=== PATIENT | female | born 1950 | race Caucasian/White ===

== ENCOUNTER → 2017-10-08 14:33 | Outpatient (CLI) | payer MEDICARE, SELFPAY ==
[2017-10-08 16:11] LABS: AST(SGOT) 20 U/L (15-37); Alanine Aminotransfer ALT/SGPT 29 U/L (13-56); Albumin, Serum 3.6 g/dL (3.2-5.0); Alkaline Phosphatase 128 U/L (45-117); Bilirubin, Direct 0.07 mg/dL (0.00-0.30); Cholesterol 209 mg/dL (200); Globulin 4.5 g/dL (2.2-4.2); High Density Lipoprotein 73 mg/dL; Protein, Total 8.1 g/dL (6.4-8.2); Triglycerides 96 mg/dL; Very Low Density Lipoprotein 19 mg/dL (5-40)
[2017-10-08 16:13] LABS: Hemoglobin A1c 5.5 % (4.2-6.3)
[2017-10-08 16:29] LABS: Microalbumin,Random Urine 5.8 mg/L (NO RANGE EST.); Microalbumin:Creatinine Ratio 27.1 mg/g CRE (<30 mg/g CRE)
== END ==
PROVIDERS: Family Provider Family Medicine; PCP Family Medicine; Visit Provider Family Medicine
DX: E11.9 Type 2 diabetes mellitus without complications (principal); I10 Essential (primary) hypertension
CPT/HCPCS: 36415; 80061; 80076; 82043; 82570; 83036

== ENCOUNTER 2017-10-14 15:57 | Emergency (ER) | payer MEDICARE, SELFPAY ==
[2017-10-14 15:58] VITALS: BP 160/87; PULSE 63; RESP 16; TEMP 36.4; O2SAT 97; BMI 51.8
--- NOTE | 2017-10-14 16:06 | VDLE_ITS ---
Reason For Study: LEG PAIN Procedure LEFT Exam performed portable in ED. GSV is normal. A preliminary report was called and/or faxed CFV is compressible, spontaneous, phasic, to Julieta Duran. competent, and demonstrates normal augmentation. FV is compressible, spontaneous, phasic, competent and demonstrates normal augmentation. POP V is compressible, spontaneous, phasic, competent and demonstrates normal augmentation. T/P Trunk is compressible. PTV is compressible. LT PerV is compressible. Interpretation Summary Deep veins of the left lower extremity are patent and compressible segmentally. There is no evidence of left lower extremity deep vein thrombosis. Valvular competence appears intact within the proximal deep venous system on the left . The left greater saphenous vein appears patent and compressible segmentally. Ordering Physician: William Rendon Referring Physician: Richa Daniels M.D. Performed By: Laila Velasco RVT
--- NOTE | 2017-10-14 16:45 | RAD_ITS ---
STUDY: X-RAY - LEFT KNEE REASON FOR EXAM: Female, 67 years old. Left knee pain. TECHNIQUE: 4 view(s) of the knee. COMPARISON: 03/22/2017. FINDINGS: Normal visualized distal femur. Normal visualized proximal tibia and fibula. Normal proximal tibiofibular articulation. There is no demonstrated fracture. Stable, satisfactory appearance of a total knee arthroplasty. No acute fracture, dislocation, or complication. There appears to be diffuse nonspecific soft tissue swelling including effusion. RAD/Knee 4 or More Views IMPRESSION: Soft tissue swelling and probable effusion. No acute fracture or dislocation. Electronically Signed: Black Grimaldo MD at 19:44 EDT , Service support ,
--- NOTE | 2017-10-14 16:45 | NURSING ---
NO LW OR POA
--- NOTE | 2017-10-14 17:01 | ED.DCSUM_ITS ---
- ER Visit Summary Date of Service: 10/14/17 Chief Complaint: Patient presents with left leg pain History of Present Illness: The patient is a 67 F who states that she began have pain in the left leg months ago. She states that she was attributed to a problem with her knee replacement. She states that now the leg is swollen. She states it hurts from the knee all the way down to her toes. She reports calling her doctor in being asked to come to the emergency room for duplex ultrasound. She states she has had a prior clot before. No recent trauma. She states she is allergic to all pain medications Physical Examination: Afebrile vital signs are stable Gen: Well-nourished well-developed Head: Normocephalic atraumatic Eyes: Perrl EOMI ENT: TMs clear no rhinorrhea moist mucous membranes Neck: Supple no lymphadenopathy no JVD nontender CVS: Regular rate rhythm no murmurs normal S1-S2 Respiratory: No distress clear to auscultation bilaterally chest nontender Abdomen: Soft nontender nondistended normal bowel sounds no masses Back: Nontender Extremity: Patient has significant adipose tissue of the bilateral legs. The ankles are of equal size bilaterally. There is no pitting edema. She has extensive varicosities but no cords. She complains of tenderness to palpation the knee inferiorly. There is a healed midline knee incision. Skin: Normal color no rash Neuro: alert orientated ?3 CN II-XII intact normal strength sensation reflexes Test Results: The films showed chronic changes. Duplex ultrasound was negative. Emergency Department Course and Treatment: She will be discharged home. Reassurance was given that we do not see a blood clot. Impression: 1. Left leg pain This note was generated with [employer] dictation software. It may contain incorrect words, spelling, and punctuation that were not noted in review of the chart prior to signing ED Disposition - Plan for ED Patient: Disposition: Home or Assisted Living Chief Complaint: Lower Extremity Injury Referrals: Richa Daniels MD [Primary Care Provider] - (call in am to arrange follow up appointment)
[2017-10-14 17:21] VITALS: BP 153/68; PULSE 58; RESP 16; O2SAT 94
== END 2017-10-14 17:21 | disposition home or self-care (01) ==
PROVIDERS: Emergency Provider Emergency Medicine; Family Provider Family Medicine; PCP Family Medicine
DX: M79.662 Pain in left lower leg (principal); I10 Essential (primary) hypertension; E78.00 Pure hypercholesterolemia, unspecified; J45.909 Unspecified asthma, uncomplicated; F32.9 Major depressive disorder, single episode, unspecified; F41.9 Anxiety disorder, unspecified; Z96.652 Presence of left artificial knee joint; Z79.01 Long term (current) use of anticoagulants; Z79.899 Other long term (current) drug therapy
CPT/HCPCS: 73564; 93971; 99284

== ENCOUNTER 2018-01-29 14:00 | Outpatient (RCR) | payer MEDICARE, SELFPAY ==
--- NOTE | 2017-10-16 11:31 | HP.PTEVAL_ITS ---
Patient's Visit Information SIERRA MORRISON is a 67 year old F referred to Physical Therapy by Richa Daniels MD with a diagnosis of OA. Date of Evaluation: 10/16/17 Physical Therapist: Miryam Osborn - Visit Plan Frequency: 2x /Week Duration: 6 Weeks Plan: 2X/ week for 6 weeks for AT for B hip and knee strength ( especially L), core stability, general mobility/strength, L knee ROM, gait training with HEP - Subjective Subjective: 20 years ago she had a L TKR and it slipped. She reports that she can not do the bike. It is painful all the time. She puts bengay on it and tylenol. She thinks that the swim therapy helped it last time and she could walk better and walk with a cane. She is not a surgery canidate. She had to stop swim therapy due to a hysterectomy. She reports that she has been on the walker for a long time. She reports that she does not do stairs. She has wide handicapped stairs that her walker fits on them at home. Her walking distance depends on the day/weather. She does all her housework except vaccum. She has a home health aide (3 hours homemaking and 2 showers a week). She would like to be able to get knee more limber and move better, lose weight, and get her whole body better. Pt has a lift chair. SHe has a roommate and they help each other. - Pain L knee pain Pain Intensity (Out of 10): 8 - Objective Gait: Walks with a front wheeled walker with WBOS, decreased heel to toe gait pattern, decreased stride length. LE MMT: hip flex B 2-/5, B knee ext 3+/5, B knee flex 4-/5, B hip abd 3+/5, able to do only a very small bridge and not even get off the ground completely. Pt struggles wtih sit to stand and needs her UE's to help her to stand. She struggles with rolling over from side to side. L knee AROM: -2 degrees from full extension to 75degrees L knee flexion. R knee AROM -2 degrees from full extension to 90 degrees R knee flexion. - Goals Goal 1:: I HEP Goal Time Frame: 4-6 Weeks Goal 2:: Decrease L knee pain to 2/10 with ADL's Goal Time Frame: 4-6 Weeks Goal 3:: Increase LE MMT by 1/2 muscle grade to decrease pain and increase ability to do ADL's Goal Time Frame: 4-6 Weeks - Rehabilitation Potential Rehabilitation Potential: Good - Anticipated Interventions Patient/Client Instruction: Educate patient on: Condition, Plan of Care For the Purpose of:: To decrease pain, To increase ROM, To improve nutrient delivery to tissue, To improve muscle performance and motor function, To improve ability to perform ADL's, To increase tolerance to activity/condition/ position, To improve performance and independence with ADL's, To improve ability of physical actions for home/community/work/leisure, To improve gait and locomotor functions, To improve health of tissue, To decrease soft tissue restriction, To increase flexibility/ROM Therapeutic Exercise to Include: Strength training, Endurance training, Flexibilty training, Gait and locomotor training, In an aquatic setting, Active ROM, Dynamic Lumbar Stabilization For the Purpose of:: To decrease pain, To decrease swelling/inflammation, To increase ROM, To improve nutrient delivery to tissue, To improve muscle performance and motor function, To improve ability to perform ADL's, To increase tolerance to activity/condition/position, To improve ability of physical actions for home/community/work/leisure, To improve gait and locomotor functions, To improve health of tissue, To decrease soft tissue restriction, To increase flexibility/ROM, To improve endurance, To improve safety with gait Thank you for the opportunity to evaluate your patient. For Medicare and Medicare HMO plans, please review the plan of care and approve it. It will need to be FAXED BACK to us at [phone] for Medicare purposes. Please let me know if there are questions or concerns regarding this plan of care. Physician Signature: Date:
--- NOTE | 2018-01-29 15:54 | HP.PTDCSUM_ITS ---
HP - PT D/C Summary It has been my pleasure to treat SIERRA MORRISON under orders from Richa Dnaiels MD, for the diagnosis of OA for a total of 10 visit(s). Discharge Date: 01/29/18 Please see the following information for a summary of their discharge status. 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 - Pain L knee pain Pain Intensity (Out of 10): 5 - Overall Improvement % Improvement: 100 - Objective Objective/Function: LE MMT: B Hip flex 4-/5, B knee ext 4-/5, B knee flex 4/5, seated hip abd B 4-/5. Gait: walks with a walker with flexed trunk, WBOS, shorter step lengthe and decrease stance time on the L LE - Goals Goal 1:: I HEP Goal Progress: Goal Met Goal 2:: Decrease L knee pain to 2/10 with ADL's Goal Progress: Progressing Goal 3:: Increase LE MMT by 1/2 muscle grade to decrease pain and increase ability to do ADL's Goal Progress: Progressing - Plan Plan: DC PT to [facility] to do I swimming. - D/C Information Discharge Comments: DC PT to [facility] AT If there are questions or concerns regarding this patient's physical therapy, please feel free to call me at [phone]. Thank you for the referral of this patient. Sincerely, Miryam Osborn
== END 2018-01-29 18:20 | disposition home or self-care (01) ==
LOC: PT 14:00
PROVIDERS: Family Provider Family Medicine; PCP Family Medicine; Visit Provider Family Medicine
DX: M19.90 Unspecified osteoarthritis, unspecified site (principal)
CPT/HCPCS: 97113; 97161; 97530

== ENCOUNTER → 2018-05-10 10:35 | Outpatient (CLI) | payer MEDICARE, SELFPAY ==
--- NOTE | 2018-05-10 10:37 | BI_ITS ---
MAMMOGRAPHY - BILATERAL SCREENING REASON FOR EXAM: Female, 68 years old. Routine annual screening examination. PERTINENT HISTORY: Sister with breast cancer. Remote right stereotactic breast biopsy. TECHNIQUE: Digital bilateral breast chanell (3D mammographic acquisition) in the CC and MLO projections. 2-D mediolateral oblique (MLO) and craniocaudad (CC) views of both breasts were obtained. CAD: Full Field Digital Mammography with Computer Added Detection was performed. COMPARISON: Comparison is made with prior study dated April 05, 2017 and April 03, 2016. FINDINGS: Breast Composition: The breasts are almost entirely fatty. There are no dominant masses or suspicious calcifications. No other significant abnormalities are identified. There has been no significant change since the prior study. BI/SCREENING MAMM (CAD), BILAT IMPRESSION: Stable bilateral screening mammogram. Yearly follow-up mammogram recommended. (A) ASSESSMENT CATEGORY: BIRADS Category 1: Negative. A letter regarding these results will be sent to the patient by the facility within 30 days. Approximately 10% of breast cancers are not detected by mammography. A normal mammogram should not delay biopsy of a clinically suspicious abnormality. [id number] Electronically Signed: Chapo Norman MD at 11:26 EST Tel [phone], Service support ,
--- OUTSIDE RECORDS SUMMARY | 2018-07-04 19:47 | XMS RPT_ITS ---
:1950 Author Organization OHIP Care Team Providers Name Role Phone Richa Daniels Attending Unavailable Richa Daniels Primary Care Unavailable Richa Daniels Attending Unavailable Jeremiah, Richa Primary Care Unavailable Richa Daniels Referring Unavailable Jeremiah, Richa Primary Care Unavailable William Rendon Attending Unavailable Panda Ulrich Attending Unavailable Panda Ulrich Referring Unavailable Richa Daniels Primary Care Unavailable PROBLEMS PROBLEMS DATE TYPE CONDITION / CODE ATTENDING STATUS SOURCE 01/29/2018 Unknown M19.90 - Richa Daniels Active [place] Unspecified Community osteoarthritis, Hospital unspecified site Repository / M19.90(ICD-10) PROCEDURES PROCEDURES No Procedure Records FoundRESULTS RESULTS SCREENING MAMM (CAD), Observed: 05/10/2018 Status: F Source: [place] BILAT 10:37 AM [facility] REPOSITORY [facility] Imaging Services [address] [place] [address] SCREENING MAMM (CAD), BILAT MR#: [id number] Acct: [id number] Name: ADRIENNE MORRISON Rep #: [id number] : 1950 F 68 From: Chapo Norman MD PCP: Richa Daniels MD Status: REG CLI Study: SCREENING MAMM (CAD), BILAT Date of Exam: 05/10/18 Exam# [id number] Ordering Dr: Panda Ulrich MD MAMMOGRAPHY - BILATERAL SCREENING REASON FOR EXAM: Female, 68 years old. Routine annual screening examination. PERTINENT HISTORY: Sister with breast cancer. Remote right stereotactic breast biopsy. TECHNIQUE: Digital bilateral breast chanell (3D mammographic acquisition) in the CC and MLO projections. 2-D mediolateral oblique (MLO) and craniocaudad (CC) views of both breasts were obtained. CAD: Full Field Digital Mammography with Computer Added Detection was performed. COMPARISON: Comparison is made with prior study dated April 05, 2017 and April 03, 2016. FINDINGS: Breast Composition: The breasts are almost entirely fatty. There are no dominant masses or suspicious calcifications. No other significant abnormalities are identified. There has been no significant change since the prior study. BI/SCREENING MAMM (CAD), BILAT IMPRESSION: Stable bilateral screening mammogram. Yearly follow-up mammogram recommended. (A) ASSESSMENT CATEGORY: BIRADS Category 1: Negative. A letter regarding these results will be sent to the patient by the facility within 30 days. Approximately 10% of breast cancers are not detected by mammography. A normal mammogram should not delay biopsy of a clinically suspicious abnormality. [id number] Electronically Signed: Chapo Norman MD at 11:26 EST Tel [phone], Service support , CC: Richa Daniels MD; Panda Ulrich MD Photoengraving Supervisor: Signed PT D/C SUMMARY (1) Observed: 01/29/2018 Status: F Source: [place] 6:17 PM [facility] [place] [facility] Physical Therapy Health[address] [place] [address] Fax REHABILITATION SERVICES DISCHARGE SUMMARY MR#: [id number] Acct: [id number] Name: ADRIENNE MORRISON Rep #: [id number] : 1950 67 From: Miryam ALSTON Referring Dr.: Richa Daniels MD Status: REG RCR Insurance: [facility] *IN NETWORK SELF PAY INSURANCE HP - PT D/C Summary It has been my pleasure to treat ADRIENNE MORRISON under orders from Richa Daniels MD, for the diagnosis of OA for a total of 10 visit(s). Discharge Date: 01/29/18 Please see the following information for a summary of their discharge status. 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 - Pain L knee pain Pain Intensity (Out of 10): 5 - Overall Improvement % Improvement: 100 - Objective Objective/Function: LE MMT: B Hip flex 4-/5, B knee ext 4- /5, B knee flex 4/5, seated hip abd B 4-/5. Gait: walks with a walker with flexed trunk, WBOS, shorter step lengthe and decrease stance time on the L LE - Goals Goal 1:: I HEP Goal Progress: Goal Met Goal 2:: Decrease L knee pain to 2/10 with ADL's Goal Progress: Progressing Goal 3:: Increase LE MMT by 1/2 muscle grade to decrease pain and increase ability to do ADL's Goal Progress: Progressing - Plan Plan: DC PT to [facility] to do I swimming. - D/C Information Discharge Comments: DC PT to [facility] AT If there are questions or concerns regarding this patient's physical therapy, please feel free to call me at [phone]. Thank you for the referral of this patient. Sincerely, Miryam Osborn <Electronically signed by Miryam Osborn MPT> 01/29/186 CC: Richa Daniels MD Signed INITAL EVALUATION (1) Observed: 10/16/2017 Status: F Source: [place] - [place] 12:52 PM [facility] [place] [facility] Physical Therapy Health[address] [place] [address] Fax REHABILITATION SERVICES INITIAL EVALUATION MR#: [id number] Acct: [id number] Name: ADRIENNE MORRISON Rep #: [id number] : 1950 67 From: Miryam Osborn MPT Referring Dr.: Richa Daniels MD Status: REG RCR Insurance: [facility] *IN NETWORK SELF PAY INSURANCE Patient's Visit Information ADRIENNE MORRISON is a 67 year old F referred to Physical Therapy by Richa Daniels MD with a diagnosis of OA. Date of Evaluation: 10/16/17 Physical Therapist: Miryam Osborn - Visit Plan Frequency: 2x /Week Duration: 6 Weeks Plan: 2X/ week for 6 weeks for AT for B hip and knee strength ( especially L), core stability, general mobility/strength, L knee ROM, gait training with HEP - Subjective Subjective: 20 years ago she had a L TKR and it slipped. She reports that she can not do the bike. It is painful all the time. She puts bengay on it and tylenol. She thinks that the swim therapy helped it last time and she could walk better and walk with a cane. She is not a surgery canidate. She had to stop swim therapy due to a hysterectomy. She reports that she has been on the walker for a long time. She reports that she does not do stairs. She has wide handicapped stairs that her walker fits on them at home. Her walking distance depends on the day/weather. She does all her housework except vaccum. She has a home health aide (3 hours homemaking and 2 showers a week). She would like to be able to get knee more limber and move better, lose weight, and get her whole body better. Pt has a lift chair. SHe has a roommate and they help each other. - Pain L knee pain Pain Intensity (Out of 10): 8 - Objective Gait: Walks with a front wheeled walker with WBOS, decreased heel to toe gait pattern, decreased stride length. LE MMT: hip flex B 2-/5, B knee ext 3+/5, B knee flex 4-/5, B hip abd 3+/5, able to do only a very small bridge and not even get off the ground completely. Pt struggles wtih sit to stand and needs her UE's to help her to stand. She struggles with rolling over from side to side. L knee AROM: -2 degrees from full extension to 75degrees L knee flexion. R knee AROM -2 degrees from full extension to 90 degrees R knee flexion. - Goals Goal 1:: I HEP Goal Time Frame: 4-6 Weeks Goal 2:: Decrease L knee pain to 2/10 with ADL's Goal Time Frame: 4-6 Weeks Goal 3:: Increase LE MMT by 1/2 muscle grade to decrease pain and increase ability to do ADL's Goal Time Frame: 4-6 Weeks - Rehabilitation Potential Rehabilitation Potential: Good - Anticipated Interventions Patient/Client Instruction: Educate patient on: Condition, Plan of Care For the Purpose of:: To decrease pain, To increase ROM, To improve nutrient delivery to tissue, To improve muscle performance and motor function, To improve ability to perform ADL's, To increase tolerance to activity/condition/position, To improve performance and independence with ADL's, To improve ability of physical actions for home/community/work/leisure, To improve gait and locomotor functions, To improve health of tissue, To decrease soft tissue restriction, To increase flexibility/ROM Therapeutic Exercise to Include: Strength training, Endurance training, Flexibilty training, Gait and locomotor training, In an aquatic setting, Active ROM, Dynamic Lumbar Stabilization For the Purpose of:: To decrease pain, To decrease swelling/inflammation, To increase ROM, To improve nutrient delivery to tissue, To improve muscle performance and motor function, To improve ability to perform ADL's, To increase tolerance to activity/condition/position, To improve ability of physical actions for home/community/work/leisure, To improve gait and locomotor functions, To improve health of tissue, To decrease soft tissue restriction, To increase flexibility/ROM, To improve endurance, To improve safety with gait Thank you for the opportunity to evaluate your patient. For Medicare and Medicare HMO plans, please review the plan of care and approve it. It will need to be FAXED BACK to us at [phone] for Medicare purposes. Please let me know if there are questions or concerns regarding this plan of care. Physician Signature: Date: <Electronically signed by Miryam Osborn MPT> 10/16/17 1252 CC: Richa Daniels MD Signed For Medicare only, by signing this I certify the plan of care. Physicians Signature Date VENOUS DUPLEX LOWER Observed: 10/15/2017 Status: F Source: [place] EXTREMITY 8:30 PM [facility] [place] [facility] Cardiovascular Services [address] [place] [address] Venous Duplex US, Unilateral 10/14/17 1629 MR#: [id number] Acct: [id number] Name: ADRIENNE MORRISON Rep #: [id number] : 1950 67 From: Jameel Vail MD Attending Dr: Status: DEP ER Ordering Dr: William Rendon DO Date: 10/14/17 Location: ED Sex: F C Admitted: Reason For Study: LEG PAIN Procedure LEFT Exam performed portable in ED. GSV is normal. A preliminary report was called and/or faxed CFV is compressible, spontaneous, phasic, to Julieta Duran. competent, and demonstrates normal augmentation. FV is compressible, spontaneous, phasic, competent and demonstrates normal augmentation. POP V is compressible, spontaneous, phasic, competent and demonstrates normal augmentation. T/P Trunk is compressible. PTV is compressible. LT PerV is compressible. Interpretation Summary Deep veins of the left lower extremity are patent and compressible segmentally. There is no evidence of left lower extremity deep vein thrombosis. Valvular competence appears intact within the proximal deep venous system on the left . The left greater saphenous vein appears patent and compressible segmentally. Ordering Physician: William Rendon Referring Physician: Richa Daniels M.D. Performed By: Laila Velasco RVT 10/15/172028 Date Jameel Vail MD CC: Richa Daniels MD; William Rnedon DO Date Dictated: 10/14/171628 Date Transcribed: 10/15/172028 Photoengraving Supervisor: Signed EMERGENCY DEPARTMENT Observed: 10/14/2017 Status: F Source: [place] SUMMARY 11:14 PM [facility] [place] [facility] Medical Records Department [address] [place] [address] Emergency Department Summary 10/14/17 1658 MR#: [id number] Acct: [id number] Name: ADRIENNE MORRISON Rep #: [id number] : 1950 67 From: William Rendon DO PCP: Richa Daniels MD Status: DEP ER - ER Visit Summary Date of Service: 10/14/17 Chief Complaint: Patient presents with left leg pain History of Present Illness: The patient is a 67 F who states that she began have pain in the left leg months ago. She states that she was attributed to a problem with her knee replacement. She states that now the leg is swollen. She states it hurts from the knee all the way down to her toes. She reports calling her doctor in being asked to come to the emergency room for duplex ultrasound. She states she has had a prior clot before. No recent trauma. She states she is allergic to all pain medications Physical Examination: Afebrile vital signs are stable Gen: Well-nourished well-developed Head: Normocephalic atraumatic Eyes: Perrl EOMI ENT: TMs clear no rhinorrhea moist mucous membranes Neck: Supple no lymphadenopathy no JVD nontender CVS: Regular rate rhythm no murmurs normal S1-S2 Respiratory: No distress clear to auscultation bilaterally chest nontender Abdomen: Soft nontender nondistended normal bowel sounds no masses Back: Nontender Extremity: Patient has significant adipose tissue of the bilateral legs. The ankles are of equal size bilaterally. There is no pitting edema. She has extensive varicosities but no cords. She complains of tenderness to palpation the knee inferiorly. There is a healed midline knee incision. Skin: Normal color no rash Neuro: alert orientated 3 CN II-XII intact normal strength sensation reflexes Test Results: The films showed chronic changes. Duplex ultrasound was negative. Emergency Department Course and Treatment: She will be discharged home. Reassurance was given that we do not see a blood clot. Impression: 1. Left leg pain This note was generated with Radario dictation software. It may contain incorrect words, spelling, and punctuation that were not noted in review of the chart prior to signing ED Disposition - Plan for ED Patient: Disposition: Home or Assisted Living Chief Complaint: Lower Extremity Injury Referrals: Richa Daniels MD [Primary Care Provider] - (call in am to arrange follow up appointment) What to do if you have Problems For any increased pain, shortness of breath, bleeding, nausea or vomiting, chest pain, or any unexpected problems, contact your Primary Care Provider. Call [facility] ([phone]) or report to the closest Emergency Room. Call 911 if necessary. 10/14/17 4177 <Electronically signed by William Rendon DO> Date William Rendon DO Cosigner Signature (If Indicated): Date CC: Richa Daniels MD KNEE 4 OR MORE Observed: 10/14/2017 Status: F Source: [place] RK 4:07 PM [facility] Imaging Services [address] [place] [address] Knee 4 or More Views MR#: [id number] Acct: [id number] Name: ADRIENNE MORRISON Rep #: [id number] : 1950 F 67 From: Balck Grimaldo MD PCP: Richa Daniels MD Status: DEP ER Study: Knee 4 or More Views Date of Exam: 10/14/17 Exam# [id number] Ordering Dr: William Rendon DO STUDY: X-RAY - LEFT KNEE REASON FOR EXAM: Female, 67 years old. Left knee pain. TECHNIQUE: 4 view(s) of the knee. COMPARISON: 03/22/2017. FINDINGS: Normal visualized distal femur. Normal visualized proximal tibia and fibula. Normal proximal tibiofibular articulation. There is no demonstrated fracture. Stable, satisfactory appearance of a total knee arthroplasty. No acute fracture, dislocation, or complication. There appears to be diffuse nonspecific soft tissue swelling including effusion. RAD/Knee 4 or More Views IMPRESSION: Soft tissue swelling and probable effusion. No acute fracture or dislocation. Electronically Signed: Black Grimaldo MD at 19:44 EDT , Service support , CC: Richa Daniels MD; William Rendon DO Photoengraving Supervisor: Signed LIVER PROFILE Collected: 10/08/2017 Status: F Source: [place] 3:09 PM [facility] [place] TYPE CODE TESTS RESULT OUT OF RANGE REFERENCE UNITS LAB L501.1500 6.4-8.2 g/dL Normal T PROT 8.1 LAB L501.1800 3.2-5.0 g/dL Normal ALB 3.6 LAB L501.1950 2.2-4.2 g/dL High GLOB 4.5 LAB L501.4100 15-37 U/L Normal AST 20 LAB L501.4305 45-117 U/L High ALK P 128 LAB L501.4405 13-56 U/L Normal ALT 29 LAB L501.4600 0.20-1.00 mg/dL Low T BILI 0.10 LAB L501.4700 0.00-0.30 mg/dL Normal D BILI 0.07 Performed By: #### L500.3400, L500.4100 #### [facility] [address] [facility] [place], [place], [id number] LIPID PROFILE Collected: 10/08/2017 Status: F Source: [place] 3:09 PM [facility] [place] TYPE CODE TESTS RESULT OUT OF RANGE REFERENCE UNITS LAB L501.4900 200 mg/dL High CHOL 209 Result Comment: <200 mg/dL Desirable 200-240 mg/dL Borderline >240 mg/dL High Risk LAB L501.5000 mg/dL Normal TRIG 96 Result Comment: The drugs N-Acetylcysteine and Metamizole may falsely depress this assay. Serum Triglycerides Reference Interval Normal <150 mg/dL Borderline high 150 - 199 mg/dL High 200 - 499 mg/dL Very High > or = 500 mg/dL LAB L501.6400 mg/dL Normal HDL 73 Result Comment: The drugs N-Acetylcysteine and Metamizole may falsely depress this assay. Reference Range HDL <40 mg/dL Low HDL Cholesterol HDL >or= 60 mg/dL High HDL Cholesterol LAB L501.6500 0-130 mg/dL Normal LDL 117 LAB L501.6600 5-40 mg/dL Normal VLDL 19 Performed By: #### L500.3400, L500.4100 #### [facility] [address] [facility] [place], [place], [id number] HEMOGLOBIN A1C Collected: 10/08/2017 Status: F Source: [place] 3:09 PM [facility] [place] [facility] TYPE CODE TESTS RESULT OUT OF RANGE REFERENCE UNITS LAB L501.9985 4.2-6.3 % Normal HGB A1C 5.5 Performed By: #### L501.9985 #### [facility] [address] [facility] [place], [place], [address] MICROALB:CREAT Collected: 10/08/2017 Status: F Source: [place] RATIO,RANDOM UR 3:09 PM [facility] [place] TYPE CODE TESTS RESULT OUT OF RANGE REFERENCE UNITS LAB L501.1200 NO RANGE EST. mg/dL Normal UR CREAT 21.40 LAB L502.0500 NO RANGE EST. mg/L Normal 5.8 MICROALBUMIN ,UR LAB L502.0600 <30 mg/g CRE mg/g CRE Normal 27.1 MALB:CREAT Performed By: #### L502.0250 #### [facility] [address] [place], [address] ALLERGIES ALLERGIES DATE TYPE / CODE NAME / CODE REACTION SEVERITY SOURCE 10/15/19 Drug hydrocodone Shortness of Unknown [place] 18 Allergy/579785430 bitartrate/[id number] breath Community (SNOMED CT) 5(RXNORM) Hospital Repository 10/15/19 Drug phenytoin sodium Shortness of Unknown [place] 18 Allergy/018332229 extended/N279382290( breath Community (SNOMED CT) RXNORM) Hospital Repository 10/15/19 Drug phenytoin Shortness of Unknown [place] 18 Allergy/176990857 sodium/T954747977(RX breath Community (SNOMED CT) NORM) Hospital Repository 10/15/19 Drug dextromethorphan Shortness of Unknown [place] 18 Allergy/096533732 HBr/O844864887(RXNOR breath Community (SNOMED CT) M) Hospital Repository 10/15/19 Drug phenylephrine Shortness of Unknown [place] 18 Allergy/595949743 HCl/F712706914(RXNOR breath Community (SNOMED CT) M) Hospital Repository 10/15/19 Drug pseudoephedrine Shortness of Unknown [place] 18 Allergy/669384174 HCl/H567766366(RXNOR breath Community (SNOMED CT) M) Hospital Repository 10/15/19 Drug Latex, Natural Shortness of Unknown [place] 18 Allergy/346737989 Rubber/Z178270304(RX breath Community (SNOMED CT) NORM) Hospital Repository 10/15/19 Drug guaifenesin/W3453038 Shortness of Unknown [place] 18 Allergy/809799494 24(RXNORM) breath Community (SNOMED CT) Hospital Repository 10/15/19 Drug iodine/N338605928(RX Anaphylaxis Unknown [place] 18 Allergy/131590818 NORM) Community (SNOMED CT) Hospital Repository 10/15/19 Drug diazepam/H305824769( Shortness of Unknown [place] 18 Allergy/263992376 RXNORM) breath Community (SNOMED CT) Hospital Repository 10/15/19 Drug morphine/L742125300( Shortness of Unknown [place] 18 Allergy/984116924 RXNORM) breath [facility] ([facility] [place]) Hospital Repository 10/15/19 Drug codeine/V802380136(R Shortness of Unknown [place] 18 Allergy/369787422 XNORM) breath [facility] ([facility]) Hospital Repository 10/15/19 Drug soap/W924116496(RXNO blisters Unknown [place] 18 Allergy/128973057 RM) [facility] ([facility] [place]) Hospital Repository 10/15/19 Drug povidone-iodine/F006 blisters Unknown [place] 18 Allergy/761840129 898313(RXNORM) [facility] ([facility]) Hospital Repository 10/15/19 Miscellaneous ANTI-INFLAMMATORY Shortness of Unknown [place] 18 Allergy/703504531 DRUGS breath [facility] ([facility]) Hospital Repository 10/15/19 Miscellaneous BANANA PEELS Shortness of Unknown [place] 18 Allergy/898500516 breath [facility] ([facility]) Hospital Repository 10/15/19 Miscellaneous PASSION FRUIT Shortness of Unknown [place] 18 Allergy/704946876 breath [facility] ([facility]) Hospital Repository 10/15/19 Miscellaneous SLEEPING PILLS Shortness of Unknown [place] 18 Allergy/300512756 breath [facility] ([facility]) Hospital Repository 10/15/19 Miscellaneous muscle relaxers Shortness of Unknown [place] 18 Allergy/414304496 breath [facility] ([facility]) Hospital Repository ENCOUNTERS ENCOUNTERS ADMIT/DISCHARGE ACCOUNT ADMITTING ENCOUNTER LOCATION SOURCE NUMBER CLASS 05/10/2018 [id number] Ambulatory [place] 6 [facility] ing:OPBI Repository 01/29/2018/ [id number] Ambulatory [place] 0 [facility] ing:PT Repository 10/14/2017/ [id number] Emergency [place] 8 4 [facility] ing:ED Repository 10/08/2017 [id number] Ambulatory [place] 9 [facility] ing:MFPLAB Repository PAYERS PAYERS ENCOUNTER GUARANTOR PAYER SUBSCRIBER SOURCE 05/10/2018 ADRIENNE Sauceda Primary ADRIENNE [id number] Insurance:MYC[employer] CRSC MARTONDOB: Community MCCRACKEN *[place] [facility] [id number]: Repository [address]Sao: 330 [id number] [phone] () Date:[id number] [place]S [address] [address]AR: 05/10/2018 Secondary NOT GIVENUNK [place] Insurance:SELF PAY [facility] Number: Effective Repository Date:2018-04-01 01/29/2018 Adrienne J Primary Adrienne J [place] [id number] Insurance:MYC[employer] CRSC MartonDOB: Community Mccracken *[place] [facility] [id number] Number: Repository [address]Qeb: 330 [id number] [phone] () Date:[id number] CLAIMS [address], [place] [address]LE: 01/29/2018 Secondary NOT GIVENUNK [place] Insurance:SELF PAY [facility] Number: Effective Repository Date:2017-10-09 10/14/2017 Adrienne J Primary Adrienne J [place] [id number] Insurance:MYCARE CRSC MartonDOB: Community Mccracken *IN [facility] [id number] Number: Repository [address]Nie: 330 [id number] [phone] () Date:[id number] CLAIMS [address], [place] [address]EB: 10/14/2017 Secondary NOT GIVENUNK [place] Insurance:SELF PAY [facility] Number: Effective Repository Date:2017-10-14 10/08/2017 Adrienne J Primary Adrienne J [place] [id number] Insurance:MYCARE CRSC MartonDOB: Community Mccracken *IN [facility] [id number] Number: Repository [address]Plb: 330 [id number] [phone] (HP) Date:[id number] CLAIMS [address], [place] [address]PR: 10/08/2017 Secondary NOT GIVENUNK [place] Insurance:SELF PAY [facility] Number: Effective Repository Date:2017-10-08
== END ==
PROVIDERS: Family Provider Family Medicine; PCP Family Medicine; Referring Provider Obstetrics & Gynecology; Visit Provider Obstetrics & Gynecology
DX: Z12.31 Encounter for screening mammogram for malignant neoplasm of breast (principal)
CPT/HCPCS: 77063; 77067

== ENCOUNTER → 2018-07-11 20:00 | Outpatient (CLI) | payer MEDICARE, SELFPAY | PROVIDERS: Family Provider Family Medicine; PCP Family Medicine; Referring Provider Family Medicine; Visit Provider Family Medicine | DX: G47.33 Obstructive sleep apnea (adult) (pediatric) (principal) | CPT/HCPCS: 95810 ==

== ENCOUNTER → 2018-08-05 20:06 | Outpatient (CLI) | payer MEDICARE, SELFPAY | PROVIDERS: Family Provider Family Medicine; PCP Family Medicine; Referring Provider Nurse Practitioner Acute Care; Visit Provider Nurse Practitioner Acute Care | DX: G47.33 Obstructive sleep apnea (adult) (pediatric) (principal) | CPT/HCPCS: 95811 ==

== ENCOUNTER → 2018-08-07 13:40 | Outpatient (CLI) | payer MEDICARE, SELFPAY ==
--- NOTE | 2018-08-07 13:50 | BD_ITS ---
STUDY: DUAL ENERGY X-RAY ABSORPTIOMETRY / DXA REASON FOR EXAM: Female, 68 years old. The patient is postmenopausal. Loss of height. TECHNIQUE: Bone Mineral Density (BMD) measurements of lumbar spine and bilateral hips were obtained. COMPARISON: Comparison is made with prior study dated October 25, 2010. FINDINGS: Lumbar Spine (L1-L4): g/cm2 (1.252) / T-score (0.4) / Z-score (2.1) Findings are suggestive of normal bone density with a low fracture risk. Left Femur Total: g/cm2 (0.825) / T-score (-1.4) / Z-score (0.0) Left Femoral Neck: g/cm2 (0.806) / T-score (-1.7) / Z-score (0.0) Right Femur Total: g/cm2 (0.889) / T-score (-0.9) / Z-score (0.5) Right Femoral Neck: g/cm2 (0.848) / T-score (-1.4) / Z-score (0.3) The T-Scores on the most recent prior examination were: Lumbar Spine (L1-L4): There has been improvement of bone density since the previous examination. Left Femur Total: which represents a worsening of 6.9%. Right Femur Total: which represents a worsening of 11.1%. BD/Dexa Bone Density Study IMPRESSION: The patient is considered osteopenic as outlined below according to World Ian Organization (WHO) criteria with a moderate fracture risk. There has been worsening of bone density since the previous examination. Reference Information: The T-score is the number of standard deviations above or below the standard which is normal for young adults at their peak bone mineral density. The World Health Organization (WHO) interprets the T-scores as follows: Above -1 Normal bone density Between -1 and -2.5 Osteopenia Equal to / or below -2.5 Osteoporosis As a practical clinical guideline, osteopenia may be graded as follows: Mild -1 through -1.5 Moderate -1.6 through -2.0 Severe -2.1 through -2.4 The Z-score is the number of standard deviations above or below age-matched controls. A Z-score of less than -1.5 would be considered abnormal. References: 1. NIH Osteoporosis and Related Bone Diseases http://www.osteo.org 2. International Society for Clinical Densitometry http://www.iscd.org 3. National Osteoporosis Foundation http://www.nof.org Electronically Signed: Chapo Norman, at 15:52 EST , Service support ,
== END ==
PROVIDERS: Family Provider Family Medicine; PCP Family Medicine; Referring Provider Family Medicine; Visit Provider Family Medicine
DX: N95.9 Unspecified menopausal and perimenopausal disorder (principal)
CPT/HCPCS: 77080

== ENCOUNTER → 2018-10-14 15:32 | Outpatient (CLI) | payer MEDICARE, SELFPAY ==
[2018-10-07 08:50] VITALS: BMI 52.3
[2018-10-14 17:54] LABS: Anion Gap 6 (5-15); BUN 21 mg/dL (7-18); BUN/Creat Ratio 29.2 RATIO (10-20); Calcium,Total 9.2 mg/dL (8.5-10.1); Chloride 101 mmol/L (98-107); Cholesterol 216 mg/dL (200); Creatinine, Serum 0.72 mg/dL (0.55-1.02); EST Glomerular Filtration Rate 85 mL/min (>60); Est Glom Filt Rate - Afr Amer 103 mL/min (>60); Glucose 100 mg/dL (74-106); High Density Lipoprotein 90 mg/dL; Potassium 4.1 mmol/L (3.5-5.1); Sodium Level 139 mmol/L (136-145); Triglycerides 64 mg/dL; Very Low Density Lipoprotein 13 mg/dL (5-40)
== END ==
PROVIDERS: Family Provider Family Medicine; PCP Family Medicine; Referring Provider Family Medicine; Visit Provider Family Medicine
DX: I10 Essential (primary) hypertension (principal)
CPT/HCPCS: 36415; 80048; 80061

== ENCOUNTER → 2019-05-12 14:21 | Outpatient (CLI) | payer MEDICARE, SELFPAY ==
[2018-12-18 10:13] VITALS: BMI 53.6
--- NOTE | 2019-05-12 14:24 | BI_ITS ---
MAMMOGRAPHY - BILATERAL SCREENING REASON FOR EXAM: Female, 69 years old. Routine annual screening examination. PERTINENT HISTORY: Sister with breast cancer. TECHNIQUE: Digital bilateral breast rebecca (3D mammographic acquisition) in the CC and MLO projections. 2-D mediolateral oblique (MLO) and craniocaudad (CC) views of both breasts were obtained. CAD: Full Field Digital Mammography with Computer Added Detection was performed. COMPARISON: Comparison is made with prior examination dated May 10, 2018 and April 05, 2017. FINDINGS: Breast Composition: The breasts are almost entirely fatty. There are no dominant masses or suspicious calcifications. No other significant abnormalities are identified. There has been no significant change since the prior study. BI/SCREEN MAMM (CAD) W/REBECCA BILAT IMPRESSION: Stable bilateral screening mammogram. Yearly follow-up mammogram recommended. (A) ASSESSMENT CATEGORY: BIRADS Category 1: Negative. A letter regarding these results will be sent to the patient by the facility within 30 days. Approximately 10% of breast cancers are not detected by mammography. A normal mammogram should not delay biopsy of a clinically suspicious abnormality. [id number] Electronically Signed: Chapo Norman, at 8:28 EST , Service support ,
== END ==
PROVIDERS: Family Provider Family Medicine; PCP Family Medicine; Referring Provider Obstetrics & Gynecology; Visit Provider Obstetrics & Gynecology
DX: Z12.31 Encounter for screening mammogram for malignant neoplasm of breast (principal); Z80.3 Family history of malignant neoplasm of breast
CPT/HCPCS: 77063; 77067

== ENCOUNTER → 2020-01-01 08:29 | Outpatient (CLI) | payer MEDICARE, SELFPAY ==
[2020-01-01 08:28] VITALS: BMI 49.1
--- NOTE | 2020-01-01 08:30 | RAD_ITS ---
STUDY: X-RAY - LEFT KNEE REASON FOR EXAM: Female, 69 years old. PAIN, NO INJURY TECHNIQUE: 6 view(s) of the knee. 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 In one of the AP films, there is suggestion of lateral subluxation of the tibia relative to the femur but in another AP view there is anatomic alignment of the replaced knee joint. On the lateral views, there is suspicious lucency anterior and posterior to the tibial component of the replaced knee joint concerning for infection or loosening. The lucencies were present but very subtle on the previous study and are much more conspicuous now. Additionally, there is extensive soft tissue swelling and joint effusion. RAD/Knee 4 or More Views IMPRESSION: Abnormal lucency has developed around the anterior and posterior aspects of the tibial component of the replaced knee joint. This is concerning for infection or loosening. It has worsened and become more conspicuous when compared to the previous study Extensive soft tissue swelling with joint effusion No demonstrated fracture On the initial AP film there is lateral subluxation of the tibia relative to the femur but on the other AP image there is anatomic alignment. Electronically Signed: Saeed Marcelo MD at 11:53 EDT , Service support ,
== END ==
PROVIDERS: PCP Family Medicine; Referring Provider Orthopaedic Surgery; Visit Provider Orthopaedic Surgery
DX: M25.562 Pain in left knee (principal); Z96.652 Presence of left artificial knee joint
CPT/HCPCS: 73564

== ENCOUNTER → 2020-08-11 10:47 | Outpatient (CLI) | payer MEDICARE, MEDICAID, SELFPAY ==
[2019-06-16 08:50] VITALS: BMI 52.7
[2020-01-01 10:02] VITALS: BMI 52.7
--- NOTE | 2020-08-11 10:49 | BI_ITS ---
MAMMOGRAPHY - BILATERAL SCREENING REASON FOR EXAM: Female, 70 years old. Routine annual screening examination. PERTINENT HISTORY: Sister with breast cancer. Remote right stereotactic breast biopsy. TECHNIQUE: Digital bilateral breast rebecca (3D mammographic acquisition) in the CC and MLO projections. 2-D mediolateral oblique (MLO) and craniocaudad (CC) views of both breasts were obtained. CAD: Full Field Digital Mammography with Computer Added Detection was performed. COMPARISON: Comparison is made with prior study dated 05/12/2019 and 05/10/2018. FINDINGS: Breast Composition: The breasts are almost entirely fatty. There are no dominant masses or suspicious calcifications. No other significant abnormalities are identified. There has been no significant change since the prior study. BI/SCRN MAMM (CAD)W/REBECCA BILAT IMPRESSION: Stable bilateral screening mammogram. Yearly follow-up mammogram recommended. (A) ASSESSMENT CATEGORY: BIRADS Category 1: Negative. A letter regarding these results will be sent to the patient by the facility within 30 days. Approximately 10% of breast cancers are not detected by mammography. A normal mammogram should not delay biopsy of a clinically suspicious abnormality. [id number] Electronically Signed: Chapo Norman MD at 11:49 EST , Service support ,
== END ==
PROVIDERS: PCP Family Medicine; Referring Provider Family Medicine; Visit Provider Family Medicine
DX: Z12.31 Encounter for screening mammogram for malignant neoplasm of breast (principal); Z80.3 Family history of malignant neoplasm of breast
CPT/HCPCS: 77063; 77067

== ENCOUNTER 2020-08-16 13:30 | Outpatient (RCR) | payer MEDICARE, SELFPAY ==
[2020-01-01 10:02] VITALS: BMI 52.7
[2020-08-16] MEDS: COVID-19 VACC, MRNA(PFIZER)/PF 30 MCG/0.3 ML SYRINGE IM (12:02)
[2020-09-06] MEDS: COVID-19 VACC, MRNA(PFIZER)/PF 30 MCG/0.3 ML SYRINGE IM (12:06)
== END 2020-11-15 23:59 ==
LOC: IMMUN 13:30
PROVIDERS: PCP Family Medicine; Visit Provider Family Medicine
DX: Z23 Encounter for immunization (principal)
CPT/HCPCS: 0001A; 0002A; 91300

== ENCOUNTER → 2020-10-18 11:20 | Outpatient (CLI) | payer MEDICARE, SELFPAY ==
[2020-01-01 10:02] VITALS: BMI 52.7
[2020-10-18 15:46] LABS: AST(SGOT) 13 U/L (15-37); Alanine Aminotransfer ALT/SGPT 26 U/L (13-56); Anion Gap 4 (5-15); BUN 21 mg/dL (7-18); BUN/Creat Ratio 33.9 RATIO (10-20); Chloride 103 mmol/L (98-107); Cholesterol 198 mg/dL (200); Creatinine, Serum 0.62 mg/dL (0.55-1.02); EST Glomerular Filtration Rate 101 mL/min (>60); Est Glom Filt Rate - Afr Amer 122 mL/min (>60); Glucose 88 mg/dL (74-106); High Density Lipoprotein 80 mg/dL; Potassium 3.7 mmol/L (3.5-5.1); Sodium Level 136 mmol/L (136-145); T4 Total, Thyroxin 10.4 ug/dL (4.8-13.9); Thyroid Stim Hormone (TSH) 1.83 uIU/mL (0.358-3.74); Triglycerides 75 mg/dL; Very Low Density Lipoprotein 15 mg/dL (5-40)
== END ==
PROVIDERS: PCP Family Medicine; Referring Provider Family Medicine; Visit Provider Family Medicine
DX: E03.9 Hypothyroidism, unspecified (principal); E78.00 Pure hypercholesterolemia, unspecified; I10 Essential (primary) hypertension
CPT/HCPCS: 36415; 80048; 80061; 84436; 84443; 84450; 84460

== ENCOUNTER 2020-12-19 11:22 | Day surgery (SDC) | payer MEDICARE, MEDICAID, SELFPAY ==
[2020-01-01 10:02] VITALS: BMI 52.7
--- NOTE | 2020-12-19 11:53 | PCM.HP.BLA ---
History and Physical Date of Admission: 12/19/20 HISTORY AND PHYSICAL ? Adrienne Garcia 1950 ? REFERRING PHYSICIAN: Kam, ? CHIEF COMPLAINT: Consult (Colonoscopy) ? HPI: The patient is a 70 year old female referred for endoscopy. She had a Cologuard test completed through her primary care physician which was positive, prompting this referral. Adrienne notes no colon complaints. Patient denies any change in bowel habits, weight changes, visible blood in stools, black tarry stools or abdominal pain. NOTES family history of colon cancer-brother. ? The patient NOTES frequent acid reflux, although she states this is improved a little recently with watching what she eats. ? Adrienne has undergone prior endoscopy. She had colonoscopy by Dr. Camarena 10/04/14 which showed diverticulosis with otherwise normal colon. 5 year repeat colonoscopy was recommended based on her family history. She had an EGD 01/30/[address] Lim, and an inflammatory polyp was noted on colonoscopy in 2009. ? Patient's past medical history is significant for COPD, asthma, TIAs, diabetes mellitus, seizures, hypertensive heart disease. Patient follows with Dr. Daniels for her chronic medical conditions. Patient is maintained on multiple routine medications including clonazepam, lorazepam, phenobarbital. She is also on clopidogrel which she notes she has been allowed to hold prior to multiple procedures in the past. The patient has had prior endoscopies performed under conscious sedation, states was on same medications including above when those were completed. She notes I was awake and watched the procedures but states tolerated these without discomfort. ? ? PAST MEDICAL HISTORY PAST MEDICAL HISTORY Diagnosis Date ? Benign hypertensive heart disease ? ? Benign neoplasm of colon ? ? COPD (chronic obstructive pulmonary disease) (HCC) ? ? Diabetes mellitus without mention of complication ? ? Diverticulosis of colon (without mention of hemorrhage) ? ? Esophagitis, unspecified ? ? Family history of malignant neoplasm of gastrointestinal tract ? ? Glaucoma ? ? Osteopenia ? ? PMH - PAST MEDICAL HISTORY OF ? ? Seizures ? Schizophrenia (HCC) ? ? 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 Stroke (cerebrum) (HCC) ? ? Unspecified asthma(493.90) ? ? ? PAST SURGICAL HISTORY PAST SURGICAL HISTORY Procedure Laterality Date ? COLONOSCOP W/ OR W/O BRSH SPEC ? 05/09/2005 ? Colonoscopy ? COLONOSCOP W/ OR W/O BRSH SPEC ? 10/04/2014 ? Colonoscopy ? COLONOSCOPY W/BX ? 05/17/2010 ? D&C, DIAG AND/OR THERAPEUTIC ? ? ? Dilation & curettage ? EGD W/O [facility] SPECIMEN W/BX ? 01/30/2012 ? KNEE SCOPE,DIAGNOSTIC ? ? ? Arthroscopy, knee ? REMOVAL GALLBLADDER ? ? ? REMOVE TONSILS/ADENOIDS,<12 Y/O ? ? ? STROKE PROFILE ? CURRENT MEDICATIONS Current Outpatient Medications Medication Sig ? escitalopram oxalate (LEXAPRO) 20 mg tablet Take 20 mg by mouth once daily. ? NIFEdipine XL (ADALAT CC) 90 mg 24 hr tablet Take 90 mg by mouth once daily. ? fluticasone (FLOVENT HFA) 220 mcg/actuation inhaler Inhale 2 Puffs as instructed twice daily. ? Cholecalciferol, Vitamin D3, 2,000 unit cap Take 1 capsule by mouth once daily. ? cetirizine (ZYRTEC) 10 mg tablet Take 10 mg by mouth once daily. ? metoprolol succinate XL, long acting, (TOPROL XL) 100 mg Tb24 Take 1 tablet by mouth twice daily. ? clopidogrel (PLAVIX) 75 mg tablet Take 1 tablet by mouth once daily. ? clonazePAM (KLONOPIN) 1 mg tablet Take 1 tablet by mouth four times daily. ? LORazepam (ATIVAN) 0.5 mg Tab Take 1 tablet by mouth three times daily as needed. ? lovastatin (MEVACOR) 20 mg ORAL tablet Take one(1) tablet daily. ? paliperidone (INVEGA) 6 mg ORAL 24 hr tablet one tab at HS ? omeprazole magnesium(PRILOSEC OTC 20 MG TAB) Take one(1) tablet twice daily. ? OXYGEN-AIR DELIVERY SYSTEMS DEVICE as directed ? PHENOBARBITAL 60 MG TAB three in the am & two at night ? LEVOTHYROXINE SODIUM 300 MCG TAB Take one(1) tablet daily. ? THERAPEUTIC MULTIVITAMIN TAB Take one(1) tablet daily. ? HYDROCHLOROTHIAZIDE 25 MG TAB Take one(1) tablet daily. ? SINGULAIR 10 MG TAB Take one(1) tablet daily. ? No current facility-administered medications for this visit. ? ? ALLERGIES: Morphine, Banana Peel [Other], Codeine, Dilantin [Phenytoin], Latex, Pain Killers [Other], Passion Fruit [Other], Shellfish, Sleeping Pills [Other], Steroids [Betamethasone Dipropionate], Tylenol Cold [Zqe-Zknnegdtc-Nc-Acetaminophen], Valium [Diazepam], and Vicodin [Hydrocodone-Acetaminophen] ? PERSONAL HISTORY: SOCIAL HISTORY Social History ? Tobacco Use ? Smoking status: Never Smoker Substance Use Topics ? Alcohol use: No ? Drug use: Not on file ? FAMILY HISTORY: FAMILY HISTORY FAMILY HISTORY Problem Relation Age of Onset ? Heart Mother ? ? HTN,DM,RAPID HEART BEAT ? Emphysema Father ? ? HEART ? Colon Cancer Brother ? ? other (HTN [Other]) Sister ? ? HEART, DIABTES ? other (Other [Other]) Unknown ? ? all siblings have had colon polyps. ? Colon Cancer Sister ? ? ? REVIEW OF SYMPTOMS: The review of systems data was entered by the nurse and reviewed by me ? Nursing Notes: Jessie Casillas LPN 11/23/2020 3:34 PM Signed REVIEW OF SYSTEMS: General: The patient denies fatigue, denies weight loss, denies weight gain, denies feeling hot, and denies feelings of cold. Eyes: The patient denies glaucoma, denies eye injury/surgery, does not wear glasses or contacts. Ear/Nose/Throat: The patient denies allergies, denies hayfever, denies ear infections, and denies bloody noses. Cardiovascular: The patient denies chest pain, denies heart disease, NOTES high blood pressure,denies cardiac stent, denies prior heart attack, denies irregular heart beat, denies high cholesterol, denies poor circulation, denies heart failure, other cardiac issues, NOTES claudication, denies cold feet, denies peripheral arterial stent. Respiratory: The patient denies tuberculosis, denies pneumonia, denies frequent cough, denies pulmonary embolism, denies shortness of breath, and denies coughing up blood. Gastrointestinal: The patient denies difficulty swallowing, denies acid reflux, denies ulcers, denies vomiting, denies jaundice/hepatitis, denies gallbladder problems, denies black or tarry stools, denies hemorrhoids, denies bleeding from rectum, NOTES diverticulitis, denies constipation, denies diarrhea, denies loss of stool control, and denies hernias. Kidney/Bladder: The patient denies kidney stones, denies urine infections, and denies bloody urine. Skin: The patient denies a history of skin cancer, denies bleeding/changing moles, and denies a history of skin rash. Neurologic: The patient denies a history of epilepsy/convulsions, denies headaches, denies head/spinal injuries, and NOTES stroke/TIA. Psychiatric: The patient NOTES psychiatric medications, NOTES depression, and denies voices, denies substance abuse. Endocrine: The patient NOTES thyroid disorders, denies diabetes, and denies hormonal problems. Hematologic: The patient denies a history of bruising, denies bleeding, and denies anemia, denies blood clots. Infections: The patient NOTES a history of measles and mumps, denies rheumatic fever, and denies sexually transmitted diseases. Musculoskeletal: The patient denies back pain/injury, denies back problems, denies sciatica, denies knee/foot trouble, NOTES arthritis, or denies gout. ? ? When was patient's last Mammogram screening? 09/2020 ? Last Colonoscopy: 09/2014 ? Jessie Casillas LPN I have confirmed and edited as necessary, the PFSH and ROS obtained by others. PHYSICAL EXAMINATION: ? General: The patient is 70 year old female, well nourished, well hydrated in no acute distress. The patient is oriented to time, place, and person. Patient ambulates with assistance of walker ? VITALS: Blood pressure 134/72, pulse 74, temperature 36.5 ?C (97.7 ?F), height 154.9 cm (5' 1), weight 117.9 kg (260 lb), SpO2 96 %. Body mass index is 49.13 kg/m?. ? HEENT: Normal cephalic, ataumatic, pupils are equally round, sclera are anicteric, mucous membranes are moist, oropharynx is clear. Neck has no masses, asymmetry or lymphadenopathy. ? Respiratory: Clear to auscultation and percussion. Normal respiratory excursion and pattern. ? Cardiac: Examination is regular rate and rhythm. Normal S1/S2 ? Abdominal exam: Soft, nontender, with no palpable masses. No hepatosplenomegaly. No palpable hernias. ? Extremities: no clubbing, cyanosis or edema. No adenopathy. ? LABORATORY VALUES: As Noted ? RADIOLOGIC STUDIES: As Noted ? ? Assessment IMPRESSION: positive Cologuard. Acid reflux. Personal history of colon polyp and family history of colon cancer ? PLAN: Patient requesting Dr. Taylor for procedure. I have reviewed my findings with Dr. Taylor, who also participated in development of the following plan. Will plan for upper and lower endoscopy, with Monitored Anesthetic Care. Patient requesting to have procedures completed at [facility], states will not travel to [facility]. We discussed the risks and benefits of the planned endoscopy. I have informed the patient that complications can occur including failure to complete the endoscopy and perforation. The patient had the opportunity to ask questions concerning the planned endoscopy. My staff has also explained the procedure to the patient in understandable terms and has given the patient printed material concerning the procedure. The patient freely consents to surgery. ? The patient was offered a surgery/procedure at a [facility] facility. I have counseled the patient regarding the risk of exposure to and/or potential harm posed by the COVID-19 virus with having a surgery/procedure at this time versus the risk of? delaying the surgery/procedure. It is not possible to know either the risk of delaying the surgery or procedure or chance of getting an infection with perfect accuracy, but a joint decision was made between the patient and myself?to proceed at this time with endoscopy. ? Dr. Taylor has instructed for the patient to hold her Plavix for 5 days prior to endoscopy ? I plan to use Miralax bowel preparation ? Patient instructed to contact PCP for instructions regarding diabetic medication, which may require adjustment during bowel preparation and/or day of procedure ? ? The patient has medical comorbidities for which we will plan for the procedure to be performed under Monitored Anesthetic Care. The patient takes prescription medications which I feel decrease the chance of successful sedation, therefore we will plan for procedure to be done under Monitored Anesthetic Care. ? ? ? Diagnoses: (R19.5) Positive colorectal cancer screening using Cologuard test (primary encounter diagnosis) (K21.9) Gastroesophageal reflux disease, unspecified whether esophagitis present (J44.9) Chronic obstructive pulmonary disease, unspecified COPD type (HCC) ? I spent a total of 45 minutes on the date of the service which included preparing to see the patient, ipfk-ad-dood patient care, completing clinical documentation, obtaining and/or reviewing separately obtained history, performing a medically appropriate examination, counseling and educating the patient/family/caregiver, ordering medications, tests, or procedures and communicating with other HCPs (not separately reported). ? ? Dia Alfaro PA-C I have re-examined the patient. There are no clinical changes since date of exam.
[2020-12-19 12:10] VITALS: BP 167/74; PULSE 62; RESP 16; TEMP 36.4; O2SAT 96; BMI 47.6
[2020-12-19] MEDS: Lactated Ringers 1,000 ML 100 ML IV (12:36)
[2020-12-19 12:41] LABS: Bedside Glucose 108 mg/dL (70-110)
--- NOTE | 2020-12-19 12:45 | COLBX_PTH ---
PATIENT: SIERRA MORRISON LOC: EN U#:[id number] AGE/SX: 70/F ROOM: RE12/19/[address]: Dr. William Taylor MD : 1950 BED: DIS: 12/19/2020 SPEC #: [id number] RECD: 12/19/20 13:31 STATUS: NASIMA IYER #: [id number] EUSEBIO: 12/19/20 12:[address]: William Taylor DEPT: SURGICAL PATHOLOGY RECD BY: Bella Alexis ENTERED: 12/20/20 08:25 SP TYPE: COLON BX OTHR DR: Dr. Richa Daniels MD Tissues: Rectum, NOS Procedures: Surgery Specimen Level IV HEADER OPERATION: Colonoscopy, EGD ([facility]) PRE-OP DIAGNOSIS: Positive Cologuard, acid reflux, history of colon polyp, family history colon cancer TISSUE SUBMITTED: Rectal biopsy MICROSCOPIC DIAGNOSIS Rectum, biopsy: Minimal acute inflammation. See comment. AM:zain 12/21/2020 COMMENT There is focal cryptitis identified with rare neutrophils in glandular epithelium. Crypt abscesses, ulcers or transmural lymphoid aggregates are not identified. There is no evidence of malignancy. Clinical correlation is suggested. MICROSCOPIC DESCRIPTION Slides are reviewed. GROSS DESCRIPTION Received in fixative is one container labeled with the patient's name and designated rectal biopsy. The specimen consists of two irregular fragments of light hdz soft tissue that in aggregate measure 0.6 x 0.5 x 0.1 cm. The specimen is totally submitted in one cassette. / AM:zain 12/20/20 TC:2 CPT: 67499
--- NOTE | 2020-12-19 13:19 | OP.EGD_ITS ---
Patient Name: Adrienne Garcia Procedure Date: 12/19/2020 12:41 PM Date of : 1950 Age: 70 Procedure: Upper GI endoscopy Indications: positive cologuard test Providers: William Taylor MD Medicines: See the Anesthesia note for documentation of the administered medications Patient Profile: This is a 70 year old female. Refer to note in patient chart for documentation of history and physical. Complications: No immediate complications. Procedure: Pre-Anesthesia Assessment: - Prior to the procedure, a History and Physical was performed, and patient medications and allergies were reviewed. The patient's tolerance of previous anesthesia was also reviewed. The risks and benefits of the procedure and the sedation options and risks were discussed with the patient. All questions were answered, and informed consent was obtained. Prior Anticoagulants: The patient has taken no previous anticoagulant or antiplatelet agents. ASA Grade Assessment: III - A patient with severe systemic disease. After reviewing the risks and benefits, the patient was deemed in satisfactory condition to undergo the procedure. After obtaining informed consent, the endoscope was passed under direct vision. Throughout the procedure, the patient's blood pressure, pulse, and oxygen saturations were monitored continuously. The gastroscope was introduced through the mouth, and advanced to the second part of duodenum. The upper GI endoscopy was accomplished without difficulty. The patient tolerated the procedure well. Scope In: 12:56:17 PM Scope Out: 12:57:57 PM Total Procedure Duration Time 0 hours 1 minute 40 seconds Findings: The examined esophagus was normal. The entire examined stomach was normal. No biopsies or other specimens were collected for this exam. The examined duodenum was normal. No biopsies or other specimens were collected for this exam. Impression: - Normal esophagus. - Normal stomach. No specimens collected. - Normal examined duodenum. No specimens collected. Recommendation: - Discharge patient to home. - Resume previous diet. - Continue present medications. - Repeat upper endoscopy PRN for surveillance. - Return to physician educational/development assistant in 1 week. Procedure Code(s): --- Professional --- 42926, Esophagogastroduodenoscopy, flexible, transoral; diagnostic, including collection of specimen(s) by brushing or washing, when performed (separate procedure) CPT copyright 2017 [employer]. All rights reserved. The codes documented in this report are preliminary and upon bowling alley manager review may be revised to meet current compliance requirements. MD William Cortes MD 12/19/2020 1:18:44 PM This report has been signed electronically. Number of Addenda: 0 Note Initiated On: 12/19/2020 12:41 PM
[2020-12-19 13:20] VITALS: BP 138/71; BP 167/74; PULSE 66; RESP 16; TEMP 36.1; O2SAT 94
--- NOTE | 2020-12-19 13:20 | OP.CCLET_ITS ---
12/19/2020 Richa Daniels [address] [place] [address] Re : Upper GI endoscopy procedure for Adrienne Garcia Dear Dr. Daniels This procedure was performed on Saturday, December 19, 2020. My impressions and recommendations are as follows: Impressions : - Normal esophagus. - Normal stomach. No specimens collected. - Normal examined duodenum. No specimens collected. Recommendations : - Discharge patient to home. - Resume previous diet. - Continue present medications. - Repeat upper endoscopy PRN for surveillance. - Return to physician certified physician assistant in 1 week. My findings are described in the full procedure note, which is enclosed. If I can be of further assistance, please feel free to contact me at Doctor phone number(s): , Fax: [phone], Work: . Sincerely, MD William Cortes MD 12/19/2020 1:18:44 PM This report has been signed electronically.
--- NOTE | 2020-12-19 13:23 | OP.COLON_ITS ---
Patient Name: Adrienne Garcia Procedure Date: 12/19/2020 1:00 PM Date of : 1950 Age: 70 Procedure: Colonoscopy Indications: Positive Cologuard test Providers: William Taylor MD Patient Profile: This is a 70 year old female. Refer to note in patient chart for documentation of history and physical. Last Colonoscopy: 5 years ago. Complications: No immediate complications. Procedure: Pre-Anesthesia Assessment: - Prior to the procedure, a History and Physical was performed, and patient medications and allergies were reviewed. The patient's tolerance of previous anesthesia was also reviewed. The risks and benefits of the procedure and the sedation options and risks were discussed with the patient. All questions were answered, and informed consent was obtained. Prior Anticoagulants: The patient has taken no previous anticoagulant or antiplatelet agents. ASA Grade Assessment: III - A patient with severe systemic disease. After reviewing the risks and benefits, the patient was deemed in satisfactory condition to undergo the procedure. After I obtained informed consent, the scope was passed under direct vision. Throughout the procedure, the patient's blood pressure, pulse, and oxygen saturations were monitored continuously. The adult colonoscope was introduced through the anus and advanced to the cecum, identified by appendiceal orifice and ileocecal valve. Scope In: 1:01:04 PM Scope Withdrawal Time 0 hours 7 minutes 27 seconds Scope Out: 1:13:57 PM Total Procedure Duration Time 0 hours 12 minutes 53 seconds Findings: The entire examined colon appeared normal on direct and retroflexion views. A 5 mm polyp was found in the rectum. The polyp was sessile. The polyp was removed with a jumbo cold forceps. Resection and retrieval were complete. The exam was otherwise without abnormality. Impression: - The entire examined colon is normal on direct and retroflexion views. - One 5 mm polyp in the rectum, removed with a jumbo cold forceps. Resected and retrieved. - The examination was otherwise normal. Recommendation: - Discharge patient to home. - Resume previous diet. - Continue present medications. - Await pathology results. - Repeat colonoscopy in 5-10 years for surveillance. - Return to physician corporate law assistant in 1 week. Procedure Code(s): --- Professional --- 53286, Colonoscopy, flexible; with biopsy, single or multiple Diagnosis Code(s): --- Professional --- K62.1, Rectal polyp R19.5, Other fecal abnormalities CPT copyright 2017 [employer]. All rights reserved. The codes documented in this report are preliminary and upon retirement benefits specialist review may be revised to meet current compliance requirements. MD William Cortes MD 12/19/2020 1:22:52 PM This report has been signed electronically. Number of Addenda: 0 Note Initiated On: 12/19/2020 1:00 PM
--- NOTE | 2020-12-19 13:23 | OP.CCLET_ITS ---
12/19/2020 Richa Daniels [address] [place] [address] Re : Colonoscopy procedure for Adrienne Garcia Dear Dr. Daniels This procedure was performed on Saturday, December 19, 2020. My impressions and recommendations are as follows: Impressions : - The entire examined colon is normal on direct and retroflexion views. - One 5 mm polyp in the rectum, removed with a jumbo cold forceps. Resected and retrieved. - The examination was otherwise normal. Recommendations : - Discharge patient to home. - Resume previous diet. - Continue present medications. - Await pathology results. - Repeat colonoscopy in 5-10 years for surveillance. 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 My findings are described in the full procedure note, which is enclosed. If I can be of further assistance, please feel free to contact me at Doctor phone number(s): , Fax: [phone], Work: . Sincerely, MD William Cortes MD 12/19/2020 1:22:52 PM This report has been signed electronically.
[2020-12-19 13:25] VITALS: BP 140/80; BP 167/74; PULSE 65; RESP 16; O2SAT 93
[2020-12-19 13:30] VITALS: BP 146/74; BP 167/74; PULSE 63; RESP 16; O2SAT 94
[2020-12-19 13:35] VITALS: BP 148/69; BP 167/74; PULSE 62; RESP 16; TEMP 36.2; O2SAT 95
[2020-12-19 14:28] VITALS: BP 167/74
== END 2020-12-19 14:40 | disposition home or self-care (01) ==
LOC: EN 11:23 → AC 11:26
PROVIDERS: PCP Family Medicine; Referring Provider Family Medicine; Visit Provider Surgery
PROC: 0DJD8ZZ Inspection of Lower Intestinal Tract, Via Natural or Artificial Opening Endoscopic (ICD-10-PCS; CPT 45378; principal; 2020-12-19 12:40)
DX: K62.89 Other specified diseases of anus and rectum (principal); I11.9 Hypertensive heart disease without heart failure; K21.9 Gastro-esophageal reflux disease without esophagitis; J44.9 Chronic obstructive pulmonary disease, unspecified; F20.9 Schizophrenia, unspecified; E11.9 Type 2 diabetes mellitus without complications; G40.909 Epilepsy, unspecified, not intractable, without status epilepticus; H40.9 Unspecified glaucoma; M85.80 Other specified disorders of bone density and structure, unspecified site; Z79.899 Other long term (current) drug therapy; Z80.0 Family history of malignant neoplasm of digestive organs; Z86.73 Personal history of transient ischemic attack (TIA), and cerebral infarction without residual deficits; Z86.010 Personal history of colon polyps; Z87.19 Personal history of other diseases of the digestive system; Z99.81 Dependence on supplemental oxygen; Z79.02 Long term (current) use of antithrombotics/antiplatelets; Z79.51 Long term (current) use of inhaled steroids
CPT/HCPCS: 43235; 45380; 82962; 88305; J7120; J2405

== ENCOUNTER 2021-06-16 18:48 | Emergency (ER) | payer MEDICARE, MEDICAID, SELFPAY ==
[2021-06-16 18:55] VITALS: BP 187/92; PULSE 71; RESP 18; TEMP 37.1; O2SAT 96; BMI 49.1
--- NOTE | 2021-06-16 19:13 | CT_ITS ---
INDICATION: head injury EXAMINATION: CT BRAIN - CT Head or Brain W/O Contrast Injection TECHNIQUE: Multiple axial images were obtained of the head without intravenous contrast. A radiation dose optimization technique was used for this scan. IV Contrast dosage and agent: None. COMPARISON: CT face chin a 12/27/[address] cervical spine MALIK 12/27/2021. FINDINGS: BRAIN PARENCHYMA: No intra- or extra-axial hemorrhage. No intracranial mass or mass effect. Irene/white matter differentiation is maintained and there is no blurring of the basal ganglia. There is no hyperdense vessel. Posterior fossa structures are unremarkable. CSF SPACES: Appropriate for age. No hydrocephalus. Basal cisterns are patent. CALVARIUM, SKULL BASE, PARANASAL SINUSES AND MASTOID AIR CELLS: Clear. No discrete lytic or blastic abnormalities. . There is a soft tissue swelling around the left eye with moderate periorbital edema. Irregular skin surface partially obscured by gauze suspicious for laceration. No visible underlying fracture. ORBITS: Both globes, extraocular muscles, optic nerves and retrobulbar fat appear unremarkable. ASPECTS Score for Acute Strokes: 10 CT/Brain/Head without Contrast IMPRESSION: No acute intracranial pathology. Left periorbital soft tissue swelling with suspected laceration. Electronically Signed: Benito Zuluaga DO at 20:26 EST Tel , Service support ,
--- NOTE | 2021-06-16 19:13 | CT_ITS ---
INDICATION: falls EXAMINATION: CT CERVICAL SPINE - CT Spine Cervical W/O Contrast Injection TECHNIQUE: Helically acquired images were obtained of the cervical spine. 2D reformatted images were reviewed. A radiation dose optimization technique was used for this scan. IV Contrast dosage and agent: None. COMPARISON: CT face and head 06/16/2021 FINDINGS: VERTEBRAE: No fracture or traumatic subluxation. No discrete lytic or blastic abnormality. Mildly exaggerated lordotic curvature but no focal malalignment to suggest ligamentous injury. Normal craniocervical junction and cervicothoracic junction alignment. Significant atlantoaxial degenerative changes. There are significant degenerative changes involving the facet joints bilaterally, left greater than right. The C2-3 facet joints appear fused bilaterally and there is wxys-[id number] appearance and significant subchondral sclerosis involving the bilateral facet joints throughout the cervical spine, left greater than right. Moderate left-sided facet hypertrophy, with associated uncovertebral joint arthropathy results in some neuroforaminal narrowing, most notable at C3-4 on the left, C4-5 on the left and C5-6 and C6-7 on the right. DISCS and SPINAL CANAL: Multilevel degenerative disc height loss with relatively mild degenerative endplate changes but mild to moderate uncovertebral joint arthropathy, especially in the lower cervical spine. No appreciable severe central canal stenosis. NECK SOFT TISSUES: No prevertebral soft tissue swelling. There is no cervical adenopathy. LUNG APICES: Poorly evaluated due to motion. No definite pneumothorax. CT/Spine Cervical without Contras IMPRESSION: No fracture or focal malalignment. Multilevel degenerative changes as above with severe neural foraminal narrowing from facet and uncovertebral joint arthropathy as described above. Electronically Signed: Benito Zuluaga DO at 20:39 EST Tel , Service support ,
[2021-06-16 19:48] LABS: Absolute Lymphocyte Count 1.48 X10^3/uL (0.83-4.51); Basophil# 0.06 X10^3/uL; Basophil% 0.6 % (0-1); Eosinophil# 0.28 X10^3/uL; Hematocrit 41.4 % (37-47); Hemoglobin 13.3 g/dL (12.0-15.0); Lymphocyte # 1.48 X10^3/ul (0.83-4.51); Lymphocyte % 15.6 % (19-41); Mean Corp Hgb Conc 32.1 g/dL (32-36); Mean Corpuscular Hgb 30.7 pg (27.0-32.0); Mean Corpuscular Volume 95.6 fL (81-99); Mean Platelet Vol. 9.5 fl (6.2-12.0); Monocyte# 0.67 X10^3/uL; Monocyte% 7.1 % (0-10); NRBC Flagged by Analyzer 0 % (0-5); Neutrophil # 6.95 X10^3/uL (2.7-7.7); Neutrophil % 73.5 % (47-70); Platelet Count 302 K/mm3 (150-450); RBC Distribution Width CV 14.7 % (11.6-14.6); RBC Distribution Width SD 52.3 fl (35.1-43.9); Red Blood Count 4.33 M/mm3 (4.2-5.4); White Blood Count 9.5 K/mm3 (4.4-11.0)
--- NOTE | 2021-06-16 19:50 | CT_ITS ---
INDICATION: facial trauma EXAMINATION: CT FACIAL BONES - CT Maxillofacial W/O Contrast Injection TECHNIQUE: Helically acquired images were obtained of the facial bones. A radiation dose optimization technique was used for this scan. IV Contrast dosage and agent: None. COMPARISON: CT head and cervical spine 06/16/2021 FINDINGS: SOFT TISSUES: Left periorbital soft tissue swelling and mild increased density with irregular skin surface, obscured by overlying bandaging material. No discrete fluid collections to suggest hematoma. VISUALIZED PARANASAL SINUSES: Clear. VISUALIZED MASTOID AIR CELLS: Clear. FACIAL BONES, MANDIBLE AND TMJs: No displaced facial bone fracture. No lytic or blastic abnormality. VISUALIZED DENTITION: Absent. ORBITAL CONTENTS: Both globes, extraocular muscles and retrobulbar fat appear unremarkable. CT/Sinus/Facial Bone IMPRESSION: Left periorbital soft tissue swelling likely representing contusion with no evidence of orbital or globe injury. No facial bone fracture. Electronically Signed: Benito Zuluaga DO at 20:29 EST Tel , Service support ,
--- NOTE | 2021-06-16 19:57 | RAD_ITS ---
INDICATION: hand pain EXAMINATION/TECHNIQUE: X-RAY - RIGHT XR Hand Min 3 Views 3 VIEWS COMPARISON: 08/24/2013 left wrist x-ray FINDINGS: SOFT TISSUES: Significant soft tissue swelling third finger. No radiopaque foreign body. BONES/JOINTS: No acute fracture or malalignment. At least moderate degenerative changes interphalangeal joints. There are at least mild degenerative changes of the first carpometacarpal joint. Lunate shows abnormal sclerosis, new compared with 08/24/2013 wrist x-ray. No lytic or blastic focal osseous lesion. RAD/Hand Min 3 Views IMPRESSION: Third finger soft tissue swelling without fracture or malalignment. Abnormal sclerosis throughout the lunate suggesting osteonecrosis. This is new compared to August 2013. Degenerative changes distal interphalangeal joints and first metacarpal phalangeal joint. Electronically Signed: Benito Zuluaga DO at 20:43 EST Tel , Service support ,
[2021-06-16 20:20] LABS: ALB/GLOB Ratio 0.7 RATIO (0.9-2.4); AST(SGOT) 18 U/L (15-37); Alanine Aminotransfer ALT/SGPT 31 U/L (13-56); Albumin, Serum 3.2 g/dL (3.2-5.0); Alkaline Phosphatase 122 U/L (45-117); Anion Gap 7 (5-15); BUN 19 mg/dL (7-18); BUN/Creat Ratio 23.1 RATIO (10-20); Calcium,Total 9.2 mg/dL (8.5-10.1); Chloride 101 mmol/L (98-107); Creatinine, Serum 0.82 mg/dL (0.55-1.02); EST Glomerular Filtration Rate 73 mL/min (>60); Est Glom Filt Rate - Afr Amer 88 mL/min (>60); Globulin 4.7 g/dL (2.2-4.2); Glucose 135 mg/dL (74-106); Protein, Total 7.9 g/dL (6.4-8.2); Sodium Level 137 mmol/L (136-145)
[2021-06-16 20:56] LABS: Bacteria 0 SEEN /hpf (None Seen); Mucous, Urine 0 SEEN /hpf (<or=2+); Red Blood Cells-Urine 0 SEEN /hpf (0-5); White Blood Cells 0 SEEN /hpf (0-5)
[2021-06-16 21:03] VITALS: BP 136/93; PULSE 66; RESP 18; O2SAT 98
[2021-06-16 21:04] LABS: Color, Urine Yellow (Yellow); Glucose, Dipstick Normal (Normal); Ketone-Dipstick Negative (Negative); Leukocyte Esterase-Dipstick Negative /ul (Negative); Nitrite-Dipstick Negative (Negative); Occult Blood-Urine Negative /ul (Negative); Protein-Dipstick Negative (Negative); Urine Bilirubin Dipstick Negative (Negative); Urine Clarity Clear (Clear); Urine Urobilinogen Normal (Normal)
[2021-06-16 21:28] LABS: Squamous Epithelial Cells - UA 0-5 SEEN /hpf (5-10)
[2021-06-16] MEDS: Lidocaine 1% /Epi 1:100 (20ml) 20 ML Vial INFILT (22:27)
--- NOTE | 2021-06-16 23:12 | EDS_ITS ---
HPI HPI - Fall History of Present Illness Chief Complaint: Fall Narrative Narrative: 71-year-old female presenting after a fall. She states she had diarrhea for the last couple of days because she was on Keflex for a facial infection. She was told to expect some diarrhea. Patient states she was having an episode of diarrhea and then stood up to get her walker and she felt a little weak and missed her walker and fell. She fell face first hit the ground without LOC. Her glasses. 2 lacerations into her forehead just above the bridge of her nose. Patient is on Plavix. She denies any neck pain. She has mild headache. Patient is admitting to some left hand pain and she states she fell on this. There are some bruising of of the index and middle finger. No deformity. PFSH PFS Medical History Allergic rhinitis Anemia in chronic illness Anxiety disorder Asthma Benign essential hypertension Convulsion COPD (chronic obstructive pulmonary disease) Depression Diabetes mellitus type 2 in obese Diverticulitis Easy bruising Gastric reflux GERD (gastroesophageal reflux disease) Glaucoma History of CVA (cerebrovascular accident) History of diverticulitis Hypercholesterolemia Hyperlipidemia Hypertension Hypothyroid Morbid obesity Non-smoker Osteoarthritis Peripheral venous insufficiency Rash Rheumatoid arthritis Schizophrenia Seizure disorder Shortness of breath on exertion Sleep apnea Thyroid disorder TIA (transient ischemic attack) Vericose veins Walker as ambulation aid Wears glasses Wears hearing aid Home Medications clonazepam 1 mg PO 4X/DAY #0 03/28/13 [History Last Taken 03/04/17 05:00] clopidogrel 75 mg PO DAILY 03/28/13 [History Last Taken 12/13/20] escitalopram oxalate 20 mg PO DAILY 03/28/13 [History Last Taken Unknown] hydrochlorothiazide 25 mg PO DAILY #0 03/28/13 [History Last Taken Unknown] levothyroxine 300 mcg PO DAILY 03/28/13 [History Last Taken 12/19/20] lovastatin 20 mg PO QHS 03/28/13 [History Last Taken Unknown] metoprolol succinate 100 mg PO BID 03/28/13 [History Last Taken 12/19/20] montelukast 10 mg PO QHS 03/28/13 [History Last Taken Unknown] nifedipine 90 mg PO DAILY 03/28/13 [History Last Taken 03/04/17 05:00] phenobarbital 120 mg PO QHS 03/28/13 [History Last Taken Unknown] phenobarbital 180 mg PO BREAKFAST 03/28/13 [History Last Taken 03/04/17 05:00] paliperidone 6 mg PO QHS 01/31/17 [History Last Taken Unknown] estradiol 1 dose VAGINAL TUFR 10/14/17 [History Last Taken Unknown] cholecalciferol (vitamin D3) 50 mcg (2,000 unit) tablet 2,000 unit PO DAILY 07/25/18 [History Last Taken Unknown] omeprazole magnesium 20 mg tablet,delayed release 20 mg PO BID 04/07/21 [History Last Taken Unknown] fluticasone propionate 220 mcg/actuation HFA aerosol inhaler 2 puff INHALATION BID #12 g 04/17/21 [Rx Last Taken Unknown] fluticasone propionate 100 mcg/actuation blister powder for inhalation 1 inh INHALATION BID #60 ea 04/20/21 [Rx Last Taken Unknown] Allergy/AdvReac Type Severity Reaction Status Date / Time codeine Allergy Shortness Verified 06/16/21 18:58 of breath dextromethorphan HBr Allergy Shortness Verified 06/16/21 18:58 [From Tylenol Cold of breath Multi-Symptom] diazepam [From Valium] Allergy Shortness Verified 06/16/21 18:58 of breath guaifenesin Allergy Shortness Verified 06/16/21 18:58 [From Tylenol Cold of breath Multi-Symptom] hydrocodone bitartrate Allergy Shortness Verified 06/16/21 18:58 [From Vicodin] of breath iodine Allergy Anaphylaxis Verified 06/16/21 18:58 Latex, Natural Rubber Allergy Shortness Verified 06/16/21 18:58 of breath morphine Allergy Shortness Verified 06/16/21 18:58 of breath phenylephrine HCl Allergy Shortness Verified 06/16/21 18:58 [From Tylenol Cold of breath Multi-Symptom] phenytoin sodium Allergy Shortness Verified 06/16/21 18:58 [From Dilantin] of breath phenytoin sodium extended Allergy Shortness Verified 06/16/21 18:58 [From Dilantin] of breath povidone-iodine Allergy BLISTERS Verified 06/16/21 18:58 [From Betadine] pseudoephedrine HCl Allergy Shortness Verified 06/16/21 18:58 [From Tylenol Cold of breath Multi-Symptom] soap [From Betadine] Allergy BLISTERS Verified 06/16/21 18:58 ANTI-INFLAMMATORY DRUGS Allergy Shortness Uncoded 06/16/21 18:58 of breath BANANA PEELS Allergy Shortness Uncoded 06/16/21 18:58 of breath PASSION FRUIT Allergy Shortness Uncoded 06/16/21 18:58 of breath SLEEPING PILLS Allergy Shortness Uncoded 06/16/21 18:58 of breath muscle relaxers Allergy Shortness Uncoded 06/16/21 18:58 of breath Family History Other Arthritis CVA (cerebral vascular accident) Cancer Depression Diabetes Emphysema lung Hypertension Surgical History History of bilateral tympanoplasty History of cholecystectomy History of D&C History of tonsillectomy History of total hysterectomy History of total knee replacement History of tubal ligation Social History Smoking Status: Never smoker second hand exposure: Yes alcohol intake: never substance use type: does not use what type of physical activity do you participate in: walking do you feel safe at home: Yes ROS ROS ED Constitutional Constitutional ED: Denies chills or fever(s) Eyes Eyes: Denies blurry vision or diplopia ENT ENT ED: Denies rhinorrhea or sore throat Cardiovascular Cardiovascular: Denies chest pain or palpitations Respiratory/Chest Respiratory/Chest: Denies cough, dyspnea or sputum Gastrointestinal Gastrointestinal: Denies abdominal pain, nausea or vomiting Genitourinary Genitourinary ED: Denies dysuria or hematuria Musculoskeletal Musculoskeletal: Reports other Details: Left hand pain ; Denies back pain or neck pain Integumentary Reports other Details: Facial laceration Neurologic Neurologic: Reports headache(s); Denies paresthesias or weakness EXAM Physical Exam Const Vital Signs: 06/16/21 18:55 06/16/21 18:59 06/16/21 21:03 Temperature 98.7 F Temperature Source Temporal Pulse Rate 71 66 Respiratory Rate 18 18 Respiratory Effort Normal Blood Pressure 187/92 H 136/93 H Blood Pressure Mean 123 107 Pulse Ox 96 98 Oxygen Delivery Method Room Air Room Air Positive well nourished General Appearance ED: NAD HEENT Reports normocephalic HEENT Narrative: 3 cm lacerations bilaterally in the vertical orientation on each side of the bridge of the nose extending to the forehead. No active bleeding. Facial swelling noted around the left periorbital area. Nasal bone is midline. No nasal septal hematoma. No hemotympanum. Eyes PERRL and EOMs intact bilaterally Neck full ROM General: Negative for tenderness Resp normal respiratory effort and clear to auscultation bilaterally Cardio regular rate and regular rhythm Extremity Extremity Narrative: Tenderness palpation of the left second and third digits and there is bruising and swelling of these fingers. Right hand neurovascular intact prescription filled all 5 fingers. Neuro oriented x3 and CN's II-XII intact bilaterally Sensorium / Orientation: alert Psych mental status grossly normal and thought process normal MDM MDM MDM Narrative Medical decision making narrative: Due to weakness and fall blood work was obtained. Patient concerned she could be dehydrated secondary to diarrhea. CBC shows no leukocytosis. Hemoglobin hematocrit are stable. Renal function and electrolytes are unremarkable. LFTs are normal with exception of alkaline phosphatase of 122. Urinalysis is negative for infection. X-ray of the left hand on my interpretation shows no acute fracture or subluxations. There is soft tissue swelling. The radiologist does agree. CT brain and cervical spine are negative for acute findings. CT facial bones shows soft tissue swelling and lacerations without any facial bone fractures. Patient's wounds were sutured after being cleaned thoroughly. See procedure note. Patient tolerated procedure well. She is counseled to follow-up in 5 to 7 days for suture removal. Impression: 1. Fall 2. Closed head injury 3. Stellate facial laceration 4. Left hand contusion 5. Facial contusion Lab Data Labs: Laboratory Results - last 24 hr 06/16/21 06/16/21 06/16/21 19:40 19:40 20:15 WBC 9.5 RBC 4.33 Hgb 13.3 Hct 41.4 MCV 95.6 MCH 30.7 MCHC 32.1 RDW Std Deviation 52.3 H RDW Coeff of [place] 14.7 H Plt Count 302 MPV 9.5 Immature Gran % (Auto) 0.200 Neut % (Auto) 73.5 H Lymph % (Auto) 15.6 L [place] % (Auto) 7.1 Eos % (Auto) 3.0 Baso % (Auto) 0.6 Absolute Neuts (auto) 7.0 Absolute Lymphs (auto) 1.48 Nucleated RBC % 0 Sodium 137 Potassium 4.0 Chloride 101 Carbon Dioxide 29.0 Anion Gap 7 BUN 19 H Creatinine 0.82 Estim Creat Clear Calc 46.80 Est GFR (MDRD) Af Amer 88 Est GFR (MDRD) Non-Af 73 BUN/Creatinine Ratio 23.1 H Glucose 135 H Calcium 9.2 Total Bilirubin 0.20 AST 18 ALT 31 Alkaline Phosphatase 122 H Total Protein 7.9 Albumin 3.2 Globulin 4.7 H Albumin/Globulin Ratio 0.7 L Urine Color Yellow Urine Clarity Clear Urine pH 8.0 Ur Specific [place] 1.010 Urine Protein Negative Urine Glucose (UA) Normal Urine Ketones Negative Urine Occult Blood Negative Urine Nitrite Negative Urine Bilirubin Negative Urine Urobilinogen Normal Ur Leukocyte Esterase Negative Urine RBC 0 SEEN Urine WBC 0 SEEN Ur Squamous Epith Cells 0-5 SEEN Urine Bacteria 0 SEEN Urine Mucus 0 SEEN Radiography Diagnostic Testing: Clinical Impression(s) from Imaging Studies Brain CT 06/16/21 19:13 IMPRESSION: No acute intracranial pathology. Left periorbital soft tissue swelling with suspected laceration. Electronically Signed: Benito Zuluaga DO at 20:26 EST Tel , Service support , Cervical Spine CT 06/16/21 19:13 IMPRESSION: No fracture or focal malalignment. Multilevel degenerative changes as above with severe neural foraminal narrowing from facet and uncovertebral joint arthropathy as described above. Electronically Signed: Benito Zuluaga DO at 20:39 EST Tel , Service support , Facial/Sinus 06/16/21 19:50 IMPRESSION: Left periorbital soft tissue swelling likely representing contusion with no evidence of orbital or globe injury. No facial bone fracture. Electronically Signed: Benito Zuluaga DO at 20:29 EST Tel , Service support , Hand X-Ray 06/16/21 19:57 IMPRESSION: Third finger soft tissue swelling without fracture or malalignment. Abnormal sclerosis throughout the lunate suggesting osteonecrosis. This is new compared to August 2013. Degenerative changes distal interphalangeal joints and first metacarpal phalangeal joint. Electronically Signed: Benito Zuluaga DO at 20:43 EST Tel , Service support , Discharge Plan Triage Chief Complaint: Fall ED Provider: Celso Villa Dx/Rx/DC Orders Instructions: ED Head Injury (Child), ED Laceration: All Closures, ED Fall Prevention Prescriptions: No Action cholecalciferol (vitamin D3) 2,000 unit tablet 2,000 unit PO DAILY RF: 0 omeprazole magnesium [Prilosec OTC] 20 mg tablet,delayed release (DR/EC) 20 mg PO BID RF: 0 clopidogrel 75 MG tablet 75 mg PO DAILY RF: 0 lovastatin 20 MG tablet 20 mg PO QHS RF: 0 phenobarbital 60 MG tablet 180 mg PO BREAKFAST RF: 0 phenobarbital 60 MG tablet 120 mg PO QHS RF: 0 escitalopram oxalate 20 MG tablet 20 mg PO DAILY RF: 0 levothyroxine 300 MCG tablet 300 mcg PO DAILY RF: 0 nifedipine 30 MG tablet 90 mg PO DAILY RF: 0 metoprolol succinate 100 MG tablet 100 mg PO BID RF: 0 clonazepam 1 MG tablet 1 mg PO 4X/DAY Qty: 0 RF: 0 montelukast 10 MG tablet 10 mg PO QHS RF: 0 hydrochlorothiazide 25 MG tablet 25 mg PO DAILY Qty: 0 RF: 0 paliperidone 6 MG tablet 6 mg PO QHS RF: 0 estradiol 42.5 GM cream 1 dose vaginal TUFR RF: 0 Flovent HFA 220 mcg/actuation HFA aerosol inhaler 2 puff inhalation BID Qty: 12 RF: 6 Flovent Diskus 100 mcg/actuation blister with device 1 inh inhalation BID Qty: 60 RF: 6 Primary Care Provider: Richa Daniels Referrals: Richa Daniels MD [Primary Care Provider] - Activity Restrictions/Additional Instructions: Keep wounds clean and dry. He can use ice around her left eye and forehead for pain control and swelling. I would expect to see bruising in the next day or 2. This may descend down your face. Suture removal is in 5 to 7 days. Disposition Disposition: Home, Self Care Discharge Date/Time: 06/16/21 23:05
== END 2021-06-16 23:05 | disposition home or self-care (01) ==
PROVIDERS: Emergency Provider Student in an Organized Health Care Education/Training Program; PCP Family Medicine; Visit Provider Student in an Organized Health Care Education/Training Program
DX: S01.81XA Laceration without foreign body of other part of head, initial encounter (principal); F20.9 Schizophrenia, unspecified; M06.9 Rheumatoid arthritis, unspecified; J44.9 Chronic obstructive pulmonary disease, unspecified; E11.39 Type 2 diabetes mellitus with other diabetic ophthalmic complication; E66.01 Morbid (severe) obesity due to excess calories; Z68.42 Body mass index [BMI] 45.0-49.9, adult; G40.909 Epilepsy, unspecified, not intractable, without status epilepticus; E11.9 Type 2 diabetes mellitus without complications; S60.222A Contusion of left hand, initial encounter; W19.XXXA Unspecified fall, initial encounter; E78.00 Pure hypercholesterolemia, unspecified; E78.5 Hyperlipidemia, unspecified; I10 Essential (primary) hypertension; R19.7 Diarrhea, unspecified; F32.A Depression, unspecified; K21.9 Gastro-esophageal reflux disease without esophagitis; Z86.73 Personal history of transient ischemic attack (TIA), and cerebral infarction without residual deficits; E03.9 Hypothyroidism, unspecified; Z79.899 Other long term (current) drug therapy; M19.90 Unspecified osteoarthritis, unspecified site; G47.30 Sleep apnea, unspecified; Z87.19 Personal history of other diseases of the digestive system; F41.9 Anxiety disorder, unspecified; Z79.02 Long term (current) use of antithrombotics/antiplatelets; E86.0 Dehydration; H42 Glaucoma in diseases classified elsewhere
CPT/HCPCS: 12013; 36415; 70450; 70486; 72125; 73130; 80053; 81001; 85025; 96360; 99285; J7040; P9612

== ENCOUNTER 2021-06-23 14:05 | Outpatient (CLI) | payer MEDICARE, MEDICAID, SELFPAY ==
--- NOTE | 2021-06-23 14:07 | RAD_ITS ---
STUDY: X-RAY - RIGHT WRIST REASON FOR EXAM: Female, 71 years old. FALL TECHNIQUE: 3 view(s) of the wrist were obtained. COMPARISON: None. FINDINGS: Normal visualized distal radius and ulna. Normal radiocarpal articulation. Normal distal radioulnar articulation. Normal carpal bones. Normal carpal articulations. Normal carpometacarpal articulation of the thumb. Normal second through fifth carpometacarpal articulations. Normal visualized metacarpal bones. Soft tissue swelling. RAD/Wrist min 3 Views IMPRESSION: Soft tissue swelling. Electronically Signed: Chapo Norman MD at 15:17 EST , Service support ,
== END 2021-06-23 23:59 | disposition short-term general hospital (02) ==
LOC: MTRAD 14:07
PROVIDERS: PCP Family Medicine; Referring Provider Family Medicine; Visit Provider Family Medicine
DX: M25.531 Pain in right wrist (principal)
CPT/HCPCS: 73110

== ENCOUNTER 2021-07-03 10:34 | Outpatient (CLI) | payer MEDICARE, MEDICAID, SELFPAY ==
[2021-07-03 10:51] LABS: Bacteria 0 SEEN /hpf (None Seen); Mucous, Urine 0 SEEN /hpf (<or=2+); Red Blood Cells-Urine 0 SEEN /hpf (0-5); Squamous Epithelial Cells - UA 0 SEEN /hpf (5-10)
[2021-07-03 10:56] LABS: Color, Urine Yellow (Yellow); Glucose, Dipstick Normal (Normal); Ketone-Dipstick Negative (Negative); Leukocyte Esterase-Dipstick 500 /ul (Negative); Nitrite-Dipstick Negative (Negative); Occult Blood-Urine 50 /ul (Negative); Protein-Dipstick 30 mg/dl (Negative); Urine Bilirubin Dipstick Negative (Negative); Urine Clarity Cloudy (Clear); Urine Urobilinogen Normal (Normal)
[2021-07-03 11:10] LABS: White Blood Cells >100 SEEN /hpf (0-5)
== END 2021-07-03 23:59 | disposition short-term general hospital (02) ==
LOC: LABSPEC 10:36
PROVIDERS: PCP Family Medicine; Visit Provider Physician Assistant
DX: N39.0 Urinary tract infection, site not specified (principal)
CPT/HCPCS: 81001; 87077; 87086; 87088; 87186

== ENCOUNTER → 2021-12-20 | Outpatient (CLI) | payer MEDICARE, MEDICAID, SELFPAY ==
--- NOTE | 2021-12-20 10:29 | BI_ITS ---
MAMMOGRAPHY - BILATERAL SCREENING REASON FOR EXAM: Female, 71 years old. Routine annual screening examination. PERTINENT HISTORY: Sister with breast cancer. Remote right stereotactic breast biopsy. TECHNIQUE: Digital bilateral breast rebecca (3D mammographic acquisition) in the CC and MLO projections. 2-D mediolateral oblique (MLO) and craniocaudad (CC) views of both breasts were obtained. CAD: Full Field Digital Mammography with Computer Added Detection was performed. COMPARISON: Comparison is made with prior study dated 08/11/2020 and 05/12/2019. FINDINGS: Breast Composition: The breasts are almost entirely fatty. There are no dominant masses or suspicious calcifications. Stable small benign-appearing bilateral axillary nodes. No other significant abnormalities are identified. There has been no significant change since the prior study. BI/SCRN MAMM (CAD)W/REBECCA BILAT IMPRESSION: Stable bilateral screening mammogram. Yearly follow-up mammogram recommended. (A) ASSESSMENT CATEGORY: BIRADS Category 2: Benign. A letter regarding these results will be sent to the patient by the facility within 30 days. Approximately 10% of breast cancers are not detected by mammography. A normal mammogram should not delay biopsy of a clinically suspicious abnormality. [id number] Electronically Signed: Chapo Norman MD at 11:56 EDT ,
== END | disposition home or self-care (01) ==
LOC: OPBI 10:28
PROVIDERS: PCP Family Medicine; Visit Provider Family Medicine
DX: Z12.31 Encounter for screening mammogram for malignant neoplasm of breast (principal); Z80.3 Family history of malignant neoplasm of breast
CPT/HCPCS: 77063; 77067

== ENCOUNTER → 2022-05-25 | Outpatient (CLI) | payer MEDICARE, MEDICAID, SELFPAY ==
[2022-05-25 17:42] LABS: Absolute Lymphocyte Count 2.17 X10^3/uL (0.83-4.51); Absolute Neutrophil Count 5.8 X10^3/uL (2.0-7.7); Basophil# 0.05 X10^3/uL; Basophil% 0.5 % (0-1); Eosinophil# 0.26 X10^3/uL; Eosinophils% 2.8 % (0-5); Hematocrit 39.3 % (37-47); Hemoglobin 12.4 g/dL (12.0-15.0); Lymphocyte # 2.17 X10^3/ul (0.83-4.51); Lymphocyte % 23.7 % (19-41); Mean Corp Hgb Conc 31.6 g/dL (32-36); Mean Corpuscular Hgb 30.5 pg (27.0-32.0); Mean Corpuscular Volume 96.8 fL (81-99); Mean Platelet Vol. 9.7 fl (6.2-12.0); Monocyte% 8.7 % (0-10); NRBC Flagged by Analyzer 0 % (0-5); Neutrophil # 5.83 X10^3/uL (2.7-7.7); Neutrophil % 63.9 % (47-70); Platelet Count 333 K/mm3 (150-450); RBC Distribution Width CV 15.1 % (11.6-14.6); RBC Distribution Width SD 54.1 fl (35.1-43.9); Red Blood Count 4.06 M/mm3 (4.2-5.4); White Blood Count 9.2 K/mm3 (4.4-11.0)
[2022-05-25 18:14] LABS: ALB/GLOB Ratio 0.8 RATIO (0.9-2.4); AST(SGOT) 18 U/L (15-37); Alanine Aminotransfer ALT/SGPT 27 U/L (13-56); Albumin, Serum 3.4 g/dL (3.2-5.0); Alkaline Phosphatase 134 U/L (45-117); Anion Gap 5 (5-15); BUN 18 mg/dL (7-18); BUN/Creat Ratio 33.4 RATIO (10-20); Calcium,Total 9.1 mg/dL (8.5-10.1); Chloride 97 mmol/L (98-107); Cholesterol 210 mg/dL (200); Creatinine, Serum 0.54 mg/dL (0.55-1.02); EST Glomerular Filtration Rate 118 mL/min (>60); Est Glom Filt Rate - Afr Amer 143 mL/min (>60); Globulin 4.1 g/dL (2.2-4.2); Glucose 94 mg/dL (74-106); High Density Lipoprotein 97 mg/dL; Potassium 4.3 mmol/L (3.5-5.1); Protein, Total 7.5 g/dL (6.4-8.2); Sodium Level 133 mmol/L (136-145); T4 Free Direct 1.19 ng/dL (0.76-1.46); Thyroid Stim Hormone (TSH) 1.53 uIU/mL (0.358-3.74); Triglycerides 62 mg/dL; Very Low Density Lipoprotein 12 mg/dL (5-40)
== END | disposition home or self-care (01) ==
LOC: MFPLAB 14:55
PROVIDERS: PCP Family Medicine; Referring Provider Family Medicine; Visit Provider Nurse Practitioner Family
DX: I10 Essential (primary) hypertension (principal); E03.9 Hypothyroidism, unspecified
CPT/HCPCS: 36415; 80053; 80061; 84439; 84443; 85025

== ENCOUNTER → 2023-01-08 | Outpatient (CLI) | payer MEDICARE, MEDICAID, SELFPAY ==
--- NOTE | 2023-01-08 13:33 | BI_ITS ---
MAMMOGRAPHY - BILATERAL SCREENING REASON FOR EXAM: Female, 72 years old. Routine annual screening examination. PERTINENT HISTORY: Sister with breast cancer. TECHNIQUE: Digital bilateral breast rebecca (3D mammographic acquisition) in the CC and MLO projections. 2-D mediolateral oblique (MLO) and craniocaudad (CC) views of both breasts were obtained. CAD: Full Field Digital Mammography with Computer Added Detection was performed. COMPARISON: Comparison is made with prior study dated December 20, 2021 and August 11, 2020. FINDINGS: Breast Composition: The breasts are almost entirely fatty. There are no dominant masses or suspicious calcifications. No other significant abnormalities are identified. There has been no significant change since the prior study. BI/SCRN MAMM (CAD)W/REBECCA BILAT IMPRESSION: Stable bilateral screening mammogram. Yearly follow-up mammogram recommended. (A) ASSESSMENT CATEGORY: BIRADS Category 1: Negative. A letter regarding these results will be sent to the patient by the facility within 30 days. Approximately 10% of breast cancers are not detected by mammography. A normal mammogram should not delay biopsy of a clinically suspicious abnormality. [id number] Electronically Signed: Chapo Norman MD at 15:34 EDT ,
== END | disposition home or self-care (01) ==
LOC: OPBI 13:30
PROVIDERS: PCP Family Medicine; Referring Provider Family Medicine; Visit Provider Family Medicine
DX: Z12.31 Encounter for screening mammogram for malignant neoplasm of breast (principal); Z80.3 Family history of malignant neoplasm of breast
CPT/HCPCS: 77063; 77067

== ENCOUNTER → 2023-05-27 | Outpatient (CLI) | payer MEDICARE, MEDICAID, SELFPAY ==
[2023-05-27 12:54] LABS: AST(SGOT) 25 U/L (15-37); Alanine Aminotransfer ALT/SGPT 28 U/L (13-56); Anion Gap 5 (5-15); BUN 20 mg/dL (7-18); BUN/Creat Ratio 35.4 RATIO (10-20); Chloride 103 mmol/L (98-107); Cholesterol 200 mg/dL (200); Creatinine, Serum 0.56 mg/dL (0.55-1.02); EST Glomerular Filtration Rate 111 mL/min (>60); Est Glom Filt Rate - Afr Amer 135 mL/min (>60); Glucose 95 mg/dL (74-106); High Density Lipoprotein 91 mg/dL; Potassium 3.9 mmol/L (3.5-5.1); Sodium Level 138 mmol/L (136-145); T4 Total, Thyroxin 8.8 ug/dL (4.8-13.9); Thyroid Stim Hormone (TSH) 1.99 uIU/mL (0.358-3.74); Triglycerides 66 mg/dL; Very Low Density Lipoprotein 13 mg/dL (5-40)
[2023-05-27 15:35] LABS: Microalbumin,Random Urine 5.7 mg/L (NO RANGE EST.)
== END | disposition home or self-care (01) ==
LOC: MFPLAB 11:02
PROVIDERS: PCP Family Medicine; Visit Provider Family Medicine
DX: I10 Essential (primary) hypertension (principal); E03.9 Hypothyroidism, unspecified; E78.5 Hyperlipidemia, unspecified
CPT/HCPCS: 36415; 80048; 80061; 82043; 82570; 84436; 84443; 84450; 84460

== ENCOUNTER → 2023-09-03 | Outpatient (REF) | payer MEDICARE, MEDICAID, SELFPAY ==
[2023-09-03 09:01] LABS: Hematocrit 39.5 % (37-47); Mean Corp Hgb Conc 32.9 g/dL (32-36); Mean Platelet Vol. 10.2 fl (6.2-12.0); Platelet Count 254 K/mm3 (150-450); RBC Distribution Width CV 14.8 % (11.6-14.6); RBC Distribution Width SD 51.3 fl (35.1-43.9); White Blood Count 6.5 K/mm3 (4.4-11.0)
== END ==
LOC: OLS.WCC 05:00
PROVIDERS: PCP Family Medicine; Visit Provider Family Medicine
DX: J44.9 Chronic obstructive pulmonary disease, unspecified (principal); I10 Essential (primary) hypertension; E78.5 Hyperlipidemia, unspecified; G40.909 Epilepsy, unspecified, not intractable, without status epilepticus; I67.9 Cerebrovascular disease, unspecified
CPT/HCPCS: 36415; 80184; 85027

== ENCOUNTER → 2023-10-03 | Outpatient (REF) | payer MEDICARE, MEDICAID, SELFPAY | LOC: OLS.WCC 05:00 | PROVIDERS: PCP Family Medicine; Visit Provider Family Medicine | DX: Z79.899 Other long term (current) drug therapy (principal) | CPT/HCPCS: 36415; 80184 ==

== ENCOUNTER → 2023-12-03 | Outpatient (REF) | payer MEDICARE, MEDICAID, SELFPAY ==
[2023-12-03 09:20] LABS: Anion Gap 3 (5-15); BUN 16 mg/dL (7-18); Chloride 101 mmol/L (98-107); Cholesterol 188 mg/dL (200); Creatinine, Serum 0.64 mg/dL (0.55-1.02); EST Glomerular Filtration Rate 96 mL/min (>60); Est Glom Filt Rate - Afr Amer 117 mL/min (>60); Glucose 88 mg/dL (74-106); High Density Lipoprotein 105 mg/dL; Sodium Level 134 mmol/L (136-145); Thyroid Stim Hormone (TSH) 0.27 uIU/mL (0.358-3.74); Triglycerides 61 mg/dL; Very Low Density Lipoprotein 12 mg/dL (5-40)
[2023-12-03 09:42] LABS: Hemoglobin 10.5 g/dL (12.0-15.0); Mean Corp Hgb Conc 32.8 g/dL (32-36); Mean Corpuscular Hgb 31.6 pg (27.0-32.0); Mean Corpuscular Volume 96.4 fL (81-99); Mean Platelet Vol. 10.2 fl (6.2-12.0); Platelet Count 197 K/mm3 (150-450); RBC Distribution Width CV 16.3 % (11.6-14.6); RBC Distribution Width SD 57.5 fl (35.1-43.9); Red Blood Count 3.32 M/mm3 (4.2-5.4); White Blood Count 5.3 K/mm3 (4.4-11.0)
== END ==
LOC: OLS.WCC 05:10
PROVIDERS: PCP Family Medicine; Visit Provider Family Medicine
DX: I10 Essential (primary) hypertension (principal); E78.5 Hyperlipidemia, unspecified; E03.9 Hypothyroidism, unspecified; Z79.899 Other long term (current) drug therapy; Z86.73 Personal history of transient ischemic attack (TIA), and cerebral infarction without residual deficits
CPT/HCPCS: 36415; 80048; 80061; 84443; 85027

== ENCOUNTER → 2024-01-06 | Outpatient (REF) | payer MEDICARE, MEDICAID, SELFPAY ==
[2024-01-06 09:02] LABS: Hematocrit 34.9 % (37-47); Hemoglobin 11.4 g/dL (12.0-15.0); Mean Corp Hgb Conc 32.7 g/dL (32-36); Mean Corpuscular Hgb 31.3 pg (27.0-32.0); Mean Corpuscular Volume 95.9 fL (81-99); Mean Platelet Vol. 9.8 fl (6.2-12.0); Platelet Count 262 K/mm3 (150-450); RBC Distribution Width CV 15.7 % (11.6-14.6); RBC Distribution Width SD 55.1 fl (35.1-43.9); Red Blood Count 3.64 M/mm3 (4.2-5.4); White Blood Count 5.5 K/mm3 (4.4-11.0)
== END ==
LOC: OLS.WCC 05:00
PROVIDERS: PCP Family Medicine; Visit Provider Family Medicine
DX: J44.9 Chronic obstructive pulmonary disease, unspecified (principal); I67.9 Cerebrovascular disease, unspecified; Z79.899 Other long term (current) drug therapy
CPT/HCPCS: 36415; 84443; 85027

== ENCOUNTER → 2024-02-27 | Outpatient (REF) | payer MEDICARE, MEDICAID, SELFPAY ==
[2024-02-27 09:27] LABS: Hematocrit 39.2 % (37-47); Hemoglobin 12.9 g/dL (12.0-15.0); Mean Corp Hgb Conc 32.9 g/dL (32-36); Mean Corpuscular Hgb 31.2 pg (27.0-32.0); Mean Corpuscular Volume 94.9 fL (81-99); Mean Platelet Vol. 10.9 fl (6.2-12.0); Platelet Count 262 K/mm3 (150-450); RBC Distribution Width SD 55.9 fl (35.1-43.9); Red Blood Count 4.13 M/mm3 (4.2-5.4); White Blood Count 7.9 K/mm3 (4.4-11.0)
[2024-02-27 09:53] LABS: ALB/GLOB Ratio 0.8 RATIO (0.9-2.4); AST(SGOT) 35 U/L (15-37); Alanine Aminotransfer ALT/SGPT 43 U/L (13-56); Albumin, Serum 3.6 g/dL (3.2-5.0); Alkaline Phosphatase 154 U/L (45-117); Anion Gap 10 (5-15); BUN 25 mg/dL (7-18); BUN/Creat Ratio 26.1 RATIO (10-20); Calcium,Total 10.4 mg/dL (8.5-10.1); Chloride 101 mmol/L (98-107); Creatinine, Serum 0.96 mg/dL (0.55-1.02); EST Glomerular Filtration Rate 61 mL/min (>60); Est Glom Filt Rate - Afr Amer 73 mL/min (>60); Globulin 4.7 g/dL (2.2-4.2); Glucose 110 mg/dL (74-106); Potassium 3.9 mmol/L (3.5-5.1); Protein, Total 8.3 g/dL (6.4-8.2); Sodium Level 136 mmol/L (136-145); Thyroid Stim Hormone (TSH) 0.794 uIU/mL (0.358-3.740)
== END ==
LOC: OLS.WCC 05:00
PROVIDERS: PCP Family Medicine; Visit Provider Family Medicine
DX: Z79.899 Other long term (current) drug therapy (principal)
CPT/HCPCS: 36415; 80053; 80184; 84443; 85027

== ENCOUNTER 2024-03-11 08:26 | Inpatient (IN) | payer MEDICARE, MEDICAID, SELFPAY ==
[2024-03-11] VITALS (23 sets, daily range): BP systolic 92–125; BP diastolic 45–87; PULSE 70–120; RESP 18–34; TEMP 36.5–38.4; O2SAT 90–98; BMI 54.3; BMI 49.8
--- NOTE | 2024-03-11 08:41 | EKG12_ITS ---
Test Reason : Blood Pressure : / mmHG Vent. Rate : 106 BPM Atrial Rate : 106 BPM P-R Int : 228 ms QRS Dur : 090 ms QT Int : 318 ms P-R-T Axes : 032 -09 028 degrees QTc Int : 422 ms Sinus tachycardia with 1st degree A-V block Inferior infarct , age undetermined Abnormal ECG Confirmed by ANNE MARIE JUAN, JONATHAN ([id number]), assistant editor MIRIAM FENG ([id number]) on 03/13/2024 11:46:14 AM Referred By: Confirmed By:JONATHAN KENNEY MD
--- NOTE | 2024-03-11 08:41 | RAD_ITS ---
STUDY: X-RAY CHEST REASON FOR EXAM: Female, 73 years old. Cough TECHNIQUE: Single AP portable view of the chest. COMPARISON: Comparison is made with prior study dated February 11, 2014. FINDINGS: EKG electrodes are seen. Limited inspiratory effort. Mild increased linear markings at the lung bases suggest some mild basilar atelectasis. There is no demonstrated pleural abnormality. Normal size heart. Normal mediastinum and talisha. Normal visualized pulmonary arteries. Normal visualized aortic arch and descending thoracic aorta. Normal visualized thoracic spine. Normal visualized ribs, clavicles, and shoulders. There is no demonstrated abnormality of the visualized soft tissue structures of the upper abdomen. RAD/Chest 1 View (Portable) IMPRESSION: Limited inspiratory effort. Mild degree of increased markings at the lung bases suggestive of mild bibasilar atelectasis. Electronically Signed: Chapo Norman MD at 9:52 EDT ,
--- NOTE | 2024-03-11 09:10 | EDS_ITS ---
HPI History of Present Illness Chief Complaint: GI Bleed Informant: patient, family and PCP Narrative Narrative: Sent from [facility] for evaluation. I spoke with physician Dr. Mota prior to arrival. Sister currently present. She has been at [facility] since August due to inability to care for herself. She history of schizophrenia. Discussed had a recent transfer from facility to [facility] due to mood disorder and psychosis. She is sent home on a different SSRI along with melatonin. He states medication wounds Patient sleeping all the time therefore this was stopped. He started recently Seroquel and patient been tolerating it well. She has been waxing waning on her behaviors. He has had outpatient workup with labs and urine that were negative. She had a recent cough, edition states difficulty with p.o. intake. Per sister patient is not herself, normally can converse it and recognize her. On arrival per nursing patient had emesis appeared coffee- ground. From her medical records appears to be on Plavix history of CVA years ago. No cardiac history. [facility] Medical History Epilepsy Hammer toes of both feet Cerebrovascular disease Age related cataract Wears glasses Wears hearing aid Rash Walker as ambulation aid Easy bruising History of diverticulitis Gastric reflux Non-smoker Shortness of breath on exertion Vericose veins History of CVA (cerebrovascular accident) Seizure disorder Thyroid disorder Rheumatoid arthritis Diverticulitis Sleep apnea COPD (chronic obstructive pulmonary disease) Diabetes mellitus type 2 in obese Benign essential hypertension Convulsion Osteoarthritis Hypothyroid TIA (transient ischemic attack) Hypercholesterolemia Anemia in chronic illness Allergic rhinitis Glaucoma Morbid obesity Peripheral venous insufficiency GERD (gastroesophageal reflux disease) Asthma Schizophrenia Depression Anxiety disorder Hyperlipidemia Hypertension Home Medications ?Medication ?Instructions ?Recorded ?Last Taken ?Type clopidogrel 75 mg tablet 75 mg PO DAILY 03/28/13 03/10/24 History hydrochlorothiazide 25 mg tablet 25 mg PO DAILY ##0 03/28/13 03/10/24 History metoprolol succinate 100 mg 100 mg PO DAILY 03/28/13 12/19/20 History tablet,extended release 24 hr paliperidone 6 mg tablet,extended 6 mg PO QHS 01/31/17 03/10/24 History release 24 hr albuterol sulfate 90 mcg/actuation 2 puff inhalation Q6H PRN 08/10/22 Unknown Rx aerosol inhaler shortness of breath or wheezing #8.5 grams montelukast 10 mg tablet 10 mg PO QHS #90 tabs 12/03/22 03/10/24 Rx albuterol sulfate 2.5 mg/3 mL 2.5 mg inhalation DAILY PRN 11/27/23 Unknown History (0.083 %) solution for nebulization shortness of breath or wheezing atorvastatin 20 mg tablet 20 mg PO QDAY 11/27/23 03/11/24 History clonazepam 0.5 mg tablet 0.5 mg PO TID 11/27/23 03/10/24 History famotidine 10 mg tablet (Pepcid AC) 20 mg PO BID PRN heartburn 11/27/23 Unknown History fluticasone propionate 220 2 inh inhalation BID 11/27/23 03/10/24 History mcg/actuation HFA aerosol inhaler latanoprost 0.005 % eye drops 1 drp ophthalmic (eye) QHS 11/27/23 03/10/24 History loratadine 10 mg tablet 10 mg PO DAILY 11/27/23 03/10/24 History losartan 50 mg tablet 50 mg PO QDAY 11/27/23 03/10/24 History phenobarbital 60 mg tablet 120 mg PO 0800 11/27/23 Unknown History phenobarbital 60 mg tablet 180 mg PO SUMOWETHSA seizures 11/27/23 Unknown History polyethylene glycol 3350 17 17 g PO DAILY PRN CONSTIPATION 11/27/23 03/10/24 History gram/dose oral powder (Miralax) propylene glycol 1 %-glycerin 0.3 1 drp ophthalmic (eye) Q4H PRN dry 11/27/23 Unknown History % eye drops (Artificial Tears eye(s) (glycerin-peg)) acetaminophen 500 mg tablet 1,000 mg PO BID 03/11/24 03/10/24 History cholecalciferol (vitamin D3) 25 50 mcg PO DAILY 03/11/24 Unknown History mcg (1,000 unit) tablet diphenhydramine HCl 50 mg/mL 50 mg IM DAILY DISTONIA 03/11/24 03/10/24 History injection solution levothyroxine 200 mcg tablet 200 mcg PO DAILY 03/11/24 03/10/24 History nifedipine 90 mg tablet,extended 90 mg PO DAILY 03/11/24 03/10/24 History release phenobarbital 60 mg tablet 60 mg PO TUFR seizures 03/11/24 03/10/24 History quetiapine 25 mg tablet 25 mg PO BID PSYCHOSIS 03/11/24 Unknown History quetiapine 50 mg tablet 50 mg PO TID AGGITATION 03/11/24 03/10/24 History Allergy/AdvReac Type Severity Reaction Status Date / Time amoxicillin Allergy NEEDS Verified 03/11/24 08:36 FOLLOW-UP codeine Allergy Shortness Verified 03/11/24 08:36 of breath cyclobenzaprine (From Allergy NEEDS Verified 03/11/24 08:36 Flexeril) FOLLOW-UP dextromethorphan HBr (From Allergy Shortness Verified 03/11/24 08:36 Tylenol Cold Multi-Symptom) of breath diazepam (From Valium) Allergy Shortness Verified 03/11/24 08:36 of breath fluticasone (From Advair Allergy NEEDS Verified 03/11/24 08:36 Diskus) FOLLOW-UP Food Allergies: Uncoded Allergy Shortness Verified 03/11/24 08:36 of breath guaifenesin (From Tylenol Allergy Shortness Verified 03/11/24 08:36 Cold Multi-Symptom) of breath hydrocodone bitartrate (From Allergy Shortness Verified 03/11/24 08:36 Vicodin) of breath iodine Allergy Anaphylaxis Verified 03/11/24 08:36 Latex, Natural Rubber Allergy Shortness Verified 03/11/24 08:36 of breath morphine Allergy Shortness Verified 03/11/24 08:36 of breath NSAIDS (Non-Steroidal Allergy Shortness Verified 03/11/24 08:36 Anti-Inflamma of breath oxaprozin (From Daypro) Allergy NEEDS Verified 03/11/24 08:36 FOLLOW-UP oxycodone Allergy NEEDS Verified 03/11/24 08:36 FOLLOW-UP phenylephrine HCl (From Allergy Shortness Verified 03/11/24 08:36 Tylenol Cold Multi-Symptom) of breath phenytoin (From Dilantin) Allergy NEEDS Verified 03/11/24 08:36 FOLLOW-UP phenytoin sodium (From Allergy Shortness Verified 03/11/24 08:36 Dilantin) of breath phenytoin sodium extended Allergy Shortness Verified 03/11/24 08:36 (From Dilantin) of breath povidone-iodine (From Allergy BLISTERS Verified 03/11/24 08:36 Betadine) pseudoephedrine HCl (From Allergy Shortness Verified 03/11/24 08:36 Tylenol Cold Multi-Symptom) of breath salmeterol (From Advair Allergy NEEDS Verified 03/11/24 08:36 Diskus) FOLLOW-UP shellfish derived Allergy NEEDS Verified 03/11/24 08:36 FOLLOW-UP soap (From Betadine) Allergy BLISTERS Verified 03/11/24 08:36 tetracycline Allergy NEEDS Verified 03/11/24 08:36 FOLLOW-UP tositumomab iodine-131 Allergy NEEDS Verified 03/11/24 08:36 FOLLOW-UP muscle relaxers Allergy Shortness Uncoded 05/22/23 11:04 of breath Family History Other Arthritis CVA (cerebral vascular accident) Cancer Depression Diabetes Emphysema lung Hypertension Surgical History History of cholecystectomy History of tonsillectomy History of total hysterectomy History of total knee replacement History of bilateral tympanoplasty History of tubal ligation History of D&C Social History Smoking Status: Never smoker second hand exposure: Yes alcohol intake: never substance use type: does not use what type of physical activity do you participate in: walking do you feel safe at home: Yes ROS ROS ED ROS Narrative Patient not converse aiding therefore unable to obtain review of systems. EXAM Physical Exam Const Vital Signs: 03/11/24 08:31 03/11/24 08:35 03/11/24 09:06 Temperature 99.6 F H 99.6 F H Temperature Source Axillary Axillary Pulse Rate 108 H 107 H Respiratory Rate 33 H 30 H Respiratory Pattern Blood Pressure 122/62 H 115/55 L Blood Pressure Mean 82 75 Pulse Ox 93 93 93 Oxygen Delivery Method Nasal Cannula Room Air Oxygen Flow Rate (L/min) 2 2 2 03/11/24 09:24 03/11/24 09:35 03/11/24 10:00 Temperature 99.7 F H 99.7 F H Temperature Source Axillary Axillary Pulse Rate 103 H 107 H 104 H Respiratory Rate 24 H 34 H 29 H Respiratory Pattern Tachypnea Blood Pressure 102/66 102/66 Blood Pressure Mean 78 78 Pulse Ox 95 95 Oxygen Delivery Method Nasal Cannula Nasal Cannula Oxygen Flow Rate (L/min) 3 03/11/24 10:34 03/11/24 11:03 Temperature 99.7 F H Temperature Source Axillary Pulse Rate 104 H 108 H Respiratory Rate 34 H Respiratory Pattern Blood Pressure 114/69 124/76 H Blood Pressure Mean 84 92 Pulse Ox 94 96 Oxygen Delivery Method Nasal Cannula Nasal Cannula Oxygen Flow Rate (L/min) 3 3 Positive well nourished Constitutional Narrative: Awake, 2 L nasal cannula no respiratory distress, following some commands. HEENT Reports moist mucous membranes normocephalic and atraumatic Eyes EOMs intact bilaterally and conjunctivae normal General Eye ED: Yes normal appearance of both eyes Neck no lymphadenopathy and supple General: Negative for tenderness Chest Wall Chest: Negative for tenderness Resp Resp Narrative: Coarse breath sounds. Effort and Inspection: Negative for respiratory distress Cardio regular rhythm and no murmurs Rate: tachycardic Peripheral Pulses: pulses 2+ throughout GI normal to inspection, nondistended, normoactive bowel sounds and non-tender Palpation: Negative for guarding or rebound tenderness present Extremity normal to inspection General Extremety ED: Negative for edema or tenderness General Extremity: Negative for edema Neuro No no sensory deficits noted Neuro Narrative: Awake, no focal deficits. Sensorium / Orientation: awake Skin no rashes or lesions noted and no wounds MDM MDM MDM Narrative Medical decision making narrative: Interventions / MDM: Differential diagnosis: UTI, encephalopathy, COVID-19 infection, Diagnosis considered but do not suspect: Intracranial hemorrhage however CT negative. My EKG interpretation: Sinus rate of 108, no ST or T wave changes, first-degree AV block. Imaging independently reviewed and interpreted by myself: CT brain: No acute process. 1 view chest x-ray: No acute process also read by radiology. External documents reviewed: N/A Test considered but not ordered:N/A ED course: Temp elevation 99.9 pulse 107 respirations 33. Sepsis labs were ordered. Aerosol treatments ordered. Will straight catheter urine. CT head and chest x-ray. Gastroccult sent with specimen scraped from her tongue. 1100: Gastroccult negative. White count 9.7 lactic acid 1.8. Creatinine 1.26 slightly up from previous 0.96 last month. She was given fluids. CT brain returned negative. Chest x-ray negative. Cath urine specimen positive for infection. Edition COVID testing also positive. Sisters are currently present, she seems to respond more to words at this time she does not have her hearing aid on. Concerns from her physician with increasing difficulty swallowing with her renal insufficiency. She continued on oxygen. She is in no respiratory distress. Will discuss with hospitalist service for admission. 1110: I spoke with Dr. Fong for admission to PCU. Will start Solu-Medrol. I did rediscuss with Dr. Panda Mota patient's physician at facility and updated on the findings. Re-evaluation: stable Disposition discussed with patient/family/significant other: Patient and family Case discussed with consulting clinician: Hospitalist, PCP This note was generated with [employer] dictation software. It may contain incorrect words, spelling, and punctuation that were not noted in checking the note before signing. Lab Data Attestation: I reviewed the patient's lab results. Labs: Laboratory Results - last 24 hr 03/11/24 03/11/24 08:59 10:12 WBC 9.7 RBC 4.23 Hgb 12.9 Hct 39.4 MCV 93.1 MCH 30.5 MCHC 32.7 RDW Std Deviation 56.0 H RDW Coeff of [place] 16.4 H Plt Count 232 MPV 10.5 Immature Gran % (Auto) 0.700 Neut % (Auto) 77.6 H Lymph % (Auto) 12.7 L [place] % (Auto) 8.7 Eos % (Auto) 0.1 Baso % (Auto) 0.2 Absolute Neuts (auto) 7.5 Absolute Lymphs (auto) 1.23 Nucleated RBC % 0 PT 16.4 H INR 1.3 APTT 52.8 H Sodium 138 Potassium 4.9 Chloride 100 Carbon Dioxide 31.0 Anion Gap 7 BUN 34 H Creatinine 1.26 H Estim Creat Clear Calc 49.97 Est GFR (MDRD) Af Amer 53 L Est GFR (MDRD) Non-Af 44 L BUN/Creatinine Ratio 27.0 H Glucose 108 H Lactic Acid 1.8 Calcium 10.6 H Magnesium 1.9 Total Bilirubin 0.30 AST 41 H ALT 40 Alkaline Phosphatase 170 H Lactate Dehydrogenase 250 H Total Creatine Kinase 429 H Troponin I High Sens 25 C-React Prot Ext Range 141.00 H B-Natriuretic Peptide 82.5 Total Protein 8.6 H Albumin 3.3 Globulin 5.3 H Albumin/Globulin Ratio 0.6 L Urine Color Yellow Urine Clarity Cloudy Urine pH 8.0 Ur Specific [place] 1.010 Urine Protein 100 H Urine Glucose (UA) Normal Urine Ketones Negative Urine Occult Blood 50 H Urine Nitrite Positive H Urine Bilirubin Negative Urine Urobilinogen Normal Ur Leukocyte Esterase 500 H Urine RBC 0-5 SEEN Urine WBC 10-25 SEEN Ur Squamous Epith Cells 0-5 SEEN Urine Bacteria 3+ Urine Mucus 0 SEEN Radiography Diagnostic Testing: Clinical Impression(s) from Imaging Studies Chest X-Ray 03/11/24 08:41 IMPRESSION: Limited inspiratory effort. Mild degree of increased markings at the lung bases suggestive of mild bibasilar atelectasis. Electronically Signed: Chapo Norman MD at 9:52 EDT , Brain CT 03/11/24 09:15 IMPRESSION: Chronic involutional changes of the brain. Electronically Signed: Chapo Norman MD at 9:50 EDT , Discharge Plan Dx/Rx/DC Orders Clinical Impression: Acute UTI, COPD (chronic obstructive pulmonary disease), Schizophrenia, COVID-19, Encephalopathy, Acute renal insufficiency, Dysphagia Disposition Disposition: Acute Care [facility] Discharge Date/Time: 03/11/24 12:18
--- NOTE | 2024-03-11 09:15 | CT_ITS ---
STUDY: CT BRAIN WITHOUT CONTRAST REASON FOR EXAM: Female, 73 years old. Altered ms. Hemoptysis. RADIATION DOSAGE (If Supplied By Facility): CTDIvol = ( 44.99 ) mGy, DLP = ( 931.09 ) mGycm TECHNIQUE: Transaxial CT imaging of the brain was performed without administration of intravenous contrast material. Individualized dose optimization techniques were used for this CT. COMPARISON: Comparison is made with prior study dated June 16, 2021. FINDINGS: Normal soft tissue structures. There is hyperostosis frontalis internus. There is mild cerebral atrophy with widening of the extra-axial spaces and ventricular dilatation. Normal white matter tracts of the cerebral hemispheres. Normal basal ganglia and thalami. Normal brainstem. Normal cerebellum. There is no intracranial hemorrhage. There are no findings of an acute ischemic infarction. Normal visualized paranasal sinuses. CT/Brain/Head without Contrast IMPRESSION: Chronic involutional changes of the brain. Electronically Signed: Chapo Norman MD at 9:50 EDT ,
[2024-03-11 09:16] LABS: Absolute Lymphocyte Count 1.23 X10^3/uL (0.83-4.51); Absolute Neutrophil Count 7.5 X10^3/uL (2.0-7.7); Basophil# 0.02 X10^3/uL; Basophil% 0.2 % (0-1); Eosinophil# 0.01 X10^3/uL; Eosinophils% 0.1 % (0-5); Hematocrit 39.4 % (37-47); Hemoglobin 12.9 g/dL (12.0-15.0); Lymphocyte # 1.23 X10^3/ul (0.83-4.51); Lymphocyte % 12.7 % (19-41); Mean Corp Hgb Conc 32.7 g/dL (32-36); Mean Corpuscular Hgb 30.5 pg (27.0-32.0); Mean Corpuscular Volume 93.1 fL (81-99); Mean Platelet Vol. 10.5 fl (6.2-12.0); Monocyte# 0.84 X10^3/uL; Monocyte% 8.7 % (0-10); NRBC Flagged by Analyzer 0 % (0-5); Neutrophil # 7.52 X10^3/uL (2.7-7.7); Neutrophil % 77.6 % (47-70); Platelet Count 232 K/mm3 (150-450); RBC Distribution Width CV 16.4 % (11.6-14.6); Red Blood Count 4.23 M/mm3 (4.2-5.4); White Blood Count 9.7 K/mm3 (4.4-11.0)
--- NOTE | 2024-03-11 09:16 | ED.RN ---
Patient transported to CT
[2024-03-11] MEDS: Ipratropium/Albuterol Sulfate 3 ML AMPUL.NEB INHALATION (09:24)
[2024-03-11 09:40] LABS: ALB/GLOB Ratio 0.6 RATIO (0.9-2.4); AST(SGOT) 41 U/L (15-37); Alanine Aminotransfer ALT/SGPT 40 U/L (13-56); Albumin, Serum 3.3 g/dL (3.2-5.0); Alkaline Phosphatase 170 U/L (45-117); Anion Gap 7 (5-15); BUN 34 mg/dL (7-18); Calcium,Total 10.6 mg/dL (8.5-10.1); Chloride 100 mmol/L (98-107); Creatinine, Serum 1.26 mg/dL (0.55-1.02); EST Glomerular Filtration Rate 44 mL/min (>60); Est Glom Filt Rate - Afr Amer 53 mL/min (>60); Estimated Creatinine Clearance 49.97 ml/min; Globulin 5.3 g/dL (2.2-4.2); Glucose 108 mg/dL (74-106); Potassium 4.9 mmol/L (3.5-5.1); Protein, Total 8.6 g/dL (6.4-8.2); Sodium Level 138 mmol/L (136-145)
[2024-03-11 09:42] LABS: Lactic Acid 1.8 mmol/L (0.4-1.9)
[2024-03-11 09:58] LABS: International Normalized Ratio 1.3; Prothrombin Time (Protime)PT. 16.4 SECONDS (11.7-14.9)
[2024-03-11 09:59] LABS: Partial Thromboplast Time 52.8 Seconds (24.1-36.2)
[2024-03-11 10:16] LABS: Mucous, Urine 0 SEEN /hpf (<or=2+)
[2024-03-11 10:22] LABS: Color, Urine Yellow (Yellow); Glucose, Dipstick Normal (Normal); Ketone-Dipstick Negative (Negative); Leukocyte Esterase-Dipstick 500 /ul (Negative); Nitrite-Dipstick Positive (Negative); Occult Blood-Urine 50 /ul (Negative); Protein-Dipstick 100 mg/dl (Negative); Urine Bilirubin Dipstick Negative (Negative); Urine Clarity Cloudy (Clear); Urine Urobilinogen Normal (Normal)
[2024-03-11 10:28] LABS: Bacteria 3+ /hpf (None Seen); White Blood Cells 10-25 SEEN /hpf (0-5)
[2024-03-11 10:29] LABS: Red Blood Cells-Urine 0-5 SEEN /hpf (0-5); Squamous Epithelial Cells - UA 0-5 SEEN /hpf (5-10)
[2024-03-11] MEDS: Ceftriaxone 1 GM/50 ML BAG IV (11:01)
--- NOTE | 2024-03-11 11:09 | NURSING ---
DR LARRY HAINES
[2024-03-11] MEDS: 0.9% Normal Saline (1000mL) 1,000 ML 100 ML IV (11:13)
--- NOTE | 2024-03-11 11:14 | PCM.HP.STD ---
HPI - General General Date of Admission: 03/11/24 Date of Service: 03/11/24 Chief Complaint: Shortness of breath, hypoxia, suspected hematemesis HPI Narrative SIERRA MORRISON, is a 73 F with history of for schizophrenia was brought to ED by EMS from [facility] for coffee-ground emesis/hematemesis. Patient is in [place] [facility] for history of schizophrenia, severe depression with psychosis. Patient did not speak single word and she is mute although she seems trying to open mouth and speak. Therefore history is difficult and incomplete and mainly gathered from 2 sisters in the ER, ED physician in the chart. He talked to Dr. Mota from [facility] and said recently her SSRI was changed to. She is not talking much, participating in activity and lays down on the bed all the time. In ED, she was found to have low-grade fever Tmax 99.7, mild tachycardia on 108/m on 2 to 3 L of oxygen. She was tested SARS-CoV-2 PCR positive although she was tested negative probably antigen in jail yesterday [facility] Medical History Epilepsy Hammer toes of both feet Cerebrovascular disease Age related cataract Wears glasses Wears hearing aid Rash Walker as ambulation aid Easy bruising History of diverticulitis Gastric reflux Non-smoker Shortness of breath on exertion Vericose veins History of CVA (cerebrovascular accident) Seizure disorder Thyroid disorder Rheumatoid arthritis Diverticulitis Sleep apnea COPD (chronic obstructive pulmonary disease) Diabetes mellitus type 2 in obese Benign essential hypertension Convulsion Osteoarthritis Hypothyroid TIA (transient ischemic attack) Hypercholesterolemia Anemia in chronic illness Allergic rhinitis Glaucoma Morbid obesity Peripheral venous insufficiency GERD (gastroesophageal reflux disease) Asthma Schizophrenia Depression Anxiety disorder Hyperlipidemia Hypertension Home Medications ?Medication ?Instructions ?Recorded ?Last Taken ?Type clopidogrel 75 mg tablet 75 mg PO DAILY 03/28/13 03/10/24 History escitalopram oxalate 20 mg tablet 20 mg PO DAILY 03/28/13 Unknown History hydrochlorothiazide 25 mg tablet 25 mg PO DAILY ##0 03/28/13 03/10/24 History metoprolol succinate 100 mg 100 mg PO DAILY 03/28/13 12/19/20 History tablet,extended release 24 hr paliperidone 6 mg tablet,extended 6 mg PO QHS 01/31/17 03/10/24 History release 24 hr albuterol sulfate 90 mcg/actuation 2 puff inhalation Q6H PRN 08/10/22 Unknown Rx aerosol inhaler shortness of breath or wheezing #8.5 grams montelukast 10 mg tablet 10 mg PO QHS #90 tabs 12/03/22 03/10/24 Rx albuterol sulfate 2.5 mg/3 mL 2.5 mg inhalation DAILY PRN 11/27/23 Unknown History (0.083 %) solution for nebulization shortness of breath or wheezing atorvastatin 20 mg tablet 20 mg PO QDAY 11/27/23 03/11/24 History clonazepam 0.5 mg tablet 0.5 mg PO TID 11/27/23 03/10/24 History famotidine 10 mg tablet (Pepcid AC) 20 mg PO BID PRN heartburn 11/27/23 Unknown History fluticasone propionate 220 2 inh inhalation BID 11/27/23 03/10/24 History mcg/actuation HFA aerosol inhaler latanoprost 0.005 % eye drops 1 drp ophthalmic (eye) QHS 11/27/23 03/10/24 History loratadine 10 mg tablet 10 mg PO DAILY 11/27/23 03/10/24 History losartan 50 mg tablet 50 mg PO QDAY 11/27/23 03/10/24 History phenobarbital 60 mg tablet 120 mg PO 0800 11/27/23 Unknown History phenobarbital 60 mg tablet 180 mg PO SUMOWETHSA seizures 11/27/23 Unknown History polyethylene glycol 3350 17 17 g PO DAILY PRN CONSTIPATION 11/27/23 03/10/24 History gram/dose oral powder (Miralax) propylene glycol 1 %-glycerin 0.3 1 drp ophthalmic (eye) Q4H PRN dry 11/27/23 Unknown History % eye drops (Artificial Tears eye(s) (glycerin-peg)) acetaminophen 500 mg tablet 1,000 mg PO BID 03/11/24 03/10/24 History cholecalciferol (vitamin D3) 25 50 mcg PO DAILY 03/11/24 Unknown History mcg (1,000 unit) tablet diphenhydramine HCl 50 mg/mL 50 mg IM DAILY DISTONIA 03/11/24 03/10/24 History injection solution levothyroxine 200 mcg tablet 200 mcg PO DAILY 03/11/24 03/10/24 History nifedipine 90 mg tablet,extended 90 mg PO DAILY 03/11/24 03/10/24 History release phenobarbital 60 mg tablet 60 mg PO TUFR seizures 03/11/24 03/10/24 History quetiapine 25 mg tablet 25 mg PO BID PSYCHOSIS 03/11/24 Unknown History quetiapine 50 mg tablet 50 mg PO TID AGGITATION 03/11/24 03/10/24 History Allergy/AdvReac Type Severity Reaction Status Date / Time amoxicillin Allergy NEEDS Verified 03/11/24 08:36 FOLLOW-UP codeine Allergy Shortness Verified 03/11/24 08:36 of breath cyclobenzaprine (From Allergy NEEDS Verified 03/11/24 08:36 Flexeril) FOLLOW-UP dextromethorphan HBr (From Allergy Shortness Verified 03/11/24 08:36 Tylenol Cold Multi-Symptom) of breath diazepam (From Valium) Allergy Shortness Verified 03/11/24 08:36 of breath fluticasone (From Advair Allergy NEEDS Verified 03/11/24 08:36 Diskus) FOLLOW-UP Food Allergies: Uncoded Allergy Shortness Verified 03/11/24 08:36 of breath guaifenesin (From Tylenol Allergy Shortness Verified 03/11/24 08:36 Cold Multi-Symptom) of breath hydrocodone bitartrate (From Allergy Shortness Verified 03/11/24 08:36 Vicodin) of breath iodine Allergy Anaphylaxis Verified 03/11/24 08:36 Latex, Natural Rubber Allergy Shortness Verified 03/11/24 08:36 of breath morphine Allergy Shortness Verified 03/11/24 08:36 of breath NSAIDS (Non-Steroidal Allergy Shortness Verified 03/11/24 08:36 Anti-Inflamma of breath oxaprozin (From Daypro) Allergy NEEDS Verified 03/11/24 08:36 FOLLOW-UP oxycodone Allergy NEEDS Verified 03/11/24 08:36 FOLLOW-UP phenylephrine HCl (From Allergy Shortness Verified 03/11/24 08:36 Tylenol Cold Multi-Symptom) of breath phenytoin (From Dilantin) Allergy NEEDS Verified 03/11/24 08:36 FOLLOW-UP phenytoin sodium (From Allergy Shortness Verified 03/11/24 08:36 Dilantin) of breath phenytoin sodium extended Allergy Shortness Verified 03/11/24 08:36 (From Dilantin) of breath povidone-iodine (From Allergy BLISTERS Verified 03/11/24 08:36 Betadine) pseudoephedrine HCl (From Allergy Shortness Verified 03/11/24 08:36 Tylenol Cold Multi-Symptom) of breath salmeterol (From Advair Allergy NEEDS Verified 03/11/24 08:36 Diskus) FOLLOW-UP shellfish derived Allergy NEEDS Verified 03/11/24 08:36 FOLLOW-UP soap (From Betadine) Allergy BLISTERS Verified 03/11/24 08:36 tetracycline Allergy NEEDS Verified 03/11/24 08:36 FOLLOW-UP tositumomab iodine-131 Allergy NEEDS Verified 03/11/24 08:36 FOLLOW-UP muscle relaxers Allergy Shortness Uncoded 05/22/23 11:04 of breath Family History Other Arthritis CVA (cerebral vascular accident) Cancer Depression Diabetes Emphysema lung Hypertension Surgical History History of cholecystectomy History of tonsillectomy History of total hysterectomy History of total knee replacement History of bilateral tympanoplasty History of tubal ligation History of D&C Social History Smoking Status: Never smoker second hand exposure: Yes alcohol intake: never substance use type: does not use what type of physical activity do you participate in: walking do you feel safe at home: Yes ROS ROS Narrative Patient is mute, eyes open but did not communicate Therefore 14 system ROS unobtainable Review of Systems ROS Unobtainable: due to encephalopathy, due to mental condition and due to mental status Vital Signs Vital Signs Vital Signs: 03/11/24 08:31 03/11/24 08:35 03/11/24 09:06 Temperature 99.6 F H 99.6 F H Temperature Source Axillary Axillary Pulse Rate 108 H 107 H Respiratory Rate 33 H 30 H Respiratory Pattern Blood Pressure 122/62 H 115/55 L Blood Pressure Mean 82 75 Pulse Ox 93 93 93 Oxygen Delivery Method Nasal Cannula Room Air Oxygen Flow Rate (L/min) 2 2 2 03/11/24 09:24 03/11/24 09:35 03/11/24 10:00 Temperature 99.7 F H 99.7 F H Temperature Source Axillary Axillary Pulse Rate 103 H 107 H 104 H Respiratory Rate 24 H 34 H 29 H Respiratory Pattern Tachypnea Blood Pressure 102/66 102/66 Blood Pressure Mean 78 78 Pulse Ox 95 95 Oxygen Delivery Method Nasal Cannula Nasal Cannula Oxygen Flow Rate (L/min) 3 03/11/24 10:34 03/11/24 11:03 Temperature 99.7 F H Temperature Source Axillary Pulse Rate 104 H 108 H Respiratory Rate 34 H Respiratory Pattern Blood Pressure 114/69 124/76 H Blood Pressure Mean 84 92 Pulse Ox 94 96 Oxygen Delivery Method Nasal Cannula Nasal Cannula Oxygen Flow Rate (L/min) 3 3 Weight Weight: 287 lb 4.197 oz Body Mass Index (BMI) 54.3 Physical Exam Narrative General: Awake. Noncommunicative. Mute. Blank look. Orientation cannot be ascertained but looks disoriented HEENT: Atraumatic, PERRLA, EOMI, Normocephalic Oral: Oral mucosa dry. No Gingival or Mucosal Lesions/ Ulcerations Neck: Supple, No JVD, Negative Carotid Bruits Chest wall/Lungs: Air entry diminished in bilateral lung bases. Mild basilar coarse crepitations Cardiovascular: Sinus tachycardia, Normal S1, Normal S2, systolic murmur. Abdomen: Bowel Sounds Present, Soft, Non Tender, Non-Distended : No dysuria. No renal angle tenderness. No suprapubic tenderness. Extremities: Mild nonpitting edema, Capillary Refill Less than 3 Seconds Skin: No rashes, No breakdown Musculoskeletal: Bilateral TKR. ROM severely restricted, bilateral hips and knee joints stiff. Neurological:DTR 2+/4. Detail neuroexam unobtainable but does not seem focal neurological deficit. Psych/Mental Status: Flat affect Results Lab / Micro Data 03/11/24 08:59 03/11/24 08:59 Labs: Laboratory Results - last 24 hr 03/11/24 08:59: WBC 9.7, RBC 4.23, Hgb 12.9, Hct 39.4, MCV 93.1, MCH 30.5, MCHC 32.7, RDW Std Deviation 56.0 H, RDW Coeff of Piedad 16.4 H, Plt Count 232, MPV 10.5, Immature Gran % (Auto) 0.700, Neut % (Auto) 77.6 H, Lymph % (Auto) 12.7 L, Murray % (Auto) 8.7, Eos % (Auto) 0.1, Baso % (Auto) 0.2, Absolute Neuts (auto) 7.5, Absolute Lymphs (auto) 1.23, Nucleated RBC % 0, PT 16.4 H, INR 1.3, APTT 52.8 H, Sodium 138, Potassium 4.9, Chloride 100, Carbon Dioxide 31.0, Anion Gap 7, BUN 34 H, Creatinine 1.26 H, Estim Creat Clear Calc 49.97, Est GFR (MDRD) Af Amer 53 L, Est GFR (MDRD) Non-Af 44 L, BUN/Creatinine Ratio 27.0 H, Glucose 108 H, Lactic Acid 1.8, Calcium 10.6 H, Total Bilirubin 0.30, AST 41 H, ALT 40, Alkaline Phosphatase 170 H, Total Protein 8.6 H, Albumin 3.3, Globulin 5.3 H, Albumin/Globulin Ratio 0.6 L 03/11/24 10:12: Urine Color Yellow, Urine Clarity Cloudy, Urine pH 8.0, Ur Specific [place] 1.010, Urine Protein 100 H, Urine Glucose (UA) Normal, Urine Ketones Negative, Urine Occult Blood 50 H, Urine Nitrite Positive H, Urine Bilirubin Negative, Urine Urobilinogen Normal, Ur Leukocyte Esterase 500 H, Urine RBC 0-5 SEEN, Urine WBC 10-25 SEEN, Ur Squamous Epith Cells 0-5 SEEN, Urine Bacteria 3+, Urine Mucus 0 SEEN Micro: Microbiology 03/11/24 09:01 Mucosa - Nose SARS-CoV-2, Influenza & RSV (PCR) - Final SARS-CoV-2 (COVID 19 PCR) 03/11/24 09:01 Vomitus Gastric Occult Blood - Final Imaging Radiology Impression Chest X-Ray 03/11/24 08:41 IMPRESSION: Limited inspiratory effort. Mild degree of increased markings at the lung bases suggestive of mild bibasilar atelectasis. Electronically Signed: Chapo Norman MD at 9:52 EDT , Brain CT 03/11/24 09:15 IMPRESSION: Chronic involutional changes of the brain. Electronically Signed: Chapo Norman MD at 9:50 EDT , Assessment & Plan Assessment/Plan (1) Encephalopathy: (2) COVID-19: PLAN: Plan This is 73-year-old female is admitted from [facility] for hematemesis, change in mental status and COVID-19 infection. As per sister patient had mild cough for last 2 to 3 days. 1. Mild hypoxia probably due to COVID-19 pneumonia: Chest x-ray individually reviewed. Hypoventilation, increased marking at the bilateral lung bases looks atelectasis. Patient is being admitted in PCU. COVID-19 PCR positive. RSV and influenza negative. Patient is started on IV dexamethasone and IV remdesivir. She is vaccinated with booster against COVID-19 2. Mild chronic persistent asthma with exacerbation due to COVID-19 pneumonia and, severe obstructive sleep apnea: Patient follows in pulmonary office with Dr. Saldana and Heide Veliz. Last seen in November 2023, asthma controlled on Flovent. CPAP at 13 cm of H2O 3. Possible upper GI bleed: As per EMS jail patient had hematemesis although gastric occult blood test negative. Last EGD in December 2020 shows normal esophagus, stomach and duodenum. GI consulted. Patient may be stable for EGD tomorrow. 4. Acute change in mental status/encephalopathy probably medications with history of schizophrenia, severe depression with psychotic symptoms: Patient SSRI was recently changed. Patient on paliperidone monthly injection along with Seroquel and escitalopram. Patient might be overmedicated therefore will hold Seroquel. Continue escitalopram 5. Type 2 diabetes mellitus: Glucose in BMP 108. Likely to go up on steroid. Accu-Chek before meals and at bedtime with Humalog sliding scale coverage and hypoglycemia protocol. 6. Hypertension: Blood pressure in normal range. Systolic BP in 110s to 120s. Hold antihypertensive medication. 7. Possible chronic epilepsy: Patient on high dose of phenobarbital. Hold now but will reevaluate tomorrow depending on the mental status. DVT prophylaxis: High risk. Hold pharmacological prophylaxis due to concern for GI bleed. Bilateral SCDs Living will/advanced directive/end of life care: Patient does have living will or advanced directive. His sister present in ED is power of manager desktop for health after discussion of benefits/risks procedures involved with full code, DNR CC arrest and DNR CC, the patient and her sister opted for DNR CC arrest with no intubation. Patient doesn't want artificial life support including intubation, tube feed, ventilator and/chest compression, central venous catheter, vasopressor and DC shock if needed Total time spent in [id number] encounter in discussion of advanced directive 17 minutes. 03/11/24 09:01 Mucosa - Nose SARS-CoV-2, Influenza & RSV (PCR) - Final SARS-CoV-2 (COVID 19 PCR) 03/11/24 09:01 Vomitus Gastric Occult Blood - Final Laboratory Results 03/11/24 08:59: WBC 9.7, RBC 4.23, Hgb 12.9, Hct 39.4, MCV 93.1, MCH 30.5, MCHC 32.7, RDW Std Deviation 56.0 H, RDW Coeff of Piedad 16.4 H, Plt Count 232, MPV 10.5, Immature Gran % (Auto) 0.700, Neut % (Auto) 77.6 H, Lymph % (Auto) 12.7 L, Murray % (Auto) 8.7, Eos % (Auto) 0.1, Baso % (Auto) 0.2, Absolute Neuts (auto) 7.5, Absolute Lymphs (auto) 1.23, Nucleated RBC % 0, PT 16.4 H, INR 1.3, APTT 52.8 H, Sodium 138, Potassium 4.9, Chloride 100, Carbon Dioxide 31.0, Anion Gap 7, BUN 34 H, Creatinine 1.26 H, Estim Creat Clear Calc 49.97, Est GFR (MDRD) Af Amer 53 L, Est GFR (MDRD) Non-Af 44 L, BUN/Creatinine Ratio 27.0 H, Glucose 108 H, Lactic Acid 1.8, Calcium 10.6 H, Magnesium Pending, Total Bilirubin 0.30, AST 41 H, ALT 40, Alkaline Phosphatase 170 H, Lactate Dehydrogenase Pending, Total Creatine Kinase Pending, Troponin I High Sens Pending, C-React Prot Ext Range Pending, B-Natriuretic Peptide Pending, Total Protein 8.6 H, Albumin 3.3, Globulin 5.3 H, Albumin/Globulin Ratio 0.6 L, Phenobarbital Pending 03/11/24 10:12: Urine Color Yellow, Urine Clarity Cloudy, Urine pH 8.0, Ur Specific [place] 1.010, Urine Protein 100 H, Urine Glucose (UA) Normal, Urine Ketones Negative, Urine Occult Blood 50 H, Urine Nitrite Positive H, Urine Bilirubin Negative, Urine Urobilinogen Normal, Ur Leukocyte Esterase 500 H, Urine RBC 0-5 SEEN, Urine WBC 10-25 SEEN, Ur Squamous Epith Cells 0-5 SEEN, Urine Bacteria 3+, Urine Mucus 0 SEEN 03/11/24 12:34: Hgb Pending, Hct Pending, Procalcitonin Pending Clinical Impression(s) from Imaging Studies Chest X-Ray 03/11/24 08:41 IMPRESSION: Limited inspiratory effort. Mild degree of increased markings at the lung bases suggestive of mild bibasilar atelectasis. Brain CT 03/11/24 09:15 IMPRESSION: Chronic involutional changes of the brain. Charges/Coding Visit Charges Inpatient E&M: 78302 Init Hosp L3 Procedures Hospitalists Procedures: 60773 Advncd Care Plan 30 Min
--- NOTE | 2024-03-11 11:28 | NURSING ---
PCU LARRY UTI, COVID 19 INFECTION, ENCEPHALOPATHY
[2024-03-11] MEDS: MethylPREDNISolone 125 MG/2 ML Vial 60 MG IV (11:36)
[2024-03-11] MEDS: Pantoprazole Sodium 80 MG in 0.9% Normal Saline (50mL Bag) 15 ML 420 MG IV BOLUS (11:37)
[2024-03-11 13:02] LABS: Hematocrit 37.7 % (37-47); Hemoglobin 12.1 g/dL (12.0-15.0)
[2024-03-11 13:08] LABS: CPK Total, Creatine Kinase 429 U/L (26-192); LDH 250 U/L (84-246); Magnesium 1.9 mg/dL (1.6-2.6); Troponin-I HS 25 pg/mL (3.0-54.0)
[2024-03-11 13:29] LABS: BNP,B-Type NATRIURETIC PEPTIDE 82.5 pg/mL (0-100)
[2024-03-11 13:30] LABS: Procalcitonin 0.15 ng/mL (0.00-0.09)
[2024-03-11] MEDS: Remdesivir 200 MG in 0.9% Normal Saline (250mL Bag) 210 ML 250 MG IV (14:00)
[2024-03-11] MEDS: dexAMETHasone 10 MG/ML Vial 6 MG IV (14:29)
[2024-03-11] MEDS: Pantoprazole Sodium 40 MG in 0.9% Normal Saline (100mL MB+) 100 ML 330 MG IV (15:57)
[2024-03-11 18:20] LABS: Hematocrit 36.1 % (37-47); Hemoglobin 12.1 g/dL (12.0-15.0)
[2024-03-11] MEDS: Acetaminophen 650 MG Suppository RC (20:14)
[2024-03-11] MEDS: 0.9% Saline Lock 10 ML Syringe IV (20:14)
[2024-03-11] MEDS: Budesonide Respules 0.5 MG/2 ML AMPUL.NEB. INHALATION (20:36)
--- NOTE | 2024-03-11 21:33 | PCM.HOSP.N ---
Hospitalist Note Patient BP with SBP 80-90s, MAP 63. Reviewed todays note. Will administer IVF bolus and reassess. Next Hgb check midnight. If BP still lower despite judicious IVFs will check Hgb earlier.
[2024-03-11] MEDS: 0.9% Normal Saline (500mL Bag) 500 ML 999 ML IV (22:05)
[2024-03-11] MEDS: Latanoprost 0.005% 1 Bottle 1 DRP EACH EYE (22:37)
[2024-03-12] VITALS (27 sets, daily range): BP systolic 82–160; BP diastolic 48–76; PULSE 70–117; RESP 14–34; TEMP 36.6–38.4; O2SAT 88–100; BMI 49.8
[2024-03-12 01:25] LABS: Hematocrit 34.9 % (37-47); Hemoglobin 11.8 g/dL (12.0-15.0)
[2024-03-12] MEDS: Pantoprazole Sodium 40 MG in 0.9% Normal Saline (100mL MB+) 100 ML 330 MG IV ×2 (01:53→13:47)
--- NOTE | 2024-03-12 03:25 | RAD_ITS ---
INDICATION: DYSPNEA, HYPOXIA EXAMINATION/TECHNIQUE: X-RAY - XR Chest 1 View COMPARISON: Chest radiograph previous day. Findings: Single frontal view of the chest. Low lung volumes. Patient is rotated. LUNG PARENCHYMA: Streaky bibasilar airspace disease. PLEURA: No pleural effusion. No pneumothorax. HEART/GREAT VESSELS: Cardiomediastinal silhouette is unremarkable. BONES: Osseous structures are unremarkable for age. RAD/Chest 1 View (Portable) IMPRESSION: Low lung volumes and patient rotation with streaky bibasilar atelectasis versus other airspace disease, to include aspiration or other pneumonia. Recommend follow-up to resolution.. Electronically Signed: Ashok Julien MD at 5:20 EDT ,
--- NOTE | 2024-03-12 03:28 | VDLE_ITS ---
Reason For Study: Shortness of Breath RIGHT LEFT GSV is normal. GSV is normal. CFV is compressible, spontaneous, phasic, CFV is compressible, spontaneous, phasic, competent and demonstrates normal competent, and demonstrates normal augmentation. augmentation. FV is compressible, spontaneous, phasic, FV is compressible, spontaneous, phasic, competent and demonstrates normal competent and demonstrates normal augmentation. augmentation. POP V is compressible, spontaneous, phasic, POP V is compressible, spontaneous, phasic, competent and demonstrates normal competent and demonstrates normal augmentation. augmentation. T/P Trunk is compressible. T/P Trunk is compressible. PTV is compressible. PTV is compressible. RT PerV is compressible. LT PerV is compressible. Procedure This is a venous duplex using B-mode, color flow and spectral Doppler. Exam performed portable in ICU/CCU. The exam was diagnostic. The study was technically difficult. A preliminary report was called and/or faxed to [facility]. VL/Venous Duplex US - Ambrose Extrem Interpretation Summary Deep veins of the lower extremities are bilaterally patent and compressible seg mentally. There is no evidence of deep vein thrombosis on either side. Valvular competence appears in tact within the proximal deep venous systems bilaterally. The great saphenous veins appear bila terally patent and compressible segmentally. Ordering Physician: Ibeth Parker Referring Physician: Richa Patel Performed By: Corona Givens, RVT
[2024-03-12] MEDS: Acetaminophen 650 MG Suppository RC ×2 (04:21→08:31)
[2024-03-12 06:30] LABS: Absolute Lymphocyte Count 0.94 X10^3/uL (0.83-4.51); Absolute Neutrophil Count 15.9 X10^3/uL (2.0-7.7); Basophil# 0.02 X10^3/uL; Basophil% 0.1 % (0-1); Hematocrit 34.6 % (37-47); Hemoglobin 11.4 g/dL (12.0-15.0); Lymphocyte # 0.94 X10^3/ul (0.83-4.51); Lymphocyte % 5.3 % (19-41); Mean Corp Hgb Conc 32.9 g/dL (32-36); Mean Corpuscular Hgb 30.6 pg (27.0-32.0); Mean Platelet Vol. 10.3 fl (6.2-12.0); Monocyte# 0.92 X10^3/uL; Monocyte% 5.2 % (0-10); NRBC Flagged by Analyzer 0 % (0-5); Neutrophil # 15.85 X10^3/uL (2.7-7.7); POSITIVE MORPHOLOGY YES; Platelet Count 185 K/mm3 (150-450); RBC Distribution Width CV 16.5 % (11.6-14.6); RBC Distribution Width SD 55.4 fl (35.1-43.9); Red Blood Count 3.72 M/mm3 (4.2-5.4); White Blood Count 17.8 K/mm3 (4.4-11.0)
[2024-03-12 06:32] LABS: International Normalized Ratio 1.3; Prothrombin Time (Protime)PT. 16.5 SECONDS (11.7-14.9)
[2024-03-12 06:33] LABS: Differential Indicated SCAN CRITERIA MET
[2024-03-12 06:34] LABS: Partial Thromboplast Time 50.1 Seconds (24.1-36.2)
[2024-03-12 07:03] LABS: Bedside Glucose 140 mg/dL (74-106)
[2024-03-12] MEDS: Budesonide Respules 0.5 MG/2 ML AMPUL.NEB. INHALATION ×2 (07:13→19:24)
[2024-03-12 07:26] LABS: ALB/GLOB Ratio 0.6 RATIO (0.9-2.4); AST(SGOT) 33 U/L (15-37); Alanine Aminotransfer ALT/SGPT 30 U/L (13-56); Albumin, Serum 2.6 g/dL (3.2-5.0); Alkaline Phosphatase 138 U/L (45-117); Anion Gap 9 (5-15); BUN 52 mg/dL (7-18); BUN/Creat Ratio 36.6 RATIO (10-20); Calcium,Total 9.1 mg/dL (8.5-10.1); Chloride 108 mmol/L (98-107); Creatinine, Serum 1.42 mg/dL (0.55-1.02); EST Glomerular Filtration Rate 38 mL/min (>60); Est Glom Filt Rate - Afr Amer 46 mL/min (>60); Estimated Creatinine Clearance 45.24 ml/min; Globulin 4.5 g/dL (2.2-4.2); Glucose 140 mg/dL (74-106); Potassium 4.2 mmol/L (3.5-5.1); Protein, Total 7.1 g/dL (6.4-8.2); Sodium Level 140 mmol/L (136-145); T4 Free Direct 1.07 ng/dL (0.76-1.46); Thyroid Stim Hormone (TSH) 0.431 uIU/mL (0.358-3.740)
--- NOTE | 2024-03-12 08:40 | PCM.HOSP.N ---
Hospitalist Note Low-grade fever, tachycardia and low blood pressure. Muscle rigidity of head and neck, upper and lower extremity muscles. Patient mute with no response. Please see note for detail Sepsis Attestation Sepsis Alert: Yes Sepsis Attestation: Agree w/Sepsis Date exam was performed: 03/12/24 Time exam was performed: 08:40 Possible Source of Sepsis: Pulmonary and Genitourinary Sepsis Organ Dysfunction Criteria Present: SBP < 90 mmHg or MAP < 65 mmHg, SBP decrease of more than 40 mmHg, Acute Respiratory Failure (New need for BiPAP/CPAP or MV), UOP < 0.5 mL/kg/hour for 2 consecutive hours and New/Unexplained change in mental status Fluid Resuscitation Fluid resuscitation indicated?: Yes Fluid Resuscitation ordered: 30 ml/kg fluid bolus ordered Amount of fluid ordered: 3,000 Sepsis Note Date exam was performed: 03/12/24 Time exam was performed: 12:30 Sepsis Attestation: Sepsis re-evaluation was performed Response to fluids: Fluid responsive hypotension
[2024-03-12] MEDS: Remdesivir 100 MG in 0.9% Normal Saline (250mL Bag) 230 ML 250 MG IV (08:54)
[2024-03-12] MEDS: 0.9% Saline Lock 10 ML Syringe IV (08:55)
--- NOTE | 2024-03-12 09:30 | RAD_ITS ---
STUDY: X-RAY CHEST REASON FOR EXAM: Female, 73 years old. Pneumonia TECHNIQUE: Single AP portable view of the chest. COMPARISON: Comparison is made with prior study done earlier today at 3:34 AM. FINDINGS: EKG electrodes are seen. Increased markings at both lung bases with areas of confluence which have progressed as compared to prior study suggestive of either bibasilar atelectasis and/or infiltrates. Follow-up recommended. There is no demonstrated pleural abnormality. Normal size heart. Normal mediastinum and talisha. Normal visualized pulmonary arteries. There is atherosclerotic tortuosity of the aortic arch and descending thoracic aorta. There are diffuse degenerative changes of the visualized thoracic spine. Normal visualized ribs, clavicles, and shoulders. There is no demonstrated abnormality of the visualized soft tissue structures of the upper abdomen. RAD/Chest 1 View (Portable) IMPRESSION: Progressive atelectasis and/or infiltrates at the lung bases. Further follow-up recommended. Electronically Signed: Chapo Norman MD at 10:28 EDT ,
[2024-03-12 09:32] LABS: CPK Total, Creatine Kinase 218 U/L (26-192)
--- NOTE | 2024-03-12 09:35 | CASEMGMT ---
Discharge Planning Updates sent to [facility] via [employer]. [facility] would like to skill pt is possible. Christina Pastrana DC Planning Asst.
--- NOTE | 2024-03-12 09:42 | PN.HOSP_ITS ---
Reason for Visit Reason for Visit: Diagnoses Encephalopathy, unspecified (03/11/24) COVID-19 (03/11/24) Objective Data Objective Data Vital Signs: Vital Signs Temp Pulse Resp BP Pulse Ox O2 Del Method O2 Flow Rate 100.7 F H 116 H 22 H 95/62 97 Airvo 45 03/12/24 08:00 03/12/24 08:00 03/12/24 08:00 03/12/24 08:00 03/12/24 08:00 03/12/24 08:00 03/12/24 08:00 FiO2 59 03/12/24 08:00 Oxygen Flow Rate (L/min) 45 Oxygen Delivery Method Airvo Weight: 281 lb 1.43 oz Body Mass Index (BMI) 49.8 Intake & Output: Intake and Output for Last 24 Hours 03/10/24 03/11/24 03/12/24 23:59 23:59 23:59 Intake Total 1140 / 1140 110 / 110 Output Total 240 / 240 Balance 900 / 900 110 / 110 Lab / Micro Data 03/12/24 05:19 03/12/24 05:19 Labs: Laboratory Results - last 24 hr 03/11/24 08:59: PT 16.4 H, INR 1.3, APTT 52.8 H, Lactic Acid 1.8, Magnesium 1.9, Lactate Dehydrogenase 250 H, Total Creatine Kinase 429 H, Troponin I High Sens 25, C-React Prot Ext Range 141.00 H, B-Natriuretic Peptide 82.5, Phenobarbital 54 H 03/11/24 10:12: Urine Color Yellow, Urine Clarity Cloudy, Urine pH 8.0, Ur Specific [place] 1.010, Urine Protein 100 H, Urine Glucose (UA) Normal, Urine Ketones Negative, Urine Occult Blood 50 H, Urine Nitrite Positive H, Urine Bilirubin Negative, Urine Urobilinogen Normal, Ur Leukocyte Esterase 500 H, Urine RBC 0-5 SEEN, Urine WBC 10-25 SEEN, Ur Squamous Epith Cells 0-5 SEEN, Urine Bacteria 3+, Urine Mucus 0 SEEN 03/11/24 12:34: Hgb 12.1, Hct 37.7, Procalcitonin 0.15 H 03/11/24 18:10: Hgb 12.1, Hct 36.1 L 03/12/24 00:18: Hgb 11.8 L, Hct 34.9 L 03/12/24 05:19: WBC 17.8 H, RBC 3.72 L, Hgb 11.4 L, Hct 34.6 L, MCV 93.0, MCH 30.6, MCHC 32.9, RDW Std Deviation 55.4 H, RDW Coeff of [place] 16.5 H, Plt Count 185, MPV 10.3, Immature Gran % (Auto) 0.400, Neut % (Auto) 89.0 H, Lymph % (Auto) 5.3 L, Aiken % (Auto) 5.2, Eos % (Auto) 0.0, Baso % (Auto) 0.1, Absolute Neuts (auto) 15.9 H, Absolute Lymphs (auto) 0.94, Nucleated RBC % 0, PT 16.5 H, INR 1.3, APTT 50.1 H, Sodium 140 03/12/24 05:19: Sodium Cancelled, Potassium 4.2 03/12/24 05:19: Potassium Cancelled, Chloride 108 H 03/12/24 05:19: Chloride Cancelled, Carbon Dioxide 23.0 03/12/24 05:19: Carbon Dioxide Cancelled, Anion Gap 9 03/12/24 05:19: Anion Gap Cancelled, BUN 52 H 03/12/24 05:19: BUN Cancelled, Creatinine 1.42 H 03/12/24 05:19: Creatinine Cancelled, Estim Creat Clear Calc 45.24 03/12/24 05:19: Estim Creat Clear Calc Cancelled, Est GFR (MDRD) Af Amer 46 L 03/12/24 05:19: Est GFR (MDRD) Af Amer Cancelled, Est GFR (MDRD) Non-Af 38 L 03/12/24 05:19: Est GFR (MDRD) Non-Af Cancelled, BUN/Creatinine Ratio 36.6 H 03/12/24 05:19: BUN/Creatinine Ratio Cancelled, Glucose 140 H 03/12/24 05:19: Glucose Cancelled, Calcium 9.1 03/12/24 05:19: Calcium Cancelled, Total Bilirubin 0.30, AST 33, ALT 30, A lkaline Phosphatase 138 H, Total Creatine Kinase 218 H, Total Protein 7.1, A lbumin 2.6 L, Globulin 4.5 H, Albumin/Globulin Ratio 0.6 L, TSH 0.431, Free T4 1.07 03/12/24 06:41: POC Glucose 140 H Micro: Microbiology 03/11/24 18:50 Urine, Random Legionella Antigen - Final 03/11/24 09:01 Mucosa - Nose SARS-CoV-2, Influenza & RSV (PCR) - Final SARS-CoV-2 (COVID 19 PCR) 03/11/24 09:01 Vomitus Gastric Occult Blood - Final Radiography Diagnostic Testing: Radiology Impression Chest X-Ray 03/11/24 08:41 IMPRESSION: Limited inspiratory effort. Mild degree of increased markings at the lung bases suggestive of mild bibasilar atelectasis. Electronically Signed: Chapo Norman MD at 9:52 EDT , Brain CT 03/11/24 09:15 IMPRESSION: Chronic involutional changes of the brain. Electronically Signed: Chapo Norman MD at 9:50 EDT , Chest X-Ray 03/12/24 03:25 IMPRESSION: Low lung volumes and patient rotation with streaky bibasilar atelectasis versus other airspace disease, to include aspiration or other pneumonia. Recommend follow-up to resolution.. Electronically Signed: Ashok Julien MD at 5:20 EDT , Physical Exam Narrative Discussed with the nighttime hospitalist and the nursing staff. Overnight patient had fever, blood pressure dropped 92/48 x 2, currently in upper 100s. Sinus tachycardia. Tachypnea put on Airvo. Let hospitalist give 1 L of bolus. Patient had vomiting bilious in nature. Not following commands. Pooling secretions. Overnight events noted. General: Awake. Noncommunicative. Mute. Blank look. HEENT: Atraumatic, PERRLA, EOMI, Normocephalic Oral: Oral mucosa secretions present no Gingival or Mucosal Lesions/ Ulcerations Neck: Neck along with jaw, all ROM. No JVD, Negative Carotid Bruits Chest wall/Lungs: Air entry diminished in bilateral lung bases. Mild basilar coarse crepitations Cardiovascular: Sinus tachycardia, Normal S1, Normal S2, systolic murmur. Abdomen: Bowel Sounds Present, Soft, Non Tender, Non-Distended : No dysuria. No renal angle tenderness. No suprapubic tenderness. Extremities: Mild nonpitting edema, Capillary Refill Less than 3 Seconds Skin: No rashes, No breakdown Musculoskeletal: Bilateral TKR. Muscle rigidity involving neck muscles, jaw, upper and lower extremities. ROM severely restricted, bilateral hips and knee joints stiff. Neurological:DTR 2+/4. Rigidity of detail neuroexam unobtainable but does not seem focal neurological deficit. Psych/Mental Status: Flat affect Assessment & Plan Assessment/Plan (1) Encephalopathy: (2) COVID-19: PLAN: Plan This is 73-year-old female is admitted from [facility] for hematemesis, change in mental status and COVID-19 infection. As per sister patient had mild cough for last 2 to 3 days. 1. Acute hypoxic respiratory failure probably due to COVID-19 pneumonia complicated with secondary bacterial pneumonia possible aspiration pneumonitis: Chest x-ray individually reviewed. Hypoventilation, increased marking at the bilateral lung bases looks atelectasis. Patient is being admitted in PCU. COVID-19 PCR positive. RSV and influenza negative. Patient is started on IV dexamethasone and IV remdesivir. She is vaccinated with booster against COVID- 19 03/12: ABG ordered. Patient on Airvo transfer to ICU. DNR CC arrest but okay with vasopressors. Chest x-ray done and reviewed and shows progressive bibasilar atelectasis. ABG 7.48/32.5/109 on Airvo 60% FiO2. Discussed with the senior financial reporting analyst. Patient has leukocytosis. CK and LDH and CRP elevated. Procalcitonin 0.15. Suspected sepsis from pneumonia probably exacerbated by vomiting and aspiration sepsis order entered. IV fluid as per sepsis protocol. IV antibiotic broadened to vancomycin and meropenem. Patient allergic to amoxicillin, charted as needs follow-up. ID consulted. I agree with the plan of adding vancomycin and Zosyn. Discontinue ceftriaxone. Continue dexamethasone and remdesivir. 2. Mild chronic persistent asthma with exacerbation due to COVID-19 pneumonia and, severe obstructive sleep apnea: Patient follows in pulmonary office with Dr. Saldana and Heide Veliz. Last seen in November 2023, asthma controlled on Flovent. CPAP at 13 cm of H2O 3. Possible upper GI bleed: As per EMS senior living patient had hematemesis although gastric occult blood test negative. Last EGD in December 2020 shows normal esophagus, stomach and duodenum. GI consulted. Patient may be stable for EGD tomorrow. 03/12: H&H 11.4/34.6%. Does not show acute drop therefore EGD not emergency. Patient also not hemodynamically stable for EGD. Continue PPI. 4. Acute change in mental status/encephalopathy probably medications with history of schizophrenia, severe depression with psychotic symptoms with suspicion of neuroleptic malignant syndrome: Patient SSRI was recently changed. Patient on paliperidone monthly injection along with Seroquel and escitalopram. Patient might be overmedicated therefore will hold Seroquel. Continue escitalopram 03/12: Patient neuroexam looks more resid especially in the neck muscle, flexion extension and rotation, jaw muscles and lower extremities. This was discussed with the neurologist Dr. Trish Agustin. serum phenobarb level is high 54. EKG was done and does not show acute epileptiform activity but diffuse encephalopathy. Recommended to transfer to ICU therefore transfer call placed. In meantime continue phenobarbital. Keppra 2 g IV 1 dose ordered. 5. Type 2 diabetes mellitus: Glucose in BMP 108. Likely to go up on steroid. Accu-Chek before meals and at bedtime with Humalog sliding scale coverage and hypoglycemia protocol. 6. Hypertension: Blood pressure in normal range. Systolic BP in 110s to 120s. Hold antihypertensive medication. 7. Possible chronic epilepsy: Patient on high dose of phenobarbital. Hold now but will reevaluate tomorrow depending on the mental status. DVT prophylaxis: High risk. Hold pharmacological prophylaxis due to concern for GI bleed. Bilateral SCDs I talked to the patient's sister who is POA. She said that she does not want intubation or ventilator shocking or CPR but okay with IV fluid, vasopressors and central line. Living will/advanced directive/end of life care: Patient does have living will or advanced directive. His sister present in ED is power of commercial escrow assistant for health after discussion of benefits/risks procedures involved with full code, DNR CC arrest and DNR CC, the patient and her sister opted for DNR CC arrest with no intubation. Patient doesn't want artificial life support including intubation, tube feed, ventilator and/chest compression, central venous catheter, vasopressor and DC shock if needed Total time spent in [id number] encounter in discussion of advanced directive 17 minutes. Microbiology Past 72 Hours 03/11/24 12:06 Urine, Clean Catch Streptococcus pneumoniae Antigen (M - Final 03/12/24 13:07 Nasal Secretion MRSA (PCR) - Final Meth. resistant Staph. aureus 03/11/24 09:01 Mucosa - Nose SARS-CoV-2, Influenza & RSV (PCR) - Final SARS-CoV-2 (COVID 19 PCR) 03/11/24 10:12 Urine, Catheterized Urine Culture - Preliminary Gram negative robbin 03/11/24 18:50 Urine, Random Legionella Antigen - Final 03/11/24 09:01 Vomitus Gastric Occult Blood - Final Laboratory Results 03/11/24 08:59: Phenobarbital 54 H 03/11/24 18:10: Hgb 12.1, Hct 36.1 L 03/12/24 00:18: Hgb 11.8 L, Hct 34.9 L 03/12/24 05:19: WBC 17.8 H, RBC 3.72 L, Hgb 11.4 L, Hct 34.6 L, MCV 93.0, MCH 30.6, MCHC 32.9, RDW Std Deviation 55.4 H, RDW Coeff of [place] 16.5 H, Plt Count 185, MPV 10.3, Immature Gran % (Auto) 0.400, Neut % (Auto) 89.0 H, Lymph % (Auto) 5.3 L, [place]iken % (Auto) 5.2, Eos % (Auto) 0.0, Baso % (Auto) 0.1, Absolute Neuts (auto) 15.9 H, Absolute Lymphs (auto) 0.94, Nucleated RBC % 0, PT 16.5 H, INR 1.3, APTT 50.1 H, Sodium 140 03/12/24 05:19: Sodium Cancelled, Potassium 4.2 03/12/24 05:19: Potassium Cancelled, Chloride 108 H 03/12/24 05:19: Chloride Cancelled, Carbon Dioxide 23.0 03/12/24 05:19: Carbon Dioxide Cancelled, Anion Gap 9 03/12/24 05:19: Anion Gap Cancelled, BUN 52 H 03/12/24 05:19: BUN Cancelled, Creatinine 1.42 H 03/12/24 05:19: Creatinine Cancelled, Estim Creat Clear Calc 45.24 03/12/24 05:19: Estim Creat Clear Calc Cancelled, Est GFR (MDRD) Af Amer 46 L 03/12/24 05:19: Est GFR (MDRD) Af Amer Cancelled, Est GFR (MDRD) Non-Af 38 L 03/12/24 05:19: Est GFR (MDRD) Non-Af Cancelled, BUN/Creatinine Ratio 36.6 H 03/12/24 05:19: BUN/Creatinine Ratio Cancelled, Glucose 140 H 03/12/24 05:19: Glucose Cancelled, Hemoglobin A1c 6.1 H, Calcium 9.1 03/12/24 05:19: Calcium Cancelled, Total Bilirubin 0.30, AST 33, ALT 30, A lkaline Phosphatase 138 H, Total Creatine Kinase 218 H 03/12/24 05:19: Total Creatine Kinase Cancelled, Total Protein 7.1, Albumin 2.6 L, Globulin 4.5 H, Albumin/Globulin Ratio 0.6 L, TSH 0.431, Free T4 1.07 03/12/24 06:41: POC Glucose 140 H 03/12/24 09:20: APTT 48.9 H, Lactic Acid 1.1 03/12/24 10:41: Specimen Type ART, Sample Site R Radial, pH 7.48 H, Bicarbonate Actual 24.4, Total CO2 25, Base Excess 1, O2 Saturation 99, O2 % 60.0, ABG pCO2 32.5 L, ABG pO2 109 H, [place] Test Positive, O2 Delivery Device airvo, Vent Mode Not entered Clinical Impression(s) from Imaging Studies Chest X-Ray 03/11/24 08:41 IMPRESSION: Limited inspiratory effort. Mild degree of increased markings at the lung bases suggestive of mild bibasilar atelectasis. Brain CT 03/11/24 09:15 IMPRESSION: Chronic involutional changes of the brain. Charges/Coding Visit Charges Inpatient E&M: 13605 Subs Hosp L3
[2024-03-12 09:43] LABS: Partial Thromboplast Time 48.9 Seconds (24.1-36.2)
[2024-03-12 10:10] LABS: Lactic Acid 1.1 mmol/L (0.4-1.9)
--- NOTE | 2024-03-12 10:22 | CON.PCM.NE_ITS ---
Assessment and Plan: Neuro Assessment/Plan SIERRA MORRISON is a 73 F with a past medical history of seizures, TIA, schizophrenia, being evaluated by Teleneurology for rigidity. Exam today with right gaze deviation and unresponsiveness. Given lack of phenobarbital in the last 24-48 hours would be most concerned for seizures/phenobarb withdrawal. She may have some elements of confusion from current infections, but will need to further evaluate for seizures with EEG. Diagnosis: Phenobarbital withdrawal/RO seizures. Plan: Resume Phenobarbital , can give IM if unable to take PO. Keppra 2000 mg Load now. Abraham I personally attended this patient and spent a total time of 35 minutes evaluating this patient including clinical assessment, review of chart, medical history imaging, and determining appropriate treatment and workup. HPI Consult Data Date of Consult: 03/12/24 HPI Narrative HPI Narrative: SIERRA MORRISON, is a 73 F with history of for schizophrenia was brought to ED by EMS from [facility] for coffee-ground emesis/hematemesis. When she presented she was febrile, tachycardic and tachypneic. UA was positive for nitrates and leukocyte esterase along with 3+ urine bacteria. She was also positive for COVID. She was confused more so then her baseline. In the last 24 hours she has become progressively more confused and now not responding. Discussion with the primary team, patient has not been taking her oral medications since admission including her home phenobarbital. Per report she is [id number] She was transfered to the ICU for closer monitoring. On my evaluation her eyes are open, but does not speak or follow commands. [facility] Medical History Epilepsy Hammer toes of both feet Cerebrovascular disease Age related cataract Wears glasses Wears hearing aid Rash Walker as ambulation aid Easy bruising History of diverticulitis Gastric reflux Non-smoker Shortness of breath on exertion Vericose veins History of CVA (cerebrovascular accident) Seizure disorder Thyroid disorder Rheumatoid arthritis Diverticulitis Sleep apnea COPD (chronic obstructive pulmonary disease) Diabetes mellitus type 2 in obese Benign essential hypertension Convulsion Osteoarthritis Hypothyroid TIA (transient ischemic attack) Hypercholesterolemia Anemia in chronic illness Allergic rhinitis Glaucoma Morbid obesity Peripheral venous insufficiency GERD (gastroesophageal reflux disease) Asthma Schizophrenia Depression Anxiety disorder Hyperlipidemia Hypertension Home Medications ?Medication ?Instructions ?Recorded ?Last Taken ?Type clopidogrel 75 mg tablet 75 mg PO DAILY 10/19/13 10/01/24 History hydrochlorothiazide 25 mg tablet 25 mg PO DAILY ##0 03/28/13 03/10/24 History metoprolol succinate 100 mg 100 mg PO DAILY 03/28/13 12/19/20 History tablet,extended release 24 hr paliperidone 6 mg tablet,extended 6 mg PO QHS 01/31/17 03/10/24 History release 24 hr albuterol sulfate 90 mcg/actuation 2 puff inhalation Q6H PRN 08/10/22 Unknown Rx aerosol inhaler shortness of breath or wheezing #8.5 grams montelukast 10 mg tablet 10 mg PO QHS #90 tabs 12/03/22 03/10/24 Rx albuterol sulfate 2.5 mg/3 mL 2.5 mg inhalation DAILY PRN 11/27/23 Unknown History (0.083 %) solution for nebulization shortness of breath or wheezing atorvastatin 20 mg tablet 20 mg PO QDAY 11/27/23 03/11/24 History clonazepam 0.5 mg tablet 0.5 mg PO TID 11/27/23 03/10/24 History famotidine 10 mg tablet (Pepcid AC) 20 mg PO BID PRN heartburn 11/27/23 Unknown History fluticasone propionate 220 2 inh inhalation BID 11/27/23 03/10/24 History mcg/actuation HFA aerosol inhaler latanoprost 0.005 % eye drops 1 drp ophthalmic (eye) QHS 11/27/23 03/10/24 History loratadine 10 mg tablet 10 mg PO DAILY 11/27/23 03/10/24 History losartan 50 mg tablet 50 mg PO QDAY 11/27/23 03/10/24 History phenobarbital 60 mg tablet 120 mg PO 0800 11/27/23 Unknown History phenobarbital 60 mg tablet 180 mg PO SUMOWETHSA seizures 11/27/23 Unknown History polyethylene glycol 3350 17 17 g PO DAILY PRN CONSTIPATION 11/27/23 03/10/24 History gram/dose oral powder (Miralax) propylene glycol 1 %-glycerin 0.3 1 drp ophthalmic (eye) Q4H PRN dry 11/27/23 Unknown History % eye drops (Artificial Tears eye(s) (glycerin-peg)) acetaminophen 500 mg tablet 1,000 mg PO BID 03/11/24 03/10/24 History cholecalciferol (vitamin D3) 25 50 mcg PO DAILY 03/11/24 Unknown History mcg (1,000 unit) tablet diphenhydramine HCl 50 mg/mL 50 mg IM DAILY DISTONIA 03/11/24 03/10/24 History injection solution levothyroxine 200 mcg tablet 200 mcg PO DAILY 03/11/24 03/10/24 History nifedipine 90 mg tablet,extended 90 mg PO DAILY 03/11/24 03/10/24 History release phenobarbital 60 mg tablet 60 mg PO TUFR seizures 03/11/24 03/10/24 History quetiapine 25 mg tablet 25 mg PO BID PSYCHOSIS 03/11/24 Unknown History quetiapine 50 mg tablet 50 mg PO TID AGGITATION 03/11/24 03/10/24 History Allergy/AdvReac Type Severity Reaction Status Date / Time amoxicillin Allergy NEEDS Verified 03/11/24 08:36 FOLLOW-UP codeine Allergy Shortness Verified 03/11/24 08:36 of breath cyclobenzaprine (From Allergy NEEDS Verified 03/11/24 08:36 Flexeril) FOLLOW-UP dextromethorphan HBr (From Allergy Shortness Verified 03/11/24 08:36 Tylenol Cold Multi-Symptom) of breath diazepam (From Valium) Allergy Shortness Verified 03/11/24 08:36 of breath fluticasone (From Advair Allergy NEEDS Verified 03/11/24 08:36 Diskus) FOLLOW-UP Food Allergies: Uncoded Allergy Shortness Verified 03/11/24 08:36 of breath guaifenesin (From Tylenol Allergy Shortness Verified 03/11/24 08:36 Cold Multi-Symptom) of breath hydrocodone bitartrate (From Allergy Shortness Verified 03/11/24 08:36 Vicodin) of breath iodine Allergy Anaphylaxis Verified 03/11/24 08:36 Latex, Natural Rubber Allergy Shortness Verified 03/11/24 08:36 of breath morphine Allergy Shortness Verified 03/11/24 08:36 of breath NSAIDS (Non-Steroidal Allergy Shortness Verified 03/11/24 08:36 Anti-Inflamma of breath oxaprozin (From Daypro) Allergy NEEDS Verified 03/11/24 08:36 FOLLOW-UP oxycodone Allergy NEEDS Verified 03/11/24 08:36 FOLLOW-UP phenylephrine HCl (From Allergy Shortness Verified 03/11/24 08:36 Tylenol Cold Multi-Symptom) of breath phenytoin (From Dilantin) Allergy NEEDS Verified 03/11/24 08:36 FOLLOW-UP phenytoin sodium (From Allergy Shortness Verified 03/11/24 08:36 Dilantin) of breath phenytoin sodium extended Allergy Shortness Verified 03/11/24 08:36 (From Dilantin) of breath povidone-iodine (From Allergy BLISTERS Verified 03/11/24 08:36 Betadine) pseudoephedrine HCl (From Allergy Shortness Verified 03/11/24 08:36 Tylenol Cold Multi-Symptom) of breath salmeterol (From Advair Allergy NEEDS Verified 03/11/24 08:36 Diskus) FOLLOW-UP shellfish derived Allergy NEEDS Verified 03/11/24 08:36 FOLLOW-UP soap (From Betadine) Allergy BLISTERS Verified 03/11/24 08:36 tetracycline Allergy NEEDS Verified 03/11/24 08:36 FOLLOW-UP tositumomab iodine-131 Allergy NEEDS Verified 03/11/24 08:36 FOLLOW-UP muscle relaxers Allergy Shortness Uncoded 05/22/23 11:04 of breath Family History Other Arthritis CVA (cerebral vascular accident) Cancer Depression Diabetes Emphysema lung Hypertension Surgical History History of cholecystectomy History of tonsillectomy History of total hysterectomy History of total knee replacement History of bilateral tympanoplasty History of tubal ligation History of D&C Social History Smoking Status: Never smoker second hand exposure: Yes alcohol intake: never substance use type: does not use what type of physical activity do you participate in: walking do you feel safe at home: Yes Vital Signs Vital Signs Vital Signs: 03/11/24 10:34 03/11/24 11:03 03/11/24 11:39 Temperature 99.7 F H 99.7 F H Temperature Source Axillary Pulse Rate 104 H 108 H 112 H Pulse Strength Respiratory Rate 34 H 34 H Respiratory Effort Respiratory Depth Respiratory Pattern Blood Pressure 114/69 124/76 H 124/87 H Blood Pressure Mean 84 92 99 Blood Pressure Source Blood Pressure Position Blood Pressure Location Pulse Ox 94 96 95 Oxygen Delivery Method Nasal Cannula Nasal Cannula Oxygen Flow Rate (L/min) 3 3 Fraction of Inspired Oxygen (FIO2) 03/11/24 11:40 03/11/24 12:38 03/11/24 13:00 Temperature 97.7 F L Temperature Source Oral Pulse Rate 113 H 76 Pulse Strength Respiratory Rate 18 19 H Respiratory Effort Respiratory Depth Respiratory Pattern Blood Pressure 123/80 H 121/58 H Blood Pressure Mean 94 79 Blood Pressure Source Monitor Monitor Blood Pressure Position Semi-Fowlers Semi-Fowlers Blood Pressure Location Right Forearm Right Forearm Pulse Ox 95 93 98 Oxygen Delivery Method Nasal Cannula Nasal Cannula Nasal Cannula Oxygen Flow Rate (L/min) 2 3 2 Fraction of Inspired Oxygen (FIO2) 03/11/24 14:00 03/11/24 15:00 03/11/24 16:00 Temperature 99.7 F H Temperature Source Oral Pulse Rate 70 119 H Pulse Strength Respiratory Rate 18 24 H Respiratory Effort Normal Non-Labored Respiratory Depth Shallow Respiratory Pattern Tachypnea Blood Pressure 125/45 H 117/76 Blood Pressure Mean 71 89 Blood Pressure Source Monitor Monitor Blood Pressure Position Semi-Fowlers Semi-Fowlers Blood Pressure Location Right Forearm Right Forearm Pulse Ox 91 94 Oxygen Delivery Method Nasal Cannula Nasal Cannula Nasal Cannula Oxygen Flow Rate (L/min) 3 2 2 Fraction of Inspired Oxygen (FIO2) 03/11/24 16:00 03/11/24 18:41 03/11/24 18:42 Temperature 99.7 F H 100.2 F H 100.2 F H Temperature Source Oral Axillary Axillary Pulse Rate 119 H 117 H 117 H Pulse Strength Respiratory Rate 24 H 24 H 24 H Respiratory Effort Respiratory Depth Respiratory Pattern Blood Pressure 117/76 100/63 100/63 Blood Pressure Mean 89 75 75 Blood Pressure Source Monitor Blood Pressure Position Semi-Fowlers Blood Pressure Location Right Forearm Pulse Ox 94 94 94 Oxygen Delivery Method Nasal Cannula Nasal Cannula Nasal Cannula Oxygen Flow Rate (L/min) 2 2 2 Fraction of Inspired Oxygen (FIO2) 03/11/24 20:00 03/11/24 20:15 03/11/24 20:36 Temperature 101.1 F H Temperature Source Axillary Pulse Rate 120 H 113 H Pulse Strength Respiratory Rate 24 H 24 H Respiratory Effort Normal Non-Labored Respiratory Depth Shallow Respiratory Pattern Tachypnea Normal Blood Pressure 107/66 Blood Pressure Mean 79 Blood Pressure Source Monitor Blood Pressure Position Semi-Fowlers Blood Pressure Location Right Forearm Pulse Ox 95 Oxygen Delivery Method Nasal Cannula Nasal Cannula Oxygen Flow Rate (L/min) 2 2 Fraction of Inspired Oxygen (FIO2) 03/11/24 20:36 03/11/24 21:20 03/11/24 21:30 Temperature 100.5 F H 100.5 F H Temperature Source Axillary Axillary Pulse Rate 110 H 110 H Pulse Strength Respiratory Rate 24 H 24 H Respiratory Effort Respiratory Depth Respiratory Pattern Blood Pressure 92/48 L 92/48 L Blood Pressure Mean 62 62 Blood Pressure Source Monitor Blood Pressure Position Semi-Fowlers Blood Pressure Location Right Forearm Pulse Ox 93 92 92 Oxygen Delivery Method Nasal Cannula Nasal Cannula Nasal Cannula Oxygen Flow Rate (L/min) 2 2 2 Fraction of Inspired Oxygen (FIO2) 03/11/24 22:00 03/11/24 22:30 03/11/24 23:00 Temperature 100.6 F H Temperature Source Axillary Pulse Rate 108 H 109 H Pulse Strength Normal (2+) Respiratory Rate 24 H 27 H Respiratory Effort Respiratory Depth Respiratory Pattern Blood Pressure 109/49 L 96/48 L Blood Pressure Mean 69 64 Blood Pressure Source Monitor Monitor Blood Pressure Position SemiFolers Semi-Fowlers Blood Pressure Location Right Forearm Right Arm Pulse Ox 92 93 Oxygen Delivery Method Nasal Cannula Nasal Cannula Oxygen Flow Rate (L/min) 2 2 Fraction of Inspired Oxygen (FIO2) 03/11/24 23:32 03/12/24 00:00 03/12/24 01:00 Temperature 98.9 F Temperature Source Oral Pulse Rate 111 H 113 H 109 H Pulse Strength Respiratory Rate 29 H 26 H 24 H Respiratory Effort Respiratory Depth Respiratory Pattern Blood Pressure 106/58 L 96/48 L 105/52 L Blood Pressure Mean 74 64 69 Blood Pressure Source Monitor Blood Pressure Position Blood Pressure Location Pulse Ox 90 88 91 Oxygen Delivery Method Nasal Cannula Nasal Cannula High Flow Oxygen Flow Rate (L/min) 2 3 4 Fraction of Inspired Oxygen (FIO2) 03/12/24 01:00 03/12/24 01:30 03/12/24 02:00 Temperature 99.9 F H Temperature Source Axillary Pulse Rate 109 H 109 H 112 H Pulse Strength Respiratory Rate 28 H 34 H Respiratory Effort Respiratory Depth Respiratory Pattern Blood Pressure 105/52 L 102/51 L 102/51 L Blood Pressure Mean 69 68 68 Blood Pressure Source Monitor Monitor Blood Pressure Position Semi-Fowlers Blood Pressure Location Right Forearm Pulse Ox 91 91 93 Oxygen Delivery Method High Flow High Flow High Flow Oxygen Flow Rate (L/min) 5 5 6 Fraction of Inspired Oxygen (FIO2) 03/12/24 03:00 03/12/24 04:06 03/12/24 04:15 Temperature 101.2 F H Temperature Source Axillary Pulse Rate 113 H 117 H Pulse Strength Respiratory Rate 26 H 26 H Respiratory Effort Short of Breath Labored Respiratory Depth Shallow Respiratory Pattern Tachypnea Tachypnea Blood Pressure 111/65 Blood Pressure Mean 80 Blood Pressure Source Monitor Blood Pressure Position Semi-Fowlers Blood Pressure Location Left Forearm Pulse Ox 91 94 Oxygen Delivery Method High Flow High Flow Oxygen Flow Rate (L/min) 12 12 Fraction of Inspired Oxygen (FIO2) 65 03/12/24 04:55 03/12/24 04:55 03/12/24 06:00 Temperature 100.4 F H 100.4 F H 99.3 F H Temperature Source Axillary Oral Axillary Pulse Rate 111 H 111 H 115 H Pulse Strength Respiratory Rate 25 H 25 H 25 H Respiratory Effort Respiratory Depth Respiratory Pattern Blood Pressure 96/57 L 96/57 L 107/69 Blood Pressure Mean 70 70 81 Blood Pressure Source Monitor Monitor Monitor Blood Pressure Position Semi-Fowlers Semi-Fowlers Semi-Fowlers Blood Pressure Location Left Forearm Left Forearm Left Forearm Pulse Ox 92 92 94 Oxygen Delivery Method Airvo Airvo Airvo Oxygen Flow Rate (L/min) 50 50 50 Fraction of Inspired Oxygen (FIO2) 65 65 65 03/12/24 06:45 03/12/24 07:14 03/12/24 07:14 Temperature 100.4 F H Temperature Source Axillary Pulse Rate 117 H 113 H 112 H Pulse Strength Respiratory Rate 27 H 24 H 24 H Respiratory Effort Respiratory Depth Respiratory Pattern Tachypnea Tachypnea Blood Pressure 107/67 Blood Pressure Mean 80 Blood Pressure Source Monitor Blood Pressure Position Semi-Fowlers Blood Pressure Location Left Forearm Pulse Ox 96 95 Oxygen Delivery Method Airvo Oxygen Flow Rate (L/min) 50 Fraction of Inspired Oxygen (FIO2) 65 60 03/12/24 07:14 03/12/24 08:00 Temperature 100.7 F H Temperature Source Axillary Pulse Rate 116 H Pulse Strength Respiratory Rate 22 H Respiratory Effort Respiratory Depth Respiratory Pattern Blood Pressure 95/62 Blood Pressure Mean 73 Blood Pressure Source Monitor Blood Pressure Position Semi-Fowlers Blood Pressure Location Left Forearm Pulse Ox 95 97 Oxygen Delivery Method Airvo Airvo Oxygen Flow Rate (L/min) 45 45 Fraction of Inspired Oxygen (FIO2) 60 59 Weight Weight: 127.5 kg Body Mass Index (BMI) 49.8 EEG Results Procedure Details EEG Procedure Details: SIERRA MORRISON is a 73 year old F with a past medical history of , who presents for evaluation of Electroencephalogram on DATE at TIME Physical Exam Narrative NEuro exam: MS: eyes open, does not attend or follow commands. CN: PERRL, right gaze deviation. +Corneal reflexes. Motor/sensory: no response to pain throughout. Lab / Micro Data 03/12/24 05:19 03/12/24 05:19 Labs: Laboratory Results - last 24 hr 03/11/24 08:59: Magnesium 1.9, Lactate Dehydrogenase 250 H, Total Creatine Kinase 429 H, Troponin I High Sens 25, C-React Prot Ext Range 141.00 H, B- Natriuretic Peptide 82.5, Phenobarbital 54 H 03/11/24 10:12: Urine Color Yellow, Urine Clarity Cloudy, Urine pH 8.0, Ur Specific [place] 1.010, Urine Protein 100 H, Urine Glucose (UA) Normal, Urine Ketones Negative, Urine Occult Blood 50 H, Urine Nitrite Positive H, Urine Bilirubin Negative, Urine Urobilinogen Normal, Ur Leukocyte Esterase 500 H, Urine RBC 0-5 SEEN, Urine WBC 10-25 SEEN, Ur Squamous Epith Cells 0-5 SEEN, Urine Bacteria 3+, Urine Mucus 0 SEEN 03/11/24 12:34: Hgb 12.1, Hct 37.7, Procalcitonin 0.15 H 03/11/24 18:10: Hgb 12.1, Hct 36.1 L 03/12/24 00:18: Hgb 11.8 L, Hct 34.9 L 03/12/24 05:19: WBC 17.8 H, RBC 3.72 L, Hgb 11.4 L, Hct 34.6 L, MCV 93.0, MCH 30.6, MCHC 32.9, RDW Std Deviation 55.4 H, RDW Coeff of [place] 16.5 H, Plt Count 185, MPV 10.3, Immature Gran % (Auto) 0.400, Neut % (Auto) 89.0 H, Lymph % (Auto) 5.3 L, [place] % (Auto) 5.2, Eos % (Auto) 0.0, Baso % (Auto) 0.1, Absolute Neuts (auto) 15.9 H, Absolute Lymphs (auto) 0.94, Nucleated RBC % 0, PT 16.5 H, INR 1.3, APTT 50.1 H, Sodium 140 03/12/24 05:19: Sodium Cancelled, Potassium 4.2 03/12/24 05:19: Potassium Cancelled, Chloride 108 H 03/12/24 05:19: Chloride Cancelled, Carbon Dioxide 23.0 03/12/24 05:19: Carbon Dioxide Cancelled, Anion Gap 9 03/12/24 05:19: Anion Gap Cancelled, BUN 52 H 03/12/24 05:19: BUN Cancelled, Creatinine 1.42 H 03/12/24 05:19: Creatinine Cancelled, Estim Creat Clear Calc 45.24 03/12/24 05:19: Estim Creat Clear Calc Cancelled, Est GFR (MDRD) Af Amer 46 L 03/12/24 05:19: Est GFR (MDRD) Af Amer Cancelled, Est GFR (MDRD) Non-Af 38 L 03/12/24 05:19: Est GFR (MDRD) Non-Af Cancelled, BUN/Creatinine Ratio 36.6 H 03/12/24 05:19: BUN/Creatinine Ratio Cancelled, Glucose 140 H 03/12/24 05:19: Glucose Cancelled, Calcium 9.1 03/12/24 05:19: Calcium Cancelled, Total Bilirubin 0.30, AST 33, ALT 30, A lkaline Phosphatase 138 H, Total Creatine Kinase 218 H, Total Protein 7.1, A lbumin 2.6 L, Globulin 4.5 H, Albumin/Globulin Ratio 0.6 L, TSH 0.431, Free T4 1.07 03/12/24 06:41: POC Glucose 140 H 03/12/24 09:20: APTT 48.9 H, Lactic Acid 1.1 Micro: Microbiology 03/11/24 18:50 Urine, Random Legionella Antigen - Final 03/11/24 09:01 Mucosa - Nose SARS-CoV-2, Influenza & RSV (PCR) - Final SARS-CoV-2 (COVID 19 PCR) 03/11/24 09:01 Vomitus Gastric Occult Blood - Final Imaging Radiology Impression Chest X-Ray 03/12/24 03:25 IMPRESSION: Low lung volumes and patient rotation with streaky bibasilar atelectasis versus other airspace disease, to include aspiration or other pneumonia. Recommend follow-up to resolution.. Electronically Signed: Ashok Julien MD at 5:20 EDT , Active Medications Active Medications Active Medications: Current Medications Generic Name Dose Route Start Last Admin Trade Name Freq PRN Reason Stop Dose Admin Acetaminophen 1,000 mg 03/11/24 22:00 03/11/24 21:38 Acetaminophen 500 Mg Tablet PO Not Given BID JEFFREY Acetaminophen 650 mg 03/11/24 20:02 03/12/24 08:31 Acetaminophen 650 Mg Suppository RC 650 mg Q4H PRN PRN Administration Fever, pain 1-10 w/ NPO Atorvastatin Calcium 20 mg 03/11/24 22:00 03/11/24 21:37 Atorvastatin Calcium 20 Mg Tablet PO Not Given QHS JEFFREY Budesonide 0.5 mg 03/11/24 12:30 03/12/24 07:13 Budesonide Respules 0.5 Mg/2 Ml Ampul.Neb. INHALATION 0.5 mg Q12H.RT JEFFREY Administration Cholecalciferol 50 mcg 03/12/24 10:00 Cholecalciferol (Vit D3) 25 Mcg Tablet (1,000 Units) PO DAILY JEFFREY Clonazepam 0.5 mg 03/11/24 14:00 03/12/24 05:23 Clonazepam 0.5 Mg Tablet PO Not Given TID JEFFREY Dexamethasone Sodium Phosphate 6 mg 03/11/24 13:30 03/11/24 14:29 Dexamethasone 10 Mg/Ml Vial IV 6 mg DAILY JEFFREY Administration Glycerin/Hypromellose/Polyethylene 1 drp 03/11/24 13:25 Glycerin/Hypromellose/Qjj486 15 Ml Bottle OPHTHALMIC Q4H PRN dry eye(s) Pantoprazole Sodium 40 mg/ 110 mls @ 330 mls/hr 03/11/24 13:00 03/12/24 02:18 Sodium Chloride IV Infused Q12H JEFFREY Infusion Remdesivir 100 mg/ Sodium 250 mls @ 250 mls/hr 03/12/24 10:00 03/12/24 08:54 Chloride IV 03/15/24 10:59 250 mls/hr DAILY JEFFREY Administration Protocol Sodium Chloride 1,000 mls @ 999 mls/hr 03/12/24 09:05 IV 03/12/24 12:05 .Q1H1M JEFFREY Protocol Vancomycin IV-PHARMACY TO DOSE 500 mls @ 250 mls/hr 03/12/24 09:01 1 each/ Sodium Chloride IV PRN PRN PHARMACY TO DOSE Protocol Meropenem 1 gm/ Sodium 120 mls @ 33 mls/hr 03/12/24 10:00 Chloride IV Q12 JEFFREY Vancomycin HCl 2,000 mg/ 540 mls @ 250 mls/hr 03/12/24 10:00 Sodium Chloride IV 03/12/24 12:09 X1 ONE Latanoprost 1 drp 03/11/24 22:00 03/11/24 22:37 Latanoprost 0.005% 1 Bottle EACH EYE 1 drp QHS [facility] Administration Levothyroxine Sodium 200 mcg 03/12/24 06:00 03/12/24 05:23 Levothyroxine 100 Mcg Tablet PO Not Given DAILY@0600 [facility] Loratadine 10 mg 03/12/24 10:00 Loratadine 10 Mg Tablet PO DAILY [facility] Lorazepam 2 mg 03/11/24 14:51 Lorazepam 2 Mg/Ml Syringe IV Q6H PRN PRN SEIZURES Metoprolol Succinate 100 mg 03/12/24 10:00 Metoprolol(Xl)Succ 100 Mg Tablet PO DAILY [facility] Protocol Montelukast Sodium 10 mg 03/11/24 22:00 03/11/24 21:38 Montelukast 10 Mg Tablet PO Not Given QHS JEFFREY Polyethylene Glycol 17 gm 03/11/24 13:22 Polyethylene Glycol 3350 17 Gm Packet PO DAILY PRN CONSTIPATION Quetiapine Fumarate 50 mg 03/11/24 13:24 Quetiapine 25 Mg Tablet PO TID PRN AGITATION Sodium Chloride 10 - 40 ml 03/11/24 14:38 03/12/24 08:55 0.9% Saline Lock 10 Ml Syringe IV 10 ml UD PRN Administration SALINE FLUSH
--- NOTE | 2024-03-12 10:30 | EX.PCM.CONCC ---
Assessment & Plan Assessment/Plan (1) Acute hypoxic respiratory failure: (2) Encephalopathy: (3) COVID-19: (4) Acute UTI: PLAN: Plan RECOMMENDATIONS: 1. Continue supplemental IV fluid hydration. 2. Continue to hold Seroquel 3. Supplemental oxygen to maintain saturations at or above 90%. 4. Check CPK level 5. Continue Decadron and remdesivir per ID recommendations. Continue empiric antibiotics as well. 6. Check arterial blood gas. 7. Neurology is following. EEG is pending. Continue antiepileptics per recommendations. IMPRESSIONS: 1. Hypotension Appears to be secondary to intravascular volume depletion, as the patient is hemodynamically stable at the present time. She does have underlying COVID along with suspected UTI, on antimicrobials. For now, the patient will be monitored clinically. If her hemodynamic status changes, vasopressor support can be initiated. 2. Acute hypoxemic respiratory failure Clinical concern for underlying COVID-19 pneumonia. The patient will be continued on supplemental oxygen along with Decadron and remdesivir per ID recommendations. 3. Encephalopathy Unclear etiology. Initial concern for possible neuroleptic malignant syndrome versus nonconvulsive status. Will check CPK. Continue to hold home Seroquel. Neurology is currently following with plans for EEG and continuation of phenobarbital. TSH was within normal limits. Will obtain ABG. Initial CT head was unremarkable. 4. Anemia There was initial concern for possible GI bleed at presentation. There were reported instances of hematemesis with negative gastro occult stool testing. At this time, I would hold off on upper endoscopy pending improvement in the patient's clinical status. Blood counts are stable. Continue PPI therapy. 5. History of mild intermittent asthma/obstructive sleep apnea/diabetes mellitus/history of schizophrenia Complicates care, management, recovery and prognosis. Continue supportive measures as noted above. This note was generated with Terapioation software. It may contain incorrect words, spelling, and punctuation that were not noted in checking the note before signing. HPI Consult Data Date of Consult: 03/12/24 HPI Narrative Reason for Consultation: Sepsis HPI Narrative: The patient is a 73-year-old female, with a history as outlined below, who presented to the emergency department on March 11 with shortness of breath and hypoxemia. The patient is currently followed in the pulmonary medicine clinic due to a history of obstructive sleep apnea and asthma. She was last seen in November 2023, at which time, she was noted to be symptomatically controlled on Flovent and as needed albuterol. No additional history could be obtained from the patient herself due to her underlying mental status. On presentation to the emergency department, the patient was documented to be febrile, tachycardic and tachypneic. Initial laboratory evaluation revealed a normal white blood cell count. Chemistry profile was notable for a creatinine of 1.26. Lactate was within normal limits. Troponin was normal. Urine analysis was positive for nitrates and leukocyte esterase along with 3+ urine bacteria. Head CT revealed chronic involutional changes of the brain. Chest x-ray was suboptimal but demonstrated basilar atelectasis versus infiltrate. The patient was noted to be positive for COVID-19. The patient was subsequently started on antimicrobials, Decadron and remdesivir. She was admitted to the progressive care unit for further management. Overnight, the patient was noted to have borderline hemodynamics, which was medically managed with supplemental IV fluid hydration. In addition, she was noted to have worsening hypoxemia. The patient was ultimately transferred to the medical intensive care unit on the afternoon of March 12. However, the patient has remained hemodynamically stable. [facility] Medical History Epilepsy Hammer toes of both feet Cerebrovascular disease Age related cataract Wears glasses Wears hearing aid Rash Walker as ambulation aid Easy bruising History of diverticulitis Gastric reflux Non-smoker Shortness of breath on exertion Vericose veins History of CVA (cerebrovascular accident) Seizure disorder Thyroid disorder Rheumatoid arthritis Diverticulitis Sleep apnea COPD (chronic obstructive pulmonary disease) Diabetes mellitus type 2 in obese Benign essential hypertension Convulsion Osteoarthritis Hypothyroid TIA (transient ischemic attack) Hypercholesterolemia Anemia in chronic illness Allergic rhinitis Glaucoma Morbid obesity Peripheral venous insufficiency GERD (gastroesophageal reflux disease) Asthma Schizophrenia Depression Anxiety disorder Hyperlipidemia Hypertension Home Medications ?Medication ?Instructions ?Recorded ?Last Taken ?Type clopidogrel 75 mg tablet 75 mg PO DAILY 03/28/13 03/10/24 History hydrochlorothiazide 25 mg tablet 25 mg PO DAILY ##0 03/28/13 03/10/24 History metoprolol succinate 100 mg 100 mg PO DAILY 03/28/13 12/19/20 History tablet,extended release 24 hr paliperidone 6 mg tablet,extended 6 mg PO QHS 01/31/17 03/10/24 History release 24 hr albuterol sulfate 90 mcg/actuation 2 puff inhalation Q6H PRN 08/10/22 Unknown Rx aerosol inhaler shortness of breath or wheezing #8.5 grams montelukast 10 mg tablet 10 mg PO QHS #90 tabs 12/03/22 03/10/24 Rx albuterol sulfate 2.5 mg/3 mL 2.5 mg inhalation DAILY PRN 11/27/23 Unknown History (0.083 %) solution for nebulization shortness of breath or wheezing atorvastatin 20 mg tablet 20 mg PO QDAY 11/27/23 03/11/24 History clonazepam 0.5 mg tablet 0.5 mg PO TID 11/27/23 03/10/24 History famotidine 10 mg tablet (Pepcid AC) 20 mg PO BID PRN heartburn 11/27/23 Unknown History fluticasone propionate 220 2 inh inhalation BID 11/27/23 03/10/24 History mcg/actuation HFA aerosol inhaler latanoprost 0.005 % eye drops 1 drp ophthalmic (eye) QHS 11/27/23 03/10/24 History loratadine 10 mg tablet 10 mg PO DAILY 11/27/23 03/10/24 History losartan 50 mg tablet 50 mg PO QDAY 11/27/23 03/10/24 History phenobarbital 60 mg tablet 120 mg PO 0800 11/27/23 Unknown History phenobarbital 60 mg tablet 180 mg PO SUMOWETHSA seizures 11/27/23 Unknown History polyethylene glycol 3350 17 17 g PO DAILY PRN CONSTIPATION 11/27/23 03/10/24 History gram/dose oral powder (Miralax) propylene glycol 1 %-glycerin 0.3 1 drp ophthalmic (eye) Q4H PRN dry 11/27/23 Unknown History % eye drops (Artificial Tears eye(s) (glycerin-peg)) acetaminophen 500 mg tablet 1,000 mg PO BID 03/11/24 03/10/24 History cholecalciferol (vitamin D3) 25 50 mcg PO DAILY 03/11/24 Unknown History mcg (1,000 unit) tablet diphenhydramine HCl 50 mg/mL 50 mg IM DAILY DISTONIA 03/11/24 03/10/24 History injection solution levothyroxine 200 mcg tablet 200 mcg PO DAILY 03/11/24 03/10/24 History nifedipine 90 mg tablet,extended 90 mg PO DAILY 03/11/24 03/10/24 History release phenobarbital 60 mg tablet 60 mg PO TUFR seizures 03/11/24 03/10/24 History quetiapine 25 mg tablet 25 mg PO BID PSYCHOSIS 03/11/24 Unknown History quetiapine 50 mg tablet 50 mg PO TID AGGITATION 03/11/24 03/10/24 History Allergy/AdvReac Type Severity Reaction Status Date / Time amoxicillin Allergy NEEDS Verified 03/11/24 08:36 FOLLOW-UP codeine Allergy Shortness Verified 03/11/24 08:36 of breath cyclobenzaprine (From Allergy NEEDS Verified 03/11/24 08:36 Flexeril) FOLLOW-UP dextromethorphan HBr (From Allergy Shortness Verified 03/11/24 08:36 Tylenol Cold Multi-Symptom) of breath diazepam (From Valium) Allergy Shortness Verified 03/11/24 08:36 of breath fluticasone (From Advair Allergy NEEDS Verified 03/11/24 08:36 Diskus) FOLLOW-UP Food Allergies: Uncoded Allergy Shortness Verified 03/11/24 08:36 of breath guaifenesin (From Tylenol Allergy Shortness Verified 03/11/24 08:36 Cold Multi-Symptom) of breath hydrocodone bitartrate (From Allergy Shortness Verified 03/11/24 08:36 Vicodin) of breath iodine Allergy Anaphylaxis Verified 03/11/24 08:36 Latex, Natural Rubber Allergy Shortness Verified 03/11/24 08:36 of breath morphine Allergy Shortness Verified 03/11/24 08:36 of breath NSAIDS (Non-Steroidal Allergy Shortness Verified 03/11/24 08:36 Anti-Inflamma of breath oxaprozin (From Daypro) Allergy NEEDS Verified 03/11/24 08:36 FOLLOW-UP oxycodone Allergy NEEDS Verified 03/11/24 08:36 FOLLOW-UP phenylephrine HCl (From Allergy Shortness Verified 03/11/24 08:36 Tylenol Cold Multi-Symptom) of breath phenytoin (From Dilantin) Allergy NEEDS Verified 03/11/24 08:36 FOLLOW-UP phenytoin sodium (From Allergy Shortness Verified 03/11/24 08:36 Dilantin) of breath phenytoin sodium extended Allergy Shortness Verified 03/11/24 08:36 (From Dilantin) of breath povidone-iodine (From Allergy BLISTERS Verified 03/11/24 08:36 Betadine) pseudoephedrine HCl (From Allergy Shortness Verified 03/11/24 08:36 Tylenol Cold Multi-Symptom) of breath salmeterol (From Advair Allergy NEEDS Verified 03/11/24 08:36 Diskus) FOLLOW-UP shellfish derived Allergy NEEDS Verified 03/11/24 08:36 FOLLOW-UP soap (From Betadine) Allergy BLISTERS Verified 03/11/24 08:36 tetracycline Allergy NEEDS Verified 03/11/24 08:36 FOLLOW-UP tositumomab iodine-131 Allergy NEEDS Verified 03/11/24 08:36 FOLLOW-UP muscle relaxers Allergy Shortness Uncoded 05/22/23 11:04 of breath Family History Other Arthritis CVA (cerebral vascular accident) Cancer Depression Diabetes Emphysema lung Hypertension Surgical History History of cholecystectomy History of tonsillectomy History of total hysterectomy History of total knee replacement History of bilateral tympanoplasty History of tubal ligation History of D&C Social History Smoking Status: Never smoker second hand exposure: Yes alcohol intake: never substance use type: does not use what type of physical activity do you participate in: walking do you feel safe at home: Yes ROS Review of Systems ROS Unobtainable: due to mental status Physical Exam Const Constitutional Narrative: Currently unresponsive but protecting her airway. HEENT normocephalic and head/scalp atraumatic Eyes conjunctivae normal and no scleral icterus Neck supple General: trachea midline Chest inspection of chest normal Resp Effort and Inspection: tachypneic Auscultation: diminished lung sounds Cardio regular rate and regular rhythm GI normal to inspection, nondistended, normoactive bowel sounds Extremity General Extremity: edema; Negative for clubbing Neuro Neuro Narrative: Currently nonresponsive to verbal and tactile stimulation. Psych Mood & Affect: flat affect Lab / Micro Data 03/12/24 05:19 03/12/24 05:19 Labs: Laboratory Results - last 24 hr 03/11/24 08:59: Magnesium 1.9, Lactate Dehydrogenase 250 H, Total Creatine Kinase 429 H, Troponin I High Sens 25, C-React Prot Ext Range 141.00 H, B-Natriuretic Peptide 82.5, Phenobarbital 54 H 03/11/24 12:34: Hgb 12.1, Hct 37.7, Procalcitonin 0.15 H 03/11/24 18:10: Hgb 12.1, Hct 36.1 L 03/12/24 00:18: Hgb 11.8 L, Hct 34.9 L 03/12/24 05:19: WBC 17.8 H, RBC 3.72 L, Hgb 11.4 L, Hct 34.6 L, MCV 93.0, MCH 30.6, MCHC 32.9, RDW Std Deviation 55.4 H, RDW Coeff of [place] 16.5 H, Plt Count 185, MPV 10.3, Immature Gran % (Auto) 0.400, Neut % (Auto) 89.0 H, Lymph % (Auto) 5.3 L, [place] % (Auto) 5.2, Eos % (Auto) 0.0, Baso % (Auto) 0.1, Absolute Neuts (auto) 15.9 H, Absolute Lymphs (auto) 0.94, Nucleated RBC % 0, PT 16.5 H, INR 1.3, APTT 50.1 H, Sodium 140 03/12/24 05:19: Sodium Cancelled, Potassium 4.2 03/12/24 05:19: Potassium Cancelled, Chloride 108 H 03/12/24 05:19: Chloride Cancelled, Carbon Dioxide 23.0 03/12/24 05:19: Carbon Dioxide Cancelled, Anion Gap 9 03/12/24 05:19: Anion Gap Cancelled, BUN 52 H 03/12/24 05:19: BUN Cancelled, Creatinine 1.42 H 03/12/24 05:19: Creatinine Cancelled, Estim Creat Clear Calc 45.24 03/12/24 05:19: Estim Creat Clear Calc Cancelled, Est GFR (MDRD) Af Amer 46 L 03/12/24 05:19: Est GFR (MDRD) Af Amer Cancelled, Est GFR (MDRD) Non-Af 38 L 03/12/24 05:19: Est GFR (MDRD) Non-Af Cancelled, BUN/Creatinine Ratio 36.6 H 03/12/24 05:19: BUN/Creatinine Ratio Cancelled, Glucose 140 H 03/12/24 05:19: Glucose Cancelled, Calcium 9.1 03/12/24 05:19: Calcium Cancelled, Total Bilirubin 0.30, AST 33, ALT 30, Alkaline Phosphatase 138 H, Total Creatine Kinase 218 H, Total Protein 7.1, Albumin 2.6 L, Globulin 4.5 H, Albumin/Globulin Ratio 0.6 L, TSH 0.431, Free T4 1.07 03/12/24 06:41: POC Glucose 140 H 03/12/24 09:20: APTT 48.9 H, Lactic Acid 1.1 Micro: Microbiology 03/11/24 18:50 Urine, Random Legionella Antigen - Final 03/11/24 09:01 Mucosa - Nose SARS-CoV-2, Influenza & RSV (PCR) - Final SARS-CoV-2 (COVID 19 PCR) 03/11/24 09:01 Vomitus Gastric Occult Blood - Final Imaging Radiology Impression Chest X-Ray 03/12/24 03:25 IMPRESSION: Low lung volumes and patient rotation with streaky bibasilar atelectasis versus other airspace disease, to include aspiration or other pneumonia. Recommend follow-up to resolution.. Electronically Signed: Ashok Julien MD at 5:20 EDT , Chest X-Ray 03/12/24 09:30 IMPRESSION: Progressive atelectasis and/or infiltrates at the lung bases. Further follow-up recommended. Electronically Signed: Chapo Norman MD at 10:28 EDT , Charges/Coding Visit Charges Inpatient E&M: 12086 Init Hosp L3
--- NOTE | 2024-03-12 10:34 | PCM.CONS.GEN ---
Assessment & Plan Assessment/Plan (1) Encephalopathy: (2) COVID-19: (3) Acute hypoxic respiratory failure: PLAN: covid with concern for aspiration. Sister is worried about possible neuroleptic malignant syndrome given her psych meds. H/o PCN/amox allergy. Now on vanc/brittney and dex/remdesivir. Avoiding Actemra due to concern for co-infection. Will follow, thank you HPI Consult Data Date of Consult: 03/12/24 HPI Narrative Reason for Consultation: covid HPI Narrative: SIERRA MORRISON, is a 73 F with h/o schizophrenia, taken to ED from [facility] 03/11 due to new onset coffee ground emesis, altered mental status and inability to speak. At baseline she is communicative per her sister at bedside. Also new fever, cough, hypoxia. Covid (+) here. O2 worsened after episode of emesis, now on vanc/brittney, remdesivir, and dex. ROS unobtainable due to mental status [facility] Medical History Epilepsy Hammer toes of both feet Cerebrovascular disease Age related cataract Wears glasses Wears hearing aid Rash Walker as ambulation aid Easy bruising History of diverticulitis Gastric reflux Non-smoker Shortness of breath on exertion Vericose veins History of CVA (cerebrovascular accident) Seizure disorder Thyroid disorder Rheumatoid arthritis Diverticulitis Sleep apnea COPD (chronic obstructive pulmonary disease) Diabetes mellitus type 2 in obese Benign essential hypertension Convulsion Osteoarthritis Hypothyroid TIA (transient ischemic attack) Hypercholesterolemia Anemia in chronic illness Allergic rhinitis Glaucoma Morbid obesity Peripheral venous insufficiency GERD (gastroesophageal reflux disease) Asthma Schizophrenia Depression Anxiety disorder Hyperlipidemia Hypertension Home Medications ?Medication ?Instructions ?Recorded ?Last Taken ?Type clopidogrel 75 mg tablet 75 mg PO DAILY 03/28/13 03/10/24 History hydrochlorothiazide 25 mg tablet 25 mg PO DAILY ##0 03/28/13 03/10/24 History metoprolol succinate 100 mg 100 mg PO DAILY 03/28/13 12/19/20 History tablet,extended release 24 hr paliperidone 6 mg tablet,extended 6 mg PO QHS 01/31/17 03/10/24 History release 24 hr albuterol sulfate 90 mcg/actuation 2 puff inhalation Q6H PRN 08/10/22 Unknown Rx aerosol inhaler shortness of breath or wheezing #8.5 grams montelukast 10 mg tablet 10 mg PO QHS #90 tabs 12/03/22 03/10/24 Rx albuterol sulfate 2.5 mg/3 mL 2.5 mg inhalation DAILY PRN 11/27/23 Unknown History (0.083 %) solution for nebulization shortness of breath or wheezing atorvastatin 20 mg tablet 20 mg PO QDAY 11/27/23 03/11/24 History clonazepam 0.5 mg tablet 0.5 mg PO TID 11/27/23 03/10/24 History famotidine 10 mg tablet (Pepcid AC) 20 mg PO BID PRN heartburn 11/27/23 Unknown History fluticasone propionate 220 2 inh inhalation BID 11/27/23 03/10/24 History mcg/actuation HFA aerosol inhaler latanoprost 0.005 % eye drops 1 drp ophthalmic (eye) QHS 11/27/23 03/10/24 History loratadine 10 mg tablet 10 mg PO DAILY 11/27/23 03/10/24 History losartan 50 mg tablet 50 mg PO QDAY 11/27/23 03/10/24 History phenobarbital 60 mg tablet 120 mg PO 0800 11/27/23 Unknown History phenobarbital 60 mg tablet 180 mg PO SUMOWETHSA seizures 11/27/23 Unknown History polyethylene glycol 3350 17 17 g PO DAILY PRN CONSTIPATION 11/27/23 03/10/24 History gram/dose oral powder (Miralax) propylene glycol 1 %-glycerin 0.3 1 drp ophthalmic (eye) Q4H PRN dry 11/27/23 Unknown History % eye drops (Artificial Tears eye(s) (glycerin-peg)) acetaminophen 500 mg tablet 1,000 mg PO BID 03/11/24 03/10/24 History cholecalciferol (vitamin D3) 25 50 mcg PO DAILY 03/11/24 Unknown History mcg (1,000 unit) tablet diphenhydramine HCl 50 mg/mL 50 mg IM DAILY DISTONIA 03/11/24 03/10/24 History injection solution levothyroxine 200 mcg tablet 200 mcg PO DAILY 03/11/24 03/10/24 History nifedipine 90 mg tablet,extended 90 mg PO DAILY 03/11/24 03/10/24 History release phenobarbital 60 mg tablet 60 mg PO TUFR seizures 03/11/24 03/10/24 History quetiapine 25 mg tablet 25 mg PO BID PSYCHOSIS 03/11/24 Unknown History quetiapine 50 mg tablet 50 mg PO TID AGGITATION 03/11/24 03/10/24 History Allergy/AdvReac Type Severity Reaction Status Date / Time amoxicillin Allergy NEEDS Verified 03/11/24 08:36 FOLLOW-UP codeine Allergy Shortness Verified 03/11/24 08:36 of breath cyclobenzaprine (From Allergy NEEDS Verified 03/11/24 08:36 Flexeril) FOLLOW-UP dextromethorphan HBr (From Allergy Shortness Verified 03/11/24 08:36 Tylenol Cold Multi-Symptom) of breath diazepam (From Valium) Allergy Shortness Verified 03/11/24 08:36 of breath fluticasone (From Advair Allergy NEEDS Verified 03/11/24 08:36 Diskus) FOLLOW-UP Food Allergies: Uncoded Allergy Shortness Verified 03/11/24 08:36 of breath guaifenesin (From Tylenol Allergy Shortness Verified 03/11/24 08:36 Cold Multi-Symptom) of breath hydrocodone bitartrate (From Allergy Shortness Verified 03/11/24 08:36 Vicodin) of breath iodine Allergy Anaphylaxis Verified 03/11/24 08:36 Latex, Natural Rubber Allergy Shortness Verified 03/11/24 08:36 of breath morphine Allergy Shortness Verified 03/11/24 08:36 of breath NSAIDS (Non-Steroidal Allergy Shortness Verified 03/11/24 08:36 Anti-Inflamma of breath oxaprozin (From Daypro) Allergy NEEDS Verified 03/11/24 08:36 FOLLOW-UP oxycodone Allergy NEEDS Verified 03/11/24 08:36 FOLLOW-UP phenylephrine HCl (From Allergy Shortness Verified 03/11/24 08:36 Tylenol Cold Multi-Symptom) of breath phenytoin (From Dilantin) Allergy NEEDS Verified 03/11/24 08:36 FOLLOW-UP phenytoin sodium (From Allergy Shortness Verified 03/11/24 08:36 Dilantin) of breath phenytoin sodium extended Allergy Shortness Verified 03/11/24 08:36 (From Dilantin) of breath povidone-iodine (From Allergy BLISTERS Verified 03/11/24 08:36 Betadine) pseudoephedrine HCl (From Allergy Shortness Verified 03/11/24 08:36 Tylenol Cold Multi-Symptom) of breath salmeterol (From Advair Allergy NEEDS Verified 03/11/24 08:36 Diskus) FOLLOW-UP shellfish derived Allergy NEEDS Verified 03/11/24 08:36 FOLLOW-UP soap (From Betadine) Allergy BLISTERS Verified 03/11/24 08:36 tetracycline Allergy NEEDS Verified 03/11/24 08:36 FOLLOW-UP tositumomab iodine-131 Allergy NEEDS Verified 03/11/24 08:36 FOLLOW-UP muscle relaxers Allergy Shortness Uncoded 05/22/23 11:04 of breath Family History Other Arthritis CVA (cerebral vascular accident) Cancer Depression Diabetes Emphysema lung Hypertension Surgical History History of cholecystectomy History of tonsillectomy History of total hysterectomy History of total knee replacement History of bilateral tympanoplasty History of tubal ligation History of D&C Social History Smoking Status: Never smoker second hand exposure: Yes alcohol intake: never substance use type: does not use what type of physical activity do you participate in: walking do you feel safe at home: Yes Physical Exam Const no apparent distress Constitutional Narrative: ill appearing General Appearance: lethargic HEENT normocephalic and head/scalp atraumatic Eyes PERRL and EOMs intact bilaterally Neck supple and No nodes Resp Auscultation: diminished lung sounds Cardio Rate: tachycardic GI soft to palpation, non-tender and non-distended Extremity General Extremity: Negative for edema Skin no rashes or lesions noted Neuro Neuro Narrative: non verbal Lab / Micro Data Attestation: I reviewed the patient's lab results. 03/12/24 05:19 03/12/24 05:19 Labs: Laboratory Results - last 24 hr 03/11/24 08:59: Magnesium 1.9, Lactate Dehydrogenase 250 H, Total Creatine Kinase 429 H, Troponin I High Sens 25, C-React Prot Ext Range 141.00 H, B-Natriuretic Peptide 82.5, Phenobarbital 54 H 03/11/24 12:34: Hgb 12.1, Hct 37.7, Procalcitonin 0.15 H 03/11/24 18:10: Hgb 12.1, Hct 36.1 L 03/12/24 00:18: Hgb 11.8 L, Hct 34.9 L 03/12/24 05:19: WBC 17.8 H, RBC 3.72 L, Hgb 11.4 L, Hct 34.6 L, MCV 93.0, MCH 30.6, MCHC 32.9, RDW Std Deviation 55.4 H, RDW Coeff of [place] 16.5 H, Plt Count 185, MPV 10.3, Immature Gran % (Auto) 0.400, Neut % (Auto) 89.0 H, Lymph % (Auto) 5.3 L, [place] % (Auto) 5.2, Eos % (Auto) 0.0, Baso % (Auto) 0.1, Absolute Neuts (auto) 15.9 H, Absolute Lymphs (auto) 0.94, Nucleated RBC % 0, PT 16.5 H, INR 1.3, APTT 50.1 H, Sodium 140 03/12/24 05:19: Sodium Cancelled, Potassium 4.2 03/12/24 05:19: Potassium Cancelled, Chloride 108 H 03/12/24 05:19: Chloride Cancelled, Carbon Dioxide 23.0 03/12/24 05:19: Carbon Dioxide Cancelled, Anion Gap 9 03/12/24 05:19: Anion Gap Cancelled, BUN 52 H 03/12/24 05:19: BUN Cancelled, Creatinine 1.42 H 03/12/24 05:19: Creatinine Cancelled, Estim Creat Clear Calc 45.24 03/12/24 05:19: Estim Creat Clear Calc Cancelled, Est GFR (MDRD) Af Amer 46 L 03/12/24 05:19: Est GFR (MDRD) Af Amer Cancelled, Est GFR (MDRD) Non-Af 38 L 03/12/24 05:19: Est GFR (MDRD) Non-Af Cancelled, BUN/Creatinine Ratio 36.6 H 03/12/24 05:19: BUN/Creatinine Ratio Cancelled, Glucose 140 H 03/12/24 05:19: Glucose Cancelled, Calcium 9.1 03/12/24 05:19: Calcium Cancelled, Total Bilirubin 0.30, AST 33, ALT 30, Alkaline Phosphatase 138 H, Total Creatine Kinase 218 H, Total Protein 7.1, Albumin 2.6 L, Globulin 4.5 H, Albumin/Globulin Ratio 0.6 L, TSH 0.431, Free T4 1.07 03/12/24 06:41: POC Glucose 140 H 03/12/24 09:20: APTT 48.9 H, Lactic Acid 1.1 Micro: Microbiology 03/11/24 18:50 Urine, Random Legionella Antigen - Final 03/11/24 09:01 Mucosa - Nose SARS-CoV-2, Influenza & RSV (PCR) - Final SARS-CoV-2 (COVID 19 PCR) 03/11/24 09:01 Vomitus Gastric Occult Blood - Final Imaging Radiology Impression Chest X-Ray 03/12/24 03:25 IMPRESSION: Low lung volumes and patient rotation with streaky bibasilar atelectasis versus other airspace disease, to include aspiration or other pneumonia. Recommend follow-up to resolution.. Electronically Signed: Ashok Julien MD at 5:20 EDT , Chest X-Ray 03/12/24 09:30 IMPRESSION: Progressive atelectasis and/or infiltrates at the lung bases. Further follow-up recommended. Electronically Signed: Chapo Norman MD at 10:28 EDT ,
[2024-03-12 10:45] LABS: Allen Test Positive; Base Excess 1 mmol/L (-2 to +2); Bicarbonate 24.4 mmol/L (22-26); Blood Gas Specimen Type ART; Mode Not entered; O2 Delivery Device airvo; PO2 109 mmHG (75-100); SITE R Radial; SO2 99 % (95-99); Total Carbon Dioxide 25 mmol/L; pCO2 32.5 mmHg (35-45); pH 7.48 (7.35-7.45)
[2024-03-12] MEDS: 0.9% Normal Saline (1000mL) 1,000 ML 999 ML IV ×3 (11:02→13:16)
[2024-03-12] MEDS: Vancomycin HCl 2,000 MG in 0.9% Normal Saline (500mL Bag) 500 ML 250 MG IV (11:04)
[2024-03-12] MEDS: dexAMETHasone 10 MG/ML Vial 6 MG IV (12:19)
[2024-03-12] MEDS: levETIRAcetam IV 2,000 MG in 0.9% Normal Saline (250mL Bag) 230 ML 1000 MG IV (12:20)
[2024-03-12] MEDS: Meropenem 1 GM in 0.9% Normal Saline (100mL MB+) 100 ML IV ×2 (13:16→21:12)
--- NOTE | 2024-03-12 13:31 | CASEMGMT ---
Social Work- SW called [facility] and obtained a copy of directives, confirming Colleen Armendariz, pt sister, as POA. TOI placed directives on chart. YANICK Joe
[2024-03-12 13:46] LABS: Hemoglobin A1c 6.1 % (3.8-5.6)
--- NOTE | 2024-03-12 13:50 | PCM.RX.CS ---
Consult Antibiotic Management Pharmacy has been consulted to manage selected antibiotic: Vancomycin Type of Intervention Type of Consult: New start Suspected Infection Suspected Infection: Sepsis Prior Doses of Antibiotics Prior Doses of Antibiotics Received/Current Regimen: 03/12/24 2000MG given @ 1104 Labs Labs: Sodium 140 mmol/L (136-145) 03/12/24 05:19 Sodium Cancelled 03/12/24 05:19 Potassium 4.2 mmol/L (3.5-5.1) 03/12/24 05:19 Potassium Cancelled 03/12/24 05:19 Chloride 108 mmol/L (98-107) H 03/12/24 05:19 Chloride Cancelled 03/12/24 05:19 Carbon Dioxide 23.0 mmol/L (21.0-32.0) 03/12/24 05:19 Carbon Dioxide Cancelled 03/12/24 05:19 Anion Gap 9 (5-15) 03/12/24 05:19 Anion Gap Cancelled 03/12/24 05:19 BUN 52 mg/dL (7-18) H 03/12/24 05:19 BUN Cancelled 03/12/24 05:19 Creatinine 1.42 mg/dL (0.55-1.02) H 03/12/24 05:19 Creatinine Cancelled 03/12/24 05:19 Est GFR (MDRD) Af Amer 46 mL/min (>60) L 03/12/24 05:19 Est GFR (MDRD) Af Amer Cancelled 03/12/24 05:19 Est GFR (MDRD) Non-Af 38 mL/min (>60) L 03/12/24 05:19 Est GFR (MDRD) Non-Af Cancelled 03/12/24 05:19 BUN/Creatinine Ratio 36.6 RATIO (10-20) H 03/12/24 05:19 BUN/Creatinine Ratio Cancelled 03/12/24 05:19 Glucose 140 mg/dL (74-106) H 03/12/24 05:19 Glucose Cancelled 03/12/24 05:19 Microbiology Microbiology: Microbiology 03/11/24 09:01 Mucosa - Nose SARS-CoV-2, Influenza & RSV (PCR) - Final SARS-CoV-2 (COVID 19 PCR) 03/11/24 10:12 Urine, Catheterized Urine Culture - Preliminary Gram negative robbin 03/11/24 18:50 Urine, Random Legionella Antigen - Final 03/11/24 09:01 Vomitus Gastric Occult Blood - Final Dosing Weight Weight used for dosin kg Goal Trough Goal Trough: 15-20 mcg/mL Pharmacy Plan for Drug Dosing Pharmacy Plan for Drug Dosin04/12/24 start Vancomycin 1000mg every 12 hours, starting at 2300 Pharmacy Service will continue to monitor and adjust dosing as required. Follow-Up Labs Follow-Up Labs: Trough: Vancomycin Date/Time Labs Ordered Labs to be done on [date and time ordered]: 03/13/24 @ 1280
--- NOTE | 2024-03-12 18:25 | EX.PCM.CON.G ---
HPI Consult Data Date of Consult: 03/16/24 HPI Narrative Reason for Consultation: Hematemesis HPI Narrative: SIERRA MORRISON, is a 73 F who presents for evaluation of shortness of breath and hematemesis. She was sent from [facility] for evaluation.. She has been at [facility] since August due to inability to care for herself. She history of schizophrenia. She was supposed to be facility to [facility] due to mood disorder and psychosis. She is sent home on a different SSRI along with melatonin. She was started recently Seroquel and patient been tolerating it well. She had a recent cough, edition states difficulty with p.o. intake. Per sister patient is not herself, normally can converse it and recognize her. On arrival per nursing patient had emesis appeared coffee-ground. From her medical records appears to be on Plavix history of CVA years ago. No cardiac history. She was diagnosed with COVID and sent to the ICU for further monitoring. She also admitted to multiple episodes of hematemesis. [facility] Medical History Epilepsy Hammer toes of both feet Cerebrovascular disease Age related cataract Wears glasses Wears hearing aid Rash Walker as ambulation aid Easy bruising History of diverticulitis Gastric reflux Non-smoker Shortness of breath on exertion Vericose veins History of CVA (cerebrovascular accident) Seizure disorder Thyroid disorder Rheumatoid arthritis Diverticulitis Sleep apnea COPD (chronic obstructive pulmonary disease) Diabetes mellitus type 2 in obese Benign essential hypertension Convulsion Osteoarthritis Hypothyroid TIA (transient ischemic attack) Hypercholesterolemia Anemia in chronic illness Allergic rhinitis Glaucoma Morbid obesity Peripheral venous insufficiency GERD (gastroesophageal reflux disease) Asthma Schizophrenia Depression Anxiety disorder Hyperlipidemia Hypertension Home Medications ?Medication ?Instructions ?Recorded ?Last Taken ?Type clopidogrel 75 mg tablet 75 mg PO DAILY 03/28/13 03/10/24 History hydrochlorothiazide 25 mg tablet 25 mg PO DAILY ##0 03/28/13 03/10/24 History metoprolol succinate 100 mg 100 mg PO DAILY 03/28/13 12/19/20 History tablet,extended release 24 hr paliperidone 6 mg tablet,extended 6 mg PO QHS 01/31/17 03/10/24 History release 24 hr albuterol sulfate 90 mcg/actuation 2 puff inhalation Q6H PRN 08/10/22 Unknown Rx aerosol inhaler shortness of breath or wheezing #8.5 grams montelukast 10 mg tablet 10 mg PO QHS #90 tabs 12/03/22 03/10/24 Rx albuterol sulfate 2.5 mg/3 mL 2.5 mg inhalation DAILY PRN 11/27/23 Unknown History (0.083 %) solution for nebulization shortness of breath or wheezing atorvastatin 20 mg tablet 20 mg PO QDAY 11/27/23 03/11/24 History clonazepam 0.5 mg tablet 0.5 mg PO TID 11/27/23 03/10/24 History famotidine 10 mg tablet (Pepcid AC) 20 mg PO BID PRN heartburn 11/27/23 Unknown History fluticasone propionate 220 2 inh inhalation BID 11/27/23 03/10/24 History mcg/actuation HFA aerosol inhaler latanoprost 0.005 % eye drops 1 drp ophthalmic (eye) QHS 11/27/23 03/10/24 History loratadine 10 mg tablet 10 mg PO DAILY 11/27/23 03/10/24 History losartan 50 mg tablet 50 mg PO QDAY 11/27/23 03/10/24 History phenobarbital 60 mg tablet 120 mg PO 0800 11/27/23 Unknown History phenobarbital 60 mg tablet 180 mg PO SUMOWETHSA seizures 11/27/23 Unknown History polyethylene glycol 3350 17 17 g PO DAILY PRN CONSTIPATION 11/27/23 03/10/24 History gram/dose oral powder (Miralax) propylene glycol 1 %-glycerin 0.3 1 drp ophthalmic (eye) Q4H PRN dry 11/27/23 Unknown History % eye drops (Artificial Tears eye(s) (glycerin-peg)) acetaminophen 500 mg tablet 1,000 mg PO BID 03/11/24 03/10/24 History cholecalciferol (vitamin D3) 25 50 mcg PO DAILY 03/11/24 Unknown History mcg (1,000 unit) tablet diphenhydramine HCl 50 mg/mL 50 mg IM X1 DISTONIA 03/11/24 03/10/24 History injection solution levothyroxine 200 mcg tablet 200 mcg PO DAILY 03/11/24 03/10/24 History nifedipine 90 mg tablet,extended 90 mg PO DAILY 03/11/24 03/10/24 History release phenobarbital 60 mg tablet 60 mg PO TUFR seizures 03/11/24 03/10/24 History quetiapine 25 mg tablet 25 mg PO BID PSYCHOSIS 03/11/24 Unknown History quetiapine 50 mg tablet 50 mg PO TID AGGITATION 03/11/24 03/10/24 History Allergy/AdvReac Type Severity Reaction Status Date / Time amoxicillin Allergy NEEDS Verified 03/11/24 08:36 FOLLOW-UP codeine Allergy Shortness Verified 03/11/24 08:36 of breath cyclobenzaprine (From Allergy NEEDS Verified 03/11/24 08:36 Flexeril) FOLLOW-UP dextromethorphan HBr (From Allergy Shortness Verified 03/11/24 08:36 Tylenol Cold Multi-Symptom) of breath diazepam (From Valium) Allergy Shortness Verified 03/11/24 08:36 of breath fluticasone (From Advair Allergy NEEDS Verified 03/11/24 08:36 Diskus) FOLLOW-UP Food Allergies: Uncoded Allergy Shortness Verified 03/11/24 08:36 of breath guaifenesin (From Tylenol Allergy Shortness Verified 03/11/24 08:36 Cold Multi-Symptom) of breath hydrocodone bitartrate (From Allergy Shortness Verified 03/11/24 08:36 Vicodin) of breath iodine Allergy Anaphylaxis Verified 03/11/24 08:36 Latex, Natural Rubber Allergy Shortness Verified 03/11/24 08:36 of breath morphine Allergy Shortness Verified 03/11/24 08:36 of breath NSAIDS (Non-Steroidal Allergy Shortness Verified 03/11/24 08:36 Anti-Inflamma of breath oxaprozin (From Daypro) Allergy NEEDS Verified 03/11/24 08:36 FOLLOW-UP oxycodone Allergy NEEDS Verified 03/11/24 08:36 FOLLOW-UP phenylephrine HCl (From Allergy Shortness Verified 03/11/24 08:36 Tylenol Cold Multi-Symptom) of breath phenytoin (From Dilantin) Allergy NEEDS Verified 03/11/24 08:36 FOLLOW-UP phenytoin sodium (From Allergy Shortness Verified 03/11/24 08:36 Dilantin) of breath phenytoin sodium extended Allergy Shortness Verified 03/11/24 08:36 (From Dilantin) of breath povidone-iodine (From Allergy BLISTERS Verified 03/11/24 08:36 Betadine) pseudoephedrine HCl (From Allergy Shortness Verified 03/11/24 08:36 Tylenol Cold Multi-Symptom) of breath salmeterol (From Advair Allergy NEEDS Verified 03/11/24 08:36 Diskus) FOLLOW-UP shellfish derived Allergy NEEDS Verified 03/11/24 08:36 FOLLOW-UP soap (From Betadine) Allergy BLISTERS Verified 03/11/24 08:36 tetracycline Allergy NEEDS Verified 03/11/24 08:36 FOLLOW-UP tositumomab iodine-131 Allergy NEEDS Verified 03/11/24 08:36 FOLLOW-UP muscle relaxers Allergy Shortness Uncoded 05/22/23 11:04 of breath Family History Other Arthritis CVA (cerebral vascular accident) Cancer Depression Diabetes Emphysema lung Hypertension Surgical History History of cholecystectomy History of tonsillectomy History of total hysterectomy History of total knee replacement History of bilateral tympanoplasty History of tubal ligation History of D&C Social History Smoking Status: Never smoker second hand exposure: Yes alcohol intake: never substance use type: does not use what type of physical activity do you participate in: walking do you feel safe at home: Yes ROS Review of Systems ROS Unobtainable: due to mental status Physical Exam Const no apparent distress Constitutional Narrative: ill appearing General Appearance: lethargic HEENT normocephalic and head/scalp atraumatic Eyes PERRL and EOMs intact bilaterally Neck supple and No nodes Resp Auscultation: diminished lung sounds Cardio Rate: tachycardic GI soft to palpation, non-tender and non-distended Extremity General Extremity: Negative for edema Skin no rashes or lesions noted Neuro Neuro Narrative: non verbal Lab / Micro Data 03/16/24 06:27 03/16/24 06:27 Labs: Laboratory Results - last 24 hr 03/11/24 08:59: Phenobarbital 54 H 03/12/24 00:18: Hgb 11.8 L, Hct 34.9 L 03/12/24 05:19: WBC 17.8 H, RBC 3.72 L, Hgb 11.4 L, Hct 34.6 L, MCV 93.0, MCH 30.6, MCHC 32.9, RDW Std Deviation 55.4 H, RDW Coeff of Piedad 16.5 H, Plt Count 185, MPV 10.3, Immature Gran % (Auto) 0.400, Neut % (Auto) 89.0 H, Lymph % (Auto) 5.3 L, Dixon % (Auto) 5.2, Eos % (Auto) 0.0, Baso % (Auto) 0.1, Absolute Neuts (auto) 15.9 H, Absolute Lymphs (auto) 0.94, Nucleated RBC % 0, PT 16.5 H, INR 1.3, APTT 50.1 H, Sodium 140 03/12/24 05:19: Sodium Cancelled, Potassium 4.2 03/12/24 05:19: Potassium Cancelled, Chloride 108 H 03/12/24 05:19: Chloride Cancelled, Carbon Dioxide 23.0 03/12/24 05:19: Carbon Dioxide Cancelled, Anion Gap 9 03/12/24 05:19: Anion Gap Cancelled, BUN 52 H 03/12/24 05:19: BUN Cancelled, Creatinine 1.42 H 03/12/24 05:19: Creatinine Cancelled, Estim Creat Clear Calc 45.24 03/12/24 05:19: Estim Creat Clear Calc Cancelled, Est GFR (MDRD) Af Amer 46 L 03/12/24 05:19: Est GFR (MDRD) Af Amer Cancelled, Est GFR (MDRD) Non-Af 38 L 03/12/24 05:19: Est GFR (MDRD) Non-Af Cancelled, BUN/Creatinine Ratio 36.6 H 03/12/24 05:19: BUN/Creatinine Ratio Cancelled, Glucose 140 H 03/12/24 05:19: Glucose Cancelled, Hemoglobin A1c 6.1 H, Calcium 9.1 03/12/24 05:19: Calcium Cancelled, Total Bilirubin 0.30, AST 33, ALT 30, Alkaline Phosphatase 138 H, Total Creatine Kinase 218 H 03/12/24 05:19: Total Creatine Kinase Cancelled, Total Protein 7.1, Albumin 2.6 L, Globulin 4.5 H, Albumin/Globulin Ratio 0.6 L, TSH 0.431, Free T4 1.07 03/12/24 06:41: POC Glucose 140 H 03/12/24 09:20: APTT 48.9 H, Lactic Acid 1.1 Micro: Microbiology 03/11/24 12:06 Urine, Clean Catch Streptococcus pneumoniae Antigen (M - Final 03/12/24 13:07 Nasal Secretion MRSA (PCR) - Final Meth. resistant Staph. aureus 03/11/24 09:01 Mucosa - Nose SARS-CoV-2, Influenza & RSV (PCR) - Final SARS-CoV-2 (COVID 19 PCR) 03/11/24 10:12 Urine, Catheterized Urine Culture - Preliminary Gram negative robbin 03/11/24 18:50 Urine, Random Legionella Antigen - Final ABG Data ABG results: ABG 03/12/24 10:41 Specimen Type ART Sample Site R Radial pH 7.48 H Bicarbonate Actual 24.4 Total CO2 25 Base Excess 1 O2 Saturation 99 O2 % 60.0 ABG pCO2 32.5 L ABG pO2 109 H Wicho Test Positive O2 Delivery Device airvo Vent Mode Not entered Imaging Radiology Impression Chest X-Ray 03/12/24 03:25 IMPRESSION: Low lung volumes and patient rotation with streaky bibasilar atelectasis versus other airspace disease, to include aspiration or other pneumonia. Recommend follow-up to resolution.. Electronically Signed: Ashok Julien MD at 5:20 EDT , Chest X-Ray 03/12/24 09:30 IMPRESSION: Progressive atelectasis and/or infiltrates at the lung bases. Further follow-up recommended. Electronically Signed: Chapo Norman MD at 10:28 EDT , Assessment & Plan Assessment/Plan (1) Encephalopathy: (2) COVID-19: PLAN: Plan This is 73-year-old female is admitted from [facility] for hematemesis, change in mental status and COVID-19 infection. Patient is getting better and regarding her COVID-19 pneumonia Hematemesis: Patient may be stable for EGD tomorrow. N.p.o. past midnight. Charges/Coding Visit Charges Inpatient E&M: 91669 Init Hosp L3
[2024-03-12] MEDS: PHENOBARBITAL SODIUM IV (21:11)
[2024-03-12] MEDS: NORMAL SALINE 0.9% IV (21:11)
[2024-03-12] MEDS: Vancomycin IV 1,000 MG/200 ML BAG 200 MG IV (21:12)
[2024-03-13] VITALS (15 sets, daily range): BP systolic 92–154; BP diastolic 40–86; PULSE 64–109; RESP 12–27; TEMP 36.1–36.6; O2SAT 94–100; BMI 51.5
[2024-03-13] MEDS: Pantoprazole Sodium 40 MG in 0.9% Normal Saline (100mL MB+) 100 ML 330 MG IV ×2 (01:00→14:22)
[2024-03-13 06:10] LABS: Absolute Lymphocyte Count 1.57 X10^3/uL (0.83-4.51); Absolute Neutrophil Count 15.6 X10^3/uL (2.0-7.7); Basophil# 0.02 X10^3/uL; Basophil% 0.1 % (0-1); Eosinophils% 0.5 % (0-5); Hematocrit 30.1 % (37-47); Hemoglobin 9.5 g/dL (12.0-15.0); Lymphocyte # 1.57 X10^3/ul (0.83-4.51); Lymphocyte % 8.5 % (19-41); Mean Corp Hgb Conc 31.6 g/dL (32-36); Mean Corpuscular Hgb 30.9 pg (27.0-32.0); Mean Platelet Vol. 10.1 fl (6.2-12.0); Monocyte# 1.12 X10^3/uL; Monocyte% 6.1 % (0-10); NRBC Flagged by Analyzer 0 % (0-5); Neutrophil # 15.59 X10^3/uL (2.7-7.7); Neutrophil % 84.3 % (47-70); POSITIVE MORPHOLOGY YES; Platelet Count 150 K/mm3 (150-450); RBC Distribution Width CV 17.2 % (11.6-14.6); RBC Distribution Width SD 61.9 fl (35.1-43.9); Red Blood Count 3.07 M/mm3 (4.2-5.4); White Blood Count 18.5 K/mm3 (4.4-11.0)
[2024-03-13 06:39] LABS: ALB/GLOB Ratio 0.6 RATIO (0.9-2.4); AST(SGOT) 29 U/L (15-37); Alanine Aminotransfer ALT/SGPT 25 U/L (13-56); Albumin, Serum 2.3 g/dL (3.2-5.0); Alkaline Phosphatase 115 U/L (45-117); Anion Gap 3 (5-15); BUN 40 mg/dL (7-18); BUN/Creat Ratio 42.7 RATIO (10-20); Calcium,Total 8.7 mg/dL (8.5-10.1); Chloride 116 mmol/L (98-107); Creatinine, Serum 0.94 mg/dL (0.55-1.02); EST Glomerular Filtration Rate 62 mL/min (>60); Est Glom Filt Rate - Afr Amer 75 mL/min (>60); Estimated Creatinine Clearance 69.79 ml/min; Glucose 106 mg/dL (74-106); Potassium 3.5 mmol/L (3.5-5.1); Protein, Total 6.3 g/dL (6.4-8.2); Sodium Level 145 mmol/L (136-145)
--- NOTE | 2024-03-13 07:15 | PN.CC_ITS ---
Assessment & Plan Assessment/Plan (1) Acute hypoxic respiratory failure: (2) Encephalopathy: (3) COVID-19: (4) Acute UTI: PLAN: Plan RECOMMENDATIONS: 1. Continue broad-spectrum antimicrobials pending finalized culture results. 2. Continue antiepileptics per neurology recommendations. 3. Wean supplemental oxygen to maintain saturations at or above 90%. 4. Continue Decadron and remdesivir. 5. Encourage incentive spirometer use and mobilize patient as tolerated. IMPRESSIONS: 1. Hypotension Resolved. Appears to be secondary to intravascular volume depletion, as the patient is hemodynamically stable at the present time, following fluid resuscitation yesterday. She does have underlying COVID along with suspected UTI, on antimicrobials. For now, the patient will be monitored clinically. 2. Acute hypoxemic respiratory failure Clinical concern for underlying COVID-19 pneumonia. The patient will be continued on supplemental oxygen along with Decadron and remdesivir per ID recommendations. 3. Encephalopathy Unclear etiology. Initial concern for possible neuroleptic malignant syndrome versus nonconvulsive status. However, EEG was unremarkable for seizure activity. Encephalopathy may be secondary to underlying infection, especially in light of her clinical improvement this morning. TSH was within normal limits. Blood gas was unremarkable. 4. Anemia There was initial concern for possible GI bleed at presentation. There were reported instances of hematemesis with negative gastro occult stool testing. At this time, I would hold off on upper endoscopy pending improvement in the patient's clinical status. Continue PPI therapy. 5. History of mild intermittent asthma/obstructive sleep apnea/diabetes mellitus/history of schizophrenia Complicates care, management, recovery and prognosis. Continue supportive measures as noted above. This note was generated with [employer] dictation software. It may contain incorrect words, spelling, and punctuation that were not noted in checking the note before signing. Subjective Subjective The patient was seen and examined at the bedside this morning. Events from the last 24 hours have been reviewed. The patient is currently afebrile, hemodynamically stable and maintaining appropriate oxygen saturations on 5 L/min via nasal cannula. The patient never had to be initiated on any form of vasopressor support. Her mentation has improved this morning. She is requesting a telephone to be allowed to call her outbound sales representative. Hemoglobin this morning was noted to be 9.5 g/dL following fluid resuscitation yesterday. White count is elevated at 18,000. Creatinine has normalized. Objective Data Objective Data The patient's most recent lab work, culture data and imaging studies have all been personally reviewed. COVID PCR was positive on March 11. Urine culture is demonstrating growth of a gram-negative robbin. MRSA screen was positive. Lower extremity Doppler study was negative for DVT. Vital Signs: Vital Signs Temp Pulse Resp BP Pulse Ox O2 Del Method O2 Flow Rate 97.9 F 95 25 H 127/40 H 96 Nasal Cannula 5 03/13/24 04:00 03/13/24 07:00 03/13/24 07:00 03/13/24 07:00 03/13/24 07:00 03/13/24 07:00 03/13/24 07:00 FiO2 59 03/12/24 19:00 Oxygen Flow Rate (L/min) 5 Oxygen Delivery Method Nasal Cannula Weight: 290 lb 12.635 oz Body Mass Index (BMI) 51.5 Intake & Output: Intake and Output for Last 24 Hours 03/11/24 03/12/24 03/13/24 23:59 23:59 23:59 Intake Total 1140 / 1140 4633 / 4633 230 / 230 Output Total 240 / 240 150 / 150 Balance 900 / 900 4483 / 4483 230 / 230 Lab / Micro Data Attestation: I reviewed the patient's lab results. 03/13/24 05:45 03/13/24 05:45 Labs: Laboratory Results - last 24 hr 03/11/24 08:59: Phenobarbital 54 H 03/12/24 05:19: Sodium 140, Potassium 4.2, Chloride 108 H, Carbon Dioxide 23.0, Anion Gap 9, BUN 52 H, Creatinine 1.42 H, Estim Creat Clear Calc 45.24, Est GFR (MDRD) Af Amer 46 L, Est GFR (MDRD) Non-Af 38 L, BUN/Creatinine Ratio 36.6 H, G lucose 140 H, Hemoglobin A1c 6.1 H, Calcium 9.1, Total Bilirubin 0.30, AST 33, ALT 30, Alkaline Phosphatase 138 H, Total Creatine Kinase 218 H 03/12/24 05:19: Total Creatine Kinase Cancelled, Total Protein 7.1, Albumin 2.6 L, Globulin 4.5 H, Albumin/Globulin Ratio 0.6 L, TSH 0.431, Free T4 1.07 03/12/24 09:20: APTT 48.9 H, Lactic Acid 1.1 03/13/24 05:45: Sodium 145, Potassium 3.5, Chloride 116 H, Carbon Dioxide 26.0, Anion Gap 3 L, BUN 40 H, Creatinine 0.94, Estim Creat Clear Calc 69.79, Est GFR (MDRD) Af Amer 75, Est GFR (MDRD) Non-Af 62, BUN/Creatinine Ratio 42.7 H, Glucose 106, Calcium 8.7, Total Bilirubin 0.20, AST 29, ALT 25, Alkaline Phosphatase 115, Total Protein 6.3 L, Albumin 2.3 L, Globulin 4.0, A lbumin/Globulin Ratio 0.6 L Micro: Microbiology 03/11/24 12:06 Urine, Clean Catch Streptococcus pneumoniae Antigen (M - Final 03/12/24 13:07 Nasal Secretion MRSA (PCR) - Final Meth. resistant Staph. aureus 03/11/24 09:01 Mucosa - Nose SARS-CoV-2, Influenza & RSV (PCR) - Final SARS-CoV-2 (COVID 19 PCR) 03/11/24 10:12 Urine, Catheterized Urine Culture - Preliminary Gram negative robbin 03/11/24 18:50 Urine, Random Legionella Antigen - Final 03/11/24 09:01 Vomitus Gastric Occult Blood - Final ABG Data ABG results: ABG 03/12/24 10:41 Specimen Type ART Sample Site R Radial pH 7.48 H Bicarbonate Actual 24.4 Total CO2 25 Base Excess 1 O2 Saturation 99 O2 % 60.0 ABG pCO2 32.5 L ABG pO2 109 H Wicho Test Positive O2 Delivery Device airvo Vent Mode Not entered Radiography Diagnostic Testing: Radiology Impression Venous Doppler Study 03/12/24 03:28 Interpretation Summary Deep veins of the lower extremities are bilaterally patent and compressible segmentally. There is no evidence of deep vein thrombosis on either side. Valvular competence appears intact within the proximal deep venous systems bilaterally. The great saphenous veins appear bilaterally patent and compressible segmentally. Ordering Physician: Ibeth Parker Referring Physician: Richa Patel Performed By: Corona Givens, T Chest X-Ray 03/12/24 09:30 IMPRESSION: Progressive atelectasis and/or infiltrates at the lung bases. Further follow-up recommended. Electronically Signed: Chapo Norman MD at 10:28 EDT , Physical Exam Const alert and no apparent distress Constitutional Narrative: Still a bit confused but much more alert and interactive than yesterday. HEENT normocephalic and head/scalp atraumatic Eyes EOMs intact bilaterally, conjunctivae normal and no scleral icterus Neck supple General: trachea midline Chest inspection of chest normal Resp Auscultation: diminished lung sounds; Negative for rales, rhonchi or wheezes Cardio regular rate and regular rhythm GI normal to inspection, nondistended, normoactive bowel sounds Extremity General Extremity: edema; Negative for clubbing Neuro CN's II-XII intact bilaterally and no focal motor deficits Psych Mood & Affect: flat affect Charges/Coding Visit Charges Inpatient E&M: 44291 Subs Hosp L3
[2024-03-13 07:28] LABS: Differential Indicated SCAN CRITERIA MET
--- NOTE | 2024-03-13 07:57 | PCM.PN.HOSP ---
Reason for Visit Reason for Visit: Diagnoses Encephalopathy, unspecified (03/11/24) Acute respiratory failure with hypoxia (03/11/24) Urinary tract infection, site not specified (03/11/24) COVID-19 (03/11/24) Objective Data Objective Data Vital Signs: Vital Signs Temp Pulse Resp BP Pulse Ox O2 Del Method O2 Flow Rate 97.9 F 95 25 H 127/40 H 96 Nasal Cannula 4 03/13/24 04:00 03/13/24 07:00 03/13/24 07:00 03/13/24 07:00 03/13/24 07:00 03/13/24 07:46 03/13/24 07:46 FiO2 59 03/12/24 19:00 Oxygen Flow Rate (L/min) 4 Oxygen Delivery Method Nasal Cannula Weight: 290 lb 12.635 oz Body Mass Index (BMI) 51.5 Intake & Output: Intake and Output for Last 24 Hours 03/11/24 03/12/24 03/13/24 23:59 23:59 23:59 Intake Total 1140 / 1140 4633 / 4633 230 / 230 Output Total 240 / 240 150 / 150 Balance 900 / 900 4483 / 4483 230 / 230 Lab / Micro Data 03/13/24 05:45 03/13/24 05:45 Labs: Laboratory Results - last 24 hr 03/11/24 08:59: Phenobarbital 54 H 03/12/24 05:19: Hemoglobin A1c 6.1 H, Total Creatine Kinase 218 H 03/12/24 05:19: Total Creatine Kinase Cancelled 03/12/24 09:20: APTT 48.9 H, Lactic Acid 1.1 03/13/24 05:45: WBC 18.5 H, RBC 3.07 L, Hgb 9.5 L, Hct 30.1 L, MCV 98.0 D, MCH 30.9, MCHC 31.6 L, RDW Std Deviation 61.9 H, RDW Coeff of Piedad 17.2 H, Plt Count 150, MPV 10.1, Immature Gran % (Auto) 0.500, Neut % (Auto) 84.3 H, Lymph % (Auto) 8.5 L, Tift % (Auto) 6.1, Eos % (Auto) 0.5, Baso % (Auto) 0.1, Absolute Neuts (auto) 15.6 H, Absolute Lymphs (auto) 1.57, Nucleated RBC % 0, Sodium 145, Potassium 3.5, Chloride 116 H, Carbon Dioxide 26.0, Anion Gap 3 L, BUN 40 H, Creatinine 0.94, Estim Creat Clear Calc 69.79, Est GFR (MDRD) Af Amer 75, Est GFR (MDRD) Non-Af 62, BUN/Creatinine Ratio 42.7 H, Glucose 106, Calcium 8.7, Total Bilirubin 0.20, AST 29, ALT 25, Alkaline Phosphatase 115, Total Protein 6.3 L, Albumin 2.3 L, Globulin 4.0, Albumin/Globulin Ratio 0.6 L Micro: Microbiology 03/11/24 10:12 Urine, Catheterized Urine Culture - Final Proteus mirabilis 03/11/24 12:06 Urine, Clean Catch Streptococcus pneumoniae Antigen (M - Final 03/12/24 13:07 Nasal Secretion MRSA (PCR) - Final Meth. resistant Staph. aureus 03/11/24 09:01 Mucosa - Nose SARS-CoV-2, Influenza & RSV (PCR) - Final SARS-CoV-2 (COVID 19 PCR) 03/11/24 18:50 Urine, Random Legionella Antigen - Final 03/11/24 09:01 Vomitus Gastric Occult Blood - Final ABG Data ABG results: ABG 03/12/24 10:41 Specimen Type ART Sample Site R Radial pH 7.48 H Bicarbonate Actual 24.4 Total CO2 25 Base Excess 1 O2 Saturation 99 O2 % 60.0 ABG pCO2 32.5 L ABG pO2 109 H Wicho Test Positive O2 Delivery Device airvo Vent Mode Not entered Radiography Diagnostic Testing: Radiology Impression Venous Doppler Study 03/12/24 03:28 Interpretation Summary Deep veins of the lower extremities are bilaterally patent and compressible segmentally. There is no evidence of deep vein thrombosis on either side. Valvular competence appears intact within the proximal deep venous systems bilaterally. The great saphenous veins appear bilaterally patent and compressible segmentally. Ordering Physician: Ibeth Parker Referring Physician: Richa Patel Performed By: Corona Givens, T Chest X-Ray 03/12/24 09:30 IMPRESSION: Progressive atelectasis and/or infiltrates at the lung bases. Further follow-up recommended. Electronically Signed: Chapo Norman MD at 10:28 EDT , Physical Exam Narrative Seen and examined. Discussed with the emergency room physician and nursing staff. Patient awake and looks different person. She is communicative. She does not remember what had happened in last 2 days. She is moving her head and asking questions. She asked why she is here and wants to go home. BP improved. 121/69. Afebrile. Still tachypneic 25 to 27/min. On 4 to 5 L of oxygen. Hemoglobin dropped. Physical exam: General: Awake. Alert, oriented x 3. HEENT: Uses hearing aid. Atraumatic, PERRLA, EOMI, Normocephalic Oral: No Gingival or Mucosal Lesions/ Ulcerations Neck: No neck rigidity. No JVD, Negative Carotid Bruits Chest wall/Lungs: Air entry diminished in bilateral lung bases. Mild basilar coarse crepitations Cardiovascular: Sinus rhythm, heart rate controlled. Normal S1, Normal S2, systolic murmur. Abdomen: Bowel Sounds Present, Soft, Non Tender, Non-Distended : No dysuria. No renal angle tenderness. No suprapubic tenderness. Extremities: Mild chronic nonpitting edema, Capillary Refill Less than 3 Seconds Skin: No rashes, No breakdown Musculoskeletal: Bilateral TKR. Muscle rigidity involving neck muscles, jaw, upper and lower extremities. ROM severely restricted, bilateral hips and knee joints stiff. Neurological:DTR 2+/4. Rigidity of detail neuroexam unobtainable but does not seem focal neurological deficit. Psych/Mental Status: Flat affect Assessment & Plan Assessment/Plan (1) Encephalopathy: (2) COVID-19: PLAN: Plan This is 73-year-old female is admitted from [facility] for hematemesis, change in mental status and COVID-19 infection. As per sister patient had mild cough for last 2 to 3 days. 1. Acute hypoxic respiratory failure probably due to COVID-19 pneumonia complicated with secondary bacterial pneumonia possible aspiration pneumonitis: Chest x-ray individually reviewed. Hypoventilation, increased marking at the bilateral lung bases looks atelectasis. Patient is being admitted in PCU. COVID-19 PCR positive. RSV and influenza negative. Patient is started on IV dexamethasone and IV remdesivir. She is vaccinated with booster against COVID-19 03/12: ABG ordered. Patient on Airvo transfer to ICU. DNR CC arrest but okay with vasopressors. Chest x-ray done and reviewed and shows progressive bibasilar atelectasis. ABG 7.48/32.5/109 on Airvo 60% FiO2. Discussed with the emergency room physician. Patient has leukocytosis. CK and LDH and CRP elevated. Procalcitonin 0.15. 03/13: Patient on currently 2 L of oxygen. Awake and alert. Airvo discontinued. Still has leukocytosis. On broad-spectrum antibiotic. Instructional Manager recommended downgrade to PCU and transferred ordered. Suspected sepsis from pneumonia probably exacerbated by vomiting and aspiration and Proteus mirabilis UTI: The patient has sepsis with clinical indicators of fever, tachycardia, tachypnea and decreased urine output due to pneumonia and Proteus mirabilis with acute sepsis-related organ dysfunction as evidenced by acute hypoxic respiratory failure requiring Airvo, altered mental status, decreased urine output and fluid responsive hypotension. IV fluid as per sepsis protocol. IV antibiotic broadened to vancomycin and meropenem. Patient allergic to amoxicillin, charted as needs follow-up. ID consulted. vancomycin and Zosyn. Discontinue ceftriaxone. Continue dexamethasone and remdesivir. 03/13: Patient did not require vasopressor. She responded well with IV fluid bolus. Currently normotensive, awake and alert, talking coherent seems in baseline. 2. Mild chronic persistent asthma with exacerbation due to COVID-19 pneumonia and, severe obstructive sleep apnea: Patient follows in pulmonary office with Dr. Saldana and Heide Veliz. Last seen in November 2023, asthma controlled on Flovent. CPAP at 13 cm of H2O 3. Possible upper GI bleed: As per EMS [facility] patient had hematemesis although gastric occult blood test negative. Last EGD in December 2020 shows normal esophagus, stomach and duodenum. GI consulted. Patient may be stable for EGD tomorrow. 03/12: H&H 11.4/34.6%. Does not show acute drop therefore EGD not emergency. Patient also not hemodynamically stable for EGD. Continue PPI. 03/13: H&H dropped to 9.5/30%. No acute GI bleed after admission or last night. Patient has risk for sedation and anesthesia as she just recovered from 2 days of acute encephalopathy. Risk of benefits explained to the patient's sister and she understood. Discussed with Dr. Church. Plan for possible EGD tomorrow a.m. 4. Acute change in mental status/encephalopathy probably medications with history of schizophrenia, severe depression with psychotic symptoms with suspicion of neuroleptic malignant syndrome: Patient SSRI was recently changed. Patient on paliperidone monthly injection along with Seroquel and escitalopram. Patient might be overmedicated therefore will hold Seroquel. Continue escitalopram 03/12: Patient neuroexam looks more resid especially in the neck muscle, flexion extension and rotation, jaw muscles and lower extremities. This was discussed with the neurologist Dr. Trish Agustin. serum phenobarb level is high 54. EKG was done and does not show acute epileptiform activity but diffuse encephalopathy. Recommended to transfer to ICU therefore transfer call placed. In meantime continue phenobarbital. Keppra 2 g IV 1 dose ordered. 03/13: Patient mental status is back on baseline. On phenobarbital as recommended by the neurologist. I talked to the patient's sister and she said that she is getting more pressured speech talking loud therefore put back her on scheduled Seroquel 75 mg twice daily and 50 mg in the afternoon. She is also on Invega 6 mg at night. Advised to bring back the medication. On diphenhydramine 50 mg IM, decreased to 25 mg IM today. 5. Type 2 diabetes mellitus: Glucose in BMP 108. Likely to go up on steroid. Accu-Chek before meals and at bedtime with Humalog sliding scale coverage and hypoglycemia protocol. 03/13: A1c 6.1%. 6. Hypertension: Blood pressure in normal range. Systolic BP in 110s to 120s. Hold antihypertensive medication. 03/13: Continue holding antihypertensive medications. 7. Possible chronic epilepsy: Patient on high dose of phenobarbital. Hold now but will reevaluate tomorrow depending on the mental status. DVT prophylaxis: High risk. Hold pharmacological prophylaxis due to concern for GI bleed. Bilateral SCDs I talked to the patient's sister who is POA. She said that she does not want intubation or ventilator shocking or CPR but okay with IV fluid, vasopressors and central line. Living will/advanced directive/end of life care: Patient does have living will or advanced directive. His sister present in ED is power of patent prosecution attorney for health after discussion of benefits/risks procedures involved with full code, DNR CC arrest and DNR CC, the patient and her sister opted for DNR CC arrest with no intubation. Patient doesn't want artificial life support including intubation, tube feed, ventilator and/chest compression, central venous catheter, vasopressor and DC shock if needed Total time spent in [id number] encounter in discussion of advanced directive 17 minutes. Microbiology Past 72 Hours 03/11/24 12:06 Urine, Clean Catch Streptococcus pneumoniae Antigen (M - Final 03/12/24 13:07 Nasal Secretion MRSA (PCR) - Final Meth. resistant Staph. aureus 03/11/24 09:01 Mucosa - Nose SARS-CoV-2, Influenza & RSV (PCR) - Final SARS-CoV-2 (COVID 19 PCR) 03/11/24 10:12 Urine, Catheterized Urine Culture - Preliminary Gram negative robbin 03/11/24 18:50 Urine, Random Legionella Antigen - Final 03/11/24 09:01 Vomitus Gastric Occult Blood - Final Laboratory Results 03/11/24 08:59: Phenobarbital 54 H 03/11/24 18:10: Hgb 12.1, Hct 36.1 L 03/12/24 00:18: Hgb 11.8 L, Hct 34.9 L 03/12/24 05:19: WBC 17.8 H, RBC 3.72 L, Hgb 11.4 L, Hct 34.6 L, MCV 93.0, MCH 30.6, MCHC 32.9, RDW Std Deviation 55.4 H, RDW Coeff of Piedad 16.5 H, Plt Count 185, MPV 10.3, Immature Gran % (Auto) 0.400, Neut % (Auto) 89.0 H, Lymph % (Auto) 5.3 L, Tift % (Auto) 5.2, Eos % (Auto) 0.0, Baso % (Auto) 0.1, Absolute Neuts (auto) 15.9 H, Absolute Lymphs (auto) 0.94, Nucleated RBC % 0, PT 16.5 H, INR 1.3, APTT 50.1 H, Sodium 140 03/12/24 05:19: Sodium Cancelled, Potassium 4.2 03/12/24 05:19: Potassium Cancelled, Chloride 108 H 03/12/24 05:19: Chloride Cancelled, Carbon Dioxide 23.0 03/12/24 05:19: Carbon Dioxide Cancelled, Anion Gap 9 03/12/24 05:19: Anion Gap Cancelled, BUN 52 H 03/12/24 05:19: BUN Cancelled, Creatinine 1.42 H 03/12/24 05:19: Creatinine Cancelled, Estim Creat Clear Calc 45.24 03/12/24 05:19: Estim Creat Clear Calc Cancelled, Est GFR (MDRD) Af Amer 46 L 03/12/24 05:19: Est GFR (MDRD) Af Amer Cancelled, Est GFR (MDRD) Non-Af 38 L 03/12/24 05:19: Est GFR (MDRD) Non-Af Cancelled, BUN/Creatinine Ratio 36.6 H 03/12/24 05:19: BUN/Creatinine Ratio Cancelled, Glucose 140 H 03/12/24 05:19: Glucose Cancelled, Hemoglobin A1c 6.1 H, Calcium 9.1 03/12/24 05:19: Calcium Cancelled, Total Bilirubin 0.30, AST 33, ALT 30, Alkaline Phosphatase 138 H, Total Creatine Kinase 218 H 03/12/24 05:19: Total Creatine Kinase Cancelled, Total Protein 7.1, Albumin 2.6 L, Globulin 4.5 H, Albumin/Globulin Ratio 0.6 L, TSH 0.431, Free T4 1.07 03/12/24 06:41: POC Glucose 140 H 03/12/24 09:20: APTT 48.9 H, Lactic Acid 1.1 03/12/24 10:41: Specimen Type ART, Sample Site R Radial, pH 7.48 H, Bicarbonate Actual 24.4, Total CO2 25, Base Excess 1, O2 Saturation 99, O2 % 60.0, ABG pCO2 32.5 L, ABG pO2 109 H, Wicho Test Positive, O2 Delivery Device airvo, Vent Mode Not entered Clinical Impression(s) from Imaging Studies Chest X-Ray 03/11/24 08:41 IMPRESSION: Limited inspiratory effort. Mild degree of increased markings at the lung bases suggestive of mild bibasilar atelectasis. Brain CT 03/11/24 09:15 IMPRESSION: Chronic involutional changes of the brain. Charges/Coding Visit Charges Inpatient E&M: 25846 Subs Hosp L3
[2024-03-13] MEDS: dexAMETHasone 10 MG/ML Vial 6 MG IV (09:20)
[2024-03-13] MEDS: 0.9% Saline Lock 10 ML Syringe IV ×3 (09:22→20:53)
[2024-03-13] MEDS: Meropenem 1 GM in 0.9% Normal Saline (100mL MB+) 100 ML IV ×2 (09:23→20:53)
[2024-03-13] MEDS: NORMAL SALINE 0.9% IV (09:27)
[2024-03-13] MEDS: PHENOBARBITAL SODIUM IV (09:27)
[2024-03-13] MEDS: Budesonide Respules 0.5 MG/2 ML AMPUL.NEB. INHALATION ×2 (09:36→19:38)
[2024-03-13] MEDS: Remdesivir 100 MG in 0.9% Normal Saline (250mL Bag) 230 ML 250 MG IV (09:55)
[2024-03-13] MEDS: Vancomycin IV 1,000 MG/200 ML BAG 200 MG IV (11:08)
--- NOTE | 2024-03-13 11:21 | CASEMGMT ---
Social Work- SW met with pt, who was drowsy in bed, about d/c preferences. SW also called POA/sister Colleen to confirm that preference is to return to [facility]. DCA notified of pt preference. Plan: [facility]; when medically ready. YANICK Joe
--- NOTE | 2024-03-13 12:40 | PCM.PN.ID ---
Physical Exam Narrative Feeling much better, moved out of icu, less dyspnea, no fever Const alert and no apparent distress Resp Auscultation: diminished lung sounds Cardio regular rate and regular rhythm GI soft to palpation, non-tender and non-distended Skin no rashes or lesions noted ID ID: Route of nutrition/ use of supplements: [] Nutritional Intake: [] IV Site: [] Diaz Catheter: [] Assessment & Plan Assessment/Plan (1) Encephalopathy: (2) COVID-19: (3) Acute hypoxic respiratory failure: PLAN: covid with concern for aspiration. Mental status much improved today. H/o PCN/amox allergy. Now on vanc/brittney and dex/remdesivir. Will follow
--- NOTE | 2024-03-13 13:29 | CASEMGMT ---
[facility] is not able to take patient back over the weekend. Kate STEVENSON
--- NOTE | 2024-03-13 13:40 | NEURO.PNOTE ---
Assessment and Plan: Neuro Assessment/Plan SIERRA MORRISON is a 73 F with schizophrenia, seizures, on phenobarb, admitted with UTI and COVID. We were consulted for encephalopathy and some rigidity. She has not received Phenobarb for a couple days prior to this. She has improved and doing much better today with treatment of infections and continuation of phenobarb EEG showed moderate encephalopathy, no seizures. Toxic metabolic encephalatrophy No further workup pat this time We will sign off at this time. Can call with questions. I personally attended this patient and spent a total time of 30 minutes evaluating this patient including clinical assessment, review of chart, medical history imaging, and determining appropriate treatment and workup. Subject: Neurology Subjective Patient is improved, doing much better, she is awake, alert, following commands EEG Results Procedure Details EEG Procedure Details: SIERRA MORRISON is a 73 year old F with a past medical history of , who presents for evaluation of Electroencephalogram on DATE at TIME Objective Data Objective Data Vital Signs: Vital Signs Temp Pulse Resp BP Pulse Ox O2 Del Method O2 Flow Rate 97.2 F L 77 12 121/69 H 97 Nasal Cannula 2 03/13/24 10:00 03/13/24 10:00 03/13/24 10:00 03/13/24 10:00 03/13/24 10:00 03/13/24 10:00 03/13/24 10:00 FiO2 59 03/12/24 19:00 Oxygen Flow Rate (L/min) 2 Oxygen Delivery Method Nasal Cannula Weight: 131.9 kg Body Mass Index (BMI) 51.5 Intake & Output: Intake and Output for Last 24 Hours 03/11/24 03/12/24 03/13/24 23:59 23:59 23:59 Intake Total 1140 / 1140 4633 / 4633 851 / 851 Output Total 240 / 240 150 / 150 800 / 800 Balance 900 / 900 4483 / 4483 51 / 51 Lab / Micro Data 03/13/24 05:45 03/13/24 05:45 Labs: Laboratory Results - last 24 hr 03/12/24 05:19: Hemoglobin A1c 6.1 H 03/13/24 05:45: WBC 18.5 H, RBC 3.07 L, Hgb 9.5 L, Hct 30.1 L, MCV 98.0 D, MCH 30.9, MCHC 31.6 L, RDW Std Deviation 61.9 H, RDW Coeff of Piedad 17.2 H, Plt Count 150, MPV 10.1, Immature Gran % (Auto) 0.500, Neut % (Auto) 84.3 H, Lymph % (Auto) 8.5 L, [facility] % (Auto) 6.1, Eos % (Auto) 0.5, Baso % (Auto) 0.1, Absolute Neuts (auto) 15.6 H, Absolute Lymphs (auto) 1.57, Nucleated RBC % 0, Sodium 145, Potassium 3.5, Chloride 116 H, Carbon Dioxide 26.0, Anion Gap 3 L, BUN 40 H, Creatinine 0.94, Estim Creat Clear Calc 69.79, Est GFR (MDRD) Af Amer 75, Est GFR (MDRD) Non-Af 62, BUN/Creatinine Ratio 42.7 H, Glucose 106, Calcium 8.7, Total Bilirubin 0.20, AST 29, ALT 25, Alkaline Phosphatase 115, Total Protein 6.3 L, Albumin 2.3 L, Globulin 4.0, Albumin/Globulin Ratio 0.6 L Micro: Microbiology 03/11/24 08:59 Blood Culture (Wb) - Anticubital Right Blood Culture - Preliminary No growth in 48 hours. 03/11/24 10:12 Urine, Catheterized Urine Culture - Final Proteus mirabilis 03/11/24 12:06 Urine, Clean Catch Streptococcus pneumoniae Antigen (M - Final 03/12/24 13:07 Nasal Secretion MRSA (PCR) - Final Meth. resistant Staph. aureus 03/11/24 09:01 Mucosa - Nose SARS-CoV-2, Influenza & RSV (PCR) - Final SARS-CoV-2 (COVID 19 PCR) 03/11/24 18:50 Urine, Random Legionella Antigen - Final 03/11/24 09:01 Vomitus Gastric Occult Blood - Final Radiography Diagnostic Testing: Radiology Impression Venous Doppler Study 03/12/24 03:28 Interpretation Summary Deep veins of the lower extremities are bilaterally patent and compressible segmentally. There is no evidence of deep vein thrombosis on either side. Valvular competence appears intact within the proximal deep venous systems bilaterally. The great saphenous veins appear bilaterally patent and compressible segmentally. Ordering Physician: Ibeth Parker Referring Physician: Richa Patel Performed By: Corona Givens RVT
[2024-03-13] MEDS: Acetaminophen 500 MG Tablet 1000 MG PO (20:54)
[2024-03-13] MEDS: Montelukast 10 MG Tablet PO (20:54)
[2024-03-13] MEDS: Atorvastatin Calcium 20 MG Tablet PO (20:54)
[2024-03-13] MEDS: QUEtiapine 25 MG Tablet 50 MG PO (20:54)
[2024-03-13] MEDS: Phenobarbital 32.4 MG Tablet 64.8 MG PO (20:55)
[2024-03-13] MEDS: PALIPERIDONE 6 MG TAB.ER.24 PO (20:56)
[2024-03-13] MEDS: Latanoprost 0.005% 1 Bottle 1 DRP EACH EYE (21:03)
[2024-03-13 23:40] LABS: Vancomycin, Trough Level 15.7 ug/mL (5.0-15.0)
[2024-03-14] VITALS (8 sets, daily range): BP systolic 118–137; BP diastolic 57–93; PULSE 81–99; RESP 16–20; TEMP 35.7–36.6; O2SAT 93–98; BMI 53.0
[2024-03-14] MEDS: Vancomycin IV 1,000 MG/200 ML BAG 200 MG IV ×3 (00:07→23:07)
[2024-03-14] MEDS: Vancomycin Trough/Random Due 1 LAB MC (00:07)
[2024-03-14] MEDS: 0.9% Saline Lock 10 ML Syringe IV ×4 (00:07→22:00)
[2024-03-14] MEDS: Pantoprazole Sodium 40 MG in 0.9% Normal Saline (100mL MB+) 100 ML 330 MG IV ×2 (00:11→13:06)
--- NOTE | 2024-03-14 03:29 | PCM.RX.CS ---
Consult Antibiotic Management Pharmacy has been consulted to manage selected antibiotic: Vancomycin Type of Intervention Type of Consult: Follow-up Labs Labs: Sodium 145 mmol/L (136-145) 03/13/24 05:45 Potassium 3.5 mmol/L (3.5-5.1) 03/13/24 05:45 Chloride 116 mmol/L (98-107) H 03/13/24 05:45 Carbon Dioxide 26.0 mmol/L (21.0-32.0) 03/13/24 05:45 Anion Gap 3 (5-15) L 03/13/24 05:45 BUN 40 mg/dL (7-18) H 03/13/24 05:45 Creatinine 0.94 mg/dL (0.55-1.02) 03/13/24 05:45 Est GFR (MDRD) Af Amer 75 mL/min (>60) 03/13/24 05:45 Est GFR (MDRD) Non-Af 62 mL/min (>60) 03/13/24 05:45 BUN/Creatinine Ratio 42.7 RATIO (10-20) H 03/13/24 05:45 Glucose 106 mg/dL (74-106) 03/13/24 05:45 Vancomycin Trough 15.7 ug/mL (5.0-15.0) H 03/13/24 22:40 Microbiology Microbiology: Microbiology 03/11/24 08:59 Blood Culture (Wb) - Anticubital Right Blood Culture - Preliminary No growth in 48 hours. 03/11/24 10:12 Urine, Catheterized Urine Culture - Final Proteus mirabilis 03/11/24 12:06 Urine, Clean Catch Streptococcus pneumoniae Antigen (M - Final 03/12/24 13:07 Nasal Secretion MRSA (PCR) - Final Meth. resistant Staph. aureus 03/11/24 09:01 Mucosa - Nose SARS-CoV-2, Influenza & RSV (PCR) - Final SARS-CoV-2 (COVID 19 PCR) 03/11/24 18:50 Urine, Random Legionella Antigen - Final 03/11/24 09:01 Vomitus Gastric Occult Blood - Final Goal Trough Goal Trough: 15-20 mcg/mL Pharmacy Plan for Drug Dosing Pharmacy Plan for Drug Dosing: Pharmacy Service will continue to monitor and adjust dosing as required. TROUGH 15.7 @ 11.5 HOURS. NO CHANGES, FOLLOW UP TROUGH IN 2 DAYS Follow-Up Labs Follow-Up Labs: Trough: Vancomycin Date/Time Labs Ordered Labs to be done on [date and time ordered]: 03/15 @ 3082
[2024-03-14 04:44] LABS: Absolute Lymphocyte Count 1.83 X10^3/uL (0.83-4.51); Absolute Neutrophil Count 10.4 X10^3/uL (2.0-7.7); Basophil# 0.04 X10^3/uL; Basophil% 0.3 % (0-1); Eosinophil# 0.48 X10^3/uL; Eosinophils% 3.5 % (0-5); Hematocrit 29.7 % (37-47); Hemoglobin 9.5 g/dL (12.0-15.0); Lymphocyte # 1.83 X10^3/ul (0.83-4.51); Lymphocyte % 13.4 % (19-41); Mean Corpuscular Volume 97.1 fL (81-99); Mean Platelet Vol. 9.6 fl (6.2-12.0); Monocyte# 0.84 X10^3/uL; Monocyte% 6.2 % (0-10); NRBC Flagged by Analyzer 0 % (0-5); Neutrophil # 10.37 X10^3/uL (2.7-7.7); Neutrophil % 76.2 % (47-70); Platelet Count 156 K/mm3 (150-450); RBC Distribution Width CV 17.2 % (11.6-14.6); RBC Distribution Width SD 61.5 fl (35.1-43.9); Red Blood Count 3.06 M/mm3 (4.2-5.4); White Blood Count 13.6 K/mm3 (4.4-11.0)
[2024-03-14 05:01] LABS: Anion Gap 4 (5-15); BUN 40 mg/dL (7-18); BUN/Creat Ratio 51.2 RATIO (10-20); Calcium,Total 8.9 mg/dL (8.5-10.1); Chloride 112 mmol/L (98-107); Creatinine, Serum 0.78 mg/dL (0.55-1.02); EST Glomerular Filtration Rate 76 mL/min (>60); Est Glom Filt Rate - Afr Amer 92 mL/min (>60); Estimated Creatinine Clearance 82.01 ml/min; Glucose 110 mg/dL (74-106); Potassium 3.5 mmol/L (3.5-5.1); Sodium Level 141 mmol/L (136-145)
[2024-03-14] MEDS: Meropenem 1 GM in 0.9% Normal Saline (100mL MB+) 100 ML IV ×3 (05:36→21:59)
[2024-03-14] MEDS: Budesonide Respules 0.5 MG/2 ML AMPUL.NEB. INHALATION ×2 (08:05→19:18)
[2024-03-14] MEDS: dexAMETHasone 10 MG/ML Vial 6 MG IV (10:26)
[2024-03-14] MEDS: Acetaminophen 500 MG Tablet 1000 MG PO ×2 (10:27→21:59)
[2024-03-14] MEDS: Escitalopram Oxalate 10 MG Tablet PO (10:27)
[2024-03-14] MEDS: Cholecalciferol (VIT D3) 25 MCG TABLET (1,000 UNITS) 50 MCG PO (10:27)
[2024-03-14] MEDS: Phenobarbital 32.4 MG Tablet 129.6 MG PO (10:27)
[2024-03-14] MEDS: Loratadine 10 MG Tablet PO (10:27)
[2024-03-14] MEDS: Remdesivir 100 MG in 0.9% Normal Saline (250mL Bag) 230 ML 250 MG IV (10:31)
[2024-03-14] MEDS: QUEtiapine 25 MG Tablet PO (13:06)
[2024-03-14] MEDS: QUEtiapine 25 MG Tablet 50 MG PO ×2 (13:06→21:59)
--- NOTE | 2024-03-14 14:25 | PN.HOSP_ITS ---
Reason for Visit Reason for Visit: Diagnoses Encephalopathy, unspecified (03/11/24) Acute respiratory failure with hypoxia (03/11/24) Urinary tract infection, site not specified (03/11/24) COVID-19 (03/11/24) Objective Data Objective Data Vital Signs: Vital Signs Temp Pulse Resp BP Pulse Ox O2 Del Method O2 Flow Rate 96.5 F L 99 18 137/93 H 97 Nasal Cannula 2 03/14/24 10:32 03/14/24 10:32 03/14/24 10:32 03/14/24 10:32 03/14/24 10:32 03/14/24 10:32 03/14/24 10:36 FiO2 30 03/14/24 02:52 Oxygen Flow Rate (L/min) 2 Oxygen Delivery Method Nasal Cannula Weight: 299 lb 9.731 oz Body Mass Index (BMI) 53.0 Intake & Output: Intake and Output for Last 24 Hours 03/12/24 03/13/24 03/14/24 23:59 23:59 23:59 Intake Total 4633 / 4633 1161 / 1161 1110 / 1110 Output Total 150 / 150 800 / 800 200 / 200 Balance 4483 / 4483 361 / 361 910 / 910 Lab / Micro Data 03/14/24 04:30 03/14/24 04:30 Labs: Laboratory Results - last 24 hr 03/13/24 22:40: Vancomycin Trough 15.7 H 03/14/24 04:30: WBC 13.6 H, RBC 3.06 L, Hgb 9.5 L, Hct 29.7 L, MCV 97.1, MCH 31.0, MCHC 32.0, RDW Std Deviation 61.5 H, RDW Coeff of Piedad 17.2 H, Plt Count 156, MPV 9.6, Immature Gran % (Auto) 0.400, Neut % (Auto) 76.2 H, Lymph % (Auto) 13.4 L, [place] % (Auto) 6.2, Eos % (Auto) 3.5, Baso % (Auto) 0.3, Absolute Neuts (auto) 10.4 H, Absolute Lymphs (auto) 1.83, Nucleated RBC % 0, Sodium 141, Potassium 3.5, Chloride 112 H, Carbon Dioxide 24.0, Anion Gap 4 L, BUN 40 H, Creatinine 0.78, Estim Creat Clear Calc 82.01, Est GFR (MDRD) Af Amer 92, Est GFR (MDRD) Non-Af 76, BUN/Creatinine Ratio 51.2 H, Glucose 110 H, Calcium 8.9 Micro: Microbiology 03/12/24 09:20 Blood Culture (Wb) - Right Hand Blood Culture - Preliminary No growth in 48 hours. 03/11/24 08:59 Blood Culture (Wb) - Anticubital Right Blood Culture - Preliminary No growth in 48 hours. 03/11/24 10:12 Urine, Catheterized Urine Culture - Final Proteus mirabilis 03/11/24 12:06 Urine, Clean Catch Streptococcus pneumoniae Antigen (M - Final 03/12/24 13:07 Nasal Secretion MRSA (PCR) - Final Meth. resistant Staph. aureus 03/11/24 09:01 Mucosa - Nose SARS-CoV-2, Influenza & RSV (PCR) - Final SARS-CoV-2 (COVID 19 PCR) 03/11/24 18:50 Urine, Random Legionella Antigen - Final 03/11/24 09:01 Vomitus Gastric Occult Blood - Final Physical Exam Narrative Seen and examined. Patient is awake and talking coherent. She is very hard of hearing and uses hearing aid in both ears. BP 137/93. Afebrile. On 2 L of oxygen. Physical exam: General: Awake. Alert, oriented x 3. HEENT: Uses hearing aid. Atraumatic, PERRLA, EOMI, Normocephalic Oral: No Gingival or Mucosal Lesions/ Ulcerations Neck: No neck rigidity. No JVD, Negative Carotid Bruits Chest wall/Lungs: Air entry diminished in bilateral lung bases. Mild basilar coarse crepitations Cardiovascular: Sinus rhythm, heart rate controlled. Normal S1, Normal S2, systolic murmur. Abdomen: Bowel Sounds Present, Soft, Non Tender, Non-Distended : No dysuria. No renal angle tenderness. No suprapubic tenderness. Extremities: Mild chronic nonpitting edema, Capillary Refill Less than 3 Seconds Skin: No rashes, No breakdown Musculoskeletal: Bilateral TKR. Muscle rigidity involving neck muscles, jaw, upper and lower extremities. ROM severely restricted, bilateral hips and knee joints stiff. Neurological:DTR 2+/4. Rigidity of detail neuroexam unobtainable but does not seem focal neurological deficit. Psych/Mental Status: Flat affect, pressured speech. Sometimes disorganized speech and thought Assessment & Plan Assessment/Plan (1) Encephalopathy: (2) COVID-19: PLAN: Plan This is 73-year-old female is admitted from [facility] for hematemesis, change in mental status and COVID-19 infection. As per sister patient had mild cough for last 2 to 3 days. 1. Acute hypoxic respiratory failure probably due to COVID-19 pneumonia complicated with secondary bacterial pneumonia possible aspiration pneumonitis: Chest x-ray individually reviewed. Hypoventilation, increased marking at the bilateral lung bases looks atelectasis. Patient is being admitted in PCU. COVID-19 PCR positive. RSV and influenza negative. Patient is started on IV dexamethasone and IV remdesivir. She is vaccinated with booster against COVID- 19 03/12: ABG ordered. Patient on Airvo transfer to ICU. DNR CC arrest but okay with vasopressors. Chest x-ray done and reviewed and shows progressive bibasilar atelectasis. ABG 7.48/32.5/109 on Airvo 60% FiO2. Discussed with the water plant maintenance mechanic. Patient has leukocytosis. CK and LDH and CRP elevated. Procalcitonin 0.15. 03/13: Patient on currently 2 L of oxygen. Awake and alert. Airvo discontinued. Still has leukocytosis. On broad-spectrum antibiotic. Family Mediator recommended downgrade to PCU and transferred ordered. 03/14: Oxygen requirement is 2 L. Tachypnea has resolved. MRSA nasal PCR positive. Suspected sepsis from pneumonia probably exacerbated by vomiting and aspiration and Proteus mirabilis UTI: The patient has sepsis with clinical indicators of fever, tachycardia, tachypnea and decreased urine output due to pneumonia and Proteus mirabilis with acute sepsis-related organ dysfunction as evidenced by acute hypoxic respiratory failure requiring Airvo, altered mental status, decreased urine output and fluid responsive hypotension. IV fluid as per sepsis protocol. IV antibiotic broadened to vancomycin and meropenem. Patient allergic to amoxicillin, charted as needs follow-up. ID consulted. vancomycin and Zosyn. Discontinue ceftriaxone. Continue dexamethasone and remdesivir. 03/13: Patient did not require vasopressor. She responded well with IV fluid bolus. Currently normotensive, awake and alert, talking coherent seems in baseline. 2. Mild chronic persistent asthma with exacerbation due to COVID-19 pneumonia and, severe obstructive sleep apnea: Patient follows in pulmonary office with Dr. Saldana and Heide Veliz. Last seen in November 2023, asthma controlled on Flovent. CPAP at 13 cm of H2O 3. Possible upper GI bleed: As per EMS intermediate patient had hematemesis although gastric occult blood test negative. Last EGD in December 2020 shows normal esophagus, stomach and duodenum. GI consulted. Patient may be stable for EGD tomorrow. 03/12: H&H 11.4/34.6%. Does not show acute drop therefore EGD not emergency. Patient also not hemodynamically stable for EGD. Continue PPI. 03/13: H&H dropped to 9.5/30%. No acute GI bleed after admission or last night. Patient has risk for sedation and anesthesia as she just recovered from 2 days of acute encephalopathy. Risk of benefits explained to the patient's sister and she understood. Discussed with Dr. Church. Plan for possible EGD tomorrow a.m. 03/14: H&H 9.5/29.7%, similar to yesterday. Discussed with Dr. Church. No acute emergency therefore plan for EGD on Saturday. 4. Acute change in mental status/encephalopathy probably medications with history of schizophrenia, severe depression with psychotic symptoms with suspicion of neuroleptic malignant syndrome: Patient SSRI was recently changed. Patient on paliperidone monthly injection along with Seroquel and escitalopram. Patient might be overmedicated therefore will hold Seroquel. Continue escitalopram 03/12: Patient neuroexam looks more resid especially in the neck muscle, flexion extension and rotation, jaw muscles and lower extremities. This was discussed with the neurologist Dr. Trish Agustin. serum phenobarb level is high 54. EKG was done and does not show acute epileptiform activity but diffuse encephalopathy. Recommended to transfer to ICU therefore transfer call placed. In meantime continue phenobarbital. Keppra 2 g IV 1 dose ordered. 03/13: Patient mental status is back on baseline. On phenobarbital as recommended by the neurologist. I talked to the patient's sister and she said that she is getting more pressured speech talking loud therefore put back her on scheduled Seroquel 75 mg twice daily and 50 mg in the afternoon. She is also on Invega 6 mg at night. Advised to bring back the medication. On diphenhydramine 50 mg IM, decreased to 25 mg IM today. 03/14: Yesterday as per nursing staff diphenhydramine 50 mg IM daily was wrong entered and it was 1 day 1 dose therefore it was discontinued on 03/13. 5. Type 2 diabetes mellitus: Glucose in BMP 108. Likely to go up on steroid. Accu-Chek before meals and at bedtime with Humalog sliding scale coverage and hypoglycemia protocol. 03/13: A1c 6.1%. 6. Hypertension: Blood pressure in normal range. Systolic BP in 110s to 120s. Hold antihypertensive medication. 03/13: Continue holding antihypertensive medications. 7. Possible chronic epilepsy: Patient on high dose of phenobarbital. Hold now but will reevaluate tomorrow depending on the mental status. DVT prophylaxis: High risk. Hold pharmacological prophylaxis due to concern for GI bleed. Bilateral SCDs I talked to the patient's sister who is POA. She said that she does not want intubation or ventilator shocking or CPR but okay with IV fluid, vasopressors and central line. Living will/advanced directive/end of life care: Patient does have living will or advanced directive. His sister present in ED is power of defense attorney for health after discussion of benefits/risks procedures involved with full code, DNR CC arrest and DNR CC, the patient and her sister opted for DNR CC arrest with no intubation. Patient doesn't want artificial life support including intubation, tube feed, ventilator and/chest compression, central venous catheter, vasopressor and DC shock if needed Total time spent in [id number] encounter in discussion of advanced directive 17 minutes. Clinical Impression(s) from Imaging Studies Chest X-Ray 03/11/24 08:41 IMPRESSION: Limited inspiratory effort. Mild degree of increased markings at the lung bases suggestive of mild bibasilar atelectasis. Brain CT 03/11/24 09:15 IMPRESSION: Chronic involutional changes of the brain. Charges/Coding Visit Charges Inpatient E&M: 18172 Subs Hosp L2
[2024-03-14] MEDS: Latanoprost 0.005% 1 Bottle 1 DRP EACH EYE (21:57)
[2024-03-14] MEDS: Atorvastatin Calcium 20 MG Tablet PO (21:59)
[2024-03-14] MEDS: PALIPERIDONE 6 MG TAB.ER.24 PO (21:59)
[2024-03-14] MEDS: Montelukast 10 MG Tablet PO (21:59)
[2024-03-14] MEDS: Phenobarbital 32.4 MG Tablet 178.2 MG PO (22:14)
[2024-03-15] VITALS (7 sets, daily range): BP systolic 124–149; BP diastolic 79–86; PULSE 63–79; RESP 18; TEMP 36–36.6; O2SAT 94–99; BMI 53.6
[2024-03-15] MEDS: Pantoprazole Sodium 40 MG in 0.9% Normal Saline (100mL MB+) 100 ML 330 MG IV ×2 (01:37→13:21)
[2024-03-15] MEDS: Meropenem 1 GM in 0.9% Normal Saline (100mL MB+) 100 ML IV ×2 (06:11→13:19)
[2024-03-15] MEDS: QUEtiapine 25 MG Tablet PO ×2 (06:15→13:19)
[2024-03-15] MEDS: Levothyroxine 100 MCG Tablet 200 MCG PO (06:16)
[2024-03-15] MEDS: QUEtiapine 25 MG Tablet 50 MG PO ×3 (06:16→21:36)
[2024-03-15 06:56] LABS: Absolute Lymphocyte Count 1.74 X10^3/uL (0.83-4.51); Absolute Neutrophil Count 5.1 X10^3/uL (2.0-7.7); Basophil# 0.02 X10^3/uL; Basophil% 0.3 % (0-1); Eosinophil# 0.36 X10^3/uL; Eosinophils% 4.5 % (0-5); Hematocrit 30.5 % (37-47); Hemoglobin 9.6 g/dL (12.0-15.0); Lymphocyte # 1.74 X10^3/ul (0.83-4.51); Lymphocyte % 21.8 % (19-41); Mean Corp Hgb Conc 31.5 g/dL (32-36); Mean Corpuscular Hgb 30.3 pg (27.0-32.0); Mean Corpuscular Volume 96.2 fL (81-99); Mean Platelet Vol. 9.9 fl (6.2-12.0); Monocyte# 0.73 X10^3/uL; Monocyte% 9.1 % (0-10); NRBC Flagged by Analyzer 0 % (0-5); Neutrophil # 5.08 X10^3/uL (2.7-7.7); Neutrophil % 63.5 % (47-70); Platelet Count 190 K/mm3 (150-450); RBC Distribution Width CV 17.2 % (11.6-14.6); RBC Distribution Width SD 61.3 fl (35.1-43.9); Red Blood Count 3.17 M/mm3 (4.2-5.4)
[2024-03-15 07:12] LABS: Anion Gap 4 (5-15); BUN 33 mg/dL (7-18); BUN/Creat Ratio 53.1 RATIO (10-20); Calcium,Total 8.9 mg/dL (8.5-10.1); Chloride 113 mmol/L (98-107); Creatinine, Serum 0.62 mg/dL (0.55-1.02); EST Glomerular Filtration Rate 100 mL/min (>60); Est Glom Filt Rate - Afr Amer 121 mL/min (>60); Estimated Creatinine Clearance 84.07 ml/min; Glucose 97 mg/dL (74-106); Potassium 3.8 mmol/L (3.5-5.1); Sodium Level 143 mmol/L (136-145)
[2024-03-15] MEDS: Budesonide Respules 0.5 MG/2 ML AMPUL.NEB. INHALATION ×2 (08:00→22:19)
[2024-03-15] MEDS: Remdesivir 100 MG in 0.9% Normal Saline (250mL Bag) 230 ML 250 MG IV (10:06)
[2024-03-15] MEDS: Cholecalciferol (VIT D3) 25 MCG TABLET (1,000 UNITS) 50 MCG PO (10:07)
[2024-03-15] MEDS: 0.9% Saline Lock 10 ML Syringe IV ×2 (10:07→21:35)
[2024-03-15] MEDS: dexAMETHasone 10 MG/ML Vial 6 MG IV (10:08)
[2024-03-15] MEDS: Phenobarbital 32.4 MG Tablet 129.6 MG PO (10:08)
[2024-03-15] MEDS: Acetaminophen 500 MG Tablet 1000 MG PO ×2 (10:08→21:36)
[2024-03-15] MEDS: Loratadine 10 MG Tablet PO (10:08)
[2024-03-15] MEDS: Escitalopram Oxalate 10 MG Tablet PO (10:12)
[2024-03-15] MEDS: Vancomycin IV 1,000 MG/200 ML BAG 200 MG IV (10:14)
--- NOTE | 2024-03-15 14:03 | PCM.PN.HOSP ---
Reason for Visit Reason for Visit: Diagnoses Encephalopathy, unspecified (03/11/24) Acute respiratory failure with hypoxia (03/11/24) Urinary tract infection, site not specified (03/11/24) COVID-19 (03/11/24) Objective Data Objective Data Vital Signs: Vital Signs Temp Pulse Resp BP Pulse Ox O2 Del Method O2 Flow Rate 97.6 F L 79 18 139/86 H 94 Room Air 2 03/15/24 10:17 03/15/24 10:17 03/15/24 10:17 03/15/24 10:17 03/15/24 10:20 03/15/24 10:20 03/15/24 08:00 FiO2 30 03/14/24 02:52 Oxygen Flow Rate (L/min) 2 Oxygen Delivery Method Room Air Weight: 302 lb 7.587 oz Body Mass Index (BMI) 53.6 Intake & Output: Intake and Output for Last 24 Hours 03/13/24 03/14/24 03/15/24 23:59 23:59 23:59 Intake Total 1161 / 1161 1230 / 1230 1097.25 / 1097.25 Output Total 800 / 800 200 / 200 800 / 800 Balance 361 / 361 1030 / 1030 297.25 / 297.25 Lab / Micro Data 03/15/24 05:05 03/15/24 05:05 Labs: Laboratory Results - last 24 hr 03/15/24 05:05: WBC 8.0, RBC 3.17 L, Hgb 9.6 L, Hct 30.5 L, MCV 96.2, MCH 30.3, MCHC 31.5 L, RDW Std Deviation 61.3 H, RDW Coeff of [place] 17.2 H, Plt Count 190, MPV 9.9, Immature Gran % (Auto) 0.800, Neut % (Auto) 63.5, Lymph % (Auto) 21.8, [place] % (Auto) 9.1, Eos % (Auto) 4.5, Baso % (Auto) 0.3, Absolute Neuts (auto) 5.1, Absolute Lymphs (auto) 1.74, Nucleated RBC % 0, Sodium 143, Potassium 3.8, Chloride 113 H, Carbon Dioxide 26.0, Anion Gap 4 L, BUN 33 H, Creatinine 0.62, Estim Creat Clear Calc 84.07, Est GFR (MDRD) Af Amer 121, Est GFR (MDRD) Non-Af 100, BUN/Creatinine Ratio 53.1 H, Glucose 97, Calcium 8.9 Micro: Microbiology 03/12/24 09:20 Blood Culture (Wb) - Right Hand Blood Culture - Preliminary No growth in 48 hours. 03/11/24 08:59 Blood Culture (Wb) - Anticubital Right Blood Culture - Preliminary No growth in 48 hours. 03/11/24 10:12 Urine, Catheterized Urine Culture - Final Proteus mirabilis 03/11/24 12:06 Urine, Clean Catch Streptococcus pneumoniae Antigen (M - Final 03/12/24 13:07 Nasal Secretion MRSA (PCR) - Final Meth. resistant Staph. aureus 03/11/24 09:01 Mucosa - Nose SARS-CoV-2, Influenza & RSV (PCR) - Final SARS-CoV-2 (COVID 19 PCR) 03/11/24 18:50 Urine, Random Legionella Antigen - Final 03/11/24 09:01 Vomitus Gastric Occult Blood - Final Physical Exam Narrative Seen and examined. Patient is awake and talking coherent. Discussed with the patient and sister. No acute issues overnight. She is very hard of hearing and uses hearing aid in both ears. Mental status at baseline. Physical exam: General: Awake. Alert, oriented x 3. HEENT: Uses hearing aid. Atraumatic, PERRLA, EOMI, Normocephalic Oral: No Gingival or Mucosal Lesions/ Ulcerations Neck: No neck rigidity. No JVD, Negative Carotid Bruits Chest wall/Lungs: Air entry diminished in bilateral lung bases. Mild basilar coarse crepitations, improving. Pulse ox: 94% on room air Cardiovascular: Sinus rhythm, heart rate controlled. Normal S1, Normal S2, systolic murmur. Abdomen: Bowel Sounds Present, Soft, Non Tender, Non-Distended : No dysuria. No renal angle tenderness. No suprapubic tenderness. Extremities: Mild chronic nonpitting edema, Capillary Refill Less than 3 Seconds Skin: No rashes, No breakdown Musculoskeletal: Bilateral TKR. Muscle rigidity improving. ROM restricted over bilateral hips and knee joints stiff. Neurological:DTR 2+/4. No acute focal neurological deficit. Psych/Mental Status: Flat affect, pressured speech. Sometimes disorganized speech and thought Assessment & Plan Assessment/Plan (1) Encephalopathy: (2) COVID-19: PLAN: Plan This is 73-year-old female is admitted from [facility] for hematemesis, change in mental status and COVID-19 infection. As per sister patient had mild cough for last 2 to 3 days. 1. Acute hypoxic respiratory failure probably due to COVID-19 pneumonia complicated with secondary bacterial pneumonia possible aspiration pneumonitis: Chest x-ray individually reviewed. Hypoventilation, increased marking at the bilateral lung bases looks atelectasis. Patient is being admitted in PCU. COVID-19 PCR positive. RSV and influenza negative. Patient is started on IV dexamethasone and IV remdesivir. She is vaccinated with booster against COVID-19 03/12: ABG ordered. Patient on Airvo transfer to ICU. DNR CC arrest but okay with vasopressors. Chest x-ray done and reviewed and shows progressive bibasilar atelectasis. ABG 7.48/32.5/109 on Airvo 60% FiO2. Discussed with the comber setter. Patient has leukocytosis. CK and LDH and CRP elevated. Procalcitonin 0.15. 10: Patient on currently 2 L of oxygen. Awake and alert. Airvo discontinued. Still has leukocytosis. On broad-spectrum antibiotic. Food Operations Manager recommended downgrade to PCU and transferred ordered. 03/14: Oxygen requirement is 2 L. Tachypnea has resolved. MRSA nasal PCR positive. 10: Currently 94% on room air Suspected sepsis from pneumonia probably exacerbated by vomiting and aspiration and Proteus mirabilis UTI: The patient has sepsis with clinical indicators of fever, tachycardia, tachypnea and decreased urine output due to pneumonia and Proteus mirabilis with acute sepsis-related organ dysfunction as evidenced by acute hypoxic respiratory failure requiring Airvo, altered mental status, decreased urine output and fluid responsive hypotension. IV fluid as per sepsis protocol. IV antibiotic broadened to vancomycin and meropenem. Patient allergic to amoxicillin, charted as needs follow-up. ID consulted. vancomycin and Zosyn. Discontinue ceftriaxone. Continue dexamethasone and remdesivir. 10/4: Patient did not require vasopressor. She responded well with IV fluid bolus. Currently normotensive, awake and alert, talking coherent seems in baseline. 10/6: Urine culture shows more than 100,000 colonies of Proteus mirabilis. Meropenem discontinued. Started on IV ceftriaxone. Continue IV vancomycin as MRSA nasal screen positive. ID follow-up tomorrow AM. 2. Mild chronic persistent asthma with exacerbation due to COVID-19 pneumonia and, severe obstructive sleep apnea: Patient follows in pulmonary office with Dr. Saldana and Heide Veliz. Last seen in November 2023, asthma controlled on Flovent. CPAP at 13 cm of H2O 3. Possible upper GI bleed: As per EMS longterm patient had hematemesis although gastric occult blood test negative. Last EGD in December 2020 shows normal esophagus, stomach and duodenum. GI consulted. Patient may be stable for EGD tomorrow. 03/12: H&H 11.4/34.6%. Does not show acute drop therefore EGD not emergency. Patient also not hemodynamically stable for EGD. Continue PPI. 03/13: H&H dropped to 9.5/30%. No acute GI bleed after admission or last night. Patient has risk for sedation and anesthesia as she just recovered from 2 days of acute encephalopathy. Risk of benefits explained to the patient's sister and she understood. Discussed with Dr. Church. Plan for possible EGD tomorrow a.m. 03/14: H&H 9.5/29.7%, similar to yesterday. Discussed with Dr. Church. No acute emergency therefore plan for EGD on Saturday. 03/15: H&H similar 9.6 for last 3 days. Plan for EGD tomorrow a.m. clinical update given to the patient's sister. 4. Acute change in mental status/encephalopathy probably medications with history of schizophrenia, severe depression with psychotic symptoms with suspicion of neuroleptic malignant syndrome: Patient SSRI was recently changed. Patient on paliperidone monthly injection along with Seroquel and escitalopram. Patient might be overmedicated therefore will hold Seroquel. Continue escitalopram 03/12: Patient neuroexam looks more resid especially in the neck muscle, flexion extension and rotation, jaw muscles and lower extremities. This was discussed with the neurologist Dr. Trish Agustin. serum phenobarb level is high 54. EKG was done and does not show acute epileptiform activity but diffuse encephalopathy. Recommended to transfer to ICU therefore transfer call placed. In meantime continue phenobarbital. Keppra 2 g IV 1 dose ordered. 03/13: Patient mental status is back on baseline. On phenobarbital as recommended by the neurologist. I talked to the patient's sister and she said that she is getting more pressured speech talking loud therefore put back her on scheduled Seroquel 75 mg twice daily and 50 mg in the afternoon. She is also on Invega 6 mg at night. Advised to bring back the medication. On diphenhydramine 50 mg IM, decreased to 25 mg IM today. 03/14: Yesterday as per nursing staff diphenhydramine 50 mg IM daily was wrong entered and it was 1 day 1 dose therefore it was discontinued on 03/13. 5. Type 2 diabetes mellitus: Glucose in BMP 108. Likely to go up on steroid. Accu-Chek before meals and at bedtime with Humalog sliding scale coverage and hypoglycemia protocol. 03/13: A1c 6.1%. 6. Hypertension: Blood pressure in normal range. Systolic BP in 110s to 120s. Hold antihypertensive medication. 03/13: Continue holding antihypertensive medications. 7. Possible chronic epilepsy: Patient on high dose of phenobarbital. Hold now but will reevaluate tomorrow depending on the mental status. DVT prophylaxis: High risk. Hold pharmacological prophylaxis due to concern for GI bleed. Bilateral SCDs I talked to the patient's sister who is POA. She said that she does not want intubation or ventilator shocking or CPR but okay with IV fluid, vasopressors and central line. Living will/advanced directive/end of life care: Patient does have living will or advanced directive. His sister present in ED is power of deputy commonwealth's attorney for health after discussion of benefits/risks procedures involved with full code, DNR CC arrest and DNR CC, the patient and her sister opted for DNR CC arrest with no intubation. Patient doesn't want artificial life support including intubation, tube feed, ventilator and/chest compression, central venous catheter, vasopressor and DC shock if needed Clinical Impression(s) from Imaging Studies Chest X-Ray 03/11/24 08:41 IMPRESSION: Limited inspiratory effort. Mild degree of increased markings at the lung bases suggestive of mild bibasilar atelectasis. Brain CT 03/11/24 09:15 IMPRESSION: Chronic involutional changes of the brain. Charges/Coding Visit Charges Inpatient E&M: 86791 Subs Hosp L2
--- NOTE | 2024-03-15 19:34 | PN.GI_ITS ---
Subjective Subjective Patient has been doing okay on a liquid diet. Hemoglobin is slightly down. Objective Data Objective Data Vital Signs: Vital Signs Temp Pulse Resp BP Pulse Ox O2 Del Method O2 Flow Rate 97.9 F 70 18 124/82 H 95 Room Air 2 03/15/24 16:15 03/15/24 16:15 03/15/24 16:15 03/15/24 16:15 03/15/24 16:15 03/15/24 16:15 03/15/24 08:00 FiO2 30 03/14/24 02:52 Oxygen Flow Rate (L/min) 2 Oxygen Delivery Method Room Air Weight: 302 lb 7.587 oz Body Mass Index (BMI) 53.6 Intake & Output: Intake and Output for Last 24 Hours 03/13/24 03/14/24 03/15/24 23:59 23:59 23:59 Intake Total 1161 / 1161 1230 / 1230 1194.05 / 1194.05 Output Total 800 / 800 200 / 200 800 / 800 Balance 361 / 361 1030 / 1030 394.05 / 394.05 Lab / Micro Data 03/15/24 05:05 03/15/24 05:05 Labs: Laboratory Results - last 24 hr 03/15/24 05:05: WBC 8.0, RBC 3.17 L, Hgb 9.6 L, Hct 30.5 L, MCV 96.2, MCH 30.3, MCHC 31.5 L, RDW Std Deviation 61.3 H, RDW Coeff of [place] 17.2 H, Plt Count 190, MPV 9.9, Immature Gran % (Auto) 0.800, Neut % (Auto) 63.5, Lymph % (Auto) 21.8, [place] % (Auto) 9.1, Eos % (Auto) 4.5, Baso % (Auto) 0.3, Absolute Neuts (auto) 5.1, Absolute Lymphs (auto) 1.74, Nucleated RBC % 0, Sodium 143, Potassium 3.8, Chloride 113 H, Carbon Dioxide 26.0, Anion Gap 4 L, BUN 33 H, Creatinine 0.62, Estim Creat Clear Calc 84.07, Est GFR (MDRD) Af Amer 121, Est GFR (MDRD) Non-Af 100, BUN/Creatinine Ratio 53.1 H, Glucose 97, Calcium 8.9 Micro: Microbiology 03/12/24 09:20 Blood Culture (Wb) - Right Hand Blood Culture - Preliminary No growth in 48 hours. 03/11/24 08:59 Blood Culture (Wb) - Anticubital Right Blood Culture - Preliminary No growth in 48 hours. 03/11/24 10:12 Urine, Catheterized Urine Culture - Final Proteus mirabilis 03/11/24 12:06 Urine, Clean Catch Streptococcus pneumoniae Antigen (M - Final 03/12/24 13:07 Nasal Secretion MRSA (PCR) - Final Meth. resistant Staph. aureus 03/11/24 09:01 Mucosa - Nose SARS-CoV-2, Influenza & RSV (PCR) - Final SARS-CoV-2 (COVID 19 PCR) 03/11/24 18:50 Urine, Random Legionella Antigen - Final 03/11/24 09:01 Vomitus Gastric Occult Blood - Final Physical Exam Narrative Physical exam: General: Awake. Alert, oriented x 3. HEENT: Uses hearing aid. Atraumatic, PERRLA, EOMI, Normocephalic Oral: No Gingival or Mucosal Lesions/ Ulcerations Neck: No neck rigidity. No JVD, Negative Carotid Bruits Chest wall/Lungs: Air entry diminished in bilateral lung bases. Mild basilar coarse crepitations, improving. Pulse ox: 94% on room air Cardiovascular: Sinus rhythm, heart rate controlled. Normal S1, Normal S2, systolic murmur. Abdomen: Bowel Sounds Present, Soft, Non Tender, Non-Distended : No dysuria. No renal angle tenderness. No suprapubic tenderness. Extremities: Mild chronic nonpitting edema, Capillary Refill Less than 3 Seconds Skin: No rashes, No breakdown Musculoskeletal: Bilateral TKR. Muscle rigidity improving. ROM restricted over bilateral hips and knee joints stiff. Neurological:DTR 2+/4. No acute focal neurological deficit. Psych/Mental Status: Flat affect, pressured speech. Sometimes disorganized speech and thought Assessment & Plan Assessment/Plan (1) Encephalopathy: (2) COVID-19: PLAN: Plan This is 73-year-old female is admitted from [facility] for hematemesis, change in mental status and COVID-19 infection. Patient is getting better and regarding her COVID-19 pneumonia Hematemesis: Patient is stable for EGD tomorrow. N.p.o. past midnight. Charges/Coding Visit Charges Inpatient E&M: 26812 Subs Hosp L3
[2024-03-15] MEDS: Phenobarbital 32.4 MG Tablet 178.2 MG PO (21:35)
[2024-03-15] MEDS: Latanoprost 0.005% 1 Bottle 1 DRP EACH EYE (21:35)
[2024-03-15] MEDS: PALIPERIDONE 6 MG TAB.ER.24 PO (21:36)
[2024-03-15] MEDS: Atorvastatin Calcium 20 MG Tablet PO (21:36)
[2024-03-15] MEDS: Montelukast 10 MG Tablet PO (21:36)
--- NOTE | 2024-03-15 22:22 | CPS ---
Pt refusing to wear at this time
[2024-03-15 22:53] LABS: Vancomycin, Trough Level 20.7 ug/mL (5.0-15.0)
--- NOTE | 2024-03-15 22:59 | PCM.RX.CS ---
Consult Antibiotic Management Pharmacy has been consulted to manage selected antibiotic: Vancomycin Type of Intervention Type of Consult: Follow-up Labs Labs: Sodium 143 mmol/L (136-145) 03/15/24 05:05 Potassium 3.8 mmol/L (3.5-5.1) 03/15/24 05:05 Chloride 113 mmol/L (98-107) H 03/15/24 05:05 Carbon Dioxide 26.0 mmol/L (21.0-32.0) 03/15/24 05:05 Anion Gap 4 (5-15) L 03/15/24 05:05 BUN 33 mg/dL (7-18) H 03/15/24 05:05 Creatinine 0.62 mg/dL (0.55-1.02) 03/15/24 05:05 Est GFR (MDRD) Af Amer 121 mL/min (>60) 03/15/24 05:05 Est GFR (MDRD) Non-Af 100 mL/min (>60) 03/15/24 05:05 BUN/Creatinine Ratio 53.1 RATIO (10-20) H 03/15/24 05:05 Glucose 97 mg/dL (74-106) 03/15/24 05:05 Vancomycin Trough 20.7 ug/mL (5.0-15.0) H 03/15/24 22:16 Microbiology Microbiology: Microbiology 03/12/24 09:20 Blood Culture (Wb) - Right Hand Blood Culture - Preliminary No growth in 48 hours. 03/11/24 08:59 Blood Culture (Wb) - Anticubital Right Blood Culture - Preliminary No growth in 48 hours. 03/11/24 10:12 Urine, Catheterized Urine Culture - Final Proteus mirabilis 03/11/24 12:06 Urine, Clean Catch Streptococcus pneumoniae Antigen (M - Final 03/12/24 13:07 Nasal Secretion MRSA (PCR) - Final Meth. resistant Staph. aureus 03/11/24 09:01 Mucosa - Nose SARS-CoV-2, Influenza & RSV (PCR) - Final SARS-CoV-2 (COVID 19 PCR) 03/11/24 18:50 Urine, Random Legionella Antigen - Final 03/11/24 09:01 Vomitus Gastric Occult Blood - Final Goal Trough Goal Trough: 15-20 mcg/mL Pharmacy Plan for Drug Dosing Pharmacy Plan for Drug Dosing: Pharmacy Service will continue to monitor and adjust dosing as required. TROUGH 20.7 @ 12 HOURS. HOLD DOSE AND DRAW RANDOM LEVEL IN 8 HOURS Follow-Up Labs Follow-Up Labs: Trough: Vancomycin Date/Time Labs Ordered Labs to be done on [date and time ordered]: 03/16 @ 0686
[2024-03-16] VITALS (9 sets, daily range): BP systolic 108–144; BP diastolic 65–89; PULSE 57–71; RESP 16–18; TEMP 36–36.6; O2SAT 93–97; BMI 53.6; BMI 53.7
[2024-03-16] MEDS: Pantoprazole Sodium 40 MG in 0.9% Normal Saline (100mL MB+) 100 ML 330 MG IV ×2 (00:03→15:35)
[2024-03-16 06:59] LABS: Absolute Lymphocyte Count 2.15 X10^3/uL (0.83-4.51); Absolute Neutrophil Count 3.9 X10^3/uL (2.0-7.7); Basophil# 0.01 X10^3/uL; Basophil% 0.1 % (0-1); Eosinophil# 0.39 X10^3/uL; Eosinophils% 5.4 % (0-5); Hematocrit 31.2 % (37-47); Lymphocyte # 2.15 X10^3/ul (0.83-4.51); Lymphocyte % 29.9 % (19-41); Mean Corp Hgb Conc 32.1 g/dL (32-36); Mean Corpuscular Hgb 30.8 pg (27.0-32.0); Mean Platelet Vol. 9.6 fl (6.2-12.0); Monocyte# 0.67 X10^3/uL; Monocyte% 9.3 % (0-10); NRBC Flagged by Analyzer 0 % (0-5); Neutrophil % 54.2 % (47-70); Platelet Count 180 K/mm3 (150-450); RBC Distribution Width CV 17.2 % (11.6-14.6); Red Blood Count 3.25 M/mm3 (4.2-5.4); White Blood Count 7.2 K/mm3 (4.4-11.0)
[2024-03-16] MEDS: 0.9% Saline Lock 10 ML Syringe IV (09:09)
[2024-03-16] MEDS: Ceftriaxone 1 GM/50 ML BAG IV (09:09)
[2024-03-16] MEDS: dexAMETHasone 10 MG/ML Vial 6 MG IV (09:11)
[2024-03-16] MEDS: Phenobarbital 32.4 MG Tablet 129.6 MG PO (09:13)
[2024-03-16] MEDS: Escitalopram Oxalate 10 MG Tablet PO (09:13)
--- NOTE | 2024-03-16 09:47 | CASEMGMT ---
Social Work Update sent to [facility]. Mari Gotti, SPECIAL NEEDS BABYSITTER, AUTO MECHANIC APPRENTICE
[2024-03-16 10:12] LABS: Vancomycin, Random Level 16.4 ug/mL (0.0-15.0)
[2024-03-16 10:46] LABS: Anion Gap 7 (5-15); BUN 23 mg/dL (7-18); BUN/Creat Ratio 40.4 RATIO (10-20); Calcium,Total 9.1 mg/dL (8.5-10.1); Chloride 112 mmol/L (98-107); Creatinine, Serum 0.57 mg/dL (0.55-1.02); EST Glomerular Filtration Rate 110 mL/min (>60); Est Glom Filt Rate - Afr Amer 133 mL/min (>60); Estimated Creatinine Clearance 84.19 ml/min; Glucose 97 mg/dL (74-106); Potassium 3.8 mmol/L (3.5-5.1); Sodium Level 143 mmol/L (136-145)
--- NOTE | 2024-03-16 10:46 | PHA.PHARE_ITS ---
Consult Antibiotic Management Pharmacy has been consulted to manage selected antibiotic: Vancomycin Type of Intervention Type of Consult: Follow-up Labs Labs: Sodium 143 mmol/L (136-145) 03/16/24 06:27 Potassium 3.8 mmol/L (3.5-5.1) 03/16/24 06:27 Chloride 112 mmol/L (98-107) H 03/16/24 06:27 Carbon Dioxide 25.0 mmol/L (21.0-32.0) 03/16/24 06:27 Anion Gap 7 (5-15) 03/16/24 06:27 BUN 23 mg/dL (7-18) H 03/16/24 06:27 Creatinine 0.57 mg/dL (0.55-1.02) 03/16/24 06:27 Est GFR (MDRD) Af Amer 133 mL/min (>60) 03/16/24 06:27 Est GFR (MDRD) Non-Af 110 mL/min (>60) 03/16/24 06:27 BUN/Creatinine Ratio 40.4 RATIO (10-20) H 03/16/24 06:27 Glucose 97 mg/dL (74-106) 03/16/24 06:27 Vancomycin Trough 20.7 ug/mL (5.0-15.0) H 03/15/24 22:16 Random Vancomycin 16.4 ug/mL (0.0-15.0) H 03/16/24 06:27 Microbiology Microbiology: Microbiology 03/11/24 08:59 Blood Culture (Wb) - Anticubital Right Blood Culture - Final No growth in 5 days. 03/12/24 09:20 Blood Culture (Wb) - Right Hand Blood Culture - Preliminary No growth in 48 hours. 03/11/24 10:12 Urine, Catheterized Urine Culture - Final Proteus mirabilis 03/11/24 12:06 Urine, Clean Catch Streptococcus pneumoniae Antigen (M - Final 03/12/24 13:07 Nasal Secretion MRSA (PCR) - Final Meth. resistant Staph. aureus 03/11/24 09:01 Mucosa - Nose SARS-CoV-2, Influenza & RSV (PCR) - Final SARS-CoV-2 (COVID 19 PCR) 03/11/24 18:50 Urine, Random Legionella Antigen - Final 03/11/24 09:01 Vomitus Gastric Occult Blood - Final Goal Trough Goal Trough: 15-20 mcg/mL Pharmacy Plan for Drug Dosing Pharmacy Plan for Drug Dosing: VANCOMYCIN LEVEL RECEIVED Current Vancomycin Dose: ON HOLD- Previously on 1000mg IV Q12hr Number of Doses Received: x6 doses previously Vancomycin Level: 16.4 Hours Since Last Dose: 20hr Renal Function: 0.62 Renal Function Trend: stable Lab/Micro: Cx showing MRSA Vancomycin Plan/Comments: patient had a random trough drawn which resulted in a value of 16.4 (goal 15-20). Patient is now within the therapeutic window, will restart vancomycin at this time. Will start the patient on vancomycin 1250mg IV Q24hr to start 03/16/24 @1100. This will give a predicted trough value of 16.2 per [facility] ED calculations. Pending Level: 03/18/24 @1030, prior to 3rd dose of new regimen. Pharmacy Service will continue to monitor and adjust dosing as required.
[2024-03-16] MEDS: Vancomycin HCl 1,250 MG in 0.9% Normal Saline (250mL Bag) 250 ML 167 MG IV (11:42)
--- NOTE | 2024-03-16 13:30 | EGD_PTH ---
PATIENT: SIERRA MORRISON LOC: [facility] U#:[id number] AGE/SX: 73/F ROOM: [facility] RE03/11/[address]: Dr. Luis Hernández MD : 1950 BED: 1 DIS: 03/16/2024 SPEC #: [id number] RECD: 03/17/24 09:21 STATUS: NASIMA REQ #: [id number] EUSEBIO: 03/16/24 13:[address]: Luis Hernández DEPT: SURGICAL PATHOLOGY RECD BY: Babs Jacobs ENTERED: 03/17/24 10:58 SP TYPE: EGD BIOPSY OTHR DR: MD Dr. Robin Mars MD Dr. Amy S Jolliff, MD Dr. Adan Mora, MD Dr. Alicia Zha, MD Danielle Becker, MD Dr. Derek Brown DO MD Dr. Cuong Lima MD Dr. Gautam Baskaran, MD Dr. Yordanos Habtegebriel, MD Dr. Hemant Dand, MD Jesse Mindel, MD Dr. León Melchor Dr., MD Jaysingh Singh, MD Dr. Kimber Foust, MD Dr. Lamia Aljundi, MD LEBRON PAIGE, MD Margaret Beigel, MD Dr. Maryam Mian, MD Nabil Khandker, MD Dr. Prakash Chand, MD Dr. Pritam Ghosh, MD Dr. Pavan Irukulla, MD Dr. Robert Leininger, MD Dr. Saad Farooqi, MD Dr. Sujoy Gill, MD Sarita Maturu, MD Dr. Vikram Anand, MD Dr. Percy Renny, MD Tissues: Gastric mucous membrane Procedures: Surgery Specimen Level IV HEADER OPERATION: EGD biopsy PRE-OP DIAGNOSIS: Hematemesis TISSUE SUBMITTED: Gastric ulcer biopsy MICROSCOPIC DIAGNOSIS Gastric ulcer, biopsy: Mild chronic inflammation. See comment. 03/18/2024 COMMENT The results of immunohistochemistry for Helicobacter pylori will be reported separately ([id number]). MICROSCOPIC DESCRIPTION Slides are reviewed. GROSS DESCRIPTION Received in fixative is one container labeled with the patient's name and designated Gastric ulcer biopsy. The specimen consists of two irregular fragments of light hdz soft tissue that in aggregate measure 0.6 x 0.3 x 0.1 cm. The specimen is totally submitted in one cassette. 03/17/2024 TC:3 CPT:68945
--- NOTE | 2024-03-16 13:30 | IMM_PTH ---
PATIENT: SIERRA MORRISON LOC: [facility] U#:[id number] AGE/SX: 73/F ROOM: [facility] RE03/11/[address]: Dr. Luis Hernández MD : 1950 BED: 1 DIS: 03/16/2024 SPEC #: [id number] RECD: 03/17/24 10:10 STATUS: NASIMA REQ #: [id number] EUSEBIO: 03/16/24 13:[address]: Austen Church DEPT: IMMUNOHISTOCHEMISTRY RECD BY: Garret Calles ENTERED: 03/17/24 10:11 SP TYPE: IMMUNO OTHR DR: MD Dr. Robin Mars MD Dr. Amy S Jolliff, MD Dr. Adan Mora, MD Dr. Alicia Zha, MD Danielle Becker, MD Dr. Derek Brown, DO Dr. David P Myers, MD Dr. Edward Matheis, MD Dr. Gautam Baskaran, MD Dr. Yordanos Habtegebriel, MD Dr. Hemant Dand, MD Jesse Mindel, MD Dr. León Melchor Dr., MD Jaysingh Singh, MD Dr. Kimber Foust, MD Dr. Lamia Aljundi, MD LEBRON PAIGE, MD Margaret Beigel, MD Dr. Maryam Mian, MD Nabil Khandker, MD Dr. Nicholas F Kotsonis, MD Dr. Prakash Chand, MD Dr. Pritam Ghosh, MD Dr. Pavan Irukulla, MD Dr. Robert Leininger, MD Dr. Saad Farooqi, MD Dr. Sujoy Gill, MD Sarita Maturu, MD Dr. Vikram Anand, MD Dr. Percy Renny, MD Tissues: Gastric mucous membrane Procedures: H Pylori (initial) PHYSICIAN & INSTITUTION [place] [address] SPECIMEN INFORMATION: Tissue Source: Gastric ulcer biopsy Clinical Info: Hematemesis Specimen Number: [id number] CPT code: 83982 METHODOLOGY: Deparaffinized sections of prefer/formalin-fixed tissue or PAP/DQ stained slides are incubated with monoclonal/polyclonal antibodies/oligonucleotide probes. Localization is made via biotin free immunoperoxidase method. Appropriate controls are performed and reacted as expected. Results on target cell population are indicated in the following table: RESULTS: ANTIBODY / CLONE RESULT H Pylori (polyclonal) negative These tests were developed and their performance characteristics determined by [facility]. They may not have been cleared or approved by the U.S. Food and Drug Administration. The FDA has determined that such clearance or approval is not necessary. The above immunohistochemical/dualISH markers are ordered and reviewed by the Pathologist. INTERPRETATION: Gastric ulcer, biopsy: Negative for Helicobacter pylori organisms. AM 03/19/2024
--- NOTE | 2024-03-16 14:09 | PRE.ANES_ITS ---
ASA Classification* ASA Classification ASA Classification: 3 and E (COVID+) Assessment & Plan Anesthesia* Anesthesia Assessment Anesthesia Assessment: Discussed sedation and/or anesthesia options, risks, benefits, and alternatives with patient/parents/legal guardian/POA. Questions invited. The patient/parents/legal guardian/POA seems to understand and agrees to proceed with anesthesia plan. Reviewed the physical assessment, medical history, allergy history and patient home medications list prior to surgery/procedure/anesthetic and documented any changes. Performed airway and anesthesia risk assessments. Anesthesia Type Anesthesia Type: MAC History Source History Obtained from:: Patient and Chart Anesthesia Focused Assessment* Temperature: 96.8 F Pulse Rate: 67 Blood Pressure: 118/65 Respiratory Rate: 18 Pulse Ox: 95 Fraction of Inspired Oxygen (FIO2): 30 Airway Assessment Mouth opens: >3 cm Mallampati Score: II Teeth Condition: Dentures (upper and lower, removed for procedure) Focused Labs Anesthesia Preop lab: CBC WBC 7.2 K/mm3 (4.4-11.0) 03/16/24 06:27 RBC 3.25 M/mm3 (4.2-5.4) L 03/16/24 06:27 Hgb 10.0 g/dL (12.0-15.0) L 03/16/24 06:27 Hct 31.2 % (37-47) L 03/16/24 06:27 Plt Count 180 K/mm3 (150-450) 03/16/24 06:27 CHEMISTRY Potassium 3.8 mmol/L (3.5-5.1) 03/16/24 06:27 Sodium 143 mmol/L (136-145) 03/16/24 06:27 Magnesium 1.9 mg/dL (1.6-2.6) 03/11/24 08:59 BUN 23 mg/dL (7-18) H 03/16/24 06:27 Creatinine 0.57 mg/dL (0.55-1.02) 03/16/24 06:27 Glucose 97 mg/dL (74-106) 03/16/24 06:27 POC Glucose 140 mg/dL (74-106) H 03/12/24 06:41 TSH 0.431 uIU/mL (0.358-3.740) 03/12/24 05:19 COAG PT 16.5 SECONDS (11.7-14.9) H 03/12/24 05:19 Pre-Assessment Diagnosis/Proposed Procedure Planned Operative Procedure(s): EGD with bx's Anesthesia History Anesthesia History - cd storage and materials make up helper: Anesthesia History - cd storage and materials make up helper Hx Hospitalization No 12/16/20 12:53 Any Problems With Anesthesia No 03/15/24 22:54 Cholinesterase deficiency No 03/15/24 22:54 You/Your Family Experience No 03/15/24 22:54 fever (hyperthermia) with Relationship Recent Exposure to Contagious No 03/15/24 22:54 Disease Does patient have nerve No 03/15/24 22:54 stimulator Patient instructed to have No 03/15/24 22:54 device shut off --Does patient have Pacemaker No 03/16/24 11:49 or ICD? When Was Last Pacemaker Check QUESTION #4 FULL TEXT: You/Your Family Experience fever (hyperthermia) with Anesthesia Last Oral Intake Last Oral intake: Last Oral Intake NPO since 00:01 03/16/24 11:49 Meds taken in AM with sips of Yes 03/16/24 11:49 water? Meds patient instructed to phenobarb 03/16/24 11:49 take am of surgery lexapro decadron IV PONV PONV - cd storage and materials make up helper: PONV - cd storage and materials make up helper Female HX of Motion Sickness HX of N/V After Surgery Non-Smoker Duration of Surgery greater than 60 minutes Number of Risk Factors PONV Score Height & Weight Height & Weight: Anesthesia: Height & Weight Height 5 ft 2.99 in 03/16/24 11:49 Weight: 137.5 kg 03/16/24 11:49 Body Mass Index (BMI) 53.7 03/16/24 11:49 Respiratory Assessment Respiratory Assessment - cd storage and materials make up helper: Respiratory Tract Infection Hx - cd storage and materials make up helper Hx Respiratory Tract Infection No 03/15/24 22:54 STOP Sleep Apnea STOP Sleep Apnea - cd storage and materials make up helper: STOP Sleep Apnea - cd storage and materials make up helper Hx Hypertension Yes 03/14/24 10:38 Hx Sleep Apnea Yes 03/11/24 12:05 CPAP Yes: . 03/11/24 12:05 BIPAP No 03/11/24 12:05 Do you snore loudly (louder than talking or can be heard Do you often feel tired/ fatigued/ sleepy during daytime? Has anyone observed you stop breathing during sleep? STOP Results Positive 03/11/24 12:05 QUESTION #5 FULL TEXT : Do you snore loudly (louder than talking or can be heard through closed doors)? 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 Specify any problems Hx of Preganancy in last 3 Months Nurse Filling Out Transfusion & Questions: Date: Time: Patient unable to answer at Yes 03/11/24 12:05 this time (ie. confused, unrespo /Reproduction History /Reproductive History - cd storage and materials make up helper: /Reproductive Hx- cd storage and materials make up helper Hx Now No 03/15/24 22:54 Gestational Age (in weeks): EDC: Hx Hx Para Hx Section SAB No 03/15/24 22:54 Active Medications Active Medications: Current Medications Generic Name Dose Route Start Last Admin Trade Name Freq PRN Reason Stop Dose Admin Acetaminophen 1,000 mg 03/11/24 22:00 03/16/24 09:09 Acetaminophen 500 Mg Tablet PO Not Given BID JEFFREY Acetaminophen 650 mg 03/11/24 20:02 03/12/24 08:31 Acetaminophen 650 Mg Suppository RC 650 mg Q4H PRN PRN Administration Fever, pain 1-10 w/ NPO Atorvastatin Calcium 20 mg 03/11/24 22:00 03/15/24 21:36 Atorvastatin Calcium 20 Mg Tablet PO 20 mg QHS JEFFREY Administration Budesonide 0.5 mg 03/11/24 12:30 03/15/24 22:19 Budesonide Respules 0.5 Mg/2 Ml Ampul.Neb. INHALATION 0.5 mg Q12H.RT JEFFREY Administration Cholecalciferol 50 mcg 03/12/24 10:00 03/16/24 09:09 Cholecalciferol (Vit D3) 25 Mcg Tablet (1,000 Units) PO Not Given DAILY [facility] Dexamethasone Sodium Phosphate 6 mg 03/11/24 13:30 03/16/24 09:11 Dexamethasone 10 Mg/Ml Vial IV 6 mg DAILY JEFFREY Administration Escitalopram Oxalate 10 mg 03/14/24 10:00 03/16/24 09:13 Escitalopram Oxalate 10 Mg Tablet PO 10 mg DAILY JEFFREY Administration Glycerin/Hypromellose/Polyethylene 1 drp 03/11/24 13:25 Glycerin/Hypromellose/Lni518 15 Ml Bottle OPHTHALMIC Q4H PRN dry eye(s) Pantoprazole Sodium 40 mg/ 110 mls @ 330 mls/hr 03/11/24 13:00 03/16/24 01:54 Sodium Chloride IV Infused Q12H JEFFREY Infusion Ceftriaxone Sodium 1 gm in 50 mls @ 100 mls/hr 03/16/24 10:00 03/16/24 11:52 Rocephin IV Infused Q24 JEFFREY Infusion Latanoprost 1 drp 03/11/24 22:00 03/15/24 21:35 Latanoprost 0.005% 1 Bottle EACH EYE 1 drp QHS JEFFREY Administration Levothyroxine Sodium 200 mcg 03/12/24 06:00 03/15/24 18:58 Levothyroxine 100 Mcg Tablet PO Not Given DAILY@0600 [facility] Loratadine 10 mg 03/12/24 10:00 03/16/24 09:09 Loratadine 10 Mg Tablet PO Not Given DAILY [facility] Montelukast Sodium 10 mg 03/11/24 22:00 03/15/24 21:36 Montelukast 10 Mg Tablet PO 10 mg QHS JEFFERY Administration Paliperidone 6 mg 03/13/24 22:00 03/15/24 21:36 Paliperidone 6 Mg Tab.Er.24 PO 6 mg QHS JEFFREY Administration Phenobarbital 129.6 mg 03/14/24 10:00 03/16/24 09:13 Phenobarbital 32.4 Mg Tablet PO 129.6 mg DAILY JEFFREY Administration Phenobarbital 178.2 mg 03/14/24 22:00 03/15/24 21:35 Phenobarbital 32.4 Mg Tablet PO 178.2 mg SuMoWeThSa@2200 JEFFREY Administration Phenobarbital 64.8 mg 03/13/24 22:00 03/13/24 20:55 Phenobarbital 32.4 Mg Tablet PO 64.8 mg TuFr@2200 JEFFREY Administration Polyethylene Glycol 17 gm 03/11/24 13:22 Polyethylene Glycol 3350 17 Gm Packet PO DAILY PRN CONSTIPATION Quetiapine Fumarate 25 mg 03/13/24 14:00 03/15/24 18:58 Quetiapine 25 Mg Tablet PO Not Given BID@0600,1400 [facility] Protocol Quetiapine Fumarate 50 mg 03/13/24 14:00 03/15/24 21:36 Quetiapine 25 Mg Tablet PO 50 mg TID JEFFREY Administration Protocol Sodium Chloride 10 - 40 ml 03/11/24 14:38 03/16/24 09:09 0.9% Saline Lock 10 Ml Syringe IV 10 ml UD PRN Administration SALINE FLUSH [facility] Medical History Epilepsy Hammer toes of both feet Cerebrovascular disease Age related cataract Wears glasses Wears hearing aid Rash Walker as ambulation aid Easy bruising History of diverticulitis Gastric reflux Non-smoker Shortness of breath on exertion Vericose veins History of CVA (cerebrovascular accident) Seizure disorder Thyroid disorder Rheumatoid arthritis Diverticulitis Sleep apnea COPD (chronic obstructive pulmonary disease) Diabetes mellitus type 2 in obese Benign essential hypertension Convulsion Osteoarthritis Hypothyroid TIA (transient ischemic attack) Hypercholesterolemia Anemia in chronic illness Allergic rhinitis Glaucoma Morbid obesity Peripheral venous insufficiency GERD (gastroesophageal reflux disease) Asthma Schizophrenia Depression Anxiety disorder Hyperlipidemia Hypertension Home Medications ?Medication ?Instructions ?Recorded ?Last Taken ?Type clopidogrel 75 mg tablet 75 mg PO DAILY 03/28/13 03/10/24 History hydrochlorothiazide 25 mg tablet 25 mg PO DAILY ##0 03/28/13 03/10/24 History metoprolol succinate 100 mg 100 mg PO DAILY 03/28/13 12/19/20 History tablet,extended release 24 hr paliperidone 6 mg tablet,extended 6 mg PO QHS 01/31/17 03/10/24 History release 24 hr albuterol sulfate 90 mcg/actuation 2 puff inhalation Q6H PRN 08/10/22 Unknown Rx aerosol inhaler shortness of breath or wheezing #8.5 grams montelukast 10 mg tablet 10 mg PO QHS #90 tabs 12/03/22 03/10/24 Rx albuterol sulfate 2.5 mg/3 mL 2.5 mg inhalation DAILY PRN 11/27/23 Unknown History (0.083 %) solution for nebulization shortness of breath or wheezing atorvastatin 20 mg tablet 20 mg PO QDAY 11/27/23 03/11/24 History clonazepam 0.5 mg tablet 0.5 mg PO TID 11/27/23 03/10/24 History famotidine 10 mg tablet (Pepcid AC) 20 mg PO BID PRN heartburn 11/27/23 Unknown History fluticasone propionate 220 2 inh inhalation BID 11/27/23 03/10/24 History mcg/actuation HFA aerosol inhaler latanoprost 0.005 % eye drops 1 drp ophthalmic (eye) QHS 11/27/23 03/10/24 History loratadine 10 mg tablet 10 mg PO DAILY 11/27/23 03/10/24 History losartan 50 mg tablet 50 mg PO QDAY 11/27/23 03/10/24 History phenobarbital 60 mg tablet 120 mg PO 0800 11/27/23 Unknown History phenobarbital 60 mg tablet 180 mg PO SUMOWETHSA seizures 11/27/23 Unknown History polyethylene glycol 3350 17 17 g PO DAILY PRN CONSTIPATION 11/27/23 03/10/24 History gram/dose oral powder (Miralax) propylene glycol 1 %-glycerin 0.3 1 drp ophthalmic (eye) Q4H PRN dry 11/27/23 Unknown History % eye drops (Artificial Tears eye(s) (glycerin-peg)) acetaminophen 500 mg tablet 1,000 mg PO BID 03/11/24 03/10/24 History cholecalciferol (vitamin D3) 25 50 mcg PO DAILY 03/11/24 Unknown History mcg (1,000 unit) tablet diphenhydramine HCl 50 mg/mL 50 mg IM X1 DISTONIA 03/11/24 03/10/24 History injection solution levothyroxine 200 mcg tablet 200 mcg PO DAILY 03/11/24 03/10/24 History nifedipine 90 mg tablet,extended 90 mg PO DAILY 03/11/24 03/10/24 History release phenobarbital 60 mg tablet 60 mg PO TUFR seizures 03/11/24 03/10/24 History quetiapine 25 mg tablet 25 mg PO BID PSYCHOSIS 03/11/24 Unknown History quetiapine 50 mg tablet 50 mg PO TID AGGITATION 03/11/24 03/10/24 History Allergy/AdvReac Type Severity Reaction Status Date / Time amoxicillin Allergy NEEDS Verified 03/11/24 08:36 FOLLOW-UP codeine Allergy Shortness Verified 03/11/24 08:36 of breath cyclobenzaprine (From Allergy NEEDS Verified 03/11/24 08:36 Flexeril) FOLLOW-UP dextromethorphan HBr (From Allergy Shortness Verified 03/11/24 08:36 Tylenol Cold Multi-Symptom) of breath diazepam (From Valium) Allergy Shortness Verified 03/11/24 08:36 of breath fluticasone (From Advair Allergy NEEDS Verified 03/11/24 08:36 Diskus) FOLLOW-UP Food Allergies: Uncoded Allergy Shortness Verified 03/11/24 08:36 of breath guaifenesin (From Tylenol Allergy Shortness Verified 03/11/24 08:36 Cold Multi-Symptom) of breath hydrocodone bitartrate (From Allergy Shortness Verified 03/11/24 08:36 Vicodin) of breath iodine Allergy Anaphylaxis Verified 03/11/24 08:36 Latex, Natural Rubber Allergy Shortness Verified 03/11/24 08:36 of breath morphine Allergy Shortness Verified 03/11/24 08:36 of breath NSAIDS (Non-Steroidal Allergy Shortness Verified 03/11/24 08:36 Anti-Inflamma of breath oxaprozin (From Daypro) Allergy NEEDS Verified 03/11/24 08:36 FOLLOW-UP oxycodone Allergy NEEDS Verified 03/11/24 08:36 FOLLOW-UP phenylephrine HCl (From Allergy Shortness Verified 03/11/24 08:36 Tylenol Cold Multi-Symptom) of breath phenytoin (From Dilantin) Allergy NEEDS Verified 03/11/24 08:36 FOLLOW-UP phenytoin sodium (From Allergy Shortness Verified 03/11/24 08:36 Dilantin) of breath phenytoin sodium extended Allergy Shortness Verified 03/11/24 08:36 (From Dilantin) of breath povidone-iodine (From Allergy BLISTERS Verified 03/11/24 08:36 Betadine) pseudoephedrine HCl (From Allergy Shortness Verified 03/11/24 08:36 Tylenol Cold Multi-Symptom) of breath salmeterol (From Advair Allergy NEEDS Verified 03/11/24 08:36 Diskus) FOLLOW-UP shellfish derived Allergy NEEDS Verified 03/11/24 08:36 FOLLOW-UP soap (From Betadine) Allergy BLISTERS Verified 03/11/24 08:36 tetracycline Allergy NEEDS Verified 03/11/24 08:36 FOLLOW-UP tositumomab iodine-131 Allergy NEEDS Verified 03/11/24 08:36 FOLLOW-UP muscle relaxers Allergy Shortness Uncoded 05/22/23 11:04 of breath Family History Other Arthritis CVA (cerebral vascular accident) Cancer Depression Diabetes Emphysema lung Hypertension Surgical History History of cholecystectomy History of tonsillectomy History of total hysterectomy History of total knee replacement History of bilateral tympanoplasty History of tubal ligation History of D&C Social History Smoking Status: Never smoker second hand exposure: Yes alcohol intake: never substance use type: does not use what type of physical activity do you participate in: walking do you feel safe at home: Yes Review of Systems (Anesthesia) ROS Narrative System reviewed and no additional complaints, except as documented.
--- NOTE | 2024-03-16 14:17 | OP.EGD_ITS ---
Patient Name: Adrienne Garcia Procedure Date: 03/16/2024 1:58 PM Date of : 1950 Age: 73 Procedure: Upper GI endoscopy Indications: Hematemesis Providers: Austen Church DO Medicines: Monitored Anesthesia Care Patient Profile: This is a 73 year old female. Refer to note in patient chart for documentation of history and physical. Patient has symptoms. Complications: No immediate complications. Procedure: Pre-Anesthesia Assessment: - Prior to the procedure, a History and Physical was performed, and patient medications and allergies were reviewed. The patient is competent. The risks and benefits of the procedure and the sedation options and risks were discussed with the patient. All questions were answered and informed consent was obtained. Patient identification and proposed procedure were verified by the physician in the pre-procedure area. Mental Status Examination: alert and oriented. Airway Examination: normal oropharyngeal airway and neck mobility. Respiratory Examination: clear to auscultation. CV Examination: normal. Prophylactic Antibiotics: The patient does not require prophylactic antibiotics. Prior Anticoagulants: The patient has taken no anticoagulant or antiplatelet agents except for NSAID medication. ASA Grade Assessment: II - A patient with mild systemic disease. After reviewing the risks and benefits, the patient was deemed in satisfactory condition to undergo the procedure. The anesthesia plan was to use monitored anesthesia care (MAC). Immediately prior to administration of medications, the patient was re-assessed for adequacy to receive sedatives. The heart rate, respiratory rate, oxygen saturations, blood pressure, adequacy of pulmonary ventilation, and response to care were monitored throughout the procedure. The physical status of the patient was re-assessed after the procedure. After obtaining informed consent, the endoscope was passed under direct vision. Throughout the procedure, the patient's blood pressure, pulse, and oxygen saturations were monitored continuously. The Endoscope was introduced through the mouth, and advanced to the second part of duodenum. The upper GI endoscopy was accomplished without difficulty. The patient tolerated the procedure well. Scope In: 2:04:02 PM Scope Out: 2:06:00 PM Total Procedure Duration Time 0 hours 1 minute 58 seconds Findings: LA Grade A (one or more mucosal breaks less than 5 mm, not extending between tops of 2 mucosal folds) esophagitis with no bleeding was found 34 to 39 cm from the incisors. A small hiatal hernia was present. Three non-bleeding linear gastric ulcers with no stigmata of bleeding were found at the incisura. The largest lesion was 6 mm in largest dimension. Biopsies were taken with a cold forceps for histology. Verification of patient identification for the specimen was done. Estimated blood loss was minimal. Biopsies were taken with a cold forceps for Helicobacter pylori testing. Verification of patient identification for the specimen was done. Estimated blood loss was minimal. Localized mild inflammation characterized by congestion (edema) and erosions was found in the duodenal bulb. Impression: - LA Grade A erosive esophagitis with no bleeding. - Small hiatal hernia. - Non-bleeding gastric ulcers with no stigmata of bleeding. Biopsied. - Duodenitis. Recommendation: - Return patient to hospital may for ongoing care. - Resume regular diet. - Continue present medications. - Await pathology results. - Use Protonix (pantoprazole) 40 mg PO BID for 12 days. Procedure Code(s): --- Professional --- 40669, Esophagogastroduodenoscopy, flexible, transoral; with biopsy, single or multiple CPT copyright 2021 [employer]. All rights reserved. The codes documented in this report are preliminary and upon acid remover review may be revised to meet current compliance requirements. Austen Church DO 03/16/2024 2:17:28 PM This report has been signed electronically. Number of Addenda: 0 Note Initiated On: 03/16/2024 1:58 PM
--- NOTE | 2024-03-16 14:17 | OP.CCLET_ITS ---
03/16/2024 Richa Daniels [address] [place] [address] Re : Upper GI endoscopy procedure for Adrienne Radha Dear Dr. Daniels This procedure was performed on Saturday, March 16, 2024. My impressions and recommendations are as follows: Impressions : - LA Grade A erosive esophagitis with no bleeding. - Small hiatal hernia. - Non-bleeding gastric ulcers with no stigmata of bleeding. Biopsied. - Duodenitis. Recommendations : - Return patient to hospital may for ongoing care. - Resume regular diet. - Continue present medications. - Await pathology results. - Use Protonix (pantoprazole) 40 mg PO BID for 12 days. My findings are described in the full procedure note, which is enclosed. If I can be of further assistance, please feel free to contact me at . Sincerely, Austen Church, 03/16/2024 2:17:28 PM This report has been signed electronically.
--- NOTE | 2024-03-16 14:32 | PCM.POST.ANE ---
Anesthesia: Postop Eval I Current Vital Signs Temperature: 97.2 F Pulse Rate: 71 Blood Pressure: 141/89 Respiratory Rate: 16 Pulse Ox: 97 Oxygen Delivery Method: Nasal Cannula Oxygen Flow Rate (L/min): 2 Assessment Airway patent: Yes Spontaneous unlabored respirations: Yes Mental status: Awake and Calm nausea: No Vomiting: No Anesthesia Complication: No Fluid Hydration Crystalloid volume administer (ml): 40 Total IV fluid infused: 40 Progress Note Anesthesia document: Postop Eval 1 completed: Yes
--- NOTE | 2024-03-16 15:25 | PCM.TXEXTCAR ---
Diet Diet Order/Speech Therapy: 03/16/24 00:01 NPO [Diet: Nothing Per Oral] Diet Comments: SHELLFISH allergy;Extra sauce,Direct sup/Assist,liquids by straw,slow rate Routine Orders/Code Status Routine Lab Work: CBC and BMP Code Status: DNRCC-A Therapies Physical Therapy: Eval and Treat Occupational Therapy: Eval and Treat Problem/Diagnosis (1) Encephalopathy: Status: Acute Code(s): G93.40 - Encephalopathy, unspecified (2) COVID-19: Status: Acute Code(s): U07.1 - COVID-19 Allergies/Procedures Done in Hospital Allergies amoxicillin Allergy (Verified 03/11/24 08:36) NEEDS FOLLOW-UP codeine Allergy (Verified 03/11/24 08:36) Shortness of breath cyclobenzaprine (From Flexeril) Allergy (Verified 03/11/24 08:36) NEEDS FOLLOW-UP dextromethorphan HBr (From Tylenol Cold Multi-Symptom) Allergy (Verified 03/11/24 08:36) Shortness of breath diazepam (From Valium) Allergy (Verified 03/11/24 08:36) Shortness of breath fluticasone (From Advair Diskus) Allergy (Verified 03/11/24 08:36) NEEDS FOLLOW-UP Food Allergies: Uncoded Allergy (Verified 03/11/24 08:36) Shortness of breath banana peels, passion fruit guaifenesin (From Tylenol Cold Multi-Symptom) Allergy (Verified 03/11/24 08:36) Shortness of breath hydrocodone bitartrate (From Vicodin) Allergy (Verified 03/11/24 08:36) Shortness of breath iodine Allergy (Verified 03/11/24 08:36) Anaphylaxis Latex, Natural Rubber Allergy (Verified 03/11/24 08:36) Shortness of breath morphine Allergy (Verified 03/11/24 08:36) Shortness of breath NSAIDS (Non-Steroidal Anti-Inflamma Allergy (Verified 03/11/24 08:36) Shortness of breath oxaprozin (From Daypro) Allergy (Verified 03/11/24 08:36) NEEDS FOLLOW-UP oxycodone Allergy (Verified 03/11/24 08:36) NEEDS FOLLOW-UP phenylephrine HCl (From Tylenol Cold Multi-Symptom) Allergy (Verified 03/11/24 08:36) Shortness of breath phenytoin (From Dilantin) Allergy (Verified 03/11/24 08:36) NEEDS FOLLOW-UP phenytoin sodium (From Dilantin) Allergy (Verified 03/11/24 08:36) Shortness of breath phenytoin sodium extended (From Dilantin) Allergy (Verified 03/11/24 08:36) Shortness of breath povidone-iodine (From Betadine) Allergy (Verified 03/11/24 08:36) BLISTERS pseudoephedrine HCl (From Tylenol Cold Multi-Symptom) Allergy (Verified 03/11/24 08:36) Shortness of breath salmeterol (From Advair Diskus) Allergy (Verified 03/11/24 08:36) NEEDS FOLLOW-UP shellfish derived Allergy (Verified 03/11/24 08:36) NEEDS FOLLOW-UP soap (From Betadine) Allergy (Verified 03/11/24 08:36) BLISTERS tetracycline Allergy (Verified 03/11/24 08:36) NEEDS FOLLOW-UP tositumomab iodine-131 Allergy (Verified 03/11/24 08:36) NEEDS FOLLOW-UP muscle relaxers Allergy (Uncoded 05/22/23 11:04) Shortness of breath Procedures: EGD Type of Care/Length of Stay Estimated LOS: More Than 30 Days Type of Care Needed: Intermediate Rehab Potential: Fair Prognosis: Fair Additional Orders/Day of Discharge Day of Discharge: 03/16/24 Dietary and Speech Recommendations Dietitian Recommendations/Changes: Recommend diet as tolerated cardiac, consistent carb/1800 calorie controlled, per PASSENGER SERVICE AGENT consistency/texture recommendations. Will monitor for changes in pt nutritional status and make additional rec as indicated. Reviewed and approved by Shantelle Flaherty, RD, LD. Discharge Plan Admission Admit Date/Time: 03/11/24 11:09 Attending Provider: Luis Hernández Primary Care Provider: Richa Daniels Consulting Providers: Colt Nascimento; Hoa Jacobson; Kaden Lee; Trish Agustin; Autumn Astorga; Noble Callejas; Robin Birch; Silverio Donohue; Teddy Saldana; Lc Cazares; Cuong Weathers; Renny Smith; Frieda Luna; Camilo Mena; León Bhatt; Sherri Bartholomew; Gildardo Vora; Marek Tiwari; Devan Colbert; Rebel Madera; Nancy Albert; Rico Dent; Percy Lawson; Nilda Palma; Hansel Spears; Dom Morley; REANNA SIDHU; Jaciel Browne; Macrina Tay; Peng Fong Discharge Orders/Prescriptions Prescriptions: New escitalopram oxalate 10 mg Tablet 10 mg PO DAILY Qty: 0 0RF dexamethasone 6 mg tablet 6 mg PO DAILY Qty: 4 0RF cefdinir 300 mg capsule 300 mg PO BID 5 Days Qty: 10 0RF pantoprazole [Protonix] 40 mg tablet,delayed release (DR/EC) 40 mg PO DAILY Qty: 30 0RF Rx Instructions: take BID for 14 days then transition to daily dosing Continued albuterol sulfate 2.5 mg /3 mL (0.083 %) solution for nebulization 2.5 mg inhalation DAILY PRN (Reason: shortness of breath or wheezing) Artificial Tears(glycerin-peg) 1-0.3 % drops 1 drp ophthalmic (eye) Q4H PRN (Reason: dry eye(s)) atorvastatin 20 mg tablet 20 mg PO QDAY clonazepam 0.5 mg tablet 0.5 mg PO TID fluticasone propionate 220 mcg/actuation HFA aerosol inhaler 2 inh inhalation BID loratadine 10 mg tablet 10 mg PO DAILY losartan 50 mg tablet 50 mg PO QDAY polyethylene glycol 3350 [Miralax] 17 gram/dose powder 17 g PO DAILY PRN (Reason: CONSTIPATION ) latanoprost 0.005 % drops 1 drp ophthalmic (eye) QHS clopidogrel 75 MG tablet 75 mg PO DAILY metoprolol succinate 100 MG tablet 100 mg PO DAILY hydrochlorothiazide 25 MG tablet 25 mg PO DAILY Qty: 0 phenobarbital 60 mg tablet 120 mg PO 0800 Patient Comments: PT TAKES 2 60MG TABS (120MG) EVERY MORNING. TAKES 3 TABS (180MG) EVERY SUN, MON, WED, THURS, SAT AT BEDTIME. TAKES 1 TAB (60MG) EVERY TUES AND FRI AT BEDTIME. phenobarbital 60 mg tablet 180 mg PO SUMOWETHSA Patient Comments: PT TAKES 2 60MG TABS (120MG) EVERY MORNING. TAKES 3 TABS (180MG) EVERY SUN, SAT, SAT, , SAT AT BEDTIME. TAKES 1 TAB (60MG) EVERY TUES AND FRI AT BEDTIME. Rx Instructions: GIVE AT BEDTIME paliperidone 6 MG tablet 6 mg PO QHS acetaminophen 500 mg tablet 1,000 mg PO BID diphenhydramine HCl 50 mg/mL solution 50 mg IM X1 levothyroxine 200 mcg tablet 200 mcg PO DAILY nifedipine 90 mg tablet extended release 90 mg PO DAILY phenobarbital 60 mg tablet 60 mg PO TU Patient Comments: PT TAKES 2 60MG TABS (120MG) EVERY MORNING. TAKES 3 TABS (180MG) EVERY SUN, SAT, SAT, , SAT AT BEDTIME. TAKES 1 TAB (60MG) EVERY TUES AND FRI AT BEDTIME. quetiapine 50 mg tablet 50 mg PO TID quetiapine 25 mg tablet 25 mg PO BID Patient Comments: PT TAKES 50MG AND 25MG (75MG) TABS IN AM, 50MG AND 25 MG (75MG) IN THE AFTERNOON, AND 50MG TAB IN THE EVENING. Rx Instructions: GIVE WITH 50MG TAB TO EQUAL TOTAL DOSE OF 75MG. cholecalciferol (vitamin D3) 25 mcg (1,000 unit) tablet 50 mcg PO DAILY albuterol sulfate 90 mcg/actuation HFA aerosol inhaler 2 puff inhalation Q6H PRN (Reason: shortness of breath or wheezing) Qty: 8.5 2RF montelukast 10 mg tablet 10 mg PO QHS Qty: 90 3RF Discontinued famotidine [Pepcid AC] 10 mg tablet 20 mg PO BID PRN (Reason: heartburn) Referrals / Follow Up: Richa Daniels MD [Primary Care Provider] - Disposition Disposition (needs filled in before D/C Order can be placed): [facility]
[2024-03-16] MEDS: QUEtiapine 25 MG Tablet PO (15:35)
[2024-03-16] MEDS: QUEtiapine 25 MG Tablet 50 MG PO (15:36)
--- NOTE | 2024-03-16 15:53 | DS.PCM_ITS ---
Providers Date of Admission: 03/11/24 Primary Care Physician: Dr. Richa Daniels MD Consultations 03/11/24 12:05 Consult: Gastroenterology Routine Consulting Provider: [facility] Reason for Consult: GI bleed EMERGENT Consult: No MD Notified: Yes Date Notified: 03/11/24 Time Notified: 11:13 Method of Notification: ED Physician Initiated 03/12/24 09:50 Consult: Infectious Disease Routine Consulting Provider: Noble Callejas Reason for Consult: covid pneumonia suspected secondary with aspiration, sepsis EMERGENT Consult: No MD Notified: Yes Date Notified: 03/12/24 Time Notified: 09:50 Method of Notification: Verbal 03/12/24 10:20 Consult: System Software Programmer / Pulmonary Medicine Routine Consulting Provider: Intensivists/Pulmonary Med Reason for Consult: sepsis, vomtited aspirated, EMERGENT Consult: No Notified: Yes Date Notified: 03/12/24 Time Notified: 09:35 Method of Notification: Text Reason For Visit: UPPER GI BLEED Diagnosis Discharge Diagnosis (1) Encephalopathy: Status: Acute Code(s): G93.40 - Encephalopathy, unspecified (2) COVID-19: Status: Acute Code(s): U07.1 - COVID-19 Medications at Discharge Home Medications clopidogrel 75 mg tablet 75 mg PO DAILY 03/28/13 hydrochlorothiazide 25 mg tablet 25 mg PO DAILY ##0 03/28/13 metoprolol succinate 100 mg tablet,extended release 24 hr 100 mg PO DAILY 03/28/13 paliperidone 6 mg tablet,extended release 24 hr 6 mg PO QHS 01/31/17 albuterol sulfate 90 mcg/actuation aerosol inhaler 2 puff inhalation Q6H PRN shortness of breath or wheezing #8.5 grams 08/10/22 montelukast 10 mg tablet 10 mg PO QHS #90 tabs 12/03/22 albuterol sulfate 2.5 mg/3 mL (0.083 %) solution for nebulization 2.5 mg inhalation DAILY PRN shortness of breath or wheezing 11/27/23 atorvastatin 20 mg tablet 20 mg PO QDAY 11/27/23 clonazepam 0.5 mg tablet 0.5 mg PO TID 11/27/23 fluticasone propionate 220 mcg/actuation HFA aerosol inhaler 2 inh inhalation BID 11/27/23 latanoprost 0.005 % eye drops 1 drp ophthalmic (eye) QHS 11/27/23 loratadine 10 mg tablet 10 mg PO DAILY 11/27/23 losartan 50 mg tablet 50 mg PO QDAY 11/27/23 phenobarbital 60 mg tablet 120 mg PO 0800 11/27/23 phenobarbital 60 mg tablet 180 mg PO SUMOWETHSA seizures 11/27/23 polyethylene glycol 3350 17 gram/dose oral powder (Miralax) 17 g PO DAILY PRN CONSTIPATION 11/27/23 propylene glycol 1 %-glycerin 0.3 % eye drops (Artificial Tears (glycerin-peg)) 1 drp ophthalmic (eye) Q4H PRN dry eye(s) 11/27/23 acetaminophen 500 mg tablet 1,000 mg PO BID 03/11/24 cholecalciferol (vitamin D3) 25 mcg (1,000 unit) tablet 50 mcg PO DAILY 03/11/24 diphenhydramine HCl 50 mg/mL injection solution 50 mg IM X1 DISTONIA 03/11/24 levothyroxine 200 mcg tablet 200 mcg PO DAILY 03/11/24 nifedipine 90 mg tablet,extended release 90 mg PO DAILY 03/11/24 phenobarbital 60 mg tablet 60 mg PO TUFR seizures 03/11/24 quetiapine 25 mg tablet 25 mg PO BID PSYCHOSIS 03/11/24 quetiapine 50 mg tablet 50 mg PO TID AGGITATION 03/11/24 cefdinir 300 mg capsule 300 mg PO BID 5 days #10 caps 03/16/24 dexamethasone 6 mg tablet 6 mg PO DAILY #4 tabs 03/16/24 escitalopram oxalate 10 mg tablet 10 mg PO DAILY #0 tabs 03/16/24 pantoprazole 40 mg tablet,delayed release (Protonix) 40 mg PO DAILY #30 tabs 03/16/24 Hospital Course Operations None Procedures EGD Summary of Care Provided Minutes Spent on Discharge: 35 Hospital Course: Per HPI: SIERRA MORRISON, is a 73 F with history of for schizophrenia was brought to ED by EMS from [facility] for coffee-ground emesis/hematemesis. Patient is in [facility] for history of schizophrenia, severe depression with psychosis. Patient did not speak single word and she is mute although she seems trying to open mouth and speak. Therefore history is difficult and incomplete and mainly gathered from 2 sisters in the ER, ED physician in the chart. He talked to Dr. Mota from [facility] and said recently her SSRI was changed to. She is not talking much, participating in activity and lays down on the bed all the time. In ED, she was found to have low-grade fever Tmax 99.7, mild tachycardia on 108/m on 2 to 3 L of oxygen. She was tested SARS-CoV-2 PCR positive although she was tested negative probably antigen in half-way yesterday Hospital Course: 1. Acute hypoxic respiratory failure probably due to COVID-19 pneumonia complicated with secondary bacterial pneumonia possible aspiration pneumonitis: Chest x-ray individually reviewed. Hypoventilation, increased marking at the bilateral lung bases looks atelectasis. Patient is being admitted in PCU. COVID-19 PCR positive. RSV and influenza negative. Patient is started on IV dexamethasone and IV remdesivir. She is vaccinated with booster against COVID- 19 03/12: ABG ordered. Patient on Airvo transfer to ICU. DNR CC arrest but okay with vasopressors. Chest x-ray done and reviewed and shows progressive bibasilar atelectasis. ABG 7.48/32.5/109 on Airvo 60% FiO2. Discussed with the thread winder automatic. Patient has leukocytosis. CK and LDH and CRP elevated. Procalcitonin 0.15. 03/13: Patient on currently 2 L of oxygen. Awake and alert. Airvo discontinued. Still has leukocytosis. On broad-spectrum antibiotic. System Software Programmer recommended downgrade to PCU and transferred ordered. 03/14: Oxygen requirement is 2 L. Tachypnea has resolved. MRSA nasal PCR positive. 03/15: Currently 94% on room air 03/16/2024: Will complete of Decadron on discharge 6 mg p.o. for 4 more days, she did complete remdesivir. I discussed with her and her sister the plan for discharge back to intermediate care and expressed understanding of the risk benefits of going back to like to go today. Suspected sepsis from pneumonia probably exacerbated by vomiting and aspiration and Proteus mirabilis UTI: The patient has sepsis with clinical indicators of fever, tachycardia, tachypnea and decreased urine output due to pneumonia and Proteus mirabilis with acute sepsis-related organ dysfunction as evidenced by acute hypoxic respiratory failure requiring Airvo, altered mental status, decreased urine output and fluid responsive hypotension. IV fluid as per sepsis protocol. IV antibiotic broadened to vancomycin and meropenem. Patient allergic to amoxicillin, charted as needs follow-up. ID consulted. vancomycin and Zosyn. Discontinue ceftriaxone. Continue dexamethasone and remdesivir. 03/13: Patient did not require vasopressor. She responded well with IV fluid bolus. Currently normotensive, awake and alert, talking coherent seems in baseline. 03/15: Urine culture shows more than 100,000 colonies of Proteus mirabilis. Meropenem discontinued. Started on IV ceftriaxone. Continue IV vancomycin as MRSA nasal screen positive. ID follow-up tomorrow AM. 03/16/2024: Pneumonia is unlikely and her symptomatology was likely related to her Proteus UTI, continue with cefdinir on discharge 2. Mild chronic persistent asthma with exacerbation due to COVID-19 pneumonia and, severe obstructive sleep apnea: Patient follows in pulmonary office with Dr. Saldana and Heide Veliz. Last seen in November 2023, asthma controlled on Flovent. CPAP at 13 cm of H2O 3. Possible upper GI bleed: As per EMS half-way patient had hematemesis although gastric occult blood test negative. Last EGD in December 2020 shows normal esophagus, stomach and duodenum. GI consulted. Patient may be stable for EGD tomorrow. 03/12: H&H 11.4/34.6%. Does not show acute drop therefore EGD not emergency. Patient also not hemodynamically stable for EGD. Continue PPI. 03/13: H&H dropped to 9.5/30%. No acute GI bleed after admission or last night. Patient has risk for sedation and anesthesia as she just recovered from 2 days of acute encephalopathy. Risk of benefits explained to the patient's sister and she understood. Discussed with Dr. Church. Plan for possible EGD tomorrow a.m. 03/14: H&H 9.5/29.7%, similar to yesterday. Discussed with Dr. Church. No acute emergency therefore plan for EGD on Saturday. 03/15: H&H similar 9.6 for last 3 days. Plan for EGD tomorrow a.m. clinical update given to the patient's sister. 03/16/2024: H&H is stable at 10 today, EGD shows gastritis and duodenitis and esophagitis no signs of active bleeding. Will place her on Protonix 1 mg p.o. twice daily for 14 days and then daily after that 4. Acute change in mental status/encephalopathy probably medications with history of schizophrenia, severe depression with psychotic symptoms with suspicion of neuroleptic malignant syndrome: Patient SSRI was recently changed. Patient on paliperidone monthly injection along with Seroquel and escitalopram. Patient might be overmedicated therefore will hold Seroquel. Continue escitalopram 03/12: Patient neuroexam looks more resid especially in the neck muscle, flexion extension and rotation, jaw muscles and lower extremities. This was discussed with the neurologist Dr. Trish Agustin. serum phenobarb level is high 54. EKG was done and does not show acute epileptiform activity but diffuse encephalopathy. Recommended to transfer to ICU therefore transfer call placed. In meantime continue phenobarbital. Keppra 2 g IV 1 dose ordered. 03/13: Patient mental status is back on baseline. On phenobarbital as recommended by the neurologist. I talked to the patient's sister and she said that she is getting more pressured speech talking loud therefore put back her on scheduled Seroquel 75 mg twice daily and 50 mg in the afternoon. She is also on Invega 6 mg at night. Advised to bring back the medication. On diphenhydramine 50 mg IM, decreased to 25 mg IM today. 03/14: Yesterday as per nursing staff diphenhydramine 50 mg IM daily was wrong entered and it was 1 day 1 dose therefore it was discontinued on 03/13. 03/16/2024: Resolved 5. Type 2 diabetes mellitus: Glucose in BMP 108. Likely to go up on steroid. Accu-Chek before meals and at bedtime with Humalog sliding scale coverage and hypoglycemia protocol. 03/13: A1c 6.1%. 6. Hypertension: Blood pressure in normal range. Systolic BP in 110s to 120s. Hold antihypertensive medication. 03/13: Continue holding antihypertensive medications. 7. Possible chronic epilepsy: Patient on high dose of phenobarbital. Hold now but will reevaluate tomorrow depending on the mental status. Physical Exam Narrative General: Alert, Oriented x3, Cooperative, No apparent distress HEENT: Atraumatic, PERRLA, EOMI, Normocephalic, hard of hearing Oral: Moist Mucosa Neck: Supple, No JVD Lungs: Diminished, Normal air movement, No rhonchi, No wheeze, No rales Cardiovascular: Regular rate, Regular Rhythm, Normal S1, Normal S2, no murmurs Abdomen: Soft, Non Tender, Non-Distended, No Hepato-splenomegaly Extremities: No edema, Capillary Refill Less than 3 Seconds Skin: No rashes, No breakdown Musculoskeletal: No Tenderness to Palpation of Joints or Extremities Neurological: No focal neurological deficits, Motor Exam 5/5 strength throughout, Sensory exam intact to light touch and pain Psych/Mental Status: Normal Affect, Appropriate Weight / BMI Weight Weight: 303 lb 2.17 oz Body Mass Index (BMI) 53.7 ABG / Lab / Microbiology Data 03/16/24 06:27 03/16/24 06:27 Laboratory: Laboratory Results - last 24 hr 03/15/24 22:16: Vancomycin Trough 20.7 H 03/16/24 06:27: WBC 7.2, RBC 3.25 L, Hgb 10.0 L, Hct 31.2 L, MCV 96.0, MCH 30.8, MCHC 32.1, RDW Std Deviation 61.0 H, RDW Coeff of Piedad 17.2 H, Plt Count 180, MPV 9.6, Immature Gran % (Auto) 1.100 H, Neut % (Auto) 54.2, Lymph % (Auto) 29.9, Hooker % (Auto) 9.3, Eos % (Auto) 5.4 H, Baso % (Auto) 0.1, Absolute Neuts (auto) 3.9, Absolute Lymphs (auto) 2.15, Nucleated RBC % 0, Sodium 143, Potassium 3.8, Chloride 112 H, Carbon Dioxide 25.0, Anion Gap 7, BUN 23 H, Creatinine 0.57, Estim Creat Clear Calc 84.19, Est GFR (MDRD) Af Amer 133, Est GFR (MDRD) Non-Af 110, BUN/Creatinine Ratio 40.4 H, Glucose 97, Calcium 9.1, Random Vancomycin 16.4 H Microbiology: Microbiology 03/11/24 08:59 Blood Culture (Wb) - Anticubital Right Blood Culture - Final No growth in 5 days. 03/12/24 09:20 Blood Culture (Wb) - Right Hand Blood Culture - Preliminary No growth in 48 hours. 03/11/24 10:12 Urine, Catheterized Urine Culture - Final Proteus mirabilis 03/11/24 12:06 Urine, Clean Catch Streptococcus pneumoniae Antigen (M - Final 03/12/24 13:07 Nasal Secretion MRSA (PCR) - Final Meth. resistant Staph. aureus 03/11/24 09:01 Mucosa - Nose SARS-CoV-2, Influenza & RSV (PCR) - Final SARS-CoV-2 (COVID 19 PCR) 03/11/24 18:50 Urine, Random Legionella Antigen - Final 03/11/24 09:01 Vomitus Gastric Occult Blood - Final Meaningful Use Info Meaningful Use Meaningful Use Diagnoses (Choose all that apply): None applicable Ischemic Stroke Statin Dosing Therapy Reference: STATIN DOSE THERAPY REFERENCE: * Patients > 75 years receive moderate or high dose statin therapy. * Patients 75 years or YOUNGER should receive HIGH intensity statin dose unless contraindicated. You will be required to document reason for non-treatment if statin daily dose does not meet guidelines. HIGH DOSE STATIN THERAPY DAILY Atorvastatin > than or = to 40 mg Rosuvastatin > than or = to 20 mg Amlodipine + Atorvastatin > than or = to 2.5/40 mg Ezetimibe + Simvastatin 10/80 mg Simvastatin 80mg Discharge Plan Admission Admit Date/Time: 03/11/24 11:09 Attending Provider: Luis Hernández Primary Care Provider: Richa Daniels Consulting Providers: Colt Nascimento; Hoa Jacobson; Kaden Lee; Trish Agustin; Autumn Astorga; Noble Callejas; Robin Birch; Silverio Donohue; Teddy Saldana; Lc Cazares; Cuong Weathers; Renny Smith; Frieda Luna; Camilo Mena; León Bhatt; Sherri Bartholomew; Gildardo Vora; Marek Tiwari; Devan Colbert; Rebel Madera; Nancy Albert; Rico Dent; Percy Lawson; Nilda Palma; Hansel Spears; Dom Morley; REANNA SIDHU; Jaciel Browne; Macrina Tay; Peng Fong Discharge Orders/Prescriptions Prescriptions: New escitalopram oxalate 10 mg Tablet 10 mg PO DAILY Qty: 0 0RF dexamethasone 6 mg tablet 6 mg PO DAILY Qty: 4 0RF cefdinir 300 mg capsule 300 mg PO BID 5 Days Qty: 10 0RF pantoprazole [Protonix] 40 mg tablet,delayed release (DR/EC) 40 mg PO DAILY Qty: 30 0RF Rx Instructions: take BID for 14 days then transition to daily dosing Continued albuterol sulfate 2.5 mg /3 mL (0.083 %) solution for nebulization 2.5 mg inhalation DAILY PRN (Reason: shortness of breath or wheezing) Artificial Tears(glycerin-peg) 1-0.3 % drops 1 drp ophthalmic (eye) Q4H PRN (Reason: dry eye(s)) atorvastatin 20 mg tablet 20 mg PO QDAY clonazepam 0.5 mg tablet 0.5 mg PO TID fluticasone propionate 220 mcg/actuation HFA aerosol inhaler 2 inh inhalation BID loratadine 10 mg tablet 10 mg PO DAILY losartan 50 mg tablet 50 mg PO QDAY polyethylene glycol 3350 [Miralax] 17 gram/dose powder 17 g PO DAILY PRN (Reason: CONSTIPATION ) latanoprost 0.005 % drops 1 drp ophthalmic (eye) QHS clopidogrel 75 MG tablet 75 mg PO DAILY metoprolol succinate 100 MG tablet 100 mg PO DAILY hydrochlorothiazide 25 MG tablet 25 mg PO DAILY Qty: 0 phenobarbital 60 mg tablet 120 mg PO 0800 Patient Comments: PT TAKES 2 60MG TABS (120MG) EVERY MORNING. TAKES 3 TABS (180MG) EVERY SUN, SAT, SAT, TH, SAT AT BEDTIME. TAKES 1 TAB (60MG) EVERY TUES AND FRI AT BEDTIME. phenobarbital 60 mg tablet 180 mg PO SUMOWETHSA Patient Comments: PT TAKES 2 60MG TABS (120MG) EVERY MORNING. TAKES 3 TABS (180MG) EVERY SUN, SAT, WED, TH, SAT AT BEDTIME. TAKES 1 TAB (60MG) EVERY TUES AND FRI AT BEDTIME. Rx Instructions: GIVE AT BEDTIME paliperidone 6 MG tablet 6 mg PO QHS acetaminophen 500 mg tablet 1,000 mg PO BID diphenhydramine HCl 50 mg/mL solution 50 mg IM X1 levothyroxine 200 mcg tablet 200 mcg PO DAILY nifedipine 90 mg tablet extended release 90 mg PO DAILY phenobarbital 60 mg tablet 60 mg PO Patient Comments: PT TAKES 2 60MG TABS (120MG) EVERY MORNING. TAKES 3 TABS (180MG) EVERY SUN, MON, WED, TH, SAT AT BEDTIME. TAKES 1 TAB (60MG) EVERY AND FRI AT BEDTIME. quetiapine 50 mg tablet 50 mg PO TID quetiapine 25 mg tablet 25 mg PO BID Patient Comments: PT TAKES 50MG AND 25MG (75MG) TABS IN AM, 50MG AND 25 MG (75MG) IN THE AFTERNOON, AND 50MG TAB IN THE EVENING. Rx Instructions: GIVE WITH 50MG TAB TO EQUAL TOTAL DOSE OF 75MG. cholecalciferol (vitamin D3) 25 mcg (1,000 unit) tablet 50 mcg PO DAILY albuterol sulfate 90 mcg/actuation HFA aerosol inhaler 2 puff inhalation Q6H PRN (Reason: shortness of breath or wheezing) Qty: 8.5 2RF montelukast 10 mg tablet 10 mg PO QHS Qty: 90 3RF Discontinued famotidine [Pepcid AC] 10 mg tablet 20 mg PO BID PRN (Reason: heartburn) Referrals / Follow Up: Richa Daniels MD [Primary Care Provider] - Disposition Disposition (needs filled in before D/C Order can be placed): [facility] Facility Charges/Coding Visit Charges Inpatient E&M: 05405 Disch Hosp >30min
--- NOTE | 2024-03-16 15:59 | CASEMGMT ---
Patient is ready for discharge back to [facility]. Physicians will transport patient. Plan: d/c back to [facility] under intermediate level of care. Kate STEVENSON
--- NOTE | 2024-03-16 16:21 | CASEMGMT ---
Discharge Planning Discharge orders, signed med list, and transport time sent to [facility] via [facility]. Physicians will transport patient by cot at 4:45. Nursing, SW, patient, and her sister/POA (Colleen) updated. Christina Pastrana DC Planning Asst.
--- NOTE | 2024-03-16 16:30 | PHA.DC.MR.R ---
Pharmacy [place] Med Reconciliation Pharmacy Service has performed discharge medication reconciliation for this patient. The patient's discharge medication list was reviewed for discrepancies and discrepancies were resolved. Medications at Discharge Home Medications clopidogrel 75 mg tablet 75 mg PO DAILY 03/28/13 hydrochlorothiazide 25 mg tablet 25 mg PO DAILY ##0 03/28/13 metoprolol succinate 100 mg tablet,extended release 24 hr 100 mg PO DAILY 03/28/13 paliperidone 6 mg tablet,extended release 24 hr 6 mg PO QHS 01/31/17 albuterol sulfate 90 mcg/actuation aerosol inhaler 2 puff inhalation Q6H PRN shortness of breath or wheezing #8.5 grams 08/10/22 montelukast 10 mg tablet 10 mg PO QHS #90 tabs 12/03/22 albuterol sulfate 2.5 mg/3 mL (0.083 %) solution for nebulization 2.5 mg inhalation DAILY PRN shortness of breath or wheezing 11/27/23 atorvastatin 20 mg tablet 20 mg PO QDAY 11/27/23 clonazepam 0.5 mg tablet 0.5 mg PO TID 11/27/23 fluticasone propionate 220 mcg/actuation HFA aerosol inhaler 2 inh inhalation BID 11/27/23 latanoprost 0.005 % eye drops 1 drp ophthalmic (eye) QHS 11/27/23 loratadine 10 mg tablet 10 mg PO DAILY 11/27/23 losartan 50 mg tablet 50 mg PO QDAY 11/27/23 phenobarbital 60 mg tablet 120 mg PO 0800 11/27/23 phenobarbital 60 mg tablet 180 mg PO SUMOWETHSA seizures 11/27/23 polyethylene glycol 3350 17 gram/dose oral powder (Miralax) 17 g PO DAILY PRN CONSTIPATION 11/27/23 propylene glycol 1 %-glycerin 0.3 % eye drops (Artificial Tears (glycerin-peg)) 1 drp ophthalmic (eye) Q4H PRN dry eye(s) 11/27/23 acetaminophen 500 mg tablet 1,000 mg PO BID 03/11/24 cholecalciferol (vitamin D3) 25 mcg (1,000 unit) tablet 50 mcg PO DAILY 03/11/24 diphenhydramine HCl 50 mg/mL injection solution 50 mg IM X1 DISTONIA 03/11/24 levothyroxine 200 mcg tablet 200 mcg PO DAILY 03/11/24 nifedipine 90 mg tablet,extended release 90 mg PO DAILY 03/11/24 phenobarbital 60 mg tablet 60 mg PO TUFR seizures 03/11/24 quetiapine 25 mg tablet 25 mg PO BID PSYCHOSIS 03/11/24 quetiapine 50 mg tablet 50 mg PO TID AGGITATION 03/11/24 cefdinir 300 mg capsule 300 mg PO BID 5 days #10 caps 03/16/24 dexamethasone 6 mg tablet 6 mg PO DAILY #4 tabs 03/16/24 escitalopram oxalate 10 mg tablet 10 mg PO DAILY #0 tabs 03/16/24 pantoprazole 40 mg tablet,delayed release (Protonix) 40 mg PO DAILY #30 tabs 03/16/24
--- NOTE | 2024-03-16 16:31 | PCM.POSTANE2 ---
Anesthesia Postop Eval I Sum Postop Eval Completion status Anesthesia document: Postop Eval 1 completed: Yes Anesthesia Postop Eval I Summary Anesthesia Postop Eval I Summary: Anesthesia Postop Eval I: Assessment Summary Airway patent Yes 03/16/24 14:33 [email or web address] Spontaneous unlabored Yes 03/16/24 14:33 [email or web address] respirations Mental status Awake,Calm 03/16/24 14:33 [email or web address] nausea No 03/16/24 14:33 [email or web address] Vomiting No 03/16/24 14:33 [email or web address] Anesthesia Postop Eval I: Fluid Summary Crystalloid volume administer 40 03/16/24 14:33 [email or web address] (ml) Colloids volume administered ( ml) Blood Product volume administered (ml) Total IV fluid infused 40 03/16/24 14:33 [email or web address] Anesthesia Postop Eval I: Summary Notes Anesthesia Complication No 03/16/24 14:33 [email or web address] Anesthesia Complication Comment: Post-operative progress note Anesthesia: Postop Eval II Evaluation Mental status: Awake Pain Level: 0 nausea: No Vomiting: No
== END 2024-03-16 17:09 | disposition skilled nursing facility (03) | DRG 871 ==
LOC: ED 11:21 → PCU 11:34 → ICU 03-12 09:46 → PCU 03-15 08:50
PROVIDERS: Anesthesiology; Internal Medicine Critical Care Medicine; Internal Medicine Gastroenterology; Admitting Provider Internal Medicine; Emergency Provider Emergency Medicine; PCP Family Medicine; Visit Provider Family Medicine
PROC: 0DJ08ZZ Inspection of Upper Intestinal Tract, Via Natural or Artificial Opening Endoscopic (ICD-10-PCS; CPT 43235; principal; 2024-03-16 13:25)
DX: A41.9 Sepsis, unspecified organism (principal); U07.1 COVID-19; J96.01 Acute respiratory failure with hypoxia; J69.0 Pneumonitis due to inhalation of food and vomit; J12.82 Pneumonia due to coronavirus disease 2019; J15.9 Unspecified bacterial pneumonia; G93.40 Encephalopathy, unspecified; Z68.43 Body mass index [BMI] 50.0-59.9, adult; J45.901 Unspecified asthma with (acute) exacerbation; F32.2 Major depressive disorder, single episode, severe without psychotic features; N39.0 Urinary tract infection, site not specified; F20.9 Schizophrenia, unspecified; E11.9 Type 2 diabetes mellitus without complications; G40.909 Epilepsy, unspecified, not intractable, without status epilepticus; K25.9 Gastric ulcer, unspecified as acute or chronic, without hemorrhage or perforation; E66.01 Morbid (severe) obesity due to excess calories; G47.33 Obstructive sleep apnea (adult) (pediatric); K21.00 Gastro-esophageal reflux disease with esophagitis, without bleeding; K44.9 Diaphragmatic hernia without obstruction or gangrene; K31.89 Other diseases of stomach and duodenum; K29.80 Duodenitis without bleeding; Z66 Do not resuscitate; Z79.51 Long term (current) use of inhaled steroids; Z79.899 Other long term (current) drug therapy; Z86.73 Personal history of transient ischemic attack (TIA), and cerebral infarction without residual deficits
CPT/HCPCS: 36415; 36600; 70450; 71045; 80048; 80053; 80184; 80202; 81001; 82271; 82550; 82803; 82962; 83036; 83605; 83615; 83735; 83880; 84145; 84439; 84443; 84484; 85014; 85018; 85025; 85610; 85730; 86140; 87040; 87077; 87086; 87088; 87186; 87449; 87631; 87641; 88305; 88342; 92610; 93005; 93970; 94640; 94660; 94762; 95819; 97110; 97162; 97166; 99285; J2185; J7030; J7040; J7050; P9612; A4216; J0248; J2405; J3490

== ENCOUNTER → 2024-03-18 05:00 | Outpatient (REF) | payer MEDICARE, MEDICAID, SELFPAY | LOC: OLS.WCC 05:00 | PROVIDERS: PCP Family Medicine; Visit Provider Family Medicine | DX: Z79.899 Other long term (current) drug therapy (principal) | CPT/HCPCS: 36415; 80184 ==

== ENCOUNTER → 2024-06-04 | Outpatient (REF) | payer MEDICARE, MEDICAID, SELFPAY ==
[2024-06-04 08:11] LABS: Hematocrit 31.9 % (37-47); Hemoglobin 10.3 g/dL (12.0-15.0); Mean Corp Hgb Conc 32.3 g/dL (32-36); Mean Corpuscular Hgb 32.6 pg (27.0-32.0); Mean Corpuscular Volume 100.9 fL (81-99); Mean Platelet Vol. 10.4 fl (6.2-12.0); Platelet Count 216 K/mm3 (150-450); RBC Distribution Width CV 17.2 % (11.6-14.6); RBC Distribution Width SD 64.7 fl (35.1-43.9); Red Blood Count 3.16 M/mm3 (4.2-5.4)
[2024-06-04 08:32] LABS: Anion Gap 2 (5-15); BUN 27 mg/dL (7-18); Calcium,Total 8.8 mg/dL (8.5-10.1); Chloride 105 mmol/L (98-107); Cholesterol 193 mg/dL (200); Creatinine, Serum 0.82 mg/dL (0.55-1.02); EST Glomerular Filtration Rate 72 mL/min (>60); Est Glom Filt Rate - Afr Amer 88 mL/min (>60); Glucose 93 mg/dL (74-106); High Density Lipoprotein 86 mg/dL; Potassium 3.9 mmol/L (3.5-5.1); Sodium Level 139 mmol/L (136-145); Triglycerides 154 mg/dL; Very Low Density Lipoprotein 31 mg/dL (5-40)
== END ==
LOC: OLS.WCC 05:00
PROVIDERS: PCP Family Medicine; Visit Provider Family Medicine
DX: I10 Essential (primary) hypertension (principal); E78.5 Hyperlipidemia, unspecified; Z79.899 Other long term (current) drug therapy
CPT/HCPCS: 36415; 80048; 80061; 80184; 84443; 85027

== ENCOUNTER 2024-08-13 15:37 | Inpatient (IN) | payer MEDICARE, MEDICAID, SELFPAY ==
[2024-08-13] VITALS (14 sets, daily range): BP systolic 75–102; BP diastolic 51–74; PULSE 74–97; RESP 12–26; TEMP 37.1–38.3; O2SAT 80–98; BMI 55.5; BMI 58.3
[2024-08-13] MEDS: 0.9% Normal Saline (1000mL) 1,000 ML 999 ML IV ×3 (15:51→17:15)
[2024-08-13 16:03] LABS: Absolute Lymphocyte Count 0.54 X10^3/uL (0.83-4.51); Absolute Neutrophil Count 13.6 X10^3/uL (2.0-7.7); Basophil# 0.02 X10^3/uL; Basophil% 0.1 % (0-1); Hematocrit 36.2 % (37-47); Hemoglobin 11.9 g/dL (12.0-15.0); Lymphocyte # 0.54 X10^3/ul (0.83-4.51); Lymphocyte % 3.6 % (19-41); Mean Corp Hgb Conc 32.9 g/dL (32-36); Mean Corpuscular Hgb 32.2 pg (27.0-32.0); Mean Corpuscular Volume 97.8 fL (81-99); Mean Platelet Vol. 10.5 fl (6.2-12.0); Monocyte# 0.78 X10^3/uL; Monocyte% 5.2 % (0-10); NRBC Flagged by Analyzer 0.1 % (0-5); Neutrophil # 13.56 X10^3/uL (2.7-7.7); Neutrophil % 90.8 % (47-70); POSITIVE DIFFERENTIAL YES; Platelet Count 188 K/mm3 (150-450); RBC Distribution Width CV 15.8 % (11.6-14.6); RBC Distribution Width SD 56.1 fl (35.1-43.9)
--- NOTE | 2024-08-13 16:13 | EX.ED.DYSGE1 ---
HPI History of Present Illness Chief Complaint: Shortness of Breath Narrative Narrative: Patient is a 74-year-old female with a past medical history of CVA, seizures, RA, MARY, COPD on 2 L nasal cannula at night, hypothyroidism,, GERD, schizophrenia, hypertension who presented to the emergency department with a chief complaint of cough shortness of breath. According to EMS when they arrived she was on 2 L and she was noted be hypoxic at 73% they placed her on 5 L got her to 80% and brought her here for the valuation management. There is concerned that she had aspiration earlier today as she vomited while she was laying down. She recently tested positive for influenza according to staff and EMS. Patient states that she feels short of breath [facility] Medical History Epilepsy Hammer toes of both feet Cerebrovascular disease Age related cataract Wears glasses Wears hearing aid Rash Walker as ambulation aid Easy bruising History of diverticulitis Gastric reflux Non-smoker Shortness of breath on exertion Vericose veins History of CVA (cerebrovascular accident) Seizure disorder Thyroid disorder Rheumatoid arthritis Diverticulitis Sleep apnea COPD (chronic obstructive pulmonary disease) Diabetes mellitus type 2 in obese Benign essential hypertension Convulsion Osteoarthritis Hypothyroid TIA (transient ischemic attack) Hypercholesterolemia Anemia in chronic illness Allergic rhinitis Glaucoma Morbid obesity Peripheral venous insufficiency GERD (gastroesophageal reflux disease) Asthma Schizophrenia Depression Anxiety disorder Hyperlipidemia Hypertension Home Medications ?Medication ?Instructions ?Recorded ?Last Taken ?Type clopidogrel 75 mg tablet 75 mg PO DAILY 03/28/13 03/10/24 History hydrochlorothiazide 25 mg tablet 25 mg PO DAILY ##0 03/28/13 03/10/24 History metoprolol succinate 100 mg 100 mg PO DAILY 03/28/13 12/19/20 History tablet,extended release 24 hr paliperidone 6 mg tablet,extended 6 mg PO QHS 01/31/17 03/10/24 History release 24 hr montelukast 10 mg tablet 10 mg PO QHS #90 tabs 12/03/22 03/10/24 Rx albuterol sulfate 2.5 mg/3 mL 2.5 mg inhalation DAILY PRN 11/27/23 Unknown History (0.083 %) solution for nebulization shortness of breath or wheezing atorvastatin 20 mg tablet 20 mg PO QHS 11/27/23 03/11/24 History clonazepam 0.5 mg tablet 0.5 mg PO BID 11/27/23 03/10/24 History fluticasone propionate 220 2 inh inhalation BID 11/27/23 03/10/24 History mcg/actuation HFA aerosol inhaler latanoprost 0.005 % eye drops 1 drp ophthalmic (eye) QHS 11/27/23 03/10/24 History losartan 50 mg tablet 50 mg PO DAILY 11/27/23 03/10/24 History phenobarbital 60 mg tablet 120 mg PO 0800 11/27/23 Unknown History phenobarbital 60 mg tablet 180 mg PO SUMOWETHSA seizures 11/27/23 Unknown History polyethylene glycol 3350 17 17 g PO DAILY PRN CONSTIPATION 11/27/23 03/10/24 History gram/dose oral powder (Miralax) propylene glycol 1 %-glycerin 0.3 2 drp ophthalmic (eye) Q4H PRN dry 11/27/23 Unknown History % eye drops (Artificial Tears eye(s) (glycerin-peg)) acetaminophen 500 mg tablet 500 mg PO Q6H PRN pain 03/11/24 03/10/24 History cholecalciferol (vitamin D3) 25 50 mcg PO DAILY 03/11/24 Unknown History mcg (1,000 unit) tablet levothyroxine 200 mcg tablet 200 mcg PO QHS 03/11/24 03/10/24 History nifedipine 90 mg tablet,extended 90 mg PO DAILY 03/11/24 03/10/24 History release phenobarbital 60 mg tablet 60 mg PO TUFR seizures 03/11/24 03/10/24 History escitalopram oxalate 10 mg tablet 10 mg PO DAILY #0 tabs 03/16/24 Unknown Rx albuterol sulfate 90 mcg/actuation 2 puff inhalation Q4H PRN 08/13/24 Unknown History aerosol inhaler shortness of breath or wheezing ondansetron 4 mg disintegrating 4 mg PO Q4H PRN nausea and vomiting 08/13/24 Unknown History tablet pantoprazole 40 mg tablet,delayed 40 mg PO BID 08/13/24 Unknown History release (Protonix) quetiapine 100 mg tablet 100 mg PO QHS 08/13/24 Unknown History triamcinolone acetonide 0.1 % 1 applic topical Q8 PRN itching 08/13/24 Unknown History topical cream Allergy/AdvReac Type Severity Reaction Status Date / Time amoxicillin Allergy NEEDS Verified 03/11/24 08:36 FOLLOW-UP codeine Allergy Shortness Verified 03/11/24 08:36 of breath cyclobenzaprine (From Allergy NEEDS Verified 03/11/24 08:36 Flexeril) FOLLOW-UP dextromethorphan HBr (From Allergy Shortness Verified 03/11/24 08:36 Tylenol Cold Multi-Symptom) of breath diazepam (From Valium) Allergy Shortness Verified 03/11/24 08:36 of breath fluticasone (From Advair Allergy NEEDS Verified 03/11/24 08:36 Diskus) FOLLOW-UP Food Allergies: Uncoded Allergy Shortness Verified 03/11/24 08:36 of breath guaifenesin (From Tylenol Allergy Shortness Verified 03/11/24 08:36 Cold Multi-Symptom) of breath hydrocodone bitartrate (From Allergy Shortness Verified 03/11/24 08:36 Vicodin) of breath iodine Allergy Anaphylaxis Verified 03/11/24 08:36 Latex, Natural Rubber Allergy Shortness Verified 03/11/24 08:36 of breath morphine Allergy Shortness Verified 03/11/24 08:36 of breath NSAIDS (Non-Steroidal Allergy Shortness Verified 03/11/24 08:36 Anti-Inflamma of breath oxaprozin (From Daypro) Allergy NEEDS Verified 03/11/24 08:36 FOLLOW-UP oxycodone Allergy NEEDS Verified 03/11/24 08:36 FOLLOW-UP phenylephrine HCl (From Allergy Shortness Verified 03/11/24 08:36 Tylenol Cold Multi-Symptom) of breath phenytoin (From Dilantin) Allergy NEEDS Verified 03/11/24 08:36 FOLLOW-UP phenytoin sodium (From Allergy Shortness Verified 03/11/24 08:36 Dilantin) of breath phenytoin sodium extended Allergy Shortness Verified 03/11/24 08:36 (From Dilantin) of breath povidone-iodine (From Allergy BLISTERS Verified 03/11/24 08:36 Betadine) pseudoephedrine HCl (From Allergy Shortness Verified 03/11/24 08:36 Tylenol Cold Multi-Symptom) of breath salmeterol (From Advair Allergy NEEDS Verified 03/11/24 08:36 Diskus) FOLLOW-UP shellfish derived Allergy NEEDS Verified 03/11/24 08:36 FOLLOW-UP soap (From Betadine) Allergy BLISTERS Verified 03/11/24 08:36 tetracycline Allergy NEEDS Verified 03/11/24 08:36 FOLLOW-UP tositumomab iodine-131 Allergy NEEDS Verified 03/11/24 08:36 FOLLOW-UP muscle relaxers Allergy Shortness Uncoded 05/22/23 11:04 of breath Family History Other Arthritis CVA (cerebral vascular accident) Cancer Depression Diabetes Emphysema lung Hypertension Surgical History History of cholecystectomy History of tonsillectomy History of total hysterectomy History of total knee replacement History of bilateral tympanoplasty History of tubal ligation History of D&C Social History Smoking Status: Never smoker second hand exposure: Yes alcohol intake: never substance use type: does not use what type of physical activity do you participate in: walking do you feel safe at home: Yes ROS ROS ED ROS Narrative Constitutional: Denies fevers, chills, headaches Eyes: Denies change in vision double vision blurry vision Cardiovascular: Denies chest pain or palpitations Respiratory: Complains cough and shortness of breath Abdomen: Complains of nausea denies abdominal pain vomiting diarrhea : Denies any urinary symptoms Neurological: Denies numbness, weakness, tingling Musculoskeletal: Denies back pain Skin: Denies rashes or lesions EXAM Physical Exam Narrative Exam Narrative: General: Patient lying in bed rest comfortably did not appear to be in acute distress Head: Atraumatic, normocephalic Eyes: PERRL bilaterally, EOMI bilaterally, no conjunctival injection noted Neck: Soft, supple, trachea midline Cardiovascular: Regular rate and rhythm no murmurs gallops rubs noted Respiratory: Patient has coarse breath sounds bilaterally Abdomen: Soft, nondistended, bowel sounds present x 4 no tenderness palpation Extremities: +4/5 strength noted in the bilateral upper and lower extremities, radial pulses +2/4 in the bilateral per extremities Neurological: Patient following commands knew that she was at [facility] Skin: Warm, dry, intact Const Vital Signs: 08/13/24 15:38 08/13/24 15:38 08/13/24 15:42 Temperature 101 F H 101 F H Temperature Source Axillary Axillary Pulse Rate 97 94 Respiratory Rate 26 H 22 H Respiratory Effort Short of Breath Respiratory Pattern Tachypnea Blood Pressure 87/58 L 87/58 L Blood Pressure Mean 67 67 Pulse Ox 80 86 Oxygen Delivery Method Room Air Nasal Cannula Oxygen Flow Rate (L/min) 6 Fraction of Inspired Oxygen (FIO2) 08/13/24 15:43 08/13/24 16:38 08/13/24 17:01 Temperature Temperature Source Pulse Rate 86 Respiratory Rate 25 H Respiratory Effort Respiratory Pattern Normal Blood Pressure 82/56 L Blood Pressure Mean 64 Pulse Ox 89 90 Oxygen Delivery Method Nasal Cannula High Flow Oxygen Flow Rate (L/min) 6 15 Fraction of Inspired Oxygen (FIO2) 86 70 08/13/24 17:01 08/13/24 18:04 08/13/24 18:47 Temperature Temperature Source Pulse Rate 82 80 81 Respiratory Rate 19 H 21 H 19 H Respiratory Effort Respiratory Pattern Normal Blood Pressure 75/51 L 79/60 L Blood Pressure Mean 59 66 Pulse Ox 93 94 94 Oxygen Delivery Method Bi-pap Bi-pap Oxygen Flow Rate (L/min) Fraction of Inspired Oxygen (FIO2) 70 08/13/24 19:05 08/13/24 19:05 08/13/24 19:24 Temperature 98.8 F 98.8 F Temperature Source Axillary Pulse Rate 82 82 82 Respiratory Rate 21 H 21 H 19 H Respiratory Effort Respiratory Pattern Blood Pressure 84/59 L 84/59 L 87/69 L Blood Pressure Mean 67 67 75 Pulse Ox 95 96 96 Oxygen Delivery Method Bi-pap Bi-pap Oxygen Flow Rate (L/min) Fraction of Inspired Oxygen (FIO2) MDM MDM MDM Narrative Medical decision making narrative: Patient is a 74-year-old female who presented to the emergency department the chief complaint of hypoxia, influenza positive and shortness of breath. On the differential diagnose includes but limited to pneumonia, ACS, pneumothorax, upper respiratory infection secondary to viral etiology. Once workup is obtained reviewed she will be reevaluated. Patient be given 30 cc/kg bolus of IV fluids based on ideal body weight as her BMI is greater than 30 this was ordered at 1545. Patient was febrile she will be given a gram of Tylenol. Patient be given Zofran Patient's CBC was reviewed she was significant for leukocytosis of 15,000, hemoglobin 11.9, plate count noted be 188. Patient's sodium normal 130, testing normal 4.3, creatinine was 1.48 indicating acute kidney injury, glucose was 9149 she does have an anion gap of 17. Patient lactic acid was elevated at 3.1. Patient AST and ALT were 27 and 17 respectively. Patient troponin elevated at 317, EKG was reviewed by myself which showed sinus rhythm with a rate of 94 bpm. Delta troponin pending, proBNP elevated 3099. Patient's urinalysis showed 500 leukocyte esterase negative nitrates 50-100 white cells with 3+ bacteria. Patient's chest x-ray was reviewed by myself by radiology and showed suspicion of bilateral pulmonary venous congestion. On reperfusion assessment patient's blood pressure systolic was noted to be on the soft side in the 70s however her MAP was 65 manual blood pressure was checked and was consistent with the monitor we will place her on 5 mics of Levophed. Patient was given vancomycin and cefepime at 1646. Patient's case will be discussed with hospitalist for admission to the intensive care unit. Fluid reperfusion assessment was performed at 1800 and the patient's systolic blood pressure was noted to be 80 with a MAP of 66 therefore Levophed was started. On reevaluation the patient her MAP was 77 with a systolic of 89 with 5 mics of levo. Discussed case with hospitalist Dr. Parker who accept patient to the ICU. I updated the patient's family member at bedside all question concerns answered. Lab Data Labs: Laboratory Results - last 24 hr 08/13/24 08/13/24 15:50 16:10 WBC 15.0 H RBC 3.70 L Hgb 11.9 L Hct 36.2 L MCV 97.8 MCH 32.2 H MCHC 32.9 RDW Std Deviation 56.1 H RDW Coeff of [place] 15.8 H Plt Count 188 MPV 10.5 Immature Gran % (Auto) 0.300 Neut % (Auto) 90.8 H Lymph % (Auto) 3.6 L [place] % (Auto) 5.2 Eos % (Auto) 0.0 Baso % (Auto) 0.1 Absolute Neuts (auto) 13.6 H Absolute Lymphs (auto) 0.54 L Nucleated RBC % 0.1 PT 14.8 INR 1.1 APTT 40.2 H Sodium 138 Potassium 4.3 Chloride 98 Carbon Dioxide 23.7 Anion Gap 17 H BUN 29 H Creatinine 1.48 H Estim Creat Clear Calc 45.10 L Est GFR (MDRD) Non-Af 37 L BUN/Creatinine Ratio 19.5 Glucose 149 H Lactic Acid 3.1 H* Calcium 9.2 Total Bilirubin 0.27 AST 27 ALT 17 Alkaline Phosphatase 130 H Troponin T High Sens 317 H* NT pro BNP II 3099 H Total Protein 7.4 Albumin 3.9 Globulin 3.5 Albumin/Globulin Ratio 1.1 Urine Color Yellow Urine Clarity Sl. Cloudy Urine pH 6.0 Ur Specific [place] 1.015 Urine Protein 30 H Urine Glucose (UA) Normal Urine Ketones Negative Urine Occult Blood 50 H Urine Nitrite Negative Urine Bilirubin Negative Urine Urobilinogen Normal Ur Leukocyte Esterase 500 H Urine RBC 0-5 SEEN Urine WBC 50-100 SEEN Ur Squamous Epith Cells 0-5 SEEN Urine Bacteria 3+ Urine Mucus 0 SEEN Radiography Diagnostic Testing: Clinical Impression(s) from Imaging Studies Chest X-Ray 08/13/24 16:35 IMPRESSION: Suspicion of bilateral pulmonary venous congestion. Reading Location: [place] [id number] Discharge Plan Triage Chief Complaint: Shortness of Breath ED Provider: Segundo Juarez Dx/Rx/DC Orders Clinical Impression: Acute hypoxic respiratory failure, UTI (urinary tract infection), CHF exacerbation, Acidosis, lactic, Type 2 [place] (myocardial infarction) Prescriptions: No Action albuterol sulfate 2.5 mg /3 mL (0.083 %) solution for nebulization 2.5 mg inhalation DAILY PRN (Reason: shortness of breath or wheezing) Artificial Tears(glycerin-peg) 1-0.3 % drops 2 drp ophthalmic (eye) Q4H PRN (Reason: dry eye(s)) atorvastatin 20 mg tablet 20 mg PO QHS clonazepam 0.5 mg tablet 0.5 mg PO BID fluticasone propionate 220 mcg/actuation HFA aerosol inhaler 2 inh inhalation BID losartan 50 mg tablet 50 mg PO DAILY polyethylene glycol 3350 [Miralax] 17 gram/dose powder 17 g PO DAILY PRN (Reason: CONSTIPATION ) latanoprost 0.005 % drops 1 drp ophthalmic (eye) QHS clopidogrel 75 MG tablet 75 mg PO DAILY metoprolol succinate 100 MG tablet 100 mg PO DAILY hydrochlorothiazide 25 MG tablet 25 mg PO DAILY Qty: 0 phenobarbital 60 mg tablet 120 mg PO 0800 Patient Comments: PT TAKES 2 60MG TABS (120MG) EVERY MORNING. TAKES 3 TABS (180MG) EVERY SUN, MON, WED, THURS, SAT AT BEDTIME. TAKES 1 TAB (60MG) EVERY TUES AND FRI AT BEDTIME. phenobarbital 60 mg tablet 180 mg PO SUMOWETHSA Patient Comments: PT TAKES 2 60MG TABS (120MG) EVERY MORNING. TAKES 3 TABS (180MG) EVERY SUN, MON, WED, THURS, SAT AT BEDTIME. TAKES 1 TAB (60MG) EVERY TUES AND FRI AT BEDTIME. Rx Instructions: GIVE AT BEDTIME paliperidone 6 MG tablet 6 mg PO QHS acetaminophen 500 mg tablet 500 mg PO Q6H PRN (Reason: pain) levothyroxine 200 mcg tablet 200 mcg PO QHS nifedipine 90 mg tablet extended release 90 mg PO DAILY phenobarbital 60 mg tablet 60 mg PO TU Patient Comments: PT TAKES 2 60MG TABS (120MG) EVERY MORNING. TAKES 3 TABS (180MG) EVERY SUN, MON, WED, THURS, SAT AT BEDTIME. TAKES 1 TAB (60MG) EVERY TUES AND FRI AT BEDTIME. cholecalciferol (vitamin D3) 25 mcg (1,000 unit) tablet 50 mcg PO DAILY escitalopram oxalate 10 mg Tablet 10 mg PO DAILY Qty: 0 0RF quetiapine 100 mg tablet 100 mg PO QHS triamcinolone acetonide 0.1 % cream 1 applic topical Q8 PRN (Reason: itching) ondansetron 4 mg tablet,disintegrating 4 mg PO Q4H PRN (Reason: nausea and vomiting) Rx Instructions: give 1st dose 30min before emetogenic chemo pantoprazole [Protonix] 40 mg tablet,delayed release (DR/EC) 40 mg PO BID albuterol sulfate 90 mcg/actuation HFA aerosol inhaler 2 puff inhalation Q4H PRN (Reason: shortness of breath or wheezing) montelukast 10 mg tablet 10 mg PO QHS Qty: 90 3RF Primary Care Provider: Panda Mota Referrals: Richa Daniels MD [Med Staff - [facility]] - Print Language: [place] Disposition Disposition: Acute Care Hospital [facility]
[2024-08-13 16:15] LABS: Mucous, Urine 0 SEEN /hpf (<or=2+)
[2024-08-13] MEDS: Acetaminophen 500 MG Tablet 1000 MG PO (16:16)
[2024-08-13 16:19] LABS: Color, Urine Yellow (Yellow); Glucose, Dipstick Normal (Normal); Ketone-Dipstick Negative (Negative); Leukocyte Esterase-Dipstick 500 /ul (Negative); Nitrite-Dipstick Negative (Negative); Occult Blood-Urine 50 /ul (Negative); Protein-Dipstick 30 mg/dl (Negative); Specific Gravity, Urine 1.015 (1.002-1.030); Urine Bilirubin Dipstick Negative (Negative); Urine Clarity Sl. Cloudy (Clear); Urine Urobilinogen Normal (Normal)
[2024-08-13 16:27] LABS: International Normalized Ratio 1.1; Prothrombin Time (Protime)PT. 14.8 SECONDS (11.7-14.9)
[2024-08-13 16:28] LABS: Partial Thromboplast Time 40.2 Seconds (24.1-36.2)
--- NOTE | 2024-08-13 16:35 | RAD_ITS ---
PROCEDURE: AP UPRIGHT AND LATERAL CHEST REASON FOR EXAM: SHORTNESS OF BREATH. COUGH. TECHNIQUE: Frontal and lateral views of the chest. COMPARISON: None. FINDINGS: Suspicion of bilateral pulmonary venous congestive changes. Can not exclude a superimposed developing infiltrate. Mild cardiac enlargement. No pleural effusions. Atherosclerotic and tortuous aorta. Cardiac monitoring leads overlie the chest wall. Multilevel spondylosis. Exaggerated kyphosis of the thoracic spine. RAD/Chest PA and Lateral IMPRESSION: Suspicion of bilateral pulmonary venous congestion. Reading Location: [place] [id number]
[2024-08-13 16:37] LABS: Troponin T High Sensitivity 317 ng/L (<=14)
[2024-08-13 16:39] LABS: Lactic Acid 3.1 mmol/L (0.0-2.0)
[2024-08-13 16:47] LABS: ALB/GLOB Ratio 1.1 RATIO (0.9-2.4); AST(SGOT) 27 U/L (<=31); Alanine Aminotransfer ALT/SGPT 17 U/L (<=34); Albumin, Serum 3.9 g/dL (3.4-4.8); Alkaline Phosphatase 130 U/L (35-104); Anion Gap 17 (5-15); BUN 29 mg/dL (4-19); BUN/Creat Ratio 19.5 RATIO (10-20); Calcium,Total 9.2 mg/dL (7.6-11.0); Carbon Dioxide 23.7 mmol/L (21.0-32.0); Chloride 98 mmol/L (98-108); Creatinine, Serum 1.48 mg/dL (0.70-1.20); EST Glomerular Filtration Rate 37 (>60); Globulin 3.5 g/dL (2.2-4.2); Glucose 149 mg/dL (70-99); Potassium 4.3 mmol/L (3.3-5.1); Protein, Total 7.4 g/dL (5.9-8.4); Sodium Level 138 mmol/L (133-145); Total Bilirubin 0.27 mg/dL (0.00-1.30)
[2024-08-13 16:48] LABS: Bacteria 3+ /hpf (None Seen); Red Blood Cells-Urine 0-5 SEEN /hpf (0-5); Squamous Epithelial Cells - UA 0-5 SEEN /hpf (5-10); White Blood Cells 50-100 SEEN /hpf (0-5)
[2024-08-13] MEDS: Cefepime HCl 2 GM in 0.9% Normal Saline (100mL MB+) 100 ML IV (17:00)
[2024-08-13] MEDS: Ondansetron 4 MG/2 ML Vial IV (17:14)
[2024-08-13] MEDS: Vancomycin HCl 2,000 MG in 0.9% Normal Saline (500mL Bag) 500 ML 250 MG IV (17:40)
[2024-08-13 18:17] LABS: Pro- Brain NATRIURETIC PEPTIDE 3099 pg/mL (<=1800)
[2024-08-13] MEDS: Norepinephrine 8 MG in 0.9% Normal Saline (250mL Bag) 242 ML 9.4 MG CONT INF ×2 (18:29→21:43)
--- NOTE | 2024-08-13 19:14 | PCM.HP.STD ---
HPI - General General Date of Admission: 08/13/24 Date of Service: 08/13/24 Chief Complaint: N/V, possible aspiration, respiratory distress/hypoxia following. HPI Narrative The patient is a 74 y/o F w/ PMHx: Morbid obesity, Seizure disorder/epilepsy, MARY, COPD/Asthma, Hx CVA, GERD, Hypothyroidism, Chronic anemia, HTN, HLD, Rheumatoid arthritis, Anxiety and Depression/Schizophrenia, CKD stage II per prior GFR trending who presents to the [facility] ED on 08/13/2024 with history of fatigue, malaise with onset of nausea and bout of emesis while laying down earlier in the evening with onset significant dyspnea, hypoxia following with recent positive flu status Saturday (congestion, rhinorrhea, cough, fatigue) status prompting ED evaluation. Workup in the ED included T101 axillary, heart rate 97, BP initially 87/58 with MAP of 67, respiratory rate 26, initially 80% on room air with improvement to initially 86% on 6 L placed on BiPAP with BP decreased to 75/51 transiently with most recent repeat vitals heart rate 81, BP 79/60, respiratory rate 19, 94% on 70% FiO2 BiPAP, CBC with WBC 15, hemoglobin 0.9, MCV 97.8, platelets 188 with left shift and lymphopenia, coags unremarkable aside PTT 40.2, CMP with anion gap 17, BUN/creatinine 29/1.48, GFR 37, glucose 149, lactic acid 3.1, alk phos 130, troponin 317, BNP 3099, urinalysis with specific gravity 1.015, cloudy, protein 30, occult blood 50, negative nitrite, leukocyte esterase 500 however with urine WBCs 50-100 with 3+ urine bacteria, chest x-ray suspicious for bilateral venous congestion, urine culture pending per ED, blood culture x 2 pending per ED. from review of prior micro records patient does have positive previous MRSA screen 03/12/2024. In the ED patient ministered Tylenol 1000 mg p.o. x 1, cefepime 2 g IV x 1, vancomycin 2001 g IV x 1, Zofran 4 mg IV x 1 and initiated on norepinephrine drip. ED discussed case with cardiology and heparin drip was also initiated. In the ED prior to HF concerns noted she was administered 2.5L NS resuscitation. [facility] Medical History Epilepsy Hammer toes of both feet Cerebrovascular disease Age related cataract Wears glasses Wears hearing aid Rash Walker as ambulation aid Easy bruising History of diverticulitis Gastric reflux Non-smoker Shortness of breath on exertion Vericose veins History of CVA (cerebrovascular accident) Seizure disorder Thyroid disorder Rheumatoid arthritis Diverticulitis Sleep apnea COPD (chronic obstructive pulmonary disease) Diabetes mellitus type 2 in obese Benign essential hypertension Convulsion Osteoarthritis Hypothyroid TIA (transient ischemic attack) Hypercholesterolemia Anemia in chronic illness Allergic rhinitis Glaucoma Morbid obesity Peripheral venous insufficiency GERD (gastroesophageal reflux disease) Asthma Schizophrenia Depression Anxiety disorder Hyperlipidemia Hypertension Home Medications ?Medication ?Instructions ?Recorded ?Last Taken ?Type clopidogrel 75 mg tablet 75 mg PO DAILY 03/28/13 03/10/24 History hydrochlorothiazide 25 mg tablet 25 mg PO DAILY ##0 03/28/13 03/10/24 History metoprolol succinate 100 mg 100 mg PO DAILY 03/28/13 12/19/20 History tablet,extended release 24 hr paliperidone 6 mg tablet,extended 6 mg PO QHS 01/31/17 03/10/24 History release 24 hr montelukast 10 mg tablet 10 mg PO QHS #90 tabs 12/03/22 03/10/24 Rx albuterol sulfate 2.5 mg/3 mL 2.5 mg inhalation DAILY PRN 11/27/23 Unknown History (0.083 %) solution for nebulization shortness of breath or wheezing atorvastatin 20 mg tablet 20 mg PO QHS 11/27/23 03/11/24 History clonazepam 0.5 mg tablet 0.5 mg PO BID 11/27/23 03/10/24 History fluticasone propionate 220 2 inh inhalation BID 11/27/23 03/10/24 History mcg/actuation HFA aerosol inhaler latanoprost 0.005 % eye drops 1 drp ophthalmic (eye) QHS 11/27/23 03/10/24 History losartan 50 mg tablet 50 mg PO DAILY 11/27/23 03/10/24 History phenobarbital 60 mg tablet 120 mg PO 0800 11/27/23 Unknown History phenobarbital 60 mg tablet 180 mg PO SUMOWETHSA seizures 11/27/23 Unknown History polyethylene glycol 3350 17 17 g PO DAILY PRN CONSTIPATION 11/27/23 03/10/24 History gram/dose oral powder (Miralax) propylene glycol 1 %-glycerin 0.3 2 drp ophthalmic (eye) Q4H PRN dry 11/27/23 Unknown History % eye drops (Artificial Tears eye(s) (glycerin-peg)) acetaminophen 500 mg tablet 500 mg PO Q6H PRN pain 03/11/24 03/10/24 History cholecalciferol (vitamin D3) 25 50 mcg PO DAILY 03/11/24 Unknown History mcg (1,000 unit) tablet levothyroxine 200 mcg tablet 200 mcg PO QHS 03/11/24 03/10/24 History nifedipine 90 mg tablet,extended 90 mg PO DAILY 03/11/24 03/10/24 History release phenobarbital 60 mg tablet 60 mg PO TUFR seizures 03/11/24 03/10/24 History escitalopram oxalate 10 mg tablet 10 mg PO DAILY #0 tabs 03/16/24 Unknown Rx albuterol sulfate 90 mcg/actuation 2 puff inhalation Q4H PRN 08/13/24 Unknown History aerosol inhaler shortness of breath or wheezing ondansetron 4 mg disintegrating 4 mg PO Q4H PRN nausea and vomiting 08/13/24 Unknown History tablet pantoprazole 40 mg tablet,delayed 40 mg PO BID 08/13/24 Unknown History release (Protonix) quetiapine 100 mg tablet 100 mg PO QHS 08/13/24 Unknown History triamcinolone acetonide 0.1 % 1 applic topical Q8 PRN itching 08/13/24 Unknown History topical cream Allergy/AdvReac Type Severity Reaction Status Date / Time amoxicillin Allergy NEEDS Verified 03/11/24 08:36 FOLLOW-UP codeine Allergy Shortness Verified 03/11/24 08:36 of breath cyclobenzaprine (From Allergy NEEDS Verified 03/11/24 08:36 Flexeril) FOLLOW-UP dextromethorphan HBr (From Allergy Shortness Verified 03/11/24 08:36 Tylenol Cold Multi-Symptom) of breath diazepam (From Valium) Allergy Shortness Verified 03/11/24 08:36 of breath fluticasone (From Advair Allergy NEEDS Verified 03/11/24 08:36 Diskus) FOLLOW-UP Food Allergies: Uncoded Allergy Shortness Verified 03/11/24 08:36 of breath guaifenesin (From Tylenol Allergy Shortness Verified 03/11/24 08:36 Cold Multi-Symptom) of breath hydrocodone bitartrate (From Allergy Shortness Verified 03/11/24 08:36 Vicodin) of breath iodine Allergy Anaphylaxis Verified 03/11/24 08:36 Latex, Natural Rubber Allergy Shortness Verified 03/11/24 08:36 of breath morphine Allergy Shortness Verified 03/11/24 08:36 of breath NSAIDS (Non-Steroidal Allergy Shortness Verified 03/11/24 08:36 Anti-Inflamma of breath oxaprozin (From Daypro) Allergy NEEDS Verified 03/11/24 08:36 FOLLOW-UP oxycodone Allergy NEEDS Verified 03/11/24 08:36 FOLLOW-UP phenylephrine HCl (From Allergy Shortness Verified 03/11/24 08:36 Tylenol Cold Multi-Symptom) of breath phenytoin (From Dilantin) Allergy NEEDS Verified 03/11/24 08:36 FOLLOW-UP phenytoin sodium (From Allergy Shortness Verified 03/11/24 08:36 Dilantin) of breath phenytoin sodium extended Allergy Shortness Verified 03/11/24 08:36 (From Dilantin) of breath povidone-iodine (From Allergy BLISTERS Verified 03/11/24 08:36 Betadine) pseudoephedrine HCl (From Allergy Shortness Verified 03/11/24 08:36 Tylenol Cold Multi-Symptom) of breath salmeterol (From Advair Allergy NEEDS Verified 03/11/24 08:36 Diskus) FOLLOW-UP shellfish derived Allergy NEEDS Verified 03/11/24 08:36 FOLLOW-UP soap (From Betadine) Allergy BLISTERS Verified 03/11/24 08:36 tetracycline Allergy NEEDS Verified 03/11/24 08:36 FOLLOW-UP tositumomab iodine-131 Allergy NEEDS Verified 03/11/24 08:36 FOLLOW-UP muscle relaxers Allergy Shortness Uncoded 05/22/23 11:04 of breath Family History (Updated 08/13/24 @ 20:[address] Ibeth Parker MD) Mother CVA (cerebral vascular accident) Cancer Depression Diabetes Emphysema lung Hypertension Arthritis Father CVA (cerebral vascular accident) Cancer Depression Diabetes Emphysema lung Hypertension Arthritis Surgical History History of cholecystectomy History of tonsillectomy History of total hysterectomy History of total knee replacement History of bilateral tympanoplasty History of tubal ligation History of D&C Social History (Updated 08/13/24 @ 20:[address] Ibeth Parker MD) household members: none housing: halfway Smoking Status: Never smoker second hand exposure: Yes alcohol intake: never substance use type: does not use what type of physical activity do you participate in: walking do you feel safe at home: Yes ROS ROS Narrative Admission Review of Systems: CONSTITUTIONAL: No weight loss, + fever, chills, weakness or fatigue. HEENT: + Congestion, rhinorrhea. Eyes: No visual loss, blurred vision, double vision or yellow sclerae. Ears, Nose, Throat: No hearing loss, sneezing. SKIN: No rash or itching, lesions, wounds. CARDIOVASCULAR: + Orthopnea. No chest pain, chest pressure or chest discomfort, palpitations, edema, syncopal events. RESPIRATORY: + Dyspnea, cough, concern aspiration event concurrently, moist cough. No wheezing, hemoptysis. GASTROINTESTINAL: + Anorexia, nausea, vomiting. No diarrhea, abdominal pain, melena, BRBPR. GENITOURINARY: No dysuria, frequency, urgency or retention. NEUROLOGICAL: No headache, dizziness, syncope, paralysis, ataxia, numbness or tingling in the extremities, focal weakness, change in bowel or bladder control, seizure. MUSCULOSKELETAL: + muscle, back pain, joint pain or stiffness. HEMATOLOGIC: + Chronic anemia, easy bleeding/bruising. LYMPHATICS: No enlarged nodes. No history of splenectomy. PSYCHIATRIC: + History of anxiety and depression/mood disorder/schizophrenia. ENDOCRINOLOGIC: No reports of sweating, cold or heat intolerance. No polyuria or polydipsia. ALLERGIES: + History of asthma, allergic rhinitis. Vital Signs Vital Signs Vital Signs: 08/13/24 15:38 08/13/24 15:38 08/13/24 15:42 Temperature 101 F H 101 F H Temperature Source Axillary Axillary Pulse Rate 97 94 Respiratory Rate 26 H 22 H Respiratory Effort Short of Breath Respiratory Pattern Tachypnea Blood Pressure 87/58 L 87/58 L Blood Pressure Mean 67 67 Pulse Ox 80 86 Oxygen Delivery Method Room Air Nasal Cannula Oxygen Flow Rate (L/min) 6 Fraction of Inspired Oxygen (FIO2) 08/13/24 15:43 08/13/24 16:38 08/13/24 17:01 Temperature Temperature Source Pulse Rate 86 Respiratory Rate 25 H Respiratory Effort Respiratory Pattern Normal Blood Pressure 82/56 L Blood Pressure Mean 64 Pulse Ox 89 90 Oxygen Delivery Method Nasal Cannula High Flow Oxygen Flow Rate (L/min) 6 15 Fraction of Inspired Oxygen (FIO2) 86 70 08/13/24 17:01 08/13/24 18:04 08/13/24 18:47 Temperature Temperature Source Pulse Rate 82 80 81 Respiratory Rate 19 H 21 H 19 H Respiratory Effort Respiratory Pattern Normal Blood Pressure 75/51 L 79/60 L Blood Pressure Mean 59 66 Pulse Ox 93 94 94 Oxygen Delivery Method Bi-pap Bi-pap Oxygen Flow Rate (L/min) Fraction of Inspired Oxygen (FIO2) 70 08/13/24 19:05 08/13/24 19:05 Temperature 98.8 F Temperature Source Axillary Pulse Rate 82 82 Respiratory Rate 21 H 21 H Respiratory Effort Respiratory Pattern Blood Pressure 84/59 L 84/59 L Blood Pressure Mean 67 67 Pulse Ox 95 96 Oxygen Delivery Method Bi-pap Bi-pap Oxygen Flow Rate (L/min) Fraction of Inspired Oxygen (FIO2) Weight Weight: 313 lb 11.485 oz Body Mass Index (BMI) 55.5 Physical Exam Narrative Physical Examination: General: Awake, alert, oriented to self, place and events but difficult evaluation given BiPAP in place, respiratory distress seems to have improved per discussion with family present also. Skin: Normal color, normal turgor, no icterus, no cyanosis except occasional stage ecchymoses, abrasion, mild intertrigo. HEENT: AT/NC, EOMI, PERRLA, mildly dry MM, BiPAP in place, difficult to discern carotid bruit given referred sound from BiPAP and thickened neck, difficult to discern JVD given thickened neck. Lungs: Severely diminished, greater bases, mildly rhonchorous and coarse, rales potentially at the bases but difficult to discern given referred sounds with BiPAP, no wheezing. Heart: Currently regular rate and rhythm; no gallop, rub audible. Abdomen: Soft, morbidly obese, NTTP, distant BS, difficult to discern distention and HSM given habitus. Extremities: No cyanosis, no clubbing, mild ankle not markedly pitting edema. Neurological: Patient awake, alert, oriented as noted, cognitive function suspect mildly decreased from baseline and also difficult assessment given underlying schizophrenia/mood disorder also with previous history of CVA, pupils equally reactive to light and accommodation, cranial nerves gross normal, moving all 4 extremities, strength severely globally decreased. Psychiatric: Affect appears flat, fatigued, ill-appearing, no acute evidence of depressive or anxiety feelings but does have underlying history. Results Lab / Micro Data 08/13/24 15:50 08/13/24 15:50 Labs: Laboratory Results - last 24 hr 08/13/24 15:50: WBC 15.0 H, RBC 3.70 L, Hgb 11.9 L, Hct 36.2 L, MCV 97.8, MCH 32.2 H, MCHC 32.9, RDW Std Deviation 56.1 H, RDW Coeff of [place] 15.8 H, Plt Count 188, MPV 10.5, Immature Gran % (Auto) 0.300, Neut % (Auto) 90.8 H, Lymph % (Auto) 3.6 L, [place] % (Auto) 5.2, Eos % (Auto) 0.0, Baso % (Auto) 0.1, Absolute Neuts (auto) 13.6 H, Absolute Lymphs (auto) 0.54 L, Nucleated RBC % 0.1, PT 14.8, INR 1.1, APTT 40.2 H, Sodium 138, Potassium 4.3, Chloride 98, Carbon Dioxide 23.7, Anion Gap 17 H, BUN 29 H, Creatinine 1.48 H, Estim Creat Clear Calc 45.10 L, Est GFR (MDRD) Non-Af 37 L, BUN/Creatinine Ratio 19.5, Glucose 149 H, Lactic Acid 3.1 H*, Calcium 9.2, Total Bilirubin 0.27, AST 27, ALT 17, Alkaline Phosphatase 130 H, Troponin T High Sens 317 H*, NT pro BNP II 3099 H, Total Protein 7.4, Albumin 3.9, Globulin 3.5, Albumin/Globulin Ratio 1.1 08/13/24 16:10: Urine Color Yellow, Urine Clarity Sl. Cloudy, Urine pH 6.0, Ur Specific [place] 1.015, Urine Protein 30 H, Urine Glucose (UA) Normal, Urine Ketones Negative, Urine Occult Blood 50 H, Urine Nitrite Negative, Urine Bilirubin Negative, Urine Urobilinogen Normal, Ur Leukocyte Esterase 500 H, Urine RBC 0-5 SEEN, Urine WBC 50-100 SEEN, Ur Squamous Epith Cells 0-5 SEEN, Urine Bacteria 3+, Urine Mucus 0 SEEN Imaging Radiology Impression Chest X-Ray 08/13/24 16:35 IMPRESSION: Suspicion of bilateral pulmonary venous congestion. Reading Location: [place] [id number] Assessment & Plan Assessment/Plan (1) Septic shock: PLAN: Plan The patient is a 74 y/o F w/ PMHx: Morbid obesity, Seizure disorder/epilepsy, MARY, COPD/Asthma, Hx CVA, GERD, Hypothyroidism, Chronic anemia, HTN, HLD, Rheumatoid arthritis, Anxiety and Depression/Schizophrenia, CKD stage II per prior GFR trending who presents to the [facility] ED on 08/13/2024 with history of fatigue, malaise with onset of nausea and bout of emesis while laying down earlier in the evening with onset significant dyspnea, hypoxia following with recent positive flu status Saturday (congestion, rhinorrhea, cough, fatigue) status prompting ED evaluation. #1. Acute Hypoxic Respiratory Failure, multifactorial, secondary to Acute Septic Shock secondary to Acute Aspiration Event with recent Acute Influenza A Syndrome diagnosis in addition to Acute Complicated UTI w/ evidence of sepsis-induced organ dysfunction/tissue hypoperfusion and sepsis induced hypotension with inability to utilize sepsis protocol hydration given overload as noted #2 complicated by demand ischemia with elevated cardiac enzyme, acute kidney injury: Will admit patient to the ICU, will continue BiPAP cautiously given recent history of emesis swelling down and will immediately obtain stat ABG now, will consult beauty sales consultant per protocol, maintain on cardiac monitoring, continue to maintain on cardiac monitoring, maintain on norepinephrine therapy, continue central line care per protocol, will defer tamiflu given timeline of diagnosis/symptoms, maintain on IV abx regimen w/ vancomycin, rocephin, flagyl given previous history of MRSA positive status with concern for aspiration with de-escalation as able, urine antigens as well as full respiratory viral panel and COVID/influenza/RSV requested to ensure no coinfection with recent influenza reported infection, maintain on ATC duoneb therapy, as needed albuterol, blood culture x 2 pending per ED, urine culture pending per ED, continue treatment as noted #2, #3, evaluation of #4, PT/OT/case management consulted for discharge planning. #2. Acute Decompensated HF, unclear type complicated by acute presentation #1 and elevated cardiac enzymes suspected secondary to demand as noted below: CXR obtained in the ED w/ evidence of congestion. Unfortunately patient significantly hypertensive with septic shock thus deferred diuresis, will continue pressor therapy and pulse dose Lasix as able, maintain on cardiac telemetry, continue to obtain cardiac enzyme series, obtain serial EKGs, monitor I/Os, continue medical therapy w/ plavix, obtain TSH and magnesium level and FLP. Echocardiogram requested. Cardiology consulted, pending. #3. Elevated cardiac enzyme, suspected demand secondary to acute presentation #1, #2: EKG in ED w/ sinus rhythm with no acute evidence of ischemia, CXR w/ bilateral venous congestion evident. Trop elevated, 317. Will maintain on a monitored bed, continue serial cardiac enzymes and EKGs. Obtain magnesium level upon admission. Initiate and maintain on heparin drip. Continue medical management w/ plavix, statin w/ AM FLP. ECHO requested. Cardiology consulted. #4. Acute kidney injury on CKD stage II per previous GFR trending: Secondary to acute presentation as noted #1 with hypoperfusion. Admission BUN/Cr 29/1.48, GFR 37, prior baseline creatinine noted to be primarily 0.5-0.8. Given acute presentation with overload concurrently will avoid hydration, unfortunately will need to continue to diurese while also maintaining on pressor therapy, holding all nephrotoxic medication, continue treatment of UTI as noted, ensure no urinary retention present, if necessary will obtain FeNa assessment/bladder/renal ultrasound and involve nephrology if needed. #5. Chronic normocytic anemia: Admission: 1.9, MCV 97.8, baseline hemoglobin more recently 10 range, has vacillated certainly from 9-11, continue to trend. #6. Rheumatoid arthritis: Per current list does not appear to be on chronic regimen, clarifying to be certain. #7. History CVA: Will continue Plavix, statin, holding all hypertensive regimen given hypotension as noted. #8. Hypothyroidism: We will continue patient on levothyroxine regimen, TSH requested. #9. Hypertension: As noted significant hypotension with shock presentation, holding all regimen, add back once appropriate. #10. Hyperlipidemia: Continue home statin regimen. AM FLP. #11. Seizure disorder/epilepsy: We will continue patient home with significant phenobarbital regimen orally as able however if necessary may transition to IV, also on twice daily clonazepam which likely is for mood but will hold her sedation if necessary. #12. Anxiety and depression/mood disorder/schizophrenia: We will continue patient home psychiatric regimen however with hold parameters as needed for sedation and ulceration pending renal function, including clonazepam, escitalopram, paliperidone, quetiapine. #13. Chronic COPD/asthma: Complicates presentation, as noted above maintained on BiPAP currently, wean as able, maintain on ATC duonebs, PRN albuterol, HOB, IS parameters. #14. Chronic normocytic anemia: Admission hemoglobin 1.9, MCV 97.8, baseline hemoglobin primarily 9-10, stable, continue to trend. #15. Morbid Obesity: Weight loss and lifestyle changes encouraged. #16. MARY: Usually uses CPAP nightly, currently on BiPAP as noted. #17. GERD: Will maintain on PPI. #18. DVT prophylaxis: Will maintain on heparin drip as noted. #19. CODE status: Patient PETER is her sister who is present and living will is currently in place. Discussed CODE status at length including difference between FULL code, DNR-CCA and DNR-CC status. Following discussions about the differences in these status, requested DNR-CCA, no intubation. Amenable to pressor therapy. Advanced Care Planning Face to Face Time: 16 minutes. Sepsis Attestation Sepsis Attestation: Agree w/Sepsis Date exam was performed: 08/13/24 Time exam was performed: 21:03 Possible Source of Sepsis: Pulmonary and Genitourinary Sepsis Organ Dysfunction Criteria Present: SBP < 90 mmHg or MAP < 65 mmHg, SBP decrease of more than 40 mmHg, Acute Respiratory Failure (New need for BiPAP/CPAP or MV) and Lactic Acid > 2 mmol/L Fluid Resuscitation Fluid resuscitation indicated?: Yes Fluid Resuscitation ordered: Lesser volume fluid bolus ordered Amount of fluid ordered: 2,500 Reason for lesser fluid bolus:: Concern for fluid overload Sepsis Note Date exam was performed: 08/13/24 Time exam was performed: 21:03 Sepsis Attestation: Sepsis re-evaluation was performed Response to fluids: Non Fluid responsive hypotension and Vasopressors started Charges/Coding Visit Charges Inpatient E&M: 29810 Init Hosp L3 Procedures Hospitalists Procedures: 10514 Advncd Care Plan 30 Min
[2024-08-13 19:46] LABS: Troponin T High Sens 2 HR 427 ng/L (<=14)
[2024-08-13 19:57] LABS: Allen Test Positive; Base Excess -1 mmol/L (-2 to +2); Bicarbonate 25.7 mmol/L (22-26); Blood Gas Specimen Type ART; Mode Not entered; O2 Delivery Device BiPAP; PEEP 9; PO2 98 mmHG (75-100); SITE L Radial; SO2 97 % (95-99); Total Carbon Dioxide 27 mmol/L; pCO2 50.4 mmHg (35-45); pH 7.32 (7.35-7.45)
[2024-08-13] MEDS: HEPARIN/D5w 25,000 UNITS 25,000 UNITS/250 ML IV.SOLN. 10 UNITS CONT INF (20:21)
[2024-08-13] MEDS: Heparin Injection (Vial) 5,000 UNIT/ML VIAL 4000 UNIT IV (20:22)
--- NOTE | 2024-08-13 21:04 | PCMCONS.TICU ---
HPI Consult Data Date of Consult: 08/13/24 HPI Narrative Reason for Consultation: Hypoxemic respiratory failure, septic shock HPI Narrative: SIERRA MORRISON, is a 74yo with chief complaint of fever and chills. In context, patient states she felt like she had a spell of Afib coming on from stress related to her sister undergoing colonoscopy. Otherwise reports typical flu symptoms. Living at SNF ~ 1year, nurses checked her vitals there and sent her to ED, but patient threw up in transport to ED. CUrrently denies n/v, has had poor PO intake in general in last 2 days, and has not drank much water (1/2 cup today). Feesl thirsty and denies CHF and leg swelling. No CP. Has been having sweats and chills as well. Per Onsite Hospitalist HPI: 74 y/o F w/ PMHx: Morbid obesity, Seizure disorder/epilepsy, MARY, COPD/Asthma, Hx CVA, GERD, Hypothyroidism, Chronic anemia, HTN, HLD, Rheumatoid arthritis, Anxiety and Depression/Schizophrenia, CKD stage II per prior GFR trending who presents to the [facility] ED on 08/13/2024 with history of fatigue, malaise with onset of nausea and bout of emesis while laying down earlier in the evening with onset significant dyspnea, hypoxia following with recent positive flu status Saturday (congestion, rhinorrhea, cough, fatigue) status prompting ED evaluation. Workup in the ED included T101 axillary, heart rate 97, BP initially 87/58 with MAP of 67, respiratory rate 26, initially 80% on room air with improvement to initially 86% on 6 L placed on BiPAP with BP decreased to 75/51 transiently with most recent repeat vitals heart rate 81, BP 79/60, respiratory rate 19, 94% on 70% FiO2 BiPAP, CBC with WBC 15, hemoglobin 0.9, MCV 97.8, platelets 188 with left shift and lymphopenia, coags unremarkable aside PTT 40.2, CMP with anion gap 17, BUN/creatinine 29/1.48, GFR 37, glucose 149, lactic acid 3.1, alk phos 130, troponin 317, BNP 3099, urinalysis with specific gravity 1.015, cloudy, protein 30, occult blood 50, negative nitrite, leukocyte esterase 500 however with urine WBCs 50-100 with 3+ urine bacteria, chest x-ray suspicious for bilateral venous congestion, urine culture pending per ED, blood culture x 2 pending per ED. from review of prior micro records patient does have positive previous MRSA screen 03/12/2024. In the ED patient ministered Tylenol 1000 mg p.o. x 1, cefepime 2 g IV x 1, vancomycin 2001 g IV x 1, Zofran 4 mg IV x 1 and initiated on norepinephrine drip. ED discussed case with cardiology and heparin drip was also initiated. In the ED prior to HF concerns noted she was administered 2.5L NS resuscitation. [facility] Medical History Epilepsy Hammer toes of both feet Cerebrovascular disease Age related cataract Wears glasses Wears hearing aid Rash Walker as ambulation aid Easy bruising History of diverticulitis Gastric reflux Non-smoker Shortness of breath on exertion Vericose veins History of CVA (cerebrovascular accident) Seizure disorder Thyroid disorder Rheumatoid arthritis Diverticulitis Sleep apnea COPD (chronic obstructive pulmonary disease) Diabetes mellitus type 2 in obese Benign essential hypertension Convulsion Osteoarthritis Hypothyroid TIA (transient ischemic attack) Hypercholesterolemia Anemia in chronic illness Allergic rhinitis Glaucoma Morbid obesity Peripheral venous insufficiency GERD (gastroesophageal reflux disease) Asthma Schizophrenia Depression Anxiety disorder Hyperlipidemia Hypertension Home Medications ?Medication ?Instructions ?Recorded ?Last Taken ?Type clopidogrel 75 mg tablet 75 mg PO DAILY 03/28/13 03/10/24 History hydrochlorothiazide 25 mg tablet 25 mg PO DAILY ##0 03/28/13 03/10/24 History metoprolol succinate 100 mg 100 mg PO DAILY 03/28/13 12/19/20 History tablet,extended release 24 hr paliperidone 6 mg tablet,extended 6 mg PO QHS 01/31/17 03/10/24 History release 24 hr montelukast 10 mg tablet 10 mg PO QHS #90 tabs 12/03/22 03/10/24 Rx albuterol sulfate 2.5 mg/3 mL 2.5 mg inhalation DAILY PRN 11/27/23 Unknown History (0.083 %) solution for nebulization shortness of breath or wheezing atorvastatin 20 mg tablet 20 mg PO QHS 11/27/23 03/11/24 History clonazepam 0.5 mg tablet 0.5 mg PO BID 11/27/23 03/10/24 History fluticasone propionate 220 2 inh inhalation BID 11/27/23 03/10/24 History mcg/actuation HFA aerosol inhaler latanoprost 0.005 % eye drops 1 drp ophthalmic (eye) QHS 11/27/23 03/10/24 History losartan 50 mg tablet 50 mg PO DAILY 11/27/23 03/10/24 History phenobarbital 60 mg tablet 120 mg PO 0800 11/27/23 Unknown History phenobarbital 60 mg tablet 180 mg PO SUMOWETHSA seizures 11/27/23 Unknown History polyethylene glycol 3350 17 17 g PO DAILY PRN CONSTIPATION 11/27/23 03/10/24 History gram/dose oral powder (Miralax) propylene glycol 1 %-glycerin 0.3 2 drp ophthalmic (eye) Q4H PRN dry 11/27/23 Unknown History % eye drops (Artificial Tears eye(s) (glycerin-peg)) acetaminophen 500 mg tablet 500 mg PO Q6H PRN pain 03/11/24 03/10/24 History cholecalciferol (vitamin D3) 25 50 mcg PO DAILY 03/11/24 Unknown History mcg (1,000 unit) tablet levothyroxine 200 mcg tablet 200 mcg PO QHS 03/11/24 03/10/24 History nifedipine 90 mg tablet,extended 90 mg PO DAILY 03/11/24 03/10/24 History release phenobarbital 60 mg tablet 60 mg PO TUFR seizures 03/11/24 03/10/24 History escitalopram oxalate 10 mg tablet 10 mg PO DAILY #0 tabs 03/16/24 Unknown Rx albuterol sulfate 90 mcg/actuation 2 puff inhalation Q4H PRN 08/13/24 Unknown History aerosol inhaler shortness of breath or wheezing ondansetron 4 mg disintegrating 4 mg PO Q4H PRN nausea and vomiting 08/13/24 Unknown History tablet pantoprazole 40 mg tablet,delayed 40 mg PO BID 08/13/24 Unknown History release (Protonix) quetiapine 100 mg tablet 100 mg PO QHS 08/13/24 Unknown History triamcinolone acetonide 0.1 % 1 applic topical Q8 PRN itching 08/13/24 Unknown History topical cream Allergy/AdvReac Type Severity Reaction Status Date / Time amoxicillin Allergy NEEDS Verified 03/11/24 08:36 FOLLOW-UP codeine Allergy Shortness Verified 03/11/24 08:36 of breath cyclobenzaprine (From Allergy NEEDS Verified 03/11/24 08:36 Flexeril) FOLLOW-UP dextromethorphan HBr (From Allergy Shortness Verified 03/11/24 08:36 Tylenol Cold Multi-Symptom) of breath diazepam (From Valium) Allergy Shortness Verified 03/11/24 08:36 of breath fluticasone (From Advair Allergy NEEDS Verified 03/11/24 08:36 Diskus) FOLLOW-UP Food Allergies: Uncoded Allergy Shortness Verified 03/11/24 08:36 of breath guaifenesin (From Tylenol Allergy Shortness Verified 03/11/24 08:36 Cold Multi-Symptom) of breath hydrocodone bitartrate (From Allergy Shortness Verified 03/11/24 08:36 Vicodin) of breath iodine Allergy Anaphylaxis Verified 03/11/24 08:36 Latex, Natural Rubber Allergy Shortness Verified 03/11/24 08:36 of breath morphine Allergy Shortness Verified 03/11/24 08:36 of breath NSAIDS (Non-Steroidal Allergy Shortness Verified 03/11/24 08:36 Anti-Inflamma of breath oxaprozin (From Daypro) Allergy NEEDS Verified 03/11/24 08:36 FOLLOW-UP oxycodone Allergy NEEDS Verified 03/11/24 08:36 FOLLOW-UP phenylephrine HCl (From Allergy Shortness Verified 03/11/24 08:36 Tylenol Cold Multi-Symptom) of breath phenytoin (From Dilantin) Allergy NEEDS Verified 03/11/24 08:36 FOLLOW-UP phenytoin sodium (From Allergy Shortness Verified 03/11/24 08:36 Dilantin) of breath phenytoin sodium extended Allergy Shortness Verified 03/11/24 08:36 (From Dilantin) of breath povidone-iodine (From Allergy BLISTERS Verified 03/11/24 08:36 Betadine) pseudoephedrine HCl (From Allergy Shortness Verified 03/11/24 08:36 Tylenol Cold Multi-Symptom) of breath salmeterol (From Advair Allergy NEEDS Verified 03/11/24 08:36 Diskus) FOLLOW-UP shellfish derived Allergy NEEDS Verified 03/11/24 08:36 FOLLOW-UP soap (From Betadine) Allergy BLISTERS Verified 03/11/24 08:36 tetracycline Allergy NEEDS Verified 03/11/24 08:36 FOLLOW-UP tositumomab iodine-131 Allergy NEEDS Verified 03/11/24 08:36 FOLLOW-UP muscle relaxers Allergy Shortness Uncoded 05/22/23 11:04 of breath Family History Mother CVA (cerebral vascular accident) Cancer Depression Diabetes Emphysema lung Hypertension Arthritis Father CVA (cerebral vascular accident) Cancer Depression Diabetes Emphysema lung Hypertension Arthritis Surgical History History of cholecystectomy History of tonsillectomy History of total hysterectomy History of total knee replacement History of bilateral tympanoplasty History of tubal ligation History of D&C Social History household members: none housing: [facility] Smoking Status: Never smoker second hand exposure: Yes alcohol intake: never substance use type: does not use what type of physical activity do you participate in: walking do you feel safe at home: Yes ROS ROS Narrative 10 or more systems reviewed with the patient who denies all else besides in HPI. Objective Data Objective Data Vital Signs: Vital Signs Last response Temperature 37.6 C H 08/13/24 20:49 Temperature Source Core 08/13/24 20:49 Pulse Rate 82 08/13/24 20:49 Respiratory Rate 18 08/13/24 20:49 Respiratory Effort Short of Breath 08/13/24 15:38 Respiratory Pattern Normal 08/13/24 20:46 Blood Pressure 99/67 08/13/24 20:49 Blood Pressure Mean 77 08/13/24 20:49 Blood Pressure Source Monitor 08/13/24 20:49 Blood Pressure Position Semi-Fowlers 08/13/24 20:49 Pulse Ox 96 08/13/24 20:49 Oxygen Delivery Method Bi-pap 08/13/24 20:49 Oxygen Flow Rate (L/min) 15 08/13/24 16:38 Fraction of Inspired Oxygen (FIO2) 50 08/13/24 20:46 I&O: I&O Last 24 Hours 08/12/24 08/13/24 08/13/24 23:59 11:59 23:59 Intake Total 3140 / 3140 Balance 3140 / 3140 I&O: Total Stay 08/13/24 15:37 thru 08/13/24 20:49 Intake Total 3140 Balance 3140 Current Meds Ordered / Administered: Current meds ordered / Administered Generic Name Dose Route Start Last Admin Trade Name Freq PRN Reason Stop Dose Admin Acetaminophen 650 mg 08/13/24 20:54 Acetaminophen 325 Mg Tablet PO Q4H PRN PRN Fever, pain 1-10/10 Acetaminophen 650 mg 08/13/24 20:54 Acetaminophen 650 Mg Suppository RC Q4H PRN PRN Fever, pain 1-10 Al Hydroxide/Mg Hydroxide 30 ml 08/13/24 20:54 Mag Hydrox/Al Hydrox/Simeth 30 Ml Udc PO Q6H PRN PRN Gastric Burning Albuterol Sulfate 2.5 mg 08/13/24 20:54 Albuterol 2.5 Mg/3 Ml Vial.Neb. INHALATION Q2H PRN PRN Dyspnea, wheezing Albuterol/Ipratropium 3 ml 08/13/24 20:54 Ipratropium/Albuterol Sulfate 3 Ml Ampul.Neb INHALATION Q4HWA.RT JEFFREY Atorvastatin Calcium 20 mg 08/13/24 22:00 Atorvastatin Calcium 20 Mg Tablet PO QHS [facility] Calamine/Phenol 1 applic 08/13/24 22:00 Menthol/Lanolin/Calamine/Znox 113 Gm Tube TOPICAL 4X/DAY [facility] Protocol Clonazepam 0.5 mg 08/13/24 22:00 Clonazepam 0.5 Mg Tablet PO BID [facility] Clopidogrel Bisulfate 75 mg 08/14/24 10:00 Clopidogrel Bisulfate 75 Mg Tablet PO DAILY [facility] Escitalopram Oxalate 10 mg 08/14/24 10:00 Escitalopram Oxalate 10 Mg Tablet PO DAILY [facility] Heparin Sodium (Porcine) 0 unit 08/13/24 21:05 Heparin Injection (Vial) 5,000 Unit/Ml Vial IV UD PRN dose adjustment Protocol Sodium Chloride 100 mls @ 15 mls/hr 08/13/24 20:51 IV .Q6H40M PRN Saline Flush Sodium Chloride 100 mls @ 15 mls/hr 08/13/24 20:51 IV .Q6H40M PRN Additional IVPB Infusion Norepinephrine Bitartrate 8 mg 250 mls @ 9.375 mls/hr 08/13/24 20:54 / Sodium Chloride CONT INF .[id number] [facility] Protocol 5 MCG/MIN Heparin Sodium/Dextrose 25,000 units in 250 mls @ 18 mls/hr 08/13/24 20:54 CONT INF .[id number] [facility] Protocol As Directed Vancomycin IV-PHARMACY TO DOSE 500 mls @ 250 mls/hr 08/13/24 20:54 1 each/ Sodium Chloride IV X1 PRN Rx to Dose Protocol Ceftriaxone Sodium 2 gm/ 50 mls @ 100 mls/hr 08/14/24 10:00 Sodium Chloride IV 08/21/24 10:01 Q24 JEFFREY Metronidazole 500 mg in 100 mls @ 100 mls/hr 08/13/24 22:00 Flagyl IV Q8 [facility] Latanoprost 1 drp 08/13/24 22:00 Latanoprost 0.005% 1 Bottle OPHTHALMIC QHS JEFFREY Melatonin 3 mg 08/13/24 20:54 Melatonin 3 Mg Tablet PO QHS PRN PRN INSOMNIA Montelukast Sodium 10 mg 08/13/24 22:00 Montelukast 10 Mg Tablet PO QHS [facility] Non-Formulary Medication 2 drp 08/13/24 20:54 Propylene Glycol-Glycerin [Artificial Tears(Glycerin-Peg)] OPHTHALMIC Q4H PRN dry eye(s) Non-Formulary Medication 17 gm 08/13/24 20:54 Polyethylene Glycol 3350 [Miralax] PO DAILY PRN CONSTIPATION Non-Formulary Medication 60 mg 08/14/24 20:30 Phenobarbital PO TUFR JEFFREY Non-Formulary Medication 180 mg 08/13/24 20:54 Phenobarbital PO SUMOWETHSA [facility] Non-Formulary Medication 120 mg 08/14/24 08:00 Phenobarbital PO 0800 [facility] Non-Formulary Medication 6 mg 08/13/24 22:00 Paliperidone PO QHS [facility] Non-Formulary Medication 200 mcg 08/13/24 22:00 Levothyroxine PO QHS [facility] Non-Formulary Medication 2 inh 08/13/24 22:00 Fluticasone Propionate INHALATION BID [facility] Nystatin 1 applic 08/13/24 22:00 Nystatin Powder 15gm Bottle TOPICAL TID [facility] Protocol Ondansetron HCl 4 mg 08/13/24 20:54 Ondansetron 4 Mg/2 Ml Vial IV Q8H PRN PRN NAUSEA/VOMITING Pantoprazole Sodium 40 mg 08/13/24 22:00 Pantoprazole Sodium 40 Mg Tablet PO BID [facility] Prochlorperazine Edisylate 5 mg 08/13/24 20:54 Prochlorperazine 10 Mg/2 Ml Vial IV Q4H PRN PRN Breakthrough Nausea/Vomiting Quetiapine Fumarate 100 mg 08/13/24 22:00 Quetiapine 100 Mg Tablet PO QHS JEFFREY Protocol Senna/Docusate Sodium 2 tablet 08/13/24 20:54 Senna/Docusate Sodium 1 Tablet PO BID PRN PRN Constipation Sodium Chloride 10 - 40 ml 08/13/24 20:51 0.9% Saline Lock 10 Ml Syringe IV UD PRN SALINE FLUSH Physical Exam Const alert, oriented x3 and no apparent distress General Appearance: cooperative, well developed and ill appearing HEENT normocephalic and head/scalp atraumatic Throat: posterior oropharynx normal Eyes PERRL, EOMs intact bilaterally, conjunctivae normal and no scleral icterus Neck full ROM and no JVD Lymph Lymphatic: no lymphadenopathy noted Chest inspection of chest normal Resp normal respiratory effort and no use of accessory muscles Effort and Inspection: able to speak in complete sentences Auscultation: clear to auscultation bilaterally Cardio regular rate and regular rhythm GI normal to inspection, nondistended, normoactive bowel sounds, soft to palpation and non-tender Back/Spine no CVA tenderness Extremity no clubbing, cyanosis or edema Skin no rashes or lesions noted Neuro oriented x3, CN's II-XII intact bilaterally, moves all extremities and no focal motor deficits Psych cooperative and affect normal Speech: normal speech Lab / Micro Data 08/13/24 15:50 08/13/24 15:50 Labs: Laboratory Results - last 24 hr 08/13/24 15:50: WBC 15.0 H, RBC 3.70 L, Hgb 11.9 L, Hct 36.2 L, MCV 97.8, MCH 32.2 H, MCHC 32.9, RDW Std Deviation 56.1 H, RDW Coeff of [place] 15.8 H, Plt Count 188, MPV 10.5, Immature Gran % (Auto) 0.300, Neut % (Auto) 90.8 H, Lymph % (Auto) 3.6 L, Grainger % (Auto) 5.2, Eos % (Auto) 0.0, Baso % (Auto) 0.1, Absolute Neuts (auto) 13.6 H, Absolute Lymphs (auto) 0.54 L, Nucleated RBC % 0.1, PT 14.8, INR 1.1, APTT 40.2 H, Sodium 138, Potassium 4.3, Chloride 98, Carbon Dioxide 23.7, Anion Gap 17 H, BUN 29 H, Creatinine 1.48 H, Estim Creat Clear Calc 45.10 L, Est GFR (MDRD) Non-Af 37 L, BUN/Creatinine Ratio 19.5, Glucose 149 H, Lactic Acid 3.1 H*, Calcium 9.2, Total Bilirubin 0.27, AST 27, ALT 17, Alkaline Phosphatase 130 H, Troponin T High Sens 317 H*, NT pro BNP II 3099 H, Total Protein 7.4, Albumin 3.9, Globulin 3.5, Albumin/Globulin Ratio 1.1 08/13/24 16:10: Urine Color Yellow, Urine Clarity Sl. Cloudy, Urine pH 6.0, Ur Specific [place] 1.015, Urine Protein 30 H, Urine Glucose (UA) Normal, Urine Ketones Negative, Urine Occult Blood 50 H, Urine Nitrite Negative, Urine Bilirubin Negative, Urine Urobilinogen Normal, Ur Leukocyte Esterase 500 H, Urine RBC 0-5 SEEN, Urine WBC 50-100 SEEN, Ur Squamous Epith Cells 0-5 SEEN, Urine Bacteria 3+, Urine Mucus 0 SEEN 08/13/24 19:12: Troponin T Hi Sens 2 Hr 427 H* ABG Data ABG results: ABG 08/13/24 19:53 Specimen Type ART Sample Site L Radial pH 7.32 L Bicarbonate Actual 25.7 Total CO2 27 Base Excess -1 O2 Saturation 97 O2 % 70.0 ABG pCO2 50.4 H ABG pO2 98 [place] Test Positive O2 Delivery Device BiPAP Vent Mode Not entered POC PEEP 9 Imaging Radiology Impression Chest X-Ray 08/13/24 16:35 IMPRESSION: Suspicion of bilateral pulmonary venous congestion. Reading Location: [facility] CXR reviewed personally Assessment and Plan . Assessment and plan: ICU Problem List: Aspiration of gastric contents Acute hypoxemic respiratory failure Acute hypercapnic respiratory failure Hypoventilation Septic shock Urinary tract infection Pulmonary edema Flu infection AC Plan: NPO and aspiration precautions Recommend going back to cefepime for broader coverage of aspiration (GNR) and UTI ECHOcardiogram recommended to assess IVC and LV function Would still recommend volume expansion with crystalloid or albumin 2/2 high lactic acid, ~500-1000mL total Dimer and if positive, CT PE protocol given enlarged cardiac silhouette and risk factors for VTE Within tamiflu window, need renal adjustment to dose Check TSH and reflex T4 Trend LA q4h until <2 Paresh Brunson MD PCCM [facility] Critical Care Time: The entirety of this encounter was done via Telemedicine
[2024-08-13] MEDS: HEPARIN/D5w 25,000 UNITS 25,000 UNITS/250 ML IV.SOLN. 18 UNITS CONT INF (21:41)
[2024-08-13 21:45] LABS: Magnesium 1.7 mg/dL (1.5-2.2); Phosphorus 3.3 mg/dL (2.7-4.5)
--- NOTE | 2024-08-13 21:49 | ECHOCS_ITS ---
Reason For Study Reason For Study: CHF Procedure This was a 2D Doppler, Color Flow transthoracic echocardiogram. The patient was scanned supine. Unable to reposition patient due to morbid obesity. The study was technically difficult. The study was technically limited. Contrast injection was performed. Exam performed portable in ICU/CCU. Left Ventricle Normal LV size. Mild concentric left ventricular hypertrophy. The left ventricular ejection fraction is 60 %. Stage 1 diastolic dysfunction. Right Ventricle Moderately dilated RV with moderate systolic dysfunction. Atria The left atrium is moderately enlarged. The right atrium is not well visualized. Mitral Valve Mild (1+) mitral valve insufficiency. Tricuspid Valve Mild to moderate (1-2+) tricuspid valve insufficiency. Right ventricular systolic pressure estimated to be 50 mmHg. Aortic Valve The aortic valve is not well visualized in the short axis view. There is no aortic stenosis. No aortic valve insufficiency. Pulmonic Valve The pulmonic valve is not well visualized. Great Vessels Normal sized aortic root. Pericardium/Pleural No pericardial effusion. Medication Diluted definity 2.5ml given slow IV push to enhance endocardial definition. MMode/2D Measurements & Calculations LVIDd: 4.7 cm IVSd: 1.2 cm Ao root diam: 3.4 cm LVIDs: 3.5 cm LVPWd: 1.2 cm FS: 25.7 % LAV(MOD-sp4): 64.0 ml LVAd ap4: 22.2 cm2 SV(MOD-sp4): 30.9 ml LVLd ap4: 6.8 cm SI(MOD-sp4): 13.3 ml/m2 EDV(MOD-sp4): 60.3 ml EDV(sp4-el): 61.5 ml LVAs ap4: 14.8 cm2 LVLs ap4: 6.3 cm ESV(MOD-sp4): 29.4 ml ESV(sp4-el): 29.5 ml EF(MOD-sp4): 51.3 % EF(sp4-el): 52.0 % SV(sp4-el): 32.0 ml LA A4 area: 22.5 cm2 LA dimension(2D): 4.7 cm TAPSE: 2.1 cm Doppler Measurements & Calculations MV E max brenden: 101.7 cm/sec Lat Peak E' Brenden: 8.7 cm/sec Med Peak E' Brenden: 8.6 cm/sec MV A max brenden: 150.3 cm/sec E/E' lat: 11.7 E/E' med: 11.8 MV E/A: 0.68 MV V2 max: 153.1 cm/sec Ao V2 max: 210.3 cm/sec LV V1 max: 118.0 cm/sec MV max P.4 mmHg Ao max P.7 mmHg LV V1 max P.6 mmHg MV V2 mean: 97.1 cm/sec Ao V2 mean: 149.1 cm/sec LV V1 mean P.3 mmHg MV mean P.3 mmHg Ao mean P.8 mmHg LV V1 mean: 87.1 cm/sec MV V2 VTI: 33.4 cm Ao V2 VTI: 40.4 cm LV V1 VTI: 24.0 cm AV (velocity ratio): 0.59 PA V2 max: 93.1 cm/sec TR max brenden: 323.3 cm/sec PA V2 mean: 57.8 cm/sec TR max P.8 mmHg PA V2 VTI: 17.3 cm ECHO/Echo Complete W/ Contrast Interpretation Summary Technically difficult study secondary to body habitus with suboptimal images. Mild concentric left ventricular hypertrophy. The left ventricular ejection fraction is 60 %. Stage 1 diastolic dysfunction. Moderately dilated RV with moderate systolic dysfunction. The left atrium is moderately enlarged. Mild (1+) mitral valve insufficiency. Mild to moderate (1-2+) tricuspid valve insufficiency. Right ventricular systolic pressure estimated to be 50 mmHg. Ordering Physician: Paresh Brunson Referring Physician: Panda Mota Performed By: Ghazal Newman, TIFFANI, RVT
--- NOTE | 2024-08-13 22:09 | PCM.RX.CS ---
Consult Antibiotic Management Pharmacy has been consulted to manage selected antibiotic: Vancomycin Type of Intervention Type of Consult: New start Labs Labs: Sodium 138 mmol/L (133-145) 08/13/24 15:50 Potassium 4.3 mmol/L (3.3-5.1) 08/13/24 15:50 Chloride 98 mmol/L (98-108) 08/13/24 15:50 Carbon Dioxide 23.7 mmol/L (21.0-32.0) 08/13/24 15:50 Anion Gap 17 (5-15) H 08/13/24 15:50 BUN 29 mg/dL (4-19) H 08/13/24 15:50 Creatinine 1.48 mg/dL (0.70-1.20) H 08/13/24 15:50 Est GFR (MDRD) Non-Af 37 (>60) L 08/13/24 15:50 BUN/Creatinine Ratio 19.5 RATIO (10-20) 08/13/24 15:50 Glucose 149 mg/dL (70-99) H 08/13/24 15:50 Dosing Weight Weight used for dosin.8 kg Estimated Creatinine Clearance Estimated Creatinine Clearance: 45.1 Goal Trough Goal Trough: 15-20 mcg/mL Pharmacy Plan for Drug Dosing Pharmacy Plan for Drug Dosing: Pharmacy Service will continue to monitor and adjust dosing as required. 2000MG GIVEN IN ER 08/13 @ 2601. START 1000MG Q12H AND DRAW TROUGH PRIOR TO 4TH DOSE Follow-Up Labs Follow-Up Labs: Trough: Vancomycin Date/Time Labs Ordered Labs to be done on [date and time ordered]: 08/15 @ 9879
[2024-08-13] MEDS: Latanoprost 0.005% 1 Bottle 1 DRP OPHTHALMIC (22:43)
[2024-08-13] MEDS: Menthol/Lanolin/Calamine/Znox 113 GM Tube 1 APPLIC TOPICAL (22:43)
[2024-08-13] MEDS: metroNIDAZOLE 500 MG/100 ML BAG 100 MG IV (22:44)
[2024-08-13] MEDS: Atorvastatin Calcium 20 MG Tablet PO (22:47)
[2024-08-13] MEDS: Montelukast 10 MG Tablet PO (22:47)
[2024-08-13] MEDS: Levothyroxine 100 MCG Tablet 200 MCG PO (22:47)
[2024-08-13] MEDS: Pantoprazole Sodium 40 MG Tablet PO (22:47)
[2024-08-13] MEDS: QUEtiapine 100 MG Tablet PO (22:47)
[2024-08-13] MEDS: LACTATED RINGERS 500 ML 999 ML IV (22:49)
[2024-08-13 22:53] LABS: Troponin T High Sens 4 HR 467 ng/L (<=14)
[2024-08-13] MEDS: Ipratropium/Albuterol Sulfate 3 ML AMPUL.NEB INHALATION (22:57)
[2024-08-13 23:34] LABS: D-Dimer Quantitative (DVT/PE) 1.43 FEU/ug/m (0.27-0.49)
[2024-08-13 23:54] LABS: Lactic Acid 1.8 mmol/L (0.0-2.0)
[2024-08-14] VITALS (18 sets, daily range): BP systolic 95–143; BP diastolic 63–80; PULSE 66–90; RESP 12–23; TEMP 36.6–37.6; O2SAT 91–98; BMI 27.9
--- NOTE | 2024-08-14 00:10 | VDLE_ITS ---
Reason For Study Reason For Study: Elevated D Dimer RIGHT LEFT GSV is normal. GSV is normal. CFV is compressible, spontaneous, phasic, competent CFV is compressible, spontaneous, phasic, competent, and demonstrates normal augmentation. and demonstrates normal augmentation. FV is compressible, spontaneous, phasic, competent FV is compressible, spontaneous, phasic, competent and demonstrates normal augmentation. and demonstrates normal augmentation. Unable to visualize mid/dist FV Unable to acquire compressions mid and dist FV but Unable to acquire compression on POP V but flow is flow is visualized in color and pulsed wave doppler. visualized in pulsed wave and color doppler. POP V is compressible, spontaneous, and phasic. Unable to visualize T/P Trunk. T/P Trunk is compressible. PTV is compressible. PTV is compressible. RT PerV is compressible. LT PerV is compressible. Procedure This is a venous duplex using B-mode, color flow and spectral Doppler. Exam performed portable in ICU/CCU. The exam was of poor technical quality due to Edema, patient body habitus, patient positioning, patient intolerance to compressions. Limited views were obtained. A preliminary report was called and/or faxed to [facility]. VL/Venous Duplex US - [place] Extrem Interpretation Summary Deep veins of the bilateral lower extremities are patent and compressible segme ntally. There is no evidence of bilateral lower extremity deep vein thrombosis. The bilateral great saphenous veins appea r patent and compressible segmentally. Limited study Ordering Physician: Ibeth Parker Referring Physician: Panda Mota Performed By: Corona Givens RVT
[2024-08-14 03:03] LABS: Absolute Neutrophil Count 11.3 X10^3/uL (2.0-7.7); Basophil# 0.02 X10^3/uL; Basophil% 0.2 % (0-1); Eosinophil# 0.03 X10^3/uL; Eosinophils% 0.2 % (0-5); Hematocrit 31.8 % (37-47); Hemoglobin 10.2 g/dL (12.0-15.0); Lymphocyte % 5.5 % (19-41); Mean Corp Hgb Conc 32.1 g/dL (32-36); Mean Corpuscular Hgb 31.9 pg (27.0-32.0); Mean Corpuscular Volume 99.4 fL (81-99); Mean Platelet Vol. 10.6 fl (6.2-12.0); Monocyte# 0.72 X10^3/uL; Monocyte% 5.6 % (0-10); NRBC Flagged by Analyzer 0 % (0-5); Neutrophil # 11.27 X10^3/uL (2.7-7.7); Platelet Count 145 K/mm3 (150-450); RBC Distribution Width CV 15.9 % (11.6-14.6); RBC Distribution Width SD 58.2 fl (35.1-43.9); White Blood Count 12.8 K/mm3 (4.4-11.0)
[2024-08-14 03:48] LABS: Partial Thromboplast Time > 200.0 Seconds (24.1-36.2)
[2024-08-14 03:50] LABS: Cholesterol 183 mg/dL (<=200); High Density Lipoprotein 99 mg/dL; Low Density Lipoprotein Calc. 77 mg/dL; Triglycerides 38 mg/dL; Very Low Density Lipoprotein 8 mg/dL (5-40); cholesterol:hdl ratio screen 1.85
[2024-08-14 04:13] LABS: ALB/GLOB Ratio 1.1 RATIO (0.9-2.4); AST(SGOT) 38 U/L (<=31); Alanine Aminotransfer ALT/SGPT 22 U/L (<=34); Albumin, Serum 3.7 g/dL (3.4-4.8); Alkaline Phosphatase 109 U/L (35-104); Anion Gap 16 (5-15); BUN 33 mg/dL (4-19); BUN/Creat Ratio 21.5 RATIO (10-20); Calcium,Total 8.4 mg/dL (7.6-11.0); Carbon Dioxide 22.8 mmol/L (21.0-32.0); Chloride 101 mmol/L (98-108); Creatinine, Serum 1.55 mg/dL (0.70-1.20); EST Glomerular Filtration Rate 35 (>60); Estimated Creatinine Clearance 43.56 ml/min (50-250); Globulin 3.3 g/dL (2.2-4.2); Glucose 114 mg/dL (70-99); Potassium 4.5 mmol/L (3.3-5.1); Sodium Level 140 mmol/L (133-145); Total Bilirubin < 0.15 mg/dL (0.00-1.30)
[2024-08-14] MEDS: metroNIDAZOLE 500 MG/100 ML BAG 100 MG IV ×3 (05:11→23:49)
[2024-08-14] MEDS: Vancomycin IV 1,000 MG/200 ML BAG 200 MG IV ×2 (06:01→17:41)
--- NOTE | 2024-08-14 07:04 | PN.HOSP_ITS ---
Reason for Visit Reason for Visit: Diagnoses Sepsis, unspecified organism (08/13/24) Severe sepsis with septic shock (08/13/24) Objective Data Objective Data Vital Signs: Vital Signs Temp Pulse Resp BP Pulse Ox O2 Del Method O2 Flow Rate 99.3 F H 67 16 108/74 96 Bi-pap 15 08/14/24 04:00 08/14/24 06:00 08/14/24 06:00 08/14/24 06:00 08/14/24 06:00 08/14/24 06:00 08/13/24 16:38 FiO2 40 08/14/24 04:46 Oxygen Flow Rate (L/min) 15 Oxygen Delivery Method Bi-pap Weight: 69.3 kg Body Mass Index (BMI) 27.9 Intake & Output: Intake and Output for Last 24 Hours 08/12/24 08/13/24 08/14/24 23:59 23:59 23:59 Intake Total 3803.92 / 3803.92 410.4 / 410.4 Output Total 600 / 600 Balance 3803.92 / 3653.92 -189.6 / -189.6 Lab / Micro Data 08/14/24 02:55 08/14/24 02:55 Labs: Laboratory Results - last 24 hr 08/13/24 15:50: WBC 15.0 H, RBC 3.70 L, Hgb 11.9 L, Hct 36.2 L, MCV 97.8, MCH 32.2 H, MCHC 32.9, RDW Std Deviation 56.1 H, RDW Coeff of Piedad 15.8 H, Plt Count 188, MPV 10.5, Immature Gran % (Auto) 0.300, Neut % (Auto) 90.8 H, Lymph % (Auto) 3.6 L, [place] % (Auto) 5.2, Eos % (Auto) 0.0, Baso % (Auto) 0.1, Absolute Neuts (auto) 13.6 H, Absolute Lymphs (auto) 0.54 L, Nucleated RBC % 0.1, PT 14.8, INR 1.1, APTT 40.2 H, Sodium 138, Potassium 4.3, Chloride 98, Carbon Dioxide 23.7, Anion Gap 17 H, BUN 29 H, Creatinine 1.48 H, Estim Creat Clear Calc 45.10 L, Est GFR (MDRD) Non-Af 37 L, BUN/Creatinine Ratio 19.5, Glucose 149 H, Lactic Acid 3.1 H*, Calcium 9.2, Phosphorus 3.3, Magnesium 1.7, Total Bilirubin 0.27, AST 27, ALT 17, Alkaline Phosphatase 130 H, Troponin T High Sens 317 H*, NT pro BNP II 3099 H, Total Protein 7.4, Albumin 3.9, Globulin 3.5, Albumin/Globulin Ratio 1.1 08/13/24 16:10: Urine Color Yellow, Urine Clarity Sl. Cloudy, Urine pH 6.0, Ur Specific [place] 1.015, Urine Protein 30 H, Urine Glucose (UA) Normal, Urine Ketones Negative, Urine Occult Blood 50 H, Urine Nitrite Negative, Urine Bilirubin Negative, Urine Urobilinogen Normal, Ur Leukocyte Esterase 500 H, Urine RBC 0-5 SEEN, Urine WBC 50-100 SEEN, Ur Squamous Epith Cells 0-5 SEEN, Urine Bacteria 3+, Urine Mucus 0 SEEN 08/13/24 19:12: Troponin T Hi Sens 2 Hr 427 H* 08/13/24 22:01: Troponin T Hi Sens 4Hr 467 H* 08/13/24 23:07: D-Dimer Quant (PE/DVT) 1.43 H*, Lactic Acid 1.8 08/14/24 02:55: WBC 12.8 H, RBC 3.20 L, Hgb 10.2 L, Hct 31.8 L, MCV 99.4 H, MCH 31.9, MCHC 32.1, RDW Std Deviation 58.2 H, RDW Coeff of Piedad 15.9 H, Plt Count 145 L, MPV 10.6, Immature Gran % (Auto) 0.500, Neut % (Auto) 88.0 H, Lymph % (Auto) 5.5 L, [place] % (Auto) 5.6, Eos % (Auto) 0.2, Baso % (Auto) 0.2, Absolute Neuts (auto) 11.3 H, Absolute Lymphs (auto) 0.70 L, Nucleated RBC % 0, APTT > 200.0 H*, Sodium 140, Potassium 4.5, Chloride 101, Carbon Dioxide 22.8, Anion Gap 16 H, BUN 33 H, Creatinine 1.55 H, Estim Creat Clear Calc 43.56 L, Est GFR (MDRD) Non-Af 35 L, BUN/Creatinine Ratio 21.5 H, Glucose 114 H, Calcium 8.4, Total Bilirubin < 0.15, AST 38 H, ALT 22, Alkaline Phosphatase 109 H, Total Protein 7.0, Albumin 3.7, Globulin 3.3, Albumin/Globulin Ratio 1.1, Triglycerides 38, Cholesterol 183, LDL Cholesterol, Calc 77, VLDL Cholesterol 8, HDL Cholesterol 99, Cholesterol/HDL Ratio 1.85, TSH 1.240 Micro: Microbiology 08/13/24 Unknown Mucosa - Nasopharyngeal SARS-CoV-2, Influenza & RSV (PCR) - Final 08/13/24 22:01 Nasal Secretion MRSA (PCR) - Final 08/13/24 22:01 Urine Catheter - Catheter Legionella Antigen - Final 08/13/24 22:01 Urine Catheter - Catheter Streptococcus pneumoniae Antigen (M - Final ABG Data ABG results: ABG 08/13/24 19:53 Specimen Type ART Sample Site L Radial pH 7.32 L Bicarbonate Actual 25.7 Total CO2 27 Base Excess -1 O2 Saturation 97 O2 % 70.0 ABG pCO2 50.4 H ABG pO2 98 [place] Test Positive O2 Delivery Device BiPAP Vent Mode Not entered POC PEEP 9 Radiography Diagnostic Testing: Radiology Impression Chest X-Ray 08/13/24 16:35 IMPRESSION: Suspicion of bilateral pulmonary venous congestion. Reading Location: [place] [address] Physical Exam Narrative GENERAL: Patient appears ill looking HEENT: Atraumatic; normocephalic EYES; Anicteric, Normal Conjunctiva NECK; supple, normal thyroid, RESPIRATORY: Diminished to auscultation with bilateral rhonchi CARDIOVASCULAR: Regular S1 S2, tachycardic GI: soft, normoactive bowel sounds, : No Renal angle tenderness; EXTREMITIES: edema, no clubbing, MUSCULOSKELETAL: no muscle wasting NEURO: Awake; no lateralizing signs. SKIN: No Rash PSYCH; Flat affect Assessment & Plan Assessment/Plan (1) Septic shock: PLAN: Plan Patient is a 74-year-old lady resident at [facility] who was brought to the emergency department with shortness of breath. She was reported to have vomited and route with concern for aspiration chest x-ray obtained on admission demonstrated bilateral pulmonary venous congestion. An assessment of acute hypoxic respiratory failure was made patient started on BiPAP admitted to the intensive care unit for further management 1. Acute hypoxic respiratory failure ? 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 Septic shock ? Secondary to a combination of acute cystitis as well as recent influenza A infection with suspected bacterial pneumonia. Patient was started on broad- spectrum antibiotic therapy after cultures have been initiated. Patient was not resuscitated with IV fluids per protocol given concern for fluid overload status 3. Acute congestive heart failure?unspecified ? Patient management noninvasive ventilation BiPAP Lasix was held off given concern for relatively low blood pressure. Serial cardiac enzymes and echo ordered and cardiology consulted by admitting physician 4. Elevated troponin ? Suspected to be secondary to demand ischemia from above echo has been ordered subsequent serial cardiac enzymes ordered 5. Elevated D-dimer ? Patient was started on heparin CTA was not ordered given patient acute kidney injury most show patient has allergy to dye plan is for patient to undergo evaluation VQ scan as well as lower extremity duplex 6. Acute kidney injury ? Creatinine from 06/04/2024 was 0.82 creatinine on admission was 1.48 creatinine did bump up to 1.55. Patient AC suspected secondary to ischemic ATN 7. Anemia ? Secondary to chronic disorder monitoring H&H and transfuse if patient becomes symptomatic or hemoglobin falls below 7 8. Hypothyroidism ? Patient is on levothyroxine home dose continued 9. Dyslipidemia ?Patient is on statin therapy, continued at home dose 10. Essential hypertension ? Patient is on losartan as well as HCTZ held given relatively low blood pressure as well as impaired kidney function 11. GERD ? Patient is on PPI 12. Schizophrenia ? Plan is to continue patient antipsychotic medications 13. Seizure disorder controlled on phenobarbital plan is to resume following med rec 14. COPD/asthma ? Bronchodilator treatment as needed 15. DVT prophylaxis ? Patient is on heparin Time spent in the patient's overall evaluation,decision-making process, review of diagnostic data, adjustment of management, discussion with other providers, nursing nursing and ancillary staff involved in patient's care documentation, 55 Minutes Charges/Coding Visit Charges Inpatient E&M: 70788 Subs Hosp L3
[2024-08-14] MEDS: Budesonide Respules 0.5 MG/2 ML AMPUL.NEB. INHALATION ×2 (07:10→19:55)
[2024-08-14] MEDS: Ipratropium/Albuterol Sulfate 3 ML AMPUL.NEB INHALATION ×3 (07:10→19:55)
--- NOTE | 2024-08-14 07:46 | PN.CC_ITS ---
Assessment & Plan Assessment/Plan (1) Sepsis: PLAN: Plan RECOMMENDATIONS: 1. Wean supplemental oxygen to maintain saturations at or above 90%. 2. Continue scheduled bronchodilators. 3. Empiric antimicrobials. 4. Encourage incentive spirometer use and mobilize patient as tolerated. 5. The patient is medically stable for transfer out of the intensive care unit. 6. Will sign off from a critical care perspective. IMPRESSIONS: 1. Hypotension Appears to be secondary to intravascular volume depletion, as the patient is hemodynamically stable at the present time, after having received IV fluid resuscitation. She never required vasopressor support. She does have a recent diagnosis of influenza A and has been maintained on antimicrobials for suspected aspiration pneumonia and UTI. 2. Shortness of breath and hypoxemia Clinical concern for possible CHF and aspiration pneumonia as precipitating etiology. Antimicrobials have been initiated. The patient will be continued on supplemental oxygen to maintain saturations at or above 90%. Maintain aspiration precautions. Continue bronchodilator therapy as ordered. 3. NSTEMI Most likely secondary to demand ischemia in the setting of numbers 1 and 2. Echocardiogram revealed intact systolic function. Cardiology is following to assist with medical management. 4. History of mild intermittent asthma/obstructive sleep apnea/diabetes mellitus/history of schizophrenia Complicates care, management, recovery and prognosis. Continue supportive measures as noted above. This note was generated with [employer] dictation software. It may contain incorrect words, spelling, and punctuation that were not noted in checking the note before signing. Subjective Subjective The patient was seen and examined at the bedside this morning. Events from the last 24 hours have been reviewed. The patient is currently afebrile, hemodynamically stable and maintaining appropriate oxygen saturations on 4 L/min nasal cannula. The patient is currently documented to be overall net +3.4 L for the hospitalization. White blood cell count is elevated at 13,000. Hemoglobin and platelet count are stable. Creatinine was noted to be 1.5. BNP is elevated at 3934. Objective Data Objective Data The patient's most recent lab work, culture data and imaging studies have all been personally reviewed. Surface echocardiogram demonstrated normal LV size with mild concentric LVH and an ejection fraction of 60%. Stage I diastolic dysfunction was noted. Right ventricular systolic pressure was estimated to be 50 mmHg. COVID, influenza and RSV PCR's were negative. Strep and urine Legionella antigens were negative. Blood, urine and sputum cultures are pending. Vital Signs: Vital Signs Temp Pulse Resp BP Pulse Ox O2 Del Method O2 Flow Rate 99.3 F H 75 14 123/80 H 95 Bi-pap 15 08/14/24 04:00 08/14/24 07:00 08/14/24 07:00 08/14/24 07:00 08/14/24 07:00 08/14/24 07:00 08/13/24 16:38 FiO2 40 08/14/24 04:46 Oxygen Flow Rate (L/min) 15 Oxygen Delivery Method Bi-pap Weight: 152 lb 12.485 oz Body Mass Index (BMI) 27.9 Intake & Output: Intake and Output for Last 24 Hours 08/12/24 08/13/24 08/14/24 23:59 23:59 23:59 Intake Total 3803.92 / 3803.92 410.4 / 410.4 Output Total 600 / 600 Balance 3803.92 / 3653.92 -189.6 / -189.6 Lab / Micro Data Attestation: I reviewed the patient's lab results. 08/14/24 02:55 08/14/24 02:55 Labs: Laboratory Results - last 24 hr 08/13/24 15:50: WBC 15.0 H, RBC 3.70 L, Hgb 11.9 L, Hct 36.2 L, MCV 97.8, MCH 32.2 H, MCHC 32.9, RDW Std Deviation 56.1 H, RDW Coeff of Piedad 15.8 H, Plt Count 188, MPV 10.5, Immature Gran % (Auto) 0.300, Neut % (Auto) 90.8 H, Lymph % (Auto) 3.6 L, [place] % (Auto) 5.2, Eos % (Auto) 0.0, Baso % (Auto) 0.1, Absolute Neuts (auto) 13.6 H, Absolute Lymphs (auto) 0.54 L, Nucleated RBC % 0.1, PT 14.8, INR 1.1, APTT 40.2 H, Sodium 138, Potassium 4.3, Chloride 98, Carbon Dioxide 23.7, Anion Gap 17 H, BUN 29 H, Creatinine 1.48 H, Estim Creat Clear Calc 45.10 L, Est GFR (MDRD) Non-Af 37 L, BUN/Creatinine Ratio 19.5, Glucose 149 H, Lactic Acid 3.1 H*, Calcium 9.2, Phosphorus 3.3, Magnesium 1.7, Total Bilirubin 0.27, AST 27, ALT 17, Alkaline Phosphatase 130 H, Troponin T High Sens 317 H*, NT pro BNP II 3099 H, Total Protein 7.4, Albumin 3.9, Globulin 3.5, Albumin/Globulin Ratio 1.1 08/13/24 16:10: Urine Color Yellow, Urine Clarity Sl. Cloudy, Urine pH 6.0, Ur Specific [place] 1.015, Urine Protein 30 H, Urine Glucose (UA) Normal, Urine Ketones Negative, Urine Occult Blood 50 H, Urine Nitrite Negative, Urine Bilirubin Negative, Urine Urobilinogen Normal, Ur Leukocyte Esterase 500 H, Urine RBC 0-5 SEEN, Urine WBC 50-100 SEEN, Ur Squamous Epith Cells 0-5 SEEN, Urine Bacteria 3+, Urine Mucus 0 SEEN 08/13/24 19:12: Troponin T Hi Sens 2 Hr 427 H* 08/13/24 22:01: Troponin T Hi Sens 4Hr 467 H* 08/13/24 23:07: D-Dimer Quant (PE/DVT) 1.43 H*, Lactic Acid 1.8 08/14/24 02:55: WBC 12.8 H, RBC 3.20 L, Hgb 10.2 L, Hct 31.8 L, MCV 99.4 H, MCH 31.9, MCHC 32.1, RDW Std Deviation 58.2 H, RDW Coeff of Piedad 15.9 H, Plt Count 145 L, MPV 10.6, Immature Gran % (Auto) 0.500, Neut % (Auto) 88.0 H, Lymph % (Auto) 5.5 L, [place] % (Auto) 5.6, Eos % (Auto) 0.2, Baso % (Auto) 0.2, Absolute Neuts (auto) 11.3 H, Absolute Lymphs (auto) 0.70 L, Nucleated RBC % 0, APTT > 200.0 H*, Sodium 140, Potassium 4.5, Chloride 101, Carbon Dioxide 22.8, Anion Gap 16 H, BUN 33 H, Creatinine 1.55 H, Estim Creat Clear Calc 43.56 L, Est GFR (MDRD) Non-Af 35 L, BUN/Creatinine Ratio 21.5 H, Glucose 114 H, Calcium 8.4, Total Bilirubin < 0.15, AST 38 H, ALT 22, Alkaline Phosphatase 109 H, Total Protein 7.0, Albumin 3.7, Globulin 3.3, Albumin/Globulin Ratio 1.1, Triglycerides 38, Cholesterol 183, LDL Cholesterol, Calc 77, VLDL Cholesterol 8, HDL Cholesterol 99, Cholesterol/HDL Ratio 1.85, TSH 1.240 Micro: Microbiology 08/13/24 Unknown Mucosa - Nasopharyngeal SARS-CoV-2, Influenza & RSV (PCR) - Final 08/13/24 22:01 Nasal Secretion MRSA (PCR) - Final 08/13/24 22:01 Urine Catheter - Catheter Legionella Antigen - Final 08/13/24 22:01 Urine Catheter - Catheter Streptococcus pneumoniae Antigen (M - Final ABG Data ABG results: ABG 08/13/24 19:53 Specimen Type ART Sample Site L Radial pH 7.32 L Bicarbonate Actual 25.7 Total CO2 27 Base Excess -1 O2 Saturation 97 O2 % 70.0 ABG pCO2 50.4 H ABG pO2 98 [place] Test Positive O2 Delivery Device BiPAP Vent Mode Not entered POC PEEP 9 Radiography Diagnostic Testing: Radiology Impression Chest X-Ray 08/13/24 16:35 IMPRESSION: Suspicion of bilateral pulmonary venous congestion. Reading Location: [place] [address] Physical Exam Const alert and no apparent distress Constitutional Narrative: Morbidly obese. Sitting comfortably in bed. General Appearance: cooperative HEENT normocephalic and head/scalp atraumatic Eyes PERRL, EOMs intact bilaterally and conjunctivae normal Neck supple General: trachea midline Chest inspection of chest normal Resp normal respiratory effort Auscultation: diminished lung sounds; Negative for rales, rhonchi or wheezes Cardio regular rate and regular rhythm GI normal to inspection, nondistended, normoactive bowel sounds Extremity General Extremity: edema; Negative for clubbing Skin no rashes or lesions noted Neuro CN's II-XII intact bilaterally and no focal motor deficits Psych Mood & Affect: flat affect Charges/Coding Visit Charges Inpatient E&M: 63867 Subs Hosp L2
--- NOTE | 2024-08-14 08:24 | NM_ITS ---
PROCEDURE: RADIONUCLIDE LUNG SCAN (VENTILATION AND PERFUSION) REASON FOR EXAM: COUGH. SHORTNESS OF BREATH. ELEVATED TROPONINS TECHNIQUE: Nuclear medicine V/Q scan using 6.0 mCi Tc-99m MAA intravenously for perfusion imaging and 51.6 mCi Tc-99m DTPA aerosol for ventilation imaging. Anterior, posterior, right and left lateral, TREVINO, SETSWANA, RPO, and LPO ventilation and perfusion images. COMPARISON: PA and Lateral chest dated 08/13/2024. FINDINGS: Ventilation images: No abnormal areas of hypoventilation are demonstrated. Perfusion images: No segmental or subsegmental perfusion defects are demonstrated. NM/Lung Scan Vent/Perf IMPRESSION: NORMAL V/Q SCAN. Reading Location: [facility]
[2024-08-14] MEDS: Phenobarbital 32.4 MG Tablet 129.6 MG PO (08:31)
[2024-08-14] MEDS: Menthol/Lanolin/Calamine/Znox 113 GM Tube 1 APPLIC TOPICAL ×2 (08:31→13:13)
[2024-08-14] MEDS: Escitalopram Oxalate 10 MG Tablet PO (08:32)
[2024-08-14] MEDS: Pantoprazole Sodium 40 MG Tablet PO ×2 (08:33→22:49)
[2024-08-14] MEDS: Cefepime HCl 2 GM in 0.9% Normal Saline (100mL MB+) 100 ML IV ×2 (08:33→23:10)
[2024-08-14] MEDS: Clopidogrel Bisulfate 75 MG Tablet PO (08:33)
[2024-08-14] MEDS: clonazePAM 0.5 MG Tablet PO ×2 (08:37→23:09)
[2024-08-14 09:31] LABS: Pro- Brain NATRIURETIC PEPTIDE 3934 pg/mL (<=1800); Procalcitonin 0.39 ng/mL (<=0.10)
--- NOTE | 2024-08-14 10:32 | ST.MBS ---
Modified Barium Swallow Patient Information Study Date: 08/14/24 Study Time: 10:45 Direct Billable Minutes: 97 Total Minutes procedure & reportin Diagnosis: Dysphagia R13.10 Referring Physician: Lc Head Reason for Referral: Assess swallow function, assess aspiration risk, and determine recommendations for least restrictive diet textures & compensatory strategies to facilitate safe po intake. Medical History: PMH from Physician H&P: Morbid obesity, Seizure disorder/epilepsy, MARY, COPD/Asthma, Hx CVA, GERD, Hypothyroidism, Chronic anemia, HTN, HLD, Rheumatoid arthritis, Anxiety and Depression/Schizophrenia, CKD stage II Pt presented to [facility] ED 08/13/2024 due to fatigue/malaise with onset of nausea w/ emesis while lying down followed by onset of significant dyspnea, hypoxia. Pt had recent positive flu status (08/11/2024) prompting ED evaluation. Pt had been experiencing congestion, rhinorrhea, cough, fatigue. Work up in the ED revealed hypotension, 80% on room air w/ improvement to 86% on 6L, then requiring BiPAP, CBC with WBC 15. Pt admitted to ICU for subsequent management. Pt referred for ST consult due to concerns for aspiration PNA. BSE today revealed coughing w/ solids. Pt was recommended for soft and bite size textures / thin liquids and MBSS to further assess aspiration risk. Pt reported she has had increased difficulty swallowing in the past year and had a coughing spell w/ toast just prior to admission. She denies difficulty swallowing liquids. Hx of dysphagia therapy at [facility] from 03/13/2024-03/16/2024 during acute stay for encephalopathy, suspected sepsis, suspected GI bleed, and COVID-19. Pt was recommended Easy to Chew textures / Thin liquids w/ Direct supervision and feeding assistance w/ liquids d/t impulsivity. Current Diet Ordered: Soft and bite size textures / Thin liquids Dentition: Upper Dentures and Lower Dentures Mental Status: WNL (Able to follow commands for BSE and MBSS, hx of encephalopathy) Respiratory Status: Oxygenating on 4L/M nasal cannula Penetration-Aspiration Scale Penetration-Aspiration Scale: OBJECTIVE ASSESSMENT OF SWALLOW FUNCTION (QUANTITATIVE ? PER TRIAL): PENETRATION / ASPIRATION SCALE (BYERS): 1 = does not enter airway 2 = enters airway/above vocal folds/ejected 3 = enters airway/above vocal folds/not ejected 4 = enters airway/contacts vocal folds/ejected 5 = enters airway/contacts vocal folds/not ejected 6 = enters airway/below vocal folds/ejected 7 = enters airway/below vocal folds/not ejected despite effort 8 = enters airway/below vocal folds/no effort VIDEOFLOROSCOPIC SCALE SCORE (BYERS): Grade I = aspiration of material that has penetrated into the laryngeal vestibule, intact cough reflex Grade II = aspiration < 10 % of the bolus, intact cough reflex Grade III = aspiration of < 10 % of the bolus, reduced cough reflex or aspiration of > 10 % of the bolus, intact cough reflex Grade IV = aspiration of > 10 % of the bolus, reduced cough reflex Penetration-Aspiration Scale Score Thin Liquid via teaspoon: Result: 2= enter airway/above vocal folds/ejected Thin Liquid via teaspoon Trial 2: Result: 2= enter airway/above vocal folds/ejected Thin Liquid via large single sip: cup: Result: 2= enter airway/above vocal folds/ejected Valera Thick Liquid via large single sip: cup: Result: 2= enter airway/above vocal folds/ejected Pudding via teaspoon: Result: 1= does not enter airway Comment: Esophageal screen = complete clearance. /2 Cookie: Result: 1= does not enter airway Thin Liquid via single sip: straw: Result: 2= enter airway/above vocal folds/ejected Thin Liquid via sequential sips:straw: Result: 2= enter airway/above vocal folds/ejected Oral Phase Labial Seal: Interlabial escape, no progression to anterior lip Tongue Control During Bolus Hold: Posterior escape of less than half of bolus Bolus Preparation/Mastication: Timely and efficient chewing and mashing Bolus Transport/Lingual Motion: Delayed initiation of tongue motion Oral Residue: Residue collection on oral structures Pharyngeal Phase Initiation of Pharyngeal Swallow: Bolus head in pyriforms Soft Palate Elevation: Trace column of contrast/air between soft palate and pharyngeal wall Laryngeal Elevation: Comp. Superior move thyroid cart w/comp. apprx arytenoid cart-epig pet Anterior Hyoid Excursion: Partial anterior movement Epiglottic Movement: Complete inversion Laryngeal Vestibule Closure at Height of Swallow: Incomplete; narrow column of air/contrast in laryngeal vestibule (consistent laryngeal penetration during the swallow, fully ejecting after the swallow is complete) Pharyngeal Stripping Wave: Present - diminished Pharyngoesophageal Segment Opening: Parital distension and partial duration; parital obstruction of flow (trace retention in UES) Tongue Base Retraction: Narrow column of contrast between tongue base & post. pharyngeal wall Pharyngeal Residue: Collection of residue within or on pharyngeal structures Esophageal Phase Esophageal Clearance: Complete clearance Diagnosis/Impression Diagnosis: Mild oropharyngeal dysphagia R13.12 Impression: The oral phase is marked by... -Decreased bolus control w/ posterior loss of <1/2 of thin liquids to the pharynx prior to swallow onset. One trial spilled to the laryngeal vestibule prior to swallow onset, increasing risk for post prandial aspiration. -Delayed tongue motion for A-P transport. -Mild oral residue w/ sequential thin, which cleared w/ subsequent swallows. The pharyngeal phase is marked by... -Delayed swallow onset. -Decreased anterior hyoid excursion; however, good laryngeal vestibular closure. Consistent laryngeal penetration of liquids that fully ejected during the swallow. No aspiration observed; however, for all the above trials, this [employer] cannot definitively rule out aspiration due to pt's body habitus. -Mild pharyngeal residue w/ cookie due to mildly decreased TB retraction and pharyngeal stripping wave. Recommendations Diet: Easy to Chew Textures (Moisten dry textures) and Thin Liquids Compensatory Strategies: Small Bites, Small Sips, Slow Rate, Alternate bites/solids and sips/liquids, Sitting upright and Remain sitting upright for 30 minutes after PO intake Supervision: Distant Supervision Recommend Repeat Modified Barium Swallow: TBD Need for Skilled Speech Therapy Services: Yes Comment: -Train the patient in use of strategies to decrease risk for aspiration and reflux aspiration (hx of GERD). -Ongoing assessment of diet tolerance of recommended textures. -Train the patient in oropharyngeal exercise program to improve bolus control, swallow onset, and pharyngeal motility (lingual resistance, Clotilde, Effortful, Martine). Education Completed: 1. Described result of evaluation., 2. Pt understands evaluation & agrees with goals and treatment plan. and 7. Pt requires further education on strategies & risks. Status Active ST Patient: Active Contact Information [facility] Speech Therapy:: Krissy Rodriguez M.A. [facility]? Speech-Language Pathologist?? [facility] [address] [place] [address]? [email or web address]?? [phone]
--- NOTE | 2024-08-14 11:00 | PCM.CONS.C ---
Assessment & Plan Assessment/Plan (1) NSTEMI (non-ST elevated myocardial infarction): PLAN: Most likely type II with demand type ischemia. Check echocardiogram. Continue aspirin Plavix. DC heparin infusion. (2) Congestive heart failure: PLAN: No prior history of heart failure. Will check echocardiogram. (3) Septic shock: PLAN: As per resistor tester. (4) UTI (urinary tract infection): PLAN: On antibiotics. (5) Super obesity: PLAN: Lose weight. HPI Consult Data Date of Consult: 08/14/24 HPI Narrative HPI Narrative: This lady presented to the hospital with complaints of weakness, fatigue, fever and nausea/vomiting. Possible aspiration with 1 episode of vomiting. Denied any chest pains. Some shortness of breath. Per patient, she has been having flulike symptoms for the past 4 to 5 days. Patient's initial workup suggested complicated UTI with sepsis, acute hypoxic respiratory failure secondary to possible viral illness and septic shock. As part of her workup, troponin were also checked. These were elevated. Subsequently we have been consulted for cardiac evaluation and management. Patient denies any history of heart disease. As noted above, denies any chest pains. No history of angina. [facility] Medical History Epilepsy Hammer toes of both feet Cerebrovascular disease Age related cataract Wears glasses Wears hearing aid Rash Walker as ambulation aid Easy bruising History of diverticulitis Gastric reflux Non-smoker Shortness of breath on exertion Vericose veins History of CVA (cerebrovascular accident) Seizure disorder Thyroid disorder Rheumatoid arthritis Diverticulitis Sleep apnea COPD (chronic obstructive pulmonary disease) Diabetes mellitus type 2 in obese Benign essential hypertension Convulsion Osteoarthritis Hypothyroid TIA (transient ischemic attack) Hypercholesterolemia Anemia in chronic illness Allergic rhinitis Glaucoma Morbid obesity Peripheral venous insufficiency GERD (gastroesophageal reflux disease) Asthma Schizophrenia Depression Anxiety disorder Hyperlipidemia Hypertension Home Medications ?Medication ?Instructions ?Recorded ?Last Taken ?Type clopidogrel 75 mg tablet 75 mg PO DAILY 03/28/13 03/10/24 History hydrochlorothiazide 25 mg tablet 25 mg PO DAILY ##0 03/28/13 03/10/24 History metoprolol succinate 100 mg 100 mg PO DAILY 03/28/13 12/19/20 History tablet,extended release 24 hr paliperidone 6 mg tablet,extended 6 mg PO QHS 01/31/17 03/10/24 History release 24 hr montelukast 10 mg tablet 10 mg PO QHS #90 tabs 12/03/22 03/10/24 Rx albuterol sulfate 2.5 mg/3 mL 2.5 mg inhalation DAILY PRN 11/27/23 Unknown History (0.083 %) solution for nebulization shortness of breath or wheezing atorvastatin 20 mg tablet 20 mg PO QHS 11/27/23 03/11/24 History clonazepam 0.5 mg tablet 0.5 mg PO BID 11/27/23 03/10/24 History fluticasone propionate 220 2 inh inhalation BID 11/27/23 03/10/24 History mcg/actuation HFA aerosol inhaler latanoprost 0.005 % eye drops 1 drp ophthalmic (eye) QHS 11/27/23 03/10/24 History losartan 50 mg tablet 50 mg PO DAILY 11/27/23 03/10/24 History phenobarbital 60 mg tablet 120 mg PO 0800 11/27/23 Unknown History phenobarbital 60 mg tablet 180 mg PO SUMOWETHSA seizures 11/27/23 Unknown History polyethylene glycol 3350 17 17 g PO DAILY PRN CONSTIPATION 11/27/23 03/10/24 History gram/dose oral powder (Miralax) propylene glycol 1 %-glycerin 0.3 2 drp ophthalmic (eye) Q4H PRN dry 11/27/23 Unknown History % eye drops (Artificial Tears eye(s) (glycerin-peg)) acetaminophen 500 mg tablet 500 mg PO Q6H PRN pain 03/11/24 03/10/24 History cholecalciferol (vitamin D3) 25 50 mcg PO DAILY 03/11/24 Unknown History mcg (1,000 unit) tablet levothyroxine 200 mcg tablet 200 mcg PO QHS 03/11/24 03/10/24 History nifedipine 90 mg tablet,extended 90 mg PO DAILY 03/11/24 03/10/24 History release phenobarbital 60 mg tablet 60 mg PO TUFR seizures 03/11/24 03/10/24 History escitalopram oxalate 10 mg tablet 10 mg PO DAILY #0 tabs 03/16/24 Unknown Rx albuterol sulfate 90 mcg/actuation 2 puff inhalation Q4H PRN 08/13/24 Unknown History aerosol inhaler shortness of breath or wheezing ondansetron 4 mg disintegrating 4 mg PO Q4H PRN nausea and vomiting 08/13/24 Unknown History tablet pantoprazole 40 mg tablet,delayed 40 mg PO BID 08/13/24 Unknown History release (Protonix) quetiapine 100 mg tablet 100 mg PO QHS 08/13/24 Unknown History triamcinolone acetonide 0.1 % 1 applic topical Q8 PRN itching 08/13/24 Unknown History topical cream Allergy/AdvReac Type Severity Reaction Status Date / Time amoxicillin Allergy NEEDS Verified 03/11/24 08:36 FOLLOW-UP codeine Allergy Shortness Verified 03/11/24 08:36 of breath cyclobenzaprine (From Allergy NEEDS Verified 03/11/24 08:36 Flexeril) FOLLOW-UP dextromethorphan HBr (From Allergy Shortness Verified 03/11/24 08:36 Tylenol Cold Multi-Symptom) of breath diazepam (From Valium) Allergy Shortness Verified 03/11/24 08:36 of breath fluticasone (From Advair Allergy NEEDS Verified 03/11/24 08:36 Diskus) FOLLOW-UP Food Allergies: Uncoded Allergy Shortness Verified 03/11/24 08:36 of breath guaifenesin (From Tylenol Allergy Shortness Verified 03/11/24 08:36 Cold Multi-Symptom) of breath hydrocodone bitartrate (From Allergy Shortness Verified 03/11/24 08:36 Vicodin) of breath iodine Allergy Anaphylaxis Verified 03/11/24 08:36 Latex, Natural Rubber Allergy Shortness Verified 03/11/24 08:36 of breath morphine Allergy Shortness Verified 03/11/24 08:36 of breath NSAIDS (Non-Steroidal Allergy Shortness Verified 03/11/24 08:36 Anti-Inflamma of breath oxaprozin (From Daypro) Allergy NEEDS Verified 03/11/24 08:36 FOLLOW-UP oxycodone Allergy NEEDS Verified 03/11/24 08:36 FOLLOW-UP phenylephrine HCl (From Allergy Shortness Verified 03/11/24 08:36 Tylenol Cold Multi-Symptom) of breath phenytoin (From Dilantin) Allergy NEEDS Verified 03/11/24 08:36 FOLLOW-UP phenytoin sodium (From Allergy Shortness Verified 03/11/24 08:36 Dilantin) of breath phenytoin sodium extended Allergy Shortness Verified 03/11/24 08:36 (From Dilantin) of breath povidone-iodine (From Allergy BLISTERS Verified 03/11/24 08:36 Betadine) pseudoephedrine HCl (From Allergy Shortness Verified 03/11/24 08:36 Tylenol Cold Multi-Symptom) of breath salmeterol (From Advair Allergy NEEDS Verified 03/11/24 08:36 Diskus) FOLLOW-UP shellfish derived Allergy NEEDS Verified 03/11/24 08:36 FOLLOW-UP soap (From Betadine) Allergy BLISTERS Verified 03/11/24 08:36 tetracycline Allergy NEEDS Verified 03/11/24 08:36 FOLLOW-UP tositumomab iodine-131 Allergy NEEDS Verified 03/11/24 08:36 FOLLOW-UP muscle relaxers Allergy Shortness Uncoded 05/22/23 11:04 of breath Family History Mother CVA (cerebral vascular accident) Cancer Depression Diabetes Emphysema lung Hypertension Arthritis Father CVA (cerebral vascular accident) Cancer Depression Diabetes Emphysema lung Hypertension Arthritis Surgical History History of cholecystectomy History of tonsillectomy History of total hysterectomy History of total knee replacement History of bilateral tympanoplasty History of tubal ligation History of D&C Social History household members: none housing: group home Smoking Status: Never smoker second hand exposure: Yes alcohol intake: never substance use type: does not use what type of physical activity do you participate in: walking do you feel safe at home: Yes Physical Exam Narrative Morbidly obese. Heart sounds 1 and 2 noted. Chest examination with decreased breath sounds bilateral bases. Alert oriented x 3. No ankle edema. Risk Stratification Risk Stratification Applicable: No Objective Data Vital Signs: Vital Signs Temp Pulse Resp BP Pulse Ox O2 Del Method O2 Flow Rate 98.9 F 84 23 H 131/79 H 91 Nasal Cannula 4 08/14/24 09:00 08/14/24 09:00 08/14/24 09:00 08/14/24 09:00 08/14/24 09:00 08/14/24 09:00 08/14/24 09:00 FiO2 40 08/14/24 04:46 Oxygen Flow Rate (L/min) 4 Oxygen Delivery Method Nasal Cannula Weight: 319 lb 3.669 oz Body Mass Index (BMI) 27.9 Intake & Output: Intake and Output for Last 24 Hours 08/12/24 08/13/24 08/14/24 23:59 23:59 23:59 Intake Total 3803.92 / 3803.92 510.4 / 510.4 Output Total 600 / 600 Balance 3803.92 / 3653.92 -89.6 / -89.6 Lab / Micro Data Attestation: I reviewed the patient's lab results. 08/14/24 02:55 08/14/24 02:55 Labs: Laboratory Results - last 24 hr 08/13/24 15:50: WBC 15.0 H, RBC 3.70 L, Hgb 11.9 L, Hct 36.2 L, MCV 97.8, MCH 32.2 H, MCHC 32.9, RDW Std Deviation 56.1 H, RDW Coeff of [place] 15.8 H, Plt Count 188, MPV 10.5, Immature Gran % (Auto) 0.300, Neut % (Auto) 90.8 H, Lymph % (Auto) 3.6 L, Cobb % (Auto) 5.2, Eos % (Auto) 0.0, Baso % (Auto) 0.1, Absolute Neuts (auto) 13.6 H, Absolute Lymphs (auto) 0.54 L, Nucleated RBC % 0.1, PT 14.8, INR 1.1, APTT 40.2 H, Sodium 138, Potassium 4.3, Chloride 98, Carbon Dioxide 23.7, Anion Gap 17 H, BUN 29 H, Creatinine 1.48 H, Estim Creat Clear Calc 45.10 L, Est GFR (MDRD) Non-Af 37 L, BUN/Creatinine Ratio 19.5, Glucose 149 H, Lactic Acid 3.1 H*, Calcium 9.2, Phosphorus 3.3, Magnesium 1.7, Total Bilirubin 0.27, AST 27, ALT 17, Alkaline Phosphatase 130 H, Troponin T High Sens 317 H*, NT pro BNP II 3099 H, Total Protein 7.4, Albumin 3.9, Globulin 3.5, Albumin/Globulin Ratio 1.1 08/13/24 16:10: Urine Color Yellow, Urine Clarity Sl. Cloudy, Urine pH 6.0, Ur Specific [place] 1.015, Urine Protein 30 H, Urine Glucose (UA) Normal, Urine Ketones Negative, Urine Occult Blood 50 H, Urine Nitrite Negative, Urine Bilirubin Negative, Urine Urobilinogen Normal, Ur Leukocyte Esterase 500 H, Urine RBC 0-5 SEEN, Urine WBC 50-100 SEEN, Ur Squamous Epith Cells 0-5 SEEN, Urine Bacteria 3+, Urine Mucus 0 SEEN 08/13/24 19:12: Troponin T Hi Sens 2 Hr 427 H* 08/13/24 22:01: Troponin T Hi Sens 4Hr 467 H* 08/13/24 23:07: D-Dimer Quant (PE/DVT) 1.43 H*, Lactic Acid 1.8 08/14/24 02:55: WBC 12.8 H, RBC 3.20 L, Hgb 10.2 L, Hct 31.8 L, MCV 99.4 H, MCH 31.9, MCHC 32.1, RDW Std Deviation 58.2 H, RDW Coeff of [place] 15.9 H, Plt Count 145 L, MPV 10.6, Immature Gran % (Auto) 0.500, Neut % (Auto) 88.0 H, Lymph % (Auto) 5.5 L, Cobb % (Auto) 5.6, Eos % (Auto) 0.2, Baso % (Auto) 0.2, Absolute Neuts (auto) 11.3 H, Absolute Lymphs (auto) 0.70 L, Nucleated RBC % 0, APTT > 200.0 H*, Sodium 140, Potassium 4.5, Chloride 101, Carbon Dioxide 22.8, Anion Gap 16 H, BUN 33 H, Creatinine 1.55 H, Estim Creat Clear Calc 43.56 L, Est GFR (MDRD) Non-Af 35 L, BUN/Creatinine Ratio 21.5 H, Glucose 114 H, Calcium 8.4, Total Bilirubin < 0.15, AST 38 H, ALT 22, Alkaline Phosphatase 109 H, Total Protein 7.0, Albumin 3.7, Globulin 3.3, Albumin/Globulin Ratio 1.1, Triglycerides 38, Cholesterol 183, LDL Cholesterol, Calc 77, VLDL Cholesterol 8, HDL Cholesterol 99, Cholesterol/HDL Ratio 1.85, TSH 1.240 08/14/24 08:45: NT pro BNP II 3934 H, Procalcitonin 0.39 H Micro: Microbiology 08/13/24 Unknown Mucosa - Nasopharyngeal SARS-CoV-2, Influenza & RSV (PCR) - Final 08/13/24 22:01 Nasal Secretion MRSA (PCR) - Final 08/13/24 22:01 Urine Catheter - Catheter Legionella Antigen - Final 08/13/24 22:01 Urine Catheter - Catheter Streptococcus pneumoniae Antigen (M - Final ABG Data ABG results: ABG 08/13/24 19:53 Specimen Type ART Sample Site L Radial pH 7.32 L Bicarbonate Actual 25.7 Total CO2 27 Base Excess -1 O2 Saturation 97 O2 % 70.0 ABG pCO2 50.4 H ABG pO2 98 [place] Test Positive O2 Delivery Device BiPAP Vent Mode Not entered POC PEEP 9 Rhythm Strip Rhythm Strip: Sinus Rhythm Cardiology Labs/Tests 08/13/24 15:50: WBC 15.0 H, RBC 3.70 L, Hgb 11.9 L, Hct 36.2 L, MCV 97.8, MCH 32.2 H, MCHC 32.9, Plt Count 188, MPV 10.5, Immature Gran % (Auto) 0.300, Neut % (Auto) 90.8 H, Lymph % (Auto) 3.6 L, Cobb % (Auto) 5.2, Eos % (Auto) 0.0, Baso % (Auto) 0.1, Absolute Neuts (auto) 13.6 H, Nucleated RBC % 0.1, PT 14.8, INR 1.1, APTT 40.2 H, Sodium 138, Potassium 4.3, Chloride 98, Carbon Dioxide 23.7, Anion Gap 17 H, BUN 29 H, Creatinine 1.48 H, Est GFR (MDRD) Non-Af 37 L, BUN/Creatinine Ratio 19.5, Glucose 149 H, Lactic Acid 3.1 H*, Calcium 9.2, Phosphorus 3.3, Magnesium 1.7, Total Bilirubin 0.27 08/13/24 16:10: Urine Color Yellow, Urine Clarity Sl. Cloudy, Urine pH 6.0, Ur Specific [place] 1.015, Urine Protein 30 H, Urine Glucose (UA) Normal, Urine Ketones Negative, Urine Occult Blood 50 H, Urine Nitrite Negative, Urine Bilirubin Negative, Urine Urobilinogen Normal, Ur Leukocyte Esterase 500 H, Urine RBC 0-5 SEEN, Urine WBC 50-100 SEEN 08/13/24 19:53: pH 7.32 L, Bicarbonate Actual 25.7, Base Excess -1, O2 Saturation 97, ABG pCO2 50.4 H, ABG pO2 98, [place] Test Positive 08/13/24 23:07: D-Dimer Quant (PE/DVT) 1.43 H*, Lactic Acid 1.8 08/14/24 02:55: WBC 12.8 H, RBC 3.20 L, Hgb 10.2 L, Hct 31.8 L, MCV 99.4 H, MCH 31.9, MCHC 32.1, Plt Count 145 L, MPV 10.6, Immature Gran % (Auto) 0.500, Neut % (Auto) 88.0 H, Lymph % (Auto) 5.5 L, Cobb % (Auto) 5.6, Eos % (Auto) 0.2, Baso % (Auto) 0.2, Absolute Neuts (auto) 11.3 H, Nucleated RBC % 0, APTT > 200.0 H*, Sodium 140, Potassium 4.5, Chloride 101, Carbon Dioxide 22.8, Anion Gap 16 H, BUN 33 H, Creatinine 1.55 H, Est GFR (MDRD) Non-Af 35 L, BUN/Creatinine Ratio 21.5 H, Glucose 114 H, Calcium 8.4, Total Bilirubin < 0.15, Triglycerides 38, Cholesterol 183, VLDL Cholesterol 8, HDL Cholesterol 99, Cholesterol/HDL Ratio 1.85 Rhythm: EKG: Normal sinus rhythm. Nonspecific T wave changes. ECHO: Stress Test: Cardiac Cath: PCI: CT Surgery: Holter monitor: EPS: PPM: CXR: Chest CT Scan: Radiography Diagnostic Testing: Radiology Impression Chest X-Ray 08/13/24 16:35 IMPRESSION: Suspicion of bilateral pulmonary venous congestion. Reading Location: [place] [id number]
--- NOTE | 2024-08-14 11:59 | CASEMGMT ---
SW met with patient. Introduced self and role at [facility]. Patient confirmed her plan is to return to [facility] ([facility]) at discharge as this is where she lives. Plan: d/c back to [facility] Kate STEVENSON
--- NOTE | 2024-08-14 12:10 | CASEMGMT ---
Discharge Planning Updates sent to CC with note that pt could return over the weekend. Christina Pastrana DC Planning Asst.
[2024-08-14] MEDS: Nystatin Powder 15gm Bottle 1 APPLIC TOPICAL ×2 (13:14→22:47)
[2024-08-14 13:49] LABS: Partial Thromboplast Time > 200.0 Seconds (24.1-36.2)
--- NOTE | 2024-08-14 14:41 | CHAPLAIN ---
Type of Pastoral Visit _x__ Initial Visit ___ Follow-up Visit ___ On-call Visit ___ General Patient Visit ___ Spiritual Assessment ___ Family Conference ___ Bereavement ___ Rapid Response ___ Code Blue ___ Other (describe below) Pastoral Care Referral From _x__ Patient ___ Family ___ Nurse ___ Physician ___ Cane Loader ___ Head Of Training And Development ___ Other (describe below) Sacrament/Intervention _x__ Active listening ___ Anointing ___ Jainism ___ Bereavement ___ Communion ___ Loraine exploration ___ ___ Life review _x__ Prayer ___ Reconciliation ___ Sacrament of Sick _x__ Supportive presence ___ Wedding ___ Other (describe below) Pastoral Comments patient readily talks about her mid level practitioner/mandaen and wants this new car make ready mechanic to contact him; this was done; prayer was given
[2024-08-14] MEDS: Acetaminophen 325 MG Tablet 650 MG PO (15:26)
[2024-08-14] MEDS: Heparin Injection (Vial) 5,000 UNIT/ML VIAL 5000 UNIT SC (22:46)
[2024-08-14] MEDS: Latanoprost 0.005% 1 Bottle 1 DRP OPHTHALMIC (22:47)
[2024-08-14] MEDS: Levothyroxine 100 MCG Tablet 200 MCG PO (22:48)
[2024-08-14] MEDS: Atorvastatin Calcium 20 MG Tablet PO (22:49)
[2024-08-14] MEDS: QUEtiapine 100 MG Tablet PO (22:49)
[2024-08-14] MEDS: Montelukast 10 MG Tablet PO (22:49)
[2024-08-14] MEDS: Phenobarbital 32.4 MG Tablet 64.8 MG PO (22:52)
[2024-08-14] MEDS: PALIPERIDONE 3 MG TAB.ER.24 6 MG PO (23:09)
[2024-08-15] VITALS (16 sets, daily range): BP systolic 119–157; BP diastolic 73–86; PULSE 75–99; RESP 12–20; TEMP 36.6–37.4; O2SAT 92–99; BMI 58.6
[2024-08-15] MEDS: Nystatin Powder 15gm Bottle 1 APPLIC TOPICAL ×3 (05:26→20:44)
[2024-08-15] MEDS: metroNIDAZOLE 500 MG/100 ML BAG 100 MG IV ×3 (05:26→22:14)
[2024-08-15] MEDS: Budesonide Respules 0.5 MG/2 ML AMPUL.NEB. INHALATION (07:11)
[2024-08-15] MEDS: Ipratropium/Albuterol Sulfate 3 ML AMPUL.NEB INHALATION ×4 (07:11→19:30)
[2024-08-15 07:17] LABS: Vancomycin, Trough Level 19.2 ug/mL (5.0-15.0)
--- NOTE | 2024-08-15 07:33 | PCM.RX.CS ---
Consult Antibiotic Management Pharmacy has been consulted to manage selected antibiotic: Vancomycin Type of Intervention Type of Consult: Follow-up Prior Doses of Antibiotics Prior Doses of Antibiotics Received/Current Regimen: CURRENT DOSE IS 1000MG IV Q12H Labs Labs: Sodium 140 mmol/L (133-145) 08/14/24 02:55 Potassium 4.5 mmol/L (3.3-5.1) 08/14/24 02:55 Chloride 101 mmol/L (98-108) 08/14/24 02:55 Carbon Dioxide 22.8 mmol/L (21.0-32.0) 08/14/24 02:55 Anion Gap 16 (5-15) H 08/14/24 02:55 BUN 33 mg/dL (4-19) H 08/14/24 02:55 Creatinine 1.55 mg/dL (0.70-1.20) H 08/14/24 02:55 Est GFR (MDRD) Non-Af 35 (>60) L 08/14/24 02:55 BUN/Creatinine Ratio 21.5 RATIO (10-20) H 08/14/24 02:55 Glucose 114 mg/dL (70-99) H 08/14/24 02:55 Vancomycin Trough 19.2 ug/mL (5.0-15.0) H 08/15/24 06:32 Microbiology Microbiology: Microbiology 08/13/24 16:10 Urine, Catheterized Urine Culture - Final Streptococcus agalactiae (B) 08/13/24 13:35 Mucosa - Nasopharyngeal Respiratory Panel (PCR) - Final 08/14/24 08:45 Sputum, Expectorated/Coughed Gram Stain - Final 08/13/24 Unknown Mucosa - Nasopharyngeal SARS-CoV-2, Influenza & RSV (PCR) - Final 08/13/24 22:01 Nasal Secretion MRSA (PCR) - Final 08/13/24 22:01 Urine Catheter - Catheter Legionella Antigen - Final 08/13/24 22:01 Urine Catheter - Catheter Streptococcus pneumoniae Antigen (M - Final Dosing Weight Weight used for dosin.5 kg Estimated Creatinine Clearance Estimated Creatinine Clearance: 44 ml/min Goal Trough Goal Trough: 15-20 mcg/mL Pharmacy Plan for Drug Dosing Pharmacy Plan for Drug Dosing: The vanc trough drawn at 06:32 today (approx 13 hours after the previous dose) was 19.2 mcg/ml. This would have been even higher closer to 20 if drawn at the 11.5 to 12 hour kavita instead of 13 hours. Therefore, since it is already hovering around the top of the goal range after only a few doses, will decrease dose to 750mg IV q12h. Check another trough before the 4th new dose. Pharmacy Service will continue to monitor and adjust dosing as required. Follow-Up Labs Follow-Up Labs: Trough: Vancomycin Date/Time Labs Ordered Labs to be done on [date and time ordered]: 08/16/24 20:30
--- NOTE | 2024-08-15 07:38 | PCM.PN.HOSP ---
Reason for Visit Reason for Visit: Diagnoses Sepsis, unspecified organism (08/13/24) Obesity, unspecified (08/13/24) Non-ST elevation (NSTEMI) myocardial infarction (08/13/24) Heart failure, unspecified (08/13/24) Urinary tract infection, site not specified (08/13/24) Severe sepsis with septic shock (08/13/24) Objective Data Objective Data Vital Signs: Vital Signs Temp Pulse Resp BP Pulse Ox O2 Del Method O2 Flow Rate 98 F 78 18 119/86 H 95 High Flow 7 08/15/24 02:00 08/15/24 04:20 08/15/24 04:20 08/15/24 02:00 08/15/24 05:30 08/15/24 05:30 08/15/24 05:30 FiO2 35 08/15/24 04:20 Oxygen Flow Rate (L/min) 7 Oxygen Delivery Method High Flow Weight: 145.5 kg Body Mass Index (BMI) 58.6 Intake & Output: Intake and Output for Last 24 Hours 08/13/24 08/14/24 08/15/24 23:59 23:59 23:59 Intake Total 3803.92 / 3803.92 1014.65 / 1014.65 200 / 200 Output Total 1075 / 1075 Balance 3803.92 / 3653.92 -60.35 / -60.35 200 / 200 Lab / Micro Data 08/14/24 02:55 08/14/24 02:55 Labs: Laboratory Results - last 24 hr 08/14/24 08:45: NT pro BNP II 3934 H, Procalcitonin 0.39 H 08/14/24 12:29: APTT > 200.0 H* 08/15/24 06:32: Vancomycin Trough 19.2 H Micro: Microbiology 08/13/24 16:10 Urine, Catheterized Urine Culture - Final Streptococcus agalactiae (B) 08/13/24 13:35 Mucosa - Nasopharyngeal Respiratory Panel (PCR) - Final 08/14/24 08:45 Sputum, Expectorated/Coughed Gram Stain - Final 08/13/24 Unknown Mucosa - Nasopharyngeal SARS-CoV-2, Influenza & RSV (PCR) - Final 08/13/24 22:01 Nasal Secretion MRSA (PCR) - Final 08/13/24 22:01 Urine Catheter - Catheter Legionella Antigen - Final 08/13/24 22:01 Urine Catheter - Catheter Streptococcus pneumoniae Antigen (M - Final Radiography Diagnostic Testing: Radiology Impression Echocardiogram 08/13/24 21:49 Interpretation Summary Technically difficult study secondary to body habitus with suboptimal images. Mild concentric left ventricular hypertrophy. The left ventricular ejection fraction is 60 %. Stage 1 diastolic dysfunction. Moderately dilated RV with moderate systolic dysfunction. The left atrium is moderately enlarged. Mild (1+) mitral valve insufficiency. Mild to moderate (1-2+) tricuspid valve insufficiency. Right ventricular systolic pressure estimated to be 50 mmHg. Ordering Physician: Paresh Brunson Referring Physician: Panda Mota Performed By: Ghazal Newman, TIFFANI, RVT Lung Scan-VQ NM 08/14/24 08:24 IMPRESSION: NORMAL V/Q SCAN. Reading Location: [place] [id number] Rhythm Strip Rhythm Strip: Sinus Rhythm Physical Exam Narrative GENERAL: Patient appears ill looking HEENT: Atraumatic; normocephalic EYES; Anicteric, Normal Conjunctiva NECK; supple, normal thyroid, RESPIRATORY: Diminished to auscultation with bilateral rhonchi and wheezes CARDIOVASCULAR: Regular S1 S2, tachycardic GI: soft, normoactive bowel sounds, : No Renal angle tenderness; EXTREMITIES: edema, no clubbing, MUSCULOSKELETAL: no muscle wasting NEURO: Awake; no lateralizing signs. SKIN: No Rash PSYCH; Flat affect Assessment & Plan Assessment/Plan (1) Septic shock: PLAN: Plan Patient is a 74-year-old lady resident at [facility] who was brought to the emergency department with shortness of breath. She was reported to have vomited and route with concern for aspiration chest x-ray obtained on admission demonstrated bilateral pulmonary venous congestion. An assessment of acute hypoxic respiratory failure was made patient started on BiPAP admitted to the intensive care unit for further management 1. Acute hypoxic respiratory failure ? Multifactorial including bilateral pulmonary venous congestion, aspiration pneumonia patient was placed on noninvasive ventilation started on broad-spectrum antibiotic therapy admitted to the intensive care unit with consult placed to sheeter helper 2. Septic shock ? Secondary to a combination of acute cystitis as well as recent influenza A infection with suspected bacterial pneumonia. Patient was started on broad-spectrum antibiotic therapy after cultures have been initiated. Patient was not resuscitated with IV fluids per protocol given concern for fluid overload status ? 08/15/2024 patient blood pressure has stabilized. Urine cultures positive for Streptococcus agalactiae patient remains on appropriate antibiotic therapy 3. Acute cystitis ? With Streptococcus agalactiae management as discussed above 4. Acute congestive heart failure?unspecified ? Patient management noninvasive ventilation BiPAP Lasix was held off given concern for relatively low blood pressure. Serial cardiac enzymes and echo ordered and cardiology consulted by admitting physician ? 08/15/2024 patient seen in consultation by cardiology notes and recommendations reviewed. 2D echo obtained did show Mild concentric left ventricular hypertrophy. The left ventricular ejection fraction is 60 %. Stage 1 diastolic dysfunction. Moderately dilated RV with moderate systolic dysfunction. The left atrium is moderately enlarged. Mild (1+) mitral valve insufficiency. Mild to moderate (1-2+) tricuspid valve insufficiency. Right ventricular systolic pressure estimated to be 50 mmHg. 5. Elevated troponin ? Suspected to be secondary to demand ischemia from above echo has been ordered subsequent serial cardiac enzymes ordered 6. Elevated D-dimer ? Patient was started on heparin CTA was not ordered given patient acute kidney injury most show patient has allergy to dye plan is for patient to undergo evaluation VQ scan as well as lower extremity duplex ? 08/15/2024 patient bilateral venous duplex as well as VQ scan came back unremarkable systemic anticoagulation with heparin discontinued 7. Acute kidney injury ? Creatinine from 06/04/2024 was 0.82 creatinine on admission was 1.48 creatinine did bump up to 1.55. Patient AC suspected secondary to ischemic ATN 8. Anemia ? Secondary to chronic disorder monitoring H&H and transfuse if patient becomes symptomatic or hemoglobin falls below 7 9. Hypothyroidism ? Patient is on levothyroxine home dose continued 10. Essential hypertension ? Patient is on losartan as well as HCTZ held given relatively low blood pressure as well as impaired kidney function 11. GERD ? Patient is on PPI 12. Schizophrenia ? Plan is to continue patient antipsychotic medications 13. Seizure disorder -controlled on phenobarbital plan is to resume following med rec 14. COPD/asthma ? Bronchodilator treatment as needed 15. Dyslipidemia ?Patient is on statin therapy, continued at home dose 16 . DVT prophylaxis ? Patient is on heparin Time spent in the patient's overall evaluation,decision-making process, review of diagnostic data, adjustment of management, discussion with other providers, nursing nursing and ancillary staff involved in patient's care documentation, 50 Minutes Charges/Coding Visit Charges Inpatient E&M: 11148 [facility] [[email or web address] Hosp L3
[2024-08-15 09:12] LABS: Hematocrit 29.6 % (37-47); Hemoglobin 9.5 g/dL (12.0-15.0); Mean Corp Hgb Conc 32.1 g/dL (32-36); Mean Corpuscular Volume 99.7 fL (81-99); Mean Platelet Vol. 11.1 fl (6.2-12.0); Platelet Count 160 K/mm3 (150-450); RBC Distribution Width SD 58.9 fl (35.1-43.9); Red Blood Count 2.97 M/mm3 (4.2-5.4); White Blood Count 9.9 K/mm3 (4.4-11.0)
[2024-08-15] MEDS: Vancomycin HCl 750 MG in 0.9% Normal Saline (250mL Bag) 250 ML 250 MG IV (09:15)
[2024-08-15] MEDS: Menthol/Lanolin/Calamine/Znox 113 GM Tube 1 APPLIC TOPICAL ×4 (09:19→21:08)
[2024-08-15] MEDS: Heparin Injection (Vial) 5,000 UNIT/ML VIAL 5000 UNIT SC ×2 (09:19→20:44)
[2024-08-15] MEDS: Escitalopram Oxalate 10 MG Tablet PO (09:20)
[2024-08-15] MEDS: Pantoprazole Sodium 40 MG Tablet PO ×2 (09:20→20:43)
[2024-08-15] MEDS: Clopidogrel Bisulfate 75 MG Tablet PO (09:20)
[2024-08-15] MEDS: clonazePAM 0.5 MG Tablet PO ×2 (09:29→21:08)
--- NOTE | 2024-08-15 10:35 | PCM.PN.CARD ---
Subjective Subjective Complaining of shortness of breath. Audible wheezing. Objective Data Vital Signs: Vital Signs Temp Pulse Resp BP Pulse Ox O2 Del Method O2 Flow Rate 98.1 F 87 18 134/76 H 92 High Flow 6 08/15/24 08:00 08/15/24 08:00 08/15/24 08:00 08/15/24 08:00 08/15/24 10:00 08/15/24 10:00 08/15/24 10:00 FiO2 35 08/15/24 04:20 Oxygen Flow Rate (L/min) 6 Oxygen Delivery Method High Flow Weight: 320 lb 12.361 oz Body Mass Index (BMI) 58.6 Intake & Output: Intake and Output for Last 24 Hours 08/13/24 08/14/24 08/15/24 23:59 23:59 23:59 Intake Total 3803.92 / 3803.92 1014.65 / 1014.65 200 / 200 Output Total 1075 / 1075 Balance 3803.92 / 3653.92 -60.35 / -60.35 200 / 200 Lab / Micro Data 08/15/24 06:33 08/14/24 02:55 Labs: Laboratory Results - last 24 hr 08/14/24 12:29: APTT > 200.0 H* 08/15/24 06:32: Vancomycin Trough 19.2 H 08/15/24 06:33: WBC 9.9, RBC 2.97 L, Hgb 9.5 L, Hct 29.6 L, MCV 99.7 H, MCH 32.0, MCHC 32.1, RDW Std Deviation 58.9 H, RDW Coeff of Piedad 16.0 H, Plt Count 160, MPV 11.1 Micro: Microbiology 08/13/24 16:10 Urine, Catheterized Urine Culture - Final Streptococcus agalactiae (B) 08/13/24 13:35 Mucosa - Nasopharyngeal Respiratory Panel (PCR) - Final 08/14/24 08:45 Sputum, Expectorated/Coughed Gram Stain - Final Rhythm Strip Rhythm Strip: Sinus Rhythm Cardiology Labs/Tests 08/14/24 12:29: APTT > 200.0 H* 08/15/24 06:33: WBC 9.9, RBC 2.97 L, Hgb 9.5 L, Hct 29.6 L, MCV 99.7 H, MCH 32.0, MCHC 32.1, Plt Count 160, MPV 11.1 Rhythm: EKG: ECHO: Stress Test: Cardiac Cath: PCI: CT Surgery: Holter monitor: EPS: PPM: CXR: Chest CT Scan: Radiography Diagnostic Testing: Radiology Impression Echocardiogram 08/13/24 21:49 Interpretation Summary Technically difficult study secondary to body habitus with suboptimal images. Mild concentric left ventricular hypertrophy. The left ventricular ejection fraction is 60 %. Stage 1 diastolic dysfunction. Moderately dilated RV with moderate systolic dysfunction. The left atrium is moderately enlarged. Mild (1+) mitral valve insufficiency. Mild to moderate (1-2+) tricuspid valve insufficiency. Right ventricular systolic pressure estimated to be 50 mmHg. Ordering Physician: Paresh Brunson Referring Physician: Panda Mota Performed By: Ghazal Newman, TIFFANI, RVT Lung Scan-VQ NM 08/14/24 08:24 IMPRESSION: NORMAL V/Q SCAN. Reading Location: [place] [id number] Physical Exam Narrative Morbidly obese. Heart sounds 1 and 2 noted. Chest examination with bilateral diffuse wheezing. Alert oriented x 3. No ankle edema. Assessment & Plan Assessment/Plan (1) NSTEMI (non-ST elevated myocardial infarction): PLAN: Most likely type II with demand type ischemia. Continue aspirin. Recommend pharmacological stress Myoview prior to discharge from the hospital. (2) Congestive heart failure: PLAN: HFpEF. No clinical signs of fluid volume overload. Right ventricle dilated with pulmonary artery systolic pressure of 50 mmHg. Moderate pulmonary hypertension likely secondary to obstructive sleep apnea. (3) Septic shock: PLAN: Resolved with fluids. (4) UTI (urinary tract infection): PLAN: On antibiotics. (5) Super obesity: PLAN: Lose weight. (6) Wheezing: PLAN: On bronchodilator therapy. Started on steroids this morning. Continue to manage as per hospitalist.
[2024-08-15] MEDS: Phenobarbital 32.4 MG Tablet 129.6 MG PO (11:04)
[2024-08-15] MEDS: Methylprednisolone Sod Succ 40 MG/ML VIAL IV ×3 (11:05→20:45)
[2024-08-15] MEDS: Cefepime HCl 2 GM in 0.9% Normal Saline (100mL MB+) 100 ML IV ×2 (11:07→21:01)
[2024-08-15 11:08] LABS: ALB/GLOB Ratio 1.1 RATIO (0.9-2.4); AST(SGOT) 42 U/L (<=31); Alanine Aminotransfer ALT/SGPT 19 U/L (<=34); Albumin, Serum 3.6 g/dL (3.4-4.8); Alkaline Phosphatase 100 U/L (35-104); Anion Gap 11 (5-15); BUN 31 mg/dL (4-19); BUN/Creat Ratio 30.8 RATIO (10-20); Calcium,Total 8.5 mg/dL (7.6-11.0); Carbon Dioxide 24.6 mmol/L (21.0-32.0); Chloride 103 mmol/L (98-108); Creatinine, Serum 1.01 mg/dL (0.70-1.20); EST Glomerular Filtration Rate 58 (>60); Estimated Creatinine Clearance 67.06 ml/min (50-250); Globulin 3.2 g/dL (2.2-4.2); Glucose 101 mg/dL (70-99); Magnesium 1.9 mg/dL (1.5-2.2); Potassium 3.9 mmol/L (3.3-5.1); Protein, Total 6.8 g/dL (5.9-8.4); Sodium Level 139 mmol/L (133-145); Total Bilirubin 0.18 mg/dL (0.00-1.30)
--- NOTE | 2024-08-15 11:42 | EKG12_ITS ---
Test Reason : PRE OP Blood Pressure : */* mmHG Vent. Rate : 65 BPM Atrial Rate : 65 BPM P-R Int : 184 ms QRS Dur : 104 ms QT Int : 426 ms P-R-T Axes : 18 -2 -7 degrees QTcB Int : 443 ms Normal sinus rhythm Cannot rule out Anterior infarct , age undetermined Abnormal ECG When compared with ECG of 15-Aug-2024 11:46, MANUAL COMPARISON REQUIRED DATA IS UNCONFIRMED Confirmed by Benito Bright ([id number]), news copy editor MIRIAM FENG ([id number]) on 08/17/2024 1:01:51 PM Referred By: Confirmed By: Benito Bright
[2024-08-15 12:09] LABS: Phosphorus 2.5 mg/dL (2.7-4.5)
[2024-08-15] MEDS: Furosemide 40 MG/4 ML Vial IV ×2 (12:22→20:43)
--- NOTE | 2024-08-15 14:41 | NURSING ---
Pt w/ audible wheezes. RN called for new order fro diuretic. lasix given. Within 1 hr pt notes i am still tired but I feel better already.wheezes diminished and no longer audible w/o stethoscope
[2024-08-15] MEDS: PALIPERIDONE 3 MG TAB.ER.24 6 MG PO (20:43)
[2024-08-15] MEDS: Atorvastatin Calcium 20 MG Tablet PO (20:43)
[2024-08-15] MEDS: QUEtiapine 100 MG Tablet PO (20:43)
[2024-08-15] MEDS: Levothyroxine 100 MCG Tablet 200 MCG PO (20:43)
[2024-08-15] MEDS: Montelukast 10 MG Tablet PO (20:43)
[2024-08-15] MEDS: Latanoprost 0.005% 1 Bottle 1 DRP OPHTHALMIC (21:09)
[2024-08-15] MEDS: Phenobarbital 32.4 MG Tablet 194.4 MG PO (21:23)
[2024-08-16] VITALS (19 sets, daily range): BP systolic 129–165; BP diastolic 69–86; PULSE 59–124; RESP 12–22; TEMP 36.3–37.2; O2SAT 90–97; BMI 58.1
[2024-08-16 04:52] LABS: Absolute Lymphocyte Count 0.82 X10^3/uL (0.83-4.51); Absolute Neutrophil Count 5.8 X10^3/uL (2.0-7.7); Basophil# 0.01 X10^3/uL; Basophil% 0.1 % (0-1); Eosinophil# 0.01 X10^3/uL; Eosinophils% 0.1 % (0-5); Hematocrit 29.2 % (37-47); Hemoglobin 9.6 g/dL (12.0-15.0); Lymphocyte # 0.82 X10^3/ul (0.83-4.51); Lymphocyte % 11.5 % (19-41); Mean Corp Hgb Conc 32.9 g/dL (32-36); Mean Corpuscular Hgb 32.4 pg (27.0-32.0); Mean Corpuscular Volume 98.6 fL (81-99); Mean Platelet Vol. 10.8 fl (6.2-12.0); Monocyte# 0.44 X10^3/uL; Monocyte% 6.2 % (0-10); NRBC Flagged by Analyzer 0 % (0-5); Neutrophil % 81.4 % (47-70); Platelet Count 163 K/mm3 (150-450); RBC Distribution Width CV 15.9 % (11.6-14.6); RBC Distribution Width SD 57.5 fl (35.1-43.9); Red Blood Count 2.96 M/mm3 (4.2-5.4); White Blood Count 7.1 K/mm3 (4.4-11.0)
[2024-08-16 05:30] LABS: Anion Gap 14 (5-15); BUN 26 mg/dL (4-19); BUN/Creat Ratio 27.2 RATIO (10-20); Calcium,Total 8.6 mg/dL (7.6-11.0); Carbon Dioxide 24.7 mmol/L (21.0-32.0); Chloride 101 mmol/L (98-108); Creatinine, Serum 0.96 mg/dL (0.70-1.20); EST Glomerular Filtration Rate 61 (>60); Estimated Creatinine Clearance 70.55 ml/min (50-250); Glucose 111 mg/dL (70-99); Potassium 3.8 mmol/L (3.3-5.1); Sodium Level 139 mmol/L (133-145)
[2024-08-16] MEDS: metroNIDAZOLE 500 MG/100 ML BAG 100 MG IV ×3 (05:33→23:33)
[2024-08-16] MEDS: Nystatin Powder 15gm Bottle 1 APPLIC TOPICAL ×3 (05:33→23:30)
[2024-08-16] MEDS: Methylprednisolone Sod Succ 40 MG/ML VIAL IV ×3 (05:34→23:29)
[2024-08-16] MEDS: Furosemide 40 MG/4 ML Vial IV ×3 (05:34→23:30)
[2024-08-16] MEDS: Ipratropium/Albuterol Sulfate 3 ML AMPUL.NEB INHALATION ×4 (07:10→19:56)
--- NOTE | 2024-08-16 07:25 | PCM.PN.HOSP ---
Reason for Visit Reason for Visit: Diagnoses Sepsis, unspecified organism (08/13/24) Obesity, unspecified (08/13/24) Non-ST elevation (NSTEMI) myocardial infarction (08/13/24) Heart failure, unspecified (08/13/24) Urinary tract infection, site not specified (08/13/24) Wheezing (08/13/24) Severe sepsis with septic shock (08/13/24) Objective Data Objective Data Vital Signs: Vital Signs Temp Pulse Resp BP Pulse Ox O2 Del Method O2 Flow Rate 99.0 F 60 18 130/86 H 94 Bi-pap 6 08/16/24 04:03 08/16/24 07:10 08/16/24 07:10 08/16/24 04:03 08/16/24 07:10 08/16/24 04:07 08/15/24 22:00 FiO2 35 08/16/24 07:10 Oxygen Flow Rate (L/min) 6 Oxygen Delivery Method Bi-pap Weight: 144.2 kg Body Mass Index (BMI) 58.1 Intake & Output: Intake and Output for Last 24 Hours 08/14/24 08/15/24 08/17/24 23:59 23:59 00:59 Intake Total 1014.65 / 1014.65 985 / 985 100 / 100 Output Total 1075 / 1075 3050 / 3050 Balance -60.35 / -60.35 -2065 / -2065 100 / 100 Lab / Micro Data 08/16/24 04:12 08/16/24 04:12 Labs: Laboratory Results - last 24 hr 08/15/24 06:32: Vancomycin Trough 19.2 H 08/15/24 06:33: WBC 9.9, RBC 2.97 L, Hgb 9.5 L, Hct 29.6 L, MCV 99.7 H, MCH 32.0, MCHC 32.1, RDW Std Deviation 58.9 H, RDW Coeff of Piedad 16.0 H, Plt Count 160, MPV 11.1, Sodium 139, Potassium 3.9, Chloride 103, Carbon Dioxide 24.6, Anion Gap 11, BUN 31 H, Creatinine 1.01, Estim Creat Clear Calc 67.06, Est GFR (MDRD) Non-Af 58 L, BUN/Creatinine Ratio 30.8 H, Glucose 101 H, Calcium 8.5, Phosphorus 2.5 L, Magnesium 1.9, Total Bilirubin 0.18, AST 42 H, ALT 19, Alkaline Phosphatase 100, Total Protein 6.8, Albumin 3.6, Globulin 3.2, Albumin/Globulin Ratio 1.1 08/16/24 04:12: WBC 7.1, RBC 2.96 L, Hgb 9.6 L, Hct 29.2 L, MCV 98.6, MCH 32.4 H, MCHC 32.9, RDW Std Deviation 57.5 H, RDW Coeff of Piedad 15.9 H, Plt Count 163, MPV 10.8, Immature Gran % (Auto) 0.700, Neut % (Auto) 81.4 H, Lymph % (Auto) 11.5 L, [place] % (Auto) 6.2, Eos % (Auto) 0.1, Baso % (Auto) 0.1, Absolute Neuts (auto) 5.8, Absolute Lymphs (auto) 0.82 L, Nucleated RBC % 0, Sodium 139, Potassium 3.8, Chloride 101, Carbon Dioxide 24.7, Anion Gap 14, BUN 26 H, Creatinine 0.96, Estim Creat Clear Calc 70.55, Est GFR (MDRD) Non-Af 61, BUN/Creatinine Ratio 27.2 H, Glucose 111 H, Calcium 8.6 Micro: Microbiology 08/14/24 08:45 Sputum, Expectorated/Coughed Gram Stain - Final 08/14/24 08:45 Sputum, Expectorated/Coughed Respiratory Culture - Preliminary Beta hemolytic organism 08/13/24 16:10 Urine, Catheterized Urine Culture - Final Streptococcus agalactiae (B) 08/13/24 13:35 Mucosa - Nasopharyngeal Respiratory Panel (PCR) - Final 08/13/24 Unknown Mucosa - Nasopharyngeal SARS-CoV-2, Influenza & RSV (PCR) - Final 08/13/24 22:01 Nasal Secretion MRSA (PCR) - Final 08/13/24 22:01 Urine Catheter - Catheter Legionella Antigen - Final 08/13/24 22:01 Urine Catheter - Catheter Streptococcus pneumoniae Antigen (M - Final Rhythm Strip Rhythm Strip: Sinus Rhythm Physical Exam Narrative GENERAL: Patient appears ill looking HEENT: Atraumatic; normocephalic EYES; Anicteric, Normal Conjunctiva NECK; supple, normal thyroid, RESPIRATORY: Diminished to auscultation with bilateral rhonchi and wheezes CARDIOVASCULAR: Regular S1 S2, tachycardic GI: soft, normoactive bowel sounds, : No Renal angle tenderness; EXTREMITIES: edema, no clubbing, MUSCULOSKELETAL: no muscle wasting NEURO: Awake; no lateralizing signs. SKIN: No Rash PSYCH; Flat affect Assessment & Plan Assessment/Plan (1) Septic shock: PLAN: Plan Patient is a 74-year-old lady resident at [facility] who was brought to the emergency department with shortness of breath. She was reported to have vomited and route with concern for aspiration chest x-ray obtained on admission demonstrated bilateral pulmonary venous congestion. An assessment of acute hypoxic respiratory failure was made patient started on BiPAP admitted to the intensive care unit for further management 1. Acute hypoxic respiratory failure ? Multifactorial including bilateral pulmonary venous congestion, aspiration pneumonia patient was placed on noninvasive ventilation started on broad-spectrum antibiotic therapy admitted to the intensive care unit with consult placed to nursing director ? 08/16/2024; patient was placed on BiPAP at night. With patient going into intermittent respiratory distress the day prior ordered portable chest x-ray this a.m. for subsequent 2. Septic shock ? Secondary to a combination of acute cystitis as well as recent influenza A infection with suspected bacterial pneumonia. Patient was started on broad-spectrum antibiotic therapy after cultures have been initiated. Patient was not resuscitated with IV fluids per protocol given concern for fluid overload status ? 08/15/2024 patient blood pressure has stabilized. Urine cultures positive for Streptococcus agalactiae patient remains on appropriate antibiotic therapy 3. Acute cystitis ? With Streptococcus agalactiae management as discussed above 4. Acute congestive heart failure?unspecified ? Patient management noninvasive ventilation BiPAP Lasix was held off given concern for relatively low blood pressure. Serial cardiac enzymes and echo ordered and cardiology consulted by admitting physician ? 08/15/2024 patient seen in consultation by cardiology notes and recommendations reviewed. 2D echo obtained did show Mild concentric left ventricular hypertrophy. The left ventricular ejection fraction is 60 %. Stage 1 diastolic dysfunction. Moderately dilated RV with moderate systolic dysfunction. The left atrium is moderately enlarged. Mild (1+) mitral valve insufficiency. Mild to moderate (1-2+) tricuspid valve insufficiency. Right ventricular systolic pressure estimated to be 50 mmHg. ? 08/16/2024; patient is in negative fluid balance of 3 L over the past 24 5. Elevated troponin ? Suspected to be secondary to demand ischemia from above echo has been ordered subsequent serial cardiac enzymes ordered 6. Elevated D-dimer ? Patient was started on heparin CTA was not ordered given patient acute kidney injury most show patient has allergy to dye plan is for patient to undergo evaluation VQ scan as well as lower extremity duplex ? 08/15/2024 patient bilateral venous duplex as well as VQ scan came back unremarkable systemic anticoagulation with heparin discontinued 7. Acute kidney injury ? Creatinine from 06/04/2024 was 0.82 creatinine on admission was 1.48 creatinine did bump up to 1.55. Patient AC suspected secondary to ischemic ATN 8. Anemia ? Secondary to chronic disorder monitoring H&H and transfuse if patient becomes symptomatic or hemoglobin falls below 7 ? 08/16/2024 hemoglobin remains low at 9.6 9. Hypothyroidism ? Patient is on levothyroxine home dose continued 10. Essential hypertension ? Patient is on losartan as well as HCTZ held given relatively low blood pressure as well as impaired kidney function 11. GERD ? Patient is on PPI 12. Schizophrenia ? Plan is to continue patient antipsychotic medications 13. Seizure disorder -controlled on phenobarbital plan is to resume following med rec 14. COPD/asthma ? Bronchodilator treatment as needed 15. Dyslipidemia ?Patient is on statin therapy, continued at home dose 16 . DVT prophylaxis ? Patient is on heparin Time spent in the patient's overall evaluation,decision-making process, review of diagnostic data, adjustment of management, discussion with other providers, nursing nursing and ancillary staff involved in patient's care documentation, 50 Minutes Charges/Coding Visit Charges Inpatient E&M: 59336 [facility] L3
--- NOTE | 2024-08-16 08:20 | RAD_ITS ---
PROCEDURE: CHEST 1 VIEW (PORTABLE) REASON FOR EXAM: 74-year-old female, shortness of breath. TECHNIQUE: Frontal view of the chest. COMPARISON: V/Q scan 08/14/2024. chest radiograph 08/13/2024. FINDINGS: The cardiomediastinal silhouette is moderately enlarged. Unchanged marked right perihilar infiltrates. Small right pleural effusion. No pneumothorax. Degenerative changes are identified within the thoracic spine. RAD/Chest 1 View (Portable) IMPRESSION: Stable right perihilar infiltrates, which may represent pneumonitis/pneumonia. Small right pleural effusion. Reading Location: [id number]
[2024-08-16] MEDS: Escitalopram Oxalate 10 MG Tablet PO (09:19)
[2024-08-16] MEDS: Clopidogrel Bisulfate 75 MG Tablet PO (09:19)
[2024-08-16] MEDS: Pantoprazole Sodium 40 MG Tablet PO ×2 (09:19→23:28)
[2024-08-16] MEDS: Heparin Injection (Vial) 5,000 UNIT/ML VIAL 5000 UNIT SC ×2 (09:19→23:31)
[2024-08-16] MEDS: Menthol/Lanolin/Calamine/Znox 113 GM Tube 1 APPLIC TOPICAL ×3 (09:20→23:31)
[2024-08-16] MEDS: Acetaminophen 325 MG Tablet 650 MG PO (09:37)
[2024-08-16] MEDS: Phenobarbital 32.4 MG Tablet 129.6 MG PO (09:37)
[2024-08-16] MEDS: clonazePAM 0.5 MG Tablet PO ×2 (09:37→23:30)
[2024-08-16] MEDS: Cefepime HCl 2 GM in 0.9% Normal Saline (100mL MB+) 100 ML IV ×2 (09:59→23:32)
[2024-08-16] MEDS: 0.9% Saline Lock 10 ML Syringe IV (13:19)
[2024-08-16] MEDS: QUEtiapine 100 MG Tablet PO (23:28)
[2024-08-16] MEDS: Levothyroxine 100 MCG Tablet 200 MCG PO (23:29)
[2024-08-16] MEDS: Atorvastatin Calcium 20 MG Tablet PO (23:29)
[2024-08-16] MEDS: PALIPERIDONE 3 MG TAB.ER.24 6 MG PO (23:29)
[2024-08-16] MEDS: Montelukast 10 MG Tablet PO (23:29)
[2024-08-16] MEDS: Phenobarbital 32.4 MG Tablet 194.4 MG PO (23:30)
[2024-08-16] MEDS: Latanoprost 0.005% 1 Bottle 1 DRP OPHTHALMIC (23:32)
[2024-08-17] VITALS (9 sets, daily range): BP systolic 148–170; BP diastolic 71–88; PULSE 61–79; RESP 12–19; TEMP 36.1–36.6; O2SAT 88–96
[2024-08-17 03:36] LABS: Absolute Lymphocyte Count 0.87 X10^3/uL (0.83-4.51); Absolute Neutrophil Count 6.2 X10^3/uL (2.0-7.7); Basophil# 0.02 X10^3/uL; Basophil% 0.3 % (0-1); Eosinophil# 0.08 X10^3/uL; Hematocrit 31.2 % (37-47); Hemoglobin 10.2 g/dL (12.0-15.0); Lymphocyte # 0.87 X10^3/ul (0.83-4.51); Lymphocyte % 11.3 % (19-41); Mean Corp Hgb Conc 32.7 g/dL (32-36); Mean Corpuscular Hgb 32.4 pg (27.0-32.0); Mean Platelet Vol. 10.5 fl (6.2-12.0); Monocyte# 0.53 X10^3/uL; Monocyte% 6.9 % (0-10); NRBC Flagged by Analyzer 0.3 % (0-5); Neutrophil # 6.15 X10^3/uL (2.7-7.7); Neutrophil % 79.9 % (47-70); Platelet Count 209 K/mm3 (150-450); RBC Distribution Width CV 15.7 % (11.6-14.6); RBC Distribution Width SD 56.3 fl (35.1-43.9); Red Blood Count 3.15 M/mm3 (4.2-5.4); White Blood Count 7.7 K/mm3 (4.4-11.0)
[2024-08-17] MEDS: metroNIDAZOLE 500 MG/100 ML BAG 100 MG IV (05:40)
[2024-08-17] MEDS: 0.9% Saline Lock 10 ML Syringe IV (05:40)
[2024-08-17] MEDS: Furosemide 40 MG/4 ML Vial IV (05:40)
--- NOTE | 2024-08-17 05:55 | EKG12_ITS ---
Test Reason : RHYTHM CHANGE Blood Pressure : */* mmHG Vent. Rate : 104 BPM Atrial Rate : 104 BPM P-R Int : 182 ms QRS Dur : 82 ms QT Int : 310 ms P-R-T Axes : 20 -3 -15 degrees QTcB Int : 407 ms Sinus tachycardia Nonspecific T wave abnormality Abnormal ECG When compared with ECG of 13-Aug-2024 15:47, [place] interval has decreased Confirmed by Benito Bright ([id number]), editor book MIRIAM FENG ([id number]) on 08/17/2024 1:01:59 PM Referred By: ANA Confirmed By: Benito Bright
[2024-08-17] MEDS: Methylprednisolone Sod Succ 40 MG/ML VIAL IV (06:15)
[2024-08-17] MEDS: Ipratropium/Albuterol Sulfate 3 ML AMPUL.NEB INHALATION (07:19)
--- NOTE | 2024-08-17 07:39 | PN.HOSP_ITS ---
Reason for Visit Reason for Visit: Diagnoses Sepsis, unspecified organism (08/13/24) Obesity, unspecified (08/13/24) Non-ST elevation (NSTEMI) myocardial infarction (08/13/24) Heart failure, unspecified (08/13/24) Urinary tract infection, site not specified (08/13/24) Wheezing (08/13/24) Severe sepsis with septic shock (08/13/24) Subjective Subjective Patient seen had a relatively uneventful night. Case was discussed with Dr. Saini with cardiology recommended for patient to undergo nuclear stress test Objective Data Objective Data Vital Signs: Vital Signs Temp Pulse Resp BP Pulse Ox O2 Del Method O2 Flow Rate 97.3 F L 61 14 129/79 H 93 Bi-pap 2 08/16/24 16:14 08/17/24 03:23 08/17/24 03:23 08/16/24 16:14 08/17/24 03:23 08/17/24 03:49 08/16/24 22:00 FiO2 30 08/17/24 03:23 Oxygen Flow Rate (L/min) 2 Oxygen Delivery Method Bi-pap Weight: 144.2 kg Body Mass Index (BMI) 58.1 Intake & Output: Intake and Output for Last 24 Hours 08/15/24 08/17/24 08/17/24 23:59 00:59 23:59 Intake Total 985 / 985 1260 / 1260 300 / 300 Output Total 3050 / 3050 3100 / 3100 Balance -2065 / -2065 -1840 / -1840 300 / 300 Lab / Micro Data 08/17/24 03:09 08/16/24 04:12 Labs: Laboratory Results - last 24 hr 08/17/24 03:09: WBC 7.7, RBC 3.15 L, Hgb 10.2 L, Hct 31.2 L, MCV 99.0, MCH 32.4 H, MCHC 32.7, RDW Std Deviation 56.3 H, RDW Coeff of Piedad 15.7 H, Plt Count 209, MPV 10.5, Immature Gran % (Auto) 0.600, Neut % (Auto) 79.9 H, Lymph % (Auto) 11.3 L, [place] % (Auto) 6.9, Eos % (Auto) 1.0, Baso % (Auto) 0.3, Absolute Neuts (auto) 6.2, Absolute Lymphs (auto) 0.87, Nucleated RBC % 0.3 Micro: Microbiology 08/14/24 08:45 Sputum, Expectorated/Coughed Gram Stain - Final 08/14/24 08:45 Sputum, Expectorated/Coughed Respiratory Culture - Preliminary Streptococcus agalactiae (B) 08/13/24 15:50 Blood Culture (Wb) - Venous Blood Culture - Preliminary No growth in 48 hours. 08/13/24 15:50 Blood Culture (Wb) - Venous Blood Culture - Preliminary No growth in 48 hours. 08/13/24 16:10 Urine, Catheterized Urine Culture - Final Streptococcus agalactiae (B) 08/13/24 13:35 Mucosa - Nasopharyngeal Respiratory Panel (PCR) - Final 08/13/24 Unknown Mucosa - Nasopharyngeal SARS-CoV-2, Influenza & RSV (PCR) - Final 08/13/24 22:01 Nasal Secretion MRSA (PCR) - Final 08/13/24 22:01 Urine Catheter - Catheter Legionella Antigen - Final 08/13/24 22:01 Urine Catheter - Catheter Streptococcus pneumoniae Antigen (M - Final Radiography Diagnostic Testing: Radiology Impression Chest X-Ray 08/16/24 08:20 IMPRESSION: Stable right perihilar infiltrates, which may represent pneumonitis/pneumonia. Small right pleural effusion. Reading Location: [facility] Rhythm Strip Rhythm Strip: Sinus Rhythm Physical Exam Narrative GENERAL: Patient appears ill looking HEENT: Atraumatic; normocephalic EYES; Anicteric, Normal Conjunctiva NECK; supple, normal thyroid, RESPIRATORY: Diminished to auscultation with bilateral rhonchi and wheezes CARDIOVASCULAR: Regular S1 S2, tachycardic GI: soft, normoactive bowel sounds, : No Renal angle tenderness; EXTREMITIES: edema, no clubbing, MUSCULOSKELETAL: no muscle wasting NEURO: Awake; no lateralizing signs. SKIN: No Rash PSYCH; Flat affect Assessment & Plan Assessment/Plan (1) Septic shock: PLAN: Plan Patient is a 74-year-old lady resident at [facility] who was brought to the emergency department with shortness of breath. She was reported to have vomited and route with concern for aspiration chest x-ray obtained on admission demonstrated bilateral pulmonary venous congestion. An assessment of acute hypoxic respiratory failure was made patient started on BiPAP admitted to the intensive care unit for further management 1. Acute hypoxic respiratory failure ? Multifactorial including bilateral pulmonary venous congestion, aspiration pneumonia patient was placed on noninvasive ventilation started on broad- spectrum antibiotic therapy admitted to the intensive care unit with consult placed to business performance advisor ? 08/16/2024; patient was placed on BiPAP at night. With patient going into intermittent respiratory distress the day prior ordered portable chest x-ray this a.m. for subsequent 2. Septic shock ? Secondary to a combination of acute cystitis as well as recent influenza A infection with suspected bacterial pneumonia. Patient was started on broad- spectrum antibiotic therapy after cultures have been initiated. Patient was not resuscitated with IV fluids per protocol given concern for fluid overload status ? 08/15/2024 patient blood pressure has stabilized. Urine cultures positive for Streptococcus agalactiae patient remains on appropriate antibiotic therapy 3. Acute cystitis ? With Streptococcus agalactiae management as discussed above 4. Acute congestive heart failure?unspecified ? Patient management noninvasive ventilation BiPAP Lasix was held off given concern for relatively low blood pressure. Serial cardiac enzymes and echo ordered and cardiology consulted by admitting physician ? 08/15/2024 patient seen in consultation by cardiology notes and recommendations reviewed. 2D echo obtained did show Mild concentric left ventricular hypertrophy. The left ventricular ejection fraction is 60 %. Stage 1 diastolic dysfunction. Moderately dilated RV with moderate systolic dysfunction. The left atrium is moderately enlarged. Mild (1+) mitral valve insufficiency. Mild to moderate (1-2+) tricuspid valve insufficiency. Right ventricular systolic pressure estimated to be 50 mmHg. ? 08/16/2024; patient is in negative fluid balance of 3 L over the past 24 5. Elevated troponin ? Suspected to be secondary to demand ischemia from above echo has been ordered subsequent serial cardiac enzymes ordered ? 08/17/2024 Case was discussed with Dr. Saini with cardiology recommended for patient to undergo nuclear stress test 6. Elevated D-dimer ? Patient was started on heparin CTA was not ordered given patient acute kidney injury most show patient has allergy to dye plan is for patient to undergo evaluation VQ scan as well as lower extremity duplex ? 08/15/2024 patient bilateral venous duplex as well as VQ scan came back unremarkable systemic anticoagulation with heparin discontinued 7. Acute kidney injury ? Creatinine from 06/04/2024 was 0.82 creatinine on admission was 1.48 creatinine did bump up to 1.55. Patient AC suspected secondary to ischemic ATN 8. Anemia ? Secondary to chronic disorder monitoring H&H and transfuse if patient becomes symptomatic or hemoglobin falls below 7 ? 08/16/2024 hemoglobin remains low at 9.6 9. Hypothyroidism ? Patient is on levothyroxine home dose continued 10. Essential hypertension ? Patient is on losartan as well as HCTZ held given relatively low blood pressure as well as impaired kidney function 11. GERD ? Patient is on PPI 12. Schizophrenia ? Plan is to continue patient antipsychotic medications 13. Seizure disorder -controlled on phenobarbital plan is to resume following med rec 14. COPD/asthma ? Bronchodilator treatment as needed 15. Dyslipidemia ?Patient is on statin therapy, continued at home dose 16 . DVT prophylaxis ? Patient is on heparin Time spent in the patient's overall evaluation,decision-making process, review of diagnostic data, adjustment of management, discussion with other providers, nursing nursing and ancillary staff involved in patient's care documentation, 36 minutes Charges/Coding Visit Charges Inpatient E&M: 57238 Subs Hosp L2
[2024-08-17 07:49] LABS: Anion Gap 19 (5-15); BUN 35 mg/dL (4-19); BUN/Creat Ratio 41.4 RATIO (10-20); Carbon Dioxide 24.6 mmol/L (21.0-32.0); Chloride 99 mmol/L (98-108); Creatinine, Serum 0.85 mg/dL (0.70-1.20); EST Glomerular Filtration Rate 72 (>60); Estimated Creatinine Clearance 79.21 ml/min (50-250); Glucose 134 mg/dL (70-99); Potassium 3.6 mmol/L (3.3-5.1); Sodium Level 143 mmol/L (133-145)
--- NOTE | 2024-08-17 10:55 | PN.CARD_ITS ---
Subjective Subjective Patient is resting in the bed on oxygen. She is afraid to go back to the extended care facility without oxygen as she was discharged last time and came right back due to shortness of breath. Patient's pharmacologic nuclear stress test showed no evidence of active ischemia. Objective Data Vital Signs: Vital Signs Temp Pulse Resp BP Pulse Ox O2 Del Method O2 Flow Rate 97 F L 78 19 H 170/88 H 96 Nasal Cannula 3 08/17/24 06:00 08/17/24 07:15 08/17/24 07:15 08/17/24 06:00 08/17/24 08:19 08/17/24 08:19 08/17/24 08:19 FiO2 30 08/17/24 03:23 Oxygen Flow Rate (L/min) 3 Oxygen Delivery Method Nasal Cannula Weight: 317 lb 14.505 oz Body Mass Index (BMI) 58.1 Intake & Output: Intake and Output for Last 24 Hours 08/15/24 08/17/24 08/17/24 23:59 00:59 23:59 Intake Total 985 / 985 1260 / 1500 540 / 540 Output Total 3050 / 3050 3100 / 4300 1900 / 1900 Balance -2065 / -2065 -1840 / -2800 -1360 / -1360 Lab / Micro Data 08/17/24 03:09 08/17/24 03:09 Labs: Laboratory Results - last 24 hr 08/17/24 03:09: WBC 7.7, RBC 3.15 L, Hgb 10.2 L, Hct 31.2 L, MCV 99.0, MCH 32.4 H, MCHC 32.7, RDW Std Deviation 56.3 H, RDW Coeff of Piedad 15.7 H, Plt Count 209, MPV 10.5, Immature Gran % (Auto) 0.600, Neut % (Auto) 79.9 H, Lymph % (Auto) 11.3 L, [place] % (Auto) 6.9, Eos % (Auto) 1.0, Baso % (Auto) 0.3, Absolute Neuts (auto) 6.2, Absolute Lymphs (auto) 0.87, Nucleated RBC % 0.3, Sodium 143, Potassium 3.6, Chloride 99, Carbon Dioxide 24.6, Anion Gap 19 H, BUN 35 H, Creatinine 0.85, Estim Creat Clear Calc 79.21, Est GFR (MDRD) Non-Af 72, B UN/Creatinine Ratio 41.4 H, Glucose 134 H, Calcium 9.0 Micro: Microbiology 08/14/24 08:45 Sputum, Expectorated/Coughed Gram Stain - Final 08/14/24 08:45 Sputum, Expectorated/Coughed Respiratory Culture - Final Streptococcus agalactiae (B) 08/13/24 15:50 Blood Culture (Wb) - Venous Blood Culture - Preliminary No growth in 48 hours. 08/13/24 15:50 Blood Culture (Wb) - Venous Blood Culture - Preliminary No growth in 48 hours. Cardiology Labs/Tests 08/17/24 03:09: WBC 7.7, RBC 3.15 L, Hgb 10.2 L, Hct 31.2 L, MCV 99.0, MCH 32.4 H, MCHC 32.7, Plt Count 209, MPV 10.5, Immature Gran % (Auto) 0.600, Neut % (Auto) 79.9 H, Lymph % (Auto) 11.3 L, [place] % (Auto) 6.9, Eos % (Auto) 1.0, Baso % (Auto) 0.3, Absolute Neuts (auto) 6.2, Nucleated RBC % 0.3, Sodium 143, Potassium 3.6, Chloride 99, Carbon Dioxide 24.6, Anion Gap 19 H, BUN 35 H, Creatinine 0.85, Est GFR (MDRD) Non-Af 72, BUN/Creatinine Ratio 41.4 H, Glucose 134 H, Calcium 9.0 Rhythm: EKG: ECHO: Stress Test: Cardiac Cath: PCI: CT Surgery: Holter monitor: EPS: PPM: CXR: Chest CT Scan: Radiography Diagnostic Testing: Radiology Impression Venous Doppler Study 08/14/24 00:10 Interpretation Summary Deep veins of the bilateral lower extremities are patent and compressible segmentally. There is no evidence of bilateral lower extremity deep vein thrombosis. The bilateral great saphenous veins appear patent and compressible segmentally. Limited study Ordering Physician: Ibeth Parker Referring Physician: Panda Mota Performed By: Corona Givens RVT Physical Exam Narrative Morbidly obese resting in recumbent position in bed. Const Constitutional Narrative: Patient's alert but slightly drowsy. HEENT normocephalic Eyes PERRL Neck Neck Narrative: Thick neck no obvious JVD. Chest Chest Narrative: Increased AP diameter due to morbid obesity Resp normal respiratory effort Auscultation: diminished lung sounds bilateral lower Cardio regular rate, regular rhythm, S1 normal heart sound, S2 normal heart sound, no murmurs, no rub and no gallops Cardio Narrative: Very distant heart tones due to body habitus. GI GI Narrative: Obese Extremity no pedal edema Psych mental status grossly normal Assessment & Plan Assessment/Plan (1) Congestive heart failure: QUALIFIERS: Heart failure type: diastolic Heart failure chronicity: acute on chronic Qualified Code(s): I50.33 - Acute on chronic diastolic (congestive) heart failure PLAN: Patient has a history of heart failure preserved ejection fraction. She is recovering from her respiratory insufficiency upon presentation. LV ejection fraction was normal. (2) Type 2 ND (myocardial infarction): PLAN: Patient's troponins were 300 -400. Pharmacologic nuclear stress test shows no evidence of active ischemia. I feel this was a type II event related to her respiratory insufficiency. From a cardiovascular standpoint no further evaluation is indicated and the patient could be discharged back to her extended care facility. She should be continued on diuretic therapy after discharge. She should also be considered for SGLT2 inhibitor if financially available. PLAN: Plan 1. Continue with diuresis. 2. Would discharge to extended-care facility on long-term oral diuretics. 3. Consider adding SGLT2 inhibitor 4. She had follow-up with cardiology as needed in 2-4 weeks or per previously arranged appointment. Charges/Coding Visit Charges Inpatient E&M: 23100 Subs Hosp L2
--- NOTE | 2024-08-17 10:58 | STRESSREP_ITS ---
Stress Test Report Date: 08/17/2024 Procedure: Pharmacologic stress nuclear imaging study Indications: Elevated troponin Consent: Per the patient Procedure: The patient underwent pharmacologic (Regadenoson) evaluation with a peak heart rate of 105 beats per minute (72%predicted maximal heart rate) and a peak blood pressure of 152/82 mmHg. The baseline ECG demonstrated normal sinus rhythm. EKG during lexiscan infusion revealed no significant ischemic changes. EKG post infusion revealed no significant ischemic changes [There were no cardiac dysrhythmias pretest, during pharmacologic infusion, or recovery]. [There was no complaint of chest discomfort during pharmacologic infusion or recovery]. The examination was discontinued secondary to completion of protocol. Impression: 1. Lexiscan stress test test is negative for Lexiscan infusion induced EKG changes of ischemia. 2. Lexiscan stress test test is negative for Lexiscan infusion induced chest pain. 3. Results of the nuclear portion of the test is as below Myocardial perfusion imaging study: Technique: The patient was injected with 14.9 millicuries of technetium 99m Cardiolite and subsequently rest SPECT Cardiolite nuclear imaging was obtained in the horizontal long, vertical long, and short axis views. The patient underwent pharmacologic [Regadenoson 0.4mg] evaluation. Please see above for details. The patient was injected with 44.5 millicuries of technetium 99m Cardiolite and subsequently stress SPECT Cardiolite nuclear imaging was obtained in the horizon leobardo long, vertical long, and short axis views. A gated Cardiolite study at peak stress was obtained. Interpretation: Rest and stress SPECT Cardiolite nuclear imaging status post realignment, norm alization, and attenuation correction demonstrate decreased uptake in the apex on both the rest and stress images. Gated images reveal hypokinesis of the apex, anterior wall, septum and inferior wall. The reported LVEF is 56%. These findings are suggestive of prior apical myocardial infarction. No significant ischemia noted. Impression: 1. There is no evidence of significant ischemia. 2. Estimated ejection fraction is 56%. This note was generated with [employer] software. It may contain incorrect words, spelling, and punctuation that were not noted in checking the note before signing.
[2024-08-17] MEDS: Pantoprazole Sodium 40 MG Tablet PO (10:59)
[2024-08-17] MEDS: Clopidogrel Bisulfate 75 MG Tablet PO (10:59)
[2024-08-17] MEDS: clonazePAM 0.5 MG Tablet PO (10:59)
[2024-08-17] MEDS: Escitalopram Oxalate 10 MG Tablet PO (10:59)
[2024-08-17] MEDS: Phenobarbital 32.4 MG Tablet 129.6 MG PO (10:59)
[2024-08-17] MEDS: Cefepime HCl 2 GM in 0.9% Normal Saline (100mL MB+) 100 ML IV (11:00)
[2024-08-17] MEDS: Menthol/Lanolin/Calamine/Znox 113 GM Tube 1 APPLIC TOPICAL (11:06)
--- NOTE | 2024-08-17 11:18 | PCM.DC.SUM ---
Providers Date of Admission: 08/13/24 Date of Discharge: 08/17/24 Primary Care Physician: Dr. Panda Mota MD Consultations 08/13/24 20:54 Consult: Cardiology Routine Consulting Provider: Rubina Saini Reason for Consult: Resp failure, HF Exac, NSTEMI demand related likely, Shock/UTI/PNA EMERGENT Consult: No Notified: Yes Date Notified: 08/13/24 Time Notified: 20:45 Method of Notification: Text Consult: Exotic Dancer / Pulmonary Medicine Routine Consulting Provider: Pulmonary Medicine chad Talmage Reason for Consult: Resp distress, Septic shock, UTI/?Asp PNA, Influenza, HF Exac, NSTEMI EMERGENT Consult: No Notified: Yes Date Notified: 08/13/24 Time Notified: 20:37 Method of Notification: Text Comments:: Please send consult through to have patient seen. Reason For Visit: SEPTIC SHOCK, HF EXAC, NSTEMI, UTI, RESP FAILURE Diagnosis Discharge Diagnosis (1) Congestive heart failure: Status: Acute Code(s): I50.9 - Heart failure, unspecified (2) Type 2 TX (myocardial infarction): Status: Acute Code(s): I21.A1 - Myocardial infarction type 2 Plan Patient is a 74-year-old lady resident at [facility] who was brought to the emergency department with shortness of breath. She was reported to have vomited and route with concern for aspiration chest x-ray obtained on admission demonstrated bilateral pulmonary venous congestion. An assessment of acute hypoxic respiratory failure was made patient started on BiPAP admitted to the intensive care unit for further management 1. Acute hypoxic respiratory failure ? Multifactorial including bilateral pulmonary venous congestion, aspiration pneumonia patient was placed on noninvasive ventilation started on broad-spectrum antibiotic therapy admitted to the intensive care unit with consult placed to visual basic .net developer ? 08/16/2024; patient was placed on BiPAP at night. With patient going into intermittent respiratory distress the day prior ordered portable chest x-ray this a.m. for subsequent ? Patient was assessed for home oxygen prior to being sent back to her [facility] 2. Septic shock ? Secondary to a combination of acute cystitis as well as recent influenza A infection with suspected bacterial pneumonia. Patient was started on broad-spectrum antibiotic therapy after cultures have been initiated. Patient was not resuscitated with IV fluids per protocol given concern for fluid overload status ? 08/15/2024 patient blood pressure has stabilized. Urine cultures positive for Streptococcus agalactiae patient remains on appropriate antibiotic therapy 3. Acute cystitis ? With Streptococcus agalactiae management as discussed above 4. Acute congestive heart failure?unspecified ? Patient management noninvasive ventilation BiPAP Lasix was held off given concern for relatively low blood pressure. Serial cardiac enzymes and echo ordered and cardiology consulted by admitting physician ? 08/15/2024 patient seen in consultation by cardiology notes and recommendations reviewed. 2D echo obtained did show Mild concentric left ventricular hypertrophy. The left ventricular ejection fraction is 60 %. Stage 1 diastolic dysfunction. Moderately dilated RV with moderate systolic dysfunction. The left atrium is moderately enlarged. Mild (1+) mitral valve insufficiency. Mild to moderate (1-2+) tricuspid valve insufficiency. Right ventricular systolic pressure estimated to be 50 mmHg. ? 08/16/2024; patient is in negative fluid balance of 3 L over the past 24 5. Elevated troponin ? Suspected to be secondary to demand ischemia from above echo has been ordered subsequent serial cardiac enzymes ordered ? 08/17/2024 Case was discussed with Dr. Saini with cardiology recommended for patient to undergo nuclear stress test. Patient nuclear stress test was negative for stress-induced ischemia 6. Elevated D-dimer ? Patient was started on heparin CTA was not ordered given patient acute kidney injury most show patient has allergy to dye plan is for patient to undergo evaluation VQ scan as well as lower extremity duplex ? 08/15/2024 patient bilateral venous duplex as well as VQ scan came back unremarkable systemic anticoagulation with heparin discontinued 7. Acute kidney injury ? Creatinine from 06/04/2024 was 0.82 creatinine on admission was 1.48 creatinine did bump up to 1.55. Patient AC suspected secondary to ischemic ATN 8. Anemia ? Secondary to chronic disorder monitoring H&H and transfuse if patient becomes symptomatic or hemoglobin falls below 7 ? 08/16/2024 hemoglobin remains low at 9.6 9. Hypothyroidism ? Patient is on levothyroxine home dose continued 10. Essential hypertension ? Patient is on losartan as well as HCTZ held given relatively low blood pressure as well as impaired kidney function 11. GERD ? Patient is on PPI 12. Schizophrenia ? Plan is to continue patient antipsychotic medications 13. Seizure disorder -controlled on phenobarbital plan is to resume following med rec 14. COPD/asthma ? Bronchodilator treatment as needed 15. Dyslipidemia ?Patient is on statin therapy, continued at home dose 16 . DVT prophylaxis ? Patient is on heparin Time spent in the patient's overall evaluation,decision-making process, review of diagnostic data, adjustment of management, discussion with other providers, nursing nursing and ancillary staff involved in patient's care documentation, 36 minutes Medications at Discharge Home Medications clopidogrel 75 mg tablet 75 mg PO DAILY 03/28/13 metoprolol succinate 100 mg tablet,extended release 24 hr 100 mg PO DAILY 03/28/13 paliperidone 6 mg tablet,extended release 24 hr 6 mg PO QHS 01/31/17 montelukast 10 mg tablet 10 mg PO QHS #90 tabs 12/03/22 albuterol sulfate 2.5 mg/3 mL (0.083 %) solution for nebulization 2.5 mg inhalation DAILY PRN shortness of breath or wheezing 11/27/23 atorvastatin 20 mg tablet 20 mg PO QHS 11/27/23 clonazepam 0.5 mg tablet 0.5 mg PO BID 11/27/23 fluticasone propionate 220 mcg/actuation HFA aerosol inhaler 2 inh inhalation BID 11/27/23 latanoprost 0.005 % eye drops 1 drp ophthalmic (eye) QHS 11/27/23 losartan 50 mg tablet 50 mg PO DAILY 11/27/23 phenobarbital 60 mg tablet 120 mg PO 0800 11/27/23 phenobarbital 60 mg tablet 180 mg PO SUMOWETHSA seizures 11/27/23 polyethylene glycol 3350 17 gram/dose oral powder (Miralax) 17 g PO DAILY PRN CONSTIPATION 11/27/23 propylene glycol 1 %-glycerin 0.3 % eye drops (Artificial Tears (glycerin-peg)) 2 drp ophthalmic (eye) Q4H PRN dry eye(s) 11/27/23 acetaminophen 500 mg tablet 500 mg PO Q6H PRN pain 03/11/24 cholecalciferol (vitamin D3) 25 mcg (1,000 unit) tablet 50 mcg PO DAILY 03/11/24 levothyroxine 200 mcg tablet 200 mcg PO QHS 03/11/24 nifedipine 90 mg tablet,extended release 90 mg PO DAILY 03/11/24 phenobarbital 60 mg tablet 60 mg PO TUFR seizures 03/11/24 escitalopram oxalate 10 mg tablet 10 mg PO DAILY #0 tabs 03/16/24 albuterol sulfate 90 mcg/actuation aerosol inhaler 2 puff inhalation Q4H PRN shortness of breath or wheezing 08/13/24 ondansetron 4 mg disintegrating tablet 4 mg PO Q4H PRN nausea and vomiting 08/13/24 pantoprazole 40 mg tablet,delayed release (Protonix) 40 mg PO BID 08/13/24 quetiapine 100 mg tablet 100 mg PO QHS 08/13/24 triamcinolone acetonide 0.1 % topical cream 1 applic topical Q8 PRN itching 08/13/24 budesonide 0.5 mg/2 mL suspension for nebulization 0.5 mg (2 mL) inhalation BID #60 mL 08/17/24 cefdinir 300 mg capsule 300 mg PO BID #14 caps 08/17/24 furosemide 40 mg tablet (Lasix) 40 mg PO DAILY #90 tabs 08/17/24 guaifenesin 600 mg tablet, extended release 12 hr (Mucinex) 1,200 mg (2 x 600 mg) PO BID #20 tabs 08/17/24 prednisone 20 mg tablet 20 mg PO BID #10 tabs 08/17/24 Physical Exam Narrative GENERAL: Cooperative HEENT: Atraumatic; normocephalic EYES; Anicteric, Normal Conjunctiva NECK; supple, normal thyroid, RESPIRATORY: Diminished to auscultation CARDIOVASCULAR: Regular S1 S2, tachycardic GI: soft, normoactive bowel sounds, : No Renal angle tenderness; EXTREMITIES: edema, no clubbing, MUSCULOSKELETAL: no muscle wasting NEURO: Awake; no lateralizing signs. SKIN: No Rash PSYCH; Flat affect Weight / BMI Weight Weight: 144.2 kg Body Mass Index (BMI) 58.1 ABG / Lab / Microbiology Data 08/17/24 03:09 08/17/24 03:09 Laboratory: Laboratory Results - last 24 hr 08/17/24 03:09: WBC 7.7, RBC 3.15 L, Hgb 10.2 L, Hct 31.2 L, MCV 99.0, MCH 32.4 H, MCHC 32.7, RDW Std Deviation 56.3 H, RDW Coeff of [place] 15.7 H, Plt Count 209, MPV 10.5, Immature Gran % (Auto) 0.600, Neut % (Auto) 79.9 H, Lymph % (Auto) 11.3 L, [place] % (Auto) 6.9, Eos % (Auto) 1.0, Baso % (Auto) 0.3, Absolute Neuts (auto) 6.2, Absolute Lymphs (auto) 0.87, Nucleated RBC % 0.3, Sodium 143, Potassium 3.6, Chloride 99, Carbon Dioxide 24.6, Anion Gap 19 H, BUN 35 H, Creatinine 0.85, Estim Creat Clear Calc 79.21, Est GFR (MDRD) Non-Af 72, BUN/Creatinine Ratio 41.4 H, Glucose 134 H, Calcium 9.0 Microbiology: Microbiology 08/14/24 08:45 Sputum, Expectorated/Coughed Gram Stain - Final 08/14/24 08:45 Sputum, Expectorated/Coughed Respiratory Culture - Final Streptococcus agalactiae (B) 08/13/24 15:50 Blood Culture (Wb) - Venous Blood Culture - Preliminary No growth in 48 hours. 08/13/24 15:50 Blood Culture (Wb) - Venous Blood Culture - Preliminary No growth in 48 hours. 08/13/24 16:10 Urine, Catheterized Urine Culture - Final Streptococcus agalactiae (B) 08/13/24 13:35 Mucosa - Nasopharyngeal Respiratory Panel (PCR) - Final 08/13/24 Unknown Mucosa - Nasopharyngeal SARS-CoV-2, Influenza & RSV (PCR) - Final 08/13/24 22:01 Nasal Secretion MRSA (PCR) - Final 08/13/24 22:01 Urine Catheter - Catheter Legionella Antigen - Final 08/13/24 22:01 Urine Catheter - Catheter Streptococcus pneumoniae Antigen (M - Final Radiography Diagnostic Testing: Radiology Impression Venous Doppler Study 08/14/24 00:10 Interpretation Summary Deep veins of the bilateral lower extremities are patent and compressible segmentally. There is no evidence of bilateral lower extremity deep vein thrombosis. The bilateral great saphenous veins appear patent and compressible segmentally. Limited study Ordering Physician: Ibeth Parker Referring Physician: Panda Mota Performed By: Chon, Corona, RVT D/C Instructions Discharge Diet: 8 Cup Fluid Restriction Discharge Activity: Return to Normal Activity Call your doctor if you observe: Fever of 101 or Higher, Shortness of breath, Fainting spells and Chest pain DC O2, CPAP, BIPAP Needs PSN CPAP & BiPAP: BiPAP & CPAP Settings per PSN Mode BiPAP 08/17/24 07:10 Bipap Delivery Device Face Mask 08/17/24 03:23 BiPAP Inspiratory Pressure 14 08/17/24 03:23 BiPAP Expiratory Pressure 9 08/17/24 03:23 BiPAP Rate 12 08/17/24 03:23 Fraction of Inspired Oxygen ( 30 08/17/24 03:23 FIO2) Home O2 Discharge instructions: Yes Type of respiratory needs?: Oxygen Oxygen frequency: Continuous Continuous oxygen liters per minute: 4 DC home with Oxygen: Yes Home O2 MD Review: I have reviewed the oxygen testing, and the patient qualifies for home oxygen equipment and portability. The patient is mobile in the home and the community. Meaningful Use Info Meaningful Use Meaningful Use Diagnoses (Choose all that apply): CHF CHF JEFFERSON/ARB ordered at discharge?: No Reason JEFFERSON/ARB not ordered?: Not indicated Documented LVEF (%): 60 Ischemic Stroke Statin Dosing Therapy Reference: STATIN DOSE THERAPY REFERENCE: * Patients > 75 years receive moderate or high dose statin therapy. * Patients 75 years or YOUNGER should receive HIGH intensity statin dose unless contraindicated. You will be required to document reason for non-treatment if statin daily dose does not meet guidelines. HIGH DOSE STATIN THERAPY DAILY Atorvastatin > than or = to 40 mg Rosuvastatin > than or = to 20 mg Amlodipine + Atorvastatin > than or = to 2.5/40 mg Ezetimibe + Simvastatin 10/80 mg Simvastatin 80mg Discharge Plan Admission Admit Date/Time: 08/13/24 19:28 Attending Provider: Lc Head Primary Care Provider: Panda Mota Consulting Providers: Rubina Saini; Ibeth Parker Discharge Orders/Prescriptions Prescriptions: New cefdinir 300 mg capsule 300 mg PO BID Qty: 14 0RF guaifenesin [Mucinex] 600 mg tablet extended release 12hr 1,200 mg PO BID Qty: 20 0RF furosemide [Lasix] 40 mg tablet 40 mg PO DAILY Qty: 90 0RF prednisone 20 mg tablet 20 mg PO BID Qty: 10 0RF budesonide 0.5 mg/2 mL suspension for nebulization 0.5 mg inhalation BID Qty: 60 0RF Continued albuterol sulfate 2.5 mg /3 mL (0.083 %) solution for nebulization 2.5 mg inhalation DAILY PRN (Reason: shortness of breath or wheezing) Artificial Tears(glycerin-peg) 1-0.3 % drops 2 drp ophthalmic (eye) Q4H PRN (Reason: dry eye(s)) atorvastatin 20 mg tablet 20 mg PO QHS clonazepam 0.5 mg tablet 0.5 mg PO BID fluticasone propionate 220 mcg/actuation HFA aerosol inhaler 2 inh inhalation BID losartan 50 mg tablet 50 mg PO DAILY polyethylene glycol 3350 [Miralax] 17 gram/dose powder 17 g PO DAILY PRN (Reason: CONSTIPATION ) latanoprost 0.005 % drops 1 drp ophthalmic (eye) QHS clopidogrel 75 MG tablet 75 mg PO DAILY metoprolol succinate 100 MG tablet 100 mg PO DAILY phenobarbital 60 mg tablet 120 mg PO 0800 Patient Comments: PT TAKES 2 60MG TABS (120MG) EVERY MORNING. TAKES 3 TABS (180MG) EVERY SUN, MON, WED, THURS, SAT AT BEDTIME. TAKES 1 TAB (60MG) EVERY TUES AND FRI AT BEDTIME. phenobarbital 60 mg tablet 180 mg PO SUMOWETHSA Patient Comments: PT TAKES 2 60MG TABS (120MG) EVERY MORNING. TAKES 3 TABS (180MG) EVERY SUN, MON, WED, THURS, SAT AT BEDTIME. TAKES 1 TAB (60MG) EVERY TUES AND FRI AT BEDTIME. Rx Instructions: GIVE AT BEDTIME paliperidone 6 MG tablet 6 mg PO QHS acetaminophen 500 mg tablet 500 mg PO Q6H PRN (Reason: pain) levothyroxine 200 mcg tablet 200 mcg PO QHS nifedipine 90 mg tablet extended release 90 mg PO DAILY phenobarbital 60 mg tablet 60 mg PO TUFR Patient Comments: PT TAKES 2 60MG TABS (120MG) EVERY MORNING. TAKES 3 TABS (180MG) EVERY SUN, MON, WED, THURS, SAT AT BEDTIME. TAKES 1 TAB (60MG) EVERY TUES AND FRI AT BEDTIME. cholecalciferol (vitamin D3) 25 mcg (1,000 unit) tablet 50 mcg PO DAILY escitalopram oxalate 10 mg Tablet 10 mg PO DAILY Qty: 0 0RF quetiapine 100 mg tablet 100 mg PO QHS triamcinolone acetonide 0.1 % cream 1 applic topical Q8 PRN (Reason: itching) ondansetron 4 mg tablet,disintegrating 4 mg PO Q4H PRN (Reason: nausea and vomiting) Rx Instructions: give 1st dose 30min before emetogenic chemo pantoprazole [Protonix] 40 mg tablet,delayed release (DR/EC) 40 mg PO BID albuterol sulfate 90 mcg/actuation HFA aerosol inhaler 2 puff inhalation Q4H PRN (Reason: shortness of breath or wheezing) montelukast 10 mg tablet 10 mg PO QHS Qty: 90 3RF Discontinued hydrochlorothiazide 25 MG tablet 25 mg PO DAILY Qty: 0 Referrals / Follow Up: Richa Daniels MD [Med Staff - Tile Layer Supervisor] - Panda Mota MD [Primary Care Provider] - Within 2 Weeks Disposition Disposition (needs filled in before D/C Order can be placed): [facility] Facility Charges/Coding Visit Charges Inpatient E&M: 20975 Disch Hosp >30min
--- NOTE | 2024-08-17 11:22 | PCM.TXEXTCAR ---
Diet Diet Order/Speech Therapy: 08/17/24 11:14 Diet: Cardiac - Heart Healthy Fluid restriction:: 1500 mL Diet Comments: Moisten dry textures, meds whole in , distant supervision Routine Orders/Code Status Code Status: DNRCC-A DC O2, CPAP, BIPAP needs Home O2 Discharge instructions: Yes Type of respiratory needs?: Oxygen Oxygen frequency: Continuous Continuous oxygen liters per minute: 4 Therapies Physical Therapy: Eval and Treat Occupational Therapy: Eval and Treat Speech Therapy: Eval and Treat Problem/Diagnosis (1) Congestive heart failure: Status: Acute Code(s): I50.9 - Heart failure, unspecified (2) Type 2 WI (myocardial infarction): Status: Acute Code(s): I21.A1 - Myocardial infarction type 2 Plan Patient is a 74-year-old lady resident at [facility] who was brought to the emergency department with shortness of breath. She was reported to have vomited and route with concern for aspiration chest x-ray obtained on admission demonstrated bilateral pulmonary venous congestion. An assessment of acute hypoxic respiratory failure was made patient started on BiPAP admitted to the intensive care unit for further management 1. Acute hypoxic respiratory failure ? Multifactorial including bilateral pulmonary venous congestion, aspiration pneumonia patient was placed on noninvasive ventilation started on broad-spectrum antibiotic therapy admitted to the intensive care unit with consult placed to sdv pilot/navigator/dds operator ? 08/16/2024; patient was placed on BiPAP at night. With patient going into intermittent respiratory distress the day prior ordered portable chest x-ray this a.m. for subsequent ? Patient was assessed for home oxygen prior to being sent back to her [facility] facility 2. Septic shock ? Secondary to a combination of acute cystitis as well as recent influenza A infection with suspected bacterial pneumonia. Patient was started on broad-spectrum antibiotic therapy after cultures have been initiated. Patient was not resuscitated with IV fluids per protocol given concern for fluid overload status ? 08/15/2024 patient blood pressure has stabilized. Urine cultures positive for Streptococcus agalactiae patient remains on appropriate antibiotic therapy 3. Acute cystitis ? With Streptococcus agalactiae management as discussed above 4. Acute congestive heart failure?unspecified ? Patient management noninvasive ventilation BiPAP Lasix was held off given concern for relatively low blood pressure. Serial cardiac enzymes and echo ordered and cardiology consulted by admitting physician ? 08/15/2024 patient seen in consultation by cardiology notes and recommendations reviewed. 2D echo obtained did show Mild concentric left ventricular hypertrophy. The left ventricular ejection fraction is 60 %. Stage 1 diastolic dysfunction. Moderately dilated RV with moderate systolic dysfunction. The left atrium is moderately enlarged. Mild (1+) mitral valve insufficiency. Mild to moderate (1-2+) tricuspid valve insufficiency. Right ventricular systolic pressure estimated to be 50 mmHg. ? 08/16/2024; patient is in negative fluid balance of 3 L over the past 24 5. Elevated troponin ? Suspected to be secondary to demand ischemia from above echo has been ordered subsequent serial cardiac enzymes ordered ? 08/17/2024 Case was discussed with Dr. Saini with cardiology recommended for patient to undergo nuclear stress test. Patient nuclear stress test was negative for stress-induced ischemia 6. Elevated D-dimer ? Patient was started on heparin CTA was not ordered given patient acute kidney injury most show patient has allergy to dye plan is for patient to undergo evaluation VQ scan as well as lower extremity duplex ? 08/15/2024 patient bilateral venous duplex as well as VQ scan came back unremarkable systemic anticoagulation with heparin discontinued 7. Acute kidney injury ? Creatinine from 06/04/2024 was 0.82 creatinine on admission was 1.48 creatinine did bump up to 1.55. Patient AC suspected secondary to ischemic ATN 8. Anemia ? Secondary to chronic disorder monitoring H&H and transfuse if patient becomes symptomatic or hemoglobin falls below 7 ? 08/16/2024 hemoglobin remains low at 9.6 9. Hypothyroidism ? Patient is on levothyroxine home dose continued 10. Essential hypertension ? Patient is on losartan as well as HCTZ held given relatively low blood pressure as well as impaired kidney function 11. GERD ? Patient is on PPI 12. Schizophrenia ? Plan is to continue patient antipsychotic medications 13. Seizure disorder -controlled on phenobarbital plan is to resume following med rec 14. COPD/asthma ? Bronchodilator treatment as needed 15. Dyslipidemia ?Patient is on statin therapy, continued at home dose 16 . DVT prophylaxis ? Patient is on heparin Time spent in the patient's overall evaluation,decision-making process, review of diagnostic data, adjustment of management, discussion with other providers, nursing nursing and ancillary staff involved in patient's care documentation, 36 minutes Allergies/Procedures Done in Hospital Allergies amoxicillin Allergy (Verified 03/11/24 08:36) NEEDS FOLLOW-UP codeine Allergy (Verified 03/11/24 08:36) Shortness of breath cyclobenzaprine (From Flexeril) Allergy (Verified 03/11/24 08:36) NEEDS FOLLOW-UP dextromethorphan HBr (From Tylenol Cold Multi-Symptom) Allergy (Verified 03/11/24 08:36) Shortness of breath diazepam (From Valium) Allergy (Verified 03/11/24 08:36) Shortness of breath fluticasone (From Advair Diskus) Allergy (Verified 03/11/24 08:36) NEEDS FOLLOW-UP Food Allergies: Uncoded Allergy (Verified 03/11/24 08:36) Shortness of breath banana peels, passion fruit guaifenesin (From Tylenol Cold Multi-Symptom) Allergy (Verified 03/11/24 08:36) Shortness of breath hydrocodone bitartrate (From Vicodin) Allergy (Verified 03/11/24 08:36) Shortness of breath iodine Allergy (Verified 03/11/24 08:36) Anaphylaxis Latex, Natural Rubber Allergy (Verified 03/11/24 08:36) Shortness of breath morphine Allergy (Verified 03/11/24 08:36) Shortness of breath NSAIDS (Non-Steroidal Anti-Inflamma Allergy (Verified 03/11/24 08:36) Shortness of breath oxaprozin (From Daypro) Allergy (Verified 03/11/24 08:36) NEEDS FOLLOW-UP oxycodone Allergy (Verified 03/11/24 08:36) NEEDS FOLLOW-UP phenylephrine HCl (From Tylenol Cold Multi-Symptom) Allergy (Verified 03/11/24 08:36) Shortness of breath phenytoin (From Dilantin) Allergy (Verified 03/11/24 08:36) NEEDS FOLLOW-UP phenytoin sodium (From Dilantin) Allergy (Verified 03/11/24 08:36) Shortness of breath phenytoin sodium extended (From Dilantin) Allergy (Verified 03/11/24 08:36) Shortness of breath povidone-iodine (From Betadine) Allergy (Verified 03/11/24 08:36) BLISTERS pseudoephedrine HCl (From Tylenol Cold Multi-Symptom) Allergy (Verified 03/11/24 08:36) Shortness of breath salmeterol (From Advair Diskus) Allergy (Verified 03/11/24 08:36) NEEDS FOLLOW-UP shellfish derived Allergy (Verified 03/11/24 08:36) NEEDS FOLLOW-UP soap (From Betadine) Allergy (Verified 03/11/24 08:36) BLISTERS tetracycline Allergy (Verified 03/11/24 08:36) NEEDS FOLLOW-UP tositumomab iodine-131 Allergy (Verified 03/11/24 08:36) NEEDS FOLLOW-UP muscle relaxers Allergy (Uncoded 05/22/23 11:04) Shortness of breath Type of Care/Length of Stay Estimated LOS: More Than 30 Days Type of Care Needed: Intermediate Rehab Potential: Fair Prognosis: Fair Additional Orders/Day of Discharge Day of Discharge: 08/17/24 Dietary and Speech Recommendations Dietitian Recommendations/Changes: Continue cardiac; 1500ml fluid restrictions. Will add consistent carbohydrate if glucose levels become elevated. Will monitor weight trends. Discharge Plan Admission Admit Date/Time: 08/13/24 19:28 Attending Provider: Lc Head Primary Care Provider: Panda Mota Consulting Providers: Rubina Saini; Ibeth Parker Discharge Orders/Prescriptions Prescriptions: New cefdinir 300 mg capsule 300 mg PO BID Qty: 14 0RF guaifenesin [Mucinex] 600 mg tablet extended release 12hr 1,200 mg PO BID Qty: 20 0RF furosemide [Lasix] 40 mg tablet 40 mg PO DAILY Qty: 90 0RF prednisone 20 mg tablet 20 mg PO BID Qty: 10 0RF budesonide 0.5 mg/2 mL suspension for nebulization 0.5 mg inhalation BID Qty: 60 0RF Continued albuterol sulfate 2.5 mg /3 mL (0.083 %) solution for nebulization 2.5 mg inhalation DAILY PRN (Reason: shortness of breath or wheezing) Artificial Tears(glycerin-peg) 1-0.3 % drops 2 drp ophthalmic (eye) Q4H PRN (Reason: dry eye(s)) atorvastatin 20 mg tablet 20 mg PO QHS clonazepam 0.5 mg tablet 0.5 mg PO BID fluticasone propionate 220 mcg/actuation HFA aerosol inhaler 2 inh inhalation BID losartan 50 mg tablet 50 mg PO DAILY polyethylene glycol 3350 [Miralax] 17 gram/dose powder 17 g PO DAILY PRN (Reason: CONSTIPATION ) latanoprost 0.005 % drops 1 drp ophthalmic (eye) QHS clopidogrel 75 MG tablet 75 mg PO DAILY metoprolol succinate 100 MG tablet 100 mg PO DAILY phenobarbital 60 mg tablet 120 mg PO 0800 Patient Comments: PT TAKES 2 60MG TABS (120MG) EVERY MORNING. TAKES 3 TABS (180MG) EVERY SUN, SAT, SAT, TH, SAT AT BEDTIME. TAKES 1 TAB (60MG) EVERY TUES AND FRI AT BEDTIME. phenobarbital 60 mg tablet 180 mg PO SUM[place]ETHSA Patient Comments: PT TAKES 2 60MG TABS (120MG) EVERY MORNING. TAKES 3 TABS (180MG) EVERY SUN, SAT, SAT, , SAT AT BEDTIME. TAKES 1 TAB (60MG) EVERY TUES AND FRI AT BEDTIME. Rx Instructions: GIVE AT BEDTIME paliperidone 6 MG tablet 6 mg PO QHS acetaminophen 500 mg tablet 500 mg PO Q6H PRN (Reason: pain) levothyroxine 200 mcg tablet 200 mcg PO QHS nifedipine 90 mg tablet extended release 90 mg PO DAILY phenobarbital 60 mg tablet 60 mg PO TU Patient Comments: PT TAKES 2 60MG TABS (120MG) EVERY MORNING. TAKES 3 TABS (180MG) EVERY SUN, SAT, SAT, , SAT AT BEDTIME. TAKES 1 TAB (60MG) EVERY TUES AND FRI AT BEDTIME. cholecalciferol (vitamin D3) 25 mcg (1,000 unit) tablet 50 mcg PO DAILY escitalopram oxalate 10 mg Tablet 10 mg PO DAILY Qty: 0 0RF quetiapine 100 mg tablet 100 mg PO QHS triamcinolone acetonide 0.1 % cream 1 applic topical Q8 PRN (Reason: itching) ondansetron 4 mg tablet,disintegrating 4 mg PO Q4H PRN (Reason: nausea and vomiting) Rx Instructions: give 1st dose 30min before emetogenic chemo pantoprazole [Protonix] 40 mg tablet,delayed release (DR/EC) 40 mg PO BID albuterol sulfate 90 mcg/actuation HFA aerosol inhaler 2 puff inhalation Q4H PRN (Reason: shortness of breath or wheezing) montelukast 10 mg tablet 10 mg PO QHS Qty: 90 3RF Discontinued hydrochlorothiazide 25 MG tablet 25 mg PO DAILY Qty: 0 Referrals / Follow Up: Richa Daniels MD [Med Staff - Anthropology And Archeology Instructor] - Panda Mota MD [Primary Care Provider] - Within 2 Weeks Disposition Disposition (needs filled in before D/C Order can be placed): Residential Facility
--- NOTE | 2024-08-17 11:27 | CASEMGMT ---
Social Work Physician updated and pt is ready for discharge today.? DCA notified of discharge. Final discharge arrangements and notification to patient/family as per discharge manager of planning.? Disposition:[facility]; return, intermediate level YANICK Joe
--- NOTE | 2024-08-17 11:50 | CASEMGMT ---
Discharge Planning Discharge orders, signed med list, and transport time sent to [facility] via [facility]. Verbal notification completed as well. Physicians will transport pt by wheelchair at 12:45p. Nursing, SW, pt, and her sister/poa (Colleen) updated. Christina Pastrana DC Planning Asst.
== END 2024-08-17 13:10 | disposition intermediate care facility (04) | DRG 871 ==
LOC: ED 19:44 → ICU 20:06 → MS2 08-15 05:01
PROVIDERS: Internal Medicine Critical Care Medicine; Admitting Provider Family Medicine; Emergency Provider Emergency Medicine; PCP Family Medicine; Visit Provider Internal Medicine
DX: A41.9 Sepsis, unspecified organism (principal); J96.01 Acute respiratory failure with hypoxia; R65.21 Severe sepsis with septic shock; I50.31 Acute diastolic (congestive) heart failure; J69.0 Pneumonitis due to inhalation of food and vomit; J15.9 Unspecified bacterial pneumonia; I24.89 Other forms of acute ischemic heart disease; I13.0 Hypertensive heart and chronic kidney disease with heart failure and stage 1 through stage 4 chronic kidney disease, or unspecified chronic kidney disease; Z68.43 Body mass index [BMI] 50.0-59.9, adult; N17.9 Acute kidney failure, unspecified; N30.00 Acute cystitis without hematuria; J44.9 Chronic obstructive pulmonary disease, unspecified; F20.9 Schizophrenia, unspecified; G40.909 Epilepsy, unspecified, not intractable, without status epilepticus; E11.22 Type 2 diabetes mellitus with diabetic chronic kidney disease; M06.9 Rheumatoid arthritis, unspecified; D63.8 Anemia in other chronic diseases classified elsewhere; E03.9 Hypothyroidism, unspecified; F32.A Depression, unspecified; E66.01 Morbid (severe) obesity due to excess calories; K21.9 Gastro-esophageal reflux disease without esophagitis; G47.33 Obstructive sleep apnea (adult) (pediatric); E78.5 Hyperlipidemia, unspecified; F41.9 Anxiety disorder, unspecified; Z66 Do not resuscitate; B97.89 Other viral agents as the cause of diseases classified elsewhere; Z86.73 Personal history of transient ischemic attack (TIA), and cerebral infarction without residual deficits; Z79.51 Long term (current) use of inhaled steroids; Z79.899 Other long term (current) drug therapy; Z79.02 Long term (current) use of antithrombotics/antiplatelets
CPT/HCPCS: 36415; 36600; 51702; 71045; 71046; 74230; 78452; 78582; 80048; 80053; 80061; 80202; 81001; 82803; 83605; 83735; 83880; 84100; 84145; 84443; 84484; 85025; 85027; 85379; 85610; 85730; 87040; 87070; 87077; 87086; 87088; 87186; 87205; 87449; 87631; 87633; 87641; 92526; 92610; 92611; 93005; 93017; 93306; 93970; 94002; 94003; 94640; 94668; 94762; 97162; 97166; 97530; 97535; 97802; 99285; A9500; A9540; A9567; Q9957; A4216; C8929; J1940; J2405; J2785

== ENCOUNTER → 2024-10-21 05:00 | Outpatient (REF) | payer MEDICARE, MEDICAID, SELFPAY ==
[2024-10-21 09:27] LABS: Hematocrit 32.8 % (37-47); Hemoglobin 10.7 g/dL (12.0-15.0); Mean Corp Hgb Conc 32.6 g/dL (32-36); Mean Corpuscular Hgb 32.5 pg (27.0-32.0); Mean Corpuscular Volume 99.7 fL (81-99); Mean Platelet Vol. 9.7 fl (6.2-12.0); POSITIVE MORPHOLOGY YES; Platelet Count 248 K/mm3 (150-450); RBC Distribution Width CV 17.9 % (11.6-14.6); RBC Distribution Width SD 65.7 fl (35.1-43.9); Red Blood Count 3.29 M/mm3 (4.2-5.4); White Blood Count 5.9 K/mm3 (4.4-11.0)
[2024-10-21 09:34] LABS: Scan Indicated on CBC? Y/N YES- FLAGS NOTED
[2024-10-21 09:53] LABS: Digoxin Level 0.46 ng/mL (0.00-2.00)
[2024-10-21 10:04] LABS: AST(SGOT) 22 U/L (<=31); Alanine Aminotransfer ALT/SGPT 10 U/L (<=34); Albumin, Serum 3.9 g/dL (3.4-4.8); Alkaline Phosphatase 134 U/L (35-104); Anion Gap 14 (5-15); BUN 28 mg/dL (4-19); BUN/Creat Ratio 28.1 RATIO (10-20); Bilirubin, Direct < 0.08 mg/dL (0.00-0.30); Calcium,Total 9.2 mg/dL (7.6-11.0); Carbon Dioxide 26.8 mmol/L (21.0-32.0); Chloride 97 mmol/L (98-108); Cholesterol 228 mg/dL (<=200); EST Glomerular Filtration Rate 59 (>60); Globulin 3.7 g/dL (2.2-4.2); Glucose 113 mg/dL (70-99); High Density Lipoprotein 83 mg/dL; Low Density Lipoprotein Calc. 114 mg/dL; Potassium 3.8 mmol/L (3.3-5.1); Protein, Total 7.5 g/dL (5.9-8.4); Sodium Level 138 mmol/L (133-145); Total Bilirubin < 0.15 mg/dL (0.00-1.30); Triglycerides 155 mg/dL; Very Low Density Lipoprotein 31 mg/dL (5-40); Vitamin D,25 Hydroxy 52.2 ng/mL (30-100); cholesterol:hdl ratio screen 2.76
== END ==
LOC: OLS.WCC 05:00
PROVIDERS: PCP Family Medicine; Visit Provider Family Medicine
DX: I11.0 Hypertensive heart disease with heart failure (principal); I50.9 Heart failure, unspecified; Z79.899 Other long term (current) drug therapy
CPT/HCPCS: 36415; 80048; 80061; 80076; 80162; 82306; 84443; 85027

== ENCOUNTER → 2024-12-08 | Outpatient (REF) | payer MEDICARE, MEDICAID, SELFPAY ==
[2024-12-08 11:16] LABS: Anion Gap 12 (5-15); BUN 43 mg/dL (4-19); BUN/Creat Ratio 33.3 RATIO (10-20); Calcium,Total 9.2 mg/dL (7.6-11.0); Carbon Dioxide 28.6 mmol/L (21.0-32.0); Chloride 100 mmol/L (98-108); Cholesterol 210 mg/dL (<=200); Glucose 81 mg/dL (70-99); Low Density Lipoprotein Calc. 99 mg/dL; Potassium 3.8 mmol/L (3.3-5.1); Triglycerides 77 mg/dL; Very Low Density Lipoprotein 15 mg/dL (5-40); cholesterol:hdl ratio screen 2.19
[2024-12-08 11:20] LABS: Hematocrit 30.4 % (37-47); Hemoglobin 9.9 g/dL (12.0-15.0); Mean Corp Hgb Conc 32.6 g/dL (32-36); Mean Corpuscular Volume 101.0 fL (81-99); Mean Platelet Vol. 10.7 fl (6.2-12.0); Platelet Count 206 K/mm3 (150-450); RBC Distribution Width CV 16.9 % (11.6-14.6); RBC Distribution Width SD 62.8 fl (35.1-43.9); Red Blood Count 3.01 M/mm3 (4.2-5.4); White Blood Count 4.2 K/mm3 (4.4-11.0)
== END ==
LOC: OLS.WCC 05:00
PROVIDERS: PCP Family Medicine; Visit Provider Family Medicine
DX: I10 Essential (primary) hypertension (principal); E78.5 Hyperlipidemia, unspecified; Z79.899 Other long term (current) drug therapy
CPT/HCPCS: 36415; 80048; 80061; 80184; 84443; 85027

== ENCOUNTER → 2024-12-28 | Outpatient (REF) | payer MEDICARE, MEDICAID, SELFPAY ==
[2024-12-28 08:53] LABS: Hematocrit 30.0 % (37-47); Hemoglobin 9.9 g/dL (12.0-15.0); Mean Corp Hgb Conc 33.0 g/dL (32-36); Mean Corpuscular Volume 100.7 fL (81-99); Mean Platelet Vol. 11.0 fl (6.2-12.0); Platelet Count 141 K/mm3 (150-450); RBC Distribution Width CV 16.1 % (11.6-14.6); RBC Distribution Width SD 60.0 fl (35.1-43.9); Red Blood Count 2.98 M/mm3 (4.2-5.4); White Blood Count 4.6 K/mm3 (4.4-11.0)
[2024-12-28 09:25] LABS: Anion Gap 11 (5-15); BUN 35 mg/dL (4-19); BUN/Creat Ratio 30.1 RATIO (10-20); Calcium,Total 9.6 mg/dL (7.6-11.0); Carbon Dioxide 28.2 mmol/L (21.0-32.0); Chloride 100 mmol/L (98-108); Cholesterol 212 mg/dL (<=200); Glucose 81 mg/dL (70-99); Low Density Lipoprotein Calc. 97 mg/dL; Potassium 4.3 mmol/L (3.3-5.1); Triglycerides 70 mg/dL; Very Low Density Lipoprotein 14 mg/dL (5-40); cholesterol:hdl ratio screen 2.10
== END ==
LOC: OLS.WCC 04:00
PROVIDERS: PCP Family Medicine; Referring Provider Family Medicine; Visit Provider Family Medicine
DX: G40.909 Epilepsy, unspecified, not intractable, without status epilepticus (principal); D63.8 Anemia in other chronic diseases classified elsewhere; J44.9 Chronic obstructive pulmonary disease, unspecified; R53.83 Other fatigue; I10 Essential (primary) hypertension; Z79.899 Other long term (current) drug therapy
CPT/HCPCS: 36415; 80048; 80061; 80184; 84443; 85027

== ENCOUNTER → 2025-01-05 | Outpatient (REF) | payer MEDICARE, MEDICAID, SELFPAY ==
[2025-01-05 08:30] LABS: Hematocrit 30.9 % (37-47); Hemoglobin 10.2 g/dL (12.0-15.0); Mean Corp Hgb Conc 33.0 g/dL (32-36); Mean Corpuscular Volume 98.7 fL (81-99); Mean Platelet Vol. 10.9 fl (6.2-12.0); Platelet Count 164 K/mm3 (150-450); RBC Distribution Width CV 15.8 % (11.6-14.6); RBC Distribution Width SD 57.1 fl (35.1-43.9); Red Blood Count 3.13 M/mm3 (4.2-5.4); White Blood Count 6.9 K/mm3 (4.4-11.0)
[2025-01-05 08:45] LABS: Anion Gap 12 (5-15); BUN 37 mg/dL (4-19); BUN/Creat Ratio 27.4 RATIO (10-20); Calcium,Total 9.8 mg/dL (7.6-11.0); Carbon Dioxide 28.6 mmol/L (21.0-32.0); Chloride 98 mmol/L (98-108); Cholesterol 217 mg/dL (<=200); Glucose 95 mg/dL (70-99); Low Density Lipoprotein Calc. 101 mg/dL; Potassium 3.9 mmol/L (3.3-5.1); Triglycerides 54 mg/dL; Very Low Density Lipoprotein 11 mg/dL (5-40); cholesterol:hdl ratio screen 2.07
== END ==
LOC: OLS.WCC 04:00
PROVIDERS: PCP Family Medicine; Referring Provider Family Medicine; Visit Provider Family Medicine
DX: J44.9 Chronic obstructive pulmonary disease, unspecified (principal); I11.0 Hypertensive heart disease with heart failure; J96.01 Acute respiratory failure with hypoxia; I50.21 Acute systolic (congestive) heart failure
CPT/HCPCS: 36415; 80048; 80061; 80184; 84443; 85027

== ENCOUNTER → 2025-01-11 13:00 | Outpatient (REF) | payer MEDICARE, MEDICAID, SELFPAY ==
[2025-01-11 12:26] LABS: Color, Urine Yellow (Yellow); Glucose, Dipstick Normal (Normal); Ketone-Dipstick Negative (Negative); Leukocyte Esterase-Dipstick 500 /ul (Negative); Nitrite-Dipstick Positive (Negative); Occult Blood-Urine 25 /ul (Negative); Protein-Dipstick 15 mg/dl (Negative); Specific Gravity, Urine 1.010 (1.002-1.030); Urine Bilirubin Dipstick Negative (Negative)
[2025-01-11 12:33] LABS: Mucous, Urine 0 SEEN /hpf (<or=2+); Red Blood Cells-Urine 0 SEEN /hpf (0-5)
[2025-01-11 12:34] LABS: Squamous Epithelial Cells - UA 0-5 SEEN /hpf (5-10)
== END ==
LOC: OLS.WCC 13:00
PROVIDERS: PCP Family Medicine; Visit Provider Family Medicine
DX: N39.0 Urinary tract infection, site not specified (principal); R53.81 Other malaise; I10 Essential (primary) hypertension; Z79.899 Other long term (current) drug therapy
CPT/HCPCS: 81001; 87077; 87086; 87088; 87186

== ENCOUNTER → 2025-01-21 | Outpatient (REF) | payer MEDICARE, MEDICAID, SELFPAY ==
[2025-01-21 08:35] LABS: Mucous, Urine 0 SEEN /hpf (<or=2+); Red Blood Cells-Urine 0 SEEN /hpf (0-5); Squamous Epithelial Cells - UA 0 SEEN /hpf (5-10)
[2025-01-21 09:18] LABS: Color, Urine Yellow (Yellow); Glucose, Dipstick Normal (Normal); Ketone-Dipstick Negative (Negative); Leukocyte Esterase-Dipstick Negative /ul (Negative); Nitrite-Dipstick Negative (Negative); Occult Blood-Urine Negative /ul (Negative); Protein-Dipstick Negative (Negative); Specific Gravity, Urine 1.005 (1.002-1.030); Urine Bilirubin Dipstick Negative (Negative)
== END ==
LOC: OLS.WCC 06:20
PROVIDERS: PCP Family Medicine; Visit Provider Family Medicine
DX: N39.0 Urinary tract infection, site not specified (principal); Z79.899 Other long term (current) drug therapy
CPT/HCPCS: 81001; 87086; 87088

== ENCOUNTER → 2025-01-27 | Outpatient (REF) | payer MEDICARE, MEDICAID, SELFPAY ==
[2025-01-28 10:18] LABS: Color, Urine Yellow (Yellow); Glucose, Dipstick Normal (Normal); Ketone-Dipstick Negative (Negative); Leukocyte Esterase-Dipstick Negative /ul (Negative); Nitrite-Dipstick Negative (Negative); Occult Blood-Urine Negative /ul (Negative); Protein-Dipstick Negative (Negative); Specific Gravity, Urine 1.005 (1.002-1.030); Urine Bilirubin Dipstick Negative (Negative)
== END ==
LOC: OLS.WCC 15:00
PROVIDERS: PCP Family Medicine; Visit Provider Family Medicine
DX: N39.0 Urinary tract infection, site not specified (principal)
CPT/HCPCS: 81002; 87086; 87088

== ENCOUNTER 2025-02-28 10:13 | Inpatient (IN) | payer MEDICARE, MEDICAID, SELFPAY ==
[2025-02-28] VITALS (20 sets, daily range): BP systolic 97–150; BP diastolic 55–78; PULSE 71–92; RESP 12–28; TEMP 34.4–36.4; O2SAT 86–100; BMI 58.4; BMI 56.7
--- NOTE | 2025-02-28 10:36 | CT_ITS ---
PROCEDURE: BRAIN/HEAD WITHOUT CONTRAST 02/28/2025 REASON FOR EXAM: AMS TECHNIQUE: Procedure Code: CTBR Modality: CT Procedure: BRAIN/HEAD WITHOUT CONTRAST Coronal and Sagittal reconstruction series were provided. One or more dose reduction techniques were used (e.g., Automated exposure control, adjustment of the mA and/or kV according to patient size, use of iterative reconstruction technique. RADIATION DOSE SUMMARY: CTDlvol: 27.63 mGy DLP: 3271.37 mGycm COMPARISON: CT head 03/11/2024. FINDINGS: Brain: Extensive low density in the deep cerebral white matter most likely represents advanced chronic small vessel ischemic disease. No acute territorial infarction. No acute intracranial hemorrhage. No mass-effect or midline shift. No ventriculomegaly. The orbits are unremarkable without acute findings. Atherosclerotic calcifications of the carotid siphons. CSF Spaces: Normal Sinuses/Mastoids: Clear. Bones: No acute bony abnormalities. CT/Brain/Head without Contrast IMPRESSION: No acute intracranial abnormalities. Reading Location: [id number]
--- NOTE | 2025-02-28 10:36 | CT_ITS ---
PROCEDURE: CT CHEST, ABD, PELVIS WO CONT 02/28/2025 REASON FOR EXAM: NEW O2 REQUIREMENT, AMS TECHNIQUE: Chest, abdomen and pelvis CT without intravenous contrast. Coronal and Sagittal reconstruction series were provided. One or more dose reduction techniques were used (e.g., Automated exposure control, adjustment of the mA and/or kV according to patient size, use of iterative reconstruction technique. RADIATION DOSE SUMMARY: CTDlvol: 27.63 mGy DLP: 3271.37 mGycm COMPARISON: Chest x-ray 08/13/2024. FINDINGS: CT CHEST: Hardware: Monitor electrodes overlie the chest. Lymph nodes: No lymphadenopathy. Heart and Vasculature: Moderate cardiomegaly. Dilation of the pulmonary trunk indicating chronic pulmonary hypertension. Coronary Artery Calcifications: Atherosclerotic calcifications of the coronary arteries. Lungs and Airways: Diffuse ground-glass densities may represent CHF or pneumonia. Pleura: No pleural effusion. No pneumothorax. Bones: No acute bony abnormalities. Multilevel degenerate changes of the spine. CT ABDOMEN / PELVIS: Noncontrast technique limits evaluation of the abdominal and pelvic viscera. Liver: Unremarkable. Gallbladder: Status post cholecystectomy. Spleen: Unremarkable. Pancreas: Unremarkable. Adrenals: Unremarkable. Kidneys: No hydronephrosis. No nephrolithiasis. Perinephric fat stranding. Bladder: Decompressed by Diaz catheter. Reproductive Organs: Unremarkable. Bowel: Large amount of fecal load in the colon. No bowel wall thickening. No bowel obstruction. Appendix: Normal. Lymph nodes: No lymphadenopathy. Vasculature: No aneurysm. Atherosclerotic calcifications. Peritoneum / Retroperitoneum: No free air or free fluid. Bones: No acute bony abnormalities. Limitation: Limited study due to lack of IV contrast. CT/CT Chest, Abd, Pelvis WO Cont IMPRESSION: Diffuse ground-glass densities may represent CHF or pneumonia. Perinephric fat stranding. No hydronephrosis or nephrolithiasis. Correlation with urinalysis is recommended. Reading Location: [facility]
--- NOTE | 2025-02-28 10:38 | EKG12_ITS ---
Test Reason : CONFUSION Blood Pressure : */* mmHG Vent. Rate : 72 BPM Atrial Rate : 72 BPM P-R Int : 324 ms QRS Dur : 92 ms QT Int : 402 ms P-R-T Axes : 44 -7 12 degrees QTcB Int : 440 ms Sinus rhythm with 1st degree A-V block Inferior infarct , age undetermined Abnormal ECG Confirmed by ANNE MARIE JUAN, JONATHAN ([id number]), managing editor LAURA LAND ([id number]) on 03/01/2025 7:54:09 AM Referred By: Confirmed By: JONATHAN KENNEY MD
--- NOTE | 2025-02-28 10:40 | EX.ED.DYSGE1 ---
HPI History of Present Illness Chief Complaint: Alt LOC Narrative Narrative: Patient is a 74-year-old female presenting to the emergency department for altered mental status. Patient has a past medical history of obesity, CHF, encephalopathy, COPD, seizure disorder on phenobarbital, thyroid disorder, CVA, type 2 diabetes, schizophrenia, anxiety, hyperlipidemia and hypertension. History is unable to be obtained from patient due to altered mental status. History obtained from EMS and nurse at facility. Reportedly the patient has been altered since Saturday. Last known well was Saturday around 2 PM. At baseline she is alert and oriented x 3 and ambulates with a walker. Has not eaten anything, drink anything or ambulated since Saturday afternoon. [facility] Medical History History of ESBL E. coli infection Epilepsy Hammer toes of both feet Cerebrovascular disease Age related cataract Wears glasses Wears hearing aid Rash Walker as ambulation aid Easy bruising History of diverticulitis Gastric reflux Non-smoker Shortness of breath on exertion Vericose veins History of CVA (cerebrovascular accident) Seizure disorder Thyroid disorder Rheumatoid arthritis Diverticulitis Sleep apnea COPD (chronic obstructive pulmonary disease) Diabetes mellitus type 2 in obese Benign essential hypertension Convulsion Osteoarthritis Hypothyroid TIA (transient ischemic attack) Hypercholesterolemia Anemia in chronic illness Allergic rhinitis Glaucoma Morbid obesity Peripheral venous insufficiency GERD (gastroesophageal reflux disease) Asthma Schizophrenia Depression Anxiety disorder Hyperlipidemia Hypertension Home Medications ?Medication ?Instructions ?Recorded ?Last Taken ?Type clopidogrel 75 mg tablet 75 mg PO DAILY 03/28/13 03/10/24 History metoprolol succinate 100 mg 100 mg PO QHS 03/28/13 12/19/20 History tablet,extended release 24 hr paliperidone 6 mg tablet,extended 6 mg PO QHS 01/31/17 03/10/24 History release 24 hr atorvastatin 20 mg tablet 20 mg PO QHS 11/27/23 03/11/24 History clonazepam 0.5 mg tablet 0.5 mg PO BID 11/27/23 03/10/24 History fluticasone propionate 220 2 inh inhalation BID 11/27/23 03/10/24 History mcg/actuation HFA aerosol inhaler latanoprost 0.005 % eye drops 1 drp ophthalmic (eye) QHS 11/27/23 03/10/24 History losartan 50 mg tablet 50 mg PO DAILY 11/27/23 03/10/24 History phenobarbital 60 mg tablet 60 mg PO Q12H seizures 11/27/23 Unknown History polyethylene glycol 3350 17 17 g PO DAILY PRN CONSTIPATION 11/27/23 03/10/24 History gram/dose oral powder (Miralax) propylene glycol 1 %-glycerin 0.3 2 drp ophthalmic (eye) Q4H PRN dry 11/27/23 Unknown History % eye drops (Artificial Tears eye(s) (glycerin-peg)) acetaminophen 500 mg tablet 1,000 mg PO BID pain 03/11/24 03/10/24 History cholecalciferol (vitamin D3) 25 50 mcg PO DAILY 03/11/24 Unknown History mcg (1,000 unit) tablet levothyroxine 200 mcg tablet 200 mcg PO QHS 03/11/24 03/10/24 History escitalopram oxalate 10 mg tablet 10 mg PO DAILY #0 tabs 03/16/24 Unknown Rx albuterol sulfate 90 mcg/actuation 2 puff inhalation Q4H PRN 08/13/24 Unknown History aerosol inhaler shortness of breath or wheezing pantoprazole 40 mg tablet,delayed 40 mg PO BID 08/13/24 Unknown History release (Protonix) quetiapine 100 mg tablet 50 mg PO QHS 08/13/24 Unknown History triamcinolone acetonide 0.1 % 1 applic topical Q8 PRN itching 08/13/24 Unknown History topical cream furosemide 40 mg tablet (Lasix) 40 mg PO DAILY #90 tabs 08/17/24 Unknown Rx amlodipine 10 mg tablet 10 mg PO QDAY 12/16/24 Unknown History docusate sodium 100 mg capsule 100 mg PO QDAY 12/16/24 Unknown History hydrochlorothiazide 25 mg tablet 25 mg PO QDAY 12/16/24 Unknown History bisacodyl 10 mg rectal suppository 10 mg [place] DAILY PRN constipation 02/28/25 Unknown History clotrimazole 1 % topical cream 1 applic topical BID 02/28/25 Unknown History Allergy/AdvReac Type Severity Reaction Status Date / Time amoxicillin Allergy NEEDS Verified 02/28/25 10:33 FOLLOW-UP codeine Allergy Shortness Verified 02/28/25 10:33 of breath cyclobenzaprine (From Allergy NEEDS Verified 02/28/25 10:33 Flexeril) FOLLOW-UP dextromethorphan HBr (From Allergy Shortness Verified 02/28/25 10:33 Tylenol Cold Multi-Symptom) of breath diazepam (From Valium) Allergy Shortness Verified 02/28/25 10:33 of breath fluticasone (From Advair Allergy NEEDS Verified 02/28/25 10:33 Diskus) FOLLOW-UP Food Allergies: Uncoded Allergy Shortness Verified 02/28/25 10:33 of breath guaifenesin (From Tylenol Allergy Shortness Verified 02/28/25 10:33 Cold Multi-Symptom) of breath hydrocodone bitartrate (From Allergy Shortness Verified 02/28/25 10:33 Vicodin) of breath iodine Allergy Anaphylaxis Verified 02/28/25 10:33 Latex, Natural Rubber Allergy Shortness Verified 02/28/25 10:33 of breath morphine Allergy Shortness Verified 02/28/25 10:33 of breath NSAIDS (Non-Steroidal Allergy Shortness Verified 02/28/25 10:33 Anti-Inflamma of breath oxaprozin (From Daypro) Allergy NEEDS Verified 02/28/25 10:33 FOLLOW-UP oxycodone Allergy NEEDS Verified 02/28/25 10:33 FOLLOW-UP phenylephrine HCl (From Allergy Shortness Verified 02/28/25 10:33 Tylenol Cold Multi-Symptom) of breath phenytoin (From Dilantin) Allergy NEEDS Verified 02/28/25 10:33 FOLLOW-UP phenytoin sodium (From Allergy Shortness Verified 02/28/25 10:33 Dilantin) of breath phenytoin sodium extended Allergy Shortness Verified 02/28/25 10:33 (From Dilantin) of breath povidone-iodine (From Allergy BLISTERS Verified 02/28/25 10:33 Betadine) pseudoephedrine HCl (From Allergy Shortness Verified 02/28/25 10:33 Tylenol Cold Multi-Symptom) of breath salmeterol (From Advair Allergy NEEDS Verified 02/28/25 10:33 Diskus) FOLLOW-UP shellfish derived Allergy NEEDS Verified 02/28/25 10:33 FOLLOW-UP soap (From Betadine) Allergy BLISTERS Verified 02/28/25 10:33 tetracycline Allergy NEEDS Verified 02/28/25 10:33 FOLLOW-UP tositumomab iodine-131 Allergy NEEDS Verified 02/28/25 10:33 FOLLOW-UP muscle relaxers Allergy Shortness Uncoded 12/16/24 13:26 of breath Family History Mother CVA (cerebral vascular accident) Cancer Depression Diabetes Emphysema lung Hypertension Arthritis Father CVA (cerebral vascular accident) Cancer Depression Diabetes Emphysema lung Hypertension Arthritis Surgical History History of cholecystectomy History of tonsillectomy History of total hysterectomy History of total knee replacement History of bilateral tympanoplasty History of tubal ligation History of D&C Social History household members: none housing: long term Smoking Status: Never smoker second hand exposure: Yes alcohol intake: never substance use type: does not use what type of physical activity do you participate in: walking do you feel safe at home: Yes ROS ROS ED ROS Narrative see HPI EXAM Physical Exam Narrative Exam Narrative: Vital signs: Reviewed General: Chronically ill appearing. No acute distress. HEENT: Head is normocephalic and atraumatic, sinuses nontender, pupils equal round and reactive. 2mm bilaterally. EOMI. Tracks around room. Nares are patent. Oropharynx and throat exams normal. Neck: Supple without lymphadenopathy nontender Cardiovascular: Regular rate and rhythm, no murmurs. No rubs or gallops. Normal S1 and S2 Respiratory: Decreased breath sounds due to body habitus. No wheezes, rales, rhonchi heard. Abdominal: Soft and nontender. Normal bowel sounds. No guarding or rebound. Nonsurgical abdomen Extremities: No tenderness. No bruising. Skin: No rash or redness. The rest of the physical exam is unremarkable Const Vital Signs: 02/28/25 10:14 02/28/25 10:52 02/28/25 10:53 Temperature 96.4 F L 94 F L Temperature Source Temporal Core Pulse Rate 75 71 Respiratory Rate 16 28 H Blood Pressure 135/78 H 150/76 H Blood Pressure Mean 97 100 Pulse Ox 93 93 94 Oxygen Delivery Method Room Air Room Air Room Air 02/28/25 11:20 02/28/25 12:00 02/28/25 13:03 Temperature 94.3 F L 95.0 F L 95.8 F L Temperature Source Core Core Core Pulse Rate 74 71 86 Respiratory Rate 16 16 13 Blood Pressure 142/72 H 116/72 111/60 Blood Pressure Mean 95 86 77 Pulse Ox 97 96 92 Oxygen Delivery Method Room Air Room Air NIHSS NIHSS Initial: 1a Level of Consciousness: 0 1b LOC Questions (Score 2 if aphasic/stupor): 2 1c LOC Commands (Only score 1st attempt): 2 2 Best Gaze (If aphasic, use reflexive mvmts.): 0 3 Visual: 0 4 Facial Palsy: 0 5 Motor Arm Right (UN = amputation/fusion): 4 5 Motor Arm Left: 4 6 Motor Leg Right: 4 6 Motor Leg Left: 4 7 Limb ataxia (Only + if out of proportion): UN 8 Sensory (Aphasia/stupor=0 or 1, coma=2): 2 9 Best Language: 3 10 Dysarthria (mute, coma=2, intubated=UN): UN 11 Extinction and Inattention (only scored if +): 0 Total Score: 25 MDM MDM MDM Narrative Medical decision making narrative: Patient is a 74 year old female presenting to the ED for AMS for 2 days. Patient was seen and examined. Vitals are stable. She is mildly hypothermic at 94 degrees Fahrenheit rectally. Pulse of 75, BP of 135/78. RR 16 saturating 93% on 2 L NC, which is new oxygen requirement that was noted on Saturday when this started. GCS of 6, however she is protecting her airway. At this time I do not think it is necessary to intubate immediately however will closely monitor. Differential includes but is not limited to: Stroke, thyroid disturbance leading to possible myxedema coma, electrolyte abnormality, seizures, medication side effect, drug ingestion, infection including pneumonia or UTI, less likely meningitis or encephalitis she is afebrile High NIH of 25, however LKW was saturday afternoon around 2 PM. Given LKW, stroke team not called. Patient has a anaphylactic allergy to iodine contrast. In my review of her past imaging she has never received contrast here. CT of the brain, chest and abdomen pelvis was ordered. CBC with no leukocytosis and chronic anemia of 11.1, improved from December. BMP with baseline elevated BUN, normal creatinine. Glucose 172. Baseline elevated alk phos, otherwise normal liver enzymes. Normal BNP. Mildly elevated troponin at 22, reflexes pending. Lactic within normal limits. VBG with no respiratory acidosis. Urinalysis with no evidence of infection. Urine drug screen positive for benzos and barbiturates, explained by her meds that she is on for seizure ppx. CT brain with no acute intracranial abnormalities. CT chest abdomen and pelvis with diffuse ground glass densities which may represent CHF or pneumonia. There is perinephric fat stranding with no hydronephrosis or nephrolithiasis. Correlation with urinalysis is recommended. Given patient was requiring 2 L NC, abx for pneumonia were given. Difficult to assess fluid status due to body habitus however with normal BNP do not think this is CHF related.Phenobarb level pending at time of admission. On reevaluation the patient is on room air saturating 94%. Sister is now at bedside. They are healthcare power of trust and estates attorney's. They were updated on the workup so far and need for admission for further evaluation including possible EEG monitoring. They are agreeable with the plan. Patient has paperwork for DNR CCA CODE STATUS, I did discuss intubation if needed while admitted and they state that she would not want this done. Patient admitted to Dr. Hernández for further management. Clinical impression: AMS Mild hypothermia History & Record Review Discussion w/independent historian: EMS personnel and Family Lab Data Attestation: I reviewed the patient's lab results. Labs: Laboratory Results - last 24 hr 02/28/25 02/28/25 02/28/25 09:57 10:45 10:46 WBC 5.5 RBC 3.38 L Hgb 11.1 L Hct 33.1 L MCV 97.9 MCH 32.8 H MCHC 33.5 RDW Std Deviation 56.2 H RDW Coeff of [place] 15.6 H Plt Count 143 L MPV 10.6 Immature Gran % (Auto) 0.400 Neut % (Auto) 75.2 H Lymph % (Auto) 17.9 L [place] % (Auto) 5.4 Eos % (Auto) 0.9 Baso % (Auto) 0.2 Absolute Neuts (auto) 4.2 Absolute Lymphs (auto) 0.99 Nucleated RBC % 0 Sodium 139 Potassium 4.4 Chloride 98 Carbon Dioxide 27.6 Anion Gap 13 BUN 30 H Creatinine 0.97 Estim Creat Clear Calc 69.63 Est GFR (MDRD) Non-Af 61 BUN/Creatinine Ratio 31.3 H Glucose 172 H Lactic Acid 1.7 Calcium 9.7 Total Bilirubin 0.19 AST 29 ALT 35 Alkaline Phosphatase 127 H Troponin T High Sens 22 H D NT pro BNP II 75 Total Protein 7.4 Albumin 4.1 Globulin 3.3 Albumin/Globulin Ratio 1.2 TSH 2.440 Free T4 1.30 Free T3 pg/dL 2.0 L Urine Color Yellow Urine Clarity Clear Urine pH 7.0 Ur Specific [place] 1.010 Urine Protein 15 H Urine Glucose (UA) Normal Urine Ketones Negative Urine Occult Blood Negative Urine Nitrite Negative Urine Bilirubin Negative Urine Urobilinogen Normal Ur Leukocyte Esterase Negative Urine RBC 0-5 SEEN Urine WBC 0-5 SEEN Ur Squamous Epith Cells 0 SEEN Urine Bacteria 0 SEEN Urine Mucus 0 SEEN Urine Opiates Screen NEGATIVE U Buprenorphine Qual NEGATIVE Ur Oxycodone Screen NEGATIVE Urine Methadone Screen NEGATIVE Urine Fentanyl Screen NEGATIVE Ur Barbiturates Screen PRESUMPTIVE POSITIVE Ur Phencyclidine Scrn NEGATIVE Ur Amphetamines Screen NEGATIVE U Benzodiazepines Scrn PRESUMPTIVE POSITIVE Urine Cocaine Screen NEGATIVE U Cannabinoids Screen NEGATIVE Ethyl Alcohol < 10.1 ABG Data ABG results: ABG 02/28/25 11:04 Specimen Type SILVER Sample Site Not entered VBG pH 7.40 VBG pO2 78 H VBG HCO3 25 VBG Total CO2 26 VBG O2 Sat (Calc) 95 H VBG Base Excess 0 POC Mix VBG pCO2 Pt Tmp 40.5 L O2 Delivery Device Not entered Radiography Diagnostic Testing: Clinical Impression(s) from Imaging Studies Brain CT 02/28/25 10:36 IMPRESSION: No acute intracranial abnormalities. Reading Location: [facility] Chest/Abdomen/Pelvis CT 02/28/25 10:36 IMPRESSION: Diffuse ground-glass densities may represent CHF or pneumonia. Perinephric fat stranding. No hydronephrosis or nephrolithiasis. Correlation with urinalysis is recommended. Reading Location: [facility] Discharge Plan Triage Chief Complaint: Alt LOC ED Provider: Kate Romeo Dx/Rx/DC Orders Prescriptions: No Action Artificial Tears(glycerin-peg) 1-0.3 % drops 2 drp ophthalmic (eye) Q4H PRN (Reason: dry eye(s)) atorvastatin 20 mg tablet 20 mg PO QHS clonazepam 0.5 mg tablet 0.5 mg PO BID fluticasone propionate 220 mcg/actuation HFA aerosol inhaler 2 inh inhalation BID losartan 50 mg tablet 50 mg PO DAILY polyethylene glycol 3350 [Miralax] 17 gram/dose powder 17 g PO DAILY PRN (Reason: CONSTIPATION ) latanoprost 0.005 % drops 1 drp ophthalmic (eye) QHS amlodipine 10 mg tablet 10 mg PO QDAY docusate sodium 100 mg capsule 100 mg PO QDAY hydrochlorothiazide 25 mg tablet 25 mg PO QDAY clopidogrel 75 MG tablet 75 mg PO DAILY metoprolol succinate 100 MG tablet 100 mg PO QHS phenobarbital 60 mg tablet 60 mg PO Q12H paliperidone 6 MG tablet 6 mg PO QHS acetaminophen 500 mg tablet 1,000 mg PO BID levothyroxine 200 mcg tablet 200 mcg PO QHS cholecalciferol (vitamin D3) 25 mcg (1,000 unit) tablet 50 mcg PO DAILY escitalopram oxalate 10 mg Tablet 10 mg PO DAILY Qty: 0 0RF quetiapine 100 mg tablet 50 mg PO QHS triamcinolone acetonide 0.1 % cream 1 applic topical Q8 PRN (Reason: itching) pantoprazole [Protonix] 40 mg tablet,delayed release (DR/EC) 40 mg PO BID albuterol sulfate 90 mcg/actuation HFA aerosol inhaler 2 puff inhalation Q4H PRN (Reason: shortness of breath or wheezing) furosemide [Lasix] 40 mg tablet 40 mg PO DAILY Qty: 90 0RF clotrimazole 1 % cream 1 applic topical BID bisacodyl 10 mg suppository 10 mg [place] DAILY PRN (Reason: constipation) Primary Care Provider: Panda Mota Referrals: Panda Mota MD [Primary Care Provider, Family Practice] Print Language: Spanish
[2025-02-28 10:53] LABS: Mucous, Urine 0 SEEN /hpf (<or=2+); Squamous Epithelial Cells - UA 0 SEEN /hpf (5-10)
[2025-02-28 10:53] LABS: Hematocrit 33.1 % (37-47); Hemoglobin 11.1 g/dL (12.0-15.0); Immature Granulocytes Count 0.020 X10^3/uL (0.0-0.0); Mean Corp Hgb Conc 33.5 g/dL (32-36); Mean Corpuscular Volume 97.9 fL (81-99); Mean Platelet Vol. 10.6 fl (6.2-12.0); NRBC Flagged by Analyzer 0 % (0-5); Platelet Count 143 K/mm3 (150-450); RBC Distribution Width CV 15.6 % (11.6-14.6); RBC Distribution Width SD 56.2 fl (35.1-43.9); Red Blood Count 3.38 M/mm3 (4.2-5.4); White Blood Count 5.5 K/mm3 (4.4-11.0)
[2025-02-28 11:09] LABS: SITE Not entered; VBG BASE EXCESS 0 mmol/L (-1.0-3.5); VBG PO2 78 mmHg (25-40); VBG SO2 95 % (50-70); VBG TCO2 26 mmol/L (23-33)
[2025-02-28 11:12] LABS: Color, Urine Yellow (Yellow); Glucose, Dipstick Normal (Normal); Ketone-Dipstick Negative (Negative); Leukocyte Esterase-Dipstick Negative /ul (Negative); Nitrite-Dipstick Negative (Negative); Occult Blood-Urine Negative /ul (Negative); Protein-Dipstick 15 mg/dl (Negative); Specific Gravity, Urine 1.010 (1.002-1.030); Urine Bilirubin Dipstick Negative (Negative)
--- OUTSIDE RECORDS SUMMARY | 2025-02-28 11:19 | XMS RPT_ITS | CCD ---
Author Organization [facility] Care Team Providers Care Hammersmith Helper Name Role Phone Dr. Richa Daniels Primary Care Provider Dr. Richa Daniels Referring Provider [phone] [place] IT INFRASTRUCTURE MANAGER, IT INFRASTRUCTURE MANAGER-C [place] Attending Provider [phone] Dr. Richa Daniels Primary Care Provider Dr. Richa Daniels Referring Provider [phone] Teddy Saldana Attending Provider Dr. Richa Daniels Primary Care Provider [phone] Richa Daniels Referring Provider [phone] [place] IT INFRASTRUCTURE MANAGER, IT INFRASTRUCTURE MANAGER-C [place]ide Attending Provider [phone] MARISA GARRETT Referring Unavailable Dr. Richa Daniels MD Primary Care Provider [phone] Panda Littlejohn MD Attending Provider Unavailable Dr. Segundo Juarez DO Emergency Provider Dr. Panda Littlejohn MD Primary Care Provider Dr. Ibeth Parker MD Admit Provider Dr. Ibeth Parker MD Attending Provider Dr. Richa Daniels MD Primary Care Provider Panda Littlejohn MD Attending Provider Unavailable Dr. Segundo Juarez DO Emergency Provider Dr. Panda Littlejohn MD Primary Care Provider Dr. Ibeth Parker MD Admit Provider Elena JUAN, Dr. Ibeth Regalado Other Provider [phone] Parveen JUAN, Dr. Cespedes Other Provider Adilene JUAN, Dr. Platt Attending Provider Unavaila roxanne Birch MD, Dr. Kelly Other Provider Jayde JUAN, Dr. Sawyer Other Provider Sravan JUAN, Dr. Pritchett Other Provider Les ARNOLD, Dr. Espinal Other Provider Debora JUAN, Dr. Lc Talbert Other Provider [phone] Jasiel JUAN, Dr. Hutchins Other Provider [phone] Sarah JUAN, Dr. Lawson Other Provider [phone] Cheryl JUAN, Dr. Malave Other Provider Rajesh JUAN, Dr. Page Other Provider [phone] Miller JUAN, Dr. Traore Other Provider [phone] Dr. Paresh Brunson MD Other Provider [phone] [place] JUAN, Dr. Polanco Other Provider [phone] Diony JUAN, Dr. Ewing Other Provider [facility] yessi Smith MD, Dr. Castillo Other Provider [phone] Karie JUAN, Dr. Jara Other Provider [phone] Devan Colbert MD Other Provider [phone] Cassy JUAN, Dr. Luque Other Provider Dr. Carlo Reynoso DO Other Provider [phone] Nancy Albert MD Other Provider [phone] Kevan JUAN, Dr. Taylor Other Provider [phone] Ace Jasso DO Other Provider Vianca JUAN, Dr. Garibay Other Provider Abel Dent MD, Dr. Gómez Other Provider [phone] Renny JUAN, Dr. Greer Other Provider [phone] [place] IT INFRASTRUCTURE MANAGER-C, [place] Other Provider Shanae IT INFRASTRUCTURE MANAGER-C, Elisa Sherman Other Provider Adilene JUAN, Dr. Platt Other Provider Unavailable Les ARNOLD, Dr. Espinal Attending Provider Alexandra JUAN, Dr. Haynes Attending Provider Parveen JUAN, Dr. Cespedes Attending Provider Adam JUAN, Dr. Montiel Attending Provider Nakul JUAN, Dr. Panda Hdz Primary Care Provider Nakul JUAN, Panda Hdz Attending Provider Unavailable Nakul JUAN, Dr. Panda Hdz Referring Provider [place] IT INFRASTRUCTURE MANAGER-C, Heide Attending Provider Panda Littlejohn Primary Care Unavailable Littlejohn OLS, Panda K Attending Unavailable Littlejohn, Panda K Primary Care Unavailable Littlejohn OLS, Panda K Attending Unavailable Littlejohn OLS, Panda K Referring Unavailable Littlejohn, Panda K Primary Care Unavailable Littlejohn OLS, Panda K Attending Unavailable Littlejohn, Panda K Primary Care Unavailable Littlejohn OLS, Panda K Referring Unavailable Littlejohn OLS, Panda Hdz Attending Unavailable Littlejohn, Panda K Primary Care Unavailable Littlejohn OLS, Panda K Attending Unavailable Littlejohn OLS, Panda K Attending Unavailable Jolliff, Richa S Primary Care Unavailable Littlejohn OLS, Panda K Attending Unavailable Littlejohn, Panda K Primary Care Unavailable Littlejohn OLS, Panda K Attending Unavailable Jolliff, Richa S Primary Care Unavailable Luis Hernnádez Attending Unavailable Ajit, Peng Admitting Unavailable Adeli, Amir Consulting Unavailable Jolliff, Richa S Primary Care Unavailable Kavon, Hoa Consulting Unavailable Kaden Lee Consulting Unavailable Trish Agustin Consulting Unavailable Autumn Astorga Consulting Unavailable Noble Callejas Consulting Unavailable Robin Birch Consulting Unavailable Silverio Donohue Consulting Unavailable Teddy Saldana Consulting Unavailable Lc Cazares Consulting Unavailable Cuong Weathers Consulting Unavailable Renny Smith Consulting Unavailable Frieda Luna Consulting UnavailCamilo Stout Consulting Unavailable León Bhatt Consulting Unavailable Sherri Bartholomew Consulting Unavailable Aljundi, Lamia Consulting Unavailable Karie, Marek Consulting Unavailable Irukulla, Devan Consulting Unavailable Cassy, Rebel Consulting Unavailable Nancy Albert Consulting Unavailable Filipe, Rico Consulting Unavailable Percy Lawson Consulting Unavailable Nilda Palma Consulting Unavailable Hansel Spears Consulting Unavailable Dom Morley Consulting Unavailable REANNA SIDHU Consulting Unavailable Jaciel Browne Consulting Unavailable Mataleah, Macrina Consulting Unavailable [facility] [place], Peng Consulting Unavailable [facility] [place], Peng Attending Unavailable [facility] [place], Peng Consulting Unavailable [facility] [place], Peng Admitting Unavailable Richa Daniels Primary Care Unavailable [facility] [place], Peng Referring Unavailable Teddy Saldana Attending Unavailable Noble Callejas Consulting Unavailable Robin Birch Consulting Unavailable Silverio Donohue Consulting Unavailable Teddy Saldana Consulting Unavailable Lc Cazares Consulting Unavailable Cuong Weathers Consulting Unavailable Renny Smith Consulting Unavailable Frieda Luna Consulting UnavailCamilo Stout Consulting Unavailable León Bhatt Consulting Unavailable Sherri Bartholomew Consulting Unavailable Gildardo Vora Consulting Unavailable Karie, Marek Consulting Unavailable Irukulla, Devan Consulting Unavailable Cassy, Rebel Consulting Unavailable Nancy Albert Consulting Unavailable Filipe, Rico Consulting Unavailable Percy Lawson Consulting Unavailable Kike Kline Consulting Unavailable Colt Nascimento Consulting Unavailable Myra Rose Consulting Unavailable Kristen Jack Consulting Unavailable Hoa Jacobson Consulting Unavailable Pedro Stiles Consulting Unavailable Bharati Ordonez Consulting Unavailable Boo Renae Consulting Unavailable Eliezer Ling Consulting Unavailable Kaden Lee Consulting Unavailable Trish Agustin Consulting Unavailable Jitendra Santizo Consulting Unavailable Autumn Astorga Consulting Unavailable RidBob hernandez Consulting Unavailable Amy, Mhd Celestine Consulting UnavailHammad Hudson Consulting Unavailable Avery Rami Consulting Unavailable Doyle Gaxiola Consulting Unavailable Rose Issa Consulting Unavailable Franky Huitron Consulting Unavailable Nilda Palma Consulting Unavailable Hansel Spears Consulting Unavailable Dom Morley Consulting Unavailable REANNA SIDHU Consulting Unavailable Pavan, Jaciel Consulting Unavailable Jasvir, Macrina Consulting Unavailable Panda Littlejohn Primary Care Unavailable Rubina Saini Consulting Unavailable Rubina Saini Attending Unavailable Ibeth Parker Admitting Unavailable Robin Birch Consulting Unavailable Silverio Donohue Consulting Unavailable Shreyas Hinson Consulting Unavailable Teddy Saldana Consulting Unavailable Lc Cazares Consulting Unavailable uCong Weathers Consulting Unavailable Renny Smith Consulting Unavailable Frieda Luna Consulting UnavailCamilo Stout Consulting Unavailable León Bhatt Consulting Unavailable Paresh Brunson Consulting Unavailable Sherri Bartholomew Consulting Unavailable Gildardo Vora Consulting Unavailable SmithAnna evans Consulting Unavailable Karie, Marek Consulting Unavailable Devan Colbetr Consulting Unavailable Cassy, Rebel Consulting Unavailable Dhekevin, Carlo Consulting Unavailable Nancy Albert Consulting Unavailable Brandon Mathur Consulting Unavailable Ace Jasso Consulting Unavailable Phoenix Coley Consulting Unavailable Rico Dent Consulting Unavailable Percy Lawson Consulting Unavailable Carolina CENTENO, Heide Consulting Unavailable Elisa Jolly Consulting Unavailable Ibeth Parker Consulting Unavailable Lc Head Consulting Unavailable Lc Heda Referring Unavailable Teddy Saldana Attending Unavailable Panda Littlejohn Primary Care Unavailable Dallas Morris Attending Unavailable Ibeth Parker Referring Unavailable Ibeth Parker Attending Unavailable Lc Head Attending Unavailable Panda Martino Attending Unavailable Richa Daniels S Primary Care Unavailable Littlejohn, Panda K Primary Care Unavailable Littlejohn Panda TRUONG Attending Unavailable Luis Hernández Attending Unavailable Luis Hernández Consulting Unavailable Luis Hernández Referring Unavailable Lynnette, Austen Attending Unavailable Richa Daniels S Primary Care Unavailable Littlejohn, Panda K Primary Care Unavailable Heide Figueroa NP Attending Unavailable Richa Daniels Referring Unavailable Lc Head Attending Unavailable Nakul, Panda K Primary Care Unavailable Ibeth Parker Admitting Unavailable Parveen, Rubina Consulting Unavailable Ibeth Parker Consulting Unavailable Lynnette, Austen Attending Unavailable Nakul Panda K Primary Care Unavailable Panda Mratino Attending Unavailable Littlejohn, Panda K Primary Care Unavailable Littlejohn, Panda K Referring Unavailable Heide Figueroa NP Attending Unavailable Dinesh Medina Attending Unavailabl e Allergies Allergy Classification Reported Allergen(s) Allergy Type Date of Onset Reaction(s) Facility (7 sources) Codeine Drug Allergy 11-16-19 22 Shortness of breath [facility] (8 sources) Dextromethorphan; Translations: [dextromethorphan HBr] Drug Allergy 11-16-19 22 Shortness of breath [facility] (7 sources) diazePAM Drug Allergy 11-16-19 22 Shortness of breath [facility] (7 sources) guaiFENesin Drug Allergy 11-16-19 22 Shortness of breath [facility] (8 sources) HYDROcodone; Translations: [hydrocodone bitartrate] Drug Allergy 11-16-19 22 Shortness of breath [facility] (7 sources) Iodine Drug Allergy 11-16-19 22 Anaphylaxis [facility] (7 sources) Morphine Drug Allergy 11-16-19 22 Shortness of breath [facility] (8 sources) natural latex rubber; Translations: [Latex, Natural Rubber] Allergy to substance 11-16-19 22 Shortness of breath [facility] (8 sources) Phenylephrine; Translations: [phenylephrine HCl] Drug Allergy 11-16-19 22 Shortness of breath [facility] (8 sources) Phenytoin; Translations: [phenytoin sodium] Drug Allergy 11-16-19 22 Shortness of breath [facility] (8 sources) Phenytoin; Translations: [phenytoin sodium extended] Drug Allergy 11-16-19 22 Shortness of breath [facility] (7 sources) Povidone-Iodine Drug Allergy 11-16-19 22 BLISTERS [facility] (8 sources) Pseudoephedrine; Translations: [pseudoephedrine HCl] Drug Allergy 11-16-19 22 Shortness of breath [facility] (8 sources) soap; Translations: [soap] Allergy to substance 11-16-19 22 BLISTERS [facility] (2 sources) ANTI-INFLAMMATORY DRUGS Allergy to substance 11-16-19 22 Shortness of breath [facility] Work Phone: (2 sources) BANANA PEELS Allergy to substance 11-16-19 22 Shortness of breath [facility] Work Phone: (2 sources) PASSION FRUIT Allergy to substance 11-16-19 22 Shortness of breath [facility] Work Phone: (3 sources) SLEEPING PILLS Allergy to substance 11-16-19 22 Shortness of breath [facility] (8 sources) muscle relaxers; Translations: [muscle relaxers] Allergy to substance 11-16-19 22 Shortness of breath [facility] (5 sources) Nonsteroidal Anti-inflammatory Compounds Allergy to substance 11-15-19 23 Shortness of breath [facility] (6 sources) Food Allergies: Uncoded; Translations: [Food Allergies: Uncoded] Allergy to substance 11-15-19 23 Shortness of breath [facility] Comment on above: banana peels, passio n fruit (3 sources) Amoxicillin Drug Allergy 03-11-20 24 NEEDS FOLLOW-UP [facility] (3 sources) cyclobenzaprine Drug Allergy 03-11-20 24 NEEDS FOLLOW-UP [facility] (3 sources) fluticasone Drug Allergy 03-11-20 24 NEEDS FOLLOW-UP [facility] (3 sources) [id number] [id number] Drug Allergy 03-11-20 NEEDS FOLLOW-UP [facility] (3 sources) oxaprozin Drug Allergy 03-11-20 24 NEEDS FOLLOW-UP [facility] (3 sources) oxyCODONE Drug Allergy 03-11-20 24 NEEDS FOLLOW-UP [facility] (3 sources) Phenytoin Drug Allergy 03-11-20 24 NEEDS FOLLOW-UP [facility] (3 sources) salmeterol Drug Allergy 03-11-20 NEEDS FOLLOW-UP [facility] (4 sources) Shellfish; Translations: [shellfish derived] Allergy to substance 03-11-20 NEEDS FOLLOW-UP [facility] (3 sources) Tetracycline Drug Allergy 03-11-20 NEEDS FOLLOW-UP [facility] (1 source) Amoxicillin Drug Allergy 12-17-19 25 [facility] Repository (1 source) Codeine Drug Allergy 12-17-19 25 [facility] Repository (1 source) cyclobenzaprine Drug Allergy 12-17-19 25 [facility] Repository (1 source) diazePAM Drug Allergy 12-17-19 25 [facility] Repository (1 source) fluticasone Drug Allergy 12-17-19 25 [facility] Repository (1 source) guaiFENesin Drug Allergy 12-17-19 25 [facility] Repository (1 source) Iodine Drug Allergy 12-17-19 25 [facility] Repository (1 source) Morphine Drug Allergy 12-17-19 [facility] Repository (1 source) oxaprozin Drug Allergy 12-17-19 [facility] Repository (1 source) oxyCODONE Drug Allergy 12-17-19 [facility] Repository (1 source) Phenytoin Drug Allergy 12-17-19 [facility] Repository (1 source) Povidone-Iodine Drug Allergy 12-17-19 [facility] Repository (1 source) salmeterol Drug Allergy 12-17-19 [facility] Repository (1 source) Tetracycline Drug Allergy 12-17-19 [facility] Repository (1 source) tositumomab Drug Allergy 12-17-19 [facility] Repository (1 source) NSAIDS (Non-Steroidal Anti-Inflamma Drug allergy (disorder) 12-17-19 [facility] Repository Medications Current Medications Medication Drug Class(es) Dates Sig (Normalized) Sig (Original) acetaminophen 500 mg oral tablet (3 sources) Start: 03-11-2024 take 1 tablet by mouth every six hours as needed for pain Acetaminophen 500 mg tablet Active 500 mg PO EVERY 6 HOURS as needed for pain March 11, 2024 12:00am [id number] 200 actuat albuterol 0.09 mg/actuat metered dose inhaler (20 sources) beta2-Adrenergic Agonist Start: 08-13-2024 Albuterol Sulfate 90 mcg/actuation HFA aerosol inhaler Active 2 NMA INHALATION Q4H as needed for shortness of breath or wheezing August 13, 2024 1:00am Start: 11-27-2023 End: 12-16-2024 take 2.5 mg by inhalation once daily as needed for wheezing Albuterol Sulfate 2.5 mg /3 mL (0.083 %) solution for nebulization Discontinued 2.5 mg INHALATION DAILY as needed for shortness of breath or wheezing November 27, 2023 12:00am December 16, 2024 1:23pm Start: 05-30-2022 End: 08-13-2024 Albuterol Sulfate 90 mcg/act uation HFA aerosol inhaler Discontinued 2 NMA INHALATION EVERY 6 HOURS as needed for shortness of breath or wheezing 8.5 2 August 10, 2022 11:24am August 13, 2024 5:36pm Start: 05-30-2022 End: 08-10-2022 take 1 puff(s) by inhalation every six hours Albuterol Sulfate Active 2 PUFF INHALATION EVERY 6 HOURS 8.5 August 10, 2022 11:24am Start: 06-16-2019 End: 04-07-2021 Albuterol Sulfate 90 mcg/act uation HFA aerosol inhaler Discontinued 2 NMA INHALATION EVERY 6 HOURS as needed for shortness of breath or wheezing 1 November 02, 2020 10:07am April 07, 2021 5:09pm administer with spacer Start: 06-16-2019 End: 04-07-2021 take 1 puff(s) by inhalation every six hours Albuterol Sulfate Discontinued 2 PUFF INHALATION EVERY 6 HOURS November 02, 2020 10:07am April 07, 2021 5:09pm administer with spacer Start: 10-07-2018 End: 06-16-2019 Albuterol Sulfate 90 mcg/act uation HFA aerosol inhaler Discontinued 2 NMA INHALATION EVERY 6 HOURS as needed for shortness of breath or wheezing 1 October 07, 2018 12:00am June 16, 2019 2:41pm administer with spacer Start: 10-07-2018 End: 06-16-2019 take 1 puff(s) by inhalation every six hours Albuterol Sulfate Discontinued 2 PUFF INHALATION EVERY 6 HOURS 1 October 07, 2018 12:00am June 16, 2019 2:41pm administer with spacer Start: 03-28-2013 End: 10-07-2018 Albuterol Sulfate 1 INHALER inhaler Discontinued 1 - 2 NMA INHALATION EVERY 6 HOURS NEEDED March 28, 2013 12:00am October 07, 2018 9:22am Start: 03-28-2013 End: 10-07-2018 Albuterol Sulfate 1 INHALER inhaler Discontinued 1 - 2 NMA INHALATION EVERY 6 HOURS NEEDED March 27, 2013 11:00pm October 07, 2018 8:22am Start: 03-28-2013 End: 10-07-2018 take 1 puff(s) by inhalation every six hours as needed Albuterol Sulfate Discontinued 1 - 2 PUFF INHALATION EVERY 6 HOURS NEEDED March 27, 2013 11:00pm October 07, 2018 8:22am Start: 03-28-2013 End: 10-07-2018 take 1 puff(s) by inhalation every six hours as needed Albuterol Sulfate Discontinued 1 - 2 PUFF INHALATION EVERY 6 HOURS NEEDED March 28, 2013 12:00am October 07, 2018 9:22am amLODIPine 10 mg oral tablet (1 source) Dihydropyridine Calcium Channel Abdullahi Start: 12-16-2024 take 1 tablet by mouth once daily Amlodipine 10 mg tablet Active 10 mg PO daily December 16, 2024 12:00am atorvastatin 20 mg oral tablet (3 sources) HMG-CoA Reductase Inhibitor Start: 11-27-2023 take 1 tablet by mouth at bedtime Atorvastatin 20 mg tablet Active 20 mg PO AT BEDTIME November 27, 2023 12:00am cholecalciferol 0.025 mg oral tablet (10 sources) Vitamin D Start: 03-11-2024 take 1 tablet by mouth once daily Cholecalciferol (Vitamin D3) 25 mcg (1,000 unit) tablet Active 50 ug PO DAILY March 11, 2024 12:00am Start: 07-25-2018 End: 03-11-2024 take 1 tablet by mouth once daily Cholecalciferol (Vitamin D3) 2,000 unit tablet Discontinued 2000 U PO DAILY July 25, 2018 1:00am March 11, 2024 11:08am clonazePAM 0.5 mg oral tablet (17 sources) Benzodiazepine Start: 11-27-2023 take 1 tablet by mouth twice daily Clonazepam 0.5 mg tablet Active 0.5 mg PO TWICE A DAY November 27, 2023 12:00am Start: 11-15-2021 End: 11-27-2023 take 1 tablet by mouth three times daily Clonazepam 1 mg tablet Discontinued 1 mg PO THREE TIMES A DAY 0 0 November 15, 2021 10:25am November 27, 2023 10:58am Start: 03-28-2013 End: 11-15-2021 take 1 tablet by mouth four times daily Clonazepam 1 MG tablet Discontinued 1 mg PO 4 TIMES DAILY 0 0 March 28, 2013 12:00am November 15, 2021 10:30am clopidogrel 75 mg oral tablet (7 sources) [id number] Platelet Inhibitor Start: 03-28-2013 take 1 tablet by mouth once daily Clopidogrel 75 MG tablet Active 75 mg PO DAILY March 28, 2013 12:00am docusate sodium 100 mg oral capsule (1 source) Start: 12-16-2024 take 1 capsule by mouth once daily Docusate Sodium 100 mg capsule Active 100 mg PO daily December 16, 2024 12:00am escitalopram 10 mg oral tablet (10 sources) Serotonin Reuptake Inhibitor Start: 03-16-2024 take 1 tablet by mouth once daily Escitalopram Oxalate 10 mg Tablet Active 10 mg PO DAILY 0 0 March 16, 2024 12:00am Start: 03-28-2013 End: 03-11-2024 take 1 tablet by mouth once daily Escitalopram Oxalate 20 MG tablet Discontinued 20 mg PO DAILY March 28, 2013 12:00am March 11, 2024 2:34pm Fluticasone Propionate 220 mcg/actuation HFA aerosol inhaler (3 sources) Start: 11-27-2023 Fluticasone Pr opionate 220 mcg/actuation HFA aerosol inhaler Active 2 NMA INHALATION TWICE A DAY November 27, 2023 12:00am Start: 11-27-2023 Fluticasone Pr opionate 220 mcg/actuation HFA aerosol inhaler Active 2 NMA INHALATION TWICE A DAY November 26, 2023 11:00pm furosemide 40 mg oral tablet (2 sources) Loop Diuretic Start: 08-17-2024 take 1 tablet by mouth once daily Furosemide (Lasix) 40 mg tablet Active 40 mg PO DAILY 90 0 August 17, 2024 12:00am glycerin 3 mg/ml / propylene glycol 10 mg/ml ophthalmic solution (3 sources) Non-Standardi zed Chemical Allergen Start: 11-27-2023 Propylene Glycol-Glycerin (Artificial Tears(Glycerin-Peg)) 1-0.3 % drops Active 2 NMA OPHTHALMIC Q4H as needed for dry eye(s) November 27, 2023 12:00am hydroCHLOROthiazide 25 mg oral tablet (8 sources) Thiazide Diuretic Start: 12-16-2024 take 1 tablet by mouth once daily Hydrochlorothiazide 25 mg tablet Active 25 mg PO daily December 16, 2024 12:00am Start: 03-28-2013 End: 08-17-2024 take 1 tablet by mouth once daily Hydrochlorothiazide 25 MG tablet Discontinued 25 mg PO DAILY 0 0 March 28, 2013 12:00am August 17, 2024 11:14am latanoprost 0.05 mg/ml ophthalmic solution (3 sources) Prostaglandin Analog Start: 11-27-2023 Latanoprost 0.005 % drops Active 1 NMA OPHTHALMIC AT BEDTIME November 27, 2023 12:00am levothyroxine sodium 0.2 mg oral tablet (10 sources) l-Thyroxine Start: 03-11-2024 take 1 tablet by mouth at bedtime Levothyroxine 200 mcg tablet Active 200 ug PO AT BEDTIME March 11, 2024 12:00am Start: 03-28-2013 End: 03-11-2024 take 1 tablet by mouth once daily Levothyroxine 300 MCG tablet Discontinued 300 ug PO DAILY March 28, 2013 12:00am March 11, 2024 10:58am losartan potassium 50 mg oral tablet (3 sources) Angiotensin 2 Receptor Abdullahi Start: 11-27-2023 take 1 tablet by mouth once daily Losartan 50 mg tablet Active 50 mg PO DAILY November 27, 2023 12:00am 24 hr metoprolol succinate 100 mg extended release oral tablet (7 sources) beta-Adrenergic Abdullahi Start: 03-28-2013 take 1 tablet by mouth once daily Metoprolol Succinate 100 MG tablet Active 100 mg PO DAILY March 28, 2013 12:00am Start: 03-28-2013 take 100 mg by mouth twice daily Metoprolol Succinate Active 100 MG PO TWICE A DAY March 28, 2013 12:00am 24 hr paliperidone 6 mg extended release oral tablet (7 sources) Atypical Antipsychotic Start: 01-31-2017 take 1 tablet by mouth at bedtime Paliperidone 6 MG tablet Active 6 mg PO AT BEDTIME January 31, 2017 12:00am pantoprazole 40 mg delayed release oral tablet (6 sources) Proton Pump Inhibitor Start: 03-16-2024 End: 08-13-2024 take 1 tablet by mouth twice daily Pantoprazole (Protonix) 40 mg tablet,delayed release (DR/EC) Active 40 mg PO TWICE A DAY August 13, 2024 1:00am PHENobarbital 60 mg oral tablet (20 sources) Start: 03-11-2024 Phenobarbital 60 mg tablet Active 60 mg PO TU March 11, 2024 12:00am seizures Start: 03-28-2013 End: 11-27-2023 take 1 tablet by mouth at bedtime Phenobarbital 60 mg tablet Active 180 mg PO SUMOWETHSA November 27, 2023 11:04am seizures GIVE AT BEDTIME Start: 03-28-2013 take 180 mg by mouth at breakfast Phenobarbital Active 180 MG PO WITH BREAKFAST March 28, 2013 12:00am Start: 03-28-2013 take 120 mg by mouth at bedtim e Phenobarbital Active 120 MG PO AT BEDTIME March 28, 2013 12:00am polyethylene glycol 3350 15681 mg powder for oral solution (3 sources) Osmotic Laxative Start: 11-27-2023 Polyethylene Glycol 3350 (Miralax) 17 gram/dose powder Active 17 g PO DAILY as needed for CONSTIPATION November 27, 2023 12:00am QUEtiapine 100 mg oral tablet (9 sources) Atypical Antipsychotic Start: 08-13-2024 take 1 tablet by mouth at bedtime Quetiapine 100 mg tablet Active 100 mg PO AT BEDTIME August 13, 2024 1:00am Start: 03-11-2024 End: 08-13-2024 Quetiapine 25 mg tablet Disc ontinued 25 mg PO TWICE A DAY March 11, 2024 12:00am August 13, 2024 5:31pm PSYCHOSIS GIVE WITH 50MG TAB TO EQUAL TOTAL DOSE OF 75MG. Start: 03-11-2024 End: 08-13-2024 take 1 tablet by mouth three times daily Quetiapine 50 mg tablet Discontinued 50 mg PO THREE TIMES A DAY March 11, 2024 12:00am August 13, 2024 5:31pm AGGITATION triamcinolone acetonide 1 mg/ml topical cream (3 sources) Corticosteroid Start: 08-13-2024 Triamcinolone Acetonide 0.1 % cream Active 1 NMA TOPICAL EVERY 8 HOURS as needed for itching August 13, 2024 1:00am Completed/Discontinued Medications Medication Drug Class(es) Dates Sig (Normalized) Sig (Original) betamethasone 0.5 mg/ml / clotrimazole 10 mg/ml topical cream (7 sources) Azole Antifungal, Corticosteroid Start: 10-14-2017 End: 04-07-2021 Clotrimazole-Betam ethasone 1 APPLIC cream Discontinued 1 NMA TOPICAL DAILY as needed for Itching October 14, 2017 12:00am April 07, 2021 5:09pm Start: 10-14-2017 End: 04-07-2021 Clotrimazole-Betamethasone D iscontinued 1 APPLIC TOPICAL DAILY October 14, 2017 12:00am April 07, 2021 5:09pm budesonide 0.25 mg/ml inhalation suspension (2 sources) Corticosteroid Start: 08-17-2024 End: 12-16-2024 take 0.5 mg by inhalation twice daily Budesonide 0.5 mg/2 mL suspension for nebulization Discontinued 0.5 mg INHALATION TWICE A DAY 60 0 August 17, 2024 12:00am December 16, 2024 1:23pm cefdinir 300 mg oral capsule (12 sources) Cephalosporin Antibacterial Start: 08-17-2024 End: 11-27-2024 take 1 capsule by mouth twice daily Cefdinir 300 mg capsule Discontinued 300 mg PO TWICE A DAY 14 0 August 17, 2024 12:00am November 27, 2024 1:44pm Start: 03-16-2024 End: 08-13-2024 take 1 capsule by mouth twice daily Cefdinir 300 mg capsule Discontinued 300 mg PO TWICE A DAY 10 5 March 16, 2024 12:00am August 13, 2024 5:36pm Start: 07-02-2021 End: 07-09-2021 take 1 capsule by mouth twice daily Cefdinir 300 mg capsule Discontinued 300 mg PO TWICE A DAY 14 7 July 02, 2021 1:00am July 08, 2021 1:00am July 09, 2021 1:03am cephalexin 500 mg oral capsule (7 sources) Cephalosporin Antibacterial Start: 04-07-2021 End: 04-17-2021 take 1 capsule by mouth every twelve hours Cephalexin 500 mg capsule Discontinued 500 mg PO Q12H 20 10 April 07, 2021 12:00am April 16, 2021 12:00am April 17, 2021 1:01am dexamethasone 6 mg oral tablet (3 sources) Corticosteroid Start: 03-16-2024 End: 08-13-2024 take 1 tablet by mouth once daily Dexamethasone 6 mg tablet Discontinued 6 mg PO DAILY 4 March 16, 2024 12:00am August 13, 2024 5:35pm diphenhydrAMINE hydrochloride 50 mg/ml injectable solution (3 sources) Histamine-1 Receptor Antagonist Start: 03-11-2024 End: 08-13-2024 inject 50 mg by intramuscular injection once Diphenhydramine Hcl 50 mg/mL solution Discontinued 50 mg IM ONE TIME March 11, 2024 12:00am August 13, 2024 5:35pm DISTONIA estradiol 0.1 mg/ml vaginal cream (7 sources) Estrogen Start: 10-14-2017 End: 11-15-2021 Estradiol 42.5 GM cream Discontinued 1 NMA VAGINAL October 14, 2017 12:00am November 15, 2021 10:26am Start: 10-14-2017 End: 11-15-2021 Estradiol Discontinued 1 DOS E VAGINAL October 14, 2017 12:00am November 15, 2021 10:26am famotidine 10 mg oral tablet (15 sources) Histamine-2 Receptor Antagonist Start: 11-27-2023 End: 03-16-2024 Famotidine (Pepcid Ac) 10 mg tablet Discontinued 20 mg PO TWICE A DAY as needed for heartburn November 27, 2023 10:59am March 16, 2024 3:28pm Start: 11-14-2022 End: 11-27-2023 take 1 tablet by mouth once daily as needed Famotidine (Pepcid Ac) 10 mg tablet Discontinued 10 mg PO DAILY as needed November 14, 2022 12:00am November 27, 2023 11:05am Start: 12-19-2020 End: 04-07-2021 take 1 tablet by mouth twice daily Famotidine (Pepcid) 20 mg Tablet Discontinued 20 mg PO TWICE A DAY December 19, 2020 12:00am April 07, 2021 5:10pm Fluticasone Propionate (20 sources) Corticosteroid Start: 06-24-2023 End: 11-27-2023 take 100 ug by inhalation twice daily Fluticasone Propionate (Flovent Diskus) 100 mcg/actuation blister with device Discontinued 1 NMA INHALATION TWICE A DAY 60 June 24, 2023 1:23pm November 27, 2023 11:05am Start: 06-24-2023 End: 11-27-2023 take 100 ug by inhalation twice daily Fluticasone Propionate (Flovent Diskus) 100 mcg/actuation blister with device Discontinued 1 NMA INHALATION TWICE A DAY June 24, 2023 1:23pm November 27, 2023 11:05am Start: 06-24-2023 End: 11-27-2023 take 100 ug by inhalation twice daily Fluticasone Propionate (Flovent Diskus) 100 mcg/actuation blister with device Discontinued 1 NMA INHALATION TWICE A DAY June 24, 2023 12:23pm November 27, 2023 10:05am Start: 06-24-2023 take 100 ug by inhal ation twice daily Fluticasone Propionate (Flovent Diskus) 100 mcg/actuation blister with device Active 1 INH INHALATION TWICE A DAY 60 June 24, 2023 1:23pm Start: 12-03-2022 End: 06-24-2023 take 100 ug by inhalation twice daily Fluticasone Propionate (Flovent Diskus) 100 mcg/actuation blister with device Discontinued 1 NMA INHALATION TWICE A DAY 60 6 December 03, 2022 11:44am June 24, 2023 1:23pm Start: 12-03-2022 End: 06-24-2023 take 100 ug by inhalation twice daily Fluticasone Propionate (Flovent Diskus) 100 mcg/actuation blister with device Discontinued 1 NMA INHALATION TWICE A DAY 60 December 03, 2022 11:44am June 24, 2023 1:23pm Start: 12-03-2022 End: 06-24-2023 take 100 ug by inhalation twice daily Fluticasone Propionate (Flovent Diskus) 100 mcg/actuation blister with device Discontinued 1 NMA INHALATION TWICE A DAY 60 December 03, 2022 10:44am June 24, 2023 12:23pm Start: 12-03-2022 End: 06-24-2023 take 100 ug by inhalation twice daily Fluticasone Propionate (Flovent Diskus) 100 mcg/actuation blister with device Discontinued 1 INH INHALATION TWICE A DAY 60 December 03, 2022 11:44am June 24, 2023 1:23pm Start: 12-03-2022 take 100 ug by inhal ation twice daily Fluticasone Propionate (Flovent Diskus) 100 mcg/actuation blister with device Active 1 INH INHALATION TWICE A DAY 60 December 03, 2022 11:44am Start: 06-06-2022 End: 12-03-2022 take 100 ug by inhalation twice daily Fluticasone Propionate (Flovent Diskus) 100 mcg/actuation blister with device Discontinued 1 NMA INHALATION TWICE A DAY 60 June 06, 2022 12:28pm December 03, 2022 11:44am Start: 06-06-2022 End: 12-03-2022 take 100 ug by inhalation twice daily Fluticasone Propionate (Flovent Diskus) 100 mcg/actuation blister with device Discontinued 1 NMA INHALATION TWICE A DAY 60 June 06, 2022 12:28pm December 03, 2022 11:44am Start: 06-06-2022 End: 12-03-2022 take 100 ug by inhalation twice daily Fluticasone Propionate (Flovent Diskus) 100 mcg/actuation blister with device Discontinued 1 NMA INHALATION TWICE A DAY 60 June 06, 2022 11:28am December 03, 2022 10:44am Start: 06-06-2022 End: 12-03-2022 take 100 ug by inhalation twice daily Fluticasone Propionate (Flovent Diskus) 100 mcg/actuation blister with device Discontinued 1 INH INHALATION TWICE A DAY 60 June 06, 2022 12:28pm December 03, 2022 11:44am Start: 06-06-2022 take 100 ug by inhal ation twice daily Fluticasone Propionate (Flovent Diskus) 100 mcg/actuation blister with device Active 1 INH INHALATION TWICE A DAY 60 June 06, 2022 11:28am Start: 11-15-2021 End: 06-06-2022 take 100 ug by inhalation twice daily Fluticasone Propionate (Flovent Diskus) 100 mcg/actuation blister with device Discontinued 1 NMA INHALATION TWICE A DAY 60 November 15, 2021 10:42am June 06, 2022 12:28pm Start: 11-15-2021 End: 06-06-2022 take 100 ug by inhalation twice daily Fluticasone Propionate (Flovent Diskus) 100 mcg/actuation blister with device Discontinued 1 NMA INHALATION TWICE A DAY 60 November 15, 2021 10:42am June 06, 2022 12:28pm Start: 11-15-2021 End: 06-06-2022 take 100 ug by inhalation twice daily Fluticasone Propionate (Flovent Diskus) 100 mcg/actuation blister with device Discontinued 1 NMA INHALATION TWICE A DAY 60 November 15, 2021 9:42am June 06, 2022 11:28am Start: 11-15-2021 End: 06-06-2022 take 100 ug by inhalation twice daily Fluticasone Propionate (Flovent Diskus) 100 mcg/actuation blister with device Discontinued 1 INH INHALATION TWICE A DAY 60 November 15, 2021 10:42am June 06, 2022 12:28pm Start: 11-15-2021 End: 06-06-2022 take 100 ug by inhalation twice daily Fluticasone Propionate (Flovent Diskus) 100 mcg/actuation blister with device Discontinued 1 INH INHALATION TWICE A DAY 60 November 15, 2021 9:42am June 06, 2022 11:28am Start: 11-15-2021 take 100 ug by inhal ation twice daily Fluticasone Propionate (Flovent Diskus) 100 mcg/actuation blister with device Active 1 INH INHALATION TWICE A DAY 60 November 15, 2021 10:42am Start: 10-31-2021 End: 11-15-2021 take 100 ug by inhalation twice daily Fluticasone Propionate (Flovent Diskus) 100 mcg/actuation blister with device Discontinued 1 NMA INHALATION TWICE A DAY 60 October 31, 2021 10:16am November 15, 2021 10:42am Start: 10-31-2021 End: 11-15-2021 take 100 ug by inhalation twice daily Fluticasone Propionate (Flovent Diskus) 100 mcg/actuation blister with device Discontinued 1 NMA INHALATION TWICE A DAY 60 October 31, 2021 10:16am November 15, 2021 10:42am Start: 10-31-2021 End: 11-15-2021 take 100 ug by inhalation twice daily Fluticasone Propionate (Flovent Diskus) 100 mcg/actuation blister with device Discontinued 1 NMA INHALATION TWICE A DAY 60 October 31, 2021 9:16am November 15, 2021 9:42am Start: 10-31-2021 End: 11-15-2021 take 100 ug by inhalation twice daily Fluticasone Propionate (Flovent Diskus) 100 mcg/actuation blister with device Discontinued 1 INH INHALATION TWICE A DAY 60 October 31, 2021 9:16am November 15, 2021 9:42am Start: 10-31-2021 End: 11-15-2021 take 100 ug by inhalation twice daily Fluticasone Propionate (Flovent Diskus) 100 mcg/actuation blister with device Discontinued 1 INH INHALATION TWICE A DAY 60 October 31, 2021 10:16am November 15, 2021 10:42am Start: 04-20-2021 End: 10-31-2021 take 100 ug by inhalation twice daily Fluticasone Propionate (Flovent Diskus) 100 mcg/actuation blister with device Discontinued 1 NMA INHALATION TWICE A DAY 60 April 20, 2021 1:00am October 31, 2021 10:16am Start: 04-20-2021 End: 10-31-2021 take 100 ug by inhalation twice daily Fluticasone Propionate (Flovent Diskus) 100 mcg/actuation blister with device Discontinued 1 NMA INHALATION TWICE A DAY 60 April 20, 2021 1:00am October 31, 2021 10:16am Start: 04-20-2021 End: 10-31-2021 take 100 ug by inhalation twice daily Fluticasone Propionate (Flovent Diskus) 100 mcg/actuation blister with device Discontinued 1 NMA INHALATION TWICE A DAY 60 April 20, 2021 12:00am October 31, 2021 9:16am Start: 04-20-2021 End: 10-31-2021 take 100 ug by inhalation twice daily Fluticasone Propionate (Flovent Diskus) 100 mcg/actuation blister with device Discontinued 1 INH INHALATION TWICE A DAY 60 April 20, 2021 12:00am October 31, 2021 9:16am Start: 04-20-2021 End: 10-31-2021 take 100 ug by inhalation twice daily Fluticasone Propionate (Flovent Diskus) 100 mcg/actuation blister with device Discontinued 1 INH INHALATION TWICE A DAY 60 April 20, 2021 1:00am October 31, 2021 10:16am Start: 04-17-2021 End: 10-31-2021 Fluticasone Propionate (Flov ent Hfa) 220 mcg/actuation HFA aerosol inhaler Discontinued 2 NMA INHALATION TWICE A DAY 12 April 17, 2021 1:00am October 31, 2021 10:13am administer with spacer Start: 04-17-2021 End: 10-31-2021 take 1 puff(s) by inhalation twice daily Fluticasone Propionate (Flovent Hfa) 220 mcg/actuation HFA aerosol inhaler Discontinued 2 PUFF INHALATION TWICE A DAY 12 November 8th, 2021 1:00am October 31, 2021 10:13am administer with spacer Start: 10-07-2018 End: 04-17-2021 take 50 ug by inhalation twice daily Fluticasone Propionate (Flovent Diskus) 50 mcg/actuation blister with device Discontinued 2 NMA INHALATION TWICE A DAY 60 6 February 23, 2021 2:55pm April 17, 2021 4:07pm Start: 03-28-2013 End: 12-18-2018 Fluticasone Propionate 50 MC G blister with device Discontinued 2 NMA INHALATION TWICE A DAY March 28, 2013 12:00am December 18, 2018 10:14am Start: 03-28-2013 End: 12-18-2018 take 1 puff(s) by inhalation twice daily Fluticasone Propionate Discontinued 2 PUFF INHALATION TWICE A DAY March 28, 2013 12:00am December 18, 2018 10:14am 12 hr guaiFENesin 600 mg extended release oral tablet (2 sources) Start: 08-17-2024 End: 12-16-2024 take 2 tablets by mouth twice daily, then take 1 tablet by mouth every twelve hours Guaifenesin (Mucinex) 600 mg tablet extended release 12hr Discontinued 1200 mg PO TWICE A DAY 20 0 August 17, 2024 12:00am December 16, 2024 1:23pm ammonium lactate 120 mg/ml topical lotion (3 sources) Start: 11-27-2023 End: 03-11-2024 Ammonium Lactate 12 % lotion Discontinued TOPICAL BEDTIME November 27, 2023 12:00am March 11, 2024 11:09am loratadine 10 mg oral tablet (3 sources) Start: 11-27-2023 End: 08-13-2024 take 1 tablet by mouth once daily Loratadine 10 mg tablet Discontinued 10 mg PO DAILY November 27, 2023 12:00am August 13, 2024 5:36pm LORazepam 0.5 mg oral tablet (7 sources) Benzodiazepine Start: 01-31-2017 End: 04-07-2021 take 1 tablet by mouth twice daily as needed Lorazepam 0.5 MG tablet Discontinued 0.5 mg PO TWICE DAILY NEEDED as needed for Seizure January 31, 2017 12:00am April 07, 2021 5:09pm lovastatin 20 mg oral tablet (7 sources) HMG-CoA Reductase Inhibitor Start: 03-28-2013 End: 11-27-2023 take 1 tablet by mouth at bedtime Lovastatin 20 MG tablet Discontinued 20 mg PO AT BEDTIME March 28, 2013 12:00am November 27, 2023 11:05am montelukast 10 mg oral tablet (19 sources) Leukotriene Receptor Antagonist Start: 03-28-2013 End: 12-16-2024 take 1 tablet by mouth at bedtime Montelukast 10 mg tablet Discontinued 10 mg PO AT BEDTIME 90 3 December 03, 2022 9:51am December 16, 2024 1:23pm Multivitamin With Folic Acid (4 sources) Start: 03-28-2013 End: 04-07-2021 take 1 tablet by mouth once daily Multivitamin With Folic Acid Discontinued 1 TABLET PO DAILY March 27, 2013 11:00pm April 07, 2021 4:11pm Start: 03-28-2013 End: 04-07-2021 take 1 tablet by mouth once daily Multivitamin With Folic Acid Discontinued 1 TABLET PO DAILY March 28, 2013 12:00am April 07, 2021 5:11pm Multivitamin With Folic Acid 1 TABLET tablet (3 sources) Start: 03-28-2013 End: 04-07-2021 take 1 tablet by mouth once daily Multivitamin With Folic Acid 1 TABLET tablet Discontinued 1 {tbl} PO DAILY March 28, 2013 12:00am April 07, 2021 5:11pm Start: 03-28-2013 End: 04-07-2021 take 1 tablet by mouth once daily Multivitamin With Folic Acid 1 TABLET tablet Discontinued 1 {tbl} PO DAILY March 27, 2013 11:00pm April 07, 2021 4:11pm 24 hr NIFEdipine 90 mg extended release oral tablet (10 sources) Dihydropyridine Calcium Channel Abdullahi Start: 03-11-2024 End: 12-16-2024 take 1 tablet by mouth once daily Nifedipine 90 mg tablet extended release Discontinued 90 mg PO DAILY March 11, 2024 12:00am December 16, 2024 1:23pm Start: 03-28-2013 End: 03-11-2024 take 3 tablets by mouth once daily Nifedipine 30 MG tablet Discontinued 90 mg PO DAILY March 28, 2013 12:00am March 11, 2024 10:59am Start: 03-28-2013 take 90 mg by mouth once daily Nifedipine Active 90 MG PO DAILY March 28, 2013 12:00am omeprazole 20 mg delayed release oral tablet (7 sources) Proton Pump Inhibitor Start: 04-07-2021 End: 11-14-2022 take 1 tablet by mouth twice daily Omeprazole Magnesium (Prilosec Otc) 20 mg tablet,delayed release (DR/EC) Discontinued 20 mg PO TWICE A DAY April 07, 2021 12:00am November 14, 2022 12:48pm ondansetron 4 mg disintegrating oral tablet (3 sources) Serotonin-3 Receptor Antagonist Start: 08-13-2024 End: 12-16-2024 take 1 tablet by mouth every four hours for nausea and vomiting Ondansetron 4 mg tablet,disintegrati ng Discontinued 4 mg PO Q4H as needed for nausea and vomiting August 13, 2024 1:00am December 16, 2024 1:23pm give 1st dose 30min before emetogenic chemo predniSONE 20 mg oral tablet (2 sources) Start: 08-17-2024 End: 11-27-2024 take 1 tablet by mouth twice daily Prednisone 20 mg tablet Discontinued 20 mg PO TWICE A DAY 10 August 17, 2024 12:00am November 27, 2024 1:44pm Problems Active Problems Problem Classification Problem Date Documented Da te Episodic/Chronic Acute myocardial infarction (9 sources) Myocardial infarction; Translations: [Myocardial infarction type 2] Onset: 5 08-13-2024 Chronic Anxiety disorders (7 sources) Anxiety disorder; Translations: [Anxiety disorder, unspecified] 07-24-2018 Chronic Asthma (10 sources) Asthma; Translations: [Unspecified asthma, uncomplicated] Chronic Chronic obstructive pulmonary disease and bronchiectasis (8 sources) Chronic obstructive lung disease; Translations: [Chronic obstructive pulmonary disease, unspecified] Onset: 5 12-22-2019 Chronic Congestive heart failure; nonhypertensive (9 sources) Acute exacerbation of chronic congestive heart failure; Translations: [Heart failure, unspecified] Onset: 5 08-13-2024 Chronic Deficiency and other anemia (7 sources) Anemia of chronic disease; Translations: [Anemia in other chronic diseases classified elsewhere] 07-24-2018 Chronic Diabetes mellitus with complications (7 sources) Type 2 diabetes mellitus in obese; Translations: [Type 2 diabetes mellitus with other specified complication] 07-24-2018 Chronic Disorders of lipid metabolism (16 sources) Hypercholesterolemia; Translations: [Pure hypercholesterolemia, unspecified] Onset: 5 07-24-2018 Chronic Diverticulosis and diverticulitis (7 sources) Diverticulitis; Translations: [Diverticulitis of intestine, part unspecified, without perforation or abscess without bleeding] 06-16-2019 Chronic Epilepsy; convulsions (8 sources) Seizure disorder; Translations: [Epilepsy, unspecified, not intractable, without status epilepticus] Onset: 5 12-16-2020 Chronic Comment on above: last seizure approx 2004 Epilepsy; convulsions (7 sources) Seizure; Translations: [Unspecified convulsions] 07-24-2018 Episodic Esophageal disorders (7 sources) Gastroesophageal reflux disease; Translations: [Gastro-esophageal reflux disease without esophagitis] 07-24-2018 Chronic Essential hypertension (16 sources) Benign essential hypertension; Translations: [Essential (primary) hypertension] Onset: 5 07-24-2018 Chronic Fluid and electrolyte disorders (3 sources) Lactic acidosis; Translations: [Lactic acidosis] 08-13-2024 Episodic Glaucoma (7 sources) Glaucoma; Translations: [Unspecified glaucoma] 07-24-2018 Chronic Malaise and fatigue (1 source) Other fatigue; Translations: [Other fatigue] Onset: 5 Episodic Mood disorders (7 sources) Depressive disorder; Translations: [Depression] 07-24-2018 Chronic Osteoarthritis (7 sources) Osteoarthritis; Translations: [Unspecified osteoarthritis, unspecified site] 07-24-2018 Chronic Other aftercare (2 sources) Other intermodal customer service (current) drug therapy; Translations: [Other fdc (current) drug therapy] Onset: 5 Episodic Other circulatory disease (7 sources) History of cerebrovascular accident; Translations: [Personal history of transient ischemic attack (TIA), and cerebral infarction without residual deficits] 06-16-2019 Episodic Other connective tissue disease (7 sources) History of total knee arthroplasty; Translations: [Presence of unspecified artificial knee joint] 07-24-2018 Chronic Other diseases of kidney and ureters (3 sources) Acute renal insufficiency; Translations: [Disorder of kidney and ureter, unspecified] 03-11-2024 Episodic Other diseases of veins and lymphatics (7 sources) Peripheral venous insufficiency; Translations: [Venous insufficiency (chronic) (peripheral)] 07-24-2018 Episodic Other gastrointestinal disorders (3 sources) Dysphagia; Translations: [Dysphagia, unspecified] 03-11-2024 Episodic Other lower respiratory disease (3 sources) Wheezing; Translations: [Wheezing] 08-15-2024 Episodic Other nervous system disorders (3 sources) Disorder of brain; Translations: [Encephalopathy, unspecified] 03-11-2024 Chronic Other nervous system disorders (1 source) Encephalopathy, unspecified; Translations: [Encephalopathy, unspecified] Onset: 4 Chronic Other nutritional; endocrine; and metabolic disorders (10 sources) Morbid obesity; Translations: [Morbid (severe) obesity due to excess calories] 07-24-2018 Chronic Other nutritional; endocrine; and metabolic disorders (1 source) Obesity, unspecified; Translations: [Obesity, unspecified] Onset: 5 Chronic Other upper respiratory disease (7 sources) Allergic rhinitis; Translations: [Allergic rhinitis, unspecified] 07-24-2018 Chronic Residual codes; unclassified (7 sources) Obstructive sleep apnea syndrome; Translations: [Obstructive sleep apnea (adult) (pediatric)] 12-18-2018 Chronic Residual codes; unclassified (7 sources) Sleep apnea; Translations: [Sleep apnea, unspecified] 12-22-2019 Chronic Residual codes; unclassified (3 sources) Obstructive sleep apnea (adult) (pediatric); Translations: [Obstructive sleep apnea (adult)(pediatric)] Chronic Residual codes; unclassified (2 sources) Altered mental status, unspecified; Translations: [Altered mental status, unspecified] Onset: 4 Episodic Respiratory failure; insufficiency; arrest (adult) (7 sources) Acute respiratory failure; Translations: [Acute respiratory failure with hypoxia] Onset: 5 08-13-2024 Episodic Rheumatoid arthritis and related disease (7 sources) Rheumatoid arthritis; Translations: [Rheumatoid arthritis, unspecified] 06-16-2019 Chronic Schizophrenia and other psychotic disorders (9 sources) Schizophrenia; Translations: [Schizophrenia, unspecified] Chronic Skin and subcutaneous tissue infections (7 sources) Abscess of neck; Translations: [Cutaneous abscess of neck] 04-07-2021 Episodic Thyroid disorders (8 sources) Hypothyroidism; Translations: [Hypothyroidism, unspecified] Onset: 5 07-24-2018 Chronic Thyroid disorders (7 sources) Disorder of thyroid gland; Translations: [Disorder of thyroid, unspecified] 06-16-2019 Episodic Transient cerebral ischemia (7 sources) Transient cerebral ischemia; Translations: [Transient cerebral ischemic attack, unspecified] 07-24-2018 Chronic Urinary tract infections (15 sources) Urinary tract infectious disease; Translations: [Urinary tract infection, site not specified] Onset: 5 07-02-2021 Episodic Viral infection (3 sources) Disease caused by 2019-nCoV; Translations: [COVID-19] 03-11-2024 Episodic Viral infection (2 sources) COVID-19; Translations: [COVID-19] Onset: 4 Past or Other Problems Problem Classification Problem Date Documented Da te Episodic/Chronic Other lower respiratory disease (1 source) Wheezing; Translations: [Wheezing] Onset: 08-23-2024 Episodic Septicemia (except in labor) (8 sources) Septic shock; Translations: [Sepsis, unspecified organism] Onset: 08-23-2024 08-13-2024 Episodic Shock (1 source) Severe sepsis with septic shock; Translations: [Severe sepsis with septic shock] Onset: 08-23-2024 Episodic Unclassified (7 sources) Vericose veins 12-27-2021 Results Test Name Value Interpretation Reference Range Facility Urine Cultureon 01-30-2025 [facility] Mixed Gram Pos Gram Neg Org [place] Count 25,000-50,000 [facility] Mixed contaminants. Submit a new specimen if indicated. Normal [facility] Comment on above: Performed By: #### L 400. ####[facility] [id number] [place], [place], [id number] Urinalysis, Routine (Dipstic k)on 01-28-2025 BILIRUBIN URINE Negative Normal Negative [facility] Comment on above: Order Comment: CLEAN CATCH Performed By: #### L 400. ####[facility] [id number] [place], [address] Clarity (U) Clear Normal Clear [facility] Comment on above: Order Comment: CLEAN CATCH Performed By: #### L [id number], ####[facility] [id number] [place], [address] Color (U) Yellow Normal Yellow [facility] Comment on above: Order Comment: CLEAN CATCH Performed By: #### L [id number], ####[facility] [id number] [place], [address] GLUCOSE, UR Normal Normal Normal [facility] Comment on above: Order Comment: CLEAN CATCH Performed By: #### L [id number], ####[facility] [id number] [place], [address] KETONE UR Negative Normal Negative [facility] Comment on above: Order Comment: CLEAN CATCH Performed By: #### L [id number], ####[facility] [id number] [place], [address] LEUK ESTERASE Negative Normal Negative [facility] Comment on above: Order Comment: CLEAN CATCH Performed By: #### L [id number], ####[facility] [id number] [place], [address] Nitrite Ql (U) Negative Normal Negative [facility] Comment on above: Order Comment: CLEAN CATCH Performed By: #### L 400.2010, ####[facility] [id number] [place], [address] OCCULT BLOOD-UR Negative Normal Negative [facility] Comment on above: Order Comment: CLEAN CATCH Performed By: #### L 400.2010, ####[facility] [address] [place], [address] pH UR 7.0 Normal 5.0 - 8.0 [facility] Comment on above: Order Comment: CLEAN CATCH Performed By: #### L 400.2010, ####[facility] [address] [place], [address] PROT DIPSTX Negative Normal Negative [facility] Comment on above: Order Comment: CLEAN CATCH Performed By: #### L 400.2010, ####[facility] [address] [place], [address] SP.GR. DIPSTX 1.005 Normal 1.002-1.030 [facility] Comment on above: Order Comment: CLEAN CATCH Performed By: #### L 400.2010, ####[facility] [address] [place], [address] UROBILI Normal Normal Normal [facility] Comment on above: Order Comment: CLEAN CATCH Performed By: #### L 400.2010, ####[facility] [address] [place], [address] Urine Cultureon 01-23-2025 URC Below infection leve l. Mixed Gram Positive Organisms [place] Count 1000-10,000 MIXC Mixed contaminants. Submit a new specimen if indicated. Normal [facility] Comment on above: Performed By: #### L 400.8999, ####[facility] [address] [place], [address] Urinalysis, Completeon 01-21 BACTERIA 0 SEEN Normal None Seen [facility] Comment on above: Order Comment: CLEAN CATCH Performed By: #### L 400.8999, ####[facility] [address] [place], [address] EPI,SQUAMOUS 0 SEEN Normal 5-10 [facility] Comment on above: Order Comment: CLEAN CATCH Performed By: #### L 400.0001, ####[facility] [address] [place], [address] Mucus Ql (Urine sed) 0 SEEN Normal [facility] Comment on above: Order Comment: CLEAN CATCH Performed By: #### L 400.0001, M100.2200 ####[facility] [address] [place], [address] RBC 0 SEEN Normal 0-5 [facility] Comment on above: Order Comment: CLEAN CATCH Performed By: #### L 400.0001, M100.2200 ####[facility] [address] [place], [address] WBC 0 SEEN Normal 0-5 [facility] Comment on above: Order Comment: CLEAN CATCH Performed By: #### L 400.0001, M100.0 ####[facility] [address] [place], [address] Urine Cultureon 01-14-2025 URC Normal [facility] Comment on above: Performed By: #### L 400.0001, .0 ####[facility] [address] [place], [address] Urinalysis, Completeon 01-11 BACTERIA 1+ /hpf Normal None Seen [facility] Comment on above: Order Comment: CLEAN CATCH Performed By: #### L 400.0001, M100.2200 ####[facility] [address] [place], [address] EPI,SQUAMOUS 0-5 SEEN Normal 5-10 [facility] Comment on above: Order Comment: CLEAN CATCH Performed By: #### L 400.0001, M100.0 ####[facility] [address] [place], [address] WBC 25-50 SEEN Normal 0-5 [facility] Comment on above: Order Comment: CLEAN CATCH Performed By: #### L 400.0001, M100.2200 ####[facility] [address] [place], [address] Mucus Ql (Urine sed) 0 SEEN Normal [facility] Comment on above: Order Comment: CLEAN CATCH Performed By: #### L 400.0001, M100.2200 ####[facility] [address] [place], [address] RBC 0 SEEN Normal 0-5 [facility] Comment on above: Order Comment: CLEAN CATCH Performed By: #### L 400.0001, M100.2200 ####[facility] [address] [place], [address] L3700.3000on 01-06-2025 PHENobarbital [Mass/Vol] 32 ug/mL Normal 15-40 [facility] Comment on above: Order Comment: 104.2 Result Comment: Dete ction Limit = 3Performed at: CB - [facility] [address] [id number] Director: Jose Vicente PhD, Phone: [phone] Performed By: #### L 100.0500, L500.2500, L500.4100, L3700.3000, L501.9520 ####[facility] [address] [place], [address] Basic Metabolic Profile (BMP )on 01-05-2025 BUN/CRE 27.4 RATIO High 10-20 [facility] Comment on above: Order Comment: 104.2 Performed By: #### L 100.0500, L500.2500, L500.4100, L3700.3000, L501.9520 ####[facility] [address] [place], [address] Calcium [Mass/Vol] 9.8 mg/dL Normal 7.6-11.0 [facility] [place] Comment on above: Order Comment: 104.2 Performed By: #### L 100.0500, L500.2500, L500.4100, L3700.3000, L501.9520 ####[facility] [address] [place], [address] Chloride [Moles/Vol] 98 mmol/L Normal 98-108 [facility] Comment on above: Order Comment: 104.2 Performed By: #### L 100.0500, L500.2500, L500.4100, L3700.3000, L501.9520 ####[facility] [address] [place], [address] CO2 [Moles/Vol] 28.6 mmol/L Normal 21.0-32.0 [facility] Comment on above: Order Comment: 104.2 Performed By: #### L 100.0500, L500.2500, L500.4100, L3700.3000, L501.9520 ####[facility] [address] [place], [address] Creatinine [Mass/Vol] 1.36 mg/dL High 0.70-1.20 [facility] Comment on above: Order Comment: 104.2 Performed By: #### L 100.0500, L500.2500, L500.4100, L3700.3000, L501.9520 ####[facility] [address] [place], [address] GAP 12 Normal 5-15 [facility] Comment on above: Order Comment: 104.2 Performed By: #### L 100.0500, L500.2500, L500.4100, L3700.3000, L501.9520 ####[facility] [address] [place], [address] GFR/1.73 sq M.predicted among non-blacks MDRD (S/P/Bld) [Vol rate/Area] 41 mL/min/{1.73_m2} Low >60 [facility] Comment on above: Order Comment: 104.2 Result Comment: mL/m in/1.73m2 CKD-EPI Creatinine Equation (2020) Performed By: #### L 100.0500, L500.2500, L500.4100, L3700.3000, L501.9520 ####[facility] [address] [place], [address] Glucose [Mass/Vol] 95 mg/dL Normal 70-99 [facility] [place] Comment on above: Order Comment: 104.2 Performed By: #### L 100.0500, L500.2500, L500.4100, L3700.3000, L501.9520 ####[facility] [address] [place], [address] Potassium [Moles/Vol] 3.9 mmol/L Normal 3.3-5.1 [facility] Comment on above: Order Comment: 104.2 Performed By: #### L 100.0500, L500.2500, L500.4100, L3700.3000, L501.9520 ####[facility] [address] [place], [address] Sodium [Moles/Vol] 139 mmol/L Normal 133-145 [facility] [place] Comment on above: Order Comment: 104.2 Performed By: #### L 100.0500, L500.2500, L500.4100, L3700.3000, L501.9520 ####[facility] [address] [place], [address] Urea nitrogen [Mass/Vol] 37 mg/dL High 4-19 [facility] Comment on above: Order Comment: 104.2 Performed By: #### L 100.0500, L500.2500, L500.4100, L3700.3000, L501.9520 ####[facility] [address] [place], [address] CBC-Complete Blood Cnt No Di ffon 01-05-2025 Erythrocyte distribution width (RBC) [Ratio] 15.8 % High 11.6-14.6 [facility] Comment on above: Order Comment: 104.2 Performed By: #### L 100.0500, L500.2500, L500.4100, L3700.3000, L501.9520 ####[facility] [address] [place], [address] Hematocrit (Bld) [Volume fraction] 30.9 % Low 37-47 [facility] Comment on above: Order Comment: 104.2 Performed By: #### L 100.0500, L500.2500, L500.4100, L3700.3000, L501.9520 ####[facility] [address] [place], [address] Hemoglobin (Bld) [Mass/Vol] 10.2 g/dL Low 12.0-15.0 [facility] Comment on above: Order Comment: 104.2 Performed By: #### L 100.0500, L500.2500, L500.4100, L3700.3000, L501.9520 ####[facility] [address] [place], [address] MCH (RBC) [Entitic mass] 32.6 pg High 27.0-32.0 [facility] Comment on above: Order Comment: 104.2 Performed By: #### L 100.0500, L500.2500, L500.4100, L3700.3000, L501.9520 ####[facility] [address] [place], [address] MCHC (RBC) [Mass/Vol] 33.0 g/dL Normal 32-36 [facility] Comment on above: Order Comment: 104.2 Performed By: #### L 100.0500, L500.2500, L500.4100, L3700.3000, L501.9520 ####[facility] [address] [place], [address] MCV (RBC) [Entitic vol] 98.7 fL Normal 81-99 [facility] Comment on above: Order Comment: 104.2 Performed By: #### L 100.0500, L500.2500, L500.4100, L3700.3000, L501.9520 ####[facility] [address] [place], [address] Platelet mean volume (Bld) [Entitic vol] 10.9 fL Normal 6.2-12.0 [facility] Comment on above: Order Comment: 104.2 Performed By: #### L 100.0500, L500.2500, L500.4100, L3700.3000, L501.9520 ####[facility] [address] [place], [address] Platelets (Bld) [#/Vol] 164 10*3/uL Normal 150-450 [facility] Comment on above: Order Comment: 104.2 Performed By: #### L 100.0500, L500.2500, L500.4100, L3700.3000, L501.9520 ####[facility] [address] [place], [address] RBC (Bld) [#/Vol] 3.13 10*6/uL Low 4.2-5.[address] [facility] Comment on above: Order Comment: 104.2 Performed By: #### L 100.0500, L500.2500, L500.4100, L3700.3000, L501.9520 ####[facility] [address] [place], [address] RDW SD 57.1 fl High 35.1-43.9 [facility] Comment on above: Order Comment: 104.2 Performed By: #### L 100.0500, L500.2500, L500.4100, L3700.3000, L501.9520 ####[facility] [address] [place], [address] WBC (Bld) [#/Vol] 6.9 10*3/uL Normal 4.4-11.0 [facility] Comment on above: Order Comment: 104.2 Performed By: #### L 100.0500, L500.2500, L500.4100, L3700.3000, L501.9520 ####[facility] [address] [place], [address] Lipid Profileon 01-05-2025 CHOL:HDL 2.07 Normal [facility] Comment on above: Order Comment: 104.2 Performed By: #### L 100.0500, L500.2500, L500.4100, L3700.3000, L501.9520 ####[facility] [address] [place], [address] Cholesterol [Mass/Vol] 217 mg/dL High <=200 [facility] Comment on above: Order Comment: 104.2 Result Comment: Chol esterol level, Desirable <200 mg/dLBorderline high cholesterol 200-239 mg/dLHigh cholesterol >=240 mg/dLRecommendations of the NCEP Adult Treatment Panel for thefollowing risk-cutoff thresholds for the [place] [facility]. Performed By: #### L 100.0500, L500.2500, L500.4100, L3700.3000, L501.9520 ####[facility] [address] [place], [address] Cholesterol in HDL [Mass/Vol] 105 mg/dL Normal [facility] Comment on above: Order Comment: 104.2 Result Comment: Mi onal Cholesterol Education Program (NCEP) guidelines:<40 mg/dL: Low HDL-cholesterol (major risk factor for CHD)>= 60 mg/dL: High HDL-cholesterol (negative risk factor forCHD)HDL-cholesterol is affected by a number of factors, e.g.smoking, exercise, hormones, sex and age. Performed By: #### L 100.0500, L500.2500, L500.4100, L3700.3000, L501.9520 ####[facility] [address] [place], [address] Cholesterol in LDL [Mass/Vol] 101 mg/dL Normal [facility] Comment on above: Order Comment: 104.2 Result Comment: Bord mcjexl=887-131 mg/dL Higher Mono=021 mg/dL or greaterFriedwald Equation for LDL-C Performed By: #### L 100.0500, L500.2500, L500.4100, L3700.3000, L501.9520 ####[facility] [address] [place], [address] Cholesterol in VLDL [Mass/Vol] 11 mg/dL Normal 5-40 [facility] Comment on above: Order Comment: 104.2 Performed By: #### L 100.0500, L500.2500, L500.4100, L3700.3000, L501.9520 ####[facility] [address] [place], [address] Triglyceride [Mass/Vol] 54 mg/dL Normal [facility] Comment on above: Order Comment: 104.2 Result Comment: The drugs N-Acetylcysteine and Metamizole may falselydepress this assay.Normal range: <150 mg/dLBorderline High: 150-199 mg/dLHigh: 200-499 mg/dLVery High: >500 mg/dL Performed By: #### L 100.0500, L500.2500, L500.4100, L3700.3000, L501.9520 ####[facility] [address] [place], [address] Thyroid Stim Hormone (TSH)on 01-05-2025 TSH 3.110 uIU/mL Normal 0.300-4.200 [facility] Comment on above: Order Comment: 104.2 Performed By: #### L 100.0500, L500.2500, L500.4100, L3700.3000, L501.9520 ####[facility] [address] [place], [address] L3700.3000on 12-29-2024 PHENobarbital [Mass/Vol] 37 ug/mL Normal 15-40 [facility] Comment on above: Order Comment: 104.2 Result Comment: Dete ction Limit = 3Performed at: [address], [place], [place] [id number] Director: Jose Vicente PhD, Phone: [phone] Performed By: #### L 500.4100, L3700.3000, L501.9520, L500.2500, L100.0500 ####[facility] [address] [place], [address] Basic Metabolic Profile (BMP )on 12-28-2024 BUN/CRE 30.1 RATIO High 10-20 [facility] Comment on above: Order Comment: 104.2 Performed By: #### L 500.4100, L3700.3000, L501.9520, L500.2500, L100.0500 ####[facility] [address] [place], [address] Calcium [Mass/Vol] 9.6 mg/dL Normal 7.6-11.0 [facility] Comment on above: Order Comment: 104.2 Performed By: #### L 500.4100, L3700.3000, L501.9520, L500.2500, L100.0500 ####[facility] [address] [place], [address] Chloride [Moles/Vol] 100 mmol/L Normal 98-108 [facility] Comment on above: Order Comment: 104.2 Performed By: #### L 500.4100, L3700.3000, L501.9520, L500.2500, L100.0500 ####[facility] [address] [place], [address] CO2 [Moles/Vol] 28.2 mmol/L Normal 21.0-32.0 [facility] Comment on above: Order Comment: 104.2 Performed By: #### L 500.4100, L3700.3000, L501.9520, L500.2500, L100.0500 ####[facility] [address] [place], [address] Creatinine [Mass/Vol] 1.15 mg/dL Normal 0.70-1.20 [facility] Comment on above: Order Comment: 104.2 Performed By: #### L 500.4100, L3700.3000, L501.9520, L500.2500, L100.0500 ####[facility] [address] [place], [address] GAP 11 Normal 5-15 [facility] Comment on above: Order Comment: 104.2 Performed By: #### L 500.4100, L3700.3000, L501.9520, L500.2500, L100.0500 ####[facility] [address] [place], [address] GFR/1.73 sq M.predicted among non-blacks MDRD (S/P/Bld) [Vol rate/Area] 50 mL/min/{1.73_m2} Low >60 [facility] Comment on above: Order Comment: 104.2 Result Comment: mL/m in/1.73m2 CKD-EPI Creatinine Equation (2020) Performed By: #### L 500.4100, L3700.3000, L501.9520, L500.2500, L100.0500 ####[facility] [address] [place], [address] Glucose [Mass/Vol] 81 mg/dL Normal 70-99 [facility] Comment on above: Order Comment: 104.2 Performed By: #### L 500.4100, L3700.3000, L501.9520, L500.2500, L100.0500 ####[facility] [address] [place], [address] Potassium [Moles/Vol] 4.3 mmol/L Normal 3.3-5.1 [facility] Comment on above: Order Comment: 104.2 Performed By: #### L 500.4100, L3700.3000, L501.9520, L500.2500, L100.0500 ####[facility] [address] [place], [address] Sodium [Moles/Vol] 139 mmol/L Normal 133-145 [facility] Comment on above: Order Comment: 104.2 Performed By: #### L 500.4100, L3700.3000, L501.9520, L500.2500, L100.0500 ####[facility] [address] [place], [address] Urea nitrogen [Mass/Vol] 35 mg/dL High 4-19 [facility] Comment on above: Order Comment: 104.2 Performed By: #### L 500.4100, L3700.3000, L501.9520, L500.2500, L100.0500 ####[facility] [address] [place], [address] CBC-Complete Blood [facility]nt [facility] Erythrocyte distribution width (RBC) [Ratio] 16.1 % High 11.6-14.6 [facility] Comment on above: Order Comment: 104.2 Performed By: #### L 500.4100, L3700.3000, L501.9520, L500.2500, L100.0500 ####[facility] [address] [place], [address] Hematocrit (Bld) [Volume fraction] 30.0 % Low 37-47 [facility] Comment on above: Order Comment: 104.2 Performed By: #### L 500.4100, L3700.3000, L501.9520, L500.2500, L100.0500 ####[facility] [address] [place], [address] Hemoglobin (Bld) [Mass/Vol] 9.9 g/dL Low 12.0-15.0 [facility] Comment on above: Order Comment: 104.2 Performed By: #### L 500.4100, L3700.3000, L501.9520, L500.2500, L100.0500 ####[facility] [address] [place], [address] MCH (RBC) [Entitic mass] 33.2 pg High 27.0-32.0 [facility] Comment on above: Order Comment: 104.2 Performed By: #### L 500.4100, L3700.3000, L501.9520, L500.2500, L100.0500 ####[facility] [address] [place], [address] MCHC (RBC) [Mass/Vol] 33.0 g/dL Normal 32-36 [facility] Comment on above: Order Comment: 104.2 Performed By: #### L 500.4100, L3700.3000, L501.9520, L500.2500, L100.0500 ####[facility] [address] [place], [address] MCV (RBC) [Entitic vol] 100.7 fL High 81-99 [facility] Comment on above: Order Comment: 104.2 Performed By: #### L 500.4100, L3700.3000, L501.9520, L500.2500, L100.0500 ####[facility] [address] [place], [address] Platelet mean volume (Bld) [Entitic vol] 11.0 fL Normal 6.2-12.0 [facility] Comment on above: Order Comment: 104.2 Performed By: #### L 500.4100, L3700.3000, L501.9520, L500.2500, L100.0500 ####[facility] [address] [place], [address] Platelets (Bld) [#/Vol] 141 10*3/uL Low 150-450 [facility] Comment on above: Order Comment: 104.2 Performed By: #### L 500.4100, L3700.3000, L501.9520, L500.2500, L100.0500 ####[facility] [address] [place], [address] RBC (Bld) [#/Vol] 2.98 10*6/uL Low 4.2-5.[address] [facility] Comment on above: Order Comment: 104.2 Performed By: #### L 500.4100, L3700.3000, L501.9520, L500.2500, L100.0500 ####[facility] [address] [place], [address] RDW SD 60.0 fl High 35.1-43.9 [facility] Comment on above: Order Comment: 104.2 Performed By: #### L 500.4100, L3700.3000, L501.9520, L500.2500, L100.0500 ####[facility] [address] [place], [address] WBC (Bld) [#/Vol] 4.6 10*3/uL Normal 4.4-11.0 [facility] Comment on above: Order Comment: 104.2 Performed By: #### L 500.4100, L3700.3000, L501.9520, L500.2500, L100.0500 ####[facility] [address] [place], [address] Lipid Profileon 12-28-2024 CHOL:HDL 2.10 Normal [facility] Comment on above: Order Comment: 104.2 Performed By: #### L 500.4100, L3700.3000, L501.9520, L500.2500, L100.0500 ####[facility] [address] [place], [address] Cholesterol [Mass/Vol] 212 mg/dL High <=200 [facility] Comment on above: Order Comment: 104.2 Result Comment: Chol esterol level, Desirable <200 mg/dLBorderline high cholesterol 200-239 mg/dLHigh cholesterol >=240 mg/dLRecommendations of the NCEP Adult Treatment Panel for thefollowing risk-cutoff thresholds for the [place] Americanpulation. Performed By: #### L 500.4100, L3700.3000, L501.9520, L500.2500, L100.0500 ####[facility] [address] [place], [address] Cholesterol in HDL [Mass/Vol] 101 mg/dL Normal [facility] Comment on above: Order Comment: 104.2 Result Comment: Mi onal Cholesterol Education Program (NCEP) guidelines:<40 mg/dL: Low HDL-cholesterol (major risk factor for CHD)>= 60 mg/dL: High HDL-cholesterol (negative risk factor forCHD)HDL-cholesterol is affected by a number of factors, e.g.smoking, exercise, hormones, sex and age. Performed By: #### L 500.4100, L3700.3000, L501.9520, L500.2500, L100.0500 ####[facility] [address] [place], [address] Cholesterol in LDL [Mass/Vol] 97 mg/dL Normal [facility] Comment on above: Order Comment: 104.2 Result Comment: Bord tipngo=726-074 mg/dL Higher Vswf=214 mg/dL or greater Performed By: #### L 500.4100, L3700.3000, L501.9520, L500.2500, L100.0500 ####[facility] [address] [place], [address] Cholesterol in VLDL [Mass/Vol] 14 mg/dL Normal 5-40 [facility] Comment on above: Order Comment: 104.2 Performed By: #### L 500.4100, L3700.3000, L501.9520, L500.2500, L100.0500 ####[facility] [address] [place], [address] Triglyceride [Mass/Vol] 70 mg/dL Normal [facility] Comment on above: Order Comment: 104.2 Result Comment: The drugs N-Acetylcysteine and Metamizole may falselydepress this assay.Normal range: <150 mg/dLBorderline High: 150-199 mg/dLHigh: 200-499 mg/dLVery High: >500 mg/dL Performed By: #### L 500.4100, L3700.3000, L501.9520, L500.2500, L100.0500 ####[facility] [address] [place], [place], [address] Thyroid Stim Hormone (TSH)on 12-28-2024 TSH 3.650 uIU/mL Normal 0.300-4.200 [facility] Comment on above: Order Comment: 104.2 Performed By: #### L 500.4100, L3700.3000, L501.9520, L500.2500, L100.0500 ####[facility] [address] [place], [place], [address] Pulmonary Visit Reporton Pulmonary Visit Report Normal [facility] L3700.3000on 12-09-2024 PHENobarbital [Mass/Vol] 46 ug/mL Abnormal 15-40 [facility] Comment on above: Order Comment: 104.2 Result Comment: Dete ction Limit = 3Patient drug level exceeds published reference range.Evaluate clinically for signs of potential toxicity.Performed at: [address] [id number] Director: Jose Vicente PhD, Phone: [phone] Performed By: #### L 500.2500, L3700.3000, L501.9520, L100.0500, L500.4100 ####[facility] [address] [place], [place], [id number] Anion gap in Serum or Plasma Ordered By: Panda Littlejohn on 12-08-2024 Anion gap [Moles/Vol] 12 mmol/L 5-15 [facility] BUN/creatinine ratioOrdered By: Panda Littlejohn on 12-08-2024 Urea nitrogen/Creatinine [Mass ratio] 33.3 mg/mg High 10-20 [facility] Basic Metabolic Profile (BMP )on 12-08-2024 BUN/CRE 33.3 RATIO High [facility]20 [facility] Comment on above: Order Comment: 104.2 Performed By: #### L 500.2500, L3700.3000, L501.9520, L100.0500, L500.4100 ####[facility] [address] [place], [address] Calcium [Mass/Vol] 9.2 mg/dL Normal 7.6-11.0 [facility] [place] Comment on above: Order Comment: 104.2 Performed By: #### L 500.2500, L3700.3000, L501.9520, L100.0500, L500.4100 ####[facility] [address] [place], [address] Chloride [Moles/Vol] 100 mmol/L Normal 98-108 [facility] Comment on above: Order Comment: 104.2 Performed By: #### L 500.2500, L3700.3000, L501.9520, L100.0500, L500.4100 ####[facility] [address] [place], [address] CO2 [Moles/Vol] 28.6 mmol/L Normal 21.0-32.0 [facility] Comment on above: Order Comment: 104.2 Performed By: #### L 500.2500, L3700.3000, L501.9520, L100.0500, L500.4100 ####[facility] [address] [place], [address] Creatinine [Mass/Vol] 1.28 mg/dL High 0.70-1.20 [facility] Comment on above: Order Comment: 104.2 Performed By: #### L 500.2500, L3700.3000, L501.9520, L100.0500, L500.4100 ####[facility] [address] [place], [address] GAP 12 Normal 5-15 [facility] Comment on above: Order Comment: 104.2 Performed By: #### L 500.2500, L3700.3000, L501.9520, L100.0500, L500.4100 ####[facility] [address] [place], [address] GFR/1.73 sq M.predicted among non-blacks MDRD (S/P/Bld) [Vol rate/Area] 44 mL/min/{1.73_m2} Low >60 [facility] Comment on above: Order Comment: 104.2 Result Comment: mL/m in/1.73m2 CKD-EPI Creatinine Equation (2020) Performed By: #### L 500.2500, L3700.3000, L501.9520, L100.0500, L500.4100 ####[facility] [address] [place], [address] Glucose [Mass/Vol] 81 mg/dL Normal 70-99 [facility] [place] Comment on above: Order Comment: 104.2 Performed By: #### L 500.2500, L3700.3000, L501.9520, L100.0500, L500.4100 ####[facility] [address] [place], [address] Potassium [Moles/Vol] 3.8 mmol/L Normal 3.3-5.1 [facility] Comment on above: Order Comment: 104.2 Performed By: #### L 500.2500, L3700.3000, L501.9520, L100.0500, L500.4100 ####[facility] [address] [place], [address] Sodium [Moles/Vol] 140 mmol/L Normal 133-145 [facility] [place] Comment on above: Order Comment: 104.2 Performed By: #### L 500.2500, L3700.3000, L501.9520, L100.0500, L500.4100 ####[facility] [address] [place], [address] Urea nitrogen [Mass/Vol] 43 mg/dL High 4-19 [facility] Comment on above: Order Comment: 104.2 Performed By: #### L 500.2500, L3700.3000, L501.9520, L100.0500, L500.4100 ####[facility] [address] [place], [address] CBC-Complete Blood Cnt No Di ffon 12-08-2024 Erythrocyte distribution width (RBC) [Ratio] 16.9 % High 11.6-14.6 [facility] Comment on above: Order Comment: 104.2 Performed By: #### L 500.2500, L3700.3000, L501.9520, L100.0500, L500.4100 ####[facility] [address] [place], [address] Hematocrit (Bld) [Volume fraction] 30.4 % Low 37-47 [facility] Comment on above: Order Comment: 104.2 Performed By: #### L 500.2500, L3700.3000, L501.9520, L100.0500, L500.4100 ####[facility] [address] [place], [address] Hemoglobin (Bld) [Mass/Vol] 9.9 g/dL Low 12.0-15.0 [facility] Comment on above: Order Comment: 104.2 Performed By: #### L 500.2500, L3700.3000, L501.9520, L100.0500, L500.4100 ####[facility] [address] [place], [address] MCH (RBC) [Entitic mass] 32.9 pg High 27.0-32.0 [facility] Comment on above: Order Comment: 104.2 Performed By: #### L 500.2500, L3700.3000, L501.9520, L100.0500, L500.4100 ####[facility] [address] [place], [address] MCHC (RBC) [Mass/Vol] 32.6 g/dL Normal 32-36 [facility] Comment on above: Order Comment: 104.2 Performed By: #### L 500.2500, L3700.3000, L501.9520, L100.0500, L500.4100 ####[facility] [address] [place], [address] MCV (RBC) [Entitic vol] 101.0 fL High 81-99 [facility] Comment on above: Order Comment: 104.2 Performed By: #### L 500.2500, L3700.3000, L501.9520, L100.0500, L500.4100 ####[facility] [address] [place], [address] Platelet mean volume (Bld) [Entitic vol] 10.7 fL Normal 6.2-12.0 [facility] Comment on above: Order Comment: 104.2 Performed By: #### L 500.2500, L3700.3000, L501.9520, L100.0500, L500.4100 ####[facility] [address] [place], [address] Platelets (Bld) [#/Vol] 206 10*3/uL Normal 150-450 [facility] Comment on above: Order Comment: 104.2 Performed By: #### L 500.2500, L3700.3000, L501.9520, L100.0500, L500.4100 ####[facility] [address] [place], [address] RBC (Bld) [#/Vol] 3.01 10*6/uL Low 4.2-5.[address] [facility] Comment on above: Order Comment: 104.2 Performed By: #### L 500.2500, L3700.3000, L501.9520, L100.0500, L500.4100 ####[facility] [address], [address] RDW SD 62.8 fl High 35.1-43.9 [facility] Comment on above: Order Comment: 104.2 Performed By: #### L 500.2500, L3700.3000, L501.9520, L100.0500, L500.4100 ####[facility] [address], [address] WBC (Bld) [#/Vol] 4.2 10*3/uL Low 4.4-11.0 [facility] [place] Comment on above: Order Comment: 104.2 Performed By: #### L 500.2500, L3700.3000, L501.9520, L100.0500, L500.4100 ####[facility] [address] [facility] [place], [address] Calculated very low density lipoprotein (VLDL) cholesterol measurementOrdered By: Panda Littlejohn on 12-08-2024 Calculated very low density lipoprotein (VLDL) cholesterol measurement 15 mg/dL 5-40 [facility] Carbon dioxide, total [Moles /volume] in Central venous bloodOrdered By: Panda Littlejohn on 12-08-2024 CO2 [Moles/Vol] 28.6 mmol/L 21.0-32.0 [facility] Chloride assayOrdered By: Stormy Littlejohn on 12-08-2024 Chloride [Moles/Vol] 100 mmol/L 98-108 [facility] Erythrocyte distribution wid th ratioOrdered By: Panda Littlejohn on 12-08-2024 Erythrocyte distribution width (RBC) [Ratio] 16.9 % High 11.6-14.6 [facility] Erythrocyte distribution wid th standard deviationOrdered By: Panda Littlejohn on 12-08-2024 Erythrocyte distribution width (RBC) [Ratio] 62.8 fl High 35.1-43.9 [facility] Glomerular filtration rate ( GFR) estimation/1.73 sq m using serum, plasma, or whole bOrdered By: Panda Littlejohn on 12-08-2024 GFR/1.73 sq M.predicted among non-blacks MDRD (S/P/Bld) [Vol rate/Area] 44 mL/min/{1.73_m2} Low >60 [facility] Comment on above: mL/min/1.73m2 CKD-EP I Creatinine Equation (2020) Hematocrit Auto (Bld) [Volum e fraction]Ordered By: Panda Littlejohn on 12-08-2024 Hematocrit (Bld) [Volume fraction] 30.4 % Low 37-47 [facility] Hemoglobin measurementOrdere d By: Panda Littlejohn on 12-08-2024 Hemoglobin (Bld) [Mass/Vol] 9.9 g/dL Low 12.0-15.0 [facility] LDL calc ser/plasOrdered By: Panda Littlejohn on 12-08-2024 Cholesterol in LDL [Mass/Vol] 99 mg/dL [facility] Comment on above: Dhffpewcqo=226-943 m g/dL & Higher Qxpu=742 mg/dL or greater Lipid Profileon 12-08-2024 CHOL:HDL 2.19 Normal [facility] Comment on above: Order Comment: 104.2 Performed By: #### L 500.2500, L3700.3000, L501.9520, L100.0500, L500.4100 ####[facility] [address] [place], [address] Cholesterol [Mass/Vol] 210 mg/dL High <=200 [facility] Comment on above: Order Comment: 104.2 Result Comment: Chol esterol level, Desirable <200 mg/dLBorderline high cholesterol 200-239 mg/dLHigh cholesterol >=240 mg/dLRecommendations of the NCEP Adult Treatment Panel for thefollowing risk-cutoff thresholds for the [place] Americanpopulation. Performed By: #### L 500.2500, L3700.3000, L501.9520, L100.0500, L500.4100 ####[facility] [address] [place], [address] Cholesterol in HDL [Mass/Vol] 96 mg/dL Normal [facility] Comment on above: Order Comment: 104.2 Result Comment: Mi onal Cholesterol Education Program (NCEP) guidelines:<40 mg/dL: Low HDL-cholesterol (major risk factor for CHD)>= 60 mg/dL: High HDL-cholesterol (negative risk factor forCHD)HDL-cholesterol is affected by a number of factors, e.g.smoking, exercise, hormones, sex and age. Performed By: #### L 500.2500, L3700.3000, L501.9520, L100.0500, L500.4100 ####[facility] [address] [place], [address] Cholesterol in LDL [Mass/Vol] 99 mg/dL Normal [facility] Comment on above: Order Comment: 104.2 Result Comment: Bord htnmmb=285-289 mg/dL Higher Knqc=729 mg/dL or greater Performed By: #### L 500.2500, L3700.3000, L501.9520, L100.0500, L500.4100 ####[facility] [address] [place], [address] Cholesterol in VLDL [Mass/Vol] 15 mg/dL Normal 5-40 [facility] Comment on above: Order Comment: 104.2 Performed By: #### L 500.2500, L3700.3000, L501.9520, L100.0500, L500.4100 ####[facility] [address] [place], [address] Triglyceride [Mass/Vol] 77 mg/dL Normal [facility] Comment on above: Order Comment: 104.2 Result Comment: The drugs N-Acetylcysteine and Metamizole may falselydepress this assay.Normal range: <150 mg/dLBorderline High: 150-199 mg/dLHigh: 200-499 mg/dLVery High: >500 mg/dL Performed By: #### L 500.2500, L3700.3000, L501.9520, L100.0500, L500.4100 ####[facility] [address] [place], [address] MCV (mean corpuscular volume ) determinationOrdered By: Panda Littlejohn on 12-08-2024 MCV (RBC) [Entitic vol] 101.0 fL High 81-99 [facility] Mean corpuscular hemoglobin (MCH) determinationOrdered By: Panda Littlejohn on 12-08-2024 MCH (RBC) [Entitic mass] 32.9 pg High 27.0-32.0 [facility] Mean corpuscular hemoglobin concentration (MCHC) determinationOrdered By: Panda Littlejohn on 12-08-2024 MCHC (RBC) [Mass/Vol] 32.6 g/dL 32-36 [facility] Mean platelet volume determi nationOrdered By: Panda Littlejohn on 12-08-2024 Platelet mean volume (Bld) [Entitic vol] 10.7 fL 6.2-12.0 [facility] Platelet countOrdered By: Stormy Littlejohn on 12-08-2024 Platelets (Bld) [#/Vol] 206 10*3/uL 150-450 [facility] Potassium measurement (mass/ volume)Ordered By: Panda Littlejohn on 12-08-2024 Potassium (Unsp spec) [Mass/Vol] 3.8 mmol/L 3.3-5.1 [facility] RBC Auto (Bld) [#/Vol]Ordere d By: Panda Littlejohn on 12-08-2024 RBC (Bld) [#/Vol] 3.01 10*6/uL Low 4.2-5.[address] [facility] Screening total cholesterol/ high density lipoprotein (HDL) cholesterol ratioOrdered By: Panda Littlejohn on 12-08-2024 Cholesterol.total/Brittany sterol in HDL [Mass ratio] 2.19 {ratio} [facility] Serum creatinine measurement (mass/volume)Ordered By: Panda Littlejohn on 12-08-2024 Creatinine [Mass/Vol] 1.28 mg/dL High 0.70-1.20 [facility] Serum glucose measurement (m ass/volume)Ordered By: Panda Littlejohn on 12-08-2024 Glucose [Mass/Vol] 81 mg/dL 70-99 [facility] [place] Serum or plasma calcium jerod urement (mass/volume)Ordered By: Panda Littlejohn on 12-08-2024 Calcium [Mass/Vol] 9.2 mg/dL 7.6-11.0 [facility] [place] Serum or plasma cholesterol in HDL measurement (mass/volume)Ordered By: Panda Littlejohn on 12-08-2024 Cholesterol in HDL [Mass/Vol] 96 mg/dL >40 [facility] Comment on above: National Cholesterol Education Program (NCEP) guidelines:<40 mg/dL: Low HDL-cholesterol (major risk factor for CHD)>= 60 mg/dL: High HDL-cholesterol (negative risk factor for CHD)HDL-cholesterol is affected by a number of factors, e.g. smoking, exercise, hormones, sex and age. Serum or plasma cholesterol measurement (mass/volume)Ordered By: Panda Littlejohn on 12-08-2024 Cholesterol [Mass/Vol] 210 mg/dL High <201 [facility] Comment on above: Cholesterol level, D esirable <200 mg/dLBorderline high cholesterol 200-239 mg/dLHigh cholesterol >=240 mg/dLRecommendations of the NCEP Adult Treatment Panel for the following risk-cutoff thresholds for the [place] population. Serum or plasma urea nitroge n measurement (mass/volume)Ordered By: Panda Littlejohn on 12-08-2024 Urea nitrogen [Mass/Vol] 43 mg/dL High 4-19 [facility] Sodium levelOrdered By: Panda Littlejohn on 12-08-2024 Sodium [Moles/Vol] 140 mmol/L 133-145 [facility] [place] TSH DL <= 0.005 mIU/L QnOrde red By: Panda Littlejohn on 12-08-2024 TSH Qn 3.090 uIU/mL 0.300-4.200 [facility] Thyroid Stim Hormone (TSH)on 12-08-2024 TSH 3.090 uIU/mL Normal 0.300-4.200 [facility] Comment on above: Order Comment: 104.2 Performed By: #### L 500.2500, L3700.3000, L501.9520, L100.0500, L500.4100 ####[facility] [address] [place], [address] Triglycerides measurementOrd ered By: Panda Littlejohn on 12-08-2024 Triglyceride [Mass/Vol] 77 mg/dL <199 [facility] Comment on above: The drugs N-Acetylcy steine and Metamizole may falsely depress this assay. Normal range: <150 mg/dLBorderline High: 150-199 mg/dLHigh: 200-499 mg/dLVery High: >500 mg/dL White blood cell (WBC) count Ordered By: Panda Littlejohn on 12-08-2024 WBC (Bld) [#/Vol] 4.2 10*3/uL Low 4.4-11.0 [facility] [place] Anion gap in Serum or Plasma Ordered By: Panda Littlejohn on 10-21-2024 Anion gap [Moles/Vol] 14 mmol/L 10-22 [facility] BUN/creatinine ratioOrdered By: Panda Littlejohn on 10-21-2024 Urea nitrogen/Creatinine [Mass ratio] 28.1 mg/mg High 03-29 [facility] Basic Metabolic Profile (BMP )on 10-21-2024 BUN/CRE 28.1 RATIO High 03-29 [facility] Comment on above: Order Comment: 104.2 Performed By: #### L 500.2500, L506.1001, L501.9520, L500.3400, L500.4100, L100.0500, L501.7510 ####[facility] [address] [place], [address] Calcium [Mass/Vol] 9.2 mg/dL Normal 7.6-11.0 [facility] [place] Comment on above: Order Comment: 104.2 Performed By: #### L 500.2500, L506.1001, L501.9520, L500.3400, L500.4100, L100.0500, L501.7510 ####[facility] [address] [place], [address] Chloride [Moles/Vol] 97 mmol/L Low 98-108 [facility] Comment on above: Order Comment: 104.2 Performed By: #### L 500.2500, L506.1001, L501.9520, L500.3400, L500.4100, L100.0500, L501.7510 ####[facility] [address] [place], [address] CO2 [Moles/Vol] 26.8 mmol/L Normal 21.0-32.0 [facility] Comment on above: Order Comment: 104.2 Performed By: #### L 500.2500, L506.1001, L501.9520, L500.3400, L500.4100, L100.0500, L501.7510 ####[facility] [address] [place], [address] Creatinine [Mass/Vol] 1.00 mg/dL Normal 0.70-1.20 [facility] Comment on above: Order Comment: 104.2 Performed By: #### L 500.2500, L506.1001, L501.9520, L500.3400, L500.4100, L100.0500, L501.7510 ####[facility] [address] [place], [address] GAP 14 Normal 5-15 [facility] Comment on above: Order Comment: 104.2 Performed By: #### L 500.2500, L506.1001, L501.9520, L500.3400, L500.4100, L100.0500, L501.7510 ####[facility] [address] [place], [place], [phone] GFR/1.73 sq M.predicted among non-blacks MDRD (S/P/Bld) [Vol rate/Area] 59 mL/min/{1.73_m2} Low >60 [facility] Comment on above: Order Comment: 104.2 Result Comment: mL/m in/1.73m2 CKD-EPI Creatinine Equation (2020) Performed By: #### L 500.2500, L506.1001, L501.9520, L500.3400, L500.4100, L100.0500, L501.7510 ####[facility] [address] [place], [address] Glucose [Mass/Vol] 113 mg/dL High 70-99 [facility] [place] Comment on above: Order Comment: 104.2 Performed By: #### L 500.2500, L506.1001, L501.9520, L500.3400, L500.4100, L100.0500, L501.7510 ####[facility] [address] [place], [address] Potassium [Moles/Vol] 3.8 mmol/L Normal 3.3-5.1 [facility] Comment on above: Order Comment: 104.2 Performed By: #### L 500.2500, L506.1001, L501.9520, L500.3400, L500.4100, L100.0500, L501.7510 ####[facility] [address] [place], [address] Sodium [Moles/Vol] 138 mmol/L Normal 133-145 [facility] Comment on above: Order Comment: 104.2 Performed By: #### L 500.2500, L506.1001, L501.9520, L500.3400, L500.4100, L100.0500, L501.7510 ####[facility] [address] [place], [address] Urea nitrogen [Mass/Vol] 28 mg/dL High 4-19 [facility] Comment on above: Order Comment: 104.2 Performed By: #### L 500.2500, L506.1001, L501.9520, L500.3400, L500.4100, L100.0500, L501.7510 ####[facility] [address] [place], [address] Bilirubin directOrdered By: Panda Littlejohn on 10-21-2024 Bilirubin.direct [Mass/Vol] mg/dL 0.00-0.30 [facility] Bilirubin, totalOrdered By: Panda Littlejohn on 10-21-2024 Bilirubin [Mass/Vol] mg/dL 0.00-1.30 [facility] CBC-Complete Blood Cnt No Di ffon 10-21-2024 Erythrocyte distribution width (RBC) [Ratio] 17.9 % High 11.6-14.6 [facility] Comment on above: Order Comment: 104.2 Performed By: #### L 500.2500, L506.1001, L501.9520, L500.3400, L500.4100, L100.0500, L501.7510 ####[facility] [address] [place], [address] Hematocrit (Bld) [Volume fraction] 32.8 % Low 37-47 [facility] Comment on above: Order Comment: 104.2 Performed By: #### L 500.2500, L506.1001, L501.9520, L500.3400, L500.4100, L100.0500, L501.7510 ####[facility] [address] [place], [address] Hemoglobin (Bld) [Mass/Vol] 10.7 g/dL Low 12.0-15.0 [facility] Comment on above: Order Comment: 104.2 Performed By: #### L 500.2500, L506.1001, L501.9520, L500.3400, L500.4100, L100.0500, L501.7510 ####[facility] [address] [place], [address] MCH (RBC) [Entitic mass] 32.5 pg High 27.0-32.0 [facility] Comment on above: Order Comment: 104.2 Performed By: #### L 500.2500, L506.1001, L501.9520, L500.3400, L500.4100, L100.0500, L501.7510 ####[facility] [address] [place], [address] MCHC (RBC) [Mass/Vol] 32.6 g/dL Normal 32-36 [facility] Comment on above: Order Comment: 104.2 Performed By: #### L 500.2500, L506.1001, L501.9520, L500.3400, L500.4100, L100.0500, L501.7510 ####[facility] [address] [place], [address] MCV (RBC) [Entitic vol] 99.7 fL High 81-99 [facility] Comment on above: Order Comment: 104.2 Performed By: #### L 500.2500, L506.1001, L501.9520, L500.3400, L500.4100, L100.0500, L501.7510 ####[facility] [address] [place], [address] Platelet mean volume (Bld) [Entitic vol] 9.7 fL Normal 6.2-12.0 [facility] Comment on above: Order Comment: 104.2 Performed By: #### L 500.2500, L506.1001, L501.9520, L500.3400, L500.4100, L100.0500, L501.7510 ####[facility] [address] [place], [address] Platelets (Bld) [#/Vol] 248 10*3/uL Normal 150-450 [facility] Comment on above: Order Comment: 104.2 Performed By: #### L 500.2500, L506.1001, L501.9520, L500.3400, L500.4100, L100.0500, L501.7510 ####[facility] [address] [place], [address] RBC (Bld) [#/Vol] 3.29 10*6/uL Low 4.2-5.[address] [facility] Comment on above: Order Comment: 104.2 Performed By: #### L 500.2500, L506.1001, L501.9520, L500.3400, L500.4100, L100.0500, L501.7510 ####[facility] [address] [place], [place], [id number] RDW SD 65.7 fl High 35.1-43.9 [facility] Comment on above: Order Comment: 104.2 Performed By: #### L 500.2500, L506.1001, L501.9520, L500.3400, L500.4100, L100.0500, L501.7510 ####[facility] [address] [place], [place], [id number] WBC (Bld) [#/Vol] 5.9 10*3/uL Normal 4.4-11.0 [facility] Comment on above: Order Comment: 104.2 Performed By: #### L 500.2500, L506.1001, L501.9520, L500.3400, L500.4100, L100.0500, L501.7510 ####[facility] [address] [place], [place], [id number] Calculated very low density lipoprotein (VLDL) cholesterol measurementOrdered By: Panda Littlejohn on 10-21-2024 Calculated very low density lipoprotein (VLDL) cholesterol measurement 31 mg/dL 5-40 [facility] Carbon dioxide, total [Moles /volume] in Central venous bloodOrdered By: Panda Littlejohn on 10-21-2024 CO2 [Moles/Vol] 26.8 mmol/L 21.0-32.0 [facility] Chloride assayOrdered By: Stormy Littlejohn on 10-21-2024 Chloride [Moles/Vol] 97 mmol/L Low 98-108 [facility] Digoxin Levelon 10-21-2024 DIG 0.46 ng/mL Normal 0.00-2.00 [facility] Comment on above: Order Comment: 104.2 Performed By: #### L 500.2500, L506.1001, L501.9520, L500.3400, L500.4100, L100.0500, L501.7510 ####[facility] [address] [place], [address] Erythrocyte distribution wid th ratioOrdered By: Panda Littlejohn on 10-21-2024 Erythrocyte distribution width (RBC) [Ratio] 17.9 % High 11.6-14.6 [facility] Erythrocyte distribution wid th standard deviationOrdered By: Panda Littlejohn on 10-21-2024 Erythrocyte distribution width (RBC) [Ratio] 65.7 fl High 35.1-43.9 [facility] Glomerular filtration rate ( GFR) estimation/1.73 sq m using serum, plasma, or whole bOrdered By: Panda Littlejohn on 10-21-2024 GFR/1.73 sq M.predicted among non-blacks MDRD (S/P/Bld) [Vol rate/Area] 59 mL/min/{1.73_m2} Low >60 [facility] Comment on above: mL/min/1.73m2 CKD-EP I Creatinine Equation (2020) Hematocrit Auto (Bld) [Volum e fraction]Ordered By: Panda Littlejohn on 10-21-2024 Hematocrit (Bld) [Volume fraction] 32.8 % Low 37-47 [facility] Hemoglobin measurementOrdere d By: Panda Littlejohn on 10-21-2024 Hemoglobin (Bld) [Mass/Vol] 10.7 g/dL Low 12.0-15.0 [facility] LDL calc ser/plasOrdered By: Panda Littlejohn on 10-21-2024 Cholesterol in LDL [Mass/Vol] 114 mg/dL [facility] Comment on above: Qvgzhocepz=040-715 m g/dL & Higher Hjlt=042 mg/dL or greater Laboratory - Chemistry and C hemistry - challengeOrdered By: Panda Littlejohn on 10-21-2024 AST [Catalytic activity/Vol] 22 U/L <32 [facility] Lipid Profileon 10-21-2024 CHOL:HDL 2.76 Normal [facility] Comment on above: Order Comment: 104.2 Performed By: #### L 500.2500, L506.1001, L501.9520, L500.3400, L500.4100, L100.0500, L501.7510 ####[facility] [address] [place], [address] Cholesterol [Mass/Vol] 228 mg/dL High <=200 [facility] Comment on above: Order Comment: 104.2 Result Comment: Chol esterol level, Desirable <200 mg/dLBorderline high cholesterol 200-239 mg/dLHigh cholesterol >=240 mg/dLRecommendations of the NCEP Adult Treatment Panel for thefollowing risk-cutoff thresholds for the [place] [facility] centerulation. Performed By: #### L 500.2500, L506.1001, L501.9520, L500.3400, L500.4100, L100.0500, L501.7510 ####[facility] [address] [place], [address] Cholesterol in HDL [Mass/Vol] 83 mg/dL Normal [facility] Comment on above: Order Comment: 104.2 Result Comment: Im onal Cholesterol Education Program (NCEP) guidelines:<40 mg/dL: Low HDL-cholesterol (major risk factor for CHD)>= 60 mg/dL: High HDL-cholesterol (negative risk factor forCHD)HDL-cholesterol is affected by a number of factors, e.g.smoking, exercise, hormones, sex and age. Performed By: #### L 500.2500, L506.1001, L501.9520, L500.3400, L500.4100, L100.0500, L501.7510 ####[facility] [address] [place], [address] Cholesterol in LDL [Mass/Vol] 114 mg/dL Normal [facility] Comment on above: Order Comment: 104.2 Result Comment: Bord hbaadd=787-657 mg/dL Higher Qeua=008 mg/dL or greater Performed By: #### L 500.2500, L506.1001, L501.9520, L500.3400, L500.4100, L100.0500, L501.7510 ####[facility] [address] [place], [address] Cholesterol in VLDL [Mass/Vol] 31 mg/dL Normal 5-40 [facility] Comment on above: Order Comment: 104.2 Performed By: #### L 500.2500, L506.1001, L501.9520, L500.3400, L500.4100, L100.0500, L501.7510 ####[facility] [address] [place], [address] Triglyceride [Mass/Vol] 155 mg/dL Normal [facility] Comment on above: Order Comment: 104.2 Result Comment: The drugs N-Acetylcysteine and Metamizole may falselydepress this assay.Normal range: <150 mg/dLBorderline High: 150-199 mg/dLHigh: 200-499 mg/dLVery High: >500 mg/dL Performed By: #### L 500.2500, L506.1001, L501.9520, L500.3400, L500.4100, L100.0500, L501.7510 ####[facility] [address] [place], [address] Liver Profileon 10-21-2024 Albumin [Mass/Vol] 3.9 g/dL Normal 3.4-4.8 [facility] Comment on above: Order Comment: 104.2 Performed By: #### L 500.2500, L506.1001, L501.9520, L500.3400, L500.4100, L100.0500, L501.7510 ####[facility] [address] [place], [address] ALK PHOS 134 U/L High 35-104 [facility] Comment on above: Order Comment: 104.2 Performed By: #### L 500.2500, L506.1001, L501.9520, L500.3400, L500.4100, L100.0500, L501.7510 ####[facility] [address] [place], [address] ALT [Catalytic activity/Vol] 10 U/L Normal <=34 [facility] Comment on above: Order Comment: 104.2 Performed By: #### L 500.2500, L506.1001, L501.9520, L500.3400, L500.4100, L100.0500, L501.7510 ####[facility] [address] [place], [address] AST [Catalytic activity/Vol] 22 U/L Normal <=31 [facility] Comment on above: Order Comment: 104.2 Performed By: #### L 500.2500, L506.1001, L501.9520, L500.3400, L500.4100, L100.0500, L501.7510 ####[facility] [address] [place], [address] D BILI < 0.08 Normal 0.00-0.30 [facility] Comment on above: Order Comment: 104.2 Performed By: #### L 500.2500, L506.1001, L501.9520, L500.3400, L500.4100, L100.0500, L501.7510 ####[facility] [address] [place], [address] Globulin (S) [Mass/Vol] 3.7 g/dL Normal 2.2-4.2 [facility] Comment on above: Order Comment: 104.2 Performed By: #### L 500.2500, L506.1001, L501.9520, L500.3400, L500.4100, L100.0500, L501.7510 ####[facility] [address] [place], [address] T BILI < 0.15 Normal 0.00-1.30 [facility] Comment on above: Order Comment: 104.2 Performed By: #### L 500.2500, L506.1001, L501.9520, L500.3400, L500.4100, L100.0500, L501.7510 ####[facility] [address], [address] T PROT 7.5 g/dL Normal 5.9-8.4 [facility] Comment on above: Order Comment: 104.2 Performed By: #### L 500.2500, L506.1001, L501.9520, L500.3400, L500.4100, L100.0500, L501.7510 ####[facility] [address] [place], [address] MCV (mean corpuscular volume ) determinationOrdered By: Panda Littlejohn on 10-21-2024 MCV (RBC) [Entitic vol] 99.7 fL High 81-99 [facility] Mean corpuscular hemoglobin (MCH) determinationOrdered By: Panda Littlejohn on 10-21-2024 MCH (RBC) [Entitic mass] 32.5 pg High 27.0-32.0 [facility] Mean corpuscular hemoglobin concentration (MCHC) determinationOrdered By: Panda Littlejohn on 10-21-2024 MCHC (RBC) [Mass/Vol] 32.6 g/dL 32-36 [facility] Mean platelet volume determi nationOrdered By: Panda Littlejohn on 10-21-2024 Platelet mean volume (Bld) [Entitic vol] 9.7 fL 6.2-12.0 [facility] Platelet countOrdered By: Stormy Littlejohn on 10-21-2024 Platelets (Bld) [#/Vol] 248 10*3/uL 150-450 [facility] Potassium measurement (mass/ volume)Ordered By: Panda Littlejohn on 10-21-2024 Potassium (Unsp spec) [Mass/Vol] 3.8 mmol/L 3.3-5.1 [facility] RBC Auto (Bld) [#/Vol]Ordere d By: Panda Littlejohn on 10-21-2024 RBC (Bld) [#/Vol] 3.29 10*6/uL Low 4.2-5.[address] [facility] Screening total cholesterol/ high density lipoprotein (HDL) cholesterol ratioOrdered By: Panda Littlejohn on 10-21-2024 Cholesterol.total/Brittany sterol in HDL [Mass ratio] 2.76 {ratio} [facility] Serum creatinine measurement (mass/volume)Ordered By: Panda Littlejohn on 10-21-2024 Creatinine [Mass/Vol] 1.00 mg/dL 0.70-1.20 [facility] Serum globulin measurementOr dered By: Panda Littlejohn on 10-21-2024 Globulin (S) [Mass/Vol] 3.7 g/dL 2.2-4.2 [facility] Serum glucose measurement (m ass/volume)Ordered By: Panda Littlejohn on 10-21-2024 Glucose [Mass/Vol] 113 mg/dL High 70-99 [facility] Serum or plasma alanine barrientos otransferase (ALT) measurementOrdered By: Panda Littlejohn on 10-21-2024 ALT [Catalytic activity/Vol] 10 U/L <35 [facility] Serum or plasma albumin jerod urement (mass/volume)Ordered By: Panda Littlejohn on 10-21-2024 Albumin [Mass/Vol] 3.9 g/dL 3.4-4.8 [facility] Serum or plasma alkaline mingo sphatase measurementOrdered By: Panda Littlejohn on 10-21-2024 ALP [Catalytic activity/Vol] 134 U/L High 35-104 [facility] Serum or plasma calcium jerod urement (mass/volume)Ordered By: Panda Littlejohn on 10-21-2024 Calcium [Mass/Vol] 9.2 mg/dL 7.6-11.0 [facility] Serum or plasma cholesterol in HDL measurement (mass/volume)Ordered By: Panda Littlejohn on 10-21-2024 Cholesterol in HDL [Mass/Vol] 83 mg/dL >40 [facility] Comment on above: National Cholesterol Education Program (NCEP) guidelines:<40 mg/dL: Low HDL-cholesterol (major risk factor for CHD)>= 60 mg/dL: High HDL-cholesterol (negative risk factor for CHD)HDL-cholesterol is affected by a number of factors, e.g. smoking, exercise, hormones, sex and age. Serum or plasma cholesterol measurement (mass/volume)Ordered By: Panda Littlejonh on 10-21-2024 Cholesterol [Mass/Vol] 228 mg/dL High <201 [facility] Comment on above: Cholesterol level, D esirable <200 mg/dLBorderline high cholesterol 200-239 mg/dLHigh cholesterol >=240 mg/dLRecommendations of the NCEP Adult Treatment Panel for the following risk-cutoff thresholds for the [place] population. Serum or plasma digoxin jerod urement (mass/volume)Ordered By: Panda Littlejohn on 10-21-2024 Digoxin [Mass/Vol] 0.46 ng/mL 0.00-2.00 [facility] Serum or plasma urea nitroge n measurement (mass/volume)Ordered By: Panda Littlejohn on 10-21-2024 Urea nitrogen [Mass/Vol] 28 mg/dL High 4-19 [facility] Sodium levelOrdered By: Panda Littlejohn on 10-21-2024 Sodium [Moles/Vol] 138 mmol/L 133-145 [facility] TSH DL <= 0.005 mIU/L QnOrde red By: Panda Littlejohn on 10-21-2024 TSH Qn 5.350 uIU/mL High 0.300-4.200 [facility] Thyroid Stim Hormone (TSH)on 10-21-2024 TSH 5.350 uIU/mL High 0.300-4.200 [facility] Comment on above: Order Comment: 104.2 Performed By: #### L 500.2500, L506.1001, L501.9520, L500.3400, L500.4100, L100.0500, L501.7510 ####[facility] [address] [place], [address] Total proteinOrdered By: Biju Littlejohn on 10-21-2024 Protein [Mass/Vol] 7.5 g/dL 5.9-8.4 [facility] Triglycerides measurementOrd ered By: Panda Littlejohn on 10-21-2024 Triglyceride [Mass/Vol] 155 mg/dL <199 [facility] Comment on above: The drugs N-Acetylcy steine and Metamizole may falsely depress this assay. Normal range: <150 mg/dLBorderline High: 150-199 mg/dLHigh: 200-499 mg/dLVery High: >500 mg/dL Vitamin D,25 Hydroxyon 10-21 Vitamin D 25-OH 52.2 ng/mL Normal 30-100 [facility] Comment on above: Order Comment: 104.2 Result Comment: Marielle min D StatusDeficiency: <20 ng/mL (50nmol/L)Insufficiency: 20-30 ng/mL (50-75 nmol/L)Sufficiency: 30-100 ng/mL (75-250 nmol/L)Toxicity: >100 ng/mL (>250 nmol/L) Performed By: #### L 500.2500, L506.1001, L501.9520, L500.3400, L500.4100, L100.0500, L501.7510 ####[facility] [address] [place], [address] White blood cell (WBC) count Ordered By: Panda Littlejohn on 10-21-2024 WBC (Bld) [#/Vol] 5.9 10*3/uL 4.4-11.0 [facility] L3700.3000on 10-08-2024 PHENobarbital [Mass/Vol] 41 ug/mL Abnormal 15-40 [facility] Comment on above: Order Comment: 104-2 Result Comment: Dete ction Limit = 3Patient drug level exceeds published reference range.Evaluate clinically for signs of potential toxicity.Performed at: [facility] [id number] Director: Jose Vicente PhD, Phone: [phone] Performed By: #### L 3700.3000 ####[facility] [address] [place], [place], [id number] Culture, Blood (WB)on 2024 CUB Blood cultures x2, from two different sites No growth in 5 days. Normal [facility] Comment on above: Performed By: #### L 500.4050, L100.0100, M200.1000, L300.3900, L503.6005, L300.4310 ####[facility] [address] [place], [place], [id number] Basic Metabolic Profile (BMP )on 08-18-2024 BUN Normal 4-19 [facility] Comment on above: Result Comment: Canc elled via OM: Order cancelled - Patient discharged Performed By: #### L 100.0100, L500.2500 ####[facility] [address] [place], [address] BUN/CRE Normal 10-20 [facility] Comment on above: Result Comment: Canc elled via OM: Order cancelled - Patient discharged Performed By: #### L 100.0100, L500.2500 ####[facility] [address] [place], [address] Calcium Normal 7.6-11.0 [facility] Comment on above: Result Comment: Canc elled via OM: Order cancelled - Patient discharged Performed By: #### L 100.0100, L500.2500 ####[facility] [address] [place], [address] CL Normal 98-108 [facility] Comment on above: Result Comment: Canc elled via OM: Order cancelled - Patient discharged Performed By: #### L 100.0100, L500.2500 ####[facility] [address] [place], [address] CO2 Normal 21.0-32.0 [facility] Comment on above: Result Comment: Canc elled via OM: Order cancelled - Patient discharged Performed By: #### L 100.0100, L500.2500 ####[facility] [address] [place], [address] CREAT,SERUM Normal 0.70-1.20 [facility] Comment on above: Result Comment: Canc elled via OM: Order cancelled - Patient discharged Performed By: #### L 100.0100, L500.2500 ####[facility] [address] [place], [address] eGFR Normal >60 [facility] Comment on above: Result Comment: Canc elled via OM: Order cancelled - Patient discharged Performed By: #### L 100.0100, L500.2500 ####[facility] [address] [place], [address] GAP Normal 5-15 [facility] Comment on above: Result Comment: Canc elled via OM: Order cancelled - Patient discharged Performed By: #### L 100.0100, L500.2500 ####[facility] [address] [place], [address] GLU Normal 70-99 [facility] Comment on above: Result Comment: Canc elled via OM: Order cancelled - Patient discharged Performed By: #### L 100.0100, L500.2500 ####[facility] [address] [place], [address] Potassium Normal 3.3-5.1 [facility] Comment on above: Result Comment: Canc elled via OM: Order cancelled - Patient discharged Performed By: #### L 100.0100, L500.2500 ####[facility] [address], [address] Basic Metabolic Profile (BMP) Normal 133-145 [facility] Comment on above: Result Comment: Canc elled via OM: Order cancelled - Patient discharged Performed By: #### L 100.0100, L500.2500 ####[facility] [address] [place], [address] CBC W/Diff, Automatedon - Absolute Neut Normal 2.0-7.7 [facility] Comment on above: Result Comment: Canc elled via OM: Order cancelled - Patient discharged Performed By: #### L 100.0100, L500.2500 ####[facility] [address] [place], [address] HCT Normal 37-47 [facility] Comment on above: Result Comment: Canc elled via OM: Order cancelled - Patient discharged Performed By: #### L 100.0100, L500.2500 ####[facility] [address] [place], [address] HGB Normal 12.0-15.0 [facility] Comment on above: Result Comment: Canc elled via OM: Order cancelled - Patient discharged Performed By: #### L 100.0100, L500.2500 ####[facility] [address] [place], [address] MCH Normal 27.0-32.0 [facility] Comment on above: Result Comment: Canc elled via OM: Order cancelled - Patient discharged Performed By: #### L 100.0100, L500.2500 ####[facility] [address] [place], [address] MCHC Normal 32-36 [facility] Comment on above: Result Comment: Canc elled via OM: Order cancelled - Patient discharged Performed By: #### L 100.0100, L500.2500 ####[facility] [address] [place], [address] MCV Normal 81-99 [facility] Comment on above: Result Comment: Canc elled via OM: Order cancelled - Patient discharged Performed By: #### L 100.0100, L500.2500 ####[facility] [address] [place], [address] NEUT% Normal 47-70 [facility] Comment on above: Result Comment: Canc elled via OM: Order cancelled - Patient discharged Performed By: #### L 100.0100, L500.2500 ####[facility] [address] [place], [address] PLT Normal 150-450 [facility] Comment on above: Result Comment: Canc elled via OM: Order cancelled - Patient discharged Performed By: #### L 100.0100, L500.2500 ####[facility] [address] [place], [address] RBC Normal 4.2-5.4 [facility] Comment on above: Result Comment: Canc elled via OM: Order cancelled - Patient discharged Performed By: #### L 100.0100, L500.2500 ####[facility] [address] [place], [address] RDW CV Normal 11.6-14.6 [facility] Comment on above: Result Comment: Canc elled via OM: Order cancelled - Patient discharged Performed By: #### L 100.0100, L500.2500 ####[facility] [address] [place], [address] RDW SD Normal 35.1-43.9 [facility] Comment on above: Result Comment: Canc elled via OM: Order cancelled - Patient discharged Performed By: #### L 100.0100, L500.2500 ####[facility] [address] [place], [address] WBC Normal 4.4-11.0 [facility] Comment on above: Result Comment: Canc elled via OM: Order cancelled - Patient discharged Performed By: #### L 100.0100, L500.2500 ####[facility] [address] [place], [address] 12 Lead EKGon 08-17-2024 12 Lead EKG Normal [facility] Absolute neutrophil countOrd ered By: Lc Head on 08-17-2024 Neutrophils (Bld) [#/Vol] 6.2 10*3/uL 2.0-7.7 [facility] Anion gap in Serum or Plasma Ordered By: Lc Head on 08-17-2024 Anion gap [Moles/Vol] 19 mmol/L High 10-22 [facility] BUN/creatinine ratioOrdered By: Lc Head on 08-17-2024 Urea nitrogen/Creatinine [Mass ratio] 41.4 mg/mg High 03-29 [facility] Basic Metabolic Profile (BMP )on 08-17-2024 BUN/CRE 41.4 RATIO High 03-29 [facility] Comment on above: Performed By: #### L 500.2500, L100.0100 ####[facility] [address] [place], [address] Calcium [Mass/Vol] 9.0 mg/dL Normal 7.6-11.0 [facility] Comment on above: Performed By: #### L 500.2500, L100.0100 ####[facility] [address] [place], [address] Chloride [Moles/Vol] 99 mmol/L Normal 98-108 [facility] Comment on above: Performed By: #### L 500.2500, L100.0100 ####[facility] [address] [place], [address] CO2 [Moles/Vol] 24.6 mmol/L Normal 21.0-32.0 [facility] Comment on above: Performed By: #### L 500.2500, L100.0100 ####[facility] [address] [place], [address] Creatinine [Mass/Vol] 0.85 mg/dL Normal 0.70-1.20 [facility] Comment on above: Performed By: #### L 500.2500, L100.0100 ####[facility] [address] [place], [address] ECRCL 79.21 ml/min Normal 50-250 [facility] Comment on above: Performed By: #### L 500.2500, L100.0100 ####[facility] [address] [place], [address] GAP 19 High 5-15 [facility] Comment on above: Performed By: #### L 500.2500, L100.0100 ####[facility] [address] [place], [address] GFR/1.73 sq M.predicted among non-blacks MDRD (S/P/Bld) [Vol rate/Area] 72 mL/min/{1.73_m2} Normal >60 [facility] Comment on above: Result Comment: mL/m in/1.73m2 CKD-EPI Creatinine Equation (2020) Performed By: #### L 500.2500, L100.0100 ####[facility] [address] [place], [address] Glucose [Mass/Vol] 134 mg/dL High 70-99 [facility] Comment on above: Performed By: #### L 500.2500, L100.0100 ####[facility] [address] [place], [address] Potassium [Moles/Vol] 3.6 mmol/L Normal 3.3-5.1 [facility] Comment on above: Performed By: #### L 500.2500, L100.0100 ####[facility] [address], [address] Sodium [Moles/Vol] 143 mmol/L Normal 133-145 [facility] Comment on above: Performed By: #### L 500.2500, L100.0100 ####[facility] [address] [place], [address] Urea nitrogen [Mass/Vol] 35 mg/dL High 4-19 [facility] Comment on above: Performed By: #### L 500.2500, L100.0100 ####[facility] [address] [place], [address] Basophil percentageOrdered B y: Lc Head on 08-17-2024 Basophils/100 WBC (Bld) 0.3 % 0-1 [facility] CBC W/Diff, Automatedon 08-08 Absolute Lymph 0.87 X10 3/uL Normal 0.83-4.51 [facility] Comment on above: Performed By: #### L 500.2500, L100.0100 ####[facility] [address] [place], [address] Absolute Neut 6.2 X10 3/uL Normal 2.0-7.7 [facility] Comment on above: Performed By: #### L 500.2500, L100.0100 ####[facility] [address], [address] Basophils/100 WBC (Bld) 0.3 % Normal 0-1 [facility] Comment on above: Performed By: #### L 500.2500, L100.0100 ####[facility] [address] [place], [address] Eosinophils/100 WBC (Bld) 1.0 % Normal 0-5 [facility] Comment on above: Performed By: #### L 500.2500, L100.0100 ####[facility] [address] [place], [address] Erythrocyte distribution width (RBC) [Ratio] 15.7 % High 11.6-14.6 [facility] Comment on above: Performed By: #### L 500.2500, L100.0100 ####[facility] [address] [place], [address] Hematocrit (Bld) [Volume fraction] 31.2 % Low 37-47 [facility] Comment on above: Performed By: #### L 500.2500, L100.0100 ####[facility] [address] [place], [address] Hemoglobin (Bld) [Mass/Vol] 10.2 g/dL Low 12.0-15.0 [facility] Comment on above: Performed By: #### L 500.2500, L100.0100 ####[facility] [address] [place], [address] IG% 0.600 Normal 0.0-0.9 [facility] Comment on above: Result Comment: IG% - Immature Granulocytes (promyelocytes, myelocytes andmetamyelocytes) > 1% indicates that a LEFT SHIFT is Present. Performed By: #### L 500.2500, L100.0100 ####[facility] [address] [place], [address] Lymphocytes/100 WBC (Bld) 11.3 % Low 19-41 [facility] Comment on above: Performed By: #### L 500.2500, L100.0100 ####[facility] [address] [place], [address] MCH (RBC) [Entitic mass] 32.4 pg High 27.0-32.0 [facility] Comment on above: Performed By: #### L 500.2500, L100.0100 ####[facility] [address] [place], [address] MCHC (RBC) [Mass/Vol] 32.7 g/dL Normal 32-36 [facility] Comment on above: Performed By: #### L 500.2500, L100.0100 ####[facility] [address] [place], [address] MCV (RBC) [Entitic vol] 99.0 fL Normal 81-99 [facility] Comment on above: Performed By: #### L 500.2500, L100.0100 ####[facility] [address] [place], [address] Monocytes/100 WBC (Bld) 6.9 % Normal 0-10 [facility] Comment on above: Performed By: #### L 500.2500, L100.0100 ####[facility] [address] [place], [address] Neutrophils/100 WBC (Bld) 79.9 % High 47-70 [facility] Comment on above: Performed By: #### L 500.2500, L100.0100 ####[facility] [address] [place], [address] Nucleated RBC (Bld) [#/Vol] 0.3 10*3/uL Normal 0-5 [facility] Comment on above: Performed By: #### L 500.2500, L100.0100 ####[facility] [address] [place], [address] Platelet mean volume (Bld) [Entitic vol] 10.5 fL Normal 6.2-12.0 [facility] Comment on above: Performed By: #### L 500.2500, L100.0100 ####[facility] [address] [place], [address] Platelets (Bld) [#/Vol] 209 10*3/uL Normal 150-450 [facility] Comment on above: Performed By: #### L 500.2500, L100.0100 ####[facility] [address] [place], [address] RBC (Bld) [#/Vol] 3.15 10*6/uL Low 4.2-5.[address] [facility] Comment on above: Performed By: #### L 500.2500, L100.0100 ####[facility] [address] [place], [address] RDW SD 56.3 fl High 35.1-43.9 [facility] Comment on above: Performed By: #### L 500.2500, L100.0100 ####[facility] [address] [place], [address] WBC (Bld) [#/Vol] 7.7 10*3/uL Normal 4.4-11.0 [facility] Comment on above: Performed By: #### L 500.2500, L100.0100 ####[facility] [address] [place], [address] Carbon dioxide, total [Moles /volume] in Central venous bloodOrdered By: Lc Head on 08-17-2024 CO2 [Moles/Vol] 24.6 mmol/L 21.0-32.0 [facility] Cardiovascular stress test r eportOrdered By: Dinesh Medina on 08-17-2024 Study report [facility] [address] [place] [address] MR#: [id number] Acct: [id number] Name: ADRIENNE MORRISON Rep #: [id number] : 1950 74 From: Dinesh rivera MD Primary Care: Dr. Panda Littlejohn MD Statu s: ADM IN Referring Dr: Sex: F C Stress Test Report Date: 08/17/2024 Procedure: Pharmacologic stress nuclear imaging study Indications: Elevated troponin Consent: Per the patient Procedure: The patient underwent pharmacologic (Regadenoson) evaluation with a peak heart rate of 105 beats per minute (72%predicted maximal heart rate) and a peak blood pressure of 152/82 mmHg. The baseline ECG demonstrated normal sinus rhythm. EKG during lexiscan infusionrevealed no significant ischemic changes. EKG post infusion revealed no significant ischemic changes [There were no cardiac dysrhythmias pretest, during pharmacologic infusion, or recovery]. [There was no complaint of chest discomfort during pharmacologic infusion or recovery]. The examination was discontinued secondary to completion of protocol. Impression: 1. Lexiscan stress test test is negative for Lexiscan infusion induced EKG changes of ischemia. 2. Lexiscan stress test test is negative for Lexiscan infusion induced chest pain. 3. Results of the nuclear portion of the test is as below Myocardial perfusion imaging study: Technique: The patient was injected with 14.9 millicuries of technetium 99m Cardiolite and subsequently rest SPECT Cardiolite nuclear imaging was obtained in the horizontal long, vertical long, and short axis views. The patient underwent pharmacologic [Regadenoson 0.4mg] evaluation. Please see above for details. Thepatient was injected with 44.5 millicuries of technetium 99m Cardiolite and subsequently stress SPECT Cardiolite nuclear imaging was obtained in the horizontal long, vertical long, and short axis views. A gated Cardiolite study at peak stress was obtained. Interpretation: Rest and stress SPECT Cardiolite nuclear imaging status post realignment, normalization, and attenuation correction demonstrate decreased uptake in the apex on both the rest and stress images. Gated images reveal hypokinesis of theapex, anterior wall, septum and inferior wall. The reported LVEF is 56%. Thesefindings are suggestive of prior apical myocardial infarction. No significant ischemia noted. Impression: 1. There is no evidence of significant ischemia. 2. Estimated ejection fraction is 56%. This note was generated with Atempoation software. It may contain incorrectwords, spelling, and punctuation that were not noted in checking the note beforesigning. 08/17/24 1102 Date _ Dinesh Medina MD CC: Dr. Rubina Saini MD; Dr. Ibeth Parker MD; Dr. Lc Head MD; Dr. Panda Littlejohn MD; Dr. Segundo Juarez DO ~ Date Dictated: 08/17/24 1058 Date Transcribed: 08/17/241057 Statistics Intern: NN Signed [facility] Work Phone: Chloride assayOrdered By: Marquez Head on 08-17-2024 Chloride [Moles/Vol] 99 mmol/L 98-108 [facility] Electrocardiogram reportOrde red By: Benito Bright on 08-17-2024 EKG study [facility] Cardiovascular Services [address] [place] [address] 12 Lead EKG 08/15/24 1146 MR#: [id number] Acct: [id number] Name: ADRIENNE MORRISON Rep #:[id number] : 1950 74 From: Benito keenan MD Attending Dr: Dr. Lc Head MD Status: ADM IN Ordering Dr: Lc Head MD [place]: [place] [facility] [place] Sex[place] F C Admitted: 08/13/24 Test Reason : RHYTHM CHANGE Blood Pressure : */* mmHG Vent. Rate : 104 BPM Atrial Rate : 104 BPM P-R Int : 182 ms QRS Dur : 82 ms QT Int : 310 ms P-R-T Axes : 20 -3 -15 degrees QTcB Int : 407 ms Sinus tachycardia Nonspecific T wave abnormality Abnormal ECG When compared with ECG of 13-Aug-2024 15:47, CT interval has decreased Confirmed by Benito Bright ([id number]), news assignment editor DIA FENG ([id number]) on :01:59 PM Referred By: ADILENE Confirmed By: Benito Bright 08/17/24 1302 Date _ Benito Bright MD CC: Dr. Lc Head MD; Dr. Panda Littlejohn MD ~ Signed [facility] Work Phone: EKG study [facility] Cardiovascular Services [address] [place] [address] 12 Lead EKG 08/17/24 0600 MR#: [id number] Acct: [id number] Name: ADRINENE MORRISON Rep #:[id number] : 1950 74 From: Benito keenan MD Attending Dr: Dr. Lc Head MD Status: ADM IN Ordering Dr: Lc Head MD Date: [place] [facility] [place] Sex: F C Admitted: 08/13/24 Test Reason : PRE OP Blood Pressure : */* mmHG Vent. Rate : 65 BPM Atrial Rate : 65 BPM P-R Int : 184 ms QRS Dur : 104 ms QT Int : 426 ms P-R-T Axes : 18 -2 -7 degrees QTcB Int : 443 ms Normal sinus rhythm Cannot rule out Anterior infarct , age undetermined Abnormal ECG When compared with ECG of 15-Aug-2024 11:46, MANUAL COMPARISON REQUIRED DATA IS UNCONFIRMED Confirmed by Benito Bright ([id number]), news assignment editor DIA FENG ([id number]) on :01:51 PM Referred By: Confirmed By: Benito Bright 08/17/24 1301 Date _ Benito Bright MD CC: Dr. Lc Head MD; Dr. Panda Littlejohn MD ~ Signed [facility] Work Phone: [phone] Eosinophil percentageOrdered By: Lc Head on 08-17-2024 Eosinophils/100 WBC (Bld) 1.0 % 0-5 [facility] Erythrocyte distribution wid th ratioOrdered By: Lc Head on 08-17-2024 Erythrocyte distribution width (RBC) [Ratio] 15.7 % High 11.6-14.6 [facility] Erythrocyte distribution wid th standard deviationOrdered By: Lc Head on 08-17-2024 Erythrocyte distribution width (RBC) [Entitic vol] 56.3 fL High 35.1-43.9 [facility] Estimation of creatinine alina aranceOrdered By: Lc Head on 08-17-2024 Estimated Creatinine Clearance Calc 79.21 ml/min 50-250 [facility] GFR/1.73 sq M.predicted millie g non-blacks MDRD (S/P/Bld) [Vol rate/Area]Ordered By: Lc Head on 08-17-2024 Estimated GFR (MDRD) Non-Af Amer 72 >60 [facility] Comment on above: mL/min/1.73m2 CKD-EP I Creatinine Equation (2020) Hematocrit Auto (Bld) [Volum e fraction]Ordered By: Lc Head on 08-17-2024 Hematocrit (Bld) [Volume fraction] 31.2 % Low 37-47 [facility] Hemoglobin measurementOrdere d By: Lc Head on 08-17-2024 Hemoglobin (Bld) [Mass/Vol] 10.2 g/dL Low 12.0-15.0 [facility] Immature granulocytes/100 WB C Auto (Bld)Ordered By: Lc Head on 08-17-2024 Immature granulocytes/100 WBC (Bld) 0.600 % 0.0-0.9 [facility] Comment on above: IG% - Immature Granu locytes (promyelocytes, myelocytes and metamyelocytes) > 1% indicates that a LEFT SHIFT is Present. Lymphocytes Auto (Unsp spec) [#/Vol]Ordered By: Lc Head on 08-17-2024 Lymphocytes (Bld) [#/Vol] 0.87 10*3/uL 0.83-4.51 [facility] Lymphocytes/100 WBC Auto (Un sp spec)Ordered By: Lc Head on 08-17-2024 Lymphocytes/100 WBC (Bld) 11.3 % Low 19-41 [facility] MCV (mean corpuscular volume ) determinationOrdered By: Lc Head on 08-17-2024 MCV (RBC) [Entitic vol] 99.0 fL 81-99 [facility] Mean corpuscular hemoglobin (MCH) determinationOrdered By: Lc Head on 08-17-2024 MCH (RBC) [Entitic mass] 32.4 pg High 27.0-32.0 [facility] Mean corpuscular hemoglobin concentration (MCHC) determinationOrdered By: Lc Head on 08-17-2024 MCHC (RBC) [Mass/Vol] 32.7 g/dL 32-36 [facility] Mean platelet volume determi nationOrdered By: Lc Head on 08-17-2024 Platelet mean volume (Bld) [Entitic vol] 10.5 fL 6.2-12.0 [facility] Monocyte percentageOrdered B y: Lc Head on 08-17-2024 Monocytes/100 WBC (Bld) 6.9 % 0-10 [facility] Neutrophil percentageOrdered By: Lc Head on 08-17-2024 Neutrophils/100 WBC (Bld) 79.9 % High 47-70 [facility] Nucleated red blood cell per centageOrdered By: Lc Head on 08-17-2024 Nucleated RBC/100 WBC (Bld) [Ratio] 0.3 % 0-5 [facility] Platelet countOrdered By: Marquez Head on 08-17-2024 Platelets (Bld) [#/Vol] 209 10*3/uL 150-450 [facility] Potassium (Unsp spec) [Mass/ Vol]Ordered By: Lc Head on 08-17-2024 Potassium [Moles/Vol] 3.6 mmol/L 3.3-5.1 [facility] RBC Auto (Bld) [#/Vol]Ordere d By: Lc Head on 08-17-2024 RBC (Bld) [#/Vol] 3.15 10*6/uL Low 4.2-5.[address] [facility] Respiratory Cultureon 2024 RESPC Normal [facility] Comment on above: Performed By: #### M 100.2000, M100.2400 ####[facility] [address] [place], [address] Serum creatinine measurement (mass/volume)Ordered By: Lc Head on 08-17-2024 Creatinine [Mass/Vol] 0.85 mg/dL 0.70-1.20 [facility] Serum glucose measurement (m ass/volume)Ordered By: Lc Head on 08-17-2024 Glucose [Mass/Vol] 134 mg/dL High 70-99 [facility] Serum or plasma calcium jerod urement (mass/volume)Ordered By: Lc Head on 08-17-2024 Calcium [Mass/Vol] 9.0 mg/dL 7.6-11.0 [facility] Serum or plasma urea nitroge n measurement (mass/volume)Ordered By: Lc Head on 08-17-2024 Urea nitrogen [Mass/Vol] 35 mg/dL High 4-19 [facility] Sodium levelOrdered By: Barron Head on 08-17-2024 Sodium [Moles/Vol] 143 mmol/L 133-145 [facility] Stress Reporton 08-17-2024 Stress Report Normal [facility] Venous duplex ultrasound rep ortOrdered By: Dallas Morris on 08-17-2024 US Vein [facility] Services [address] [place] [address] Venous Duplex US - Ambrose Extrem 08/14/24 0918 MR#: [id number] Acct: [id number] Name: ADRIENNE MORRISON Rep #:[id number] : 1950 74 From: Dallas Gar Attending Dr: Dr. Lc Head MD Status: ADM IN Ordering Dr: Ibeth Parker MD Date: 08/14/24 Location: [facility] Sex: F C Admitted: 08/13/24 Reason For Study Reason For Study: Elevated D Dimer RIGHT LEFT GSV is normal. GSV is normal. CFV is compressible, spontaneous, phasic, competent CFV is compressible, spontaneous, phasic, competent, and demonstrates normal augmentation. and demonstrates normal augmentation. FV is compressible, spontaneous, phasic, competent FV is compressible, spontaneous, phasic, competent and demonstrates normal augmentation. and demonstrates normal augmentation. Unable to visualize mid/dist FV Unable to acquire compressions mid and dist FV but Unable to acquire compression on POP V but flow is flow is visualized in color and pulsed wave doppler. visualized in pulsed wave and color doppler. POP V is compressible, spontaneous, and phasic. Unable to visualize T/P Trunk. T/P Trunk is compressible. PTV is compressible. PTV is compressible. RT PerV is compressible. LT PerV is compressible. Procedure This is a venous duplex using B-mode, color flow and spectral Doppler. Exam performed portable in ICU/CCU. The exam was of poor technical quality due to Edema, patient body habitus, patient positioning, patient intolerance to compressions. Limited views were obtained. A preliminary report was called and/or faxed to [facility]. VL/Venous Duplex US - Ambrose Extrem Interpretation Summary Deep veins of the bilateral lower extremities are patent and compressible segmentally. There is no evidence of bilateral lower extremity deep vein thrombosis. The bilateral great saphenous veins appearpatent and compressible segmentally. Limited study Ordering Physician: Ibeth Parker Referring Physician: Panda Littlejohn Performed By: Corona Givens Michelle 08/17/24 0846 Date _ Dallas Morris MD CC: Dr. Ibeth Parker MD; Dr. Lc Head MD; Dr. Panda Littlejohn MD ~ Date Dictated: 08/14/24917 Date Transcribed: 08/17/24845 Statistics Intern: Signed [facility] Work Phone: White blood cell (WBC) count Ordered By: Lc Head on 08-17-2024 WBC (Bld) [#/Vol] 7.7 10*3/uL 4.4-11.0 [facility] Basic Metabolic Profile (BMP )on 08-16-2024 BUN/CRE 27.2 RATIO High 10-20 [facility] Comment on above: Performed By: #### L 500.2500, L100.0100 ####[facility] [address] [place], [address] Calcium [Mass/Vol] 8.6 mg/dL Normal 7.6-11.0 [facility] Comment on above: Performed By: #### L 500.2500, L100.0100 ####[facility] [address] [place], [address] Chloride [Moles/Vol] 101 mmol/L Normal 98-108 [facility] Comment on above: Performed By: #### L 500.2500, L100.0100 ####[facility] [address] [place], [address] CO2 [Moles/Vol] 24.7 mmol/L Normal 21.0-32.0 [facility] Comment on above: Performed By: #### L 500.2500, L100.0100 ####[facility] [address] [place], [address] Creatinine [Mass/Vol] 0.96 mg/dL Normal 0.70-1.20 [facility] Comment on above: Performed By: #### L 500.2500, L100.0100 ####[facility] [address] [place], [address] ECRCL 70.55 ml/min Normal 50-250 [facility] Comment on above: Performed By: #### L 500.2500, L100.0100 ####[facility] [address] [place], [address] GAP 14 Normal 5-15 [facility] Comment on above: Performed By: #### L 500.2500, L100.0100 ####[facility] [address] [place], [address] GFR/1.73 sq M.predicted among non-blacks MDRD (S/P/Bld) [Vol rate/Area] 61 mL/min/{1.73_m2} Normal >60 [facility] Comment on above: Result Comment: mL/m in/1.73m2 CKD-EPI Creatinine Equation (2020) Performed By: #### L 500.2500, L100.0100 ####[facility] [address], [address] Glucose [Mass/Vol] 111 mg/dL High 70-99 [facility] Comment on above: Performed By: #### L 500.2500, L100.0100 ####[facility] [address] [place], [address] Potassium [Moles/Vol] 3.8 mmol/L Normal 3.3-5.1 [facility] Comment on above: Performed By: #### L 500.2500, L100.0100 ####[facility] [address] [place], [address] Sodium [Moles/Vol] 139 mmol/L Normal 133-145 [facility] Comment on above: Performed By: #### L 500.2500, L100.0100 ####[facility] [address] [place], [address] Urea nitrogen [Mass/Vol] 26 mg/dL High 4-19 [facility] Comment on above: Performed By: #### L 500.2500, L100.0100 ####[facility] [address] [place], [address] CBC W/Diff, Automatedon 03-0 9-5 Absolute Lymph 0.82 X10 3/uL Low 0.83-4.51 [facility] Comment on above: Performed By: #### L 500.2500, L100.0100 ####[facility] [address] [place], [address] Absolute Neut 5.8 X10 3/uL Normal 2.0-7.7 [facility] Comment on above: Performed By: #### L 500.2500, L100.0100 ####[facility] [address] [place], [address] Basophils/100 WBC (Bld) 0.1 % Normal 0-1 [facility] Comment on above: Performed By: #### L 500.2500, L100.0100 ####[facility] [address] [place], [address] Eosinophils/100 WBC (Bld) 0.1 % Normal 0-5 [facility] Comment on above: Performed By: #### L 500.2500, L100.0100 ####[facility] [address] [place], [address] Erythrocyte distribution width (RBC) [Ratio] 15.9 % High 11.6-14.6 [facility] Comment on above: Performed By: #### L 500.2500, L100.0100 ####[facility] [address] [place], [address] Hematocrit (Bld) [Volume fraction] 29.2 % Low 37-47 [facility] Comment on above: Performed By: #### L 500.2500, L100.0100 ####[facility] [address] [place], [address] Hemoglobin (Bld) [Mass/Vol] 9.6 g/dL Low 12.0-15.0 [facility] Comment on above: Performed By: #### L 500.2500, L100.0100 ####[facility] [address] [place], [address] IG% 0.700 Normal 0.0-0.9 [facility] Comment on above: Result Comment: IG% - Immature Granulocytes (promyelocytes, myelocytes andmetamyelocytes) > 1% indicates that a LEFT SHIFT is Present. Performed By: #### L 500.2500, L100.0100 ####[facility] [address] [place], [address] Lymphocytes/100 WBC (Bld) 11.5 % Low 19-41 [facility] Comment on above: Performed By: #### L 500.2500, L100.0100 ####[facility] [address] [place], [address] MCH (RBC) [Entitic mass] 32.4 pg High 27.0-32.0 [facility] Comment on above: Performed By: #### L 500.2500, L100.0100 ####[facility] [address] [place], [address] MCHC (RBC) [Mass/Vol] 32.9 g/dL Normal 32-36 [facility] Comment on above: Performed By: #### L 500.2500, L100.0100 ####[facility] [address] [place], [address] MCV (RBC) [Entitic vol] 98.6 fL Normal 81-99 [facility] Comment on above: Performed By: #### L 500.2500, L100.0100 ####[facility] [address] [place], [address] Monocytes/100 WBC (Bld) 6.2 % Normal 0-10 [facility] Comment on above: Performed By: #### L 500.2500, L100.0100 ####[facility] [address] [place], [address] Neutrophils/100 WBC (Bld) 81.4 % High 47-70 [facility] Comment on above: Performed By: #### L 500.2500, L100.0100 ####[facility] [address] [place], [address] Nucleated RBC (Bld) [#/Vol] 0 10*3/uL Normal 0-5 [facility] Comment on above: Performed By: #### L 500.2500, L100.0100 ####[facility] [address] [place], [address] Platelet mean volume (Bld) [Entitic vol] 10.8 fL Normal 6.2-12.0 [facility] Comment on above: Performed By: #### L 500.2500, L100.0100 ####[facility] [address] [place], [address] Platelets (Bld) [#/Vol] 163 10*3/uL Normal 150-450 [facility] Comment on above: Performed By: #### L 500.2500, L100.0100 ####[facility] [address] [place], [address] RBC (Bld) [#/Vol] 2.96 10*6/uL Low 4.2-5.[address] [facility] Comment on above: Performed By: #### L 500.2500, L100.0100 ####[facility] [address] [place], [address] RDW SD 57.5 fl High 35.1-43.9 [facility] Comment on above: Performed By: #### L 500.2500, L100.0100 ####[facility] [address] [place], [address] WBC (Bld) [#/Vol] 7.1 10*3/uL Normal 4.4-11.0 [facility] Comment on above: Performed By: #### L 500.2500, L100.0100 ####[facility] [address] [place], [address] Chest 1 View (Portable)on Chest 1 View (Portable) Normal [facility] 12 Lead EKGon 08-15-2024 12 Lead EKG Normal [facility] Bilirubin, totalOrdered By: Lc Head on 08-15-2024 Bilirubin [Mass/Vol] 0.18 mg/dL 0.00-1.30 [facility] CBC-Complete Blood Cnt No Di ffon 08-15-2024 Erythrocyte distribution width (RBC) [Ratio] 16.0 % High 11.6-14.6 [facility] Comment on above: Performed By: #### L 501.2300, L100.0500 ####[facility] [address] [place], [address] Hematocrit (Bld) [Volume fraction] 29.6 % Low 37-47 [facility] Comment on above: Performed By: #### L 501.2300, L100.0500 ####[facility] [address] [place], [address] Hemoglobin (Bld) [Mass/Vol] 9.5 g/dL Low 12.0-15.0 [facility] Comment on above: Performed By: #### L 501.2300, L100.0500 ####[facility] [address] [place], [address] MCH (RBC) [Entitic mass] 32.0 pg Normal 27.0-32.0 [facility] Comment on above: Performed By: #### L 501.2300, L100.0500 ####[facility] [address] [place], [address] MCHC (RBC) [Mass/Vol] 32.1 g/dL Normal 32-36 [facility] Comment on above: Performed By: #### L 501.2300, L100.0500 ####[facility] [address] [place], [address] MCV (RBC) [Entitic vol] 99.7 fL High 81-99 [facility] Comment on above: Performed By: #### L 501.2300, L100.0500 ####[facility] [address] [place], [address] Platelet mean volume (Bld) [Entitic vol] 11.1 fL Normal 6.2-12.0 [facility] Comment on above: Performed By: #### L 501.2300, L100.0500 ####[facility] [address] [place], [address] Platelets (Bld) [#/Vol] 160 10*3/uL Normal 150-450 [facility] Comment on above: Performed By: #### L 501.2300, L100.0500 ####[facility] [address] [place], [address] RBC (Bld) [#/Vol] 2.97 10*6/uL Low 4.2-5.[address] [facility] Comment on above: Performed By: #### L 501.2300, L100.0500 ####[facility] [address] [place], [address] RDW SD 58.9 fl High 35.1-43.9 [facility] Comment on above: Performed By: #### L 501.2300, L100.0500 ####[facility] [address] [place], [address] WBC (Bld) [#/Vol] 9.9 10*3/uL Normal 4.4-11.0 [facility] Comment on above: Performed By: #### L 501.2300, L100.0500 ####[facility] [address] [place], [address] Comprehensive Metabolic Prof ilon 08-15-2024 Albumin [Mass/Vol] 3.6 g/dL Normal 3.4-4.8 [facility] Comment on above: Performed By: #### L 500.4050, L501.5200 ####[facility] [address] [place], [address] Albumin/Globulin [Mass ratio] 1.1 {ratio} Normal 0.9-2.4 [facility] Comment on above: Performed By: #### L 500.4050, L501.5200 ####[facility] [address] [place], [address] ALK PHOS 100 U/L Normal 35-104 [facility] Comment on above: Performed By: #### L 500.4050, L501.5200 ####[facility] [address] [place], [address] ALT [Catalytic activity/Vol] 19 U/L Normal <=34 [facility] Comment on above: Performed By: #### L 500.4050, L501.5200 ####[facility] [address] [place], [address] AST [Catalytic activity/Vol] 42 U/L High <=31 [facility] Comment on above: Performed By: #### L 500.4050, L501.5200 ####[facility] [address] [place], [address] Bilirubin [Mass/Vol] 0.18 mg/dL Normal 0.00-1.30 [facility] Comment on above: Performed By: #### L 500.4050, L501.5200 ####[facility] [address] [place], [address] BUN/CRE 30.8 RATIO High 10-20 [facility] Comment on above: Performed By: #### L 500.4050, L501.5200 ####[facility] [address] [place], [address] Calcium [Mass/Vol] 8.5 mg/dL Normal 7.6-11.0 [facility] Comment on above: Performed By: #### L 500.4050, L501.5200 ####[facility] [address] [place], [address] Chloride [Moles/Vol] 103 mmol/L Normal 98-108 [facility] Comment on above: Performed By: #### L 500.4050, L501.5200 ####[facility] [address] [place], [address] CO2 [Moles/Vol] 24.6 mmol/L Normal 21.0-32.0 [facility] Comment on above: Performed By: #### L 500.4050, L501.5200 ####[facility] [address] [place], [address] Creatinine [Mass/Vol] 1.01 mg/dL Normal 0.70-1.20 [facility] Comment on above: Performed By: #### L 500.4050, L501.5200 ####[facility] [address] [place], [address] ECRCL 67.06 ml/min Normal 50-250 [facility] Comment on above: Performed By: #### L 500.4050, L501.5200 ####[facility] [address] [place], [address] GAP 11 Normal 5-15 [facility] Comment on above: Performed By: #### L 500.4050, L501.5200 ####[facility] [address] [place], [address] GFR/1.73 sq M.predicted among non-blacks MDRD (S/P/Bld) [Vol rate/Area] 58 mL/min/{1.73_m2} Low >60 [facility] Comment on above: Result Comment: mL/m in/1.73m2 CKD-EPI Creatinine Equation (2020) Performed By: #### L 500.4050, L501.5200 ####[facility] [address] [place], [address] Globulin (S) [Mass/Vol] 3.2 g/dL Normal 2.2-4.2 [facility] Comment on above: Performed By: #### L 500.4050, L501.5200 ####[facility] [address] [place], [address] Glucose [Mass/Vol] 101 mg/dL High 70-99 [facility] Comment on above: Performed By: #### L 500.4050, L501.5200 ####[facility] [address] [place], [address] Potassium [Moles/Vol] 3.9 mmol/L Normal 3.3-5.1 [facility] Comment on above: Performed By: #### L 500.4050, L501.5200 ####[facility] [address] [place], [address] Sodium [Moles/Vol] 139 mmol/L Normal 133-145 [facility] Comment on above: Performed By: #### L 500.4050, L501.5200 ####[facility] [address] [place], [address] T PROT 6.8 g/dL Normal 5.9-8.4 [facility] Comment on above: Performed By: #### L 500.4050, L501.5200 ####[facility] [address] [place], [place], [address] Urea nitrogen [Mass/Vol] 31 mg/dL High 4-19 [facility] Comment on above: Performed By: #### L 500.4050, L501.5200 ####[facility] [address] [place], [place], [address] Laboratory - Chemistry and C hemistry - challengeOrdered By: Lc Head on 08-15-2024 AST [Catalytic activity/Vol] 42 U/L High <32 [facility] Magnesiumon 08-15-2024 Magnesium [Mass/Vol] 1.9 mg/dL Normal 1.5-2.2 [facility] Comment on above: Performed By: #### L 500.4050, L501.5200 ####[facility] [address] [place], [place], [address] Magnesium (Unsp spec) [Mass/ Vol]Ordered By: Lc Head on 08-15-2024 Magnesium [Mass/Vol] 1.9 mg/dL 1.5-2.2 [facility] Phosphoruson 08-15-2024 Phosphate [Mass/Vol] 2.5 mg/dL Low 2.7-4.5 [facility] Comment on above: Performed By: #### L 501.2300, L100.0500 ####[facility] [address] [place], [place], [address] Serum globulin measurementOr dered By: Lc Head on 08-15-2024 Globulin (S) [Mass/Vol] 3.2 g/dL 2.2-4.2 [facility] Serum or plasma alanine barrientos otransferase (ALT) measurementOrdered By: Lc Haed on 08-15-2024 ALT [Catalytic activity/Vol] 19 U/L <35 [facility] Serum or plasma albumin jerod urement (mass/volume)Ordered By: Lc Head on 08-15-2024 Albumin [Mass/Vol] 3.6 g/dL 3.4-4.8 [facility] Serum or plasma albumin/glob ulin mass ratioOrdered By: Lc Head on 08-15-2024 Albumin/Globulin [Mass ratio] 1.1 {ratio} 0.9-2.4 [facility] Serum or plasma alkaline mingo sphatase measurementOrdered By: Lc Head on 08-15-2024 ALP [Catalytic activity/Vol] 100 U/L 35-104 [facility] Serum phosphorus measurement Ordered By: Lc Head on 08-15-2024 Phosphorus Level 2.5 mg/dL Low 2.7-4.5 [facility] Total proteinOrdered By: Benjamin Head on 08-15-2024 Protein [Mass/Vol] 6.8 g/dL 5.9-8.4 [facility] Urine Cultureon 08-15-2024 URC Normal [facility] Comment on above: Performed By: #### L 400.0001, M100.2200 ####[facility] [address] [place], [address] Vancomycin trough [Mass/Vol] Ordered By: Ibeth Parker on 08-15-2024 Vancomycin Level Trough 19.2 ug/mL High 5.0-15.0 [facility] Comment on above: Recommended goal tro ugh ranges are generally 10-15 mcg/ml for less severe/complicated infections such as cellulitis or UTI and 15-20 mcg/ml for more severe/complicated infections such as bacteremia/sepsis, osteomyelitis, pneumonia or meningitis. Goal trough ranges should take into account indication, patient-specific factors and organism GABRIEL.VANCOMYCIN STANDARED DRUG THERAPY TROUGH LEVEL: 5.0 - 15.0 mg/L VANCOMYCIN HIGH INTENSITY THERAPY TROUGH LEVEL: 15.0 - 20.0 mg/L High Intensity therapy recommended for serious lifethreatening infections include:- Zukocyxufj-Cjcngtzhgcbq-Bphzpdqih (Ventilator/Healtcare Associated)-Sepsis PLEASE CONTACT PHARMACY SERVICES (#[id number]) FOR INTERPRETATIONOF RESULTS. Vancomycin, Trough Levelon 0 08-15-2024 VANCO, TROUGH 19.2 ug/mL High 5.0-15.0 [facility] Comment on above: Order Comment: Comme nts: Trough to be drawn 30 mins prior to scheduled [id number] Result Comment: Wu mmended goal trough ranges are generally 10-15 mcg/mlfor less severe/complicated infections such as cellulitisor UTI and 15-20 mcg/ml for more severe/complicatedinfections such as bacteremia/sepsis, osteomyelitis,pneumonia or meningitis. Goal trough ranges should takeinto account indication, patient-specific factors andorganism GABRIEL.VANCOMYCIN STANDARED DRUG THERAPY TROUGH LEVEL: 5.0 - 15.0 mg/LVANCOMYCIN HIGH INTENSITY THERAPY TROUGH LEVEL: 15.0 - 20.0 mg/LHigh Intensity therapy recommended for serious lifethreatening infections include:- Duapciercs-Glzfrapohnuh-Ptkimflaf (Ventilator/Healtcare Associated)-SepsisPLEASE CONTACT PHARMACY SERVICES (#[id number]) FOR INTERPRETATIONOF RESULTS. Performed By: #### L 501.8820 ####[facility] [address] [place], [address] CBC W/Diff, Automatedon 03-0 7-2024 Absolute Lymph 0.70 X10 3/uL Low 0.83-4.51 [facility] Comment on above: Performed By: #### L 500.4050, L500.4100, L100.0100, L501.9520 ####[facility] [address] [place], [address] Absolute Neut 11.3 X10 3/uL High 2.0-7.7 [facility] Comment on above: Performed By: #### L 500.4050, L500.4100, L100.0100, L501.9520 ####[facility] [address] [place], [address] Basophils/100 WBC (Bld) 0.2 % Normal 0-1 [facility] Comment on above: Performed By: #### L 500.4050, L500.4100, L100.0100, L501.9520 ####[facility] [address] [place], [address] Eosinophils/100 WBC (Bld) 0.2 % Normal 0-5 [facility] Comment on above: Performed By: #### L 500.4050, L500.4100, L100.0100, L501.9520 ####[facility] [address] [place], [address] Erythrocyte distribution width (RBC) [Ratio] 15.9 % High 11.6-14.6 [facility] Comment on above: Performed By: #### L 500.4050, L500.4100, L100.0100, L501.9520 ####[facility] [address] [place], [address] Hematocrit (Bld) [Volume fraction] 31.8 % Low 37-47 [facility] Comment on above: Performed By: #### L 500.4050, L500.4100, L100.0100, L501.9520 ####[facility] [address] [place], [address] Hemoglobin (Bld) [Mass/Vol] 10.2 g/dL Low 12.0-15.0 [facility] Comment on above: Performed By: #### L 500.4050, L500.4100, L100.0100, L501.9520 ####[facility] [address] [place], [address] IG% 0.500 Normal 0.0-0.9 [facility] Comment on above: Result Comment: IG% - Immature Granulocytes (promyelocytes, myelocytes andmetamyelocytes) > 1% indicates that a LEFT SHIFT is Present. Performed By: #### L 500.4050, L500.4100, L100.0100, L501.9520 ####[facility] [address] [place], [address] Lymphocytes/100 WBC (Bld) 5.5 % Low 19-41 [facility] Comment on above: Performed By: #### L 500.4050, L500.4100, L100.0100, L501.9520 ####[facility] [address] [place], [address] MCH (RBC) [Entitic mass] 31.9 pg Normal 27.0-32.0 [facility] Comment on above: Performed By: #### L 500.4050, L500.4100, L100.0100, L501.9520 ####[facility] [address] [place], [address] MCHC (RBC) [Mass/Vol] 32.1 g/dL Normal 32-36 [facility] Comment on above: Performed By: #### L 500.4050, L500.4100, L100.0100, L501.9520 ####[facility] [address] [place], [address] MCV (RBC) [Entitic vol] 99.4 fL High 81-99 [facility] Comment on above: Performed By: #### L 500.4050, L500.4100, L100.0100, L501.9520 ####[facility] [address] [place], [address] Monocytes/100 WBC (Bld) 5.6 % Normal 0-10 [facility] Comment on above: Performed By: #### L 500.4050, L500.4100, L100.0100, L501.9520 ####[facility] [address] [place], [address] Neutrophils/100 WBC (Bld) 88.0 % High 47-70 [facility] Comment on above: Performed By: #### L 500.4050, L500.4100, L100.0100, L501.9520 ####[facility] [address] [place], [address] Nucleated RBC (Bld) [#/Vol] 0 10*3/uL Normal 0-5 [facility] Comment on above: Performed By: #### L 500.4050, L500.4100, L100.0100, L501.9520 ####[facility] [address] [place], [address] Platelet mean volume (Bld) [Entitic vol] 10.6 fL Normal 6.2-12.0 [facility] Comment on above: Performed By: #### L 500.4050, L500.4100, L100.0100, L501.9520 ####[facility] [address] [place], [address] Platelets (Bld) [#/Vol] 145 10*3/uL Low 150-450 [facility] Comment on above: Performed By: #### L 500.4050, L500.4100, L100.0100, L501.9520 ####[facility] [address] [place], [address] RBC (Bld) [#/Vol] 3.20 10*6/uL Low 4.2-5.[address] [facility] Comment on above: Performed By: #### L 500.4050, L500.4100, L100.0100, L501.9520 ####[facility] [address] [place], [address] RDW SD 58.2 fl High 35.1-43.9 [facility] Comment on above: Performed By: #### L 500.4050, L500.4100, L100.0100, L501.9520 ####[facility] [address] [place], [address] WBC (Bld) [#/Vol] 12.8 10*3/uL High 4.4-11.[address] [facility] Comment on above: Performed By: #### L 500.4050, L500.4100, L100.0100, L501.9520 ####[facility] [address] [place], [address] Absolute Neut Normal 2.0-7.7 [facility] Comment on above: Result Comment: Canc elled via OM: Duplicate Order Performed By: #### L 100.0100 ####[facility] [address] [place], [address] HCT Normal 37-47 [facility] Comment on above: Result Comment: Canc elled via OM: Duplicate Order Performed By: #### L 100.0100 ####[facility] [address] [place], [address] HGB Normal 12.0-15.0 [facility] Comment on above: Result Comment: Canc elled via OM: Duplicate Order Performed By: #### L 100.0100 ####[facility] [address] [place], [address] MCH Normal 27.0-32.0 [facility] Comment on above: Result Comment: Canc elled via OM: Duplicate Order Performed By: #### L 100.0100 ####[facility] [address] [place], [address] MCHC Normal 32-36 [facility] Comment on above: Result Comment: Canc elled via OM: Duplicate Order Performed By: #### L 100.0100 ####[facility] [address] [place], [address] MCV Normal 81-99 [facility] Comment on above: Result Comment: Canc elled via OM: Duplicate Order Performed By: #### L 100.0100 ####[facility] [address] [place], [address] NEUT% Normal 47-70 [facility] Comment on above: Result Comment: Canc elled via OM: Duplicate Order Performed By: #### L 100.0100 ####[facility] [address] [place], [address] PLT Normal 150-450 [facility] Comment on above: Result Comment: Canc elled via OM: Duplicate Order Performed By: #### L 100.0100 ####[facility] [address] [place], [address] RBC Normal 4.2-5.4 [facility] Comment on above: Result Comment: Canc elled via OM: Duplicate Order Performed By: #### L 100.0100 ####[facility] [address] [place], [address] RDW CV Normal 11.6-14.6 [facility] Comment on above: Result Comment: Canc elled via OM: Duplicate Order Performed By: #### L 100.0100 ####[facility] [address] [place], [address] RDW SD Normal 35.1-43.9 [facility] Comment on above: Result Comment: Canc elled via OM: Duplicate Order Performed By: #### L 100.0100 ####[facility] [address] [place], [address] WBC Normal 4.4-11.0 [facility] Comment on above: Result Comment: Canc elled via OM: Duplicate Order Performed By: #### L 100.0100 ####[facility] [address] [place], [address] Calculated very low density lipoprotein (VLDL) cholesterol measurementOrdered By: Ibeth Parker on 08-14-2024 VLDL Cholesterol 8 mg/dL 5-40 [facility] Comprehensive Metabolic Prof ilon 08-14-2024 Albumin [Mass/Vol] 3.7 g/dL Normal 3.4-4.8 [facility] Comment on above: Performed By: #### L 500.4050, L500.4100, L100.0100, L501.9520 ####[facility] [address] [place], [address] Albumin/Globulin [Mass ratio] 1.1 {ratio} Normal 0.9-2.4 [facility] Comment on above: Performed By: #### L 500.4050, L500.4100, L100.0100, L501.9520 ####[facility] [address] [place], [address] ALK PHOS 109 U/L High 35-104 [facility] Comment on above: Performed By: #### L 500.4050, L500.4100, L100.0100, L501.9520 ####[facility] [address] [place], [address] ALT [Catalytic activity/Vol] 22 U/L Normal <=34 [facility] Comment on above: Performed By: #### L 500.4050, L500.4100, L100.0100, L501.9520 ####[facility] [address] [place], [address] AST [Catalytic activity/Vol] 38 U/L High <=31 [facility] Comment on above: Performed By: #### L 500.4050, L500.4100, L100.0100, L501.9520 ####[facility] [address] [place], [address] BUN/CRE 21.5 RATIO High 10-20 [facility] Comment on above: Performed By: #### L 500.4050, L500.4100, L100.0100, L501.9520 ####[facility] [address] [place], [address] Calcium [Mass/Vol] 8.4 mg/dL Normal 7.6-11.0 [facility] Comment on above: Performed By: #### L 500.4050, L500.4100, L100.0100, L501.9520 ####[facility] [address] [place], [address] Chloride [Moles/Vol] 101 mmol/L Normal 98-108 [facility] Comment on above: Performed By: #### L 500.4050, L500.4100, L100.0100, L501.9520 ####[facility] [address] [place], [address] CO2 [Moles/Vol] 22.8 mmol/L Normal 21.0-32.0 [facility] Comment on above: Performed By: #### L 500.4050, L500.4100, L100.0100, L501.9520 ####[facility] [address] [place], [address] Creatinine [Mass/Vol] 1.55 mg/dL High 0.70-1.20 [facility] Comment on above: Performed By: #### L 500.4050, L500.4100, L100.0100, L501.9520 ####[facility] [address] [place], [address] ECRCL 43.56 ml/min Low 50-250 [facility] Comment on above: Performed By: #### L 500.4050, L500.4100, L100.0100, L501.9520 ####[facility] [address] [place], [address] GAP 16 High 5-15 [facility] Comment on above: Performed By: #### L 500.4050, L500.4100, L100.0100, L501.9520 ####[facility] [address] [place], [address] GFR/1.73 sq M.predicted among non-blacks MDRD (S/P/Bld) [Vol rate/Area] 35 mL/min/{1.73_m2} Low >60 [facility] Comment on above: Result Comment: mL/m in/1.73m2 CKD-EPI Creatinine Equation (2020) Performed By: #### L 500.4050, L500.4100, L100.0100, L501.9520 ####[facility] [address] [place], [address] Globulin (S) [Mass/Vol] 3.3 g/dL Normal 2.2-4.2 [facility] Comment on above: Performed By: #### L 500.4050, L500.4100, L100.0100, L501.9520 ####[facility] [address] [place], [address] Glucose [Mass/Vol] 114 mg/dL High 70-99 [facility] Comment on above: Performed By: #### L 500.4050, L500.4100, L100.0100, L501.9520 ####[facility] [address] [place], [address] Potassium [Moles/Vol] 4.5 mmol/L Normal 3.3-5.1 [facility] Comment on above: Performed By: #### L 500.4050, L500.4100, L100.0100, L501.9520 ####[facility] [address] [place], [address] Sodium [Moles/Vol] 140 mmol/L Normal 133-145 [facility] Comment on above: Performed By: #### L 500.4050, L500.4100, L100.0100, L501.9520 ####[facility] [address] [place], [address] T BILI < 0.15 Normal 0.00-1.30 [facility] Comment on above: Performed By: #### L 500.4050, L500.4100, L100.0100, L501.9520 ####[facility] [address] [place], [address] T PROT 7.0 g/dL Normal 5.9-8.4 [facility] Comment on above: Performed By: #### L 500.4050, L500.4100, L100.0100, L501.9520 ####[facility] [address] [place], [address] Urea nitrogen [Mass/Vol] 33 mg/dL High 4-19 [facility] Comment on above: Performed By: #### L 500.4050, L500.4100, L100.0100, L501.9520 ####[facility] [address] [place], [address] Consultation - Cardiologyon 08-14-2024 Consultation - Cardiology Normal [facility] Echocardiogram study reportO rdered By: Rubina Saini on 08-14-2024 Study report [facility] [address] [place] [address] Echo Complete W/ Contrast 08/14/24 0727 MR#: [id number] Acct: [id number] Name: ADRIENNE MORRISON Rep #:[id number] : 1950 74 From: Rubina Saini MD Attending Dr: Dr. Lc Head MD Status: ADM IN Ordering Dr: Paresh Brunson MD Date: 12/02 Location: ICU Sex: F C Admitted: 08/13/24 Reason For Study Reason For Study: CHF Procedure This was a 2D Doppler, Color Flow transthoracic echocardiogram. The patient was scanned supine. Unable to reposition patient due to morbid obesity. The study was technically difficult. The study was technically limited. Contrast injection was performed. Exam performed portable in ICU/CCU. Left Ventricle Normal LV size. Mild concentric left ventricular hypertrophy. The left ventricular ejection fraction is 60 %. Stage 1 diastolic dysfunction. Right Ventricle Moderately dilated RV with moderate systolic dysfunction. Atria The left atrium is moderately enlarged. The right atrium is not well visualized. Mitral Valve Mild (1+) mitral valve insufficiency. Tricuspid Valve Mild to moderate (1-2+) tricuspid valve insufficiency. Right ventricular systolic pressure estimated to be 50 mmHg. Aortic Valve The aortic valve is not well visualized in the short axis view. There is no aortic stenosis. No aortic valve insufficiency. Pulmonic Valve The pulmonic valve is not well visualized. Great Vessels Normal sized aortic root. Pericardium/Pleural No pericardial effusion. Medication Diluted definity 2.5ml given slow IV push to enhance endocardial definition. MMode/2D Measurements & Calculations LVIDd: 4.7 cm IVSd: 1.2 cm Ao root diam: 3.4 cm LVIDs: 3.5 cm LVPWd: 1.2 cm FS: 25.7 % LAV(MOD-sp4): 64.0 ml LVAd ap4: 22.2 cm2 SV(MOD-sp4): 30.9 ml LVLd ap4: 6.8 cm SI(MOD-sp4): 13.3 ml/m2 EDV(MOD-sp4): 60.3 ml EDV(sp4-el): 61.5 ml LVAs ap4: 14.8 cm2 LVLs ap4: 6.3 cm ESV(MOD-sp4): 29.4 ml ESV(sp4-el): 29.5 ml EF(MOD-sp4): 51.3 % EF(sp4-el): 52.0 % SV(sp4-el): 32.0 ml LA A4 area: 22.5 cm2 LA dimension(2D): 4.7 cm TAPSE: 2.1 cm Doppler Measurements & Calculations MV E max estelle: 101.7 cm/sec Lat Peak E' Estelle: 8.7 cm/sec Med Peak E' Estelle: 8.6 cm/sec MV A max estelle: 150.3 cm/sec E/E' lat: 11.7 E/E' med: 11.8 MV E/A: 0.68 MV V2 max: 153.1 cm/sec Ao V2 max: 210.3 cm/sec LV V1 max: 118.0 cm/sec MV max P.4 mmHg Ao max P.7 mmHg LV V1 max P.6 mmHg MV V2 mean: 97.1 cm/sec Ao V2 mean: 149.1 cm/sec LV V1 mean P.3 mmHg MV mean P.3 mmHg Ao mean P.8 mmHg LV V1 mean: 87.1 cm/sec MV V2 VTI: 33.4 cm Ao V2 VTI: 40.4 cm LV V1 VTI: 24.0 cm AV (velocity ratio): 0.59 PA V2 max: 93.1 cm/sec TR max estelle: 323.3 cm/sec PA V2 mean: 57.8 cm/sec TR max P.8 mmHg PA V2 VTI: 17.3 cm ECHO/Echo Complete W/ Contrast Interpretation Summary Technically difficult study secondary to body habitus with suboptimal images. Mild concentric left ventricular hypertrophy. The left ventricular ejection fraction is 60 %. Stage 1 diastolic dysfunction. Moderately dilated RV with moderate systolic dysfunction. The left atrium is moderately enlarged. Mild (1+) mitral valve insufficiency. Mild to moderate (1-2+) tricuspid valve insufficiency. Right ventricular systolic pressure estimated to be 50 mmHg. Ordering Physician: Paresh Brunson Referring Physician: Panda Littlejohn Performed By: Ghazal Newman, TIFFANI, RVT 08/14/24 1115 Date _ Rubina Saini MD CC: Dr. Lc Head MD; Dr. Panda Littlejohn MD; Dr. Paresh Brunson MD ~ Date Dictated: 08/14/24726 Date Transcribed: 08/14/241114 Statistics Intern: Signed [facility] Work Phone: Gram Stainon 08-14-2024 GS Not obtained in 1 hr , induce w/nebulized 0.9% NaCL Acceptable Specimen? Yes (<25 Epithelial cells per/lpf) Gram Stain 1+ White Blood Cells 2+ Epithelial cells 1+ Gram positive cocci Normal [facility] Comment on above: Performed By: #### M 100.2000, M100.2400 ####[facility] [address] [place], [address] Gram stainOrdered By: Ibeth Parker on 08-14-2024 Microscopic observation Gram stain Nom (Unsp spec) [facility] L503.7505on 08-14-2024 Natriuretic peptide B (Bld) [Mass/Vol] 3934 pg/mL High <=1800 [facility] Comment on above: Result Comment: Hear t Failure Unlikely: < 300 pg/mLHeart Failure Likely< 50 Years: > 450 pg/mL50-75 Years: > 900 pg/mL>75 Years: > 1800 pg/mL Performed By: #### L 503.7505, L509.7004 ####[facility] [address] [place], [place], [id number] L509.7000on 08-14-2024 Procalcitonin 0.39 ng/mL High <=0.10 [facility] Comment on above: Result Comment: Inte rpretation:<0.10-0.25 ng/mL: Antibiotic therapy discouraged. Bacterialinfection unlikely.0.25-0.50 ng/mL: Antibiotic therapy encouraged. Bacterialinfection possible.>0.50 ng/mL: Antibiotic therapy strongly encouraged.Suggestive of presence of bacterial infection.PCT should always be interpreted in the clinical context ofthe patient. Therefore, clinicians should use the PCTresults in conjunction with other laboratory findings andclinical signs of the patient. Performed By: #### L 503.7505, L509.7001 ####[facility] [address] [place], [place], [address] LDL calc ser/plasOrdered By: Ibeth Parker on 08-14-2024 LDL Cholesterol, Calculated 77 mg/dL [facility] Comment on above: Nvkusvrjeq=319-808 m g/dL & Higher Uyks=230 mg/dL or greater Laboratory - Chemistry and C hemistry - challengeOrdered By: Teddy Saldana on 08-14-2024 Natriuretic peptide B (Bld) [Mass/Vol] 3934 pg/mL High <1800 [facility] Comment on above: Heart Failure Unlike ly: < 300 pg/mLHeart Failure Likely< 50 Years: > 450 pg/mL50-75 Years: > 900 pg/mL>75 Years: > 1800 pg/mL Lipid Profileon 08-14-2024 CHOL:HDL 1.85 Normal [facility] Comment on above: Performed By: #### L 500.4050, L500.4100, L100.0100, L501.9520 ####[facility] [address] [place], [address] Cholesterol [Mass/Vol] 183 mg/dL Normal <=200 [facility] Comment on above: Result Comment: Chol esterol level, Desirable <200 mg/dLBorderline high cholesterol 200-239 mg/dLHigh cholesterol >=240 mg/dLRecommendations of the NCEP Adult Treatment Panel for thefollowing risk-cutoff thresholds for the [place] Americanpulation. Performed By: #### L 500.4050, L500.4100, L100.0100, L501.9520 ####[facility] [address] [place], [address] Cholesterol in HDL [Mass/Vol] 99 mg/dL Normal [facility] Comment on above: Result Comment: Mi onal Cholesterol Education Program (NCEP) guidelines:<40 mg/dL: Low HDL-cholesterol (major risk factor for CHD)>= 60 mg/dL: High HDL-cholesterol (negative risk factor forCHD)HDL-cholesterol is affected by a number of factors, e.g.smoking, exercise, hormones, sex and age. Performed By: #### L 500.4050, L500.4100, L100.0100, L501.9520 ####[facility] [address] [place], [address] Cholesterol in LDL [Mass/Vol] 77 mg/dL Normal [facility] Comment on above: Result Comment: Bord rcznfn=501-909 mg/dL Higher Flou=980 mg/dL or greater Performed By: #### L 500.4050, L500.4100, L100.0100, L501.9520 ####[facility] [address] [place], [address] Cholesterol in VLDL [Mass/Vol] 8 mg/dL Normal 5-40 [facility] Comment on above: Performed By: #### L 500.4050, L500.4100, L100.0100, L501.9520 ####[facility] [address] [place], [address] Triglyceride [Mass/Vol] 38 mg/dL Normal [facility] Comment on above: Result Comment: The drugs N-Acetylcysteine and Metamizole may falselydepress this assay.Normal range: <150 mg/dLBorderline High: 150-199 mg/dLHigh: 200-499 mg/dLVery High: >500 mg/dL Performed By: #### L 500.4050, L500.4100, L100.0100, L501.9520 ####[facility] [address] [place], [place], [id number] Lung Scan Vent/Perfon 2024 Lung Scan Vent/Perf Normal [facility] Microorganism identified Cx Nom (Unsp spec)Ordered By: Ibeth Parker on 08-14-2024 Respiratory Culture Streptococcus agalactiae (B) Abnormal [facility] Modified Barium Swallow Stud yon 08-14-2024 Modified Barium Swallow Study Normal [facility] No Panel InformationOrdered By: Teddy Saldana on 08-14-2024 Procalcitonin 0.39 ng/mL High <0.11 [facility] Comment on above: Interpretation:<0.10 -0.25 ng/mL: Antibiotic therapy discouraged. Bacterial infection unlikely.0.25-0.50 ng/mL: Antibiotic therapy encouraged. Bacterial infection possible.>0.50 ng/mL: Antibiotic therapy strongly encouraged. Suggestive of presence of bacterial infection.PCT should always be interpreted in the clinical context of the patient. Therefore, clinicians should use the PCT results in conjunction with other laboratory findings and clinical signs of the patient. Partial Thromboplast Timeon 08-14-2024 aPTT Coag (Bld) [Time] s Invalid Interpretation Code 24.1-36.2 [facility] Comment on above: Result Comment: CRIT ICAL VALUE CALLED TO GARO08/14/24 1349 Latha Araujo.RESULTS READ BACK BY . Performed By: #### L 300.4310 ####[facility] [address] [place], [place], [id number] aPTT Coag (Bld) [Time] s Invalid Interpretation Code 24.1-36.2 [facility] Comment on above: Result Comment: CRIT ICAL VALUE CALLED TO [id number]/07/25 0347 Rnye Alfonso Lange.RESULTS READ BACK BY SAME. Performed By: #### L 300.4310 ####[facility] [address] [place], [place], [id number] RESPIRATORY PANEL MOLECULARo n 08-14-2024 RP PANEL Normal [facility] Comment on above: Performed By: #### M 100.638 ####[facility] [address] [place], [place], [id number] Screening total cholesterol/ high density lipoprotein (HDL) cholesterol ratioOrdered By: Ibeth Parker on 08-14-2024 Cholesterol.total/Brittany sterol in HDL [Mass ratio] 1.85 {ratio} [facility] Serum or plasma cholesterol in HDL measurement (mass/volume)Ordered By: Ibeth Parker on 08-14-2024 Cholesterol in HDL [Mass/Vol] 99 mg/dL >40 [facility] Comment on above: National Cholesterol Education Program (NCEP) guidelines:<40 mg/dL: Low HDL-cholesterol (major risk factor for CHD)>= 60 mg/dL: High HDL-cholesterol (negative risk factor for CHD)HDL-cholesterol is affected by a number of factors, e.g. smoking, exercise, hormones, sex and age. Serum or plasma cholesterol measurement (mass/volume)Ordered By: Ibeth Parker on 08-14-2024 Cholesterol [Mass/Vol] 183 mg/dL <201 [facility] Comment on above: Cholesterol level, D esirable <200 mg/dLBorderline high cholesterol 200-239 mg/dLHigh cholesterol >=240 mg/dLRecommendations of the NCEP Adult Treatment Panel for the following risk-cutoff thresholds for the [place] population. TSH DL <= 0.005 mIU/L QnOrde red By: Ibeth Parker on 08-14-2024 Thyroid Stimulating Hormone (TSH) 1.240 uIU/mL 0.300-4.200 [facility] Thyroid Stim Hormone (TSH)on 08-14-2024 TSH 1.240 uIU/mL Normal 0.300-4.200 [facility] Comment on above: Performed By: #### L 500.4050, L500.4100, L100.0100, L501.9520 ####[facility] [address] [place], [address] Triglycerides measurementOrd ered By: Ibeth Parker on 08-14-2024 Triglyceride [Mass/Vol] 38 mg/dL <199 [facility] Comment on above: The drugs N-Acetylcy steine and Metamizole may falsely depress this assay. Normal range: <150 mg/dLBorderline High: 150-199 mg/dLHigh: 200-499 mg/dLVery High: >500 mg/dL Venous Duplex US - Ambrose Extre mon 08-14-2024 Venous Duplex US - Ambrose Extrem Normal [facility] aPTT Coag (PPP) [Time]Ordere d By: Ibeth Parker on 08-14-2024 aPTT Coag (Bld) [Time] s High 24.1-36.2 [facility] Comment on above: CRITICAL VALUE PANIAGUA D TO GARO08/14/24 1349 Latha Araujo.RESULTS READ BACK BY . Absolute neutrophil countOrd ered By: Segundo Juarez on 08-13-2024 Neutrophils (Bld) [#/Vol] 13.6 10*3/uL High 2.0-7.7 [facility] Anion gap in Serum or Plasma Ordered By: Segundo Juarez on 08-13-2024 Anion gap [Moles/Vol] 17 mmol/L High 5-15 [facility] Arterial patency Wrist arter y --pre arterial punctureOrdered By: Segundo Juarez on 08-13-2024 Tera Test Positive [facility] BUN/creatinine ratioOrdered By: Segundo Juarez on 08-13-2024 Urea nitrogen/Creatinine [Mass ratio] 19.5 mg/mg 10-20 [facility] Base excess Calc (BldV) [Mol es/Vol]Ordered By: Segundo Juarez on 08-13-2024 Blood Gas Base Excess -1 mmol/L -2-2 [facility] Basophil percentageOrdered B y: Segundo Larry on 08-13-2024 Basophils/100 WBC (Bld) 0.1 % 0-1 [facility] Bilirubin Test strip Ql (U)O rdered By: Segundo Juarez on 08-13-2024 Bilirubin Ql (U) Negative Negative [facility] Bilirubin, totalOrdered By: Segundo Juarez on 08-13-2024 Bilirubin [Mass/Vol] 0.27 mg/dL 0.00-1.30 [facility] Blood Gases by CPSon 025 TERA TEST Positive Normal [facility] Comment on above: Performed By: #### L 9000.0800 ####[facility] [address] [place], [address] Base excess Calc (Bld) [Moles/Vol] -1 mmol/L Normal -2 to +2 [facility] Comment on above: Performed By: #### L 9000.0800 ####[facility] [address] [place], [address] Blood Gas Type ART Normal [facility] Comment on above: Performed By: #### L 9000.0800 ####[facility] [address] [place], [address] CO2 [Moles/Vol] 27 mmol/L Normal [facility] Comment on above: Performed By: #### L 9000.0800 ####[facility] [address] [place], [address] FI02 70.0 Normal [facility] Comment on above: Performed By: #### L 9000.0800 ####[facility] [address] [place], [address] HCO3 (Bld) [Moles/Vol] 25.7 mmol/L Normal 22-26 [facility] Comment on above: Performed By: #### L 9000.0800 ####[facility] [address] [place], [address] Mode Not entered Normal [facility] Comment on above: Performed By: #### L 9000.0800 ####[facility] [address] [place], [address] O2 Delivery Dev BiPAP Normal [facility] Comment on above: Performed By: #### L 0.0800 ####[facility] [address] [place], [address] pCO2 50.4 mmHg High 35-45 [facility] Comment on above: Performed By: #### L 0.0800 ####[facility] [address] [place], [address] PEEP 9 Normal [facility] Comment on above: Performed By: #### L 0.0800 ####[facility] [address] [place], [address] pH (Bld) 7.32 [pH] Low 7.35-7.45 [facility] Comment on above: Performed By: #### L 0.0800 ####[facility] [address] [place], [address] PO2 98 mmHG Normal 75-100 [facility] Comment on above: Performed By: #### L 0.0800 ####[facility] [address] [place], [address] SITE L Radial Normal [facility] Comment on above: Performed By: #### L 9000.0800 ####[facility] [address] [place], [address] SO2 97 Normal 95-99 [facility] Comment on above: Performed By: #### L 0.0800 ####[facility] [address] [place], [address] Blood bicarbonate measuremen tOrdered By: Segundo Juarez on 08-13-2024 Blood Gas Bicarbonate Actual 25.7 mmol/L [facility] CBC W/Diff, Automatedon Absolute Lymph 0.54 X10 3/uL Low 0.83-4.51 [facility] Comment on above: Performed By: #### L 500.4050, L100.0100, M200.1000, L300.3900, L503.6005, L300.4310 ####[facility] [address] [place], [address] Absolute Neut 13.6 X10 3/uL High 2.0-7.7 [facility] Comment on above: Performed By: #### L 500.4050, L100.0100, M200.1000, L300.3900, L503.6005, L300.4310 ####[facility] [address] [place], [address] Basophils/100 WBC (Bld) 0.1 % Normal 0-1 [facility] Comment on above: Performed By: #### L 500.4050, L100.0100, M200.1000, L300.3900, L503.6005, L300.4310 ####[facility] [address] [place], [address] Eosinophils/100 WBC (Bld) 0.0 % Normal 0-5 [facility] Comment on above: Performed By: #### L 500.4050, L100.0100, M200.1000, L300.3900, L503.6005, L300.4310 ####[facility] [address] [place], [address] Erythrocyte distribution width (RBC) [Ratio] 15.8 % High 11.6-14.6 [facility] Comment on above: Performed By: #### L 500.4050, L100.0100, M200.1000, L300.3900, L503.6005, L300.4310 ####[facility] [address] [place], [address] Hematocrit (Bld) [Volume fraction] 36.2 % Low 37-47 [facility] Comment on above: Performed By: #### L 500.4050, L100.0100, M200.1000, L300.3900, L503.6005, L300.4310 ####[facility] [address] [place], [address] Hemoglobin (Bld) [Mass/Vol] 11.9 g/dL Low 12.0-15.0 [facility] Comment on above: Performed By: #### L 500.4050, L100.0100, M200.1000, L300.3900, L503.6005, L300.4310 ####[facility] [address] [place], [address] IG% 0.300 Normal 0.0-0.9 [facility] Comment on above: Result Comment: IG% - Immature Granulocytes (promyelocytes, myelocytes andmetamyelocytes) > 1% indicates that a LEFT SHIFT is Present. Performed By: #### L 500.4050, L100.0100, M200.1000, L300.3900, L503.6005, L300.4310 ####[facility] [address] [place], [address] Lymphocytes/100 WBC (Bld) 3.6 % Low 19-41 [facility] Comment on above: Performed By: #### L 500.4050, L100.0100, M200.1000, L300.3900, L503.6005, L300.4310 ####[facility] [address] [place], [address] MCH (RBC) [Entitic mass] 32.2 pg High 27.0-32.0 [facility] Comment on above: Performed By: #### L 500.4050, L100.0100, M200.1000, L300.3900, L503.6005, L300.4310 ####[facility] [address] [place], [address] MCHC (RBC) [Mass/Vol] 32.9 g/dL Normal 32-36 [facility] Comment on above: Performed By: #### L 500.4050, L100.0100, M200.1000, L300.3900, L503.6005, L300.4310 ####[facility] [address] [place], [address] MCV (RBC) [Entitic vol] 97.8 fL Normal 81-99 [facility] Comment on above: Performed By: #### L 500.4050, L100.0100, M200.1000, L300.3900, L503.6005, L300.4310 ####[facility] [address] [place], [address] Monocytes/100 WBC (Bld) 5.2 % Normal 0-10 [facility] Comment on above: Performed By: #### L 500.4050, L100.0100, M200.1000, L300.3900, L503.6005, L300.4310 ####[facility] [address] [place], [address] Neutrophils/100 WBC (Bld) 90.8 % High 47-70 [facility] Comment on above: Performed By: #### L 500.4050, L100.0100, M200.1000, L300.3900, L503.6005, L300.4310 ####[facility] [address] [place], [address] Nucleated RBC (Bld) [#/Vol] 0.1 10*3/uL Normal 0-5 [facility] Comment on above: Performed By: #### L 500.4050, L100.0100, M200.1000, L300.3900, L503.6005, L300.4310 ####[facility] [address] [place], [address] Platelet mean volume (Bld) [Entitic vol] 10.5 fL Normal 6.2-12.0 [facility] Comment on above: Performed By: #### L 500.4050, L100.0100, M200.1000, L300.3900, L503.6005, L300.4310 ####[facility] [address] [place], [address] Platelets (Bld) [#/Vol] 188 10*3/uL Normal 150-450 [facility] Comment on above: Performed By: #### L 500.4050, L100.0100, M200.1000, L300.3900, L503.6005, L300.4310 ####[facility] [address] [place], [address] RBC (Bld) [#/Vol] 3.70 10*6/uL Low 4.2-5.[address] [facility] Comment on above: Performed By: #### L 500.4050, L100.0100, M200.1000, L300.3900, L503.6005, L300.4310 ####[facility] [address] [place], [address] RDW SD 56.1 fl High 35.1-43.9 [facility] Comment on above: Performed By: #### L 500.4050, L100.0100, M200.1000, L300.3900, L503.6005, L300.4310 ####[facility] [address] [place], [address] WBC (Bld) [#/Vol] 15.0 10*3/uL High 4.4-11.[address] [facility] Comment on above: Performed By: #### L 500.4050, L100.0100, M200.1000, L300.3900, L503.6005, L300.4310 ####[facility] [address] [place], [address] Carbon dioxide, total [Moles /volume] in Central venous bloodOrdered By: Segundo Juarez on 08-13-2024 CO2 [Moles/Vol] 23.7 mmol/L 21.0-32.0 [facility] Chest PA and Lateralon 08-13 Chest PA and Lateral Normal [facility] Chloride assayOrdered By: Hakeem Juarez on 08-13-2024 Chloride [Moles/Vol] 98 mmol/L 98-108 [facility] Comprehensive Metabolic Prof ilon 08-13-2024 Albumin [Mass/Vol] 3.9 g/dL Normal 3.4-4.8 [facility] Comment on above: Performed By: #### L 500.4050, L100.0100, M200.1000, L300.3900, L503.6005, L300.4310 ####[facility] [address] [place], [address] Albumin/Globulin [Mass ratio] 1.1 {ratio} Normal 0.9-2.4 [facility] Comment on above: Performed By: #### L 500.4050, L100.0100, M200.1000, L300.3900, L503.6005, L300.4310 ####[facility] [address] [place], [address] ALK PHOS 130 U/L High 35-104 [facility] Comment on above: Performed By: #### L 500.4050, L100.0100, M200.1000, L300.3900, L503.6005, L300.4310 ####[facility] [address] [place], [address] ALT [Catalytic activity/Vol] 17 U/L Normal <=34 [facility] Comment on above: Performed By: #### L 500.4050, L100.0100, M200.1000, L300.3900, L503.6005, L300.4310 ####[facility] [address] [place], [address] AST [Catalytic activity/Vol] 27 U/L Normal <=31 [facility] Comment on above: Performed By: #### L 500.4050, L100.0100, M200.1000, L300.3900, L503.6005, L300.4310 ####[facility] [address] [place], [address] Bilirubin [Mass/Vol] 0.27 mg/dL Normal 0.00-1.30 [facility] Comment on above: Performed By: #### L 500.4050, L100.0100, M200.1000, L300.3900, L503.6005, L300.4310 ####[facility] [address] [place], [address] BUN/CRE 19.5 RATIO Normal 10-20 [facility] Comment on above: Performed By: #### L 500.4050, L100.0100, M200.1000, L300.3900, L503.6005, L300.4310 ####[facility] [address] [place], [address] Calcium [Mass/Vol] 9.2 mg/dL Normal 7.6-11.0 [facility] Comment on above: Performed By: #### L 500.4050, L100.0100, M200.1000, L300.3900, L503.6005, L300.4310 ####[facility] [address] [place], [address] Chloride [Moles/Vol] 98 mmol/L Normal 98-108 [facility] Comment on above: Performed By: #### L 500.4050, L100.0100, M200.1000, L300.3900, L503.6005, L300.4310 ####[facility] [address] [place], [address] CO2 [Moles/Vol] 23.7 mmol/L Normal 21.0-32.0 [facility] Comment on above: Performed By: #### L 500.4050, L100.0100, M200.1000, L300.3900, L503.6005, L300.4310 ####[facility] [address] [place], [address] Creatinine [Mass/Vol] 1.48 mg/dL High 0.70-1.20 [facility] Comment on above: Performed By: #### L 500.4050, L100.0100, M200.1000, L300.3900, L503.6005, L300.4310 ####[facility] [address] [place], [place], [id number](156) ECRCL 45.10 ml/min Low 50-250 [facility] Comment on above: Performed By: #### L 500.4050, L100.0100, M200.1000, L300.3900, L503.6005, L300.4310 ####[facility] [address] [place], [address] GAP 17 High 5-15 [facility] Comment on above: Performed By: #### L 500.4050, L100.0100, M200.1000, L300.3900, L503.6005, L300.4310 ####[facility] [address] [place], [address] GFR/1.73 sq M.predicted among non-blacks MDRD (S/P/Bld) [Vol rate/Area] 37 mL/min/{1.73_m2} Low >60 [facility] Comment on above: Result Comment: mL/m in/1.73m2 CKD-EPI Creatinine Equation (2020) Performed By: #### L 500.4050, L100.0100, M200.1000, L300.3900, L503.6005, L300.4310 ####[facility] [address] [place], [address] Globulin (S) [Mass/Vol] 3.5 g/dL Normal 2.2-4.2 [facility] Comment on above: Performed By: #### L 500.4050, L100.0100, M200.1000, L300.3900, L503.6005, L300.4310 ####[facility] [address] [place], [address] Glucose [Mass/Vol] 149 mg/dL High 70-99 [facility] Comment on above: Performed By: #### L 500.4050, L100.0100, M200.1000, L300.3900, L503.6005, L300.4310 ####[facility] [address] [place], [address] Potassium [Moles/Vol] 4.3 mmol/L Normal 3.3-5.1 [facility] Comment on above: Performed By: #### L 500.4050, L100.0100, M200.1000, L300.3900, L503.6005, L300.4310 ####[facility] [address] [place], [address] Sodium [Moles/Vol] 138 mmol/L Normal 133-145 [facility] Comment on above: Performed By: #### L 500.4050, L100.0100, M200.1000, L300.3900, L503.6005, L300.4310 ####[facility] [address] [place], [place], [id number] T PROT 7.4 g/dL Normal 5.9-8.4 [facility] Comment on above: Performed By: #### L 500.4050, L100.0100, M200.1000, L300.3900, L503.6005, L300.4310 ####[facility] [address] [place], [address] Urea nitrogen [Mass/Vol] 29 mg/dL High 4-19 [facility] Comment on above: Performed By: #### L 500.4050, L100.0100, M200.1000, L300.3900, L503.6005, L300.4310 ####[facility] [address] [place], [place], [id number] Consultation - Intensiviston 08-13-2024 Consultation - Mail Processing Associate Normal [facility] D-Dimer Quantitative (DVT/PE )on 08-13-2024 D-DIMER QUANT 1.43 FEU/ug/m Invalid Interpretation Code 0.27-0.49 [facility] Comment on above: Result Comment: CRIT ICAL VALUE CALLED TO ESTRELLA LITTLEJOHN RN ICU08/13/24 2334 Benito He.RESULTS READ BACK BY SAME .D-Dimer ELEVATED (>0.49): Additional studies and clinicalassessments are indicated to conclude diagnosis of:Deep Vein Thrombosis (DVT) or Pulmonary Embolism (PE) Performed By: #### L 300.8000 ####[facility] [address] [place], [place], [id number] D-dimer measurement for deep venous thrombosisOrdered By: Paresh Brunson on 08-13-2024 D-Dimer Quantitative (PE/DVT) 1.43 FEU/ug/m High 0.27-0.49 [facility] Comment on above: CRITICAL VALUE PANIAGUA D TO ESTRELLA LITTLEJOHN RN ICU08/13/24 2334 Benito He.RESULTS READ BACK BY SAME . D-Dimer ELEVATED (>0.49): Additional studies and clinicalassessments are indicated to conclude diagnosis of:Deep Vein Thrombosis (DVT) or Pulmonary Embolism (PE) Determination of fraction of inspired oxygenOrdered By: Segundo Juarez on 08-13-2024 Blood Gas Oxygen Percent 70.0 [facility] Echo Complete W/ Contraston 08-13-2024 Echo Complete W/ Contrast Normal [facility] Emergency Department Summary on 08-13-2024 Emergency Department Summary Normal [facility] Eosinophil percentageOrdered By: Segundo Juarez on 08-13-2024 Eosinophils/100 WBC (Bld) 0.0 % 0-5 [facility] Epithelial cells.squamous LM Ql (Urine sed)Ordered By: Segundo Juarez on 08-13-2024 Epithelial cells.squamous LM.HPF (Urine sed) [#/Area] 0 /[HPF] 5-10 [facility] Erythrocyte distribution wid th ratioOrdered By: Segundo Juarez on 08-13-2024 Erythrocyte distribution width (RBC) [Ratio] 15.8 % High 11.6-14.6 [facility] Erythrocyte distribution wid th standard deviationOrdered By: Segundo Juarez on 08-13-2024 Erythrocyte distribution width (RBC) [Entitic vol] 56.1 fL High 35.1-43.9 [facility] Estimation of creatinine alina aranceOrdered By: Segundo Juarez on 08-13-2024 Estimated Creatinine Clearance Calc 45.10 ml/min Low 50-250 [facility] GFR/1.73 sq M.predicted millie g non-blacks MDRD (S/P/Bld) [Vol rate/Area]Ordered By: Segundo Juarez on 08-13-2024 Estimated GFR (MDRD) Non-Af Amer 37 Low >60 [facility] Comment on above: mL/min/1.73m2 CKD-EP I Creatinine Equation (2020) Glucose Ql (U)Ordered By: Hakeem Juarez on 08-13-2024 Urine Glucose (UA) Normal mg/dl Normal [facility] H AND P Exam - Hospitaliston 08-13-2024 H&P Exam - Hospitalist Normal [facility] Hematocrit Auto (Bld) [Volum e fraction]Ordered By: Segundo Juarez on 08-13-2024 Hematocrit (Bld) [Volume fraction] 36.2 % Low 37-47 [facility] Hemoglobin measurementOrdere d By: Segundo Juarez on 08-13-2024 Hemoglobin (Bld) [Mass/Vol] 11.9 g/dL Low 12.0-15.0 [facility] Immature granulocytes/100 WB C Auto (Bld)Ordered By: Segundo Juarez on 08-13-2024 Immature granulocytes/100 WBC (Bld) 0.300 % 0.0-0.9 [facility] Comment on above: IG% - Immature Granu locytes (promyelocytes, myelocytes and metamyelocytes) > 1% indicates that a LEFT SHIFT is Present. Influenza virus A and B and SARS-CoV-2 (COVID-19) and Respiratory syncytial virus RNAOrdered By: Ibeth Parker on 08-13-2024 SARS-CoV-2 (COVID-19) RNA SINAN+probe Ql (Unsp spec) [facility] International normalized rat io (INR) calculationOrdered By: Segundo Juarez on 08-13-2024 INR Coag (Bld) [Relative time] 1.1 {INR} [facility] Ketones Test strip Ql (U)Ord ered By: Segundo Juarez on 08-13-2024 Ketones Ql (U) Negative Negative [facility] L. pneumophila Ag Ql (U)Orde red By: Ibeth Parker on 08-13-2024 Legionella Antigen [facility] L499.0042on 08-13-2024 Trop T High Sen 427 ng/L Invalid Interpretation Code <=14 [facility] Comment on above: Result Comment: Crit ical Result(s) Called ELINA at: 1945 by:AVIS??Results read back by same. Performed By: #### L 499.0042 ####[facility] [address] [place], [place], [address] L499.0043on 08-13-2024 Trop T High Sen 467 ng/L Invalid Interpretation Code <=14 [facility] Comment on above: Result Comment: Crit ical Result(s) Called ESTRELLA LITTLEJOHN at: 2252 by:AVIS??Results read back by same. Performed By: #### L 499.0043 ####[facility] [address] [place], [address] L501.4021on 08-13-2024 Trop T High Sen 317 ng/L Invalid Interpretation Code <=14 [facility] Comment on above: Result Comment: Crit ical Result(s) Called at 08/13/2024-16:36 by Eliezer Littlejohn??Results read back by same. Performed By: #### L 501.4021 ####[facility] [address], [address] L503.7505on 08-13-2024 Natriuretic peptide B (Bld) [Mass/Vol] 3099 pg/mL High <=1800 [facility] Comment on above: Result Comment: Hear t Failure Unlikely: < 300 pg/mLHeart Failure Likely< 50 Years: > 450 pg/mL50-75 Years: > 900 pg/mL>75 Years: > 1800 pg/mL Performed By: #### L 609.6865 ####[facility] [address] [place], [place], [address] Laboratory - Chemistry and C hemistry - challengeOrdered By: Segundo Juarez on 08-13-2024 AST [Catalytic activity/Vol] 27 U/L <32 [facility] Natriuretic peptide B (Bld) [Mass/Vol] 3099 pg/mL High <1800 [facility] Comment on above: Heart Failure Unlike ly: < 300 pg/mLHeart Failure Likely< 50 Years: > 450 pg/mL50-75 Years: > 900 pg/mL>75 Years: > 1800 pg/mL Lactic Acidon 08-13-2024 Lactate [Moles/Vol] 1.8 mmol/L Normal 0.0-2.[address] [facility] Comment on above: Order Comment: Y Performed By: #### L 503.6006 ####[facility] [address] [place], [place], [address] Lactate [Moles/Vol] 3.1 mmol/L Invalid Interpretation Code 0.0-2.0 [facility] Comment on above: Order Comment: Y Result Comment: Crit ical Result(s) Called at 08/13/2024-16:37 by Eliezer Littlejohn??Results read back by same. Performed By: #### L 500.4050, L100.0100, M200.1000, L300.3900, L503.6005, L300.4310 ####[facility] [address] [place], [address] Lactic acid measurementOrder ed By: Paresh Brunson on 08-13-2024 Lactate [Moles/Vol] 1.8 mmol/L 0.0-2.[address] [facility] Lactic acid measurementOrder ed By: Segundo Juarez on 08-13-2024 Lactate [Moles/Vol] 3.1 mmol/L High 0.0-2.[address] [facility] Comment on above: Critical Result(s) C alled at 08/13/2024-16:37 by Eliezer Littlejohn Results read back by same. Legionella Antigen Urineon 0 08-13-2024 LEGU Normal [facility] Comment on above: Performed By: #### M 300.4500, M300.4600 ####[facility] [address] [place], [place], [phone] Lymphocytes Auto (Unsp spec) [#/Vol]Ordered By: Segundo Juarez on 08-13-2024 Lymphocytes (Bld) [#/Vol] 0.54 10*3/uL Low 0.83-4.51 [facility] Lymphocytes/100 WBC Auto (Un sp spec)Ordered By: Segundo Juarez on 08-13-2024 Lymphocytes/100 WBC (Bld) 3.6 % Low 19-41 [facility] M100.678on 08-13-2024 M100.678 Pending SARS-CoV-2 (COVID 19) Negative INFLUENZA A Negative INFLUENZA B Negative RSV PCR Negative Normal [facility] Comment on above: Performed By: #### M 100.678 ####[facility] [address] [place], [address] M8200.1000on 08-13-2024 M8200.1000 Normal Reference Ran ge = Negative MRSA DNA Nose Ql SINAN+probe GeneXpert Instrument, PCR method MRSA PCR MRSA NEGATIVE Normal [facility] Comment on above: Performed By: #### M 8200.1000 ####[facility] [address] [facility] [place], [address] MCV (mean corpuscular volume ) determinationOrdered By: Segundo Juarez on 08-13-2024 MCV (RBC) [Entitic vol] 97.8 fL 81-99 [facility] MRSA DNA SINAN+probe Ql (Nose) Ordered By: Ibeth Parker on 08-13-2024 MRSA (PCR) [facility] Magnesiumon 08-13-2024 Magnesium [Mass/Vol] 1.7 mg/dL Normal 1.5-2.2 [facility] Comment on above: Order Comment: Comme nts: May add to ED labsComments: may add to ED labs Performed By: #### L 501.2300, L501.5200 ####[facility] [address] [facility] [place], [address] Mean corpuscular hemoglobin (MCH) determinationOrdered By: Segundo Juarez on 08-13-2024 MCH (RBC) [Entitic mass] 32.2 pg High 27.0-32.0 [facility] Mean corpuscular hemoglobin concentration (MCHC) determinationOrdered By: Segundo Juarez on 08-13-2024 MCHC (RBC) [Mass/Vol] 32.9 g/dL 32-36 [facility] Mean platelet volume determi nationOrdered By: Segundo Juarez on 08-13-2024 Platelet mean volume (Bld) [Entitic vol] 10.5 fL 6.2-12.0 [facility] Microscopic analysis of urin e for red blood cells (RBC)Ordered By: Segundo Juarez on 08-13-2024 Urine RBC 0-5 SEEN /hpf 0-5 [facility] Monocyte percentageOrdered B y: Segundo Juarez on 08-13-2024 Monocytes/100 WBC (Bld) 5.2 % 0-10 [facility] Mucus LM Ql (Urine sed)Order ed By: Segundo Juarez on 08-13-2024 Mucus Ql (Urine sed) 0 SEEN /hpf [facility] Neutrophil percentageOrdered By: Segundo Juarez on 08-13-2024 Neutrophils/100 WBC (Bld) 90.8 % High 47-70 [facility] Nitrite Test strip Ql (U)Ord ered By: Segundo Juarez on 08-13-2024 Nitrite Ql (U) Negative Negative [facility] No Panel InformationOrdered By: Segundo Juarez on 08-13-2024 Bedside Blood Gas PEEP 9 [facility] Blood Gas Sample Site L Radial [facility] Blood Gas Specimen Type ART [facility] Blood Gas Vent Mode Not entered [facility] Oxygen Delivery Device BiPAP [facility] Troponin T High Sensitivity 317 ng/L High <14 [facility] Comment on above: Critical Result(s) C alled at 08/13/2024-16:36 by Eliezer Parker to Geena Littlejohn Results read back by same. Nucleated red blood cell per centageOrdered By: Segundo Juarez on 08-13-2024 Nucleated RBC/100 WBC (Bld) [Ratio] 0.1 % 0-5 [facility] Oxygen saturation measuremen tOrdered By: Segundo Juarez on 08-13-2024 Blood Gas Oxygen Saturation 97 % 95-99 [facility] Partial Thromboplast Timeon 08-13-2024 aPTT Coag (Bld) [Time] 40.2 s High 24.1-36.2 [facility] Comment on above: Performed By: #### L 500.4050, L100.0100, M200.1000, L300.3900, L503.6005, L300.4310 ####[facility] [address] [place], [place], [id number] Partial pressure of carbon d ioxide measurementOrdered By: Segundo Juarez on 08-13-2024 Arterial Blood Partial Pressure CO2 50.4 mmHg High 35-45 [facility] Partial pressure of oxygen m easurementOrdered By: Segundo Juarez on 08-13-2024 Arterial Blood Partial Pressure O2 98 mmHG 75-100 [facility] Phosphoruson 08-13-2024 Phosphate [Mass/Vol] 3.3 mg/dL Normal 2.7-4.5 [facility] Comment on above: Order Comment: Comme nts: May add to ED labsComments: may add to ED labs Performed By: #### L 501.2300, L501.5200 ####[facility] [address] [place], [address] Platelet countOrdered By: Hakeem Juarez on 08-13-2024 Platelets (Bld) [#/Vol] 188 10*3/uL 150-450 [facility] Potassium (Unsp spec) [Mass/ Vol]Ordered By: Segundo Juarez on 08-13-2024 Potassium [Moles/Vol] 4.3 mmol/L 3.3-5.1 [facility] Protein Test strip Ql (U)Ord ered By: Segundo Juarez on 08-13-2024 Protein Ql (U) 30 mg/dl High Negative [facility] Prothrombin Time w/INRon INR Normal [facility] Comment on above: Result Comment: [facility] MADALYNYOKO LOPEZ CRISTELAMARIE RAN PT/PTT UNDER CG48 Performed By: #### L 300.3900 ####[facility] [address] [place], [address] PROTIME Normal 11.7-14.9 [facility] Comment on above: Result Comment: OLE WONG RAN PT/PTT UNDER CG48 Performed By: #### L 300.3900 ####[facility] [address] [place], [address] INR Coag (PPP) [Relative time] 1.1 {INR} Normal [facility] Comment on above: Performed By: #### L 500.4050, L100.0100, M200.1000, L300.3900, L503.6005, L300.4310 ####[facility] [address] [place], [address] PT Coag (PPP) [Time] 14.8 s Normal 11.7-14.9 [facility] Comment on above: Performed By: #### L 500.4050, L100.0100, M200.1000, L300.3900, L503.6005, L300.4310 ####[facility] [address] [place], [address] Prothrombin timeOrdered By: Segundo Juarez on 08-13-2024 PT Coag (PPP) [Time] 14.8 s 11.7-14.9 [facility] RBC Auto (Bld) [#/Vol]Ordere d By: Segundo Juarez on 08-13-2024 RBC (Bld) [#/Vol] 3.70 10*6/uL Low 4.2-5.[address] [facility] Respiratory pathogens DNA an d RNA panel SINAN+probe (Resp)Ordered By: Ibeth Parker on 08-13-2024 Respiratory Panel (PCR) [facility] Serum creatinine measurement (mass/volume)Ordered By: Segundo Juarez on 08-13-2024 Creatinine [Mass/Vol] 1.48 mg/dL High 0.70-1.20 [facility] Serum globulin measurementOr dered By: Segundo Juarez on 08-13-2024 Globulin (S) [Mass/Vol] 3.5 g/dL 2.2-4.2 [facility] Serum glucose measurement (m ass/volume)Ordered By: Segundo Juarez on 08-13-2024 Glucose [Mass/Vol] 149 mg/dL High 70-99 [facility] Serum or plasma alanine barrientos otransferase (ALT) measurementOrdered By: Segundo Juarez on 08-13-2024 ALT [Catalytic activity/Vol] 17 U/L <35 [facility] Serum or plasma albumin jerod urement (mass/volume)Ordered By: Segundo Juarez on 08-13-2024 Albumin [Mass/Vol] 3.9 g/dL 3.4-4.8 [facility] Serum or plasma albumin/glob ulin mass ratioOrdered By: Segundo Juarez on 08-13-2024 Albumin/Globulin [Mass ratio] 1.1 {ratio} 0.9-2.4 [facility] Serum or plasma alkaline mingo sphatase measurementOrdered By: Segundo Juarez on 08-13-2024 ALP [Catalytic activity/Vol] 130 U/L High 35-104 [facility] Serum or plasma calcium jerod urement (mass/volume)Ordered By: Segundo Juarez on 08-13-2024 Calcium [Mass/Vol] 9.2 mg/dL 7.6-11.0 [facility] Serum or plasma urea nitroge n measurement (mass/volume)Ordered By: Segundo Juarez on 08-13-2024 Urea nitrogen [Mass/Vol] 29 mg/dL High 4-19 [facility] Sodium levelOrdered By: Ward Juarez on 08-13-2024 Sodium [Moles/Vol] 138 mmol/L 133-145 [facility] Strep pneumoniae Antig(UR,CS F)on 08-13-2024 STPAG Normal [facility] Comment on above: Performed By: #### M 300.4500, M300.4600 ####[facility] [address] [place], [address] Streptococcus pneumoniae ant igen assayOrdered By: Ibeth Parker on 08-13-2024 Streptococcus pneumoniae Antigen (M [facility] Total carbon dioxide measure mentOrdered By: Segundo Juarez on 08-13-2024 Blood Gas Total CO2 27 mmol/L [facility] Total proteinOrdered By: Chase Juarez on 08-13-2024 Protein [Mass/Vol] 7.4 g/dL 5.9-8.4 [facility] Troponin T.cardiac High sens itivity method [Mass/Vol]Ordered By: Ibeth Parker on 08-13-2024 Troponin T High Sensitivity 4 Hour 467 ng/L High <14 [facility] Comment on above: Critical Result(s) C leslie LITTLEJOHN at: 2252 by: AVIS Results read back by same. Troponin T.cardiac High sens itivity method [Mass/Vol]Ordered By: Segundo Juarez on 08-13-2024 Troponin T High Sensitivity 2 Hour 427 ng/L High <14 [facility] Comment on above: Critical Result(s) C leslie ANTOINE at: 1945 by: AVIS Results read back by same. Urinalysis, Completeon 08-13 BACTERIA 3+ /hpf Normal None Seen [facility] Comment on above: Order Comment: MEGHANA TER SPECIMEN Performed By: #### L 400.0001, M100.2200 ####[facility] [address] [place], [address] EPI,SQUAMOUS 0-5 SEEN Normal 5-10 [facility] Comment on above: Order Comment: MEGHANA TER SPECIMEN Performed By: #### L 400.0001, M100.2200 ####[facility] [address] [place], [address] RBC 0-5 SEEN Normal 0-5 [facility] Comment on above: Order Comment: MEGHANA TER SPECIMEN Performed By: #### L 400.0001, M100.2200 ####[facility] [address] [place], [address] WBC 50-100 SEEN Normal 0-5 [facility] Comment on above: Order Comment: MEGHANA TER SPECIMEN Performed By: #### L 400.0001, M100.2200 ####[facility] [address] [place], [address] Mucus Ql (Urine sed) 0 SEEN Normal [facility] Comment on above: Order Comment: MEGHANA TER SPECIMEN Performed By: #### L 400.0001, M100.2200 ####[facility] [address] [place], [address] Urine blood detectionOrdered By: Segundo Juarez on 08-13-2024 Urine Occult Blood 50 /ul High Negative [facility] Urine clarityOrdered By: Chase Juarez on 08-13-2024 Clarity (U) Sl. Cloudy Clear [facility] Urine color determinationOrd ered By: Segundo Juarez on 08-13-2024 Color (U) Yellow Yellow [facility] Urine cultureOrdered By: Chase Juarez on 08-13-2024 Bacteria identified Cx Nom (U) Streptococcus agalactiae (B) Abnormal [facility] Urine leukocyte esterase det ection by dipstickOrdered By: Segundo Juarez on 08-13-2024 Leukocyte esterase Test strip Ql (U) 500 /ul High Negative [facility] Urine pHOrdered By: Segundo campoverde on 08-13-2024 pH (U) 6.0 [pH] 5.0 - 8.0 [facility] Urine sediment bacteria coun t by microscopy (number/high power field)Ordered By: Segundo Juarez on 08-13-2024 Bacteria LM.HPF (Urine sed) [#/Area] 3 /[HPF] None Seen [facility] Urine specific gravity measu rementOrdered By: Segundo Juarez on 08-13-2024 Specific gravity (U) [Rel density] 1.015 1.002-1.030 [facility] Urobilinogen Ql (U)Ordered B y: Segundo Juarez on 08-13-2024 Urine Urobilinogen Normal mg/dl Normal [facility] White blood cell (WBC) count Ordered By: Segundo Juarez on 08-13-2024 WBC (Bld) [#/Vol] 15.0 10*3/uL High 4.4-11.[address] [facility] White blood cell countOrdere d By: Segundo Juarez on 08-13-2024 Urine WBC 50-100 SEEN /hpf 0-5 [facility] aPTT Coag (PPP) [Time]Ordere d By: Segundo Juarez on 08-13-2024 aPTT Coag (Bld) [Time] 40.2 s High 24.1-36.2 [facility] pH (Unsp spec)Ordered By: Hakeem Juarez on 08-13-2024 Blood Gas pH 7.32 Low 7.35-7.45 [facility] L3700.3000on 06-05-2024 PHENobarbital [Mass/Vol] 40 ug/mL Normal 15-40 [facility] Comment on above: Order Comment: 104.2 Result Comment: Dete ction Limit = 3Performed at: - [facility] [address] [id number] Director: Jose Vicente PhD, Phone: [phone] Performed By: #### L 100.0500, L3700.3000, L500.2500, L501.9520, L500.4100 ####[facility] [address] [place], [address] Basic Metabolic Profile (BMP )on 06-04-2024 BUN/CRE 33.0 RATIO High 10-20 [facility] Comment on above: Order Comment: 104.2 Performed By: #### L 100.0500, L3700.3000, L500.2500, L501.9520, L500.4100 ####[facility] [address] [place], [address] CA,Total 8.8 mg/dL Normal 8.5-10.1 [facility] Comment on above: Order Comment: 104.2 Performed By: #### L 100.0500, L3700.3000, L500.2500, L501.9520, L500.4100 ####[facility] [address] [place], [address] Chloride [Moles/Vol] 105 mmol/L Normal 98-107 [facility] Comment on above: Order Comment: 104.2 Performed By: #### L 100.0500, L3700.3000, L500.2500, L501.9520, L500.4100 ####[facility] [address] [place], [address] CO2 [Moles/Vol] 32.0 mmol/L Normal 21.0-32.0 [facility] Comment on above: Order Comment: 104.2 Performed By: #### L 100.0500, L3700.3000, L500.2500, L501.9520, L500.4100 ####[facility] [address] [place], [address] Creatinine [Mass/Vol] 0.82 mg/dL Normal 0.55-1.02 [facility] Comment on above: Order Comment: 104.2 Result Comment: The validity of the calculated GFR GFRAA in patients over70 years has not been determined. Clinical correlation isessential. Performed By: #### L 100.0500, L3700.3000, L500.2500, L501.9520, L500.4100 ####[facility] [address] [place], [address] EST GFR - AA 88 mL/min Normal >60 [facility] Comment on above: Order Comment: 104.2 Result Comment: Afri can Ivorian GFR Calc Performed By: #### L 100.0500, L3700.3000, L500.2500, L501.9520, L500.4100 ####[facility] [address] [place], [address] GAP 2 Low 5-15 [facility] Comment on above: Order Comment: 104.2 Performed By: #### L 100.0500, L3700.3000, L500.2500, L501.9520, L500.4100 ####[facility] [address] [place], [address] GFR/1.73 sq M.predicted among non-blacks MDRD (S/P/Bld) [Vol rate/Area] 72 mL/min/{1.73_m2} Normal >60 [facility] Comment on above: Order Comment: 104.2 Result Comment: Non- GFR Calc Performed By: #### L 100.0500, L3700.3000, L500.2500, L501.9520, L500.4100 ####[facility] [address] [place], [address] Glucose [Mass/Vol] 93 mg/dL Normal 74-106 [facility] Comment on above: Order Comment: 104.2 Performed By: #### L 100.0500, L3700.3000, L500.2500, L501.9520, L500.4100 ####[facility] [address] [place], [address] Potassium [Moles/Vol] 3.9 mmol/L Normal 3.5-5.1 [facility] Comment on above: Order Comment: 104.2 Performed By: #### L 100.0500, L3700.3000, L500.2500, L501.9520, L500.4100 ####[facility] [address] [place], [address] Sodium [Moles/Vol] 139 mmol/L Normal 136-145 [facility] Comment on above: Order Comment: 104.2 Performed By: #### L 100.0500, L3700.3000, L500.2500, L501.9520, L500.4100 ####[facility] [address] [place], [address] Urea nitrogen [Mass/Vol] 27 mg/dL High 7-18 [facility] Comment on above: Order Comment: 104.2 Performed By: #### L 100.0500, L3700.3000, L500.2500, L501.9520, L500.4100 ####[facility] [address] [place], [address] Blood urea nitrogen (BUN)/cr eatinine ratioOrdered By: Panda Littlejohn on 06-04-2024 Urea nitrogen/Creatinine [Mass ratio] 33.0 mg/mg High 10-20 [facility] CBC-Complete Blood Cnt No Di ffon 06-04-2024 Erythrocyte distribution width (RBC) [Ratio] 17.2 % High 11.6-14.6 [facility] Comment on above: Order Comment: 104.2 Performed By: #### L 100.0500, L3700.3000, L500.2500, L501.9520, L500.4100 ####[facility] [address] [place], [address] Hematocrit (Bld) [Volume fraction] 31.9 % Low 37-47 [facility] Comment on above: Order Comment: 104.2 Performed By: #### L 100.0500, L3700.3000, L500.2500, L501.9520, L500.4100 ####[facility] [address] [place], [address] Hemoglobin (Bld) [Mass/Vol] 10.3 g/dL Low 12.0-15.0 [facility] Comment on above: Order Comment: 104.2 Performed By: #### L 100.0500, L3700.3000, L500.2500, L501.9520, L500.4100 ####[facility] [address] [place], [address] MCH (RBC) [Entitic mass] 32.6 pg High 27.0-32.0 [facility] Comment on above: Order Comment: 104.2 Performed By: #### L 100.0500, L3700.3000, L500.2500, L501.9520, L500.4100 ####[facility] [address] [place], [address] MCHC (RBC) [Mass/Vol] 32.3 g/dL Normal 32-36 [facility] Comment on above: Order Comment: 104.2 Performed By: #### L 100.0500, L3700.3000, L500.2500, L501.9520, L500.4100 ####[facility] [address] [place], [address] MCV (RBC) [Entitic vol] 100.9 fL High 81-99 [facility] Comment on above: Order Comment: 104.2 Performed By: #### L 100.0500, L3700.3000, L500.2500, L501.9520, L500.4100 ####[facility] [address] [place], [address] Platelet mean volume (Bld) [Entitic vol] 10.4 fL Normal 6.2-12.0 [facility] Comment on above: Order Comment: 104.2 Performed By: #### L 100.0500, L3700.3000, L500.2500, L501.9520, L500.4100 ####[facility] [address] [place], [address] Platelets (Bld) [#/Vol] 216 10*3/uL Normal 150-450 [facility] Comment on above: Order Comment: 104.2 Performed By: #### L 100.0500, L3700.3000, L500.2500, L501.9520, L500.4100 ####[facility] [address] [place], [address] RBC (Bld) [#/Vol] 3.16 10*6/uL Low 4.2-5.[address] [facility] Comment on above: Order Comment: 104.2 Performed By: #### L 100.0500, L3700.3000, L500.2500, L501.9520, L500.4100 ####[facility] [address] [place], [address] RDW SD 64.7 fl High 35.1-43.9 [facility] Comment on above: Order Comment: 104.2 Performed By: #### L 100.0500, L3700.3000, L500.2500, L501.9520, L500.4100 ####[facility] [address] [place], [address] WBC (Bld) [#/Vol] 5.0 10*3/uL Normal 4.4-11.0 [facility] Comment on above: Order Comment: 104.2 Performed By: #### L 100.0500, L3700.3000, L500.2500, L501.9520, L500.4100 ####[facility] [address] [place], [address] Carbon dioxide measurementOr dered By: Panda Littlejohn on 06-04-2024 CO2 [Moles/Vol] 32.0 mmol/L 21.0-32.0 [facility] Chloride measurementOrdered By: Panda Littlejohn on 06-04-2024 Chloride [Moles/Vol] 105 mmol/L 98-107 [facility] Erythrocyte distribution wid th ratioOrdered By: Panda Littlejohn on 06-04-2024 Erythrocyte distribution width (RBC) [Ratio] 17.2 % High 11.6-14.6 [facility] Erythrocyte distribution wid th standard deviationOrdered By: Panda Littlejohn on 06-04-2024 Erythrocyte distribution width (RBC) [Entitic vol] 64.7 fL High 35.1-43.9 [facility] Estimated glomerular filtrat ion rate (GFR) AmericanOrdered By: Panda Littlejohn on 06-04-2024 Estimated GFR (MDRD) Amer 88 mL/min >60 [facility] Comment on above: GFR Calc Glomerular filtration rate ( GFR) estimationOrdered By: Panda Littlejohn on 06-04-2024 Estimated GFR (MDRD) Non-Af Amer 72 mL/min >60 [facility] Comment on above: Non- GFR Calc Glucose measurementOrdered B y: Panda Littlejohn on 06-04-2024 Glucose [Mass/Vol] 93 mg/dL 74-106 [facility] Hematocrit Auto (Bld) [Volum e fraction]Ordered By: Panda Littlejohn on 06-04-2024 Hematocrit (Bld) [Volume fraction] 31.9 % Low 37-47 [facility] Hemoglobin measurementOrdere d By: Panda Littlejohn on 06-04-2024 Hemoglobin (Bld) [Mass/Vol] 10.3 g/dL Low 12.0-15.0 [facility] High density lipoprotein (HD L) measurementOrdered By: Panda Littlejohn on 06-04-2024 Cholesterol in HDL [Mass/Vol] 86 mg/dL >40 [facility] Comment on above: The drugs N-Acetylcy steine and Metamizole may falsely depress this assay. Reference Range HDL <40 mg/dL Low HDL Cholesterol HDL >or= 60 mg/dL High HDL Cholesterol Lipid Profileon 06-04-2024 Cholesterol [Mass/Vol] 193 mg/dL Normal 200 [facility] Comment on above: Order Comment: 104.2 Result Comment: <200 mg/dL Desirable 200-240 mg/dL Borderline >240 mg/dL High Risk Performed By: #### L 100.0500, L3700.3000, L500.2500, L501.9520, L500.4100 ####[facility] [address] [place], [address] Cholesterol in HDL [Mass/Vol] 86 mg/dL Normal [facility] Comment on above: Order Comment: 104.2 Result Comment: The drugs N-Acetylcysteine and Metamizole may falselydepress this assay. Reference Range HDL <40 mg/dL Low HDL Cholesterol HDL >or= 60 mg/dL High HDL Cholesterol Performed By: #### L 100.0500, L3700.3000, L500.2500, L501.9520, L500.4100 ####[facility] [address] [place], [address] Cholesterol in LDL [Mass/Vol] 76 mg/dL Normal 0-130 [facility] Comment on above: Order Comment: 104.2 Performed By: #### L 100.0500, L3700.3000, L500.2500, L501.9520, L500.4100 ####[facility] [address] [place], [address] Cholesterol in VLDL [Mass/Vol] 31 mg/dL Normal 5-40 [facility] Comment on above: Order Comment: 104.2 Performed By: #### L 100.0500, L3700.3000, L500.2500, L501.9520, L500.4100 ####[facility] [address] [place], [address] Triglyceride [Mass/Vol] 154 mg/dL Normal [facility] Comment on above: Order Comment: 104.2 Result Comment: The drugs N-Acetylcysteine and Metamizole may falselydepress this assay.Serum Triglycerides Reference Interval Normal <150 mg/dL Borderline high 150 - 199 mg/dL High 200 - 499 mg/dL Very High > or = 500 mg/dL Performed By: #### L 100.0500, L3700.3000, L500.2500, L501.9520, L500.4100 ####[facility] [address] [place], [place], [id number] Low density lipoprotein (LDL ) cholesterol measurementOrdered By: Panda Littlejohn on 06-04-2024 Cholesterol in LDL [Mass/Vol] 76 mg/dL 0-130 [facility] MCV (mean corpuscular volume ) determinationOrdered By: Panda Littlejohn on 06-04-2024 MCV (RBC) [Entitic vol] 100.9 fL High 81-99 [facility] Mean corpuscular hemoglobin (MCH) determinationOrdered By: Panda Littlejohn on 06-04-2024 MCH (RBC) [Entitic mass] 32.6 pg High 27.0-32.0 [facility] Mean corpuscular hemoglobin concentration (MCHC) determinationOrdered By: Panda Littlejohn on 06-04-2024 MCHC (RBC) [Mass/Vol] 32.3 g/dL 32-36 [facility] Mean platelet volume determi nationOrdered By: Panda Littlejohn on 06-04-2024 Platelet mean volume (Bld) [Entitic vol] 10.4 fL 6.2-12.0 [facility] Platelet countOrdered By: Stormy Littlejohn on 06-04-2024 Platelets (Bld) [#/Vol] 216 10*3/uL 150-450 [facility] Potassium measurementOrdered By: Panda Littlejohn on 06-04-2024 Potassium [Moles/Vol] 3.9 mmol/L 3.5-5.1 [facility] Quantitative phenobarbital m easurementOrdered By: Panda Littlejohn on 06-04-2024 Phenobarbital Level 40 ug/mL 15-[address] [facility] Comment on above: Detection Limit = 3P erformed at: CB - [facility] [place] [id number] Director: Jose Vicente PhD, Phone: [phone] RBC Auto (Bld) [#/Vol]Ordere d By: Panda Littlejohn on 06-04-2024 RBC (Bld) [#/Vol] 3.16 10*6/uL Low 4.2-5.[address] [facility] Serum anion gap measurementO rdered By: Panda Littlejohn on 06-04-2024 Anion gap [Moles/Vol] 2 mmol/L Low 5-15 [facility] Serum or plasma calcium jerod urement (mass/volume)Ordered By: Panda Littlejohn on 06-04-2024 Calcium [Mass/Vol] 8.8 mg/dL 8.5-10.1 [facility] Serum or plasma cholesterol measurement (mass/volume)Ordered By: Panda Littlejohn on 06-04-2024 Cholesterol [Mass/Vol] 193 mg/dL <200 [facility] Comment on above: <200 mg/dL Desirable 200-240 mg/dL Borderline >240 mg/dL High Risk Serum or plasma creatinine m easurement (mass/volume)Ordered By: Panda Littlejohn on 06-04-2024 Creatinine [Mass/Vol] 0.82 mg/dL 0.55-1.02 [facility] Comment on above: The validity of the calculated GFR & GFRAA in patients over 70 years has not been determined. Clinical correlation is essential. Serum or plasma urea nitroge n measurement (mass/volume)Ordered By: Panda Littlejohn on 06-04-2024 Urea nitrogen [Mass/Vol] 27 mg/dL High 7-18 [facility] Sodium levelOrdered By: Panda Littlejohn on 06-04-2024 Sodium [Moles/Vol] 139 mmol/L 136-145 [facility] TSH QnOrdered By: Panda alfonso on 06-04-2024 Thyroid Stimulating Hormone (TSH) 2.320 uIU/mL 0.358-3.740 [facility] Thyroid Stim Hormone (TSH)on 06-04-2024 TSH 2.320 uIU/mL Normal 0.358-3.740 [facility] Comment on above: Order Comment: 104.2 Performed By: #### L 100.0500, L3700.3000, L500.2500, L501.9520, L500.4100 ####[facility] [address] [place], [place], [id number] Triglycerides measurementOrd ered By: Panda Littlejohn on 06-04-2024 Triglyceride [Mass/Vol] 154 mg/dL <199 [facility] Comment on above: The drugs N-Acetylcy steine and Metamizole may falsely depress this assay.Serum Triglycerides Reference Interval Normal <150 mg/dL Borderline high 150 - 199 mg/dL High 200 - 499 mg/dL Very High > or = 500 mg/dL Very low density lipoprotein (VLDL) cholesterol measurementOrdered By: Panda Littlejohn on 06-04-2024 VLDL Cholesterol 31 mg/dL [facility] White blood cell (WBC) count Ordered By: Panda Littlejohn on 06-04-2024 WBC (Bld) [#/Vol] 5.0 10*3/uL 4.4-11.0 [facility] L3700.3000on 03-19-2024 PHENobarbital [Mass/Vol] 44 ug/mL Abnormal [facility] Comment on above: Order Comment: 104.2 Result Comment: Dete ction Limit = 3Patient drug level exceeds published reference range.Evaluate clinically for signs of potential toxicity.Performed at: [employer] [id number] Director: Jose Vicente PhD, Phone: [phone] Performed By: #### L 3700.3000 ####[facility] [address] [place], [address] Basic Metabolic Profile (BMP )on 03-17-2024 BUN Normal 7-18 [facility] Comment on above: Result Comment: Canc elled via OM: Order cancelled - Patient discharged Performed By: #### L 500.2500, L100.0100 ####[facility] [address] [place], [address] BUN/CRE Normal 10- [facility] Comment on above: Result Comment: Canc elled via OM: Order cancelled - Patient discharged Performed By: #### L 500.2500, L100.0100 ####[facility] [address] [place], [address] CA,Total Normal 8.5-10.1 [facility] Comment on above: Result Comment: Canc elled via OM: Order cancelled - Patient discharged Performed By: #### L 500.2500, L100.0100 ####[facility] [address] [place], [address] CL Normal 98-107 [facility] Comment on above: Result Comment: Canc elled via OM: Order cancelled - Patient discharged Performed By: #### L 500.2500, L100.0100 ####[facility] [address] [place], [address] CO2 Normal 21.0-32.0 [facility] Comment on above: Result Comment: Canc elled via OM: Order cancelled - Patient discharged Performed By: #### L 500.2500, L100.0100 ####[facility] [address] [place], [address] CREAT,SERUM Normal 0.55-1.02 [facility] Comment on above: Result Comment: Canc elled via OM: Order cancelled - Patient discharged Performed By: #### L 500.2500, L100.0100 ####[facility] [address], [address] EST GFR Normal >60 [facility] Comment on above: Result Comment: Canc elled via OM: Order cancelled - Patient discharged Performed By: #### L 500.2500, L100.0100 ####[facility] [address] [place], [address] EST GFR - AA Normal >60 [facility] Comment on above: Result Comment: Canc elled via OM: Order cancelled - Patient discharged Performed By: #### L 500.2500, L100.0100 ####[facility] [address], [address] GAP Normal 5-15 [facility] Comment on above: Result Comment: Canc elled via OM: Order cancelled - Patient discharged Performed By: #### L 500.2500, L100.0100 ####[facility] [address] [place], [address] GLU Normal 74-106 [facility] Comment on above: Result Comment: Canc elled via OM: Order cancelled - Patient discharged Performed By: #### L 500.2500, L100.0100 ####[facility] [address] [place], [address] Potassium Normal 3.5-5.1 [facility] Comment on above: Result Comment: Canc elled via OM: Order cancelled - Patient discharged Performed By: #### L 500.2500, L100.0100 ####[facility] [address] [place], [address] Basic Metabolic Profile (BMP) Normal 136-145 [facility] Comment on above: Result Comment: Canc elled via OM: Order cancelled - Patient discharged Performed By: #### L 500.2500, L100.0100 ####[facility] [address] [place], [address] CBC W/Diff, Automatedon 10-0 8-2023 Absolute Neut Normal 2.0-7.7 [facility] Comment on above: Result Comment: Canc elled via OM: Order cancelled - Patient discharged Performed By: #### L 500.2500, L100.0100 ####[facility] [address] [place], [address] HCT Normal 37-47 [facility] Comment on above: Result Comment: Canc elled via OM: Order cancelled - Patient discharged Performed By: #### L 500.2500, L100.0100 ####[facility] [address] [place], [address] HGB Normal 12.0-15.0 [facility] Comment on above: Result Comment: Canc elled via OM: Order cancelled - Patient discharged Performed By: #### L 500.2500, L100.0100 ####[facility] [address] [place], [address] MCH Normal 27.0-32.0 [facility] Comment on above: Result Comment: Canc elled via OM: Order cancelled - Patient discharged Performed By: #### L 500.2500, L100.0100 ####[facility] [address], [address] MCHC Normal 32-36 [facility] Comment on above: Result Comment: Canc elled via OM: Order cancelled - Patient discharged Performed By: #### L 500.2500, L100.0100 ####[facility] [address] [place], [address] MCV Normal 81-99 [facility] Comment on above: Result Comment: Canc elled via OM: Order cancelled - Patient discharged Performed By: #### L 500.2500, L100.0100 ####[facility] [address] [place], [address] NEUT% Normal 47-70 [facility] Comment on above: Result Comment: Canc elled via OM: Order cancelled - Patient discharged Performed By: #### L 500.2500, L100.0100 ####[facility] [address] [place], [address] PLT Normal 150-450 [facility] Comment on above: Result Comment: Canc elled via OM: Order cancelled - Patient discharged Performed By: #### L 500.2500, L100.0100 ####[facility] [address] [place], [address] RBC Normal 4.2-5.4 [facility] Comment on above: Result Comment: Canc elled via OM: Order cancelled - Patient discharged Performed By: #### L 500.2500, L100.0100 ####[facility] [address] [place], [address] RDW CV Normal 11.6-14.6 [facility] Comment on above: Result Comment: Canc elled via OM: Order cancelled - Patient discharged Performed By: #### L 500.2500, L100.0100 ####[facility] [address] [place], [address] RDW SD Normal 35.1-43.9 [facility] Comment on above: Result Comment: Canc elled via OM: Order cancelled - Patient discharged Performed By: #### L 500.2500, L100.0100 ####[facility] [address] [place], [address] WBC Normal 4.4-11.0 [facility] Comment on above: Result Comment: Canc elled via OM: Order cancelled - Patient discharged Performed By: #### L 500.2500, L100.0100 ####[facility] [address] [place], [address] Culture, Blood (WB)on 2023 CUB Blood cultures x2, from two different sites No growth in 5 days. Normal [facility] Comment on above: Performed By: #### M 200.1000, L503.6005 ####[facility] [address] [place], [address] Basic Metabolic Profile (BMP )on 03-16-2024 BUN/CRE 40.4 RATIO High 10-20 [facility] Comment on above: Performed By: #### L 500.2500, L100.0100 ####[facility] [address] [place], [address] CA,Total 9.1 mg/dL Normal 8.5-10.1 [facility] Comment on above: Performed By: #### L 500.2500, L100.0100 ####[facility] [address] [place], [address] Chloride [Moles/Vol] 112 mmol/L High 98-107 [facility] Comment on above: Performed By: #### L 500.2500, L100.0100 ####[facility] [address] [place], [address] CO2 [Moles/Vol] 25.0 mmol/L Normal 21.0-32.0 [facility] Comment on above: Performed By: #### L 500.2500, L100.0100 ####[facility] [address] [place], [address] Creatinine [Mass/Vol] 0.57 mg/dL Normal 0.55-1.02 [facility] Comment on above: Result Comment: The validity of the calculated GFR GFRAA in patients over70 years has not been determined. Clinical correlation isessential. Performed By: #### L 500.2500, L100.0100 ####[facility] [address] [place], [address] ECRCL 84.19 ml/min Normal [facility] Comment on above: Performed By: #### L 500.2500, L100.0100 ####[facility] [address] [place], [address] EST GFR - AA 133 mL/min Normal >60 [facility] Comment on above: Result Comment: Afri can Ivorian GFR Calc Performed By: #### L 500.2500, L100.0100 ####[facility] [address] [place], [address] GAP 7 Normal 5-15 [facility] Comment on above: Performed By: #### L 500.2500, L100.0100 ####[facility] [address] [place], [address] GFR/1.73 sq M.predicted among non-blacks MDRD (S/P/Bld) [Vol rate/Area] 110 mL/min/{1.73_m2} Normal >60 [facility] Comment on above: Result Comment: Non- GFR Calc Performed By: #### L 500.2500, L100.0100 ####[facility] [address] [place], [address] Glucose [Mass/Vol] 97 mg/dL Normal 74-106 [facility] Comment on above: Performed By: #### L 500.2500, L100.0100 ####[facility] [address] [place], [address] Potassium [Moles/Vol] 3.8 mmol/L Normal 3.5-5.1 [facility] Comment on above: Performed By: #### L 500.2500, L100.0100 ####[facility] [address] [place], [address] Sodium [Moles/Vol] 143 mmol/L Normal 136-145 [facility] Comment on above: Performed By: #### L 500.2500, L100.0100 ####[facility] [address] [place], [address] Urea nitrogen [Mass/Vol] 23 mg/dL High 7-18 [facility] Comment on above: Performed By: #### L 500.2500, L100.0100 ####[facility] [address] [place], [address] CBC W/Diff, Automatedon 10-0 7-2023 Absolute Lymph 2.15 X10 3/uL Normal 0.83-4.51 [facility] Comment on above: Performed By: #### L 500.2500, L100.0100 ####[facility] [address] [place], [address] Absolute Neut 3.9 X10 3/uL Normal 2.0-7.7 [facility] Comment on above: Performed By: #### L 500.2500, L100.0100 ####[facility] [address], [address] Basophils/100 WBC (Bld) 0.1 % Normal 0-1 [facility] Comment on above: Performed By: #### L 500.2500, L100.0100 ####[facility] [address] [place], [address] Eosinophils/100 WBC (Bld) 5.4 % High 0-5 [facility] Comment on above: Performed By: #### L 500.2500, L100.0100 ####[facility] [address] [place], [address] Erythrocyte distribution width (RBC) [Ratio] 17.2 % High 11.6-14.6 [facility] Comment on above: Performed By: #### L 500.2500, L100.0100 ####[facility] [address] [place], [address] Hematocrit (Bld) [Volume fraction] 31.2 % Low 37-47 [facility] Comment on above: Performed By: #### L 500.2500, L100.0100 ####[facility] [address] [place], [address] Hemoglobin (Bld) [Mass/Vol] 10.0 g/dL Low 12.0-15.0 [facility] Comment on above: Performed By: #### L 500.2500, L100.0100 ####[facility] [address] [place], [address] IG% 1.100 High 0.0-0.9 [facility] Comment on above: Result Comment: IG% - Immature Granulocytes (promyelocytes, myelocytes andmetamyelocytes) > 1% indicates that a LEFT SHIFT is Present. Performed By: #### L 500.2500, L100.0100 ####[facility] [address] [place], [address] Lymphocytes/100 WBC (Bld) 29.9 % Normal 19-41 [facility] Comment on above: Performed By: #### L 500.2500, L100.0100 ####[facility] [address] [place], [address] MCH (RBC) [Entitic mass] 30.8 pg Normal 27.0-32.0 [facility] Comment on above: Performed By: #### L 500.2500, L100.0100 ####[facility] [address] [place], [address] MCHC (RBC) [Mass/Vol] 32.1 g/dL Normal 32-36 [facility] Comment on above: Performed By: #### L 500.2500, L100.0100 ####[facility] [address] [place], [address] MCV (RBC) [Entitic vol] 96.0 fL Normal 81-99 [facility] Comment on above: Performed By: #### L 500.2500, L100.0100 ####[facility] [address] [place], [address] Monocytes/100 WBC (Bld) 9.3 % Normal 0-10 [facility] Comment on above: Performed By: #### L 500.2500, L100.0100 ####[facility] [address] [place], [address] Neutrophils/100 WBC (Bld) 54.2 % Normal 47-70 [facility] Comment on above: Performed By: #### L 500.2500, L100.0100 ####[facility] [address] [place], [address] Nucleated RBC (Bld) [#/Vol] 0 10*3/uL Normal 0-5 [facility] Comment on above: Performed By: #### L 500.2500, L100.0100 ####[facility] [address] [place], [address] Platelet mean volume (Bld) [Entitic vol] 9.6 fL Normal 6.2-12.0 [facility] Comment on above: Performed By: #### L 500.2500, L100.0100 ####[facility] [address] [place], [address] Platelets (Bld) [#/Vol] 180 10*3/uL Normal 150-450 [facility] Comment on above: Performed By: #### L 500.2500, L100.0100 ####[facility] [address] [place], [address] RBC (Bld) [#/Vol] 3.25 10*6/uL Low 4.2-5.[address] [facility] Comment on above: Performed By: #### L 500.2500, L100.0100 ####[facility] [address] [place], [address] RDW SD 61.0 fl High 35.1-43.9 [facility] Comment on above: Performed By: #### L 500.2500, L100.0100 ####[facility] [address] [place], [address] WBC (Bld) [#/Vol] 7.2 10*3/uL Normal 4.4-11.0 [facility] [place] Comment on above: Performed By: #### L 500.2500, L100.0100 ####[facility] [address] [place], [address] Culture, Blood (WB)on 2023 CUB Blood cultures x2, from two different sites No growth in 5 days. Normal [facility] Comment on above: Performed By: #### M 200.1000 ####[facility] [address] [place], [address] EGD Reporton 03-16-2024 EGD Report Normal [facility] H Pylori (initial)on 024 H Pylori (initial) Normal [facility] [place] Comment on above: Performed By: #### P H.PYLORI ####[facility] [address] [place], [address] MR/POSTOP.ANEon 03-16-2024 MR/POSTOP.ANE Normal [facility] MR/[id number] 03-16-2024 MR/POSTOPAN2 Normal [facility] Surgery Specimen Level Chencho 03-16-2024 Surgery Specimen Level IV Normal [facility] Comment on above: Performed By: #### P SUIV ####[facility] [address] [place], [address] Vancomycin, Random Levelon 1 VANCO, RANDOM 16.4 ug/mL High 0.0-15.0 [facility] Comment on above: Result Comment: VANC OMYCIN STANDARD DRUG THERAPY: CRITICAL VALUE IS > 15.0 mg/LVANCOMYCIN HIGH INTENSITY THERAPY: CRITICAL VALUE IS > 20.0 mg/LPLEASE CONTACT PHARMACY SERVICES (#6103) FOR INTERPRETATIONOF RESULTS. THIS RESULT DOES NOT REPRESENT A PEAK OR TROUGHLEVEL FOR THIS DRUG. Performed By: #### L 501.8850 ####[facility] [address] [place], [address] Basic Metabolic Profile (BMP )on 03-15-2024 BUN/CRE 53.1 RATIO High 10-20 [facility] Comment on above: Performed By: #### L 100.0100, L500.2500 ####[facility] [address] [place], [address] CA,Total 8.9 mg/dL Normal 8.5-10.1 [facility] Comment on above: Performed By: #### L 100.0100, L500.2500 ####[facility] [address] [place], [address] Chloride [Moles/Vol] 113 mmol/L High 98-107 [facility] Comment on above: Performed By: #### L 100.0100, L500.2500 ####[facility] [address] [place], [address] CO2 [Moles/Vol] 26.0 mmol/L Normal 21.0-32.0 [facility] Comment on above: Performed By: #### L 100.0100, L500.2500 ####[facility] [address] [place], [address] Creatinine [Mass/Vol] 0.62 mg/dL Normal 0.55-1.02 [facility] Comment on above: Result Comment: The validity of the calculated GFR GFRAA in patients over70 years has not been determined. Clinical correlation isessential. Performed By: #### L 100.0100, L500.2500 ####[facility] [address] [place], [address] ECRCL 84.07 ml/min Normal [facility] Comment on above: Performed By: #### L 100.0100, L500.2500 ####[facility] [address] [place], [address] EST GFR - AA 121 mL/min Normal >60 [facility] Comment on above: Result Comment: Afri can Ivorian GFR Calc Performed By: #### L 100.0100, L500.2500 ####[facility] [address] [place], [address] GAP 4 Low 5-15 [facility] Comment on above: Performed By: #### L 100.0100, L500.2500 ####[facility] [address] [place], [address] GFR/1.73 sq M.predicted among non-blacks MDRD (S/P/Bld) [Vol rate/Area] 100 mL/min/{1.73_m2} Normal >60 [facility] Comment on above: Result Comment: Non- GFR Calc Performed By: #### L 100.0100, L500.2500 ####[facility] [address] [place], [address] Glucose [Mass/Vol] 97 mg/dL Normal 74-106 [facility] [place] Comment on above: Performed By: #### L 100.0100, L500.2500 ####[facility] [address] [place], [address] Potassium [Moles/Vol] 3.8 mmol/L Normal 3.5-5.1 [facility] Comment on above: Performed By: #### L 100.0100, L500.2500 ####[facility] [address] [place], [address] Sodium [Moles/Vol] 143 mmol/L Normal 136-145 [facility] [place] Comment on above: Performed By: #### L 100.0100, L500.2500 ####[facility] [address] [place], [address] Urea nitrogen [Mass/Vol] 33 mg/dL High 7-18 [facility] Comment on above: Performed By: #### L 100.0100, L500.2500 ####[facility] [address] [place], [address] CBC W/Diff, Automatedon 10-0 6-4 Absolute Lymph 1.74 X10 3/uL Normal 0.83-4.51 [facility] Comment on above: Performed By: #### L 100.0100, L500.2500 ####[facility] [address] [place], [address] Absolute Neut 5.1 X10 3/uL Normal 2.0-7.7 [facility] Comment on above: Performed By: #### L 100.0100, L500.2500 ####[facility] [address] [place], [address] Basophils/100 WBC (Bld) 0.3 % Normal 0-1 [facility] Comment on above: Performed By: #### L 100.0100, L500.2500 ####[facility] [address] [place], [address] Eosinophils/100 WBC (Bld) 4.5 % Normal 0-5 [facility] Comment on above: Performed By: #### L 100.0100, L500.2500 ####[facility] [address] [place], [address] Erythrocyte distribution width (RBC) [Ratio] 17.2 % High 11.6-14.6 [facility] Comment on above: Performed By: #### L 100.0100, L500.2500 ####[facility] [address] [place], [address] Hematocrit (Bld) [Volume fraction] 30.5 % Low 37-47 [facility] Comment on above: Performed By: #### L 100.0100, L500.2500 ####[facility] [address] [place], [address] Hemoglobin (Bld) [Mass/Vol] 9.6 g/dL Low 12.0-15.0 [facility] Comment on above: Performed By: #### L 100.0100, L500.2500 ####[facility] [address] [place], [address] IG% 0.800 Normal 0.0-0.9 [facility] Comment on above: Result Comment: IG% - Immature Granulocytes (promyelocytes, myelocytes andmetamyelocytes) > 1% indicates that a LEFT SHIFT is Present. Performed By: #### L 100.0100, L500.2500 ####[facility] [address] [place], [address] Lymphocytes/100 WBC (Bld) 21.8 % Normal 19-41 [facility] Comment on above: Performed By: #### L 100.0100, L500.2500 ####[facility] [address] [place], [address] MCH (RBC) [Entitic mass] 30.3 pg Normal 27.0-32.0 [facility] Comment on above: Performed By: #### L 100.0100, L500.2500 ####[facility] [address] [place], [address] MCHC (RBC) [Mass/Vol] 31.5 g/dL Low 32-36 [facility] Comment on above: Performed By: #### L 100.0100, L500.2500 ####[facility] [address] [place], [address] MCV (RBC) [Entitic vol] 96.2 fL Normal 81-99 [facility] Comment on above: Performed By: #### L 100.0100, L500.2500 ####[facility] [address] [place], [address] Monocytes/100 WBC (Bld) 9.1 % Normal 0-10 [facility] Comment on above: Performed By: #### L 100.0100, L500.2500 ####[facility] [address] [place], [address] Neutrophils/100 WBC (Bld) 63.5 % Normal 47-70 [facility] Comment on above: Performed By: #### L 100.0100, L500.2500 ####[facility] [address] [place], [address] Nucleated RBC (Bld) [#/Vol] 0 10*3/uL Normal 0-5 [facility] Comment on above: Performed By: #### L 100.0100, L500.2500 ####[facility] [address] [place], [address] Platelet mean volume (Bld) [Entitic vol] 9.9 fL Normal 6.2-12.0 [facility] Comment on above: Performed By: #### L 100.0100, L500.2500 ####[facility] [address] [place], [address] Platelets (Bld) [#/Vol] 190 10*3/uL Normal 150-450 [facility] Comment on above: Performed By: #### L 100.0100, L500.2500 ####[facility] [address] [place], [address] RBC (Bld) [#/Vol] 3.17 10*6/uL Low 4.2-5.[address] [facility] Comment on above: Performed By: #### L 100.0100, L500.2500 ####[facility] [address] [place], [address] RDW SD 61.3 fl High 35.1-43.9 [facility] Comment on above: Performed By: #### L 100.0100, L500.2500 ####[facility] [address] [place], [address] WBC (Bld) [#/Vol] 8.0 10*3/uL Normal 4.4-11.0 [facility] Comment on above: Performed By: #### L 100.0100, L500.2500 ####[facility] [address] [place], [address] MR/PN.GIon 03-15-2024 MR/PN.GI Normal [facility] Vancomycin, Trough Levelon 1 VANCO, TROUGH 20.7 ug/mL High 5.0-15.0 [facility] Comment on above: Order Comment: Comme nts: Trough to be drawn 30 mins prior to scheduled [id number] Result Comment: VANC OMYCIN STANDARED DRUG THERAPY TROUGH LEVEL: 5.0 - 15.0 mg/LVANCOMYCIN HIGH INTENSITY THERAPY TROUGH LEVEL: 15.0 - 20.0 mg/LHigh Intensity therapy recommended for serious lifethreatening infections include:- Lbujmwrftw-Qxsjxzpfprxs-Yqljwzyyq (Ventilator/Healtcare Associated)-SepsisPLEASE CONTACT PHARMACY SERVICES (#8461) FOR INTERPRETATIONOF RESULTS. Performed By: #### L 501.8820 ####[facility] [address] [place], [address] Basic Metabolic Profile (BMP )on 03-14-2024 BUN/CRE 51.2 RATIO High 10-20 [facility] Comment on above: Performed By: #### L 100.0100, L500.2500 ####[facility] [address] [place], [address] CA,Total 8.9 mg/dL Normal 8.5-10.1 [facility] Comment on above: Performed By: #### L 100.0100, L500.2500 ####[facility] [address] [place], [address] Chloride [Moles/Vol] 112 mmol/L High 98-107 [facility] Comment on above: Performed By: #### L 100.0100, L500.2500 ####[facility] [address] [place], [address] CO2 [Moles/Vol] 24.0 mmol/L Normal 21.0-32.0 [facility] Comment on above: Performed By: #### L 100.0100, L500.2500 ####[facility] [address] [place], [address] Creatinine [Mass/Vol] 0.78 mg/dL Normal 0.55-1.02 [facility] Comment on above: Result Comment: The validity of the calculated GFR GFRAA in patients over70 years has not been determined. Clinical correlation isessential. Performed By: #### L 100.0100, L500.2500 ####[facility] [address] [place], [address] ECRCL 82.01 ml/min Normal [facility] Comment on above: Performed By: #### L 100.0100, L500.2500 ####[facility] [address] [place], [address] EST GFR - AA 92 mL/min Normal >60 [facility] Comment on above: Result Comment: Afri can Ivorian GFR Calc Performed By: #### L 100.0100, L500.2500 ####[facility] [address] [place], [address] GAP 4 Low 5-15 [facility] Comment on above: Performed By: #### L 100.0100, L500.2500 ####[facility] [address] [place], [address] GFR/1.73 sq M.predicted among non-blacks MDRD (S/P/Bld) [Vol rate/Area] 76 mL/min/{1.73_m2} Normal >60 [facility] Comment on above: Result Comment: Non- GFR Calc Performed By: #### L 100.0100, L500.2500 ####[facility] [address] [place], [address] Glucose [Mass/Vol] 110 mg/dL High 74-106 [facility] Comment on above: Result Comment: Fast ing Glucose result from 100 to 125 mg/dLsuggests IMPAIRED HOMEOSTASIS per A.D.A. criteria. Performed By: #### L 100.0100, L500.2500 ####[facility] [address] [place], [address] Potassium [Moles/Vol] 3.5 mmol/L Normal 3.5-5.1 [facility] Comment on above: Performed By: #### L 100.0100, L500.2500 ####[facility] [address] [place], [address] Sodium [Moles/Vol] 141 mmol/L Normal 136-145 [facility] Comment on above: Performed By: #### L 100.0100, L500.2500 ####[facility] [address] [place], [address] Urea nitrogen [Mass/Vol] 40 mg/dL High 7-18 [facility] Comment on above: Performed By: #### L 100.0100, L500.2500 ####[facility] [address], [address] CBC W/Diff, Automatedon 10-0 5-2024 Absolute Lymph 1.83 X10 3/uL Normal 0.83-4.51 [facility] Comment on above: Performed By: #### L 100.0100, L500.2500 ####[facility] [address] [place], [address] Absolute Neut 10.4 X10 3/uL High 2.0-7.7 [facility] Comment on above: Performed By: #### L 100.0100, L500.2500 ####[facility] [address] [place], [address] Basophils/100 WBC (Bld) 0.3 % Normal 0-1 [facility] Comment on above: Performed By: #### L 100.0100, L500.2500 ####[facility] [address] [place], [address] Eosinophils/100 WBC (Bld) 3.5 % Normal 0-5 [facility] Comment on above: Performed By: #### L 100.0100, L500.2500 ####[facility] [address] [place], [address] Erythrocyte distribution width (RBC) [Ratio] 17.2 % High 11.6-14.6 [facility] Comment on above: Performed By: #### L 100.0100, L500.2500 ####[facility] [address] [place], [address] Hematocrit (Bld) [Volume fraction] 29.7 % Low 37-47 [facility] Comment on above: Performed By: #### L 100.0100, L500.2500 ####[facility] [address] [place], [address] Hemoglobin (Bld) [Mass/Vol] 9.5 g/dL Low 12.0-15.0 [facility] Comment on above: Performed By: #### L 100.0100, L500.2500 ####[facility] [address] [place], [address] IG% 0.400 Normal 0.0-0.9 [facility] Comment on above: Result Comment: IG% - Immature Granulocytes (promyelocytes, myelocytes andmetamyelocytes) > 1% indicates that a LEFT SHIFT is Present. Performed By: #### L 100.0100, L500.2500 ####[facility] [address] [place], [address] Lymphocytes/100 WBC (Bld) 13.4 % Low 19-41 [facility] Comment on above: Performed By: #### L 100.0100, L500.2500 ####[facility] [address] [place], [address] MCH (RBC) [Entitic mass] 31.0 pg Normal 27.0-32.0 [facility] Comment on above: Performed By: #### L 100.0100, L500.2500 ####[facility] [address] [place], [address] MCHC (RBC) [Mass/Vol] 32.0 g/dL Normal 32-36 [facility] Comment on above: Performed By: #### L 100.0100, L500.2500 ####[facility] [address] [place], [address] MCV (RBC) [Entitic vol] 97.1 fL Normal 81-99 [facility] Comment on above: Performed By: #### L 100.0100, L500.2500 ####[facility] [address], [address] Monocytes/100 WBC (Bld) 6.2 % Normal 0-10 [facility] Comment on above: Performed By: #### L 100.0100, L500.2500 ####[facility] [address] [place], [address] Neutrophils/100 WBC (Bld) 76.2 % High 47-70 [facility] Comment on above: Performed By: #### L 100.0100, L500.2500 ####[facility] [address] [place], [address] Nucleated RBC (Bld) [#/Vol] 0 10*3/uL Normal 0-5 [facility] Comment on above: Performed By: #### L 100.0100, L500.2500 ####[facility] [address] [place], [address] Platelet mean volume (Bld) [Entitic vol] 9.6 fL Normal 6.2-12.0 [facility] Comment on above: Performed By: #### L 100.0100, L500.2500 ####[facility] [address] [place], [address] Platelets (Bld) [#/Vol] 156 10*3/uL Normal 150-450 [facility] Comment on above: Performed By: #### L 100.0100, L500.2500 ####[facility] [address] [place], [address] RBC (Bld) [#/Vol] 3.06 10*6/uL Low 4.2-5.[address] [facility] Comment on above: Performed By: #### L 100.0100, L500.2500 ####[facility] [address] [place], [address] RDW SD 61.5 fl High 35.1-43.9 [facility] Comment on above: Performed By: #### L 100.0100, L500.2500 ####[facility] [address] [place], [address] WBC (Bld) [#/Vol] 13.6 10*3/uL High 4.4-11.[address] [facility] Comment on above: Performed By: #### L 100.0100, L500.2500 ####[facility] [address] [place], [address] CBC W/Diff, Automatedon 10-0 4-2023 Absolute Lymph 1.57 X10 3/uL Normal 0.83-4.51 [facility] Comment on above: Performed By: #### L 500.4050, L100.0100 ####[facility] [address] [place], [address] Absolute Neut 15.6 X10 3/uL High 2.0-7.7 [facility] Comment on above: Performed By: #### L 500.4050, L100.0100 ####[facility] [address] [place], [address] Basophils/100 WBC (Bld) 0.1 % Normal 0-1 [facility] Comment on above: Performed By: #### L 500.4050, L100.0100 ####[facility] [address] [place], [address] Eosinophils/100 WBC (Bld) 0.5 % Normal 0-5 [facility] Comment on above: Performed By: #### L 500.4050, L100.0100 ####[facility] [address] [place], [address] Erythrocyte distribution width (RBC) [Ratio] 17.2 % High 11.6-14.6 [facility] Comment on above: Performed By: #### L 500.4050, L100.0100 ####[facility] [address] [place], [address] Hematocrit (Bld) [Volume fraction] 30.1 % Low 37-47 [facility] Comment on above: Performed By: #### L 500.4050, L100.0100 ####[facility] [address] [place], [address] Hemoglobin (Bld) [Mass/Vol] 9.5 g/dL Low 12.0-15.0 [facility] Comment on above: Performed By: #### L 500.4050, L100.0100 ####[facility] [address] [place], [address] IG% 0.500 Normal 0.0-0.9 [facility] Comment on above: Result Comment: IG% - Immature Granulocytes (promyelocytes, myelocytes andmetamyelocytes) > 1% indicates that a LEFT SHIFT is Present. Performed By: #### L 500.4050, L100.0100 ####[facility] [address] [place], [address] Lymphocytes/100 WBC (Bld) 8.5 % Low 19-41 [facility] Comment on above: Performed By: #### L 500.4050, L100.0100 ####[facility] [address] [place], [address] MCH (RBC) [Entitic mass] 30.9 pg Normal 27.0-32.0 [facility] Comment on above: Performed By: #### L 500.4050, L100.0100 ####[facility] [address] [place], [address] MCHC (RBC) [Mass/Vol] 31.6 g/dL Low 32-36 [facility] Comment on above: Performed By: #### L 500.4050, L100.0100 ####[facility] [address] [place], [address] MCV (RBC) [Entitic vol] 98.0 fL Normal 81-99 [facility] Comment on above: Performed By: #### L 500.4050, L100.0100 ####[facility] [address] [place], [address] Monocytes/100 WBC (Bld) 6.1 % Normal 0-10 [facility] Comment on above: Performed By: #### L 500.4050, L100.0100 ####[facility] [address] [place], [address] Neutrophils/100 WBC (Bld) 84.3 % High 47-70 [facility] Comment on above: Performed By: #### L 500.4050, L100.0100 ####[facility] [address] [place], [address] Nucleated RBC (Bld) [#/Vol] 0 10*3/uL Normal 0-5 [facility] Comment on above: Performed By: #### L 500.4050, L100.0100 ####[facility] [address] [place], [address] Platelet mean volume (Bld) [Entitic vol] 10.1 fL Normal 6.2-12.0 [facility] Comment on above: Performed By: #### L 500.4050, L100.0100 ####[facility] [address] [place], [address] Platelets (Bld) [#/Vol] 150 10*3/uL Normal 150-450 [facility] Comment on above: Performed By: #### L 500.4050, L100.0100 ####[facility] [address] [place], [address] RBC (Bld) [#/Vol] 3.07 10*6/uL Low 4.2-5.[address] [facility] Comment on above: Performed By: #### L 500.4050, L100.0100 ####[facility] [address] [place], [address] RDW SD 61.9 fl High 35.1-43.9 [facility] Comment on above: Performed By: #### L 500.4050, L100.0100 ####[facility] [address] [place], [address] WBC (Bld) [#/Vol] 18.5 10*3/uL High 4.4-11.[address] [facility] Comment on above: Performed By: #### L 500.4050, L100.0100 ####[facility] [address] [place], [address] Comprehensive Metabolic Prof ilon 03-13-2024 Albumin [Mass/Vol] 2.3 g/dL Low 3.2-5.0 [facility] Comment on above: Performed By: #### L 500.4050, L100.0100 ####[facility] [address] [place], [address] Albumin/Globulin [Mass ratio] 0.6 {ratio} Low 0.9-2.4 [facility] Comment on above: Performed By: #### L 500.4050, L100.0100 ####[facility] [address] [place], [address] ALK P 115 U/L Normal 45-117 [facility] Comment on above: Performed By: #### L 500.4050, L100.0100 ####[facility] [address] [place], [address] ALT [Catalytic activity/Vol] 25 U/L Normal 13-56 [facility] Comment on above: Performed By: #### L 500.4050, L100.0100 ####[facility] [address] [place], [address] AST [Catalytic activity/Vol] 29 U/L Normal 15-37 [facility] Comment on above: Performed By: #### L 500.4050, L100.0100 ####[facility] [address] [place], [address] Bilirubin [Mass/Vol] 0.20 mg/dL Normal 0.20-1.00 [facility] Comment on above: Result Comment: For patients on eltrombopag therapy, use of Dimension [place] TBIL is not recommended. Performed By: #### L 500.4050, L100.0100 ####[facility] [address] [place], [address] BUN/CRE 42.7 RATIO High 10-20 [facility] Comment on above: Performed By: #### L 500.4050, L100.0100 ####[facility] [address] [place], [address] CA,Total 8.7 mg/dL Normal 8.5-10.1 [facility] Comment on above: Performed By: #### L 500.4050, L100.0100 ####[facility] [address] [place], [address] Chloride [Moles/Vol] 116 mmol/L High 98-107 [facility] Comment on above: Performed By: #### L 500.4050, L100.0100 ####[facility] [address] [place], [address] CO2 [Moles/Vol] 26.0 mmol/L Normal 21.0-32.0 [facility] Comment on above: Performed By: #### L 500.4050, L100.0100 ####[facility] [address] [place], [address] Creatinine [Mass/Vol] 0.94 mg/dL Normal 0.55-1.02 [facility] Comment on above: Result Comment: The validity of the calculated GFR GFRAA in patients over70 years has not been determined. Clinical correlation isessential. Performed By: #### L 500.4050, L100.0100 ####[facility] [address] [place], [address] ECRCL 69.79 ml/min Normal [facility] Comment on above: Performed By: #### L 500.4050, L100.0100 ####[facility] [address] [place], [address] EST GFR - AA 75 mL/min Normal >60 [facility] Comment on above: Result Comment: Afri can Ivorian GFR Calc Performed By: #### L 500.4050, L100.0100 ####[facility] [address] [place], [address] GAP 3 Low 5-15 [facility] Comment on above: Performed By: #### L 500.4050, L100.0100 ####[facility] [address] [place], [address] GFR/1.73 sq M.predicted among non-blacks MDRD (S/P/Bld) [Vol rate/Area] 62 mL/min/{1.73_m2} Normal >60 [facility] Comment on above: Result Comment: Non- GFR Calc Performed By: #### L 500.4050, L100.0100 ####[facility] [address] [place], [address] Globulin (S) [Mass/Vol] 4.0 g/dL Normal 2.2-4.2 [facility] Comment on above: Performed By: #### L 500.4050, L100.0100 ####[facility] [address] [place], [address] Glucose [Mass/Vol] 106 mg/dL Normal 74-106 [facility] Comment on above: Result Comment: Fast ing Glucose result from 100 to 125 mg/dLsuggests IMPAIRED HOMEOSTASIS per A.D.A. criteria. Performed By: #### L 500.4050, L100.0100 ####[facility] [address] [place], [address] Potassium [Moles/Vol] 3.5 mmol/L Normal 3.5-5.1 [facility] Comment on above: Performed By: #### L 500.4050, L100.0100 ####[facility] [address] [place], [address] Sodium [Moles/Vol] 145 mmol/L Normal 136-145 [facility] Comment on above: Performed By: #### L 500.4050, L100.0100 ####[facility] [address] [place], [address] T PROT 6.3 g/dL Low 6.4-8.2 [facility] Comment on above: Performed By: #### L 500.4050, L100.0100 ####[facility] [address] [place], [address] Urea nitrogen [Mass/Vol] 40 mg/dL High 7-18 [facility] Comment on above: Performed By: #### L 500.4050, L100.0100 ####[facility] [address] [place], [address] Urine Cultureon 03-13-2024 URC Normal [facility] Comment on above: Performed By: #### M 100.678, M100.6950, L400.0001, M100.2200 ####[facility] [address] [place], [address] Vancomycin, Trough Levelon 1 VANCO, TROUGH 15.7 ug/mL High 5.0-15.0 [facility] Comment on above: Result Comment: VANC OMYCIN STANDARED DRUG THERAPY TROUGH LEVEL: 5.0 - 15.0 mg/LVANCOMYCIN HIGH INTENSITY THERAPY TROUGH LEVEL: 15.0 - 20.0 mg/LHigh Intensity therapy recommended for serious lifethreatening infections include:- Cekcpbdkma-Itbfxedkpjii-Ktrrngtyg (Ventilator/Healtcare Associated)-SepsisPLEASE CONTACT PHARMACY SERVICES (#3708) FOR INTERPRETATIONOF RESULTS. Performed By: #### L 501.8820 ####[facility] [address] [place], [address] Basic Metabolic Profile (BMP )on 03-12-2024 BUN Normal 7-18 [facility] Comment on above: Result Comment: DUPL ICATE-CMP ORDERED Performed By: #### L 300.3900, L501.9985, L300.4310, L500.2500 ####[facility] [address] [place], [address] BUN/CRE Normal 10-20 [facility] Comment on above: Result Comment: DUPL ICATE-CMP ORDERED Performed By: #### L 300.3900, L501.9985, L300.4310, L500.2500 ####[facility] [address] [place], [address] CA,Total Normal 8.5-10.1 [facility] Comment on above: Result Comment: DUPL ICATE-CMP ORDERED Performed By: #### L 300.3900, L501.9985, L300.4310, L500.2500 ####[facility] [address] [place], [address] CL Normal 98-107 [facility] Comment on above: Result Comment: DUPL ICATE-CMP ORDERED Performed By: #### L 300.3900, L501.9985, L300.4310, L500.2500 ####[facility] [address] [place], [address] CO2 Normal 21.0-32.0 [facility] Comment on above: Result Comment: DUPL ICATE-CMP ORDERED Performed By: #### L 300.3900, L501.9985, L300.4310, L500.2500 ####[facility] [address] [place], [address] CREAT,SERUM Normal 0.55-1.02 [facility] Comment on above: Result Comment: DUPL ICATE-CMP ORDERED Performed By: #### L 300.3900, L501.9985, L300.4310, L500.2500 ####[facility] [address] [place], [address] EST GFR Normal >60 [facility] Comment on above: Result Comment: DUPL ICATE-CMP ORDERED Performed By: #### L 300.3900, L501.9985, L300.4310, L500.2500 ####[facility] [address] [place], [address] EST GFR - AA Normal >60 [facility] Comment on above: Result Comment: DUPL ICATE-CMP ORDERED Performed By: #### L 300.3900, L501.9985, L300.4310, L500.2500 ####[facility] [address] [place], [address] GAP Normal 5-15 [facility] Comment on above: Result Comment: DUPL ICATE-CMP ORDERED Performed By: #### L 300.3900, L501.9985, L300.4310, L500.2500 ####[facility] [address] [place], [address] GLU Normal 74-106 [facility] Comment on above: Result Comment: DUPL ICATE-CMP ORDERED Performed By: #### L 300.3900, L501.9985, L300.4310, L500.2500 ####[facility] [address] [place], [address] Potassium Normal 3.5-5.1 [facility] Comment on above: Result Comment: DUPL ICATE-CMP ORDERED Performed By: #### L 300.3900, L501.9985, L300.4310, L500.2500 ####[facility] [address] [place], [address] Basic Metabolic Profile (BMP) Normal 136-145 [facility] Comment on above: Result Comment: DUPL ICATE-CMP ORDERED Performed By: #### L 300.3900, L501.9985, L300.4310, L500.2500 ####[facility] [address] [place], [address] Bedside Glucoseon 03-12-2024 FINGERSTICK GLU 140 mg/dL High 74-106 [facility] Comment on above: Result Comment: KIMBERLY CAMPOS OF PATIENT CARE PER NURSING PROTOCOL Performed By: #### L 501.080 ####[facility] [address] [place], [address] Blood [facility] TERA TEST Positive Normal [facility] Comment on above: Performed By: #### L 9000.0800 ####[facility] [address] [place], [address] Base excess Calc (Bld) [Moles/Vol] 1 mmol/L Normal -2 to +2 [facility] Comment on above: Performed By: #### L 9000.0800 ####[facility] [address] [place], [address] Blood Gas Type ART Normal [facility] Comment on above: Performed By: #### L 9000.0800 ####[facility] [address] [place], [address] CO2 [Moles/Vol] 25 mmol/L Normal [facility] Comment on above: Performed By: #### L 9000.0800 ####[facility] [address] [place], [address] FI02 60.0 Normal [facility] Comment on above: Performed By: #### L 9000.0800 ####[facility] [address] [place], [address] HCO3 (Bld) [Moles/Vol] 24.4 mmol/L Normal 22-26 [facility] Comment on above: Performed By: #### L 0.0800 ####[facility] [address] [place], [address] Mode Not entered Normal [facility] Comment on above: Performed By: #### L 9000.0800 ####[facility] [address] [place], [address] O2 Delivery Dev airvo Normal [facility] Comment on above: Performed By: #### L 0.0800 ####[facility] [address] [place], [address] pCO2 32.5 mmHg Low 35-45 [facility] Comment on above: Performed By: #### L 9000.0800 ####[facility] [address] [place], [address] pH (Bld) 7.48 [pH] High 7.35-7.45 [facility] Comment on above: Performed By: #### L 8999.0800 ####[facility] [address] [place], [address] PO2 109 mmHG High 75-100 [facility] Comment on above: Performed By: #### L 0.0800 ####[facility] [address] [place], [address] SITE R Radial Normal [facility] Comment on above: Performed By: #### L 0.0800 ####[facility] [address] [place], [address] SO2 99 Normal 95-99 [facility] Comment on above: Performed By: #### L 9000.0800 ####[facility] [address] [place], [address] CBC W/Diff, Automatedon 10-0 3-2024 Absolute Lymph 0.94 X10 3/uL Normal 0.83-4.51 [facility] Comment on above: Performed By: #### L 501.9520, L500.4050, L506.0400, L100.0100 ####[facility] [address] [place], [address] Absolute Neut 15.9 X10 3/uL High 2.0-7.7 [facility] Comment on above: Performed By: #### L 501.9520, L500.4050, L506.0400, L100.0100 ####[facility] [address] [place], [address] Basophils/100 WBC (Bld) 0.1 % Normal 0-1 [facility] Comment on above: Performed By: #### L 501.9520, L500.4050, L506.0400, L100.0100 ####[facility] [address] [place], [address] Eosinophils/100 WBC (Bld) 0.0 % Normal 0-5 [facility] Comment on above: Performed By: #### L 501.9520, L500.4050, L506.0400, L100.0100 ####[facility] [address] [place], [address] Erythrocyte distribution width (RBC) [Ratio] 16.5 % High 11.6-14.6 [facility] Comment on above: Performed By: #### L 501.9520, L500.4050, L506.0400, L100.0100 ####[facility] [address] [place], [address] Hematocrit (Bld) [Volume fraction] 34.6 % Low 37-47 [facility] Comment on above: Performed By: #### L 501.9520, L500.4050, L506.0400, L100.0100 ####[facility] [address] [place], [address] Hemoglobin (Bld) [Mass/Vol] 11.4 g/dL Low 12.0-15.0 [facility] Comment on above: Performed By: #### L 501.9520, L500.4050, L506.0400, L100.0100 ####[facility] [address] [place], [address] IG% 0.400 Normal 0.0-0.9 [facility] Comment on above: Result Comment: IG% - Immature Granulocytes (promyelocytes, myelocytes andmetamyelocytes) > 1% indicates that a LEFT SHIFT is Present. Performed By: #### L 501.9520, L500.4050, L506.0400, L100.0100 ####[facility] [address] [place], [address] Lymphocytes/100 WBC (Bld) 5.3 % Low 19-41 [facility] Comment on above: Performed By: #### L 501.9520, L500.4050, L506.0400, L100.0100 ####[facility] [address] [place], [address] MCH (RBC) [Entitic mass] 30.6 pg Normal 27.0-32.0 [facility] Comment on above: Performed By: #### L 501.9520, L500.4050, L506.0400, L100.0100 ####[facility] [address] [place], [address] MCHC (RBC) [Mass/Vol] 32.9 g/dL Normal 32-36 [facility] Comment on above: Performed By: #### L 501.9520, L500.4050, L506.0400, L100.0100 ####[facility] [address] [place], [address] MCV (RBC) [Entitic vol] 93.0 fL Normal 81-99 [facility] Comment on above: Performed By: #### L 501.9520, L500.4050, L506.0400, L100.0100 ####[facility] [address] [place], [address] Monocytes/100 WBC (Bld) 5.2 % Normal 0-10 [facility] Comment on above: Performed By: #### L 501.9520, L500.4050, L506.0400, L100.0100 ####[facility] [address] [place], [address] Neutrophils/100 WBC (Bld) 89.0 % High 47-70 [facility] Comment on above: Performed By: #### L 501.9520, L500.4050, L506.0400, L100.0100 ####[facility] [address] [place], [address] Nucleated RBC (Bld) [#/Vol] 0 10*3/uL Normal 0-5 [facility] Comment on above: Performed By: #### L 501.9520, L500.4050, L506.0400, L100.0100 ####[facility] [address] [place], [address] Platelet mean volume (Bld) [Entitic vol] 10.3 fL Normal 6.2-12.0 [facility] Comment on above: Performed By: #### L 501.9520, L500.4050, L506.0400, L100.0100 ####[facility] [address] [place], [address] Platelets (Bld) [#/Vol] 185 10*3/uL Normal 150-450 [facility] Comment on above: Performed By: #### L 501.9520, L500.4050, L506.0400, L100.0100 ####[facility] [address] [place], [address] RBC (Bld) [#/Vol] 3.72 10*6/uL Low 4.2-5.[address] [facility] Comment on above: Performed By: #### L 501.9520, L500.4050, L506.0400, L100.0100 ####[facility] [address] [place], [address] RDW SD 55.4 fl High 35.1-43.9 [facility] Comment on above: Performed By: #### L 501.9520, L500.4050, L506.0400, L100.0100 ####[facility] [address] [place], [address] WBC (Bld) [#/Vol] 17.8 10*3/uL High 4.4-11.[address] [facility] Comment on above: Performed By: #### L 501.9520, L500.4050, L506.0400, L100.0100 ####[facility] [address] [place], [address] CPK Total, Creatine Kinaseon 03-12-2024 CPK TOTAL 218 U/L High 26-192 [facility] Comment on above: Performed By: #### L 501.3620, L300.4310 ####[facility] [address] [place], [address] Chest 1 View (Portable)on Chest 1 View (Portable) Normal [facility] Chest 1 View (Portable) Normal [facility] Comprehensive Metabolic Prof ilon 10-03-2024 Albumin [Mass/Vol] 2.6 g/dL Low 3.2-5.0 [facility] Comment on above: Performed By: #### L 501.9520, L500.4050, L506.0400, L100.0100 ####[facility] [address] [place], [address] Albumin/Globulin [Mass ratio] 0.6 {ratio} Low 0.9-2.4 [facility] Comment on above: Performed By: #### L 501.9520, L500.4050, L506.0400, L100.0100 ####[facility] [address] [place], [address] ALK P 138 U/L High 45-117 [facility] Comment on above: Performed By: #### L 501.9520, L500.4050, L506.0400, L100.0100 ####[facility] [address], [address] ALT [Catalytic activity/Vol] 30 U/L Normal 13-56 [facility] Comment on above: Performed By: #### L 501.9520, L500.4050, L506.0400, L100.0100 ####[facility] [address], [address] AST [Catalytic activity/Vol] 33 U/L Normal 15-37 [facility] Comment on above: Performed By: #### L 501.9520, L500.4050, L506.0400, L100.0100 ####[facility] [address] [place], [address] Bilirubin [Mass/Vol] 0.30 mg/dL Normal 0.20-1.00 [facility] Comment on above: Result Comment: For patients on eltrombopag therapy, use of Dimension [place] TBIL is not recommended. Performed By: #### L 501.9520, L500.4050, L506.0400, L100.0100 ####[facility] [address] [place], [address] BUN/CRE 36.6 RATIO High 10-20 [facility] Comment on above: Performed By: #### L 501.9520, L500.4050, L506.0400, L100.0100 ####[facility] [address] [place], [address] CA,Total 9.1 mg/dL Normal 8.5-10.1 [facility] Comment on above: Performed By: #### L 501.9520, L500.4050, L506.0400, L100.0100 ####[facility] [address] [place], [address] Chloride [Moles/Vol] 108 mmol/L High 98-107 [facility] Comment on above: Performed By: #### L 501.9520, L500.4050, L506.0400, L100.0100 ####[facility] [address] [place], [address] CO2 [Moles/Vol] 23.0 mmol/L Normal 21.0-32.0 [facility] Comment on above: Performed By: #### L 501.9520, L500.4050, L506.0400, L100.0100 ####[facility] [address] [place], [address] Creatinine [Mass/Vol] 1.42 mg/dL High 0.55-1.02 [facility] Comment on above: Result Comment: The validity of the calculated GFR GFRAA in patients over70 years has not been determined. Clinical correlation isessential. Performed By: #### L 501.9520, L500.4050, L506.0400, L100.0100 ####[facility] [address] [place], [address] ECRCL 45.24 ml/min Normal [facility] Comment on above: Performed By: #### L 501.9520, L500.4050, L506.0400, L100.0100 ####[facility] [address] [place], [address] EST GFR - AA 46 mL/min Low >60 [facility] Comment on above: Result Comment: Afri can Ivorian GFR Calc Performed By: #### L 501.9520, L500.4050, L506.0400, L100.0100 ####[facility] [address] [place], [address] GAP 9 Normal 5-15 [facility] Comment on above: Performed By: #### L 501.9520, L500.4050, L506.0400, L100.0100 ####[facility] [address] [place], [address] GFR/1.73 sq M.predicted among non-blacks MDRD (S/P/Bld) [Vol rate/Area] 38 mL/min/{1.73_m2} Low >60 [facility] Comment on above: Result Comment: Non- GFR Calc Performed By: #### L 501.9520, L500.4050, L506.0400, L100.0100 ####[facility] [address] [place], [address] Globulin (S) [Mass/Vol] 4.5 g/dL High 2.2-4.2 [facility] Comment on above: Performed By: #### L 501.9520, L500.4050, L506.0400, L100.0100 ####[facility] [address] [place], [address] Glucose [Mass/Vol] 140 mg/dL High 74-106 [facility] Comment on above: Result Comment: Fast ing Glucose result greater than or equal to 126 mg/dLsuggests DIABETES MELLITUS per A.D.A. criteria. Performed By: #### L 501.9520, L500.4050, L506.0400, L100.0100 ####[facility] [address] [place], [address] Potassium [Moles/Vol] 4.2 mmol/L Normal 3.5-5.1 [facility] Comment on above: Performed By: #### L 501.9520, L500.4050, L506.0400, L100.0100 ####[facility] [address] [place], [address] Sodium [Moles/Vol] 140 mmol/L Normal 136-145 [facility] Comment on above: Performed By: #### L 501.9520, L500.4050, L506.0400, L100.0100 ####[facility] [address] [place], [address] T PROT 7.1 g/dL Normal 6.4-8.2 [facility] Comment on above: Performed By: #### L 501.9520, L500.4050, L506.0400, L100.0100 ####[facility] [address] [place], [address] Urea nitrogen [Mass/Vol] 52 mg/dL High 7-18 [facility] Comment on above: Performed By: #### L 501.9520, L500.4050, L506.0400, L100.0100 ####[facility] [address] [place], [address] Consultation - Infectious Dx on 03-12-2024 Consultation - Infectious Dx Normal [facility] Consultation - Intensiviston 03-12-2024 Consultation - Mail Processing Associate Normal [facility] HH, Hemoglobin AND Hematocri ton 03-12-2024 Hematocrit (Bld) [Volume fraction] 34.9 % Low 37-47 [facility] Comment on above: Performed By: #### L 100.0600 ####[facility] [address] [place], [place], [address](820) Hemoglobin (Bld) [Mass/Vol] 11.8 g/dL Low 12.0-15.0 [facility] Comment on above: Performed By: #### L 100.0600 ####[facility] [address] [place], [address] Hemoglobin A1con 03-12-2024 HbA1c (Bld) [Mass fraction] 6.1 % High 3.8-5.6 [facility] Comment on above: Result Comment: Norm al < 5.7 % Prediabetic 5.7 - 6.4 % Diabetic >or= 6.5 % Please note range changes. Performed By: #### L 300.3900, L501.9985, L300.4310, L500.2500 ####[facility] [address] [place], [address] L3700.3000on 03-12-2024 PHENobarbital [Mass/Vol] 54 ug/mL Abnormal 15-40 [facility] Comment on above: Result Comment: Dete ction Limit = 3Patient drug level exceeds published reference range.Evaluate clinically for signs of potential toxicity.Performed at: - [facility] [id number] Director: Jose Vicente PhD, Phone: [phone] Performed By: #### L 3700.3000, L500.4050, L300.4310, L503.6005, L300.3900, L100.0100 ####[facility] [address] [place], [address] Lactic Acidon 03-12-2024 Lactate [Moles/Vol] 1.1 mmol/L Normal 0.4-1.[address] [facility] Comment on above: Order Comment: Comme nts: if result >2, system reflex orders 2nd test @ 4hrsY Performed By: #### M 200.1000, L503.6005 ####[facility] [address] [place], [address] M8200.1000on 03-12-2024 M8200.1000 Normal [facility] Comment on above: Performed By: #### M 8200.1000 ####[facility] [address] [place], [address] MR/CON.PCM.GIon 03-12-2024 MR/CON.PCM.GI Normal [facility] MR/CON.PCM.NEon 03-12-2024 MR/CON.PCM.NE Normal [facility] Partial Thromboplast Timeon 03-12-2024 aPTT Coag (Bld) [Time] 48.9 s High 24.1-36.2 [facility] Comment on above: Performed By: #### L 501.3620, L300.4310 ####[facility] [address] [place], [address] aPTT Coag (Bld) [Time] 50.1 s High 24.1-36.2 [facility] Comment on above: Performed By: #### L 300.3900, L501.9985, L300.4310, L500.2500 ####[facility] [address] [place], [address] Prothrombin Time w/INRon INR Coag (PPP) [Relative time] 1.3 {INR} [facility] Comment on above: Performed By: #### L 300.3900, L501.9985, L300.4310, L500.2500 ####[facility] [address] [place], [address] PT Coag (PPP) [Time] 16.5 s High 11.7-14.9 [facility] Comment on above: Performed By: #### L 300.3900, L501.9985, L300.4310, L500.2500 ####[facility] [address] [place], [address] Strep pneumoniae Antig(UR,CS F)on 03-12-2024 STPAG Normal [facility] Comment on above: Performed By: #### M 300.0440 ####[facility] [address] [place], [address] T4 Free Directon 03-12-2024 T4 FREE DIRECT 1.07 ng/dL Normal 0.76-1.46 [facility] Comment on above: Performed By: #### L 501.9520, L500.4050, L506.0400, L100.0100 ####[facility] [address] [place], [address] Thyroid Stim Hormone (TSH)on 03-12-2024 TSH 0.431 uIU/mL Normal 0.358-3.740 [facility] Comment on above: Performed By: #### L 501.9520, L500.4050, L506.0400, L100.0100 ####[facility] [address] [place], [address] Venous Duplex US - Ambrose Extre mon 03-12-2024 Venous Duplex US - Ambrose Extrem Normal [facility] 12 Lead EKGon 03-11-2024 12 Lead EKG Normal [facility] BNP,B-Type NATRIURETIC PEPTI Chris 03-11-2024 Natriuretic peptide B (Bld) [Mass/Vol] 82.5 pg/mL Normal 0-100 [facility] Comment on above: Performed By: #### L 501.3620, L504.2610, L503.6620, L509.7000, L501.4020, L501.6710, L501.5200 ####[facility] [address] [place], [address] Brain/Head without Contrasto n 03-11-2024 Brain/Head without Contrast Normal [facility] CBC W/Diff, Automatedon 10-0 2-2024 Absolute Lymph 1.23 X10 3/uL Normal 0.83-4.51 [facility] Comment on above: Performed By: #### L 3700.3000, L500.4050, L300.4310, L503.6005, L300.3900, L100.0100 ####[facility] [address] [place], [address] Absolute Neut 7.5 X10 3/uL Normal 2.0-7.7 [facility] Comment on above: Performed By: #### L 3700.3000, L500.4050, L300.4310, L503.6005, L300.3900, L100.0100 ####[facility] [address] [place], [address] Basophils/100 WBC (Bld) 0.2 % Normal 0-1 [facility] Comment on above: Performed By: #### L 3700.3000, L500.4050, L300.4310, L503.6005, L300.3900, L100.0100 ####[facility] [address] [place], [address] Eosinophils/100 WBC (Bld) 0.1 % Normal 0-5 [facility] Comment on above: Performed By: #### L 3700.3000, L500.4050, L300.4310, L503.6005, L300.3900, L100.0100 ####[facility] [address] [place], [address] Erythrocyte distribution width (RBC) [Ratio] 16.4 % High 11.6-14.6 [facility] Comment on above: Performed By: #### L 3700.3000, L500.4050, L300.4310, L503.6005, L300.3900, L100.0100 ####[facility] [address] [place], [address] Hematocrit (Bld) [Volume fraction] 39.4 % Normal 37-47 [facility] Comment on above: Performed By: #### L 3700.3000, L500.4050, L300.4310, L503.6005, L300.3900, L100.0100 ####[facility] [address] [place], [address] Hemoglobin (Bld) [Mass/Vol] 12.9 g/dL Normal 12.0-15.0 [facility] Comment on above: Performed By: #### L 3700.3000, L500.4050, L300.4310, L503.6005, L300.3900, L100.0100 ####[facility] [address] [facility] [place], [address] IG% 0.700 Normal 0.0-0.9 [facility] Comment on above: Result Comment: IG% - Immature Granulocytes (promyelocytes, myelocytes andmetamyelocytes) > 1% indicates that a LEFT SHIFT is Present. Performed By: #### L 3700.3000, L500.4050, L300.4310, L503.6005, L300.3900, L100.0100 ####[facility] [address] [facility] [place], [address] Lymphocytes/100 WBC (Bld) 12.7 % Low 19-41 [facility] Comment on above: Performed By: #### L 3700.3000, L500.4050, L300.4310, L503.6005, L300.3900, L100.0100 ####[facility] [address] [place], [address] MCH (RBC) [Entitic mass] 30.5 pg Normal 27.0-32.0 [facility] Comment on above: Performed By: #### L 3700.3000, L500.4050, L300.4310, L503.6005, L300.3900, L100.0100 ####[facility] [address] [place], [address] MCHC (RBC) [Mass/Vol] 32.7 g/dL Normal 32-36 [facility] Comment on above: Performed By: #### L 3700.3000, L500.4050, L300.4310, L503.6005, L300.3900, L100.0100 ####[facility] [address] [place], [address] MCV (RBC) [Entitic vol] 93.1 fL Normal 81-99 [facility] Comment on above: Performed By: #### L 3700.3000, L500.4050, L300.4310, L503.6005, L300.3900, L100.0100 ####[facility] [address] [place], [address] Monocytes/100 WBC (Bld) 8.7 % Normal 0-10 [facility] Comment on above: Performed By: #### L 3700.3000, L500.4050, L300.4310, L503.6005, L300.3900, L100.0100 ####[facility] [address] [place], [address] Neutrophils/100 WBC (Bld) 77.6 % High 47-70 [facility] Comment on above: Performed By: #### L 3700.3000, L500.4050, L300.4310, L503.6005, L300.3900, L100.0100 ####[facility] [address] [place], [address] Nucleated RBC (Bld) [#/Vol] 0 10*3/uL Normal 0-5 [facility] Comment on above: Performed By: #### L 3700.3000, L500.4050, L300.4310, L503.6005, L300.3900, L100.0100 ####[facility] [address] [place], [address] Platelet mean volume (Bld) [Entitic vol] 10.5 fL Normal 6.2-12.0 [facility] Comment on above: Performed By: #### L 3700.3000, L500.4050, L300.4310, L503.6005, L300.3900, L100.0100 ####[facility] [address] [place], [address] Platelets (Bld) [#/Vol] 232 10*3/uL Normal 150-450 [facility] Comment on above: Performed By: #### L 3700.3000, L500.4050, L300.4310, L503.6005, L300.3900, L100.0100 ####[facility] [address] [place], [address] RBC (Bld) [#/Vol] 4.23 10*6/uL Normal 4.2-5.[address] [facility] Comment on above: Performed By: #### L 3700.3000, L500.4050, L300.4310, L503.6005, L300.3900, L100.0100 ####[facility] [address] [place], [address] RDW SD 56.0 fl High 35.1-43.9 [facility] Comment on above: Performed By: #### L 3700.3000, L500.4050, L300.4310, L503.6005, L300.3900, L100.0100 ####[facility] [address] [place], [address] WBC (Bld) [#/Vol] 9.7 10*3/uL Normal 4.4-11.0 [facility] Comment on above: Performed By: #### L 3700.3000, L500.4050, L300.4310, L503.6005, L300.3900, L100.0100 ####[facility] [address] [place], [address] CPK Total, Creatine Kinaseon 03-11-2024 CPK TOTAL 429 U/L High 26-192 [facility] Comment on above: Order Comment: 'TROP ' Serial specimen #1, #2 or #3: 1 Performed By: #### L 501.3620, L504.2610, L503.6620, L509.7000, L501.4020, L501.6710, L501.5200 ####[facility] [address] [place], [address] CRPon 03-11-2024 C-REACTIVE PROT 141.00 mg/L High 0.0-3.0 [facility] Comment on above: Order Comment: 'TROP ' Serial specimen #1, #2 or #3: 1 Result Comment: C-Re active Protein (CRP) provides useful information for thediagnosis, therapy and monitoring of inflammatory processesand associated diseases. For the evaluation of Relative Riskfor Cardiovascular Disease, a High Sensitivity CRP (HSCRP)should be ordered. Performed By: #### L 501.3620, L504.2610, L503.6620, L509.7000, L501.4020, L501.6710, L501.5200 ####[facility] [address] [place], [place], [id number] Chest 1 View (Portable)on Chest 1 View (Portable) Normal [facility] Comprehensive Metabolic Prof ilon 03-11-2024 Albumin [Mass/Vol] 3.3 g/dL Normal 3.2-5.0 [facility] Comment on above: Performed By: #### L 3700.3000, L500.4050, L300.4310, L503.6005, L300.3900, L100.0100 ####[facility] [address] [place], [place], [id number] Albumin/Globulin [Mass ratio] 0.6 {ratio} Low 0.9-2.4 [facility] Comment on above: Performed By: #### L 3700.3000, L500.4050, L300.4310, L503.6005, L300.3900, L100.0100 ####[facility] [address] [place], [address] ALK P 170 U/L High 45-117 [facility] Comment on above: Performed By: #### L 3700.3000, L500.4050, L300.4310, L503.6005, L300.3900, L100.0100 ####[facility] [address] [place], [address] ALT [Catalytic activity/Vol] 40 U/L Normal 13-56 [facility] Comment on above: Performed By: #### L 3700.3000, L500.4050, L300.4310, L503.6005, L300.3900, L100.0100 ####[facility] [address] [place], [address] AST [Catalytic activity/Vol] 41 U/L High 15-37 [facility] Comment on above: Performed By: #### L 3700.3000, L500.4050, L300.4310, L503.6005, L300.3900, L100.0100 ####[facility] [address] [place], [address] Bilirubin [Mass/Vol] 0.30 mg/dL Normal 0.20-1.00 [facility] Comment on above: Result Comment: For patients on eltrombopag therapy, use of Dimension [place] TBIL is not recommended. Performed By: #### L 3700.3000, L500.4050, L300.4310, L503.6005, L300.3900, L100.0100 ####[facility] [address] [place], [address] BUN/CRE 27.0 RATIO High 10-20 [facility] Comment on above: Performed By: #### L 3700.3000, L500.4050, L300.4310, L503.6005, L300.3900, L100.0100 ####[facility] [address] [place], [address] CA,Total 10.6 mg/dL High 8.5-10.1 [facility] Comment on above: Performed By: #### L 3700.3000, L500.4050, L300.4310, L503.6005, L300.3900, L100.0100 ####[facility] [address] [place], [address] Chloride [Moles/Vol] 100 mmol/L Normal 98-107 [facility] Comment on above: Performed By: #### L 3700.3000, L500.4050, L300.4310, L503.6005, L300.3900, L100.0100 ####[facility] [address] [place], [address] CO2 [Moles/Vol] 31.0 mmol/L Normal 21.0-32.0 [facility] Comment on above: Performed By: #### L 3700.3000, L500.4050, L300.4310, L503.6005, L300.3900, L100.0100 ####[facility] [address] [place], [address] Creatinine [Mass/Vol] 1.26 mg/dL High 0.55-1.02 [facility] Comment on above: Result Comment: The validity of the calculated GFR GFRAA in patients over70 years has not been determined. Clinical correlation isessential. Performed By: #### L 3700.3000, L500.4050, L300.4310, L503.6005, L300.3900, L100.0100 ####[facility] [address] [place], [address] ECRCL 49.97 ml/min Normal [facility] Comment on above: Performed By: #### L 3700.3000, L500.4050, L300.4310, L503.6005, L300.3900, L100.0100 ####[facility] [address] [place], [address] EST GFR - AA 53 mL/min Low >60 [facility] Comment on above: Result Comment: Afri can Ivorian GFR Calc Performed By: #### L 3700.3000, L500.4050, L300.4310, L503.6005, L300.3900, L100.0100 ####[facility] [address] [place], [address] GAP 7 Normal 5-15 [facility] Comment on above: Performed By: #### L 3700.3000, L500.4050, L300.4310, L503.6005, L300.3900, L100.0100 ####[facility] [address] [place], [place], [id number]) GFR/1.73 sq M.predicted among non-blacks MDRD (S/P/Bld) [Vol rate/Area] 44 mL/min/{1.73_m2} Low >60 [facility] Comment on above: Result Comment: Non- GFR Calc Performed By: #### L 3700.3000, L500.4050, L300.4310, L503.6005, L300.3900, L100.0100 ####[facility] [address] [place], [place], [id number]) Globulin (S) [Mass/Vol] 5.3 g/dL High 2.2-4.2 [facility] Comment on above: Performed By: #### L 3700.3000, L500.4050, L300.4310, L503.6005, L300.3900, L100.0100 ####[facility] [address] [place], [address] Glucose [Mass/Vol] 108 mg/dL High 74-106 [facility] Comment on above: Result Comment: Fast ing Glucose result from 100 to 125 mg/dLsuggests IMPAIRED HOMEOSTASIS per A.D.A. criteria. Performed By: #### L 3700.3000, L500.4050, L300.4310, L503.6005, L300.3900, L100.0100 ####[facility] [address] [place], [address] Potassium [Moles/Vol] 4.9 mmol/L Normal 3.5-5.1 [facility] Comment on above: Performed By: #### L 3700.3000, L500.4050, L300.4310, L503.6005, L300.3900, L100.0100 ####[facility] [address] [place], [address] Sodium [Moles/Vol] 138 mmol/L Normal 136-145 [facility] Comment on above: Performed By: #### L 3700.3000, L500.4050, L300.4310, L503.6005, L300.3900, L100.0100 ####[facility] [address] [place], [address] T PROT 8.6 g/dL High 6.4-8.2 [facility] Comment on above: Performed By: #### L 3700.3000, L500.4050, L300.4310, L503.6005, L300.3900, L100.0100 ####[facility] [address] [place], [address] Urea nitrogen [Mass/Vol] 34 mg/dL High 7-18 [facility] Comment on above: Performed By: #### L 3700.3000, L500.4050, L300.4310, L503.6005, L300.3900, L100.0100 ####[facility] [address] [place], [address] Emergency Department Summary on 03-11-2024 Emergency Department Summary Normal [facility] Gastric, Occult Bloodon 10-0 GASTOC Normal Reference Ran ge = Negative UNABLE TO DETERMINE PH DUE TO COLOR OF SAMPLE Gastrocult- Occult Blood NEGATIVE Normal [facility] Comment on above: Performed By: #### M 100.678, M100.6950, L400.0001, M100.2200 ####[facility] [address] [place], [address] H AND P Exam - Hospitaliston 03-11-2024 H&P Exam - Hospitalist Normal [facility] HH, Hemoglobin AND Hematocri ton 03-11-2024 Hematocrit (Bld) [Volume fraction] 36.1 % Low 37-47 [facility] Comment on above: Performed By: #### L 100.0600 ####[facility] [address] [place], [address] Hemoglobin (Bld) [Mass/Vol] 12.1 g/dL Normal 12.0-15.0 [facility] Comment on above: Performed By: #### L 100.0600 ####[facility] [address] [place], [address] Hematocrit (Bld) [Volume fraction] 37.7 % Normal [address] [place] [address] Comment on above: Performed By: #### L 100.0600 ####[facility] [address] [place], [address] Hemoglobin (Bld) [Mass/Vol] 12.1 g/dL Normal 12.0-15.0 [facility] Comment on above: Performed By: #### L 100.0600 ####[facility] [address] [place], [address] L501.4020on 03-11-2024 TROPONIN-I HS 25 pg/mL Normal 3.0-54.0 [facility] Comment on above: Order Comment: 'TROP ' Serial specimen #1, #2 or #3: 1 Result Comment: Colby cagle Note: New Test Units and Gender Specific Reference Ranges. For more information see Policy Stat Procedure [place] High Sensitivity Troponin (TNIH) and attachments. Performed By: #### L 501.3620, L504.2610, L503.6620, L509.7000, L501.4020, L501.6710, L501.5200 ####[facility] [address] [place], [address] LDHon 03-11-2024 LDH 250 U/L High 84-246 [facility] Comment on above: Order Comment: 'TROP ' Serial specimen #1, #2 or #3: 1 Performed By: #### L 501.3620, L504.2610, L503.6620, L509.7000, L501.4020, L501.6710, L501.5200 ####[facility] [address] [place], [address] Lactic Acidon 03-11-2024 Lactate [Moles/Vol] 1.8 mmol/L Normal 0.4-1.[address] [facility] Comment on above: Order Comment: Y Performed By: #### L 3700.3000, L500.4050, L300.4310, L503.6005, L300.3900, L100.0100 ####[facility] [address] [place], [address] Legionella Antigen Urineon 1 LEGU Normal [facility] Comment on above: Performed By: #### M 300.4500 ####[facility] [address] [place], [address] M100.678on 03-11-2024 M100.678 Normal [facility] Comment on above: Performed By: #### M 100.678, M100.6950, L400.0001, M100.2200 ####[facility] [address] [place], [address] Magnesiumon 03-11-2024 Magnesium [Mass/Vol] 1.9 mg/dL Normal 1.6-2.6 [facility] Comment on above: Order Comment: 'TROP ' Serial specimen #1, #2 or #3: 1 Performed By: #### L 501.3620, L504.2610, L503.6620, L509.7000, L501.4020, L501.6710, L501.5200 ####[facility] [address] [place], [address] Partial Thromboplast Timeon 03-11-2024 aPTT Coag (Bld) [Time] 52.8 s High 24.1-36.2 [facility] Comment on above: Performed By: #### L 3700.3000, L500.4050, L300.4310, L503.6005, L300.3900, L100.0100 ####[facility] [address] [place], [address] Procalcitoninon 03-11-2024 Procalcitonin 0.15 ng/mL High 0.00-0.09 [facility] Comment on above: Result Comment: A pr ocalcitonin (PCT) level above 2.0 ng/mL on the first day of ICU admission is associated with a high risk for progression to severe sepsis and/or septic shock. A PCT level below 0.5 ng/mL on the first day of ICU admission is associated with a low risk for progression to severe and/or septic shock. Note: Concentrations <0.5 ng/mL do not exclude an infection on account of localized infections (without systemic signs) which can be associated with such low concentrations, or a systemic infection in its initial stages (<6 hours). Furthermore, increased procalcitonin can occur without infection. PCT concentrations between 0.5 and 2.0 ng/mL should be interpreted taking into account the patient's history. It is recommended to retest PCT within 6-24 hours if any concentrations <2 ng/mL are obtained. Performed By: #### L 501.3620, L504.2610, L503.6620, L509.7000, L501.4020, L501.6710, L501.5200 ####[facility] [address] [place], [address] Prothrombin Time w/INRon INR Coag (PPP) [Relative time] 1.3 {INR} Normal [facility] Comment on above: Performed By: #### L 3700.3000, L500.4050, L300.4310, L503.6005, L300.3900, L100.0100 ####[facility] [address] [place], [address] PT Coag (PPP) [Time] 16.4 s High 11.7-14.9 [facility] Comment on above: Performed By: #### L 3700.3000, L500.4050, L300.4310, L503.6005, L300.3900, L100.0100 ####[facility] [address] [place], [address] Urinalysis, Completeon 03-11 EPI,SQUAMOUS 0-5 SEEN Normal 5-10 [facility] Comment on above: Order Comment: COLLE CTOR TO SPECIFY Performed By: #### M 100.678, M100.6950, L400.0001, M100.2200 ####[facility] [address] [place], [address] RBC 0-5 SEEN Normal 0-5 [facility] Comment on above: Order Comment: MANNIE CTOR TO SPECIFY Performed By: #### M 100.678, M100.6950, L400.0001, M100.2200 ####[facility] [address] [place], [address] BACTERIA 3+ /hpf Normal None Seen [facility] Comment on above: Order Comment: COLLE CTOR TO SPECIFY Performed By: #### M 100.678, M100.6950, L400.0001, M100.2200 ####[facility] [address] [place], [address] WBC 10-25 SEEN Normal 0-5 [facility] Comment on above: Order Comment: COLLE CTOR TO SPECIFY Performed By: #### M 100.678, M100.6950, L400.0001, M100.2200 ####[facility] [address] [place], [address] Mucus Ql (Urine sed) 0 SEEN Normal [facility] Comment on above: Order Comment: MANNIE CTOR TO SPECIFY Performed By: #### M 100.678, M100.6950, L400.0001, M100.2200 ####[facility] [address] [place], [address] L3700.3000on 02-28-2024 PHENobarbital [Mass/Vol] 56 ug/mL Abnormal 15-40 [facility] Comment on above: Order Comment: 104.2 Result Comment: Dete ction Limit = 3Patient drug level exceeds published reference range.Evaluate clinically for signs of potential toxicity.Performed at: [facility] [address] [id number] Director: Jose Vicente PhD, Phone: [phone] Performed By: #### L 500.4050, L3700.3000, L100.0500, L501.2230 ####[facility] [address] [place], [address] CBC-Complete Blood Cnt No Di ffon 02-27-2024 Erythrocyte distribution width (RBC) [Ratio] 16.0 % High 11.6-14.6 [facility] Comment on above: Order Comment: 104.2 Performed By: #### L 500.4050, L3700.3000, L100.0500, L501.9520 ####[facility] [address] [place], [address] Hematocrit (Bld) [Volume fraction] 39.2 % Normal 37-47 [facility] Comment on above: Order Comment: 104.2 Performed By: #### L 500.4050, L3700.3000, L100.0500, L501.9520 ####[facility] [address] [place], [address] Hemoglobin (Bld) [Mass/Vol] 12.9 g/dL Normal 12.0-15.0 [facility] Comment on above: Order Comment: 104.2 Performed By: #### L 500.4050, L3700.3000, L100.0500, L501.9520 ####[facility] [address] [place], [address] MCH (RBC) [Entitic mass] 31.2 pg Normal 27.0-32.0 [facility] Comment on above: Order Comment: 104.2 Performed By: #### L 500.4050, L3700.3000, L100.0500, L501.9520 ####[facility] [address] [place], [address] MCHC (RBC) [Mass/Vol] 32.9 g/dL Normal 32-36 [facility] Comment on above: Order Comment: 104.2 Performed By: #### L 500.4050, L3700.3000, L100.0500, [id number] ####[facility] [address] [place], [address] MCV (RBC) [Entitic vol] 94.9 fL Normal 81-99 [facility] Comment on above: Order Comment: 104.2 Performed By: #### L 500.4050, L3700.3000, L100.0500, [id number] ####[facility] [address] [place], [address] Platelet mean volume (Bld) [Entitic vol] 10.9 fL Normal 6.2-12.0 [facility] Comment on above: Order Comment: 104.2 Performed By: #### L 500.4050, L3700.3000, L100.0500, [id number] ####[facility] [address] [place], [address] Platelets (Bld) [#/Vol] 262 10*3/uL Normal 150-450 [facility] Comment on above: Order Comment: 104.2 Performed By: #### L 500.4050, L3700.3000, L100.0500, [id number] ####[facility] [address] [place], [address] RBC (Bld) [#/Vol] 4.13 10*6/uL Low 4.2-5.[address] [facility] Comment on above: Order Comment: 104.2 Performed By: #### L 500.4050, L3700.3000, L100.0500, [id number] ####[facility] [address] [place], [address] RDW SD 55.9 fl High 35.1-43.9 [facility] Comment on above: Order Comment: 104.2 Performed By: #### L 500.4050, L3700.3000, L100.0500, [id number] ####[facility] [address] [place], [address] WBC (Bld) [#/Vol] 7.9 10*3/uL Normal 4.4-11.0 [facility] Comment on above: Order Comment: 104.2 Performed By: #### L 500.4050, L3700.3000, L100.0500, [id number] ####[facility] [address] [place], [address] Comprehensive Metabolic Prof ilon 02-27-2024 Albumin [Mass/Vol] 3.6 g/dL Normal 3.2-5.0 [facility] Comment on above: Order Comment: 104.2 Performed By: #### L 500.4050, L3700.3000, L100.0500, [id number] ####[facility] [address] [place], [address] Albumin/Globulin [Mass ratio] 0.8 {ratio} Low 0.9-2.4 [facility] Comment on above: Order Comment: 104.2 Performed By: #### L 500.4050, L3700.3000, L100.0500, [id number] ####[facility] [address] [place], [address] ALK P 154 U/L High 45-117 [facility] Comment on above: Order Comment: 104.2 Performed By: #### L 500.4050, L3700.3000, L100.0500, [id number] ####[facility] [address] [place], [address] ALT [Catalytic activity/Vol] 43 U/L Normal 13-56 [facility] Comment on above: Order Comment: 104.2 Performed By: #### L 500.4050, L3700.3000, L100.0500, [id number] ####[facility] [address] [place], [address] AST [Catalytic activity/Vol] 35 U/L Normal 15-37 [facility] Comment on above: Order Comment: 104.2 Performed By: #### L 500.4050, L3700.3000, L100.0500, [id number] ####[facility] [address] [place], [address] Bilirubin [Mass/Vol] 0.20 mg/dL Normal 0.20-1.00 [facility] Comment on above: Order Comment: 104.2 Result Comment: For patients on eltrombopag therapy, use of Dimension [place] TBIL is not recommended. Performed By: #### L 500.4050, L3700.3000, L100.0500, [id number] ####[facility] [address] [place], [address] BUN/CRE 26.1 RATIO High 10-20 [facility] Comment on above: Order Comment: 104.2 Performed By: #### L 500.4050, L3700.3000, L100.0500, [id number] ####[facility] [address] [place], [address] CA,Total 10.4 mg/dL High 8.5-10.1 [facility] Comment on above: Order Comment: 104.2 Performed By: #### L 500.4050, L3700.3000, L100.0500, [id number] ####[facility] [address] [place], [address] Chloride [Moles/Vol] 101 mmol/L Normal 98-107 [facility] Comment on above: Order Comment: 104.2 Performed By: #### L 500.4050, L3700.3000, L100.0500, [id number] ####[facility] [address] [place], [address] CO2 [Moles/Vol] 25.0 mmol/L Normal 21.0-32.0 [facility] Comment on above: Order Comment: 104.2 Performed By: #### L 500.4050, L3700.3000, L100.0500, [id number] ####[facility] [address] [place], [address] Creatinine [Mass/Vol] 0.96 mg/dL Normal 0.55-1.02 [facility] Comment on above: Order Comment: 104.2 Result Comment: The validity of the calculated GFR GFRAA in patients over70 years has not been determined. Clinical correlation isessential. Performed By: #### L 500.4050, L3700.3000, L100.0500, [id number] ####[facility] [address] [place], [address] EST GFR - AA 73 mL/min Normal >60 [facility] Comment on above: Order Comment: 104.2 Result Comment: Afri can Ivorian GFR Calc Performed By: #### L 500.4050, L3700.3000, L100.0500, [id number] ####[facility] [address] [place], [address] GAP 10 Normal 5-15 [facility] Comment on above: Order Comment: 104.2 Performed By: #### L 500.4050, L3700.3000, L100.0500, [id number] ####[facility] [address] [place], [address] GFR/1.73 sq M.predicted among non-blacks MDRD (S/P/Bld) [Vol rate/Area] 61 mL/min/{1.73_m2} Normal >60 [facility] Comment on above: Order Comment: 104.2 Result Comment: Non- GFR Calc Performed By: #### L 500.4050, L3700.3000, L100.0500, [id number] ####[facility] [address] [place], [address] Globulin (S) [Mass/Vol] 4.7 g/dL High 2.2-4.2 [facility] Comment on above: Order Comment: 104.2 Performed By: #### L 500.4050, L3700.3000, L100.0500, [id number] ####[facility] [address] [place], [address] Glucose [Mass/Vol] 110 mg/dL High 74-106 [facility] Comment on above: Order Comment: 104.2 Result Comment: Fast ing Glucose result from 100 to 125 mg/dLsuggests IMPAIRED HOMEOSTASIS per A.D.A. criteria. Performed By: #### L 500.4050, L3700.3000, L100.0500, [id number] ####[facility] [address] [place], [address] Potassium [Moles/Vol] 3.9 mmol/L Normal 3.5-5.1 [facility] Comment on above: Order Comment: 104.2 Performed By: #### L 500.4050, L3700.3000, L100.0500, [id number] ####[facility] [address] [place], [address] Sodium [Moles/Vol] 136 mmol/L Normal 136-145 [facility] Comment on above: Order Comment: 104.2 Performed By: #### L 500.4050, L3700.3000, L100.0500, [id number] ####[facility] [address] [place], [address] T PROT 8.3 g/dL High 6.4-8.2 [facility] Comment on above: Order Comment: 104.2 Performed By: #### L 500.4050, L3700.3000, L100.0500, [id number] ####[facility] [address] [place], [address] Urea nitrogen [Mass/Vol] 25 mg/dL High 7-18 [facility] Comment on above: Order Comment: 104.2 Performed By: #### L 500.4050, L3700.3000, L100.0500, [id number] ####[facility] [address] [place], [address] Thyroid Stim Hormone (TSH)on 02-27-2024 TSH 0.794 uIU/mL Normal 0.358-3.740 [facility] Comment on above: Order Comment: 104.2 Performed By: #### L 500.4050, L3700.3000, L100.0500, [id number] ####[facility] [address] [place], [address] Basic Metabolic Profon 02-10 Anion gap [Moles/Vol] 13 mmol/L Normal 9-16 [facility] Comment on above: Performed By: #### C BC, BMP #### [facility] [address] [place] [address] Package Dye Stand Loader: Lc Saldaña MD BUN/CRE Ratio 28 High 9-20 [facility] Comment on above: Performed By: #### C BC, BMP #### [facility] [address] [place], [place] [id number] Package Dye Stand Loader: Lc Saldaña MD Calcium [Mass/Vol] 9.9 mg/dL Normal 8.6-10.4 [facility] Comment on above: Performed By: #### C BC, BMP #### [facility] [address] [place], [place] [id number] Package Dye Stand Loader: Lc Saldaña MD Chloride [Moles/Vol] 101 mmol/L Normal 98-107 [facility] Comment on above: Performed By: #### C BC, BMP #### [facility] [address] [place], [place] [id number] Package Dye Stand Loader: Lc Saldaña MD CO2 [Moles/Vol] 26 mmol/L Normal 20-31 [facility] Comment on above: Performed By: #### C BC, BMP #### [facility] [address] [place] [address] Package Dye Stand Loader: Lc Saldaña MD Creatinine [Mass/Vol] 0.6 mg/dL Normal 0.50-0.90 [facility] Comment on above: Performed By: #### C BC, BMP #### [facility] [address] [place] [address] Package Dye Stand Loader: Lc Saldaña MD GFR/1.73 sq M.predicted among non-blacks MDRD (S/P/Bld) [Vol rate/Area] mL/min/{1.73_m2} Normal >60 [facility] Comment on above: Result Comment: These results are not intended for use in patients <18 years of age. eGFR results are calculated without a race factor using the 2020 CKD-EPI equation. Careful clinical correlation is recommended, particularly when comparing to results calculated using previous equations. The CKD-EPI equation is less accurate in patients with extremes of muscle mass, extra-renal metabolism of creatine, excessive creatine ingestion, or following therapy that affects renal tubular secretion. Performed By: #### C ANA, BMP #### [address] [place] [address] Package Dye Stand Loader: Lc Saldaña MD Glucose [Mass/Vol] 103 mg/dL High 74-99 [facility] Comment on above: Performed By: #### C ANA, BMP #### [address] [place] [address] Package Dye Stand Loader: Lc Saldaña MD Potassium [Moles/Vol] 3.7 mmol/L Normal 3.7-5.3 [facility] Comment on above: Performed By: #### C ANA, BMP #### [address] [place] [address] Package Dye Stand Loader: Lc Saldaña MD Sodium [Moles/Vol] 140 mmol/L Normal 136-145 [facility] Comment on above: Performed By: #### C ANA, BMP #### [facility] [address] [place] [address] Package Dye Stand Loader: Lc Saldaña MD Urea nitrogen [Mass/Vol] 17 mg/dL Normal 8-23 [facility] Comment on above: Performed By: #### C ANA, BMP #### [facility] [place], [place] [address] Package Dye Stand Loader: Lc Saldaña MD CBCon 02-11-2024 Erythrocyte distribution width (RBC) [Ratio] 15.8 % High 11.8-14.4 [facility] Comment on above: Performed By: #### C BC, BMP #### [address] [place] [address] Package Dye Stand Loader: Lc Saldaña MD Hematocrit (Bld) [Volume fraction] 39.2 % Normal 36.3-47.1 [facility] Comment on above: Performed By: #### C BC, BMP #### [address] [place], [place] [id number] Package Dye Stand Loader: Lc Saldaña MD Hemoglobin (Bld) [Mass/Vol] 13.2 g/dL Normal 11.9-15.1 [facility] Comment on above: Performed By: #### C BC, BMP #### [address] [place], [place] [id number] Package Dye Stand Loader: Lc Saldaña MD MCH (RBC) [Entitic mass] 31.4 pg Normal 25.2-33.5 [facility] Comment on above: Performed By: #### C BC, BMP #### [address] [place] [address] Package Dye Stand Loader: Lc Saldaña MD MCHC (RBC) [Mass/Vol] 33.7 g/dL Normal 28.4-34.8 [facility] Comment on above: Performed By: #### C BC, BMP #### [address] [place], [place] [id number] Package Dye Stand Loader: Lc Saldaña MD MCV (RBC) [Entitic vol] 93.3 fL Normal 82.6-102.9 [facility] Comment on above: Performed By: #### C BC, BMP #### [address] [place] [address] Package Dye Stand Loader: Lc Saldaña MD NRBC Automated 0.0 per 100 WBC Normal 0.0 [facility] Comment on above: Performed By: #### C BC, BMP #### [facility] [address] [place] [address] Package Dye Stand Loader: Lc Saldaña MD Platelet mean volume (Bld) [Entitic vol] 9.6 fL Normal 8.1-13.5 [facility] Comment on above: Performed By: #### C ANA, BMP #### [facility] [address] [place] [address] Package Dye Stand Loader: Lc Saldaña MD Platelets (Bld) [#/Vol] 215 10*3/uL Normal 138-453 [facility] Comment on above: Performed By: #### C ANA, BMP #### [facility] [address] [place] [address] Package Dye Stand Loader: Lc Saldaña MD RBC (Bld) [#/Vol] 4.20 10*6/uL Normal 3.95-5.11 [facility] Comment on above: Performed By: #### C ANA, BMP #### [facility] [address] [place] [address] Package Dye Stand Loader: Lc Saldaña MD WBC (Bld) [#/Vol] 8.0 10*3/uL Normal 3.5-11.3 [facility] Comment on above: Performed By: #### C ANA, BMP #### [facility] [address] [place] [address] Package Dye Stand Loader: Lc Saldaña MD Basophil percentageOrdered B y: Panda Littlejohn on 09-03-2023 Basophil percentage 40.4 ug/mL 10.0-40.[address] [facility] Comment on above: Critical Result(s) C alled at: 10:59:16 09/03/2023 by: Jamey Hayward. [place] Camacho RN ([facility]). Results read back by same.Phenobarbital concentrations greater than 40.0 ug/mL arepotentially toxic. Hemoglobin (Bld) [Mass/Vol] 13.0 g/dL 12.0-15.0 [facility] WBC (Bld) [#/Vol] 6.5 10*3/uL 4.4-11.0 [facility] Determination of erythrocyte mean corpuscular volume (MCV)Ordered By: Panda Littlejohn on 09-03-2023 MCV (RBC) [Entitic vol] 94.0 fL 81-99 [facility] Erythrocyte distribution wid th ratioOrdered By: Panda Littlejohn on 09-03-2023 Erythrocyte distribution width (RBC) [Ratio] 14.8 % 11.6-14.6 [facility] Erythrocyte distribution wid th standard deviationOrdered By: Panda Littlejohn on 09-03-2023 Erythrocyte distribution width (RBC) [Entitic vol] 51.3 fL 35.1-43.9 [facility] Hematocrit Auto (Bld) [Volum e fraction]Ordered By: Panda Littlejohn on 09-03-2023 Hematocrit (Bld) [Volume fraction] 39.5 % 37-47 [facility] Laboratory - Hematology and Cell countsOrdered By: Panda Littlejohn on 09-03-2023 MCH (RBC) [Entitic mass] 31.0 pg 27.0-32.0 [facility] MCHC (RBC) [Mass/Vol] 32.9 g/dL 32-36 [facility] Platelet mean volume (Bld) [Entitic vol] 10.2 fL 6.2-12.0 [facility] Platelets (Bld) [#/Vol] 254 10*3/uL 150-450 [facility] RBC Auto (Bld) [#/Vol]Ordere d By: Panda Littlejohn on 09-03-2023 RBC (Bld) [#/Vol] 4.20 10*6/uL 4.2-5.[address] [facility] Basophil percentageOrdered B y: Richa Daniels on 05-27-2023 Chloride [Moles/Vol] 103 mmol/L 98-107 [facility] Cholesterol [Mass/Vol] 200 mg/dL <200 [facility] Comment on above: <200 mg/dL Desirable 200-240 mg/dL Borderline >240 mg/dL High Risk Glucose [Mass/Vol] 95 mg/dL 74-106 [facility] Potassium [Moles/Vol] 3.9 mmol/L 3.5-5.1 [facility] Sodium [Moles/Vol] 138 mmol/L 136-145 [facility] Triglyceride [Mass/Vol] 66 mg/dL <199 [facility] Comment on above: The drugs N-Acetylcy steine and Metamizole may falsely depress this assay.Serum Triglycerides Reference Interval Normal <150 mg/dL Borderline high 150 - 199 mg/dL High 200 - 499 mg/dL Very High > or = 500 mg/dL Laboratory - Chemistry and C hemistry - challengeOrdered By: Richa Daniels on 05-27-2023 ALT [Catalytic activity/Vol] 28 U/L 13-56 [facility] CO2 [Moles/Vol] 30.0 mmol/L 21.0-32.0 [facility] T4 [Mass/Vol] 8.8 ug/dL 4.8-13.9 [facility] Urea nitrogen/Creatinine [Mass ratio] 35.4 mg/mg 10-20 [facility] No Panel InformationOrdered By: Richa Daniels on 05-27-2023 Estimated GFR (MDRD) Amer 135 mL/min >60 [facility] Comment on above: GFR Calc Estimated GFR (MDRD) Non-Af Amer 111 mL/min >60 [facility] Comment on above: Non- GFR Calc Thyroid Stimulating Hormone (TSH) 1.99 uIU/mL 0.358-3.74 [facility] Urine Microalbumin/Creatinine Ratio 15.0 mg/g CRE <30 [facility] Serum or plasma calcium jerod urement (mass/volume)Ordered By: Richa Daniels on 05-27-2023 Calcium [Mass/Vol] 9.0 mg/dL 8.5-10.1 [facility] Serum or plasma cholesterol in HDL measurement (mass/volume)Ordered By: Richa Daniels on 05-27-2023 Cholesterol in HDL [Mass/Vol] 91 mg/dL >40 [facility] Comment on above: The drugs N-Acetylcy steine and Metamizole may falsely depress this assay. Reference Range HDL <40 mg/dL Low HDL Cholesterol HDL >or= 60 mg/dL High HDL Cholesterol Serum or plasma cholesterol in VLDL measurement (mass/volume)Ordered By: Richa Daniels on 05-27-2023 Cholesterol in VLDL [Mass/Vol] 13 mg/dL 5-40 [facility] Serum or plasma creatinine m easurement (mass/volume)Ordered By: Richa Daniels on 05-27-2023 Creatinine [Mass/Vol] 0.56 mg/dL 0.55-1.02 [facility] Comment on above: The validity of the calculated GFR & GFRAA in patients over 70 years has not been determined. Clinical correlation is essential. Serum or plasma low density lipoprotein (LDL) cholesterol measurement (mass/volume)Ordered By: Richa Daniels on 05-27-2023 Cholesterol in LDL [Mass/Vol] 96 mg/dL 0-130 [facility] Serum or plasma urea nitroge n measurement (mass/volume)Ordered By: Richa Daniels on 05-27-2023 Urea nitrogen [Mass/Vol] 20 mg/dL 7-18 [facility] Thin prep Papanicolaou smear with manual screeningOrdered By: Richa Daniels on 05-27-2023 Thin prep Papanicolaou smear with manual screening 25 U/L 15-37 [facility] Thin prep Papanicolaou smear with manual screening 5 5-15 [facility] Thin prep Papanicolaou smear with manual screening 5.7 mg/L NO RANGE EST. [facility] Urine creatinine measurement (mass/volume)Ordered By: Richa Daniels on 05-27-2023 Creatinine (U) [Mass/Vol] 38.00 mg/dL NO RANGE EST. [facility] Absolute lymphocyte counton 05-25-2022 Lymphocytes Auto (Unsp spec) [#/Vol] 2.17 10*3/uL 0.83-4.51 [facility] Work Phone: Basophil percentageon 2021 Basophils/100 WBC (Bld) 0.5 % 0-1 [facility] Work Phone: Bilirubin [Mass/Vol] 0.20 mg/dL 0.20-1.00 [facility] Work Phone: Comment on above: For patients on eltr ombopag therapy, use of Dimension [place] TBIL is not recommended. Chloride [Moles/Vol] 97 mmol/L 98-107 [facility] Work [facility]: Cholesterol [Mass/Vol] 210 mg/dL <200 [facility] Work Phone: Comment on above: <200 mg/dL Desirable 200-240 mg/dL Borderline >240 mg/dL High Risk Eosinophils/100 WBC (Bld) 2.8 % 0-5 [facility] Work Phone: Glucose [Mass/Vol] 94 mg/dL 74-106 [facility] Work Phone: [phone] Neutrophils (Bld) [#/Vol] 5.8 10*3/uL 2.0-7.7 [facility] Work Phone: Neutrophils/100 WBC (Bld) 63.9 % 47-70 [facility] Work Phone: Potassium [Moles/Vol] 4.3 mmol/L 3.5-5.1 [facility] Work Phone: Protein [Mass/Vol] 7.5 g/dL 6.4-8.2 [facility] Work Phone: Sodium [Moles/Vol] 133 mmol/L 136-145 [facility] Work Phone: Triglyceride [Mass/Vol] 62 mg/dL <199 [facility] Work Phone: Comment on above: The drugs N-Acetylcy steine and Metamizole may falsely depress this assay.Serum Triglycerides Reference Interval Normal <150 mg/dL Borderline high 150 - 199 mg/dL High 200 - 499 mg/dL Very High > or = 500 mg/dL WBC (Bld) [#/Vol] 9.2 10*3/uL 4.4-11.0 [facility] Work Phone: Blood erythrocytes count (nu mber/volume)on 05-25-2022 RBC (Bld) [#/Vol] 4.06 10*6/uL 4.2-5.[address] [facility] Work Phone: Blood hemoglobin measurement (mass/volume)on 05-25-2022 Hemoglobin (Bld) [Mass/Vol] 12.4 g/dL 12.0-15.0 [facility] Work Phone: Blood lymphocytes/100 leukoc yteson 05-25-2022 Lymphocytes/100 WBC (Bld) 23.7 % 19-41 [facility] Work Phone: Blood monocytes/100 leukocyt eson 05-25-2022 Monocytes/100 WBC (Bld) 8.7 % 0-10 [facility] Work Phone: Blood platelet mean volumeon 05-25-2022 Platelet mean volume (Bld) [Entitic vol] 9.7 fL 6.2-12.0 [facility] Work Phone: Determination of erythrocyte mean corpuscular volume (MCV)on 05-25-2022 MCV (RBC) [Entitic vol] 96.8 fL 81-99 [facility] Work Phone: Hematocrit Auto (Bld) [Volum e fraction]on 05-25-2022 Hematocrit (Bld) [Volume fraction] 39.3 % 37-47 [facility] Work Phone: Laboratory - Chemistry and C hemistry - challengeon 05-25-2022 ALP [Catalytic activity/Vol] 134 U/L 45-117 [facility] Work Phone: ALT [Catalytic activity/Vol] 27 U/L 13-56 [facility] Work Phone: CO2 [Moles/Vol] 31.0 mmol/L 21.0-32.0 [facility] Work Phone: Free T4 [Mass/Vol] 1.19 ng/dL 0.76-1.46 [facility] Work Phone: Globulin (S) [Mass/Vol] 4.1 g/dL 2.2-4.2 [facility] Work Phone: Urea nitrogen/Creatinine [Mass ratio] 33.4 mg/mg 10-20 [facility] Work Phone: Laboratory - Hematology and Cell countson 05-25-2022 Erythrocyte distribution width (RBC) [Entitic vol] 54.1 fL 35.1-43.9 [facility] Work Phone: Erythrocyte distribution width (RBC) [Ratio] 15.1 % 11.6-14.6 [facility] Work Phone: Immature granulocytes/100 WBC (Bld) 0.400 % 0.0-0.9 [facility] Work Phone: Comment on above: IG% - Immature Granu locytes (promyelocytes, myelocytes and metamyelocytes) > 1% indicates that a LEFT SHIFT is Present. MCH (RBC) [Entitic mass] 30.5 pg 27.0-32.0 [facility] Work Phone: Nucleated RBC/100 WBC (Bld) [Ratio] 0 % 0-5 [facility] Work Phone: MCHC Auto (RBC) [Mass/Vol]on 05-25-2022 MCHC (RBC) [Mass/Vol] 31.6 g/dL 32-36 [facility] Work Phone: No Panel Informationon 05-25 Estimated GFR (MDRD) Amer 143 mL/min >60 [facility] Work Phone: Comment on above: GFR Calc Estimated GFR (MDRD) Non-Af Amer 118 mL/min >60 [facility] Work Phone: Comment on above: Non- GFR Calc Thyroid Stimulating Hormone (TSH) 1.53 uIU/mL 0.358-3.74 [facility] Work Phone: Platelets bldon 05-25-2022 Platelets (Bld) [#/Vol] 333 10*3/uL 150-450 [facility] Work Phone: Serum or plasma albumin jerod urement (mass/volume)on 05-25-2022 Albumin [Mass/Vol] 3.4 g/dL 3.2-5.0 [facility] Work Phone: Serum or plasma albumin/glob ulin mass ratioon 05-25-2022 Albumin/Globulin [Mass ratio] 0.8 {ratio} 0.9-2.4 [facility] Work Phone: Serum or plasma calcium jerod urement (mass/volume)on 05-25-2022 Calcium [Mass/Vol] 9.1 mg/dL 8.5-10.1 [facility] Work Phone: Serum or plasma cholesterol in HDL measurement (mass/volume)on 05-25-2022 Cholesterol in HDL [Mass/Vol] 97 mg/dL >40 [facility] Work Phone: Comment on above: The drugs N-Acetylcy steine and Metamizole may falsely depress this assay. Reference Range HDL <40 mg/dL Low HDL Cholesterol HDL >or= 60 mg/dL High HDL Cholesterol Serum or plasma cholesterol in VLDL measurement (mass/volume)on 05-25-2022 Cholesterol in VLDL [Mass/Vol] 12 mg/dL 5-40 [facility] Work Phone: Serum or plasma creatinine m easurement (mass/volume)on 05-25-2022 Creatinine [Mass/Vol] 0.54 mg/dL 0.55-1.02 [facility] Work Phone: Comment on above: The validity of the calculated GFR & GFRAA in patients over 70 years has not been determined. Clinical correlation is essential. Serum or plasma low density lipoprotein (LDL) cholesterol measurement (mass/volume)on 05-25-2022 Cholesterol in LDL [Mass/Vol] 101 mg/dL 0-130 [facility] Work Phone: Serum or plasma urea nitroge n measurement (mass/volume)on 05-25-2022 Urea nitrogen [Mass/Vol] 18 mg/dL 7-18 [facility] Work Phone: Thin prep Papanicolaou smear with manual screeningon 05-25-2022 Thin prep Papanicolaou smear with manual screening 18 U/L 15-37 [facility] Work Phone: Thin prep Papanicolaou smear with manual screening 5 5-15 [facility] Work Phone: CNPNon 02-01-2021 CNPN Telephone ([employer]) ADRIENNE MORRISON ([id number]) 1950 F NFR Date Time Provider Department 02/01/21 DIA BERRY During your visit today, we recorded the following information about you: Madison Arteaga Admin Sec 02/01/2021 3:17 PM Signed Pt stated she was told to let provider know if she had any rectal bleeding. She stated she has started seeing some bleeding. Didn't want to schedule at the time of call but wanted to let Dia know and ask for a return call. Travis Smith ROD POINTER 02/01/2021 3:31 PM Signed Spoke with pt. She notes intermittent BRBPR, has had a scope in the past 2 weeks, has known internal and external hemorroids and takes plavix. As of now her light bleeding is not of concern Allergies As of Date: 02/01/2021 Noted Allergy Reaction MORPHINE 03/13/2006 5 - Intolerance Comments: STOPS BREATHING Banana Peel [Other] 03/30/2005 5 - Intolerance CODEINE 03/30/2005 5 - Intolerance DILANTIN (PHENYTOIN) 03/30/2005 5 - Intolerance LATEX 03/30/2005 5 - Intolerance pain killers [Other] 03/30/2005 5 - Intolerance Passion Fruit [Other] 03/30/2005 5 - Intolerance SHELLFISH 03/30/2005 5 - Intolerance sleeping pills [Other] 03/30/2005 5 - Intolerance STEROIDS (BETAMETHASONE DIPROPION*02/06/2010 TYLENOL COLD ([id number]*1 5 - Intolerance VALIUM (DIAZEPAM) 03/30/2005 5 - Intolerance VICODIN (HYDROCODONE-ACETAMINO PHE*03/30/2005 5 - Intolerance Date Reviewed: 01/02/2021 Reviewed by: Dia Berry PA-C - Fully Assessed Reason for Visit: Patient Update [1234] Prescriptions as of 02/01/2021 - escitalopram oxalate (LEXAPRO) 20 mg tablet Take 20 mg by mouth once daily. - NIFEdipine XL (ADALAT CC) 90 mg 24 hr tablet Take 90 mg by mouth once daily. - fluticasone (FLOVENT HFA) 220 mcg/actuation inhaler Inhale 2 Puffs as instructed twice daily. - Cholecalciferol, Vitamin D3, 2,000 unit cap Take 1 capsule by mouth once daily. - cetirizine (ZYRTEC) 10 mg tablet Take 10 mg by mouth once daily. - metoprolol succinate XL, long acting, (TOPROL XL) 100 mg Tb24 Take 1 tablet by mouth twice daily. - clopidogrel (PLAVIX) 75 mg tablet Take 1 tablet by mouth once daily. - clonazePAM (KLONOPIN) 1 mg tablet Take 1 tablet by mouth four times daily. - LORazepam (ATIVAN) 0.5 mg Tab Take 1 tablet by mouth three times daily as needed. - lovastatin (MEVACOR) 20 mg ORAL tablet Take one(1) tablet daily. - paliperidone (INVEGA) 6 mg ORAL 24 hr tablet one tab at HS - omeprazole magnesium(PRILOSEC OTC 20 MG TAB) Take one(1) tablet twice daily. - OXYGEN-AIR DELIVERY SYSTEMS DEVICE as directed - PHENOBARBITAL 60 MG TAB three in the am AND two at night - LEVOTHYROXINE SODIUM 300 MCG TAB Take one(1) tablet daily. - THERAPEUTIC MULTIVITAMIN TAB Take one(1) tablet daily. - HYDROCHLOROTHIAZIDE 25 MG TAB Take one(1) tablet daily. - SINGULAIR 10 MG TAB Take one(1) tablet daily. Problem List As Of Date 02/01/2021 Noted Resolved CHRONIC AIRWAY OBSTRUCTION NEC [J44.9] 06/22/2005 EXTRINSIC ASTHMA UNSPECIFIED [J45.909] 03/13/2006 Diverticulosis [K57.90] 02/06/2010 Family History of Malignant Neoplasm of Gastroi*02/06/2010 Benign neoplasm of colon [D12.6] 05/17/2010 Diverticulosis of colon (without mention of hem*05/17/2010 Esophagitis, unspecified [K20.90] 01/30/2012 Encounter Status:Closed by TRAVIS SMITH LPN on 02/01/21 Normal [facility] CNPGeorgiana 01-02-2021 CNPN Telephone (GENSWS) ADRIENNE MORRISON ([id number]) 1950 F NFR Date Time Provider Department 01/02/21 DIA BERRY During your visit today, we recorded the following information about you: Dia Berry PA-C 01/02/2021 7:59 PM Signed Patient requesting op and path reports from [facility] be sent to referring physician Dr. Daniels please Jalyn Stewart Ma 01/05/2021 7:55 AM Signed Faxed as requested. Jalyn Stewart Ma Allergies As of Date: 01/02/2021 Noted Allergy Reaction MORPHINE 03/13/2006 5 - Intolerance Comments: STOPS BREATHING Banana Peel [Other] 03/30/2005 5 - Intolerance CODEINE 03/30/2005 5 - Intolerance DILANTIN (PHENYTOIN) 03/30/2005 5 - Intolerance LATEX 03/30/2005 5 - Intolerance pain killers [Other] 03/30/2005 5 - Intolerance Passion Fruit [Other] 03/30/2005 5 - Intolerance SHELLFISH 03/30/2005 5 - Intolerance sleeping pills [Other] 03/30/2005 5 - Intolerance STEROIDS (BETAMETHASONE DIPROPION*02/06/2010 TYLENOL COLD ([id number]*1 5 - Intolerance VALIUM (DIAZEPAM) 03/30/2005 5 - Intolerance VICODIN (HYDROCODONE-ACETAMINO PHE*03/30/2005 5 - Intolerance Date Reviewed: 01/02/2021 Reviewed by: Dia Berry PA-C - Fully Assessed Reason for Visit: Release Of Medical Records [2017] Cmt: endoscopy reports and path Prescriptions as of 01/05/2021 - escitalopram oxalate (LEXAPRO) 20 mg tablet Take 20 mg by mouth once daily. - NIFEdipine XL (ADALAT CC) 90 mg 24 hr tablet Take 90 mg by mouth once daily. - fluticasone (FLOVENT HFA) 220 mcg/actuation inhaler Inhale 2 Puffs as instructed twice daily. - Cholecalciferol, Vitamin D3, 2,000 unit cap Take 1 capsule by mouth once daily. - cetirizine (ZYRTEC) 10 mg tablet Take 10 mg by mouth once daily. - metoprolol succinate XL, long acting, (TOPROL XL) 100 mg Tb24 Take 1 tablet by mouth twice daily. - clopidogrel (PLAVIX) 75 mg tablet Take 1 tablet by mouth once daily. - clonazePAM (KLONOPIN) 1 mg tablet Take 1 tablet by mouth four times daily. - LORazepam (ATIVAN) 0.5 mg Tab Take 1 tablet by mouth three times daily as needed. - lovastatin (MEVACOR) 20 mg ORAL tablet Take one(1) tablet daily. - paliperidone (INVEGA) 6 mg ORAL 24 hr tablet one tab at HS - omeprazole magnesium(PRILOSEC OTC 20 MG TAB) Take one(1) tablet twice daily. - OXYGEN-AIR DELIVERY SYSTEMS DEVICE as directed - PHENOBARBITAL 60 MG TAB three in the am AND two at night - LEVOTHYROXINE SODIUM 300 MCG TAB Take one(1) tablet daily. - THERAPEUTIC MULTIVITAMIN TAB Take one(1) tablet daily. - HYDROCHLOROTHIAZIDE 25 MG TAB Take one(1) tablet daily. - SINGULAIR 10 MG TAB Take one(1) tablet daily. Problem List As Of Date 01/02/2021 Noted Resolved CHRONIC AIRWAY OBSTRUCTION NEC [J44.9] 06/22/2005 EXTRINSIC ASTHMA UNSPECIFIED [J45.909] 03/13/2006 Diverticulosis [K57.90] 02/06/2010 Family History of Malignant Neoplasm of Gastroi*02/06/2010 Benign neoplasm of colon [D12.6] 05/17/2010 Diverticulosis of colon (without mention of hem*05/17/2010 Esophagitis, unspecified [K20.90] 01/30/2012 Encounter Status:Closed by JALYN STEWART MA on 01/05/21 [facility] 11-29-2020 [facility] Telephone (SchedulicityLUCIANA) ADRIENNE MORRISON ([id number]) 1950 F NFR Date Time Provider Department 11/29/20 YARED TENORIO During your visit today, we recorded the following information about you: Amelie Del Rio 12/02/2020 9:30 AM Addendum 12-19-2020 Colon EGD [facility] SURGICAL PHONE NOTE Date of Procedure/Surgery: 12-19-2020 Procedure/Surgery Type: EGD COLONOSCOPY ? SEDATION:MAC Location of Planned Procedure/Surgery: ? [facility] Surgery/Procedure Ordered: Yes COVID Testing Required: (FOR MAC CASES AND ASC PROCEDURES OTHER THAN COLON AND EGD): No Pre-Op Clearance Needed: No Prep Ordered:Yes: MIRALAX/DULCOLAX Prep Instructions given:Yes: Given in the office. Referral Completed:Entered for [facility]. Patient Diabetic:No. Medication Considerations: Patient on blood Thinners: YES Any other meds that need to be held: No Pacemaker or Defibrillator:No Patient/Family Informed of above information and given directions regarding location/arrival: Yes: Patient Transportation Considerations: No Other Important Information: No Any physical limitations: No Any cognitive limitations: No Bale Opener/Tobacco Prevention Health Educator required: No Communication Limitations: No Allergies As of Date: 11/29/2020 Noted Allergy Reaction MORPHINE 03/13/2006 5 - Intolerance Comments: STOPS BREATHING Banana Peel [Other] 03/30/2005 5 - Intolerance CODEINE 03/30/2005 5 - Intolerance DILANTIN (PHENYTOIN) 03/30/2005 5 - Intolerance LATEX 03/30/2005 5 - Intolerance pain killers [Other] 03/30/2005 5 - Intolerance Passion Fruit [Other] 03/30/2005 5 - Intolerance SHELLFISH 03/30/2005 5 - Intolerance sleeping pills [Other] 03/30/2005 5 - Intolerance STEROIDS (BETAMETHASONE DIPROPION*02/06/2010 TYLENOL COLD ([id number]*1 5 - Intolerance VALIUM (DIAZEPAM) 03/30/2005 5 - Intolerance VICODIN (HYDROCODONE-ACETAMINO PHE*03/30/2005 5 - Intolerance Date Reviewed: 11/28/2020 Reviewed by: Dia Berry PA-C - Fully Assessed Reason for Visit: [facility] [Other] Prescriptions as of 12/26/2020 - escitalopram oxalate (LEXAPRO) 20 mg tablet Take 20 mg by mouth once daily. - NIFEdipine XL (ADALAT CC) 90 mg 24 hr tablet Take 90 mg by mouth once daily. - fluticasone (FLOVENT HFA) 220 mcg/actuation inhaler Inhale 2 Puffs as instructed twice daily. - Cholecalciferol, Vitamin D3, 2,000 unit cap Take 1 capsule by mouth once daily. - cetirizine (ZYRTEC) 10 mg tablet Take 10 mg by mouth once daily. - metoprolol succinate XL, long acting, (TOPROL XL) 100 mg Tb24 Take 1 tablet by mouth twice daily. - clopidogrel (PLAVIX) 75 mg tablet Take 1 tablet by mouth once daily. - clonazePAM (KLONOPIN) 1 mg tablet Take 1 tablet by mouth four times daily. - LORazepam (ATIVAN) 0.5 mg Tab Take 1 tablet by mouth three times daily as needed. - lovastatin (MEVACOR) 20 mg ORAL tablet Take one(1) tablet daily. - paliperidone (INVEGA) 6 mg ORAL 24 hr tablet one tab at HS - omeprazole magnesium(PRILOSEC OTC 20 MG TAB) Take one(1) tablet twice daily. - OXYGEN-AIR DELIVERY SYSTEMS DEVICE as directed - PHENOBARBITAL 60 MG TAB three in the am AND two at night - LEVOTHYROXINE SODIUM 300 MCG TAB Take one(1) tablet daily. - THERAPEUTIC MULTIVITAMIN TAB Take one(1) tablet daily. - HYDROCHLOROTHIAZIDE 25 MG TAB Take one(1) tablet daily. - SINGULAIR 10 MG TAB Take one(1) tablet daily. Problem List As Of Date 11/29/2020 Noted Resolved CHRONIC AIRWAY OBSTRUCTION NEC [J44.9] 06/22/2005 EXTRINSIC ASTHMA UNSPECIFIED [J45.909] 03/13/2006 Diverticulosis [K57.90] 02/06/2010 Family History of Malignant Neoplasm of Gastroi*02/06/2010 Benign neoplasm of colon [D12.6] 05/17/2010 Diverticulosis of colon (without mention of hem*05/17/2010 Esophagitis, unspecified [K20.90] 01/30/2012 Encounter Status:Closed by AMELIE DEL RIO on 12/26/20 Normal [facility] CNPNon 11-25-2020 CNPN Telephone (GENSWS) ADRIENNE MORRISON ([id number]) 1950 F NFR Date Time Provider Department 11/25/20 YARED TENORIO GENSWS During your visit today, we recorded the following information about you: Amelie Del Rio 11/25/2020 11:48 AM Signed Patient would like to know if we got permission from Dr Howe to stop blood thinner. Amelie Del Rio 12/06/2020 9:03 AM Signed Received clearance from PCP ryan to stop blood thinner. Scanned into [employer]. Amelie Del Rio Allergies As of Date: 11/25/2020 Noted Allergy Reaction MORPHINE 03/13/2006 5 - Intolerance Comments: STOPS BREATHING Banana Peel [Other] 03/30/2005 5 - Intolerance CODEINE 03/30/2005 5 - Intolerance DILANTIN (PHENYTOIN) 03/30/2005 5 - Intolerance LATEX 03/30/2005 5 - Intolerance pain killers [Other] 03/30/2005 5 - Intolerance Passion Fruit [Other] 03/30/2005 5 - Intolerance SHELLFISH 03/30/2005 5 - Intolerance sleeping pills [Other] 03/30/2005 5 - Intolerance STEROIDS (BETAMETHASONE DIPROPION*02/06/2010 TYLENOL COLD ([id number]*1 5 - Intolerance VALIUM (DIAZEPAM) 03/30/2005 5 - Intolerance VICODIN (HYDROCODONE-ACETAMINO PHE*03/30/2005 5 - Intolerance Date Reviewed: 11/24/2020 Reviewed by: Dia Berry PA-C - Fully Assessed Reason for Visit: blood thinner [Other] Prescriptions as of 12/16/2020 - escitalopram oxalate (LEXAPRO) 20 mg tablet Take 20 mg by mouth once daily. - NIFEdipine XL (ADALAT CC) 90 mg 24 hr tablet Take 90 mg by mouth once daily. - fluticasone (FLOVENT HFA) 220 mcg/actuation inhaler Inhale 2 Puffs as instructed twice daily. - Cholecalciferol, Vitamin D3, 2,000 unit cap Take 1 capsule by mouth once daily. - cetirizine (ZYRTEC) 10 mg tablet Take 10 mg by mouth once daily. - metoprolol succinate XL, long acting, (TOPROL XL) 100 mg Tb24 Take 1 tablet by mouth twice daily. - clopidogrel (PLAVIX) 75 mg tablet Take 1 tablet by mouth once daily. - clonazePAM (KLONOPIN) 1 mg tablet Take 1 tablet by mouth four times daily. - LORazepam (ATIVAN) 0.5 mg Tab Take 1 tablet by mouth three times daily as needed. - lovastatin (MEVACOR) 20 mg ORAL tablet Take one(1) tablet daily. - paliperidone (INVEGA) 6 mg ORAL 24 hr tablet one tab at HS - omeprazole magnesium(PRILOSEC OTC 20 MG TAB) Take one(1) tablet twice daily. - OXYGEN-AIR DELIVERY SYSTEMS DEVICE as directed - PHENOBARBITAL 60 MG TAB three in the am AND two at night - LEVOTHYROXINE SODIUM 300 MCG TAB Take one(1) tablet daily. - THERAPEUTIC MULTIVITAMIN TAB Take one(1) tablet daily. - HYDROCHLOROTHIAZIDE 25 MG TAB Take one(1) tablet daily. - SINGULAIR 10 MG TAB Take one(1) tablet daily. Problem List As Of Date 11/25/2020 Noted Resolved CHRONIC AIRWAY OBSTRUCTION NEC [J44.9] 06/22/2005 EXTRINSIC ASTHMA UNSPECIFIED [J45.909] 03/13/2006 Diverticulosis [K57.90] 02/06/2010 Family History of Malignant Neoplasm of Gastroi*02/06/2010 Benign neoplasm of colon [D12.6] 05/17/2010 Diverticulosis of colon (without mention of hem*05/17/2010 Esophagitis, unspecified [K20.90] 01/30/2012 Encounter Status:Closed by AMELIE DEL RIO on 12/16/20 [facility] CNOVon 11-23-2020 CNOV Office Visit (SWS ) ADRIENNE MORRISON ([id number]) 1950 F NFR Date Time Provider Department 11/23/20 3:30 PM DIA BERRY During your visit today, we recorded the following information about you: Temperature Pulse Blood pressure Weight 97.7 degrees 74/minute 134/72 117.9 kg Height 1.549 m Jessie Casillas ROD POINTER 11/23/2020 3:34 PM Signed REVIEW OF SYSTEMS: General: The patient denies fatigue, denies weight loss, denies weight gain, denies feeling hot, and denies feelings of cold. Eyes: The patient denies glaucoma, denies eye injury/surgery, does not wear glasses or contacts. Ear/Nose/Throat: The patient denies allergies, denies hayfever, denies ear infections, and denies bloody noses. Cardiovascular: The patient denies chest pain, denies heart disease, NOTES high blood pressure,denies cardiac stent, denies prior heart attack, denies irregular heart beat, denies high cholesterol, denies poor circulation, denies heart failure, other cardiac issues, NOTES claudication, denies cold feet, denies peripheral arterial stent. Respiratory: The patient denies tuberculosis, denies pneumonia, denies frequent cough, denies pulmonary embolism, denies shortness of breath, and denies coughing up blood. Gastrointestinal: The patient denies difficulty swallowing, denies acid reflux, denies ulcers, denies vomiting, denies jaundice/hepatitis, denies gallbladder problems, denies black or tarry stools, denies hemorrhoids, denies bleeding from rectum, NOTES diverticulitis, denies constipation, denies diarrhea, denies loss of stool control, and denies hernias. Kidney/Bladder: The patient denies kidney stones, denies urine infections, and denies bloody urine. Skin: The patient denies a history of skin cancer, denies bleeding/changing moles, and denies a history of skin rash. Neurologic: The patient denies a history of epilepsy/convulsions, denies headaches, denies head/spinal injuries, and NOTES stroke/TIA. Psychiatric: The patient NOTES psychiatric medications, NOTES depression, and denies voices, denies substance abuse. Endocrine: The patient NOTES thyroid disorders, denies diabetes, and denies hormonal problems. Hematologic: The patient denies a history of bruising, denies bleeding, and denies anemia, denies blood clots. Infections: The patient NOTES a history of measles and mumps, denies rheumatic fever, and denies sexually transmitted diseases. Musculoskeletal: The patient denies back pain/injury, denies back problems, denies sciatica, denies knee/foot trouble, NOTES arthritis, or denies gout. When was patient's last Mammogram screening? 09/2020 Last Colonoscopy: 09/2014 Jessie Berry PA-C 11/28/2020 12:48 AM Signed HISTORY AND PHYSICAL Adrienne Morrison 1950 REFERRING PHYSICIAN: MD Kam CHIEF COMPLAINT: Consult (Colonoscopy) HPI: The patient is a 70 year old female referred for endoscopy. She had a Cologuard test completed through her primary care physician which was positive, prompting this referral. Adrienne notes no colon complaints. Patient denies any change in bowel habits, weight changes, visible blood in stools, black tarry stools or abdominal pain. NOTES family history of colon cancer-brother. The patient NOTES frequent acid reflux, although she states this is improved a little recently with watching what she eats. Adrienne has undergone prior endoscopy. She had colonoscopy by Dr. Camarena 10/04/14 which showed diverticulosis with otherwise normal colon. 5 year repeat colonoscopy was recommended based on her family history. She had an EGD 01/30/[address] Lim, and an inflammatory polyp was noted on colonoscopy in 2009. Patient's past medical history is significant for COPD, asthma, TIAs, diabetes mellitus, seizures, hypertensive heart disease. Patient follows with Dr. Daniels for her chronic medical conditions. Patient is maintained on multiple routine medications including clonazepam, lorazepam, phenobarbital. She is also on clopidogrel which she notes she has been allowed to hold prior to multiple procedures in the past. The patient has had prior endoscopies performed under conscious sedation, states was on same medications including above when those were completed. She notes I was awake and watched the procedures but states tolerated these without discomfort. 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 Normal [facility] Vital Signs Date Time Vital Sign Value Performing Clinician Facility 12-16-2024 08:43-0400 Body mass index (BMI) [Ratio] 58.6 kg/m2 Dr. Panda Littlejohn MD Work Phone: 8(545)867-092737 [place] [address] 12-16-2024 08:43-0400 Body temperature 95.1 [degF] Dr. Panda Littlejohn MD Work Phone: 1(998)039-694737 [place] [address] 12-16-2024 08:43-0400 Body weight 145.[address] Panda Littlejohn MD Work Phone: 7(884)410-191437 [place] [address] 12-16-2024 08:43-0400 Diastolic blood pressure 64 mm[Hg] Dr. Panda Littlejohn MD Work Phone: 7(639)950-115337 [place] [address] 12-16-2024 08:43-0400 Heart rate 44 /min Dr. Panda Littlejohn MD Work Phone: 1(106)230-628137 [place] [address] 12-16-2024 08:43-0400 Respiratory rate 18 /min Dr. Panda Littlejohn MD Work Phone: 5(669)760-722637 [place] [address] 12-16-2024 08:43-0400 SaO2% (BldA) [Mass fraction] 93 % Dr. Panda Littlejohn MD Work Phone: 1(349)545-091437 [place] [address] 12-16-2024 08:43-0400 Systolic blood pressure 96 mm[Hg] Dr. Panda Littlejohn MD Work Phone: 4(920)162-532837 [place] [address] 08-17-2024 13:04-0400 Body temperature 97.8 [degF] Dr. Richa Daniels MD Work Phone: [facility] 08-17-2024 13:04-0400 Diastolic blood pressure 81 mm[Hg] Dr. Richa Daniels MD Work Phone: [facility] 08-17-2024 13:04-0400 Heart rate 76 /min Dr. Richa Daniels MD Work Phone: 5(099)713-218261 [place] [address] 08-17-2024 13:04-0400 Inhaled oxygen flow rate 2 L/min Dr. Richa Daniels MD Work Phone: 0(256)296-350161 [place] [address] 08-17-2024 13:04-0400 Respiratory rate 16 /min Dr. Richa Daniels MD Work Phone: 0(353)709-317361 [place] [address] 08-17-2024 13:04-0400 SaO2% (BldA) [Mass fraction] 93 % Dr. Richa Daniels MD Work Phone: 8(327)955-742761 [place] [address] 08-17-2024 13:04-0400 Systolic blood pressure 154 mm[Hg] Dr. Richa Daniels MD Work Phone: 0(769)063-388861 [place] [address] 08-17-2024 03:23-0400 Inhaled oxygen concentration 30 % Dr. Richa Daniels MD Work Phone: 4(378)576-672510 [address] 08-16-2024 05:48-0400 Body mass index (BMI) [Ratio] 58.1 kg/m2 Dr. Richa Daniels MD Work Phone: 6(233)877-873161 [place] [address] 08-16-2024 05:48-0400 Body weight 144.[address] Richa Daniels MD Work Phone: 9(291)970-480410 [address] 08-14-2024 10:37-0500 Body height 157.[address] Richa Daniels MD Work Phone: 6(320)089-602061 [place] [address] 08-13-2024 20:00-0500 Diastolic blood pressure 74 mm[Hg] Dr. Richa Daniels MD Work Phone: 5(722)378-492361 [place] [address] 08-13-2024 20:00-0500 Heart rate 81 /min Dr. Richa Daniels MD Work Phone: [facility] 08-13-2024 20:00-0500 Respiratory rate 25 /min Dr. Richa Daniels MD Work Phone: 3(895)198-096261 [place] [address] 08-13-2024 20:00-0500 SaO2% (BldA) [Mass fraction] 98 % Dr. Richa Daniels MD Work Phone: 2(102)887-522261 [place] [address] 08-13-2024 20:00-0500 Systolic blood pressure 102 mm[Hg] Dr. Richa Daniels MD Work Phone: 9(834)123-148010 [place] [address] 08-13-2024 19:24-0500 Body temperature 98.8 [degF] Dr. Richa Daniels MD Work Phone: 1(845)494-353810 [place] [address] 08-13-2024 18:47-0500 Inhaled oxygen concentration 70 % Dr. Richa Daniels MD Work Phone: 8(569)401-210761 [place] [address] 08-13-2024 16:38-0500 Inhaled oxygen flow rate 15 L/min Dr. Richa Daniels MD Work Phone: 7(650)909-332361 [place] [address] 08-13-2024 15:38-0500 Body height 159.[address] Richa Daniels MD Work Phone: 8(567)780-909861 [place] [address] 08-13-2024 15:38-0500 Body mass index (BMI) [Ratio] 55.5 kg/m2 Dr. Richa Daniels MD Work Phone: [facility] 08-13-2024 15:38-0500 Body weight 142.[address] Richa Daniels MD Work Phone: 5(025)004-106461 [place] [address] 05-22-2023 07:48-0500 Body height 154.[address] Richa Daniels Work Phone: 5(135)814-031161 [place] [address] 05-22-2023 07:48-0500 Body mass index (BMI) [Ratio] 51.3 kg/m2 Dr. Richa Daniels Work Phone: 7(477)023-041561 [place] [address] 05-22-2023 07:48-0500 Body temperature 97.3 [degF] Dr. Richa Daniels Work Phone: 0(082)332-246110 [place] [address] 05-22-2023 07:48-0500 Body weight 123.[address] Richa Daniels Work Phone: 3(794)465-780110 [place] [address] 05-22-2023 07:48-0500 Diastolic blood pressure 76 mm[Hg] Dr. Richa Daniels Work Phone: 2(977)464-066910 [place] [address] 05-22-2023 07:48-0500 Heart rate 77 /min Dr. Richa Daniels Work Phone: 4(070)490-618610 [place] [address] 05-22-2023 07:48-0500 Respiratory rate 20 /min Dr. Richa Daniels Work Phone: 4(817)757-791510 [place] [address] 05-22-2023 07:48-0500 SaO2% (BldA) [Mass fraction] 98 % Dr. Richa Daniels Work Phone: 6(906)147-620410 [place] [address] 05-22-2023 07:48-0500 Systolic blood pressure 129 mm[Hg] Dr. Richa Daniels Work Phone: 3(842)856-512010 [place] [address] 11-14-2022 06:45-0400 Body height 154.[address] Richa Daniels Work Phone: 9(952)402-148010 [place] [address] 11-14-2022 06:45-0400 Body mass index (BMI) [Ratio] 52 kg/m2 Dr. Richa Daniels Work Phone: [facility] 11-14-2022 06:45-0400 Body temperature 97.8 [degF] Dr. Richa Daniels Work Phone: 4(342)570-876110 [place] [address] 11-14-2022 06:45-0400 Body weight 124.[address] Richa Dnaiels Work Phone: 7(562)525-522661 [place] [address] 11-14-2022 06:45-0400 Diastolic blood pressure 75 mm[Hg] Dr. Richa Daniels Work Phone: 2(838)958-431461 [address] [place] [id number] 11-14-2022 06:45-0400 Heart rate 73 /min Dr. Richa Daniels Work Phone: [facility] 11-14-2022 06:45-0400 Respiratory rate 20 /min Dr. Richa Daniels Work Phone: [facility] 11-14-2022 06:45-0400 SaO2% (BldA) [Mass fraction] 96 % Dr. Richa Daniels Work Phone: [facility] 11-14-2022 06:45-0400 Systolic blood pressure 124 mm[Hg] Dr. Richa Daniels Work Phone: [facility] 11-15-2021 10:31-0400 Body height 154.[address] Richa Daniels Work Phone: [facility] Work Phone: 11-15-2021 10:31-0400 Body mass index (BMI) [Ratio] 49.9 kg/m2 Dr. Richa Daniels Work Phone: [facility] Work Phone: 11-15-2021 10:31-0400 Body temperature 97.2 [degF] Dr. Richa Daniels Work Phone: [facility] Work Phone: 11-15-2021 10:31-0400 Body weight 119.[address] Richa Daniels Work Phone: [facility] Work Phone: 11-15-2021 10:31-0400 Diastolic blood pressure 80 mm[Hg] Dr. Richa Daniels Work Phone: [facility] Work Phone: 11-15-2021 10:31-0400 Heart rate 65 /min Dr. Richa Daniels Work Phone: [facility] Work Phone: 11-15-2021 10:31-0400 Respiratory rate 18 /min Dr. Richa Daniels Work Phone: [facility] Work Phone: 11-15-2021 10:31-0400 Systolic blood pressure 144 mm[Hg] Dr. Richa Daniels Work Phone: [facility] Work Phone: Encounters Encounter Date Encounter Type Care Provider Facility Start: 01-27-2025 ambulatory Panda Littlejohn OLS Facil ity:[facility] Start: 01-21-2025 ambulatory Panda Littlejohn Facility: [facility] Start: 01-11-2025 ambulatory Panda Littlejohn Facility: [facility] Start: 01-05-2025 ambulatory Panda Littlejohn Facility: [facility] Start: 12-28-2024 ambulatory Panda Littlejohn OLS Facil ity:[facility] Start: 12-16-2024 End: 12-16-2024 Patient encounter procedure Heide Figueroa NP-C -[facility] Work Phone: Start: 12-16-2024 End: 12-16-[address] Panda Littlejohn MD Work Phone: -[facility] Start: 12-08-2024 ambulatory Panda Littlejohn Facility: [facility] Start: 12-08-2024 Registered Referred Panda Littlejohn MD [facility] Start: 11-27-2024 ambulatory Panda Littlejohn Facility: [facility] Start: 10-21-2024 ambulatory Panda Littlejohn Facility: [facility] Start: 10-21-2024 Registered Referred Panda Littlejohn MD [facility] Start: 10-07-2024 ambulatory Panda Littlejohn Facility: [facility] Start: 10-07-2024 Registered Referred Panda Littlejohn MD [facility] Start: 08-17-2024 Non-patient / Non-visit Dr. Dinesh Medina MD -[facility] Start: 08-17-2024 Non-patient / Non-visit Dr. Lc Head MD -[facility] Work Phone: Start: 08-16-2024 Non-patient / Non-visit Dr. Lc Head MD -[facility] Work Phone: Start: 08-15-2024 Non-patient / Non-visit Dr. Rubina Saini MD -[facility] Start: 08-15-2024 Non-patient / Non-visit Dr. Lc Head MD -[facility] Work Phone: Start: 08-14-2024 ambulatory Panda Littlejohn Facility: [facility] Start: 08-14-2024 Non-patient / Non-visit Dr. Rubina Saini MD -[facility] Start: 08-13-2024 ambulatory Panda Littlejohn Facility: [facility] Start: 08-13-2024 End: 08-17-2024 Evaluation and management of inpatient Dr. Ibeth Parker MD -Intensive Care Unit Work Phone: Start: 06-04-2024 End: 06-04-2024 Departed Referred Panda Littlejohn MD -[facility] Start: 06-04-2024 End: 06-04-2024 ambulatory Panda TRUONG Facility:[facility] Start: 03-18-2024 ambulatory Panda TRUONG Facil ity:[facility] Start: 03-16-2024 ambulatory Luis Hernández Fac ility:[facility] Start: 03-11-[facility] Start: 03-11-2024 End: 03-16-2024 Evaluation and management of inpatient Luis Hernández Facility:[facility] Start: 02-27-2024 End: 02-27-2024 ambulatory Panda TRUONG Facility:[facility] Start: 02-11-2024 End: 02-11-2024 [facility] Start: 09-03-2023 End: 09-03-[address] Richa Daniels Work Phone: [facility] Work Phone: Start: 09-03-2023 End: 09-03-[address] Richa Daniels Work Phone: [facility] Start: 05-27-2023 End: 05-27-[address] Richa Daniels Work Phone: [facility] Start: 05-22-2023 End: 05-22-[address] [facility] Work Phone: Start: 01-08-2023 End: 01-08-[address] Richa Daniels Work Phone: [facility] Work Phone: Start: 01-08-2023 End: 01-08-[address] Richa Daniels Work Phone: [facility] Work Phone: Start: 11-14-2022 End: 11-14-[address] [facility] Work Phone: Start: 05-25-2022 End: 05-25-2022 ambulatory [facility] Work Phone: Start: 05-25-2022 End: 05-25-2022 Patient encounter procedure [facility] Start: 12-20-2021 End: 12-20-[address] Richa Daniels Work Phone: [facility] Start: 11-15-2021 End: 11-15-[address] [facility] Procedures Date Procedure Procedure Detail Performing Clinician Start: 12-08-2024 Drug screen quantita tive phenobarbital Dr. Panda Littlejohn MD Work Phone: Comment on above: Detection Limit = 3P atient drug level exceeds published reference range.Evaluate clinically for signs of potential toxicity.Performed at: [address] [id number] Director: Jose Vicente PhD, Phone: [phone] Start: 10-21-2024 Vitamin D, 25-hydrox y measurement Dr. Panda Littlejohn MD Work Phone: Comment on above: Vitamin D StatusDefi ciency: <20 ng/mL (50nmol/L)Insufficiency: 20-30 ng/mL (50-75 nmol/L)Sufficiency: 30-100 ng/mL (75-250 nmol/L)Toxicity: >100 ng/mL (>250 nmol/L) Start: 10-07-2024 Drug screen quantita tive phenobarbital Dr. Panda Littlejohn MD Work Phone: Comment on above: Detection Limit = 3P atient drug level exceeds published reference range.Evaluate clinically for signs of potential toxicity.Performed at: [place] [id number] Director: Jose Vicente PhD, Phone: [phone] Start: 08-17-2024 Cardiovascular stres s test using pharmacologic stress agent Dr. Richa Daniels MD Work Phone: Start: 08-16-2024 Plain chest X-ray Dr. Nilda Daniels MD Work Phone: Start: 08-14-2024 Gram stain microscopy D cara Daniels MD Work Phone: Start: 08-14-2024 Respiratory microbia l culture Dr. Richa Daniels MD Work Phone: Start: 08-14-[address] Richa lopez MD Work Phone: Start: 08-14-2024 Pulmonary ventilatio n perfusion study Dr. Richa Daniels MD Work Phone: Start: 08-13-2024 X-ray of chest, PA a nd lateral views Dr. Richa Daniels MD Work Phone: Start: 08-13-2024 Bacterial nucleic ac id assay Dr. Richa Daniels MD Work Phone: Start: 08-13-2024 Legionella pneumophi la antigen assay Dr. Richa Daniels MD Work Phone: Start: 08-13-[address] Richa Daniels MD Work Phone: Start: 08-13-2024 SARS-CoV-2, Influenz a & RSV (PCR) Dr. Richa Daniels MD Work Phone: Start: 08-13-2024 Streptococcus pneumo niae antigen assay Dr. Richa Daniels MD Work Phone: Start: 08-13-[address] Richa saldana MD Work Phone: Start: 01-08-2023 Screening mammography Cong Daniels Work Phone: Start: 12-20-2021 Screening mammography D cara Daniels Work Phone: H/O: surgery History of bilat eral tympanoplasty Dr. Richa Daniels Work Phone: H/O: tubal ligation History of t ubal ligation Dr. Richa Daniels Work Phone: History of cholecystectomy History of cholecystectomy Dr. Richa Daniels Work Phone: History of tonsillectomy History of tonsi llectomy Dr. Richa Daniels Work Phone: History of total hysterectomy History of total hysterectomy Dr. Richa Daniels Work Phone: Plan of Treatment Date Care Activity Detail Author Start: 08-17-2024 Patient discharge [facility] Start: 08-17-2024 [facility] Start: 08-16-2024 [facility] Start: 08-14-2024 Care planning and pr oblem solving actions [facility] Start: 08-13-2024 Application of elastic bandage [facility] Start: 08-13-2024 Aspiration precautions [facility] Start: 08-13-2024 Assessment of risk o f venous thromboembolism [facility] Start: 08-13-2024 Continuous pulse oximetry [facility] Start: 08-13-2024 Elevation of affecte d extremity [facility] Start: 08-13-2024 Elevation of head of bed [facility] Start: 08-13-2024 Fall prevention [facility] Start: 08-13-2024 Incentive spirometry [facility] Start: 08-13-2024 Insertion of cathete r into peripheral vein [facility] Start: 08-13-2024 Introduction of urin prasanna catheter [facility] Start: 08-13-2024 Measuring intake and output [facility] Start: 08-13-2024 Notification of physician [facility] Start: 08-13-2024 Oxygen therapy [facility] Start: 08-13-2024 Patient education [facility] Start: 08-13-2024 Patient referral to dietitian [facility] Start: 08-13-2024 Providing care accor ding to standard [facility] Start: 08-13-2024 Provision of activit y privileges [facility] Start: 08-13-2024 Referral to pantry steward/stewardess [facility] Start: 08-13-2024 Referral to occupati onal therapist [facility] Start: 08-13-[address] [facility] Start: 08-13-2024 Speech therapy assessment [facility] Start: 08-13-2024 Vital signs measurements [facility] Start: 08-13-2024 [facility] Start: 08-13-2024 Following clinical p athway protocol [facility] Start: 08-13-2024 Dual pressure sponta neous ventilation support [facility] Start: 08-13-2024 Hospital admission, emergency, from emergency room, medical nature [facility] Start: 08-13-[address] [facility] Start: 08-13-2024 Continuous pulse oximetry [facility] Start: 08-13-2024 End: 08-13-2024 [facility] Start: 08-13-2024 Respiratory secretio n precautions [facility] Start: 08-13-2024 Bacteria identified in Blood by Culture Blood Culture [facility] Start: 08-13-2024 Bacteria identified in Urine by Culture Urine Culture [facility] Start: 08-13-2024 Blood culture Blood Culture [facility] Start: 08-13-2024 Dual pressure sponta neous ventilation support [facility] Start: 08-13-2024 Inhalation therapy procedure [facility] Start: 08-13-2024 Patient referral to dietitian [facility] Start: 08-13-2024 [facility] Patient referral [facility] Work Phone: Urine culture [facility] Immunizations Immunization Date Immunization Notes Care Provider Fa alysa 03-08-2023 influenza, injectabl e, quadrivalent, preservative free Dr. Richa Daniels MD Work Phone: [facility] 03-09-2022 influenza, injectabl e, quadrivalent, preservative free Dr. Richa Daniels MD Work Phone: [facility] 03-21-2021 Covid (Pfizer) Dr. Richa banks MD Work Phone: [facility] 03-10-2021 influenza, injectabl e, quadrivalent, preservative free Dr. Richa Daniels MD Work Phone: [facility] 09-06-2020 Covid (Pfizer) Dr. Richa banks Work Phone: [facility] 08-16-2020 Covid (Pfizer) Dr. Richa banks Work Phone: [facility] 03-04-2020 influenza, injectabl e, quadrivalent, preservative free Dr. Richa Daniels MD Work Phone: [facility] 02-17-2019 influenza, injectabl e, quadrivalent, preservative free Dr. Richa Daniels MD Work Phone: [facility] 03-04-2018 influenza, injectabl e, quadrivalent, preservative free Dr. Richa Daniels MD Work Phone: [facility] 03-05-2017 influenza, injectabl e, quadrivalent, preservative free Dr. Richa Daniels Work Phone: [facility] 03-05-2017 influenza, seasonal, injectable Dr. Richa Daniels Work Phone: [facility] 03-05-2017 influenza, seasonal, injectable, preservative free Dr. Richa Daniels MD Work Phone: [facility] 04-06-2016 pneumococcal polysaccharide vaccine, [address] Richa Daniels MD Work Phone: [facility] 03-08-2016 influenza, injectabl e, quadrivalent, preservative free Dr. Richa Daniels MD Work Phone: [facility] 01-09-2016 tetanus toxoid, redu yves diphtheria toxoid, and acellular pertussis vaccine, adsorbed Dr. Richa Daniels MD Work Phone: [facility] 03-18-2015 influenza, injectabl e, quadrivalent, preservative free Dr. Richa Daniels MD Work Phone: [facility] 02-01-2015 pneumococcal conjuga te vaccine, [address] Richa Daniels MD Work Phone: [facility] 03-18-2014 influenza, injectabl e, quadrivalent, preservative free Dr. Richa Daniels MD Work Phone: [facility] 03-06-2013 influenza, injectabl e, quadrivalent, preservative free Dr. Richa Daniels MD Work Phone: [facility] 02-29-2012 influenza, injectabl e, quadrivalent, preservative free Dr. Richa Daniels MD Work Phone: [facility] 04-04-2009 novel influenza-H1N1 -09, preservative-free, injectable Dr. Richa Daniels MD Work Phone: [facility] 06-14-2005 pneumococcal polysaccharide vaccine, [address] Richa Daniels MD Work Phone: [facility] Payers Date Payer Category Payer Self-pay [id number] 2023 Unknown [id number] 2014 Unknown [id number] [facility] [id number] Medicare [id number] Unknown [id number] 2.16.8 40.1.869326.3.579.2.462 Unknown [id number] 2.16.8 40.1.443385.3.579.2.462 Unknown [id number] 2.16.8 40.1.110499.3.579.2.462 Unknown [id number] 2.16.8 40.1.213300.3.579.2.462 Unknown [id number] 2.16.8 40.1.147523.3.579.2.462 Unknown [id number] 2.16.8 40.1.537207.3.579.2.462 Unknown [id number] 2.16.8 40.1.385459.3.579.2.462 Unknown [id number] 2.16.8 40.1.179967.3.579.2.462 Unknown [id number] 2.16.8 40.1.725342.3.579.2.462 Unknown [id number] 2.16.8 40.1.959251.3.579.2.462 Unknown [id number] 2.16.8 40.1.046897.3.579.2.462 Unknown [id number] 2.16.8 40.1.461757.3.579.2.462 Unknown [id number] 2.16.8 40.1.471920.3.579.2.462 Unknown [id number] 2.16.8 40.1.956338.3.579.2.462 Unknown [id number] 2.16.8 40.1.148227.3.579.2.462 Unknown [id number] 2.16.8 40.1.805865.3.579.2.462 Unknown [id number] 2.16.8 40.1.629229.3.579.2.462 Unknown [id number] 2.16.8 40.1.924120.3.579.2.462 Unknown [id number] 2.16.8 40.1.681982.3.579.2.462 Unknown [id number] 2.16.8 40.1.732175.3.579.2.462 Unknown [id number] 2.16.8 40.1.709249.3.579.2.462 Unknown [id number] 2.16.8 40.1.419122.3.579.2.462 Unknown [id number] 2.16.8 40.1.366704.3.579.2.462 Unknown [id number] 2.16.8 40.1.921978.3.579.2.462 Unknown [id number] 2.16.8 40.1.054408.3.579.2.462 Unknown [id number] 2.16.8 40.1.099163.3.579.2.462 Unknown [id number] 2.16.8 40.1.618343.3.579.2.462 Unknown [id number] 2.16.8 40.1.481079.3.579.2.462 Unknown [id number] 2.16.8 40.1.477768.3.579.2.462 Unknown [id number] 2.16.8 40.1.346467.3.579.2.462 Unknown [id number] 2.16.8 40.1.446050.3.579.2.462 Unknown [id number] 2.16.8 40.1.687241.3.579.2.462 Unknown [id number] 2.16.8 40.1.710734.3.579.2.462 Unknown [id number] 2.16.8 40.1.988022.3.579.2.462 Unknown [id number] 2.16.8 40.1.658767.3.579.2.462 Unknown [id number] 2.16.8 40.1.245785.3.579.2.462 Social History Date Type Detail Facility Start: 11-15-2021 End: 05-22-2023 Tobacco smoking status NHIS Unknown if ever smoked [facility] Start: 10-18-2020 None [facility] Start: 10-18-2020 with her friend at home [facility] Start: 10-18-2020 Secondhand [facility] Start: 1950 Sex Assigned At Female [facility] Start: 08-13-2024 End: 08-13-2024 Tobacco smoking status NHIS Never smoked tobacco (finding) [facility] Start: 08-13-2024 End: 08-17-2024 Sex Female (finding) [facility] Goals Date Patient Goal Desired Activity /State Functional Status Date Assessment Result Facility 08-17-2024 Functional status Activity Abili ty Unable to Assess [facility] Work Phone: 08-15-2024 Functional status Bedrest [facility] Work Phone: Mental Status Date Assessment Result Facility 08-17-2024 Cognitive function Voice/Name [facility] Work Phone: Clinical Notes 11-23-2020 to 08-17-2024 Note Date & Type Note Facility 08-17-2024 Progress note Note Date/Time August 17, 2024 11:02am [facility] Medical Records Department [address] [place] [address] Progress Note - Cardiology 08/17/24 1055 MR#: [id number] Acct: [id number] Name: ADRIENNE MORRISON Rep #:[id number] : 1950 74 From: Benito Bright MD PCP: Dr. Panda Littlejohn MD Status:ADM IN [place] [facility] [id number] Subjective Subjective Patient is resting in the bed on oxygen. She is afraid to go back to the extended care facility without oxygen as she was discharged last time and came right back due to shortness of breath. Patient's pharmacologic nuclear stress test showed no evidence of active ischemia. Objective Data Vital Signs: Vital Signs Temp Pulse Resp BP Pulse Ox O2 Del Method O2 Flow Rate 97 F L 78 19 H 170/88 H 96 Nasal Cannula 3 08/17/24 06:00 08/17/24 07:15 08/17/24 07:15 08/17/24 06:00 08/17/24 08:19 08/17/24 08:19 08/17/24 08:19 FiO2 30 08/17/24 03:23 Oxygen Flow Rate (L/min) 3 Oxygen Delivery Method Nasal Cannula Weight: 317 lb 14.505 oz Body Mass Index (BMI) 58.1 Intake & Output: Intake and Output for Last 24 Hours 08/15/24 08/17/24 08/17/24 23:59 00:59 23:59 Intake Total 985 / 985 1260 / 1500 540 / 540 Output Total 3050 / 3050 3100 / 4300 1900 / 1900 Balance -2065 / -2065 -1840 / -2800 -1360 / -1360 Lab / Micro Data 08/17/24 03:09 08/17/24 03:09 Labs: Laboratory Results - last 24 hr 08/17/24 03:09: WBC 7.7, RBC 3.15 L, Hgb 10.2 L, Hct 31.2 L, MCV 99.0, MCH 32.4 H, MCHC 32.7, RDW Std Deviation 56.3 H, RDW Coeff of Piedad 15.7 H, Plt Count 209, MPV 10.5, Immature Gran % (Auto) 0.600, Neut % (Auto) 79.9 H, Lymph % (Auto) 11.3 L, [place] % (Auto) 6.9, Eos % (Auto) 1.0, Baso % (Auto) 0.3, Absolute Neuts (auto) 6.2, Absolute Lymphs (auto) 0.87, Nucleated RBC % 0.3, Sodium 143, Potassium 3.6, Chloride 99, Carbon Dioxide 24.6, Anion Gap 19 H, BUN 35 H, Creatinine 0.85, Estim Creat Clear Calc 79.21, Est GFR (MDRD) Non-Af 72, BUN/Creatinine Ratio 41.4 H, Glucose 134 H, Calcium 9.0 Micro: Microbiology 08/14/24 08:45 Sputum, Expectorated/Coughed Gram Stain - Final 08/14/24 08:45 Sputum, Expectorated/Coughed Respiratory Culture - Final Streptococcus agalactiae (B) 08/13/24 15:50 Blood Culture (Wb) - Venous Blood Culture - Preliminary No growth in 48 hours. 08/13/24 15:50 Blood Culture (Wb) - Venous Blood Culture - Preliminary No growth in 48 hours. Cardiology Labs/Tests 08/17/24 03:09: WBC 7.7, RBC 3.15 L, Hgb 10.2 L, Hct 31.2 L, MCV 99.0, MCH 32.4 H, MCHC 32.7, Plt Count 209, MPV 10.5, Immature Gran % (Auto) 0.600, Neut % (Auto) 79.9 H, Lymph % (Auto) 11.3 L, [place] % (Auto) 6.9, Eos % (Auto) 1.0, Baso % (Auto) 0.3, Absolute Neuts (auto) 6.2, Nucleated RBC % 0.3, Sodium 143, Potassium 3.6, Chloride 99, Carbon Dioxide 24.6, Anion Gap 19 H, BUN 35 H, Creatinine 0.85, Est GFR (MDRD) Non-Af 72, BUN/Creatinine Ratio 41.4 H, Glucose 134 H, Calcium 9.0 Rhythm: EKG: ECHO: Stress Test: Cardiac Cath: PCI: CT Surgery: Holter monitor: EPS: PPM: CXR: Chest CT Scan: Radiography Diagnostic Testing: Radiology Impression Venous Doppler Study 08/14/24 00:10 Interpretation Summary Deep veins of the bilateral lower extremities are patent and compressible segmentally. There is no evidence of bilateral lower extremity deep vein thrombosis. The bilateral great saphenous veins appearpatent and compressible segmentally. Limited study Ordering Physician: Ibeth Parker Referring Physician: Panda Littlejohn Performed By: Corona Givens RVMichelle Physical Exam Narrative Morbidly obese resting in recumbent position in bed. Const Constitutional Narrative: Patient's alert but slightly drowsy. HEENT normocephalic Eyes PERRL Neck Neck Narrative: Thick neck no obvious JVD. Chest Chest Narrative: Increased AP diameter due to morbid obesity Resp normal respiratory effort Auscultation: diminished lung sounds bilateral lower Cardio regular rate, regular rhythm, S1 normal heart sound, S2 normal heart sound, no murmurs, no rub and no gallops Cardio Narrative: Very distant heart tones due to body habitus. GI GI Narrative: Obese Extremity no pedal edema Psych mental status grossly normal Assessment & Plan Assessment/Plan (1) Congestive heart failure: QUALIFIERS: Heart failure type: diastolic Heart failure chronicity: acute on chronic Qualified Code(s): I50.33 - Acute on chronic diastolic (congestive) heart failure PLAN: Patient has a history of heart failure preserved ejection fraction. She is recovering from her respiratory insufficiency upon presentation. LV ejection fraction was normal. (2) Type 2 PR (myocardial infarction): PLAN: Patient's troponins were 300 -400. Pharmacologic nuclear stress test shows no evidence of active ischemia. I feel this was a type II event related to her respiratory insufficiency. From a cardiovascular standpoint no further evaluation is indicated and the patient could be discharged back to her extended care facility. She should be continued on diuretic therapy after discharge. She should also be considered for SGLT2 inhibitor if financially available. PLAN: Plan 1. Continue with diuresis. 2. Would discharge to extended-care facility on long-term oral diuretics. 3. Consider adding SGLT2 inhibitor 4. She had follow-up with cardiology as needed in 2-4 weeks or per previously arranged appointment. Charges/Coding Visit Charges Inpatient E&M: 42510 Subs Hosp L2 08/17/24 1102 <Electronically signed by Benito Bright MD> Cosigner Signature (if applicable): CC: ~ Signed [facility] Work Phone: [phone]) 202-499003-10-2025 Discharge summary [facility] Medical Records Department [address] [place] [address] Transfer to Extended Care MR#: [id number] Acct: [id number] Name: ADRIENNE MORRISON Rep #:[id number] : 1950 74 From: Lc Head MD PCP: Dr. Panda Littlejohn MD Status:ADM IN Certification of patient admission REQUIRED AT TIME OF ADMISSION. I CERTIFY THAT POST-HOSPITAL ECF SERVICES ARE REQUIRED TO BE GIVEN ON AN IN-PATIENT BASIS BECAUSE OF THE ABOVE NAMED PATIENT'S NEED FOR ASSISTED CARE ON A CONTINUING BASIS FOR THE CONDITION(S) FOR WHICH HE/SHE WAS RECEIVING IN-PATIENT HOSPITAL SERVICES PRIOR TO HIS/HER TRANSFER TO [facility]. 08/17/24 1123 Diet Diet Order/Speech Therapy: 08/17/24 11:14 Diet: Cardiac - Heart Healthy Fluid restriction:: 1500 mL Diet Comments: Moisten dry textures, meds whole in , distant supervision Routine Orders/Code Status Code Status: DNRCC-A DC O2, CPAP, BIPAP needs Home O2 Discharge instructions: Yes Type of respiratory needs?: Oxygen Oxygen frequency: ContinuousContinuous oxygen liters per minute: 4 Therapies Physical Therapy: Eval and Treat Occupational Therapy: Eval and Treat Speech Therapy: Eval and Treat Problem/Diagnosis (1) Congestive heart failure: Status: Acute Code(s): I50.9 - Heart failure, unspecified (2) Type 2 PR (myocardial infarction): Status: Acute Code(s): I21.A1 - Myocardial infarction type 2 Plan Patient is a 74-year-old lady resident at [facility] who was broughtto the emergency department with shortness of breath. She was reported to have vomited and route with concern for aspiration chest x-ray obtained on admission demonstrated bilateral pulmonary venous congestion. An assessment of acute hypoxic respiratory failure was made patient started on BiPAP admitted to the intensive care unit for further management 1. Acute hypoxic respiratory failure ? Multifactorial including bilateral pulmonary venous congestion, aspiration pneumonia patient was placed on noninvasive ventilation started on broad- spectrum antibiotic therapy admitted to the intensive care unit with consult placed to supervising film or videotape editor ? 08/16/2024; patient was placed on BiPAP at night. With patient going into intermittent respiratory distress the day prior ordered portable chest x-ray this a.m. for subsequent ? Patient was assessed for home oxygen prior to being sent back to her [facility] 2. Septic shock ? Secondary to a combination of acute cystitis as well as recent influenza A infection with suspected bacterial pneumonia. Patient was started on broad- spectrum antibiotic therapy after cultures havebeen initiated. Patient was notresuscitated with IV fluids per protocol given concern for fluid overload status ? 08/15/2024 patient blood pressure has stabilized. Urine cultures positive for Streptococcus agalactiae patient remains on appropriate antibiotic therapy 3. Acute cystitis ? With Streptococcus agalactiae management as discussed above 4. Acute congestive heart failure?unspecified ? Patient management noninvasive ventilation BiPAP Lasix was held off given concern for relatively low blood pressure. Serial cardiac enzymes and echo ordered and cardiology consulted by admitting physician ? 08/15/2024 patient seen in consultation by cardiology notes and recommendations reviewed. 2D echo obtained did show Mild concentric left ventricular hypertrophy. The left ventricular ejection fraction is 60 %. Stage 1 diastolic dysfunction. Moderately dilated RV with moderate systolic dysfunction. The left atrium is moderately enlarged. Mild (1+) mitral valve insufficiency. Mild to moderate (1-2+) tricuspid valve insufficiency. Right ventricular systolic pressure estimated to be 50 mmHg. ? 08/16/2024; patient is in negative fluid balance of 3 L over the past 24 5. Elevated troponin ? Suspected to be secondary to demand ischemia from above echo has been ordered subsequent serial cardiac enzymes ordered ? 08/17/2024 Case was discussed with Dr. Saini with cardiology recommended for patient to undergo nuclear stress test. Patient nuclear stress test was negative for stress-induced ischemia 6. Elevated D-dimer ? Patient was started on heparin CTA was not ordered given patient acute kidney injury most show patient has allergy to dye plan is for patient to undergo evaluation VQ scan as well as lower extremity duplex ? 08/15/2024 patient bilateral venous duplex as well as VQ scan came back unremarkable systemic anticoagulation with heparin discontinued 7. Acute kidney injury ? Creatinine from 06/04/2024 was 0.82 creatinine on admission was 1.48 creatinine did bump up to 1.55. Patient AC suspected secondary to ischemic ATN 8. Anemia ? Secondary to chronic disorder monitoring H&H and transfuse if patient becomes symptomatic or hemoglobin falls below 7 ? 08/16/2024 hemoglobin remains low at 9.6 9. Hypothyroidism ? Patient is on levothyroxine home dose continued 10. Essential hypertension ? Patient is on losartan as well as HCTZ held given relatively low blood pressure as well as impaired kidney function 11. GERD ? Patient is on PPI 12. Schizophrenia ? Plan is to continue patient antipsychotic medications 13. Seizure disorder -controlled on phenobarbital plan is to resume following med rec 14. COPD/asthma ? Bronchodilator treatment as needed 15. Dyslipidemia ?Patient is on statin therapy, continued at home dose 16 . DVT prophylaxis ? Patient is on heparin Time spent in the patient's overall evaluation,decision-making process, review of diagnostic data, adjustment of management, discussion with other providers, nursing nursing and ancillary staff involved in patient's care documentation, 36minutes Allergies/Procedures Done in Hospital Allergies amoxicillin Allergy (Verified 03/11/24 08:36) NEEDS FOLLOW-UP codeine Allergy (Verified 03/11/24 08:36) Shortness of breath cyclobenzaprine (From Flexeril) Allergy (Verified 03/11/24 08:36) NEEDS FOLLOW-UP dextromethorphan HBr (From Tylenol Cold Multi-Symptom) Allergy (Verified 03/11/24 08:36) Shortness of breath diazepam (From Valium) Allergy (Verified 03/11/24 08:36) Shortness of breath fluticasone (From Advair Diskus) Allergy (Verified 03/11/24 08:36) NEEDS FOLLOW-UP Food Allergies: Uncoded Allergy (Verified 03/11/24 08:36) Shortness of breath banana peels, passion fruit guaifenesin (From Tylenol Cold Multi-Symptom) Allergy (Verified 03/11/24 08:36) Shortness of breath hydrocodone bitartrate (From Vicodin) Allergy (Verified 03/11/24 08:36) Shortness of breath iodine Allergy (Verified 03/11/24 08:36) Anaphylaxis Latex, Natural Rubber Allergy (Verified 03/11/24 08:36) Shortness of breath morphine Allergy (Verified 03/11/24 08:36) Shortness of breath NSAIDS (Non-Steroidal Anti-Inflamma Allergy (Verified 03/11/24 08:36) Shortness of breath oxaprozin (From Daypro) Allergy (Verified 03/11/24 08:36) NEEDS FOLLOW-UP oxycodone Allergy (Verified 03/11/24 08:36) NEEDS FOLLOW-UP phenylephrine HCl (From Tylenol Cold Multi-Symptom) Allergy (Verified 03/11/24 08:36) Shortness of breath phenytoin (From Dilantin) Allergy (Verified 03/11/24 08:36) NEEDS FOLLOW-UP phenytoin sodium (From Dilantin) Allergy (Verified 03/11/24 08:36) Shortness of breath phenytoin sodium extended (From Dilantin) Allergy (Verified 03/11/24 08:36) Shortness of breath povidone-iodine (From Betadine) Allergy (Verified 03/11/24 08:36) BLISTERS pseudoephedrine HCl (From Tylenol Cold Multi-Symptom) Allergy (Verified 03/11/2408:36) Shortness of breath salmeterol (From Advair Diskus) Allergy (Verified 03/11/24 08:36) NEEDS FOLLOW-UP shellfish derived Allergy (Verified 03/11/24 08:36) NEEDS FOLLOW-UP soap (From Betadine) Allergy (Verified 03/11/24 08:36) BLISTERS tetracycline Allergy (Verified 03/11/24 08:36) NEEDS FOLLOW-UP tositumomab iodine-131 Allergy (Verified 03/11/24 08:36) NEEDS FOLLOW-UP muscle relaxers Allergy (Uncoded 05/22/23 11:04) Shortness of breath Type of Care/Length of Stay Estimated LOS: More Than 30 Days Type of Care Needed: Intermediate Rehab Potential: Fair Prognosis: Fair Additional Orders/Day of Discharge Day of Discharge: 08/17/24 Dietary and Speech Recommendations Dietitian Recommendations/Changes: Continue cardiac; 1500ml fluid restrictions. Will add consistent carbohydrate if glucose levels become elevated. Will monitor weight trends. Discharge Plan Admission Admit Date/Time: 08/13/24 19:28 Attending Provider: Lc Head Primary Care Provider: Panda Littlejohn Consulting Providers: Rubina Saini; Ibeth Parker Discharge Orders/Prescriptions Prescriptions: New cefdinir 300 mg capsule 300 mg PO BID Qty: 14 0RF guaifenesin [Mucinex] 600 mg tablet extended release 12hr 1,200 mg PO BID Qty: 20 0RF furosemide [Lasix] 40 mg tablet 40 mg PO DAILY Qty: 90 0RF prednisone 20 mg tablet 20 mg PO BID Qty: 10 0RF budesonide 0.5 mg/2 mL suspension for nebulization 0.5 mg inhalation BID Qty: 60 0RF Continued albuterol sulfate 2.5 mg /3 mL (0.083 %) solution for nebulization 2.5 mg inhalation DAILY PRN (Reason: shortness of breath or wheezing) Artificial Tears(glycerin-peg) 1-0.3 % drops 2 drp ophthalmic (eye) Q4H PRN (Reason: dry eye(s)) atorvastatin 20 mg tablet 20 mg PO QHS clonazepam 0.5 mg tablet 0.5 mg PO BID fluticasone propionate 220 mcg/actuation HFA aerosol inhaler 2 inh inhalation BID losartan 50 mg tablet 50 mg PO DAILY polyethylene glycol 3350 [Miralax] 17 gram/dose powder 17 g PO DAILY PRN (Reason: CONSTIPATION ) latanoprost 0.005 % drops 1 drp ophthalmic (eye) QHS clopidogrel 75 MG tablet 75 mg PO DAILY metoprolol succinate 100 MG tablet 100 mg PO DAILY phenobarbital 60 mg tablet 120 mg PO 0800 Patient Comments: PT TAKES 2 60MG TABS (120MG) EVERY MORNING. TAKES 3 TABS (180MG) EVERY SUN, MON, WED, TH, SAT ATBEDTIME. TAKES 1 TAB (60MG) EVERY TUES AND FRI AT BEDTIME. phenobarbital 60 mg tablet 180 mg PO WETHSA Patient Comments: PT TAKES 2 60MG TABS (120MG) EVERY MORNING. TAKES 3 TABS (180MG) EVERY SUN, MON, WED, TH, SAT ATBEDTIME. TAKES 1 TAB (60MG) EVERY TUES AND FRI AT BEDTIME. Rx Instructions: GIVE AT BEDTIME paliperidone 6 MG tablet 6 mg PO QHS acetaminophen 500 mg tablet 500 mg PO Q6H PRN (Reason: pain) levothyroxine 200 mcg tablet 200 mcg PO QHS nifedipine 90 mg tablet extended release 90 mg PO DAILY phenobarbital 60 mg tablet 60 mg PO TU Patient Comments: PT TAKES 2 60MG TABS (120MG) EVERY MORNING. TAKES 3 TABS (180MG) EVERY SUN, MON, WED, TH, SAT ATBEDTIME. TAKES 1 TAB (60MG) EVERY TUES AND FRI AT BEDTIME. cholecalciferol (vitamin D3) 25 mcg (1,000 unit) tablet 50 mcg PO DAILY escitalopram oxalate 10 mg Tablet 10 mg PO DAILY Qty: 0 0RF quetiapine 100 mg tablet 100 mg PO QHS triamcinolone acetonide 0.1 % cream 1 applic topical Q8 PRN (Reason: itching) ondansetron 4 mg tablet,disintegrating 4 mg PO Q4H PRN (Reason: nausea and vomiting) Rx Instructions: give 1st dose 30min before emetogenic chemo pantoprazole [Protonix] 40 mg tablet,delayed release (DR/EC) 40 mg PO BID albuterol sulfate 90 mcg/actuation HFA aerosol inhaler 2 puff inhalation Q4H PRN (Reason: shortness of breath or wheezing) montelukast 10 mg tablet 10 mg PO QHS Qty: 90 3RF Discontinued hydrochlorothiazide 25 MG tablet 25 mg PO DAILY Qty: 0 Referrals / Follow Up: Richa Daniels MD [[facility] - Panda Littlejohn MD [Primary Care Provider] - Within 2 Weeks Disposition Disposition (needs filled in before D/C Order can be placed): [facility] Facility 08/17/24 1123 Cosigner Signature (if applicable): CC: Dr. Rubina Saini MD; Dr. Ibeth Parker MD; Dr. Panda Littlejohn MD ~ [facility]03-10-2025 Discharge summary [facility] Medical Records Department [address] [place] [id number] Discharge Summary 08/17/24 1118 MR#: [id number] Acct: [id number] Name: ADRIENNE MORRISON Rep #:[id number] : 1950 74 From: Lc Head MD PCP: Dr. Panda Littlejohn MD Status:ADM [place] [facility] [id number] Providers Date of Admission: 08/13/24 Date of Discharge: 08/17/24 Primary Care Physician: Dr. Panda Littlejohn MD Consultations 08/13/24 20:54 Consult: Cardiology Routine Consulting Provider: Rubina Saini Reason for Consult: Resp failure, HF Exac, NSTEMI demand related likely, Shock/UTI/PNA EMERGENT Consult: No Notified: Yes Date Notified: 08/13/24 Time Notified: 20:45 Method of Notification: Text Consult: Mail Processing Associate / Pulmonary Medicine Routine Consulting Provider: Pulmonary Medicine [facility] Reason for Consult: Resp distress, Septic shock, UTI/?Asp PNA, Influenza, HF Exac, NSTEMI EMERGENT Consult: No Notified: Yes Date Notified: 08/13/24 Time Notified: 20:37 Method of Notification: Text Comments:: Please send consult through to have patient seen. Reason For Visit: SEPTIC SHOCK, HF EXAC, NSTEMI, UTI, RESP FAILURE Diagnosis Discharge Diagnosis (1) Congestive heart failure: Status: Acute Code(s): I50.9 - Heart failure, unspecified (2) Type 2 PR (myocardial infarction): Status: Acute Code(s): I21.A1 - Myocardial infarction type 2 Plan Patient is a 74-year-old lady resident at [facility] who was broughtto the emergency department with shortness of breath. She was reported to have vomited and route with concern for aspiration chest x-ray obtained on admission demonstrated bilateral pulmonary venous congestion. An assessment of acute hypoxic respiratory failure was made patient started on BiPAP admitted to the intensive care unit for further management 1. Acute hypoxic respiratory failure ? Multifactorial including bilateral pulmonary venous congestion, aspiration pneumonia patient was placed on noninvasive ventilation started on broad- spectrum antibiotic therapy admitted to the intensive care unit with consult placed to supervising film or videotape editor ? 08/16/2024; patient was placed on BiPAP at night. With patient going into intermittent respiratory distress the day prior ordered portable chest x-ray this a.m. for subsequent ? Patient was assessed for home oxygen prior to being sent back to her [facility] 2. Septic shock ? Secondary to a combination of acute cystitis as well as recent influenza A infection with suspected bacterial pneumonia. Patient was started on broad- spectrum antibiotic therapy after cultures havebeen initiated. Patient was notresuscitated with IV fluids per protocol given concern for fluid overload status ? 08/15/2024 patient blood pressure has stabilized. Urine cultures positive for Streptococcus agalactiae patient remains on appropriate antibiotic therapy 3. Acute cystitis ? With Streptococcus agalactiae management as discussed above 4. Acute congestive heart failure?unspecified ? Patient management noninvasive ventilation BiPAP Lasix was held off given concern for relatively low blood pressure. Serial cardiac enzymes and echo ordered and cardiology consulted by admitting physician ? 08/15/2024 patient seen in consultation by cardiology notes and recommendations reviewed. 2D echo obtained did show Mild concentric left ventricular hypertrophy. The left ventricular ejection fraction is 60 %. Stage 1 diastolic dysfunction. Moderately dilated RV with moderate systolic dysfunction. The left atrium is moderately enlarged. Mild (1+) mitral valve insufficiency. Mild to moderate (1-2+) tricuspid valve insufficiency. Right ventricular systolic pressure estimated to be 50 mmHg. ? 08/16/2024; patient is in negative fluid balance of 3 L over the past 24 5. Elevated troponin ? Suspected to be secondary to demand ischemia from above echo has been ordered subsequent serial cardiac enzymes ordered ? 08/17/2024 Case was discussed with Dr. Saini with cardiology recommended for patient to undergo nuclear stress test. Patient nuclear stress test was negative for stress-induced ischemia 6. Elevated D-dimer ? Patient was started on heparin CTA was not ordered given patient acute kidney injury most show patient has allergy to dye plan is for patient to undergo evaluation VQ scan as well as lower extremity duplex ? 08/15/2024 patient bilateral venous duplex as well as VQ scan came back unremarkable systemic anticoagulation with heparin discontinued 7. Acute kidney injury ? Creatinine from 06/04/2024 was 0.82 creatinine on admission was 1.48 creatinine did bump up to 1.55. Patient AC suspected secondary to ischemic ATN 8. Anemia ? Secondary to chronic disorder monitoring H&H and transfuse if patient becomes symptomatic or hemoglobin falls below 7 ? 08/16/2024 hemoglobin remains low at 9.6 9. Hypothyroidism ? Patient is on levothyroxine home dose continued 10. Essential hypertension ? Patient is on losartan as well as HCTZ held given relatively low blood pressure as well as impaired kidney function 11. GERD ? Patient is on PPI 12. Schizophrenia ? Plan is to continue patient antipsychotic medications 13. Seizure disorder -controlled on phenobarbital plan is to resume following med rec 14. COPD/asthma ? Bronchodilator treatment as needed 15. Dyslipidemia ?Patient is on statin therapy, continued at home dose 16 . DVT prophylaxis ? Patient is on heparin Time spent in the patient's overall evaluation,decision-making process, review of diagnostic data, adjustment of management, discussion with other providers, nursing nursing and ancillary staff involved in patient's care documentation, 36minutes Medications at Discharge Home Medications clopidogrel 75 mg tablet 75 mg PO DAILY 03/28/13 metoprolol succinate 100 mg tablet,extended release 24 hr 100 mg PO DAILY 03/28/13 paliperidone 6 mg tablet,extended release 24 hr 6 mg PO QHS 01/31/17 montelukast 10 mg tablet 10 mg PO QHS #90 tabs 12/03/22 albuterol sulfate 2.5 mg/3 mL (0.083 %) solution for nebulization 2.5 mg inhalation DAILY PRN shortness of breath or wheezing 11/27/23 atorvastatin 20 mg tablet 20 mg PO QHS 11/27/23 clonazepam 0.5 mg tablet 0.5 mg PO BID 11/27/23 fluticasone propionate 220 mcg/actuation HFA aerosol inhaler 2 inh inhalation BID 11/27/23 latanoprost 0.005 % eye drops 1 drp ophthalmic (eye) QHS 11/27/23 losartan 50 mg tablet 50 mg PO DAILY 11/27/23 phenobarbital 60 mg tablet 120 mg PO 0800 11/27/23 phenobarbital 60 mg tablet 180 mg PO SUMOWETHSA seizures 11/27/23 polyethylene glycol 3350 17 gram/dose oral powder (Miralax) 17 g PO DAILY PRN CONSTIPATION 11/27/23 propylene glycol 1 %-glycerin 0.3 % eye drops (Artificial Tears (glycerin-peg)) 2 drp ophthalmic (eye) Q4H PRN dry eye(s) 11/27/23 acetaminophen 500 mg tablet 500 mg PO Q6H PRN pain 03/11/24 cholecalciferol (vitamin D3) 25 mcg (1,000 unit) tablet 50 mcg PO DAILY 03/11/24 levothyroxine 200 mcg tablet 200 mcg PO QHS 03/11/24 nifedipine 90 mg tablet,extended release 90 mg PO DAILY 03/11/24 phenobarbital 60 mg tablet 60 mg PO TUFR seizures 03/11/24 escitalopram oxalate 10 mg tablet 10 mg PO DAILY #0 tabs 03/16/24 albuterol sulfate 90 mcg/actuation aerosol inhaler 2 puff inhalation Q4H PRN shortness of breath orwheezing 08/13/24 ondansetron 4 mg disintegrating tablet 4 mg PO Q4H PRN nausea and vomiting 08/13/24 pantoprazole 40 mg tablet,delayed release (Protonix) 40 mg PO BID 08/13/24 quetiapine 100 mg tablet 100 mg PO QHS 08/13/24 triamcinolone acetonide 0.1 % topical cream 1 applic topical Q8 PRN itching 08/13/24 budesonide 0.5 mg/2 mL suspension for nebulization 0.5 mg (2 mL) inhalation BID #60 mL 08/17/24 cefdinir 300 mg capsule 300 mg PO BID #14 caps 08/17/24 furosemide 40 mg tablet (Lasix) 40 mg PO DAILY #90 tabs 08/17/24 guaifenesin 600 mg tablet, extended release 12 hr (Mucinex) 1,200 mg (2 x 600 mg) PO BID #20 tabs 08/17/24 prednisone 20 mg tablet 20 mg PO BID #10 tabs 08/17/24 Physical Exam Narrative GENERAL: Cooperative HEENT: Atraumatic; normocephalic EYES; Anicteric, Normal Conjunctiva NECK; supple, normal thyroid, RESPIRATORY: Diminished to auscultation CARDIOVASCULAR: Regular S1 S2, tachycardic GI: soft, normoactive bowel sounds, : No Renal angle tenderness; EXTREMITIES: edema, no clubbing, MUSCULOSKELETAL: no muscle wasting NEURO: Awake; no lateralizing signs. SKIN: No Rash PSYCH; Flat affect Weight / BMI Weight Weight: 144.2 kg Body Mass Index (BMI) 58.1 ABG / Lab / Microbiology Data 08/17/24 03:09 08/17/24 03:09 Laboratory: Laboratory Results - last 24 hr 08/17/24 03:09: WBC 7.7, RBC 3.15 L, Hgb 10.2 L, Hct 31.2 L, MCV 99.0, MCH 32.4 H, MCHC 32.7, RDW Std Deviation 56.3 H, RDW Coeff of [place] 15.7 H, Plt Count 209, MPV 10.5, Immature Gran % (Auto) 0.600,Neut % (Auto) 79.9 H, Lymph % (Auto) 11.3 L, [place] % (Auto) 6.9, Eos % (Auto) 1.0, Baso % (Auto) 0.3, Absolute Neuts (auto) 6.2, Absolute Lymphs (auto) 0.87, Nucleated RBC % 0.3, Sodium 143, Potassium3.6, Chloride 99, Carbon Dioxide 24.6, Anion Gap 19 H, BUN 35 H, Creatinine 0.85, Estim Creat ClearCalc 79.21, Est GFR (MDRD) Non-Af 72, BUN/Creatinine Ratio 41.4 H, Glucose 134 H, Calcium 9.0 Microbiology: Microbiology 08/14/24 08:45 Sputum, Expectorated/Coughed Gram Stain - Final 08/14/24 08:45 Sputum, Expectorated/Coughed Respiratory Culture - Final Streptococcus agalactiae (B) 08/13/24 15:50 Blood Culture (Wb) - Venous Blood Culture - Preliminary No growth in 48 hours. 08/13/24 15:50 Blood Culture (Wb) - Venous Blood Culture - Preliminary No growth in 48 hours. 08/13/24 16:10 Urine, Catheterized Urine Culture - Final Streptococcus agalactiae (B) 08/13/24 13:35 Mucosa - Nasopharyngeal Respiratory Panel (PCR) - Final 08/13/24 Unknown Mucosa - Nasopharyngeal SARS-CoV-2, Influenza & RSV (PCR) -Final 08/13/24 22:01 Nasal Secretion MRSA (PCR) - Final 08/13/24 22:01 Urine Catheter - Catheter Legionella Antigen - Final 08/13/24 22:01 Urine Catheter - Catheter Streptococcus pneumoniae Antigen (M- Final Radiography Diagnostic Testing: Radiology Impression Venous Doppler Study 08/14/24 00:10 Interpretation Summary Deep veins of the bilateral lower extremities are patent and compressible segmentally. There is no evidence of bilateral lower extremity deep vein thrombosis. The bilateral great saphenous veins appearpatent and compressible segmentally. Limited study Ordering Physician: Ibeth Parker Referring Physician: Panda Littlejohn Performed By: Corona iGvens RVT D/C Instructions Discharge Diet: 8 Cup Fluid Restriction Discharge Activity: Return to Normal Activity Call your doctor if you observe: Fever of 101 or Higher, Shortness of breath, Fainting spells and Chest pain DC O2, CPAP, BIPAP Needs PSN CPAP & BiPAP: BiPAP & CPAP Settings per PSN Mode BiPAP 08/17/24 07:10 Bipap Delivery Device Face Mask 08/17/24 03:23 BiPAP Inspiratory Pressure 14 08/17/24 03:23 BiPAP Expiratory Pressure 9 08/17/24 03:23 BiPAP Rate 12 08/17/24 03:23 Fraction of Inspired Oxygen ( 30 08/17/24 03:23 FIO2) Home O2 Discharge instructions: Yes Type of respiratory needs?: Oxygen Oxygen frequency: ContinuousContinuous oxygen liters per minute: 4 DC home with Oxygen: Yes Home O2 Review: I have reviewed the oxygen testing, and the patient qualifies for home oxygen equipment and portability. The patient is mobile in the home and the community. Meaningful Use Info Meaningful Use Meaningful Use Diagnoses (Choose all that apply): CHF CHF JEFFERSON/ARB ordered at discharge?: No Reason JEFFERSON/ARB not ordered?: Not indicated Documented LVEF (%): 60 Ischemic Stroke Statin Dosing Therapy Reference: STATIN DOSE THERAPY REFERENCE: * Patients > 75 years receive moderate or high dose statin therapy. * Patients 75 years or YOUNGER should receive HIGH intensity statin dose unless contraindicated. You will be required to document reason for non-treatment if statin daily dose does not meet guidelines. HIGH DOSE STATIN THERAPY DAILY Atorvastatin > than or = to 40 mg Rosuvastatin > than or = to 20 mg Amlodipine + Atorvastatin > than or = to 2.5/40 mg Ezetimibe + Simvastatin 10/80 mg Simvastatin 80mg Discharge Plan Admission Admit Date/Time: 08/13/24 19:28 Attending Provider: Lc Head Primary Care Provider: Panda Littlejohn Consulting Providers: Rubina Saini; Ibeth Parker Discharge Orders/Prescriptions Prescriptions: New cefdinir 300 mg capsule 300 mg PO BID Qty: 14 0RF guaifenesin [Mucinex] 600 mg tablet extended release 12hr 1,200 mg PO BID Qty: 20 0RF furosemide [Lasix] 40 mg tablet 40 mg PO DAILY Qty: 90 0RF prednisone 20 mg tablet 20 mg PO BID Qty: 10 0RF budesonide 0.5 mg/2 mL suspension for nebulization 0.5 mg inhalation BID Qty: 60 0RF Continued albuterol sulfate 2.5 mg /3 mL (0.083 %) solution for nebulization 2.5 mg inhalation DAILY PRN (Reason: shortness of breath or wheezing) Artificial Tears(glycerin-peg) 1-0.3 % drops 2 drp ophthalmic (eye) Q4H PRN (Reason: dry eye(s)) atorvastatin 20 mg tablet 20 mg PO QHS clonazepam 0.5 mg tablet 0.5 mg PO BID fluticasone propionate 220 mcg/actuation HFA aerosol inhaler 2 inh inhalation BID losartan 50 mg tablet 50 mg PO DAILY polyethylene glycol 3350 [Miralax] 17 gram/dose powder 17 g PO DAILY PRN (Reason: CONSTIPATION ) latanoprost 0.005 % drops 1 drp ophthalmic (eye) QHS clopidogrel 75 MG tablet 75 mg PO DAILY metoprolol succinate 100 MG tablet 100 mg PO DAILY phenobarbital 60 mg tablet 120 mg PO 0800 Patient Comments: PT TAKES 2 60MG TABS (120MG) EVERY MORNING. TAKES 3 TABS (180MG) EVERY SUN, MON, SAT, TH, SAT ATBEDTIME. TAKES 1 TAB (60MG) EVERY TUES AND FRI AT BEDTIME. phenobarbital 60 mg tablet 180 mg PO SUMOWETHSA Patient Comments: PT TAKES 2 60MG TABS (120MG) EVERY MORNING. TAKES 3 TABS (180MG) EVERY SUN, SAT, SAT, , SAT ATBEDTIME. TAKES 1 TAB (60MG) EVERY TUES AND FRI AT BEDTIME. Rx Instructions: GIVE AT BEDTIME paliperidone 6 MG tablet 6 mg PO QHS acetaminophen 500 mg tablet 500 mg PO Q6H PRN (Reason: pain) levothyroxine 200 mcg tablet 200 mcg PO QHS nifedipine 90 mg tablet extended release 90 mg PO DAILY phenobarbital 60 mg tablet 60 mg PO TU Patient Comments: PT TAKES 2 60MG TABS (120MG) EVERY MORNING. TAKES 3 TABS (180MG) EVERY SUN, SAT, SAT, , SAT ATBEDTIME. TAKES 1 TAB (60MG) EVERY TUES AND FRI AT BEDTIME. cholecalciferol (vitamin D3) 25 mcg (1,000 unit) tablet 50 mcg PO DAILY escitalopram oxalate 10 mg Tablet 10 mg PO DAILY Qty: 0 0RF quetiapine 100 mg tablet 100 mg PO QHS triamcinolone acetonide 0.1 % cream 1 applic topical Q8 PRN (Reason: itching) ondansetron 4 mg tablet,disintegrating 4 mg PO Q4H PRN (Reason: nausea and vomiting) Rx Instructions: give 1st dose 30min before emetogenic chemo pantoprazole [Protonix] 40 mg tablet,delayed release (DR/EC) 40 mg PO BID albuterol sulfate 90 mcg/actuation HFA aerosol inhaler 2 puff inhalation Q4H PRN (Reason: shortness of breath or wheezing) montelukast 10 mg tablet 10 mg PO QHS Qty: 90 3RF Discontinued hydrochlorothiazide 25 MG tablet 25 mg PO DAILY Qty: 0 Referrals / Follow Up: Richa Daniels MD [[facility] - Panda Littlejohn MD [Primary Care Provider] - Within 2 Weeks Disposition Disposition (needs filled in before D/C Order can be placed): Sn[facility] Facility Charges/Coding Visit Charges Inpatient E&M: 66431 Disch Hosp >30min 08/17/24 1122 Cosigner Signature (if applicable): CC: Dr. Lc Head MD; Dr. Panda Littlejohn MD~ Signed [facility]03[facility]10[facility] Progress note [facility] Medical Records Department [address] [place] [address] Progress Note - Cardiology 08/17/24 1055 MR#: [id number] Acct: [id number] Name: ADRIENNE MORRISON Rep #:[id number] : 1950 74 From: Benito Brgiht MD PCP: Dr. Panda Littlejohn MD Status:ADM [place] [facility] [id number] Subjective Subjective Patient is resting in the bed on oxygen. She is afraid to go back to the extended care facility without oxygen as she was discharged last time and came right back due to shortness of breath. Patient's pharmacologic nuclear stress test showed no evidence of active ischemia. Objective Data Vital Signs: Vital Signs Temp Pulse Resp BP Pulse Ox O2 Del Method O2 Flow Rate 97 F L 78 19 H 170/88 H 96 Nasal Cannula 3 08/17/24 06:00 08/17/24 07:15 08/17/24 07:15 08/17/24 06:00 08/17/24 08:19 08/17/24 08:19 08/17/24 08:19 FiO2 30 08/17/24 03:23 Oxygen Flow Rate (L/min) 3 Oxygen Delivery Method Nasal Cannula Weight: 317 lb 14.505 oz Body Mass Index (BMI) 58.1 Intake & Output: Intake and Output for Last 24 Hours 08/15/24 08/17/24 08/17/24 23:59 00:59 23:59 Intake Total 985 / 985 1260 / 1500 540 / 540 Output Total 3050 / 3050 3100 / 4300 1900 / 1900 Balance -2065 / -2065 -1840 / -2800 -1360 / -1360 Lab / Micro Data 08/17/24 03:09 08/17/24 03:09 Labs: Laboratory Results - last 24 hr 08/17/24 03:09: WBC 7.7, RBC 3.15 L, Hgb 10.2 L, Hct 31.2 L, MCV 99.0, MCH 32.4 H, MCHC 32.7, RDW Std Deviation 56.3 H, RDW Coeff of Piedad 15.7 H, Plt Count 209, MPV 10.5, Immature Gran % (Auto) 0.600,Neut % (Auto) 79.9 H, Lymph % (Auto) 11.3 L, [place] % (Auto) 6.9, Eos % (Auto) 1.0, Baso % (Auto) 0.3, Absolute Neuts (auto) 6.2, Absolute Lymphs (auto) 0.87, Nucleated RBC % 0.3, Sodium 143, Potassium3.6, Chloride 99, Carbon Dioxide 24.6, Anion Gap 19 H, BUN 35 H, Creatinine 0.85, Estim Creat ClearCalc 79.21, Est GFR (MDRD) Non-Af 72, BUN/Creatinine Ratio 41.4 H, Glucose 134 H, Calcium 9.0 Micro: Microbiology 08/14/24 08:45 Sputum, Expectorated/Coughed Gram Stain - Final 08/14/24 08:45 Sputum, Expectorated/Coughed Respiratory Culture - Final Streptococcus agalactiae (B) 08/13/24 15:50 Blood Culture (Wb) - Venous Blood Culture - Preliminary No growth in 48 hours. 08/13/24 15:50 Blood Culture (Wb) - Venous Blood Culture - Preliminary No growth in 48 hours. Cardiology Labs/Tests 08/17/24 03:09: WBC 7.7, RBC 3.15 L, Hgb 10.2 L, Hct 31.2 L, MCV 99.0, MCH 32.4 H, MCHC 32.7, Plt Count 209, MPV 10.5, Immature Gran % (Auto) 0.600, Neut % (Auto) 79.9 H, Lymph % (Auto) 11.3 L, [place] % (Auto) 6.9, Eos % (Auto) 1.0, Baso % (Auto) 0.3, Absolute Neuts (auto) 6.2, Nucleated RBC % 0.3, Sodium 143, Potassium 3.6, Chloride 99, Carbon Dioxide 24.6, Anion Gap 19 H, BUN 35 H, Creatinine 0.85, Est GFR (MDRD) Non-Af 72, BUN/Creatinine Ratio 41.4 H, Glucose 134 H, Calcium 9.0 Rhythm: EKG: ECHO: Stress Test: Cardiac Cath: PCI: CT Surgery: Holter monitor: EPS: PPM: CXR: Chest CT Scan: Radiography Diagnostic Testing: Radiology Impression Venous Doppler Study 08/14/24 00:10 Interpretation Summary Deep veins of the bilateral lower extremities are patent and compressible segmentally. There is no evidence of bilateral lower extremity deep vein thrombosis. The bilateral great saphenous veins appearpatent and compressible segmentally. Limited study Ordering Physician: Ibeth Parker Referring Physician: Panda Littlejohn Performed By: Corona Givens RVT Physical Exam Narrative Morbidly obese resting in recumbent position in bed. Const Constitutional Narrative: Patient's alert but slightly drowsy. HEENT normocephalic Eyes PERRL Neck Neck Narrative: Thick neck no obvious JVD. Chest Chest Narrative: Increased AP diameter due to morbid obesity Resp normal respiratory effort Auscultation: diminished lung sounds bilateral lower Cardio regular rate, regular rhythm, S1 normal heart sound, S2 normal heart sound, no murmurs, no rub and no gallops Cardio Narrative: Very distant heart tones due to body habitus. GI GI Narrative: Obese Extremity no pedal edema Psych mental status grossly normal Assessment & Plan Assessment/Plan (1) Congestive heart failure: QUALIFIERS: Heart failure type: diastolic Heart failure chronicity: acute on chronic Qualified Code(s): I50.33 - Acute on chronic diastolic (congestive) heart failure PLAN: Patient has a history of heart failure preserved ejection fraction. She is recovering from her respiratory insufficiency upon presentation. LV ejection fraction was normal. (2) Type 2 PR (myocardial infarction): PLAN: Patient's troponins were 300 -400. Pharmacologic nuclear stress test shows no evidence of active ischemia. I feel this was a type II event related to her respiratory insufficiency. From a cardiovascular standpoint no further evaluation is indicated and the patient could be discharged back to her extended care facility. She should be continued on diuretic therapy after discharge. She should also be considered for SGLT2 inhibitor if financially available. PLAN: Plan 1. Continue with diuresis. 2. Would discharge to extended-care facility on long-term oral diuretics. 3. Consider adding SGLT2 inhibitor 4. She had follow-up with cardiology as needed in 2-4 weeks or per previously arranged appointment. Charges/Coding Visit Charges Inpatient E&M: 16367 Subs Hosp L2 08/17/24 1102 Cosigner Signature (if applicable): CC: ~ Signed [facility]03-10-2025 Progress note Author Lc Head [facility] Note Date/Time August 17, 2024 7:4 0am [facility] Medical Records Department [address] [facility] [place] [address] Progress Note - Hospitalist 08/17/24 0739 MR#: [id number] Acct: [id number] Name: ADRIENNE MORRISON Rep #:[id number] : 1950 74 From: Lc Head MD PCP: Dr. Panda Littlejohn MD Status:ADM IN Location: [place] [id number] Reason for Visit Reason for Visit: Diagnoses Sepsis, unspecified organism (08/13/24) Obesity, unspecified (08/13/24) Non-ST elevation (NSTEMI) myocardial infarction (08/13/24) Heart failure, unspecified (08/13/24) Urinary tract infection, site not specified (08/13/24) Wheezing (08/13/24) Severe sepsis with septic shock (08/13/24) Subjective Subjective Patient seen had a relatively uneventful night. Case was discussed with Dr. Saini with cardiology recommended for patient to undergo nuclear stress test Objective Data Objective Data Vital Signs: Vital Signs Temp Pulse Resp BP Pulse Ox O2 Del Method O2 Flow Rate 97.3 F L 61 14 129/79 H 93 Bi-pap 2 08/16/24 16:14 08/17/24 03:23 08/17/24 03:23 08/16/24 16:14 08/17/24 03:23 08/17/24 03:49 08/16/24 22:00 FiO2 30 08/17/24 03:23 Oxygen Flow Rate (L/min) 2 Oxygen Delivery Method Bi-pap Weight: 144.2 kg Body Mass Index (BMI) 58.1 Intake & Output: Intake and Output for Last 24 Hours 08/15/24 08/17/24 08/17/24 23:59 00:59 23:59 Intake Total 985 / 985 1260 / 1260 300 / 300 Output Total 3050 / 3050 3100 / 3100 Balance -2065 / -2065 -1840 / -1840 300 / 300 Lab / Micro Data 08/17/24 03:09 08/16/24 04:12 Labs: Laboratory Results - last 24 hr 08/17/24 03:09: WBC 7.7, RBC 3.15 L, Hgb 10.2 L, Hct 31.2 L, MCV 99.0, MCH 32.4 H, MCHC 32.7, RDW Std Deviation 56.3 H, RDW Coeff of Piedad 15.7 H, Plt Count 209, MPV 10.5, Immature Gran % (Auto) 0.600, Neut % (Auto) 79.9 H, Lymph % (Auto) 11.3 L, [place] % (Auto) 6.9, Eos % (Auto) 1.0, Baso % (Auto) 0.3, Absolute Neuts (auto) 6.2, Absolute Lymphs (auto) 0.87, Nucleated RBC % 0.3 Micro: Microbiology 08/14/24 08:45 Sputum, Expectorated/Coughed Gram Stain - Final 08/14/24 08:45 Sputum, Expectorated/Coughed Respiratory Culture - Preliminary Streptococcus agalactiae (B) 08/13/24 15:50 Blood Culture (Wb) - Venous Blood Culture - Preliminary No growth in 48 hours. 08/13/24 15:50 Blood Culture (Wb) - Venous Blood Culture - Preliminary No growth in 48 hours. 08/13/24 16:10 Urine, Catheterized Urine Culture - Final Streptococcus agalactiae (B) 08/13/24 13:35 Mucosa - Nasopharyngeal Respiratory Panel (PCR) - Final 08/13/24 Unknown Mucosa - Nasopharyngeal SARS-CoV-2, Influenza & RSV (PCR) - Final 08/13/24 22:01 Nasal Secretion MRSA (PCR) - Final 08/13/24 22:01 Urine Catheter - Catheter Legionella Antigen - Final 08/13/24 22:01 Urine Catheter - Catheter Streptococcus pneumoniae Antigen (M- Final Radiography Diagnostic Testing: Radiology Impression Chest X-Ray 08/16/24 08:20 IMPRESSION: Stable right perihilar infiltrates, which may represent pneumonitis/pneumonia. Small right pleural effusion. Reading [facility] Rhythm Strip Rhythm Strip: Sinus Rhythm Physical Exam Narrative GENERAL: Patient appears ill looking HEENT: Atraumatic; normocephalic EYES; Anicteric, Normal Conjunctiva NECK; supple, normal thyroid, RESPIRATORY: Diminished to auscultation with bilateral rhonchi and wheezes CARDIOVASCULAR: Regular S1 S2, tachycardic GI: soft, normoactive bowel sounds, : No Renal angle tenderness; EXTREMITIES: edema, no clubbing, MUSCULOSKELETAL: no muscle wasting NEURO: Awake; no lateralizing signs. SKIN: No Rash PSYCH; Flat affect Assessment & Plan Assessment/Plan (1) Septic shock: PLAN: Plan Patient is a 74-year-old lady resident at [facility] who was broughtto the emergency department with shortness of breath. She was reported to have vomited and route with concern for aspiration chest x-ray obtained on admission demonstrated bilateral pulmonary venous congestion. An assessment of acute hypoxic respiratory failure was made patient started on BiPAP admitted to the intensive care unit for further management 1. Acute hypoxic respiratory failure ? Multifactorial including bilateral pulmonary venous congestion, aspiration pneumonia patient was placed on noninvasive ventilation started on broad- spectrum antibiotic therapy admitted to the intensive care unit with consult placed to supervising film or videotape editor ? 08/16/2024; patient was placed on BiPAP at night. With patient going into intermittent respiratory distress the day prior ordered portable chest x-ray this a.m. for subsequent 2. Septic shock ? Secondary to a combination of acute cystitis as well as recent influenza A infection with suspected bacterial pneumonia. Patient was started on broad- spectrum antibiotic therapy after cultures have been initiated. Patient was notresuscitated with IV fluids per protocol given concern for fluid overload status ? 08/15/2024 patient blood pressure has stabilized. Urine cultures positive for Streptococcus agalactiae patient remains on appropriate antibiotic therapy 3. Acute cystitis ? With Streptococcus agalactiae management as discussed above 4. Acute congestive heart failure?unspecified ? Patient management noninvasive ventilation BiPAP Lasix was held off given concern for relatively low blood pressure. Serial cardiac enzymes and echo ordered and cardiology consulted by admitting physician ? 08/15/2024 patient seen in consultation by cardiology notes and recommendations reviewed. 2D echo obtained did show Mild concentric left ventricular hypertrophy. The left ventricular ejection fraction is 60 %. Stage 1 diastolic dysfunction. Moderately dilated RV with moderate systolic dysfunction. The left atrium is moderately enlarged. Mild (1+) mitral valve insufficiency. Mild to moderate (1-2+) tricuspid valve insufficiency. Right ventricular systolic pressure estimated to be 50 mmHg. ? 08/16/2024; patient is in negative fluid balance of 3 L over the past 24 5. Elevated troponin ? Suspected to be secondary to demand ischemia from above echo has been ordered subsequent serial cardiac enzymes ordered ? 08/17/2024 Case was discussed with Dr. Saini with cardiology recommended for patient to undergo nuclear stress test 6. Elevated D-dimer ? Patient was started on heparin CTA was not ordered given patient acute kidney injury most show patient has allergy to dye plan is for patient to undergo evaluation VQ scan as well as lower extremity duplex ? 08/15/2024 patient bilateral venous duplex as well as VQ scan came back unremarkable systemic anticoagulation with heparin discontinued 7. Acute kidney injury ? Creatinine from 06/04/2024 was 0.82 creatinine on admission was 1.48 creatinine did bump up to 1.55. Patient AC suspected secondary to ischemic ATN 8. Anemia ? Secondary to chronic disorder monitoring H&H and transfuse if patient becomes symptomatic or hemoglobin falls below 7 ? 08/16/2024 hemoglobin remains low at 9.6 9. Hypothyroidism ? Patient is on levothyroxine home dose continued 10. Essential hypertension ? Patient is on losartan as well as HCTZ held given relatively low blood pressure as well as impaired kidney function 11. GERD ? Patient is on PPI 12. Schizophrenia ? Plan is to continue patient antipsychotic medications 13. Seizure disorder -controlled on phenobarbital plan is to resume following med rec 14. COPD/asthma ? Bronchodilator treatment as needed 15. Dyslipidemia ?Patient is on statin therapy, continued at home dose 16 . DVT prophylaxis ? Patient is on heparin Time spent in the patient's overall evaluation,decision-making process, review of diagnostic data, adjustment of management, discussion with other providers, nursing nursing and ancillary staff involved in patient's care documentation, 36minutes Charges/Coding Visit Charges Inpatient E&M: 29965 Subs Hosp L2 08/17/24 0740 <Electronically signed by Lc Head MD> Cosigner Signature (if applicable): CC: ~ Signed [facility] Work Phone: [phone] 410-713703-10-2025 Progress note [facility] Medical Records Department [address] [place] [address] Progress Note - Hospitalist 08/17/24 0739 MR#: [id number] Acct: [id number] Name: ADRIENNE MORRISON Rep #:[id number] : 1950 74 From: Lc Head MD PCP: Dr. Panda Littlejohn MD Status:ADM IN Location: [place] [id number] Reason for Visit Reason for Visit: Diagnoses Sepsis, unspecified organism (08/13/24) Obesity, unspecified (08/13/24) Non-ST elevation (NSTEMI) myocardial infarction (08/13/24) Heart failure, unspecified (08/13/24) Urinary tract infection, site not specified (08/13/24) Wheezing (08/13/24) Severe sepsis with septic shock (08/13/24) Subjective Subjective Patient seen had a relatively uneventful night. Case was discussed with Dr. Saini with cardiology recommended for patient to undergo nuclear stress test Objective Data Objective Data Vital Signs: Vital Signs Temp Pulse Resp BP Pulse Ox O2 Del Method O2 Flow Rate 97.3 F L 61 14 129/79 H 93 Bi-pap 2 08/16/24 16:14 08/17/24 03:23 08/17/24 03:23 08/16/24 16:14 08/17/24 03:23 08/17/24 03:49 08/16/24 22:00 FiO2 30 08/17/24 03:23 Oxygen Flow Rate (L/min) 2 Oxygen Delivery Method Bi-pap Weight: 144.2 kg Body Mass Index (BMI) 58.1 Intake & Output: Intake and Output for Last 24 Hours 08/15/24 08/17/24 08/17/24 23:59 00:59 23:59 Intake Total 985 / 985 1260 / 1260 300 / 300 Output Total 3050 / 3050 3100 / 3100 Balance -2065 / -2065 -1840 / -1840 300 / 300 Lab / Micro Data 08/17/24 03:09 08/16/24 04:12 Labs: Laboratory Results - last 24 hr 08/17/24 03:09: WBC 7.7, RBC 3.15 L, Hgb 10.2 L, Hct 31.2 L, MCV 99.0, MCH 32.4 H, MCHC 32.7, RDW Std Deviation 56.3 H, RDW Coeff of Piedad 15.7 H, Plt Count 209, MPV 10.5, Immature Gran % (Auto) 0.600,Neut % (Auto) 79.9 H, Lymph % (Auto) 11.3 L, [place] % (Auto) 6.9, Eos % (Auto) 1.0, Baso % (Auto) 0.3, Absolute Neuts (auto) 6.2, Absolute Lymphs (auto) 0.87, Nucleated RBC % 0.3 Micro: Microbiology 08/14/24 08:45 Sputum, Expectorated/Coughed Gram Stain - Final 08/14/24 08:45 Sputum, Expectorated/Coughed Respiratory Culture - Preliminary Streptococcus agalactiae (B) 08/13/24 15:50 Blood Culture (Wb) - Venous Blood Culture - Preliminary No growth in 48 hours. 08/13/24 15:50 Blood Culture (Wb) - Venous Blood Culture - Preliminary No growth in 48 hours. 08/13/24 16:10 Urine, Catheterized Urine Culture - Final Streptococcus agalactiae (B) 08/13/24 13:35 Mucosa - Nasopharyngeal Respiratory Panel (PCR) - Final 08/13/24 Unknown Mucosa - Nasopharyngeal SARS-CoV-2, Influenza & RSV (PCR) -Final 08/13/24 22:01 Nasal Secretion MRSA (PCR) - Final 08/13/24 22:01 Urine Catheter - Catheter Legionella Antigen - Final 08/13/24 22:01 Urine Catheter - Catheter Streptococcus pneumoniae Antigen (M- Final Radiography Diagnostic Testing: Radiology Impression Chest X-Ray 08/16/24 08:20 IMPRESSION: Stable right perihilar infiltrates, which may represent pneumonitis/pneumonia. Small right pleural effusion. Reading [facility] Rhythm Strip Rhythm Strip: Sinus Rhythm Physical Exam Narrative GENERAL: Patient appears ill looking HEENT: Atraumatic; normocephalic EYES; Anicteric, Normal Conjunctiva NECK; supple, normal thyroid, RESPIRATORY: Diminished to auscultation with bilateral rhonchi and wheezes CARDIOVASCULAR: Regular S1 S2, tachycardic GI: soft, normoactive bowel sounds, : No Renal angle tenderness; EXTREMITIES: edema, no clubbing, MUSCULOSKELETAL: no muscle wasting NEURO: Awake; no lateralizing signs. SKIN: No Rash PSYCH; Flat affect Assessment & Plan Assessment/Plan (1) Septic shock: PLAN: Plan Patient is a 74-year-old lady resident at [facility] who was broughtto the emergency department with shortness of breath. She was reported to have vomited and route with concern for aspiration chest x-ray obtained on admission demonstrated bilateral pulmonary venous congestion. An assessment of acute hypoxic respiratory failure was made patient started on BiPAP admitted to the intensive care unit for further management 1. Acute hypoxic respiratory failure ? Multifactorial including bilateral pulmonary venous congestion, aspiration pneumonia patient was placed on noninvasive ventilation started on broad- spectrum antibiotic therapy admitted to the intensive care unit with consult placed to supervising film or videotape editor ? 08/16/2024; patient was placed on BiPAP at night. With patient going into intermittent respiratory distress the day prior ordered portable chest x-ray this a.m. for subsequent 2. Septic shock ? Secondary to a combination of acute cystitis as well as recent influenza A infection with suspected bacterial pneumonia. Patient was started on broad- spectrum antibiotic therapy after cultures havebeen initiated. Patient was notresuscitated with IV fluids per protocol given concern for fluid overload status ? 08/15/2024 patient blood pressure has stabilized. Urine cultures positive for Streptococcus agalactiae patient remains on appropriate antibiotic therapy 3. Acute cystitis ? With Streptococcus agalactiae management as discussed above 4. Acute congestive heart failure?unspecified ? Patient management noninvasive ventilation BiPAP Lasix was held off given concern for relatively low blood pressure. Serial cardiac enzymes and echo ordered and cardiology consulted by admitting physician ? 08/15/2024 patient seen in consultation by cardiology notes and recommendations reviewed. 2D echo obtained did show Mild concentric left ventricular hypertrophy. The left ventricular ejection fraction is 60 %. Stage 1 diastolic dysfunction. Moderately dilated RV with moderate systolic dysfunction. The left atrium is moderately enlarged. Mild (1+) mitral valve insufficiency. Mild to moderate (1-2+) tricuspid valve insufficiency. Right ventricular systolic pressure estimated to be 50 mmHg. ? 08/16/2024; patient is in negative fluid balance of 3 L over the past 24 5. Elevated troponin ? Suspected to be secondary to demand ischemia from above echo has been ordered subsequent serial cardiac enzymes ordered ? 08/17/2024 Case was discussed with Dr. Saiin with cardiology recommended for patient to undergo nuclear stress test 6. Elevated D-dimer ? Patient was started on heparin CTA was not ordered given patient acute kidney injury most show patient has allergy to dye plan is for patient to undergo evaluation VQ scan as well as lower extremity duplex ? 08/15/2024 patient bilateral venous duplex as well as VQ scan came back unremarkable systemic anticoagulation with heparin discontinued 7. Acute kidney injury ? Creatinine from 06/04/2024 was 0.82 creatinine on admission was 1.48 creatinine did bump up to 1.55. Patient AC suspected secondary to ischemic ATN 8. Anemia ? Secondary to chronic disorder monitoring H&H and transfuse if patient becomes symptomatic or hemoglobin falls below 7 ? 08/16/2024 hemoglobin remains low at 9.6 9. Hypothyroidism ? Patient is on levothyroxine home dose continued 10. Essential hypertension ? Patient is on losartan as well as HCTZ held given relatively low blood pressure as well as impaired kidney function 11. GERD ? Patient is on PPI 12. Schizophrenia ? Plan is to continue patient antipsychotic medications 13. Seizure disorder -controlled on phenobarbital plan is to resume following med rec 14. COPD/asthma ? Bronchodilator treatment as needed 15. Dyslipidemia ?Patient is on statin therapy, continued at home dose 16 . DVT prophylaxis ? Patient is on heparin Time spent in the patient's overall evaluation,decision-making process, review of diagnostic data, adjustment of management, discussion with other providers, nursing nursing and ancillary staff involved in patient's care documentation, 36minutes Charges/Coding Visit Charges Inpatient E&M: 83928 Subs Hosp L2 08/17/24 0740 Cosigner Signature (if applicable): CC: ~ Signed [facility]03-09-2025 Progress note Author Lc Head [facility] Note Date/Time August 16, 2024 8:12 am [facility] Medical Records Department [address] [facility] [place] [address] Progress Note - Hospitalist 08/16/24 0725 MR#: [id number] Acct: [id number] Name: ADRIENNE MORRISON Rep #:[id number] : 1950 74 From: Lc Head MD PCP: Dr. Panda Littlejohn MD Status:ADM IN Location: [place] [id number] Reason for Visit Reason for Visit: Diagnoses Sepsis, unspecified organism (08/13/24) Obesity, unspecified (08/13/24) Non-ST elevation (NSTEMI) myocardial infarction (08/13/24) Heart failure, unspecified (08/13/24) Urinary tract infection, site not specified (08/13/24) Wheezing (08/13/24) Severe sepsis with septic shock (08/13/24) Objective Data Objective Data Vital Signs: Vital Signs Temp Pulse Resp BP Pulse Ox O2 Del Method O2 Flow Rate 99.0 F 60 18 130/86 H 94 Bi-pap 6 08/16/24 04:03 08/16/24 07:10 08/16/24 07:10 08/16/24 04:03 08/16/24 07:10 08/16/24 04:07 08/15/24 22:00 FiO2 35 08/16/24 07:10 Oxygen Flow Rate (L/min) 6 Oxygen Delivery Method Bi-pap Weight: 144.2 kg Body Mass Index (BMI) 58.1 Intake & Output: Intake and Output for Last 24 Hours 08/14/24 08/15/24 08/17/24 23:59 23:59 00:59 Intake Total 1014.65 / 1014.65 985 / 985 100 / 100 Output Total 1075 / 1075 3050 / 3050 Balance -60.35 / -60.35 -2065 / -2065 100 / 100 Lab / Micro Data 08/16/24 04:12 08/16/24 04:12 Labs: Laboratory Results - last 24 hr 08/15/24 06:32: Vancomycin Trough 19.2 H 08/15/24 06:33: WBC 9.9, RBC 2.97 L, Hgb 9.5 L, Hct 29.6 L, MCV 99.7 H, MCH 32.0, MCHC 32.1, RDW Std Deviation 58.9 H, RDW Coeff of Piedad 16.0 H, Plt Count 160, MPV 11.1, Sodium 139, Potassium 3.9, Chloride 103, Carbon Dioxide 24.6, Anion Gap 11, BUN 31 H, Creatinine 1.01, Estim Creat Clear Calc 67.06, Est GFR (MDRD) Non-Af 58 L, BUN/Creatinine Ratio 30.8 H, Glucose 101 H, Calcium 8.5, Phosphorus 2.5 L, Magnesium 1.9, Total Bilirubin 0.18, AST 42 H, ALT 19, AlkalinePhosphatase 100, Total Protein 6.8, Albumin 3.6, Globulin 3.2, Albumin/Globulin Ratio 1.1 08/16/24 04:12: WBC 7.1, RBC 2.96 L, Hgb 9.6 L, Hct 29.2 L, MCV 98.6, MCH 32.4 H, MCHC 32.9, RDW Std Deviation 57.5 H, RDW Coeff of Piedad 15.9 H, Plt Count 163, MPV 10.8, Immature Gran % (Auto) 0.700, Neut % (Auto) 81.4 H, Lymph % (Auto) 11.5 L, [place] % (Auto) 6.2, Eos % (Auto) 0.1, Baso % (Auto) 0.1, Absolute Neuts (auto) 5.8, Absolute Lymphs (auto) 0.82 L, Nucleated RBC % 0, Sodium 139, Potassium 3.8, Chloride 101, Carbon Dioxide 24.7, Anion Gap 14, BUN 26 H, Creatinine 0.96, Estim Creat Clear Calc 70.55, Est GFR (MDRD) Non-Af 61, BUN/Creatinine Ratio 27.2 H, Glucose 111 H, Calcium 8.6 Micro: Microbiology 08/14/24 08:45 Sputum, Expectorated/Coughed Gram Stain - Final 08/14/24 08:45 Sputum, Expectorated/Coughed Respiratory Culture - Preliminary Beta hemolytic organism 08/13/24 16:10 Urine, Catheterized Urine Culture - Final Streptococcus agalactiae (B) 08/13/24 13:35 Mucosa - Nasopharyngeal Respiratory Panel (PCR) - Final 08/13/24 Unknown Mucosa - Nasopharyngeal SARS-CoV-2, Influenza & RSV (PCR) - Final 08/13/24 22:01 Nasal Secretion MRSA (PCR) - Final 08/13/24 22:01 Urine Catheter - Catheter Legionella Antigen - Final 08/13/24 22:01 Urine Catheter - Catheter Streptococcus pneumoniae Antigen (M- Final Rhythm Strip Rhythm Strip: Sinus Rhythm Physical Exam Narrative GENERAL: Patient appears ill looking HEENT: Atraumatic; normocephalic EYES; Anicteric, Normal Conjunctiva NECK; supple, normal thyroid, RESPIRATORY: Diminished to auscultation with bilateral rhonchi and wheezes CARDIOVASCULAR: Regular S1 S2, tachycardic GI: soft, normoactive bowel sounds, : No Renal angle tenderness; EXTREMITIES: edema, no clubbing, MUSCULOSKELETAL: no muscle wasting NEURO: Awake; no lateralizing signs. SKIN: No Rash PSYCH; Flat affect Assessment & Plan Assessment/Plan (1) Septic shock: PLAN: Plan Patient is a 74-year-old lady resident at [facility] who was broughtto the emergency department with shortness of breath. She was reported to have vomited and route with concern for aspiration chest x-ray obtained on admission demonstrated bilateral pulmonary venous congestion. An assessment of acute hypoxic respiratory failure was made patient started on BiPAP admitted to the intensive care unit for further management 1. Acute hypoxic respiratory failure ? Multifactorial including bilateral pulmonary venous congestion, aspiration pneumonia patient was placed on noninvasive ventilation started on broad- spectrum antibiotic therapy admitted to the intensive care unit with consult placed to supervising film or videotape editor ? 08/16/2024; patient was placed on BiPAP at night. With patient going into intermittent respiratory distress the day prior ordered portable chest x-ray this a.m. for subsequent 2. Septic shock ? Secondary to a combination of acute cystitis as well as recent influenza A infection with suspected bacterial pneumonia. Patient was started on broad- spectrum antibiotic therapy after cultures have been initiated. Patient was notresuscitated with IV fluids per protocol given concern for fluid overload status ? 08/15/2024 patient blood pressure has stabilized. Urine cultures positive for Streptococcus agalactiae patient remains on appropriate antibiotic therapy 3. Acute cystitis ? With Streptococcus agalactiae management as discussed above 4. Acute congestive heart failure?unspecified ? Patient management noninvasive ventilation BiPAP Lasix was held off given concern for relatively low blood pressure. Serial cardiac enzymes and echo ordered and cardiology consulted by admitting physician ? 08/15/2024 patient seen in consultation by cardiology notes and recommendations reviewed. 2D echo obtained did show Mild concentric left ventricular hypertrophy. The left ventricular ejection fraction is 60 %. Stage 1 diastolic dysfunction. Moderately dilated RV with moderate systolic dysfunction. The left atrium is moderately enlarged. Mild (1+) mitral valve insufficiency. Mild to moderate (1-2+) tricuspid valve insufficiency. Right ventricular systolic pressure estimated to be 50 mmHg. ? 08/16/2024; patient is in negative fluid balance of 3 L over the past 24 5. Elevated troponin ? Suspected to be secondary to demand ischemia from above echo has been ordered subsequent serial cardiac enzymes ordered 6. Elevated D-dimer ? Patient was started on heparin CTA was not ordered given patient acute kidney injury most show patient has allergy to dye plan is for patient to undergo evaluation VQ scan as well as lower extremity duplex ? 08/15/2024 patient bilateral venous duplex as well as VQ scan came back unremarkable systemic anticoagulation with heparin discontinued 7. Acute kidney injury ? Creatinine from 06/04/2024 was 0.82 creatinine on admission was 1.48 creatinine did bump up to 1.55. Patient AC suspected secondary to ischemic ATN 8. Anemia ? Secondary to chronic disorder monitoring H&H and transfuse if patient becomes symptomatic or hemoglobin falls below 7 ? 08/16/2024 hemoglobin remains low at 9.6 9. Hypothyroidism ? Patient is on levothyroxine home dose continued 10. Essential hypertension ? Patient is on losartan as well as HCTZ held given relatively low blood pressure as well as impaired kidney function 11. GERD ? Patient is on PPI 12. Schizophrenia ? Plan is to continue patient antipsychotic medications 13. Seizure disorder -controlled on phenobarbital plan is to resume following med rec 14. COPD/asthma ? Bronchodilator treatment as needed 15. Dyslipidemia ?Patient is on statin therapy, continued at home dose 16 . DVT prophylaxis ? Patient is on heparin Time spent in the patient's overall evaluation,decision-making process, review of diagnostic data, adjustment of management, discussion with other providers, nursing nursing and ancillary staff involved in patient's care documentation, 50Minutes Charges/Coding Visit Charges Inpatient E&M: 51492 Subs Hosp L3 08/16/24 0812 <Electronically signed by Lc Head MD> Cosigner Signature (if applicable): CC: ~ Signed [facility] Work Phone: [phone]) 919-380703-09-2025 Radiology Diagnostic study note [facility] Imaging Services [address] [place], [place] [address] Chest 1 View (Portable) MR#: [id number] Acct: [id number] Name: ADRIENNE MORRISON Rep #: [id number] : 1950 F 74 From: Concetta Fortune MD PCP: Dr. Panda Littlejohn MD Status: ADM IN Study:Chest 1 View (Portable) Date of Exam: 08/16/24 Exam# [id number] Ordering Dr: Cong Head MD PROCEDURE: CHEST 1 VIEW (PORTABLE) REASON FOR EXAM: 74-year-old female, shortness of breath. TECHNIQUE: Frontal view of the chest. COMPARISON: V/Q scan 08/14/2024. chest radiograph 08/13/2024. FINDINGS: The cardiomediastinal silhouette is moderately enlarged. Unchanged marked right perihilar infiltrates. Small right pleural effusion. Nopneumothorax. Degenerative changes are identified within the thoracic spine. RAD/Chest 1 View (Portable) IMPRESSION: Stable right perihilar infiltrates, which may represent pneumonitis/pneumonia. Small right pleural effusion. Reading [facility] CC: Dr. Lc Head MD; Dr. Panda Littlejohn MD ~ Statistics Intern: Signed [facility]03-09-2025 Progress note [facility] Medical Records Department [address] [place] [id number] Progress Note - Hospitalist 08/16/24 0725 MR#: [id number] Acct: [id number] Name: ADRIENNE MORRISON Rep #:[id number] : 1950 74 From: Lc Head MD PCP: Dr. Panda Littlejohn MD Status:ADM IN [place] [facility] [id number] Reason for Visit Reason for Visit: Diagnoses Sepsis, unspecified organism (08/13/24) Obesity, unspecified (08/13/24) Non-ST elevation (NSTEMI) myocardial infarction (08/13/24) Heart failure, unspecified (08/13/24) Urinary tract infection, site not specified (08/13/24) Wheezing (08/13/24) Severe sepsis with septic shock (08/13/24) Objective Data Objective Data Vital Signs: Vital Signs Temp Pulse Resp BP Pulse Ox O2 Del Method O2 Flow Rate 99.0 F 60 18 130/86 H 94 Bi-pap 6 08/16/24 04:03 08/16/24 07:10 08/16/24 07:10 08/16/24 04:03 08/16/24 07:10 08/16/24 04:07 08/15/24 22:00 FiO2 35 08/16/24 07:10 Oxygen Flow Rate (L/min) 6 Oxygen Delivery Method Bi-pap Weight: 144.2 kg Body Mass Index (BMI) 58.1 Intake & Output: Intake and Output for Last 24 Hours 08/14/24 08/15/24 08/17/24 23:59 23:59 00:59 Intake Total 1014.65 / 1014.65 985 / 985 100 / 100 Output Total 1075 / 1075 3050 / 3050 Balance -60.35 / -60.35 -2065 / -2065 100 / 100 Lab / Micro Data 08/16/24 04:12 08/16/24 04:12 Labs: Laboratory Results - last 24 hr 08/15/24 06:32: Vancomycin Trough 19.2 H 08/15/24 06:33: WBC 9.9, RBC 2.97 L, Hgb 9.5 L, Hct 29.6 L, MCV 99.7 H, MCH 32.0, MCHC 32.1, RDW Std Deviation 58.9 H, RDW Coeff of Piedad 16.0 H, Plt Count 160, MPV 11.1, Sodium 139, Potassium 3.9, Chloride 103, Carbon Dioxide 24.6, Anion Gap 11, BUN 31 H, Creatinine 1.01, Estim Creat Clear Calc 67.06, Est GFR (MDRD) Non-Af 58 L, BUN/Creatinine Ratio 30.8 H, Glucose 101 H, Calcium 8.5, Phosphorus 2.5 L, Magnesium 1.9, Total Bilirubin 0.18, AST 42 H, ALT 19, AlkalinePhosphatase 100, Total Protein 6.8, Albumin 3.6, Globulin 3.2, Albumin/Globulin Ratio 1.1 08/16/24 04:12: WBC 7.1, RBC 2.96 L, Hgb 9.6 L, Hct 29.2 L, MCV 98.6, MCH 32.4 H, MCHC 32.9, RDW Std Deviation 57.5 H, RDW Coeff of Piedad 15.9 H, Plt Count 163, MPV 10.8, Immature Gran % (Auto) 0.700, Neut % (Auto) 81.4 H, Lymph % (Auto) 11.5 L, [place] % (Auto) 6.2, Eos % (Auto) 0.1, Baso % (Auto) 0.1,Absolute Neuts (auto) 5.8, Absolute Lymphs (auto) 0.82 L, Nucleated RBC % 0, Sodium 139, Potassium 3.8, Chloride 101, Carbon Dioxide 24.7, Anion Gap 14, BUN 26 H, Creatinine 0.96, Estim Creat Clear Calc 70.55, Est GFR (MDRD) Non-Af 61, BUN/Creatinine Ratio 27.2 H, Glucose 111 H, Calcium 8.6 Micro: Microbiology 08/14/24 08:45 Sputum, Expectorated/Coughed Gram Stain - Final 08/14/24 08:45 Sputum, Expectorated/Coughed Respiratory Culture - Preliminary Beta hemolytic organism 08/13/24 16:10 Urine, Catheterized Urine Culture - Final Streptococcus agalactiae (B) 08/13/24 13:35 Mucosa - Nasopharyngeal Respiratory Panel (PCR) - Final 08/13/24 Unknown Mucosa - Nasopharyngeal SARS-CoV-2, Influenza & RSV (PCR) -Final 08/13/24 22:01 Nasal Secretion MRSA (PCR) - Final 08/13/24 22:01 Urine Catheter - Catheter Legionella Antigen - Final 08/13/24 22:01 Urine Catheter - Catheter Streptococcus pneumoniae Antigen (M- Final Rhythm Strip Rhythm Strip: Sinus Rhythm Physical Exam Narrative GENERAL: Patient appears ill looking HEENT: Atraumatic; normocephalic EYES; Anicteric, Normal Conjunctiva NECK; supple, normal thyroid, RESPIRATORY: Diminished to auscultation with bilateral rhonchi and wheezes CARDIOVASCULAR: Regular S1 S2, tachycardic GI: soft, normoactive bowel sounds, : No Renal angle tenderness; EXTREMITIES: edema, no clubbing, MUSCULOSKELETAL: no muscle wasting NEURO: Awake; no lateralizing signs. SKIN: No Rash PSYCH; Flat affect Assessment & Plan Assessment/Plan (1) Septic shock: PLAN: Plan Patient is a 74-year-old lady resident at [facility] who was broughtto the emergency department with shortness of breath. She was reported to have vomited and route with concern for aspiration chest x-ray obtained on admission demonstrated bilateral pulmonary venous congestion. An assessment of acute hypoxic respiratory failure was made patient started on BiPAP admitted to the intensive care unit for further management 1. Acute hypoxic respiratory failure ? Multifactorial including bilateral pulmonary venous congestion, aspiration pneumonia patient was placed on noninvasive ventilation started on broad- spectrum antibiotic therapy admitted to the intensive care unit with consult placed to supervising film or videotape editor ? 08/16/2024; patient was placed on BiPAP at night. With patient going into intermittent respiratory distress the day prior ordered portable chest x-ray this a.m. for subsequent 2. Septic shock ? Secondary to a combination of acute cystitis as well as recent influenza A infection with suspected bacterial pneumonia. Patient was started on broad- spectrum antibiotic therapy after cultures havebeen initiated. Patient was notresuscitated with IV fluids per protocol given concern for fluid overload status ? 08/15/2024 patient blood pressure has stabilized. Urine cultures positive for Streptococcus agalactiae patient remains on appropriate antibiotic therapy 3. Acute cystitis ? With Streptococcus agalactiae management as discussed above 4. Acute congestive heart failure?unspecified ? Patient management noninvasive ventilation BiPAP Lasix was held off given concern for relatively low blood pressure. Serial cardiac enzymes and echo ordered and cardiology consulted by admitting physician ? 08/15/2024 patient seen in consultation by cardiology notes and recommendations reviewed. 2D echo obtained did show Mild concentric left ventricular hypertrophy. The left ventricular ejection fraction is 60 %. Stage 1 diastolic dysfunction. Moderately dilated RV with moderate systolic dysfunction. The left atrium is moderately enlarged. Mild (1+) mitral valve insufficiency. Mild to moderate (1-2+) tricuspid valve insufficiency. Right ventricular systolic pressure estimated to be 50 mmHg. ? 08/16/2024; patient is in negative fluid balance of 3 L over the past 24 5. Elevated troponin ? Suspected to be secondary to demand ischemia from above echo has been ordered subsequent serial cardiac enzymes ordered 6. Elevated D-dimer ? Patient was started on heparin CTA was not ordered given patient acute kidney injury most show patient has allergy to dye plan is for patient to undergo evaluation VQ scan as well as lower extremity duplex ? 08/15/2024 patient bilateral venous duplex as well as VQ scan came back unremarkable systemic anticoagulation with heparin discontinued 7. Acute kidney injury ? Creatinine from 06/04/2024 was 0.82 creatinine on admission was 1.48 creatinine did bump up to 1.55. Patient AC suspected secondary to ischemic ATN 8. Anemia ? Secondary to chronic disorder monitoring H&H and transfuse if patient becomes symptomatic or hemoglobin falls below 7 ? 08/16/2024 hemoglobin remains low at 9.6 9. Hypothyroidism ? Patient is on levothyroxine home dose continued 10. Essential hypertension ? Patient is on losartan as well as HCTZ held given relatively low blood pressure as well as impaired kidney function 11. GERD ? Patient is on PPI 12. Schizophrenia ? Plan is to continue patient antipsychotic medications 13. Seizure disorder -controlled on phenobarbital plan is to resume following med rec 14. COPD/asthma ? Bronchodilator treatment as needed 15. Dyslipidemia ?Patient is on statin therapy, continued at home dose 16 . DVT prophylaxis ? Patient is on heparin Time spent in the patient's overall evaluation,decision-making process, review of diagnostic data, adjustment of management, discussion with other providers, nursing nursing and ancillary staff involved in patient's care documentation, 50Minutes Charges/Coding Visit Charges Inpatient E&M: 36857 Rust Hosp 08/16/24 0812 Cosigner Signature (if applicable): CC: ~ Signed [facility]03-08-2025 Progress note Author Rubina Saini [facility] Note Date/Time August 15, 2024 9:39 am [facility] Medical Records Department [address] [place] [address] Progress Note - Cardiology 08/15/24 1035 MR#: [id number] Acct: [id number] Name: ADRIENNE MORRISON Rep #:[id number] : 1950 74 From: Rubina Saini MD PCP: Dr. Panda Littlejohn MD Status:ADM IN Location: [place] [id number] Subjective Subjective Complaining of shortness of breath. Audible wheezing. Objective Data Vital Signs: Vital Signs Temp Pulse Resp BP Pulse Ox O2 Del Method O2 Flow Rate 98.1 F 87 18 134/76 H 92 High Flow 6 08/15/24 08:00 08/15/24 08:00 08/15/24 08:00 08/15/24 08:00 08/15/24 10:00 08/15/24 10:00 08/15/24 10:00 FiO2 35 08/15/24 04:20 Oxygen Flow Rate (L/min) 6 Oxygen Delivery Method High Flow Weight: 320 lb 12.361 oz Body Mass Index (BMI) 58.6 Intake & Output: Intake and Output for Last 24 Hours 08/13/24 08/14/24 08/15/24 23:59 23:59 23:59 Intake Total 3803.92 / 3803.92 1014.65 / 1014.65 200 / 200 Output Total 1075 / 1075 Balance 3803.92 / 3653.92 -60.35 / -60.35 200 / 200 Lab / Micro Data 08/15/24 06:33 08/14/24 02:55 Labs: Laboratory Results - last 24 hr 08/14/24 12:29: APTT > 200.0 H* 08/15/24 06:32: Vancomycin Trough 19.2 H 08/15/24 06:33: WBC 9.9, RBC 2.97 L, Hgb 9.5 L, Hct 29.6 L, MCV 99.7 H, MCH 32.0, MCHC 32.1, RDW Std Deviation 58.9 H, RDW Coeff of Piedad 16.0 H, Plt Count 160, MPV 11.1 Micro: Microbiology 08/13/24 16:10 Urine, Catheterized Urine Culture - Final Streptococcus agalactiae (B) 08/13/24 13:35 Mucosa - Nasopharyngeal Respiratory Panel (PCR) - Final 08/14/24 08:45 Sputum, Expectorated/Coughed Gram Stain - Final Rhythm Strip Rhythm Strip: Sinus Rhythm Cardiology Labs/Tests 08/14/24 12:29: APTT > 200.0 H* 08/15/24 06:33: WBC 9.9, RBC 2.97 L, Hgb 9.5 L, Hct 29.6 L, MCV 99.7 H, MCH 32.0, MCHC 32.1, Plt Count 160, MPV 11.1 Rhythm: EKG: ECHO: Stress Test: Cardiac Cath: PCI: CT Surgery: Holter monitor: EPS: PPM: CXR: Chest CT Scan: Radiography Diagnostic Testing: Radiology Impression Echocardiogram 08/13/24 21:49 Interpretation Summary Technically difficult study secondary to body habitus with suboptimal images. Mild concentric left ventricular hypertrophy. The left ventricular ejection fraction is 60 %. Stage 1 diastolic dysfunction. Moderately dilated RV with moderate systolic dysfunction. The left atrium is moderately enlarged. Mild (1+) mitral valve insufficiency. Mild to moderate (1-2+) tricuspid valve insufficiency. Right ventricular systolic pressure estimated to be 50 mmHg. Ordering Physician: Paresh Brunson Referring Physician: Panda Littlejohn Performed By: Ghazal Newman, RDCS, RVT Lung Scan-VQ NM 08/14/24 08:24 IMPRESSION: NORMAL V/Q SCAN. Reading Location: [place] [address] Physical Exam Narrative Morbidly obese. Heart sounds 1 and 2 noted. Chest examination with bilateral diffuse wheezing. Alert oriented x 3. No ankle edema. Assessment & Plan Assessment/Plan (1) NSTEMI (non-ST elevated myocardial infarction): PLAN: Most likely type II with demand type ischemia. Continue aspirin. Recommend pharmacological stress Myoview prior to discharge from the hospital. (2) Congestive heart failure: PLAN: HFpEF. No clinical signs of fluid volume overload. Right ventricle dilated with pulmonary artery systolic pressure of 50 mmHg. Moderate pulmonary hypertension likely secondary to obstructive sleep apnea. (3) Septic shock: PLAN: Resolved with fluids. (4) UTI (urinary tract infection): PLAN: On antibiotics. (5) Super obesity: PLAN: Lose weight. (6) Wheezing: PLAN: On bronchodilator therapy. Started on steroids this morning. Continue tomanage as per hospitalist. 08/15/24 1039 <Electronically signed by Rubina Saini MD> Cosigner Signature (if applicable): CC: ~ Signed [facility] Work Phone: 1([phone]) 367-581603-08-2025 Progress note Author Lc Head [facility] Note Date/Time August 15, 2024 7:58 am [facility] Medical Records Department [address] [place] [address] Progress Note - Hospitalist 08/15/24 0738 MR#: [id number] Acct: [id number] Name: ADRIENNE MORRISON Rep #:[id number] : 1950 74 From: Lc Head MD PCP: Dr. Panda Littlejohn MD Status:ADM IN Location: [place] [address] Reason for Visit Reason for Visit: Diagnoses Sepsis, unspecified organism (08/13/24) Obesity, unspecified (08/13/24) Non-ST elevation (NSTEMI) myocardial infarction (08/13/24) Heart failure, unspecified (08/13/24) Urinary tract infection, site not specified (08/13/24) Severe sepsis with septic shock (08/13/24) Objective Data Objective Data Vital Signs: Vital Signs Temp Pulse Resp BP Pulse Ox O2 Del Method O2 Flow Rate 98 F 78 18 119/86 H 95 High Flow 7 08/15/24 02:00 08/15/24 04:20 08/15/24 04:20 08/15/24 02:00 08/15/24 05:30 08/15/24 05:30 08/15/24 05:30 FiO2 35 08/15/24 04:20 Oxygen Flow Rate (L/min) 7 Oxygen Delivery Method High Flow Weight: 145.5 kg Body Mass Index (BMI) 58.6 Intake & Output: Intake and Output for Last 24 Hours 08/13/24 08/14/24 08/15/24 23:59 23:59 23:59 Intake Total 3803.92 / 3803.92 1014.65 / 1014.65 200 / 200 Output Total 1075 / 1075 Balance 3803.92 / 3653.92 -60.35 / -60.35 200 / 200 Lab / Micro Data 08/14/24 02:55 08/14/24 02:55 Labs: Laboratory Results - last 24 hr 08/14/24 08:45: NT pro BNP II 3934 H, Procalcitonin 0.39 H 08/14/24 12:29: APTT > 200.0 H* 08/15/24 06:32: Vancomycin Trough 19.2 H Micro: Microbiology 08/13/24 16:10 Urine, Catheterized Urine Culture - Final Streptococcus agalactiae (B) 08/13/24 13:35 Mucosa - Nasopharyngeal Respiratory Panel (PCR) - Final 08/14/24 08:45 Sputum, Expectorated/Coughed Gram Stain - Final 08/13/24 Unknown Mucosa - Nasopharyngeal SARS-CoV-2, Influenza & RSV (PCR) - Final 08/13/24 22:01 Nasal Secretion MRSA (PCR) - Final 08/13/24 22:01 Urine Catheter - Catheter Legionella Antigen - Final 08/13/24 22:01 Urine Catheter - Catheter Streptococcus pneumoniae Antigen (M- Final Radiography Diagnostic Testing: Radiology Impression Echocardiogram 08/13/24 21:49 Interpretation Summary Technically difficult study secondary to body habitus with suboptimal images. Mild concentric left ventricular hypertrophy. The left ventricular ejection fraction is 60 %. Stage 1 diastolic dysfunction. Moderately dilated RV with moderate systolic dysfunction. The left atrium is moderately enlarged. Mild (1+) mitral valve insufficiency. Mild to moderate (1-2+) tricuspid valve insufficiency. Right ventricular systolic pressure estimated to be 50 mmHg. Ordering Physician: Paresh Brunson Referring Physician: Panda Littlejohn Performed By: Ghazal eNwman RDCS, RVT Lung Scan-VQ NM 08/14/24 08:24 IMPRESSION: NORMAL V/Q SCAN. Reading Location: [place] [address] Rhythm Strip Rhythm Strip: Sinus Rhythm Physical Exam Narrative GENERAL: Patient appears ill looking HEENT: Atraumatic; normocephalic EYES; Anicteric, Normal Conjunctiva NECK; supple, normal thyroid, RESPIRATORY: Diminished to auscultation with bilateral rhonchi and wheezes CARDIOVASCULAR: Regular S1 S2, tachycardic GI: soft, normoactive bowel sounds, : No Renal angle tenderness; EXTREMITIES: edema, no clubbing, MUSCULOSKELETAL: no muscle wasting NEURO: Awake; no lateralizing signs. SKIN: No Rash PSYCH; Flat affect Assessment & Plan Assessment/Plan (1) Septic shock: PLAN: Plan Patient is a 74-year-old lady resident at [facility] who was broughtto the emergency department with shortness of breath. She was reported to have vomited and route with concern for aspiration chest x-ray obtained on admission demonstrated bilateral pulmonary venous congestion. An assessment of acute hypoxic respiratory failure was made patient started on BiPAP admitted to the intensive care unit for further management 1. Acute hypoxic respiratory failure ? Multifactorial including bilateral pulmonary venous congestion, aspiration pneumonia patient was placed on noninvasive ventilation started on broad- spectrum antibiotic therapy admitted to the intensive care unit with consult placed to supervising film or videotape editor 2. Septic shock ? Secondary to a combination of acute cystitis as well as recent influenza A infection with suspected bacterial pneumonia. Patient was started on broad- spectrum antibiotic therapy after cultures have been initiated. Patient was notresuscitated with IV fluids per protocol given concern for fluid overload status ? 08/15/2024 patient blood pressure has stabilized. Urine cultures positive for Streptococcus agalactiae patient remains on appropriate antibiotic therapy 3. Acute cystitis ? With Streptococcus agalactiae management as discussed above 4. Acute congestive heart failure?unspecified ? Patient management noninvasive ventilation BiPAP Lasix was held off given concern for relatively low blood pressure. Serial cardiac enzymes and echo ordered and cardiology consulted by admitting physician ? 08/15/2024 patient seen in consultation by cardiology notes and recommendations reviewed. 2D echo obtained did show Mild concentric left ventricular hypertrophy. The left ventricular ejection fraction is 60 %. Stage 1 diastolic dysfunction. Moderately dilated RV with moderate systolic dysfunction. The left atrium is moderately enlarged. Mild (1+) mitral valve insufficiency. Mild to moderate (1-2+) tricuspid valve insufficiency. Right ventricular systolic pressure estimated to be 50 mmHg. 5. Elevated troponin ? Suspected to be secondary to demand ischemia from above echo has been ordered subsequent serial cardiac enzymes ordered 6. Elevated D-dimer ? Patient was started on heparin CTA was not ordered given patient acute kidney injury most show patient has allergy to dye plan is for patient to undergo evaluation VQ scan as well as lower extremity duplex ? 08/15/2024 patient bilateral venous duplex as well as VQ scan came back unremarkable systemic anticoagulation with heparin discontinued 7. Acute kidney injury ? Creatinine from 06/04/2024 was 0.82 creatinine on admission was 1.48 creatinine did bump up to 1.55. Patient AC suspected secondary to ischemic ATN 8. Anemia ? Secondary to chronic disorder monitoring H&H and transfuse if patient becomes symptomatic or hemoglobin falls below 7 9. Hypothyroidism ? Patient is on levothyroxine home dose continued 10. Essential hypertension ? Patient is on losartan as well as HCTZ held given relatively low blood pressure as well as impaired kidney function 11. GERD ? Patient is on PPI 12. Schizophrenia ? Plan is to continue patient antipsychotic medications 13. Seizure disorder -controlled on phenobarbital plan is to resume following med rec 14. COPD/asthma ? Bronchodilator treatment as needed 15. Dyslipidemia ?Patient is on statin therapy, continued at home dose 16 . DVT prophylaxis ? Patient is on heparin Time spent in the patient's overall evaluation,decision-making process, review of diagnostic data, adjustment of management, discussion with other providers, nursing nursing and ancillary staff involved in patient's care documentation, 50Minutes Charges/Coding Visit Charges Inpatient E&M: 58893 Subs Hosp L3 08/15/24 0858 <Electronically signed by Lc Heda MD> Cosigner Signature (if applicable): CC: ~ Signed [facility] Work Phone: 1(375) 247-751403-08-2025 Progress note [facility] Medical Records Department [address] [place] [address] Progress Note - Cardiology 08/15/24 1035 MR#: [id number] Acct: [id number] Name: ADRIENNE MORRISON Rep #:[id number] : 1950 74 From: Rubina Saini MD PCP: Dr. Panda Littlejohn MD Status:ADM IN Location: [place] [address]-1 Subjective Subjective Complaining of shortness of breath. Audible wheezing. Objective Data Vital Signs: Vital Signs Temp Pulse Resp BP Pulse Ox O2 Del Method O2 Flow Rate 98.1 F 87 18 134/76 H 92 High Flow 6 08/15/24 08:00 08/15/24 08:00 08/15/24 08:00 08/15/24 08:00 08/15/24 10:00 08/15/24 10:00 08/15/24 10:00 FiO2 35 08/15/24 04:20 Oxygen Flow Rate (L/min) 6 Oxygen Delivery Method High Flow Weight: 320 lb 12.361 oz Body Mass Index (BMI) 58.6 Intake & Output: Intake and Output for Last 24 Hours 08/13/24 08/14/24 08/15/24 23:59 23:59 23:59 Intake Total 3803.92 / 3803.92 1014.65 / 1014.65 200 / 200 Output Total 1075 / 1075 Balance 3803.92 / 3653.92 -60.35 / -60.35 200 / 200 Lab / Micro Data 08/15/24 06:33 08/14/24 02:55 Labs: Laboratory Results - last 24 hr 08/14/24 12:29: APTT > 200.0 H* 08/15/24 06:32: Vancomycin Trough 19.2 H 08/15/24 06:33: WBC 9.9, RBC 2.97 L, Hgb 9.5 L, Hct 29.6 L, MCV 99.7 H, MCH 32.0, MCHC 32.1, RDW Std Deviation 58.9 H, RDW Coeff of Piedad 16.0 H, Plt Count 160, MPV 11.1 Micro: Microbiology 08/13/24 16:10 Urine, Catheterized Urine Culture - Final Streptococcus agalactiae (B) 08/13/24 13:35 Mucosa - Nasopharyngeal Respiratory Panel (PCR) - Final 08/14/24 08:45 Sputum, Expectorated/Coughed Gram Stain - Final Rhythm Strip Rhythm Strip: Sinus Rhythm Cardiology Labs/Tests 08/14/24 12:29: APTT > 200.0 H* 08/15/24 06:33: WBC 9.9, RBC 2.97 L, Hgb 9.5 L, Hct 29.6 L, MCV 99.7 H, MCH 32.0, MCHC 32.1, Plt Count 160, MPV 11.1 Rhythm: EKG: ECHO: Stress Test: Cardiac Cath: PCI: CT Surgery: Holter monitor: EPS: PPM: CXR: Chest CT Scan: Radiography Diagnostic Testing: Radiology Impression Echocardiogram 08/13/24 21:49 Interpretation Summary Technically difficult study secondary to body habitus with suboptimal images. Mild concentric left ventricular hypertrophy. The left ventricular ejection fraction is 60 %. Stage 1 diastolic dysfunction. Moderately dilated RV with moderate systolic dysfunction. The left atrium is moderately enlarged. Mild (1+) mitral valve insufficiency. Mild to moderate (1-2+) tricuspid valve insufficiency. Right ventricular systolic pressure estimated to be 50 mmHg. Ordering Physician: Paresh Brunson Referring Physician: Panda Littlejohn Performed By: Ghazal Newman, TIFFANI, RVT Lung Scan-VQ NM 08/14/24 08:24 IMPRESSION: NORMAL V/Q SCAN. Reading Location: [place] [address] Physical Exam Narrative Morbidly obese. Heart sounds 1 and 2 noted. Chest examination with bilateral diffuse wheezing. Alert oriented x 3. No ankle edema. Assessment & Plan Assessment/Plan (1) NSTEMI (non-ST elevated myocardial infarction): PLAN: Most likely type II with demand type ischemia. Continue aspirin. Recommend pharmacological stress Myoview prior to discharge from the hospital. (2) Congestive heart failure: PLAN: HFpEF. No clinical signs of fluid volume overload. Right ventricle dilated with pulmonary artery systolic pressure of 50 mmHg. Moderate pulmonary hypertension likely secondary to obstructive sleep apnea. (3) Septic shock: PLAN: Resolved with fluids. (4) UTI (urinary tract infection): PLAN: On antibiotics. (5) Super obesity: PLAN: Lose weight. (6) Wheezing: PLAN: On bronchodilator therapy. Started on steroids this morning. Continue tomanage as per hospitalist. 08/15/24 1039 Cosigner Signature (if applicable): CC: ~ Signed [facility]03-08-2025 Consult note Author Benjamin Vaz [facility] Note Date/Time August 15, 2024 7:11 am [facility] Medical Records Department [address] [place] [address] Pharmacokinetic/Renal -Consult 08/15/24 0733 MR#: [id number] Acct: [id number] Name: ADRIENNE MORRISON Rep #:[id number] : 1950 74 From: Benjamin stewart PCP: Dr. Panda Littlejohn MD Status:ADM IN Y Location: [place] [address]-1 Consult Antibiotic Management Pharmacy has been consulted to manage selected antibiotic: Vancomycin Type of Intervention Type of Consult: Follow-up Prior Doses of Antibiotics Prior Doses of Antibiotics Received/Current Regimen: CURRENT DOSE IS 1000MG IV Q12H Labs Labs: Sodium 140 mmol/L (133-145) 08/14/24 02:55 Potassium 4.5 mmol/L (3.3-5.1) 08/14/24 02:55 Chloride 101 mmol/L (98-108) 08/14/24 02:55 Carbon Dioxide 22.8 mmol/L (21.0-32.0) 08/14/24 02:55 Anion Gap 16 (5-15) H 08/14/24 02:55 BUN 33 mg/dL (4-19) H 08/14/24 02:55 Creatinine 1.55 mg/dL (0.70-1.20) H 08/14/24 02:55 Est GFR (MDRD) Non-Af 35 (>60) L 08/14/24 02:55 BUN/Creatinine Ratio 21.5 RATIO (10-20) H 08/14/24 02:55 Glucose 114 mg/dL (70-99) H 08/14/24 02:55 Vancomycin Trough 19.2 ug/mL (5.0-15.0) H 08/15/24 06:32 Microbiology Microbiology: Microbiology 08/13/24 16:10 Urine, Catheterized Urine Culture - Final Streptococcus agalactiae (B) 08/13/24 13:35 Mucosa - Nasopharyngeal Respiratory Panel (PCR) - Final 08/14/24 08:45 Sputum, Expectorated/Coughed Gram Stain - Final 08/13/24 Unknown Mucosa - Nasopharyngeal SARS-CoV-2, Influenza & RSV (PCR) - Final 08/13/24 22:01 Nasal Secretion MRSA (PCR) - Final 08/13/24 22:01 Urine Catheter - Catheter Legionella Antigen - Final 08/13/24 22:01 Urine Catheter - Catheter Streptococcus pneumoniae Antigen (M- Final Dosing Weight Weight used for dosin.5 kg Estimated Creatinine Clearance Estimated Creatinine Clearance: 44 ml/min Goal Trough Goal Trough: 15-20 mcg/mL Pharmacy Plan for Drug Dosing Pharmacy Plan for Drug Dosing: The vanc trough drawn at 06:32 today (approx 13 hours after the previous dose) was 19.2 mcg/ml. This would have been even higher closer to 20 if drawn at the 11.5 to 12 hour kavita instead of 13 hours. Therefore, since it is already hovering around the top of the goal range after only a few doses, will decreasedose to 750mg IV q12h. Check another trough before the 4th new dose. Pharmacy Service will continue to monitor and adjust dosing as required. Follow-Up Labs Follow-Up Labs: Trough: Vancomycin Date/Time Labs Ordered Labs to be done on [date and time ordered]: 08/16/24 20:30 08/15/24 0738 <Electronically signed by Benjamin mitchell> Date _ Benjamin Vaz 08/15/24 08 <Electronically signed by Lc Head MD> Cosigner Signature (if applicable): Date Lc Head MD CC: ~ Signed [facility] Work Phone: 1(956) 464-458403-08-2025 Progress note [facility] Medical Records Department [address] [place] [address] Progress Note - Hospitalist 08/15/24737 MR#: [id number] Acct: [id number] Name: ADRIENNE MORRISON Rep #:[id number] : 1950 74 From: Lc Head MD PCP: Dr. Panda Littlejohn MD Status:ADM IN Location: [place] [id number] Reason for Visit Reason for Visit: Diagnoses Sepsis, unspecified organism (08/13/24) Obesity, unspecified (08/13/24) Non-ST elevation (NSTEMI) myocardial infarction (08/13/24) Heart failure, unspecified (08/13/24) Urinary tract infection, site not specified (08/13/24) Severe sepsis with septic shock (08/13/24) Objective Data Objective Data Vital Signs: Vital Signs Temp Pulse Resp BP Pulse Ox O2 Del Method O2 Flow Rate 98 F 78 18 119/86 H 95 High Flow 7 08/15/24 02:00 08/15/24 04:20 08/15/24 04:20 08/15/24 02:00 08/15/24 05:30 08/15/24 05:30 08/15/24 05:30 FiO2 35 08/15/24 04:20 Oxygen Flow Rate (L/min) 7 Oxygen Delivery Method High Flow Weight: 145.5 kg Body Mass Index (BMI) 58.6 Intake & Output: Intake and Output for Last 24 Hours 08/13/24 08/14/24 08/15/24 23:59 23:59 23:59 Intake Total 3803.92 / 3803.92 1014.65 / 1014.65 200 / 200 Output Total 1075 / 1075 Balance 3803.92 / 3653.92 -60.35 / -60.35 200 / 200 Lab / Micro Data 08/14/24 02:55 08/14/24 02:55 Labs: Laboratory Results - last 24 hr 08/14/24 08:45: NT pro BNP II 3934 H, Procalcitonin 0.39 H 08/14/24 12:29: APTT > 200.0 H* 08/15/24 06:32: Vancomycin Trough 19.2 H Micro: Microbiology 08/13/24 16:10 Urine, Catheterized Urine Culture - Final Streptococcus agalactiae (B) 08/13/24 13:35 Mucosa - Nasopharyngeal Respiratory Panel (PCR) - Final 08/14/24 08:45 Sputum, Expectorated/Coughed Gram Stain - Final 08/13/24 Unknown Mucosa - Nasopharyngeal SARS-CoV-2, Influenza & RSV (PCR) -Final 08/13/24 22:01 Nasal Secretion MRSA (PCR) - Final 08/13/24 22:01 Urine Catheter - Catheter Legionella Antigen - Final 08/13/24 22:01 Urine Catheter - Catheter Streptococcus pneumoniae Antigen (M- Final Radiography Diagnostic Testing: Radiology Impression Echocardiogram 08/13/24 21:49 Interpretation Summary Technically difficult study secondary to body habitus with suboptimal images. Mild concentric left ventricular hypertrophy. The left ventricular ejection fraction is 60 %. Stage 1 diastolic dysfunction. Moderately dilated RV with moderate systolic dysfunction. The left atrium is moderately enlarged. Mild (1+) mitral valve insufficiency. Mild to moderate (1-2+) tricuspid valve insufficiency. Right ventricular systolic pressure estimated to be 50 mmHg. Ordering Physician: Paresh Brunson Referring Physician: Panda Littlejohn Performed By: Ghazal Newman, PHILLYCS, RVT Lung Scan-VQ NM 08/14/24 08:24 IMPRESSION: NORMAL V/Q SCAN. Reading Location: [place] [address] Rhythm Strip Rhythm Strip: Sinus Rhythm Physical Exam Narrative GENERAL: Patient appears ill looking HEENT: Atraumatic; normocephalic EYES; Anicteric, Normal Conjunctiva NECK; supple, normal thyroid, RESPIRATORY: Diminished to auscultation with bilateral rhonchi and wheezes CARDIOVASCULAR: Regular S1 S2, tachycardic GI: soft, normoactive bowel sounds, : No Renal angle tenderness; EXTREMITIES: edema, no clubbing, MUSCULOSKELETAL: no muscle wasting NEURO: Awake; no lateralizing signs. SKIN: No Rash PSYCH; Flat affect Assessment & Plan Assessment/Plan (1) Septic shock: PLAN: Plan Patient is a 74-year-old lady resident [facility] who was broughtto the emergency department with shortness of breath. She was reported to have vomited and route with concern for aspiration chest x-ray obtained on admission demonstrated bilateral pulmonary venous congestion. An assessment of acute hypoxic respiratory failure was made patient started on BiPAP admitted to the intensive care unit for further management 1. Acute hypoxic respiratory failure ? Multifactorial including bilateral pulmonary venous congestion, aspiration pneumonia patient was placed on noninvasive ventilation started on broad- spectrum antibiotic therapy admitted to the intensive care unit with consult placed to supervising film or videotape editor 2. Septic shock ? Secondary to a combination of acute cystitis as well as recent influenza A infection with suspected bacterial pneumonia. Patient was started on broad- spectrum antibiotic therapy after cultures havebeen initiated. Patient was notresuscitated with IV fluids per protocol given concern for fluid overload status ? 08/15/2024 patient blood pressure has stabilized. Urine cultures positive for Streptococcus agalactiae patient remains on appropriate antibiotic therapy 3. Acute cystitis ? With Streptococcus agalactiae management as discussed above 4. Acute congestive heart failure?unspecified ? Patient management noninvasive ventilation BiPAP Lasix was held off given concern for relatively low blood pressure. Serial cardiac enzymes and echo ordered and cardiology consulted by admitting physician ? 08/15/2024 patient seen in consultation by cardiology notes and recommendations reviewed. 2D echo obtained did show Mild concentric left ventricular hypertrophy. The left ventricular ejection fraction is 60 %. Stage 1 diastolic dysfunction. Moderately dilated RV with moderate systolic dysfunction. The left atrium is moderately enlarged. Mild (1+) mitral valve insufficiency. Mild to moderate (1-2+) tricuspid valve insufficiency. Right ventricular systolic pressure estimated to be 50 mmHg. 5. Elevated troponin ? Suspected to be secondary to demand ischemia from above echo has been ordered subsequent serial cardiac enzymes ordered 6. Elevated D-dimer ? Patient was started on heparin CTA was not ordered given patient acute kidney injury most show patient has allergy to dye plan is for patient to undergo evaluation VQ scan as well as lower extremity duplex ? 08/15/2024 patient bilateral venous duplex as well as VQ scan came back unremarkable systemic anticoagulation with heparin discontinued 7. Acute kidney injury ? Creatinine from 06/04/2024 was 0.82 creatinine on admission was 1.48 creatinine did bump up to 1.55. Patient AC suspected secondary to ischemic ATN 8. Anemia ? Secondary to chronic disorder monitoring H&H and transfuse if patient becomes symptomatic or hemoglobin falls below 7 9. Hypothyroidism ? Patient is on levothyroxine home dose continued 10. Essential hypertension ? Patient is on losartan as well as HCTZ held given relatively low blood pressure as well as impaired kidney function 11. GERD ? Patient is on PPI 12. Schizophrenia ? Plan is to continue patient antipsychotic medications 13. Seizure disorder -controlled on phenobarbital plan is to resume following med rec 14. COPD/asthma ? Bronchodilator treatment as needed 15. Dyslipidemia ?Patient is on statin therapy, continued at home dose 16 . DVT prophylaxis ? Patient is on heparin Time spent in the patient's overall evaluation,decision-making process, review of diagnostic data, adjustment of management, discussion with other providers, nursing nursing and ancillary staff involved in patient's care documentation, 50Minutes Charges/Coding Visit Charges Inpatient E&M: 61295 Subs Hosp L3 08/15/24 0858 Cosigner Signature (if applicable): CC: ~ Signed [facility]03-08-2025 Consult note [facility] Medical Records Department [address] [place] [address] Pharmacokinetic/Renal -Consult 08/15/24 0733 MR#: [id number] Acct: [id number] Name: ADRIENNE MORRISON Rep #:[id number] : 1950 74 From: Benjamin stewart PCP: Dr. Panda Littlejohn MD Status:ADM IN Location: [place] [address]-1 Consult Antibiotic Management Pharmacy has been consulted to manage selected antibiotic: Vancomycin Type of Intervention Type of Consult: Follow-up Prior Doses of Antibiotics Prior Doses of Antibiotics Received/Current Regimen: CURRENT DOSE IS 1000MG IV Q12H Labs Labs: Sodium 140 mmol/L (133-145) 08/14/24 02:55 Potassium 4.5 mmol/L (3.3-5.1) 08/14/24 02:55 Chloride 101 mmol/L (98-108) 08/14/24 02:55 Carbon Dioxide 22.8 mmol/L (21.0-32.0) 08/14/24 02:55 Anion Gap 16 (5-15) H 08/14/24 02:55 BUN 33 mg/dL (4-19) H 08/14/24 02:55 Creatinine 1.55 mg/dL (0.70-1.20) H 08/14/24 02:55 Est GFR (MDRD) Non-Af 35 (>60) L 08/14/24 02:55 BUN/Creatinine Ratio 21.5 RATIO (10-20) H 08/14/24 02:55 Glucose 114 mg/dL (70-99) H 08/14/24 02:55 Vancomycin Trough 19.2 ug/mL (5.0-15.0) H 08/15/24 06:32 Microbiology Microbiology: Microbiology 08/13/24 16:10 Urine, Catheterized Urine Culture - Final Streptococcus agalactiae (B) 08/13/24 13:35 Mucosa - Nasopharyngeal Respiratory Panel (PCR) - Final 08/14/24 08:45 Sputum, Expectorated/Coughed Gram Stain - Final 08/13/24 Unknown Mucosa - Nasopharyngeal SARS-CoV-2, Influenza & RSV (PCR) -Final 08/13/24 22:01 Nasal Secretion MRSA (PCR) - Final 08/13/24 22:01 Urine Catheter - Catheter Legionella Antigen - Final 08/13/24 22:01 Urine Catheter - Catheter Streptococcus pneumoniae Antigen (M- Final Dosing Weight Weight used for dosin.5 kg Estimated Creatinine Clearance Estimated Creatinine Clearance: 44 ml/min Goal Trough Goal Trough: 15-20 mcg/mL Pharmacy Plan for Drug Dosing Pharmacy Plan for Drug Dosing: The vanc trough drawn at 06:32 today (approx 13 hours after the previous dose) was 19.2 mcg/ml. This would have been even higher closer to 20 if drawn at the 11.5 to 12 hour kavita instead of 13 hours.Therefore, since it is already hovering around the top of the goal range after only a few doses, will decreasedose to 750mg IV q12h. Check another trough before the 4th new dose. Pharmacy Service will continue to monitor and adjust dosing as required. Follow-Up Labs Follow-Up Labs: Trough: Vancomycin Date/Time Labs Ordered Labs to be done on [date and time ordered]: 08/16/24 20:30 08/15/24 0738 erg> Date _ Benjamin Vaz 08/15/24 0811 > Cosigner Signature (if applicable): Date Lc Head MD CC: ~ Signed [facility]03-07-2025 Progress note Author Teddy Saldana [facility] Note Date/Time August 14, 2024 11:2 0am [facility] Medical Records Department [address] [place] [address] Progress Note - Mail Processing Associate 08/14/2446 MR#: [id number] Acct: [id number] Name: ADRIENNE MORRISON Rep #:[id number] : 1950 74 From: Teddy Saldana DO PCP: Dr. Panda Littlejohn MD Status:ADM IN Location: ICU ICU03-1 Assessment & Plan Assessment/Plan (1) Sepsis: PLAN: Plan RECOMMENDATIONS: 1. Wean supplemental oxygen to maintain saturations at or above 90%. 2. Continue scheduled bronchodilators. 3. Empiric antimicrobials. 4. Encourage incentive spirometer use and mobilize patient as tolerated. 5. The patient is medically stable for transfer out of the intensive care unit. 6. Will sign off from a critical care perspective. IMPRESSIONS: 1. Hypotension Appears to be secondary to intravascular volume depletion, as the patient is hemodynamically stable at the present time, after having received IV fluid resuscitation. She never required vasopressor support. She does have a recent diagnosis of influenza A and has been maintained on antimicrobials for suspectedaspiration pneumonia and UTI. 2. Shortness of breath and hypoxemia Clinical concern for possible CHF and aspiration pneumonia as precipitating etiology. Antimicrobials have been initiated. The patient will be continued onsupplemental oxygen to maintain saturations at or above 90%. Maintain aspiration precautions. Continue bronchodilator therapy as ordered. 3. NSTEMI Most likely secondary to demand ischemia in the setting of numbers 1 and 2. Echocardiogram revealed intact systolic function. Cardiology is following to assist with medical management. 4. History of mild intermittent asthma/obstructive sleep apnea/diabetes mellitus/history of schizophrenia Complicates care, management, recovery and prognosis. Continue supportive measures as noted above. This note was generated with [employer] dictation software. It may contain incorrectwords, spelling, and punctuation that were not noted in checking the note beforesigning. Subjective Subjective The patient was seen and examined at the bedside this morning. Events from the last 24 hours have been reviewed. The patient is currently afebrile, hemodynamically stable and maintaining appropriate oxygen saturations on 4 L/minnasal cannula. The patient is currently documented to be overall net +3.4 L forthe hospitalization. White blood cell count is elevated at 13,000. Hemoglobin and platelet count are stable. Creatinine was noted to be 1.5. BNP is elevatedat 3934. Objective Data Objective Data The patient's most recent lab work, culture data and imaging studies have all been personally reviewed. Surface echocardiogram demonstrated normal LV size with mild concentric LVH and an ejection fraction of 60%. Stage I diastolic dysfunction was noted. Right ventricular systolic pressure was estimated to be 50 mmHg. COVID, influenza and RSV PCR's were negative. Strep and urine Legionella antigens were negative. Blood, urine and sputum cultures are pending. Vital Signs: Vital Signs Temp Pulse Resp BP Pulse Ox O2 Del Method O2 Flow Rate 99.3 F H 75 14 123/80 H 95 Bi-pap 15 08/14/24 04:00 08/14/24 07:00 08/14/24 07:00 08/14/24 07:00 08/14/24 07:00 08/14/24 07:00 08/13/24 16:38 FiO2 40 08/14/24 04:46 Oxygen Flow Rate (L/min) 15 Oxygen Delivery Method Bi-pap Weight: 152 lb 12.485 oz Body Mass Index (BMI) 27.9 Intake & Output: Intake and Output for Last 24 Hours 08/12/24 08/13/24 08/14/24 23:59 23:59 23:59 Intake Total 3803.92 / 3803.92 410.4 / 410.4 Output Total 600 / 600 Balance 3803.92 / 3653.92 -189.6 / -189.6 Lab / Micro Data Attestation: I reviewed the patient's lab results. 08/14/24 02:55 08/14/24 02:55 Labs: Laboratory Results - last 24 hr 08/13/24 15:50: WBC 15.0 H, RBC 3.70 L, Hgb 11.9 L, Hct 36.2 L, MCV 97.8, MCH 32.2 H, MCHC 32.9, RDW Std Deviation 56.1 H, RDW Coeff of Piedad 15.8 H, Plt Count 188, MPV 10.5, Immature Gran % (Auto) 0.300, Neut % (Auto) 90.8 H, Lymph % (Auto) 3.6 L, [place] % (Auto) 5.2, Eos % (Auto) 0.0, Baso % (Auto) 0.1, Absolute Neuts (auto) 13.6 H, Absolute Lymphs (auto) 0.54 L, Nucleated RBC % 0.1, PT 14.8, INR 1.1, APTT 40.2 H, Sodium 138, Potassium 4.3, Chloride 98, Carbon Dioxide 23.7, Anion Gap 17 H, BUN 29 H, Creatinine 1.48 H, Estim Creat Clear Calc 45.10 L, Est GFR (MDRD) Non-Af 37 L, BUN/Creatinine Ratio 19.5, Glucose 149H, Lactic Acid 3.1 H*, Calcium 9.2, Phosphorus 3.3, Magnesium 1.7, Total Bilirubin 0.27, AST 27, ALT 17, Alkaline Phosphatase 130 H, Troponin T High [id number] H*, NT pro BNP II 3099 H, Total Protein 7.4, Albumin 3.9, Globulin 3.5, Albumin/Globulin Ratio 1.1 08/13/24 16:10: Urine Color Yellow, Urine Clarity Sl. Cloudy, Urine pH 6.0, Ur Specific [place] 1.015, Urine Protein 30 H, Urine Glucose (UA) Normal, Urine Ketones Negative, Urine Occult Blood 50 H, Urine Nitrite Negative, Urine Bilirubin Negative, Urine Urobilinogen Normal, Ur Leukocyte Esterase 500 H, Urine RBC 0-5 SEEN, Urine WBC 50-100 SEEN, Ur Squamous Epith Cells 0-5 SEEN, Urine Bacteria 3+, Urine Mucus 0 SEEN 08/13/24 19:12: Troponin T Hi Sens 2 Hr 427 H* 08/13/24 22:01: Troponin T Hi Sens 4Hr 467 H* 08/13/24 23:07: D-Dimer Quant (PE/DVT) 1.43 H*, Lactic Acid 1.8 08/14/24 02:55: WBC 12.8 H, RBC 3.20 L, Hgb 10.2 L, Hct 31.8 L, MCV 99.4 H, MCH 31.9, MCHC 32.1, RDW Std Deviation 58.2 H, RDW Coeff of Piedad 15.9 H, Plt Count 145 L, MPV 10.6, Immature Gran % (Auto) 0.500, Neut % (Auto) 88.0 H, Lymph % (Auto) 5.5 L, [place] % (Auto) 5.6, Eos % (Auto) 0.2, Baso % (Auto) 0.2, Absolute Neuts (auto) 11.3 H, Absolute Lymphs (auto) 0.70 L, Nucleated RBC % 0, APTT > 200.0 H*, Sodium 140, Potassium 4.5, Chloride 101, Carbon Dioxide 22.8, Anion Gap 16 H, BUN 33 H, Creatinine 1.55 H, Estim Creat Clear Calc 43.56 L, Est GFR (MDRD) Non-Af 35 L, BUN/Creatinine Ratio 21.5 H, Glucose 114 H, Calcium 8.4, Total Bilirubin < 0.15, AST 38 H, ALT 22, Alkaline Phosphatase 109 H, Total Protein 7.0, Albumin 3.7, Globulin 3.3, Albumin/Globulin Ratio 1.1, Triglycerides 38, Cholesterol 183, LDL Cholesterol, Calc 77, VLDL Cholesterol 8,HDL Cholesterol 99, Cholesterol/HDL Ratio 1.85, TSH 1.240 Micro: Microbiology 08/13/24 Unknown Mucosa - Nasopharyngeal SARS-CoV-2, Influenza & RSV (PCR) - Final 08/13/24 22:01 Nasal Secretion MRSA (PCR) - Final 08/13/24 22:01 Urine Catheter - Catheter Legionella Antigen - Final 08/13/24 22:01 Urine Catheter - Catheter Streptococcus pneumoniae Antigen (M- Final ABG Data ABG results: ABG 08/13/24 19:53 Specimen Type ART Sample Site L Radial pH 7.32 L Bicarbonate Actual 25.7 Total CO2 27 Base Excess -1 O2 Saturation 97 O2 % 70.0 ABG pCO2 50.4 H ABG pO2 98 Tera Test Positive O2 Delivery Device BiPAP Vent Mode Not entered POC PEEP 9 Radiography Diagnostic Testing: Radiology Impression Chest X-Ray 08/13/24 16:35 IMPRESSION: Suspicion of bilateral pulmonary venous congestion. Reading Location: [place] [address] Physical Exam Const alert and no apparent distress Constitutional Narrative: Morbidly obese. Sitting comfortably in bed. General Appearance: cooperative HEENT normocephalic and head/scalp atraumatic Eyes PERRL, EOMs intact bilaterally and conjunctivae normal Neck supple General: trachea midline Chest inspection of chest normal Resp normal respiratory effort Auscultation: diminished lung sounds; Negative for rales, rhonchi or wheezes Cardio regular rate and regular rhythm GI normal to inspection, nondistended, normoactive bowel sounds Extremity General Extremity: edema; Negative for clubbing Skin no rashes or lesions noted Neuro CN's II-XII intact bilaterally and no focal motor deficits Psych Mood & Affect: flat affect Charges/Coding Visit Charges Inpatient E&M: 72235 Subs Hosp L2 08/14/24 1220 <Electronically signed by Teddy Saldana DO> Cosigner Signature (if applicable): CC: ~ Signed [facility] Work Phone: [phone] Consult note Author Rubina Saini [facility] Note Date/Time August 14, 2024 10:0 8am [facility] Medical Records Department [address] [place] [address] Consultation - Cardiology 08/14/24 1100 MR#: [id number] Acct: [id number] Name: ADRIENNE MORRISON Rep #:[id number] : 1950 74 From: Rubina Saini MD PCP: Dr. Panda Littlejohn MD Status:ADM IN Location: ICU ICU03-1 Assessment & Plan Assessment/Plan (1) NSTEMI (non-ST elevated myocardial infarction): PLAN: Most likely type II with demand type ischemia. Check echocardiogram. Continue aspirin Plavix. DC heparin infusion. (2) Congestive heart failure: PLAN: No prior history of heart failure. Will check echocardiogram. (3) Septic shock: PLAN: As per supervising film or videotape editor. (4) UTI (urinary tract infection): PLAN: On antibiotics. (5) Super obesity: PLAN: Lose weight. HPI Consult Data Date of Consult: 08/14/24 HPI Narrative HPI Narrative: This lady presented to the hospital with complaints of weakness, fatigue, fever and nausea/vomiting. Possible aspiration with 1 episode of vomiting. Denied any chest pains. Some shortness of breath. Per patient, she has been having flulike symptoms for the past 4 to 5 days. Patient's initial workup suggested complicated UTI with sepsis, acute hypoxic respiratory failure secondary to possible viral illness and septic shock. As part of her workup, troponin were also checked. These were elevated. Subsequently we have been consulted for cardiac evaluation and management. Patient denies any history of heart disease. As noted above, denies any chest pains. No history of angina. [facility] Medical History Epilepsy Hammer toes of both feet Cerebrovascular disease Age related cataract Wears glasses Wears hearing aid Rash Walker as ambulation aid Easy bruising History of diverticulitis Gastric reflux Non-smoker Shortness of breath on exertion Vericose veins History of CVA (cerebrovascular accident) Seizure disorder Thyroid disorder Rheumatoid arthritis Diverticulitis Sleep apnea COPD (chronic obstructive pulmonary disease) Diabetes mellitus type 2 in obese Benign essential hypertension Convulsion Osteoarthritis Hypothyroid TIA (transient ischemic attack) Hypercholesterolemia Anemia in chronic illness Allergic rhinitis Glaucoma Morbid obesity Peripheral venous insufficiency GERD (gastroesophageal reflux disease) Asthma Schizophrenia Depression Anxiety disorder Hyperlipidemia Hypertension Home Medications ?Medication ?Instructions ?Recorded ?Last Taken ?Type clopidogrel 75 mg tablet 75 mg PO DAILY 03/28/1307/03 History hydrochlorothiazide 25 mg tablet 25 mg PO DAILY ##0 03/10/24 History metoprolol succinate 100 mg 100 mg PO DAILY 03/28/13 0 12/19/20 History tablet,extended release 24 hr paliperidone 6 mg tablet,extended 6 mg PO QHS 01/31/17 03/10/24 History release 24 hr montelukast 10 mg tablet 10 mg PO QHS #90 tabs 03/10/24 Rx albuterol sulfate 2.5 mg/3 mL 2.5 mg inhalation DAILY PRN 11/27/23 Unknown History (0.083 %) solution for nebulization shortness of breat h or wheezing atorvastatin 20 mg tablet 20 mg PO QHS 11/27/23 History clonazepam 0.5 mg tablet 0.5 mg PO BID 11/27/2303/10 History fluticasone propionate 220 2 inh inhalation BID 03/10/24 History mcg/actuation HFA aerosol inhaler latanoprost 0.005 % eye drops 1 drp ophthalmic (eye) Q HS 11/27/23 03/10/24 History losartan 50 mg tablet 50 mg PO DAILY 11/27/2307/03 History phenobarbital 60 mg tablet 120 mg PO 0800 11/27/23 Unk nown History phenobarbital 60 mg tablet 180 mg PO SUMOWETHSA seizur es 11/27/23 Unknown History polyethylene glycol 3350 17 17 g PO DAILY PRN CONSTIPA TION 11/27/23 03/10/24 History gram/dose oral powder (Miralax) propylene glycol 1 %-glycerin 0.3 2 drp ophthalmic (ey e) Q4H PRN dry 11/27/23 Unknown History % eye drops (Artificial Tears eye(s) (glycerin-peg)) acetaminophen 500 mg tablet 500 mg PO Q6H PRN pain 08/0303/10/24 History cholecalciferol (vitamin D3) 25 50 mcg PO DAILY Unknown History mcg (1,000 unit) tablet levothyroxine 200 mcg tablet 200 mcg PO QHS 03/11/24 1 History nifedipine 90 mg tablet,extended 90 mg PO DAILY 03/10/24 History release phenobarbital 60 mg tablet 60 mg PO TUFR seizures 08/0303/10/24 History escitalopram oxalate 10 mg tablet 10 mg PO DAILY #0 ta bs 03/16/24 Unknown Rx albuterol sulfate 90 mcg/actuation 2 puff inhalation Q 4H PRN 08/13/24 Unknown History aerosol inhaler shortness of breath or wheez ing ondansetron 4 mg disintegrating 4 mg PO Q4H PRN nausea and vomiting 08/13/24 Unknown History tablet pantoprazole 40 mg tablet,delayed 40 mg PO BID 5 Unknown History release (Protonix) quetiapine 100 mg tablet 100 mg PO QHS 08/13/24 Unkno wn History triamcinolone acetonide 0.1 % 1 applic topical Q8 PRN itching 08/13/24 Unknown History topical cream Allergy/AdvReac Type Severity Reaction Status Date / Time amoxicillin Allergy NEEDS Verified 03/11/24 08:36 FOLLOW-UP codeine Allergy Shortness Verified 03/11/24 08:36 of breath cyclobenzaprine (From Allergy NEEDS Verified 03/11/24 08:36 Flexeril) FOLLOW-UP dextromethorphan HBr (From Allergy Shortness Verified 03/11/24 08:36 Tylenol Cold Multi-Symptom) of breath diazepam (From Valium) Allergy Shortness Verified 03/11/24 08:36 of breath fluticasone (From Advair Allergy NEEDS Verified 03/11/24 08:36 Diskus) FOLLOW-UP Food Allergies: Uncoded Allergy Shortness Verified 03/11/24 08:36 of breath guaifenesin (From Tylenol Allergy Shortness Verified 03/11/24 08:36 Cold Multi-Symptom) of breath hydrocodone bitartrate (From Allergy Shortness Verified 03/11/24 08:36 Vicodin) of breath iodine Allergy Anaphylaxis Verified 03/11/24 08:36 Latex, Natural Rubber Allergy Shortness Verified 03/11/24 08:36 of breath morphine Allergy Shortness Verified 03/11/24 08:36 of breath NSAIDS (Non-Steroidal Allergy Shortness Verified 03/11/24 08:36 Anti-Inflamma of breath oxaprozin (From Daypro) Allergy NEEDS Verified 03/11/24 08:36 FOLLOW-UP oxycodone Allergy NEEDS Verified 03/11/24 08:36 FOLLOW-UP phenylephrine HCl (From Allergy Shortness Verified 03/11/24 08:36 Tylenol Cold Multi-Symptom) of breath phenytoin (From Dilantin) Allergy NEEDS Verified 03/11/24 08:36 FOLLOW-UP phenytoin sodium (From Allergy Shortness Verified 03/11/24 08:36 Dilantin) of breath phenytoin sodium extended Allergy Shortness Verified 03/11/24 08:36 (From Dilantin) of breath povidone-iodine (From Allergy BLISTERS Verified 03/11/24 08:36 Betadine) pseudoephedrine HCl (From Allergy Shortness Verified 03/11/24 08:36 Tylenol Cold Multi-Symptom) of breath salmeterol (From Advair Allergy NEEDS Verified 03/11/24 08:36 Diskus) FOLLOW-UP shellfish derived Allergy NEEDS Verified 03/11/24 08:36 FOLLOW-UP soap (From Betadine) Allergy BLISTERS Verified 03/11/24 08:36 tetracycline Allergy NEEDS Verified 03/11/24 08:36 FOLLOW-UP tositumomab iodine-131 Allergy NEEDS Verified 03/11/24 08:36 FOLLOW-UP muscle relaxers Allergy Shortness Uncoded 05/22/23 11:04 of breath Family History Mother CVA (cerebral vascular accident) Cancer Depression Diabetes Emphysema lung Hypertension Arthritis Father CVA (cerebral vascular accident) Cancer Depression Diabetes Emphysema lung Hypertension Arthritis Surgical History History of cholecystectomy History of tonsillectomy History of total hysterectomy History of total knee replacement History of bilateral tympanoplasty History of tubal ligation History of D&C Social History household members: none housing: prison Smoking Status: Never smoker second hand exposure: Yes alcohol intake: never substance use type: does not use what type of physical activity do you participate in: walking do you feel safe at home: Yes Physical Exam Narrative Morbidly obese. Heart sounds 1 and 2 noted. Chest examination with decreased breath sounds bilateral bases. Alert oriented x 3. No ankle edema. Risk Stratification Risk Stratification Applicable: No Objective Data Vital Signs: Vital Signs Temp Pulse Resp BP Pulse Ox O2 Del Method O2 Flow Rate 98.9 F 84 23 H 131/79 H 91 Nasal Cannula 4 08/14/24 09:00 08/14/24 09:00 08/14/24 09:00 08/14/24 09:00 08/14/24 09:00 08/14/24 09:00 08/14/24 09:00 FiO2 40 08/14/24 04:46 Oxygen Flow Rate (L/min) 4 Oxygen Delivery Method Nasal Cannula Weight: 319 lb 3.669 oz Body Mass Index (BMI) 27.9 Intake & Output: Intake and Output for Last 24 Hours 08/12/24 08/13/24 08/14/24 23:59 23:59 23:59 Intake Total 3803.92 / 3803.92 510.4 / 510.4 Output Total 600 / 600 Balance 3803.92 / 3653.92 -89.6 / -89.6 Lab / Micro Data Attestation: I reviewed the patient's lab results. 08/14/24 02:55 08/14/24 02:55 Labs: Laboratory Results - last 24 hr 08/13/24 15:50: WBC 15.0 H, RBC 3.70 L, Hgb 11.9 L, Hct 36.2 L, MCV 97.8, MCH 32.2 H, MCHC 32.9, RDW Std Deviation 56.1 H, RDW Coeff of [place] 15.8 H, Plt Count 188, MPV 10.5, Immature Gran % (Auto) 0.300, Neut % (Auto) 90.8 H, Lymph % (Auto) 3.6 L, [place] % (Auto) 5.2, Eos % (Auto) 0.0, Baso % (Auto) 0.1, Absolute Neuts (auto) 13.6 H, Absolute Lymphs (auto) 0.54 L, Nucleated RBC % 0.1, PT 14.8, INR 1.1, APTT 40.2 H, Sodium 138, Potassium 4.3, Chloride 98, Carbon Dioxide 23.7, Anion Gap 17 H, BUN 29 H, Creatinine 1.48 H, Estim Creat Clear Calc 45.10 L, Est GFR (MDRD) Non-Af 37 L, BUN/Creatinine Ratio 19.5, Glucose 149H, Lactic Acid 3.1 H*, Calcium 9.2, Phosphorus 3.3, Magnesium 1.7, Total Bilirubin 0.27, AST 27, ALT 17, Alkaline Phosphatase 130 H, Troponin T High [id number] H*, NT pro BNP II 3099 H, Total Protein 7.4, Albumin 3.9, Globulin 3.5, Albumin/Globulin Ratio 1.1 08/13/24 16:10: Urine Color Yellow, Urine Clarity Sl. Cloudy, Urine pH 6.0, Ur Specific [place] 1.015, Urine Protein 30 H, Urine Glucose (UA) Normal, Urine Ketones Negative, Urine Occult Blood 50 H, Urine Nitrite Negative, Urine Bilirubin Negative, Urine Urobilinogen Normal, Ur Leukocyte Esterase 500 H, Urine RBC 0-5 SEEN, Urine WBC 50-100 SEEN, Ur Squamous Epith Cells 0-5 SEEN, Urine Bacteria 3+, Urine Mucus 0 SEEN 08/13/24 19:12: Troponin T Hi Sens 2 Hr 427 H* 08/13/24 22:01: Troponin T Hi Sens 4Hr 467 H* 08/13/24 23:07: D-Dimer Quant (PE/DVT) 1.43 H*, Lactic Acid 1.8 08/14/24 02:55: WBC 12.8 H, RBC 3.20 L, Hgb 10.2 L, Hct 31.8 L, MCV 99.4 H, MCH 31.9, MCHC 32.1, RDW Std Deviation 58.2 H, RDW Coeff of [place] 15.9 H, Plt Count 145 L, MPV 10.6, Immature Gran % (Auto) 0.500, Neut % (Auto) 88.0 H, Lymph % (Auto) 5.5 L, [place] % (Auto) 5.6, Eos % (Auto) 0.2, Baso % (Auto) 0.2, Absolute Neuts (auto) 11.3 H, Absolute Lymphs (auto) 0.70 L, Nucleated RBC % 0, APTT > 200.0 H*, Sodium 140, Potassium 4.5, Chloride 101, Carbon Dioxide 22.8, Anion Gap 16 H, BUN 33 H, Creatinine 1.55 H, Estim Creat Clear Calc 43.56 L, Est GFR (MDRD) Non-Af 35 L, BUN/Creatinine Ratio 21.5 H, Glucose 114 H, Calcium 8.4, Total Bilirubin < 0.15, AST 38 H, ALT 22, Alkaline Phosphatase 109 H, Total Protein 7.0, Albumin 3.7, Globulin 3.3, Albumin/Globulin Ratio 1.1, Triglycerides 38, Cholesterol 183, LDL Cholesterol, Calc 77, VLDL Cholesterol 8,HDL Cholesterol 99, Cholesterol/HDL Ratio 1.85, TSH 1.240 08/14/24 08:45: NT pro BNP II 3934 H, Procalcitonin 0.39 H Micro: Microbiology 08/13/24 Unknown Mucosa - Nasopharyngeal SARS-CoV-2, Influenza & RSV (PCR) - Final 08/13/24 22:01 Nasal Secretion MRSA (PCR) - Final 08/13/24 22:01 Urine Catheter - Catheter Legionella Antigen - Final 08/13/24 22:01 Urine Catheter - Catheter Streptococcus pneumoniae Antigen (M- Final ABG Data ABG results: ABG 08/13/24 19:53 Specimen Type ART Sample Site L Radial pH 7.32 L Bicarbonate Actual 25.7 Total CO2 27 Base Excess -1 O2 Saturation 97 O2 % 70.0 ABG pCO2 50.4 H ABG pO2 98 Tera Test Positive O2 Delivery Device BiPAP Vent Mode Not entered POC PEEP 9 Rhythm Strip Rhythm Strip: Sinus Rhythm Cardiology Labs/Tests 08/13/24 15:50: WBC 15.0 H, RBC 3.70 L, Hgb 11.9 L, Hct 36.2 L, MCV 97.8, MCH 32.2 H, MCHC 32.9, Plt Count 188, MPV 10.5, Immature Gran % (Auto) 0.300, Neut %(Auto) 90.8 H, Lymph % (Auto) 3.6 L, [place] % (Auto) 5.2, Eos % (Auto) 0.0, Baso %(Auto) 0.1, Absolute Neuts (auto) 13.6 H, Nucleated RBC % 0.1, PT 14.8, INR 1.1,APTT 40.2 H, Sodium 138, Potassium 4.3, Chloride 98, Carbon Dioxide 23.7, Anion Gap 17 H, BUN 29 H, Creatinine 1.48 H, Est GFR (MDRD) Non-Af 37 L, BUN/Creatinine Ratio 19.5, Glucose 149 H, Lactic Acid 3.1 H*, Calcium 9.2, Phosphorus 3.3, Magnesium 1.7, Total Bilirubin 0.27 08/13/24 16:10: Urine Color Yellow, Urine Clarity Sl. Cloudy, Urine pH 6.0, Ur Specific [place] 1.015, Urine Protein 30 H, Urine Glucose (UA) Normal, Urine Ketones Negative, Urine Occult Blood 50 H, Urine Nitrite Negative, Urine Bilirubin Negative, Urine Urobilinogen Normal, Ur Leukocyte Esterase 500 H, Urine RBC 0-5 SEEN, Urine WBC 50-100 SEEN 08/13/24 19:53: pH 7.32 L, Bicarbonate Actual 25.7, Base Excess -1, O2 Saturation 97, ABG pCO2 50.4 H, ABG pO2 98, Tera Test Positive 08/13/24 23:07: D-Dimer Quant (PE/DVT) 1.43 H*, Lactic Acid 1.8 08/14/24 02:55: WBC 12.8 H, RBC 3.20 L, Hgb 10.2 L, Hct 31.8 L, MCV 99.4 H, MCH 31.9, MCHC 32.1, Plt Count 145 L, MPV 10.6, Immature Gran % (Auto) 0.500, Neut %(Auto) 88.0 H, Lymph % (Auto) 5.5 L, [place] % (Auto) 5.6, Eos % (Auto) 0.2, Baso %(Auto) 0.2, Absolute Neuts (auto) 11.3 H, Nucleated RBC % 0, APTT > 200.0 H*, Sodium 140, Potassium 4.5, Chloride 101, Carbon Dioxide 22.8, Anion Gap 16 H, BUN 33 H, Creatinine 1.55 H, Est GFR (MDRD) Non-Af 35 L, BUN/Creatinine Ratio 21.5 H, Glucose 114 H, Calcium 8.4, Total Bilirubin < 0.15, Triglycerides 38, Cholesterol 183, VLDL Cholesterol 8, HDL Cholesterol 99, Cholesterol/HDL Ratio 1.85 Rhythm: EKG: Normal sinus rhythm. Nonspecific T wave changes. ECHO: Stress Test: Cardiac Cath: PCI: CT Surgery: Holter monitor: EPS: PPM: CXR: Chest CT Scan: Radiography Diagnostic Testing: Radiology Impression Chest X-Ray 08/13/24 16:35 IMPRESSION: Suspicion of bilateral pulmonary venous congestion. Reading Location: [place] [address] 08/14/24 1108 <Electronically signed by Rubina Saini MD> Cosigner Signature (if applicable): CC: Dr. Panda Littlejohn MD~ Signed [facility] Work Phone: [phone] 478-575803-07-2025 Procedure note [facility] Speech Pathology [address] [place] [address] Modified Barium Swallow Study MR#: [id number] Acct: [id number] Name: ADRIENNE MORRISON Rep #:[id number] : 1950 74 From: Krissy Iraheta, [facility]-REVIEW NURSE Modified Barium Swallow Patient Information Study Date: 08/14/24 Study Time: 10:45 Direct Billable Minutes: 97 Total Minutes procedure & reportin Diagnosis: Dysphagia R13.10 Referring Physician: Lc Head Reason for Referral: Assess swallow function, assess aspiration risk, and determine recommendations for least restrictive diet textures & compensatory strategies to facilitate safepo intake. Medical History: PMH from Physician H&P: Morbid obesity, Seizure disorder/epilepsy, MARY, COPD/Asthma, Hx CVA, GERD, Hypothyroidism, Chronic anemia, HTN, HLD, Rheumatoid arthritis, Anxiety and Depression/Schizophrenia, CKD stage II Pt presented to [facility] ED 08/13/2024 due to fatigue/malaise with onset of nausea w/ emesis while lying down followed by onset of significant dyspnea, hypoxia. Pt had recent positive flu status (08/11/2024) prompting ED evaluation. Pt had been experiencing congestion, rhinorrhea, cough, fatigue. Work up inthe ED revealed hypotension, 80% on room air w/ improvement to 86% on 6L, then requiring BiPAP, CBCwith WBC 15. Pt admitted to ICU for subsequent management. Pt referred for ST consult due to concerns for aspiration PNA. BSE today revealed coughing w/ solids. Pt was recommended for soft and bite size textures / thin liquids and MBSS to further assess aspiration risk. Pt reported she has had increased difficulty swallowing in the past year and had a coughing spell w/ toast just prior to admission. She denies difficulty swallowing liquids. Hx of dysphagia therapy at [facility] from 03/13/2024-03/16/2024 during acute stay for encephalopathy, suspected sepsis, suspected GI bleed, and COVID-19. Pt was recommended Easy to Chew textures / Thin liquids w/ Direct supervision and feeding assistance w/ liquids d/t impulsivity. Current Diet Ordered: Soft and bite size textures / Thin liquids Dentition: Upper Dentures and Lower Dentures Mental Status: WNL (Able to follow commands for BSE and MBSS, hx of encephalopathy) Respiratory Status: Oxygenating on 4L/M nasal cannula Penetration-Aspiration Scale Penetration-Aspiration Scale: OBJECTIVE ASSESSMENT OF SWALLOW FUNCTION (QUANTITATIVE ? PER TRIAL): PENETRATION / ASPIRATION SCALE (BYERS): 1 = does not enter airway 2 = enters airway/above vocal folds/ejected 3 = enters airway/above vocal folds/not ejected 4 = enters airway/contacts vocal folds/ejected 5 = enters airway/contacts vocal folds/not ejected 6 = enters airway/below vocal folds/ejected 7 = enters airway/below vocal folds/not ejected despite effort 8 = enters airway/below vocal folds/no effort VIDEOFLOROSCOPIC SCALE SCORE (BYERS): Grade I = aspiration of material that has penetrated into the laryngeal vestibule, intact cough reflex Grade II = aspiration < 10 % of the bolus, intact cough reflex Grade III = aspiration of < 10 % of the bolus, reduced cough reflex or aspiration of > 10 % of the bolus, intact cough reflex Grade IV = aspiration of > 10 % of the bolus, reduced cough reflex Penetration-Aspiration Scale Score Thin Liquid via teaspoon: Result: 2= enter airway/above vocal folds/ejected Thin Liquid via teaspoon Trial 2: Result: 2= enter airway/above vocal folds/ejected Thin Liquid via large single sip: cup: Result: 2= enter airway/above vocal folds/ejected Gearhart Thick Liquid via large single sip: cup: Result: 2= enter airway/above vocal folds/ejected Pudding via teaspoon: Result: 1= does not enter airway Comment: Esophageal screen = complete clearance. 1/2 Cookie: Result: 1= does not enter airway Thin Liquid via single sip: straw: Result: 2= enter airway/above vocal folds/ejected Thin Liquid via sequential sips:straw: Result: 2= enter airway/above vocal folds/ejected Oral Phase Labial Seal: Interlabial escape, no progression to anterior lip Tongue Control During Bolus Hold: Posterior escape of less than half of bolus Bolus Preparation/Mastication: Timely and efficient chewing and mashing Bolus Transport/Lingual Motion: Delayed initiation of tongue motion Oral Residue: Residue collection on oral structures Pharyngeal Phase Initiation of Pharyngeal Swallow: Bolus head in pyriforms Soft Palate Elevation: Trace column of contrast/air between soft palate and pharyngeal wall Laryngeal Elevation: Comp. Superior move thyroid cart w/comp. apprx arytenoid cart-epig pet Anterior Hyoid Excursion: Partial anterior movement Epiglottic Movement: Complete inversion Laryngeal Vestibule Closure at Height of Swallow: Incomplete; narrow column of air/contrast in laryngeal vestibule (consistent laryngeal penetration during theswallow, fully ejecting after the swallow is complete) Pharyngeal Stripping Wave: Present - diminished Pharyngoesophageal Segment Opening: Parital distension and partial duration; parital obstruction offlow (trace retention in UES) Tongue Base Retraction: Narrow column of contrast between tongue base & post. pharyngeal wall Pharyngeal Residue: Collection of residue within or on pharyngeal structures Esophageal Phase Esophageal Clearance: Complete clearance Diagnosis/Impression Diagnosis: Mild oropharyngeal dysphagia R13.12 Impression: The oral phase is marked by... -Decreased bolus control w/ posterior loss of <1/2 of thin liquids to the pharynx prior to swallow onset. One trial spilled to the laryngeal vestibule prior to swallow onset, increasing risk for post prandial aspiration. -Delayed tongue motion for A-P transport. -Mild oral residue w/ sequential thin, which cleared w/ subsequent swallows. The pharyngeal phase is marked by... -Delayed swallow onset. -Decreased anterior hyoid excursion; however, good laryngeal vestibular closure.Consistent laryngeal penetration of liquids that fully ejected during the swallow. No aspiration observed; however, forall the above trials, this REVIEW NURSE cannot definitively rule out aspiration due to pt's body habitus. -Mild pharyngeal residue w/ cookie due to mildly decreased TB retraction and pharyngeal stripping wave. Recommendations Diet: Easy to Chew Textures (Moisten dry textures) and Thin Liquids Compensatory Strategies: Small Bites, Small Sips, Slow Rate, Alternate bites/solids and sips/liquids, Sitting upright and Remain sitting upright for 30minutes after PO intake Supervision: Distant Supervision Recommend Repeat Modified Barium Swallow: TBD Need for Skilled Speech Therapy Services: Yes Comment: -Train the patient in use of strategies to decrease risk for aspiration and reflux aspiration (hx of GERD). -Ongoing assessment of diet tolerance of recommended textures. -Train the patient in oropharyngeal exercise program to improve bolus control, swallow onset, and pharyngeal motility (lingual resistance, Clotilde, Effortful, Martine). Education Completed: 1. Described result of evaluation., 2. Pt understands evaluation & agrees with goals and treatment plan. and 7. Pt requires further education on strategies & risks. Status Active ST Patient: Active Contact Information [facility] Speech Therapy:: Krissy Rodriguez M.A. CCC-REVIEW NURSE? Speech-Language Pathologist?? [facility] [address] [place] [address]? [email or web address]?? [phone] 08/14/24 1302 Kori CCC-REVIEW NURSE> Date/Time Krissy Rodriguez M.A. CCC-REVIEW NURSE Co-Signature Required for all Medicare patients Date/Time Co-Signature CC: ~ [facility]03-07-2025 Progress note [facility] Medical Records Department [address] [place] [address] Progress Note - Mail Processing Associate 08/14/24 0746 MR#: [id number] Acct: [id number] Name: ADRIENNE MORRISON Rep #:[id number] : 1950 74 From: Teddy Saldana DO PCP: Dr. Panda Littlejohn MD Status:ADM IN Location: ICU ICU03-1 Assessment & Plan Assessment/Plan (1) Sepsis: PLAN: Plan RECOMMENDATIONS: 1. Wean supplemental oxygen to maintain saturations at or above 90%. 2. Continue scheduled bronchodilators. 3. Empiric antimicrobials. 4. Encourage incentive spirometer use and mobilize patient as tolerated. 5. The patient is medically stable for transfer out of the intensive care unit. 6. Will sign off from a critical care perspective. IMPRESSIONS: 1. Hypotension Appears to be secondary to intravascular volume depletion, as the patient is hemodynamically stableat the present time, after having received IV fluid resuscitation. She never required vasopressor support. She does have a recent diagnosis of influenza A and has been maintained on antimicrobials for suspectedaspiration pneumonia and UTI. 2. Shortness of breath and hypoxemia Clinical concern for possible CHF and aspiration pneumonia as precipitating etiology. Antimicrobials have been initiated. The patient will be continued onsupplemental oxygen to maintain saturations at or above 90%. Maintain aspiration precautions. Continue bronchodilator therapy as ordered. 3. NSTEMI Most likely secondary to demand ischemia in the setting of numbers 1 and 2. Echocardiogram revealedintact systolic function. Cardiology is following to assist with medical management. 4. History of mild intermittent asthma/obstructive sleep apnea/diabetes mellitus/history of schizophrenia Complicates care, management, recovery and prognosis. Continue supportive measures as noted above. This note was generated with [employer] dictation software. It may contain incorrectwords, spelling, and punctuation that were not noted in checking the note beforesigning. Subjective Subjective The patient was seen and examined at the bedside this morning. Events from the last 24 hours have been reviewed. The patient is currently afebrile, hemodynamically stable and maintaining appropriate oxygen saturations on 4 L/minnasal cannula. The patient is currently documented to be overall net +3.4 L forthe hospitalization. White blood cell count is elevated at 13,000. Hemoglobin and platelet count are stable. Creatinine was noted to be 1.5. BNP is elevatedat 3934. Objective Data Objective Data The patient's most recent lab work, culture data and imaging studies have all been personally reviewed. Surface echocardiogram demonstrated normal LV size with mild concentric LVH and an ejection fraction of 60%. Stage I diastolic dysfunction was noted. Right ventricular systolic pressure was estimated to be 50 mmHg. COVID, influenza and RSV PCR's were negative. Strep and urine Legionella antigens were negative. Blood, urine and sputum cultures are pending. Vital Signs: Vital Signs Temp Pulse Resp BP Pulse Ox O2 Del Method O2 Flow Rate 99.3 F H 75 14 123/80 H 95 Bi-pap 15 08/14/24 04:00 08/14/24 07:00 08/14/24 07:00 08/14/24 07:00 08/14/24 07:00 08/14/24 07:00 08/13/24 16:38 FiO2 40 08/14/24 04:46 Oxygen Flow Rate (L/min) 15 Oxygen Delivery Method Bi-pap Weight: 152 lb 12.485 oz Body Mass Index (BMI) 27.9 Intake & Output: Intake and Output for Last 24 Hours 08/12/24 08/13/24 08/14/24 23:59 23:59 23:59 Intake Total 3803.92 / 3803.92 410.4 / 410.4 Output Total 600 / 600 Balance 3803.92 / 3653.92 -189.6 / -189.6 Lab / Micro Data Attestation: I reviewed the patient's lab results. 08/14/24 02:55 08/14/24 02:55 Labs: Laboratory Results - last 24 hr 08/13/24 15:50: WBC 15.0 H, RBC 3.70 L, Hgb 11.9 L, Hct 36.2 L, MCV 97.8, MCH 32.2 H, MCHC 32.9, RDW Std Deviation 56.1 H, RDW Coeff of Piedad 15.8 H, Plt Count 188, MPV 10.5, Immature Gran % (Auto) 0.300, Neut % (Auto) 90.8 H, Lymph % (Auto) 3.6 L, [place] % (Auto) 5.2, Eos % (Auto) 0.0, Baso % (Auto) 0.1, Absolute Neuts (auto) 13.6 H, Absolute Lymphs (auto) 0.54 L, Nucleated RBC % 0.1, PT 14.8, INR 1.1, APTT 40.2 H, Sodium 138, Potassium 4.3, Chloride 98, Carbon Dioxide 23.7, Anion Gap 17 H, BUN 29H, Creatinine 1.48 H, Estim Creat Clear Calc 45.10 L, Est GFR (MDRD) Non-Af 37 L, BUN/Creatinine Ratio 19.5, Glucose 149H, Lactic Acid 3.1 H*, Calcium 9.2, Phosphorus 3.3, Magnesium 1.7, Total Bilirubin 0.27, AST 27, ALT 17, Alkaline Phosphatase 130 H, Troponin T High Einz388 H*, NT pro BNP II 3099H, Total Protein 7.4, Albumin 3.9, Globulin 3.5, Albumin/Globulin Ratio 1.1 03/06/25 16:10: Urine Color Yellow, Urine Clarity Sl. Cloudy, Urine pH 6.0, Ur Specific [place] 1.015, Urine Protein 30 H, Urine Glucose (UA) Normal, Urine Ketones Negative, Urine Occult Blood 50 H, Urine Nitrite Negative, Urine Bilirubin Negative, Urine Urobilinogen Normal, Ur Leukocyte Esterase 500 H, Urine RBC 0-5 SEEN, Urine WBC 50-100 SEEN, Ur Squamous Epith Cells 0-5 SEEN, Urine Bacteria 3+, Urine Mucus 0 SEEN 08/13/24 19:12: Troponin T Hi Sens 2 Hr 427 H* 08/13/24 22:01: Troponin T Hi Sens 4Hr 467 H* 08/13/24 23:07: D-Dimer Quant (PE/DVT) 1.43 H*, Lactic Acid 1.8 08/14/24 02:55: WBC 12.8 H, RBC 3.20 L, Hgb 10.2 L, Hct 31.8 L, MCV 99.4 H, MCH 31.9, MCHC 32.1, RDW Std Deviation 58.2 H, RDW Coeff of Piedad 15.9 H, Plt Count 145 L, MPV 10.6, Immature Gran % (Auto) 0.500, Neut % (Auto) 88.0 H, Lymph % (Auto) 5.5 L, [place] % (Auto) 5.6, Eos % (Auto) 0.2, Baso % (Auto)0.2, Absolute Neuts (auto) 11.3 H, Absolute Lymphs (auto) 0.70 L, Nucleated RBC % 0, APTT > 200.0 H*, Sodium 140, Potassium 4.5, Chloride 101, Carbon Dioxide 22.8, Anion Gap 16 H, BUN 33 H, Creatinine 1.55 H, Estim Creat Clear Calc 43.56 L, Est GFR (MDRD) Non-Af 35 L, BUN/Creatinine Ratio 21.5 H, Glucose 114 H, Calcium 8.4, Total Bilirubin < 0.15, AST 38 H, ALT 22, Alkaline Phosphatase 109 H, Total Protein 7.0, Albumin 3.7, Globulin 3.3, Albumin/Globulin Ratio 1.1, Triglycerides 38, Cholesterol 183, LDL Cholesterol, Calc 77, VLDL Cholesterol 8,HDL Cholesterol 99, Cholesterol/HDL Ratio 1.85, TSH 1.240 Micro: Microbiology 08/13/24 Unknown Mucosa - Nasopharyngeal SARS-CoV-2, Influenza & RSV (PCR) -Final 08/13/24 22:01 Nasal Secretion MRSA (PCR) - Final 08/13/24 22:01 Urine Catheter - Catheter Legionella Antigen - Final 08/13/24 22:01 Urine Catheter - Catheter Streptococcus pneumoniae Antigen (M- Final ABG Data ABG results: ABG 08/13/24 19:53 Specimen Type ART Sample Site L Radial pH 7.32 L Bicarbonate Actual 25.7 Total CO2 27 Base Excess -1 O2 Saturation 97 O2 % 70.0 ABG pCO2 50.4 H ABG pO2 98 Tera Test Positive O2 Delivery Device BiPAP Vent Mode Not entered POC PEEP 9 Radiography Diagnostic Testing: Radiology Impression Chest X-Ray 08/13/24 16:35 IMPRESSION: Suspicion of bilateral pulmonary venous congestion. Reading Location: [place] [address] Physical Exam Const alert and no apparent distress Constitutional Narrative: Morbidly obese. Sitting comfortably in bed. General Appearance: cooperative HEENT normocephalic and head/scalp atraumatic Eyes PERRL, EOMs intact bilaterally and conjunctivae normal Neck supple General: trachea midline Chest inspection of chest normal Resp normal respiratory effort Auscultation: diminished lung sounds; Negative for rales, rhonchi or wheezes Cardio regular rate and regular rhythm GI normal to inspection, nondistended, normoactive bowel sounds Extremity General Extremity: edema; Negative for clubbing Skin no rashes or lesions noted Neuro CN's II-XII intact bilaterally and no focal motor deficits Psych Mood & Affect: flat affect Charges/Coding Visit Charges Inpatient E&M: 23051 Subs Hosp L2 08/14/24 1220 Cosigner Signature (if applicable): CC: ~ Signed [facility]03-07-2025 Nuclear medicine Diagnostic study note [facility] Imaging Services [address] [place] [address] Lung Scan Vent/Perf MR#: [id number] Acct: [id number] Name: ADRIENNE MORRISON Rep #: [id number] : 1950 F 74 From: Jania Esquivel MD PCP: Dr. Panda Littlejohn MD Status: ADM IN Study:Lung Scan Vent/Perf Date of Exam: 08/14/24 Exam# [id number] Ordering Dr: Cong Head MD PROCEDURE: RADIONUCLIDE LUNG SCAN (VENTILATION AND PERFUSION) REASON FOR EXAM: COUGH. SHORTNESS OF BREATH. ELEVATED TROPONINS TECHNIQUE: Nuclear medicine V/Q scan using 6.0 mCi Tc-99m MAA intravenously for perfusion imaging and 51.6 mCiTc-99m DTPA aerosol for ventilation imaging. Anterior, posterior, right and left lateral, TREVINO, KYRGYZ, RPO,and LPO ventilationand perfusion images. COMPARISON: PA and Lateral chest dated 08/13/2024. FINDINGS: Ventilation images: No abnormal areas of hypoventilation are demonstrated. Perfusion images: No segmental or subsegmental perfusion defects are demonstrated. NM/Lung Scan Vent/Perf IMPRESSION: NORMAL V/Q SCAN. Reading Location: [place] [address] CC: Dr. Lc Head MD; Dr. Panda Littlejohn MD ~ Statistics Intern: Signed [facility]03-07-2025 Consult note [facility] Medical Records Department [address] [place] [address] Consultation - Cardiology 08/14/24 1100 MR#: [id number] Acct: [id number] Name: ADRIENNE MORRISON Rep #:[id number] : 1950 74 From: Rubina Saini MD PCP: Dr. Panda Littlejohn MD Status:ADM IN Location: ICU ICU03- Assessment & Plan Assessment/Plan (1) NSTEMI (non-ST elevated myocardial infarction): PLAN: Most likely type II with demand type ischemia. Check echocardiogram. Continue aspirin Plavix. DC heparin infusion. (2) Congestive heart failure: PLAN: No prior history of heart failure. Will check echocardiogram. (3) Septic shock: PLAN: As per supervising film or videotape editor. (4) UTI (urinary tract infection): PLAN: On antibiotics. (5) Super obesity: PLAN: Lose weight. HPI Consult Data Date of Consult: 08/14/24 HPI Narrative HPI Narrative: This lady presented to the hospital with complaints of weakness, fatigue, fever and nausea/vomiting. Possible aspiration with 1 episode of vomiting. Denied any chest pains. Some shortness of breath. Per patient, she has been having flulike symptoms for the past 4 to 5 days. Patient's initial workup suggested complicated UTI with sepsis, acute hypoxic respiratory failure secondary to possible viral illness and septic shock. As part of her workup, troponin were also checked. These were elevated. Subsequently we have been consulted for cardiac evaluation and management. Patient denies any history of heart disease. As noted above, denies any chest pains. No history of angina. [facility] Medical History Epilepsy Hammer toes of both feet Cerebrovascular disease Age related cataract Wears glasses Wears hearing aid Rash Walker as ambulation aid Easy bruising History of diverticulitis Gastric reflux Non-smoker Shortness of breath on exertion Vericose veins History of CVA (cerebrovascular accident) Seizure disorder Thyroid disorder Rheumatoid arthritis Diverticulitis Sleep apnea COPD (chronic obstructive pulmonary disease) Diabetes mellitus type 2 in obese Benign essential hypertension Convulsion Osteoarthritis Hypothyroid TIA (transient ischemic attack) Hypercholesterolemia Anemia in chronic illness Allergic rhinitis Glaucoma Morbid obesity Peripheral venous insufficiency GERD (gastroesophageal reflux disease) Asthma Schizophrenia Depression Anxiety disorder Hyperlipidemia Hypertension Home Medications ?Medication ?Instructions ?Recorded ?Last Taken ?Type clopidogrel 75 mg tablet 75 mg PO DAILY 03/28/1307/03 History hydrochlorothiazide 25 mg tablet 25 mg PO DAILY ##0 03/10/24 History metoprolol succinate 100 mg 100 mg PO DAILY 03/28/13 0 12/19/20 History tablet,extended release 24 hr paliperidone 6 mg tablet,extended 6 mg PO QHS 01/31/17 03/10/24 History release 24 hr montelukast 10 mg tablet 10 mg PO QHS #90 tabs 03/10/24 Rx albuterol sulfate 2.5 mg/3 mL 2.5 mg inhalation DAILY PRN 11/27/23 Unknown History (0.083 %) solution for nebulization shortness of breat h or wheezing atorvastatin 20 mg tablet 20 mg PO QHS 11/27/23 History clonazepam 0.5 mg tablet 0.5 mg PO BID 11/27/2303/10 History fluticasone propionate 220 2 inh inhalation BID 03/10/24 History mcg/actuation HFA aerosol inhaler latanoprost 0.005 % eye drops 1 drp ophthalmic (eye) Q HS 11/27/23 03/10/24 History losartan 50 mg tablet 50 mg PO DAILY 11/27/23 10/07/03 History phenobarbital 60 mg tablet 120 mg PO 0800 11/27/23 Unk nown History phenobarbital 60 mg tablet 180 mg PO SUMOWETHSA seizur es 11/27/23 Unknown History polyethylene glycol 3350 17 17 g PO DAILY PRN CONSTIPA TION 11/27/23 03/10/24 History gram/dose oral powder (Miralax) propylene glycol 1 %-glycerin 0.3 2 drp ophthalmic (ey e) Q4H PRN dry 11/27/23 Unknown History % eye drops (Artificial Tears eye(s) (glycerin-peg)) acetaminophen 500 mg tablet 500 mg PO Q6H PRN pain 08/0303/10/24 History cholecalciferol (vitamin D3) 25 50 mcg PO DAILY Unknown History mcg (1,000 unit) tablet levothyroxine 200 mcg tablet 200 mcg PO QHS 03/11/24 1 History nifedipine 90 mg tablet,extended 90 mg PO DAILY 03/10/24 History release phenobarbital 60 mg tablet 60 mg PO TUFR seizures 08/0303/10/24 History escitalopram oxalate 10 mg tablet 10 mg PO DAILY #0 ta bs 03/16/24 Unknown Rx albuterol sulfate 90 mcg/actuation 2 puff inhalation Q 4H PRN 08/13/24 Unknown History aerosol inhaler shortness of breath or wheez ing ondansetron 4 mg disintegrating 4 mg PO Q4H PRN nausea and vomiting 08/13/24 Unknown History tablet pantoprazole 40 mg tablet,delayed 40 mg PO BID 5 Unknown History release (Protonix) quetiapine 100 mg tablet 100 mg PO QHS 08/13/24 Unkno wn History triamcinolone acetonide 0.1 % 1 applic topical Q8 PRN itching 08/13/24 Unknown History topical cream Allergy/AdvReac Type Severity Reaction Status Date / Time amoxicillin Allergy NEEDS Verified 03/11/24 08:36 FOLLOW-UP codeine Allergy Shortness Verified 03/11/24 08:36 of breath cyclobenzaprine (From Allergy NEEDS Verified 03/11/24 08:36 Flexeril) FOLLOW-UP dextromethorphan HBr (From Allergy Shortness Verified 03/11/24 08:36 Tylenol Cold Multi-Symptom) of breath diazepam (From Valium) Allergy Shortness Verified 03/11/24 08:36 of breath fluticasone (From Advair Allergy NEEDS Verified 03/11/24 08:36 Diskus) FOLLOW-UP Food Allergies: Uncoded Allergy Shortness Verified 03/11/24 08:36 of breath guaifenesin (From Tylenol Allergy Shortness Verified 03/11/24 08:36 Cold Multi-Symptom) of breath hydrocodone bitartrate (From Allergy Shortness Verified 03/11/24 08:36 Vicodin) of breath iodine Allergy Anaphylaxis Verified 03/11/24 08:36 Latex, Natural Rubber Allergy Shortness Verified 03/11/24 08:36 of breath morphine Allergy Shortness Verified 03/11/24 08:36 of breath NSAIDS (Non-Steroidal Allergy Shortness Verified 03/11/24 08:36 Anti-Inflamma of breath oxaprozin (From Daypro) Allergy NEEDS Verified 03/11/24 08:36 FOLLOW-UP oxycodone Allergy NEEDS Verified 03/11/24 08:36 FOLLOW-UP phenylephrine HCl (From Allergy Shortness Verified 03/11/24 08:36 Tylenol Cold Multi-Symptom) of breath phenytoin (From Dilantin) Allergy NEEDS Verified 03/11/24 08:36 FOLLOW-UP phenytoin sodium (From Allergy Shortness Verified 03/11/24 08:36 Dilantin) of breath phenytoin sodium extended Allergy Shortness Verified 03/11/24 08:36 (From Dilantin) of breath povidone-iodine (From Allergy BLISTERS Verified 03/11/24 08:36 Betadine) pseudoephedrine HCl (From Allergy Shortness Verified 03/11/24 08:36 Tylenol Cold Multi-Symptom) of breath salmeterol (From Advair Allergy NEEDS Verified 03/11/24 08:36 Diskus) FOLLOW-UP shellfish derived Allergy NEEDS Verified 03/11/24 08:36 FOLLOW-UP soap (From Betadine) Allergy BLISTERS Verified 03/11/24 08:36 tetracycline Allergy NEEDS Verified 03/11/24 08:36 FOLLOW-UP tositumomab iodine-131 Allergy NEEDS Verified 03/11/24 08:36 FOLLOW-UP muscle relaxers Allergy Shortness Uncoded 05/22/23 11:04 of breath Family History Mother CVA (cerebral vascular accident) Cancer Depression Diabetes Emphysema lung Hypertension Arthritis Father CVA (cerebral vascular accident) Cancer Depression Diabetes Emphysema lung Hypertension Arthritis Surgical History History of cholecystectomy History of tonsillectomy History of total hysterectomy History of total knee replacement History of bilateral tympanoplasty History of tubal ligation History of D&C Social History household members: none housing: prison Smoking Status: Never smoker second hand exposure: Yes alcohol intake: never substance use type: does not use what type of physical activity do you participate in: walking do you feel safe at home: Yes Physical Exam Narrative Morbidly obese. Heart sounds 1 and 2 noted. Chest examination with decreased breath sounds bilateral bases. Alert oriented x 3. No ankle edema. Risk Stratification Risk Stratification Applicable: No Objective Data Vital Signs: Vital Signs Temp Pulse Resp BP Pulse Ox O2 Del Method O2 Flow Rate 98.9 F 84 23 H 131/79 H 91 Nasal Cannula 4 08/14/24 09:00 08/14/24 09:00 08/14/24 09:00 08/14/24 09:00 08/14/24 09:00 08/14/24 09:00 08/14/24 09:00 FiO2 40 08/14/24 04:46 Oxygen Flow Rate (L/min) 4 Oxygen Delivery Method Nasal Cannula Weight: 319 lb 3.669 oz Body Mass Index (BMI) 27.9 Intake & Output: Intake and Output for Last 24 Hours 08/12/24 08/13/24 08/14/24 23:59 23:59 23:59 Intake Total 3803.92 / 3803.92 510.4 / 510.4 Output Total 600 / 600 Balance 3803.92 / 3653.92 -89.6 / -89.6 Lab / Micro Data Attestation: I reviewed the patient's lab results. 08/14/24 02:55 08/14/24 02:55 Labs: Laboratory Results - last 24 hr 08/13/24 15:50: WBC 15.0 H, RBC 3.70 L, Hgb 11.9 L, Hct 36.2 L, MCV 97.8, MCH 32.2 H, MCHC 32.9, RDW Std Deviation 56.1 H, RDW Coeff of Piedad 15.8 H, Plt Count 188, MPV 10.5, Immature Gran % (Auto) 0.300, Neut % (Auto) 90.8 H, Lymph % (Auto) 3.6 L, [place] % (Auto) 5.2, Eos % (Auto) 0.0, Baso % (Auto) 0.1, Absolute Neuts (auto) 13.6 H, Absolute Lymphs (auto) 0.54 L, Nucleated RBC % 0.1, PT 14.8, INR 1.1, APTT 40.2 H, Sodium 138, Potassium 4.3, Chloride 98, Carbon Dioxide 23.7, Anion Gap 17 H, BUN 29H, Creatinine 1.48 H, Estim Creat Clear Calc 45.10 L, Est GFR (MDRD) Non-Af 37 L, BUN/Creatinine Ratio 19.5, Glucose 149H, Lactic Acid 3.1 H*, Calcium 9.2, Phosphorus 3.3, Magnesium 1.7, Total Bilirubin 0.27, AST 27, ALT 17, Alkaline Phosphatase 130 H, Troponin T High [id number] H*, NT pro BNP II 3099H, Total Protein 7.4, Albumin 3.9, Globulin 3.5, Albumin/Globulin Ratio 1.1 08/13/24 16:10: Urine Color Yellow, Urine Clarity Sl. Cloudy, Urine pH 6.0, Ur Specific [place] 1.015, Urine Protein 30 H, Urine Glucose (UA) Normal, Urine Ketones Negative, Urine Occult Blood 50 H, Urine Nitrite Negative, Urine Bilirubin Negative, Urine Urobilinogen Normal, Ur Leukocyte Esterase 500 H, Urine RBC 0-5 SEEN, Urine WBC 50-100 SEEN, Ur Squamous Epith Cells 0-5 SEEN, Urine Bacteria 3+, Urine Mucus 0 SEEN 08/13/24 19:12: Troponin T Hi Sens 2 Hr 427 H* 08/13/24 22:01: Troponin T Hi Sens 4Hr 467 H* 08/13/24 23:07: D-Dimer Quant (PE/DVT) 1.43 H*, Lactic Acid 1.8 08/14/24 02:55: WBC 12.8 H, RBC 3.20 L, Hgb 10.2 L, Hct 31.8 L, MCV 99.4 H, MCH 31.9, MCHC 32.1, RDW Std Deviation 58.2 H, RDW Coeff of Piedad 15.9 H, Plt Count 145 L, MPV 10.6, Immature Gran % (Auto) 0.500, Neut % (Auto) 88.0 H, Lymph % (Auto) 5.5 L, [place] % (Auto) 5.6, Eos % (Auto) 0.2, Baso % (Auto)0.2, Absolute Neuts (auto) 11.3 H, Absolute Lymphs (auto) 0.70 L, Nucleated RBC % 0, APTT > 200.0 H*, Sodium 140, Potassium 4.5, Chloride 101, Carbon Dioxide 22.8, Anion Gap 16 H, BUN 33 H, Creatinine 1.55 H, Estim Creat Clear Calc 43.56 L, Est GFR (MDRD) Non-Af 35 L, BUN/Creatinine Ratio 21.5 H, Glucose 114 H, Calcium 8.4, Total Bilirubin < 0.15, AST 38 H, ALT 22, Alkaline Phosphatase 109 H, Total Protein 7.0, Albumin 3.7, Globulin 3.3, Albumin/Globulin Ratio 1.1, Triglycerides 38, Cholesterol 183, LDL Cholesterol, Calc 77, VLDL Cholesterol 8,HDL Cholesterol 99, Cholesterol/HDL Ratio 1.85, TSH 1.240 08/14/24 08:45: NT pro BNP II 3934 H, Procalcitonin 0.39 H Micro: Microbiology 08/13/24 Unknown Mucosa - Nasopharyngeal SARS-CoV-2, Influenza & RSV (PCR) -Final 08/13/24 22:01 Nasal Secretion MRSA (PCR) - Final 08/13/24 22:01 Urine Catheter - Catheter Legionella Antigen - Final 08/13/24 22:01 Urine Catheter - Catheter Streptococcus pneumoniae Antigen (M- Final ABG Data ABG results: ABG 08/13/24 19:53 Specimen Type ART Sample Site L Radial pH 7.32 L Bicarbonate Actual 25.7 Total CO2 27 Base Excess -1 O2 Saturation 97 O2 % 70.0 ABG pCO2 50.4 H ABG pO2 98 Tera Test Positive O2 Delivery Device BiPAP Vent Mode Not entered POC PEEP 9 Rhythm Strip Rhythm Strip: Sinus Rhythm Cardiology Labs/Tests 08/13/24 15:50: WBC 15.0 H, RBC 3.70 L, Hgb 11.9 L, Hct 36.2 L, MCV 97.8, MCH 32.2 H, MCHC 32.9, Plt Count 188, MPV 10.5, Immature Gran % (Auto) 0.300, Neut %(Auto) 90.8 H, Lymph % (Auto) 3.6 L, [place]% (Auto) 5.2, Eos % (Auto) 0.0, Baso %(Auto) 0.1, Absolute Neuts (auto) 13.6 H, Nucleated RBC % 0.1, PT 14.8, INR 1.1,APTT 40.2 H, Sodium 138, Potassium 4.3, Chloride 98, Carbon Dioxide 23.7, Anion Gap 17 H, BUN 29 H, Creatinine 1.48 H, Est GFR (MDRD) Non-Af 37 L, BUN/Creatinine Ratio 19.5, Nycmoml018 H, Lactic Acid 3.1 H*, Calcium 9.2, Phosphorus 3.3, Magnesium 1.7, Total Bilirubin 0.27 08/13/24 16:10: Urine Color Yellow, Urine Clarity Sl. Cloudy, Urine pH 6.0, Ur Specific [place] 1.015, Urine Protein 30 H, Urine Glucose (UA) Normal, Urine Ketones Negative, Urine Occult Blood 50 H, Urine Nitrite Negative, Urine Bilirubin Negative, Urine Urobilinogen Normal, Ur Leukocyte Esterase 500 H, Urine RBC 0-5 SEEN, Urine WBC 50-100 SEEN 08/13/24 19:53: pH 7.32 L, Bicarbonate Actual 25.7, Base Excess -1, O2 Saturation 97, ABG pCO2 50.4H, ABG pO2 98, Tera Test Positive 08/13/24 23:07: D-Dimer Quant (PE/DVT) 1.43 H*, Lactic Acid 1.8 08/14/24 02:55: WBC 12.8 H, RBC 3.20 L, Hgb 10.2 L, Hct 31.8 L, MCV 99.4 H, MCH 31.9, MCHC 32.1, Plt Count 145 L, MPV 10.6, Immature Gran % (Auto) 0.500, Neut %(Auto) 88.0 H, Lymph % (Auto) 5.5 L, [place] % (Auto) 5.6, Eos % (Auto) 0.2, Baso %(Auto) 0.2, Absolute Neuts (auto) 11.3 H, Nucleated RBC % 0, APTT > 200.0 H*, Sodium 140, Potassium 4.5, Chloride 101, Carbon Dioxide 22.8, Anion Gap 16 H, B UN 33 H, Creatinine 1.55 H, Est GFR (MDRD) Non-Af 35 L, BUN/Creatinine Ratio 21.5 H, Glucose 114 H,Calcium 8.4, Total Bilirubin < 0.15, Triglycerides 38, Cholesterol 183, VLDL Cholesterol 8, HDL Cholesterol 99, Cholesterol/HDL Ratio 1.85 Rhythm: EKG: Normal sinus rhythm. Nonspecific T wave changes. ECHO: Stress Test: Cardiac Cath: PCI: CT Surgery: Holter monitor: EPS: PPM: CXR: Chest CT Scan: Radiography Diagnostic Testing: Radiology Impression Chest X-Ray 08/13/24 16:35 IMPRESSION: Suspicion of bilateral pulmonary venous congestion. Reading Location: [place] [address] 08/14/24 1108 Cosigner Signature (if applicable): CC: Dr. Panda Littlejohn MD~ Signed [facility]03-07-2025 Progress note Author Lc Head [facility] Note Date/Time August 14, 2024 7:27 am [facility] Medical Records Department [address] [place] [id number] Progress Note - Hospitalist 08/14/24 0704 MR#: [id number] Acct: [id number] Name: ADRIENNE MORRISON Rep #:[id number] : 1950 74 From: Lc Head MD PCP: Dr. Panda Littlejohn MD Status:ADM IN Location: ICU ICU03- Reason for Visit Reason for Visit: Diagnoses Sepsis, unspecified organism (08/13/24) Severe sepsis with septic shock (08/13/24) Objective Data Objective Data Vital Signs: Vital Signs Temp Pulse Resp BP Pulse Ox O2 Del Method O2 Flow Rate 99.3 F H 67 16 108/74 96 Bi-pap 15 08/14/24 04:00 08/14/24 06:00 08/14/24 06:00 08/14/24 06:00 08/14/24 06:00 08/14/24 06:00 08/13/24 16:38 FiO2 40 08/14/24 04:46 Oxygen Flow Rate (L/min) 15 Oxygen Delivery Method Bi-pap Weight: 69.3 kg Body Mass Index (BMI) 27.9 Intake & Output: Intake and Output for Last 24 Hours 08/12/24 08/13/24 08/14/24 23:59 23:59 23:59 Intake Total 3803.92 / 3803.92 410.4 / 410.4 Output Total 600 / 600 Balance 3803.92 / 3653.92 -189.6 / -189.6 Lab / Micro Data 08/14/24 02:55 08/14/24 02:55 Labs: Laboratory Results - last 24 hr 08/13/24 15:50: WBC 15.0 H, RBC 3.70 L, Hgb 11.9 L, Hct 36.2 L, MCV 97.8, MCH 32.2 H, MCHC 32.9, RDW Std Deviation 56.1 H, RDW Coeff of Piedad 15.8 H, Plt Count 188, MPV 10.5, Immature Gran % (Auto) 0.300, Neut % (Auto) 90.8 H, Lymph % (Auto) 3.6 L, [place] % (Auto) 5.2, Eos % (Auto) 0.0, Baso % (Auto) 0.1, Absolute Neuts (auto) 13.6 H, Absolute Lymphs (auto) 0.54 L, Nucleated RBC % 0.1, PT 14.8, INR 1.1, APTT 40.2 H, Sodium 138, Potassium 4.3, Chloride 98, Carbon Dioxide 23.7, Anion Gap 17 H, BUN 29 H, Creatinine 1.48 H, Estim Creat Clear Calc 45.10 L, Est GFR (MDRD) Non-Af 37 L, BUN/Creatinine Ratio 19.5, Glucose 149H, Lactic Acid 3.1 H*, Calcium 9.2, Phosphorus 3.3, Magnesium 1.7, Total Bilirubin 0.27, AST 27, ALT 17, Alkaline Phosphatase 130 H, Troponin T High [id number] H*, NT pro BNP II 3099 H, Total Protein 7.4, Albumin 3.9, Globulin 3.5, Albumin/Globulin Ratio 1.1 08/13/24 16:10: Urine Color Yellow, Urine Clarity Sl. Cloudy, Urine pH 6.0, Ur Specific [place] 1.015, Urine Protein 30 H, Urine Glucose (UA) Normal, Urine Ketones Negative, Urine Occult Blood 50 H, Urine Nitrite Negative, Urine Bilirubin Negative, Urine Urobilinogen Normal, Ur Leukocyte Esterase 500 H, Urine RBC 0-5 SEEN, Urine WBC 50-100 SEEN, Ur Squamous Epith Cells 0-5 SEEN, Urine Bacteria 3+, Urine Mucus 0 SEEN 08/13/24 19:12: Troponin T Hi Sens 2 Hr 427 H* 08/13/24 22:01: Troponin T Hi Sens 4Hr 467 H* 08/13/24 23:07: D-Dimer Quant (PE/DVT) 1.43 H*, Lactic Acid 1.8 08/14/24 02:55: WBC 12.8 H, RBC 3.20 L, Hgb 10.2 L, Hct 31.8 L, MCV 99.4 H, MCH 31.9, MCHC 32.1, RDW Std Deviation 58.2 H, RDW Coeff of Piedad 15.9 H, Plt Count 145 L, MPV 10.6, Immature Gran % (Auto) 0.500, Neut % (Auto) 88.0 H, Lymph % (Auto) 5.5 L, [place] % (Auto) 5.6, Eos % (Auto) 0.2, Baso % (Auto) 0.2, Absolute Neuts (auto) 11.3 H, Absolute Lymphs (auto) 0.70 L, Nucleated RBC % 0, APTT > 200.0 H*, Sodium 140, Potassium 4.5, Chloride 101, Carbon Dioxide 22.8, Anion Gap 16 H, BUN 33 H, Creatinine 1.55 H, Estim Creat Clear Calc 43.56 L, Est GFR (MDRD) Non-Af 35 L, BUN/Creatinine Ratio 21.5 H, Glucose 114 H, Calcium 8.4, Total Bilirubin < 0.15, AST 38 H, ALT 22, Alkaline Phosphatase 109 H, Total Protein 7.0, Albumin 3.7, Globulin 3.3, Albumin/Globulin Ratio 1.1, Triglycerides 38, Cholesterol 183, LDL Cholesterol, Calc 77, VLDL Cholesterol 8,HDL Cholesterol 99, Cholesterol/HDL Ratio 1.85, TSH 1.240 Micro: Microbiology 08/13/24 Unknown Mucosa - Nasopharyngeal SARS-CoV-2, Influenza & RSV (PCR) - Final 08/13/24 22:01 Nasal Secretion MRSA (PCR) - Final 08/13/24 22:01 Urine Catheter - Catheter Legionella Antigen - Final 08/13/24 22:01 Urine Catheter - Catheter Streptococcus pneumoniae Antigen (M- Final ABG Data ABG results: ABG 08/13/24 19:53 Specimen Type ART Sample Site L Radial pH 7.32 L Bicarbonate Actual 25.7 Total CO2 27 Base Excess -1 O2 Saturation 97 O2 % 70.0 ABG pCO2 50.4 H ABG pO2 98 Tera Test Positive O2 Delivery Device BiPAP Vent Mode Not entered POC PEEP 9 Radiography Diagnostic Testing: Radiology Impression Chest X-Ray 08/13/24 16:35 IMPRESSION: Suspicion of bilateral pulmonary venous congestion. Reading Location: [place] [address] Physical Exam Narrative GENERAL: Patient appears ill looking HEENT: Atraumatic; normocephalic EYES; Anicteric, Normal Conjunctiva NECK; supple, normal thyroid, RESPIRATORY: Diminished to auscultation with bilateral rhonchi CARDIOVASCULAR: Regular S1 S2, tachycardic GI: soft, normoactive bowel sounds, : No Renal angle tenderness; EXTREMITIES: edema, no clubbing, MUSCULOSKELETAL: no muscle wasting NEURO: Awake; no lateralizing signs. SKIN: No Rash PSYCH; Flat affect Assessment & Plan Assessment/Plan (1) Septic shock: PLAN: Plan Patient is a 74-year-old lady resident at [facility] who was broughtto the emergency department with shortness of breath. She was reported to have vomited and route with concern for aspiration chest x-ray obtained on admission demonstrated bilateral pulmonary venous congestion. An assessment of acute hypoxic respiratory failure was made patient started on BiPAP admitted to the intensive care unit for further management 1. Acute hypoxic respiratory failure ? Multifactorial including bilateral pulmonary venous congestion, aspiration pneumonia patient was placed on noninvasive ventilation started on broad- spectrum antibiotic therapy admitted to the intensive care unit with consult placed to supervising film or videotape editor 2. Septic shock ? Secondary to a combination of acute cystitis as well as recent influenza A infection with suspected bacterial pneumonia. Patient was started on broad- spectrum antibiotic therapy after cultures have been initiated. Patient was notresuscitated with IV fluids per protocol given concern for fluid overload status 3. Acute congestive heart failure?unspecified ? Patient management noninvasive ventilation BiPAP Lasix was held off given concern for relatively low blood pressure. Serial cardiac enzymes and echo ordered and cardiology consulted by admitting physician 4. Elevated troponin ? Suspected to be secondary to demand ischemia from above echo has been ordered subsequent serial cardiac enzymes ordered 5. Elevated D-dimer ? Patient was started on heparin CTA was not ordered given patient acute kidney injury most show patient has allergy to dye plan is for patient to undergo evaluation VQ scan as well as lower extremity duplex 6. Acute kidney injury ? Creatinine from 06/04/2024 was 0.82 creatinine on admission was 1.48 creatinine did bump up to 1.55. Patient AC suspected secondary to ischemic ATN 7. Anemia ? Secondary to chronic disorder monitoring H&H and transfuse if patient becomes symptomatic or hemoglobin falls below 7 8. Hypothyroidism ? Patient is on levothyroxine home dose continued 9. Dyslipidemia ?Patient is on statin therapy, continued at home dose 10. Essential hypertension ? Patient is on losartan as well as HCTZ held given relatively low blood pressure as well as impaired kidney function 11. GERD ? Patient is on PPI 12. Schizophrenia ? Plan is to continue patient antipsychotic medications 13. Seizure disorder controlled on phenobarbital plan is to resume following med rec 14. COPD/asthma ? Bronchodilator treatment as needed 15. DVT prophylaxis ? Patient is on heparin Time spent in the patient's overall evaluation,decision-making process, review of diagnostic data, adjustment of management, discussion with other providers, nursing nursing and ancillary staff involved in patient's care documentation, 55Minutes Charges/Coding Visit Charges Inpatient E&M: 10514 Subs Hosp L3 08/14/24 0827 <Electronically signed by Lc Head MD> Cosigner Signature (if applicable): CC: ~ Signed [facility] Work Phone: [phone] Progress note [facility] Medical Records Department [address] [place] [address] Progress Note - Hospitalist 08/14/24 0704 MR#: [id number] Acct: [id number] Name: PRINCEADRIENNE J Rep #:[id number] : 1950 74 From: Lc Head MD PCP: Dr. Panda Littlejohn MD Status:ADM IN Location: ICU ICU03-1 Reason for Visit Reason for Visit: Diagnoses Sepsis, unspecified organism (08/13/24) Severe sepsis with septic shock (08/13/24) Objective Data Objective Data Vital Signs: Vital Signs Temp Pulse Resp BP Pulse Ox O2 Del Method O2 Flow Rate 99.3 F H 67 16 108/74 96 Bi-pap 15 08/14/24 04:00 08/14/24 06:00 08/14/24 06:00 08/14/24 06:00 08/14/24 06:00 08/14/24 06:00 08/13/24 16:38 FiO2 40 08/14/24 04:46 Oxygen Flow Rate (L/min) 15 Oxygen Delivery Method Bi-pap Weight: 69.3 kg Body Mass Index (BMI) 27.9 Intake & Output: Intake and Output for Last 24 Hours 08/12/24 08/13/24 08/14/24 23:59 23:59 23:59 Intake Total 3803.92 / 3803.92 410.4 / 410.4 Output Total 600 / 600 Balance 3803.92 / 3653.92 -189.6 / -189.6 Lab / Micro Data 08/14/24 02:55 08/14/24 02:55 Labs: Laboratory Results - last 24 hr 08/13/24 15:50: WBC 15.0 H, RBC 3.70 L, Hgb 11.9 L, Hct 36.2 L, MCV 97.8, MCH 32.2 H, MCHC 32.9, RDW Std Deviation 56.1 H, RDW Coeff of Piedad 15.8 H, Plt Count 188, MPV 10.5, Immature Gran % (Auto) 0.300, Neut % (Auto) 90.8 H, Lymph % (Auto) 3.6 L, [place] % (Auto) 5.2, Eos % (Auto) 0.0, Baso % (Auto) 0.1, Absolute Neuts (auto) 13.6 H, Absolute Lymphs (auto) 0.54 L, Nucleated RBC % 0.1, PT 14.8, INR 1.1, APTT 40.2 H, Sodium 138, Potassium 4.3, Chloride 98, Carbon Dioxide 23.7, Anion Gap 17 H, BUN 29H, Creatinine 1.48 H, Estim Creat Clear Calc 45.10 L, Est GFR (MDRD) Non-Af 37 L, BUN/Creatinine Ratio 19.5, Glucose 149H, Lactic Acid 3.1 H*, Calcium 9.2, Phosphorus 3.3, Magnesium 1.7, Total Bilirubin 0.27, AST 27, ALT 17, Alkaline Phosphatase 130 H, Troponin T High [id number] H*, NT pro BNP II 3099H, Total Protein 7.4, Albumin 3.9, Globulin 3.5, Albumin/Globulin Ratio 1.1 08/13/24 16:10: Urine Color Yellow, Urine Clarity Sl. Cloudy, Urine pH 6.0, Ur Specific [place] 1.015, Urine Protein 30 H, Urine Glucose (UA) Normal, Urine Ketones Negative, Urine Occult Blood 50 H, Urine Nitrite Negative, Urine Bilirubin Negative, Urine Urobilinogen Normal, Ur Leukocyte Esterase 500 H, Urine RBC 0-5 SEEN, Urine WBC 50-100 SEEN, Ur Squamous Epith Cells 0-5 SEEN, Urine Bacteria 3+, Urine Mucus 0 SEEN 08/13/24 19:12: Troponin T Hi Sens 2 Hr 427 H* 08/13/24 22:01: Troponin T Hi Sens 4Hr 467 H* 08/13/24 23:07: D-Dimer Quant (PE/DVT) 1.43 H*, Lactic Acid 1.8 08/14/24 02:55: WBC 12.8 H, RBC 3.20 L, Hgb 10.2 L, Hct 31.8 L, MCV 99.4 H, MCH 31.9, MCHC 32.1, RDW Std Deviation 58.2 H, RDW Coeff of Piedad 15.9 H, Plt Count 145 L, MPV 10.6, Immature Gran % (Auto) 0.500, Neut % (Auto) 88.0 H, Lymph % (Auto) 5.5 L, [place] % (Auto) 5.6, Eos % (Auto) 0.2, Baso % (Auto)0.2, Absolute Neuts (auto) 11.3 H, Absolute Lymphs (auto) 0.70 L, Nucleated RBC % 0, APTT > 200.0 H*, Sodium 140, Potassium 4.5, Chloride 101, Carbon Dioxide 22.8, Anion Gap 16 H, BUN 33 H, Creatinine 1.55 H, Estim Creat Clear Calc 43.56 L, Est GFR (MDRD) Non-Af 35 L, BUN/Creatinine Ratio 21.5 H, Glucose 114 H, Calcium 8.4, Total Bilirubin < 0.15, AST 38 H, ALT 22, Alkaline Phosphatase 109 H, Total Protein 7.0, Albumin 3.7, Globulin 3.3, Albumin/Globulin Ratio 1.1, Triglycerides 38, Cholesterol 183, LDL Cholesterol, Calc 77, VLDL Cholesterol 8,HDL Cholesterol 99, Cholesterol/HDL Ratio 1.85, TSH 1.240 Micro: Microbiology 08/13/24 Unknown Mucosa - Nasopharyngeal SARS-CoV-2, Influenza & RSV (PCR) -Final 08/13/24 22:01 Nasal Secretion MRSA (PCR) - Final 08/13/24 22:01 Urine Catheter - Catheter Legionella Antigen - Final 08/13/24 22:01 Urine Catheter - Catheter Streptococcus pneumoniae Antigen (M- Final ABG Data ABG results: ABG 08/13/24 19:53 Specimen Type ART Sample Site L Radial pH 7.32 L Bicarbonate Actual 25.7 Total CO2 27 Base Excess -1 O2 Saturation 97 O2 % 70.0 ABG pCO2 50.4 H ABG pO2 98 Tera Test Positive O2 Delivery Device BiPAP Vent Mode Not entered POC PEEP 9 Radiography Diagnostic Testing: Radiology Impression Chest X-Ray 08/13/24 16:35 IMPRESSION: Suspicion of bilateral pulmonary venous congestion. Reading Location: [place] [address] Physical Exam Narrative GENERAL: Patient appears ill looking HEENT: Atraumatic; normocephalic EYES; Anicteric, Normal Conjunctiva NECK; supple, normal thyroid, RESPIRATORY: Diminished to auscultation with bilateral rhonchi CARDIOVASCULAR: Regular S1 S2, tachycardic GI: soft, normoactive bowel sounds, : No Renal angle tenderness; EXTREMITIES: edema, no clubbing, MUSCULOSKELETAL: no muscle wasting NEURO: Awake; no lateralizing signs. SKIN: No Rash PSYCH; Flat affect Assessment & Plan Assessment/Plan (1) Septic shock: PLAN: Plan Patient is a 74-year-old lady resident at [facility] who was broughtto the emergency department with shortness of breath. She was reported to have vomited and route with concern for aspiration chest x-ray obtained on admission demonstrated bilateral pulmonary venous congestion. An assessment of acute hypoxic respiratory failure was made patient started on BiPAP admitted to the intensive care unit for further management 1. Acute hypoxic respiratory failure ? Multifactorial including bilateral pulmonary venous congestion, aspiration pneumonia patient was placed on noninvasive ventilation started on broad- spectrum antibiotic therapy admitted to the intensive care unit with consult placed to supervising film or videotape editor 2. Septic shock ? Secondary to a combination of acute cystitis as well as recent influenza A infection with suspected bacterial pneumonia. Patient was started on broad- spectrum antibiotic therapy after cultures havebeen initiated. Patient was notresuscitated with IV fluids per protocol given concern for fluid overload status 3. Acute congestive heart failure?unspecified ? Patient management noninvasive ventilation BiPAP Lasix was held off given concern for relatively low blood pressure. Serial cardiac enzymes and echo ordered and cardiology consulted by admitting physician 4. Elevated troponin ? Suspected to be secondary to demand ischemia from above echo has been ordered subsequent serial cardiac enzymes ordered 5. Elevated D-dimer ? Patient was started on heparin CTA was not ordered given patient acute kidney injury most show patient has allergy to dye plan is for patient to undergo evaluation VQ scan as well as lower extremity duplex 6. Acute kidney injury ? Creatinine from 06/04/2024 was 0.82 creatinine on admission was 1.48 creatinine did bump up to 1.55. Patient AC suspected secondary to ischemic ATN 7. Anemia ? Secondary to chronic disorder monitoring H&H and transfuse if patient becomes symptomatic or hemoglobin falls below 7 8. Hypothyroidism ? Patient is on levothyroxine home dose continued 9. Dyslipidemia ?Patient is on statin therapy, continued at home dose 10. Essential hypertension ? Patient is on losartan as well as HCTZ held given relatively low blood pressure as well as impaired kidney function 11. GERD ? Patient is on PPI 12. Schizophrenia ? Plan is to continue patient antipsychotic medications 13. Seizure disorder controlled on phenobarbital plan is to resume following med rec 14. COPD/asthma ? Bronchodilator treatment as needed 15. DVT prophylaxis ? Patient is on heparin Time spent in the patient's overall evaluation,decision-making process, review of diagnostic data, adjustment of management, discussion with other providers, nursing nursing and ancillary staff involved in patient's care documentation, 55Minutes Charges/Coding Visit Charges Inpatient E&M: 90728 Rust Hosp L3 08/14/24 7080 Cosigner Signature (if applicable): CC: ~ Signed [facility]03-06-2025 Consult note Author Paresh Brunson [facility] Note Date/Time August 13, 2024 9:35 pm [facility] Medical Records Department [address] [place] [address] Consultation - Mail Processing Associate 08/13/242103 MR#: [id number] Acct: [id number] Name: ADRIENNE MORRISON Rep #:[id number] : 1950 74 From: Paresh Brunson MD PCP: Dr. Panda Littlejohn MD Status:ADM IN Location: ICU ICU03- HPI Consult Data Date of Consult: 08/13/24 HPI Narrative Reason for Consultation: Hypoxemic respiratory failure, septic shock HPI Narrative: ADRIENNE MORRISON, is a 74yo with chief complaint of fever and chills. In context, patient states she felt like she had a spell of Afib coming on from stress related to her sister undergoing colonoscopy. Otherwise reports typical flu symptoms. Living at SNF ~ 1year, nurses checked her vitals there and sent her to ED, but patient threw up in transport to ED. CUrrently denies n/v, has had poor PO intake in general in last 2 days, and has not drank much water (1/2 cup today). Feesl thirsty and denies CHF and leg swelling. No CP. Has been having sweats and chills as well. Per Onsite Hospitalist HPI: 74 y/o F w/ PMHx: Morbid obesity, Seizure disorder/epilepsy, MARY, COPD/Asthma, Hx CVA, GERD, Hypothyroidism, Chronic anemia, HTN, HLD, Rheumatoid arthritis, Anxiety and Depression/Schizophrenia, CKD stage II per prior GFR trending who presents to the [facility] ED on 08/13/2024 with history of fatigue, malaise with onset of nausea and bout of emesis while layingdown earlier in the evening with onset significant dyspnea, hypoxia following with recent positive flu status Saturday (congestion, rhinorrhea, cough, fatigue)status prompting ED evaluation. Workup in the ED included T101 axillary, heart rate 97, BP initially 87/58 with MAP of 67, respiratory rate 26, initially 80% on room air with improvement to initially 86% on 6 L placed on BiPAP with BP decreased to 75/51 transiently with most recent repeat vitals heart rate 81, BP 79/60, respiratory rate 19, 94% on 70% FiO2 BiPAP, CBC with WBC 15, hemoglobin 0.9, MCV 97.8, platelets 188 with left shift and lymphopenia, coags unremarkableaside PTT 40.2, CMP with anion gap 17, BUN/creatinine 29/1.48, GFR 37, glucose 149, lactic acid 3.1, alk phos 130, troponin 317, BNP 3099, urinalysis with specific gravity 1.015, cloudy, protein 30, occult blood 50, negative nitrite, leukocyte esterase 500 however with urine WBCs 50- 100 with 3+ urine bacteria, chest x-ray suspicious for bilateral venous congestion, urine culture pending per ED, blood culture x 2 pending per ED. from review of prior micro records patient does have positive previous MRSA screen 03/12/2024. In the ED patient ministered Tylenol 1000 mg p.o. x 1, cefepime 2 g IV x 1, vancomycin 2001 g IV x1, Zofran 4 mg IV x 1 and initiated on norepinephrine drip. ED discussed case with cardiology and heparin drip was also initiated. In the ED prior to HF concerns noted she was administered 2.5L NS resuscitation. [facility] Medical History Epilepsy Hammer toes of both feet Cerebrovascular disease Age related cataract Wears glasses Wears hearing aid Rash Walker as ambulation aid Easy bruising History of diverticulitis Gastric reflux Non-smoker Shortness of breath on exertion Vericose veins History of CVA (cerebrovascular accident) Seizure disorder Thyroid disorder Rheumatoid arthritis Diverticulitis Sleep apnea COPD (chronic obstructive pulmonary disease) Diabetes mellitus type 2 in obese Benign essential hypertension Convulsion Osteoarthritis Hypothyroid TIA (transient ischemic attack) Hypercholesterolemia Anemia in chronic illness Allergic rhinitis Glaucoma Morbid obesity Peripheral venous insufficiency GERD (gastroesophageal reflux disease) Asthma Schizophrenia Depression Anxiety disorder Hyperlipidemia Hypertension Home Medications ?Medication ?Instructions ?Recorded ?Last Taken ?Type clopidogrel 75 mg tablet 75 mg PO DAILY 03/28/1307/03 History hydrochlorothiazide 25 mg tablet 25 mg PO DAILY ##0 03/10/24 History metoprolol succinate 100 mg 100 mg PO DAILY 03/28/13 0 12/19/20 History tablet,extended release 24 hr paliperidone 6 mg tablet,extended 6 mg PO QHS 01/31/03/10/24 History release 24 hr montelukast 10 mg tablet 10 mg PO QHS #90 tabs 03/10/24 Rx albuterol sulfate 2.5 mg/3 mL 2.5 mg inhalation DAILY PRN 11/27/23 Unknown History (0.083 %) solution for nebulization shortness of breat h or wheezing atorvastatin 20 mg tablet 20 mg PO QHS 11/27/23 History clonazepam 0.5 mg tablet 0.5 mg PO BID 11/27/2303/10 History fluticasone propionate 220 2 inh inhalation BID 03/10/24 History mcg/actuation HFA aerosol inhaler latanoprost 0.005 % eye drops 1 drp ophthalmic (eye) Q HS 11/27/23 03/10/24 History losartan 50 mg tablet 50 mg PO DAILY 11/27/2307/03 History phenobarbital 60 mg tablet 120 mg PO 0800 11/27/23 Unk nown History phenobarbital 60 mg tablet 180 mg PO SUMOWETHSA seizur es 11/27/23 Unknown History polyethylene glycol 3350 17 17 g PO DAILY PRN CONSTIPA TION 11/27/23 03/10/24 History gram/dose oral powder (Miralax) propylene glycol 1 %-glycerin 0.3 2 drp ophthalmic (ey e) Q4H PRN dry 11/27/23 Unknown History % eye drops (Artificial Tears eye(s) (glycerin-peg)) acetaminophen 500 mg tablet 500 mg PO Q6H PRN pain 08/0303/10/24 History cholecalciferol (vitamin D3) 25 50 mcg PO DAILY Unknown History mcg (1,000 unit) tablet levothyroxine 200 mcg tablet 200 mcg PO QHS 03/11/24 1 History nifedipine 90 mg tablet,extended 90 mg PO DAILY 03/10/24 History release phenobarbital 60 mg tablet 60 mg PO TUFR seizures 08/0303/10/24 History escitalopram oxalate 10 mg tablet 10 mg PO DAILY #0 ta bs 03/16/24 Unknown Rx albuterol sulfate 90 mcg/actuation 2 puff inhalation Q 4H PRN 08/13/24 Unknown History aerosol inhaler shortness of breath or wheez ing ondansetron 4 mg disintegrating 4 mg PO Q4H PRN nausea and vomiting 08/13/24 Unknown History tablet pantoprazole 40 mg tablet,delayed 40 mg PO BID 5 Unknown History release (Protonix) quetiapine 100 mg tablet 100 mg PO QHS 08/13/24 Unkno wn History triamcinolone acetonide 0.1 % 1 applic topical Q8 PRN itching 08/13/24 Unknown History topical cream Allergy/AdvReac Type Severity Reaction Status Date / Time amoxicillin Allergy NEEDS Verified 03/11/24 08:36 FOLLOW-UP codeine Allergy Shortness Verified 03/11/24 08:36 of breath cyclobenzaprine (From Allergy NEEDS Verified 03/11/24 08:36 Flexeril) FOLLOW-UP dextromethorphan HBr (From Allergy Shortness Verified 03/11/24 08:36 Tylenol Cold Multi-Symptom) of breath diazepam (From Valium) Allergy Shortness Verified 03/11/24 08:36 of breath fluticasone (From Advair Allergy NEEDS Verified 03/11/24 08:36 Diskus) FOLLOW-UP Food Allergies: Uncoded Allergy Shortness Verified 03/11/24 08:36 of breath guaifenesin (From Tylenol Allergy Shortness Verified 03/11/24 08:36 Cold Multi-Symptom) of breath hydrocodone bitartrate (From Allergy Shortness Verified 03/11/24 08:36 Vicodin) of breath iodine Allergy Anaphylaxis Verified 03/11/24 08:36 Latex, Natural Rubber Allergy Shortness Verified 03/11/24 08:36 of breath morphine Allergy Shortness Verified 03/11/24 08:36 of breath NSAIDS (Non-Steroidal Allergy Shortness Verified 03/11/24 08:36 Anti-Inflamma of breath oxaprozin (From Daypro) Allergy NEEDS Verified 03/11/24 08:36 FOLLOW-UP oxycodone Allergy NEEDS Verified 03/11/24 08:36 FOLLOW-UP phenylephrine HCl (From Allergy Shortness Verified 03/11/24 08:36 Tylenol Cold Multi-Symptom) of breath phenytoin (From Dilantin) Allergy NEEDS Verified 03/11/24 08:36 FOLLOW-UP phenytoin sodium (From Allergy Shortness Verified 03/11/24 08:36 Dilantin) of breath phenytoin sodium extended Allergy Shortness Verified 03/11/24 08:36 (From Dilantin) of breath povidone-iodine (From Allergy BLISTERS Verified 03/11/24 08:36 Betadine) pseudoephedrine HCl (From Allergy Shortness Verified 03/11/24 08:36 Tylenol Cold Multi-Symptom) of breath salmeterol (From Advair Allergy NEEDS Verified 03/11/24 08:36 Diskus) FOLLOW-UP shellfish derived Allergy NEEDS Verified 03/11/24 08:36 FOLLOW-UP soap (From Betadine) Allergy BLISTERS Verified 03/11/24 08:36 tetracycline Allergy NEEDS Verified 03/11/24 08:36 FOLLOW-UP tositumomab iodine-131 Allergy NEEDS Verified 03/11/24 08:36 FOLLOW-UP muscle relaxers Allergy Shortness Uncoded 05/22/23 11:04 of breath Family History Mother CVA (cerebral vascular accident) Cancer Depression Diabetes Emphysema lung Hypertension Arthritis Father CVA (cerebral vascular accident) Cancer Depression Diabetes Emphysema lung Hypertension Arthritis Surgical History History of cholecystectomy History of tonsillectomy History of total hysterectomy History of total knee replacement History of bilateral tympanoplasty History of tubal ligation History of D&C Social History household members: none housing: prison Smoking Status: Never smoker second hand exposure: Yes alcohol intake: never substance use type: does not use what type of physical activity do you participate in: walking do you feel safe at home: Yes ROS ROS Narrative 10 or more systems reviewed with the patient who denies all else besides in HPI. Objective Data Objective Data Vital Signs: Vital Signs Last response 3 Temperature 37.6 C H 08/13/24 20:49 Temperature Source Core 08/13/24 20:49 Pulse Rate 82 08/13/24 20:49 Respiratory Rate 18 08/13/24 20:49 Respiratory Effort Short of Breath 08/13/24 15:38 Respiratory Pattern Normal 08/13/24 20:46 Blood Pressure 99/67 08/13/24 20:49 Blood Pressure Mean 77 08/13/24 20:49 Blood Pressure Source Monitor 08/13/24 20:49 Blood Pressure Position Semi-Fowlers 08/13/24 20:49 Pulse Ox 96 08/13/24 20:49 Oxygen Delivery Method Bi-pap 08/13/24 20:49 Oxygen Flow Rate (L/min) 15 08/13/24 16:38 Fraction of Inspired Oxygen (FIO2) 50 08/13/24 20:46 I&O: I&O Last 24 Hours 3 08/12/24 08/13/24 08/13/24 23:59 11:59 23:59 Intake Total 3140 / 3140 Balance 3140 / 3140 I&O: Total Stay 3 08/13/24 15:37 thru 08/13/24 20:49 Intake Total 3140 Balance 3140 Current Meds Ordered / Administered: Current meds ordered / Administered 3 Generic Name Dose Route Start Last Admin Trade Name Freq PRN Reason Stop Dose Admin Acetaminophen 650 mg 08/13/24 20:54 Acetaminophen 325 Mg Tablet PO Q4H PRN PRN Fever, pain 1-10/10 Acetaminophen 650 mg 08/13/24 20:54 Acetaminophen 650 Mg Suppository RC Q4H PRN PRN Fever, pain 1-10 Al Hydroxide/Mg Hydroxide 30 ml 08/13/24 20:54 Mag Hydrox/Al Hydrox/Simeth 30 Ml Udc PO Q6H PRN PRN Gastric Burning Albuterol Sulfate 2.5 mg 08/13/24 20:54 Albuterol 2.5 Mg/3 Ml Vial.Neb. INHALATION Q2H PRN PRN Dyspnea, wheezing Albuterol/Ipratropium 3 ml 08/13/24 20:54 Ipratropium/Albuterol Sulfate 3 Ml Ampul.Neb INHALATION Q4HWA.RT JEFFREY Atorvastatin Calcium 20 mg 08/13/24 22:00 Atorvastatin Calcium 20 Mg Tablet PO QHS [facility] Calamine/Phenol 1 applic 08/13/24 22:00 Menthol/Lanolin/Calamine/Znox 113 Gm Tube TOPICAL 4X/DAY [facility] Protocol Clonazepam 0.5 mg 08/13/24 22:00 Clonazepam 0.5 Mg Tablet PO BID [facility] Clopidogrel Bisulfate 75 mg 08/14/24 10:00 Clopidogrel Bisulfate 75 Mg Tablet PO DAILY [facility] Escitalopram Oxalate 10 mg 08/14/24 10:00 Escitalopram Oxalate 10 Mg Tablet PO DAILY [facility] Heparin Sodium (Porcine) 0 unit 08/13/24 21:05 Heparin Injection (Vial) 5,000 Unit/Ml Vial IV UD PRN dose adjustment Protocol Sodium Chloride 100 mls @ 15 mls/hr 08/13/24 20:51 IV .Q6H40M PRN Saline Flush Sodium Chloride 100 mls @ 15 mls/hr 08/13/24 20:51 IV .Q6H40M PRN Additional IVPB Infusion Norepinephrine Bitartrate 8 mg 250 mls @ 9.375 mls/hr 08/13/24 20:54 / Sodium Chloride CONT INF .[id number] [facility] Protocol 5 MCG/MIN Heparin Sodium/Dextrose 25,000 units in 250 mls @ 18 mls/hr 08/13/24 20:54 CONT INF .[id number] [facility] Protocol As Directed Vancomycin IV-PHARMACY TO DOSE 500 mls @ 250 mls/hr 08/13/24 20:54 1 each/ Sodium Chloride IV X1 PRN Rx to Dose Protocol Ceftriaxone Sodium 2 gm/ 50 mls @ 100 mls/hr 08/14/24 10:00 Sodium Chloride IV 08/21/24 10:01 Q24 [facility] Metronidazole 500 mg in 100 mls @ 100 mls/hr 08/13/24 22:00 Flagyl IV Q8 [facility] Latanoprost 1 drp 08/13/24 22:00 Latanoprost 0.005% 1 Bottle OPHTHALMIC QHS [facility] Melatonin 3 mg 08/13/24 20:54 Melatonin 3 Mg Tablet PO QHS PRN PRN INSOMNIA Montelukast Sodium 10 mg 08/13/24 22:00 Montelukast 10 Mg Tablet PO QHS [facility] Non-Formulary Medication 2 drp 08/13/24 20:54 Propylene Glycol-Glycerin [Artificial Tears(Glycerin-Peg)] OPHTHALMIC Q4H PRN dry eye(s) Non-Formulary Medication 17 gm 08/13/24 20:54 Polyethylene Glycol 3350 [Miralax] PO DAILY PRN CONSTIPATION Non-Formulary Medication 60 mg 08/14/24 20:30 Phenobarbital PO TUFR JEFFREY Non-Formulary Medication 180 mg 08/13/24 20:54 Phenobarbital PO SUMOWETHSA JEFFREY Non-Formulary Medication 120 mg 08/14/24 08:00 Phenobarbital PO 0800 [facility] Non-Formulary Medication 6 mg 08/13/24 22:00 Paliperidone PO QHS [facility] Non-Formulary Medication 200 mcg 08/13/24 22:00 Levothyroxine PO QHS [facility] Non-Formulary Medication 2 inh 08/13/24 22:00 Fluticasone Propionate INHALATION BID [facility] Nystatin 1 applic 08/13/24 22:00 Nystatin Powder 15gm Bottle TOPICAL TID [facility] Protocol Ondansetron HCl 4 mg 08/13/24 20:54 Ondansetron 4 Mg/2 Ml Vial IV Q8H PRN PRN NAUSEA/VOMITING Pantoprazole Sodium 40 mg 08/13/24 22:00 Pantoprazole Sodium 40 Mg Tablet PO BID [facility] Prochlorperazine Edisylate 5 mg 08/13/24 20:54 Prochlorperazine 10 Mg/2 Ml Vial IV Q4H PRN PRN Breakthrough Nausea/Vomiting Quetiapine Fumarate 100 mg 08/13/24 22:00 Quetiapine 100 Mg Tablet PO QHS [facility] Protocol Senna/Docusate Sodium 2 tablet 08/13/24 20:54 Senna/Docusate Sodium 1 Tablet PO BID PRN PRN Constipation Sodium Chloride 10 - 40 ml 08/13/24 20:51 0.9% Saline Lock 10 Ml Syringe IV UD PRN SALINE FLUSH Physical Exam Const alert, oriented x3 and no apparent distress General Appearance: cooperative, well developed and ill appearing HEENT normocephalic and head/scalp atraumatic Throat: posterior oropharynx normal Eyes PERRL, EOMs intact bilaterally, conjunctivae normal and no scleral icterus Neck full ROM and no JVD Lymph Lymphatic: no lymphadenopathy noted Chest inspection of chest normal Resp normal respiratory effort and no use of accessory muscles Effort and Inspection: able to speak in complete sentences Auscultation: clear to auscultation bilaterally Cardio regular rate and regular rhythm GI normal to inspection, nondistended, normoactive bowel sounds, soft to palpation and non-tender Back/Spine no CVA tenderness Extremity no clubbing, cyanosis or edema Skin no rashes or lesions noted Neuro oriented x3, CN's II-XII intact bilaterally, moves all extremities and no focal motor deficits Psych cooperative and affect normal Speech: normal speech Lab / Micro Data 08/13/24 15:50 08/13/24 15:50 Labs: Laboratory Results - last 24 hr 08/13/24 15:50: WBC 15.0 H, RBC 3.70 L, Hgb 11.9 L, Hct 36.2 L, MCV 97.8, MCH 32.2 H, MCHC 32.9, RDW Std Deviation 56.1 H, RDW Coeff of [place] 15.8 H, Plt Count 188, MPV 10.5, Immature Gran % (Auto) 0.300, Neut % (Auto) 90.8 H, Lymph % (Auto) 3.6 L, [place] % (Auto) 5.2, Eos % (Auto) 0.0, Baso % (Auto) 0.1, Absolute Neuts (auto) 13.6 H, Absolute Lymphs (auto) 0.54 L, Nucleated RBC % 0.1, PT 14.8, INR 1.1, APTT 40.2 H, Sodium 138, Potassium 4.3, Chloride 98, Carbon Dioxide 23.7, Anion Gap 17 H, BUN 29 H, Creatinine 1.48 H, Estim Creat Clear Calc 45.10 L, Est GFR (MDRD) Non-Af 37 L, BUN/Creatinine Ratio 19.5, Glucose 149 H, Lactic Acid 3.1 H*, Calcium 9.2, Total Bilirubin 0.27, AST 27, ALT 17, Alkaline Phosphatase 130 H, Troponin T High Sens 317 H*, NT pro BNP II 3099 H, Total Protein 7.4, Albumin 3.9, Globulin 3.5, Albumin/Globulin Ratio 1.1 08/13/24 16:10: Urine Color Yellow, Urine Clarity Sl. Cloudy, Urine pH 6.0, Ur Specific [place] 1.015, Urine Protein 30 H, Urine Glucose (UA) Normal, Urine Ketones Negative, Urine Occult Blood 50 H, Urine Nitrite Negative, Urine Bilirubin Negative, Urine Urobilinogen Normal, Ur Leukocyte Esterase 500 H, Urine RBC 0-5 SEEN, Urine WBC 50-100 SEEN, Ur Squamous Epith Cells 0-5 SEEN, Urine Bacteria 3+, Urine Mucus 0 SEEN 08/13/24 19:12: Troponin T Hi Sens 2 Hr 427 H* ABG Data ABG results: ABG 08/13/24 19:53 Specimen Type ART Sample Site L Radial pH 7.32 L Bicarbonate Actual 25.7 Total CO2 27 Base Excess -1 O2 Saturation 97 O2 % 70.0 ABG pCO2 50.4 H ABG pO2 98 Tera Test Positive O2 Delivery Device BiPAP Vent Mode Not entered POC PEEP 9 Imaging Radiology Impression Chest X-Ray 08/13/24 16:35 IMPRESSION: Suspicion of bilateral pulmonary venous congestion. Reading Location: [place] [address] CXR reviewed personally Assessment and Plan . Assessment and plan: ICU Problem List: Aspiration of gastric contents Acute hypoxemic respiratory failure Acute hypercapnic respiratory failure Hypoventilation Septic shock Urinary tract infection Pulmonary edema Flu infection AC Plan: NPO and aspiration precautions Recommend going back to cefepime for broader coverage of aspiration (GNR) and UTI ECHOcardiogram recommended to assess IVC and LV function Would still recommend volume expansion with crystalloid or albumin 2/2 high lactic acid, ~500-1000mL total Dimer and if positive, CT PE protocol given enlarged cardiac silhouette and risk factors for VTE Within tamiflu window, need renal adjustment to dose Check TSH and reflex T4 Trend LA q4h until <2 Paresh Brunson MD PCCM Access [facility] Critical Care Time: The entirety of this encounter was done via Telemedicine 08/13/242234 <Electronically signed by Paresh Brunson MD> Cosigner Signature (if applicable): CC: Dr. Panda Littlejohn MD~ Signed [facility] Work Phone: 1(576) 939-806703-06-2025 Consult note Author Panda Rock [facility] Note Date/Time August 13, 2024 9:10 pm [facility] Medical Records Department [address] [place] [address] Pharmacokinetic/Renal -Consult 08/13/24 220 MR#: [id number] Acct: [id number] Name: ADRIENNE MORRISON Sohail Rep #:[id number] : 1950 74 From: Panda Powers od PCP: Dr. Panda Littlejohn MD Status:ADM IN Y Location: ICU ICU03-1 Consult Antibiotic Management Pharmacy has been consulted to manage selected antibiotic: Vancomycin Type of Intervention Type of Consult: New start Labs Labs: Sodium 138 mmol/L (133-145) 08/13/24 15:50 Potassium 4.3 mmol/L (3.3-5.1) 08/13/24 15:50 Chloride 98 mmol/L (98-108) 08/13/24 15:50 Carbon Dioxide 23.7 mmol/L (21.0-32.0) 08/13/24 15:50 Anion Gap 17 (5-15) H 08/13/24 15:50 BUN 29 mg/dL (4-19) H 08/13/24 15:50 Creatinine 1.48 mg/dL (0.70-1.20) H 08/13/24 15:50 Est GFR (MDRD) Non-Af 37 (>60) L 08/13/24 15:50 BUN/Creatinine Ratio 19.5 RATIO (10-20) 08/13/24 15:50 Glucose 149 mg/dL (70-99) H 08/13/24 15:50 Dosing Weight Weight used for dosin.8 kg Estimated Creatinine Clearance Estimated Creatinine Clearance: 45.1 Goal Trough Goal Trough: 15-20 mcg/mL Pharmacy Plan for Drug Dosing Pharmacy Plan for Drug Dosing: Pharmacy Service will continue to monitor and adjust dosing as required. 2000MG GIVEN IN ER 08/13 @ 1740. START 1000MG Q12H AND DRAW TROUGH PRIOR TO 4TH DOSE Follow-Up Labs Follow-Up Labs: Trough: Vancomycin Date/Time Labs Ordered Labs to be done on [date and time ordered]: 08/15 @ 0530 08/13/240 <Electronically signed by Panda suresh> Date _ Panda Rock Cosignngoc Signature (if applicable): Date CC: ~ Signed [facility] Work Phone: [phone]) [phone] History and physical note Author Ibeth Parker [facility] Note Date/Time August 13, 2024 8:03 pm [facility] Medical Records Department [address] [place] [address] H&P Exam - Hospitalist 08/13/241913 MR#: [id number] Acct: [id number] Name: ADRIENNE MORRISON Rep #:[id number] : 1950 74 From: Ibeth Parker MD PCP: Dr. Panda Littlejohn MD Status:ADM IN Location: ICU ICU03-1 HPI - General General Date of Admission: 08/13/24 Date of Service: 08/13/24 Chief Complaint: N/V, possible aspiration, respiratory distress/hypoxia following. HPI Narrative The patient is a 74 y/o F w/ PMHx: Morbid obesity, Seizure disorder/epilepsy, MARY, COPD/Asthma, Hx CVA, GERD, Hypothyroidism, Chronic anemia, HTN, HLD, Rheumatoid arthritis, Anxiety and Depression/Schizophrenia, CKD stage II per prior GFR trending who presents to the [facility] ED on 08/13/2024 with history of fatigue, malaise with onset of nausea and bout of emesis while laying down earlier in the evening with onset significant dyspnea, hypoxia following with recent positive flu status Saturday (congestion, rhinorrhea, cough, fatigue) status prompting ED evaluation. Workup in the ED included T101 axillary, heart rate 97, BP initially 87/58 with MAP of 67, respiratory rate 26, initially 80% on room air with improvement to initially 86% on 6 L placed on BiPAP with BP decreased to 75/51 transiently with most recent repeat vitals heart rate 81, BP 79/60, respiratory rate 19, 94% on 70% FiO2 BiPAP, CBC with WBC 15, hemoglobin 0.9, MCV 97.8, platelets 188 with left shift and lymphopenia, coags unremarkableaside PTT 40.2, CMP with anion gap 17, BUN/creatinine 29/1.48, GFR 37, glucose 149, lactic acid 3.1, alk phos 130, troponin 317, BNP 3099, urinalysis with specific gravity 1.015, cloudy, protein 30, occult blood 50, negative nitrite, leukocyte esterase 500 however with urine WBCs 50-100 with 3+ urine bacteria, chest x-ray suspicious for bilateral venous congestion, urine culture pending per ED, blood culture x 2 pending per ED. from review of prior micro records patient does have positive previous MRSA screen 03/12/2024. In the ED patient ministered Tylenol 1000 mg p.o. x 1, cefepime 2 g IV x 1, vancomycin 2001 g IV x1, Zofran 4 mg IV x 1 and initiated on norepinephrine drip. ED discussed case with cardiology and heparin drip was also initiated. In the ED prior to HF concerns noted she was administered 2.5L NS resuscitation. [facility] Medical History Epilepsy Hammer toes of both feet Cerebrovascular disease Age related cataract Wears glasses Wears hearing aid Rash Walker as ambulation aid Easy bruising History of diverticulitis Gastric reflux Non-smoker Shortness of breath on exertion Vericose veins History of CVA (cerebrovascular accident) Seizure disorder Thyroid disorder Rheumatoid arthritis Diverticulitis Sleep apnea COPD (chronic obstructive pulmonary disease) Diabetes mellitus type 2 in obese Benign essential hypertension Convulsion Osteoarthritis Hypothyroid TIA (transient ischemic attack) Hypercholesterolemia Anemia in chronic illness Allergic rhinitis Glaucoma Morbid obesity Peripheral venous insufficiency GERD (gastroesophageal reflux disease) Asthma Schizophrenia Depression Anxiety disorder Hyperlipidemia Hypertension Home Medications ?Medication ?Instructions ?Recorded ?Last Taken ?Type clopidogrel 75 mg tablet 75 mg PO DAILY 03/28/1307/03 History hydrochlorothiazide 25 mg tablet 25 mg PO DAILY ##0 03/10/24 History metoprolol succinate 100 mg 100 mg PO DAILY 03/28/13 0 12/19/20 History tablet,extended release 24 hr paliperidone 6 mg tablet,extended 6 mg PO QHS 01/31/17 03/10/24 History release 24 hr montelukast 10 mg tablet 10 mg PO QHS #90 tabs 03/10/24 Rx albuterol sulfate 2.5 mg/3 mL 2.5 mg inhalation DAILY PRN 11/27/23 Unknown History (0.083 %) solution for nebulization shortness of breat h or wheezing atorvastatin 20 mg tablet 20 mg PO QHS 11/27/23 History clonazepam 0.5 mg tablet 0.5 mg PO BID 11/27/2303/10 History fluticasone propionate 220 2 inh inhalation BID 03/10/24 History mcg/actuation HFA aerosol inhaler latanoprost 0.005 % eye drops 1 drp ophthalmic (eye) Q HS 11/27/23 03/10/24 History losartan 50 mg tablet 50 mg PO DAILY 11/27/23 10/0 07/03 History phenobarbital 60 mg tablet 120 mg PO 0800 11/27/23 Unk nown History phenobarbital 60 mg tablet 180 mg PO SUMOWETHSA seizur es 11/27/23 Unknown History polyethylene glycol 3350 17 17 g PO DAILY PRN CONSTIPA TION 11/27/23 03/10/24 History gram/dose oral powder (Miralax) propylene glycol 1 %-glycerin 0.3 2 drp ophthalmic (ey e) Q4H PRN dry 11/27/23 Unknown History % eye drops (Artificial Tears eye(s) (glycerin-peg)) acetaminophen 500 mg tablet 500 mg PO Q6H PRN pain 08/0303/10/24 History cholecalciferol (vitamin D3) 25 50 mcg PO DAILY Unknown History mcg (1,000 unit) tablet levothyroxine 200 mcg tablet 200 mcg PO QHS 03/11/24 1 History nifedipine 90 mg tablet,extended 90 mg PO DAILY 03/10/24 History release phenobarbital 60 mg tablet 60 mg PO TUFR seizures 08/0303/10/24 History escitalopram oxalate 10 mg tablet 10 mg PO DAILY #0 ta bs 03/16/24 Unknown Rx albuterol sulfate 90 mcg/actuation 2 puff inhalation Q 4H PRN 08/13/24 Unknown History aerosol inhaler shortness of breath or wheez ing ondansetron 4 mg disintegrating 4 mg PO Q4H PRN nausea and vomiting 08/13/24 Unknown History tablet pantoprazole 40 mg tablet,delayed 40 mg PO BID 5 Unknown History release (Protonix) quetiapine 100 mg tablet 100 mg PO QHS 08/13/24 Unkno wn History triamcinolone acetonide 0.1 % 1 applic topical Q8 PRN itching 08/13/24 Unknown History topical cream Allergy/AdvReac Type Severity Reaction Status Date / Time amoxicillin Allergy NEEDS Verified 03/11/24 08:36 FOLLOW-UP codeine Allergy Shortness Verified 03/11/24 08:36 of breath cyclobenzaprine (From Allergy NEEDS Verified 03/11/24 08:36 Flexeril) FOLLOW-UP dextromethorphan HBr (From Allergy Shortness Verified 03/11/24 08:36 Tylenol Cold Multi-Symptom) of breath diazepam (From Valium) Allergy Shortness Verified 03/11/24 08:36 of breath fluticasone (From Advair Allergy NEEDS Verified 03/11/24 08:36 Diskus) FOLLOW-UP Food Allergies: Uncoded Allergy Shortness Verified 03/11/24 08:36 of breath guaifenesin (From Tylenol Allergy Shortness Verified 03/11/24 08:36 Cold Multi-Symptom) of breath hydrocodone bitartrate (From Allergy Shortness Verified 03/11/24 08:36 Vicodin) of breath iodine Allergy Anaphylaxis Verified 03/11/24 08:36 Latex, Natural Rubber Allergy Shortness Verified 03/11/24 08:36 of breath morphine Allergy Shortness Verified 03/11/24 08:36 of breath NSAIDS (Non-Steroidal Allergy Shortness Verified 03/11/24 08:36 Anti-Inflamma of breath oxaprozin (From Daypro) Allergy NEEDS Verified 03/11/24 08:36 FOLLOW-UP oxycodone Allergy NEEDS Verified 03/11/24 08:36 FOLLOW-UP phenylephrine HCl (From Allergy Shortness Verified 03/11/24 08:36 Tylenol Cold Multi-Symptom) of breath phenytoin (From Dilantin) Allergy NEEDS Verified 03/11/24 08:36 FOLLOW-UP phenytoin sodium (From Allergy Shortness Verified 03/11/24 08:36 Dilantin) of breath phenytoin sodium extended Allergy Shortness Verified 03/11/24 08:36 (From Dilantin) of breath povidone-iodine (From Allergy BLISTERS Verified 03/11/24 08:36 Betadine) pseudoephedrine HCl (From Allergy Shortness Verified 03/11/24 08:36 Tylenol Cold Multi-Symptom) of breath salmeterol (From Advair Allergy NEEDS Verified 03/11/24 08:36 Diskus) FOLLOW-UP shellfish derived Allergy NEEDS Verified 03/11/24 08:36 FOLLOW-UP soap (From Betadine) Allergy BLISTERS Verified 03/11/24 08:36 tetracycline Allergy NEEDS Verified 03/11/24 08:36 FOLLOW-UP tositumomab iodine-131 Allergy NEEDS Verified 03/11/24 08:36 FOLLOW-UP muscle relaxers Allergy Shortness Uncoded 05/22/23 11:04 of breath Family History (Updated 08/13/24 @ 20:[address] Ibeth Parker MD) Mother CVA (cerebral vascular accident) Cancer Depression Diabetes Emphysema lung Hypertension Arthritis Father CVA (cerebral vascular accident) Cancer Depression Diabetes Emphysema lung Hypertension Arthritis Surgical History History of cholecystectomy History of tonsillectomy History of total hysterectomy History of total knee replacement History of bilateral tympanoplasty History of tubal ligation History of D&C Social History (Updated 08/13/24 @ 20:[address] Ibeth Parker MD) household members: none housing: prison Smoking Status: Never smoker second hand exposure: Yes alcohol intake: never substance use type: does not use what type of physical activity do you participate in: walking do you feel safe at home: Yes ROS ROS Narrative Admission Review of Systems: CONSTITUTIONAL: No weight loss, + fever, chills, weakness or fatigue. HEENT: + Congestion, rhinorrhea. Eyes: No visual loss, blurred vision, double vision or yellow sclerae. Ears, Nose, Throat: No hearing loss, sneezing. SKIN: No rash or itching, lesions, wounds. CARDIOVASCULAR: + Orthopnea. No chest pain, chest pressure or chest discomfort, palpitations, edema, syncopal events. RESPIRATORY: + Dyspnea, cough, concern aspiration event concurrently, moist cough. No wheezing, hemoptysis. GASTROINTESTINAL: + Anorexia, nausea, vomiting. No diarrhea, abdominal pain, melena, BRBPR. GENITOURINARY: No dysuria, frequency, urgency or retention. NEUROLOGICAL: No headache, dizziness, syncope, paralysis, ataxia, numbness or tingling in the extremities, focal weakness, change in bowel or bladder control,seizure. MUSCULOSKELETAL: + muscle, back pain, joint pain or stiffness. HEMATOLOGIC: + Chronic anemia, easy bleeding/bruising. LYMPHATICS: No enlarged nodes. No history of splenectomy. PSYCHIATRIC: + History of anxiety and depression/mood disorder/schizophrenia. ENDOCRINOLOGIC: No reports of sweating, cold or heat intolerance. No polyuria orpolydipsia. ALLERGIES: + History of asthma, allergic rhinitis. Vital Signs Vital Signs Vital Signs: 08/13/24 15:38 08/13/24 15:38 08/13/24 15:42 Temperature 101 F H 101 F H Temperature Source Axillary Axillary Pulse Rate 97 94 Respiratory Rate 26 H 22 H Respiratory Effort Short of Breath Respiratory Pattern Tachypnea Blood Pressure 87/58 L 87/58 L Blood Pressure Mean 67 67 Pulse Ox 80 86 Oxygen Delivery Method Room Air Nasal Cannula Oxygen Flow Rate (L/min) 6 Fraction of Inspired Oxygen (FIO2) 08/13/24 15:43 08/13/24 16:38 08/13/24 17:01 Temperature Temperature Source Pulse Rate 86 Respiratory Rate 25 H Respiratory Effort Respiratory Pattern Normal Blood Pressure 82/56 L Blood Pressure Mean 64 Pulse Ox 89 90 Oxygen Delivery Method Nasal Cannula High Flow Oxygen Flow Rate (L/min) 6 15 Fraction of Inspired Oxygen (FIO2) 86 70 08/13/24 17:01 08/13/24 18:04 08/13/24 18:47 Temperature Temperature Source Pulse Rate 82 80 81 Respiratory Rate 19 H 21 H 19 H Respiratory Effort Respiratory Pattern Normal Blood Pressure 75/51 L 79/60 L Blood Pressure Mean 59 66 Pulse Ox 93 94 94 Oxygen Delivery Method Bi-pap Bi-pap Oxygen Flow Rate (L/min) Fraction of Inspired Oxygen (FIO2) 70 08/13/24 19:05 08/13/24 19:05 Temperature 98.8 F Temperature Source Axillary Pulse Rate 82 82 Respiratory Rate 21 H 21 H Respiratory Effort Respiratory Pattern Blood Pressure 84/59 L 84/59 L Blood Pressure Mean 67 67 Pulse Ox 95 96 Oxygen Delivery Method Bi-pap Bi-pap Oxygen Flow Rate (L/min) Fraction of Inspired Oxygen (FIO2) Weight Weight: 313 lb 11.485 oz Body Mass Index (BMI) 55.5 Physical Exam Narrative Physical Examination: General: Awake, alert, oriented to self, place and events but difficult evaluation given BiPAP in place, respiratory distress seems to have improved perdiscussion with family present also. Skin: Normal color, normal turgor, no icterus, no cyanosis except occasional stage ecchymoses, abrasion, mild intertrigo. HEENT: AT/NC, EOMI, PERRLA, mildly dry MM, BiPAP in place, difficult to discern carotid bruit given referred sound from BiPAP and thickened neck, difficult to discern JVD given thickened neck. Lungs: Severely diminished, greater bases, mildly rhonchorous and coarse, rales potentially at the bases but difficult to discern given referred sounds with BiPAP, no wheezing. Heart: Currently regular rate and rhythm; no gallop, rub audible. Abdomen: Soft, morbidly obese, NTTP, distant BS, difficult to discern distentionand HSM given habitus. Extremities: No cyanosis, no clubbing, mild ankle not markedly pitting edema. Neurological: Patient awake, alert, oriented as noted, cognitive function suspect mildly decreased from baseline and also difficult assessment given underlying schizophrenia/mood disorder also with previous history of CVA, pupilsequally reactive to light and accommodation, cranial nerves gross normal, movingall 4 extremities, strength severely globally decreased. Psychiatric: Affect appears flat, fatigued, ill-appearing, no acute evidence of depressive or anxiety feelings but does have underlying history. Results Lab / Micro Data 08/13/24 15:50 08/13/24 15:50 Labs: Laboratory Results - last 24 hr 08/13/24 15:50: WBC 15.0 H, RBC 3.70 L, Hgb 11.9 L, Hct 36.2 L, MCV 97.8, MCH 32.2 H, MCHC 32.9, RDW Std Deviation 56.1 H, RDW Coeff of [place] 15.8 H, Plt Count 188, MPV 10.5, Immature Gran % (Auto) 0.300, Neut % (Auto) 90.8 H, Lymph % (Auto) 3.6 L, [place] % (Auto) 5.2, Eos % (Auto) 0.0, Baso % (Auto) 0.1, Absolute Neuts (auto) 13.6 H, Absolute Lymphs (auto) 0.54 L, Nucleated RBC % 0.1, PT 14.8, INR 1.1, APTT 40.2 H, Sodium 138, Potassium 4.3, Chloride 98, Carbon Dioxide 23.7, Anion Gap 17 H, BUN 29 H, Creatinine 1.48 H, Estim Creat Clear Calc 45.10 L, Est GFR (MDRD) Non-Af 37 L, BUN/Creatinine Ratio 19.5, Glucose 149H, Lactic Acid 3.1 H*, Calcium 9.2, Total Bilirubin 0.27, AST 27, ALT 17, Alkaline Phosphatase 130 H, Troponin T High Sens 317 H*, NT pro BNP II 3099 H, Total Protein 7.4, Albumin 3.9, Globulin 3.5, Albumin/Globulin Ratio 1.1 08/13/24 16:10: Urine Color Yellow, Urine Clarity Sl. Cloudy, Urine pH 6.0, Ur Specific [place] 1.015, Urine Protein 30 H, Urine Glucose (UA) Normal, Urine Ketones Negative, Urine Occult Blood 50 H, Urine Nitrite Negative, Urine Bilirubin Negative, Urine Urobilinogen Normal, Ur Leukocyte Esterase 500 H, Urine RBC 0-5 SEEN, Urine WBC 50-100 SEEN, Ur Squamous Epith Cells 0-5 SEEN, Urine Bacteria 3+, Urine Mucus 0 SEEN Imaging Radiology Impression Chest X-Ray 08/13/24 16:35 IMPRESSION: Suspicion of bilateral pulmonary venous congestion. Reading Location: [place] [address] Assessment & Plan Assessment/Plan (1) Septic shock: PLAN: Plan The patient is a 74 y/o F w/ PMHx: Morbid obesity, Seizure disorder/epilepsy, MARY, COPD/Asthma, Hx CVA, GERD, Hypothyroidism, Chronic anemia, HTN, HLD, Rheumatoid arthritis, Anxiety and Depression/Schizophrenia, CKD stage II per prior GFR trending who presents to the [facility] ED on 08/13/2024 with history of fatigue, malaise with onset of nausea and bout of emesis while laying down earlier in the evening with onset significant dyspnea, hypoxia following with recent positive flu status Saturday (congestion, rhinorrhea, cough, fatigue) status prompting ED evaluation. #1. Acute Hypoxic Respiratory Failure, multifactorial, secondary to Acute Septic Shock secondary to Acute Aspiration Event with recent Acute Influenza A Syndrome diagnosis in addition to Acute Complicated UTI w/ evidence of sepsis-induced organ dysfunction/tissue hypoperfusion and sepsis induced hypotension with inability to utilize sepsis protocol hydration given overload as noted #2 complicated by demand ischemia with elevated cardiac enzyme, acute kidney injury: Will admit patient to the ICU, will continue BiPAP cautiously given recent history of emesis swelling down and will immediately obtain stat ABG now,will consult supervising film or videotape editor per protocol, maintain on cardiac monitoring, continue to maintain on cardiac monitoring, maintain on norepinephrine therapy, continue central line care per protocol, will defer tamiflu given timeline of diagnosis/symptoms, maintain on IV abx regimen w/ vancomycin, rocephin, flagyl given previous history of MRSA positive status with concern for aspiration with de-escalation as able, urine antigens as well as full respiratory viral panel and COVID/influenza/RSV requested to ensure no coinfection with recent influenzareported infection, maintain on ATC duoneb therapy, as needed albuterol, blood culture x 2 pending per ED, urine culture pending per ED, continue treatment as noted #2, #3, evaluation of #4, PT/OT/case management consulted for discharge planning. #2. Acute Decompensated HF, unclear type complicated by acute presentation #1 and elevated cardiac enzymes suspected secondary to demand as noted below: CXR obtained in the ED w/ evidence of congestion. Unfortunately patient significantly hypertensive with septic shock thus deferred diuresis, will continue pressor therapy and pulse dose Lasix as able, maintain on cardiac telemetry, continue to obtain cardiac enzyme series, obtain serial EKGs, monitorI/Os, continue medical therapy w/ plavix, obtain TSH and magnesium level and FLP. Echocardiogram requested. Cardiology consulted, pending. #3. Elevated cardiac enzyme, suspected demand secondary to acute presentation #1, #2: EKG in ED w/ sinus rhythm with no acute evidence of ischemia, CXR w/ bilateral venous congestion evident. Trop elevated, 317. Will maintain on a monitored bed, continue serial cardiac enzymes and EKGs. Obtain magnesium level upon admission. Initiate and maintain on heparin drip. Continue medical management w/ plavix, statin w/ AM FLP. ECHO requested. Cardiology consulted. #4. Acute kidney injury on CKD stage II per previous GFR trending: Secondary toacute presentation as noted #1 with hypoperfusion. Admission BUN/Cr 29/1.48, GFR37, prior baseline creatinine noted to be primarily 0.5-0.8. Given acute presentation with overload concurrently will avoid hydration, unfortunately willneed to continue to diurese while also maintaining on pressor therapy, holding all nephrotoxic medication, continue treatment of UTI as noted, ensure no urinary retention present, if necessary will obtain FeNa assessment/bladder/renal ultrasound and involve nephrology if needed. #5. Chronic normocytic anemia: Admission: 1.9, MCV 97.8, baseline hemoglobin more recently 10 range, has vacillated certainly from 9-11, continue to trend. #6. Rheumatoid arthritis: Per current list does not appear to be on chronic regimen, clarifying to be certain. #7. History CVA: Will continue Plavix, statin, holding all hypertensive regimengiven hypotension as noted. #8. Hypothyroidism: We will continue patient on levothyroxine regimen, TSH requested. #9. Hypertension: As noted significant hypotension with shock presentation, holding all regimen, add back once appropriate. #10. Hyperlipidemia: Continue home statin regimen. AM FLP. #11. Seizure disorder/epilepsy: We will continue patient home with significant phenobarbital regimen orally as able however if necessary may transition to IV, also on twice daily clonazepam which likely is for mood but will hold her sedation if necessary. #12. Anxiety and depression/mood disorder/schizophrenia: We will continue patient home psychiatric regimen however with hold parameters as needed for sedation and ulceration pending renal function, including clonazepam, escitalopram, paliperidone, quetiapine. #13. Chronic COPD/asthma: Complicates presentation, as noted above maintained on BiPAP currently, wean as able, maintain on ATC duonebs, PRN albuterol, HOB, IS parameters. #14. Chronic normocytic anemia: Admission hemoglobin 1.9, MCV 97.8, baseline hemoglobin primarily 9-10, stable, continue to trend. #15. Morbid Obesity: Weight loss and lifestyle changes encouraged. #16. MARY: Usually uses CPAP nightly, currently on BiPAP as noted. #17. GERD: Will maintain on PPI. #18. DVT prophylaxis: Will maintain on heparin drip as noted. #19. CODE status: Patient PETER is her sister who is present and living will iscurrently in place. Discussed CODE status at length including difference betweenFULL code, DNR-CCA and DNR-CC status. Following discussions about the differences in these status, requested DNR-CCA, no intubation. Amenable to pressor therapy. Advanced Care Planning Face to Face Time: 16 minutes. Sepsis Attestation Sepsis Attestation: Agree w/Sepsis Date exam was performed: 08/13/24 Time exam was performed: 21:03 Possible Source of Sepsis: Pulmonary and Genitourinary Sepsis Organ Dysfunction Criteria Present: SBP < 90 mmHg or MAP < 65 mmHg, SBP decrease of more than 40 mmHg, Acute Respiratory Failure (New need for BiPAP/CPAP or MV) and Lactic Acid > 2 mmol/L Fluid Resuscitation Fluid resuscitation indicated?: Yes Fluid Resuscitation ordered: Lesser volume fluid bolus ordered Amount of fluid ordered: 2,500 Reason for lesser fluid bolus:: Concern for fluid overload Sepsis Note Date exam was performed: 08/13/24 Time exam was performed: 21:03 Sepsis Attestation: Sepsis re-evaluation was performed Response to fluids: Non Fluid responsive hypotension and Vasopressors started Charges/Coding Visit Charges Inpatient E&M: 43145 Init Hosp L3 Procedures Hospitalists Procedures: 69929 Advncd Care Plan 30 Min 08/13/242102 <Electronically signed by Ibeth Parker MD> Cosigner Signature (if applicable): CC: Dr. Ibeth Parker MD; Dr. Panda Littlejohn MD~ Signed [facility] Work Phone: [phone] Consult note [facility] Medical Records Department [address] [place] [address] Consultation - Mail Processing Associate 08/13/242103 MR#: [id number] Acct: [id number] Name: ADRIENNE MORRISON Rep #:[id number] : 1950 74 From: Paresh Brunson MD PCP: Dr. Panda Littlejohn MD Status:ADM IN Location: ICU ICU03-1 HPI Consult Data Date of Consult: 08/13/24 HPI Narrative Reason for Consultation: Hypoxemic respiratory failure, septic shock HPI Narrative: ADRIENNE MORRISON, is a 74yo with chief complaint of fever and chills. In context, patient states she felt like she had a spell of Afib coming on from stress related to her sister undergoing colonoscopy. Otherwise reports typical flu symptoms. Living at SNF ~ 1year, nurses checked her vitals there and sent her to ED, but patient threw up in transport to ED. CUrrently denies n/v, has had poor PO intake in general in last 2 days, and has not drank much water (1/2 cup today). Feesl thirsty and denies CHF and leg swelling. No CP. Has been having sweats and chills as well. Per Onsite Hospitalist HPI: 74 y/o F w/ PMHx: Morbid obesity, Seizure disorder/epilepsy, MARY, COPD/Asthma, Hx CVA, GERD, Hypothyroidism, Chronic anemia, HTN, HLD, Rheumatoid arthritis, Anxiety and Depression/Schizophrenia, CKD stage II per prior GFR trending who presents to the [facility] ED on 08/13/2024 with history of fatigue, malaise with onset of nausea and bout of emesis while layingdown earlier in the evening with onset significant dyspnea, hypoxia following with recent positive flu status Saturday (congestion, rhinorrhea, cough, fatigue)status prompting ED evaluation. Workup in the ED included T101 axillary, heart rate 97, BP initially 87/58 with MAP of 67, respiratory rate 26, initially 80% on room air with improvement to initially 86% on 6 L placed on BiPAP with BP decreased to 75/51 transiently with most recent repeat vitals heart rate 81, BP 79/60, respiratory rate 19, 94% on 70% [id number], CBC with WBC 15, hemoglobin 0.9, MCV 97.8, platelets 188 with left shift and lymphopenia, coa gs unremarkableaside PTT 40.2, CMP with anion gap 17, BUN/creatinine 29/1.48, GFR 37, glucose 149, lactic acid 3.1, alk phos 130, troponin 317, BNP 3099, urinalysis with specific gravity 1.015, cloudy, protein 30, occult blood 50, negative nitrite, leukocyte esterase 500 however with urine WBCs 50-100 with 3+ urine bacteria, chest x-ray suspicious for bilateral venous congestion, urine culture pending per ED, blood culture x 2 pending per ED. from review of prior micro records patient does havepositive previous MRSA screen 03/12/2024. In the ED patient ministered Tylenol 1000 mg p.o. x 1, cefepime 2 g IV x 1, vancomycin 2001 g IV x1, Zofran 4 mg IV x 1 and initiated on norepinephrine drip. ED discussed case with cardiology and heparin drip was also initiated. In the ED prior to HF concerns noted she was administered 2.5L NS resuscitation. [facility] Medical History Epilepsy Hammer toes of both feet Cerebrovascular disease Age related cataract Wears glasses Wears hearing aid Rash Walker as ambulation aid Easy bruising History of diverticulitis Gastric reflux Non-smoker Shortness of breath on exertion Vericose veins History of CVA (cerebrovascular accident) Seizure disorder Thyroid disorder Rheumatoid arthritis Diverticulitis Sleep apnea COPD (chronic obstructive pulmonary disease) Diabetes mellitus type 2 in obese Benign essential hypertension Convulsion Osteoarthritis Hypothyroid TIA (transient ischemic attack) Hypercholesterolemia Anemia in chronic illness Allergic rhinitis Glaucoma Morbid obesity Peripheral venous insufficiency GERD (gastroesophageal reflux disease) Asthma Schizophrenia Depression Anxiety disorder Hyperlipidemia Hypertension Home Medications ?Medication ?Instructions ?Recorded ?Last Taken ?Type clopidogrel 75 mg tablet 75 mg PO DAILY 03/28/1307/03 History hydrochlorothiazide 25 mg tablet 25 mg PO DAILY ##0 03/10/24 History metoprolol succinate 100 mg 100 mg PO DAILY 03/28/13 0 12/19/20 History tablet,extended release 24 hr paliperidone 6 mg tablet,extended 6 mg PO QHS 01/31/03/10/24 History release 24 hr montelukast 10 mg tablet 10 mg PO QHS #90 tabs 03/10/24 Rx albuterol sulfate 2.5 mg/3 mL 2.5 mg inhalation DAILY PRN 11/27/23 Unknown History (0.083 %) solution for nebulization shortness of breat h or wheezing atorvastatin 20 mg tablet 20 mg PO QHS 11/27/23 History clonazepam 0.5 mg tablet 0.5 mg PO BID 11/27/2303/10 History fluticasone propionate 220 2 inh inhalation BID 03/10/24 History mcg/actuation HFA aerosol inhaler latanoprost 0.005 % eye drops 1 drp ophthalmic (eye) Q HS 11/27/23 03/10/24 History losartan 50 mg tablet 50 mg PO DAILY 11/27/2307/03 History phenobarbital 60 mg tablet 120 mg PO 0800 11/27/23 Unk nown History phenobarbital 60 mg tablet 180 mg PO SUMOWETHSA seizur es 11/27/23 Unknown History polyethylene glycol 3350 17 17 g PO DAILY PRN CONSTIPA TION 11/27/23 03/10/24 History gram/dose oral powder (Miralax) propylene glycol 1 %-glycerin 0.3 2 drp ophthalmic (ey e) Q4H PRN dry 11/27/23 Unknown History % eye drops (Artificial Tears eye(s) (glycerin-peg)) acetaminophen 500 mg tablet 500 mg PO Q6H PRN pain 08/0303/10/24 History cholecalciferol (vitamin D3) 25 50 mcg PO DAILY Unknown History mcg (1,000 unit) tablet levothyroxine 200 mcg tablet 200 mcg PO QHS 03/11/24 1 History nifedipine 90 mg tablet,extended 90 mg PO DAILY 03/10/24 History release phenobarbital 60 mg tablet 60 mg PO TUFR seizures 08/0303/10/24 History escitalopram oxalate 10 mg tablet 10 mg PO DAILY #0 ta bs 03/16/24 Unknown Rx albuterol sulfate 90 mcg/actuation 2 puff inhalation Q 4H PRN 08/13/24 Unknown History aerosol inhaler shortness of breath or wheez ing ondansetron 4 mg disintegrating 4 mg PO Q4H PRN nausea and vomiting 08/13/24 Unknown History tablet pantoprazole 40 mg tablet,delayed 40 mg PO BID 5 Unknown History release (Protonix) quetiapine 100 mg tablet 100 mg PO QHS 08/13/24 Unkno wn History triamcinolone acetonide 0.1 % 1 applic topical Q8 PRN itching 08/13/24 Unknown History topical cream Allergy/AdvReac Type Severity Reaction Status Date / Time amoxicillin Allergy NEEDS Verified 03/11/24 08:36 FOLLOW-UP codeine Allergy Shortness Verified 03/11/24 08:36 of breath cyclobenzaprine (From Allergy NEEDS Verified 03/11/24 08:36 Flexeril) FOLLOW-UP dextromethorphan HBr (From Allergy Shortness Verified 03/11/24 08:36 Tylenol Cold Multi-Symptom) of breath diazepam (From Valium) Allergy Shortness Verified 03/11/24 08:36 of breath fluticasone (From Advair Allergy NEEDS Verified 03/11/24 08:36 Diskus) FOLLOW-UP Food Allergies: Uncoded Allergy Shortness Verified 03/11/24 08:36 of breath guaifenesin (From Tylenol Allergy Shortness Verified 03/11/24 08:36 Cold Multi-Symptom) of breath hydrocodone bitartrate (From Allergy Shortness Verified 03/11/24 08:36 Vicodin) of breath iodine Allergy Anaphylaxis Verified 03/11/24 08:36 Latex, Natural Rubber Allergy Shortness Verified 03/11/24 08:36 of breath morphine Allergy Shortness Verified 03/11/24 08:36 of breath NSAIDS (Non-Steroidal Allergy Shortness Verified 03/11/24 08:36 Anti-Inflamma of breath oxaprozin (From Daypro) Allergy NEEDS Verified 03/11/24 08:36 FOLLOW-UP oxycodone Allergy NEEDS Verified 03/11/24 08:36 FOLLOW-UP phenylephrine HCl (From Allergy Shortness Verified 03/11/24 08:36 Tylenol Cold Multi-Symptom) of breath phenytoin (From Dilantin) Allergy NEEDS Verified 03/11/24 08:36 FOLLOW-UP phenytoin sodium (From Allergy Shortness Verified 03/11/24 08:36 Dilantin) of breath phenytoin sodium extended Allergy Shortness Verified 03/11/24 08:36 (From Dilantin) of breath povidone-iodine (From Allergy BLISTERS Verified 03/11/24 08:36 Betadine) pseudoephedrine HCl (From Allergy Shortness Verified 03/11/24 08:36 Tylenol Cold Multi-Symptom) of breath salmeterol (From Advair Allergy NEEDS Verified 03/11/24 08:36 Diskus) FOLLOW-UP shellfish derived Allergy NEEDS Verified 03/11/24 08:36 FOLLOW-UP soap (From Betadine) Allergy BLISTERS Verified 03/11/24 08:36 tetracycline Allergy NEEDS Verified 03/11/24 08:36 FOLLOW-UP tositumomab iodine-131 Allergy NEEDS Verified 03/11/24 08:36 FOLLOW-UP muscle relaxers Allergy Shortness Uncoded 05/22/23 11:04 of breath Family History Mother CVA (cerebral vascular accident) Cancer Depression Diabetes Emphysema lung Hypertension Arthritis Father CVA (cerebral vascular accident) Cancer Depression Diabetes Emphysema lung Hypertension Arthritis Surgical History History of cholecystectomy History of tonsillectomy History of total hysterectomy History of total knee replacement History of bilateral tympanoplasty History of tubal ligation History of D&C Social History household members: none housing: prison Smoking Status: Never smoker second hand exposure: Yes alcohol intake: never substance use type: does not use what type of physical activity do you participate in: walking do you feel safe at home: Yes ROS ROS Narrative 10 or more systems reviewed with the patient who denies all else besides in HPI. Objective Data Objective Data Vital Signs: Vital Signs Last response 3 Temperature 37.6 C H 08/13/24 20:49 Temperature Source Core 08/13/24 20:49 Pulse Rate 82 08/13/24 20:49 Respiratory Rate 18 08/13/24 20:49 Respiratory Effort Short of Breath 08/13/24 15:38 Respiratory Pattern Normal 08/13/24 20:46 Blood Pressure 99/67 08/13/24 20:49 Blood Pressure Mean 77 08/13/24 20:49 Blood Pressure Source Monitor 08/13/24 20:49 Blood Pressure Position Semi-Fowlers 08/13/24 20:49 Pulse Ox 96 08/13/24 20:49 Oxygen Delivery Method Bi-pap 08/13/24 20:49 Oxygen Flow Rate (L/min) 15 08/13/24 16:38 Fraction of Inspired Oxygen (FIO2) 50 08/13/24 20:46 I&O: I&O Last 24 Hours 3 08/12/24 08/13/24 08/13/24 23:59 11:59 23:59 Intake Total 3140 / 3140 Balance 3140 / 3140 I&O: Total Stay 3 08/13/24 15:37 thru 08/13/24 20:49 Intake Total 3140 Balance 3140 Current Meds Ordered / Administered: Current meds ordered / Administered 3 Generic Name Dose Route Start Last Admin Trade Name Freq PRN Reason Stop Dose Admin Acetaminophen 650 mg 08/13/24 20:54 Acetaminophen 325 Mg Tablet PO Q4H PRN PRN Fever, pain 1-10/10 Acetaminophen 650 mg 08/13/24 20:54 Acetaminophen 650 Mg Suppository RC Q4H PRN PRN Fever, pain 1-10 Al Hydroxide/Mg Hydroxide 30 ml 08/13/24 20:54 Mag Hydrox/Al Hydrox/Simeth 30 Ml Udc PO Q6H PRN PRN Gastric Burning Albuterol Sulfate 2.5 mg 08/13/24 20:54 Albuterol 2.5 Mg/3 Ml Vial.Neb. INHALATION Q2H PRN PRN Dyspnea, wheezing Albuterol/Ipratropium 3 ml 08/13/24 20:54 Ipratropium/Albuterol Sulfate 3 Ml Ampul.Neb INHALATION Q4HWA.RT JEFFREY Atorvastatin Calcium 20 mg 08/13/24 22:00 Atorvastatin Calcium 20 Mg Tablet PO QHS [facility] Calamine/Phenol 1 applic 08/13/24 22:00 Menthol/Lanolin/Calamine/Znox 113 Gm Tube TOPICAL 4X/DAY [facility] Protocol Clonazepam 0.5 mg 08/13/24 22:00 Clonazepam 0.5 Mg Tablet PO BID [facility] Clopidogrel Bisulfate 75 mg 08/14/24 10:00 Clopidogrel Bisulfate 75 Mg Tablet PO DAILY [facility] Escitalopram Oxalate 10 mg 08/14/24 10:00 Escitalopram Oxalate 10 Mg Tablet PO DAILY [facility] Heparin Sodium (Porcine) 0 unit 08/13/24 21:05 Heparin Injection (Vial) 5,000 Unit/Ml Vial IV UD PRN dose adjustment Protocol Sodium Chloride 100 mls @ 15 mls/hr 08/13/24 20:51 IV .Q6H40M PRN Saline Flush Sodium Chloride 100 mls @ 15 mls/hr 08/13/24 20:51 IV .Q6H40M PRN Additional IVPB Infusion Norepinephrine Bitartrate 8 mg 250 mls @ 9.375 mls/hr 08/13/24 20:54 / Sodium Chloride CONT INF .[id number] [facility] Protocol 5 MCG/MIN Heparin Sodium/Dextrose 25,000 units in 250 mls @ 18 mls/hr 08/13/24 20:54 CONT INF .[id number] [facility] Protocol As Directed Vancomycin IV-PHARMACY TO DOSE 500 mls @ 250 mls/hr 08/13/24 20:54 1 each/ Sodium Chloride IV X1 PRN Rx to Dose Protocol Ceftriaxone Sodium 2 gm/ 50 mls @ 100 mls/hr 08/14/24 10:00 Sodium Chloride IV 08/21/24 10:01 Q24 [facility] Metronidazole 500 mg in 100 mls @ 100 mls/hr 08/13/24 22:00 Flagyl IV Q8 [facility] Latanoprost 1 drp 08/13/24 22:00 Latanoprost 0.005% 1 Bottle OPHTHALMIC QHS [facility] Melatonin 3 mg 08/13/24 20:54 Melatonin 3 Mg Tablet PO QHS PRN PRN INSOMNIA Montelukast Sodium 10 mg 08/13/24 22:00 Montelukast 10 Mg Tablet PO QHS [facility] Non-Formulary Medication 2 drp 08/13/24 20:54 Propylene Glycol-Glycerin [Artificial Tears(Glycerin-Peg)] OPHTHALMIC Q4H PRN dry eye(s) Non-Formulary Medication 17 gm 08/13/24 20:54 Polyethylene Glycol 3350 [Miralax] PO DAILY PRN CONSTIPATION Non-Formulary Medication 60 mg 08/14/24 20:30 Phenobarbital PO TUFR [facility] Non-Formulary Medication 180 mg 08/13/24 20:54 Phenobarbital PO SUMOWETHSA [facility] Non-Formulary Medication 120 mg 08/14/24 08:00 Phenobarbital PO 0800 JEFFREY Non-Formulary Medication 6 mg 08/13/24 22:00 Paliperidone PO QHS [facility] Non-Formulary Medication 200 mcg 08/13/24 22:00 Levothyroxine PO QHS [facility] Non-Formulary Medication 2 inh 08/13/24 22:00 Fluticasone Propionate INHALATION BID [facility] Nystatin 1 applic 08/13/24 22:00 Nystatin Powder 15gm Bottle TOPICAL TID [facility] Protocol Ondansetron HCl 4 mg 08/13/24 20:54 Ondansetron 4 Mg/2 Ml Vial IV Q8H PRN PRN NAUSEA/VOMITING Pantoprazole Sodium 40 mg 08/13/24 22:00 Pantoprazole Sodium 40 Mg Tablet PO BID [facility] Prochlorperazine Edisylate 5 mg 08/13/24 20:54 Prochlorperazine 10 Mg/2 Ml Vial IV Q4H PRN PRN Breakthrough Nausea/Vomiting Quetiapine Fumarate 100 mg 08/13/24 22:00 Quetiapine 100 Mg Tablet PO QHS [facility] Protocol Senna/Docusate Sodium 2 tablet 08/13/24 20:54 Senna/Docusate Sodium 1 Tablet PO BID PRN PRN Constipation Sodium Chloride 10 - 40 ml 08/13/24 20:51 0.9% Saline Lock 10 Ml Syringe IV UD PRN SALINE FLUSH Physical Exam Const alert, oriented x3 and no apparent distress General Appearance: cooperative, well developed and ill appearing HEENT normocephalic and head/scalp atraumatic Throat: posterior oropharynx normal Eyes PERRL, EOMs intact bilaterally, conjunctivae normal and no scleral icterus Neck full ROM and no JVD Lymph Lymphatic: no lymphadenopathy noted Chest inspection of chest normal Resp normal respiratory effort and no use of accessory muscles Effort and Inspection: able to speak in complete sentences Auscultation: clear to auscultation bilaterally Cardio regular rate and regular rhythm GI normal to inspection, nondistended, normoactive bowel sounds, soft to palpation and non-tender Back/Spine no CVA tenderness Extremity no clubbing, cyanosis or edema Skin no rashes or lesions noted Neuro oriented x3, CN's II-XII intact bilaterally, moves all extremities and no focal motor deficits Psych cooperative and affect normal Speech: normal speech Lab / Micro Data 08/13/24 15:50 08/13/24 15:50 Labs: Laboratory Results - last 24 hr 08/13/24 15:50: WBC 15.0 H, RBC 3.70 L, Hgb 11.9 L, Hct 36.2 L, MCV 97.8, MCH 32.2 H, MCHC 32.9, RDW Std Deviation 56.1 H, RDW Coeff of [place] 15.8 H, Plt Count 188, MPV 10.5, Immature Gran % (Auto) 0.300, Neut % (Auto) 90.8 H, Lymph % (Auto) 3.6 L, [place] % (Auto) 5.2, Eos % (Auto) 0.0, Baso % (Auto) 0.1, Absolute Neuts (auto) 13.6 H, Absolute Lymphs (auto) 0.54 L, Nucleated RBC % 0.1, PT 14.8, INR 1.1, APTT 40.2 H, Sodium 138, Potassium 4.3, Chloride 98, Carbon Dioxide 23.7, Anion Gap 17 H, BUN 29H, Creatinine 1.48 H, Estim Creat Clear Calc 45.10 L, Est GFR (MDRD) Non-Af 37 L, BUN/Creatinine Ratio 19.5, Glucose 149 H, Lactic Acid 3.1 H*, Calcium 9.2, Total Bilirubin 0.27, AST 27, ALT 17, Alkaline Phosphatase 130 H, Troponin T High Sens 317 H*, NT pro BNP II 3099 H, Total Protein 7.4, Albumin 3.9, Globulin 3.5, Albumin/Globulin Ratio 1.1 08/13/24 16:10: Urine Color Yellow, Urine Clarity Sl. Cloudy, Urine pH 6.0, Ur Specific [place] 1.015, Urine Protein 30 H, Urine Glucose (UA) Normal, Urine Ketones Negative, Urine Occult Blood 50 H, Urine Nitrite Negative, Urine Bilirubin Negative, Urine Urobilinogen Normal, Ur Leukocyte Esterase 500 H, Urine RBC 0-5 SEEN, Urine WBC 50-100 SEEN, Ur Squamous Epith Cells 0-5 SEEN, Urine Bacteria 3+, Urine Mucus 0 SEEN 08/13/24 19:12: Troponin T Hi Sens 2 Hr 427 H* ABG Data ABG results: ABG 08/13/24 19:53 Specimen Type ART Sample Site L Radial pH 7.32 L Bicarbonate Actual 25.7 Total CO2 27 Base Excess -1 O2 Saturation 97 O2 % 70.0 ABG pCO2 50.4 H ABG pO2 98 Tera Test Positive O2 Delivery Device BiPAP Vent Mode Not entered POC PEEP 9 Imaging Radiology Impression Chest X-Ray 08/13/24 16:35 IMPRESSION: Suspicion of bilateral pulmonary venous congestion. Reading Location: [place] [address] CXR reviewed personally Assessment and Plan . Assessment and plan: ICU Problem List: Aspiration of gastric contents Acute hypoxemic respiratory failure Acute hypercapnic respiratory failure Hypoventilation Septic shock Urinary tract infection Pulmonary edema Flu infection AC Plan: NPO and aspiration precautions Recommend going back to cefepime for broader coverage of aspiration (GNR) and UTI ECHOcardiogram recommended to assess IVC and LV function Would still recommend volume expansion with crystalloid or albumin 2/2 high lactic acid, ~500-1000mL total Dimer and if positive, CT PE protocol given enlarged cardiac silhouette and risk factors for VTE Within tamiflu window, need renal adjustment to dose Check TSH and reflex T4 Trend LA q4h until <2 Paresh Brunson MD P[facility] Critical Care Time: The entirety of this encounter was done via Telemedicine 08/13/242234 Cosigner Signature (if applicable): CC: Dr. Panda Littlejohn MD~ Signed [facility]03-06-2025 Evaluation note* Diagnosis Onset Date Resolution Status Admit Date Congestive heart failure acute August 13, 2024 7:28pm NSTEMI (non-ST elevated myocardial infarction) acute August 7:28pm Sepsis acute August 13 7:28pm Septic shock acute August 13, 025 7:28pm Super obesity acute August 13, 2024 7:28pm Type 2 PR (myocardial infarction) ac waldo August 13, 2024 7:28pm UTI (urinary tract infection) acute August 13, 2024 7:28pm Wheezing acute August 13 7:28pm [facility] Work Phone: [phone]) 176-144703-06-2025 Consult note [facility] Medical Records Department [address] [place] [address] Pharmacokinetic/Renal -Consult 08/13/242208 MR#: [id number] Acct: [id number] Name: ADRIENNE MORRISON Rep #:[id number] : 1950 74 From: Panda Powers od PCP: Dr. Panda Littlejohn MD Status:ADM IN Y Location: ICU ICU03-1 Consult Antibiotic Management Pharmacy has been consulted to manage selected antibiotic: Vancomycin Type of Intervention Type of Consult: New start Labs Labs: Sodium 138 mmol/L (133-145) 08/13/24 15:50 Potassium 4.3 mmol/L (3.3-5.1) 08/13/24 15:50 Chloride 98 mmol/L (98-108) 08/13/24 15:50 Carbon Dioxide 23.7 mmol/L (21.0-32.0) 08/13/24 15:50 Anion Gap 17 (5-15) H 08/13/24 15:50 BUN 29 mg/dL (4-19) H 08/13/24 15:50 Creatinine 1.48 mg/dL (0.70-1.20) H 08/13/24 15:50 Est GFR (MDRD) Non-Af 37 (>60) L 08/13/24 15:50 BUN/Creatinine Ratio 19.5 RATIO (10-20) 08/13/24 15:50 Glucose 149 mg/dL (70-99) H 08/13/24 15:50 Dosing Weight Weight used for dosin.8 kg Estimated Creatinine Clearance Estimated Creatinine Clearance: 45.1 Goal Trough Goal Trough: 15-20 mcg/mL Pharmacy Plan for Drug Dosing Pharmacy Plan for Drug Dosing: Pharmacy Service will continue to monitor and adjust dosing as required. 2000MG GIVEN IN ER 3/6 @ 1740. START 1000MG Q12H AND DRAW TROUGH PRIOR TO 4TH DOSE Follow-Up Labs Follow-Up Labs: Trough: Vancomycin Date/Time Labs Ordered Labs to be done on [date and time ordered]: 08/15 @ 0530 08/13/24 2210 lood> Date _ Panda Rock Cosigner Signature (if applicable): Date CC: ~ Signed [facility]03-06-2025 Discharge summary Author Segundo Juarez [facility] Note Date/Time August 13, 2024 7:00 pm [facility] Medical Records Department [address] [place] [address] Emergency Department Summary 08/13/24 MR#: [id number] Acct: [id number] Name: ADRIENNE MORRISON Rep #:[id number] : 1950 74 From: Segundo Juarez DO PCP: Dr. Panda Littlejohn MD Status:REG ER Location: ED ADDENDUM by Dr. Segundo Juarez DO on 08/13/24 at 1999 Discussed case with cardiology Dr. Saini and he states that you can give the patient aspirin this is likely type II myocardial infarction however without history of CHF can place the patient on heparin. Patient has a allergy history of shortness of breath with NSAIDs given the patient's respiratory status at this point time and her allergy we will hold off on the aspirin and will place her on heparin. I updated hospitalist Dr. Parker about our discussion. Patient did not require central line at this point time we will hold off and start heparin. Patient's CODE STATUS was confirmed with patient and daughter at bedside DNR CCA DNI. 08/13/241999<Electronically signed by Segundo Juarez DO> Cosigner Signature (if applicable): cc: Dr. Panda Littlejohn MD ~* Signed HPI History of Present Illness Chief Complaint: Shortness of Breath Narrative Narrative: Patient is a 74-year-old female with a past medical history of CVA, seizures, RA, MARY, COPD on 2 L nasal cannula at night, hypothyroidism,, GERD, schizophrenia, hypertension who presented to the emergency department with a chief complaint of cough shortness of breath. According to EMS when they arrived she was on 2 L and she was noted be hypoxic at 73% they placed her on 5 L got her to 80% and brought her here for the valuation management. There is concerned that she had aspiration earlier today as she vomited while she was laying down. She recently tested positive for influenza according to staff and EMS. Patient states that she feels short of breath [facility] Medical History Epilepsy Hammer toes of both feet Cerebrovascular disease Age related cataract Wears glasses Wears hearing aid Rash Walker as ambulation aid Easy bruising History of diverticulitis Gastric reflux Non-smoker Shortness of breath on exertion Vericose veins History of CVA (cerebrovascular accident) Seizure disorder Thyroid disorder Rheumatoid arthritis Diverticulitis Sleep apnea COPD (chronic obstructive pulmonary disease) Diabetes mellitus type 2 in obese Benign essential hypertension Convulsion Osteoarthritis Hypothyroid TIA (transient ischemic attack) Hypercholesterolemia Anemia in chronic illness Allergic rhinitis Glaucoma Morbid obesity Peripheral venous insufficiency GERD (gastroesophageal reflux disease) Asthma Schizophrenia Depression Anxiety disorder Hyperlipidemia Hypertension Home Medications ?Medication ?Instructions ?Recorded ?Last Taken ?Type clopidogrel 75 mg tablet 75 mg PO DAILY 03/28/1307/03 History hydrochlorothiazide 25 mg tablet 25 mg PO DAILY ##0 03/10/24 History metoprolol succinate 100 mg 100 mg PO DAILY 03/28/13 0 12/19/20 History tablet,extended release 24 hr paliperidone 6 mg tablet,extended 6 mg PO QHS 01/31/17 03/10/24 History release 24 hr montelukast 10 mg tablet 10 mg PO QHS #90 tabs 03/10/24 Rx albuterol sulfate 2.5 mg/3 mL 2.5 mg inhalation DAILY PRN 11/27/23 Unknown History (0.083 %) solution for nebulization shortness of breat h or wheezing atorvastatin 20 mg tablet 20 mg PO QHS 11/27/23 History clonazepam 0.5 mg tablet 0.5 mg PO BID 11/27/2303/10 History fluticasone propionate 220 2 inh inhalation BID 03/10/24 History mcg/actuation HFA aerosol inhaler latanoprost 0.005 % eye drops 1 drp ophthalmic (eye) Q HS 11/27/23 03/10/24 History losartan 50 mg tablet 50 mg PO DAILY 11/27/23 10/07/03 History phenobarbital 60 mg tablet 120 mg PO 0800 11/27/23 Unk nown History phenobarbital 60 mg tablet 180 mg PO SUMOWETHSA seizur es 11/27/23 Unknown History polyethylene glycol 3350 17 17 g PO DAILY PRN CONSTIPA TION 11/27/23 03/10/24 History gram/dose oral powder (Miralax) propylene glycol 1 %-glycerin 0.3 2 drp ophthalmic (ey e) Q4H PRN dry 11/27/23 Unknown History % eye drops (Artificial Tears eye(s) (glycerin-peg)) acetaminophen 500 mg tablet 500 mg PO Q6H PRN pain 08/0303/10/24 History cholecalciferol (vitamin D3) 25 50 mcg PO DAILY Unknown History mcg (1,000 unit) tablet levothyroxine 200 mcg tablet 200 mcg PO QHS 03/11/24 1 History nifedipine 90 mg tablet,extended 90 mg PO DAILY 03/10/24 History release phenobarbital 60 mg tablet 60 mg PO TUFR seizures 08/0303/10/24 History escitalopram oxalate 10 mg tablet 10 mg PO DAILY #0 ta bs 03/16/24 Unknown Rx albuterol sulfate 90 mcg/actuation 2 puff inhalation Q 4H PRN 08/13/24 Unknown History aerosol inhaler shortness of breath or wheez ing ondansetron 4 mg disintegrating 4 mg PO Q4H PRN nausea and vomiting 08/13/24 Unknown History tablet pantoprazole 40 mg tablet,delayed 40 mg PO BID 5 Unknown History release (Protonix) quetiapine 100 mg tablet 100 mg PO QHS 08/13/24 Unkno wn History triamcinolone acetonide 0.1 % 1 applic topical Q8 PRN itching 08/13/24 Unknown History topical cream Allergy/AdvReac Type Severity Reaction Status Date / Time amoxicillin Allergy NEEDS Verified 03/11/24 08:36 FOLLOW-UP codeine Allergy Shortness Verified 03/11/24 08:36 of breath cyclobenzaprine (From Allergy NEEDS Verified 03/11/24 08:36 Flexeril) FOLLOW-UP dextromethorphan HBr (From Allergy Shortness Verified 03/11/24 08:36 Tylenol Cold Multi-Symptom) of breath diazepam (From Valium) Allergy Shortness Verified 03/11/24 08:36 of breath fluticasone (From Advair Allergy NEEDS Verified 03/11/24 08:36 Diskus) FOLLOW-UP Food Allergies: Uncoded Allergy Shortness Verified 03/11/24 08:36 of breath guaifenesin (From Tylenol Allergy Shortness Verified 03/11/24 08:36 Cold Multi-Symptom) of breath hydrocodone bitartrate (From Allergy Shortness Verified 03/11/24 08:36 Vicodin) of breath iodine Allergy Anaphylaxis Verified 03/11/24 08:36 Latex, Natural Rubber Allergy Shortness Verified 03/11/24 08:36 of breath morphine Allergy Shortness Verified 03/11/24 08:36 of breath NSAIDS (Non-Steroidal Allergy Shortness Verified 03/11/24 08:36 Anti-Inflamma of breath oxaprozin (From Daypro) Allergy NEEDS Verified 03/11/24 08:36 FOLLOW-UP oxycodone Allergy NEEDS Verified 03/11/24 08:36 FOLLOW-UP phenylephrine HCl (From Allergy Shortness Verified 03/11/24 08:36 Tylenol Cold Multi-Symptom) of breath phenytoin (From Dilantin) Allergy NEEDS Verified 03/11/24 08:36 FOLLOW-UP phenytoin sodium (From Allergy Shortness Verified 03/11/24 08:36 Dilantin) of breath phenytoin sodium extended Allergy Shortness Verified 03/11/24 08:36 (From Dilantin) of breath povidone-iodine (From Allergy BLISTERS Verified 03/11/24 08:36 Betadine) pseudoephedrine HCl (From Allergy Shortness Verified 03/11/24 08:36 Tylenol Cold Multi-Symptom) of breath salmeterol (From Advair Allergy NEEDS Verified 03/11/24 08:36 Diskus) FOLLOW-UP shellfish derived Allergy NEEDS Verified 03/11/24 08:36 FOLLOW-UP soap (From Betadine) Allergy BLISTERS Verified 03/11/24 08:36 tetracycline Allergy NEEDS Verified 03/11/24 08:36 FOLLOW-UP tositumomab iodine-131 Allergy NEEDS Verified 03/11/24 08:36 FOLLOW-UP muscle relaxers Allergy Shortness Uncoded 05/22/23 11:04 of breath Family History Other Arthritis CVA (cerebral vascular accident) Cancer Depression Diabetes Emphysema lung Hypertension Surgical History History of cholecystectomy History of tonsillectomy History of total hysterectomy History of total knee replacement History of bilateral tympanoplasty History of tubal ligation History of D&C Social History Smoking Status: Never smoker second hand exposure: Yes alcohol intake: never substance use type: does not use what type of physical activity do you participate in: walking do you feel safe at home: Yes ROS ROS ED ROS Narrative Constitutional: Denies fevers, chills, headaches Eyes: Denies change in vision double vision blurry vision Cardiovascular: Denies chest pain or palpitations Respiratory: Complains cough and shortness of breath Abdomen: Complains of nausea denies abdominal pain vomiting diarrhea : Denies any urinary symptoms Neurological: Denies numbness, weakness, tingling Musculoskeletal: Denies back pain Skin: Denies rashes or lesions EXAM Physical Exam Narrative Exam Narrative: General: Patient lying in bed rest comfortably did not appear to be in acute distress Head: Atraumatic, normocephalic Eyes: PERRL bilaterally, EOMI bilaterally, no conjunctival injection noted Neck: Soft, supple, trachea midline Cardiovascular: Regular rate and rhythm no murmurs gallops rubs noted Respiratory: Patient has coarse breath sounds bilaterally Abdomen: Soft, nondistended, bowel sounds present x 4 no tenderness palpation Extremities: +4/5 strength noted in the bilateral upper and lower extremities, radial pulses +2/4 in the bilateral per extremities Neurological: Patient following commands knew that she was at [facility] Skin: Warm, dry, intact Const Vital Signs: 08/13/24 15:38 08/13/24 15:38 08/13/24 15:42 Temperature 101 F H 101 F H Temperature Source Axillary Axillary Pulse Rate 97 94 Respiratory Rate 26 H 22 H Respiratory Effort Short of Breath Respiratory Pattern Tachypnea Blood Pressure 87/58 L 87/58 L Blood Pressure Mean 67 67 Pulse Ox 80 86 Oxygen Delivery Method Room Air Nasal Cannula Oxygen Flow Rate (L/min) 6 Fraction of Inspired Oxygen (FIO2) 08/13/24 15:43 08/13/24 16:38 08/13/24 17:01 Temperature Temperature Source Pulse Rate 86 Respiratory Rate 25 H Respiratory Effort Respiratory Pattern Normal Blood Pressure 82/56 L Blood Pressure Mean 64 Pulse Ox 89 90 Oxygen Delivery Method Nasal Cannula High Flow Oxygen Flow Rate (L/min) 6 15 Fraction of Inspired Oxygen (FIO2) 86 70 08/13/24 17:01 08/13/24 18:04 08/13/24 18:47 Temperature Temperature Source Pulse Rate 82 80 81 Respiratory Rate 19 H 21 H 19 H Respiratory Effort Respiratory Pattern Normal Blood Pressure 75/51 L 79/60 L Blood Pressure Mean 59 66 Pulse Ox 93 94 94 Oxygen Delivery Method Bi-pap Bi-pap Oxygen Flow Rate (L/min) Fraction of Inspired Oxygen (FIO2) 70 08/13/24 19:05 08/13/24 19:05 08/13/24 19:24 Temperature 98.8 F 98.8 F Temperature Source Axillary Pulse Rate 82 82 82 Respiratory Rate 21 H 21 H 19 H Respiratory Effort Respiratory Pattern Blood Pressure 84/59 L 84/59 L 87/69 L Blood Pressure Mean 67 67 75 Pulse Ox 95 96 96 Oxygen Delivery Method Bi-pap Bi-pap Oxygen Flow Rate (L/min) Fraction of Inspired Oxygen (FIO2) MDM MDM MDM Narrative Medical decision making narrative: Patient is a 74-year-old female who presented to the emergency department the chief complaint of hypoxia, influenza positive and shortness of breath. On the differential diagnose includes but limited to pneumonia, ACS, pneumothorax, upper respiratory infection secondary to viral etiology. Once workup is obtained reviewed she will be reevaluated. Patient be given 30 cc/kg bolus of IV fluids based on ideal body weight as her BMI is greater than 30 this was ordered at 1545. Patient was febrile she will be given a gram of Tylenol. Patient be given Zofran Patient's CBC was reviewed she was significant for leukocytosis of 15,000, hemoglobin 11.9, plate count noted be 188. Patient's sodium normal 130, testingnormal 4.3, creatinine was 1.48 indicating acute kidney injury, glucose was 9149she does have an anion gap of 17. Patient lactic acid was elevated at 3.1. Patient AST and ALT were 27 and 17 respectively. Patient troponin elevated at 317, EKG was reviewed by myself which showed sinus rhythm with a rate of 94 bpm. Delta troponin pending, proBNP elevated 3099. Patient's urinalysis showed 500 leukocyte esterase negative nitrates 50-100 white cells with 3+ bacteria. Patient's chest x-ray was reviewed by myself by radiology and showed suspicion of bilateral pulmonary venous congestion. On reperfusion assessment patient's blood pressure systolic was noted to be on the soft side in the 70s however her MAP was 65 manual blood pressure was checked and was consistent with the monitor we will place her on 5 mics of Levophed. Patient was given vancomycin and cefepime at 1646. Patient's case will be discussed with hospitalist for admission to the intensivecare unit. Fluid reperfusion assessment was performed at 1800 and the patient's systolic blood pressure was noted to be 80 with a MAP of 66 therefore Levophed was started. On reevaluation the patient her MAP was 77 with a systolic of 89 with 5 mics of levo. Discussed case with hospitalist Dr. Parker who accept patient to the ICU. I updated the patient's family member at bedside all question concerns answered. Lab Data Labs: Laboratory Results - last 24 hr 08/13/24 08/13/24 15:50 16:10 WBC 15.0 H RBC 3.70 L Hgb 11.9 L Hct 36.2 L MCV 97.8 MCH 32.2 H MCHC 32.9 RDW Std Deviation 56.1 H RDW Coeff of [place] 15.8 H Plt Count 188 MPV 10.5 Immature Gran % (Auto) 0.300 Neut % (Auto) 90.8 H Lymph % (Auto) 3.6 L [place] % (Auto) 5.2 Eos % (Auto) 0.0 Baso % (Auto) 0.1 Absolute Neuts (auto) 13.6 H Absolute Lymphs (auto) 0.54 L Nucleated RBC % 0.1 PT 14.8 INR 1.1 APTT 40.2 H Sodium 138 Potassium 4.3 Chloride 98 Carbon Dioxide 23.7 Anion Gap 17 H BUN 29 H Creatinine 1.48 H Estim Creat Clear Calc 45.10 L Est GFR (MDRD) Non-Af 37 L BUN/Creatinine Ratio 19.5 Glucose 149 H Lactic Acid 3.1 H* Calcium 9.2 Total Bilirubin 0.27 AST 27 ALT 17 Alkaline Phosphatase 130 H Troponin T High Sens 317 H* NT pro BNP II 3099 H Total Protein 7.4 Albumin 3.9 Globulin 3.5 Albumin/Globulin Ratio 1.1 Urine Color Yellow Urine Clarity Sl. Cloudy Urine pH 6.0 Ur Specific [place] 1.015 Urine Protein 30 H Urine Glucose (UA) Normal Urine Ketones Negative Urine Occult Blood 50 H Urine Nitrite Negative Urine Bilirubin Negative Urine Urobilinogen Normal Ur Leukocyte Esterase 500 H Urine RBC 0-5 SEEN Urine WBC 50-100 SEEN Ur Squamous Epith Cells 0-5 SEEN Urine Bacteria 3+ Urine Mucus 0 SEEN Radiography Diagnostic Testing: Clinical Impression(s) from Imaging Studies Chest X-Ray 08/13/24 16:35 IMPRESSION: Suspicion of bilateral pulmonary venous congestion. Reading Location: [place] [address] Discharge Plan Triage Chief Complaint: Shortness of Breath ED Provider: Segundo Juarez Dx/Rx/DC Orders Clinical Impression: Acute hypoxic respiratory failure, UTI (urinary tract infection), CHF exacerbation, Acidosis, lactic, Type 2 PR (myocardial infarction) Prescriptions: No Action albuterol sulfate 2.5 mg /3 mL (0.083 %) solution for nebulization 2.5 mg inhalation DAILY PRN (Reason: shortness of breath or wheezing) Artificial Tears(glycerin-peg) 1-0.3 % drops 2 drp ophthalmic (eye) Q4H PRN (Reason: dry eye(s)) atorvastatin 20 mg tablet 20 mg PO QHS clonazepam 0.5 mg tablet 0.5 mg PO BID fluticasone propionate 220 mcg/actuation HFA aerosol inhaler 2 inh inhalation BID losartan 50 mg tablet 50 mg PO DAILY polyethylene glycol 3350 [Miralax] 17 gram/dose powder 17 g PO DAILY PRN (Reason: CONSTIPATION ) latanoprost 0.005 % drops 1 drp ophthalmic (eye) QHS clopidogrel 75 MG tablet 75 mg PO DAILY metoprolol succinate 100 MG tablet 100 mg PO DAILY hydrochlorothiazide 25 MG tablet 25 mg PO DAILY Qty: 0 phenobarbital 60 mg tablet 120 mg PO 0800 Patient Comments: PT TAKES 2 60MG TABS (120MG) EVERY MORNING. TAKES 3 TABS (180MG) EVERY SUN, MON, WED, THURS, SAT AT BEDTIME. TAKES 1 TAB (60MG) EVERY TUES AND FRI AT BEDTIME. phenobarbital 60 mg tablet 180 mg PO WETHSA Patient Comments: PT TAKES 2 60MG TABS (120MG) EVERY MORNING. TAKES 3 TABS (180MG) EVERY SUN, SAT, SAT, , SAT AT BEDTIME. TAKES 1 TAB (60MG) EVERY TUES AND FRI AT BEDTIME. Rx Instructions: GIVE AT BEDTIME paliperidone 6 MG tablet 6 mg PO QHS acetaminophen 500 mg tablet 500 mg PO Q6H PRN (Reason: pain) levothyroxine 200 mcg tablet 200 mcg PO QHS nifedipine 90 mg tablet extended release 90 mg PO DAILY phenobarbital 60 mg tablet 60 mg PO TU Patient Comments: PT TAKES 2 60MG TABS (120MG) EVERY MORNING. TAKES 3 TABS (180MG) EVERY SUN, SAT, SAT, , SAT AT BEDTIME. TAKES 1 TAB (60MG) EVERY TUES AND FRI AT BEDTIME. cholecalciferol (vitamin D3) 25 mcg (1,000 unit) tablet 50 mcg PO DAILY escitalopram oxalate 10 mg Tablet 10 mg PO DAILY Qty: 0 0RF quetiapine 100 mg tablet 100 mg PO QHS triamcinolone acetonide 0.1 % cream 1 applic topical Q8 PRN (Reason: itching) ondansetron 4 mg tablet,disintegrating 4 mg PO Q4H PRN (Reason: nausea and vomiting) Rx Instructions: give 1st dose 30min before emetogenic chemo pantoprazole [Protonix] 40 mg tablet,delayed release (DR/EC) 40 mg PO BID albuterol sulfate 90 mcg/actuation HFA aerosol inhaler 2 puff inhalation Q4H PRN (Reason: shortness of breath or wheezing) montelukast 10 mg tablet 10 mg PO QHS Qty: 90 3RF Primary Care Provider: Panda Littlejohn Referrals: Richa Daniels MD [Med Staff - [facility]] - Print Language: Luxembourgish Disposition Disposition: Acute Care Hospital [facility] What to do if you have Problems For any increased pain, shortness of breath, bleeding, nausea or vomiting, chestpain, or any unexpected problems, contact your Primary Care Provider. Call [facility] ([phone]) or report to the closest Emergency Room. Call 911 if necessary. 08/13/241943 <Electronically signed by Segundo Juarez DO> Cosigner Signature (if applicable): CC: Dr. Pnada Littlejohn MD ~ Signed [facility] Work Phone: [phone]) 316-879003-06-2025 History and physical note [facility] Medical Records Department [address] [place] [address] H&P Exam - Hospitalist 08/13/241913 MR#: [id number] Acct: [id number] Name: ADRIENNE MORRISON Rep #:[id number] : 1950 74 From: Ibeth Parker MD PCP: Dr. Panda Littlejohn MD Status:ADM IN Location: ICU ICU03-1 HPI - General General Date of Admission: 08/13/24 Date of Service: 08/13/24 Chief Complaint: N/V, possible aspiration, respiratory distress/hypoxia following. HPI Narrative The patient is a 74 y/o F w/ PMHx: Morbid obesity, Seizure disorder/epilepsy, MARY, COPD/Asthma, Hx CVA, GERD, Hypothyroidism, Chronic anemia, HTN, HLD, Rheumatoid arthritis, Anxiety and Depression/Schizophrenia, CKD stage II per prior GFR trending who presents to the [facility] ED on 08/13/2024 with historyof fatigue, malaise with onset of nausea and bout of emesis while laying down earlier in the evening with onset significant dyspnea, hypoxia following with recent positive flu status Saturday (congestion, rhinorrhea, cough, fatigue) status prompting ED evaluation. Workup in the ED included T101 axillary, heart rate 97, BP initially 87/58 with MAP of 67, respiratory rate 26, initially 80% on room air with improvement to initially 86% on 6 L placed on BiPAP with BP decreased to 75/51 transiently with most recent repeat vitals heart rate 81, BP 79/60, respiratory rate 19, 94% on 70% FiO2 BiPAP, CBC with WBC 15, hemoglobin 0.9, MCV 97.8, platelets 188 with left shift and lymphopenia, coags unrema rkableaside PTT 40.2, CMP with anion gap 17, BUN/creatinine 29/1.48, GFR 37, glucose 149, lactic acid 3.1, alk phos 130, troponin 317, BNP 3099, urinalysis with specific gravity 1.015, cloudy, protein 30, occult blood 50, negative nitrite, leukocyte esterase 500 however with urine WBCs 50-100 with 3+ urine bacteria, chest x-ray suspicious for bilateral venous congestion, urine culture pending perED, blood culture x 2 pending per ED. from review of prior micro records patient does have positiveprevious MRSA screen 03/12/2024. In the ED patient ministered Tylenol 1000 mg p.o. x 1, cefepime 2 gIV x 1, vancomycin 2001 g IV x1, Zofran 4 mg IV x 1 and initiated on norepinephrine drip. ED discussed case with cardiology and heparin drip was also initiated. In the ED prior to HF concerns noted she was administered 2.5L NS resuscitation. [facility] Medical History Epilepsy Hammer toes of both feet Cerebrovascular disease Age related cataract Wears glasses Wears hearing aid Rash Walker as ambulation aid Easy bruising History of diverticulitis Gastric reflux Non-smoker Shortness of breath on exertion Vericose veins History of CVA (cerebrovascular accident) Seizure disorder Thyroid disorder Rheumatoid arthritis Diverticulitis Sleep apnea COPD (chronic obstructive pulmonary disease) Diabetes mellitus type 2 in obese Benign essential hypertension Convulsion Osteoarthritis Hypothyroid TIA (transient ischemic attack) Hypercholesterolemia Anemia in chronic illness Allergic rhinitis Glaucoma Morbid obesity Peripheral venous insufficiency GERD (gastroesophageal reflux disease) Asthma Schizophrenia Depression Anxiety disorder Hyperlipidemia Hypertension Home Medications ?Medication ?Instructions ?Recorded ?Last Taken ?Type clopidogrel 75 mg tablet 75 mg PO DAILY 03/28/1307/03 History hydrochlorothiazide 25 mg tablet 25 mg PO DAILY ##0 03/10/24 History metoprolol succinate 100 mg 100 mg PO DAILY 03/28/13 0 12/19/20 History tablet,extended release 24 hr paliperidone 6 mg tablet,extended 6 mg PO QHS 01/31/17 03/10/24 History release 24 hr montelukast 10 mg tablet 10 mg PO QHS #90 tabs 03/10/24 Rx albuterol sulfate 2.5 mg/3 mL 2.5 mg inhalation DAILY PRN 11/27/23 Unknown History (0.083 %) solution for nebulization shortness of breat h or wheezing atorvastatin 20 mg tablet 20 mg PO QHS 11/27/23 History clonazepam 0.5 mg tablet 0.5 mg PO BID 11/27/2303/10 History fluticasone propionate 220 2 inh inhalation BID 03/10/24 History mcg/actuation HFA aerosol inhaler latanoprost 0.005 % eye drops 1 drp ophthalmic (eye) Q HS 11/27/23 03/10/24 History losartan 50 mg tablet 50 mg PO DAILY 11/27/23/07/03 History phenobarbital 60 mg tablet 120 mg PO 0800 11/27/23 Unk nown History phenobarbital 60 mg tablet 180 mg PO SUMOWETHSA seizur es 11/27/23 Unknown History polyethylene glycol 3350 17 17 g PO DAILY PRN CONSTIPA TION 11/27/23 03/10/24 History gram/dose oral powder (Miralax) propylene glycol 1 %-glycerin 0.3 2 drp ophthalmic (ey e) Q4H PRN dry 11/27/23 Unknown History % eye drops (Artificial Tears eye(s) (glycerin-peg)) acetaminophen 500 mg tablet 500 mg PO Q6H PRN pain 08/0303/10/24 History cholecalciferol (vitamin D3) 25 50 mcg PO DAILY Unknown History mcg (1,000 unit) tablet levothyroxine 200 mcg tablet 200 mcg PO QHS 03/11/24 1 History nifedipine 90 mg tablet,extended 90 mg PO DAILY 03/10/24 History release phenobarbital 60 mg tablet 60 mg PO TUFR seizures 08/0303/10/24 History escitalopram oxalate 10 mg tablet 10 mg PO DAILY #0 ta bs 03/16/24 Unknown Rx albuterol sulfate 90 mcg/actuation 2 puff inhalation Q 4H PRN 08/13/24 Unknown History aerosol inhaler shortness of breath or wheez ing ondansetron 4 mg disintegrating 4 mg PO Q4H PRN nausea and vomiting 08/13/24 Unknown History tablet pantoprazole 40 mg tablet,delayed 40 mg PO BID 5 Unknown History release (Protonix) quetiapine 100 mg tablet 100 mg PO QHS 08/13/24 Unkno wn History triamcinolone acetonide 0.1 % 1 applic topical Q8 PRN itching 08/13/24 Unknown History topical cream Allergy/AdvReac Type Severity Reaction Status Date / Time amoxicillin Allergy NEEDS Verified 03/11/24 08:36 FOLLOW-UP codeine Allergy Shortness Verified 03/11/24 08:36 of breath cyclobenzaprine (From Allergy NEEDS Verified 03/11/24 08:36 Flexeril) FOLLOW-UP dextromethorphan HBr (From Allergy Shortness Verified 03/11/24 08:36 Tylenol Cold Multi-Symptom) of breath diazepam (From Valium) Allergy Shortness Verified 03/11/24 08:36 of breath fluticasone (From Advair Allergy NEEDS Verified 03/11/24 08:36 Diskus) FOLLOW-UP Food Allergies: Uncoded Allergy Shortness Verified 03/11/24 08:36 of breath guaifenesin (From Tylenol Allergy Shortness Verified 03/11/24 08:36 Cold Multi-Symptom) of breath hydrocodone bitartrate (From Allergy Shortness Verified 03/11/24 08:36 Vicodin) of breath iodine Allergy Anaphylaxis Verified 03/11/24 08:36 Latex, Natural Rubber Allergy Shortness Verified 03/11/24 08:36 of breath morphine Allergy Shortness Verified 03/11/24 08:36 of breath NSAIDS (Non-Steroidal Allergy Shortness Verified 03/11/24 08:36 Anti-Inflamma of breath oxaprozin (From Daypro) Allergy NEEDS Verified 03/11/24 08:36 FOLLOW-UP oxycodone Allergy NEEDS Verified 03/11/24 08:36 FOLLOW-UP phenylephrine HCl (From Allergy Shortness Verified 03/11/24 08:36 Tylenol Cold Multi-Symptom) of breath phenytoin (From Dilantin) Allergy NEEDS Verified 03/11/24 08:36 FOLLOW-UP phenytoin sodium (From Allergy Shortness Verified 03/11/24 08:36 Dilantin) of breath phenytoin sodium extended Allergy Shortness Verified 03/11/24 08:36 (From Dilantin) of breath povidone-iodine (From Allergy BLISTERS Verified 03/11/24 08:36 Betadine) pseudoephedrine HCl (From Allergy Shortness Verified 03/11/24 08:36 Tylenol Cold Multi-Symptom) of breath salmeterol (From Advair Allergy NEEDS Verified 03/11/24 08:36 Diskus) FOLLOW-UP shellfish derived Allergy NEEDS Verified 03/11/24 08:36 FOLLOW-UP soap (From Betadine) Allergy BLISTERS Verified 03/11/24 08:36 tetracycline Allergy NEEDS Verified 03/11/24 08:36 FOLLOW-UP tositumomab iodine-131 Allergy NEEDS Verified 03/11/24 08:36 FOLLOW-UP muscle relaxers Allergy Shortness Uncoded 05/22/23 11:04 of breath Family History (Updated 08/13/24 @ 20:[address] Ibeth Parker MD) Mother CVA (cerebral vascular accident) Cancer Depression Diabetes Emphysema lung Hypertension Arthritis Father CVA (cerebral vascular accident) Cancer Depression Diabetes Emphysema lung Hypertension Arthritis Surgical History History of cholecystectomy History of tonsillectomy History of total hysterectomy History of total knee replacement History of bilateral tympanoplasty History of tubal ligation History of D&C Social History (Updated 08/13/24 @ 20:[address] Ibeth Parker MD) household members: none housing: prison Smoking Status: Never smoker second hand exposure: Yes alcohol intake: never substance use type: does not use what type of physical activity do you participate in: walking do you feel safe at home: Yes ROS ROS Narrative Admission Review of Systems: CONSTITUTIONAL: No weight loss, + fever, chills, weakness or fatigue. HEENT: + Congestion, rhinorrhea. Eyes: No visual loss, blurred vision, double vision or yellow sclerae. Ears, Nose, Throat: No hearing loss, sneezing. SKIN: No rash or itching, lesions, wounds. CARDIOVASCULAR: + Orthopnea. No chest pain, chest pressure or chest discomfort, palpitations, edema, syncopal events. RESPIRATORY: + Dyspnea, cough, concern aspiration event concurrently, moist cough. No wheezing, hemoptysis. GASTROINTESTINAL: + Anorexia, nausea, vomiting. No diarrhea, abdominal pain, melena, BRBPR. GENITOURINARY: No dysuria, frequency, urgency or retention. NEUROLOGICAL: No headache, dizziness, syncope, paralysis, ataxia, numbness or tingling in the extremities, focal weakness, change in bowel or bladder control,seizure. MUSCULOSKELETAL: + muscle, back pain, joint pain or stiffness. HEMATOLOGIC: + Chronic anemia, easy bleeding/bruising. LYMPHATICS: No enlarged nodes. No history of splenectomy. PSYCHIATRIC: + History of anxiety and depression/mood disorder/schizophrenia. ENDOCRINOLOGIC: No reports of sweating, cold or heat intolerance. No polyuria orpolydipsia. ALLERGIES: + History of asthma, allergic rhinitis. Vital Signs Vital Signs Vital Signs: 08/13/24 15:38 08/13/24 15:38 08/13/24 15:42 Temperature 101 F H 101 F H Temperature Source Axillary Axillary Pulse Rate 97 94 Respiratory Rate 26 H 22 H Respiratory Effort Short of Breath Respiratory Pattern Tachypnea Blood Pressure 87/58 L 87/58 L Blood Pressure Mean 67 67 Pulse Ox 80 86 Oxygen Delivery Method Room Air Nasal Cannula Oxygen Flow Rate (L/min) 6 Fraction of Inspired Oxygen (FIO2) 08/13/24 15:43 08/13/24 16:38 08/13/24 17:01 Temperature Temperature Source Pulse Rate 86 Respiratory Rate 25 H Respiratory Effort Respiratory Pattern Normal Blood Pressure 82/56 L Blood Pressure Mean 64 Pulse Ox 89 90 Oxygen Delivery Method Nasal Cannula High Flow Oxygen Flow Rate (L/min) 6 15 Fraction of Inspired Oxygen (FIO2) 86 70 08/13/24 17:01 08/13/24 18:04 08/13/24 18:47 Temperature Temperature Source Pulse Rate 82 80 81 Respiratory Rate 19 H 21 H 19 H Respiratory Effort Respiratory Pattern Normal Blood Pressure 75/51 L 79/60 L Blood Pressure Mean 59 66 Pulse Ox 93 94 94 Oxygen Delivery Method Bi-pap Bi-pap Oxygen Flow Rate (L/min) Fraction of Inspired Oxygen (FIO2) 70 08/13/24 19:05 08/13/24 19:05 Temperature 98.8 F Temperature Source Axillary Pulse Rate 82 82 Respiratory Rate 21 H 21 H Respiratory Effort Respiratory Pattern Blood Pressure 84/59 L 84/59 L Blood Pressure Mean 67 67 Pulse Ox 95 96 Oxygen Delivery Method Bi-pap Bi-pap Oxygen Flow Rate (L/min) Fraction of Inspired Oxygen (FIO2) Weight Weight: 313 lb 11.485 oz Body Mass Index (BMI) 55.5 Physical Exam Narrative Physical Examination: General: Awake, alert, oriented to self, place and events but difficult evaluation given BiPAP in place, respiratory distress seems to have improved perdiscussion with family present also. Skin: Normal color, normal turgor, no icterus, no cyanosis except occasional stage ecchymoses, abrasion, mild intertrigo. HEENT: AT/NC, EOMI, PERRLA, mildly dry MM, BiPAP in place, difficult to discern carotid bruit givenreferred sound from BiPAP and thickened neck, difficult to discern JVD given thickened neck. Lungs: Severely diminished, greater bases, mildly rhonchorous and coarse, rales potentially at the bases but difficult to discern given referred sounds with BiPAP, no wheezing. Heart: Currently regular rate and rhythm; no gallop, rub audible. Abdomen: Soft, morbidly obese, NTTP, distant BS, difficult to discern distentionand HSM given habitus. Extremities: No cyanosis, no clubbing, mild ankle not markedly pitting edema. Neurological: Patient awake, alert, oriented as noted, cognitive function suspect mildly decreased from baseline and also difficult assessment given underlying schizophrenia/mood disorder also with previous history of CVA, pupilsequally reactive to light and accommodation, cranial nerves gross normal, movingall 4 extremities, strength severely globally decreased. Psychiatric: Affect appears flat, fatigued, ill-appearing, no acute evidence of depressive or anxiety feelings but does have underlying history. Results Lab / Micro Data 08/13/24 15:50 08/13/24 15:50 Labs: Laboratory Results - last 24 hr 08/13/24 15:50: WBC 15.0 H, RBC 3.70 L, Hgb 11.9 L, Hct 36.2 L, MCV 97.8, MCH 32.2 H, MCHC 32.9, RDW Std Deviation 56.1 H, RDW Coeff of [place] 15.8 H, Plt Count 188, MPV 10.5, Immature Gran % (Auto) 0.300, Neut % (Auto) 90.8 H, Lymph % (Auto) 3.6 L, [place] % (Auto) 5.2, Eos % (Auto) 0.0, Baso % (Auto) 0.1, Absolute Neuts (auto) 13.6 H, Absolute Lymphs (auto) 0.54 L, Nucleated RBC % 0.1, PT 14.8, INR 1.1, APTT 40.2 H, Sodium 138, Potassium 4.3, Chloride 98, Carbon Dioxide 23.7, Anion Gap 17 H, BUN 29H, Creatinine 1.48 H, Estim Creat Clear Calc 45.10 L, Est GFR (MDRD) Non-Af 37 L, BUN/Creatinine Ratio 19.5, Glucose 149H, Lactic Acid 3.1 H*, Calcium 9.2, Total Bilirubin 0.27, AST 27, ALT 17, Alkaline Phosphatase 130 H, Troponin T High Sens 317 H*, NT pro BNP II 3099 H, Total Protein 7.4, Albumin3.9, Globulin 3.5, Albumin/Globulin Ratio 1.1 08/13/24 16:10: Urine Color Yellow, Urine Clarity Sl. Cloudy, Urine pH 6.0, Ur Specific [place] 1.015, Urine Protein 30 H, Urine Glucose (UA) Normal, Urine Ketones Negative, Urine Occult Blood 50 H, Urine Nitrite Negative, Urine Bilirubin Negative, Urine Urobilinogen Normal, Ur Leukocyte Esterase 500 H, Urine RBC 0-5 SEEN, Urine WBC 50-100 SEEN, Ur Squamous Epith Cells 0-5 SEEN, Urine Bacteria 3+, Urine Mucus 0 SEEN Imaging Radiology Impression Chest X-Ray 08/13/24 16:35 IMPRESSION: Suspicion of bilateral pulmonary venous congestion. Reading Location: [facility] Assessment & Plan Assessment/Plan (1) Septic shock: PLAN: Plan The patient is a 74 y/o F w/ PMHx: Morbid obesity, Seizure disorder/epilepsy, MARY, COPD/Asthma, Hx CVA, GERD, Hypothyroidism, Chronic anemia, HTN, HLD, Rheumatoid arthritis, Anxiety and Depression/Schizophrenia, CKD stage II per prior GFR trending who presents to the [facility] ED on 08/13/2024 with historyof fatigue, malaise with onset of nausea and bout of emesis while laying down earlier in the evening with onset significant dyspnea, hypoxia following with recent positive flu status Saturday (congestion, rhinorrhea, cough, fatigue) status prompting ED evaluation. #1. Acute Hypoxic Respiratory Failure, multifactorial, secondary to Acute Septic Shock secondary toAcute Aspiration Event with recent Acute Influenza A Syndrome diagnosis in addition to Acute Complicated UTI w/ evidence of sepsis-induced organ dysfunction/tissue hypoperfusion and sepsis induced hypotension with inability to utilize sepsis protocol hydration given overload as noted #2 complicatedby demand ischemia with elevated cardiac enzyme, acute kidney injury: Will admit patient to the ICU, will continue BiPAP cautiously given recent history of emesis swelling down and will immediately obtain stat ABG now,will consult supervising film or videotape editor per protocol, maintain on cardiac monitoring, continue to maintain on cardiac monitoring, maintain on norepinephrine therapy, continue central line care perprotocol, will defer tamiflu given timeline of diagnosis/symptoms, maintain on IV abx regimen w/ vancomycin, rocephin, flagyl given previous history of MRSA positive status with concern for aspiration with de-escalation as able, urine antigens as well as full respiratory viral panel and COVID/influenza/RSV requested to ensure no coinfection with recent influenzareported infection, maintain on ATCduoneb therapy, as needed albuterol, blood culture x 2 pending per ED, urine culture pending per ED, continue treatment as noted #2, #3, evaluation of #4, PT/OT/case management consulted for discharge planning. #2. Acute Decompensated HF, unclear type complicated by acute presentation #1 and elevated cardiac enzymes suspected secondary to demand as noted below: CXR obtained in the ED w/ evidence of congestion. Unfortunately patient significantly hypertensive with septic shock thus deferred diuresis, will c ontinue pressor therapy and pulse dose Lasix as able, maintain on cardiac telemetry, continue to obtain cardiac enzyme series, obtain serial EKGs, monitorI/Os, continue medical therapy w/ plavix, obtain TSH and magnesium level and FLP. Echocardiogram requested. Cardiology consulted, pending. #3. Elevated cardiac enzyme, suspected demand secondary to acute presentation #1, #2: EKG in ED w/ sinus rhythm with no acute evidence of ischemia, CXR w/ bilateral venous congestion evident. Trop elevated, 317. Will maintain on a monitored bed, continue serial cardiac enzymes and EKGs. Obtain magnesium level upon admission. Initiate and maintain on heparin drip. Continue medical management w/ plavix, statin w/ AM FLP. ECHO requested. Cardiology consulted. #4. Acute kidney injury on CKD stage II per previous GFR trending: Secondary toacute presentation as noted #1 with hypoperfusion. Admission BUN/Cr 29/1.48, GFR37, prior baseline creatinine noted to be primarily 0.5-0.8. Given acute presentation with overload concurrently will avoid hydration, unfortunately willneed to continue to diurese while also maintaining on pressor therapy, holding all nephrotoxic medication, continue treatment of UTI as noted, ensure no urinary retention present, if necessary will obtain FeNa assessment/bladder/renal ultrasound and involve nephrology if needed. #5. Chronic normocytic anemia: Admission: 1.9, MCV 97.8, baseline hemoglobin more recently 10 range, has vacillated certainly from 9-11, continue to trend. #6. Rheumatoid arthritis: Per current list does not appear to be on chronic regimen, clarifying to be certain. #7. History CVA: Will continue Plavix, statin, holding all hypertensive regimengiven hypotension asnoted. #8. Hypothyroidism: We will continue patient on levothyroxine regimen, TSH requested. #9. Hypertension: As noted significant hypotension with shock presentation, holding all regimen, add back once appropriate. #10. Hyperlipidemia: Continue home statin regimen. AM FLP. #11. Seizure disorder/epilepsy: We will continue patient home with significant phenobarbital regimen orally as able however if necessary may transition to IV, also on twice daily clonazepam which likely is for mood but will hold her sedation if necessary. #12. Anxiety and depression/mood disorder/schizophrenia: We will continue patient home psychiatric regimen however with hold parameters as needed for sedation and ulceration pending renal function, including clonazepam, escitalopram, paliperidone, quetiapine. #13. Chronic COPD/asthma: Complicates presentation, as noted above maintained on BiPAP currently, wean as able, maintain on ATC duonebs, PRN albuterol, HOB, IS parameters. #14. Chronic normocytic anemia: Admission hemoglobin 1.9, MCV 97.8, baseline hemoglobin primarily 9-10, stable, continue to trend. #15. Morbid Obesity: Weight loss and lifestyle changes encouraged. #16. MARY: Usually uses CPAP nightly, currently on BiPAP as noted. #17. GERD: Will maintain on PPI. #18. DVT prophylaxis: Will maintain on heparin drip as noted. #19. CODE status: Patient PETER is her sister who is present and living will iscurrently in place. Discussed CODE status at length including difference betweenFULL code, DNR-CCA and DNR-CC status. Following discussions about the differences in these status, requested DNR-CCA, no intubation. Amenable to pressor therapy. Advanced Care Planning Face to Face Time: 16 minutes. Sepsis Attestation Sepsis Attestation: Agree w/Sepsis Date exam was performed: 08/13/24 Time exam was performed: 21:03 Possible Source of Sepsis: Pulmonary and Genitourinary Sepsis Organ Dysfunction Criteria Present: SBP < 90 mmHg or MAP < 65 mmHg, SBP decrease of more than 40 mmHg, Acute Respiratory Failure (New need for BiPAP/CPAP or MV) and Lactic Acid > 2 mmol/L Fluid Resuscitation Fluid resuscitation indicated?: Yes Fluid Resuscitation ordered: Lesser volume fluid bolus ordered Amount of fluid ordered: 2,500 Reason for lesser fluid bolus:: Concern for fluid overload Sepsis Note Date exam was performed: 08/13/24 Time exam was performed: 21:03 Sepsis Attestation: Sepsis re-evaluation was performed Response to fluids: Non Fluid responsive hypotension and Vasopressors started Charges/Coding Visit Charges Inpatient E&M: 62072 Init Hosp L3 Procedures Hospitalists Procedures: 86431 Advncd Care Plan 30 Min 08/13/242102 Cosigner Signature (if applicable): CC: Dr. Ibeth Parker MD; Dr. Panda Littlejohn MD~ Signed [facility]03-06-2025 Discharge summary [facility] Medical Records Department [address] [place] [address] Emergency Department Summary 08/13/24 MR#: [id number] Acct: [id number] Name: ADRIENNE MORRISON Rep #:[id number] : 1950 74 From: Segundo Juarez DO PCP: Dr. Panda Littlejohn MD Status:REG ER Location: ED ADDENDUM by Dr. Segundo Juarez DO on 08/13/24 at 1999 Discussed case with cardiology Dr. Saini and he states that you can give the patient aspirin this is likely type II myocardial infarction however without history of CHF can place the patient on heparin. Patient has a allergy history of shortness of breath with NSAIDs given the patient's respiratorystatus at this point time and her allergy we will hold off on the aspirin and will place her on heparin. I updated hospitalist Dr. Parker about our discussion. Patient did not require central line at this point time we will hold off and start heparin. Patient's CODE STATUS was confirmed with patientand daughter at bedside DNR CCA DNI. 08/13/241999 Cosigner Signature (if applicable): cc: Dr. Panda Littlejohn MD ~* Signed HPI History of Present Illness Chief Complaint: Shortness of Breath Narrative Narrative: Patient is a 74-year-old female with a past medical history of CVA, seizures, RA, MARY, COPD on 2 L nasal cannula at night, hypothyroidism,, GERD, schizophrenia, hypertension who presented to the emergency department with a chief complaint of cough shortness of breath. According to EMS when they arrived she was on 2 L and she was noted be hypoxic at 73% they placed her on 5 L got her to 80% and brought her here for the valuation management. There is concerned that she had aspiration earlier today as she vomited while she was laying down. She recently tested positive for influenza according to staff and EMS. Patient states that she feels short of breath [facility] Medical History Epilepsy Hammer toes of both feet Cerebrovascular disease Age related cataract Wears glasses Wears hearing aid Rash Walker as ambulation aid Easy bruising History of diverticulitis Gastric reflux Non-smoker Shortness of breath on exertion Vericose veins History of CVA (cerebrovascular accident) Seizure disorder Thyroid disorder Rheumatoid arthritis Diverticulitis Sleep apnea COPD (chronic obstructive pulmonary disease) Diabetes mellitus type 2 in obese Benign essential hypertension Convulsion Osteoarthritis Hypothyroid TIA (transient ischemic attack) Hypercholesterolemia Anemia in chronic illness Allergic rhinitis Glaucoma Morbid obesity Peripheral venous insufficiency GERD (gastroesophageal reflux disease) Asthma Schizophrenia Depression Anxiety disorder Hyperlipidemia Hypertension Home Medications ?Medication ?Instructions ?Recorded ?Last Taken ?Type clopidogrel 75 mg tablet 75 mg PO DAILY 03/28/1307/03 History hydrochlorothiazide 25 mg tablet 25 mg PO DAILY ##0 03/10/24 History metoprolol succinate 100 mg 100 mg PO DAILY 03/28/13 0 12/19/20 History tablet,extended release 24 hr paliperidone 6 mg tablet,extended 6 mg PO QHS 01/31/17 03/10/24 History release 24 hr montelukast 10 mg tablet 10 mg PO QHS #90 tabs 03/10/24 Rx albuterol sulfate 2.5 mg/3 mL 2.5 mg inhalation DAILY PRN 11/27/23 Unknown History (0.083 %) solution for nebulization shortness of breat h or wheezing atorvastatin 20 mg tablet 20 mg PO QHS 11/27/23 History clonazepam 0.5 mg tablet 0.5 mg PO BID 11/27/2303/10 History fluticasone propionate 220 2 inh inhalation BID 03/10/24 History mcg/actuation HFA aerosol inhaler latanoprost 0.005 % eye drops 1 drp ophthalmic (eye) Q HS 11/27/23 03/10/24 History losartan 50 mg tablet 50 mg PO DAILY 11/27/23 10/07/03 History phenobarbital 60 mg tablet 120 mg PO 0800 11/27/23 Unk nown History phenobarbital 60 mg tablet 180 mg PO SUMOWETHSA seizur es 11/27/23 Unknown History polyethylene glycol 3350 17 17 g PO DAILY PRN CONSTIPA TION 11/27/23 03/10/24 History gram/dose oral powder (Miralax) propylene glycol 1 %-glycerin 0.3 2 drp ophthalmic (ey e) Q4H PRN dry 11/27/23 Unknown History % eye drops (Artificial Tears eye(s) (glycerin-peg)) acetaminophen 500 mg tablet 500 mg PO Q6H PRN pain 08/0303/10/24 History cholecalciferol (vitamin D3) 25 50 mcg PO DAILY Unknown History mcg (1,000 unit) tablet levothyroxine 200 mcg tablet 200 mcg PO QHS 03/11/24 1 History nifedipine 90 mg tablet,extended 90 mg PO DAILY 03/10/24 History release phenobarbital 60 mg tablet 60 mg PO TUFR seizures 08/0303/10/24 History escitalopram oxalate 10 mg tablet 10 mg PO DAILY #0 ta bs 03/16/24 Unknown Rx albuterol sulfate 90 mcg/actuation 2 puff inhalation Q 4H PRN 08/13/24 Unknown History aerosol inhaler shortness of breath or wheez ing ondansetron 4 mg disintegrating 4 mg PO Q4H PRN nausea and vomiting 08/13/24 Unknown History tablet pantoprazole 40 mg tablet,delayed 40 mg PO BID 5 Unknown History release (Protonix) quetiapine 100 mg tablet 100 mg PO QHS 08/13/24 Unkno wn History triamcinolone acetonide 0.1 % 1 applic topical Q8 PRN itching 08/13/24 Unknown History topical cream Allergy/AdvReac Type Severity Reaction Status Date / Time amoxicillin Allergy NEEDS Verified 03/11/24 08:36 FOLLOW-UP codeine Allergy Shortness Verified 03/11/24 08:36 of breath cyclobenzaprine (From Allergy NEEDS Verified 03/11/24 08:36 Flexeril) FOLLOW-UP dextromethorphan HBr (From Allergy Shortness Verified 03/11/24 08:36 Tylenol Cold Multi-Symptom) of breath diazepam (From Valium) Allergy Shortness Verified 03/11/24 08:36 of breath fluticasone (From Advair Allergy NEEDS Verified 03/11/24 08:36 Diskus) FOLLOW-UP Food Allergies: Uncoded Allergy Shortness Verified 03/11/24 08:36 of breath guaifenesin (From Tylenol Allergy Shortness Verified 03/11/24 08:36 Cold Multi-Symptom) of breath hydrocodone bitartrate (From Allergy Shortness Verified 03/11/24 08:36 Vicodin) of breath iodine Allergy Anaphylaxis Verified 03/11/24 08:36 Latex, Natural Rubber Allergy Shortness Verified 03/11/24 08:36 of breath morphine Allergy Shortness Verified 03/11/24 08:36 of breath NSAIDS (Non-Steroidal Allergy Shortness Verified 03/11/24 08:36 Anti-Inflamma of breath oxaprozin (From Daypro) Allergy NEEDS Verified 03/11/24 08:36 FOLLOW-UP oxycodone Allergy NEEDS Verified 03/11/24 08:36 FOLLOW-UP phenylephrine HCl (From Allergy Shortness Verified 03/11/24 08:36 Tylenol Cold Multi-Symptom) of breath phenytoin (From Dilantin) Allergy NEEDS Verified 03/11/24 08:36 FOLLOW-UP phenytoin sodium (From Allergy Shortness Verified 03/11/24 08:36 Dilantin) of breath phenytoin sodium extended Allergy Shortness Verified 03/11/24 08:36 (From Dilantin) of breath povidone-iodine (From Allergy BLISTERS Verified 03/11/24 08:36 Betadine) pseudoephedrine HCl (From Allergy Shortness Verified 03/11/24 08:36 Tylenol Cold Multi-Symptom) of breath salmeterol (From Advair Allergy NEEDS Verified 03/11/24 08:36 Diskus) FOLLOW-UP shellfish derived Allergy NEEDS Verified 10/02/24 08:36 FOLLOW-UP soap (From Betadine) Allergy BLISTERS Verified 03/11/24 08:36 tetracycline Allergy NEEDS Verified 03/11/24 08:36 FOLLOW-UP tositumomab iodine-131 Allergy NEEDS Verified 03/11/24 08:36 FOLLOW-UP muscle relaxers Allergy Shortness Uncoded 05/22/23 11:04 of breath Family History Other Arthritis CVA (cerebral vascular accident) Cancer Depression Diabetes Emphysema lung Hypertension Surgical History History of cholecystectomy History of tonsillectomy History of total hysterectomy History of total knee replacement History of bilateral tympanoplasty History of tubal ligation History of D&C Social History Smoking Status: Never smoker second hand exposure: Yes alcohol intake: never substance use type: does not use what type of physical activity do you participate in: walking do you feel safe at home: Yes ROS ROS ED ROS Narrative Constitutional: Denies fevers, chills, headaches Eyes: Denies change in vision double vision blurry vision Cardiovascular: Denies chest pain or palpitations Respiratory: Complains cough and shortness of breath Abdomen: Complains of nausea denies abdominal pain vomiting diarrhea : Denies any urinary symptoms Neurological: Denies numbness, weakness, tingling Musculoskeletal: Denies back pain Skin: Denies rashes or lesions EXAM Physical Exam Narrative Exam Narrative: General: Patient lying in bed rest comfortably did not appear to be in acute distress Head: Atraumatic, normocephalic Eyes: PERRL bilaterally, EOMI bilaterally, no conjunctival injection noted Neck: Soft, supple, trachea midline Cardiovascular: Regular rate and rhythm no murmurs gallops rubs noted Respiratory: Patient has coarse breath sounds bilaterally Abdomen: Soft, nondistended, bowel sounds present x 4 no tenderness palpation Extremities: +4/5 strength noted in the bilateral upper and lower extremities, radial pulses +2/4 in the bilateral per extremities Neurological: Patient following commands knew that she was at [facility] Skin: Warm, dry, intact Const Vital Signs: 08/13/24 15:38 08/13/24 15:38 08/13/24 15:42 Temperature 101 F H 101 F H Temperature Source Axillary Axillary Pulse Rate 97 94 Respiratory Rate 26 H 22 H Respiratory Effort Short of Breath Respiratory Pattern Tachypnea Blood Pressure 87/58 L 87/58 L Blood Pressure Mean 67 67 Pulse Ox 80 86 Oxygen Delivery Method Room Air Nasal Cannula Oxygen Flow Rate (L/min) 6 Fraction of Inspired Oxygen (FIO2) 08/13/24 15:43 08/13/24 16:38 08/13/24 17:01 Temperature Temperature Source Pulse Rate 86 Respiratory Rate 25 H Respiratory Effort Respiratory Pattern Normal Blood Pressure 82/56 L Blood Pressure Mean 64 Pulse Ox 89 90 Oxygen Delivery Method Nasal Cannula High Flow Oxygen Flow Rate (L/min) 6 15 Fraction of Inspired Oxygen (FIO2) 86 70 08/13/24 17:01 08/13/24 18:04 08/13/24 18:47 Temperature Temperature Source Pulse Rate 82 80 81 Respiratory Rate 19 H 21 H 19 H Respiratory Effort Respiratory Pattern Normal Blood Pressure 75/51 L 79/60 L Blood Pressure Mean 59 66 Pulse Ox 93 94 94 Oxygen Delivery Method Bi-pap Bi-pap Oxygen Flow Rate (L/min) Fraction of Inspired Oxygen (FIO2) 70 08/13/24 19:05 08/13/24 19:05 08/13/24 19:24 Temperature 98.8 F 98.8 F Temperature Source Axillary Pulse Rate 82 82 82 Respiratory Rate 21 H 21 H 19 H Respiratory Effort Respiratory Pattern Blood Pressure 84/59 L 84/59 L 87/69 L Blood Pressure Mean 67 67 75 Pulse Ox 95 96 96 Oxygen Delivery Method Bi-pap Bi-pap Oxygen Flow Rate (L/min) Fraction of Inspired Oxygen (FIO2) MDM MDM MDM Narrative Medical decision making narrative: Patient is a 74-year-old female who presented to the emergency department the chief complaint of hypoxia, influenza positive and shortness of breath. On the differential diagnose includes but limitedto pneumonia, ACS, pneumothorax, upper respiratory infection secondary to viral etiology. Once workup is obtained reviewed she will be reevaluated. Patient be given 30 cc/kg bolus of IV fluids based on ideal body weight as her BMI is greater than 30 this was ordered at 1545. Patient was febrile shewill be given a gram of Tylenol. Patient be given Zofran Patient's CBC was reviewed she was significant for leukocytosis of 15,000, hemoglobin 11.9, plate count noted be 188. Patient's sodium normal 130, testingnormal 4.3, creatinine was 1.48 indicating acute kidney injury, glucose was 9149she does have an anion gap of 17. Patient lactic acid was elevated at 3.1. Patient AST and ALT were 27 and 17 respectively. Patient troponin elevated at 317, EKG wasreviewed by myself which showed sinus rhythm with a rate of 94 bpm. Delta troponin pending, proBNP elevated 3099. Patient's urinalysis showed 500 leukocyte esterase negative nitrates 50-100 white cells with 3+ bacteria. Patient's chest x-ray was reviewed by myself by radiology and showed suspicion o f bilateral pulmonary venous congestion. On reperfusion assessment patient's blood pressure systolic was noted to be on the soft side in the70s however her MAP was 65 manual blood pressure was checked and was consistent with the monitor wewill place her on 5 mics of Levophed. Patient was given vancomycin and cefepime at 1646. Patient's case will be discussed with hospitalist for admission to the intensivecare unit. Fluid reperfusion assessment was performed at 1800 and the patient's systolic blood pressure was noted to be 80 with a MAP of 66 therefore Levophed was started. On reevaluation the patient her MAP was 77 with a systolic of 89 with 5 mics of levo. Discussed case with hospitalist Dr. Parker who accept patient to the ICU. I updated the patient's family member at bedside all question concerns answered. Lab Data Labs: Laboratory Results - last 24 hr 08/13/24 08/13/24 15:50 16:10 WBC 15.0 H RBC 3.70 L Hgb 11.9 L Hct 36.2 L MCV 97.8 MCH 32.2 H MCHC 32.9 RDW Std Deviation 56.1 H RDW Coeff of [place] 15.8 H Plt Count 188 MPV 10.5 Immature Gran % (Auto) 0.300 Neut % (Auto) 90.8 H Lymph % (Auto) 3.6 L [place] % (Auto) 5.2 Eos % (Auto) 0.0 Baso % (Auto) 0.1 Absolute Neuts (auto) 13.6 H Absolute Lymphs (auto) 0.54 L Nucleated RBC % 0.1 PT 14.8 INR 1.1 APTT 40.2 H Sodium 138 Potassium 4.3 Chloride 98 Carbon Dioxide 23.7 Anion Gap 17 H BUN 29 H Creatinine 1.48 H Estim Creat Clear Calc 45.10 L Est GFR (MDRD) Non-Af 37 L BUN/Creatinine Ratio 19.5 Glucose 149 H Lactic Acid 3.1 H* Calcium 9.2 Total Bilirubin 0.27 AST 27 ALT 17 Alkaline Phosphatase 130 H Troponin T High Sens 317 H* NT pro BNP II 3099 H Total Protein 7.4 Albumin 3.9 Globulin 3.5 Albumin/Globulin Ratio 1.1 Urine Color Yellow Urine Clarity Sl. Cloudy Urine pH 6.0 Ur Specific [place] 1.015 Urine Protein 30 H Urine Glucose (UA) Normal Urine Ketones Negative Urine Occult Blood 50 H Urine Nitrite Negative Urine Bilirubin Negative Urine Urobilinogen Normal Ur Leukocyte Esterase 500 H Urine RBC 0-5 SEEN Urine WBC 50-100 SEEN Ur Squamous Epith Cells 0-5 SEEN Urine Bacteria 3+ Urine Mucus 0 SEEN Radiography Diagnostic Testing: Clinical Impression(s) from Imaging Studies Chest X-Ray 08/13/24 16:35 IMPRESSION: Suspicion of bilateral pulmonary venous congestion. Reading Location: [place] [address] Discharge Plan Triage Chief Complaint: Shortness of Breath ED Provider: Segundo Juarez Dx/Rx/DC Orders Clinical Impression: Acute hypoxic respiratory failure, UTI (urinary tract infection), CHF exacerbation, Acidosis, lactic, Type 2 PR (myocardial infarction) Prescriptions: No Action albuterol sulfate 2.5 mg /3 mL (0.083 %) solution for nebulization 2.5 mg inhalation DAILY PRN (Reason: shortness of breath or wheezing) Artificial Tears(glycerin-peg) 1-0.3 % drops 2 drp ophthalmic (eye) Q4H PRN (Reason: dry eye(s)) atorvastatin 20 mg tablet 20 mg PO QHS clonazepam 0.5 mg tablet 0.5 mg PO BID fluticasone propionate 220 mcg/actuation HFA aerosol inhaler 2 inh inhalation BID losartan 50 mg tablet 50 mg PO DAILY polyethylene glycol 3350 [Miralax] 17 gram/dose powder 17 g PO DAILY PRN (Reason: CONSTIPATION ) latanoprost 0.005 % drops 1 drp ophthalmic (eye) QHS clopidogrel 75 MG tablet 75 mg PO DAILY metoprolol succinate 100 MG tablet 100 mg PO DAILY hydrochlorothiazide 25 MG tablet 25 mg PO DAILY Qty: 0 phenobarbital 60 mg tablet 120 mg PO 0800 Patient Comments: PT TAKES 2 60MG TABS (120MG) EVERY MORNING. TAKES 3 TABS (180MG) EVERY SUN, MON, WED, TH, SAT ATBEDTIME. TAKES 1 TAB (60MG) EVERY TUES AND FRI AT BEDTIME. phenobarbital 60 mg tablet 180 mg PO WETHS Patient Comments: PT TAKES 2 60MG TABS (120MG) EVERY MORNING. TAKES 3 TABS (180MG) EVERY SUN, MON, SAT, , SAT ATBEDTIME. TAKES 1 TAB (60MG) EVERY TUES AND FRI AT BEDTIME. Rx Instructions: GIVE AT BEDTIME paliperidone 6 MG tablet 6 mg PO QHS acetaminophen 500 mg tablet 500 mg PO Q6H PRN (Reason: pain) levothyroxine 200 mcg tablet 200 mcg PO QHS nifedipine 90 mg tablet extended release 90 mg PO DAILY phenobarbital 60 mg tablet 60 mg PO Patient Comments: PT TAKES 2 60MG TABS (120MG) EVERY MORNING. TAKES 3 TABS (180MG) EVERY SUN, SAT, SAT, , SAT ATBEDTIME. TAKES 1 TAB (60MG) EVERY TUES AND FRI AT BEDTIME. cholecalciferol (vitamin D3) 25 mcg (1,000 unit) tablet 50 mcg PO DAILY escitalopram oxalate 10 mg Tablet 10 mg PO DAILY Qty: 0 0RF quetiapine 100 mg tablet 100 mg PO QHS triamcinolone acetonide 0.1 % cream 1 applic topical Q8 PRN (Reason: itching) ondansetron 4 mg tablet,disintegrating 4 mg PO Q4H PRN (Reason: nausea and vomiting) Rx Instructions: give 1st dose 30min before emetogenic chemo pantoprazole [Protonix] 40 mg tablet,delayed release (DR/EC) 40 mg PO BID albuterol sulfate 90 mcg/actuation HFA aerosol inhaler 2 puff inhalation Q4H PRN (Reason: shortness of breath or wheezing) montelukast 10 mg tablet 10 mg PO QHS Qty: 90 3RF Primary Care Provider: Panda Littlejohn Referrals: Richa Daniels MD [[facility]] - Print Language: Luxembourgish Disposition Disposition: Acute Care Hospital [facility] What to do if you have Problems For any increased pain, shortness of breath, bleeding, nausea or vomiting, chestpain, or any unexpected problems, contact your Primary Care Provider. Call [facility] ([phone]) or report tothe closest Emergency Room. Call 911 if necessary. 08/13/241943 Cosigner Signature (if applicable): CC: Dr. Panda Littlejohn MD ~ Signed [facility]03-06-2025 Radiology Diagnostic study note [facility] Imaging Services [address] [place] [address] Chest PA and Lateral MR#: [id number] Acct: [id number] Name: ADRIENNE MORRISON Rep #: [id number] : 1950 F 74 From: Jania Esquivel MD PCP: Dr. Panda Littlejohn MD Status: REG ER Study:Chest PA and Lateral Date of Exam: 08/13/24 Exam# [id number] Ordering Dr: Michelle Juarez DO PROCEDURE: AP UPRIGHT AND LATERAL CHEST REASON FOR EXAM: SHORTNESS OF BREATH. COUGH. TECHNIQUE: Frontal and lateral views of the chest. COMPARISON: None. FINDINGS: Suspicion of bilateral pulmonary venous congestive changes. Can not exclude a superimposed developing infiltrate. Mild cardiac enlargement. No pleural effusions. Atherosclerotic and tortuous aorta. Cardiac monitoring leads overlie the chest wall. Multilevel spondylosis. Exaggerated kyphosis of the thoracic spine. RAD/Chest PA and Lateral IMPRESSION: Suspicion of bilateral pulmonary venous congestion. Reading Location: [place] [address] CC: Dr. Panda Littlejohn MD; Dr. Segundo Juarez DO ~ Statistics Intern: Signed [facility]03-06-2025 Radiology Diagnostic study note [facility] Imaging Services [address], [place] [id number] Chest PA and Lateral MR#: [id number] Acct: [id number] Name: ADRIENNE MORRISON Rep #: [id number] : 1950 F 74 From: Jania Esquivel MD PCP: Dr. Panda iLttlejohn MD Status: REG ER Study:Chest PA and Lateral Date of Exam: 08/13/24 Exam# [id number] Ordering Dr: Michelle Juarez DO PROCEDURE: AP UPRIGHT AND LATERAL CHEST REASON FOR EXAM: SHORTNESS OF BREATH. COUGH. TECHNIQUE: Frontal and lateral views of the chest. COMPARISON: None. FINDINGS: Suspicion of bilateral pulmonary venous congestive changes. Can not exclude a superimposed developing infiltrate. Mild cardiac enlargement. No pleural effusions. Atherosclerotic and tortuous aorta. Cardiac monitoring leads overlie the chest wall. Multilevel spondylosis. Exaggerated kyphosis of the thoracic spine. RAD/Chest PA and Lateral IMPRESSION: Suspicion of bilateral pulmonary venous congestion. Reading Location: [place] [address] CC: Dr. Panda Littlejohn MD; Dr. Segundo Juarez DO ~ Statistics Intern: Signed [facility]03-06-2025 Discharge summary Author Segundo Juarez [facility] Note Date/Time August 13, 2024 8:00 pm [facility] Medical Records Department [address] [place] [address] Emergency Department Summary 08/13/24 MR#: [id number] Acct: [id number] Name: ADRIENNE MORRISON Rep #:[id number] : 1950 74 From: Segundo Juarez DO PCP: Dr. Panda Littlejohn MD Status:REG ER Location: ED ADDENDUM by Dr. Segundo Juarez DO on 08/13/24 at 1999 Discussed case with cardiology Dr. Saini and he states that you can give the patient aspirin this is likely type II myocardial infarction however without history of CHF can place the patient on heparin. Patient has a allergy history of shortness of breath with NSAIDs given the patient's respiratory status at this point time and her allergy we will hold off on the aspirin and will place her on heparin. I updated hospitalist Dr. Parker about our discussion. Patient did not require central line at this point time we will hold off and start heparin. Patient's CODE STATUS was confirmed with patient and daughter at bedside DNR CCA DNI. 08/13/241999<Electronically signed by Segundo Juarez DO> Cosigner Signature (if applicable): cc: Dr. Panda Littlejohn MD ~* Signed HPI History of Present Illness Chief Complaint: Shortness of Breath Narrative Narrative: Patient is a 74-year-old female with a past medical history of CVA, seizures, RA, MARY, COPD on 2 L nasal cannula at night, hypothyroidism,, GERD, schizophrenia, hypertension who presented to the emergency department with a chief complaint of cough shortness of breath. According to EMS when they arrived she was on 2 L and she was noted be hypoxic at 73% they placed her on 5 L got her to 80% and brought her here for the valuation management. There is concerned that she had aspiration earlier today as she vomited while she was laying down. She recently tested positive for influenza according to staff and EMS. Patient states that she feels short of breath [facility] Medical History Epilepsy Hammer toes of both feet Cerebrovascular disease Age related cataract Wears glasses Wears hearing aid Rash Walker as ambulation aid Easy bruising History of diverticulitis Gastric reflux Non-smoker Shortness of breath on exertion Vericose veins History of CVA (cerebrovascular accident) Seizure disorder Thyroid disorder Rheumatoid arthritis Diverticulitis Sleep apnea COPD (chronic obstructive pulmonary disease) Diabetes mellitus type 2 in obese Benign essential hypertension Convulsion Osteoarthritis Hypothyroid TIA (transient ischemic attack) Hypercholesterolemia Anemia in chronic illness Allergic rhinitis Glaucoma Morbid obesity Peripheral venous insufficiency GERD (gastroesophageal reflux disease) Asthma Schizophrenia Depression Anxiety disorder Hyperlipidemia Hypertension Home Medications ?Medication ?Instructions ?Recorded ?Last Taken ?Type clopidogrel 75 mg tablet 75 mg PO DAILY 03/28/1307/03 History hydrochlorothiazide 25 mg tablet 25 mg PO DAILY ##0 03/10/24 History metoprolol succinate 100 mg 100 mg PO DAILY 03/28/13 0 12/19/20 History tablet,extended release 24 hr paliperidone 6 mg tablet,extended 6 mg PO QHS 01/31/17 03/10/24 History release 24 hr montelukast 10 mg tablet 10 mg PO QHS #90 tabs 03/10/24 Rx albuterol sulfate 2.5 mg/3 mL 2.5 mg inhalation DAILY PRN 11/27/23 Unknown History (0.083 %) solution for nebulization shortness of breat h or wheezing atorvastatin 20 mg tablet 20 mg PO QHS 11/27/23 History clonazepam 0.5 mg tablet 0.5 mg PO BID 11/27/2303/10 History fluticasone propionate 220 2 inh inhalation BID 03/10/24 History mcg/actuation HFA aerosol inhaler latanoprost 0.005 % eye drops 1 drp ophthalmic (eye) Q HS 11/27/23 03/10/24 History losartan 50 mg tablet 50 mg PO DAILY 11/27/2307/03 History phenobarbital 60 mg tablet 120 mg PO 0800 11/27/23 Unk nown History phenobarbital 60 mg tablet 180 mg PO SUMOWETHSA seizur es 11/27/23 Unknown History polyethylene glycol 3350 17 17 g PO DAILY PRN CONSTIPA TION 11/27/23 03/10/24 History gram/dose oral powder (Miralax) propylene glycol 1 %-glycerin 0.3 2 drp ophthalmic (ey e) Q4H PRN dry 11/27/23 Unknown History % eye drops (Artificial Tears eye(s) (glycerin-peg)) acetaminophen 500 mg tablet 500 mg PO Q6H PRN pain 08/0303/10/24 History cholecalciferol (vitamin D3) 25 50 mcg PO DAILY Unknown History mcg (1,000 unit) tablet levothyroxine 200 mcg tablet 200 mcg PO QHS 03/11/24 1 History nifedipine 90 mg tablet,extended 90 mg PO DAILY 03/10/24 History release phenobarbital 60 mg tablet 60 mg PO TUFR seizures 08/0303/10/24 History escitalopram oxalate 10 mg tablet 10 mg PO DAILY #0 ta bs 03/16/24 Unknown Rx albuterol sulfate 90 mcg/actuation 2 puff inhalation Q 4H PRN 08/13/24 Unknown History aerosol inhaler shortness of breath or wheez ing ondansetron 4 mg disintegrating 4 mg PO Q4H PRN nausea and vomiting 08/13/24 Unknown History tablet pantoprazole 40 mg tablet,delayed 40 mg PO BID 5 Unknown History release (Protonix) quetiapine 100 mg tablet 100 mg PO QHS 08/13/24 Unkno wn History triamcinolone acetonide 0.1 % 1 applic topical Q8 PRN itching 08/13/24 Unknown History topical cream Allergy/AdvReac Type Severity Reaction Status Date / Time amoxicillin Allergy NEEDS Verified 03/11/24 08:36 FOLLOW-UP codeine Allergy Shortness Verified 03/11/24 08:36 of breath cyclobenzaprine (From Allergy NEEDS Verified 03/11/24 08:36 Flexeril) FOLLOW-UP dextromethorphan HBr (From Allergy Shortness Verified 03/11/24 08:36 Tylenol Cold Multi-Symptom) of breath diazepam (From Valium) Allergy Shortness Verified 03/11/24 08:36 of breath fluticasone (From Advair Allergy NEEDS Verified 03/11/24 08:36 Diskus) FOLLOW-UP Food Allergies: Uncoded Allergy Shortness Verified 03/11/24 08:36 of breath guaifenesin (From Tylenol Allergy Shortness Verified 03/11/24 08:36 Cold Multi-Symptom) of breath hydrocodone bitartrate (From Allergy Shortness Verified 03/11/24 08:36 Vicodin) of breath iodine Allergy Anaphylaxis Verified 03/11/24 08:36 Latex, Natural Rubber Allergy Shortness Verified 03/11/24 08:36 of breath morphine Allergy Shortness Verified 03/11/24 08:36 of breath NSAIDS (Non-Steroidal Allergy Shortness Verified 03/11/24 08:36 Anti-Inflamma of breath oxaprozin (From Daypro) Allergy NEEDS Verified 03/11/24 08:36 FOLLOW-UP oxycodone Allergy NEEDS Verified 03/11/24 08:36 FOLLOW-UP phenylephrine HCl (From Allergy Shortness Verified 03/11/24 08:36 Tylenol Cold Multi-Symptom) of breath phenytoin (From Dilantin) Allergy NEEDS Verified 03/11/24 08:36 FOLLOW-UP phenytoin sodium (From Allergy Shortness Verified 03/11/24 08:36 Dilantin) of breath phenytoin sodium extended Allergy Shortness Verified 03/11/24 08:36 (From Dilantin) of breath povidone-iodine (From Allergy BLISTERS Verified 03/11/24 08:36 Betadine) pseudoephedrine HCl (From Allergy Shortness Verified 03/11/24 08:36 Tylenol Cold Multi-Symptom) of breath salmeterol (From Advair Allergy NEEDS Verified 03/11/24 08:36 Diskus) FOLLOW-UP shellfish derived Allergy NEEDS Verified 03/11/24 08:36 FOLLOW-UP soap (From Betadine) Allergy BLISTERS Verified 03/11/24 08:36 tetracycline Allergy NEEDS Verified 03/11/24 08:36 FOLLOW-UP tositumomab iodine-131 Allergy NEEDS Verified 03/11/24 08:36 FOLLOW-UP muscle relaxers Allergy Shortness Uncoded 05/22/23 11:04 of breath Family History Other Arthritis CVA (cerebral vascular accident) Cancer Depression Diabetes Emphysema lung Hypertension Surgical History History of cholecystectomy History of tonsillectomy History of total hysterectomy History of total knee replacement History of bilateral tympanoplasty History of tubal ligation History of D&C Social History Smoking Status: Never smoker second hand exposure: Yes alcohol intake: never substance use type: does not use what type of physical activity do you participate in: walking do you feel safe at home: Yes ROS ROS ED ROS Narrative Constitutional: Denies fevers, chills, headaches Eyes: Denies change in vision double vision blurry vision Cardiovascular: Denies chest pain or palpitations Respiratory: Complains cough and shortness of breath Abdomen: Complains of nausea denies abdominal pain vomiting diarrhea : Denies any urinary symptoms Neurological: Denies numbness, weakness, tingling Musculoskeletal: Denies back pain Skin: Denies rashes or lesions EXAM Physical Exam Narrative Exam Narrative: General: Patient lying in bed rest comfortably did not appear to be in acute distress Head: Atraumatic, normocephalic Eyes: PERRL bilaterally, EOMI bilaterally, no conjunctival injection noted Neck: Soft, supple, trachea midline Cardiovascular: Regular rate and rhythm no murmurs gallops rubs noted Respiratory: Patient has coarse breath sounds bilaterally Abdomen: Soft, nondistended, bowel sounds present x 4 no tenderness palpation Extremities: +4/5 strength noted in the bilateral upper and lower extremities, radial pulses +2/4 in the bilateral per extremities Neurological: Patient following commands knew that she was at [facility] Skin: Warm, dry, intact Const Vital Signs: 08/13/24 15:38 08/13/24 15:38 08/13/24 15:42 Temperature 101 F H 101 F H Temperature Source Axillary Axillary Pulse Rate 97 94 Respiratory Rate 26 H 22 H Respiratory Effort Short of Breath Respiratory Pattern Tachypnea Blood Pressure 87/58 L 87/58 L Blood Pressure Mean 67 67 Pulse Ox 80 86 Oxygen Delivery Method Room Air Nasal Cannula Oxygen Flow Rate (L/min) 6 Fraction of Inspired Oxygen (FIO2) 08/13/24 15:43 08/13/24 16:38 08/13/24 17:01 Temperature Temperature Source Pulse Rate 86 Respiratory Rate 25 H Respiratory Effort Respiratory Pattern Normal Blood Pressure 82/56 L Blood Pressure Mean 64 Pulse Ox 89 90 Oxygen Delivery Method Nasal Cannula High Flow Oxygen Flow Rate (L/min) 6 15 Fraction of Inspired Oxygen (FIO2) 86 70 08/13/24 17:01 08/13/24 18:04 08/13/24 18:47 Temperature Temperature Source Pulse Rate 82 80 81 Respiratory Rate 19 H 21 H 19 H Respiratory Effort Respiratory Pattern Normal Blood Pressure 75/51 L 79/60 L Blood Pressure Mean 59 66 Pulse Ox 93 94 94 Oxygen Delivery Method Bi-pap Bi-pap Oxygen Flow Rate (L/min) Fraction of Inspired Oxygen (FIO2) 70 08/13/24 19:05 08/13/24 19:05 08/13/24 19:24 Temperature 98.8 F 98.8 F Temperature Source Axillary Pulse Rate 82 82 82 Respiratory Rate 21 H 21 H 19 H Respiratory Effort Respiratory Pattern Blood Pressure 84/59 L 84/59 L 87/69 L Blood Pressure Mean 67 67 75 Pulse Ox 95 96 96 Oxygen Delivery Method Bi-pap Bi-pap Oxygen Flow Rate (L/min) Fraction of Inspired Oxygen (FIO2) MDM MDM MDM Narrative Medical decision making narrative: Patient is a 74-year-old female who presented to the emergency department the chief complaint of hypoxia, influenza positive and shortness of breath. On the differential diagnose includes but limited to pneumonia, ACS, pneumothorax, upper respiratory infection secondary to viral etiology. Once workup is obtained reviewed she will be reevaluated. Patient be given 30 cc/kg bolus of IV fluids based on ideal body weight as her BMI is greater than 30 this was ordered at 1545. Patient was febrile she will be given a gram of Tylenol. Patient be given Zofran Patient's CBC was reviewed she was significant for leukocytosis of 15,000, hemoglobin 11.9, plate count noted be 188. Patient's sodium normal 130, testingnormal 4.3, creatinine was 1.48 indicating acute kidney injury, glucose was 9149she does have an anion gap of 17. Patient lactic acid was elevated at 3.1. Patient AST and ALT were 27 and 17 respectively. Patient troponin elevated at 317, EKG was reviewed by myself which showed sinus rhythm with a rate of 94 bpm. Delta troponin pending, proBNP elevated 3099. Patient's urinalysis showed 500 leukocyte esterase negative nitrates 50-100 white cells with 3+ bacteria. Patient's chest x-ray was reviewed by myself by radiology and showed suspicion of bilateral pulmonary venous congestion. On reperfusion assessment patient's blood pressure systolic was noted to be on the soft side in the 70s however her MAP was 65 manual blood pressure was checked and was consistent with the monitor we will place her on 5 mics of Levophed. Patient was given vancomycin and cefepime at 1646. Patient's case will be discussed with hospitalist for admission to the intensivecare unit. Fluid reperfusion assessment was performed at 1800 and the patient's systolic blood pressure was noted to be 80 with a MAP of 66 therefore Levophed was started. On reevaluation the patient her MAP was 77 with a systolic of 89 with 5 mics of levo. Discussed case with hospitalist Dr. Parker who accept patient to the ICU. I updated the patient's family member at bedside all question concerns answered. Lab Data Labs: Laboratory Results - last 24 hr 08/13/24 08/13/24 15:50 16:10 WBC 15.0 H RBC 3.70 L Hgb 11.9 L Hct 36.2 L MCV 97.8 MCH 32.2 H MCHC 32.9 RDW Std Deviation 56.1 H RDW Coeff of Piedad 15.8 H Plt Count 188 MPV 10.5 Immature Gran % (Auto) 0.300 Neut % (Auto) 90.8 H Lymph % (Auto) 3.6 L [place] % (Auto) 5.2 Eos % (Auto) 0.0 Baso % (Auto) 0.1 Absolute Neuts (auto) 13.6 H Absolute Lymphs (auto) 0.54 L Nucleated RBC % 0.1 PT 14.8 INR 1.1 APTT 40.2 H Sodium 138 Potassium 4.3 Chloride 98 Carbon Dioxide 23.7 Anion Gap 17 H BUN 29 H Creatinine 1.48 H Estim Creat Clear Calc 45.10 L Est GFR (MDRD) Non-Af 37 L BUN/Creatinine Ratio 19.5 Glucose 149 H Lactic Acid 3.1 H* Calcium 9.2 Total Bilirubin 0.27 AST 27 ALT 17 Alkaline Phosphatase 130 H Troponin T High Sens 317 H* NT pro BNP II 3099 H Total Protein 7.4 Albumin 3.9 Globulin 3.5 Albumin/Globulin Ratio 1.1 Urine Color Yellow Urine Clarity Sl. Cloudy Urine pH 6.0 Ur Specific [place] 1.015 Urine Protein 30 H Urine Glucose (UA) Normal Urine Ketones Negative Urine Occult Blood 50 H Urine Nitrite Negative Urine Bilirubin Negative Urine Urobilinogen Normal Ur Leukocyte Esterase 500 H Urine RBC 0-5 SEEN Urine WBC 50-100 SEEN Ur Squamous Epith Cells 0-5 SEEN Urine Bacteria 3+ Urine Mucus 0 SEEN Radiography Diagnostic Testing: Clinical Impression(s) from Imaging Studies Chest X-Ray 08/13/24 16:35 IMPRESSION: Suspicion of bilateral pulmonary venous congestion. Reading Location: [place] [address] Discharge Plan Triage Chief Complaint: Shortness of Breath ED Provider: Segundo Juarez Dx/Rx/DC Orders Clinical Impression: Acute hypoxic respiratory failure, UTI (urinary tract infection), CHF exacerbation, Acidosis, lactic, Type 2 PR (myocardial infarction) Prescriptions: No Action albuterol sulfate 2.5 mg /3 mL (0.083 %) solution for nebulization 2.5 mg inhalation DAILY PRN (Reason: shortness of breath or wheezing) Artificial Tears(glycerin-peg) 1-0.3 % drops 2 drp ophthalmic (eye) Q4H PRN (Reason: dry eye(s)) atorvastatin 20 mg tablet 20 mg PO QHS clonazepam 0.5 mg tablet 0.5 mg PO BID fluticasone propionate 220 mcg/actuation HFA aerosol inhaler 2 inh inhalation BID losartan 50 mg tablet 50 mg PO DAILY polyethylene glycol 3350 [Miralax] 17 gram/dose powder 17 g PO DAILY PRN (Reason: CONSTIPATION ) latanoprost 0.005 % drops 1 drp ophthalmic (eye) QHS clopidogrel 75 MG tablet 75 mg PO DAILY metoprolol succinate 100 MG tablet 100 mg PO DAILY hydrochlorothiazide 25 MG tablet 25 mg PO DAILY Qty: 0 phenobarbital 60 mg tablet 120 mg PO 0800 Patient Comments: PT TAKES 2 60MG TABS (120MG) EVERY MORNING. TAKES 3 TABS (180MG) EVERY SUN, MON, SAT, TH, SAT AT BEDTIME. TAKES 1 TAB (60MG) EVERY TUES AND FRI AT BEDTIME. phenobarbital 60 mg tablet 180 mg PO WETHS Patient Comments: PT TAKES 2 60MG TABS (120MG) EVERY MORNING. TAKES 3 TABS (180MG) EVERY SUN, SAT, SAT, , SAT AT BEDTIME. TAKES 1 TAB (60MG) EVERY TUES AND FRI AT BEDTIME. Rx Instructions: GIVE AT BEDTIME paliperidone 6 MG tablet 6 mg PO QHS acetaminophen 500 mg tablet 500 mg PO Q6H PRN (Reason: pain) levothyroxine 200 mcg tablet 200 mcg PO QHS nifedipine 90 mg tablet extended release 90 mg PO DAILY phenobarbital 60 mg tablet 60 mg PO Patient Comments: PT TAKES 2 60MG TABS (120MG) EVERY MORNING. TAKES 3 TABS (180MG) EVERY SUN, SAT, SAT, , SAT AT BEDTIME. TAKES 1 TAB (60MG) EVERY TUES AND FRI AT BEDTIME. cholecalciferol (vitamin D3) 25 mcg (1,000 unit) tablet 50 mcg PO DAILY escitalopram oxalate 10 mg Tablet 10 mg PO DAILY Qty: 0 0RF quetiapine 100 mg tablet 100 mg PO QHS triamcinolone acetonide 0.1 % cream 1 applic topical Q8 PRN (Reason: itching) ondansetron 4 mg tablet,disintegrating 4 mg PO Q4H PRN (Reason: nausea and vomiting) Rx Instructions: give 1st dose 30min before emetogenic chemo pantoprazole [Protonix] 40 mg tablet,delayed release (DR/EC) 40 mg PO BID albuterol sulfate 90 mcg/actuation HFA aerosol inhaler 2 puff inhalation Q4H PRN (Reason: shortness of breath or wheezing) montelukast 10 mg tablet 10 mg PO QHS Qty: 90 3RF Primary Care Provider: Panda Littlejohn Referrals: Richa Daniels MD [[facility]] - Print Language: Luxembourgish Disposition Disposition: Acute Care Hospital [facility] What to do if you have Problems For any increased pain, shortness of breath, bleeding, nausea or vomiting, chestpain, or any unexpected problems, contact your Primary Care Provider. Call [facility] ([phone]) or report to the closest Emergency Room. Call 911 if necessary. 08/13/241943 <Electronically signed by Segundo Juarez DO> Kanaigner Signature (if applicable): CC: Dr. Panda Littlejohn MD ~ Signed [facility] Work Phone: [phone]) 985-770710-07-2024 [facility]07-26-2021 NoteHNO ID: [id number] Author: Dia Berry PA-C Service: ? Author Type: Physician Back Panel Padder Type: Progress Notes Filed: 01/02/2021 8:00 PM Note Text: FOLLOW UP VISIT - ENDOSCOPY NAME: Adrienne Morrison [facility] NO.: [id number] DATE OF SERVICE: 12/30/2020 : 1950 REFERRING PHYSICIAN: Richa Daniels MD Adrienne is a patient I am following for positive Cologuard testing and GERD. Dr. Tenorio performed upper and lower endoscopy on 12/19/20. The patient was found to have a 5 mm rectal polyp which was removed, otherwise normal appearing colon and rectum. EGD showed normal esophagus, stomach and duodenum. Pathology from the rectal polyp demonstrated minimal acute inflammation and focal cryptitis, negative for malignancy. The patient notes no complaints since the procedure. No exam-phone encounter Assessment IMPRESSION: s/p colonoscopy with polypectomy, path showing minimal acute inflammation PLAN: The operative findings and pathology report were reviewed with the patient, and the patient has had the opportunity to ask questions and have questions answered. If the patient notes any problems or changes in bowel function, the patient should contact me immediately. Otherwise I recommend follow up endoscopy in 3-5 years. updated and recall letter generated. Patient verbalized understanding of all above and agreed with the plan Diagnoses: (Z86.010) History of colonic polyps (primary encounter diagnosis) I spent a total of 30 minutes on the date of the service which included preparing to see the patient, completing clinical documentation, counseling and educating the patient/family/caregiver, independently interpreting results (not separately reported) and communicating results to the patient/family/caregiver. [facility] NoteHNO ID: [id number] Author: Dia Berry PA-C Service: ? Author Type: Physician Back Panel Padder Type: Progress Notes Filed: 11/28/2020 12:48 AM Note Text: HISTORY AND PHYSICAL Adrienne Morrison 1950 REFERRING PHYSICIAN: MD Kam CHIEF COMPLAINT: Consult (Colonoscopy) HPI: The patient is a 70 year old female referred for endoscopy. She had a Cologuard test completed through her primary care physician which was positive, prompting this referral. Adrienne notes no colon complaints. Patient denies any change in bowel habits, weight changes, visible blood in stools, black tarry stools or abdominal pain. NOTES family history of colon cancer-brother. The patient NOTES frequent acid reflux, although she states this is improved a little recently with watching what she eats. Adrienne has undergone prior endoscopy. She had colonoscopy by Dr. Camarena 10/04/14 which showed diverticulosis with otherwise normal colon. 5 year repeat colonoscopy was recommended based on her family history. She had an EGD 01/30/[address] Lim, and an inflammatory polyp was noted on colonoscopy in 2009. Patient's past medical history is significant for COPD, asthma, TIAs, diabetes mellitus, seizures, hypertensive heart disease. Patient follows with Dr. Daniels for her chronic medical conditions. Patient is maintained on multiple routine medications including clonazepam, lorazepam, phenobarbital. She is also on clopidogrel which she notes she has been allowed to hold prior to multiple procedures in the past. The patient has had prior endoscopies performed under conscious sedation, states was on same medications including above when those were completed. She notes I was awake and watched the procedures but states tolerated these without discomfort. 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 [facility] - Stroke (cerebrum) (HCC) - Unspecified asthma(493.90) PAST SURGICAL HISTORY Procedure Laterality Date - COLONOSCOP W/ OR W/O [facility] SPEC 05/09/2005 Colonoscopy - COLONOSCOP W/ OR W/O [facility] SPEC 10/04/2014 Colonoscopy - COLONOSCOPY W/BX 05/17/2010 - DANDC, DIAG AND/OR THERAPEUTIC Dilation AND curettage - EGD W/O [facility] SPECIMEN W/BX 01/30/2012 - KNEE SCOPE,DIAGNOSTIC Arthroscopy, knee - REMOVAL GALLBLADDER - REMOVE TONSILS/ADENOIDS,<12 Y/O - STROKE PROFILE Current Outpatient Medications Medication Sig - escitalopram oxalate (LEXAPRO) 20 mg tablet Take 20 mg by mouth once daily. - NIFEdipine XL (ADALAT CC) 90 mg 24 hr tablet Take 90 mg by mouth once daily. - fluticasone (FLOVENT HFA) 220 mcg/actuation inhaler Inhale 2 Puffs as instructed twice daily. - Cholecalciferol, Vitamin D3, 2,000 unit cap Take 1 capsule by mouth once daily. - cetirizine (ZYRTEC) 10 mg tablet Take 10 mg by mouth once daily. - metoprolol succinate XL, long acting, (TOPROL XL) 100 mg Tb24 Take 1 tablet by mouth twice daily. - clopidogrel (PLAVIX) 75 mg tablet Take 1 tablet by mouth once daily. - clonazePAM (KLONOPIN) 1 mg tablet Take 1 tablet by mouth four times daily. - LORazepam (ATIVAN) 0.5 mg Tab Take 1 tablet by mouth three times daily as needed. - lovastatin (MEVACOR) 20 mg ORAL tablet Take one(1) tablet daily. - paliperidone (INVEGA) 6 mg ORAL 24 hr tablet one tab at HS - omeprazole magnesium(PRILOSEC OTC 20 MG TAB) Take one(1) tablet twice daily. - OXYGEN-AIR DELIVERY SYSTEMS DEVICE as directed - PHENOBARBITAL 60 MG TAB three in the am AND two at night - LEVOTHYROXINE SODIUM 300 MCG TAB Take one(1) tablet daily. - THERAPEUTIC MULTIVITAMIN TAB Take one(1) tablet daily. - HYDROCHLOROTHIAZIDE 25 MG TAB Take one(1) tablet daily. - SINGULAIR 10 MG TAB Take one(1) tablet daily. No current facility-administered medications for this visit. ALLERGIES: Morphine, Banana Peel [Other], Codeine, Dilantin [Phenytoin], Latex, Pain Killers [Other], Passion Fruit [Other], Shellfish, Sleeping Pills [Other], Steroids [Betamethasone Dipropionate], Tylenol Cold [Big-Gilpaqwde-Eb-Acetaminophen], Valium [Diazepam], and Vicodin [Hydrocodone-Acetaminophen] PERSONAL HISTORY: Social History Tobacco Use - Smoking status: Never Smoker Substance Use Topics - Alcohol use: No - Drug use: Not on file FAMILY HISTORY: FAMILY HISTORY Problem Relation Age of Onset - Heart Mother HTN,DM,RAPID HEART BEAT - Emphysema Father HEART - Colon Cancer Brother - other (HTN [Other]) Sister HEART, DIABTES - other (Other [Other]) Unknown all siblings have had colon polyps. (more content not included)...[facility] Author Lc Head [facility] Note Date/Time August 17, 2024 11: 22am [facility] Medical Records Department [address] [place] [address] Discharge Summary 08/17/24 1118 MR#: [id number] Acct: [id number] Name: ADRIENNE MORRISON Rep #:[id number] : 1950 74 From: Lc Head MD PCP: Dr. Panda Littlejohn MD Status:ADM [place] [facility] [id number] Providers Date of Admission: 08/13/24 Date of Discharge: 08/17/24 Primary Care Physician: Dr. Panda Littlejohn MD Consultations 08/13/24 20:54 Consult: Cardiology Routine Consulting Provider: Rubina Saini Reason for Consult: Resp failure, HF Exac, NSTEMI demand related likely, Shock/UTI/PNA EMERGENT Consult: No Notified: Yes Date Notified: 08/13/24 Time Notified: 20:45 Method of Notification: Text Consult: Mail Processing Associate / Pulmonary Medicine Routine Consulting Provider: Pulmonary Medicine [facility] Reason for Consult: Resp distress, Septic shock, UTI/?Asp PNA, Influenza, HF Exac, NSTEMI EMERGENT Consult: No Notified: Yes Date Notified: 08/13/24 Time Notified: 20:37 Method of Notification: Text Comments:: Please send consult through to have patient seen. Reason For Visit: SEPTIC SHOCK, HF EXAC, NSTEMI, UTI, RESP FAILURE Diagnosis Discharge Diagnosis (1) Congestive heart failure: Status: Acute Code(s): I50.9 - Heart failure, unspecified (2) Type 2 PR (myocardial infarction): Status: Acute Code(s): I21.A1 - Myocardial infarction type 2 Plan Patient is a 74-year-old lady resident at [facility] who was broughtto the emergency department with shortness of breath. She was reported to have vomited and route with concern for aspiration chest x-ray obtained on admission demonstrated bilateral pulmonary venous congestion. An assessment of acute hypoxic respiratory failure was made patient started on BiPAP admitted to the intensive care unit for further management 1. Acute hypoxic respiratory failure ? Multifactorial including bilateral pulmonary venous congestion, aspiration pneumonia patient was placed on noninvasive ventilation started on broad- spectrum antibiotic therapy admitted to the intensive care unit with consult placed to supervising film or videotape editor ? 08/16/2024; patient was placed on BiPAP at night. With patient going into intermittent respiratory distress the day prior ordered portable chest x-ray this a.m. for subsequent ? Patient was assessed for home oxygen prior to being sent back to her [facility] facility 2. Septic shock ? Secondary to a combination of acute cystitis as well as recent influenza A infection with suspected bacterial pneumonia. Patient was started on broad- spectrum antibiotic therapy after cultures have been initiated. Patient was notresuscitated with IV fluids per protocol given concern for fluid overload status ? 08/15/2024 patient blood pressure has stabilized. Urine cultures positive for Streptococcus agalactiae patient remains on appropriate antibiotic therapy 3. Acute cystitis ? With Streptococcus agalactiae management as discussed above 4. Acute congestive heart failure?unspecified ? Patient management noninvasive ventilation BiPAP Lasix was held off given concern for relatively low blood pressure. Serial cardiac enzymes and echo ordered and cardiology consulted by admitting physician ? 08/15/2024 patient seen in consultation by cardiology notes and recommendations reviewed. 2D echo obtained did show Mild concentric left ventricular hypertrophy. The left ventricular ejection fraction is 60 %. Stage 1 diastolic dysfunction. Moderately dilated RV with moderate systolic dysfunction. The left atrium is moderately enlarged. Mild (1+) mitral valve insufficiency. Mild to moderate (1-2+) tricuspid valve insufficiency. Right ventricular systolic pressure estimated to be 50 mmHg. ? 08/16/2024; patient is in negative fluid balance of 3 L over the past 24 5. Elevated troponin ? Suspected to be secondary to demand ischemia from above echo has been ordered subsequent serial cardiac enzymes ordered ? 08/17/2024 Case was discussed with Dr. Saini with cardiology recommended for patient to undergo nuclear stress test. Patient nuclear stress test was negative for stress-induced ischemia 6. Elevated D-dimer ? Patient was started on heparin CTA was not ordered given patient acute kidney injury most show patient has allergy to dye plan is for patient to undergo evaluation VQ scan as well as lower extremity duplex ? 08/15/2024 patient bilateral venous duplex as well as VQ scan came back unremarkable systemic anticoagulation with heparin discontinued 7. Acute kidney injury ? Creatinine from 06/04/2024 was 0.82 creatinine on admission was 1.48 creatinine did bump up to 1.55. Patient AC suspected secondary to ischemic ATN 8. Anemia ? Secondary to chronic disorder monitoring H&H and transfuse if patient becomes symptomatic or hemoglobin falls below 7 ? 08/16/2024 hemoglobin remains low at 9.6 9. Hypothyroidism ? Patient is on levothyroxine home dose continued 10. Essential hypertension ? Patient is on losartan as well as HCTZ held given relatively low blood pressure as well as impaired kidney function 11. GERD ? Patient is on PPI 12. Schizophrenia ? Plan is to continue patient antipsychotic medications 13. Seizure disorder -controlled on phenobarbital plan is to resume following med rec 14. COPD/asthma ? Bronchodilator treatment as needed 15. Dyslipidemia ?Patient is on statin therapy, continued at home dose 16 . DVT prophylaxis ? Patient is on heparin Time spent in the patient's overall evaluation,decision-making process, review of diagnostic data, adjustment of management, discussion with other providers, nursing nursing and ancillary staff involved in patient's care documentation, 36minutes Medications at Discharge Home Medications clopidogrel 75 mg tablet 75 mg PO DAILY 03/28/13 metoprolol succinate 100 mg tablet,extended release 24 hr 100 mg PO DAILY 03/28/13 paliperidone 6 mg tablet,extended release 24 hr 6 mg PO QHS 01/31/17 montelukast 10 mg tablet 10 mg PO QHS #90 tabs 12/03/22 albuterol sulfate 2.5 mg/3 mL (0.083 %) solution for nebulization 2.5 mg inhalation DAILY PRN shortness of breath or wheezing 11/27/23 atorvastatin 20 mg tablet 20 mg PO QHS 11/27/23 clonazepam 0.5 mg tablet 0.5 mg PO BID 11/27/23 fluticasone propionate 220 mcg/actuation HFA aerosol inhaler 2 inh inhalation BID 11/27/23 latanoprost 0.005 % eye drops 1 drp ophthalmic (eye) QHS 11/27/23 losartan 50 mg tablet 50 mg PO DAILY 11/27/23 phenobarbital 60 mg tablet 120 mg PO 0800 11/27/23 phenobarbital 60 mg tablet 180 mg PO SUMOWETHSA seizures 11/27/23 polyethylene glycol 3350 17 gram/dose oral powder (Miralax) 17 g PO DAILY PRN CONSTIPATION 11/27/23 propylene glycol 1 %-glycerin 0.3 % eye drops (Artificial Tears (glycerin-peg)) 2 drp ophthalmic (eye) Q4H PRN dry eye(s) 11/27/23 acetaminophen 500 mg tablet 500 mg PO Q6H PRN pain 03/11/24 cholecalciferol (vitamin D3) 25 mcg (1,000 unit) tablet 50 mcg PO DAILY 03/11/24 levothyroxine 200 mcg tablet 200 mcg PO QHS 03/11/24 nifedipine 90 mg tablet,extended release 90 mg PO DAILY 03/11/24 phenobarbital 60 mg tablet 60 mg PO TUFR seizures 03/11/24 escitalopram oxalate 10 mg tablet 10 mg PO DAILY #0 tabs 03/16/24 albuterol sulfate 90 mcg/actuation aerosol inhaler 2 puff inhalation Q4H PRN shortness of breath or wheezing 08/13/24 ondansetron 4 mg disintegrating tablet 4 mg PO Q4H PRN nausea and vomiting 08/13/24 pantoprazole 40 mg tablet,delayed release (Protonix) 40 mg PO BID 08/13/24 quetiapine 100 mg tablet 100 mg PO QHS 08/13/24 triamcinolone acetonide 0.1 % topical cream 1 applic topical Q8 PRN itching 08/13/24 budesonide 0.5 mg/2 mL suspension for nebulization 0.5 mg (2 mL) inhalation BID #60 mL 08/17/24 cefdinir 300 mg capsule 300 mg PO BID #14 caps 08/17/24 furosemide 40 mg tablet (Lasix) 40 mg PO DAILY #90 tabs 08/17/24 guaifenesin 600 mg tablet, extended release 12 hr (Mucinex) 1,200 mg (2 x 600 mg) PO BID #20 tabs 03/10/25 prednisone 20 mg tablet 20 mg PO BID #10 tabs 08/17/24 Physical Exam Narrative GENERAL: Cooperative HEENT: Atraumatic; normocephalic EYES; Anicteric, Normal Conjunctiva NECK; supple, normal thyroid, RESPIRATORY: Diminished to auscultation CARDIOVASCULAR: Regular S1 S2, tachycardic GI: soft, normoactive bowel sounds, : No Renal angle tenderness; EXTREMITIES: edema, no clubbing, MUSCULOSKELETAL: no muscle wasting NEURO: Awake; no lateralizing signs. SKIN: No Rash PSYCH; Flat affect Weight / BMI Weight Weight: 144.2 kg Body Mass Index (BMI) 58.1 ABG / Lab / Microbiology Data 08/17/24 03:09 08/17/24 03:09 Laboratory: Laboratory Results - last 24 hr 08/17/24 03:09: WBC 7.7, RBC 3.15 L, Hgb 10.2 L, Hct 31.2 L, MCV 99.0, MCH 32.4 H, MCHC 32.7, RDW Std Deviation 56.3 H, RDW Coeff of Piedad 15.7 H, Plt Count 209, MPV 10.5, Immature Gran % (Auto) 0.600, Neut % (Auto) 79.9 H, Lymph % (Auto) 11.3 L, [place] % (Auto) 6.9, Eos % (Auto) 1.0, Baso % (Auto) 0.3, Absolute Neuts (auto) 6.2, Absolute Lymphs (auto) 0.87, Nucleated RBC % 0.3, Sodium 143, Potassium 3.6, Chloride 99, Carbon Dioxide 24.6, Anion Gap 19 H, BUN 35 H, Creatinine 0.85, Estim Creat Clear Calc 79.21, Est GFR (MDRD) Non-Af 72, BUN/Creatinine Ratio 41.4 H, Glucose 134 H, Calcium 9.0 Microbiology: Microbiology 08/14/24 08:45 Sputum, Expectorated/Coughed Gram Stain - Final 08/14/24 08:45 Sputum, Expectorated/Coughed Respiratory Culture - Final Streptococcus agalactiae (B) 08/13/24 15:50 Blood Culture (Wb) - Venous Blood Culture - Preliminary No growth in 48 hours. 08/13/24 15:50 Blood Culture (Wb) - Venous Blood Culture - Preliminary No growth in 48 hours. 08/13/24 16:10 Urine, Catheterized Urine Culture - Final Streptococcus agalactiae (B) 08/13/24 13:35 Mucosa - Nasopharyngeal Respiratory Panel (PCR) - Final 08/13/24 Unknown Mucosa - Nasopharyngeal SARS-CoV-2, Influenza & RSV (PCR) - Final 08/13/24 22:01 Nasal Secretion MRSA (PCR) - Final 08/13/24 22:01 Urine Catheter - Catheter Legionella Antigen - Final 08/13/24 22:01 Urine Catheter - Catheter Streptococcus pneumoniae Antigen (M- Final Radiography Diagnostic Testing: Radiology Impression Venous Doppler Study 08/14/24 00:10 Interpretation Summary Deep veins of the bilateral lower extremities are patent and compressible segmentally. There is no evidence of bilateral lower extremity deep vein thrombosis. The bilateral great saphenous veins appearpatent and compressible segmentally. Limited study Ordering Physician: Ibeth Parker Referring Physician: Panda Littlejohn Performed By: Corona Givens RVT D/C Instructions Discharge Diet: 8 Cup Fluid Restriction Discharge Activity: Return to Normal Activity Call your doctor if you observe: Fever of 101 or Higher, Shortness of breath, Fainting spells and Chest pain DC O2, CPAP, BIPAP Needs PSN CPAP & BiPAP: BiPAP & CPAP Settings per PSN Mode BiPAP 08/17/24 07:10 Bipap Delivery Device Face Mask 08/17/24 03:23 BiPAP Inspiratory Pressure 14 08/17/24 03:23 BiPAP Expiratory Pressure 9 08/17/24 03:23 BiPAP Rate 12 08/17/24 03:23 Fraction of Inspired Oxygen ( 30 08/17/24 03:23 FIO2) Home O2 Discharge instructions: Yes Type of respiratory needs?: Oxygen Oxygen frequency: Continuous Continuous oxygen liters per minute: 4 DC home with Oxygen: Yes Home O2 MD Review: I have reviewed the oxygen testing, and the patient qualifies for home oxygen equipment and portability. The patient is mobile in the home and the community. Meaningful Use Info Meaningful Use Meaningful Use Diagnoses (Choose all that apply): CHF CHF JEFFERSON/ARB ordered at discharge?: No Reason JEFFERSON/ARB not ordered?: Not indicated Documented LVEF (%): 60 Ischemic Stroke Statin Dosing Therapy Reference: STATIN DOSE THERAPY REFERENCE: * Patients > 75 years receive moderate or high dose statin therapy. * Patients 75 years or YOUNGER should receive HIGH intensity statin dose unless contraindicated. You will be required to document reason for non-treatment if statin daily dose does not meet guidelines. HIGH DOSE STATIN THERAPY DAILY Atorvastatin > than or = to 40 mg Rosuvastatin > than or = to 20 mg Amlodipine + Atorvastatin > than or = to 2.5/40 mg Ezetimibe + Simvastatin 10/80 mg Simvastatin 80mg Discharge Plan Admission Admit Date/Time: 08/13/24 19:28 Attending Provider: Lc Head Primary Care Provider: Panda Littlejohn Consulting Providers: Rubina Saini; Ibeth Parker Discharge Orders/Prescriptions Prescriptions: New cefdinir 300 mg capsule 300 mg PO BID Qty: 14 0RF guaifenesin [Mucinex] 600 mg tablet extended release 12hr 1,200 mg PO BID Qty: 20 0RF furosemide [Lasix] 40 mg tablet 40 mg PO DAILY Qty: 90 0RF prednisone 20 mg tablet 20 mg PO BID Qty: 10 0RF budesonide 0.5 mg/2 mL suspension for nebulization 0.5 mg inhalation BID Qty: 60 0RF Continued albuterol sulfate 2.5 mg /3 mL (0.083 %) solution for nebulization 2.5 mg inhalation DAILY PRN (Reason: shortness of breath or wheezing) Artificial Tears(glycerin-peg) 1-0.3 % drops 2 drp ophthalmic (eye) Q4H PRN (Reason: dry eye(s)) atorvastatin 20 mg tablet 20 mg PO QHS clonazepam 0.5 mg tablet 0.5 mg PO BID fluticasone propionate 220 mcg/actuation HFA aerosol inhaler 2 inh inhalation BID losartan 50 mg tablet 50 mg PO DAILY polyethylene glycol 3350 [Miralax] 17 gram/dose powder 17 g PO DAILY PRN (Reason: CONSTIPATION ) latanoprost 0.005 % drops 1 drp ophthalmic (eye) QHS clopidogrel 75 MG tablet 75 mg PO DAILY metoprolol succinate 100 MG tablet 100 mg PO DAILY phenobarbital 60 mg tablet 120 mg PO 0800 Patient Comments: PT TAKES 2 60MG TABS (120MG) EVERY MORNING. TAKES 3 TABS (180MG) EVERY SUN, MON, SAT, TH, SAT AT BEDTIME. TAKES 1 TAB (60MG) EVERY TUES AND FRI AT BEDTIME. phenobarbital 60 mg tablet 180 mg PO SUMOWETHSA Patient Comments: PT TAKES 2 60MG TABS (120MG) EVERY MORNING. TAKES 3 TABS (180MG) EVERY SUN, SAT, SAT, , SAT AT BEDTIME. TAKES 1 TAB (60MG) EVERY TUES AND FRI AT BEDTIME. Rx Instructions: GIVE AT BEDTIME paliperidone 6 MG tablet 6 mg PO QHS acetaminophen 500 mg tablet 500 mg PO Q6H PRN (Reason: pain) levothyroxine 200 mcg tablet 200 mcg PO QHS nifedipine 90 mg tablet extended release 90 mg PO DAILY phenobarbital 60 mg tablet 60 mg PO TU Patient Comments: PT TAKES 2 60MG TABS (120MG) EVERY MORNING. TAKES 3 TABS (180MG) EVERY SUN, SAT, SAT, , SAT AT BEDTIME. TAKES 1 TAB (60MG) EVERY TUES AND FRI AT BEDTIME. cholecalciferol (vitamin D3) 25 mcg (1,000 unit) tablet 50 mcg PO DAILY escitalopram oxalate 10 mg Tablet 10 mg PO DAILY Qty: 0 0RF quetiapine 100 mg tablet 100 mg PO QHS triamcinolone acetonide 0.1 % cream 1 applic topical Q8 PRN (Reason: itching) ondansetron 4 mg tablet,disintegrating 4 mg PO Q4H PRN (Reason: nausea and vomiting) Rx Instructions: give 1st dose 30min before emetogenic chemo pantoprazole [Protonix] 40 mg tablet,delayed release (DR/EC) 40 mg PO BID albuterol sulfate 90 mcg/actuation HFA aerosol inhaler 2 puff inhalation Q4H PRN (Reason: shortness of breath or wheezing) montelukast 10 mg tablet 10 mg PO QHS Qty: 90 3RF Discontinued hydrochlorothiazide 25 MG tablet 25 mg PO DAILY Qty: 0 Referrals / Follow Up: Richa Daniels MD [[facility] - Panda Littlejohn MD [Primary Care Provider] - Within 2 Weeks Disposition Disposition (needs filled in before D/C Order can be placed): [facility] Facility Charges/Coding Visit Charges Inpatient E&M: 72999 Disch Hosp >30min 08/17/24 1122 <Electronically signed by Lc Head MD> Cosigner Signature (if applicable): CC: Dr. Lc Head MD; Dr. Panda Littlejohn MD~ Signed [facility] Work Phone: Discharge summary Author Lc Head [facility] Note Date/Time August 17, 2024 11: 23am [facility] Medical Records Department [address] [place] [address] Transfer to [facility] MR#: [id number] Acct: [id number] Name: ADRIENNE MORRISON Rep #:[id number] : 1950 74 From: Lc Head MD PCP: Dr. Panda Littlejohn MD Status:ADM IN Certification of patient admission REQUIRED AT TIME OF ADMISSION. I CERTIFY THAT POST-HOSPITAL ECF SERVICES ARE REQUIRED TO BE GIVEN ON AN IN-PATIENT BASIS BECAUSE OF THE ABOVE NAMED PATIENT'S NEED FOR ASSISTED CARE ON A CONTINUING BASIS FOR THE CONDITION(S) FOR WHICH HE/SHE WAS RECEIVING IN-PATIENT HOSPITAL SERVICES PRIOR TO HIS/HER TRANSFER TO [facility]. 08/17/24 1123<Electronically signed by Lc Head MD> Diet Diet Order/Speech Therapy: 08/17/24 11:14 Diet: Cardiac - Heart Healthy Fluid restriction:: 1500 mL Diet Comments: Moisten dry textures, meds whole in , distant supervision Routine Orders/Code Status Code Status: DNRCC-A DC O2, CPAP, BIPAP needs Home O2 Discharge instructions: Yes Type of respiratory needs?: Oxygen Oxygen frequency: Continuous Continuous oxygen liters per minute: 4 Therapies Physical Therapy: Eval and Treat Occupational Therapy: Eval and Treat Speech Therapy: Eval and Treat Problem/Diagnosis (1) Congestive heart failure: Status: Acute Code(s): I50.9 - Heart failure, unspecified (2) Type 2 PR (myocardial infarction): Status: Acute Code(s): I21.A1 - Myocardial infarction type 2 Plan Patient is a 74-year-old lady resident at extended care facility who was broughtto the emergency department with shortness of breath. She was reported to have vomited and route with concern for aspiration chest x-ray obtained on admission demonstrated bilateral pulmonary venous congestion. An assessment of acute hypoxic respiratory failure was made patient started on BiPAP admitted to the intensive care unit for further management 1. Acute hypoxic respiratory failure ? Multifactorial including bilateral pulmonary venous congestion, aspiration pneumonia patient was placed on noninvasive ventilation started on broad- spectrum antibiotic therapy admitted to the intensive care unit with consult placed to supervising film or videotape editor ? 08/16/2024; patient was placed on BiPAP at night. With patient going into intermittent respiratory distress the day prior ordered portable chest x-ray this a.m. for subsequent ? Patient was assessed for home oxygen prior to being sent back to her extended care facility 2. Septic shock ? Secondary to a combination of acute cystitis as well as recent influenza A infection with suspected bacterial pneumonia. Patient was started on broad- spectrum antibiotic therapy after cultures have been initiated. Patient was notresuscitated with IV fluids per protocol given concern for fluid overload status ? 08/15/2024 patient blood pressure has stabilized. Urine cultures positive for Streptococcus agalactiae patient remains on appropriate antibiotic therapy 3. Acute cystitis ? With Streptococcus agalactiae management as discussed above 4. Acute congestive heart failure?unspecified ? Patient management noninvasive ventilation BiPAP Lasix was held off given concern for relatively low blood pressure. Serial cardiac enzymes and echo ordered and cardiology consulted by admitting physician ? 08/15/2024 patient seen in consultation by cardiology notes and recommendations reviewed. 2D echo obtained did show Mild concentric left ventricular hypertrophy. The left ventricular ejection fraction is 60 %. Stage 1 diastolic dysfunction. Moderately dilated RV with moderate systolic dysfunction. The left atrium is moderately enlarged. Mild (1+) mitral valve insufficiency. Mild to moderate (1-2+) tricuspid valve insufficiency. Right ventricular systolic pressure estimated to be 50 mmHg. ? 08/16/2024; patient is in negative fluid balance of 3 L over the past 24 5. Elevated troponin ? Suspected to be secondary to demand ischemia from above echo has been ordered subsequent serial cardiac enzymes ordered ? 08/17/2024 Case was discussed with Dr. Saini with cardiology recommended for patient to undergo nuclear stress test. Patient nuclear stress test was negative for stress-induced ischemia 6. Elevated D-dimer ? Patient was started on heparin CTA was not ordered given patient acute kidney injury most show patient has allergy to dye plan is for patient to undergo evaluation VQ scan as well as lower extremity duplex ? 08/15/2024 patient bilateral venous duplex as well as VQ scan came back unremarkable systemic anticoagulation with heparin discontinued 7. Acute kidney injury ? Creatinine from 06/04/2024 was 0.82 creatinine on admission was 1.48 creatinine did bump up to 1.55. Patient AC suspected secondary to ischemic ATN 8. Anemia ? Secondary to chronic disorder monitoring H&H and transfuse if patient becomes symptomatic or hemoglobin falls below 7 ? 08/16/2024 hemoglobin remains low at 9.6 9. Hypothyroidism ? Patient is on levothyroxine home dose continued 10. Essential hypertension ? Patient is on losartan as well as HCTZ held given relatively low blood pressure as well as impaired kidney function 11. GERD ? Patient is on PPI 12. Schizophrenia ? Plan is to continue patient antipsychotic medications 13. Seizure disorder -controlled on phenobarbital plan is to resume following med rec 14. COPD/asthma ? Bronchodilator treatment as needed 15. Dyslipidemia ?Patient is on statin therapy, continued at home dose 16 . DVT prophylaxis ? Patient is on heparin Time spent in the patient's overall evaluation,decision-making process, review of diagnostic data, adjustment of management, discussion with other providers, nursing nursing and ancillary staff involved in patient's care documentation, 36minutes Allergies/Procedures Done in Hospital Allergies amoxicillin Allergy (Verified 03/11/24 08:36) NEEDS FOLLOW-UP codeine Allergy (Verified 03/11/24 08:36) Shortness of breath cyclobenzaprine (From Flexeril) Allergy (Verified 03/11/24 08:36) NEEDS FOLLOW-UP dextromethorphan HBr (From Tylenol Cold Multi-Symptom) Allergy (Verified 03/11/24 08:36) Shortness of breath diazepam (From Valium) Allergy (Verified 03/11/24 08:36) Shortness of breath fluticasone (From Advair Diskus) Allergy (Verified 03/11/24 08:36) NEEDS FOLLOW-UP Food Allergies: Uncoded Allergy (Verified 03/11/24 08:36) Shortness of breath banana peels, passion fruit guaifenesin (From Tylenol Cold Multi-Symptom) Allergy (Verified 03/11/24 08:36) Shortness of breath hydrocodone bitartrate (From Vicodin) Allergy (Verified 03/11/24 08:36) Shortness of breath iodine Allergy (Verified 03/11/24 08:36) Anaphylaxis Latex, Natural Rubber Allergy (Verified 03/11/24 08:36) Shortness of breath morphine Allergy (Verified 03/11/24 08:36) Shortness of breath NSAIDS (Non-Steroidal Anti-Inflamma Allergy (Verified 03/11/24 08:36) Shortness of breath oxaprozin (From Daypro) Allergy (Verified 03/11/24 08:36) NEEDS FOLLOW-UP oxycodone Allergy (Verified 03/11/24 08:36) NEEDS FOLLOW-UP phenylephrine HCl (From Tylenol Cold Multi-Symptom) Allergy (Verified 03/11/24 08:36) Shortness of breath phenytoin (From Dilantin) Allergy (Verified 03/11/24 08:36) NEEDS FOLLOW-UP phenytoin sodium (From Dilantin) Allergy (Verified 03/11/24 08:36) Shortness of breath phenytoin sodium extended (From Dilantin) Allergy (Verified 03/11/24 08:36) Shortness of breath povidone-iodine (From Betadine) Allergy (Verified 03/11/24 08:36) BLISTERS pseudoephedrine HCl (From Tylenol Cold Multi-Symptom) Allergy (Verified 03/11/2408:36) Shortness of breath salmeterol (From Advair Diskus) Allergy (Verified 03/11/24 08:36) NEEDS FOLLOW-UP shellfish derived Allergy (Verified 03/11/24 08:36) NEEDS FOLLOW-UP soap (From Betadine) Allergy (Verified 03/11/24 08:36) BLISTERS tetracycline Allergy (Verified 03/11/24 08:36) NEEDS FOLLOW-UP tositumomab iodine-131 Allergy (Verified 03/11/24 08:36) NEEDS FOLLOW-UP muscle relaxers Allergy (Uncoded 05/22/23 11:04) Shortness of breath Type of Care/Length of Stay Estimated LOS: More Than 30 Days Type of Care Needed: Intermediate Rehab Potential: Fair Prognosis: Fair Additional Orders/Day of Discharge Day of Discharge: 08/17/24 Dietary and Speech Recommendations Dietitian Recommendations/Changes: Continue cardiac; 1500ml fluid restrictions. Will add consistent carbohydrate if glucose levels become elevated. Will monitor weight trends. Discharge Plan Admission Admit Date/Time: 08/13/24 19:28 Attending Provider: Lc Head Primary Care Provider: Panda Littlejohn Consulting Providers: Rubina Saini; Ibeth Parker Discharge Orders/Prescriptions Prescriptions: New cefdinir 300 mg capsule 300 mg PO BID Qty: 14 0RF guaifenesin [Mucinex] 600 mg tablet extended release 12hr 1,200 mg PO BID Qty: 20 0RF furosemide [Lasix] 40 mg tablet 40 mg PO DAILY Qty: 90 0RF prednisone 20 mg tablet 20 mg PO BID Qty: 10 0RF budesonide 0.5 mg/2 mL suspension for nebulization 0.5 mg inhalation BID Qty: 60 0RF Continued albuterol sulfate 2.5 mg /3 mL (0.083 %) solution for nebulization 2.5 mg inhalation DAILY PRN (Reason: shortness of breath or wheezing) Artificial Tears(glycerin-peg) 1-0.3 % drops 2 drp ophthalmic (eye) Q4H PRN (Reason: dry eye(s)) atorvastatin 20 mg tablet 20 mg PO QHS clonazepam 0.5 mg tablet 0.5 mg PO BID fluticasone propionate 220 mcg/actuation HFA aerosol inhaler 2 inh inhalation BID losartan 50 mg tablet 50 mg PO DAILY polyethylene glycol 3350 [Miralax] 17 gram/dose powder 17 g PO DAILY PRN (Reason: CONSTIPATION ) latanoprost 0.005 % drops 1 drp ophthalmic (eye) QHS clopidogrel 75 MG tablet 75 mg PO DAILY metoprolol succinate 100 MG tablet 100 mg PO DAILY phenobarbital 60 mg tablet 120 mg PO 0800 Patient Comments: PT TAKES 2 60MG TABS (120MG) EVERY MORNING. TAKES 3 TABS (180MG) EVERY SUN, SAT, SAT, TH, SAT AT BEDTIME. TAKES 1 TAB (60MG) EVERY TUES AND FRI AT BEDTIME. phenobarbital 60 mg tablet 180 mg PO SUMOWETHSA Patient Comments: PT TAKES 2 60MG TABS (120MG) EVERY MORNING. TAKES 3 TABS (180MG) EVERY SUN, SAT, SAT, TH, SAT AT BEDTIME. TAKES 1 TAB (60MG) EVERY TUES AND FRI AT BEDTIME. Rx Instructions: GIVE AT BEDTIME paliperidone 6 MG tablet 6 mg PO QHS acetaminophen 500 mg tablet 500 mg PO Q6H PRN (Reason: pain) levothyroxine 200 mcg tablet 200 mcg PO QHS nifedipine 90 mg tablet extended release 90 mg PO DAILY phenobarbital 60 mg tablet 60 mg PO TU Patient Comments: PT TAKES 2 60MG TABS (120MG) EVERY MORNING. TAKES 3 TABS (180MG) EVERY SUN, MON, WED, THURS, SAT AT BEDTIME. TAKES 1 TAB (60MG) EVERY TUES AND FRI AT BEDTIME. cholecalciferol (vitamin D3) 25 mcg (1,000 unit) tablet 50 mcg PO DAILY escitalopram oxalate 10 mg Tablet 10 mg PO DAILY Qty: 0 0RF quetiapine 100 mg tablet 100 mg PO QHS triamcinolone acetonide 0.1 % cream 1 applic topical Q8 PRN (Reason: itching) ondansetron 4 mg tablet,disintegrating 4 mg PO Q4H PRN (Reason: nausea and vomiting) Rx Instructions: give 1st dose 30min before emetogenic chemo pantoprazole [Protonix] 40 mg tablet,delayed release (DR/EC) 40 mg PO BID albuterol sulfate 90 mcg/actuation HFA aerosol inhaler 2 puff inhalation Q4H PRN (Reason: shortness of breath or wheezing) montelukast 10 mg tablet 10 mg PO QHS Qty: 90 3RF Discontinued hydrochlorothiazide 25 MG tablet 25 mg PO DAILY Qty: 0 Referrals / Follow Up: Richa Daniels MD [[facility] - Panda Littlejohn MD [Primary Care Provider] - Within 2 Weeks Disposition Disposition (needs filled in before D/C Order can be placed): [facility] Facility 08/17/24 1123 <Electronically signed by Lc Head MD> Cosigner Signature (if applicable): CC: Dr. Rubina Saini MD; Dr. Ibeth Parker MD; Dr. Panda Littlejohn MD ~ [facility] Work Phone: Evaluation note* Diagnosis Onset Date Resolution Status Asthma chronic MARY (obstructive sleep apnea) chronic Schizophrenia chronic [facility] Work Phone: Evaluation noteNo assessment information available [facility] Work Phone: Evaluation note* Diagnosis Onset Date Resolution Status Asthma chronic MARY (obstructive sleep apnea) chronic [facility] Work Phone: Reason for referral (narrative)No reason for referral information availableWPremier Health [facility] Work Phone: Summary Purpose Family History No Family History Records Found Relationship Condition Age at Onset Recorded Date/T gi Not Specified Diabetes mellitus Unknown Arthritis Unknown Depression Unknown Pulmonary emphysema Unknown Malignant neoplasm Unknown Hypertension Unknown Cerebrovascular accident (CVA) Unknown Relationship Condition Age at Onset Recorded Date/T gi mother Cerebrovascular accident (CVA) Unknown Malignant neoplasm Unknown Depression Unknown Diabetes mellitus Unknown Pulmonary emphysema Unknown Hypertension Unknown Arthritis Unknown father Cerebrovascular accident (CVA) Unknown Advance Directives No Advanced Directives Records Found Advance Directive Response Recorded Date/ Time Advance Directives Yes March 29, 2013 12:17am Living Will Yes June 16 8:02pm Power of Vice President Yes June 16 8:02pm Advance Directive Response Recorded Date/ Time Advance Directives Yes March 28, 2013 11:17pm Living Will Yes June 16 7:02pm Power of Vice President Yes June 16 7:02pm Advance Directive Response Recorded Date/ Time Living Will Yes August 13, 2024 3:38pm Power of Vice President Yes August 13 3:38pm Name of Medical Power of Vice President Colleen Armendariz August 13, 2024 3:38pm Advance Directives Yes March 28, 2013 11:17pm Advance Directive Response Recorded Date/ Time Living Will Yes August 13, 2024 9:49pm Power of Vice President Yes August 13 9:49pm Name of Medical Power of Vice President Colleen Meltoncoaimee August 13, 2024 9:49pm Advance Directives Yes March 29, 2013 12:17am Advance Directive Response Recorded Date/ Time Advance Directives Yes March 29, 2013 12:17am Chief Complaint and Reason for Visit Chief Complaint 1 Y FU SCREENING Reason for Visit Asthma MARY (obstructive sleep apnea) Schizophrenia Chief Complaint 1 Y FU SCREENING Reason for Visit Asthma MARY (obstructive sleep apnea) Chief Complaint 6 M FU ASSISTED LAB WORK Reason for Visit Asthma MARY (obstructive sleep apnea) Schizophrenia Chief Complaint Admit Date ASSISTED LAB WORK June 04 5:00am SEPTIC SHOCK, HF EXAC, NSTEMI, UTI, RESP FAILURE August 13, 2024 7:28pm Chief Complaint Admit Date ASSISTED LAB WORK June 04 5:00am SEPTIC SHOCK, HF EXAC, NSTEMI, UTI, RESP FAILURE August 13, 2024 7:28pm SEPTIC SHOCK, HF EXAC, NSTEMI, UTI, RESP FAILURE August 14, 2024 7:04am SEPTIC SHOCK, HF EXAC, NSTEMI, UTI, RESP FAILURE August 14, 2024 7:46am SEPTIC SHOCK, HF EXAC, NSTEMI, UTI, RESP FAILURE August 14, 2024 11:00am SEPTIC SHOCK, HF EXAC, NSTEMI, UTI, RESP FAILURE August 15, 2024 7:38am SEPTIC SHOCK, HF EXAC, NSTEMI, UTI, RESP FAILURE August 15, 2024 10:35am SEPTIC SHOCK, HF EXAC, NSTEMI, UTI, RESP FAILURE August 16, 2024 7:25am SEPTIC SHOCK, HF EXAC, NSTEMI, UTI, RESP FAILURE August 17, 2024 7:39am SEPTIC SHOCK, HF EXAC, NSTEMI, UTI, RESP FAILURE August 17, 2024 10:58am Reason for Visit Admit Date Congestive heart failure August 13, 2024 7:28pm NSTEMI (non-ST elevated myocardial infar ction) August 13, 2024 7:28pm Sepsis August 13, 2024 7:28 pm Septic shock August 13, 2024 7:28 pm Super obesity August 13, 2024 7:28 pm Type 2 PR (myocardial infarction) August 13, 2024 7:28pm UTI (urinary tract infection) August 13, 2024 7:28pm Wheezing August 13, 2024 7:28 pm Chief Complaint Admit Date ASSISTED LAB WORK October 21, 2024 5:0 0am 1 Y FU December 16, 2024 1:07p m Additional Source Comments INFORMATION SOURCE (unrecogn ized section and content) DATE CREATED AUTHOR 07/02/2021 [facility] DATE CREATED AUTHOR AUTHOR'S ORGANIZ ATION 02/13/[address] [facility] DATE CREATED AUTHOR AUTHOR'S ORGANIZ ATION 02/16/2025 [facility] Goals (unrecognized section and content) Goals may be documented in a n alternate sectionGoals may be documented in an alternate sectionGoals may be documented in an alternate sectionGoals may be documented in an alternate sectionGoals may be documented in an alternate sectionGoals may be documented in an alternate section Care Teams (unrecognized sec tion and content) Team Status: Active Member Role Status Dates Dr. Richa Daniels MD Family Provider Active Dr. Richa Daniels MD Primary Care Provider Active Team Status: Inactive Member Role Status Dates Dr. Richa Daniels MD Primary Care Provider, Referrin g Provider Active Dr. Teddy Saldana DO Attending Provider Active Team Status: Inactive Member Role Status Dates Dr. Richa Daniels MD Primary Care Prov ider, Attending Provider, Referring Provider Active Team Status: Inactive Member Role Status Dates Dr. Richa Daniels MD Primary Care Provider, Referrin g Provider Active Heide Figueroa IT INFRASTRUCTURE MANAGER, IT INFRASTRUCTURE MANAGER-C Attending Provider Active Team Status: Inactive Member Role Status Dates Dr. Richa Daniels MD Primary Care Provider, Attendin g Provider Active Team Status: Inactive Member Role Status Dates Dr. Richa Daniels MD Primary Care Provider Active Panda TRUONG MD Attending Provider Active Team Status: Active Member Role Status Dates Dr. Panda Littlejohn MD Primary Care Provider Active Team Status: Inactive Member Role Status Dates Dr. Richa Daniels MD Primary Care Provider Active Start: June 04, 2024 End: June 04, 2024 Panda TRUONG MD Attending Provider Active Start: June 04, 2024 End: June 04, 2024 Team Status: Active Member Role Status Dates Dr. Segundo Juarez DO Emergency Provider Active Start: August 13, 2024 Dr. Panda Littlejohn MD Primary Care Provider Active Start: August 13, 2024 Dr. Ibeth Parker MD Admit Provider Active St art: August 13, 2024 Dr. Ibeth Parker MD Attending Provider Active Start: August 13, 2024 Team Status: Inactive Member Role Status Dates Dr. Segundo Juarez DO Emergency Provider Active Start: August 13, 2024 End: August 17, 2024 Dr. Panda Littlejohn MD Primary Care Provider Active Start: August 13, 2024 End: August 17, 2024 Dr. Ibeth Parker MD Admit Provider Active St art: August 13, 2024 End: August 17, 2024 Dr. Ibeth Parker MD Other Provider Active St art: August 13, 2024 End: August 17, 2024 Dr. Rubina Saini MD Other Provider Active Star t: August 13, 2024 End: August 17, 2024 Dr. Lc Head MD Attending Provider Active Start: August 13, 2024 End: August 17, 2024 Dr. Robin Birch MD Other Provider Active Start: August 13, 2024 Dr. Silverio Donohue MD Other Provider Active Start: August 13, 2024 Dr. Shreyas Hinson MD Other Provider Active Star t: August 13, 2024 Dr. Teddy Saldana DO Other Provider Active Start : August 13, 2024 Dr. Lc Cazares MD Other Provider Active Sta rt: August 13, 2024 Dr. Cuong Weathers MD Other Provider Active St art: August 13, 2024 Dr. Renny Smith MD Other Provider Active S tart: August 13, 2024 Dr. Frieda Luna MD Other Provider Active Start: August 13, 2024 Dr. Camilo Mena MD Other Provider Active Start : August 13, 2024 Dr. León Bhatt MD Other Provider Active Start: August 13, 2024 Dr. Paresh Brunson MD Other Provider Active Start : August 13, 2024 Dr. Sherri Bartholomew MD Other Provider Active Star t: August 13, 2024 Dr. Gildardo Vora MD Other Provider Active Sta rt: August 13, 2024 Dr. Anna Smith MD Other Provider Active Sta rt: August 13, 2024 Dr. Marek Tiwari MD Other Provider Active Star t: August 13, 2024 Dr. Devan Colbert MD Other Provider Active St art: August 13, 2024 Dr. Rebel Madera MD Other Provider Active Star t: August 13, 2024 Dr. Carlo Reynoso , Other Provider Active St art: August 13, 2024 Dr. Nancy Albert MD Other Provider Active Start: August 13, 2024 Dr. Brandon Mathur MD Other Provider Active St art: August 13, 2024 Dr. Ace Jasso DO Other Provider Active Start: August 13, 2024 Dr. Phoenix Coley MD Other Provider Active Start: August 13, 2024 Dr. Rico Dent MD Other Provider Active Star t: August 13, 2024 Dr. Percy Lawson MD Other Provider Active Sta rt: August 13, 2024 Heide Figueroa IT INFRASTRUCTURE MANAGER, IT INFRASTRUCTURE MANAGER-C Other Provider Active Start: August 13, 2024 Elisa Jolly , IT INFRASTRUCTURE MANAGER-C Other Provider Active St art: August 13, 2024 Team Status: Active Member Role Status Dates Dr. Segundo Juarez DO Emergency Provider Active Start: August 14, 2024 Dr. Panda Littlejohn MD Primary Care Provider Active Start: August 14, 2024 Dr. Ibeth Parker MD Admit Provider Active St art: August 14, 2024 Dr. Ibeth Parker MD Other Provider Active St art: August 14, 2024 Dr. Rubina Saini MD Other Provider Active Star t: August 14, 2024 Dr. Robin Birch MD Other Provider Active Start: August 14, 2024 Dr. Silverio Donohue MD Other Provider Active Start: August 14, 2024 Dr. Shreyas Hinson MD Other Provider Active Star t: August 14, 2024 Dr. Teddy Saldana DO Other Provider Active Start : August 14, 2024 Dr. Lc Cazares MD Other Provider Active Sta rt: August 14, 2024 Dr. Cuong Weathers MD Other Provider Active St art: August 14, 2024 Dr. Renny Smith MD Other Provider Active S tart: August 14, 2024 Dr. Frieda Luna MD Other Provider Active Start: August 14, 2024 Dr. Camilo Mena MD Other Provider Active Start : August 14, 2024 Dr. León Bhatt MD Other Provider Active Start: August 14, 2024 Dr. Paresh Brunson MD Other Provider Active Start : August 14, 2024 Dr. Sherri Bartholomew MD Other Provider Active Star t: August 14, 2024 Dr. Gildardo Vora MD Other Provider Active Sta rt: August 14, 2024 Dr. Anna Smith MD Other Provider Active Sta rt: August 14, 2024 Dr. Marek Tiwari MD Other Provider Active Star t: August 14, 2024 Dr. Devan Colbert MD Other Provider Active St art: August 14, 2024 Dr. Rebel Madera MD Other Provider Active Star t: August 14, 2024 Dr. Carlo Reynoso DO Other Provider Active St art: August 14, 2024 Dr. Nancy Albert MD Other Provider Active Start: August 14, 2024 Dr. Brandon Mathur MD Other Provider Active St art: August 14, 2024 Dr. Ace Jasso DO Other Provider Active Start: August 14, 2024 Dr. Phoenix Coley MD Other Provider Active Start: August 14, 2024 Dr. Rico Dent MD Other Provider Active Star t: August 14, 2024 Dr. Percy Lawson MD Other Provider Active Sta rt: August 14, 2024 Heide Figueroa NP, IT INFRASTRUCTURE MANAGER-C Other Provider Active Start: August 14, 2024 Elisa Jolly , TARYN-C Other Provider Active St art: August 14, 2024 Dr. Lc Head MD Attending Provider Active Start: August 14, 2024 Dr. Lc Head MD Other Provider Active Star t: August 14, 2024 Team Status: Active Member Role Status Dates Dr. Segundo Juarez DO Emergency Provider Active Start: August 14, 2024 Dr. Panda Littlejohn MD Primary Care Provider Active Start: August 14, 2024 Dr. Ibeth Parker MD Admit Provider Active St art: August 14, 2024 Dr. Ibeth Parker MD Other Provider Active St art: August 14, 2024 Dr. Rubina Saini MD Other Provider Active Star t: August 14, 2024 Dr. Lc Head MD Other Provider Active Star t: August 14, 2024 Dr. Teddy Saldana DO Attending Provider Active S tart: August 14, 2024 Team Status: Active Member Role Status Dates Dr. Panda Littlejohn MD Primary Care Provider Active Start: August 14, 2024 Dr. Dallas Morris MD Attending Provider Active S tart: August 14, 2024 Team Status: Active Member Role Status Dates Dr. Segundo Juarez DO Emergency Provider Active Start: August 14, 2024 Dr. Panda Littlejohn MD Primary Care Provider Active Start: August 14, 2024 Dr. Ibeth Parker MD Admit Provider Active St art: August 14, 2024 Dr. Ibeth Parker MD Other Provider Active St art: August 14, 2024 Dr. Rubina Saini MD Attending Provider Active Start: August 14, 2024 Dr. Rubina Saini MD Other Provider Active Star t: August 14, 2024 Dr. Robin Birch MD Other Provider Active Start: August 14, 2024 Dr. Silverio Donohue MD Other Provider Active Start: August 14, 2024 Dr. Shreyas Hinson MD Other Provider Active Star t: August 14, 2024 Dr. Teddy Saldana , Other Provider Active Start : August 14, 2024 Dr. Lc Cazares MD Other Provider Active Sta rt: August 14, 2024 Dr. Cuong Weathers MD Other Provider Active St art: August 14, 2024 Dr. Renny Smith MD Other Provider Active S tart: August 14, 2024 Dr. Frieda Luna MD Other Provider Active Start: August 14, 2024 Dr. Camilo Mena MD Other Provider Active Start : August 14, 2024 Dr. León Bhatt MD Other Provider Active Start: August 14, 2024 Dr. Paresh Brunson MD Other Provider Active Start : August 14, 2024 Dr. Sherri Bartholomew MD Other Provider Active Star t: August 14, 2024 Dr. Gildardo Vora MD Other Provider Active Sta rt: August 14, 2024 Dr. Anna Smith MD Other Provider Active Sta rt: August 14, 2024 Dr. Marek Tiwari MD Other Provider Active Star t: August 14, 2024 Dr. Devan Colbert MD Other Provider Active St art: August 14, 2024 Dr. Rebel Madera MD Other Provider Active Star t: August 14, 2024 Dr. Carlo Reynoso DO Other Provider Active St art: August 14, 2024 Dr. Nancy Albert MD Other Provider Active Start: August 14, 2024 Dr. Brandon Mathur MD Other Provider Active St art: August 14, 2024 Dr. Ace Jasso DO Other Provider Active Start: August 14, 2024 Dr. Phoenix Coley MD Other Provider Active Start: August 14, 2024 Dr. Rico Dent MD Other Provider Active Star t: August 14, 2024 Dr. Percy Lawson MD Other Provider Active Sta rt: August 14, 2024 Heide Figueroa IT INFRASTRUCTURE MANAGER, IT INFRASTRUCTURE MANAGER-C Other Provider Active Start: August 14, 2024 Elisa Jolly , TARYN-C Other Provider Active St art: August 14, 2024 Dr. Lc Head MD Other Provider Active Star t: August 14, 2024 Team Status: Active Member Role Status Dates Dr. Segundo Juarez DO Emergency Provider Active Start: August 15, 2024 Dr. Panda Littlejohn MD Primary Care Provider Active Start: August 15, 2024 Dr. Ibeth Parker MD Admit Provider Active St art: August 15, 2024 Dr. Ibeth Parker MD Other Provider Active St art: August 15, 2024 Dr. Rubina Saini MD Other Provider Active Star t: August 15, 2024 Dr. Lc Head MD Attending Provider Active Start: August 15, 2024 Dr. Lc Head MD Other Provider Active Star t: August 15, 2024 Team Status: Active Member Role Status Dates Dr. Segundo Juarez DO Emergency Provider Active Start: August 15, 2024 Dr. Panda Littlejohn MD Primary Care Provider Active Start: August 15, 2024 Dr. Ibeth Parker MD Admit Provider Active St art: August 15, 2024 Dr. Ibeth Parker MD Other Provider Active St art: August 15, 2024 Dr. Rubina Saini MD Attending Provider Active Start: August 15, 2024 Dr. Rubina Saini MD Other Provider Active Star t: August 15, 2024 Dr. Lc Head MD Other Provider Active Star t: August 15, 2024 Team Status: Active Member Role Status Dates Dr. Segundo Juarez DO Emergency Provider Active Start: August 16, 2024 Dr. Panda Littlejohn MD Primary Care Provider Active Start: August 16, 2024 Dr. Ibeth Parker MD Admit Provider Active St art: August 16, 2024 Dr. Ibeth Parker MD Other Provider Active St art: August 16, 2024 Dr. Rubina Saini MD Other Provider Active Star t: August 16, 2024 Dr. Lc Head MD Attending Provider Active Start: August 16, 2024 Dr. Lc Head MD Other Provider Active Star t: August 16, 2024 Team Status: Active Member Role Status Dates Dr. Segundo Juarez DO Emergency Provider Active Start: August 17, 2024 Dr. Panda Littlejohn MD Primary Care Provider Active Start: August 17, 2024 Dr. Ibeth Parker MD Admit Provider Active St art: August 17, 2024 Dr. Ibeth Parker MD Other Provider Active St art: August 17, 2024 Dr. Rubina Saini MD Other Provider Active Star t: August 17, 2024 Dr. Lc Head MD Attending Provider Active Start: August 17, 2024 Dr. Lc Head MD Other Provider Active Star t: August 17, 2024 Team Status: Active Member Role Status Dates Dr. Segundo Juarez DO Emergency Provider Active Start: August 17, 2024 Dr. Panda Littlejohn MD Primary Care Provider Active Start: August 17, 2024 Dr. Ibeth Parker MD Admit Provider Active St art: August 17, 2024 Dr. Ibeth Parker MD Other Provider Active St art: August 17, 2024 Dr. Rubina Saini MD Other Provider Active Star t: August 17, 2024 Dr. Lc Head MD Other Provider Active Star t: August 17, 2024 Dr. Dinesh Medina MD Attending Provider Activ e Start: August 17, 2024 Team Status: Active Member Role/Relationship Status Dates Dr. Panda Littlejohn MD Primary Care Provider Active Team Status: Active Member Role/Relationship Status Dates Dr. Panda Littlejohn MD Primary Care Provider Active Start: October 07, 2024 Panda TRUONG MD Attending Provider Active Start: October 07, 2024 Team Status: Active Member Role/Relationship Status Dates Dr. Panda Littlejohn MD Primary Care Provider Active Start: October 21, 2024 Panda TRUONG MD Attending Provider Active Start: October 21, 2024 Team Status: Active Member Role/Relationship Status Dates Dr. Panda Littlejohn MD Primary Care Provider Active Start: December 08, 2024 Panda TRUONG MD Attending Provider Active Start: December 08, 2024 Team Status: Inactive Member Role/Relationship Status Dates Dr. Panda Littlejohn MD Primary Care Provider Active Start: December 16, 2024 End: December 16, 2024 Dr. Panda Littlejohn MD Referring Provider Active Start: December 16, 2024 End: December 16, 2024 Heide Figueroa NP, IT INFRASTRUCTURE MANAGER-C Attending Provider Active Start: December 16, 2024 End: December 16, 2024 FOR RECORDS PERTAINING TO PATIENTS WHO ARE OR HAVE BEEN ENROLLED IN A CHEMICAL DEPENDENCY/SUBSTANCEABUSE PROGRAM, SOME INFORMATION MAY BE OMITTED. This clinical summary was aggregated from multiple sources. Caution should be exercised in using it in the provision of clinical care. This summary normalizes information from multiple sources, and as a consequence, information in this document may materially change the coding, format and clinical context of patient data. In addition, data may be omitted in some cases. CLINICAL DECISIONS SHOULD BE BASED ON THE PRIMARY CLINICAL RECORDS. [facility] [employer] [facility] provides no warranty or guarantee of the accuracy or completeness of information in this document.
[2025-02-28 11:20] LABS: Red Blood Cells-Urine 0-5 SEEN /hpf (0-5)
[2025-02-28 11:26] LABS: Troponin T High Sensitivity 22 ng/L (<=14)
[2025-02-28 11:27] LABS: Barbiturate Urine PRESUMPTIVE POSITIVE (< 200 ng/mL); Benzodiazepine Urine PRESUMPTIVE POSITIVE (< 200 ng/mL); PCP Urine NEGATIVE (< 25 ng/mL); THC Urine NEGATIVE (< 50 ng/mL)
[2025-02-28 11:34] LABS: AST(SGOT) 29 U/L (<=31); Alanine Aminotransfer ALT/SGPT 35 U/L (<=34); Albumin, Serum 4.1 g/dL (3.4-4.8); Alkaline Phosphatase 127 U/L (35-104); Anion Gap 13 (5-15); BUN 30 mg/dL (4-19); BUN/Creat Ratio 31.3 RATIO (10-20); Calcium,Total 9.7 mg/dL (7.6-11.0); Carbon Dioxide 27.6 mmol/L (21.0-32.0); Chloride 98 mmol/L (98-108); Estimated Creatinine Clearance 69.63 ml/min (50-250); Globulin 3.3 g/dL (2.2-4.2); Glucose 172 mg/dL (70-99); Potassium 4.4 mmol/L (3.3-5.1)
[2025-02-28 11:48] LABS: Free T3 2.0 pg/mL (2.18-3.98)
[2025-02-28 11:51] LABS: Alcohol, Blood (Medical)-Serum < 10.1 mg/dL (<=10.0)
[2025-02-28] MEDS: Azithromycin 500 MG in 0.9% Normal Saline (250mL Bag) 250 ML 250 MG IV (12:23)
[2025-02-28 12:28] LABS: Pro- Brain NATRIURETIC PEPTIDE 75 pg/mL (<=1800)
[2025-02-28 13:20] LABS: Troponin T High Sens 2 HR 22 ng/L (<=14)
--- OUTSIDE RECORDS SUMMARY | 2025-02-28 13:30 | XMS RPT_ITS | CCD ---
Author Organization [facility] Care Team Providers Care Gang Knife Fish Chopper Name Role Phone Dr. Richa Daniels Primary Care Provider Dr. Richa Daniels Referring Provider [phone] Carolina ROOFING LAYER, ROOFING LAYER-C [place] Attending Provider [phone] Dr. Richa Daniels Primary Care Provider Dr. Richa Daniels Referring Provider [phone] Teddy Saldana Attending Provider Dr. Richa Daniels Primary Care Provider [phone] Richa Daniels Referring Provider [phone] Carolina ROOFING LAYER, ROOFING LAYER-C [place] Attending Provider [phone] MARISA GARRETT Referring Unavailable Dr. Richa Daniels [...] JUAN, Dr. Ibeth Regalado Other Provider [phone] Parveen JUAN, Dr. Cespedes Other Provider Adilene JUAN, Dr. Platt Attending Provider Unavaila roxanne Birch MD, Dr. Kelly Other Provider Jayde JUAN, Dr. Sawyer Other Provider Sravan JUAN, Dr. Pritchett Other Provider Les ARNOLD, Dr. Espinal Other Provider Debora JUAN, Dr. Lc Talbert Other Provider [phone] Jasiel JUAN, Dr. Hutchins Other Provider [phone] Sarah JUAN, Dr. Lawson Other Provider [phone] Cheryl JUAN, Dr. Malave Other Provider Rajesh JUAN, Dr. Page Other Provider [phone] Miller JUAN, Dr. Traore Other Provider [phone] Dr. Paresh Brunson MD Other Provider [phone] [place] JUAN, Dr. Polanco Other Provider [phone] Diony JUAN, Dr. Ewing Other Provider [facility] yessi Smith MD, Dr. Castillo Other Provider [phone] Karie JUAN, Dr. Jara Other Provider [phone] Devan Colbert MD Other Provider [phone] Cassy JUAN, Dr. Luque Other Provider [phone] Dr. Carlo Reynoso DO Other Provider [phone] Nancy Albert MD Other Provider [phone] Kevan JUAN, Dr. Taylor Other Provider [phone] Ace Jasso DO Other Provider Vianca JUAN, Dr. Garibay Other Provider Abel Dent MD, Dr. Gómez Other Provider [phone] Renny JUAN, Dr. Greer Other Provider Carolina ROOFING LAYER-C, [place] Other Provider Shanae ROOFING LAYER-C, Elisa Sehrman Other Provider Adilene JUAN, Dr. Platt Other Provider Unavailable Les ARNOLD, Dr. Espinal Attending Provider [phone] Alexandra JUAN, Dr. Haynes Attending Provider [phone] Parveen JUAN, Dr. Cespedes Attending Provider Adam JUAN, Dr. Montiel Attending Provider Nakul JUAN, Dr. Panda Hzd Primary Care Provider Nakul JUAN, Panda Hdz Attending Provider Unavailable Nakul JUAN, Dr. Panda Hdz Referring Provider Carolina ROOFING LAYER-C, [place] Attending Provider Panda Littlejohn Primary Care [...] Jolliff, Richa S Primary Care Unavailable Luis Hernández Attending Unavailable Ajit, Peng Admitting Unavailable Adeli, [...] Palma Consulting Unavailable Hansel Spears Consulting Unavailable oDm Morley Consulting Unavailable REANNA SIDHU Consulting Unavailable Jaciel Browne Consulting Unavailable Mataleah, Macrina Consulting Unavailable [facility], Peng Consulting Unavailable [facility], Peng Attending Unavailable [facility], Peng Consulting Unavailable [facility], Peng Admitting Unavailable Richa Daniels Primary Care Unavailable [facility], Peng Referring Unavailable Teddy Saldana Attending Unavailable [...] Consulting Unavailable Doyle Gaxiola Consulting Unavailable Rose Isas Consulting Unavailable Franky Huitron Consulting Unavailable Nilda [...] Consulting Unavailable SmithAnna evans Consulting Unavailable Karie, Mraek Consulting Unavailable Devan Colbert Consulting Unavailable Cassy, Rebel Consulting Unavailable Dhekevin, Carlo Consulting Unavailable Nancy Albert Consulting Unavailable Brandon Mathur Consulting Unavailable Ace Jasso Consulting Unavailable Phoenix Coley Consulting Unavailable Rico Dent Consulting Unavailable Percy Lawson Consulting Unavailable Carolina CENTENO, Heide Consulting Unavailable Elisa Jolly Consulting Unavailable Ibeth Parker Consulting Unavailable Lc Head Consulting Unavailable Lc Head Referring Unavailable Teddy Saldana Attending Unavailable Panda [...] Nakul Panda K Primary Care Unavailable Panda Martino Attending Unavailable Littlejohn, Panda K Primary Care Unavailable Littlejohn, Panda K Referring Unavailable [place]ide Figueroa NP Attending Unavailable Dinesh Medina Attending Unavailabl e Allergies Allergy Classification Reported Allergen(s) Allergy Type Date of Onset Reaction(s) Facility (7 sources) Codeine Drug Allergy 11-16-19 22 Shortness of breath [facility] (8 sources) Dextromethorphan; Translations: [dextromethorphan HBr] Drug Allergy 11-16-19 22 Shortness of breath [facility] (7 sources) diazePAM Drug Allergy 11-16-19 22 Shortness of breath [facility] (7 sources) guaiFENesin Drug Allergy 11-16-19 22 Shortness of breath [facility] (8 sources) HYDROcodone; Translations: [hydrocodone bitartrate] Drug Allergy 11-16-19 22 Shortness of breath [facility] (7 sources) Iodine Drug Allergy 11-16-19 22 Anaphylaxis [facility] (7 sources) Morphine Drug Allergy 11-16-19 22 Shortness of breath [facility] (8 sources) natural latex rubber; Translations: [Latex, Natural Rubber] Allergy to substance 11-16-19 22 Shortness of breath [facility] (8 sources) Phenylephrine; Translations: [phenylephrine HCl] Drug Allergy 11-16-19 22 Shortness of breath [facility] (8 sources) Phenytoin; Translations: [phenytoin sodium] Drug Allergy 11-16-19 22 Shortness of breath [facility] (8 sources) Phenytoin; Translations: [phenytoin sodium extended] Drug Allergy 11-16-19 22 Shortness of breath [facility] (7 sources) Povidone-Iodine Drug Allergy 11-16-19 22 BLISTERS [facility] (8 sources) Pseudoephedrine; Translations: [pseudoephedrine HCl] Drug Allergy 11-16-19 22 Shortness of breath [facility] (8 sources) soap; Translations: [soap] Allergy to substance 11-16-19 22 BLISTERS [facility] (2 sources) ANTI-INFLAMMATORY DRUGS Allergy to substance 11-16-19 22 Shortness of breath [facility] Work Phone: (2 sources) BANANA PEELS Allergy to substance 11-16-19 22 Shortness of breath [facility] Work Phone: (2 sources) PASSION FRUIT Allergy to substance 11-16-19 22 Shortness of breath [facility] Work Phone: (3 sources) SLEEPING PILLS Allergy to substance 11-16-19 22 Shortness of breath [facility] (8 sources) muscle relaxers; Translations: [muscle relaxers] Allergy to substance 11-16-19 22 Shortness of breath [facility] (5 sources) Nonsteroidal Anti-inflammatory Compounds Allergy to substance 11-15-19 23 Shortness of breath [facility] (6 sources) Food Allergies: Uncoded; Translations: [Food Allergies: Uncoded] Allergy to substance 11-15-19 23 Shortness of breath [facility] Comment on above: banana peels, passio n fruit (3 sources) Amoxicillin Drug Allergy 03-11-20 24 NEEDS FOLLOW-UP [facility] (3 sources) cyclobenzaprine Drug Allergy 03-11-20 24 NEEDS FOLLOW-UP [facility] (3 sources) fluticasone Drug Allergy 03-11-20 24 NEEDS FOLLOW-UP [facility] (3 sources) [id number] mab Drug Allergy 03-11-20 NEEDS FOLLOW-UP [facility] (3 sources) oxaprozin Drug Allergy 03-11-20 24 NEEDS FOLLOW-UP [facility] (3 sources) oxyCODONE Drug Allergy 03-11-20 24 NEEDS FOLLOW-UP [facility] (3 sources) Phenytoin Drug Allergy 03-11-20 24 NEEDS FOLLOW-UP [facility] (3 sources) salmeterol Drug Allergy 03-11-20 NEEDS FOLLOW-UP [facility] (4 sources) Shellfish; Translations: [shellfish derived] Allergy to substance 03-11-20 NEEDS FOLLOW-UP [facility] (3 sources) Tetracycline Drug Allergy 03-11-20 NEEDS FOLLOW-UP [facility] (1 source) Amoxicillin Drug Allergy 12-17-19 25 [facility] Repository (1 source) Codeine Drug Allergy 12-17-19 25 [facility] Repository (1 source) cyclobenzaprine Drug Allergy 12-17-19 25 [facility] Repository (1 source) diazePAM Drug Allergy 12-17-19 25 [facility] Repository (1 source) fluticasone Drug Allergy 12-17-19 25 [facility] Repository (1 source) guaiFENesin Drug Allergy 12-17-19 25 [facility] Repository (1 source) Iodine Drug Allergy 12-17-19 25 [facility] Repository (1 source) Morphine Drug Allergy 12-17-19 [facility] Repository (1 source) oxaprozin Drug Allergy 12-17-19 [facility] Repository (1 source) oxyCODONE Drug Allergy 12-17-19 [facility] Repository (1 source) Phenytoin Drug Allergy 12-17-19 [facility] Repository (1 source) Povidone-Iodine Drug Allergy 12-17-19 [facility] Repository (1 source) salmeterol Drug Allergy 12-17-19 [facility] Repository (1 source) Tetracycline Drug Allergy 12-17-19 [facility] Repository (1 source) tositumomab Drug Allergy 12-17-19 [facility] Repository (1 source) NSAIDS (Non-Steroidal Anti-Inflamma Drug allergy (disorder) 12-17-19 [facility] Repository Medications Current Medications Medication Drug Class(es) Dates Sig (Normalized) Sig (Original) acetaminophen 500 mg oral tablet (3 sources) Start: 03-11-2024 take 1 tablet by mouth every six hours as needed for pain Acetaminophen 500 mg tablet Active 500 mg PO EVERY 6 HOURS as needed for pain March 11, 2024 12:00am [id number] actuat albuterol 0.09 mg/actuat metered dose [...] March 28, 2013 12:00am polyethylene glycol [id number] mg powder for oral solution (3 sources) [...] 07-24-2018 Chronic Other aftercare (2 sources) 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 Submit a new specimen if indicated. Normal [facility] Comment on above: Performed By: #### L 400. ####[facility] [address] [place], [place], [id number] Urinalysis, Routine (Dipstic k)on 01-28-2025 BILIRUBIN URINE Negative Normal Negative [facility] Comment on above: Order Comment: CLEAN CATCH Performed By: #### L 400. ####[facility] [address] [place], [address] Clarity (U) Clear Normal Clear [facility] Comment on above: Order Comment: CLEAN CATCH Performed By: #### L 400.2010, ####[facility] [address] [place], [address] Color (U) Yellow Normal Yellow [facility] Comment on above: Order Comment: CLEAN CATCH Performed By: #### L 400.2010, ####[facility] [address] [place], [address] GLUCOSE, UR Normal Normal Normal [facility] Comment on above: Order Comment: CLEAN CATCH Performed By: #### L 400.2010, ####[facility] [address] [place], [address] KETONE UR Negative Normal Negative [facility] Comment on above: Order Comment: CLEAN CATCH Performed By: #### L 400.2010, ####[facility] [address] [place], [address] LEUK ESTERASE Negative Normal Negative [facility] Comment on above: Order Comment: CLEAN CATCH Performed By: #### L 400.2010, ####[facility] [address] [place], [address] Nitrite Ql (U) Negative Normal Negative [facility] Comment on above: Order Comment: CLEAN CATCH Performed By: #### L 400.2010, ####[facility] [address] [place], [address] OCCULT BLOOD-UR Negative Normal Negative [facility] Comment on above: Order Comment: CLEAN CATCH Performed By: #### L 400.2010, ####[facility] [address] [place], [address] pH UR 7.0 Normal 5.0 - 8.0 [facility] Comment on above: Order Comment: CLEAN CATCH Performed By: #### L 400.2010, ####[facility] [address] [place], [address] PROT DIPSTX Negative Normal Negative [facility] Comment on above: Order Comment: CLEAN CATCH Performed By: #### L 400.2010, ####[facility] [address] [place], [address] SP.GR. DIPSTX 1.005 Normal 1.002-1.030 [facility] Comment on above: Order Comment: CLEAN CATCH Performed By: #### L 400.2010, ####[facility] [address] [place], [address] UROBILI Normal Normal Normal [facility] Comment on above: Order Comment: CLEAN CATCH Performed By: #### L 400.2010, ####[facility] [address] [place], [address] Urine Cultureon 01-23-2025 URC Below infection leve l. Mixed Gram Positive Organisms [place] Count 1000-10,000 MIXC Mixed contaminants. Submit a new specimen if indicated. Normal [facility] Comment on above: Performed By: #### L 400.8999, ####[facility] [address] [place], [address] Urinalysis, Completeon 01-21 BACTERIA 0 SEEN Normal None Seen [facility] Comment on above: Order Comment: CLEAN CATCH Performed By: #### L 400.8999, ####[facility] [address] [place], [address] EPI,SQUAMOUS 0 SEEN Normal 5-10 [facility] Comment on above: Order Comment: CLEAN CATCH Performed By: #### L 400.0001, ####[facility] [address] [place], [address] Mucus Ql (Urine sed) 0 SEEN Normal [facility] Comment on above: Order Comment: CLEAN CATCH Performed By: #### L 400.0001, M100.2200 ####[facility] [address] [place], [address] RBC 0 SEEN Normal 0-5 [facility] Comment on above: Order Comment: CLEAN CATCH Performed By: #### L 400.0001, M100.2200 ####[facility] [address] [place], [address] WBC 0 SEEN Normal 0-5 [facility] Comment on above: Order Comment: CLEAN CATCH Performed By: #### L 400.0001, M100.0 ####[facility] [address] [place], [address] Urine Cultureon 01-14-2025 URC Normal [facility] Comment on above: Performed By: #### L 400.0001, .0 ####[facility] [address] [place], [address] Urinalysis, Completeon 01-11 BACTERIA 1+ /hpf Normal None Seen [facility] Comment on above: Order Comment: CLEAN CATCH Performed By: #### L 400.0001, M100.2200 ####[facility] [address] [place], [address] EPI,SQUAMOUS 0-5 SEEN Normal 5-10 [facility] Comment on above: Order Comment: CLEAN CATCH Performed By: #### L 400.0001, M100.0 ####[facility] [address] [place], [address] WBC 25-50 SEEN Normal 0-5 [facility] Comment on above: Order Comment: CLEAN CATCH Performed By: #### L 400.0001, M100.2200 ####[facility] [address] [place], [address] Mucus Ql (Urine sed) 0 SEEN Normal [facility] Comment on above: Order Comment: CLEAN CATCH Performed By: #### L 400.0001, M100.2200 ####[facility] [address] [place], [address] RBC 0 SEEN Normal 0-5 [facility] Comment on above: Order Comment: CLEAN CATCH Performed By: #### L 400.0001, M100.2200 ####[facility] [address] [place], [address] L3700.3000on 01-06-2025 PHENobarbital [Mass/Vol] 32 ug/mL Normal 15-40 [facility] Comment on above: Order Comment: 104.2 Result Comment: Dete ction Limit = 3Performed at: CB - [facility] [address] [id number] Director: Jose Vicente PhD, Phone: [phone] Performed By: #### L 100.0500, L500.2500, L500.4100, L3700.3000, L501.9520 ####[facility] [address] [place], [address] Basic Metabolic Profile (BMP )on 01-05-2025 BUN/CRE 27.4 RATIO High 10-20 [facility] Comment on above: Order Comment: 104.2 Performed By: #### L 100.0500, L500.2500, L500.4100, L3700.3000, L501.9520 ####[facility] [address] [place], [address] Calcium [Mass/Vol] 9.8 mg/dL Normal 7.6-11.[address] [facility] Comment on above: Order Comment: 104.2 Performed By: #### L 100.0500, L500.2500, L500.4100, L3700.3000, L501.9520 ####[facility] [address] [place], [address] Chloride [Moles/Vol] 98 mmol/L Normal 98-108 [facility] Comment on above: Order Comment: 104.2 Performed By: #### L 100.0500, L500.2500, L500.4100, L3700.3000, L501.9520 ####[facility] [address] [place], [address] CO2 [Moles/Vol] 28.6 mmol/L Normal 21.0-32.0 [facility] Comment on above: Order Comment: 104.2 Performed By: #### L 100.0500, L500.2500, L500.4100, L3700.3000, L501.9520 ####[facility] [address] [place], [address] Creatinine [Mass/Vol] 1.36 mg/dL High 0.70-1.20 [facility] Comment on above: Order Comment: 104.2 Performed By: #### L 100.0500, L500.2500, L500.4100, L3700.3000, L501.9520 ####[facility] [address] [place], [address] GAP 12 Normal 5-15 [facility] Comment on above: Order Comment: 104.2 Performed By: #### L 100.0500, L500.2500, L500.4100, L3700.3000, L501.9520 ####[facility] [address] [place], [address] GFR/1.73 sq M.predicted among non-blacks MDRD (S/P/Bld) [Vol rate/Area] 41 mL/min/{1.73_m2} Low >60 [facility] Comment on above: Order Comment: 104.2 Result Comment: mL/m in/1.73m2 CKD-EPI Creatinine Equation (2020) Performed By: #### L 100.0500, L500.2500, L500.4100, L3700.3000, L501.9520 ####[facility] [address] [place], [address] Glucose [Mass/Vol] 95 mg/dL Normal 70-[address] [facility] Comment on above: Order Comment: 104.2 Performed By: #### L 100.0500, L500.2500, L500.4100, L3700.3000, L501.9520 ####[facility] [address] [place], [address] Potassium [Moles/Vol] 3.9 mmol/L Normal 3.3-5.1 [facility] Comment on above: Order Comment: 104.2 Performed By: #### L 100.0500, L500.2500, L500.4100, L3700.3000, L501.9520 ####[facility] [address] [place], [address] Sodium [Moles/Vol] 139 mmol/L Normal 133-[address] [facility] Comment on above: Order Comment: 104.2 Performed By: #### L 100.0500, L500.2500, L500.4100, L3700.3000, L501.9520 ####[facility] [address] [place], [address] Urea nitrogen [Mass/Vol] 37 mg/dL High 4-19 [facility] Comment on above: Order Comment: 104.2 Performed By: #### L 100.0500, L500.2500, L500.4100, L3700.3000, L501.9520 ####[facility] [address] [place], [address] CBC-Complete Blood Cnt No Di ffon 01-05-2025 Erythrocyte distribution width (RBC) [Ratio] 15.8 % High 11.6-14.6 [facility] Comment on above: Order Comment: 104.2 Performed By: #### L 100.0500, L500.2500, L500.4100, L3700.3000, L501.9520 ####[facility] [address] [place], [address] Hematocrit (Bld) [Volume fraction] 30.9 % Low 37-47 [facility] Comment on above: Order Comment: 104.2 Performed By: #### L 100.0500, L500.2500, L500.4100, L3700.3000, L501.9520 ####[facility] [address] [place], [address] Hemoglobin (Bld) [Mass/Vol] 10.2 g/dL Low 12.0-15.0 [facility] Comment on above: Order Comment: 104.2 Performed By: #### L 100.0500, L500.2500, L500.4100, L3700.3000, L501.9520 ####[facility] [address] [place], [address] MCH (RBC) [Entitic mass] 32.6 pg High 27.0-32.0 [facility] Comment on above: Order Comment: 104.2 Performed By: #### L 100.0500, L500.2500, L500.4100, L3700.3000, L501.9520 ####[facility] [address] [place], [address] MCHC (RBC) [Mass/Vol] 33.0 g/dL Normal 32-36 [facility] Comment on above: Order Comment: 104.2 Performed By: #### L 100.0500, L500.2500, L500.4100, L3700.3000, L501.9520 ####[facility] [address] [place], [address] MCV (RBC) [Entitic vol] 98.7 fL Normal 81-99 [facility] Comment on above: Order Comment: 104.2 Performed By: #### L 100.0500, L500.2500, L500.4100, L3700.3000, L501.9520 ####[facility] [address] [place], [address] Platelet mean volume (Bld) [Entitic vol] 10.9 fL Normal 6.2-12.0 [facility] Comment on above: Order Comment: 104.2 Performed By: #### L 100.0500, L500.2500, L500.4100, L3700.3000, L501.9520 ####[facility] [address] [place], [address] Platelets (Bld) [#/Vol] 164 10*3/uL Normal 150-450 [facility] Comment on above: Order Comment: 104.2 Performed By: #### L 100.0500, L500.2500, L500.4100, L3700.3000, L501.9520 ####[facility] [address] [place], [address] RBC (Bld) [#/Vol] 3.13 10*6/uL Low 4.2-5.4 [facility] Comment on above: Order Comment: 104.2 Performed By: #### L 100.0500, L500.2500, L500.4100, L3700.3000, L501.9520 ####[facility] [address] [place], [address] RDW SD 57.1 fl High 35.1-43.9 [facility] Comment on above: Order Comment: 104.2 Performed By: #### L 100.0500, L500.2500, L500.4100, L3700.3000, L501.9520 ####[facility] [address] [place], [address] WBC (Bld) [#/Vol] 6.9 10*3/uL Normal 4.4-11.[address] [facility] Comment on above: Order Comment: 104.2 Performed By: #### L 100.0500, L500.2500, L500.4100, L3700.3000, L501.9520 ####[facility] [address] [place], [address] Lipid Profileon 01-05-2025 CHOL:HDL 2.07 Normal [facility] Comment on above: Order Comment: 104.2 Performed By: #### L 100.0500, L500.2500, L500.4100, L3700.3000, L501.9520 ####[facility] [address] [place], [address] Cholesterol [Mass/Vol] 217 mg/dL High <=200 [facility] Comment on above: Order Comment: 104.2 Result Comment: Chol esterol level, Desirable <200 mg/dLBorderline high cholesterol 200-239 mg/dLHigh cholesterol >=240 mg/dLRecommendations of the NCEP Adult Treatment Panel for thefollowing risk-cutoff thresholds for the [facility]. Performed By: #### L 100.0500, L500.2500, L500.4100, L3700.3000, L501.9520 ####[facility] [address] [place], [address] Cholesterol in HDL [Mass/Vol] 105 mg/dL Normal [facility] Comment on above: Order Comment: 104.2 Result Comment: Mi onal Cholesterol Education Program (NCEP) guidelines:<40 mg/dL: Low HDL-cholesterol (major risk factor for CHD)>= 60 mg/dL: High HDL-cholesterol (negative risk factor forCHD)HDL-cholesterol is affected by a number of factors, e.g.smoking, exercise, hormones, sex and age. Performed By: #### L 100.0500, L500.2500, L500.4100, L3700.3000, L501.9520 ####[facility] [address] [place], [address] Cholesterol in LDL [Mass/Vol] 101 mg/dL Normal [facility] Comment on above: Order Comment: 104.2 Result Comment: Bord atrhad=793-682 mg/dL Higher Ytzg=532 mg/dL or greaterFriedwald Equation for LDL-C Performed By: #### L 100.0500, L500.2500, L500.4100, L3700.3000, L501.9520 ####[facility] [address] [place], [address] Cholesterol in VLDL [Mass/Vol] 11 mg/dL Normal 5-40 [facility] Comment on above: Order Comment: 104.2 Performed By: #### L 100.0500, L500.2500, L500.4100, L3700.3000, L501.9520 ####[facility] [address] [place], [address] Triglyceride [Mass/Vol] 54 mg/dL Normal [facility] Comment on above: Order Comment: 104.2 Result Comment: The drugs N-Acetylcysteine and Metamizole may falselydepress this assay.Normal range: <150 mg/dLBorderline High: 150-199 mg/dLHigh: 200-499 mg/dLVery High: >500 mg/dL Performed By: #### L 100.0500, L500.2500, L500.4100, L3700.3000, L501.9520 ####[facility] [address] [place], [address] Thyroid Stim Hormone (TSH)on 01-05-2025 TSH 3.110 uIU/mL Normal 0.300-4.200 [facility] Comment on above: Order Comment: 104.2 Performed By: #### L 100.0500, L500.2500, L500.4100, L3700.3000, L501.9520 ####[facility] [address] [place], [address] L3700.3000on 12-29-2024 PHENobarbital [Mass/Vol] 37 ug/mL Normal 15-40 [facility] Comment on above: Order Comment: 104.2 Result Comment: Dete ction Limit = 3Performed at: [address], [place], [place] [id number] Director: Jose Vicente PhD, Phone: [phone] Performed By: #### L 500.4100, L3700.3000, L501.9520, L500.2500, L100.0500 ####[facility] [address] [place], [address] Basic Metabolic Profile (BMP )on 12-28-2024 BUN/CRE 30.1 RATIO High 10-20 [facility] Comment on above: Order Comment: 104.2 Performed By: #### L 500.4100, L3700.3000, L501.9520, L500.2500, L100.0500 ####[facility] [address] [place], [address] Calcium [Mass/Vol] 9.6 mg/dL Normal 7.6-11.[address] [facility] Comment on above: Order Comment: 104.2 Performed By: #### L 500.4100, L3700.3000, L501.9520, L500.2500, L100.0500 ####[facility] [address] [place], [address] Chloride [Moles/Vol] 100 mmol/L Normal 98-108 [facility] Comment on above: Order Comment: 104.2 Performed By: #### L 500.4100, L3700.3000, L501.9520, L500.2500, L100.0500 ####[facility] [address] [place], [address] CO2 [Moles/Vol] 28.2 mmol/L Normal 21.0-32.0 [facility] Comment on above: Order Comment: 104.2 Performed By: #### L 500.4100, L3700.3000, L501.9520, L500.2500, L100.0500 ####[facility] [address] [place], [address] Creatinine [Mass/Vol] 1.15 mg/dL Normal 0.70-1.20 [facility] Comment on above: Order Comment: 104.2 Performed By: #### L 500.4100, L3700.3000, L501.9520, L500.2500, L100.0500 ####[facility] [address] [place], [address] GAP 11 Normal 5-15 [facility] Comment on above: Order Comment: 104.2 Performed By: #### L 500.4100, L3700.3000, L501.9520, L500.2500, L100.0500 ####[facility] [address] [place], [address] GFR/1.73 sq M.predicted among non-blacks MDRD (S/P/Bld) [Vol rate/Area] 50 mL/min/{1.73_m2} Low >60 [facility] Comment on above: Order Comment: 104.2 Result Comment: mL/m in/1.73m2 CKD-EPI Creatinine Equation (2020) Performed By: #### L 500.4100, L3700.3000, L501.9520, L500.2500, L100.0500 ####[facility] [address] [place], [address] Glucose [Mass/Vol] 81 mg/dL Normal 70-[address] [facility] Comment on above: Order Comment: 104.2 Performed By: #### L 500.4100, L3700.3000, L501.9520, L500.2500, L100.0500 ####[facility] [address] [place], [address] Potassium [Moles/Vol] 4.3 mmol/L Normal 3.3-5.1 [facility] Comment on above: Order Comment: 104.2 Performed By: #### L 500.4100, L3700.3000, L501.9520, L500.2500, L100.0500 ####[facility] [address] [place], [address] Sodium [Moles/Vol] 139 mmol/L Normal 133-[address] [facility] Comment on above: Order Comment: 104.2 Performed By: #### L 500.4100, L3700.3000, L501.9520, L500.2500, L100.0500 ####[facility] [address] [place], [address] Urea nitrogen [Mass/Vol] 35 mg/dL High 4-19 [facility] Comment on above: Order Comment: 104.2 Performed By: #### L 500.4100, L3700.3000, L501.9520, L500.2500, L100.0500 ####[facility] [address] [place], [address] CBC-Complete Blood [facility]nt [facility] Erythrocyte distribution width (RBC) [Ratio] 16.1 % High 11.6-14.6 [facility] Comment on above: Order Comment: 104.2 Performed By: #### L 500.4100, L3700.3000, L501.9520, L500.2500, L100.0500 ####[facility] [address] [place], [address] Hematocrit (Bld) [Volume fraction] 30.0 % Low 37-47 [facility] Comment on above: Order Comment: 104.2 Performed By: #### L 500.4100, L3700.3000, L501.9520, L500.2500, L100.0500 ####[facility] [address] [place], [address] Hemoglobin (Bld) [Mass/Vol] 9.9 g/dL Low 12.0-15.0 [facility] Comment on above: Order Comment: 104.2 Performed By: #### L 500.4100, L3700.3000, L501.9520, L500.2500, L100.0500 ####[facility] [address] [place], [address] MCH (RBC) [Entitic mass] 33.2 pg High 27.0-32.0 [facility] Comment on above: Order Comment: 104.2 Performed By: #### L 500.4100, L3700.3000, L501.9520, L500.2500, L100.0500 ####[facility] [address] [place], [address] MCHC (RBC) [Mass/Vol] 33.0 g/dL Normal 32-36 [facility] Comment on above: Order Comment: 104.2 Performed By: #### L 500.4100, L3700.3000, L501.9520, L500.2500, L100.0500 ####[facility] [address] [place], [address] MCV (RBC) [Entitic vol] 100.7 fL High 81-99 [facility] Comment on above: Order Comment: 104.2 Performed By: #### L 500.4100, L3700.3000, L501.9520, L500.2500, L100.0500 ####[facility] [address] [place], [address] Platelet mean volume (Bld) [Entitic vol] 11.0 fL Normal 6.2-12.0 [facility] Comment on above: Order Comment: 104.2 Performed By: #### L 500.4100, L3700.3000, L501.9520, L500.2500, L100.0500 ####[facility] [address] [place], [address] Platelets (Bld) [#/Vol] 141 10*3/uL Low 150-450 [facility] Comment on above: Order Comment: 104.2 Performed By: #### L 500.4100, L3700.3000, L501.9520, L500.2500, L100.0500 ####[facility] [address] [place], [address] RBC (Bld) [#/Vol] 2.98 10*6/uL Low 4.2-5.4 [facility] Comment on above: Order Comment: 104.2 Performed By: #### L 500.4100, L3700.3000, L501.9520, L500.2500, L100.0500 ####[facility] [address] [place], [address] RDW SD 60.0 fl High 35.1-43.9 [facility] Comment on above: Order Comment: 104.2 Performed By: #### L 500.4100, L3700.3000, L501.9520, L500.2500, L100.0500 ####[facility] [address] [place], [address] WBC (Bld) [#/Vol] 4.6 10*3/uL Normal 4.4-11.[address] [facility] Comment on above: Order Comment: 104.2 Performed By: #### L 500.4100, L3700.3000, L501.9520, L500.2500, L100.0500 ####[facility] [address] [place], [address] Lipid Profileon 12-28-2024 CHOL:HDL 2.10 Normal [facility] Comment on above: Order Comment: 104.2 Performed By: #### L 500.4100, L3700.3000, L501.9520, L500.2500, L100.0500 ####[facility] [address] [place], [address] Cholesterol [Mass/Vol] 212 mg/dL High <=200 [facility] Comment on above: Order Comment: 104.2 Result Comment: Chol esterol level, Desirable <200 mg/dLBorderline high cholesterol 200-239 mg/dLHigh cholesterol >=240 mg/dLRecommendations of the NCEP Adult Treatment Panel for thefollowing risk-cutoff thresholds for the [place] Americanpulation. Performed By: #### L 500.4100, L3700.3000, L501.9520, L500.2500, L100.0500 ####[facility] [address] [place], [address] Cholesterol in HDL [Mass/Vol] 101 mg/dL Normal [facility] Comment on above: Order Comment: 104.2 Result Comment: Mi onal Cholesterol Education Program (NCEP) guidelines:<40 mg/dL: Low HDL-cholesterol (major risk factor for CHD)>= 60 mg/dL: High HDL-cholesterol (negative risk factor forCHD)HDL-cholesterol is affected by a number of factors, e.g.smoking, exercise, hormones, sex and age. Performed By: #### L 500.4100, L3700.3000, L501.9520, L500.2500, L100.0500 ####[facility] [address] [place], [address] Cholesterol in LDL [Mass/Vol] 97 mg/dL Normal [facility] Comment on above: Order Comment: 104.2 Result Comment: Bord weeqqv=136-901 mg/dL Higher Qmkg=363 mg/dL or greater Performed By: #### L 500.4100, L3700.3000, L501.9520, L500.2500, L100.0500 ####[facility] [address] [place], [address] Cholesterol in VLDL [Mass/Vol] 14 mg/dL Normal 5-40 [facility] Comment on above: Order Comment: 104.2 Performed By: #### L 500.4100, L3700.3000, L501.9520, L500.2500, L100.0500 ####[facility] [address] [place], [address] Triglyceride [Mass/Vol] 70 mg/dL Normal [facility] Comment on above: Order Comment: 104.2 Result Comment: The drugs N-Acetylcysteine and Metamizole may falselydepress this assay.Normal range: <150 mg/dLBorderline High: 150-199 mg/dLHigh: 200-499 mg/dLVery High: >500 mg/dL Performed By: #### L 500.4100, L3700.3000, L501.9520, L500.2500, L100.0500 ####[facility] [address] [place], [place], [id number] Thyroid Stim Hormone (TSH)on 12-28-2024 TSH 3.650 uIU/mL Normal 0.300-4.200 [facility] Comment on above: Order Comment: 104.2 Performed By: #### L 500.4100, L3700.3000, L501.9520, L500.2500, L100.0500 ####[facility] [address] [place], [place], [id number] Pulmonary Visit Reporton Pulmonary Visit Report Normal [facility] L3700.3000on 12-09-2024 PHENobarbital [Mass/Vol] 46 ug/mL Abnormal 15-40 [facility] Comment on above: Order Comment: 104.2 Result Comment: Dete ction Limit = 3Patient drug level exceeds published reference range.Evaluate clinically for signs of potential toxicity.Performed at: [address] [id number] Director: Jose Vicente PhD, Phone: [phone] Performed By: #### L 500.2500, L3700.3000, L501.9520, L100.0500, L500.4100 ####[facility] [address] [place], [place], [id number] Anion gap in Serum or Plasma Ordered By: Panda Littlejohn on 12-08-2024 Anion gap [Moles/Vol] 12 mmol/L 5-15 [facility] BUN/creatinine ratioOrdered By: Panda Littlejohn on 12-08-2024 Urea nitrogen/Creatinine [Mass ratio] 33.3 mg/mg High 10-20 [facility] Basic Metabolic Profile (BMP )on 12-08-2024 BUN/CRE 33.3 RATIO High [facility]20 [facility] Comment on above: Order Comment: 104.2 Performed By: #### L 500.2500, L3700.3000, L501.9520, L100.0500, L500.4100 ####[facility] [address] [place], [address] Calcium [Mass/Vol] 9.2 mg/dL Normal 7.6-11.[address] [facility] Comment on above: Order Comment: 104.2 Performed By: #### L 500.2500, L3700.3000, L501.9520, L100.0500, L500.4100 ####[facility] [address] [place], [address] Chloride [Moles/Vol] 100 mmol/L Normal 98-108 [facility] Comment on above: Order Comment: 104.2 Performed By: #### L 500.2500, L3700.3000, L501.9520, L100.0500, L500.4100 ####[facility] [address] [place], [address] CO2 [Moles/Vol] 28.6 mmol/L Normal 21.0-32.0 [facility] Comment on above: Order Comment: 104.2 Performed By: #### L 500.2500, L3700.3000, L501.9520, L100.0500, L500.4100 ####[facility] [address] [place], [address] Creatinine [Mass/Vol] 1.28 mg/dL High 0.70-1.20 [facility] Comment on above: Order Comment: 104.2 Performed By: #### L 500.2500, L3700.3000, L501.9520, L100.0500, L500.4100 ####[facility] [address] [place], [address] GAP 12 Normal 5-15 [facility] Comment on above: Order Comment: 104.2 Performed By: #### L 500.2500, L3700.3000, L501.9520, L100.0500, L500.4100 ####[facility] [address] [place], [address] GFR/1.73 sq M.predicted among non-blacks MDRD (S/P/Bld) [Vol rate/Area] 44 mL/min/{1.73_m2} Low >60 [facility] Comment on above: Order Comment: 104.2 Result Comment: mL/m in/1.73m2 CKD-EPI Creatinine Equation (2020) Performed By: #### L 500.2500, L3700.3000, L501.9520, L100.0500, L500.4100 ####[facility] [address] [place], [address] Glucose [Mass/Vol] 81 mg/dL Normal 70-[address] [facility] Comment on above: Order Comment: 104.2 Performed By: #### L 500.2500, L3700.3000, L501.9520, L100.0500, L500.4100 ####[facility] [address] [place], [address] Potassium [Moles/Vol] 3.8 mmol/L Normal 3.3-5.1 [facility] Comment on above: Order Comment: 104.2 Performed By: #### L 500.2500, L3700.3000, L501.9520, L100.0500, L500.4100 ####[facility] [address] [place], [address] Sodium [Moles/Vol] 140 mmol/L Normal 133-[address] [facility] Comment on above: Order Comment: 104.2 Performed By: #### L 500.2500, L3700.3000, L501.9520, L100.0500, L500.4100 ####[facility] [address] [place], [address] Urea nitrogen [Mass/Vol] 43 mg/dL High 4-19 [facility] Comment on above: Order Comment: 104.2 Performed By: #### L 500.2500, L3700.3000, L501.9520, L100.0500, L500.4100 ####[facility] [address] [place], [address] CBC-Complete Blood Cnt No Di ffon 12-08-2024 Erythrocyte distribution width (RBC) [Ratio] 16.9 % High 11.6-14.6 [facility] Comment on above: Order Comment: 104.2 Performed By: #### L 500.2500, L3700.3000, L501.9520, L100.0500, L500.4100 ####[facility] [address] [place], [address] Hematocrit (Bld) [Volume fraction] 30.4 % Low 37-47 [facility] Comment on above: Order Comment: 104.2 Performed By: #### L 500.2500, L3700.3000, L501.9520, L100.0500, L500.4100 ####[facility] [address] [place], [address] Hemoglobin (Bld) [Mass/Vol] 9.9 g/dL Low 12.0-15.0 [facility] Comment on above: Order Comment: 104.2 Performed By: #### L 500.2500, L3700.3000, L501.9520, L100.0500, L500.4100 ####[facility] [address] [place], [address] MCH (RBC) [Entitic mass] 32.9 pg High 27.0-32.0 [facility] Comment on above: Order Comment: 104.2 Performed By: #### L 500.2500, L3700.3000, L501.9520, L100.0500, L500.4100 ####[facility] [address] [place], [address] MCHC (RBC) [Mass/Vol] 32.6 g/dL Normal 32-36 [facility] Comment on above: Order Comment: 104.2 Performed By: #### L 500.2500, L3700.3000, L501.9520, L100.0500, L500.4100 ####[facility] [address] [place], [address] MCV (RBC) [Entitic vol] 101.0 fL High 81-99 [facility] Comment on above: Order Comment: 104.2 Performed By: #### L 500.2500, L3700.3000, L501.9520, L100.0500, L500.4100 ####[facility] [address] [place], [address] Platelet mean volume (Bld) [Entitic vol] 10.7 fL Normal 6.2-12.0 [facility] Comment on above: Order Comment: 104.2 Performed By: #### L 500.2500, L3700.3000, L501.9520, L100.0500, L500.4100 ####[facility] [address] [place], [address] Platelets (Bld) [#/Vol] 206 10*3/uL Normal 150-450 [facility] Comment on above: Order Comment: 104.2 Performed By: #### L 500.2500, L3700.3000, L501.9520, L100.0500, L500.4100 ####[facility] [address] [place], [address] RBC (Bld) [#/Vol] 3.01 10*6/uL Low 4.2-5.4 [facility] Comment on above: Order Comment: 104.2 Performed By: #### L 500.2500, L3700.3000, L501.9520, L100.0500, L500.4100 ####[facility] [address] [place], [address] RDW SD 62.8 fl High 35.1-43.9 [facility] Comment on above: Order Comment: 104.2 Performed By: #### L 500.2500, L3700.3000, L501.9520, L100.0500, L500.4100 ####[facility] [address] [place], [address] WBC (Bld) [#/Vol] 4.2 10*3/uL Low 4.4-11.[address] [facility] Comment on above: Order Comment: 104.2 Performed By: #### L 500.2500, L3700.3000, L501.9520, L100.0500, L500.4100 ####[facility] [address] [facility], [address] Calculated very low density lipoprotein (VLDL) cholesterol measurementOrdered By: Panda Littlejohn on 12-08-2024 Calculated very low density lipoprotein (VLDL) cholesterol measurement 15 mg/dL 5-40 [facility] Carbon dioxide, total [Moles /volume] in Central venous bloodOrdered By: Panda Littlejohn on 12-08-2024 CO2 [Moles/Vol] 28.6 mmol/L 21.0-32.0 [facility] Chloride assayOrdered By: Stormy Littlejohn on 12-08-2024 Chloride [Moles/Vol] 100 mmol/L 98-108 [facility] Erythrocyte distribution wid th ratioOrdered By: Panda Littlejohn on 12-08-2024 Erythrocyte distribution width (RBC) [Ratio] 16.9 % High 11.6-14.6 [facility] Erythrocyte distribution wid th standard deviationOrdered By: Panda Littlejohn on 12-08-2024 Erythrocyte distribution width (RBC) [Ratio] 62.8 fl High 35.1-43.9 [facility] Glomerular filtration rate ( GFR) estimation/1.73 sq m using serum, plasma, or whole bOrdered By: Panda Littlejohn on 12-08-2024 GFR/1.73 sq M.predicted among non-blacks MDRD (S/P/Bld) [Vol rate/Area] 44 mL/min/{1.73_m2} Low >60 [facility] Comment on above: mL/min/1.73m2 CKD-EP I Creatinine Equation (2020) Hematocrit Auto (Bld) [Volum e fraction]Ordered By: Panda Littlejohn on 12-08-2024 Hematocrit (Bld) [Volume fraction] 30.4 % Low 37-47 [facility] Hemoglobin measurementOrdere d By: Panda Littlejohn on 12-08-2024 Hemoglobin (Bld) [Mass/Vol] 9.9 g/dL Low 12.0-15.0 [facility] LDL calc ser/plasOrdered By: Panda Littlejohn on 12-08-2024 Cholesterol in LDL [Mass/Vol] 99 mg/dL [facility] Comment on above: Eapckboelh=138-039 m g/dL & Higher Arbp=730 mg/dL or greater Lipid Profileon 12-08-2024 CHOL:HDL 2.19 Normal [facility] Comment on above: Order Comment: 104.2 Performed By: #### L 500.2500, L3700.3000, L501.9520, L100.0500, L500.4100 ####[facility] [address] [place], [address] Cholesterol [Mass/Vol] 210 mg/dL High <=200 [facility] Comment on above: Order Comment: 104.2 Result Comment: Chol esterol level, Desirable <200 mg/dLBorderline high cholesterol 200-239 mg/dLHigh cholesterol >=240 mg/dLRecommendations of the NCEP Adult Treatment Panel for thefollowing risk-cutoff thresholds for the [place] Americanpopulation. Performed By: #### L 500.2500, L3700.3000, L501.9520, L100.0500, L500.4100 ####[facility] [address] [place], [address] Cholesterol in HDL [Mass/Vol] 96 mg/dL Normal [facility] Comment on above: Order Comment: 104.2 Result Comment: Mi onal Cholesterol Education Program (NCEP) guidelines:<40 mg/dL: Low HDL-cholesterol (major risk factor for CHD)>= 60 mg/dL: High HDL-cholesterol (negative risk factor forCHD)HDL-cholesterol is affected by a number of factors, e.g.smoking, exercise, hormones, sex and age. Performed By: #### L 500.2500, L3700.3000, L501.9520, L100.0500, L500.4100 ####[facility] [address] [place], [address] Cholesterol in LDL [Mass/Vol] 99 mg/dL Normal [facility] Comment on above: Order Comment: 104.2 Result Comment: Bord jvsayl=024-023 mg/dL Higher Tmyj=926 mg/dL or greater Performed By: #### L 500.2500, L3700.3000, L501.9520, L100.0500, L500.4100 ####[facility] [address] [place], [address] Cholesterol in VLDL [Mass/Vol] 15 mg/dL Normal 5-40 [facility] Comment on above: Order Comment: 104.2 Performed By: #### L 500.2500, L3700.3000, L501.9520, L100.0500, L500.4100 ####[facility] [address] [place], [address] Triglyceride [Mass/Vol] 77 mg/dL Normal [facility] Comment on above: Order Comment: 104.2 Result Comment: The drugs N-Acetylcysteine and Metamizole may falselydepress this assay.Normal range: <150 mg/dLBorderline High: 150-199 mg/dLHigh: 200-499 mg/dLVery High: >500 mg/dL Performed By: #### L 500.2500, L3700.3000, L501.9520, L100.0500, L500.4100 ####[facility] [address] [place], [address] MCV (mean corpuscular volume ) determinationOrdered By: Panda Littlejohn on 12-08-2024 MCV (RBC) [Entitic vol] 101.0 fL High 81-99 [facility] Mean corpuscular hemoglobin (MCH) determinationOrdered By: Panda Littlejohn on 12-08-2024 MCH (RBC) [Entitic mass] 32.9 pg High 27.0-32.0 [facility] Mean corpuscular hemoglobin concentration (MCHC) determinationOrdered By: Panda Littlejohn on 12-08-2024 MCHC (RBC) [Mass/Vol] 32.6 g/dL 32-36 [facility] Mean platelet volume determi nationOrdered By: Panda Littlejohn on 12-08-2024 Platelet mean volume (Bld) [Entitic vol] 10.7 fL 6.2-12.0 [facility] Platelet countOrdered By: Stormy Littlejohn on 12-08-2024 Platelets (Bld) [#/Vol] 206 10*3/uL 150-450 [facility] Potassium measurement (mass/ volume)Ordered By: Panda Littlejohn on 12-08-2024 Potassium (Unsp spec) [Mass/Vol] 3.8 mmol/L 3.3-5.1 [facility] RBC Auto (Bld) [#/Vol]Ordere d By: Panda Littlejohn on 12-08-2024 RBC (Bld) [#/Vol] 3.01 10*6/uL Low 4.2-5.4 [facility] Screening total cholesterol/ high density lipoprotein (HDL) cholesterol ratioOrdered By: Panda Littlejohn on 12-08-2024 Cholesterol.total/Brittany sterol in HDL [Mass ratio] 2.19 {ratio} [facility] Serum creatinine measurement (mass/volume)Ordered By: Panda Littlejohn on 12-08-2024 Creatinine [Mass/Vol] 1.28 mg/dL High 0.70-1.20 [facility] Serum glucose measurement (m ass/volume)Ordered By: Panda Littlejohn on 12-08-2024 Glucose [Mass/Vol] 81 mg/dL 70-[address] [facility] Serum or plasma calcium jerod urement (mass/volume)Ordered By: Panda Littlejohn on 12-08-2024 Calcium [Mass/Vol] 9.2 mg/dL 7.6-11.[address] [facility] Serum or plasma cholesterol in HDL measurement (mass/volume)Ordered By: Panda Littlejohn on 12-08-2024 Cholesterol in HDL [Mass/Vol] 96 mg/dL >40 [facility] Comment on above: National Cholesterol Education Program (NCEP) guidelines:<40 mg/dL: Low HDL-cholesterol (major risk factor for CHD)>= 60 mg/dL: High HDL-cholesterol (negative risk factor for CHD)HDL-cholesterol is affected by a number of factors, e.g. smoking, exercise, hormones, sex and age. Serum or plasma cholesterol measurement (mass/volume)Ordered By: Panda Littlejohn on 12-08-2024 Cholesterol [Mass/Vol] 210 mg/dL High <201 [facility] Comment on above: Cholesterol level, D esirable <200 mg/dLBorderline high cholesterol 200-239 mg/dLHigh cholesterol >=240 mg/dLRecommendations of the NCEP Adult Treatment Panel for the following risk-cutoff thresholds for the [place] population. Serum or plasma urea nitroge n measurement (mass/volume)Ordered By: Panda Littlejohn on 12-08-2024 Urea nitrogen [Mass/Vol] 43 mg/dL High 4-19 [facility] Sodium levelOrdered By: Panda Littlejohn on 12-08-2024 Sodium [Moles/Vol] 140 mmol/L 133-[address] [facility] TSH DL <= 0.005 mIU/L QnOrde red By: Panda Littlejohn on 12-08-2024 TSH Qn 3.090 uIU/mL 0.300-4.200 [facility] Thyroid Stim Hormone (TSH)on 12-08-2024 TSH 3.090 uIU/mL Normal 0.300-4.200 [facility] Comment on above: Order Comment: 104.2 Performed By: #### L 500.2500, L3700.3000, L501.9520, L100.0500, L500.4100 ####[facility] [address] [place], [address] Triglycerides measurementOrd ered By: Panda Littlejohn on 12-08-2024 Triglyceride [Mass/Vol] 77 mg/dL <199 [facility] Comment on above: The drugs N-Acetylcy steine and Metamizole may falsely depress this assay. Normal range: <150 mg/dLBorderline High: 150-199 mg/dLHigh: 200-499 mg/dLVery High: >500 mg/dL White blood cell (WBC) count Ordered By: Panda Littlejohn on 12-08-2024 WBC (Bld) [#/Vol] 4.2 10*3/uL Low 4.4-11.[address] [facility] Anion gap in Serum or Plasma Ordered By: Panda Littlejohn on 10-21-2024 Anion gap [Moles/Vol] 14 mmol/L 10-22 [facility] BUN/creatinine ratioOrdered By: Panda Littlejohn on 10-21-2024 Urea nitrogen/Creatinine [Mass ratio] 28.1 mg/mg High 03-29 [facility] Basic Metabolic Profile (BMP )on 10-21-2024 BUN/CRE 28.1 RATIO High 03-29 [facility] Comment on above: Order Comment: 104.2 Performed By: #### L 500.2500, L506.1001, L501.9520, L500.3400, L500.4100, L100.0500, L501.7510 ####[facility] [address] [place], [address] Calcium [Mass/Vol] 9.2 mg/dL Normal 7.6-11.[address] [facility] Comment on above: Order Comment: 104.2 Performed By: #### L 500.2500, L506.1001, L501.9520, L500.3400, L500.4100, L100.0500, L501.7510 ####[facility] [address] [place], [address] Chloride [Moles/Vol] 97 mmol/L Low 98-108 [facility] Comment on above: Order Comment: 104.2 Performed By: #### L 500.2500, L506.1001, L501.9520, L500.3400, L500.4100, L100.0500, L501.7510 ####[facility] [address] [place], [address] CO2 [Moles/Vol] 26.8 mmol/L Normal 21.0-32.0 [facility] Comment on above: Order Comment: 104.2 Performed By: #### L 500.2500, L506.1001, L501.9520, L500.3400, L500.4100, L100.0500, L501.7510 ####[facility] [address] [place], [address] Creatinine [Mass/Vol] 1.00 mg/dL Normal 0.70-1.20 [facility] Comment on above: Order Comment: 104.2 Performed By: #### L 500.2500, L506.1001, L501.9520, L500.3400, L500.4100, L100.0500, L501.7510 ####[facility] [address] [place], [address] GAP 14 Normal 5-15 [facility] Comment on above: Order Comment: 104.2 Performed By: #### L 500.2500, L506.1001, L501.9520, L500.3400, L500.4100, L100.0500, L501.7510 ####[facility] [address] [place], [place], [phone] GFR/1.73 sq M.predicted among non-blacks MDRD (S/P/Bld) [Vol rate/Area] 59 mL/min/{1.73_m2} Low >60 [facility] Comment on above: Order Comment: 104.2 Result Comment: mL/m in/1.73m2 CKD-EPI Creatinine Equation (2020) Performed By: #### L 500.2500, L506.1001, L501.9520, L500.3400, L500.4100, L100.0500, L501.7510 ####[facility] [address] [place], [address] Glucose [Mass/Vol] 113 mg/dL High 70-[address] [facility] Comment on above: Order Comment: 104.2 Performed By: #### L 500.2500, L506.1001, L501.9520, L500.3400, L500.4100, L100.0500, L501.7510 ####[facility] [address] [place], [address] Potassium [Moles/Vol] 3.8 mmol/L Normal 3.3-5.1 [facility] Comment on above: Order Comment: 104.2 Performed By: #### L 500.2500, L506.1001, L501.9520, L500.3400, L500.4100, L100.0500, L501.7510 ####[facility] [address] [place], [address] Sodium [Moles/Vol] 138 mmol/L Normal 133-[address] [facility] Comment on above: Order Comment: 104.2 Performed By: #### L 500.2500, L506.1001, L501.9520, L500.3400, L500.4100, L100.0500, L501.7510 ####[facility] [address] [place], [address] Urea nitrogen [Mass/Vol] 28 mg/dL High 4-19 [facility] Comment on above: Order Comment: 104.2 Performed By: #### L 500.2500, L506.1001, L501.9520, L500.3400, L500.4100, L100.0500, L501.7510 ####[facility] [address] [place], [address] Bilirubin directOrdered By: Panda Littlejohn on 10-21-2024 Bilirubin.direct [Mass/Vol] mg/dL 0.00-0.30 [facility] Bilirubin, totalOrdered By: Panda Littlejohn on 10-21-2024 Bilirubin [Mass/Vol] mg/dL 0.00-1.30 [facility] CBC-Complete Blood Cnt No Di ffon 10-21-2024 Erythrocyte distribution width (RBC) [Ratio] 17.9 % High 11.6-14.6 [facility] Comment on above: Order Comment: 104.2 Performed By: #### L 500.2500, L506.1001, L501.9520, L500.3400, L500.4100, L100.0500, L501.7510 ####[facility] [address] [place], [address] Hematocrit (Bld) [Volume fraction] 32.8 % Low 37-47 [facility] Comment on above: Order Comment: 104.2 Performed By: #### L 500.2500, L506.1001, L501.9520, L500.3400, L500.4100, L100.0500, L501.7510 ####[facility] [address] [place], [address] Hemoglobin (Bld) [Mass/Vol] 10.7 g/dL Low 12.0-15.0 [facility] Comment on above: Order Comment: 104.2 Performed By: #### L 500.2500, L506.1001, L501.9520, L500.3400, L500.4100, L100.0500, L501.7510 ####[facility] [address] [place], [address] MCH (RBC) [Entitic mass] 32.5 pg High 27.0-32.0 [facility] Comment on above: Order Comment: 104.2 Performed By: #### L 500.2500, L506.1001, L501.9520, L500.3400, L500.4100, L100.0500, L501.7510 ####[facility] [address] [place], [address] MCHC (RBC) [Mass/Vol] 32.6 g/dL Normal 32-36 [facility] Comment on above: Order Comment: 104.2 Performed By: #### L 500.2500, L506.1001, L501.9520, L500.3400, L500.4100, L100.0500, L501.7510 ####[facility] [address] [place], [address] MCV (RBC) [Entitic vol] 99.7 fL High 81-99 [facility] Comment on above: Order Comment: 104.2 Performed By: #### L 500.2500, L506.1001, L501.9520, L500.3400, L500.4100, L100.0500, L501.7510 ####[facility] [address] [place], [address] Platelet mean volume (Bld) [Entitic vol] 9.7 fL Normal 6.2-12.0 [facility] Comment on above: Order Comment: 104.2 Performed By: #### L 500.2500, L506.1001, L501.9520, L500.3400, L500.4100, L100.0500, L501.7510 ####[facility] [address] [place], [address] Platelets (Bld) [#/Vol] 248 10*3/uL Normal 150-450 [facility] Comment on above: Order Comment: 104.2 Performed By: #### L 500.2500, L506.1001, L501.9520, L500.3400, L500.4100, L100.0500, L501.7510 ####[facility] [address] [place], [address] RBC (Bld) [#/Vol] 3.29 10*6/uL Low 4.2-5.4 [facility] Comment on above: Order Comment: 104.2 Performed By: #### L 500.2500, L506.1001, L501.9520, L500.3400, L500.4100, L100.0500, L501.7510 ####[facility] [address] [place], [place], [id number] RDW SD 65.7 fl High 35.1-43.9 [facility] Comment on above: Order Comment: 104.2 Performed By: #### L 500.2500, L506.1001, L501.9520, L500.3400, L500.4100, L100.0500, L501.7510 ####[facility] [address] [place], [place], [id number] WBC (Bld) [#/Vol] 5.9 10*3/uL Normal 4.4-11.[address] [facility] Comment on above: Order Comment: 104.2 Performed By: #### L 500.2500, L506.1001, L501.9520, L500.3400, L500.4100, L100.0500, L501.7510 ####[facility] [address] [place], [place], [id number] Calculated very low density lipoprotein (VLDL) cholesterol measurementOrdered By: Panda Littlejohn on 10-21-2024 Calculated very low density lipoprotein (VLDL) cholesterol measurement 31 mg/dL 5-40 [facility] Carbon dioxide, total [Moles /volume] in Central venous bloodOrdered By: Panda Littlejohn on 10-21-2024 CO2 [Moles/Vol] 26.8 mmol/L 21.0-32.0 [facility] Chloride assayOrdered By: Stormy Littlejohn on 10-21-2024 Chloride [Moles/Vol] 97 mmol/L Low 98-108 [facility] Digoxin Levelon 10-21-2024 DIG 0.46 ng/mL Normal 0.00-2.00 [facility] Comment on above: Order Comment: 104.2 Performed By: #### L 500.2500, L506.1001, L501.9520, L500.3400, L500.4100, L100.0500, L501.7510 ####[facility] [address] [place], [address] Erythrocyte distribution wid th ratioOrdered By: Panda Littlejohn on 10-21-2024 Erythrocyte distribution width (RBC) [Ratio] 17.9 % High 11.6-14.6 [facility] Erythrocyte distribution wid th standard deviationOrdered By: Panda Littlejohn on 10-21-2024 Erythrocyte distribution width (RBC) [Ratio] 65.7 fl High 35.1-43.9 [facility] Glomerular filtration rate ( GFR) estimation/1.73 sq m using serum, plasma, or whole bOrdered By: Panda Littlejohn on 10-21-2024 GFR/1.73 sq M.predicted among non-blacks MDRD (S/P/Bld) [Vol rate/Area] 59 mL/min/{1.73_m2} Low >60 [facility] Comment on above: mL/min/1.73m2 CKD-EP I Creatinine Equation (2020) Hematocrit Auto (Bld) [Volum e fraction]Ordered By: Panda Littlejohn on 10-21-2024 Hematocrit (Bld) [Volume fraction] 32.8 % Low 37-47 [facility] Hemoglobin measurementOrdere d By: Panda Littlejohn on 10-21-2024 Hemoglobin (Bld) [Mass/Vol] 10.7 g/dL Low 12.0-15.0 [facility] LDL calc ser/plasOrdered By: Panda Littlejohn on 10-21-2024 Cholesterol in LDL [Mass/Vol] 114 mg/dL [facility] Comment on above: Tbqyvvsjqd=703-685 m g/dL & Higher Itwy=148 mg/dL or greater Laboratory - Chemistry and C hemistry - challengeOrdered By: Panda Littlejohn on 10-21-2024 AST [Catalytic activity/Vol] 22 U/L <32 [facility] Lipid Profileon 10-21-2024 CHOL:HDL 2.76 Normal [facility] Comment on above: Order Comment: 104.2 Performed By: #### L 500.2500, L506.1001, L501.9520, L500.3400, L500.4100, L100.0500, L501.7510 ####[facility] [address] [place], [address] Cholesterol [Mass/Vol] 228 mg/dL High <=200 [facility] Comment on above: Order Comment: 104.2 Result Comment: Chol esterol level, Desirable <200 mg/dLBorderline high cholesterol 200-239 mg/dLHigh cholesterol >=240 mg/dLRecommendations of the NCEP Adult Treatment Panel for thefollowing risk-cutoff thresholds for the [place] Americans[place] healthcare corporationulation. Performed By: #### L 500.2500, L506.1001, L501.9520, L500.3400, L500.4100, L100.0500, L501.7510 ####[facility] [address] [place], [address] Cholesterol in HDL [Mass/Vol] 83 mg/dL Normal [facility] Comment on above: Order Comment: 104.2 Result Comment: Mi onal Cholesterol Education Program (NCEP) guidelines:<40 mg/dL: Low HDL-cholesterol (major risk factor for CHD)>= 60 mg/dL: High HDL-cholesterol (negative risk factor forCHD)HDL-cholesterol is affected by a number of factors, e.g.smoking, exercise, hormones, sex and age. Performed By: #### L 500.2500, L506.1001, L501.9520, L500.3400, L500.4100, L100.0500, L501.7510 ####[facility] [address] [place], [address] Cholesterol in LDL [Mass/Vol] 114 mg/dL Normal [facility] Comment on above: Order Comment: 104.2 Result Comment: Bord suiard=607-410 mg/dL Higher Zcil=474 mg/dL or greater Performed By: #### L 500.2500, L506.1001, L501.9520, L500.3400, L500.4100, L100.0500, L501.7510 ####[facility] [address] [place], [address] Cholesterol in VLDL [Mass/Vol] 31 mg/dL Normal 5-40 [facility] Comment on above: Order Comment: 104.2 Performed By: #### L 500.2500, L506.1001, L501.9520, L500.3400, L500.4100, L100.0500, L501.7510 ####[facility] [address] [place], [address] Triglyceride [Mass/Vol] 155 mg/dL Normal [facility] Comment on above: Order Comment: 104.2 Result Comment: The drugs N-Acetylcysteine and Metamizole may falselydepress this assay.Normal range: <150 mg/dLBorderline High: 150-199 mg/dLHigh: 200-499 mg/dLVery High: >500 mg/dL Performed By: #### L 500.2500, L506.1001, L501.9520, L500.3400, L500.4100, L100.0500, L501.7510 ####[facility] [address] [place], [address] Liver Profileon 10-21-2024 Albumin [Mass/Vol] 3.9 g/dL Normal 3.4-4.[address] [facility] Comment on above: Order Comment: 104.2 Performed By: #### L 500.2500, L506.1001, L501.9520, L500.3400, L500.4100, L100.0500, L501.7510 ####[facility] [address] [place], [address] ALK PHOS 134 U/L High 35-104 [facility] Comment on above: Order Comment: 104.2 Performed By: #### L 500.2500, L506.1001, L501.9520, L500.3400, L500.4100, L100.0500, L501.7510 ####[facility] [address] [place], [address] ALT [Catalytic activity/Vol] 10 U/L Normal <=34 [facility] Comment on above: Order Comment: 104.2 Performed By: #### L 500.2500, L506.1001, L501.9520, L500.3400, L500.4100, L100.0500, L501.7510 ####[facility] [address] [place], [address] AST [Catalytic activity/Vol] 22 U/L Normal <=31 [facility] Comment on above: Order Comment: 104.2 Performed By: #### L 500.2500, L506.1001, L501.9520, L500.3400, L500.4100, L100.0500, L501.7510 ####[facility] [address] [place], [address] D BILI < 0.08 Normal 0.00-0.30 [facility] Comment on above: Order Comment: 104.2 Performed By: #### L 500.2500, L506.1001, L501.9520, L500.3400, L500.4100, L100.0500, L501.7510 ####[facility] [address] [place], [address] Globulin (S) [Mass/Vol] 3.7 g/dL Normal 2.2-4.2 [facility] Comment on above: Order Comment: 104.2 Performed By: #### L 500.2500, L506.1001, L501.9520, L500.3400, L500.4100, L100.0500, L501.7510 ####[facility] [address] [place], [address] T BILI < 0.15 Normal 0.00-1.30 [facility] Comment on above: Order Comment: 104.2 Performed By: #### L 500.2500, L506.1001, L501.9520, L500.3400, L500.4100, L100.0500, L501.7510 ####[facility] [address] [place], [address] T PROT 7.5 g/dL Normal 5.9-8.4 [facility] Comment on above: Order Comment: 104.2 Performed By: #### L 500.2500, L506.1001, L501.9520, L500.3400, L500.4100, L100.0500, L501.7510 ####[facility] [address] [place], [address] MCV (mean corpuscular volume ) determinationOrdered By: Panda Littlejohn on 10-21-2024 MCV (RBC) [Entitic vol] 99.7 fL High 81-99 [facility] Mean corpuscular hemoglobin (MCH) determinationOrdered By: Panda Littlejohn on 10-21-2024 MCH (RBC) [Entitic mass] 32.5 pg High 27.0-32.0 [facility] Mean corpuscular hemoglobin concentration (MCHC) determinationOrdered By: Panda Littlejohn on 10-21-2024 MCHC (RBC) [Mass/Vol] 32.6 g/dL 32-36 [facility] Mean platelet volume determi nationOrdered By: Panda Littlejohn on 10-21-2024 Platelet mean volume (Bld) [Entitic vol] 9.7 fL 6.2-12.0 [facility] Platelet countOrdered By: Stormy Littlejohn on 10-21-2024 Platelets (Bld) [#/Vol] 248 10*3/uL 150-450 [facility] Potassium measurement (mass/ volume)Ordered By: Panda Littlejohn on 10-21-2024 Potassium (Unsp spec) [Mass/Vol] 3.8 mmol/L 3.3-5.1 [facility] RBC Auto (Bld) [#/Vol]Ordere d By: Panda Littlejohn on 10-21-2024 RBC (Bld) [#/Vol] 3.29 10*6/uL Low 4.2-5.4 [facility] Screening total cholesterol/ high density lipoprotein (HDL) cholesterol ratioOrdered By: Panda Littlejohn on 10-21-2024 Cholesterol.total/Brittany sterol in HDL [Mass ratio] 2.76 {ratio} [facility] Serum creatinine measurement (mass/volume)Ordered By: Panda Littlejohn on 10-21-2024 Creatinine [Mass/Vol] 1.00 mg/dL 0.70-1.20 [facility] Serum globulin measurementOr dered By: Panda Littlejohn on 10-21-2024 Globulin (S) [Mass/Vol] 3.7 g/dL 2.2-4.2 [facility] Serum glucose measurement (m ass/volume)Ordered By: Panda Littlejohn on 10-21-2024 Glucose [Mass/Vol] 113 mg/dL High 70-[address] [facility] Serum or plasma alanine barrientos otransferase (ALT) measurementOrdered By: Panda Littlejohn on 10-21-2024 ALT [Catalytic activity/Vol] 10 U/L <35 [facility] Serum or plasma albumin jerod urement (mass/volume)Ordered By: Panda Littlejohn on 10-21-2024 Albumin [Mass/Vol] 3.9 g/dL 3.4-4.[address] [facility] Serum or plasma alkaline mingo sphatase measurementOrdered By: Panda Littlejohn on 10-21-2024 ALP [Catalytic activity/Vol] 134 U/L High 35-104 [facility] Serum or plasma calcium jerod urement (mass/volume)Ordered By: Panda Littlejohn on 10-21-2024 Calcium [Mass/Vol] 9.2 mg/dL 7.6-11.[address] [facility] Serum or plasma cholesterol in HDL measurement (mass/volume)Ordered By: Panda Littlejohn on 10-21-2024 Cholesterol in HDL [Mass/Vol] 83 mg/dL >40 [facility] Comment on above: National Cholesterol Education Program (NCEP) guidelines:<40 mg/dL: Low HDL-cholesterol (major risk factor for CHD)>= 60 mg/dL: High HDL-cholesterol (negative risk factor for CHD)HDL-cholesterol is affected by a number of factors, e.g. smoking, exercise, hormones, sex and age. Serum or plasma cholesterol measurement (mass/volume)Ordered By: Panda Littlejohn on 10-21-2024 Cholesterol [Mass/Vol] 228 mg/dL High <201 [facility] Comment on above: Cholesterol level, D esirable <200 mg/dLBorderline high cholesterol 200-239 mg/dLHigh cholesterol >=240 mg/dLRecommendations of the NCEP Adult Treatment Panel for the following risk-cutoff thresholds for the [place] population. Serum or plasma digoxin jerod urement (mass/volume)Ordered By: Panda Littlejohn on 10-21-2024 Digoxin [Mass/Vol] 0.46 ng/mL 0.00-2.[address] [facility] Serum or plasma urea nitroge n measurement (mass/volume)Ordered By: Panda Littlejohn on 10-21-2024 Urea nitrogen [Mass/Vol] 28 mg/dL High 4-19 [facility] Sodium levelOrdered By: Panda Littlejohn on 10-21-2024 Sodium [Moles/Vol] 138 mmol/L 133-[address] [facility] TSH DL <= 0.005 mIU/L QnOrde red By: Panda Littlejohn on 10-21-2024 TSH Qn 5.350 uIU/mL High 0.300-4.200 [facility] Thyroid Stim Hormone (TSH)on 10-21-2024 TSH 5.350 uIU/mL High 0.300-4.200 [facility] Comment on above: Order Comment: 104.2 Performed By: #### L 500.2500, L506.1001, L501.9520, L500.3400, L500.4100, L100.0500, L501.7510 ####[facility] [address] [place], [address] Total proteinOrdered By: Biju Littlejohn on 10-21-2024 Protein [Mass/Vol] 7.5 g/dL 5.9-8.[address] [facility] Triglycerides measurementOrd ered By: Panda Littlejohn on 10-21-2024 Triglyceride [Mass/Vol] 155 mg/dL <199 [facility] Comment on above: The drugs N-Acetylcy steine and Metamizole may falsely depress this assay. Normal range: <150 mg/dLBorderline High: 150-199 mg/dLHigh: 200-499 mg/dLVery High: >500 mg/dL Vitamin D,25 Hydroxyon 10-21 Vitamin D 25-OH 52.2 ng/mL Normal 30-100 [facility] Comment on above: Order Comment: 104.2 Result Comment: Marielle min D StatusDeficiency: <20 ng/mL (50nmol/L)Insufficiency: 20-30 ng/mL (50-75 nmol/L)Sufficiency: 30-100 ng/mL (75-250 nmol/L)Toxicity: >100 ng/mL (>250 nmol/L) Performed By: #### L 500.2500, L506.1001, L501.9520, L500.3400, L500.4100, L100.0500, L501.7510 ####[facility] [address] [place], [address] White blood cell (WBC) count Ordered By: Panda Littlejohn on 10-21-2024 WBC (Bld) [#/Vol] 5.9 10*3/uL 4.4-11.[address] [facility] L3700.3000on 10-08-2024 PHENobarbital [Mass/Vol] 41 ug/mL Abnormal 15-40 [facility] Comment on above: Order Comment: 104-2 Result Comment: Dete ction Limit = 3Patient drug level exceeds published reference range.Evaluate clinically for signs of potential toxicity.Performed at: [facility] - [facility] [id number] Director: Jose Vicente PhD, Phone: [phone] Performed By: #### L 3700.3000 ####[facility] [address] [place], [place], [id number] Culture, Blood (WB)on 2024 CUB Blood cultures x2, from two different sites No growth in 5 days. Normal [facility] Comment on above: Performed By: #### L 500.4050, L100.0100, M200.1000, L300.3900, L503.6005, L300.4310 ####[facility] [address] [place], [place], [id number] Basic Metabolic Profile (BMP )on 08-18-2024 BUN Normal 4-19 [facility] Comment on above: Result Comment: Canc elled via OM: Order cancelled - Patient discharged Performed By: #### L 100.0100, L500.2500 ####[facility] [address] [place], [address] BUN/CRE Normal 10-20 [facility] Comment on above: Result Comment: Canc elled via OM: Order cancelled - Patient discharged Performed By: #### L 100.0100, L500.2500 ####[facility] [address] [place], [address] Calcium Normal 7.6-11.0 [facility] Comment on above: Result Comment: Canc elled via OM: Order cancelled - Patient discharged Performed By: #### L 100.0100, L500.2500 ####[facility] [address] [place], [address] CL Normal 98-108 [facility] Comment on above: Result Comment: Canc elled via OM: Order cancelled - Patient discharged Performed By: #### L 100.0100, L500.2500 ####[facility] [address] [place], [address] CO2 Normal 21.0-32.0 [facility] Comment on above: Result Comment: Canc elled via OM: Order cancelled - Patient discharged Performed By: #### L 100.0100, L500.2500 ####[facility] [address] [place], [address] CREAT,SERUM Normal 0.70-1.20 [facility] Comment on above: Result Comment: Canc elled via OM: Order cancelled - Patient discharged Performed By: #### L 100.0100, L500.2500 ####[facility] [address] [place], [address] eGFR Normal >60 [facility] Comment on above: Result Comment: Canc elled via OM: Order cancelled - Patient discharged Performed By: #### L 100.0100, L500.2500 ####[facility] [address] [place], [address] GAP Normal 5-15 [facility] Comment on above: Result Comment: Canc elled via OM: Order cancelled - Patient discharged Performed By: #### L 100.0100, L500.2500 ####[facility] [address] [place], [address] GLU Normal 70-99 [facility] Comment on above: Result Comment: Canc elled via OM: Order cancelled - Patient discharged Performed By: #### L 100.0100, L500.2500 ####[facility] [address] [place], [address] Potassium Normal 3.3-5.1 [facility] Comment on above: Result Comment: Canc elled via OM: Order cancelled - Patient discharged Performed By: #### L 100.0100, L500.2500 ####[facility] [address] [place], [address] Basic Metabolic Profile (BMP) Normal 133-145 [facility] Comment on above: Result Comment: Canc elled via OM: Order cancelled - Patient discharged Performed By: #### L 100.0100, L500.2500 ####[facility] [address] [place], [address] CBC W/Diff, Automatedon - Absolute Neut Normal 2.0-7.7 [facility] Comment on above: Result Comment: Canc elled via OM: Order cancelled - Patient discharged Performed By: #### L 100.0100, L500.2500 ####[facility] [address] [place], [address] HCT Normal 37-47 [facility] Comment on above: Result Comment: Canc elled via OM: Order cancelled - Patient discharged Performed By: #### L 100.0100, L500.2500 ####[facility] [address] [place], [address] HGB Normal 12.0-15.0 [facility] Comment on above: Result Comment: Canc elled via OM: Order cancelled - Patient discharged Performed By: #### L 100.0100, L500.2500 ####[facility] [address] [place], [address] MCH Normal 27.0-32.0 [facility] Comment on above: Result Comment: Canc elled via OM: Order cancelled - Patient discharged Performed By: #### L 100.0100, L500.2500 ####[facility] [address] [place], [address] MCHC Normal 32-36 [facility] Comment on above: Result Comment: Canc elled via OM: Order cancelled - Patient discharged Performed By: #### L 100.0100, L500.2500 ####[facility] [address] [place], [address] MCV Normal 81-99 [facility] Comment on above: Result Comment: Canc elled via OM: Order cancelled - Patient discharged Performed By: #### L 100.0100, L500.2500 ####[facility] [address] [place], [address] NEUT% Normal 47-70 [facility] Comment on above: Result Comment: Canc elled via OM: Order cancelled - Patient discharged Performed By: #### L 100.0100, L500.2500 ####[facility] [address] [place], [address] PLT Normal 150-450 [facility] Comment on above: Result Comment: Canc elled via OM: Order cancelled - Patient discharged Performed By: #### L 100.0100, L500.2500 ####[facility] [address] [place], [address] RBC Normal 4.2-5.4 [facility] Comment on above: Result Comment: Canc elled via OM: Order cancelled - Patient discharged Performed By: #### L 100.0100, L500.2500 ####[facility] [address] [place], [address] RDW CV Normal 11.6-14.6 [facility] Comment on above: Result Comment: Canc elled via OM: Order cancelled - Patient discharged Performed By: #### L 100.0100, L500.2500 ####[facility] [address] [place], [address] RDW SD Normal 35.1-43.9 [facility] Comment on above: Result Comment: Canc elled via OM: Order cancelled - Patient discharged Performed By: #### L 100.0100, L500.2500 ####[facility] [address] [place], [address] WBC Normal 4.4-11.0 [facility] Comment on above: Result Comment: Canc elled via OM: Order cancelled - Patient discharged Performed By: #### L 100.0100, L500.2500 ####[facility] [address] [place], [address] 12 Lead EKGon 08-17-2024 12 Lead EKG Normal [facility] Absolute neutrophil countOrd ered By: Lc Head on 08-17-2024 Neutrophils (Bld) [#/Vol] 6.2 10*3/uL 2.0-7.7 [facility] Anion gap in Serum or Plasma Ordered By: Lc Head on 08-17-2024 Anion gap [Moles/Vol] 19 mmol/L High 10-22 [facility] BUN/creatinine ratioOrdered By: Lc Head on 08-17-2024 Urea nitrogen/Creatinine [Mass ratio] 41.4 mg/mg High 03-29 [facility] Basic Metabolic Profile (BMP )on 08-17-2024 BUN/CRE 41.4 RATIO High 03-29 [facility] Comment on above: Performed By: #### L 500.2500, L100.0100 ####[facility] [address] [place], [address] Calcium [Mass/Vol] 9.0 mg/dL Normal 7.6-11.[address] [facility] Comment on above: Performed By: #### L 500.2500, L100.0100 ####[facility] [address] [place], [address] Chloride [Moles/Vol] 99 mmol/L Normal 98-108 [facility] Comment on above: Performed By: #### L 500.2500, L100.0100 ####[facility] [address] [place], [address] CO2 [Moles/Vol] 24.6 mmol/L Normal 21.0-32.0 [facility] Comment on above: Performed By: #### L 500.2500, L100.0100 ####[facility] [address] [place], [address] Creatinine [Mass/Vol] 0.85 mg/dL Normal 0.70-1.20 [facility] Comment on above: Performed By: #### L 500.2500, L100.0100 ####[facility] [address] [place], [address] ECRCL 79.21 ml/min Normal 50-250 [facility] Comment on above: Performed By: #### L 500.2500, L100.0100 ####[facility] [address] [place], [address] GAP 19 High 5-15 [facility] Comment on above: Performed By: #### L 500.2500, L100.0100 ####[facility] [address] [place], [address] GFR/1.73 sq M.predicted among non-blacks MDRD (S/P/Bld) [Vol rate/Area] 72 mL/min/{1.73_m2} Normal >60 [facility] Comment on above: Result Comment: mL/m in/1.73m2 CKD-EPI Creatinine Equation (2020) Performed By: #### L 500.2500, L100.0100 ####[facility] [address] [place], [address] Glucose [Mass/Vol] 134 mg/dL High 70-[address] [facility] Comment on above: Performed By: #### L 500.2500, L100.0100 ####[facility] [address] [place], [address] Potassium [Moles/Vol] 3.6 mmol/L Normal 3.3-5.1 [facility] Comment on above: Performed By: #### L 500.2500, L100.0100 ####[facility] [address] [place], [address] Sodium [Moles/Vol] 143 mmol/L Normal 133-[address] [facility] Comment on above: Performed By: #### L 500.2500, L100.0100 ####[facility] [address] [place], [address] Urea nitrogen [Mass/Vol] 35 mg/dL High 4-19 [facility] Comment on above: Performed By: #### L 500.2500, L100.0100 ####[facility] [address] [place], [address] Basophil percentageOrdered B y: Lc Head on 08-17-2024 Basophils/100 WBC (Bld) 0.3 % 0-1 [facility] CBC W/Diff, Automatedon 08-08 Absolute Lymph 0.87 X10 3/uL Normal 0.83-4.51 [facility] Comment on above: Performed By: #### L 500.2500, L100.0100 ####[facility] [address] [place], [address] Absolute Neut 6.2 X10 3/uL Normal 2.0-7.7 [facility] Comment on above: Performed By: #### L 500.2500, L100.0100 ####[facility] [address] [place], [address] Basophils/100 WBC (Bld) 0.3 % Normal 0-1 [facility] Comment on above: Performed By: #### L 500.2500, L100.0100 ####[facility] [address] [place], [address] Eosinophils/100 WBC (Bld) 1.0 % Normal 0-5 [facility] Comment on above: Performed By: #### L 500.2500, L100.0100 ####[facility] [address] [place], [address] Erythrocyte distribution width (RBC) [Ratio] 15.7 % High 11.6-14.6 [facility] Comment on above: Performed By: #### L 500.2500, L100.0100 ####[facility] [address] [place], [address] Hematocrit (Bld) [Volume fraction] 31.2 % Low 37-47 [facility] Comment on above: Performed By: #### L 500.2500, L100.0100 ####[facility] [address] [place], [address] Hemoglobin (Bld) [Mass/Vol] 10.2 g/dL Low 12.0-15.0 [facility] Comment on above: Performed By: #### L 500.2500, L100.0100 ####[facility] [address] [place], [address] IG% 0.600 Normal 0.0-0.9 [facility] Comment on above: Result Comment: IG% - Immature Granulocytes (promyelocytes, myelocytes andmetamyelocytes) > 1% indicates that a LEFT SHIFT is Present. Performed By: #### L 500.2500, L100.0100 ####[facility] [address] [place], [address] Lymphocytes/100 WBC (Bld) 11.3 % Low 19-41 [facility] Comment on above: Performed By: #### L 500.2500, L100.0100 ####[facility] [address] [place], [address] MCH (RBC) [Entitic mass] 32.4 pg High 27.0-32.0 [facility] Comment on above: Performed By: #### L 500.2500, L100.0100 ####[facility] [address] [place], [address] MCHC (RBC) [Mass/Vol] 32.7 g/dL Normal 32-36 [facility] Comment on above: Performed By: #### L 500.2500, L100.0100 ####[facility] [address] [place], [address] MCV (RBC) [Entitic vol] 99.0 fL Normal 81-99 [facility] Comment on above: Performed By: #### L 500.2500, L100.0100 ####[facility] [address] [place], [address] Monocytes/100 WBC (Bld) 6.9 % Normal 0-10 [facility] Comment on above: Performed By: #### L 500.2500, L100.0100 ####[facility] [address] [place], [address] Neutrophils/100 WBC (Bld) 79.9 % High 47-70 [facility] Comment on above: Performed By: #### L 500.2500, L100.0100 ####[facility] [address] [place], [address] Nucleated RBC (Bld) [#/Vol] 0.3 10*3/uL Normal 0-5 [facility] Comment on above: Performed By: #### L 500.2500, L100.0100 ####[facility] [address] [place], [address] Platelet mean volume (Bld) [Entitic vol] 10.5 fL Normal 6.2-12.0 [facility] Comment on above: Performed By: #### L 500.2500, L100.0100 ####[facility] [address] [place], [address] Platelets (Bld) [#/Vol] 209 10*3/uL Normal 150-450 [facility] Comment on above: Performed By: #### L 500.2500, L100.0100 ####[facility] [address] [place], [address] RBC (Bld) [#/Vol] 3.15 10*6/uL Low 4.2-5.4 [facility] Comment on above: Performed By: #### L 500.2500, L100.0100 ####[facility] [address] [place], [address] RDW SD 56.3 fl High 35.1-43.9 [facility] Comment on above: Performed By: #### L 500.2500, L100.0100 ####[facility] [address] [place], [address] WBC (Bld) [#/Vol] 7.7 10*3/uL Normal 4.4-11.[address] [facility] Comment on above: Performed By: #### L 500.2500, L100.0100 ####[facility] [address] [place], [address] Carbon dioxide, total [Moles /volume] in Central venous bloodOrdered By: Lc Head on 08-17-2024 CO2 [Moles/Vol] 24.6 mmol/L 21.0-32.0 [facility] Cardiovascular stress test r eportOrdered By: Dinesh Medina on 08-17-2024 Study report [facility] [address] [place] [address] MR#: [id number] Acct: [id number] Name: ADRIENNE MORRISON Rep #: [id number] : 1950 74 From: Dinesh rivera MD [...] is 56%. This note was generated with Eventfulation software. It may contain incorrectwords, spelling, and punctuation that were not noted in checking the note beforesigning. 08/17/24 1102 Date _ Dinesh Medina MD CC: Dr. Rubina Saini MD; Dr. Ibeth Parker MD; Dr. Lc Head MD; Dr. Panda Littlejohn MD; Dr. Segundo Juarez DO ~ Date Dictated: 08/17/24 1058 Date Transcribed: 08/17/241057 Trucker: NN Signed [facility] Work Phone: Chloride assayOrdered By: Marquez Head on 08-17-2024 Chloride [Moles/Vol] 99 mmol/L 98-108 [facility] Electrocardiogram reportOrde red By: Benito Bright on 08-17-2024 EKG study [facility] [address] [place] [address] 12 Lead EKG 08/15/24 1146 MR#: [id number] Acct: [id number] Name: ADRIENNE MORRISON Rep #:[id number] : 1950 74 From: Benito keenan MD Attending Dr: Dr. 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 Lc Head MD; Dr. Panda Littlejohn MD ~ Signed [facility] Work Phone: EKG study [facility] [address] [place] [address] 12 Lead EKG 08/17/24 0600 MR#: [id number] Acct: [id number] Name: ADRIENNE MORRISON Rep #:[id number] : 1950 74 From: Benito keenan MD Attending Dr: Dr. Lc Head MD Status: ADM IN Ordering Dr: Lc Head MD Date: [place] [facility] [place] Sex: F C Admitted: 08/13/24 Test Reason [...] DATA IS UNCONFIRMED Confirmed by Benito Bright ([id number]), food expeditor DIA FENG ([id number]) on :01:51 PM Referred By: Confirmed By: Benito Bright 08/17/24 1301 Date _ Benito Bright MD CC: Dr. Lc Head MD; Dr. Panda Littlejohn MD ~ Signed [facility] Work Phone: [phone] Eosinophil percentageOrdered By: Lc Head on 08-17-2024 Eosinophils/100 WBC (Bld) 1.0 % 0-5 [facility] Erythrocyte distribution wid th ratioOrdered By: Lc Head on 08-17-2024 Erythrocyte distribution width (RBC) [Ratio] 15.7 % High 11.6-14.6 [facility] Erythrocyte distribution wid th standard deviationOrdered By: Lc Head on 08-17-2024 Erythrocyte distribution width (RBC) [Entitic vol] 56.3 fL High 35.1-43.9 [facility] Estimation of creatinine alina aranceOrdered By: Lc Head on 08-17-2024 Estimated Creatinine Clearance Calc 79.21 ml/min 50-250 [facility] GFR/1.73 sq M.predicted millie g non-blacks MDRD (S/P/Bld) [Vol rate/Area]Ordered By: Lc Head on 08-17-2024 Estimated GFR (MDRD) Non-Af Amer 72 >60 [facility] Comment on above: mL/min/1.73m2 CKD-EP I Creatinine Equation (2020) Hematocrit Auto (Bld) [Volum e fraction]Ordered By: Lc Head on 08-17-2024 Hematocrit (Bld) [Volume fraction] 31.2 % Low 37-47 [facility] Hemoglobin measurementOrdere d By: Lc Head on 08-17-2024 Hemoglobin (Bld) [Mass/Vol] 10.2 g/dL Low 12.0-15.0 [facility] Immature granulocytes/100 WB C Auto (Bld)Ordered By: Lc Head on 08-17-2024 Immature granulocytes/100 WBC (Bld) 0.600 % 0.0-0.9 [facility] Comment on above: IG% - Immature Granu locytes (promyelocytes, myelocytes and metamyelocytes) > 1% indicates that a LEFT SHIFT is Present. Lymphocytes Auto (Unsp spec) [#/Vol]Ordered By: Lc Head on 08-17-2024 Lymphocytes (Bld) [#/Vol] 0.87 10*3/uL 0.83-4.51 [facility] Lymphocytes/100 WBC Auto (Un sp spec)Ordered By: Lc Head on 08-17-2024 Lymphocytes/100 WBC (Bld) 11.3 % Low 19-41 [facility] MCV (mean corpuscular volume ) determinationOrdered By: Lc Head on 08-17-2024 MCV (RBC) [Entitic vol] 99.0 fL 81-99 [facility] Mean corpuscular hemoglobin (MCH) determinationOrdered By: Lc Head on 08-17-2024 MCH (RBC) [Entitic mass] 32.4 pg High 27.0-32.0 [facility] Mean corpuscular hemoglobin concentration (MCHC) determinationOrdered By: Lc Head on 08-17-2024 MCHC (RBC) [Mass/Vol] 32.7 g/dL 32-36 [facility] Mean platelet volume determi nationOrdered By: Lc Head on 08-17-2024 Platelet mean volume (Bld) [Entitic vol] 10.5 fL 6.2-12.0 [facility] Monocyte percentageOrdered B y: Lc Head on 08-17-2024 Monocytes/100 WBC (Bld) 6.9 % 0-10 [facility] Neutrophil percentageOrdered By: Lc Head on 08-17-2024 Neutrophils/100 WBC (Bld) 79.9 % High 47-70 [facility] Nucleated red blood cell per centageOrdered By: Lc Head on 08-17-2024 Nucleated RBC/100 WBC (Bld) [Ratio] 0.3 % 0-5 [facility] Platelet countOrdered By: Marquez Head on 08-17-2024 Platelets (Bld) [#/Vol] 209 10*3/uL 150-450 [facility] Potassium (Unsp spec) [Mass/ Vol]Ordered By: Lc Head on 08-17-2024 Potassium [Moles/Vol] 3.6 mmol/L 3.3-5.1 [facility] RBC Auto (Bld) [#/Vol]Ordere d By: Lc Head on 08-17-2024 RBC (Bld) [#/Vol] 3.15 10*6/uL Low 4.2-5.4 [facility] Respiratory Cultureon 2024 RESPC Normal [facility] Comment on above: Performed By: #### M 100.2000, M100.2400 ####[facility] [address] [place], [address] Serum creatinine measurement (mass/volume)Ordered By: Lc Head on 08-17-2024 Creatinine [Mass/Vol] 0.85 mg/dL 0.70-1.20 [facility] Serum glucose measurement (m ass/volume)Ordered By: Lc Head on 08-17-2024 Glucose [Mass/Vol] 134 mg/dL High 70-[address] [facility] Serum or plasma calcium jerod urement (mass/volume)Ordered By: Lc Head on 08-17-2024 Calcium [Mass/Vol] 9.0 mg/dL 7.6-11.[address] [facility] Serum or plasma urea nitroge n measurement (mass/volume)Ordered By: Lc Head on 08-17-2024 Urea nitrogen [Mass/Vol] 35 mg/dL High 4-19 [facility] Sodium levelOrdered By: Barron Head on 08-17-2024 Sodium [Moles/Vol] 143 mmol/L 133-[address] [facility] Stress Reporton 08-17-2024 Stress Report Normal [facility] Venous duplex ultrasound rep ortOrdered By: Dallas Morris on 08-17-2024 US Vein [facility] [address] [place] [address] Venous Duplex US - Ambrose Extrem 08/14/24 0918 MR#: [id number] Acct: [id number] Name: ADRIENNE MORRISON Rep #:[id number] : 1950 74 From: Dallas Gar Attending [...] preliminary report was called and/or faxed to [facility]. VL/Venous Duplex US - Ambrose Extrem [...] ~ Date Dictated: 08/14/24917 Date Transcribed: 08/17/24845 Trucker: Signed [facility] Work Phone: White blood cell (WBC) count Ordered By: Lc Head on 08-17-2024 WBC (Bld) [#/Vol] 7.7 10*3/uL 4.4-11.[address] [facility] Basic Metabolic Profile (BMP )on 08-16-2024 BUN/CRE 27.2 RATIO High 10-20 [facility] Comment on above: Performed By: #### L 500.2500, L100.0100 ####[facility] [address] [place], [address] Calcium [Mass/Vol] 8.6 mg/dL Normal 7.6-11.[address] [facility] Comment on above: Performed By: #### L 500.2500, L100.0100 ####[facility] [address] [place], [address] Chloride [Moles/Vol] 101 mmol/L Normal 98-108 [facility] Comment on above: Performed By: #### L 500.2500, L100.0100 ####[facility] [address] [place], [address] CO2 [Moles/Vol] 24.7 mmol/L Normal 21.0-32.0 [facility] Comment on above: Performed By: #### L 500.2500, L100.0100 ####[facility] [address] [place], [address] Creatinine [Mass/Vol] 0.96 mg/dL Normal 0.70-1.20 [facility] Comment on above: Performed By: #### L 500.2500, L100.0100 ####[facility] [address] [place], [address] ECRCL 70.55 ml/min Normal 50-250 [facility] Comment on above: Performed By: #### L 500.2500, L100.0100 ####[facility] [address] [place], [address] GAP 14 Normal 5-15 [facility] Comment on above: Performed By: #### L 500.2500, L100.0100 ####[facility] [address] [place], [address] GFR/1.73 sq M.predicted among non-blacks MDRD (S/P/Bld) [Vol rate/Area] 61 mL/min/{1.73_m2} Normal >60 [facility] Comment on above: Result Comment: mL/m in/1.73m2 CKD-EPI Creatinine Equation (2020) Performed By: #### L 500.2500, L100.0100 ####[facility] [address] [place], [address] Glucose [Mass/Vol] 111 mg/dL High 70-[address] [facility] Comment on above: Performed By: #### L 500.2500, L100.0100 ####[facility] [address] [place], [address] Potassium [Moles/Vol] 3.8 mmol/L Normal 3.3-5.1 [facility] Comment on above: Performed By: #### L 500.2500, L100.0100 ####[facility] [address] [place], [address] Sodium [Moles/Vol] 139 mmol/L Normal 133-[address] [facility] Comment on above: Performed By: #### L 500.2500, L100.0100 ####[facility] [address] [place], [address] Urea nitrogen [Mass/Vol] 26 mg/dL High 4-19 [facility] Comment on above: Performed By: #### L 500.2500, L100.0100 ####[facility] [address] [place], [address] CBC W/Diff, Automatedon 03-0 9-5 Absolute Lymph 0.82 X10 3/uL Low 0.83-4.51 [facility] Comment on above: Performed By: #### L 500.2500, L100.0100 ####[facility] [address] [place], [address] Absolute Neut 5.8 X10 3/uL Normal 2.0-7.7 [facility] Comment on above: Performed By: #### L 500.2500, L100.0100 ####[facility] [address] [place], [address] Basophils/100 WBC (Bld) 0.1 % Normal 0-1 [facility] Comment on above: Performed By: #### L 500.2500, L100.0100 ####[facility] [address] [place], [address] Eosinophils/100 WBC (Bld) 0.1 % Normal 0-5 [facility] Comment on above: Performed By: #### L 500.2500, L100.0100 ####[facility] [address] [place], [address] Erythrocyte distribution width (RBC) [Ratio] 15.9 % High 11.6-14.6 [facility] Comment on above: Performed By: #### L 500.2500, L100.0100 ####[facility] [address] [place], [address] Hematocrit (Bld) [Volume fraction] 29.2 % Low 37-47 [facility] Comment on above: Performed By: #### L 500.2500, L100.0100 ####[facility] [address] [place], [address] Hemoglobin (Bld) [Mass/Vol] 9.6 g/dL Low 12.0-15.0 [facility] Comment on above: Performed By: #### L 500.2500, L100.0100 ####[facility] [address] [place], [address] IG% 0.700 Normal 0.0-0.9 [facility] Comment on above: Result Comment: IG% - Immature Granulocytes (promyelocytes, myelocytes andmetamyelocytes) > 1% indicates that a LEFT SHIFT is Present. Performed By: #### L 500.2500, L100.0100 ####[facility] [address] [place], [address] Lymphocytes/100 WBC (Bld) 11.5 % Low 19-41 [facility] Comment on above: Performed By: #### L 500.2500, L100.0100 ####[facility] [address] [place], [address] MCH (RBC) [Entitic mass] 32.4 pg High 27.0-32.0 [facility] Comment on above: Performed By: #### L 500.2500, L100.0100 ####[facility] [address] [place], [address] MCHC (RBC) [Mass/Vol] 32.9 g/dL Normal 32-36 [facility] Comment on above: Performed By: #### L 500.2500, L100.0100 ####[facility] [address] [place], [address] MCV (RBC) [Entitic vol] 98.6 fL Normal 81-99 [facility] Comment on above: Performed By: #### L 500.2500, L100.0100 ####[facility] [address] [place], [address] Monocytes/100 WBC (Bld) 6.2 % Normal 0-10 [facility] Comment on above: Performed By: #### L 500.2500, L100.0100 ####[facility] [address] [place], [address] Neutrophils/100 WBC (Bld) 81.4 % High 47-70 [facility] Comment on above: Performed By: #### L 500.2500, L100.0100 ####[facility] [address] [place], [address] Nucleated RBC (Bld) [#/Vol] 0 10*3/uL Normal 0-5 [facility] Comment on above: Performed By: #### L 500.2500, L100.0100 ####[facility] [address] [place], [address] Platelet mean volume (Bld) [Entitic vol] 10.8 fL Normal 6.2-12.0 [facility] Comment on above: Performed By: #### L 500.2500, L100.0100 ####[facility] [address] [place], [address] Platelets (Bld) [#/Vol] 163 10*3/uL Normal 150-450 [facility] Comment on above: Performed By: #### L 500.2500, L100.0100 ####[facility] [address] [place], [address] RBC (Bld) [#/Vol] 2.96 10*6/uL Low 4.2-5.4 [facility] Comment on above: Performed By: #### L 500.2500, L100.0100 ####[facility] [address] [place], [address] RDW SD 57.5 fl High 35.1-43.9 [facility] Comment on above: Performed By: #### L 500.2500, L100.0100 ####[facility] [address] [place], [address] WBC (Bld) [#/Vol] 7.1 10*3/uL Normal 4.4-11.[address] [facility] Comment on above: Performed By: #### L 500.2500, L100.0100 ####[facility] [address] [place], [address] Chest 1 View (Portable)on Chest 1 View (Portable) Normal [facility] 12 Lead EKGon 08-15-2024 12 Lead EKG Normal [facility] Bilirubin, totalOrdered By: Lc Head on 08-15-2024 Bilirubin [Mass/Vol] 0.18 mg/dL 0.00-1.30 [facility] CBC-Complete Blood Cnt No Di ffon 08-15-2024 Erythrocyte distribution width (RBC) [Ratio] 16.0 % High 11.6-14.6 [facility] Comment on above: Performed By: #### L 501.2300, L100.0500 ####[facility] [address] [place], [address] Hematocrit (Bld) [Volume fraction] 29.6 % Low 37-47 [facility] Comment on above: Performed By: #### L 501.2300, L100.0500 ####[facility] [address] [place], [address] Hemoglobin (Bld) [Mass/Vol] 9.5 g/dL Low 12.0-15.0 [facility] Comment on above: Performed By: #### L 501.2300, L100.0500 ####[facility] [address] [place], [address] MCH (RBC) [Entitic mass] 32.0 pg Normal 27.0-32.0 [facility] Comment on above: Performed By: #### L 501.2300, L100.0500 ####[facility] [address] [place], [address] MCHC (RBC) [Mass/Vol] 32.1 g/dL Normal 32-36 [facility] Comment on above: Performed By: #### L 501.2300, L100.0500 ####[facility] [address] [place], [address] MCV (RBC) [Entitic vol] 99.7 fL High 81-99 [facility] Comment on above: Performed By: #### L 501.2300, L100.0500 ####[facility] [address] [place], [address] Platelet mean volume (Bld) [Entitic vol] 11.1 fL Normal 6.2-12.0 [facility] Comment on above: Performed By: #### L 501.2300, L100.0500 ####[facility] [address] [place], [address] Platelets (Bld) [#/Vol] 160 10*3/uL Normal 150-450 [facility] Comment on above: Performed By: #### L 501.2300, L100.0500 ####[facility] [address] [place], [address] RBC (Bld) [#/Vol] 2.97 10*6/uL Low 4.2-5.4 [facility] Comment on above: Performed By: #### L 501.2300, L100.0500 ####[facility] [address] [place], [address] RDW SD 58.9 fl High 35.1-43.9 [facility] Comment on above: Performed By: #### L 501.2300, L100.0500 ####[facility] [address] [place], [address] WBC (Bld) [#/Vol] 9.9 10*3/uL Normal 4.4-11.[address] [facility] Comment on above: Performed By: #### L 501.2300, L100.0500 ####[facility] [address] [place], [address] Comprehensive Metabolic Prof ilon 08-15-2024 Albumin [Mass/Vol] 3.6 g/dL Normal 3.4-4.[address] [facility] Comment on above: Performed By: #### L 500.4050, L501.5200 ####[facility] [address] [place], [address] Albumin/Globulin [Mass ratio] 1.1 {ratio} Normal 0.9-2.4 [facility] Comment on above: Performed By: #### L 500.4050, L501.5200 ####[facility] [address] [place], [address] ALK PHOS 100 U/L Normal 35-104 [facility] Comment on above: Performed By: #### L 500.4050, L501.5200 ####[facility] [address] [place], [address] ALT [Catalytic activity/Vol] 19 U/L Normal <=34 [facility] Comment on above: Performed By: #### L 500.4050, L501.5200 ####[facility] [address] [place], [address] AST [Catalytic activity/Vol] 42 U/L High <=31 [facility] Comment on above: Performed By: #### L 500.4050, L501.5200 ####[facility] [address] [place], [address] Bilirubin [Mass/Vol] 0.18 mg/dL Normal 0.00-1.30 [facility] Comment on above: Performed By: #### L 500.4050, L501.5200 ####[facility] [address] [place], [address] BUN/CRE 30.8 RATIO High 10-20 [facility] Comment on above: Performed By: #### L 500.4050, L501.5200 ####[facility] [address] [place], [address] Calcium [Mass/Vol] 8.5 mg/dL Normal 7.6-11.[address] [facility] Comment on above: Performed By: #### L 500.4050, L501.5200 ####[facility] [address] [place], [address] Chloride [Moles/Vol] 103 mmol/L Normal 98-108 [facility] Comment on above: Performed By: #### L 500.4050, L501.5200 ####[facility] [address] [place], [address] CO2 [Moles/Vol] 24.6 mmol/L Normal 21.0-32.0 [facility] Comment on above: Performed By: #### L 500.4050, L501.5200 ####[facility] [address] [place], [address] Creatinine [Mass/Vol] 1.01 mg/dL Normal 0.70-1.20 [facility] Comment on above: Performed By: #### L 500.4050, L501.5200 ####[facility] [address] [place], [address] ECRCL 67.06 ml/min Normal 50-250 [facility] Comment on above: Performed By: #### L 500.4050, L501.5200 ####[facility] [address] [place], [address] GAP 11 Normal 5-15 [facility] Comment on above: Performed By: #### L 500.4050, L501.5200 ####[facility] [address] [place], [address] GFR/1.73 sq M.predicted among non-blacks MDRD (S/P/Bld) [Vol rate/Area] 58 mL/min/{1.73_m2} Low >60 [facility] Comment on above: Result Comment: mL/m in/1.73m2 CKD-EPI Creatinine Equation (2020) Performed By: #### L 500.4050, L501.5200 ####[facility] [address] [place], [address] Globulin (S) [Mass/Vol] 3.2 g/dL Normal 2.2-4.2 [facility] Comment on above: Performed By: #### L 500.4050, L501.5200 ####[facility] [address] [place], [address] Glucose [Mass/Vol] 101 mg/dL High 70-[address] [facility] Comment on above: Performed By: #### L 500.4050, L501.5200 ####[facility] [address] [place], [address] Potassium [Moles/Vol] 3.9 mmol/L Normal 3.3-5.1 [facility] Comment on above: Performed By: #### L 500.4050, L501.5200 ####[facility] [address] [place], [address] Sodium [Moles/Vol] 139 mmol/L Normal 133-[address] [facility] Comment on above: Performed By: #### L 500.4050, L501.5200 ####[facility] [address] [place], [address] T PROT 6.8 g/dL Normal 5.9-8.4 [facility] Comment on above: Performed By: #### L 500.4050, L501.5200 ####[facility] [address] [place], [place], [address] Urea nitrogen [Mass/Vol] 31 mg/dL High 4-19 [facility] Comment on above: Performed By: #### L 500.4050, L501.5200 ####[facility] [address] [place], [place], [address] Laboratory - Chemistry and C hemistry - challengeOrdered By: Lc Head on 08-15-2024 AST [Catalytic activity/Vol] 42 U/L High <32 [facility] Magnesiumon 08-15-2024 Magnesium [Mass/Vol] 1.9 mg/dL Normal 1.5-2.2 [facility] Comment on above: Performed By: #### L 500.4050, L501.5200 ####[facility] [address] [place], [place], [address] Magnesium (Unsp spec) [Mass/ Vol]Ordered By: Lc Head on 08-15-2024 Magnesium [Mass/Vol] 1.9 mg/dL 1.5-2.2 [facility] Phosphoruson 08-15-2024 Phosphate [Mass/Vol] 2.5 mg/dL Low 2.7-4.5 [facility] Comment on above: Performed By: #### L 501.2300, L100.0500 ####[facility] [address] [place], [place], [address] Serum globulin measurementOr dered By: Lc Head on 08-15-2024 Globulin (S) [Mass/Vol] 3.2 g/dL 2.2-4.2 [facility] Serum or plasma alanine barrientos otransferase (ALT) measurementOrdered By: Lc Head on 08-15-2024 ALT [Catalytic activity/Vol] 19 U/L <35 [facility] Serum or plasma albumin jerod urement (mass/volume)Ordered By: Lc Head on 08-15-2024 Albumin [Mass/Vol] 3.6 g/dL 3.4-4.[address] [facility] Serum or plasma albumin/glob ulin mass ratioOrdered By: Lc Head on 08-15-2024 Albumin/Globulin [Mass ratio] 1.1 {ratio} 0.9-2.4 [facility] Serum or plasma alkaline mingo sphatase measurementOrdered By: Lc Head on 08-15-2024 ALP [Catalytic activity/Vol] 100 U/L 35-104 [facility] Serum phosphorus measurement Ordered By: Lc Head on 08-15-2024 Phosphorus Level 2.5 mg/dL Low 2.7-4.5 [facility] Total proteinOrdered By: Benjamin Head on 08-15-2024 Protein [Mass/Vol] 6.8 g/dL 5.9-8.[address] [facility] Urine Cultureon 08-15-2024 URC Normal [facility] Comment on above: Performed By: #### L 400.0001, M100.2200 ####[facility] [address] [place], [address] Vancomycin trough [Mass/Vol] Ordered By: Ibeth Parker on 08-15-2024 Vancomycin Level Trough 19.2 ug/mL High 5.0-15.0 [facility] Comment on above: Recommended goal tro ugh [...] therapy recommended for serious lifethreatening infections include:- Doikvzxiil-Stwcdablzjqj-Zdcamiiiw (Ventilator/Healtcare Associated)-Sepsis PLEASE CONTACT PHARMACY SERVICES (#[id number]) FOR INTERPRETATIONOF RESULTS. Vancomycin, Trough Levelon 0 08-15-2024 VANCO, TROUGH 19.2 ug/mL High 5.0-15.0 [facility] Comment on above: Order Comment: Comme nts: Trough to be drawn 30 mins prior to scheduled [id number] Result Comment: Wu mmended goal trough ranges [...] therapy recommended for serious lifethreatening infections include:- Wqmkbacskw-Ccpjwjtobrri-Pjudfffhj (Ventilator/Healtcare Associated)-SepsisPLEASE CONTACT PHARMACY SERVICES (#[id number]) FOR INTERPRETATIONOF RESULTS. Performed By: #### L 501.8820 ####[facility] [address] [place], [address] CBC W/Diff, Automatedon 03-0 7-2024 Absolute Lymph 0.70 X10 3/uL Low 0.83-4.51 [facility] Comment on above: Performed By: #### L 500.4050, L500.4100, L100.0100, L501.9520 ####[facility] [address] [place], [address] Absolute Neut 11.3 X10 3/uL High 2.0-7.7 [facility] Comment on above: Performed By: #### L 500.4050, L500.4100, L100.0100, L501.9520 ####[facility] [address] [place], [address] Basophils/100 WBC (Bld) 0.2 % Normal 0-1 [facility] Comment on above: Performed By: #### L 500.4050, L500.4100, L100.0100, L501.9520 ####[facility] [address] [place], [address] Eosinophils/100 WBC (Bld) 0.2 % Normal 0-5 [facility] Comment on above: Performed By: #### L 500.4050, L500.4100, L100.0100, L501.9520 ####[facility] [address] [place], [address] Erythrocyte distribution width (RBC) [Ratio] 15.9 % High 11.6-14.6 [facility] Comment on above: Performed By: #### L 500.4050, L500.4100, L100.0100, L501.9520 ####[facility] [address] [place], [address] Hematocrit (Bld) [Volume fraction] 31.8 % Low 37-47 [facility] Comment on above: Performed By: #### L 500.4050, L500.4100, L100.0100, L501.9520 ####[facility] [address] [place], [address] Hemoglobin (Bld) [Mass/Vol] 10.2 g/dL Low 12.0-15.0 [facility] Comment on above: Performed By: #### L 500.4050, L500.4100, L100.0100, L501.9520 ####[facility] [address] [place], [address] IG% 0.500 Normal 0.0-0.9 [facility] Comment on above: Result Comment: IG% - Immature Granulocytes (promyelocytes, myelocytes andmetamyelocytes) > 1% indicates that a LEFT SHIFT is Present. Performed By: #### L 500.4050, L500.4100, L100.0100, L501.9520 ####[facility] [address] [place], [address] Lymphocytes/100 WBC (Bld) 5.5 % Low 19-41 [facility] Comment on above: Performed By: #### L 500.4050, L500.4100, L100.0100, L501.9520 ####[facility] [address] [place], [address] MCH (RBC) [Entitic mass] 31.9 pg Normal 27.0-32.0 [facility] Comment on above: Performed By: #### L 500.4050, L500.4100, L100.0100, L501.9520 ####[facility] [address] [place], [address] MCHC (RBC) [Mass/Vol] 32.1 g/dL Normal 32-36 [facility] Comment on above: Performed By: #### L 500.4050, L500.4100, L100.0100, L501.9520 ####[facility] [address] [place], [address] MCV (RBC) [Entitic vol] 99.4 fL High 81-99 [facility] Comment on above: Performed By: #### L 500.4050, L500.4100, L100.0100, L501.9520 ####[facility] [address] [place], [address] Monocytes/100 WBC (Bld) 5.6 % Normal 0-10 [facility] Comment on above: Performed By: #### L 500.4050, L500.4100, L100.0100, L501.9520 ####[facility] [address] [place], [address] Neutrophils/100 WBC (Bld) 88.0 % High 47-70 [facility] Comment on above: Performed By: #### L 500.4050, L500.4100, L100.0100, L501.9520 ####[facility] [address] [place], [address] Nucleated RBC (Bld) [#/Vol] 0 10*3/uL Normal 0-5 [facility] Comment on above: Performed By: #### L 500.4050, L500.4100, L100.0100, L501.9520 ####[facility] [address] [place], [address] Platelet mean volume (Bld) [Entitic vol] 10.6 fL Normal 6.2-12.0 [facility] Comment on above: Performed By: #### L 500.4050, L500.4100, L100.0100, L501.9520 ####[facility] [address] [place], [address] Platelets (Bld) [#/Vol] 145 10*3/uL Low 150-450 [facility] Comment on above: Performed By: #### L 500.4050, L500.4100, L100.0100, L501.9520 ####[facility] [address] [place], [address] RBC (Bld) [#/Vol] 3.20 10*6/uL Low 4.2-5.4 [facility] Comment on above: Performed By: #### L 500.4050, L500.4100, L100.0100, L501.9520 ####[facility] [address] [place], [address] RDW SD 58.2 fl High 35.1-43.9 [facility] Comment on above: Performed By: #### L 500.4050, L500.4100, L100.0100, L501.9520 ####[facility] [address] [place], [address] WBC (Bld) [#/Vol] 12.8 10*3/uL High 4.4-11.0 [facility] Comment on above: Performed By: #### L 500.4050, L500.4100, L100.0100, L501.9520 ####[facility] [address] [place], [address] Absolute Neut Normal 2.0-7.7 [facility] Comment on above: Result Comment: Canc elled via OM: Duplicate Order Performed By: #### L 100.0100 ####[facility] [address] [place], [address] HCT Normal 37-47 [facility] Comment on above: Result Comment: Canc elled via OM: Duplicate Order Performed By: #### L 100.0100 ####[facility] [address] [place], [address] HGB Normal 12.0-15.0 [facility] Comment on above: Result Comment: Canc elled via OM: Duplicate Order Performed By: #### L 100.0100 ####[facility] [address] [place], [address] MCH Normal 27.0-32.0 [facility] Comment on above: Result Comment: Canc elled via OM: Duplicate Order Performed By: #### L 100.0100 ####[facility] [address] [place], [address] MCHC Normal 32-36 [facility] Comment on above: Result Comment: Canc elled via OM: Duplicate Order Performed By: #### L 100.0100 ####[facility] [address] [place], [address] MCV Normal 81-99 [facility] Comment on above: Result Comment: Canc elled via OM: Duplicate Order Performed By: #### L 100.0100 ####[facility] [address] [place], [address] NEUT% Normal 47-70 [facility] Comment on above: Result Comment: Canc elled via OM: Duplicate Order Performed By: #### L 100.0100 ####[facility] [address] [place], [address] PLT Normal 150-450 [facility] Comment on above: Result Comment: Canc elled via OM: Duplicate Order Performed By: #### L 100.0100 ####[facility] [address] [place], [address] RBC Normal 4.2-5.4 [facility] Comment on above: Result Comment: Canc elled via OM: Duplicate Order Performed By: #### L 100.0100 ####[facility] [address] [place], [address] RDW CV Normal 11.6-14.6 [facility] Comment on above: Result Comment: Canc elled via OM: Duplicate Order Performed By: #### L 100.0100 ####[facility] [address] [place], [address] RDW SD Normal 35.1-43.9 [facility] Comment on above: Result Comment: Canc elled via OM: Duplicate Order Performed By: #### L 100.0100 ####[facility] [address] [place], [address] WBC Normal 4.4-11.0 [facility] Comment on above: Result Comment: Canc elled via OM: Duplicate Order Performed By: #### L 100.0100 ####[facility] [address] [place], [address] Calculated very low density lipoprotein (VLDL) cholesterol measurementOrdered By: Ibeth Parker on 08-14-2024 VLDL Cholesterol 8 mg/dL 5-40 [facility] Comprehensive Metabolic Prof ilon 08-14-2024 Albumin [Mass/Vol] 3.7 g/dL Normal 3.4-4.[address] [facility] Comment on above: Performed By: #### L 500.4050, L500.4100, L100.0100, L501.9520 ####[facility] [address] [place], [address] Albumin/Globulin [Mass ratio] 1.1 {ratio} Normal 0.9-2.4 [facility] Comment on above: Performed By: #### L 500.4050, L500.4100, L100.0100, L501.9520 ####[facility] [address] [place], [address] ALK PHOS 109 U/L High 35-104 [facility] Comment on above: Performed By: #### L 500.4050, L500.4100, L100.0100, L501.9520 ####[facility] [address] [place], [address] ALT [Catalytic activity/Vol] 22 U/L Normal <=34 [facility] Comment on above: Performed By: #### L 500.4050, L500.4100, L100.0100, L501.9520 ####[facility] [address] [place], [address] AST [Catalytic activity/Vol] 38 U/L High <=31 [facility] Comment on above: Performed By: #### L 500.4050, L500.4100, L100.0100, L501.9520 ####[facility] [address] [place], [address] BUN/CRE 21.5 RATIO High 10-20 [facility] Comment on above: Performed By: #### L 500.4050, L500.4100, L100.0100, L501.9520 ####[facility] [address] [place], [address] Calcium [Mass/Vol] 8.4 mg/dL Normal 7.6-11.[address] [facility] Comment on above: Performed By: #### L 500.4050, L500.4100, L100.0100, L501.9520 ####[facility] [address] [place], [address] Chloride [Moles/Vol] 101 mmol/L Normal 98-108 [facility] Comment on above: Performed By: #### L 500.4050, L500.4100, L100.0100, L501.9520 ####[facility] [address] [place], [address] CO2 [Moles/Vol] 22.8 mmol/L Normal 21.0-32.0 [facility] Comment on above: Performed By: #### L 500.4050, L500.4100, L100.0100, L501.9520 ####[facility] [address] [place], [address] Creatinine [Mass/Vol] 1.55 mg/dL High 0.70-1.20 [facility] Comment on above: Performed By: #### L 500.4050, L500.4100, L100.0100, L501.9520 ####[facility] [address] [place], [address] ECRCL 43.56 ml/min Low 50-250 [facility] Comment on above: Performed By: #### L 500.4050, L500.4100, L100.0100, L501.9520 ####[facility] [address] [place], [address] GAP 16 High 5-15 [facility] Comment on above: Performed By: #### L 500.4050, L500.4100, L100.0100, L501.9520 ####[facility] [address] [place], [address] GFR/1.73 sq M.predicted among non-blacks MDRD (S/P/Bld) [Vol rate/Area] 35 mL/min/{1.73_m2} Low >60 [facility] Comment on above: Result Comment: mL/m in/1.73m2 CKD-EPI Creatinine Equation (2020) Performed By: #### L 500.4050, L500.4100, L100.0100, L501.9520 ####[facility] [address] [place], [address] Globulin (S) [Mass/Vol] 3.3 g/dL Normal 2.2-4.2 [facility] Comment on above: Performed By: #### L 500.4050, L500.4100, L100.0100, L501.9520 ####[facility] [address] [place], [address] Glucose [Mass/Vol] 114 mg/dL High 70-[address] [facility] Comment on above: Performed By: #### L 500.4050, L500.4100, L100.0100, L501.9520 ####[facility] [address] [place], [address] Potassium [Moles/Vol] 4.5 mmol/L Normal 3.3-5.1 [facility] Comment on above: Performed By: #### L 500.4050, L500.4100, L100.0100, L501.9520 ####[facility] [address] [place], [address] Sodium [Moles/Vol] 140 mmol/L Normal 133-[address] [facility] Comment on above: Performed By: #### L 500.4050, L500.4100, L100.0100, L501.9520 ####[facility] [address] [place], [address] T BILI < 0.15 Normal 0.00-1.30 [facility] Comment on above: Performed By: #### L 500.4050, L500.4100, L100.0100, L501.9520 ####[facility] [address] [place], [address] T PROT 7.0 g/dL Normal 5.9-8.4 [facility] Comment on above: Performed By: #### L 500.4050, L500.4100, L100.0100, L501.9520 ####[facility] [address] [place], [address] Urea nitrogen [Mass/Vol] 33 mg/dL High 4-19 [facility] Comment on above: Performed By: #### L 500.4050, L500.4100, L100.0100, L501.9520 ####[facility] [address] [place], [address] Consultation - Cardiologyon 08-14-2024 Consultation - Cardiology Normal [facility] Echocardiogram study reportO rdered By: Rubina Saini on 08-14-2024 Study report [facility] [address] [place] [address] Echo Complete W/ Contrast 08/14/24 0727 MR#: [id number] Acct: [id number] Name: ADRIENNE MORRISON Rep #:[id number] : 1950 74 From: Rubina Saini MD [...] ~ Date Dictated: 08/14/24726 Date Transcribed: 08/14/241114 Trucker: Signed [facility] Work Phone: Gram Stainon 08-14-2024 GS Not obtained in 1 hr , induce w/nebulized 0.9% NaCL Acceptable Specimen? Yes (<25 Epithelial cells per/lpf) Gram Stain 1+ White Blood Cells 2+ Epithelial cells 1+ Gram positive cocci Normal [facility] Comment on above: Performed By: #### M 100.2000, M100.2400 ####[facility] [address] [place], [address] Gram stainOrdered By: Ibeth Parker on 08-14-2024 Microscopic observation Gram stain Nom (Unsp spec) [facility] L503.7505on 08-14-2024 Natriuretic peptide B (Bld) [Mass/Vol] 3934 pg/mL High <=1800 [facility] Comment on above: Result Comment: Hear t Failure Unlikely: < 300 pg/mLHeart Failure Likely< 50 Years: > 450 pg/mL50-75 Years: > 900 pg/mL>75 Years: > 1800 pg/mL Performed By: #### L 503.7505, L509.7005 ####[facility] [address] [place], [place], [id number] L509.7002on 08-14-2024 Procalcitonin 0.39 ng/mL High <=0.10 [facility] Comment on above: Result Comment: Inte rpretation:<0.10-0.25 ng/mL: Antibiotic therapy discouraged. Bacterialinfection unlikely.0.25-0.50 ng/mL: Antibiotic therapy encouraged. Bacterialinfection possible.>0.50 ng/mL: Antibiotic therapy strongly encouraged.Suggestive of presence of bacterial infection.PCT should always be interpreted in the clinical context ofthe patient. Therefore, clinicians should use the PCTresults in conjunction with other laboratory findings andclinical signs of the patient. Performed By: #### L 503.7505, L509.7001 ####[facility] [address] [place], [place], [address] LDL calc ser/plasOrdered By: Ibeth Parker on 08-14-2024 LDL Cholesterol, Calculated 77 mg/dL [facility] Comment on above: Arhcivogbw=495-887 m g/dL & Higher Mrzc=890 mg/dL or greater Laboratory - Chemistry and C hemistry - challengeOrdered By: Teddy Saldana on 08-14-2024 Natriuretic peptide B (Bld) [Mass/Vol] 3934 pg/mL High <1800 [facility] Comment on above: Heart Failure Unlike ly: < 300 pg/mLHeart Failure Likely< 50 Years: > 450 pg/mL50-75 Years: > 900 pg/mL>75 Years: > 1800 pg/mL Lipid Profileon 08-14-2024 CHOL:HDL 1.85 Normal [facility] Comment on above: Performed By: #### L 500.4050, L500.4100, L100.0100, L501.9520 ####[facility] [address] [place], [address] Cholesterol [Mass/Vol] 183 mg/dL Normal <=200 [facility] Comment on above: Result Comment: Chol esterol level, Desirable <200 mg/dLBorderline high cholesterol 200-239 mg/dLHigh cholesterol >=240 mg/dLRecommendations of the NCEP Adult Treatment Panel for thefollowing risk-cutoff thresholds for the [place] Americanpulation. Performed By: #### L 500.4050, L500.4100, L100.0100, L501.9520 ####[facility] [address] [place], [address] Cholesterol in HDL [Mass/Vol] 99 mg/dL Normal [facility] Comment on above: Result Comment: Mi onal Cholesterol Education Program (NCEP) guidelines:<40 mg/dL: Low HDL-cholesterol (major risk factor for CHD)>= 60 mg/dL: High HDL-cholesterol (negative risk factor forCHD)HDL-cholesterol is affected by a number of factors, e.g.smoking, exercise, hormones, sex and age. Performed By: #### L 500.4050, L500.4100, L100.0100, L501.9520 ####[facility] [address] [place], [address] Cholesterol in LDL [Mass/Vol] 77 mg/dL Normal [facility] Comment on above: Result Comment: Bord rdqmhf=738-693 mg/dL Higher Sddz=973 mg/dL or greater Performed By: #### L 500.4050, L500.4100, L100.0100, L501.9520 ####[facility] [address] [place], [address] Cholesterol in VLDL [Mass/Vol] 8 mg/dL Normal 5-40 [facility] Comment on above: Performed By: #### L 500.4050, L500.4100, L100.0100, L501.9520 ####[facility] [address] [place], [address] Triglyceride [Mass/Vol] 38 mg/dL Normal [facility] Comment on above: Result Comment: The drugs N-Acetylcysteine and Metamizole may falselydepress this assay.Normal range: <150 mg/dLBorderline High: 150-199 mg/dLHigh: 200-499 mg/dLVery High: >500 mg/dL Performed By: #### L 500.4050, L500.4100, L100.0100, L501.9520 ####[facility] [address] [place], [place], [address] Lung Scan Vent/Perfon 2024 Lung Scan Vent/Perf Normal [facility] Microorganism identified Cx Nom (Unsp spec)Ordered By: Ibeth Parker on 08-14-2024 Respiratory Culture Streptococcus agalactiae (B) Abnormal [facility] Modified Barium Swallow Stud yon 08-14-2024 Modified Barium Swallow Study Normal [facility] No Panel InformationOrdered By: Teddy Saldana on 08-14-2024 Procalcitonin 0.39 ng/mL High <0.11 [facility] Comment on above: Interpretation:<0.10 -0.25 ng/mL: Antibiotic [...] (Bld) [Time] s Invalid Interpretation Code 24.1-36.2 [facility] Comment on above: Result Comment: CRIT ICAL VALUE CALLED TO GARO08/14/24 1349 Latha Araujo.RESULTS READ BACK BY . Performed By: #### L 300.4310 ####[facility] [address] [place], [place], [id number] aPTT Coag (Bld) [Time] s Invalid Interpretation Code 24.1-36.2 [facility] Comment on above: Result Comment: CRIT ICAL VALUE CALLED TO UZINXJTXC96/07/25 0347 Ryne Alfonso Lange.RESULTS READ BACK BY SAME. Performed By: #### L 300.4310 ####[facility] [address] [place], [place], [id number] RESPIRATORY PANEL MOLECULARo n 08-14-2024 RP PANEL Normal [facility] Comment on above: Performed By: #### M 100.638 ####[facility] [address] [place], [place], [address] Screening total cholesterol/ high density lipoprotein (HDL) cholesterol ratioOrdered By: Ibeth Parker on 08-14-2024 Cholesterol.total/Brittany sterol in HDL [Mass ratio] 1.85 {ratio} [facility] Serum or plasma cholesterol in HDL measurement (mass/volume)Ordered By: Ibeth Parker on 08-14-2024 Cholesterol in HDL [Mass/Vol] 99 mg/dL >40 [facility] Comment on above: National Cholesterol Education Program (NCEP) guidelines:<40 mg/dL: Low HDL-cholesterol (major risk factor for CHD)>= 60 mg/dL: High HDL-cholesterol (negative risk factor for CHD)HDL-cholesterol is affected by a number of factors, e.g. smoking, exercise, hormones, sex and age. Serum or plasma cholesterol measurement (mass/volume)Ordered By: Ibeth Parker on 08-14-2024 Cholesterol [Mass/Vol] 183 mg/dL <201 [facility] Comment on above: Cholesterol level, D esirable <200 mg/dLBorderline high cholesterol 200-239 mg/dLHigh cholesterol >=240 mg/dLRecommendations of the NCEP Adult Treatment Panel for the following risk-cutoff thresholds for the [place] population. TSH DL <= 0.005 mIU/L QnOrde red By: Ibeth Parker on 08-14-2024 Thyroid Stimulating Hormone (TSH) 1.240 uIU/mL 0.300-4.200 [facility] Thyroid Stim Hormone (TSH)on 08-14-2024 TSH 1.240 uIU/mL Normal 0.300-4.200 [facility] Comment on above: Performed By: #### L 500.4050, L500.4100, L100.0100, L501.9520 ####[facility] [address] [place], [address] Triglycerides measurementOrd ered By: Ibeth Parker on 08-14-2024 Triglyceride [Mass/Vol] 38 mg/dL <199 [facility] Comment on above: The drugs N-Acetylcy steine and Metamizole may falsely depress this assay. Normal range: <150 mg/dLBorderline High: 150-199 mg/dLHigh: 200-499 mg/dLVery High: >500 mg/dL Venous Duplex US - Ambrose Extre mon 08-14-2024 Venous Duplex US - Ambrose Extrem Normal [facility] aPTT Coag (PPP) [Time]Ordere d By: Ibeth Parker on 08-14-2024 aPTT Coag (Bld) [Time] s High 24.1-36.2 [facility] Comment on above: CRITICAL VALUE PANIAGUA D TO GARO08/14/24 1349 Latha Araujo.RESULTS READ BACK BY . Absolute neutrophil countOrd ered By: Segundo Juarez on 08-13-2024 Neutrophils (Bld) [#/Vol] 13.6 10*3/uL High 2.0-7.7 [facility] Anion gap in Serum or Plasma Ordered By: Segundo Juarez on 08-13-2024 Anion gap [Moles/Vol] 17 mmol/L High 5-15 [facility] Arterial patency Wrist arter y --pre arterial punctureOrdered By: Segundo Juarez on 08-13-2024 Tera Test Positive [facility] BUN/creatinine ratioOrdered By: Segundo Juarez on 08-13-2024 Urea nitrogen/Creatinine [Mass ratio] 19.5 mg/mg 10-20 [facility] Base excess Calc (BldV) [Mol es/Vol]Ordered By: Segundo Juarez on 08-13-2024 Blood Gas Base Excess -1 mmol/L -2-2 [facility] Basophil percentageOrdered B y: Segundo Larry on 08-13-2024 Basophils/100 WBC (Bld) 0.1 % 0-1 [facility] Bilirubin Test strip Ql (U)O rdered By: Segundo Juarez on 08-13-2024 Bilirubin Ql (U) Negative Negative [facility] Bilirubin, totalOrdered By: Segundo Juarez on 08-13-2024 Bilirubin [Mass/Vol] 0.27 mg/dL 0.00-1.30 [facility] Blood Gases by CPSon 025 TERA TEST Positive Normal [facility] Comment on above: Performed By: #### L 9000.0800 ####[facility] [address] [place], [address] Base excess Calc (Bld) [Moles/Vol] -1 mmol/L Normal -2 to +2 [facility] Comment on above: Performed By: #### L 9000.0800 ####[facility] [address] [place], [address] Blood Gas Type ART Normal [facility] Comment on above: Performed By: #### L 9000.0800 ####[facility] [address] [place], [address] CO2 [Moles/Vol] 27 mmol/L Normal [facility] Comment on above: Performed By: #### L 9000.0800 ####[facility] [address] [place], [address] FI02 70.0 Normal [facility] Comment on above: Performed By: #### L 9000.0800 ####[facility] [address] [place], [address] HCO3 (Bld) [Moles/Vol] 25.7 mmol/L Normal 22-26 [facility] Comment on above: Performed By: #### L 9000.0800 ####[facility] [address] [place], [address] Mode Not entered Normal [facility] Comment on above: Performed By: #### L 9000.0800 ####[facility] [address] [place], [address] O2 Delivery Dev BiPAP Normal [facility] Comment on above: Performed By: #### L 0.0800 ####[facility] [address] [place], [address] pCO2 50.4 mmHg High 35-45 [facility] Comment on above: Performed By: #### L 0.0800 ####[facility] [address] [place], [address] PEEP 9 Normal [facility] Comment on above: Performed By: #### L 0.0800 ####[facility] [address] [place], [address] pH (Bld) 7.32 [pH] Low 7.35-7.45 [facility] Comment on above: Performed By: #### L 0.0800 ####[facility] [address] [place], [address] PO2 98 mmHG Normal 75-100 [facility] Comment on above: Performed By: #### L 0.0800 ####[facility] [address] [place], [address] SITE L Radial Normal [facility] Comment on above: Performed By: #### L 9000.0800 ####[facility] [address] [place], [address] SO2 97 Normal 95-99 [facility] Comment on above: Performed By: #### L 0.0800 ####[facility] [address] [place], [address] Blood bicarbonate measuremen tOrdered By: Segundo Juarez on 08-13-2024 Blood Gas Bicarbonate Actual 25.7 mmol/L [facility] CBC W/Diff, Automatedon Absolute Lymph 0.54 X10 3/uL Low 0.83-4.51 [facility] Comment on above: Performed By: #### L 500.4050, L100.0100, M200.1000, L300.3900, L503.6005, L300.4310 ####[facility] [address] [place], [address] Absolute Neut 13.6 X10 3/uL High 2.0-7.7 [facility] Comment on above: Performed By: #### L 500.4050, L100.0100, M200.1000, L300.3900, L503.6005, L300.4310 ####[facility] [address] [place], [address] Basophils/100 WBC (Bld) 0.1 % Normal 0-1 [facility] Comment on above: Performed By: #### L 500.4050, L100.0100, M200.1000, L300.3900, L503.6005, L300.4310 ####[facility] [address] [place], [address] Eosinophils/100 WBC (Bld) 0.0 % Normal 0-5 [facility] Comment on above: Performed By: #### L 500.4050, L100.0100, M200.1000, L300.3900, L503.6005, L300.4310 ####[facility] [address] [place], [address] Erythrocyte distribution width (RBC) [Ratio] 15.8 % High 11.6-14.6 [facility] Comment on above: Performed By: #### L 500.4050, L100.0100, M200.1000, L300.3900, L503.6005, L300.4310 ####[facility] [address] [place], [address] Hematocrit (Bld) [Volume fraction] 36.2 % Low 37-47 [facility] Comment on above: Performed By: #### L 500.4050, L100.0100, M200.1000, L300.3900, L503.6005, L300.4310 ####[facility] [address] [place], [address] Hemoglobin (Bld) [Mass/Vol] 11.9 g/dL Low 12.0-15.0 [facility] Comment on above: Performed By: #### L 500.4050, L100.0100, M200.1000, L300.3900, L503.6005, L300.4310 ####[facility] [address] [place], [address] IG% 0.300 Normal 0.0-0.9 [facility] Comment on above: Result Comment: IG% - Immature Granulocytes (promyelocytes, myelocytes andmetamyelocytes) > 1% indicates that a LEFT SHIFT is Present. Performed By: #### L 500.4050, L100.0100, M200.1000, L300.3900, L503.6005, L300.4310 ####[facility] [address] [place], [address] Lymphocytes/100 WBC (Bld) 3.6 % Low 19-41 [facility] Comment on above: Performed By: #### L 500.4050, L100.0100, M200.1000, L300.3900, L503.6005, L300.4310 ####[facility] [address] [place], [address] MCH (RBC) [Entitic mass] 32.2 pg High 27.0-32.0 [facility] Comment on above: Performed By: #### L 500.4050, L100.0100, M200.1000, L300.3900, L503.6005, L300.4310 ####[facility] [address] [place], [address] MCHC (RBC) [Mass/Vol] 32.9 g/dL Normal 32-36 [facility] Comment on above: Performed By: #### L 500.4050, L100.0100, M200.1000, L300.3900, L503.6005, L300.4310 ####[facility] [address] [place], [address] MCV (RBC) [Entitic vol] 97.8 fL Normal 81-99 [facility] Comment on above: Performed By: #### L 500.4050, L100.0100, M200.1000, L300.3900, L503.6005, L300.4310 ####[facility] [address] [place], [address] Monocytes/100 WBC (Bld) 5.2 % Normal 0-10 [facility] Comment on above: Performed By: #### L 500.4050, L100.0100, M200.1000, L300.3900, L503.6005, L300.4310 ####[facility] [address] [place], [address] Neutrophils/100 WBC (Bld) 90.8 % High 47-70 [facility] Comment on above: Performed By: #### L 500.4050, L100.0100, M200.1000, L300.3900, L503.6005, L300.4310 ####[facility] [address] [place], [address] Nucleated RBC (Bld) [#/Vol] 0.1 10*3/uL Normal 0-5 [facility] Comment on above: Performed By: #### L 500.4050, L100.0100, M200.1000, L300.3900, L503.6005, L300.4310 ####[facility] [address] [place], [address] Platelet mean volume (Bld) [Entitic vol] 10.5 fL Normal 6.2-12.0 [facility] Comment on above: Performed By: #### L 500.4050, L100.0100, M200.1000, L300.3900, L503.6005, L300.4310 ####[facility] [address] [place], [address] Platelets (Bld) [#/Vol] 188 10*3/uL Normal 150-450 [facility] Comment on above: Performed By: #### L 500.4050, L100.0100, M200.1000, L300.3900, L503.6005, L300.4310 ####[facility] [address] [place], [address] RBC (Bld) [#/Vol] 3.70 10*6/uL Low 4.2-5.4 [facility] Comment on above: Performed By: #### L 500.4050, L100.0100, M200.1000, L300.3900, L503.6005, L300.4310 ####[facility] [address] [place], [address] RDW SD 56.1 fl High 35.1-43.9 [facility] Comment on above: Performed By: #### L 500.4050, L100.0100, M200.1000, L300.3900, L503.6005, L300.4310 ####[facility] [address] [place], [address] WBC (Bld) [#/Vol] 15.0 10*3/uL High 4.4-11.0 [facility] Comment on above: Performed By: #### L 500.4050, L100.0100, M200.1000, L300.3900, L503.6005, L300.4310 ####[facility] [address] [place], [address] Carbon dioxide, total [Moles /volume] in Central venous bloodOrdered By: Segundo Juarez on 08-13-2024 CO2 [Moles/Vol] 23.7 mmol/L 21.0-32.0 [facility] Chest PA and Lateralon 08-13 Chest PA and Lateral Normal [facility] Chloride assayOrdered By: Hakeem Juarez on 08-13-2024 Chloride [Moles/Vol] 98 mmol/L 98-108 [facility] Comprehensive Metabolic Prof ilon 08-13-2024 Albumin [Mass/Vol] 3.9 g/dL Normal 3.4-4.[address] [facility] Comment on above: Performed By: #### L 500.4050, L100.0100, M200.1000, L300.3900, L503.6005, L300.4310 ####[facility] [address] [place], [address] Albumin/Globulin [Mass ratio] 1.1 {ratio} Normal 0.9-2.4 [facility] Comment on above: Performed By: #### L 500.4050, L100.0100, M200.1000, L300.3900, L503.6005, L300.4310 ####[facility] [address] [place], [address] ALK PHOS 130 U/L High 35-104 [facility] Comment on above: Performed By: #### L 500.4050, L100.0100, M200.1000, L300.3900, L503.6005, L300.4310 ####[facility] [address] [place], [address] ALT [Catalytic activity/Vol] 17 U/L Normal <=34 [facility] Comment on above: Performed By: #### L 500.4050, L100.0100, M200.1000, L300.3900, L503.6005, L300.4310 ####[facility] [address] [place], [address] AST [Catalytic activity/Vol] 27 U/L Normal <=31 [facility] Comment on above: Performed By: #### L 500.4050, L100.0100, M200.1000, L300.3900, L503.6005, L300.4310 ####[facility] [address] [place], [address] Bilirubin [Mass/Vol] 0.27 mg/dL Normal 0.00-1.30 [facility] Comment on above: Performed By: #### L 500.4050, L100.0100, M200.1000, L300.3900, L503.6005, L300.4310 ####[facility] [address] [place], [address] BUN/CRE 19.5 RATIO Normal 10-20 [facility] Comment on above: Performed By: #### L 500.4050, L100.0100, M200.1000, L300.3900, L503.6005, L300.4310 ####[facility] [address] [place], [address] Calcium [Mass/Vol] 9.2 mg/dL Normal 7.6-11.[address] [facility] Comment on above: Performed By: #### L 500.4050, L100.0100, M200.1000, L300.3900, L503.6005, L300.4310 ####[facility] [address] [place], [address] Chloride [Moles/Vol] 98 mmol/L Normal 98-108 [facility] Comment on above: Performed By: #### L 500.4050, L100.0100, M200.1000, L300.3900, L503.6005, L300.4310 ####[facility] [address] [place], [address] CO2 [Moles/Vol] 23.7 mmol/L Normal 21.0-32.0 [facility] Comment on above: Performed By: #### L 500.4050, L100.0100, M200.1000, L300.3900, L503.6005, L300.4310 ####[facility] [address] [place], [address] Creatinine [Mass/Vol] 1.48 mg/dL High 0.70-1.20 [facility] Comment on above: Performed By: #### L 500.4050, L100.0100, M200.1000, L300.3900, L503.6005, L300.4310 ####[facility] [address] [place], [place], [phone]) ECRCL 45.10 ml/min Low 50-250 [facility] Comment on above: Performed By: #### L 500.4050, L100.0100, M200.1000, L300.3900, L503.6005, L300.4310 ####[facility] [address] [place], [address] GAP 17 High 5-15 [facility] Comment on above: Performed By: #### L 500.4050, L100.0100, M200.1000, L300.3900, L503.6005, L300.4310 ####[facility] [address] [place], [address] GFR/1.73 sq M.predicted among non-blacks MDRD (S/P/Bld) [Vol rate/Area] 37 mL/min/{1.73_m2} Low >60 [facility] Comment on above: Result Comment: mL/m in/1.73m2 CKD-EPI Creatinine Equation (2020) Performed By: #### L 500.4050, L100.0100, M200.1000, L300.3900, L503.6005, L300.4310 ####[facility] [address] [place], [address] Globulin (S) [Mass/Vol] 3.5 g/dL Normal 2.2-4.2 [facility] Comment on above: Performed By: #### L 500.4050, L100.0100, M200.1000, L300.3900, L503.6005, L300.4310 ####[facility] [address] [place], [address] Glucose [Mass/Vol] 149 mg/dL High 70-[address] [facility] Comment on above: Performed By: #### L 500.4050, L100.0100, M200.1000, L300.3900, L503.6005, L300.4310 ####[facility] [address] [place], [address] Potassium [Moles/Vol] 4.3 mmol/L Normal 3.3-5.1 [facility] Comment on above: Performed By: #### L 500.4050, L100.0100, M200.1000, L300.3900, L503.6005, L300.4310 ####[facility] [address] [place], [address] Sodium [Moles/Vol] 138 mmol/L Normal 133-[address] [facility] Comment on above: Performed By: #### L 500.4050, L100.0100, M200.1000, L300.3900, L503.6005, L300.4310 ####[facility] [address] [place], [place], [id number] T PROT 7.4 g/dL Normal 5.9-8.4 [facility] Comment on above: Performed By: #### L 500.4050, L100.0100, M200.1000, L300.3900, L503.6005, L300.4310 ####[facility] [address] [place], [address] Urea nitrogen [Mass/Vol] 29 mg/dL High 4-19 [facility] Comment on above: Performed By: #### L 500.4050, L100.0100, M200.1000, L300.3900, L503.6005, L300.4310 ####[facility] [address] [place], [place], [id number] Consultation - Intensiviston 08-13-2024 Consultation - Game Advisor Normal [facility] D-Dimer Quantitative (DVT/PE )on 08-13-2024 D-DIMER QUANT 1.43 FEU/ug/m Invalid Interpretation Code 0.27-0.49 [facility] Comment on above: Result Comment: CRIT ICAL VALUE CALLED TO ESTRELLA LITTLEJOHN RN ICU08/13/24 2334 Benito He.RESULTS READ BACK BY SAME .D-Dimer ELEVATED (>0.49): Additional studies and clinicalassessments are indicated to conclude diagnosis of:Deep Vein Thrombosis (DVT) or Pulmonary Embolism (PE) Performed By: #### L 300.8000 ####[facility] [address] [place], [place], [id number] D-dimer measurement for deep venous thrombosisOrdered By: Paresh Brunson on 08-13-2024 D-Dimer Quantitative (PE/DVT) 1.43 FEU/ug/m High 0.27-0.49 [facility] Comment on above: CRITICAL VALUE PANIAGUA D TO ESTRELLA LITTLEJOHN RN ICU08/13/24 2334 Benito He.RESULTS READ BACK BY SAME . D-Dimer ELEVATED (>0.49): Additional studies and clinicalassessments are indicated to conclude diagnosis of:Deep Vein Thrombosis (DVT) or Pulmonary Embolism (PE) Determination of fraction of inspired oxygenOrdered By: Segundo Juarez on 08-13-2024 Blood Gas Oxygen Percent 70.0 [facility] Echo Complete W/ Contraston 08-13-2024 Echo Complete W/ Contrast Normal [facility] Emergency Department Summary on 08-13-2024 Emergency Department Summary Normal [facility] Eosinophil percentageOrdered By: Segundo Juarez on 08-13-2024 Eosinophils/100 WBC (Bld) 0.0 % 0-5 [facility] Epithelial cells.squamous LM Ql (Urine sed)Ordered By: Segundo Juarez on 08-13-2024 Epithelial cells.squamous LM.HPF (Urine sed) [#/Area] 0 /[HPF] 5-10 [facility] Erythrocyte distribution wid th ratioOrdered By: Segundo Juarez on 08-13-2024 Erythrocyte distribution width (RBC) [Ratio] 15.8 % High 11.6-14.6 [facility] Erythrocyte distribution wid th standard deviationOrdered By: Segundo Juarez on 08-13-2024 Erythrocyte distribution width (RBC) [Entitic vol] 56.1 fL High 35.1-43.9 [facility] Estimation of creatinine alina aranceOrdered By: Segundo Juarez on 08-13-2024 Estimated Creatinine Clearance Calc 45.10 ml/min Low 50-250 [facility] GFR/1.73 sq M.predicted millie g non-blacks MDRD (S/P/Bld) [Vol rate/Area]Ordered By: Segundo Juarez on 08-13-2024 Estimated GFR (MDRD) Non-Af Amer 37 Low >60 [facility] Comment on above: mL/min/1.73m2 CKD-EP I Creatinine Equation (2020) Glucose Ql (U)Ordered By: Hakeem Juarez on 08-13-2024 Urine Glucose (UA) Normal mg/dl Normal [facility] H AND P Exam - Hospitaliston 08-13-2024 H&P Exam - Hospitalist Normal [facility] Hematocrit Auto (Bld) [Volum e fraction]Ordered By: Segundo Juarez on 08-13-2024 Hematocrit (Bld) [Volume fraction] 36.2 % Low 37-47 [facility] Hemoglobin measurementOrdere d By: Segundo Juarez on 08-13-2024 Hemoglobin (Bld) [Mass/Vol] 11.9 g/dL Low 12.0-15.0 [facility] Immature granulocytes/100 WB C Auto (Bld)Ordered By: Segundo Juarez on 08-13-2024 Immature granulocytes/100 WBC (Bld) 0.300 % 0.0-0.9 [facility] Comment on above: IG% - Immature Granu locytes (promyelocytes, myelocytes and metamyelocytes) > 1% indicates that a LEFT SHIFT is Present. Influenza virus A and B and SARS-CoV-2 (COVID-19) and Respiratory syncytial virus RNAOrdered By: Ibeth Parker on 08-13-2024 SARS-CoV-2 (COVID-19) RNA SINAN+probe Ql (Unsp spec) [facility] International normalized rat io (INR) calculationOrdered By: Segundo Juarez on 08-13-2024 INR Coag (Bld) [Relative time] 1.1 {INR} [facility] Ketones Test strip Ql (U)Ord ered By: Segundo Juarez on 08-13-2024 Ketones Ql (U) Negative Negative [facility] L. pneumophila Ag Ql (U)Orde red By: Ibeth Parker on 08-13-[address] [facility] L499.0042on 08-13-2024 Trop T High Sen 427 ng/L Invalid Interpretation Code <=14 [facility] Comment on above: Result Comment: Crit ical Result(s) Called ELINA at: 1945 by:AVIS??Results read back by same. Performed By: #### L 499.0042 ####[facility] [address] [place], [place], [address] L499.0043on 08-13-2024 Trop T High Sen 467 ng/L Invalid Interpretation Code <=14 [facility] Comment on above: Result Comment: Crit ical Result(s) Called ESTRELLA LITTLEJOHN at: 2252 by:AVIS??Results read back by same. Performed By: #### L 499.0043 ####[facility] [address] [place], [address] L501.4021on 08-13-2024 Trop T High Sen 317 ng/L Invalid Interpretation Code <=14 [facility] Comment on above: Result Comment: Crit ical Result(s) Called at 08/13/2024-16:36 by Eliezer Littlejohn??Results read back by same. Performed By: #### L 501.4021 ####[facility] [address] [place], [address] L503.7505on 08-13-2024 Natriuretic peptide B (Bld) [Mass/Vol] 3099 pg/mL High <=1800 [facility] Comment on above: Result Comment: Hear t Failure Unlikely: < 300 pg/mLHeart Failure Likely< 50 Years: > 450 pg/mL50-75 Years: > 900 pg/mL>75 Years: > 1800 pg/mL Performed By: #### L 535.6408 ####[facility] [address] [place], [place], [address] Laboratory - Chemistry and C hemistry - challengeOrdered By: Segundo Juarez on 08-13-2024 AST [Catalytic activity/Vol] 27 U/L <32 [facility] Natriuretic peptide B (Bld) [Mass/Vol] 3099 pg/mL High <1800 [facility] Comment on above: Heart Failure Unlike ly: < 300 pg/mLHeart Failure Likely< 50 Years: > 450 pg/mL50-75 Years: > 900 pg/mL>75 Years: > 1800 pg/mL Lactic Acidon 08-13-2024 Lactate [Moles/Vol] 1.8 mmol/L Normal 0.0-2.0 [facility] Comment on above: Order Comment: Y Performed By: #### L 503.6007 ####[facility] [address] [place], [place], [address] Lactate [Moles/Vol] 3.1 mmol/L Invalid Interpretation Code 0.0-2.0 [facility] Comment on above: Order Comment: Y Result Comment: Crit ical Result(s) Called at 08/13/2024-16:37 by Eliezer Littlejohn??Results read back by same. Performed By: #### L 500.4050, L100.0100, M200.1000, L300.3900, L503.6005, L300.4310 ####[facility] [address] [place], [address] Lactic acid measurementOrder ed By: Paresh Brunson on 08-13-2024 Lactate [Moles/Vol] 1.8 mmol/L 0.0-2.0 [facility] Lactic acid measurementOrder ed By: Segundo Juarez on 08-13-2024 Lactate [Moles/Vol] 3.1 mmol/L High 0.0-2.0 [facility] Comment on above: Critical Result(s) C alled at 08/13/2024-16:37 by Eliezer Littlejohn Results read back by same. Legionella Antigen Urineon 0 08-13-2024 LEGU Normal [facility] Comment on above: Performed By: #### M 300.4500, M300.4600 ####[facility] [address] [place], [place], [phone] Lymphocytes Auto (Unsp spec) [#/Vol]Ordered By: Segundo Juarez on 08-13-2024 Lymphocytes (Bld) [#/Vol] 0.54 10*3/uL Low 0.83-4.51 [facility] Lymphocytes/100 WBC Auto (Un sp spec)Ordered By: Segundo Juarez on 08-13-2024 Lymphocytes/100 WBC (Bld) 3.6 % Low 19-41 [facility] M100.678on 08-13-2024 M100.678 Pending SARS-CoV-2 (COVID 19) Negative INFLUENZA A Negative INFLUENZA B Negative RSV PCR Negative Normal [facility] Comment on above: Performed By: #### M 100.678 ####[facility] [address] [place], [address] M8200.1000on 08-13-2024 M8200.1000 Normal Reference Ran ge = Negative MRSA DNA Nose Ql SINAN+probe GeneXpert Instrument, PCR method MRSA PCR MRSA NEGATIVE Normal [facility] Comment on above: Performed By: #### M 8200.1000 ####[facility] [address] [place], [address] MCV (mean corpuscular volume ) determinationOrdered By: Segundo Juarez on 08-13-2024 MCV (RBC) [Entitic vol] 97.8 fL 81-99 [facility] MRSA DNA SINAN+probe Ql (Nose) Ordered By: Ibeth Parker on 08-13-2024 MRSA (PCR) [facility] Magnesiumon 08-13-2024 Magnesium [Mass/Vol] 1.7 mg/dL Normal 1.5-2.2 [facility] Comment on above: Order Comment: Comme nts: May add to ED labsComments: may add to ED labs Performed By: #### L 501.2300, L501.5200 ####[facility] [address], [address] Mean corpuscular hemoglobin (MCH) determinationOrdered By: Segundo Juarez on 08-13-2024 MCH (RBC) [Entitic mass] 32.2 pg High 27.0-32.0 [facility] Mean corpuscular hemoglobin concentration (MCHC) determinationOrdered By: Segundo Juarez on 08-13-2024 MCHC (RBC) [Mass/Vol] 32.9 g/dL 32-36 [facility] Mean platelet volume determi nationOrdered By: Segundo Juarez on 08-13-2024 Platelet mean volume (Bld) [Entitic vol] 10.5 fL 6.2-12.0 [facility] Microscopic analysis of urin e for red blood cells (RBC)Ordered By: Segundo Juarez on 08-13-2024 Urine RBC 0-5 SEEN /hpf 0-5 [facility] Monocyte percentageOrdered B y: Segundo Juarez on 08-13-2024 Monocytes/100 WBC (Bld) 5.2 % 0-10 [facility] Mucus LM Ql (Urine sed)Order ed By: Segundo Juarez on 08-13-2024 Mucus Ql (Urine sed) 0 SEEN /hpf [facility] Neutrophil percentageOrdered By: Segundo Juarez on 08-13-2024 Neutrophils/100 WBC (Bld) 90.8 % High 47-70 [facility] Nitrite Test strip Ql (U)Ord ered By: Segundo Juarez on 08-13-2024 Nitrite Ql (U) Negative Negative [facility] No Panel InformationOrdered By: Segundo Juarez on 08-13-2024 Bedside Blood Gas PEEP 9 [facility] Blood Gas Sample Site L Radial [facility] Blood Gas Specimen Type ART [facility] Blood Gas Vent Mode Not entered [facility] Oxygen Delivery Device BiPAP [facility] Troponin T High Sensitivity 317 ng/L High <14 [facility] Comment on above: Critical Result(s) C alled at 08/13/2024-16:36 by Eliezer Parker to Geena Littlejohn Results read back by same. Nucleated red blood cell per centageOrdered By: Segundo Juarez on 08-13-2024 Nucleated RBC/100 WBC (Bld) [Ratio] 0.1 % 0-5 [facility] Oxygen saturation measuremen tOrdered By: Segundo Juarez on 08-13-2024 Blood Gas Oxygen Saturation 97 % 95-99 [facility] Partial Thromboplast Timeon 08-13-2024 aPTT Coag (Bld) [Time] 40.2 s High 24.1-36.2 [facility] Comment on above: Performed By: #### L 500.4050, L100.0100, M200.1000, L300.3900, L503.6005, L300.4310 ####[facility] [address] [place], [place], [id number] Partial pressure of carbon d ioxide measurementOrdered By: Segundo Juarez on 08-13-2024 Arterial Blood Partial Pressure CO2 50.4 mmHg High 35-45 [facility] Partial pressure of oxygen m easurementOrdered By: Segundo Juarez on 08-13-2024 Arterial Blood Partial Pressure O2 98 mmHG 75-100 [facility] Phosphoruson 08-13-2024 Phosphate [Mass/Vol] 3.3 mg/dL Normal 2.7-4.5 [facility] Comment on above: Order Comment: Comme nts: May add to ED labsComments: may add to ED labs Performed By: #### L 501.2300, L501.5200 ####[facility] [address] [place], [address] Platelet countOrdered By: Hakeem Juarez on 08-13-2024 Platelets (Bld) [#/Vol] 188 10*3/uL 150-450 [facility] Potassium (Unsp spec) [Mass/ Vol]Ordered By: Segundo Juarez on 08-13-2024 Potassium [Moles/Vol] 4.3 mmol/L 3.3-5.1 [facility] Protein Test strip Ql (U)Ord ered By: Segundo Juarez on 08-13-2024 Protein Ql (U) 30 mg/dl High Negative [facility] Prothrombin Time w/INRon INR Normal [facility] Comment on above: Result Comment: [facility]ITALFabricio MADALYNYOKO LOPEZ CRISTELAMARIE RAN PT/PTT UNDER CG48 Performed By: #### L 300.3900 ####[facility] [address] [place], [address] PROTIME Normal 11.7-14.9 [facility] Comment on above: Result Comment: OLE WONG RAN PT/PTT UNDER CG48 Performed By: #### L 300.3900 ####[facility] [address] [place], [address] INR Coag (PPP) [Relative time] 1.1 {INR} Normal [facility] Comment on above: Performed By: #### L 500.4050, L100.0100, M200.1000, L300.3900, L503.6005, L300.4310 ####[facility] [address] [place], [address] PT Coag (PPP) [Time] 14.8 s Normal 11.7-14.9 [facility] Comment on above: Performed By: #### L 500.4050, L100.0100, M200.1000, L300.3900, L503.6005, L300.4310 ####[facility] [address] [place], [address] Prothrombin timeOrdered By: Segundo Juarez on 08-13-2024 PT Coag (PPP) [Time] 14.8 s 11.7-14.9 [facility] RBC Auto (Bld) [#/Vol]Ordere d By: Segundo Juarez on 08-13-2024 RBC (Bld) [#/Vol] 3.70 10*6/uL Low 4.2-5.4 [facility] Respiratory pathogens DNA an d RNA panel SINAN+probe (Resp)Ordered By: Ibeth Parker on 08-13-2024 Respiratory Panel (PCR) [facility] Serum creatinine measurement (mass/volume)Ordered By: Segundo Juarez on 08-13-2024 Creatinine [Mass/Vol] 1.48 mg/dL High 0.70-1.20 [facility] Serum globulin measurementOr dered By: Segundo Juarez on 08-13-2024 Globulin (S) [Mass/Vol] 3.5 g/dL 2.2-4.2 [facility] Serum glucose measurement (m ass/volume)Ordered By: Segundo Juarez on 08-13-2024 Glucose [Mass/Vol] 149 mg/dL High 70-[address] [facility] Serum or plasma alanine barrientos otransferase (ALT) measurementOrdered By: Segundo Juarez on 08-13-2024 ALT [Catalytic activity/Vol] 17 U/L <35 [facility] Serum or plasma albumin jerod urement (mass/volume)Ordered By: Segundo Juarez on 08-13-2024 Albumin [Mass/Vol] 3.9 g/dL 3.4-4.[address] [facility] Serum or plasma albumin/glob ulin mass ratioOrdered By: Segundo Juarez on 08-13-2024 Albumin/Globulin [Mass ratio] 1.1 {ratio} 0.9-2.4 [facility] Serum or plasma alkaline mingo sphatase measurementOrdered By: Segundo Juaerz on 08-13-2024 ALP [Catalytic activity/Vol] 130 U/L High 35-104 [facility] Serum or plasma calcium jerod urement (mass/volume)Ordered By: Segundo Juarez on 08-13-2024 Calcium [Mass/Vol] 9.2 mg/dL 7.6-11.[address] [facility] Serum or plasma urea nitroge n measurement (mass/volume)Ordered By: Segundo Juarez on 08-13-2024 Urea nitrogen [Mass/Vol] 29 mg/dL High 4-19 [facility] Sodium levelOrdered By: Ward Juarez on 08-13-2024 Sodium [Moles/Vol] 138 mmol/L 133-[address] [facility] Strep pneumoniae Antig(UR,CS F)on 08-13-2024 STPAG Normal [facility] Comment on above: Performed By: #### M 300.4500, M300.4600 ####[facility] [address] [place], [address] Streptococcus pneumoniae ant igen assayOrdered By: Ibeth Parker on 08-13-2024 Streptococcus pneumoniae Antigen (M [facility] Total carbon dioxide measure mentOrdered By: Segundo Juarez on 08-13-2024 Blood Gas Total CO2 27 mmol/L [facility] Total proteinOrdered By: Chase Juarez on 08-13-2024 Protein [Mass/Vol] 7.4 g/dL 5.9-8.[address] [facility] Troponin T.cardiac High sens itivity method [Mass/Vol]Ordered By: Ibeth Parker on 08-13-2024 Troponin T High Sensitivity 4 Hour 467 ng/L High <14 [facility] Comment on above: Critical Result(s) C leslie LITTLEJOHN at: 2252 by: AVIS Results read back by same. Troponin T.cardiac High sens itivity method [Mass/Vol]Ordered By: Segundo Juarez on 08-13-2024 Troponin T High Sensitivity 2 Hour 427 ng/L High <14 [facility] Comment on above: Critical Result(s) C leslie ANTOINE at: 1945 by: AVIS Results read back by same. Urinalysis, Completeon 08-13 BACTERIA 3+ /hpf Normal None Seen [facility] Comment on above: Order Comment: MEGHANA TER SPECIMEN Performed By: #### L 400.0001, M100.2200 ####[facility] [address] [place], [address] EPI,SQUAMOUS 0-5 SEEN Normal 5-10 [facility] Comment on above: Order Comment: MEGHANA TER SPECIMEN Performed By: #### L 400.0001, M100.2200 ####[facility] [address] [place], [address] RBC 0-5 SEEN Normal 0-5 [facility] Comment on above: Order Comment: MEGHANA TER SPECIMEN Performed By: #### L 400.0001, M100.2200 ####[facility] [address] [place], [address] WBC 50-100 SEEN Normal 0-5 [facility] Comment on above: Order Comment: MEGHANA TER SPECIMEN Performed By: #### L 400.0001, M100.2200 ####[facility] [address] [place], [address] Mucus Ql (Urine sed) 0 SEEN Normal [facility] Comment on above: Order Comment: MEGHANA TER SPECIMEN Performed By: #### L 400.0001, M100.2200 ####[facility] [address] [place], [address] Urine blood detectionOrdered By: Segundo Juarez on 08-13-2024 Urine Occult Blood 50 /ul High Negative [facility] Urine clarityOrdered By: Chase Juarez on 08-13-2024 Clarity (U) Sl. Cloudy Clear [facility] Urine color determinationOrd ered By: Segundo Juarez on 08-13-2024 Color (U) Yellow Yellow [facility] Urine cultureOrdered By: Chase Juarez on 08-13-2024 Bacteria identified Cx Nom (U) Streptococcus agalactiae (B) Abnormal [facility] Urine leukocyte esterase det ection by dipstickOrdered By: Segundo Juarez on 08-13-2024 Leukocyte esterase Test strip Ql (U) 500 /ul High Negative [facility] Urine pHOrdered By: Segundo campoverde on 08-13-2024 pH (U) 6.0 [pH] 5.0 - 8.0 [facility] Urine sediment bacteria coun t by microscopy (number/high power field)Ordered By: Segundo Juarez on 08-13-2024 Bacteria LM.HPF (Urine sed) [#/Area] 3 /[HPF] None Seen [facility] Urine specific gravity measu rementOrdered By: Segundo Juarez on 08-13-2024 Specific gravity (U) [Rel density] 1.015 1.002-1.030 [facility] Urobilinogen Ql (U)Ordered B y: Segundo Juarez on 08-13-2024 Urine Urobilinogen Normal mg/dl Normal [facility] White blood cell (WBC) count Ordered By: Segundo Juarez on 08-13-2024 WBC (Bld) [#/Vol] 15.0 10*3/uL High 4.4-11.0 [facility] White blood cell countOrdere d By: Segundo Juarez on 08-13-2024 Urine WBC 50-100 SEEN /hpf 0-5 [facility] aPTT Coag (PPP) [Time]Ordere d By: Segundo Juarez on 08-13-2024 aPTT Coag (Bld) [Time] 40.2 s High 24.1-36.2 [facility] pH (Unsp spec)Ordered By: Hakeem Juarez on 08-13-2024 Blood Gas pH 7.32 Low 7.35-7.45 [facility] L3700.3000on 06-05-2024 PHENobarbital [Mass/Vol] 40 ug/mL Normal 15-40 [facility] Comment on above: Order Comment: 104.2 Result Comment: Dete ction Limit = 3Performed at: - [facility] [address] [id number] Director: Jsoe Vicente PhD, Phone: [phone] Performed By: #### L 100.0500, L3700.3000, L500.2500, L501.9520, L500.4100 ####[facility] [address] [place], [address] Basic Metabolic Profile (BMP )on 06-04-2024 BUN/CRE 33.0 RATIO High 10-20 [facility] Comment on above: Order Comment: 104.2 Performed By: #### L 100.0500, L3700.3000, L500.2500, L501.9520, L500.4100 ####[facility] [address] [place], [address] CA,Total 8.8 mg/dL Normal 8.5-10.1 [facility] Comment on above: Order Comment: 104.2 Performed By: #### L 100.0500, L3700.3000, L500.2500, L501.9520, L500.4100 ####[facility] [address] [place], [address] Chloride [Moles/Vol] 105 mmol/L Normal 98-107 [facility] Comment on above: Order Comment: 104.2 Performed By: #### L 100.0500, L3700.3000, L500.2500, L501.9520, L500.4100 ####[facility] [address] [place], [address] CO2 [Moles/Vol] 32.0 mmol/L Normal 21.0-32.0 [facility] Comment on above: Order Comment: 104.2 Performed By: #### L 100.0500, L3700.3000, L500.2500, L501.9520, L500.4100 ####[facility] [address] [place], [address] Creatinine [Mass/Vol] 0.82 mg/dL Normal 0.55-1.02 [facility] Comment on above: Order Comment: 104.2 Result Comment: The validity of the calculated GFR GFRAA in patients over70 years has not been determined. Clinical correlation isessential. Performed By: #### L 100.0500, L3700.3000, L500.2500, L501.9520, L500.4100 ####[facility] [address] [place], [address] EST GFR - AA 88 mL/min Normal >60 [facility] Comment on above: Order Comment: 104.2 Result Comment: Afri can Togolese GFR Calc Performed By: #### L 100.0500, L3700.3000, L500.2500, L501.9520, L500.4100 ####[facility] [address] [place], [address] GAP 2 Low 5-15 [facility] Comment on above: Order Comment: 104.2 Performed By: #### L 100.0500, L3700.3000, L500.2500, L501.9520, L500.4100 ####[facility] [address] [place], [address] GFR/1.73 sq M.predicted among non-blacks MDRD (S/P/Bld) [Vol rate/Area] 72 mL/min/{1.73_m2} Normal >60 [facility] Comment on above: Order Comment: 104.2 Result Comment: Non- GFR Calc Performed By: #### L 100.0500, L3700.3000, L500.2500, L501.9520, L500.4100 ####[facility] [address] [place], [address] Glucose [Mass/Vol] 93 mg/dL Normal 74-[address] [facility] Comment on above: Order Comment: 104.2 Performed By: #### L 100.0500, L3700.3000, L500.2500, L501.9520, L500.4100 ####[facility] [address] [place], [address] Potassium [Moles/Vol] 3.9 mmol/L Normal 3.5-5.1 [facility] Comment on above: Order Comment: 104.2 Performed By: #### L 100.0500, L3700.3000, L500.2500, L501.9520, L500.4100 ####[facility] [address] [place], [address] Sodium [Moles/Vol] 139 mmol/L Normal 136-[address] [facility] Comment on above: Order Comment: 104.2 Performed By: #### L 100.0500, L3700.3000, L500.2500, L501.9520, L500.4100 ####[facility] [address] [place], [address] Urea nitrogen [Mass/Vol] 27 mg/dL High 7-18 [facility] Comment on above: Order Comment: 104.2 Performed By: #### L 100.0500, L3700.3000, L500.2500, L501.9520, L500.4100 ####[facility] [address] [place], [address] Blood urea nitrogen (BUN)/cr eatinine ratioOrdered By: Panda Littlejohn on 06-04-2024 Urea nitrogen/Creatinine [Mass ratio] 33.0 mg/mg High 10-20 [facility] CBC-Complete Blood Cnt No Di ffon 06-04-2024 Erythrocyte distribution width (RBC) [Ratio] 17.2 % High 11.6-14.6 [facility] Comment on above: Order Comment: 104.2 Performed By: #### L 100.0500, L3700.3000, L500.2500, L501.9520, L500.4100 ####[facility] [address] [place], [address] Hematocrit (Bld) [Volume fraction] 31.9 % Low 37-47 [facility] Comment on above: Order Comment: 104.2 Performed By: #### L 100.0500, L3700.3000, L500.2500, L501.9520, L500.4100 ####[facility] [address] [place], [address] Hemoglobin (Bld) [Mass/Vol] 10.3 g/dL Low 12.0-15.0 [facility] Comment on above: Order Comment: 104.2 Performed By: #### L 100.0500, L3700.3000, L500.2500, L501.9520, L500.4100 ####[facility] [address] [place], [address] MCH (RBC) [Entitic mass] 32.6 pg High 27.0-32.0 [facility] Comment on above: Order Comment: 104.2 Performed By: #### L 100.0500, L3700.3000, L500.2500, L501.9520, L500.4100 ####[facility] [address] [place], [address] MCHC (RBC) [Mass/Vol] 32.3 g/dL Normal 32-36 [facility] Comment on above: Order Comment: 104.2 Performed By: #### L 100.0500, L3700.3000, L500.2500, L501.9520, L500.4100 ####[facility] [address] [place], [address] MCV (RBC) [Entitic vol] 100.9 fL High 81-99 [facility] Comment on above: Order Comment: 104.2 Performed By: #### L 100.0500, L3700.3000, L500.2500, L501.9520, L500.4100 ####[facility] [address] [place], [address] Platelet mean volume (Bld) [Entitic vol] 10.4 fL Normal 6.2-12.0 [facility] Comment on above: Order Comment: 104.2 Performed By: #### L 100.0500, L3700.3000, L500.2500, L501.9520, L500.4100 ####[facility] [address] [place], [address] Platelets (Bld) [#/Vol] 216 10*3/uL Normal 150-450 [facility] Comment on above: Order Comment: 104.2 Performed By: #### L 100.0500, L3700.3000, L500.2500, L501.9520, L500.4100 ####[facility] [address] [place], [address] RBC (Bld) [#/Vol] 3.16 10*6/uL Low 4.2-5.4 [facility] Comment on above: Order Comment: 104.2 Performed By: #### L 100.0500, L3700.3000, L500.2500, L501.9520, L500.4100 ####[facility] [address] [place], [address] RDW SD 64.7 fl High 35.1-43.9 [facility] Comment on above: Order Comment: 104.2 Performed By: #### L 100.0500, L3700.3000, L500.2500, L501.9520, L500.4100 ####[facility] [address] [place], [address] WBC (Bld) [#/Vol] 5.0 10*3/uL Normal 4.4-11.[address] [facility] Comment on above: Order Comment: 104.2 Performed By: #### L 100.0500, L3700.3000, L500.2500, L501.9520, L500.4100 ####[facility] [address] [place], [address] Carbon dioxide measurementOr dered By: Panda Littlejohn on 06-04-2024 CO2 [Moles/Vol] 32.0 mmol/L 21.0-32.0 [facility] Chloride measurementOrdered By: Panda Littlejohn on 06-04-2024 Chloride [Moles/Vol] 105 mmol/L 98-107 [facility] Erythrocyte distribution wid th ratioOrdered By: Panda Littlejohn on 06-04-2024 Erythrocyte distribution width (RBC) [Ratio] 17.2 % High 11.6-14.6 [facility] Erythrocyte distribution wid th standard deviationOrdered By: Panda Littlejohn on 06-04-2024 Erythrocyte distribution width (RBC) [Entitic vol] 64.7 fL High 35.1-43.9 [facility] Estimated glomerular filtrat ion rate (GFR) AmericanOrdered By: Panda Littlejohn on 06-04-2024 Estimated GFR (MDRD) Amer 88 mL/min >60 [facility] Comment on above: GFR Calc Glomerular filtration rate ( GFR) estimationOrdered By: Panda Littlejohn on 06-04-2024 Estimated GFR (MDRD) Non-Af Amer 72 mL/min >60 [facility] Comment on above: Non- GFR Calc Glucose measurementOrdered B y: Panda Littlejohn on 06-04-2024 Glucose [Mass/Vol] 93 mg/dL 74-[address] [facility] Hematocrit Auto (Bld) [Volum e fraction]Ordered By: Panda Littlejohn on 06-04-2024 Hematocrit (Bld) [Volume fraction] 31.9 % Low 37-47 [facility] Hemoglobin measurementOrdere d By: Panda Littlejohn on 06-04-2024 Hemoglobin (Bld) [Mass/Vol] 10.3 g/dL Low 12.0-15.0 [facility] High density lipoprotein (HD L) measurementOrdered By: Panda Littlejohn on 06-04-2024 Cholesterol in HDL [Mass/Vol] 86 mg/dL >40 [facility] Comment on above: The drugs N-Acetylcy steine and Metamizole may falsely depress this assay. Reference Range HDL <40 mg/dL Low HDL Cholesterol HDL >or= 60 mg/dL High HDL Cholesterol Lipid Profileon 06-04-2024 Cholesterol [Mass/Vol] 193 mg/dL Normal 200 [facility] Comment on above: Order Comment: 104.2 Result Comment: <200 mg/dL Desirable 200-240 mg/dL Borderline >240 mg/dL High Risk Performed By: #### L 100.0500, L3700.3000, L500.2500, L501.9520, L500.4100 ####[facility] [address] [place], [address] Cholesterol in HDL [Mass/Vol] 86 mg/dL Normal [facility] Comment on above: Order Comment: 104.2 Result Comment: The drugs N-Acetylcysteine and Metamizole may falselydepress this assay. Reference Range HDL <40 mg/dL Low HDL Cholesterol HDL >or= 60 mg/dL High HDL Cholesterol Performed By: #### L 100.0500, L3700.3000, L500.2500, L501.9520, L500.4100 ####[facility] [address] [place], [address] Cholesterol in LDL [Mass/Vol] 76 mg/dL Normal 0-130 [facility] Comment on above: Order Comment: 104.2 Performed By: #### L 100.0500, L3700.3000, L500.2500, L501.9520, L500.4100 ####[facility] [address] [place], [address] Cholesterol in VLDL [Mass/Vol] 31 mg/dL Normal 5-40 [facility] Comment on above: Order Comment: 104.2 Performed By: #### L 100.0500, L3700.3000, L500.2500, L501.9520, L500.4100 ####[facility] [address] [place], [address] Triglyceride [Mass/Vol] 154 mg/dL Normal [facility] Comment on above: Order Comment: 104.2 Result Comment: The drugs N-Acetylcysteine and Metamizole may falselydepress this assay.Serum Triglycerides Reference Interval Normal <150 mg/dL Borderline high 150 - 199 mg/dL High 200 - 499 mg/dL Very High > or = 500 mg/dL Performed By: #### L 100.0500, L3700.3000, L500.2500, L501.9520, L500.4100 ####[facility] [address] [place], [place], [id number] Low density lipoprotein (LDL ) cholesterol measurementOrdered By: Panda Littlejohn on 06-04-2024 Cholesterol in LDL [Mass/Vol] 76 mg/dL 0-130 [facility] MCV (mean corpuscular volume ) determinationOrdered By: Panda Littlejohn on 06-04-2024 MCV (RBC) [Entitic vol] 100.9 fL High 81-99 [facility] Mean corpuscular hemoglobin (MCH) determinationOrdered By: Panda Littlejohn on 06-04-2024 MCH (RBC) [Entitic mass] 32.6 pg High 27.0-32.0 [facility] Mean corpuscular hemoglobin concentration (MCHC) determinationOrdered By: Panda Littlejohn on 06-04-2024 MCHC (RBC) [Mass/Vol] 32.3 g/dL 32-36 [facility] Mean platelet volume determi nationOrdered By: Panda Littlejohn on 06-04-2024 Platelet mean volume (Bld) [Entitic vol] 10.4 fL 6.2-12.0 [facility] Platelet countOrdered By: Stormy Littlejohn on 06-04-2024 Platelets (Bld) [#/Vol] 216 10*3/uL 150-450 [facility] Potassium measurementOrdered By: Panda Littlejohn on 06-04-2024 Potassium [Moles/Vol] 3.9 mmol/L 3.5-5.1 [facility] Quantitative phenobarbital m easurementOrdered By: Panda Littlejohn on 06-04-2024 Phenobarbital Level 40 ug/mL 15-40 [facility] Comment on above: Detection Limit = 3P erformed at: CB - [facility] [place] [id number] Director: Jose Vicente PhD, Phone: [phone] RBC Auto (Bld) [#/Vol]Ordere d By: Panda Littlejohn on 06-04-2024 RBC (Bld) [#/Vol] 3.16 10*6/uL Low 4.2-5.4 [facility] Serum anion gap measurementO rdered By: Panda Littlejohn on 06-04-2024 Anion gap [Moles/Vol] 2 mmol/L Low 5-15 [facility] Serum or plasma calcium jerod urement (mass/volume)Ordered By: Panda Littlejohn on 06-04-2024 Calcium [Mass/Vol] 8.8 mg/dL 8.5-10.[address] [facility] Serum or plasma cholesterol measurement (mass/volume)Ordered By: Panda Littlejohn on 06-04-2024 Cholesterol [Mass/Vol] 193 mg/dL <200 [facility] Comment on above: <200 mg/dL Desirable 200-240 mg/dL Borderline >240 mg/dL High Risk Serum or plasma creatinine m easurement (mass/volume)Ordered By: Panda Littlejohn on 06-04-2024 Creatinine [Mass/Vol] 0.82 mg/dL 0.55-1.02 [facility] Comment on above: The validity of the calculated GFR & GFRAA in patients over 70 years has not been determined. Clinical correlation is essential. Serum or plasma urea nitroge n measurement (mass/volume)Ordered By: Panda Littlejohn on 06-04-2024 Urea nitrogen [Mass/Vol] 27 mg/dL High 7-18 [facility] Sodium levelOrdered By: Panda Littlejohn on 06-04-2024 Sodium [Moles/Vol] 139 mmol/L 136-[address] [facility] TSH QnOrdered By: Panda alfonso on 06-04-2024 Thyroid Stimulating Hormone (TSH) 2.320 uIU/mL 0.358-3.740 [facility] Thyroid Stim Hormone (TSH)on 06-04-2024 TSH 2.320 uIU/mL Normal 0.358-3.740 [facility] Comment on above: Order Comment: 104.2 Performed By: #### L 100.0500, L3700.3000, L500.2500, L501.9520, L500.4100 ####[facility] [address] [place], [place], [id number] Triglycerides measurementOrd ered By: Panda Littlejohn on 06-04-2024 Triglyceride [Mass/Vol] 154 mg/dL <199 [facility] Comment on above: The drugs N-Acetylcy steine and Metamizole may falsely depress this assay.Serum Triglycerides Reference Interval Normal <150 mg/dL Borderline high 150 - 199 mg/dL High 200 - 499 mg/dL Very High > or = 500 mg/dL Very low density lipoprotein (VLDL) cholesterol measurementOrdered By: Panda Littlejohn on 06-04-2024 VLDL Cholesterol 31 mg/dL [facility] White blood cell (WBC) count Ordered By: Panda Littlejohn on 06-04-2024 WBC (Bld) [#/Vol] 5.0 10*3/uL 4.4-11.[address] [facility] L3700.3000on 03-19-2024 PHENobarbital [Mass/Vol] 44 ug/mL Abnormal [facility] Comment on above: Order Comment: 104.2 Result Comment: Dete ction Limit = 3Patient drug level exceeds published reference range.Evaluate clinically for signs of potential toxicity.Performed at: [place] [address] [id number] Director: Jose Vicente PhD, Phone: [phone] Performed By: #### L 3700.3000 ####[facility] [address] [place], [address] Basic Metabolic Profile (BMP )on 03-17-2024 BUN Normal 7-18 [facility] Comment on above: Result Comment: Canc elled via OM: Order cancelled - Patient discharged Performed By: #### L 500.2500, L100.0100 ####[facility] [address] [place], [address] BUN/CRE Normal 10- [facility] Comment on above: Result Comment: Canc elled via OM: Order cancelled - Patient discharged Performed By: #### L 500.2500, L100.0100 ####[facility] [address] [place], [address] CA,Total Normal 8.5-10.1 [facility] Comment on above: Result Comment: Canc elled via OM: Order cancelled - Patient discharged Performed By: #### L 500.2500, L100.0100 ####[facility] [address] [place], [address] CL Normal 98-107 [facility] Comment on above: Result Comment: Canc elled via OM: Order cancelled - Patient discharged Performed By: #### L 500.2500, L100.0100 ####[facility] [address] [place], [address] CO2 Normal 21.0-32.0 [facility] Comment on above: Result Comment: Canc elled via OM: Order cancelled - Patient discharged Performed By: #### L 500.2500, L100.0100 ####[facility] [address] [place], [address] CREAT,SERUM Normal 0.55-1.02 [facility] Comment on above: Result Comment: Canc elled via OM: Order cancelled - Patient discharged Performed By: #### L 500.2500, L100.0100 ####[facility] [address] [place], [address] EST GFR Normal >60 [facility] Comment on above: Result Comment: Canc elled via OM: Order cancelled - Patient discharged Performed By: #### L 500.2500, L100.0100 ####[facility] [address] [place], [address] EST GFR - AA Normal >60 [facility] Comment on above: Result Comment: Canc elled via OM: Order cancelled - Patient discharged Performed By: #### L 500.2500, L100.0100 ####[facility] [address] [place], [address] GAP Normal 5-15 [facility] Comment on above: Result Comment: Canc elled via OM: Order cancelled - Patient discharged Performed By: #### L 500.2500, L100.0100 ####[facility] [address] [place], [address] GLU Normal 74-106 [facility] Comment on above: Result Comment: Canc elled via OM: Order cancelled - Patient discharged Performed By: #### L 500.2500, L100.0100 ####[facility] [address] [place], [address] Potassium Normal 3.5-5.1 [facility] Comment on above: Result Comment: Canc elled via OM: Order cancelled - Patient discharged Performed By: #### L 500.2500, L100.0100 ####[facility] [address] [place], [address] Basic Metabolic Profile (BMP) Normal 136-145 [facility] Comment on above: Result Comment: Canc elled via OM: Order cancelled - Patient discharged Performed By: #### L 500.2500, L100.0100 ####[facility] [address] [place], [address] CBC W/Diff, Automatedon 10-0 8-2023 Absolute Neut Normal 2.0-7.7 [facility] Comment on above: Result Comment: Canc elled via OM: Order cancelled - Patient discharged Performed By: #### L 500.2500, L100.0100 ####[facility] [address] [place], [address] HCT Normal 37-47 [facility] Comment on above: Result Comment: Canc elled via OM: Order cancelled - Patient discharged Performed By: #### L 500.2500, L100.0100 ####[facility] [address] [place], [address] HGB Normal 12.0-15.0 [facility] Comment on above: Result Comment: Canc elled via OM: Order cancelled - Patient discharged Performed By: #### L 500.2500, L100.0100 ####[facility] [address] [place], [address] MCH Normal 27.0-32.0 [facility] Comment on above: Result Comment: Canc elled via OM: Order cancelled - Patient discharged Performed By: #### L 500.2500, L100.0100 ####[facility] [address] [place], [address] MCHC Normal 32-36 [facility] Comment on above: Result Comment: Canc elled via OM: Order cancelled - Patient discharged Performed By: #### L 500.2500, L100.0100 ####[facility] [address] [place], [address] MCV Normal 81-99 [facility] Comment on above: Result Comment: Canc elled via OM: Order cancelled - Patient discharged Performed By: #### L 500.2500, L100.0100 ####[facility] [address] [place], [address] NEUT% Normal 47-70 [facility] Comment on above: Result Comment: Canc elled via OM: Order cancelled - Patient discharged Performed By: #### L 500.2500, L100.0100 ####[facility] [address] [place], [address] PLT Normal 150-450 [facility] Comment on above: Result Comment: Canc elled via OM: Order cancelled - Patient discharged Performed By: #### L 500.2500, L100.0100 ####[facility] [address] [place], [address] RBC Normal 4.2-5.4 [facility] Comment on above: Result Comment: Canc elled via OM: Order cancelled - Patient discharged Performed By: #### L 500.2500, L100.0100 ####[facility] [address] [place], [address] RDW CV Normal 11.6-14.6 [facility] Comment on above: Result Comment: Canc elled via OM: Order cancelled - Patient discharged Performed By: #### L 500.2500, L100.0100 ####[facility] [address] [place], [address] RDW SD Normal 35.1-43.9 [facility] Comment on above: Result Comment: Canc elled via OM: Order cancelled - Patient discharged Performed By: #### L 500.2500, L100.0100 ####[facility] [address] [place], [address] WBC Normal 4.4-11.0 [facility] Comment on above: Result Comment: Canc elled via OM: Order cancelled - Patient discharged Performed By: #### L 500.2500, L100.0100 ####[facility] [address] [place], [address] Culture, Blood (WB)on 2023 CUB Blood cultures x2, from two different sites No growth in 5 days. Normal [facility] Comment on above: Performed By: #### M 200.1000, L503.6005 ####[facility] [address] [place], [address] Basic Metabolic Profile (BMP )on 03-16-2024 BUN/CRE 40.4 RATIO High 10-20 [facility] Comment on above: Performed By: #### L 500.2500, L100.0100 ####[facility] [address] [place], [address] CA,Total 9.1 mg/dL Normal 8.5-10.1 [facility] Comment on above: Performed By: #### L 500.2500, L100.0100 ####[facility] [address] [place], [address] Chloride [Moles/Vol] 112 mmol/L High 98-107 [facility] Comment on above: Performed By: #### L 500.2500, L100.0100 ####[facility] [address] [place], [address] CO2 [Moles/Vol] 25.0 mmol/L Normal 21.0-32.0 [facility] Comment on above: Performed By: #### L 500.2500, L100.0100 ####[facility] [address] [place], [address] Creatinine [Mass/Vol] 0.57 mg/dL Normal 0.55-1.02 [facility] Comment on above: Result Comment: The validity of the calculated GFR GFRAA in patients over70 years has not been determined. Clinical correlation isessential. Performed By: #### L 500.2500, L100.0100 ####[facility] [address] [place], [address] ECRCL 84.19 ml/min Normal [facility] Comment on above: Performed By: #### L 500.2500, L100.0100 ####[facility] [address] [place], [address] EST GFR - AA 133 mL/min Normal >60 [facility] Comment on above: Result Comment: Afri can Togolese GFR Calc Performed By: #### L 500.2500, L100.0100 ####[facility] [address] [place], [address] GAP 7 Normal 5-15 [facility] Comment on above: Performed By: #### L 500.2500, L100.0100 ####[facility] [address] [place], [address] GFR/1.73 sq M.predicted among non-blacks MDRD (S/P/Bld) [Vol rate/Area] 110 mL/min/{1.73_m2} Normal >60 [facility] Comment on above: Result Comment: Non- GFR Calc Performed By: #### L 500.2500, L100.0100 ####[facility] [address] [place], [address] Glucose [Mass/Vol] 97 mg/dL Normal 74-[address] [facility] Comment on above: Performed By: #### L 500.2500, L100.0100 ####[facility] [address] [place], [address] Potassium [Moles/Vol] 3.8 mmol/L Normal 3.5-5.1 [facility] Comment on above: Performed By: #### L 500.2500, L100.0100 ####[facility] [address] [place], [address] Sodium [Moles/Vol] 143 mmol/L Normal 136-[address] [facility] Comment on above: Performed By: #### L 500.2500, L100.0100 ####[facility] [address] [place], [address] Urea nitrogen [Mass/Vol] 23 mg/dL High 7-18 [facility] Comment on above: Performed By: #### L 500.2500, L100.0100 ####[facility] [address] [place], [address] CBC W/Diff, Automatedon 10-0 7-2023 Absolute Lymph 2.15 X10 3/uL Normal 0.83-4.51 [facility] Comment on above: Performed By: #### L 500.2500, L100.0100 ####[facility] [address] [place], [address] Absolute Neut 3.9 X10 3/uL Normal 2.0-7.7 [facility] Comment on above: Performed By: #### L 500.2500, L100.0100 ####[facility] [address] [place], [address] Basophils/100 WBC (Bld) 0.1 % Normal 0-1 [facility] Comment on above: Performed By: #### L 500.2500, L100.0100 ####[facility] [address] [place], [address] Eosinophils/100 WBC (Bld) 5.4 % High 0-5 [facility] Comment on above: Performed By: #### L 500.2500, L100.0100 ####[facility] [address] [place], [address] Erythrocyte distribution width (RBC) [Ratio] 17.2 % High 11.6-14.6 [facility] Comment on above: Performed By: #### L 500.2500, L100.0100 ####[facility] [address] [place], [address] Hematocrit (Bld) [Volume fraction] 31.2 % Low 37-47 [facility] Comment on above: Performed By: #### L 500.2500, L100.0100 ####[facility] [address] [place], [address] Hemoglobin (Bld) [Mass/Vol] 10.0 g/dL Low 12.0-15.0 [facility] Comment on above: Performed By: #### L 500.2500, L100.0100 ####[facility] [address] [place], [address] IG% 1.100 High 0.0-0.9 [facility] Comment on above: Result Comment: IG% - Immature Granulocytes (promyelocytes, myelocytes andmetamyelocytes) > 1% indicates that a LEFT SHIFT is Present. Performed By: #### L 500.2500, L100.0100 ####[facility] [address] [place], [address] Lymphocytes/100 WBC (Bld) 29.9 % Normal 19-41 [facility] Comment on above: Performed By: #### L 500.2500, L100.0100 ####[facility] [address] [place], [address] MCH (RBC) [Entitic mass] 30.8 pg Normal 27.0-32.0 [facility] Comment on above: Performed By: #### L 500.2500, L100.0100 ####[facility] [address] [place], [address] MCHC (RBC) [Mass/Vol] 32.1 g/dL Normal 32-36 [facility] Comment on above: Performed By: #### L 500.2500, L100.0100 ####[facility] [address] [place], [address] MCV (RBC) [Entitic vol] 96.0 fL Normal 81-99 [facility] Comment on above: Performed By: #### L 500.2500, L100.0100 ####[facility] [address] [place], [address] Monocytes/100 WBC (Bld) 9.3 % Normal 0-10 [facility] Comment on above: Performed By: #### L 500.2500, L100.0100 ####[facility] [address] [place], [address] Neutrophils/100 WBC (Bld) 54.2 % Normal 47-70 [facility] Comment on above: Performed By: #### L 500.2500, L100.0100 ####[facility] [address] [place], [address] Nucleated RBC (Bld) [#/Vol] 0 10*3/uL Normal 0-5 [facility] Comment on above: Performed By: #### L 500.2500, L100.0100 ####[facility] [address] [place], [address] Platelet mean volume (Bld) [Entitic vol] 9.6 fL Normal 6.2-12.0 [facility] Comment on above: Performed By: #### L 500.2500, L100.0100 ####[facility] [address] [place], [address] Platelets (Bld) [#/Vol] 180 10*3/uL Normal 150-450 [facility] Comment on above: Performed By: #### L 500.2500, L100.0100 ####[facility] [address] [place], [address] RBC (Bld) [#/Vol] 3.25 10*6/uL Low 4.2-5.4 [facility] Comment on above: Performed By: #### L 500.2500, L100.0100 ####[facility] [address] [place], [address] RDW SD 61.0 fl High 35.1-43.9 [facility] Comment on above: Performed By: #### L 500.2500, L100.0100 ####[facility] [address] [place], [address] WBC (Bld) [#/Vol] 7.2 10*3/uL Normal 4.4-11.[address] [facility] Comment on above: Performed By: #### L 500.2500, L100.0100 ####[facility] [address] [place], [address] Culture, Blood (WB)on 2023 CUB Blood cultures x2, from two different sites No growth in 5 days. Normal [facility] Comment on above: Performed By: #### M 200.1000 ####[facility] [address] [place], [address] EGD Reporton 03-16-2024 EGD Report Normal [facility] H Pylori (initial)on 024 H Pylori (initial) Normal [facility] Comment on above: Performed By: #### P H.PYLORI ####[facility] [address] [place], [address] MR/POSTOP.ANEon 03-16-2024 MR/POSTOP.ANE Normal [facility] MR/[id number] 03-16-2024 MR/POSTOPAN2 Normal [facility] [facility] Surgery Specimen Level [place] 03-16-2024 Surgery Specimen Level IV Normal [facility] Comment on above: Performed By: #### P SUIV ####[facility] [address] [place], [address] Vancomycin, Random Levelon 1 VANCO, RANDOM 16.4 ug/mL High 0.0-15.0 [facility] Comment on above: Result Comment: VANC OMYCIN STANDARD DRUG THERAPY: CRITICAL VALUE IS > 15.0 mg/LVANCOMYCIN HIGH INTENSITY THERAPY: CRITICAL VALUE IS > 20.0 mg/LPLEASE CONTACT PHARMACY SERVICES (#5677) FOR INTERPRETATIONOF RESULTS. THIS RESULT DOES NOT REPRESENT A PEAK OR TROUGHLEVEL FOR THIS DRUG. Performed By: #### L 501.8850 ####[facility] [address] [place], [address] Basic Metabolic Profile (BMP )on 03-15-2024 BUN/CRE 53.1 RATIO High 10-20 [facility] Comment on above: Performed By: #### L 100.0100, L500.2500 ####[facility] [address] [place], [address] CA,Total 8.9 mg/dL Normal 8.5-10.1 [facility] Comment on above: Performed By: #### L 100.0100, L500.2500 ####[facility] [address] [place], [address] Chloride [Moles/Vol] 113 mmol/L High 98-107 [facility] Comment on above: Performed By: #### L 100.0100, L500.2500 ####[facility] [address] [place], [address] CO2 [Moles/Vol] 26.0 mmol/L Normal 21.0-32.0 [facility] Comment on above: Performed By: #### L 100.0100, L500.2500 ####[facility] [address] [place], [address] Creatinine [Mass/Vol] 0.62 mg/dL Normal 0.55-1.02 [facility] Comment on above: Result Comment: The validity of the calculated GFR GFRAA in patients over70 years has not been determined. Clinical correlation isessential. Performed By: #### L 100.0100, L500.2500 ####[facility] [address] [place], [address] ECRCL 84.07 ml/min Normal [facility] Comment on above: Performed By: #### L 100.0100, L500.2500 ####[facility] [address] [place], [address] EST GFR - AA 121 mL/min Normal >60 [facility] Comment on above: Result Comment: Afri can Togolese GFR Calc Performed By: #### L 100.0100, L500.2500 ####[facility] [address] [place], [address] GAP 4 Low 5-15 [facility] Comment on above: Performed By: #### L 100.0100, L500.2500 ####[facility] [address] [place], [address] GFR/1.73 sq M.predicted among non-blacks MDRD (S/P/Bld) [Vol rate/Area] 100 mL/min/{1.73_m2} Normal >60 [facility] Comment on above: Result Comment: Non- GFR Calc Performed By: #### L 100.0100, L500.2500 ####[facility] [address] [place], [address] Glucose [Mass/Vol] 97 mg/dL Normal 74-[address] [facility] Comment on above: Performed By: #### L 100.0100, L500.2500 ####[facility] [address] [place], [address] Potassium [Moles/Vol] 3.8 mmol/L Normal 3.5-5.1 [facility] Comment on above: Performed By: #### L 100.0100, L500.2500 ####[facility] [address] [place], [address] Sodium [Moles/Vol] 143 mmol/L Normal 136-[address] [facility] Comment on above: Performed By: #### L 100.0100, L500.2500 ####[facility] [address] [place], [address] Urea nitrogen [Mass/Vol] 33 mg/dL High 7-18 [facility] Comment on above: Performed By: #### L 100.0100, L500.2500 ####[facility] [address] [place], [address] CBC W/Diff, Automatedon 10-0 6-4 Absolute Lymph 1.74 X10 3/uL Normal 0.83-4.51 [facility] Comment on above: Performed By: #### L 100.0100, L500.2500 ####[facility] [address] [place], [address] Absolute Neut 5.1 X10 3/uL Normal 2.0-7.7 [facility] Comment on above: Performed By: #### L 100.0100, L500.2500 ####[facility] [address] [place], [address] Basophils/100 WBC (Bld) 0.3 % Normal 0-1 [facility] Comment on above: Performed By: #### L 100.0100, L500.2500 ####[facility] [address] [place], [address] Eosinophils/100 WBC (Bld) 4.5 % Normal 0-5 [facility] Comment on above: Performed By: #### L 100.0100, L500.2500 ####[facility] [address] [place], [address] Erythrocyte distribution width (RBC) [Ratio] 17.2 % High 11.6-14.6 [facility] Comment on above: Performed By: #### L 100.0100, L500.2500 ####[facility] [address] [place], [address] Hematocrit (Bld) [Volume fraction] 30.5 % Low 37-47 [facility] Comment on above: Performed By: #### L 100.0100, L500.2500 ####[facility] [address] [place], [address] Hemoglobin (Bld) [Mass/Vol] 9.6 g/dL Low 12.0-15.0 [facility] Comment on above: Performed By: #### L 100.0100, L500.2500 ####[facility] [address] [place], [address] IG% 0.800 Normal 0.0-0.9 [facility] Comment on above: Result Comment: IG% - Immature Granulocytes (promyelocytes, myelocytes andmetamyelocytes) > 1% indicates that a LEFT SHIFT is Present. Performed By: #### L 100.0100, L500.2500 ####[facility] [address] [place], [address] Lymphocytes/100 WBC (Bld) 21.8 % Normal 19-41 [facility] Comment on above: Performed By: #### L 100.0100, L500.2500 ####[facility] [address] [place], [address] MCH (RBC) [Entitic mass] 30.3 pg Normal 27.0-32.0 [facility] Comment on above: Performed By: #### L 100.0100, L500.2500 ####[facility] [address] [place], [address] MCHC (RBC) [Mass/Vol] 31.5 g/dL Low 32-36 [facility] Comment on above: Performed By: #### L 100.0100, L500.2500 ####[facility] [address] [place], [address] MCV (RBC) [Entitic vol] 96.2 fL Normal 81-99 [facility] Comment on above: Performed By: #### L 100.0100, L500.2500 ####[facility] [address] [place], [address] Monocytes/100 WBC (Bld) 9.1 % Normal 0-10 [facility] Comment on above: Performed By: #### L 100.0100, L500.2500 ####[facility] [address] [place], [address] Neutrophils/100 WBC (Bld) 63.5 % Normal 47-70 [facility] Comment on above: Performed By: #### L 100.0100, L500.2500 ####[facility] [address] [place], [address] Nucleated RBC (Bld) [#/Vol] 0 10*3/uL Normal 0-5 [facility] Comment on above: Performed By: #### L 100.0100, L500.2500 ####[facility] [address] [place], [address] Platelet mean volume (Bld) [Entitic vol] 9.9 fL Normal 6.2-12.0 [facility] Comment on above: Performed By: #### L 100.0100, L500.2500 ####[facility] [address] [place], [address] Platelets (Bld) [#/Vol] 190 10*3/uL Normal 150-450 [facility] Comment on above: Performed By: #### L 100.0100, L500.2500 ####[facility] [address] [place], [address] RBC (Bld) [#/Vol] 3.17 10*6/uL Low 4.2-5.4 [facility] Comment on above: Performed By: #### L 100.0100, L500.2500 ####[facility] [address] [place], [address] RDW SD 61.3 fl High 35.1-43.9 [facility] Comment on above: Performed By: #### L 100.0100, L500.2500 ####[facility] [address] [place], [address] WBC (Bld) [#/Vol] 8.0 10*3/uL Normal 4.4-11.[address] [facility] Comment on above: Performed By: #### L 100.0100, L500.2500 ####[facility] [address] [place], [address] MR/PN.GIon 03-15-2024 MR/PN.GI Normal [facility] Vancomycin, Trough Levelon 1 VANCO, TROUGH 20.7 ug/mL High 5.0-15.0 [facility] Comment on above: Order Comment: Comme nts: Trough to be drawn 30 mins prior to scheduled [id number] Result Comment: VANC OMYCIN STANDARED DRUG THERAPY TROUGH LEVEL: 5.0 - 15.0 mg/LVANCOMYCIN HIGH INTENSITY THERAPY TROUGH LEVEL: 15.0 - 20.0 mg/LHigh Intensity therapy recommended for serious lifethreatening infections include:- Xjajedkcnq-Zopnwvwjdfzd-Aqvrtszcd (Ventilator/Healtcare Associated)-SepsisPLEASE CONTACT PHARMACY SERVICES (#9355) FOR INTERPRETATIONOF RESULTS. Performed By: #### L 501.8820 ####[facility] [address] [place], [address] Basic Metabolic Profile (BMP )on 03-14-2024 BUN/CRE 51.2 RATIO High 10-20 [facility] Comment on above: Performed By: #### L 100.0100, L500.2500 ####[facility] [address] [place], [address] CA,Total 8.9 mg/dL Normal 8.5-10.1 [facility] Comment on above: Performed By: #### L 100.0100, L500.2500 ####[facility] [address] [place], [address] Chloride [Moles/Vol] 112 mmol/L High 98-107 [facility] Comment on above: Performed By: #### L 100.0100, L500.2500 ####[facility] [address] [place], [address] CO2 [Moles/Vol] 24.0 mmol/L Normal 21.0-32.0 [facility] Comment on above: Performed By: #### L 100.0100, L500.2500 ####[facility] [address] [place], [address] Creatinine [Mass/Vol] 0.78 mg/dL Normal 0.55-1.02 [facility] Comment on above: Result Comment: The validity of the calculated GFR GFRAA in patients over70 years has not been determined. Clinical correlation isessential. Performed By: #### L 100.0100, L500.2500 ####[facility] [address] [place], [address] ECRCL 82.01 ml/min Normal [facility] Comment on above: Performed By: #### L 100.0100, L500.2500 ####[facility] [address] [place], [address] EST GFR - AA 92 mL/min Normal >60 [facility] Comment on above: Result Comment: Afri can Togolese GFR Calc Performed By: #### L 100.0100, L500.2500 ####[facility] [address] [place], [address] GAP 4 Low 5-15 [facility] Comment on above: Performed By: #### L 100.0100, L500.2500 ####[facility] [address] [place], [address] GFR/1.73 sq M.predicted among non-blacks MDRD (S/P/Bld) [Vol rate/Area] 76 mL/min/{1.73_m2} Normal >60 [facility] Comment on above: Result Comment: Non- GFR Calc Performed By: #### L 100.0100, L500.2500 ####[facility] [address] [place], [address] Glucose [Mass/Vol] 110 mg/dL High 74-[address] [facility] Comment on above: Result Comment: Fast ing Glucose result from 100 to 125 mg/dLsuggests IMPAIRED HOMEOSTASIS per A.D.A. criteria. Performed By: #### L 100.0100, L500.2500 ####[facility] [address] [place], [address] Potassium [Moles/Vol] 3.5 mmol/L Normal 3.5-5.1 [facility] Comment on above: Performed By: #### L 100.0100, L500.2500 ####[facility] [address] [place], [address] Sodium [Moles/Vol] 141 mmol/L Normal 136-[address] [facility] Comment on above: Performed By: #### L 100.0100, L500.2500 ####[facility] [address] [place], [address] Urea nitrogen [Mass/Vol] 40 mg/dL High 7-18 [facility] Comment on above: Performed By: #### L 100.0100, L500.2500 ####[facility] [address] [place], [address] CBC W/Diff, Automatedon 10-0 5-2024 Absolute Lymph 1.83 X10 3/uL Normal 0.83-4.51 [facility] Comment on above: Performed By: #### L 100.0100, L500.2500 ####[facility] [address] [place], [address] Absolute Neut 10.4 X10 3/uL High 2.0-7.7 [facility] Comment on above: Performed By: #### L 100.0100, L500.2500 ####[facility] [address] [place], [address] Basophils/100 WBC (Bld) 0.3 % Normal 0-1 [facility] Comment on above: Performed By: #### L 100.0100, L500.2500 ####[facility] [address] [place], [address] Eosinophils/100 WBC (Bld) 3.5 % Normal 0-5 [facility] Comment on above: Performed By: #### L 100.0100, L500.2500 ####[facility] [address] [place], [address] Erythrocyte distribution width (RBC) [Ratio] 17.2 % High 11.6-14.6 [facility] Comment on above: Performed By: #### L 100.0100, L500.2500 ####[facility] [address] [place], [address] Hematocrit (Bld) [Volume fraction] 29.7 % Low 37-47 [facility] Comment on above: Performed By: #### L 100.0100, L500.2500 ####[facility] [address] [place], [address] Hemoglobin (Bld) [Mass/Vol] 9.5 g/dL Low 12.0-15.0 [facility] Comment on above: Performed By: #### L 100.0100, L500.2500 ####[facility] [address] [place], [address] IG% 0.400 Normal 0.0-0.9 [facility] Comment on above: Result Comment: IG% - Immature Granulocytes (promyelocytes, myelocytes andmetamyelocytes) > 1% indicates that a LEFT SHIFT is Present. Performed By: #### L 100.0100, L500.2500 ####[facility] [address] [place], [address] Lymphocytes/100 WBC (Bld) 13.4 % Low 19-41 [facility] Comment on above: Performed By: #### L 100.0100, L500.2500 ####[facility] [address] [place], [address] MCH (RBC) [Entitic mass] 31.0 pg Normal 27.0-32.0 [facility] Comment on above: Performed By: #### L 100.0100, L500.2500 ####[facility] [address] [place], [address] MCHC (RBC) [Mass/Vol] 32.0 g/dL Normal 32-36 [facility] Comment on above: Performed By: #### L 100.0100, L500.2500 ####[facility] [address] [place], [address] MCV (RBC) [Entitic vol] 97.1 fL Normal 81-99 [facility] Comment on above: Performed By: #### L 100.0100, L500.2500 ####[facility] [address] [place], [address] Monocytes/100 WBC (Bld) 6.2 % Normal 0-10 [facility] Comment on above: Performed By: #### L 100.0100, L500.2500 ####[facility] [address] [place], [address] Neutrophils/100 WBC (Bld) 76.2 % High 47-70 [facility] Comment on above: Performed By: #### L 100.0100, L500.2500 ####[facility] [address] [place], [address] Nucleated RBC (Bld) [#/Vol] 0 10*3/uL Normal 0-5 [facility] Comment on above: Performed By: #### L 100.0100, L500.2500 ####[facility] [address] [place], [address] Platelet mean volume (Bld) [Entitic vol] 9.6 fL Normal 6.2-12.0 [facility] Comment on above: Performed By: #### L 100.0100, L500.2500 ####[facility] [address] [place], [address] Platelets (Bld) [#/Vol] 156 10*3/uL Normal 150-450 [facility] Comment on above: Performed By: #### L 100.0100, L500.2500 ####[facility] [address] [place], [address] RBC (Bld) [#/Vol] 3.06 10*6/uL Low 4.2-5.4 [facility] Comment on above: Performed By: #### L 100.0100, L500.2500 ####[facility] [address] [place], [address] RDW SD 61.5 fl High 35.1-43.9 [facility] Comment on above: Performed By: #### L 100.0100, L500.2500 ####[facility] [address] [place], [address] WBC (Bld) [#/Vol] 13.6 10*3/uL High 4.4-11.0 [facility] Comment on above: Performed By: #### L 100.0100, L500.2500 ####[facility] [address] [place], [address] CBC W/Diff, Automatedon 10-0 4-2023 Absolute Lymph 1.57 X10 3/uL Normal 0.83-4.51 [facility] Comment on above: Performed By: #### L 500.4050, L100.0100 ####[facility] [address] [place], [address] Absolute Neut 15.6 X10 3/uL High 2.0-7.7 [facility] Comment on above: Performed By: #### L 500.4050, L100.0100 ####[facility] [address] [place], [address] Basophils/100 WBC (Bld) 0.1 % Normal 0-1 [facility] Comment on above: Performed By: #### L 500.4050, L100.0100 ####[facility] [address] [place], [address] Eosinophils/100 WBC (Bld) 0.5 % Normal 0-5 [facility] Comment on above: Performed By: #### L 500.4050, L100.0100 ####[facility] [address] [place], [address] Erythrocyte distribution width (RBC) [Ratio] 17.2 % High 11.6-14.6 [facility] Comment on above: Performed By: #### L 500.4050, L100.0100 ####[facility] [address] [place], [address] Hematocrit (Bld) [Volume fraction] 30.1 % Low 37-47 [facility] Comment on above: Performed By: #### L 500.4050, L100.0100 ####[facility] [address] [place], [address] Hemoglobin (Bld) [Mass/Vol] 9.5 g/dL Low 12.0-15.0 [facility] Comment on above: Performed By: #### L 500.4050, L100.0100 ####[facility] [address] [place], [address] IG% 0.500 Normal 0.0-0.9 [facility] Comment on above: Result Comment: IG% - Immature Granulocytes (promyelocytes, myelocytes andmetamyelocytes) > 1% indicates that a LEFT SHIFT is Present. Performed By: #### L 500.4050, L100.0100 ####[facility] [address] [place], [address] Lymphocytes/100 WBC (Bld) 8.5 % Low 19-41 [facility] Comment on above: Performed By: #### L 500.4050, L100.0100 ####[facility] [address] [place], [address] MCH (RBC) [Entitic mass] 30.9 pg Normal 27.0-32.0 [facility] Comment on above: Performed By: #### L 500.4050, L100.0100 ####[facility] [address] [place], [address] MCHC (RBC) [Mass/Vol] 31.6 g/dL Low 32-36 [facility] Comment on above: Performed By: #### L 500.4050, L100.0100 ####[facility] [address] [place], [address] MCV (RBC) [Entitic vol] 98.0 fL Normal 81-99 [facility] Comment on above: Performed By: #### L 500.4050, L100.0100 ####[facility] [address] [place], [address] Monocytes/100 WBC (Bld) 6.1 % Normal 0-10 [facility] Comment on above: Performed By: #### L 500.4050, L100.0100 ####[facility] [address] [place], [address] Neutrophils/100 WBC (Bld) 84.3 % High 47-70 [facility] Comment on above: Performed By: #### L 500.4050, L100.0100 ####[facility] [address] [place], [address] Nucleated RBC (Bld) [#/Vol] 0 10*3/uL Normal 0-5 [facility] Comment on above: Performed By: #### L 500.4050, L100.0100 ####[facility] [address] [place], [address] Platelet mean volume (Bld) [Entitic vol] 10.1 fL Normal 6.2-12.0 [facility] Comment on above: Performed By: #### L 500.4050, L100.0100 ####[facility] [address] [place], [address] Platelets (Bld) [#/Vol] 150 10*3/uL Normal 150-450 [facility] Comment on above: Performed By: #### L 500.4050, L100.0100 ####[facility] [address] [place], [address] RBC (Bld) [#/Vol] 3.07 10*6/uL Low 4.2-5.4 [facility] Comment on above: Performed By: #### L 500.4050, L100.0100 ####[facility] [address] [place], [address] RDW SD 61.9 fl High 35.1-43.9 [facility] Comment on above: Performed By: #### L 500.4050, L100.0100 ####[facility] [address] [place], [address] WBC (Bld) [#/Vol] 18.5 10*3/uL High 4.4-11.0 [facility] Comment on above: Performed By: #### L 500.4050, L100.0100 ####[facility] [address] [place], [address] Comprehensive Metabolic Prof ilon 03-13-2024 Albumin [Mass/Vol] 2.3 g/dL Low 3.2-5.[address] [facility] Comment on above: Performed By: #### L 500.4050, L100.0100 ####[facility] [address] [place], [address] Albumin/Globulin [Mass ratio] 0.6 {ratio} Low 0.9-2.4 [facility] Comment on above: Performed By: #### L 500.4050, L100.0100 ####[facility] [address] [place], [address] ALK P 115 U/L Normal 45-117 [facility] Comment on above: Performed By: #### L 500.4050, L100.0100 ####[facility] [address] [place], [address] ALT [Catalytic activity/Vol] 25 U/L Normal 13-56 [facility] Comment on above: Performed By: #### L 500.4050, L100.0100 ####[facility] [address] [place], [address] AST [Catalytic activity/Vol] 29 U/L Normal 15-37 [facility] Comment on above: Performed By: #### L 500.4050, L100.0100 ####[facility] [address] [place], [address] Bilirubin [Mass/Vol] 0.20 mg/dL Normal 0.20-1.00 [facility] Comment on above: Result Comment: For patients on eltrombopag therapy, use of Dimension [place] TBIL is not recommended. Performed By: #### L 500.4050, L100.0100 ####[facility] [address] [place], [address] BUN/CRE 42.7 RATIO High 10-20 [facility] Comment on above: Performed By: #### L 500.4050, L100.0100 ####[facility] [address] [place], [address] CA,Total 8.7 mg/dL Normal 8.5-10.1 [facility] Comment on above: Performed By: #### L 500.4050, L100.0100 ####[facility] [address] [place], [address] Chloride [Moles/Vol] 116 mmol/L High 98-107 [facility] Comment on above: Performed By: #### L 500.4050, L100.0100 ####[facility] [address] [place], [address] CO2 [Moles/Vol] 26.0 mmol/L Normal 21.0-32.0 [facility] Comment on above: Performed By: #### L 500.4050, L100.0100 ####[facility] [address] [place], [address] Creatinine [Mass/Vol] 0.94 mg/dL Normal 0.55-1.02 [facility] Comment on above: Result Comment: The validity of the calculated GFR GFRAA in patients over70 years has not been determined. Clinical correlation isessential. Performed By: #### L 500.4050, L100.0100 ####[facility] [address] [place], [address] ECRCL 69.79 ml/min Normal [facility] Comment on above: Performed By: #### L 500.4050, L100.0100 ####[facility] [address] [place], [address] EST GFR - AA 75 mL/min Normal >60 [facility] Comment on above: Result Comment: Afri can Togolese GFR Calc Performed By: #### L 500.4050, L100.0100 ####[facility] [address] [place], [address] GAP 3 Low 5-15 [facility] Comment on above: Performed By: #### L 500.4050, L100.0100 ####[facility] [address] [place], [address] GFR/1.73 sq M.predicted among non-blacks MDRD (S/P/Bld) [Vol rate/Area] 62 mL/min/{1.73_m2} Normal >60 [facility] Comment on above: Result Comment: Non- GFR Calc Performed By: #### L 500.4050, L100.0100 ####[facility] [address] [place], [address] Globulin (S) [Mass/Vol] 4.0 g/dL Normal 2.2-4.2 [facility] Comment on above: Performed By: #### L 500.4050, L100.0100 ####[facility] [address] [place], [address] Glucose [Mass/Vol] 106 mg/dL Normal 74-[address] [facility] Comment on above: Result Comment: Fast ing Glucose result from 100 to 125 mg/dLsuggests IMPAIRED HOMEOSTASIS per A.D.A. criteria. Performed By: #### L 500.4050, L100.0100 ####[facility] [address] [place], [address] Potassium [Moles/Vol] 3.5 mmol/L Normal 3.5-5.1 [facility] Comment on above: Performed By: #### L 500.4050, L100.0100 ####[facility] [address] [place], [address] Sodium [Moles/Vol] 145 mmol/L Normal 136-[address] [facility] Comment on above: Performed By: #### L 500.4050, L100.0100 ####[facility] [address] [place], [address] T PROT 6.3 g/dL Low 6.4-8.2 [facility] Comment on above: Performed By: #### L 500.4050, L100.0100 ####[facility] [address] [place], [address] Urea nitrogen [Mass/Vol] 40 mg/dL High 7-18 [facility] Comment on above: Performed By: #### L 500.4050, L100.0100 ####[facility] [address] [place], [address] Urine Cultureon 03-13-2024 URC Normal [facility] Comment on above: Performed By: #### M 100.678, M100.6950, L400.0001, M100.2200 ####[facility] [address] [place], [address] Vancomycin, Trough Levelon 1 VANCO, TROUGH 15.7 ug/mL High 5.0-15.0 [facility] Comment on above: Result Comment: VANC OMYCIN STANDARED DRUG THERAPY TROUGH LEVEL: 5.0 - 15.0 mg/LVANCOMYCIN HIGH INTENSITY THERAPY TROUGH LEVEL: 15.0 - 20.0 mg/LHigh Intensity therapy recommended for serious lifethreatening infections include:- Gjfvefcolp-Czdpgttoxlmm-Bdegflmff (Ventilator/Healtcare Associated)-SepsisPLEASE CONTACT PHARMACY SERVICES (#6272) FOR INTERPRETATIONOF RESULTS. Performed By: #### L 501.8820 ####[facility] [address] [place], [address] Basic Metabolic Profile (BMP )on 03-12-2024 BUN Normal 7-18 [facility] Comment on above: Result Comment: DUPL ICATE-CMP ORDERED Performed By: #### L 300.3900, L501.9985, L300.4310, L500.2500 ####[facility] [address] [place], [address] BUN/CRE Normal 10-20 [facility] Comment on above: Result Comment: DUPL ICATE-CMP ORDERED Performed By: #### L 300.3900, L501.9985, L300.4310, L500.2500 ####[facility] [address] [place], [address] CA,Total Normal 8.5-10.1 [facility] Comment on above: Result Comment: DUPL ICATE-CMP ORDERED Performed By: #### L 300.3900, L501.9985, L300.4310, L500.2500 ####[facility] [address] [place], [address] CL Normal 98-107 [facility] Comment on above: Result Comment: DUPL ICATE-CMP ORDERED Performed By: #### L 300.3900, L501.9985, L300.4310, L500.2500 ####[facility] [address] [place], [address] CO2 Normal 21.0-32.0 [facility] Comment on above: Result Comment: DUPL ICATE-CMP ORDERED Performed By: #### L 300.3900, L501.9985, L300.4310, L500.2500 ####[facility] [address] [place], [address] CREAT,SERUM Normal 0.55-1.02 [facility] Comment on above: Result Comment: DUPL ICATE-CMP ORDERED Performed By: #### L 300.3900, L501.9985, L300.4310, L500.2500 ####[facility] [address] [place], [address] EST GFR Normal >60 [facility] Comment on above: Result Comment: DUPL ICATE-CMP ORDERED Performed By: #### L 300.3900, L501.9985, L300.4310, L500.2500 ####[facility] [address] [place], [address] EST GFR - AA Normal >60 [facility] Comment on above: Result Comment: DUPL ICATE-CMP ORDERED Performed By: #### L 300.3900, L501.9985, L300.4310, L500.2500 ####[facility] [address] [place], [address] GAP Normal 5-15 [facility] Comment on above: Result Comment: DUPL ICATE-CMP ORDERED Performed By: #### L 300.3900, L501.9985, L300.4310, L500.2500 ####[facility] [address] [place], [address] GLU Normal 74-106 [facility] Comment on above: Result Comment: DUPL ICATE-CMP ORDERED Performed By: #### L 300.3900, L501.9985, L300.4310, L500.2500 ####[facility] [address] [place], [address] Potassium Normal 3.5-5.1 [facility] Comment on above: Result Comment: DUPL ICATE-CMP ORDERED Performed By: #### L 300.3900, L501.9985, L300.4310, L500.2500 ####[facility] [address] [place], [address] Basic Metabolic Profile (BMP) Normal 136-145 [facility] Comment on above: Result Comment: DUPL ICATE-CMP ORDERED Performed By: #### L 300.3900, L501.9985, L300.4310, L500.2500 ####[facility] [address] [place], [address] Bedside Glucoseon 03-12-2024 FINGERSTICK GLU 140 mg/dL High 74-106 [facility] Comment on above: Result Comment: KIMBERLY CAMPOS OF PATIENT CARE PER NURSING PROTOCOL Performed By: #### L 501.080 ####[facility] [address] [place], [address] Blood [facility]A TEST Positive Normal [facility] Comment on above: Performed By: #### L 9000.0800 ####[facility] [address] [place], [address] Base excess Calc (Bld) [Moles/Vol] 1 mmol/L Normal -2 to +2 [facility] Comment on above: Performed By: #### L 9000.0800 ####[facility] [address] [place], [address] Blood Gas Type ART Normal [facility] Comment on above: Performed By: #### L 9000.0800 ####[facility] [address] [place], [address] CO2 [Moles/Vol] 25 mmol/L Normal [facility] Comment on above: Performed By: #### L 9000.0800 ####[facility] [address] [place], [address] FI02 60.0 Normal [facility] Comment on above: Performed By: #### L 9000.0800 ####[facility] [address] [place], [address] HCO3 (Bld) [Moles/Vol] 24.4 mmol/L Normal 22-26 [facility] Comment on above: Performed By: #### L 0.0800 ####[facility] [address] [place], [address] Mode Not entered Normal [facility] Comment on above: Performed By: #### L 9000.0800 ####[facility] [address] [place], [address] O2 Delivery Dev airvo Normal [facility] Comment on above: Performed By: #### L 0.0800 ####[facility] [address] [place], [address] pCO2 32.5 mmHg Low 35-45 [facility] Comment on above: Performed By: #### L 9000.0800 ####[facility] [address] [place], [address] pH (Bld) 7.48 [pH] High 7.35-7.45 [facility] Comment on above: Performed By: #### L 8999.0800 ####[facility] [address] [place], [address] PO2 109 mmHG High 75-100 [facility] Comment on above: Performed By: #### L 0.0800 ####[facility] [address] [place], [address] SITE R Radial Normal [facility] Comment on above: Performed By: #### L 0.0800 ####[facility] [address] [place], [address] SO2 99 Normal 95-99 [facility] Comment on above: Performed By: #### L 9000.0800 ####[facility] [address] [place], [address] CBC W/Diff, Automatedon 10-0 3-2024 Absolute Lymph 0.94 X10 3/uL Normal 0.83-4.51 [facility] Comment on above: Performed By: #### L 501.9520, L500.4050, L506.0400, L100.0100 ####[facility] [address] [place], [address] Absolute Neut 15.9 X10 3/uL High 2.0-7.7 [facility] Comment on above: Performed By: #### L 501.9520, L500.4050, L506.0400, L100.0100 ####[facility] [address] [place], [address] Basophils/100 WBC (Bld) 0.1 % Normal 0-1 [facility] Comment on above: Performed By: #### L 501.9520, L500.4050, L506.0400, L100.0100 ####[facility] [address] [place], [address] Eosinophils/100 WBC (Bld) 0.0 % Normal 0-5 [facility] Comment on above: Performed By: #### L 501.9520, L500.4050, L506.0400, L100.0100 ####[facility] [address] [place], [address] Erythrocyte distribution width (RBC) [Ratio] 16.5 % High 11.6-14.6 [facility] Comment on above: Performed By: #### L 501.9520, L500.4050, L506.0400, L100.0100 ####[facility] [address] [place], [address] Hematocrit (Bld) [Volume fraction] 34.6 % Low 37-47 [facility] Comment on above: Performed By: #### L 501.9520, L500.4050, L506.0400, L100.0100 ####[facility] [address] [place], [address] Hemoglobin (Bld) [Mass/Vol] 11.4 g/dL Low 12.0-15.0 [facility] Comment on above: Performed By: #### L 501.9520, L500.4050, L506.0400, L100.0100 ####[facility] [address] [place], [address] IG% 0.400 Normal 0.0-0.9 [facility] Comment on above: Result Comment: IG% - Immature Granulocytes (promyelocytes, myelocytes andmetamyelocytes) > 1% indicates that a LEFT SHIFT is Present. Performed By: #### L 501.9520, L500.4050, L506.0400, L100.0100 ####[facility] [address] [place], [address] Lymphocytes/100 WBC (Bld) 5.3 % Low 19-41 [facility] Comment on above: Performed By: #### L 501.9520, L500.4050, L506.0400, L100.0100 ####[facility] [address] [place], [address] MCH (RBC) [Entitic mass] 30.6 pg Normal 27.0-32.0 [facility] Comment on above: Performed By: #### L 501.9520, L500.4050, L506.0400, L100.0100 ####[facility] [address] [place], [address] MCHC (RBC) [Mass/Vol] 32.9 g/dL Normal 32-36 [facility] Comment on above: Performed By: #### L 501.9520, L500.4050, L506.0400, L100.0100 ####[facility] [address] [place], [address] MCV (RBC) [Entitic vol] 93.0 fL Normal 81-99 [facility] Comment on above: Performed By: #### L 501.9520, L500.4050, L506.0400, L100.0100 ####[facility] [address] [place], [address] Monocytes/100 WBC (Bld) 5.2 % Normal 0-10 [facility] Comment on above: Performed By: #### L 501.9520, L500.4050, L506.0400, L100.0100 ####[facility] [address] [place], [address] Neutrophils/100 WBC (Bld) 89.0 % High 47-70 [facility] Comment on above: Performed By: #### L 501.9520, L500.4050, L506.0400, L100.0100 ####[facility] [address] [place], [address] Nucleated RBC (Bld) [#/Vol] 0 10*3/uL Normal 0-5 [facility] Comment on above: Performed By: #### L 501.9520, L500.4050, L506.0400, L100.0100 ####[facility] [address] [place], [address] Platelet mean volume (Bld) [Entitic vol] 10.3 fL Normal 6.2-12.0 [facility] Comment on above: Performed By: #### L 501.9520, L500.4050, L506.0400, L100.0100 ####[facility] [address] [place], [address] Platelets (Bld) [#/Vol] 185 10*3/uL Normal 150-450 [facility] Comment on above: Performed By: #### L 501.9520, L500.4050, L506.0400, L100.0100 ####[facility] [address] [place], [address] RBC (Bld) [#/Vol] 3.72 10*6/uL Low 4.2-5.4 [facility] Comment on above: Performed By: #### L 501.9520, L500.4050, L506.0400, L100.0100 ####[facility] [address] [place], [address] RDW SD 55.4 fl High 35.1-43.9 [facility] Comment on above: Performed By: #### L 501.9520, L500.4050, L506.0400, L100.0100 ####[facility] [address] [place], [address] WBC (Bld) [#/Vol] 17.8 10*3/uL High 4.4-11.0 [facility] Comment on above: Performed By: #### L 501.9520, L500.4050, L506.0400, L100.0100 ####[facility] [address] [place], [address] CPK Total, Creatine Kinaseon 03-12-2024 CPK TOTAL 218 U/L High 26-192 [facility] Comment on above: Performed By: #### L 501.3620, L300.4310 ####[facility] [address] [place], [address] Chest 1 View (Portable)on Chest 1 View (Portable) Normal [facility] Chest 1 View (Portable) Normal [facility] Comprehensive Metabolic Prof ilon 10-03-2024 Albumin [Mass/Vol] 2.6 g/dL Low 3.2-5.[address] [facility] Comment on above: Performed By: #### L 501.9520, L500.4050, L506.0400, L100.0100 ####[facility] [address] [place], [address] Albumin/Globulin [Mass ratio] 0.6 {ratio} Low 0.9-2.4 [facility] Comment on above: Performed By: #### L 501.9520, L500.4050, L506.0400, L100.0100 ####[facility] [address] [place], [address] ALK P 138 U/L High 45-117 [facility] Comment on above: Performed By: #### L 501.9520, L500.4050, L506.0400, L100.0100 ####[facility] [address] [place], [address] ALT [Catalytic activity/Vol] 30 U/L Normal 13-56 [facility] Comment on above: Performed By: #### L 501.9520, L500.4050, L506.0400, L100.0100 ####[facility] [address] [place], [address] AST [Catalytic activity/Vol] 33 U/L Normal 15-37 [facility] Comment on above: Performed By: #### L 501.9520, L500.4050, L506.0400, L100.0100 ####[facility] [address] [place], [address] Bilirubin [Mass/Vol] 0.30 mg/dL Normal 0.20-1.00 [facility] Comment on above: Result Comment: For patients on eltrombopag therapy, use of Dimension [place] TBIL is not recommended. Performed By: #### L 501.9520, L500.4050, L506.0400, L100.0100 ####[facility] [address] [place], [address] BUN/CRE 36.6 RATIO High 10-20 [facility] Comment on above: Performed By: #### L 501.9520, L500.4050, L506.0400, L100.0100 ####[facility] [address] [place], [address] CA,Total 9.1 mg/dL Normal 8.5-10.1 [facility] Comment on above: Performed By: #### L 501.9520, L500.4050, L506.0400, L100.0100 ####[facility] [address] [place], [address] Chloride [Moles/Vol] 108 mmol/L High 98-107 [facility] Comment on above: Performed By: #### L 501.9520, L500.4050, L506.0400, L100.0100 ####[facility] [address] [place], [address] CO2 [Moles/Vol] 23.0 mmol/L Normal 21.0-32.0 [facility] Comment on above: Performed By: #### L 501.9520, L500.4050, L506.0400, L100.0100 ####[facility] [address] [place], [address] Creatinine [Mass/Vol] 1.42 mg/dL High 0.55-1.02 [facility] Comment on above: Result Comment: The validity of the calculated GFR GFRAA in patients over70 years has not been determined. Clinical correlation isessential. Performed By: #### L 501.9520, L500.4050, L506.0400, L100.0100 ####[facility] [address] [place], [address] ECRCL 45.24 ml/min Normal [facility] Comment on above: Performed By: #### L 501.9520, L500.4050, L506.0400, L100.0100 ####[facility] [address] [place], [address] EST GFR - AA 46 mL/min Low >60 [facility] Comment on above: Result Comment: Afri can Togolese GFR Calc Performed By: #### L 501.9520, L500.4050, L506.0400, L100.0100 ####[facility] [address] [place], [address] GAP 9 Normal 5-15 [facility] Comment on above: Performed By: #### L 501.9520, L500.4050, L506.0400, L100.0100 ####[facility] [address] [place], [address] GFR/1.73 sq M.predicted among non-blacks MDRD (S/P/Bld) [Vol rate/Area] 38 mL/min/{1.73_m2} Low >60 [facility] Comment on above: Result Comment: Non- GFR Calc Performed By: #### L 501.9520, L500.4050, L506.0400, L100.0100 ####[facility] [address] [place], [address] Globulin (S) [Mass/Vol] 4.5 g/dL High 2.2-4.2 [facility] Comment on above: Performed By: #### L 501.9520, L500.4050, L506.0400, L100.0100 ####[facility] [address] [place], [address] Glucose [Mass/Vol] 140 mg/dL High 74-[address] [facility] Comment on above: Result Comment: Fast ing Glucose result greater than or equal to 126 mg/dLsuggests DIABETES MELLITUS per A.D.A. criteria. Performed By: #### L 501.9520, L500.4050, L506.0400, L100.0100 ####[facility] [address] [place], [address] Potassium [Moles/Vol] 4.2 mmol/L Normal 3.5-5.1 [facility] Comment on above: Performed By: #### L 501.9520, L500.4050, L506.0400, L100.0100 ####[facility] [address] [place], [address] Sodium [Moles/Vol] 140 mmol/L Normal 136-[address] [facility] Comment on above: Performed By: #### L 501.9520, L500.4050, L506.0400, L100.0100 ####[facility] [address] [place], [address] T PROT 7.1 g/dL Normal 6.4-8.2 [facility] Comment on above: Performed By: #### L 501.9520, L500.4050, L506.0400, L100.0100 ####[facility] [address] [place], [address] Urea nitrogen [Mass/Vol] 52 mg/dL High 7-18 [facility] Comment on above: Performed By: #### L 501.9520, L500.4050, L506.0400, L100.0100 ####[facility] [address] [place], [address] Consultation - Infectious Dx on 03-12-2024 Consultation - Infectious Dx Normal [facility] Consultation - Intensiviston 03-12-2024 Consultation - Game Advisor Normal [facility] HH, Hemoglobin AND Hematocri ton 03-12-2024 Hematocrit (Bld) [Volume fraction] 34.9 % Low 37-47 [facility] Comment on above: Performed By: #### L 100.0600 ####[facility] [address] [place], [place], [id number] Hemoglobin (Bld) [Mass/Vol] 11.8 g/dL Low 12.0-15.0 [facility] Comment on above: Performed By: #### L 100.0600 ####[facility] [address] [place], [address] Hemoglobin A1con 03-12-2024 HbA1c (Bld) [Mass fraction] 6.1 % High 3.8-5.6 [facility] Comment on above: Result Comment: Norm al < 5.7 % Prediabetic 5.7 - 6.4 % Diabetic >or= 6.5 % Please note range changes. Performed By: #### L 300.3900, L501.9985, L300.4310, L500.2500 ####[facility] [address] [place], [address] L3700.3000on 03-12-2024 PHENobarbital [Mass/Vol] 54 ug/mL Abnormal 15-40 [facility] Comment on above: Result Comment: Dete ction Limit = 3Patient drug level exceeds published reference range.Evaluate clinically for signs of potential toxicity.Performed at: - Lab[address] [id number] Director: Jose Vicente PhD, Phone: [phone] Performed By: #### L 3700.3000, L500.4050, L300.4310, L503.6005, L300.3900, L100.0100 ####[facility] [address] [place], [address] Lactic Acidon 03-12-2024 Lactate [Moles/Vol] 1.1 mmol/L Normal 0.4-1.9 [facility] Comment on above: Order Comment: Comme nts: if result >2, system reflex orders 2nd test @ 4hrsY Performed By: #### M 200.1000, L503.6005 ####[facility] [address] [place], [address] M8200.1000on 03-12-2024 M8200.1000 Normal [facility] Comment on above: Performed By: #### M 8200.1000 ####[facility] [address] [place], [address] MR/CON.PCM.GIon 03-12-2024 MR/CON.PCM.GI Normal [facility] MR/CON.PCM.NEon 03-12-2024 MR/CON.PCM.NE Normal [facility] Partial Thromboplast Timeon 03-12-2024 aPTT Coag (Bld) [Time] 48.9 s High 24.1-36.2 [facility] Comment on above: Performed By: #### L 501.3620, L300.4310 ####[facility] [address] [place], [address] aPTT Coag (Bld) [Time] 50.1 s High 24.1-36.2 [facility] Comment on above: Performed By: #### L 300.3900, L501.9985, L300.4310, L500.2500 ####[facility] [address] [place], [address] Prothrombin Time w/INRon INR Coag (PPP) [Relative time] 1.3 {INR} [facility] Comment on above: Performed By: #### L 300.3900, L501.9985, L300.4310, L500.2500 ####[facility] [address] [place], [address] PT Coag (PPP) [Time] 16.5 s High 11.7-14.9 [facility] Comment on above: Performed By: #### L 300.3900, L501.9985, L300.4310, L500.2500 ####[facility] [address] [place], [address] Strep pneumoniae Antig(UR,CS F)on 03-12-2024 STPAG Normal [facility] Comment on above: Performed By: #### M 300.1550 ####[facility] [address] [place], [address] T4 Free Directon 03-12-2024 T4 FREE DIRECT 1.07 ng/dL Normal 0.76-1.46 [facility] Comment on above: Performed By: #### L 501.9520, L500.4050, L506.0400, L100.0100 ####[facility] [address] [place], [address] Thyroid Stim Hormone (TSH)on 03-12-2024 TSH 0.431 uIU/mL Normal 0.358-3.740 [facility] Comment on above: Performed By: #### L 501.9520, L500.4050, L506.0400, L100.0100 ####[facility] [address] [place], [address] Venous Duplex US - Ambrose Extre mon 03-12-2024 Venous Duplex US - Ambrose Extrem Normal [facility] 12 Lead EKGon 03-11-2024 12 Lead EKG Normal [facility] BNP,B-Type NATRIURETIC PEPTI Chris 03-11-2024 Natriuretic peptide B (Bld) [Mass/Vol] 82.5 pg/mL Normal 0-100 [facility] Comment on above: Performed By: #### L 501.3620, L504.2610, L503.6620, L509.7000, L501.4020, L501.6710, L501.5200 ####[facility] [address] [place], [address] Brain/Head without Contrasto n 03-11-2024 Brain/Head without Contrast Normal [facility] CBC W/Diff, Automatedon 10-0 2-2024 Absolute Lymph 1.23 X10 3/uL Normal 0.83-4.51 [facility] Comment on above: Performed By: #### L 3700.3000, L500.4050, L300.4310, L503.6005, L300.3900, L100.0100 ####[facility] [address] [place], [address] Absolute Neut 7.5 X10 3/uL Normal 2.0-7.7 [facility] Comment on above: Performed By: #### L 3700.3000, L500.4050, L300.4310, L503.6005, L300.3900, L100.0100 ####[facility] [address] [place], [address] Basophils/100 WBC (Bld) 0.2 % Normal 0-1 [facility] [facility] Comment on above: Performed By: #### L 3700.3000, L500.4050, L300.4310, L503.6005, L300.3900, L100.0100 ####[facility] [address] [place], [address] Eosinophils/100 WBC (Bld) 0.1 % Normal 0-5 [facility] Comment on above: Performed By: #### L 3700.3000, L500.4050, L300.4310, L503.6005, L300.3900, L100.0100 ####[facility] [address] [place], [address] Erythrocyte distribution width (RBC) [Ratio] 16.4 % High 11.6-14.6 [facility] Comment on above: Performed By: #### L 3700.3000, L500.4050, L300.4310, L503.6005, L300.3900, L100.0100 ####[facility] [address] [place], [address] Hematocrit (Bld) [Volume fraction] 39.4 % Normal 37-47 [facility] Comment on above: Performed By: #### L 3700.3000, L500.4050, L300.4310, L503.6005, L300.3900, L100.0100 ####[facility] [address] [place], [address] Hemoglobin (Bld) [Mass/Vol] 12.9 g/dL Normal 12.0-15.0 [facility] Comment on above: Performed By: #### L 3700.3000, L500.4050, L300.4310, L503.6005, L300.3900, L100.0100 ####[facility] [address] [facility] [place], [address] IG% 0.700 Normal 0.0-0.9 [facility] Comment on above: Result Comment: IG% - Immature Granulocytes (promyelocytes, myelocytes andmetamyelocytes) > 1% indicates that a LEFT SHIFT is Present. Performed By: #### L 3700.3000, L500.4050, L300.4310, L503.6005, L300.3900, L100.0100 ####[facility] [address] [facility] [place], [address] Lymphocytes/100 WBC (Bld) 12.7 % Low 19-41 [facility] Comment on above: Performed By: #### L 3700.3000, L500.4050, L300.4310, L503.6005, L300.3900, L100.0100 ####[facility] [address] [place], [address] MCH (RBC) [Entitic mass] 30.5 pg Normal 27.0-32.0 [facility] Comment on above: Performed By: #### L 3700.3000, L500.4050, L300.4310, L503.6005, L300.3900, L100.0100 ####[facility] [address] [place], [address] MCHC (RBC) [Mass/Vol] 32.7 g/dL Normal 32-36 [facility] Comment on above: Performed By: #### L 3700.3000, L500.4050, L300.4310, L503.6005, L300.3900, L100.0100 ####[facility] [address] [place], [address] MCV (RBC) [Entitic vol] 93.1 fL Normal 81-99 [facility] Comment on above: Performed By: #### L 3700.3000, L500.4050, L300.4310, L503.6005, L300.3900, L100.0100 ####[facility] [address] [place], [address] Monocytes/100 WBC (Bld) 8.7 % Normal 0-10 [facility] Comment on above: Performed By: #### L 3700.3000, L500.4050, L300.4310, L503.6005, L300.3900, L100.0100 ####[facility] [address] [place], [address] Neutrophils/100 WBC (Bld) 77.6 % High 47-70 [facility] Comment on above: Performed By: #### L 3700.3000, L500.4050, L300.4310, L503.6005, L300.3900, L100.0100 ####[facility] [address] [place], [address] Nucleated RBC (Bld) [#/Vol] 0 10*3/uL Normal 0-5 [facility] Comment on above: Performed By: #### L 3700.3000, L500.4050, L300.4310, L503.6005, L300.3900, L100.0100 ####[facility] [address] [place], [address] Platelet mean volume (Bld) [Entitic vol] 10.5 fL Normal 6.2-12.0 [facility] Comment on above: Performed By: #### L 3700.3000, L500.4050, L300.4310, L503.6005, L300.3900, L100.0100 ####[facility] [address] [place], [address] Platelets (Bld) [#/Vol] 232 10*3/uL Normal 150-450 [facility] Comment on above: Performed By: #### L 3700.3000, L500.4050, L300.4310, L503.6005, L300.3900, L100.0100 ####[facility] [address] [place], [address] RBC (Bld) [#/Vol] 4.23 10*6/uL Normal 4.2-5.4 [facility] Comment on above: Performed By: #### L 3700.3000, L500.4050, L300.4310, L503.6005, L300.3900, L100.0100 ####[facility] [address] [place], [address] RDW SD 56.0 fl High 35.1-43.9 [facility] Comment on above: Performed By: #### L 3700.3000, L500.4050, L300.4310, L503.6005, L300.3900, L100.0100 ####[facility] [address] [place], [address] WBC (Bld) [#/Vol] 9.7 10*3/uL Normal 4.4-11.[address] [facility] Comment on above: Performed By: #### L 3700.3000, L500.4050, L300.4310, L503.6005, L300.3900, L100.0100 ####[facility] [address] [place], [address] CPK Total, Creatine Kinaseon 03-11-2024 CPK TOTAL 429 U/L High 26-192 [facility] Comment on above: Order Comment: 'TROP ' Serial specimen #1, #2 or #3: 1 Performed By: #### L 501.3620, L504.2610, L503.6620, L509.7000, L501.4020, L501.6710, L501.5200 ####[facility] [address] [place], [address] CRPon 03-11-2024 C-REACTIVE PROT 141.00 mg/L High 0.0-3.0 [facility] Comment on above: Order Comment: 'TROP ' Serial specimen #1, #2 or #3: 1 Result Comment: C-Re active Protein (CRP) provides useful information for thediagnosis, therapy and monitoring of inflammatory processesand associated diseases. For the evaluation of Relative Riskfor Cardiovascular Disease, a High Sensitivity CRP (HSCRP)should be ordered. Performed By: #### L 501.3620, L504.2610, L503.6620, L509.7000, L501.4020, L501.6710, L501.5200 ####[facility] [address] [place], [place], [id number] Chest 1 View (Portable)on Chest 1 View (Portable) Normal [facility] Comprehensive Metabolic Prof ilon 03-11-2024 Albumin [Mass/Vol] 3.3 g/dL Normal 3.2-5.[address] [facility] Comment on above: Performed By: #### L 3700.3000, L500.4050, L300.4310, L503.6005, L300.3900, L100.0100 ####[facility] [address] [place], [place], [id number] Albumin/Globulin [Mass ratio] 0.6 {ratio} Low 0.9-2.4 [facility] Comment on above: Performed By: #### L 3700.3000, L500.4050, L300.4310, L503.6005, L300.3900, L100.0100 ####[facility] [address] [place], [address] ALK P 170 U/L High 45-117 [facility] Comment on above: Performed By: #### L 3700.3000, L500.4050, L300.4310, L503.6005, L300.3900, L100.0100 ####[facility] [address] [place], [address] ALT [Catalytic activity/Vol] 40 U/L Normal 13-56 [facility] Comment on above: Performed By: #### L 3700.3000, L500.4050, L300.4310, L503.6005, L300.3900, L100.0100 ####[facility] [address] [place], [address] AST [Catalytic activity/Vol] 41 U/L High 15-37 [facility] Comment on above: Performed By: #### L 3700.3000, L500.4050, L300.4310, L503.6005, L300.3900, L100.0100 ####[facility] [address] [place], [address] Bilirubin [Mass/Vol] 0.30 mg/dL Normal 0.20-1.00 [facility] Comment on above: Result Comment: For patients on eltrombopag therapy, use of Dimension [place] TBIL is not recommended. Performed By: #### L 3700.3000, L500.4050, L300.4310, L503.6005, L300.3900, L100.0100 ####[facility] [address] [place], [address] BUN/CRE 27.0 RATIO High 10-20 [facility] Comment on above: Performed By: #### L 3700.3000, L500.4050, L300.4310, L503.6005, L300.3900, L100.0100 ####[facility] [address] [place], [address] CA,Total 10.6 mg/dL High 8.5-10.1 [facility] Comment on above: Performed By: #### L 3700.3000, L500.4050, L300.4310, L503.6005, L300.3900, L100.0100 ####[facility] [address] [place], [address] Chloride [Moles/Vol] 100 mmol/L Normal 98-107 [facility] Comment on above: Performed By: #### L 3700.3000, L500.4050, L300.4310, L503.6005, L300.3900, L100.0100 ####[facility] [address] [place], [address] CO2 [Moles/Vol] 31.0 mmol/L Normal 21.0-32.0 [facility] Comment on above: Performed By: #### L 3700.3000, L500.4050, L300.4310, L503.6005, L300.3900, L100.0100 ####[facility] [address] [place], [address] Creatinine [Mass/Vol] 1.26 mg/dL High 0.55-1.02 [facility] Comment on above: Result Comment: The validity of the calculated GFR GFRAA in patients over70 years has not been determined. Clinical correlation isessential. Performed By: #### L 3700.3000, L500.4050, L300.4310, L503.6005, L300.3900, L100.0100 ####[facility] [address] [place], [address] ECRCL 49.97 ml/min Normal [facility] Comment on above: Performed By: #### L 3700.3000, L500.4050, L300.4310, L503.6005, L300.3900, L100.0100 ####[facility] [address] [place], [address] EST GFR - AA 53 mL/min Low >60 [facility] Comment on above: Result Comment: Afri can [place] GFR Calc Performed By: #### L 3700.3000, L500.4050, L300.4310, L503.6005, L300.3900, L100.0100 ####[facility] [address] [place], [address] GAP 7 Normal 5-15 [facility] Comment on above: Performed By: #### L 3700.3000, L500.4050, L300.4310, L503.6005, L300.3900, L100.0100 ####[facility] [address] [place], [place], [phone](525) GFR/1.73 sq M.predicted among non-blacks MDRD (S/P/Bld) [Vol rate/Area] 44 mL/min/{1.73_m2} Low >60 [facility] Comment on above: Result Comment: Non- GFR Calc Performed By: #### L 3700.3000, L500.4050, L300.4310, L503.6005, L300.3900, L100.0100 ####[facility] [address] [place], [place], [phone]71) Globulin (S) [Mass/Vol] 5.3 g/dL High 2.2-4.2 [facility] Comment on above: Performed By: #### L 3700.3000, L500.4050, L300.4310, L503.6005, L300.3900, L100.0100 ####[facility] [address] [place], [address] Glucose [Mass/Vol] 108 mg/dL High 74-[address] [facility] Comment on above: Result Comment: Fast ing Glucose result from 100 to 125 mg/dLsuggests IMPAIRED HOMEOSTASIS per A.D.A. criteria. Performed By: #### L 3700.3000, L500.4050, L300.4310, L503.6005, L300.3900, L100.0100 ####[facility] [address] [place], [address] Potassium [Moles/Vol] 4.9 mmol/L Normal 3.5-5.1 [facility] Comment on above: Performed By: #### L 3700.3000, L500.4050, L300.4310, L503.6005, L300.3900, L100.0100 ####[facility] [address] [place], [address] Sodium [Moles/Vol] 138 mmol/L Normal 136-[address] [facility] Comment on above: Performed By: #### L 3700.3000, L500.4050, L300.4310, L503.6005, L300.3900, L100.0100 ####[facility] [address] [place], [address] T PROT 8.6 g/dL High 6.4-8.2 [facility] Comment on above: Performed By: #### L 3700.3000, L500.4050, L300.4310, L503.6005, L300.3900, L100.0100 ####[facility] [address] [place], [address] Urea nitrogen [Mass/Vol] 34 mg/dL High 7-18 [facility] Comment on above: Performed By: #### L 3700.3000, L500.4050, L300.4310, L503.6005, L300.3900, L100.0100 ####[facility] [address] [place], [address] Emergency Department Summary on 03-11-2024 Emergency Department Summary Normal [facility] Gastric, Occult Bloodon 10-0 GASTOC Normal Reference Ran ge = Negative UNABLE TO DETERMINE PH DUE TO COLOR OF SAMPLE Gastrocult- Occult Blood NEGATIVE Normal [facility] Comment on above: Performed By: #### M 100.678, M100.6950, L400.0001, M100.2200 ####[facility] [address] [place], [address] H AND P Exam - Hospitaliston 03-11-2024 H&P Exam - Hospitalist Normal [facility] HH, Hemoglobin AND Hematocri ton 03-11-2024 Hematocrit (Bld) [Volume fraction] 36.1 % Low 37-47 [facility] Comment on above: Performed By: #### L 100.0600 ####[facility] [address] [place], [address] Hemoglobin (Bld) [Mass/Vol] 12.1 g/dL Normal 12.0-15.0 [facility] Comment on above: Performed By: #### L 100.0600 ####[facility] [address] [place], [address] Hematocrit (Bld) [Volume fraction] 37.7 % Normal 37-[address] [place] [address] Comment on above: Performed By: #### L 100.0600 ####[facility] [address] [place], [address] Hemoglobin (Bld) [Mass/Vol] 12.1 g/dL Normal 12.0-15.0 [facility] Comment on above: Performed By: #### L 100.0600 ####[facility] [address] [place], [address] L501.4020on 03-11-2024 TROPONIN-I HS 25 pg/mL Normal 3.0-54.0 [facility] Comment on above: Order Comment: 'TROP ' Serial specimen #1, #2 or #3: 1 Result Comment: Colby cagle Note: New Test Units and Gender Specific Reference Ranges. For more information see Policy Stat Procedure [place] High Sensitivity Troponin (TNIH) and attachments. Performed By: #### L 501.3620, L504.2610, L503.6620, L509.7000, L501.4020, L501.6710, L501.5200 ####[facility] [address] [place], [address] LDHon 03-11-2024 LDH 250 U/L High 84-246 [facility] Comment on above: Order Comment: 'TROP ' Serial specimen #1, #2 or #3: 1 Performed By: #### L 501.3620, L504.2610, L503.6620, L509.7000, L501.4020, L501.6710, L501.5200 ####[facility] [address] [place], [address] Lactic Acidon 03-11-2024 Lactate [Moles/Vol] 1.8 mmol/L Normal 0.4-1.9 [facility] Comment on above: Order Comment: Y Performed By: #### L 3700.3000, L500.4050, L300.4310, L503.6005, L300.3900, L100.0100 ####[facility] [address] [place], [address] Legionella Antigen Urineon 1 LEGU Normal [facility] Comment on above: Performed By: #### M 300.4500 ####[facility] [address] [place], [address] M100.678on 03-11-2024 M100.678 Normal [facility] Comment on above: Performed By: #### M 100.678, M100.6950, L400.0001, M100.2200 ####[facility] [address] [place], [address] Magnesiumon 03-11-2024 Magnesium [Mass/Vol] 1.9 mg/dL Normal 1.6-2.6 [facility] Comment on above: Order Comment: 'TROP ' Serial specimen #1, #2 or #3: 1 Performed By: #### L 501.3620, L504.2610, L503.6620, L509.7000, L501.4020, L501.6710, L501.5200 ####[facility] [address] [place], [address] Partial Thromboplast Timeon 03-11-2024 aPTT Coag (Bld) [Time] 52.8 s High 24.1-36.2 [facility] Comment on above: Performed By: #### L 3700.3000, L500.4050, L300.4310, L503.6005, L300.3900, L100.0100 ####[facility] [address] [place], [address] Procalcitoninon 03-11-2024 Procalcitonin 0.15 ng/mL High 0.00-0.09 [facility] Comment on above: Result Comment: A pr [...] 501.3620, L504.2610, L503.6620, L509.7000, L501.4020, L501.6710, L501.5200 ####[facility] [address] [place], [address] Prothrombin Time w/INRon INR Coag (PPP) [Relative time] 1.3 {INR} Normal [facility] Comment on above: Performed By: #### L 3700.3000, L500.4050, L300.4310, L503.6005, L300.3900, L100.0100 ####[facility] [address] [place], [address] PT Coag (PPP) [Time] 16.4 s High 11.7-14.9 [facility] Comment on above: Performed By: #### L 3700.3000, L500.4050, L300.4310, L503.6005, L300.3900, L100.0100 ####[facility] [address] [place], [address] Urinalysis, Completeon 03-11 EPI,SQUAMOUS 0-5 SEEN Normal 5-10 [facility] Comment on above: Order Comment: COLLE CTOR TO SPECIFY Performed By: #### M 100.678, M100.6950, L400.0001, M100.2200 ####[facility] [address] [place], [address] RBC 0-5 SEEN Normal 0-5 [facility] Comment on above: Order Comment: MANNIE CTOR TO SPECIFY Performed By: #### M 100.678, M100.6950, L400.0001, M100.2200 ####[facility] [address] [place], [address] BACTERIA 3+ /hpf Normal None Seen [facility] Comment on above: Order Comment: COLLE CTOR TO SPECIFY Performed By: #### M 100.678, M100.6950, L400.0001, M100.2200 ####[facility] [address] [place], [address] WBC 10-25 SEEN Normal 0-5 [facility] Comment on above: Order Comment: COLLE CTOR TO SPECIFY Performed By: #### M 100.678, M100.6950, L400.0001, M100.2200 ####[facility] [address] [place], [address] Mucus Ql (Urine sed) 0 SEEN Normal [facility] Comment on above: Order Comment: MANNIE CTOR TO SPECIFY Performed By: #### M 100.678, M100.6950, L400.0001, M100.2200 ####[facility] [address] [place], [address] L3700.3000on 02-28-2024 PHENobarbital [Mass/Vol] 56 ug/mL Abnormal 15-40 [facility] Comment on above: Order Comment: 104.2 Result Comment: Dete ction Limit = 3Patient drug level exceeds published reference range.Evaluate clinically for signs of potential toxicity.Performed at: [facility] [address] [id number] Director: Jose Vicente PhD, Phone: [phone] Performed By: #### L 500.4050, L3700.3000, L100.0500, L501.1148 ####[facility] [address] [place], [address] CBC-Complete Blood Cnt No Di ffon 02-27-2024 Erythrocyte distribution width (RBC) [Ratio] 16.0 % High 11.6-14.6 [facility] Comment on above: Order Comment: 104.2 Performed By: #### L 500.4050, L3700.3000, L100.0500, L501.9520 ####[facility] [address] [place], [address] Hematocrit (Bld) [Volume fraction] 39.2 % Normal 37-47 [facility] Comment on above: Order Comment: 104.2 Performed By: #### L 500.4050, L3700.3000, L100.0500, L501.9520 ####[facility] [address] [place], [address] Hemoglobin (Bld) [Mass/Vol] 12.9 g/dL Normal 12.0-15.0 [facility] Comment on above: Order Comment: 104.2 Performed By: #### L 500.4050, L3700.3000, L100.0500, L501.9520 ####[facility] [address] [place], [address] MCH (RBC) [Entitic mass] 31.2 pg Normal 27.0-32.0 [facility] Comment on above: Order Comment: 104.2 Performed By: #### L 500.4050, L3700.3000, L100.0500, L501.9520 ####[facility] [address] [place], [address] MCHC (RBC) [Mass/Vol] 32.9 g/dL Normal 32-36 [facility] Comment on above: Order Comment: 104.2 Performed By: #### L 500.4050, L3700.3000, L100.0500, L501.9520 ####[facility] [address] [place], [address] MCV (RBC) [Entitic vol] 94.9 fL Normal 81-99 [facility] Comment on above: Order Comment: 104.2 Performed By: #### L 500.4050, L3700.3000, L100.0500, L501.9520 ####[facility] [address] [place], [address] Platelet mean volume (Bld) [Entitic vol] 10.9 fL Normal 6.2-12.0 [facility] Comment on above: Order Comment: 104.2 Performed By: #### L 500.4050, L3700.3000, L100.0500, L501.9520 ####[facility] [address] [place], [address] Platelets (Bld) [#/Vol] 262 10*3/uL Normal 150-450 [facility] Comment on above: Order Comment: 104.2 Performed By: #### L 500.4050, L3700.3000, L100.0500, L501.9520 ####[facility] [address] [place], [address] RBC (Bld) [#/Vol] 4.13 10*6/uL Low 4.2-5.4 [facility] Comment on above: Order Comment: 104.2 Performed By: #### L 500.4050, L3700.3000, L100.0500, L501.9520 ####[facility] [address] [place], [address] RDW SD 55.9 fl High 35.1-43.9 [facility] Comment on above: Order Comment: 104.2 Performed By: #### L 500.4050, L3700.3000, L100.0500, L501.9520 ####[facility] [address] [place], [address] WBC (Bld) [#/Vol] 7.9 10*3/uL Normal 4.4-11.[address] [facility] Comment on above: Order Comment: 104.2 Performed By: #### L 500.4050, L3700.3000, L100.0500, L501.9520 ####[facility] [address] [place], [address] Comprehensive Metabolic Prof ilon 02-27-2024 Albumin [Mass/Vol] 3.6 g/dL Normal 3.2-5.[address] [facility] Comment on above: Order Comment: 104.2 Performed By: #### L 500.4050, L3700.3000, L100.0500, L501.9520 ####[facility] [address] [place], [address] Albumin/Globulin [Mass ratio] 0.8 {ratio} Low 0.9-2.4 [facility] Comment on above: Order Comment: 104.2 Performed By: #### L 500.4050, L3700.3000, L100.0500, L501.9520 ####[facility] [address] [place], [address] ALK P 154 U/L High 45-117 [facility] Comment on above: Order Comment: 104.2 Performed By: #### L 500.4050, L3700.3000, L100.0500, L501.9520 ####[facility] [address] [place], [address] ALT [Catalytic activity/Vol] 43 U/L Normal 13-56 [facility] Comment on above: Order Comment: 104.2 Performed By: #### L 500.4050, L3700.3000, L100.0500, L501.9520 ####[facility] [address] [place], [address] AST [Catalytic activity/Vol] 35 U/L Normal 15-37 [facility] Comment on above: Order Comment: 104.2 Performed By: #### L 500.4050, L3700.3000, L100.0500, L501.9520 ####[facility] [address] [place], [address] Bilirubin [Mass/Vol] 0.20 mg/dL Normal 0.20-1.00 [facility] Comment on above: Order Comment: 104.2 Result Comment: For patients on eltrombopag therapy, use of Dimension [place] TBIL is not recommended. Performed By: #### L 500.4050, L3700.3000, L100.0500, L501.9520 ####[facility] [address] [place], [address] BUN/CRE 26.1 RATIO High 10-20 [facility] Comment on above: Order Comment: 104.2 Performed By: #### L 500.4050, L3700.3000, L100.0500, L501.9520 ####[facility] [address] [place], [address] CA,Total 10.4 mg/dL High 8.5-10.1 [facility] Comment on above: Order Comment: 104.2 Performed By: #### L 500.4050, L3700.3000, L100.0500, L501.9520 ####[facility] [address] [place], [address] Chloride [Moles/Vol] 101 mmol/L Normal 98-107 [facility] Comment on above: Order Comment: 104.2 Performed By: #### L 500.4050, L3700.3000, L100.0500, L501.9520 ####[facility] [address] [place], [address] CO2 [Moles/Vol] 25.0 mmol/L Normal 21.0-32.0 [facility] Comment on above: Order Comment: 104.2 Performed By: #### L 500.4050, L3700.3000, L100.0500, [id number] ####[facility] [address] [place], [address] Creatinine [Mass/Vol] 0.96 mg/dL Normal 0.55-1.02 [facility] Comment on above: Order Comment: 104.2 Result Comment: The validity of the calculated GFR GFRAA in patients over70 years has not been determined. Clinical correlation isessential. Performed By: #### L 500.4050, L3700.3000, L100.0500, [id number] ####[facility] [address] [place], [address] EST GFR - AA 73 mL/min Normal >60 [facility] Comment on above: Order Comment: 104.2 Result Comment: Afri can Togolese GFR Calc Performed By: #### L 500.4050, L3700.3000, L100.0500, L501.9520 ####[facility] [address] [place], [address] GAP 10 Normal 5-15 [facility] Comment on above: Order Comment: 104.2 Performed By: #### L 500.4050, L3700.3000, L100.0500, L501.9520 ####[facility] [address] [place], [address] GFR/1.73 sq M.predicted among non-blacks MDRD (S/P/Bld) [Vol rate/Area] 61 mL/min/{1.73_m2} Normal >60 [facility] Comment on above: Order Comment: 104.2 Result Comment: Non- GFR Calc Performed By: #### L 500.4050, L3700.3000, L100.0500, L501.9520 ####[facility] [address] [place], [address] Globulin (S) [Mass/Vol] 4.7 g/dL High 2.2-4.2 [facility] Comment on above: Order Comment: 104.2 Performed By: #### L 500.4050, L3700.3000, L100.0500, L501.9520 ####[facility] [address] [place], [address] Glucose [Mass/Vol] 110 mg/dL High 74-[address] [facility] Comment on above: Order Comment: 104.2 Result Comment: Fast ing Glucose result from 100 to 125 mg/dLsuggests IMPAIRED HOMEOSTASIS per A.D.A. criteria. Performed By: #### L 500.4050, L3700.3000, L100.0500, L501.9520 ####[facility] [address] [place], [address] Potassium [Moles/Vol] 3.9 mmol/L Normal 3.5-5.1 [facility] Comment on above: Order Comment: 104.2 Performed By: #### L 500.4050, L3700.3000, L100.0500, L501.9520 ####[facility] [address] [place], [address] Sodium [Moles/Vol] 136 mmol/L Normal 136-[address] [facility] Comment on above: Order Comment: 104.2 Performed By: #### L 500.4050, L3700.3000, L100.0500, L501.9520 ####[facility] [address] [place], [address] T PROT 8.3 g/dL High 6.4-8.2 [facility] Comment on above: Order Comment: 104.2 Performed By: #### L 500.4050, L3700.3000, L100.0500, L501.9520 ####[facility] [address] [place], [address] Urea nitrogen [Mass/Vol] 25 mg/dL High 7-18 [facility] Comment on above: Order Comment: 104.2 Performed By: #### L 500.4050, L3700.3000, L100.0500, L501.9520 ####[facility] [address] [place], [address] Thyroid Stim Hormone (TSH)on 02-27-2024 TSH 0.794 uIU/mL Normal 0.358-3.740 [facility] Comment on above: Order Comment: 104.2 Performed By: #### L 500.4050, L3700.3000, L100.0500, L501.9520 ####[facility] [address] [place], [address] Basic Metabolic Profon 02-10 Anion gap [Moles/Vol] 13 mmol/L Normal 9-16 [facility] Comment on above: Performed By: #### C BC, BMP #### [facility] [address] [place] [address] Concrete Finisher Apprentice: Lc Saldaña MD BUN/CRE Ratio 28 High 9-20 [facility] Comment on above: Performed By: #### C BC, BMP #### [facility] [address] [place], [place] [id number] Concrete Finisher Apprentice: Lc Saldaña MD Calcium [Mass/Vol] 9.9 mg/dL Normal 8.6-10.4 [facility] Comment on above: Performed By: #### C BC, BMP #### [facility] [address] [place], [place] [id number] Concrete Finisher Apprentice: Lc Saldaña MD Chloride [Moles/Vol] 101 mmol/L Normal 98-107 [facility] Comment on above: Performed By: #### C BC, BMP #### [facility] [address] [place], [place] [id number] Concrete Finisher Apprentice: Lc Saldaña MD CO2 [Moles/Vol] 26 mmol/L Normal 20-31 [facility] Comment on above: Performed By: #### C BC, BMP #### [facility] [address] [place] [address] Concrete Finisher Apprentice: Lc Saldaña MD Creatinine [Mass/Vol] 0.6 mg/dL Normal 0.50-0.90 [facility] Comment on above: Performed By: #### C BC, BMP #### [facility] [address] [place] [address] Concrete Finisher Apprentice: Lc Saldaña MD GFR/1.73 sq M.predicted among non-blacks MDRD (S/P/Bld) [Vol rate/Area] mL/min/{1.73_m2} Normal >60 [facility] Comment on above: Result Comment: These [...] Performed By: #### C ANA, BMP #### [address] [place] [address] Concrete Finisher Apprentice: Lc Saldaña MD Glucose [Mass/Vol] 103 mg/dL High 74-99 [facility] Comment on above: Performed By: #### C ANA, BMP #### [address] [place] [address] Concrete Finisher Apprentice: Lc Saldaña MD Potassium [Moles/Vol] 3.7 mmol/L Normal 3.7-5.3 [facility] Comment on above: Performed By: #### C ANA, BMP #### [address] [place] [address] Concrete Finisher Apprentice: Lc Saldaña MD Sodium [Moles/Vol] 140 mmol/L Normal 136-145 [facility] Comment on above: Performed By: #### C ANA, BMP #### [facility] [address] [place] [address] Concrete Finisher Apprentice: Lc Saldaña MD Urea nitrogen [Mass/Vol] 17 mg/dL Normal 8-23 [facility] Comment on above: Performed By: #### C ANA, BMP #### [facility] [place], [place] [id number] Concrete Finisher Apprentice: Lc Saldaña MD CBCon 02-11-2024 Erythrocyte distribution width (RBC) [Ratio] 15.8 % High 11.8-14.4 [facility] Comment on above: Performed By: #### C BC, BMP #### [address] [place] [address] Concrete Finisher Apprentice: Lc Saldaña MD Hematocrit (Bld) [Volume fraction] 39.2 % Normal 36.3-47.1 [facility] Comment on above: Performed By: #### C BC, BMP #### [address] [place], [place] [id number] Concrete Finisher Apprentice: Lc Saldaña MD Hemoglobin (Bld) [Mass/Vol] 13.2 g/dL Normal 11.9-15.1 [facility] Comment on above: Performed By: #### C BC, BMP #### [address] [place], [place] [id number] Concrete Finisher Apprentice: Lc Saldaña MD MCH (RBC) [Entitic mass] 31.4 pg Normal 25.2-33.5 [facility] Comment on above: Performed By: #### C BC, BMP #### [address] [place] [address] Concrete Finisher Apprentice: Lc Saldaña MD MCHC (RBC) [Mass/Vol] 33.7 g/dL Normal 28.4-34.8 [facility] Comment on above: Performed By: #### C BC, BMP #### [address] [place], [place] [address] Concrete Finisher Apprentice: Lc Saldaña MD MCV (RBC) [Entitic vol] 93.3 fL Normal 82.6-102.9 [facility] Comment on above: Performed By: #### C BC, BMP #### [address] [place] [address] Concrete Finisher Apprentice: Lc Saldaña MD NRBC Automated 0.0 per 100 WBC Normal 0.0 [facility] Comment on above: Performed By: #### C BC, BMP #### [facility] [address] [place] [address] Concrete Finisher Apprentice: Lc Saldaña MD Platelet mean volume (Bld) [Entitic vol] 9.6 fL Normal 8.1-13.5 [facility] Comment on above: Performed By: #### C ANA, BMP #### [facility] [address] [place] [address] Concrete Finisher Apprentice: Lc Saldaña MD Platelets (Bld) [#/Vol] 215 10*3/uL Normal 138-453 [facility] Comment on above: Performed By: #### C ANA, BMP #### [facility] [address] [place] [address] Concrete Finisher Apprentice: Lc Saldaña MD RBC (Bld) [#/Vol] 4.20 10*6/uL Normal 3.95-5.11 [facility] Comment on above: Performed By: #### C ANA, BMP #### [facility] [address] [place] [address] Concrete Finisher Apprentice: Lc Saldaña MD WBC (Bld) [#/Vol] 8.0 10*3/uL Normal 3.5-11.3 [facility] Comment on above: Performed By: #### C ANA, BMP #### [facility] [address] [place] [address] Concrete Finisher Apprentice: Lc Saldaña MD Basophil percentageOrdered B y: Panda Littlejohn on 09-03-2023 Basophil percentage 40.4 ug/mL 10.0-40.0 [facility] Comment on above: Critical Result(s) C alled at: 10:59:16 09/03/2023 by: Jamey Hayward. Dayton Camacho RN ([facility]). Results read back by same.Phenobarbital concentrations greater than 40.0 ug/mL arepotentially toxic. Hemoglobin (Bld) [Mass/Vol] 13.0 g/dL 12.0-15.0 [facility] WBC (Bld) [#/Vol] 6.5 10*3/uL 4.4-11.[address] [facility] Determination of erythrocyte mean corpuscular volume (MCV)Ordered By: Panda Littlejohn on 09-03-2023 MCV (RBC) [Entitic vol] 94.0 fL 81-99 [facility] Erythrocyte distribution wid th ratioOrdered By: Panda Littlejohn on 09-03-2023 Erythrocyte distribution width (RBC) [Ratio] 14.8 % 11.6-14.6 [facility] Erythrocyte distribution wid th standard deviationOrdered By: Panda Littlejohn on 09-03-2023 Erythrocyte distribution width (RBC) [Entitic vol] 51.3 fL 35.1-43.9 [facility] Hematocrit Auto (Bld) [Volum e fraction]Ordered By: Panda Littlejohn on 09-03-2023 Hematocrit (Bld) [Volume fraction] 39.5 % 37-47 [facility] Laboratory - Hematology and Cell countsOrdered By: Panda Littlejohn on 09-03-2023 MCH (RBC) [Entitic mass] 31.0 pg 27.0-32.0 [facility] MCHC (RBC) [Mass/Vol] 32.9 g/dL 32-36 [facility] Platelet mean volume (Bld) [Entitic vol] 10.2 fL 6.2-12.0 [facility] Platelets (Bld) [#/Vol] 254 10*3/uL 150-450 [facility] RBC Auto (Bld) [#/Vol]Ordere d By: Panda Littlejohn on 09-03-2023 RBC (Bld) [#/Vol] 4.20 10*6/uL 4.2-5.4 [facility] Basophil percentageOrdered B y: Richa Daniels on 05-27-2023 Chloride [Moles/Vol] 103 mmol/L 98-107 [facility] Cholesterol [Mass/Vol] 200 mg/dL <200 [facility] Comment on above: <200 mg/dL Desirable 200-240 mg/dL Borderline >240 mg/dL High Risk Glucose [Mass/Vol] 95 mg/dL 74-[address] [facility] Potassium [Moles/Vol] 3.9 mmol/L 3.5-5.1 [facility] Sodium [Moles/Vol] 138 mmol/L 136-[address] [facility] Triglyceride [Mass/Vol] 66 mg/dL <199 [facility] Comment on above: The drugs N-Acetylcy steine and Metamizole may falsely depress this assay.Serum Triglycerides Reference Interval Normal <150 mg/dL Borderline high 150 - 199 mg/dL High 200 - 499 mg/dL Very High > or = 500 mg/dL Laboratory - Chemistry and C hemistry - challengeOrdered By: Richa Daniels on 05-27-2023 ALT [Catalytic activity/Vol] 28 U/L 13-56 [facility] CO2 [Moles/Vol] 30.0 mmol/L 21.0-32.0 [facility] T4 [Mass/Vol] 8.8 ug/dL 4.8-13.9 [facility] Urea nitrogen/Creatinine [Mass ratio] 35.4 mg/mg 10-20 [facility] No Panel InformationOrdered By: Richa Daniels on 05-27-2023 Estimated GFR (MDRD) Amer 135 mL/min >60 [facility] Comment on above: GFR Calc Estimated GFR (MDRD) Non-Af Amer 111 mL/min >60 [facility] Comment on above: Non- GFR Calc Thyroid Stimulating Hormone (TSH) 1.99 uIU/mL 0.358-3.74 [facility] Urine Microalbumin/Creatinine Ratio 15.0 mg/g CRE <30 [facility] Serum or plasma calcium jerod urement (mass/volume)Ordered By: Richa Daniels on 05-27-2023 Calcium [Mass/Vol] 9.0 mg/dL 8.5-10.[address] [facility] Serum or plasma cholesterol in HDL measurement (mass/volume)Ordered By: Richa Daniels on 05-27-2023 Cholesterol in HDL [Mass/Vol] 91 mg/dL >40 [facility] Comment on above: The drugs N-Acetylcy steine and Metamizole may falsely depress this assay. Reference Range HDL <40 mg/dL Low HDL Cholesterol HDL >or= 60 mg/dL High HDL Cholesterol Serum or plasma cholesterol in VLDL measurement (mass/volume)Ordered By: Richa Daniels on 05-27-2023 Cholesterol in VLDL [Mass/Vol] 13 mg/dL 5-40 [facility] Serum or plasma creatinine m easurement (mass/volume)Ordered By: Richa Daniels on 05-27-2023 Creatinine [Mass/Vol] 0.56 mg/dL 0.55-1.02 [facility] Comment on above: The validity of the calculated GFR & GFRAA in patients over 70 years has not been determined. Clinical correlation is essential. Serum or plasma low density lipoprotein (LDL) cholesterol measurement (mass/volume)Ordered By: Richa Daniels on 05-27-2023 Cholesterol in LDL [Mass/Vol] 96 mg/dL 0-130 [facility] Serum or plasma urea nitroge n measurement (mass/volume)Ordered By: Richa Daniels on 05-27-2023 Urea nitrogen [Mass/Vol] 20 mg/dL 7-18 [facility] Thin prep Papanicolaou smear with manual screeningOrdered By: Richa Daniels on 05-27-2023 Thin prep Papanicolaou smear with manual screening 25 U/L 15-37 [facility] Thin prep Papanicolaou smear with manual screening 5 5-15 [facility] Thin prep Papanicolaou smear with manual screening 5.7 mg/L NO RANGE EST. [facility] Urine creatinine measurement (mass/volume)Ordered By: Richa Daniels on 05-27-2023 Creatinine (U) [Mass/Vol] 38.00 mg/dL NO RANGE EST. [facility] Absolute lymphocyte counton 05-25-2022 Lymphocytes Auto (Unsp spec) [#/Vol] 2.17 10*3/uL 0.83-4.51 [facility] Work Phone: Basophil percentageon 2021 Basophils/100 WBC (Bld) 0.5 % 0-1 [facility] Work Phone: Bilirubin [Mass/Vol] 0.20 mg/dL 0.20-1.00 [facility] Work Phone: Comment on above: For patients on eltr ombopag therapy, use of Dimension [place] TBIL is not recommended. Chloride [Moles/Vol] 97 mmol/L 98-107 [facility] Work Phone: Cholesterol [Mass/Vol] 210 mg/dL <200 [facility] Work Phone: Comment on above: <200 mg/dL Desirable 200-240 mg/dL Borderline >240 mg/dL High Risk Eosinophils/100 WBC (Bld) 2.8 % 0-5 [facility] Work Phone: Glucose [Mass/Vol] 94 mg/dL 74-[address] [facility] Work Phone: Neutrophils (Bld) [#/Vol] 5.8 10*3/uL 2.0-7.7 [facility] Work Phone: Neutrophils/100 WBC (Bld) 63.9 % 47-70 [facility] Work Phone: Potassium [Moles/Vol] 4.3 mmol/L 3.5-5.1 [facility] Work Phone: Protein [Mass/Vol] 7.5 g/dL 6.4-8.[address] [facility] Work Phone: Sodium [Moles/Vol] 133 mmol/L 136-[address] [facility] Work Phone: Triglyceride [Mass/Vol] 62 mg/dL <199 [facility] Work Phone: Comment on above: The drugs N-Acetylcy steine and Metamizole may falsely depress this assay.Serum Triglycerides Reference Interval Normal <150 mg/dL Borderline high 150 - 199 mg/dL High 200 - 499 mg/dL Very High > or = 500 mg/dL WBC (Bld) [#/Vol] 9.2 10*3/uL 4.4-11.[address] [facility] Work Phone: Blood erythrocytes count (nu mber/volume)on 05-25-2022 RBC (Bld) [#/Vol] 4.06 10*6/uL 4.2-5.4 [facility] Work Phone: Blood hemoglobin measurement (mass/volume)on 05-25-2022 Hemoglobin (Bld) [Mass/Vol] 12.4 g/dL 12.0-15.0 [facility] Work Phone: Blood lymphocytes/100 leukoc yteson 05-25-2022 Lymphocytes/100 WBC (Bld) 23.7 % 19-41 [facility] Work Phone: Blood monocytes/100 leukocyt eson 05-25-2022 Monocytes/100 WBC (Bld) 8.7 % 0-10 [facility] Work Phone: Blood platelet mean volumeon 05-25-2022 Platelet mean volume (Bld) [Entitic vol] 9.7 fL 6.2-12.0 [facility] Work Phone: Determination of erythrocyte mean corpuscular volume (MCV)on 05-25-2022 MCV (RBC) [Entitic vol] 96.8 fL 81-99 [facility] Work Phone: Hematocrit Auto (Bld) [Volum e fraction]on 05-25-2022 Hematocrit (Bld) [Volume fraction] 39.3 % 37-47 [facility] Work Phone: Laboratory - Chemistry and C hemistry - challengeon 05-25-2022 ALP [Catalytic activity/Vol] 134 U/L 45-117 [facility] Work Phone: ALT [Catalytic activity/Vol] 27 U/L 13-56 [facility] Work Phone: CO2 [Moles/Vol] 31.0 mmol/L 21.0-32.0 [facility] Work Phone: Free T4 [Mass/Vol] 1.19 ng/dL 0.76-1.[address] [facility] Work Phone: Globulin (S) [Mass/Vol] 4.1 g/dL 2.2-4.2 [facility] Work Phone: Urea nitrogen/Creatinine [Mass ratio] 33.4 mg/mg 10-20 [facility] Work Phone: Laboratory - Hematology and Cell countson 05-25-2022 Erythrocyte distribution width (RBC) [Entitic vol] 54.1 fL 35.1-43.9 [facility] Work Phone: Erythrocyte distribution width (RBC) [Ratio] 15.1 % 11.6-14.6 [facility] Work Phone: Immature granulocytes/100 WBC (Bld) 0.400 % 0.0-0.9 [facility] Work Phone: Comment on above: IG% - Immature Granu locytes (promyelocytes, myelocytes and metamyelocytes) > 1% indicates that a LEFT SHIFT is Present. MCH (RBC) [Entitic mass] 30.5 pg 27.0-32.0 [facility] Work Phone: Nucleated RBC/100 WBC (Bld) [Ratio] 0 % 0-5 [facility] Work Phone: MCHC Auto (RBC) [Mass/Vol]on 05-25-2022 MCHC (RBC) [Mass/Vol] 31.6 g/dL 32-36 [facility] Work Phone: No Panel Informationon 05-25 Estimated GFR (MDRD) Amer 143 mL/min >60 [facility] Work Phone: Comment on above: GFR Calc Estimated GFR (MDRD) Non-Af Amer 118 mL/min >60 [facility] Work Phone: Comment on above: Non- GFR Calc Thyroid Stimulating Hormone (TSH) 1.53 uIU/mL 0.358-3.74 [facility] Work Phone: Platelets bldon 05-25-2022 Platelets (Bld) [#/Vol] 333 10*3/uL 150-450 [facility] Work Phone: Serum or plasma albumin jerod urement (mass/volume)on 05-25-2022 Albumin [Mass/Vol] 3.4 g/dL 3.2-5.[address] [facility] Work Phone: Serum or plasma albumin/glob ulin mass ratioon 05-25-2022 Albumin/Globulin [Mass ratio] 0.8 {ratio} 0.9-2.4 [facility] Work Phone: Serum or plasma calcium jerod urement (mass/volume)on 05-25-2022 Calcium [Mass/Vol] 9.1 mg/dL 8.5-10.[address] [facility] Work Phone: Serum or plasma cholesterol in HDL measurement (mass/volume)on 05-25-2022 Cholesterol in HDL [Mass/Vol] 97 mg/dL >40 [facility] Work Phone: Comment on above: The drugs N-Acetylcy steine and Metamizole may falsely depress this assay. Reference Range HDL <40 mg/dL Low HDL Cholesterol HDL >or= 60 mg/dL High HDL Cholesterol Serum or plasma cholesterol in VLDL measurement (mass/volume)on 05-25-2022 Cholesterol in VLDL [Mass/Vol] 12 mg/dL 5-40 [facility] Work Phone: Serum or plasma creatinine m easurement (mass/volume)on 05-25-2022 Creatinine [Mass/Vol] 0.54 mg/dL 0.55-1.02 [facility] Work Phone: Comment on above: The validity of the calculated GFR & GFRAA in patients over 70 years has not been determined. Clinical correlation is essential. Serum or plasma low density lipoprotein (LDL) cholesterol measurement (mass/volume)on 05-25-2022 Cholesterol in LDL [Mass/Vol] 101 mg/dL 0-130 [facility] Work Phone: Serum or plasma urea nitroge n measurement (mass/volume)on 05-25-2022 Urea nitrogen [Mass/Vol] 18 mg/dL 7-18 [facility] Work Phone: Thin prep Papanicolaou smear with manual screeningon 05-25-2022 Thin prep Papanicolaou smear with manual screening 18 U/L 15-37 [facility] Work Phone: Thin prep Papanicolaou smear with manual screening 5 5-15 [facility] Work Phone: CNPNon 02-01-2021 CNPN Telephone ([employer]) ADRIENNE MORRISON ([id number]) 1950 F NFR Date Time Provider Department [...] ask for a return call. Travis Smith SMOKING PIPE MAKER 02/01/2021 3:31 PM Signed Spoke with pt. [...] - Intolerance STEROIDS (BETAMETHASONE DIPROPION*02/06/2010 TYLENOL COLD (KDM-[id number]-BP-AC*1 5 - Intolerance VALIUM (DIAZEPAM) 03/30/2005 5 [...] by TRAVIS SMITH LPN on 02/01/21 Normal [facility] CNPGeorgiana 01-02-2021 CNPN Telephone (GENSWS) ADRIENNE MORRISON ([id number]) 1950 F NFR Date Time Provider Department 01/02/21 DIA BERRY During your visit today, we recorded the following information about you: Dia Berry PA-C 01/02/2021 7:59 PM Signed Patient requesting op and path reports from [facility] be sent to referring physician Dr. [...] - Intolerance STEROIDS (BETAMETHASONE DIPROPION*02/06/2010 TYLENOL COLD (COG-[id number]-IY-AC*1 5 - Intolerance VALIUM (DIAZEPAM) 03/30/2005 5 [...] Status:Closed by JALYN STEWART MA on 01/05/21 [facility] 11-29-2020 [facility] Telephone ([employer]) ADRIENNE MORRISON ([id number]) 1950 F NFR Date Time Provider Department 11/29/20 YARED TENORIO During your visit today, we recorded the following information about you: Amelie Del Rio 12/02/2020 9:30 AM Addendum 12-19-2020 Colon EGD [facility] SURGICAL PHONE NOTE Date of Procedure/Surgery: 12-19-2020 Procedure/Surgery Type: EGD COLONOSCOPY ? SEDATION:MAC Location of Planned Procedure/Surgery: ? [facility] Surgery/Procedure Ordered: Yes COVID Testing Required: (FOR MAC CASES AND ASC PROCEDURES OTHER THAN COLON AND EGD): No Pre-Op Clearance Needed: No Prep Ordered:Yes: MIRALAX/DULCOLAX Prep Instructions given:Yes: Given in the office. Referral Completed:Entered for [facility]. Patient Diabetic:No. 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 Communication Limitations: No Allergies As [...] - Intolerance STEROIDS (BETAMETHASONE DIPROPION*02/06/2010 TYLENOL COLD (NKI-[id number]-DS-AC*1 5 - Intolerance VALIUM (DIAZEPAM) 03/30/2005 5 - Intolerance VICODIN (HYDROCODONE-ACETAMINO PHE*03/30/2005 5 - Intolerance Date Reviewed: 11/28/2020 Reviewed by: Dia Berry PA-C - Fully Assessed Reason for Visit: [facility] [Other] Prescriptions as of 12/26/2020 - escitalopram [...] by AMELIE DEL RIO on 12/26/20 Normal [facility] CNPNon 11-25-2020 CNPN Telephone (GENSWS) ADRIENNE MORRISON ([id number]) 1950 F NFR Date Time Provider Department 11/25/20 YARED TENORIO GENSWS During your visit today, we recorded the following information about you: Amelie Del Rio 11/25/2020 11:48 AM Signed Patient would like to know if we got permission from Dr Howe to stop blood thinner. Amelie Del Rio 12/06/2020 9:03 AM Signed Received clearance from PCP ryan to stop blood thinner. Scanned into [employer] Amelie Del Rio Allergies As of Date: [...] - Intolerance STEROIDS (BETAMETHASONE DIPROPION*02/06/2010 TYLENOL COLD (RML-CXSAJTPNX-EL-AC*1 5 - Intolerance VALIUM (DIAZEPAM) 03/30/2005 5 [...] Status:Closed by AMELIE DEL RIO on 12/16/20 [facility] CNOVon 11-23-2020 CNOV Office Visit (SWS ) ADRIENNE MORRISON ([id number]) 1950 F NFR Date Time Provider Department 11/23/20 3:30 PM DIA BERRY During your visit today, we recorded the following information about you: Temperature Pulse Blood pressure Weight 97.7 degrees 74/minute 134/72 117.9 kg Height 1.549 m Jessie Casillas SMOKING PIPE MAKER 11/23/2020 3:34 PM Signed REVIEW OF SYSTEMS: [...] OF Seizures - Schizophrenia (HCC) Pratibha Rick child care development specialist at [facility] (more content not included)... Normal [facility] Vital Signs Date Time Vital Sign Value Performing Clinician Facility 12-16-2024 08:43-0400 Body mass index (BMI) [Ratio] 58.6 kg/m2 Dr. Panda Littlejohn MD Work Phone: [phone] [place] [address] 12-16-2024 08:43-0400 Body temperature 95.1 [degF] Dr. Panda Littlejohn MD Work Phone: [phone] [place] [address] 12-16-2024 08:43-0400 Body weight 145.[address] Panda Littlejohn MD Work Phone: 5(458)924-674228 [place] [address] 12-16-2024 08:43-0400 Diastolic blood pressure 64 mm[Hg] Dr. Panda Littlejohn MD Work Phone: 2(184)456-222228 [place] [address] 12-16-2024 08:43-0400 Heart rate 44 /min Dr. Panda Littlejohn MD Work Phone: 4(183)730-628228 [place] [address] 12-16-2024 08:43-0400 Respiratory rate 18 /min Dr. Panda Littlejohn MD Work Phone: 2(222)494-648728 [place] [address] 12-16-2024 08:43-0400 SaO2% (BldA) [Mass fraction] 93 % Dr. Panda Littlejohn MD Work Phone: 6(932)113-257428 [place] [address] 12-16-2024 08:43-0400 Systolic blood pressure 96 mm[Hg] Dr. Panda Littlejohn MD Work Phone: 3(048)150-049328 [place] [address] 08-17-2024 13:04-0400 Body temperature 97.8 [degF] Dr. Richa Daniels MD Work Phone: [facility] 08-17-2024 13:04-0400 Diastolic blood pressure 81 mm[Hg] Dr. Richa Daniels MD Work Phone: [facility] 08-17-2024 13:04-0400 Heart rate 76 /min Dr. Richa Daniels MD Work Phone: 0(510)353-025838 [place] [address] 08-17-2024 13:04-0400 Inhaled oxygen flow rate 2 L/min Dr. Richa Daniels MD Work Phone: 1(625)431-944138 [place] [address] 08-17-2024 13:04-0400 Respiratory rate 16 /min Dr. Richa Daniels MD Work Phone: 7(861)803-589538 [place] [address] 08-17-2024 13:04-0400 SaO2% (BldA) [Mass fraction] 93 % Dr. Richa Daniels MD Work Phone: 3(453)284-268638 [place] [address] 08-17-2024 13:04-0400 Systolic blood pressure 154 mm[Hg] Dr. Richa Daniels MD Work Phone: 5(565)599-113638 [place] [address] 08-17-2024 03:23-0400 Inhaled oxygen concentration 30 % Dr. Richa Daniels MD Work Phone: 4(883)078-886315 [address] 08-16-2024 05:48-0400 Body mass index (BMI) [Ratio] 58.1 kg/m2 Dr. Richa Daniels MD Work Phone: 0(956)053-092838 [place] [address] 08-16-2024 05:48-0400 Body weight 144.[address] Richa Daniels MD Work Phone: 7(610)990-611715 [address] 08-14-2024 10:37-0500 Body height 157.[address] Richa Daniels MD Work Phone: 7(724)184-660338 [place] [address] 08-13-2024 20:00-0500 Diastolic blood pressure 74 mm[Hg] Dr. Richa Daniels MD Work Phone: 9(357)020-491238 [place] [address] 08-13-2024 20:00-0500 Heart rate 81 /min Dr. Richa Daniels MD Work Phone: [facility] 08-13-2024 20:00-0500 Respiratory rate 25 /min Dr. Richa Daniels MD Work Phone: 4(962)669-047938 [place] [address] 08-13-2024 20:00-0500 SaO2% (BldA) [Mass fraction] 98 % Dr. Richa Daniels MD Work Phone: 2(785)539-924638 [place] [address] 08-13-2024 20:00-0500 Systolic blood pressure 102 mm[Hg] Dr. Richa Daniels MD Work Phone: 5(607)859-303006 [place] [address] 08-13-2024 19:24-0500 Body temperature 98.8 [degF] Dr. Richa Daniels MD Work Phone: 1(246)719-704606 [place] [address] 08-13-2024 18:47-0500 Inhaled oxygen concentration 70 % Dr. Richa Daniels MD Work Phone: 6(766)525-032438 [place] [address] 08-13-2024 16:38-0500 Inhaled oxygen flow rate 15 L/min Dr. Richa Daniels MD Work Phone: 2(616)394-593638 [place] [address] 08-13-2024 15:38-0500 Body height 159.[address] Richa Daniels MD Work Phone: 2(673)252-922438 [place] [address] 08-13-2024 15:38-0500 Body mass index (BMI) [Ratio] 55.5 kg/m2 Dr. Richa Daniels MD Work Phone: [facility] 08-13-2024 15:38-0500 Body weight 142.[address] Richa Daniels MD Work Phone: 6(615)021-283238 [place] [address] 05-22-2023 07:48-0500 Body height 154.[address] Richa Daniels Work Phone: 8(326)529-515738 [place] [address] 05-22-2023 07:48-0500 Body mass index (BMI) [Ratio] 51.3 kg/m2 Dr. Richa Daniels Work Phone: 2(500)149-220038 [place] [address] 05-22-2023 07:48-0500 Body temperature 97.3 [degF] Dr. Richa Daniels Work Phone: 4(444)310-488406 [place] [address] 05-22-2023 07:48-0500 Body weight 123.[address] Richa Daniels Work Phone: 3(293)196-899006 [place] [address] 05-22-2023 07:48-0500 Diastolic blood pressure 76 mm[Hg] Dr. Richa Daniels Work Phone: 2(334)918-169706 [place] [address] 05-22-2023 07:48-0500 Heart rate 77 /min Dr. Richa Daniels Work Phone: 6(629)158-937206 [place] [address] 05-22-2023 07:48-0500 Respiratory rate 20 /min Dr. Richa Daniels Work Phone: 8(766)469-578306 [place] [address] 05-22-2023 07:48-0500 SaO2% (BldA) [Mass fraction] 98 % Dr. Richa Daniels Work Phone: 6(007)625-471806 [place] [address] 05-22-2023 07:48-0500 Systolic blood pressure 129 mm[Hg] Dr. Richa Daniels Work Phone: 0(438)476-304206 [place] [address] 11-14-2022 06:45-0400 Body height 154.[address] Richa Daniels Work Phone: 5(414)767-439906 [place] [address] 11-14-2022 06:45-0400 Body mass index (BMI) [Ratio] 52 kg/m2 Dr. Richa Daniels Work Phone: [facility] 11-14-2022 06:45-0400 Body temperature 97.8 [degF] Dr. Richa Daniels Work Phone: 5(278)793-283806 [place] [address] 11-14-2022 06:45-0400 Body weight 124.[address] Richa Daniels Work Phone: 2(073)491-644938 [place] [address] 11-14-2022 06:45-0400 Diastolic blood pressure 75 mm[Hg] Dr. Richa Daniels Work Phone: 4(671)563-836738 [place] [address] 11-14-2022 06:45-0400 Heart rate 73 /min Dr. Richa Daniels Work Phone: [facility] 11-14-2022 06:45-0400 Respiratory rate 20 /min Dr. Richa Daniels Work Phone: [facility] 11-14-2022 06:45-0400 SaO2% (BldA) [Mass fraction] 96 % Dr. Richa Daniels Work Phone: [facility] 11-14-2022 06:45-0400 Systolic blood pressure 124 mm[Hg] Dr. Richa Daniels Work Phone: [facility] 11-15-2021 10:31-0400 Body height 154.[address] Richa Daniels Work Phone: [facility] Work Phone: 11-15-2021 10:31-0400 Body mass index (BMI) [Ratio] 49.9 kg/m2 Dr. Richa Daniels Work Phone: [facility] Work Phone: 11-15-2021 10:31-0400 Body temperature 97.2 [degF] Dr. Richa Daniels Work Phone: [facility] Work Phone: 11-15-2021 10:31-0400 Body weight 119.[address] Richa Daniels Work Phone: [facility] Work Phone: 11-15-2021 10:31-0400 Diastolic blood pressure 80 mm[Hg] Dr. Richa Daniels Work Phone: [facility] Work Phone: 11-15-2021 10:31-0400 Heart rate 65 /min Dr. Richa Daniels Work Phone: [facility] Work Phone: 11-15-2021 10:31-0400 Respiratory rate 18 /min Dr. Richa Daniels Work Phone: [facility] Work Phone: 11-15-2021 10:31-0400 Systolic blood pressure 144 mm[Hg] Dr. Richa Daniels Work Phone: [facility] Work Phone: Encounters Encounter Date Encounter Type Care Provider Facility Start: 01-27-2025 ambulatory Panda Littlejohn OLS Facil ity:[facility] Start: 01-21-2025 ambulatory Panda Littlejohn Facility: [facility] Start: 01-11-2025 ambulatory Panda Littlejohn Facility: [facility] Start: 01-05-2025 ambulatory Panda Littlejohn Facility: [facility] Start: 12-28-2024 ambulatory Panda Littlejohn OLS Facil ity:[facility] Start: 12-16-2024 End: 12-16-2024 Patient encounter procedure Heide Figueroa NP-C -[facility] Work Phone: Start: 12-16-2024 End: 12-16-[address] Panda Littlejohn MD Work Phone: -[facility] Start: 12-08-2024 ambulatory Panda Littlejohn Facility: [facility] Start: 12-08-2024 Registered Referred Panda Littlejohn MD [facility] Start: 11-27-2024 ambulatory Panda Litteljohn Facility: [facility] Start: 10-21-2024 ambulatory Panda Littlejohn Facility: [facility] Start: 10-21-2024 Registered Referred Panda Littlejohn MD [facility] Start: 10-07-2024 ambulatory Panda Littlejohn Facility: [facility] Start: 10-07-2024 Registered Referred Panda Littlejohn MD [facility] Start: 08-17-2024 Non-patient / Non-visit Dr. Dinesh Medina MD -[facility] Start: 08-17-2024 Non-patient / Non-visit Dr. Lc Head MD -[facility] Work Phone: Start: 08-16-2024 Non-patient / Non-visit Dr. Lc Head MD -[facility] Work Phone: Start: 08-15-2024 Non-patient / Non-visit Dr. Rubina Saini MD -[facility] Start: 08-15-2024 Non-patient / Non-visit Dr. Lc Head MD -[facility] Work Phone: Start: 08-14-2024 ambulatory Panda Littlejohn Facility: [facility] Start: 08-14-2024 Non-patient / Non-visit Dr. Rubina Saini MD -[facility] Start: 08-13-2024 ambulatory Panda Littlejohn Facility: [facility] Start: 08-13-2024 End: 08-17-2024 Evaluation and management of inpatient Dr. Ibeth Parker MD -Intensive Care Unit Work Phone: Start: 06-04-2024 End: 06-04-2024 Departed Referred Panda Littlejohn MD -[facility] Start: 06-04-2024 End: 06-04-2024 ambulatory Panda TRUONG Facility:[facility] Start: 03-18-2024 ambulatory Panda TRUONG Facil ity:[facility] Start: 03-16-2024 ambulatory Luis Hernández Fac ility:[facility] Start: 03-11-2024 [facility] Start: 03-11-2024 End: 03-16-2024 Evaluation and management of inpatient Luis Hernández Facility:[facility] Start: 02-27-2024 End: 02-27-2024 ambulatory Panda TRUONG Facility:[facility] Start: 02-11-2024 End: 02-11-2024 [facility] Start: 09-03-2023 End: 09-03-[address] Richa Daniels Work Phone: [facility] Work Phone: Start: 09-03-2023 End: 09-03-[address] Richa Daniels Work Phone: [facility] Start: 05-27-2023 End: 05-27-[address] Richa Daniels Work Phone: [facility] Start: 05-22-2023 End: 05-22-[address] [facility] Work Phone: Start: 01-08-2023 End: 01-08-[address] Richa Daniels Work Phone: [facility] Work Phone: Start: 01-08-2023 End: 01-08-[address] Richa Daniels Work Phone: [facility] Work Phone: Start: 11-14-2022 End: 11-14-[address] [facility] Work Phone: Start: 05-25-2022 End: 05-25-2022 ambulatory [facility] Work Phone: Start: 05-25-2022 End: 05-25-2022 Patient encounter procedure [facility] Start: 12-20-2021 End: 12-20-[address] Richa Daniels Work Phone: [facility] Start: 11-15-2021 End: 11-15-[address] [facility] Procedures Date Procedure Procedure Detail Performing Clinician Start: 12-08-2024 Drug screen quantita tive phenobarbital Dr. Panda Littlejohn MD Work Phone: Comment on above: Detection Limit = 3P atient drug level exceeds published reference range.Evaluate clinically for signs of potential toxicity.Performed at: [address] [id number] Director: Jose Vicente PhD, Phone: [phone] Start: 10-21-2024 Vitamin D, 25-hydrox y measurement [...] clinically for signs of potential toxicity.Performed at: [place] [id number] Director: Jose Vicente PhD, Phone: [phone] Start: 08-17-2024 Cardiovascular stres s test using [...] surgery History of bilat eral tympanoplasty Dr. Ricah Daniels Work Phone: H/O: tubal ligation History [...] Activity Detail Author Start: 08-17-2024 Patient discharge [facility] Start: 08-17-2024 [facility] Start: 08-16-2024 [facility] Start: 08-14-2024 Care planning and pr oblem solving actions [facility] Start: 08-13-2024 Application of elastic bandage [facility] Start: 08-13-2024 Aspiration precautions [facility] Start: 08-13-2024 Assessment of risk o f venous thromboembolism [facility] Start: 08-13-2024 Continuous pulse oximetry [facility] Start: 08-13-2024 Elevation of affecte d extremity [facility] Start: 08-13-2024 Elevation of head of bed [facility] Start: 08-13-2024 Fall prevention [facility] Start: 08-13-2024 Incentive spirometry [facility] Start: 08-13-2024 Insertion of cathete r into peripheral vein [facility] Start: 08-13-2024 Introduction of urin prasanna catheter [facility] Start: 08-13-2024 Measuring intake and output [facility] Start: 08-13-2024 Notification of physician [facility] Start: 08-13-2024 Oxygen therapy [facility] Start: 08-13-2024 Patient education [facility] Start: 08-13-2024 Patient referral to dietitian [facility] Start: 08-13-2024 Providing care accor ding to standard [facility] Start: 08-13-2024 Provision of activit y privileges [facility] Start: 08-13-2024 Referral to optical design engineer [facility] Start: 08-13-2024 Referral to occupati onal therapist [facility] Start: 08-13-2024 Referral to service [facility] Start: 08-13-2024 Speech therapy assessment [facility] Start: 08-13-2024 Vital signs measurements [facility] Start: 08-13-2024 [facility] Start: 08-13-2024 Following clinical p athway protocol [facility] Start: 08-13-2024 Dual pressure sponta neous ventilation support [facility] Start: 08-13-2024 Hospital admission, emergency, from emergency room, medical nature [facility] Start: 08-13-2024 Admission procedure [facility] Start: 08-13-2024 Continuous pulse oximetry [facility] Start: 08-13-2024 End: 08-13-2024 [facility] Start: 08-13-2024 Respiratory secretio n precautions [facility] Start: 08-13-2024 Bacteria identified in Blood by Culture Blood Culture [facility] Start: 08-13-2024 Bacteria identified in Urine by Culture Urine Culture [facility] Start: 08-13-2024 Blood culture Blood Culture [facility] Start: 08-13-2024 Dual pressure sponta neous ventilation support [facility] Start: 08-13-2024 Inhalation therapy procedure [facility] Start: 08-13-2024 Patient referral to dietitian [facility] Start: 08-13-2024 [facility] Patient referral [facility] Work Phone: Urine culture [facility] Immunizations Immunization Date Immunization Notes Care Provider Fa alysa 03-08-2023 influenza, injectabl e, quadrivalent, preservative free Dr. Richa Daniels MD Work Phone: [facility] 03-09-2022 influenza, injectabl e, quadrivalent, preservative free Dr. Richa Daniels MD Work Phone: [facility] 03-21-2021 Covid (Pfizer) Dr. Richa banks MD Work Phone: [facility] 03-10-2021 influenza, injectabl e, quadrivalent, preservative free Dr. Richa Daniels MD Work Phone: [facility] 09-06-2020 Covid (Pfizer) Dr. Richa banks Work Phone: [facility] 08-16-2020 Covid (Pfizer) Dr. Richa banks Work Phone: [facility] 03-04-2020 influenza, injectabl e, quadrivalent, preservative free Dr. Richa Daniels MD Work Phone: [facility] 02-17-2019 influenza, injectabl e, quadrivalent, preservative free Dr. Richa Daniels MD Work Phone: [facility] 03-04-2018 influenza, injectabl e, quadrivalent, preservative free Dr. Richa Daniels MD Work Phone: [facility] 03-05-2017 influenza, injectabl e, quadrivalent, preservative free Dr. Richa Daniels Work Phone: [facility] 03-05-2017 influenza, seasonal, injectable Dr. Richa Daniels Work Phone: [facility] 03-05-2017 influenza, seasonal, injectable, preservative free Dr. Richa Daniels MD Work Phone: [facility] 04-06-2016 pneumococcal polysaccharide vaccine, [address] Richa Daniels MD Work Phone: [facility] 03-08-2016 influenza, injectabl e, quadrivalent, preservative free Dr. Richa Daniels MD Work Phone: [facility] 01-09-2016 tetanus toxoid, redu yves diphtheria toxoid, and acellular pertussis vaccine, adsorbed Dr. Richa Daniels MD Work Phone: [facility] 03-18-2015 influenza, injectabl e, quadrivalent, preservative free Dr. Richa Daniels MD Work Phone: [facility] 02-01-2015 pneumococcal conjuga te vaccine, [address] Richa Daniels MD Work Phone: [facility] 03-18-2014 influenza, injectabl e, quadrivalent, preservative free Dr. Richa Daniels MD Work Phone: [facility] 03-06-2013 influenza, injectabl e, quadrivalent, preservative free Dr. Richa Daniels MD Work Phone: [facility] 02-29-2012 influenza, injectabl e, quadrivalent, preservative free Dr. Richa Daniels MD Work Phone: [facility] 04-04-2009 novel influenza-H1N1 -09, preservative-free, injectable Dr. Richa Daniels MD Work Phone: [facility] 06-14-2005 pneumococcal polysaccharide vaccine, [address] Richa Daniels MD Work Phone: [facility] Payers Date Payer Category Payer Self-pay [id number] 2023 Unknown [id number] 2014 Unknown [id number] [facility] [id number] Medicare [id number] Unknown [id number] 2.16.8 40.1.468504.3.579.2.462 Unknown [id number] 2.16.8 40.1.665897.3.579.2.462 Unknown [id number] 2.16.8 40.1.378720.3.579.2.462 Unknown [id number] 2.16.8 40.1.421936.3.579.2.462 Unknown [id number] 2.16.8 40.1.492332.3.579.2.462 Unknown [id number] 2.16.8 40.1.500440.3.579.2.462 Unknown [id number] 2.16.8 40.1.811389.3.579.2.462 Unknown [id number] 2.16.8 40.1.465591.3.579.2.462 Unknown [id number] 2.16.8 40.1.984933.3.579.2.462 Unknown [id number] 2.16.8 40.1.190008.3.579.2.462 Unknown [id number] 2.16.8 40.1.371566.3.579.2.462 Unknown [id number] 2.16.8 40.1.973861.3.579.2.462 Unknown [id number] 2.16.8 40.1.927730.3.579.2.462 Unknown [id number] 2.16.8 40.1.472652.3.579.2.462 Unknown [id number] 2.16.8 40.1.536874.3.579.2.462 Unknown [id number] 2.16.8 40.1.683311.3.579.2.462 Unknown [id number] 2.16.8 40.1.873618.3.579.2.462 Unknown [id number] 2.16.8 40.1.909698.3.579.2.462 Unknown [id number] 2.16.8 40.1.509427.3.579.2.462 Unknown [id number] 2.16.8 40.1.180627.3.579.2.462 Unknown [id number] 2.16.8 40.1.663712.3.579.2.462 Unknown [id number] 2.16.8 40.1.183265.3.579.2.462 Unknown [id number] 2.16.8 40.1.425282.3.579.2.462 Unknown [id number] 2.16.8 40.1.821997.3.579.2.462 Unknown [id number] 2.16.8 40.1.644267.3.579.2.462 Unknown [id number] 2.16.8 40.1.007498.3.579.2.462 Unknown [id number] 2.16.8 40.1.672634.3.579.2.462 Unknown [id number] 2.16.8 40.1.779865.3.579.2.462 Unknown [id number] 2.16.8 40.1.935212.3.579.2.462 Unknown [id number] 2.16.8 40.1.252824.3.579.2.462 Unknown [id number] 2.16.8 40.1.734608.3.579.2.462 Unknown [id number] 2.16.8 40.1.765063.3.579.2.462 Unknown [id number] 2.16.8 40.1.107599.3.579.2.462 Unknown [id number] 2.16.8 40.1.451067.3.579.2.462 Unknown [id number] 2.16.8 40.1.439084.3.579.2.462 Unknown [id number] 2.16.8 40.1.706066.3.579.2.462 Social History Date Type Detail Facility Start: 11-15-2021 End: 05-22-2023 Tobacco smoking status NHIS Unknown if ever smoked [facility] Start: 10-18-2020 None [facility] Start: 10-18-2020 with her friend at home [facility] Start: 10-18-2020 Secondhand [facility] Start: 1950 Sex Assigned At Female [facility] Start: 08-13-2024 End: 08-13-2024 Tobacco smoking status NHIS Never smoked tobacco (finding) [facility] Start: 08-13-2024 End: 08-17-2024 Sex Female (finding) [facility] Goals Date Patient Goal Desired Activity /State Functional Status Date Assessment Result Facility 08-17-2024 Functional status Activity Abili ty Unable to Assess [facility] Work Phone: 08-15-2024 Functional status Bedrest [facility] Work Phone: Mental Status Date Assessment Result Facility 08-17-2024 Cognitive function Voice/Name [facility] Work Phone: Clinical Notes 11-23-2020 to 08-17-2024 Note Date & Type Note Facility 08-17-2024 Progress note Note Date/Time August 17, 2024 11:02am [facility] Medical Records Department [address] [place] [address] Progress Note - Cardiology 08/17/24 1055 MR#: [id number] Acct: [id number] Name: ADRIENNE MORRISON Rep #:[id number] : 1950 74 From: Benito Bright MD PCP: Dr. Panda Littlejohn MD Status:ADM IN Location: [facility]-9 Subjective Subjective Patient is resting in the [...] 79.9 H, Lymph % (Auto) 11.3 L, [place] % (Auto) 6.9, Eos % (Auto) 1.0, [...] 79.9 H, Lymph % (Auto) 11.3 L, [place] % (Auto) 6.9, Eos % (Auto) 1.0, [...] ejection fraction was normal. (2) Type 2 MD (myocardial infarction): PLAN: Patient's troponins were 300 [...] arranged appointment. Charges/Coding Visit Charges Inpatient E&M: 42014 Subs Hosp L2 08/17/24 1102 <Electronically signed by Benito Bright MD> Cosigner Signature (if applicable): CC: ~ Signed [facility] Work Phone: 1(388) 741-745703-10-2025 Discharge summary [facility] Medical Records Department [address] [place] [address] Transfer to Extended Care MR#: [id number] Acct: [id number] Name: ADRIENNE MORRISON Rep #:[id number] : 1950 74 From: Lc Head MD PCP: Dr. Panda Littlejohn MD Status:ADM IN Certification of patient admission REQUIRED AT TIME OF ADMISSION. I CERTIFY THAT POST-HOSPITAL ECF SERVICES ARE REQUIRED TO BE GIVEN ON AN IN-PATIENT BASIS BECAUSE OF THE ABOVE NAMED PATIENT'S NEED FOR PRISON CARE ON A CONTINUING BASIS FOR THE CONDITION(S) FOR WHICH HE/SHE WAS RECEIVING IN-PATIENT HOSPITAL SERVICES PRIOR TO HIS/HER TRANSFER TO THE [facility]. 08/17/24 1123 Diet Diet Order/Speech Therapy: 08/17/24 [...] - Heart failure, unspecified (2) Type 2 MD (myocardial infarction): Status: Acute Code(s): I21.A1 - Myocardial infarction type 2 Plan Patient is a 74-year-old lady resident at [facility] who was broughtto the emergency department with [...] intensive care unit with consult placed to nursing home assistant administrator ? 08/16/2024; patient was placed on BiPAP at night. With patient going into intermittent respiratory distress the day prior ordered portable chest x-ray this a.m. for subsequent ? Patient was assessed for home oxygen prior to being sent back to her [facility] 2. Septic shock ? Secondary to a [...] Up: Richa Daniels MD [Med Staff - Attractions Associate] - Panda Littlejohn MD [Primary Care Provider] - Within 2 Weeks Disposition Disposition (needs filled in before D/C Order can be placed): [facility] 08/17/24 1123 Cosigner Signature (if applicable): CC: Dr. Rubina Saini MD; Dr. Ibeth Parker MD; Dr. Panda Littlejohn MD ~ [facility]03-10-2025 Discharge summary [facility] Medical Records Department [address] [place] [address] Discharge Summary 08/17/24 1118 MR#: [id number] Acct: [id number] Name: ADRIENNE MORRISON Rep #:[id number] : 1950 74 From: Lc Head MD PCP: Dr. Panda Littlejohn MD Status:ADM IN [place]: [facility] [id number] Providers Date of Admission: 08/13/24 Date of Discharge: 08/17/24 Primary Care Physician: Dr. Panda Littlejohn MD Consultations 08/13/24 20:54 Consult: Cardiology Routine Consulting Provider: Rubina Saini Reason for Consult: Resp failure, HF Exac, NSTEMI demand related likely, Shock/UTI/PNA EMERGENT Consult: No Notified: Yes Date Notified: 08/13/24 Time Notified: 20:45 Method of Notification: Text Consult: Game Advisor / Pulmonary Medicine Routine Consulting Provider: Pulmonary Medicine [facility] Reason for Consult: Resp distress, Septic shock, [...] - Heart failure, unspecified (2) Type 2 MD (myocardial infarction): Status: Acute Code(s): I21.A1 - Myocardial infarction type 2 Plan Patient is a 74-year-old lady resident at [facility] who was broughtto the emergency department with [...] intensive care unit with consult placed to nursing home assistant administrator ? 08/16/2024; patient was placed on BiPAP at night. With patient going into intermittent respiratory distress the day prior ordered portable chest x-ray this a.m. for subsequent ? Patient was assessed for home oxygen prior to being sent back to her [facility] 2. Septic shock ? Secondary to a [...] 79.9 H, Lymph % (Auto) 11.3 L, Goshen % (Auto) 6.9, Eos % (Auto) 1.0, [...] Up: Richa Daniels MD [Med Staff - Attractions Associate] - Panda Littlejohn MD [Primary Care Provider] - Within 2 Weeks Disposition Disposition (needs filled in before D/C Order can be placed): [facility] Charges/Coding Visit Charges Inpatient E&M: 17450 Disch Hosp >30min 08/17/24 1122 Cosigner Signature (if applicable): CC: Dr. Lc Head MD; Dr. Panda Littlejohn MD~ Signed [facility]03[facility]10[facility] note [facility] Medical Records Department [address] [place] [address] Progress Note - Cardiology 08/17/24 1055 MR#: [id number] Acct: [id number] Name: ADRIENNE MORRISON Rep #:[id number] : 1950 74 From: Benito Bright MD PCP: Dr. Panda Littlejohn MD Status:ADM IN Location: [facility] [id number] Subjective Subjective Patient is resting in the [...] 79.9 H, Lymph % (Auto) 11.3 L, Goshen % (Auto) 6.9, Eos % (Auto) 1.0, [...] 79.9 H, Lymph % (Auto) 11.3 L, Goshen % (Auto) 6.9, Eos % (Auto) 1.0, [...] ejection fraction was normal. (2) Type 2 MD (myocardial infarction): PLAN: Patient's troponins were 300 [...] arranged appointment. Charges/Coding Visit Charges Inpatient E&M: 44121 Subs Hosp L2 08/17/24 1102 Cosigner Signature (if applicable): CC: ~ Signed [facility]03-10-2025 Progress note Author Lc Head [facility] Note Date/Time August 17, 2024 7:4 0am [facility] Medical Records Department [address] [place] [address] Progress Note - Hospitalist 08/17/24 0739 MR#: [id number] Acct: [id number] Name: ADRIENNE MORRISON Rep #:[id number] : 1950 74 From: Lc Head MD PCP: Dr. Panda Littlejohn MD Status:ADM IN Location: [place] [id number] Reason for Visit Reason for Visit: Diagnoses [...] 79.9 H, Lymph % (Auto) 11.3 L, Goshen % (Auto) 6.9, Eos % (Auto) 1.0, [...] pneumonitis/pneumonia. Small right pleural effusion. Reading Location: [facility] Rhythm Strip Rhythm Strip: Sinus Rhythm Physical [...] Patient is a 74-year-old lady resident at [facility] who was broughtto the emergency department with [...] intensive care unit with consult placed to nursing home assistant administrator ? 08/16/2024; patient was placed on BiPAP [...] documentation, 36minutes Charges/Coding Visit Charges Inpatient E&M: 17671 Subs Hosp L2 08/17/24 0740 <Electronically signed by Lc Head MD> Cosigner Signature (if applicable): CC: ~ Signed [facility] Work Phone: 1(991) 848-177303-10-2025 Progress note [facility] Medical Records Department [address] [place] [address] Progress Note - Hospitalist 08/17/24 0739 MR#: [id number] Acct: [id number] Name: ADRIENNE MORRISON Rep #:[id number] : 1950 74 From: Lc Head MD PCP: Dr. Panda Littlejohn MD Status:ADM IN Location: [place] [address]-1 Reason for Visit Reason for Visit: Diagnoses [...] 79.9 H, Lymph % (Auto) 11.3 L, Goshen % (Auto) 6.9, Eos % (Auto) 1.0, [...] pneumonitis/pneumonia. Small right pleural effusion. Reading Location: [facility] Rhythm Strip Rhythm Strip: Sinus Rhythm Physical [...] Patient is a 74-year-old lady resident at [facility] who was broughtto the emergency department with [...] intensive care unit with consult placed to nursing home assistant administrator ? 08/16/2024; patient was placed on BiPAP [...] documentation, 36minutes Charges/Coding Visit Charges Inpatient E&M: 09935 Subs Hosp L2 08/17/24 0740 Cosigner Signature (if applicable): CC: ~ Signed [facility]03-09-2025 Progress note Author Lc Head [facility] Note Date/Time August 16, 2024 8:12 am [facility] Medical Records Department [address] [place] [address] Progress Note - Hospitalist 08/16/24 0725 MR#: [id number] Acct: [id number] Name: ADRIENNE MORRISON Rep #:[id number] : 1950 74 From: Lc Head MD PCP: Dr. Panda Littlejohn MD Status:ADM IN Location: [place] [id number] Reason for Visit Reason for Visit: Diagnoses [...] 81.4 H, Lymph % (Auto) 11.5 L, Goshen % (Auto) 6.2, Eos % (Auto) 0.1, [...] Patient is a 74-year-old lady resident at [facility] who was broughtto the emergency department with [...] intensive care unit with consult placed to nursing home assistant administrator ? 08/16/2024; patient was placed on BiPAP [...] documentation, 50Minutes Charges/Coding Visit Charges Inpatient E&M: 11516 Subs Hosp L3 08/16/24 0812 <Electronically signed by Lc Head MD> Cosigner Signature (if applicable): CC: ~ Signed [facility] Work Phone: 1(656) 702-888403-09-2025 Radiology Diagnostic study note [facility] Imaging Services [address] [place], [place] [address] Chest 1 View (Portable) MR#: [id number] Acct: [id number] Name: ADRIENNE MORRISON Rep #: [id number] : 1950 F 74 From: Concetta Fortune MD PCP: Dr. Panda Littlejohn MD Status: ADM IN Study:Chest 1 View (Portable) Date of Exam: 08/16/24 Exam# [id number] Ordering Dr: Cong Head MD PROCEDURE: CHEST [...] pneumonitis/pneumonia. Small right pleural effusion. Reading Location: [facility] CC: Dr. Lc Head MD; Dr. Panda Littlejohn MD ~ Trucker: Signed [facility]03-09-2025 Progress note [facility] Medical Records Department [address] [place] [address] Progress Note - Hospitalist 08/16/24 0725 MR#: [id number] Acct: [id number] Name: ADRIENNE MORRISON Rep #:[id number] : 1950 74 From: Lc Head MD PCP: Dr. Panda Littlejohn MD Status:ADM IN Location: [facility] [id number] Reason for Visit Reason for Visit: Diagnoses [...] 81.4 H, Lymph % (Auto) 11.5 L, Goshen % (Auto) 6.2, Eos % (Auto) 0.1, [...] Patient is a 74-year-old lady resident at [facility] who was broughtto the emergency department with [...] intensive care unit with consult placed to nursing home assistant administrator ? 08/16/2024; patient was placed on BiPAP [...] documentation, 50Minutes Charges/Coding Visit Charges Inpatient E&M: 01296 [facility] Hosp 08/16/24 0812 Cosigner Signature (if applicable): CC: ~ Signed [facility]03-08-2025 Progress note Author Rubina Saini [facility] Note Date/Time August 15, 2024 9:39 am [facility] Medical Records Department [address] [place] [address] Progress Note - Cardiology 08/15/24 1035 MR#: [id number] Acct: [id number] Name: ADRIENNE MORRISON Rep #:[id number] : 1950 74 From: Rubina Saini MD PCP: Dr. Panda Littlejohn MD Status:ADM IN Location: [place] [address]-1 Subjective Subjective Complaining of shortness of breath. [...] 08:24 IMPRESSION: NORMAL V/Q SCAN. Reading Location: [place] [address] Physical Exam Narrative Morbidly obese. Heart sounds [...] Cosigner Signature (if applicable): CC: ~ Signed [facility] Work Phone: 1(457) 305-317903-08-2025 Progress note Author Lc Head [facility] Note Date/Time August 15, 2024 7:58 am [facility] Medical Records Department [address] [place] [address] Progress Note - Hospitalist 08/15/24 0738 MR#: [id number] Acct: [id number] Name: ADRIENNE MORRISON Rep #:[id number] : 1950 74 From: Lc Head MD PCP: Dr. Panda Littlejohn MD Status:ADM IN Location: [place] [address] Reason for Visit Reason for Visit: Diagnoses [...] Referring Physician: Panda Littlejohn Performed By: Ghazal Newman RDCS, RVT Lung Scan-VQ NM 08/14/24 08:24 IMPRESSION: NORMAL V/Q SCAN. Reading Location: [place] [address] Rhythm Strip Rhythm Strip: Sinus Rhythm Physical [...] Patient is a 74-year-old lady resident at [facility] who was broughtto the emergency department with [...] intensive care unit with consult placed to nursing home assistant administrator 2. Septic shock ? Secondary to a [...] documentation, 50Minutes Charges/Coding Visit Charges Inpatient E&M: 89435 Subs Hosp L3 08/15/24 0858 <Electronically signed by Lc Head MD> Cosigner Signature (if applicable): CC: ~ Signed [facility] Work Phone: 1(109) 384-974503-08-2025 Progress note [facility] Medical Records Department [address] [place] [address] Progress Note - Cardiology 08/15/24 1035 MR#: [id number] Acct: [id number] Name: ADRIENNE MORRISON Rep #:[id number] : 1950 74 From: Rubina Saini MD PCP: Dr. Panda Littlejohn MD Status:ADM IN Location: [place] [address]-1 Subjective Subjective Complaining of shortness of breath. [...] 08:24 IMPRESSION: NORMAL V/Q SCAN. Reading Location: [place] [address] Physical Exam Narrative Morbidly obese. Heart sounds [...] Cosigner Signature (if applicable): CC: ~ Signed [facility]03-08-2025 Consult note Author Benjamin Vaz [facility] Note Date/Time August 15, 2024 7:11 am [facility] Medical Records Department [address] [place] [address] Pharmacokinetic/Renal -Consult 08/15/24 0733 MR#: [id number] Acct: [id number] Name: ADRIENNE MORRISON Rep #:[id number] : 1950 74 From: Benjamin stewart PCP: Dr. Panda Littlejohn MD Status:ADM IN Y Location: [place] [address]-1 Consult Antibiotic Management Pharmacy has been consulted [...] Date Lc Head MD CC: ~ Signed [facility] Work Phone: 1(591) 761-824203-08-2025 Progress note [facility] Medical Records Department [address] [place] [address] Progress Note - Hospitalist 08/15/24737 MR#: [id number] Acct: [id number] Name: ADRIENNE MORRISON Rep #:[id number] : 1950 74 From: Lc Head MD PCP: Dr. Panda Littlejohn MD Status:ADM IN Location: [place] [id number] Reason for Visit Reason for Visit: Diagnoses [...] 08:24 IMPRESSION: NORMAL V/Q SCAN. Reading Location: [place] [address] Rhythm Strip Rhythm Strip: Sinus Rhythm Physical [...] Patient is a 74-year-old lady resident at [facility] who was broughtto the emergency department with [...] intensive care unit with consult placed to nursing home assistant administrator 2. Septic shock ? Secondary to a [...] documentation, 50Minutes Charges/Coding Visit Charges Inpatient E&M: 11692 Subs Hosp L3 08/15/24 0858 Cosigner Signature (if applicable): CC: ~ Signed [facility]03-08-2025 Consult note [facility] Medical Records Department [address] [place] [address] Pharmacokinetic/Renal -Consult 08/15/24 0733 MR#: [id number] Acct: [id number] Name: ADRIENNE MORRISON Rep #:[id number] : 1950 74 From: Benjamin stewart PCP: Dr. Panda Littlejohn MD Status:ADM IN Location: [place] [address]-1 Consult Antibiotic Management Pharmacy has been consulted [...] Date Lc Head MD CC: ~ Signed [facility]03-07-2025 Progress note Author Teddy Saldana [facility] Note Date/Time August 14, 2024 11:2 0am [facility] Medical Records Department [address] [place] [address] Progress Note - Game Advisor 08/14/2446 MR#: [id number] Acct: [id number] Name: ADRIENNE MORRISON Rep #:[id number] : 1950 74 From: Teddy Saldana DO [...] noted above. This note was generated with [employer] dictation software. It may contain incorrectwords, spelling, [...] 90.8 H, Lymph % (Auto) 3.6 L, Goshen % (Auto) 5.2, Eos % (Auto) 0.0, [...] Alkaline Phosphatase 130 H, Troponin T High [id number] H*, NT pro BNP II 3099 H, Total Protein 7.4, Albumin 3.9, Globulin 3.5, Albumin/Globulin Ratio 1.1 08/13/24 16:10: Urine Color Yellow, Urine Clarity Sl. Cloudy, Urine pH 6.0, Ur Specific Dalton 1.015, Urine Protein 30 H, Urine Glucose [...] 88.0 H, Lymph % (Auto) 5.5 L, Goshen % (Auto) 5.6, Eos % (Auto) 0.2, [...] of bilateral pulmonary venous congestion. Reading Location: [place] [address] Physical Exam Const alert and no apparent [...] flat affect Charges/Coding Visit Charges Inpatient E&M: 85128 Subs Hosp L2 08/14/24 1220 <Electronically signed by Teddy Saldana DO> Cosigner Signature (if applicable): CC: ~ Signed [facility] Work Phone: 1(307) 819-360003-07-2025 Consult note Author Rubina Saini [facility] Note Date/Time August 14, 2024 10:0 8am [facility] Medical Records Department [address] [place] [address] Consultation - Cardiology 08/14/24 1100 MR#: [id number] Acct: [id number] Name: ADRIENNE MORRISON Rep #:[id number] : 1950 74 From: Rubina Saini MD [...] echocardiogram. (3) Septic shock: PLAN: As per nursing home assistant administrator. (4) UTI (urinary tract infection): PLAN: On [...] any chest pains. No history of angina. [facility] Medical History Epilepsy Hammer toes of both [...] D&C Social History household members: none housing: alf Smoking Status: Never smoker second hand exposure: [...] 90.8 H, Lymph % (Auto) 3.6 L, Goshen % (Auto) 5.2, Eos % (Auto) 0.0, [...] Alkaline Phosphatase 130 H, Troponin T High Arin984 H*, NT pro BNP II 3099 H, Total Protein 7.4, Albumin 3.9, Globulin 3.5, Albumin/Globulin Ratio 1.1 08/13/24 16:10: Urine Color Yellow, Urine Clarity Sl. Cloudy, Urine pH 6.0, Ur Specific Dalton 1.015, Urine Protein 30 H, Urine Glucose [...] 88.0 H, Lymph % (Auto) 5.5 L, Goshen % (Auto) 5.6, Eos % (Auto) 0.2, [...] 90.8 H, Lymph % (Auto) 3.6 L, [place]hen % (Auto) 5.2, Eos % (Auto) 0.0, [...] Sl. Cloudy, Urine pH 6.0, Ur Specific Dalton 1.015, Urine Protein 30 H, Urine Glucose [...] 88.0 H, Lymph % (Auto) 5.5 L, Goshen % (Auto) 5.6, Eos % (Auto) 0.2, [...] of bilateral pulmonary venous congestion. Reading Location: [place] [address] 08/14/24 1108 <Electronically signed by Rubina Saini MD> Cosigner Signature (if applicable): CC: Dr. Panda Littlejohn MD~ Signed [facility] Work Phone: 1(257) 193-323003-07-2025 Procedure note [facility] Speech Pathology [address] [place] [address] Modified Barium Swallow Study MR#: [id number] Acct: [id number] Name: ADRIENNE MORRISON Rep #:[id number] : 1950 74 From: Krissy Iraheta, [facility]-FACTORY MACHINE COMPUTER OPERATOR Modified Barium Swallow Patient Information Study Date: [...] Depression/Schizophrenia, CKD stage II Pt presented to [facility] ED 08/13/2024 due to fatigue/malaise with [...] swallowing liquids. Hx of dysphagia therapy at [facility] from 03/13/2024-03/16/2024 during acute stay for [...] cup: Result: 2= enter airway/above vocal folds/ejected [place] Thick Liquid via large single sip: cup: [...] observed; however, forall the above trials, this FACTORY MACHINE COMPUTER OPERATOR cannot definitively rule out aspiration due to [...] Status Active ST Patient: Active Contact Information [facility] Speech Therapy:: Krissy Rodriguez M.A. CCC-FACTORY MACHINE COMPUTER OPERATOR? Speech-Language Pathologist?? [facility] [address] [place] [address]? [email or web address]?? [phone] 08/14/24 1302 Kori CCC-FACTORY MACHINE COMPUTER OPERATOR> Date/Time Krissy Rodriguez M.A. CCC-FACTORY MACHINE COMPUTER OPERATOR Co-Signature Required for all Medicare patients Date/Time Co-Signature CC: ~ [facility]03-07-2025 Progress note [facility] Medical Records Department [address] [place] [address] Progress Note - Game Advisor 08/14/24 0746 MR#: [id number] Acct: [id number] Name: ADRIENNE MORRISON Rep #:[id number] : 1950 74 From: Teddy Saldana DO [...] noted above. This note was generated with [employer] dictation software. It may contain incorrectwords, spelling, [...] 90.8 H, Lymph % (Auto) 3.6 L, Goshen % (Auto) 5.2, Eos % (Auto) 0.0, [...] Alkaline Phosphatase 130 H, Troponin T High Bctz681 H*, NT pro BNP II 3099H, Total Protein 7.4, Albumin 3.9, Globulin 3.5, Albumin/Globulin Ratio 1.1 03/06/25 16:10: Urine Color Yellow, Urine Clarity Sl. Cloudy, Urine pH 6.0, Ur Specific Dalton 1.015, Urine Protein 30 H, Urine Glucose [...] 88.0 H, Lymph % (Auto) 5.5 L, [place] % (Auto) 5.6, Eos % (Auto) 0.2, [...] of bilateral pulmonary venous congestion. Reading Location: [place] [address] Physical Exam Const alert and no apparent [...] flat affect Charges/Coding Visit Charges Inpatient E&M: 34740 Subs Hosp L2 08/14/24 1220 Cosigner Signature (if applicable): CC: ~ Signed [facility]03-07-2025 Nuclear medicine Diagnostic study note [facility] Imaging Services [address] [place] [address] Lung Scan Vent/Perf MR#: [id number] Acct: [id number] Name: ADRIENNE MORRISON Rep #: [id number] : 1950 F 74 From: Jania Esquivel MD PCP: Dr. Panda Littlejohn MD Status: ADM IN Study:Lung Scan Vent/Perf Date of Exam: 08/14/24 Exam# [id number] Ordering Dr: Cong Head MD PROCEDURE: RADIONUCLIDE LUNG SCAN (VENTILATION AND PERFUSION) REASON FOR EXAM: COUGH. SHORTNESS OF BREATH. ELEVATED TROPONINS TECHNIQUE: Nuclear medicine V/Q scan using 6.0 mCi Tc-99m MAA intravenously for perfusion imaging and 51.6 mCiTc-99m DTPA aerosol for ventilation imaging. Anterior, posterior, right and left lateral, TREVINO, ICELANDIC, RPO,and LPO ventilationand perfusion images. COMPARISON: PA and Lateral chest dated 08/13/2024. FINDINGS: Ventilation images: No abnormal areas of hypoventilation are demonstrated. Perfusion images: No segmental or subsegmental perfusion defects are demonstrated. NM/Lung Scan Vent/Perf IMPRESSION: NORMAL V/Q SCAN. Reading Location: [place] [address] CC: Dr. Lc Head MD; Dr. Panda Littlejohn MD ~ Trucker: Signed [facility]03-07-2025 Consult note [facility] Medical Records Department [address] [place] [address] Consultation - Cardiology 08/14/24 1100 MR#: [id number] Acct: [id number] Name: ADRIENNE MORRISON Rep #:[id number] : 1950 74 From: Rubina Saini MD [...] echocardiogram. (3) Septic shock: PLAN: As per nursing home assistant administrator. (4) UTI (urinary tract infection): PLAN: On [...] any chest pains. No history of angina. [facility] Medical History Epilepsy Hammer toes of both [...] D&C Social History household members: none housing: alf Smoking Status: Never smoker second hand exposure: [...] 90.8 H, Lymph % (Auto) 3.6 L, [place] % (Auto) 5.2, Eos % (Auto) 0.0, [...] Alkaline Phosphatase 130 H, Troponin T High Twwp822 H*, NT pro BNP II 3099H, Total Protein 7.4, Albumin 3.9, Globulin 3.5, Albumin/Globulin Ratio 1.1 08/13/24 16:10: Urine Color Yellow, Urine Clarity Sl. Cloudy, Urine pH 6.0, Ur Specific Dalton 1.015, Urine Protein 30 H, Urine Glucose [...] 88.0 H, Lymph % (Auto) 5.5 L, Goshen % (Auto) 5.6, Eos % (Auto) 0.2, [...] 90.8 H, Lymph % (Auto) 3.6 L, [place]% (Auto) 5.2, Eos % (Auto) 0.0, Baso %(Auto) 0.1, Absolute Neuts (auto) 13.6 H, Nucleated RBC % 0.1, PT 14.8, INR 1.1,APTT 40.2 H, Sodium 138, Potassium 4.3, Chloride 98, Carbon Dioxide 23.7, Anion Gap 17 H, BUN 29 H, Creatinine 1.48 H, Est GFR (MDRD) Non-Af 37 L, BUN/Creatinine Ratio 19.5, Xxsajhn059 H, Lactic Acid 3.1 H*, Calcium 9.2, Phosphorus 3.3, Magnesium 1.7, Total Bilirubin 0.27 08/13/24 16:10: Urine Color Yellow, Urine Clarity Sl. Cloudy, Urine pH 6.0, Ur Specific Dalton 1.015, Urine Protein 30 H, Urine Glucose [...] 88.0 H, Lymph % (Auto) 5.5 L, [place] % (Auto) 5.6, Eos % (Auto) 0.2, [...] of bilateral pulmonary venous congestion. Reading Location: [place] [address] 08/14/24 1108 Cosigner Signature (if applicable): CC: Dr. Panda Littlejohn MD~ Signed [facility]03-07-2025 Progress note Author Lc Head [facility] Note Date/Time August 14, 2024 7:27 am [facility] Medical Records Department [address] [place] [address] Progress Note - Hospitalist 08/14/24 0704 MR#: [id number] Acct: [id number] Name: ADRIENNE MORRISON Rep #:[id number] : 1950 74 From: Lc Head MD [...] 90.8 H, Lymph % (Auto) 3.6 L, [place] % (Auto) 5.2, Eos % (Auto) 0.0, [...] Alkaline Phosphatase 130 H, Troponin T High Dokb156 H*, NT pro BNP II 3099 H, Total Protein 7.4, Albumin 3.9, Globulin 3.5, Albumin/Globulin Ratio 1.1 08/13/24 16:10: Urine Color Yellow, Urine Clarity Sl. Cloudy, Urine pH 6.0, Ur Specific Dalton 1.015, Urine Protein 30 H, Urine Glucose [...] 88.0 H, Lymph % (Auto) 5.5 L, [place] % (Auto) 5.6, Eos % (Auto) 0.2, [...] of bilateral pulmonary venous congestion. Reading Location: [place] [address] Physical Exam Narrative GENERAL: Patient appears ill [...] Patient is a 74-year-old lady resident at [facility] who was broughtto the emergency department with [...] intensive care unit with consult placed to nursing home assistant administrator 2. Septic shock ? Secondary to a [...] documentation, 55Minutes Charges/Coding Visit Charges Inpatient E&M: 33184 Subs Hosp L3 08/14/24 0827 <Electronically signed by Lc Head MD> Cosigner Signature (if applicable): CC: ~ Signed [facility] Work Phone: 1(966) 597-883903-07-2025 Progress note [facility] Medical Records Department [address] [place] [address] Progress Note - Hospitalist 08/14/24 0704 MR#: [id number] Acct: [id number] Name: PRINCEADRIENNE J Rep #:[id number] : 1950 74 From: Lc Head MD [...] 90.8 H, Lymph % (Auto) 3.6 L, [place] % (Auto) 5.2, Eos % (Auto) 0.0, [...] Alkaline Phosphatase 130 H, Troponin T High Ymfl615 H*, NT pro BNP II 3099H, Total Protein 7.4, Albumin 3.9, Globulin 3.5, Albumin/Globulin Ratio 1.1 08/13/24 16:10: Urine Color Yellow, Urine Clarity Sl. Cloudy, Urine pH 6.0, Ur Specific Dalton 1.015, Urine Protein 30 H, Urine Glucose [...] 88.0 H, Lymph % (Auto) 5.5 L, [place] % (Auto) 5.6, Eos % (Auto) 0.2, [...] of bilateral pulmonary venous congestion. Reading Location: [place] [address] Physical Exam Narrative GENERAL: Patient appears ill [...] Patient is a 74-year-old lady resident at [facility] who was broughtto the emergency department with [...] intensive care unit with consult placed to nursing home assistant administrator 2. Septic shock ? Secondary to a [...] documentation, 55Minutes Charges/Coding Visit Charges Inpatient E&M: 18351 [facility] Hosp L3 08/14/24 4242 Cosigner Signature (if applicable): CC: ~ Signed [facility]03-06-2025 Consult note Author Paresh Brunson [facility] Note Date/Time August 13, 2024 9:35 pm [facility] Medical Records Department [address] [place] [address] Consultation - Game Advisor 08/13/242103 MR#: [id number] Acct: [id number] Name: ADRIENNE MORRISON Rep #:[id number] : 1950 74 From: Paresh Brunson MD [...] prior GFR trending who presents to the [facility] ED on 08/13/2024 with history of [...] noted she was administered 2.5L NS resuscitation. [facility] Medical History Epilepsy Hammer toes of both [...] D&C Social History household members: none housing: alf Smoking Status: Never smoker second hand exposure: [...] Atorvastatin Calcium 20 Mg Tablet PO QHS [facility] Calamine/Phenol 1 applic 08/13/24 22:00 Menthol/Lanolin/Calamine/Znox 113 Gm Tube TOPICAL 4X/DAY [facility] Protocol Clonazepam 0.5 mg 08/13/24 22:00 Clonazepam 0.5 Mg Tablet PO BID [facility] Clopidogrel Bisulfate 75 mg 08/14/24 10:00 Clopidogrel Bisulfate 75 Mg Tablet PO DAILY [facility] Escitalopram Oxalate 10 mg 08/14/24 10:00 Escitalopram Oxalate 10 Mg Tablet PO DAILY [facility] Heparin Sodium (Porcine) 0 unit 08/13/24 21:05 [...] 08/13/24 20:54 / Sodium Chloride CONT INF .[id number] [facility] Protocol 5 MCG/MIN Heparin Sodium/Dextrose 25,000 units in 250 mls @ 18 mls/hr 08/13/24 20:54 CONT INF .[id number] [facility] Protocol As Directed Vancomycin IV-PHARMACY TO DOSE 500 mls @ 250 mls/hr 08/13/24 20:54 1 each/ Sodium Chloride IV X1 PRN Rx to Dose Protocol Ceftriaxone Sodium 2 gm/ 50 mls @ 100 mls/hr 08/14/24 10:00 Sodium Chloride IV 08/21/24 10:01 Q24 [facility] Metronidazole 500 mg in 100 mls @ 100 mls/hr 08/13/24 22:00 Flagyl IV Q8 [facility] Latanoprost 1 drp 08/13/24 22:00 Latanoprost 0.005% 1 Bottle OPHTHALMIC QHS [facility] Melatonin 3 mg 08/13/24 20:54 Melatonin 3 Mg Tablet PO QHS PRN PRN INSOMNIA Montelukast Sodium 10 mg 08/13/24 22:00 Montelukast 10 Mg Tablet PO QHS [facility] Non-Formulary Medication 2 drp 08/13/24 20:54 Propylene Glycol-Glycerin [Artificial Tears(Glycerin-Peg)] OPHTHALMIC Q4H PRN dry eye(s) Non-Formulary Medication 17 gm 08/13/24 20:54 Polyethylene Glycol 3350 [Miralax] PO DAILY PRN CONSTIPATION Non-Formulary Medication 60 mg 08/14/24 20:30 Phenobarbital PO TUFR JEFFREY Non-Formulary Medication 180 mg 08/13/24 20:54 Phenobarbital PO SUMOWETHSA JEFFREY Non-Formulary Medication 120 mg 08/14/24 08:00 Phenobarbital PO 0800 [facility] Non-Formulary Medication 6 mg 08/13/24 22:00 Paliperidone PO QHS [facility] Non-Formulary Medication 200 mcg 08/13/24 22:00 Levothyroxine PO QHS [facility] Non-Formulary Medication 2 inh 08/13/24 22:00 Fluticasone Propionate INHALATION BID [facility] Nystatin 1 applic 08/13/24 22:00 Nystatin Powder 15gm Bottle TOPICAL TID [facility] Protocol Ondansetron HCl 4 mg 08/13/24 20:54 Ondansetron 4 Mg/2 Ml Vial IV Q8H PRN PRN NAUSEA/VOMITING Pantoprazole Sodium 40 mg 08/13/24 22:00 Pantoprazole Sodium 40 Mg Tablet PO BID [facility] Prochlorperazine Edisylate 5 mg 08/13/24 20:54 Prochlorperazine 10 Mg/2 Ml Vial IV Q4H PRN PRN Breakthrough Nausea/Vomiting Quetiapine Fumarate 100 mg 08/13/24 22:00 Quetiapine 100 Mg Tablet PO QHS [facility] Protocol Senna/Docusate Sodium 2 tablet 08/13/24 20:54 [...] 90.8 H, Lymph % (Auto) 3.6 L, [place] % (Auto) 5.2, Eos % (Auto) 0.0, [...] Sl. Cloudy, Urine pH 6.0, Ur Specific Dalton 1.015, Urine Protein 30 H, Urine Glucose [...] of bilateral pulmonary venous congestion. Reading Location: [place] [address] CXR reviewed personally Assessment and Plan . [...] applicable): CC: Dr. Panda Littlejohn MD~ Signed [facility] Work Phone: 1(857) 146-632703-06-2025 Consult note Author Panda Rock [facility] Note Date/Time August 13, 2024 9:10 pm [facility] Medical Records Department [address] [place] [address] Pharmacokinetic/Renal -Consult 08/13/24 220 MR#: [id number] Acct: [id number] Name: ADRIENNE MORRISON Sohail Rep #:[id number] : 1950 74 From: Panda Powers od [...] Signature (if applicable): Date CC: ~ Signed [facility] Work Phone: 1(873) 417-269503-06-2025 History and physical note Author Ibeth Parker [facility] Note Date/Time August 13, 2024 8:03 pm [facility] Medical Records Department [address] [place] [address] H&P Exam - Hospitalist 08/13/241913 MR#: [id number] Acct: [id number] Name: ADRIENNE MORRISON Rep #:[id number] : 1950 74 From: Iebth Parker MD PCP: Dr. Panda Littlejohn MD [...] prior GFR trending who presents to the [facility] ED on 08/13/2024 with history of [...] noted she was administered 2.5L NS resuscitation. [facility] Medical History Epilepsy Hammer toes of both [...] History (Updated 08/13/24 @ 20:[address] Iebth Parker MD) household members: none housing: alf Smoking Status: Never smoker second hand exposure: [...] 90.8 H, Lymph % (Auto) 3.6 L, [place] % (Auto) 5.2, Eos % (Auto) 0.0, [...] Sl. Cloudy, Urine pH 6.0, Ur Specific Dalton 1.015, Urine Protein 30 H, Urine Glucose [...] of bilateral pulmonary venous congestion. Reading Location: [place] [address] Assessment & Plan Assessment/Plan (1) Septic shock: PLAN: Plan The patient is a 74 y/o F w/ PMHx: Morbid obesity, Seizure disorder/epilepsy, MARY, COPD/Asthma, Hx CVA, GERD, Hypothyroidism, Chronic anemia, HTN, HLD, Rheumatoid arthritis, Anxiety and Depression/Schizophrenia, CKD stage II per prior GFR trending who presents to the [facility] ED on 08/13/2024 with history of [...] will immediately obtain stat ABG now,will consult nursing home assistant administrator per protocol, maintain on cardiac monitoring, continue [...] Vasopressors started Charges/Coding Visit Charges Inpatient E&M: 32778 Init Hosp L3 Procedures Hospitalists Procedures: 68413 Advncd Care Plan 30 Min 08/13/242102 <Electronically signed by Ibeth Parker MD> Cosigner Signature (if applicable): CC: Dr. Ibeth Parker MD; Dr. Panda Littlejohn MD~ Signed [facility] Work Phone: [phone]) [phone] Consult note [facility] Medical Records Department [address] [place] [address] Consultation - Game Advisor 08/13/242103 MR#: [id number] Acct: [id number] Name: ADRIENNE MORRISON Rep #:[id number] : 1950 74 From: Paresh Brunson MD [...] prior GFR trending who presents to the [facility] ED on 08/13/2024 with history of [...] 79/60, respiratory rate 19, 94% on 70% QpY2MbEST, CBC with WBC 15, hemoglobin 0.9, MCV [...] noted she was administered 2.5L NS resuscitation. [facility] Medical History Epilepsy Hammer toes of both [...] D&C Social History household members: none housing: alf Smoking Status: Never smoker second hand exposure: [...] Atorvastatin Calcium 20 Mg Tablet PO QHS [facility] Calamine/Phenol 1 applic 08/13/24 22:00 Menthol/Lanolin/Calamine/Znox 113 Gm Tube TOPICAL 4X/DAY [facility] Protocol Clonazepam 0.5 mg 08/13/24 22:00 Clonazepam 0.5 Mg Tablet PO BID [facility] Clopidogrel Bisulfate 75 mg 08/14/24 10:00 Clopidogrel Bisulfate 75 Mg Tablet PO DAILY [facility] Escitalopram Oxalate 10 mg 08/14/24 10:00 Escitalopram Oxalate 10 Mg Tablet PO DAILY [facility] Heparin Sodium (Porcine) 0 unit 08/13/24 21:05 [...] 08/13/24 20:54 / Sodium Chloride CONT INF .[id number] [facility] Protocol 5 MCG/MIN Heparin Sodium/Dextrose 25,000 units in 250 mls @ 18 mls/hr 08/13/24 20:54 CONT INF .[id number] [facility] Protocol As Directed Vancomycin IV-PHARMACY TO DOSE 500 mls @ 250 mls/hr 08/13/24 20:54 1 each/ Sodium Chloride IV X1 PRN Rx to Dose Protocol Ceftriaxone Sodium 2 gm/ 50 mls @ 100 mls/hr 08/14/24 10:00 Sodium Chloride IV 08/21/24 10:01 Q24 [facility] Metronidazole 500 mg in 100 mls @ 100 mls/hr 08/13/24 22:00 Flagyl IV Q8 [facility] Latanoprost 1 drp 08/13/24 22:00 Latanoprost 0.005% 1 Bottle OPHTHALMIC QHS [facility] Melatonin 3 mg 08/13/24 20:54 Melatonin 3 Mg Tablet PO QHS PRN PRN INSOMNIA Montelukast Sodium 10 mg 08/13/24 22:00 Montelukast 10 Mg Tablet PO QHS [facility] Non-Formulary Medication 2 drp 08/13/24 20:54 Propylene Glycol-Glycerin [Artificial Tears(Glycerin-Peg)] OPHTHALMIC Q4H PRN dry eye(s) Non-Formulary Medication 17 gm 08/13/24 20:54 Polyethylene Glycol 3350 [Miralax] PO DAILY PRN CONSTIPATION Non-Formulary Medication 60 mg 08/14/24 20:30 Phenobarbital PO TUFR [facility] Non-Formulary Medication 180 mg 08/13/24 20:54 Phenobarbital PO SUMOWETHSA [facility] Non-Formulary Medication 120 mg 08/14/24 08:00 Phenobarbital PO 0800 JEFFREY Non-Formulary Medication 6 mg 08/13/24 22:00 Paliperidone PO QHS [facility] Non-Formulary Medication 200 mcg 08/13/24 22:00 Levothyroxine PO QHS [facility] Non-Formulary Medication 2 inh 08/13/24 22:00 Fluticasone Propionate INHALATION BID [facility] Nystatin 1 applic 08/13/24 22:00 Nystatin Powder 15gm Bottle TOPICAL TID [facility] Protocol Ondansetron HCl 4 mg 08/13/24 20:54 Ondansetron 4 Mg/2 Ml Vial IV Q8H PRN PRN NAUSEA/VOMITING Pantoprazole Sodium 40 mg 08/13/24 22:00 Pantoprazole Sodium 40 Mg Tablet PO BID [facility] Prochlorperazine Edisylate 5 mg 08/13/24 20:54 Prochlorperazine 10 Mg/2 Ml Vial IV Q4H PRN PRN Breakthrough Nausea/Vomiting Quetiapine Fumarate 100 mg 08/13/24 22:00 Quetiapine 100 Mg Tablet PO QHS [facility] Protocol Senna/Docusate Sodium 2 tablet 08/13/24 20:54 [...] 90.8 H, Lymph % (Auto) 3.6 L, [place] % (Auto) 5.2, Eos % (Auto) 0.0, [...] Sl. Cloudy, Urine pH 6.0, Ur Specific Dalton 1.015, Urine Protein 30 H, Urine Glucose [...] of bilateral pulmonary venous congestion. Reading Location: [place] [address] CXR reviewed personally Assessment and Plan . [...] applicable): CC: Dr. Panda Littlejohn MD~ Signed [facility]03-06-2025 Evaluation note* Diagnosis Onset Date Resolution Status Admit Date Congestive heart failure acute August 13, 2024 7:28pm NSTEMI (non-ST elevated myocardial infarction) acute August 7:28pm Sepsis acute August 13 7:28pm Septic shock acute August 13, 025 7:28pm Super obesity acute August 13, 2024 7:28pm Type 2 MD (myocardial infarction) ac waldo August 13, 2024 7:28pm UTI (urinary tract infection) acute August 13, 2024 7:28pm Wheezing acute August 13 7:28pm [facility] Work Phone: 1(783) 226-557703-06-2025 Consult note [facility] Medical Records Department [address] [place] [address] Pharmacokinetic/Renal -Consult 08/13/242208 MR#: [id number] Acct: [id number] Name: ADRIENNE MORRISON Rep #:[id number] : 1950 74 From: Panda Powers od [...] Signature (if applicable): Date CC: ~ Signed [facility]03-06-2025 Discharge summary Author Segundo Juarez [facility] Note Date/Time August 13, 2024 7:00 pm [facility] Medical Records Department [address] [place] [address] Emergency Department Summary 08/13/24 MR#: [id number] Acct: [id number] Name: ADRIENNE MORRISON Rep #:[id number] : 1950 74 From: Segundo Juarez DO [...] states that she feels short of breath [facility] Medical History Epilepsy Hammer toes of [...] following commands knew that she was at [facility] Skin: Warm, dry, intact Const Vital Signs: [...] 90.8 H Lymph % (Auto) 3.6 L [place] % (Auto) 5.2 Eos % (Auto) 0.0 [...] Sl. Cloudy Urine pH 6.0 Ur Specific Dalton 1.015 Urine Protein 30 H Urine Glucose [...] of bilateral pulmonary venous congestion. Reading Location: [place] [address] Discharge Plan Triage Chief Complaint: Shortness of Breath ED Provider: Segundo Juarez Dx/Rx/DC Orders Clinical Impression: Acute hypoxic respiratory failure, UTI (urinary tract infection), CHF exacerbation, Acidosis, lactic, Type 2 MD (myocardial infarction) Prescriptions: No Action albuterol sulfate [...] Referrals: Richa Daniels MD [Med Staff - Attractions Associate] - Print Language: Yi Disposition Disposition: Acute Care Hospital [facility] What to do if you have Problems For any increased pain, shortness of breath, bleeding, nausea or vomiting, chestpain, or any unexpected problems, contact your Primary Care Provider. Call [facility] ([phone]) or report to the closest Emergency Room. Call 911 if necessary. 08/13/241943 <Electronically signed by Segundo Juarez DO> Cosigner Signature (if applicable): CC: Dr. Panda Littlejohn MD ~ Signed [facility] Work Phone: 1(224) 628-636703-06-2025 History and physical note [facility] Medical Records Department [address] [place] [address] H&P Exam - Hospitalist 08/13/241913 MR#: [id number] Acct: [id number] Name: ADRIENNE MORRISON Rep #:[id number] : 1950 74 From: Ibeth Parker MD [...] prior GFR trending who presents to the [facility] ED on 08/13/2024 with historyof fatigue, [...] noted she was administered 2.5L NS resuscitation. [facility] Medical History Epilepsy Hammer toes of both [...] Ibeth Parker MD) household members: none housing: alf Smoking Status: Never smoker second hand exposure: [...] 90.8 H, Lymph % (Auto) 3.6 L, [place] % (Auto) 5.2, Eos % (Auto) 0.0, [...] Sl. Cloudy, Urine pH 6.0, Ur Specific Dalton 1.015, Urine Protein 30 H, Urine Glucose [...] of bilateral pulmonary venous congestion. Reading Location: [facility] Assessment & Plan Assessment/Plan (1) Septic shock: PLAN: Plan The patient is a 74 y/o F w/ PMHx: Morbid obesity, Seizure disorder/epilepsy, MARY, COPD/Asthma, Hx CVA, GERD, Hypothyroidism, Chronic anemia, HTN, HLD, Rheumatoid arthritis, Anxiety and Depression/Schizophrenia, CKD stage II per prior GFR trending who presents to the [facility] ED on 08/13/2024 with historyof fatigue, [...] will immediately obtain stat ABG now,will consult nursing home assistant administrator per protocol, maintain on cardiac monitoring, continue [...] Vasopressors started Charges/Coding Visit Charges Inpatient E&M: 44887 Init Hosp L3 Procedures Hospitalists Procedures: 12722 Advncd Care Plan 30 Min 08/13/242102 Cosigner Signature (if applicable): CC: Dr. Ibeth Parker MD; Dr. Panda Littlejohn MD~ Signed [facility]03-06-2025 Discharge summary [facility] Medical Records Department [address] [place] [address] Emergency Department Summary 08/13/24 MR#: [id number] Acct: [id number] Name: ADRIENNE MORRISON Rep #:[id number] : 1950 74 From: Segundo Juarez DO [...] states that she feels short of breath [facility] Medical History Epilepsy Hammer toes of [...] following commands knew that she was at [facility] Skin: Warm, dry, intact Const Vital Signs: [...] 90.8 H Lymph % (Auto) 3.6 L [place] % (Auto) 5.2 Eos % (Auto) 0.0 [...] Sl. Cloudy Urine pH 6.0 Ur Specific Dalton 1.015 Urine Protein 30 H Urine Glucose [...] of bilateral pulmonary venous congestion. Reading Location: [place] [address] Discharge Plan Triage Chief Complaint: Shortness of Breath ED Provider: Segundo Juarez Dx/Rx/DC Orders Clinical Impression: Acute hypoxic respiratory failure, UTI (urinary tract infection), CHF exacerbation, Acidosis, lactic, Type 2 MD (myocardial infarction) Prescriptions: No Action albuterol sulfate [...] Referrals: Richa Daniels MD [Med Staff - Attractions Associate] - Print Language: Yi Disposition Disposition: Acute Care [facility] What to do if you have Problems For any increased pain, shortness of breath, bleeding, nausea or vomiting, chestpain, or any unexpected problems, contact your Primary Care Provider. Call [facility] ([phone]) or report tothe closest Emergency Room. Call 911 if necessary. 08/13/241943 Cosigner Signature (if applicable): CC: Dr. Panda Littlejohn MD ~ Signed [facility]03-06-2025 Radiology Diagnostic study note [facility] Imaging Services [address] [facility] [place] [address] Chest PA and Lateral MR#: [id number] Acct: [id number] Name: ADRIENNE MORRISON Rep #: [id number] : 1950 F 74 From: Jania Esquivel MD PCP: Dr. Panda Littlejohn MD Status: REG ER Study:Chest PA and Lateral Date of Exam: 08/13/24 Exam# [id number] Ordering Dr: Michelle Juarez DO PROCEDURE: AP [...] of bilateral pulmonary venous congestion. Reading Location: [place] [address] CC: Dr. Panda Littlejohn MD; Dr. Segundo Juarez DO ~ Trucker: Signed [facility]03-06-2025 Radiology Diagnostic study note [facility] Imaging Services [address], [place] [address] Chest PA and Lateral MR#: [id number] Acct: [id number] Name: ADRIENNE MORRISON Rep #: [id number] : 1950 F 74 From: Jania Esquivel MD PCP: Dr. Panda Littlejohn MD Status: REG ER Study:Chest PA and Lateral Date of Exam: 08/13/24 Exam# [id number] Ordering Dr: Michelle Juarez DO PROCEDURE: AP [...] of bilateral pulmonary venous congestion. Reading Location: [place] [address] CC: Dr. Panda Littlejohn MD; Dr. Segundo Juarez DO ~ Trucker: Signed [facility]03-06-2025 Discharge summary Author Segundo Juarez [facility] Note Date/Time August 13, 2024 8:00 pm [facility] Medical Records Department [address] [place] [address] Emergency Department Summary 08/13/24 MR#: [id number] Acct: [id number] Name: ADRIENNE MORRISON Rep #:[id number] : 1950 74 From: Segundo Juarez DO [...] states that she feels [facility] Medical History Epilepsy Hammer toes of both [...] following commands knew that she was at [facility] Skin: Warm, dry, intact Const Vital Signs: [...] 90.8 H Lymph % (Auto) 3.6 L [place] % (Auto) 5.2 Eos % (Auto) 0.0 [...] Sl. Cloudy Urine pH 6.0 Ur Specific Dalton 1.015 Urine Protein 30 H Urine Glucose [...] of bilateral pulmonary venous congestion. Reading Location: [place] [address] Discharge Plan Triage Chief Complaint: Shortness of Breath ED Provider: Segundo Juarez Dx/Rx/DC Orders Clinical Impression: Acute hypoxic respiratory failure, UTI (urinary tract infection), CHF exacerbation, Acidosis, lactic, Type 2 MD (myocardial infarction) Prescriptions: No Action albuterol sulfate [...] Referrals: Richa Daniels MD [Med Staff - Attractions Associate] - Print Language: Yi Disposition Disposition: Acute Care [facility] What to do if you have Problems For any increased pain, shortness of breath, bleeding, nausea or vomiting, chestpain, or any unexpected problems, contact your Primary Care Provider. Call [facility] ([phone]) or report to the closest Emergency Room. Call 911 if necessary. 08/13/241943 <Electronically signed by Segundo Juarez DO> Kanaigner Signature (if applicable): CC: Dr. Panda Littlejohn MD ~ Signed [facility] Work Phone: 1(981) 860-205410-07-2024 [facility]07-26-2021 NoteHNO ID: [id number] Author: Dia Berry PA-C Service: ? Author Type: Physician Senior Net Software Developer Type: Progress Notes Filed: 01/02/2021 8:00 PM Note Text: FOLLOW UP VISIT - ENDOSCOPY NAME: Adrienne Morrison [facility] NO.: [id number] DATE OF SERVICE: 12/30/2020 : 1950 REFERRING [...] and communicating results to the patient/family/caregiver. [facility] NoteHNO ID: [id number] Author: Dia Berry PA-C Service: ? Author Type: Physician Senior Net Software Developer Type: Progress Notes Filed: 11/28/2020 12:48 AM [...] OF Seizures - Schizophrenia (HCC) Pratibha Rick child care development specialist at [facility] - Stroke (cerebrum) (HCC) - Unspecified asthma(493.90) PAST SURGICAL HISTORY Procedure Laterality Date - COLONOSCOP W/ OR W/O [facility] SPEC 05/09/2005 Colonoscopy - COLONOSCOP W/ OR W/O [facility] SPEC 10/04/2014 Colonoscopy - COLONOSCOPY W/BX 05/17/2010 - DANDC, DIAG AND/OR THERAPEUTIC Dilation AND curettage - EGD W/O [facility] SPECIMEN W/BX 01/30/2012 - KNEE SCOPE,DIAGNOSTIC Arthroscopy, [...] Pills [Other], Steroids [Betamethasone Dipropionate], Tylenol Cold [Qmg-Ymfjhqxxy-Ko-Acetaminophen], Valium [Diazepam], and Vicodin [Hydrocodone-Acetaminophen] PERSONAL HISTORY: [...] have had colon polyps. (more content not included)...[facility] Author Lc Head [facility] Note Date/Time August 17, 2024 11: 22am [facility] Medical Records Department [address] [place] [address] Discharge Summary 08/17/24 1118 MR#: [id number] Acct: [id number] Name: ADRIENNE MORRISON Rep #:[id number] : 1950 74 From: Lc Head MD PCP: Dr. Panda Littlejohn MD Status:ADM IN Location: [id number] Providers Date of Admission: 08/13/24 Date of Discharge: 08/17/24 Primary Care Physician: Dr. Panda Littlejohn MD Consultations 08/13/24 20:54 Consult: Cardiology Routine Consulting Provider: Rubina Saini Reason for Consult: Resp failure, HF Exac, NSTEMI demand related likely, Shock/UTI/PNA EMERGENT Consult: No Notified: Yes Date Notified: 08/13/24 Time Notified: 20:45 Method of Notification: Text Consult: Game Advisor / Pulmonary Medicine Routine Consulting Provider: Pulmonary Medicine [facility] Reason for Consult: Resp distress, Septic shock, [...] - Heart failure, unspecified (2) Type 2 MD (myocardial infarction): Status: Acute Code(s): I21.A1 - Myocardial infarction type 2 Plan Patient is a 74-year-old lady resident at [facility] who was broughtto the emergency department with [...] intensive care unit with consult placed to nursing home assistant administrator ? 08/16/2024; patient was placed on BiPAP at night. With patient going into intermittent respiratory distress the day prior ordered portable chest x-ray this a.m. for subsequent ? Patient was assessed for home oxygen prior [facility] 2. Septic shock ? Secondary [...] 79.9 H, Lymph % (Auto) 11.3 L, [place] % (Auto) 6.9, Eos % (Auto) 1.0, [...] Up: Richa Daniels MD [Med Staff - Attractions Associate] - Panda Littlejohn MD [Primary Care Provider] - Within 2 Weeks Disposition Disposition (needs filled in before D/C Order can be placed): [facility] Charges/Coding Visit Charges Inpatient E&M: 66071 Disch Hosp >30min 08/17/24 1122 <Electronically signed by Lc Head MD> Cosigner Signature (if applicable): CC: Dr. Lc Head MD; Dr. Panda Littlejohn MD~ Signed [facility] Work Phone: Discharge summary Author Lc Head [facility] Note Date/Time August 17, 2024 11: 23am [facility] Medical Records Department [address] [place] [address] Transfer to [facility] MR#: [id number] Acct: [id number] Name: ADRIENNE MORRISON Rep #:[id number] : 1950 74 From: Lc Head MD PCP: Dr. Panda Littlejohn MD Status:ADM IN Certification of patient admission REQUIRED AT TIME OF ADMISSION. I CERTIFY THAT POST-HOSPITAL ECF SERVICES ARE REQUIRED TO BE GIVEN ON AN IN-PATIENT BASIS BECAUSE OF THE ABOVE NAMED PATIENT'S NEED FOR PRISON CARE ON A CONTINUING BASIS FOR THE CONDITION(S) FOR WHICH HE/SHE WAS RECEIVING IN-PATIENT HOSPITAL SERVICES PRIOR TO HIS/HER TRANSFER TO THE [facility]. 08/17/24 1123<Electronically signed by Lc Head MD> [...] - Heart failure, unspecified (2) Type 2 MD (myocardial infarction): Status: Acute Code(s): I21.A1 - [...] intensive care unit with consult placed to nursing home assistant administrator ? 08/16/2024; patient was placed on BiPAP [...] Up: Richa Daniels MD [Med Staff - Attractions Associate] - Panda Littlejohn MD [Primary Care Provider] - Within 2 Weeks Disposition Disposition (needs filled in before D/C Order can be placed): [facility] 08/17/24 1123 <Electronically signed by Lc Head MD> Cosigner Signature (if applicable): CC: Dr. Rubina Saini MD; Dr. Ibeth Parker MD; Dr. Panda Littlejohn MD ~ [facility] Work Phone: Evaluation note* Diagnosis Onset Date Resolution Status Asthma chronic MARY (obstructive sleep apnea) chronic Schizophrenia chronic [facility] Work Phone: Evaluation noteNo assessment information available [facility] Work Phone: Evaluation note* Diagnosis Onset Date Resolution Status Asthma chronic MARY (obstructive sleep apnea) chronic [facility] Work Phone: Reason for referral (narrative)No [facility] for [facility] Summary Purpose Family History No [...] Will Yes June 16 8:02pm Power of Cane Pusher Yes June 16 8:02pm Advance Directive Response Recorded Date/ Time Advance Directives Yes March 28, 2013 11:17pm Living Will Yes June 16 7:02pm Power of Cane Pusher Yes June 16 7:02pm Advance Directive Response Recorded Date/ Time Living Will Yes August 13, 2024 3:38pm Power of Cane Pusher Yes August 13 3:38pm Name of Medical Power of Cane Pusher Colleen Armendariz August 13, 2024 3:38pm Advance Directives Yes March 28, 2013 11:17pm Advance Directive Response Recorded Date/ Time Living Will Yes August 13, 2024 9:49pm Power of Cane Pusher Yes August 13 9:49pm Name of Medical Power of Cane Pusher Colleen Meltoncoaimee August 13, 2024 9:49pm Advance [...] sleep apnea) Chief Complaint 6 M FU [facility] WORK Reason for Visit Asthma MARY (obstructive sleep apnea) Schizophrenia Chief Complaint Admit Date [facility] LAB WORK June 04 5:00am SEPTIC SHOCK, HF EXAC, NSTEMI, UTI, RESP FAILURE August 13, 2024 7:28pm Chief Complaint Admit Date [facility] LAB WORK June 04 5:00am SEPTIC SHOCK, [...] August 13, 2024 7:28 pm Type 2 MD (myocardial infarction) August 13, 2024 7:28pm UTI (urinary tract infection) August 13, 2024 7:28pm Wheezing August 13, 2024 7:28 pm Chief Complaint Admit Date [facility] LAB WORK October 21, 2024 5:0 0am 1 Y FU December 16, 2024 1:07p m Additional Source Comments INFORMATION SOURCE (unrecogn ized section and content) DATE CREATED AUTHOR 07/02/2021 [facility] DATE CREATED AUTHOR AUTHOR'S ORGANIZ ATION 02/13/2024 Marcela Montalvo [facility] DATE CREATED AUTHOR AUTHOR'S ORGANIZ ATION 02/16/2025 [facility] Goals (unrecognized section and content) [...] Provider, Referrin g Provider Active Heide Figueroa ROOFING LAYER, ROOFING LAYER-C Attending Provider Active Team Status: Inactive Member [...] Sta rt: August 13, 2024 Heide Figueroa ROOFING LAYER, ROOFING LAYER-C Other Provider Active Start: August 13, 2024 Elisa Jolly , ROOFING LAYER-C Other Provider Active St art: August 13, [...] rt: August 14, 2024 Heide Figueroa NP, ROOFING LAYER-C Other Provider Active Start: August 14, 2024 [...] Sta rt: August 14, 2024 Heide Figueroa ROOFING LAYER, ROOFING LAYER-C Other Provider Active Start: August 14, 2024 [...] End: December 16, 2024 Heide Figueroa NP, ROOFING LAYER-C Attending Provider Active Start: December 16, 2024 [...] BE BASED ON THE PRIMARY CLINICAL RECORDS. [facility] [employer] [facility]. provides no warranty or guarantee of the accuracy or completeness of information in this document.
[2025-02-28 15:36] LABS: Allen Test Positive; Base Excess 13 mmol/L (-2 to +2); FI02 8.0; PO2 65 mmHG (75-100); SITE L Radial; SO2 93 % (95-99)
[2025-02-28 15:41] LABS: Troponin T High Sens 4 HR 22 ng/L (<=14)
--- NOTE | 2025-02-28 16:28 | PCM.HP.STD ---
HPI - General General Date of Admission: 02/28/25 HPI Narrative SIERRA MORRISON, is a 74 F who presents to the hospital from the skilled nursing with altered mental status. She is unable to provide any history and there is sisters at bedside who provide a limited history with the fact that she is ANO x 3 at baseline and was fine on Saturday except she had an episode of staring that the skilled nursing thought could be a seizure and then overnight Saturday into Saturday she became more confused. Today she is nonverbal but will track and respond to voice. In the emergency room workup was essentially negative she was afebrile without a leukocytosis, UA was negative for urinary tract infection and CT of the chest abdomen pelvis showed some ground glass opacities however her proBNP was normal and indicate that she is not in a significant heart failure exacerbation, though she is morbidly obese which will falsely lower her proBNP. A viral panel was not checked in the ER which we will do on admission. Of note in the emergency room she was on room air however when she arrived to the floor she all of a sudden needed 8 L nasal cannula unclear as to where this oxygen requirement is coming from at the moment and will be worked up though she does not appear to be significantly short of breath. [facility] Medical History (Updated 02/28/25 @ 16:[address] Luis Hernández MD) Wears hearing aid in both ears Hearing loss, left Hearing loss, right Chronic pain CPAP (continuous positive airway pressure) dependence DVT (deep venous thrombosis) Seizures History of ESBL E. coli infection Epilepsy Hammer toes of both feet Cerebrovascular disease Age related cataract Wears glasses Wears hearing aid Rash Walker as ambulation aid Easy bruising History of diverticulitis Gastric reflux Non-smoker Shortness of breath on exertion Vericose veins History of CVA (cerebrovascular accident) Seizure disorder Thyroid disorder Rheumatoid arthritis Diverticulitis Sleep apnea COPD (chronic obstructive pulmonary disease) Diabetes mellitus type 2 in obese Benign essential hypertension Convulsion Osteoarthritis Hypothyroid TIA (transient ischemic attack) Hypercholesterolemia Anemia in chronic illness Allergic rhinitis Glaucoma Morbid obesity Peripheral venous insufficiency GERD (gastroesophageal reflux disease) Asthma Schizophrenia Depression Anxiety disorder Hyperlipidemia Hypertension Home Medications ?Medication ?Instructions ?Recorded ?Last Taken ?Type metoprolol succinate 100 mg 100 mg PO QHS 03/28/13 12/19/20 History tablet,extended release 24 hr paliperidone 6 mg tablet,extended 6 mg PO QHS 01/31/17 03/10/24 History release 24 hr fluticasone propionate 220 2 inh inhalation BID 11/27/23 03/10/24 History mcg/actuation HFA aerosol inhaler latanoprost 0.005 % eye drops 1 drp ophthalmic (eye) QHS 11/27/23 03/10/24 History losartan 50 mg tablet 50 mg PO DAILY blood pressure 11/27/23 03/10/24 History phenobarbital 60 mg tablet 60 mg PO Q12H seizures 11/27/23 Unknown History polyethylene glycol 3350 17 17 g PO DAILY PRN CONSTIPATION 11/27/23 03/10/24 History gram/dose oral powder (Miralax) propylene glycol 1 %-glycerin 0.3 2 drp ophthalmic (eye) Q4H PRN dry 11/27/23 Unknown History % eye drops (Artificial Tears eye(s) (glycerin-peg)) acetaminophen 500 mg tablet 500 mg PO Q6H PRN pain 03/11/24 03/10/24 History cholecalciferol (vitamin D3) 25 50 mcg PO DAILY supplement 03/11/24 Unknown History mcg (1,000 unit) tablet levothyroxine 200 mcg tablet 200 mcg PO QHS 03/11/24 03/10/24 History escitalopram oxalate 10 mg tablet 10 mg PO DAILY #0 tabs 03/16/24 Unknown Rx albuterol sulfate 90 mcg/actuation 2 puff inhalation Q4H PRN 08/13/24 Unknown History aerosol inhaler shortness of breath or wheezing pantoprazole 40 mg tablet,delayed 40 mg PO BID 08/13/24 Unknown History release (Protonix) quetiapine 100 mg tablet 50 mg PO QHS 08/13/24 Unknown History triamcinolone acetonide 0.1 % 1 applic topical Q8 PRN itching 08/13/24 Unknown History topical cream furosemide 40 mg tablet (Lasix) 40 mg PO DAILY #90 tabs 08/17/24 Unknown Rx hydrochlorothiazide 25 mg tablet 25 mg PO QDAY 12/16/24 Unknown History CPAP - Continuous Positive Airway 02/28/25 Unknown History Pressure([facility] INFORMATIONAL USE ONLY) albuterol sulfate 90 mcg/actuation 2 inh inhalation Q4H PRN wheezing 02/28/25 Unknown History aerosol inhaler bisacodyl 10 mg rectal suppository 10 mg AR DAILY PRN constipation 02/28/25 Unknown History quetiapine 50 mg tablet 50 mg PO QHS schizo 02/28/25 Unknown History Allergy/AdvReac Type Severity Reaction Status Date / Time amoxicillin Allergy NEEDS Verified 02/28/25 10:33 FOLLOW-UP codeine Allergy Shortness Verified 02/28/25 10:33 of breath cyclobenzaprine (From Allergy NEEDS Verified 02/28/25 10:33 Flexeril) FOLLOW-UP dextromethorphan HBr (From Allergy Shortness Verified 02/28/25 10:33 Tylenol Cold Multi-Symptom) of breath diazepam (From Valium) Allergy Shortness Verified 02/28/25 10:33 of breath fluticasone (From Advair Allergy NEEDS Verified 02/28/25 10:33 Diskus) FOLLOW-UP Food Allergies: Uncoded Allergy Shortness Verified 02/28/25 10:33 of breath guaifenesin (From Tylenol Allergy Shortness Verified 02/28/25 10:33 Cold Multi-Symptom) of breath hydrocodone bitartrate (From Allergy Shortness Verified 02/28/25 10:33 Vicodin) of breath iodine Allergy Anaphylaxis Verified 02/28/25 10:33 Latex, Natural Rubber Allergy Shortness Verified 02/28/25 10:33 of breath morphine Allergy Shortness Verified 02/28/25 10:33 of breath NSAIDS (Non-Steroidal Allergy Shortness Verified 02/28/25 10:33 Anti-Inflamma of breath oxaprozin (From Daypro) Allergy NEEDS Verified 02/28/25 10:33 FOLLOW-UP oxycodone Allergy NEEDS Verified 02/28/25 10:33 FOLLOW-UP phenylephrine HCl (From Allergy Shortness Verified 02/28/25 10:33 Tylenol Cold Multi-Symptom) of breath phenytoin (From Dilantin) Allergy NEEDS Verified 02/28/25 10:33 FOLLOW-UP phenytoin sodium (From Allergy Shortness Verified 02/28/25 10:33 Dilantin) of breath phenytoin sodium extended Allergy Shortness Verified 02/28/25 10:33 (From Dilantin) of breath povidone-iodine (From Allergy BLISTERS Verified 02/28/25 10:33 Betadine) pseudoephedrine HCl (From Allergy Shortness Verified 02/28/25 10:33 Tylenol Cold Multi-Symptom) of breath salmeterol (From Advair Allergy NEEDS Verified 02/28/25 10:33 Diskus) FOLLOW-UP shellfish derived Allergy NEEDS Verified 02/28/25 10:33 FOLLOW-UP soap (From Betadine) Allergy BLISTERS Verified 02/28/25 10:33 tetracycline Allergy NEEDS Verified 02/28/25 10:33 FOLLOW-UP tositumomab iodine-131 Allergy NEEDS Verified 02/28/25 10:33 FOLLOW-UP muscle relaxers Allergy Shortness Uncoded 12/16/24 13:26 of breath Family History Mother CVA (cerebral vascular accident) Cancer Depression Diabetes Emphysema lung Hypertension Arthritis Father CVA (cerebral vascular accident) Cancer Depression Diabetes Emphysema lung Hypertension Arthritis Surgical History History of cholecystectomy History of tonsillectomy History of total hysterectomy History of total knee replacement History of bilateral tympanoplasty History of tubal ligation History of D&C Social History household members: none housing: skilled nursing Smoking Status: Never smoker second hand exposure: Yes alcohol intake: never substance use type: does not use what type of physical activity do you participate in: walking do you feel safe at home: Yes ROS Review of Systems ROS Unobtainable: due to mental status Vital Signs Vital Signs Vital Signs: 02/28/25 10:14 02/28/25 10:52 02/28/25 10:53 Temperature 96.4 F L 94 F L Temperature Source Temporal Core Pulse Rate 75 71 Respiratory Rate 16 28 H Respiratory Effort Respiratory Depth Respiratory Pattern Blood Pressure 135/78 H 150/76 H Blood Pressure Mean 97 100 Blood Pressure Source Blood Pressure Position Blood Pressure Location Pulse Ox 93 93 94 Oxygen Delivery Method Room Air Room Air Room Air Oxygen Flow Rate (L/min) Fraction of Inspired Oxygen (FIO2) 02/28/25 11:20 02/28/25 12:00 02/28/25 13:03 Temperature 94.3 F L 95.0 F L 95.8 F L Temperature Source Core Core Core Pulse Rate 74 71 86 Respiratory Rate 16 16 13 Respiratory Effort Respiratory Depth Respiratory Pattern Blood Pressure 142/72 H 116/72 111/60 Blood Pressure Mean 95 86 77 Blood Pressure Source Blood Pressure Position Blood Pressure Location Pulse Ox 97 96 92 Oxygen Delivery Method Room Air Room Air Oxygen Flow Rate (L/min) Fraction of Inspired Oxygen (FIO2) 02/28/25 13:18 02/28/25 14:00 02/28/25 14:00 Temperature 96 F L 96.4 F L 96.8 F L Temperature Source Core Core Pulse Rate 83 81 79 Respiratory Rate 17 19 H 20 H Respiratory Effort Respiratory Depth Respiratory Pattern Blood Pressure 100/56 L 99/55 L 99/55 L Blood Pressure Mean 70 69 67 Blood Pressure Source Blood Pressure Position Blood Pressure Location Pulse Ox 93 91 90 Oxygen Delivery Method Room Air Oxygen Flow Rate (L/min) Fraction of Inspired Oxygen (FIO2) 02/28/25 14:34 02/28/25 14:38 02/28/25 15:00 Temperature 97.5 F L Temperature Source Oral Pulse Rate 88 Respiratory Rate 18 Respiratory Effort Normal Respiratory Depth Normal Respiratory Pattern Normal Blood Pressure 120/60 Blood Pressure Mean 80 Blood Pressure Source Monitor Blood Pressure Position Semi-Fowlers Blood Pressure Location Right Forearm Pulse Ox 92 92 86 Oxygen Delivery Method High Flow High Flow High Flow Oxygen Flow Rate (L/min) 8 8 8 Fraction of Inspired Oxygen (FIO2) 02/28/25 15:45 02/28/25 15:45 Temperature Temperature Source Pulse Rate 81 Respiratory Rate 16 Respiratory Effort Respiratory Depth Respiratory Pattern Blood Pressure Blood Pressure Mean Blood Pressure Source Blood Pressure Position Blood Pressure Location Pulse Ox 92 93 Oxygen Delivery Method Bi-pap Oxygen Flow Rate (L/min) Fraction of Inspired Oxygen (FIO2) 45 45 Weight Weight: 310 lb 3.046 oz Body Mass Index (BMI) 56.7 Physical Exam Narrative General: Alert, Oriented x0, Cooperative, No apparent distress, morbidly obese HEENT: Atraumatic, PERRLA, EOMI, Normocephalic Oral: Moist Mucosa Neck: Supple, No JVD Lungs: Diminished, Normal air movement, No rhonchi, No wheeze, No rales Cardiovascular: Regular rate, Regular Rhythm, Normal S1, Normal S2, No murmurs Abdomen: Soft, Non Tender, Non-Distended, No Hepato-splenomegaly Extremities: No edema, Capillary Refill Less than 3 Seconds Skin: No rashes, No breakdown Musculoskeletal: No Tenderness to Palpation of Joints or Extremities Neurological: No focal neurological deficits, moves all extremities but does not really comply with exam Psych/Mental Status: Flat Results Lab / Micro Data 03/01/25 05:46 03/01/25 05:46 Labs: Laboratory Results - last 24 hr 02/28/25 09:57: WBC 5.5, RBC 3.38 L, Hgb 11.1 L, Hct 33.1 L, MCV 97.9, MCH 32.8 H, MCHC 33.5, RDW Std Deviation 56.2 H, RDW Coeff of P[place] 15.6 H, Plt Count 143 L, MPV 10.6, Immature Gran % (Auto) 0.400, Neut % (Auto) 75.2 H, Lymph % (Auto) 17.9 L, Chase % (Auto) 5.4, Eos % (Auto) 0.9, Baso % (Auto) 0.2, Absolute Neuts (auto) 4.2, Absolute Lymphs (auto) 0.99, Nucleated RBC % 0, Sodium 139, Potassium 4.4, Chloride 98, Carbon Dioxide 27.6, Anion Gap 13, BUN 30 H, Creatinine 0.97, Estim Creat Clear Calc 69.63, Est GFR (MDRD) Non-Af 61, BUN/Creatinine Ratio 31.3 H, Glucose 172 H, Calcium 9.7, Total Bilirubin 0.19, AST 29, ALT 35, Alkaline Phosphatase 127 H, Troponin T High Sens 22 H D, NT pro BNP II 75, Total Protein 7.4, Albumin 4.1, Globulin 3.3, Albumin/Globulin Ratio 1.2, TSH 2.440, Free T4 1.30, Free T3 pg/dL 2.0 L 02/28/25 10:45: Lactic Acid 1.7, Urine Color Yellow, Urine Clarity Clear, Urine pH 7.0, Ur Specific [place] 1.010, Urine Protein 15 H, Urine Glucose (UA) Normal, Urine Ketones Negative, Urine Occult Blood Negative, Urine Nitrite Negative, Urine Bilirubin Negative, Urine Urobilinogen Normal, Ur Leukocyte Esterase Negative, Urine RBC 0-5 SEEN, Urine WBC 0-5 SEEN, Ur Squamous Epith Cells 0 SEEN, Urine Bacteria 0 SEEN, Urine Mucus 0 SEEN, Urine Opiates Screen NEGATIVE, U Buprenorphine Qual NEGATIVE, Ur Oxycodone Screen NEGATIVE, Urine Methadone Screen NEGATIVE, Urine Fentanyl Screen NEGATIVE, Ur Barbiturates Screen PRESUMPTIVE POSITIVE, Ur Phencyclidine Scrn NEGATIVE, Ur Amphetamines Screen NEGATIVE, U Benzodiazepines Scrn PRESUMPTIVE POSITIVE, Urine Cocaine Screen NEGATIVE, U Cannabinoids Screen NEGATIVE 02/28/25 10:46: Ethyl Alcohol < 10.1 02/28/25 12:40: Troponin T Hi Sens 2 Hr 22 H 02/28/25 14:57: Troponin T Hi Sens 4Hr 22 H Micro: Microbiology 02/28/25 10:57 Mucosa - Nose SARS-CoV-2, Influenza & RSV (PCR) - Final ABG Data ABG results: ABG 02/28/25 02/28/25 11:04 15:32 Specimen Type SILVER ART Sample Site Not entered L Radial pH 7.46 H Bicarbonate Actual 36.6 H Total CO2 38 Base Excess 13 H O2 Saturation 93 L O2 % 8.0 ABG pCO2 51.0 H ABG pO2 65 L [place] Test Positive VBG pH 7.40 VBG pO2 78 H VBG HCO3 25 VBG Total CO2 26 VBG O2 Sat (Calc) 95 H VBG Base Excess 0 POC Mix VBG pCO2 Pt Tmp 40.5 L O2 Delivery Device Not entered Cannula Vent Mode Not entered Imaging Radiology Impression Brain CT 02/28/25 10:36 IMPRESSION: No acute intracranial abnormalities. Reading Location: [facility] Chest/Abdomen/Pelvis CT 02/28/25 10:36 IMPRESSION: Diffuse ground-glass densities may represent CHF or pneumonia. Perinephric fat stranding. No hydronephrosis or nephrolithiasis. Correlation with urinalysis is recommended. Reading Location: [id number] Assessment & Plan Assessment/Plan (1) Altered mental status: PLAN: Plan 1. Acute metabolic encephalopathy with acute hypoxic respiratory insufficiency/seizure disorder ? Unclear as to the etiology at the moment as she does not have obvious signs of bacterial infection ? There is some concern for volume overload though proBNP is decidedly normal even in the face of her morbid obesity ? She is requiring 8 L nasal cannula, what is challenging is the fact that she does not appear to be in any kind of respiratory distress. A VBG was obtained that shows a pH of 7.46 ? Will check respiratory panel ? Will trial her on a dose of IV Lasix and then continue with her oral Lasix daily ? She does have a seizure disorder so we will obtain an EEG and a phenobarbital level as well 2. Essential HTN/chronic diastolic CHF ? Echocardiogram from 08/14/2024 with an EF of 60% stage I diastolic dysfunction with an RVSP of 50 mmHg ? proBNP is normal and she has no lower extremity edema, it is difficult to hear posterior breath sounds given body habitus and altered mental status ? Will trial her on IV dose of Lasix but I do not believe that she has CHF exacerbation at this time ? Can resume her home blood pressure medications ? Will monitor and make adjustments as necessary 3. Hypothyroidism ? Stable ? Continue with Synthroid 4. Schizophrenia ? Stable ? Resume her home medications 5. Glaucoma ? Stable ? Continue with her home eyedrops DVT: Lovenox 75 minutes was spent on direct patient care, including documentation as well as chart review and collaboration with colleagues Charges/Coding Visit Charges Inpatient E&M: 29198 Init Hosp L3
[2025-02-28] MEDS: Furosemide 20 MG/2 ML VIAL IV (17:39)
[2025-02-28 20:24] LABS: Ammonia 13.2 umol/L (11-51)
[2025-02-28 20:31] LABS: Procalcitonin 0.07 ng/mL (<=0.10)
--- NOTE | 2025-02-28 21:09 | PCM.HOSP.N ---
Hospitalist Note Ammonia level negative, procalcitonin normal. Patient with emesis event with BIPAP with likely aspiration. Worsened lung sounds. Will administer additional IV lasix, unable to safely take PO. Given this will need to transition back to airvo and defer BIPAP. Given patient requiring notable nursing care will transition her to ICU at this time. She is DNR-CCA, no intubation but her level of care and nursing needs are notably elevated.
--- NOTE | 2025-02-28 22:35 | NURSING ---
Unable to get ahold of SIA Macias. Notified the pt's sister Boo that the patient was transferred to ICU for a higher level of care.
--- NOTE | 2025-02-28 23:15 | CPS ---
AIRVO started due to patient throwing up bile
[2025-03-01] VITALS (31 sets, daily range): BP systolic 80–143; BP diastolic 45–91; PULSE 82–107; RESP 13–21; TEMP 36.5–37.1; O2SAT 90–100; BMI 57.6
--- NOTE | 2025-03-01 05:20 | RAD_ITS ---
PROCEDURE: CHEST 1 VIEW (PORTABLE) 03/01/2025 REASON FOR EXAM: DYSPNEA, COUGH TECHNIQUE: Frontal view of the chest. COMPARISON: August 16, 2024 FINDINGS: There is cardiomegaly with mild central vascular congestion. There is elevation of the right hemidiaphragm, which can indicate paralysis, similar to the prior. There is no focal infiltrate or consolidation. There is no pneumothorax or effusion. No acute bony abnormality is identified. Aortic calcifications are noted. RAD/Chest 1 View (Portable) IMPRESSION: There is cardiomegaly with mild central vascular congestion. There is elevation of the right hemidiaphragm, which can indicate paralysis, si milar to the prior. Reading Location: [facility]
[2025-03-01 06:08] LABS: Hematocrit 29.4 % (37-47); Hemoglobin 9.9 g/dL (12.0-15.0); Immature Granulocytes Count 0.080 X10^3/uL (0.0-0.0); Mean Corp Hgb Conc 33.7 g/dL (32-36); Mean Corpuscular Volume 96.4 fL (81-99); Mean Platelet Vol. 11.0 fl (6.2-12.0); NRBC Flagged by Analyzer 0 % (0-5); Platelet Count 132 K/mm3 (150-450); RBC Distribution Width CV 15.7 % (11.6-14.6); RBC Distribution Width SD 55.5 fl (35.1-43.9); Red Blood Count 3.05 M/mm3 (4.2-5.4); White Blood Count 14.1 K/mm3 (4.4-11.0)
[2025-03-01 06:38] LABS: Anion Gap 14 (5-15); BUN 42 mg/dL (4-19); BUN/Creat Ratio 26.8 RATIO (10-20); Calcium,Total 9.3 mg/dL (7.6-11.0); Carbon Dioxide 24.6 mmol/L (21.0-32.0); Chloride 102 mmol/L (98-108); Estimated Creatinine Clearance 42.94 ml/min (50-250); Glucose 118 mg/dL (70-99); Potassium 4.5 mmol/L (3.3-5.1)
--- NOTE | 2025-03-01 07:58 | NURSING ---
Per verbal order from Dr Saldana, Tele-Neuro consult changed to STAT from routine. Tele-Neuro notified by KELLY Woody of order change to STAT at this time.
[2025-03-01] MEDS: 0.9% Saline Lock 10 ML Syringe IV ×2 (08:01→20:06)
[2025-03-01 08:13] LABS: Allen Test Positive; Base Excess 9 mmol/L (-2 to +2); Comment 45L; FI02 60.0; PO2 68 mmHG (75-100); SITE L Radial; SO2 95 % (95-99)
--- NOTE | 2025-03-01 08:22 | EX.PCM.CONCC ---
Assessment & Plan Assessment/Plan (1) Acute hypoxic respiratory failure: (2) Altered mental status: PLAN: Plan RECOMMENDATIONS: 1. Continue heated high flow oxygen. Goal to maintain oxygen saturations at or above 90%. Avoid BiPAP for now. 2. Initiate empiric antimicrobials. 3. Obtain EEG and neurology consultation. 4. Administer IV Ativan as ordered. 5. Avoid further sedating medications. 6. The patient should remain n.p.o. for now. IMPRESSIONS: 1. Acute hypoxemic respiratory failure On presentation, the patient was noted to have bilateral ground glass opacities, concerning for possible pulmonary edema versus infectious etiology. While the patient did receive IV Lasix, her creatinine subsequently increased. In light of her questionable history of aspiration overnight, will initiate empiric antibiotics. The patient's CODE STATUS was confirmed to be DNR CCA without intubation. Given her episode of emesis overnight with PAP therapy, I would avoid BiPAP for now. The patient will be maintained on heated high flow oxygen, with a goal to maintain saturations at or above 90%. 2. Encephalopathy Unclear etiology. No significant metabolic derangements have been noted on lab workup. Arterial blood gas did not reveal a significant etiology. Given the patient's history of epilepsy, my concern would be for that of nonconvulsive status. Therefore, the patient was administered IV Ativan. Stat EEG and neurology consultation will be obtained. TSH and ammonia were within normal limits. CT head was unremarkable. If feasible, will attempt to obtain an MRI brain. 3. History of obstructive sleep apnea/asthma Continue as needed bronchodilator therapy. Will hold off on PAP support over concerns for emesis and aspiration. 4. History of schizophrenia/hypothyroidism/hypertension/heart failure with preserved ejection fraction/super morbid obesity Complicates care, management, recovery and prognosis. Continue supportive measures as noted above. The patient should remain n.p.o. for now. This note was generated with Venuetastic dictation software. It may contain incorrect words, spelling, and punctuation that were not noted in checking the note before signing. HPI Consult Data Date of Consult: 03/01/25 HPI Narrative Reason for Consultation: Altered mental status HPI Narrative: The patient is a 74-year-old female, with a history as outlined below, who presented to the emergency department on February 28 from her custodial facility with altered mental status. The patient has a known history of prior CVA, schizophrenia, obstructive sleep apnea, asthma and underlying epilepsy. She is apparently maintained on phenobarbital on an outpatient basis. History pertinent to her hospitalization was obtained primarily via chart review, as the patient is too encephalopathic to provide any additional details. On presentation to the emergency department, the patient was noted to have a temperature of 96.4 ?F. She was otherwise hemodynamically stable on room air. Laboratory evaluation revealed a normal white blood cell count. Hemoglobin was noted to be 11.1 g/dL with a platelet count of 143,000. Chemistry profile was unremarkable. Lactate was normal at 1.7. Troponin was mildly elevated at 22. BNP was normal. Procalcitonin was normal. TSH was within normal limits. Ammonia level was normal. Urine analysis was unremarkable. Toxicology screen was positive for barbiturates and benzodiazepines. Alcohol level was negative. CT head revealed no acute intracranial abnormalities. CT chest/abdomen/pelvis was only remarkable for bilateral ground glass opacities. The patient was ultimately admitted to the progressive care unit with altered mental status of unclear etiology. Overnight, an attempt was made to place the patient on BiPAP, which led to an episode of emesis and concern for aspiration. Due to her increasing nursing requirements, the patient was transferred to the medical intensive care unit. Her CODE STATUS was otherwise confirmed to be DNR CCA without intubation. This morning, the patient is nonresponsive to verbal and tactile stimulation. Repeat ABG was notable for a pH of 7.54 with a pCO2 of 37 and pO2 of 68. In light of her questionable aspiration history, the patient was initiated on antimicrobials. Given her history of seizures, and concern for possible nonconvulsive status, stat EEG and neurology consultation were obtained. The patient was also administered IV Ativan. [facility] Medical History (Updated 02/28/25 @ 16:[address] Luis Hernández MD) Wears hearing aid in both ears Hearing loss, left Hearing loss, right Chronic pain CPAP (continuous positive airway pressure) dependence DVT (deep venous thrombosis) Seizures History of ESBL E. coli infection Epilepsy Hammer toes of both feet Cerebrovascular disease Age related cataract Wears glasses Wears hearing aid Rash Walker as ambulation aid Easy bruising History of diverticulitis Gastric reflux Non-smoker Shortness of breath on exertion Vericose veins History of CVA (cerebrovascular accident) Seizure disorder Thyroid disorder Rheumatoid arthritis Diverticulitis Sleep apnea COPD (chronic obstructive pulmonary disease) Diabetes mellitus type 2 in obese Benign essential hypertension Convulsion Osteoarthritis Hypothyroid TIA (transient ischemic attack) Hypercholesterolemia Anemia in chronic illness Allergic rhinitis Glaucoma Morbid obesity Peripheral venous insufficiency GERD (gastroesophageal reflux disease) Asthma Schizophrenia Depression Anxiety disorder Hyperlipidemia Hypertension Home Medications ?Medication ?Instructions ?Recorded ?Last Taken ?Type metoprolol succinate 100 mg 100 mg PO QHS 03/28/13 12/19/20 History tablet,extended release 24 hr paliperidone 6 mg tablet,extended 6 mg PO QHS 01/31/17 03/10/24 History release 24 hr fluticasone propionate 220 2 inh inhalation BID 11/27/23 03/10/24 History mcg/actuation HFA aerosol inhaler latanoprost 0.005 % eye drops 1 drp ophthalmic (eye) QHS 11/27/23 03/10/24 History losartan 50 mg tablet 50 mg PO DAILY blood pressure 11/27/23 03/10/24 History phenobarbital 60 mg tablet 60 mg PO Q12H seizures 11/27/23 Unknown History polyethylene glycol 3350 17 17 g PO DAILY PRN CONSTIPATION 11/27/23 03/10/24 History gram/dose oral powder (Miralax) propylene glycol 1 %-glycerin 0.3 2 drp ophthalmic (eye) Q4H PRN dry 11/27/23 Unknown History % eye drops (Artificial Tears eye(s) (glycerin-peg)) acetaminophen 500 mg tablet 500 mg PO Q6H PRN pain 03/11/24 03/10/24 History cholecalciferol (vitamin D3) 25 50 mcg PO DAILY supplement 03/11/24 Unknown History mcg (1,000 unit) tablet levothyroxine 200 mcg tablet 200 mcg PO QHS 03/11/24 03/10/24 History escitalopram oxalate 10 mg tablet 10 mg PO DAILY #0 tabs 03/16/24 Unknown Rx albuterol sulfate 90 mcg/actuation 2 puff inhalation Q4H PRN 08/13/24 Unknown History aerosol inhaler shortness of breath or wheezing pantoprazole 40 mg tablet,delayed 40 mg PO BID 08/13/24 Unknown History release (Protonix) quetiapine 100 mg tablet 50 mg PO QHS 08/13/24 Unknown History triamcinolone acetonide 0.1 % 1 applic topical Q8 PRN itching 08/13/24 Unknown History topical cream furosemide 40 mg tablet (Lasix) 40 mg PO DAILY #90 tabs 08/17/24 Unknown Rx hydrochlorothiazide 25 mg tablet 25 mg PO QDAY 12/16/24 Unknown History CPAP - Continuous Positive Airway 02/28/25 Unknown History Pressure([facility] INFORMATIONAL USE ONLY) albuterol sulfate 90 mcg/actuation 2 inh inhalation Q4H PRN wheezing 02/28/25 Unknown History aerosol inhaler bisacodyl 10 mg rectal suppository 10 mg HI DAILY PRN constipation 02/28/25 Unknown History quetiapine 50 mg tablet 50 mg PO QHS schizo 02/28/25 Unknown History Allergy/AdvReac Type Severity Reaction Status Date / Time amoxicillin Allergy NEEDS Verified 02/28/25 10:33 FOLLOW-UP codeine Allergy Shortness Verified 02/28/25 10:33 of breath cyclobenzaprine (From Allergy NEEDS Verified 02/28/25 10:33 Flexeril) FOLLOW-UP dextromethorphan HBr (From Allergy Shortness Verified 02/28/25 10:33 Tylenol Cold Multi-Symptom) of breath diazepam (From Valium) Allergy Shortness Verified 02/28/25 10:33 of breath fluticasone (From Advair Allergy NEEDS Verified 02/28/25 10:33 Diskus) FOLLOW-UP Food Allergies: Uncoded Allergy Shortness Verified 02/28/25 10:33 of breath guaifenesin (From Tylenol Allergy Shortness Verified 02/28/25 10:33 Cold Multi-Symptom) of breath hydrocodone bitartrate (From Allergy Shortness Verified 02/28/25 10:33 Vicodin) of breath iodine Allergy Anaphylaxis Verified 02/28/25 10:33 Latex, Natural Rubber Allergy Shortness Verified 02/28/25 10:33 of breath morphine Allergy Shortness Verified 02/28/25 10:33 of breath NSAIDS (Non-Steroidal Allergy Shortness Verified 02/28/25 10:33 Anti-Inflamma of breath oxaprozin (From Daypro) Allergy NEEDS Verified 02/28/25 10:33 FOLLOW-UP oxycodone Allergy NEEDS Verified 02/28/25 10:33 FOLLOW-UP phenylephrine HCl (From Allergy Shortness Verified 02/28/25 10:33 Tylenol Cold Multi-Symptom) of breath phenytoin (From Dilantin) Allergy NEEDS Verified 02/28/25 10:33 FOLLOW-UP phenytoin sodium (From Allergy Shortness Verified 02/28/25 10:33 Dilantin) of breath phenytoin sodium extended Allergy Shortness Verified 02/28/25 10:33 (From Dilantin) of breath povidone-iodine (From Allergy BLISTERS Verified 02/28/25 10:33 Betadine) pseudoephedrine HCl (From Allergy Shortness Verified 02/28/25 10:33 Tylenol Cold Multi-Symptom) of breath salmeterol (From Advair Allergy NEEDS Verified 02/28/25 10:33 Diskus) FOLLOW-UP shellfish derived Allergy NEEDS Verified 02/28/25 10:33 FOLLOW-UP soap (From Betadine) Allergy BLISTERS Verified 02/28/25 10:33 tetracycline Allergy NEEDS Verified 02/28/25 10:33 FOLLOW-UP tositumomab iodine-131 Allergy NEEDS Verified 02/28/25 10:33 FOLLOW-UP muscle relaxers Allergy Shortness Uncoded 12/16/24 13:26 of breath Family History Mother CVA (cerebral vascular accident) Cancer Depression Diabetes Emphysema lung Hypertension Arthritis Father CVA (cerebral vascular accident) Cancer Depression Diabetes Emphysema lung Hypertension Arthritis Surgical History History of cholecystectomy History of tonsillectomy History of total hysterectomy History of total knee replacement History of bilateral tympanoplasty History of tubal ligation History of D&C Social History household members: none housing: assisted Smoking Status: Never smoker second hand exposure: Yes alcohol intake: never substance use type: does not use what type of physical activity do you participate in: walking do you feel safe at home: Yes ROS Review of Systems ROS Unobtainable: due to mental status Physical Exam Const Constitutional Narrative: The patient is currently nonresponsive to verbal and tactile stimulation. HEENT normocephalic and head/scalp atraumatic Eyes conjunctivae normal and no scleral icterus Neck supple General: trachea midline Chest inspection of chest normal Resp Effort and Inspection: tachypneic Auscultation: rhonchi Cardio regular rate and regular rhythm GI normal to inspection, nondistended, normoactive bowel sounds Extremity no clubbing, cyanosis or edema Skin no rashes or lesions noted Neuro Neuro Narrative: As noted above, the patient is currently nonresponsive. Lab / Micro Data 03/01/25 05:46 03/01/25 05:46 Labs: Laboratory Results - last 24 hr 02/28/25 09:57: WBC 5.5, RBC 3.38 L, Hgb 11.1 L, Hct 33.1 L, MCV 97.9, MCH 32.8 H, MCHC 33.5, RDW Std Deviation 56.2 H, RDW Coeff of Piedad 15.6 H, Plt Count 143 L, MPV 10.6, Immature Gran % (Auto) 0.400, Neut % (Auto) 75.2 H, Lymph % (Auto) 17.9 L, [place] % (Auto) 5.4, Eos % (Auto) 0.9, Baso % (Auto) 0.2, Absolute Neuts (auto) 4.2, Absolute Lymphs (auto) 0.99, Nucleated RBC % 0, Sodium 139, Potassium 4.4, Chloride 98, Carbon Dioxide 27.6, Anion Gap 13, BUN 30 H, Creatinine 0.97, Estim Creat Clear Calc 69.63, Est GFR (MDRD) Non-Af 61, BUN/Creatinine Ratio 31.3 H, Glucose 172 H, Calcium 9.7, Total Bilirubin 0.19, AST 29, ALT 35, Alkaline Phosphatase 127 H, Troponin T High Sens 22 H D, NT pro BNP II 75, Total Protein 7.4, Albumin 4.1, Globulin 3.3, Albumin/Globulin Ratio 1.2, TSH 2.440, Free T4 1.30, Free T3 pg/dL 2.0 L 02/28/25 10:45: Lactic Acid 1.7, Urine Color Yellow, Urine Clarity Clear, Urine pH 7.0, Ur Specific [place] 1.010, Urine Protein 15 H, Urine Glucose (UA) Normal, Urine Ketones Negative, Urine Occult Blood Negative, Urine Nitrite Negative, Urine Bilirubin Negative, Urine Urobilinogen Normal, Ur Leukocyte Esterase Negative, Urine RBC 0-5 SEEN, Urine WBC 0-5 SEEN, Ur Squamous Epith Cells 0 SEEN, Urine Bacteria 0 SEEN, Urine Mucus 0 SEEN, Urine Opiates Screen NEGATIVE, U Buprenorphine Qual NEGATIVE, Ur Oxycodone Screen NEGATIVE, Urine Methadone Screen NEGATIVE, Urine Fentanyl Screen NEGATIVE, Ur Barbiturates Screen PRESUMPTIVE POSITIVE, Ur Phencyclidine Scrn NEGATIVE, Ur Amphetamines Screen NEGATIVE, U Benzodiazepines Scrn PRESUMPTIVE POSITIVE, Urine Cocaine Screen NEGATIVE, U Cannabinoids Screen NEGATIVE 02/28/25 10:46: Ethyl Alcohol < 10.1 02/28/25 12:40: Troponin T Hi Sens 2 Hr 22 H 02/28/25 14:57: Troponin T Hi Sens 4Hr 22 H 02/28/25 19:45: Ammonia 13.2, Procalcitonin 0.07 03/01/25 05:46: WBC 14.1 H, RBC 3.05 L, Hgb 9.9 L, Hct 29.4 L, MCV 96.4, MCH 32.5 H, MCHC 33.7, RDW Std Deviation 55.5 H, RDW Coeff of Piedad 15.7 H, Plt Count 132 L, MPV 11.0, Immature Gran % (Auto) 0.600, Neut % (Auto) 86.5 H, Lymph % (Auto) 7.0 L, [place] % (Auto) 5.7, Eos % (Auto) 0.1, Baso % (Auto) 0.1, Absolute Neuts (auto) 12.2 H, Absolute Lymphs (auto) 0.99, Nucleated RBC % 0, Sodium 140, Potassium 4.5, Chloride 102, Carbon Dioxide 24.6, Anion Gap 14, BUN 42 H, Creatinine 1.56 H, Estim Creat Clear Calc 42.94 L, Est GFR (MDRD) Non-Af 34 L, BUN/Creatinine Ratio 26.8 H, Glucose 118 H, Calcium 9.3 Micro: Microbiology 02/28/25 15:00 Mucosa - Nasopharyngeal Respiratory Panel (PCR) - Final 02/28/25 10:57 Mucosa - Nose SARS-CoV-2, Influenza & RSV (PCR) - Final ABG Data ABG results: ABG 02/28/25 02/28/25 03/01/25 11:04 15:32 08:09 Specimen Type SILVER ART ART Sample Site Not entered L Radial L Radial pH 7.46 H 7.54 H Bicarbonate Actual 36.6 H 31.9 H Total CO2 38 33 Base Excess 13 H 9 H O2 Saturation 93 L 95 O2 % 8.0 60.0 ABG pCO2 51.0 H 37.5 ABG pO2 65 L 68 L W[place]o Test Positive Positive VBG pH 7.40 VBG pO2 78 H VBG HCO3 25 VBG Total CO2 26 VBG O2 Sat (Calc) 95 H VBG Base Excess 0 POC Mix VBG pCO2 Pt Tmp 40.5 L O2 Delivery Device Not entered Cannula airvo Vent Mode Not entered Not entered Clinical Comments 45L Imaging Radiology Impression Brain CT 02/28/25 10:36 IMPRESSION: No acute intracranial abnormalities. Reading Location: [facility] Chest/Abdomen/Pelvis CT 02/28/25 10:36 IMPRESSION: Diffuse ground-glass densities may represent CHF or pneumonia. Perinephric fat stranding. No hydronephrosis or nephrolithiasis. Correlation with urinalysis is recommended. Reading Location: [facility] Chest X-Ray 03/01/25 05:20 IMPRESSION: There is cardiomegaly with mild central vascular congestion. There is elevation of the right hemidiaphragm, which can indicate paralysis, similar to the prior. Reading Location: [facility] Charges/Coding Visit Charges Inpatient E&M: 15166 Init Hosp L3
[2025-03-01] MEDS: 0.9% Normal Saline (250mL Bag) 250 ML 15 ML IV (08:50)
[2025-03-01] MEDS: Meropenem 1 GM in 0.9% Normal Saline (100mL MB+) 100 ML IV ×2 (08:50→21:46)
[2025-03-01 08:52] LABS: Ammonia 27.5 umol/L (11-51)
--- NOTE | 2025-03-01 09:54 | CASEMGMT ---
Per chart review and ICU rounds, pt is from [facility]. RN CM to the pt room at this time to discuss DC planning. Pt's sister, Boo, at the bedside. Pt is currently disoriented. Boo reports that she is the pt's POA, along with the pt's other sister, Colleen. This RN CM discussed DC planning with Boo who states that the pt enjoys the [facility] and that she prefers the pt to return to [facility] once medically ready. Boo denies further questions, concerns, or needs at this time. [facility] DPA notified.
--- NOTE | 2025-03-01 10:06 | PCM.PN.HOSP ---
Subjective Subjective Much the same as yesterday though transferred overnight to the ICU after aspiration event. She does have a slight leukocytosis today and was started on antibiotics by the advertising sales associate Objective Data Objective Data Vital Signs: Vital Signs Temp Pulse Resp BP Pulse Ox O2 Del Method O2 Flow Rate 98.0 F 92 19 H 84/53 L 92 Airvo 70 03/01/25 06:00 03/01/25 08:00 03/01/25 08:00 03/01/25 08:00 03/01/25 08:00 03/01/25 08:00 03/01/25 06:00 FiO2 70 03/01/25 08:00 Oxygen Flow Rate (L/min) 70 Oxygen Delivery Method Airvo Weight: 315 lb 7.704 oz Body Mass Index (BMI) 57.6 Intake & Output: Intake and Output for Last 24 Hours 02/28/25 03/01/25 03/02/25 03:59 03:59 03:59 Intake Total 300 / 300 Output Total 1695 / 1845 200 / 200 Balance -1395 / -1545 -200 / -200 Lab / Micro Data 03/01/25 05:46 03/01/25 05:46 Labs: Laboratory Results - last 24 hr 02/28/25 09:57: WBC 5.5, RBC 3.38 L, Hgb 11.1 L, Hct 33.1 L, MCV 97.9, MCH 32.8 H, MCHC 33.5, RDW Std Deviation 56.2 H, RDW Coeff of Piedad 15.6 H, Plt Count 143 L, MPV 10.6, Immature Gran % (Auto) 0.400, Neut % (Auto) 75.2 H, Lymph % (Auto) 17.9 L, [place] % (Auto) 5.4, Eos % (Auto) 0.9, Baso % (Auto) 0.2, Absolute Neuts (auto) 4.2, Absolute Lymphs (auto) 0.99, Nucleated RBC % 0, Sodium 139, Potassium 4.4, Chloride 98, Carbon Dioxide 27.6, Anion Gap 13, BUN 30 H, Creatinine 0.97, Estim Creat Clear Calc 69.63, Est GFR (MDRD) Non-Af 61, BUN/Creatinine Ratio 31.3 H, Glucose 172 H, Calcium 9.7, Total Bilirubin 0.19, AST 29, ALT 35, Alkaline Phosphatase 127 H, Troponin T High Sens 22 H D, NT pro BNP II 75, Total Protein 7.4, Albumin 4.1, Globulin 3.3, Albumin/Globulin Ratio 1.2, TSH 2.440, Free T4 1.30, Free T3 pg/dL 2.0 L 02/28/25 10:45: Lactic Acid 1.7, Urine Color Yellow, Urine Clarity Clear, Urine pH 7.0, Ur Specific [place] 1.010, Urine Protein 15 H, Urine Glucose (UA) Normal, Urine Ketones Negative, Urine Occult Blood Negative, Urine Nitrite Negative, Urine Bilirubin Negative, Urine Urobilinogen Normal, Ur Leukocyte Esterase Negative, Urine RBC 0-5 SEEN, Urine WBC 0-5 SEEN, Ur Squamous Epith Cells 0 SEEN, Urine Bacteria 0 SEEN, Urine Mucus 0 SEEN, Urine Opiates Screen NEGATIVE, U Buprenorphine Qual NEGATIVE, Ur Oxycodone Screen NEGATIVE, Urine Methadone Screen NEGATIVE, Urine Fentanyl Screen NEGATIVE, Ur Barbiturates Screen PRESUMPTIVE POSITIVE, Ur Phencyclidine Scrn NEGATIVE, Ur Amphetamines Screen NEGATIVE, U Benzodiazepines Scrn PRESUMPTIVE POSITIVE, Urine Cocaine Screen NEGATIVE, U Cannabinoids Screen NEGATIVE 02/28/25 10:46: Ethyl Alcohol < 10.1 02/28/25 12:40: Troponin T Hi Sens 2 Hr 22 H 02/28/25 14:57: Troponin T Hi Sens 4Hr 22 H 02/28/25 19:45: Ammonia 13.2, Procalcitonin 0.07 03/01/25 05:46: WBC 14.1 H, RBC 3.05 L, Hgb 9.9 L, Hct 29.4 L, MCV 96.4, MCH 32.5 H, MCHC 33.7, RDW Std Deviation 55.5 H, RDW Coeff of Piedad 15.7 H, Plt Count 132 L, MPV 11.0, Immature Gran % (Auto) 0.600, Neut % (Auto) 86.5 H, Lymph % (Auto) 7.0 L, [place] % (Auto) 5.7, Eos % (Auto) 0.1, Baso % (Auto) 0.1, Absolute Neuts (auto) 12.2 H, Absolute Lymphs (auto) 0.99, Nucleated RBC % 0, Sodium 140, Potassium 4.5, Chloride 102, Carbon Dioxide 24.6, Anion Gap 14, BUN 42 H, Creatinine 1.56 H, Estim Creat Clear Calc 42.94 L, Est GFR (MDRD) Non-Af 34 L, BUN/Creatinine Ratio 26.8 H, Glucose 118 H, Calcium 9.3 03/01/25 08:15: Ammonia 27.5 Micro: Microbiology 02/28/25 15:00 Mucosa - Nasopharyngeal Respiratory Panel (PCR) - Final 02/28/25 10:57 Mucosa - Nose SARS-CoV-2, Influenza & RSV (PCR) - Final ABG Data ABG results: ABG 02/28/25 02/28/25 03/01/25 11:04 15:32 08:09 Specimen Type SILVER ART ART Sample Site Not entered L Radial L Radial pH 7.46 H 7.54 H Bicarbonate Actual 36.6 H 31.9 H Total CO2 38 33 Base Excess 13 H 9 H O2 Saturation 93 L 95 O2 % 8.0 60.0 ABG pCO2 51.0 H 37.5 ABG pO2 65 L 68 L W[place]o Test Positive Positive VBG pH 7.40 VBG pO2 78 H VBG HCO3 25 VBG Total CO2 26 VBG O2 Sat (Calc) 95 H VBG Base Excess 0 POC Mix VBG pCO2 Pt Tmp 40.5 L O2 Delivery Device Not entered Cannula airvo Vent Mode Not entered Not entered Clinical Comments 45L Radiography Diagnostic Testing: Radiology Impression Brain CT 02/28/25 10:36 IMPRESSION: No acute intracranial abnormalities. Reading Location: [facility] Chest/Abdomen/Pelvis CT 02/28/25 10:36 IMPRESSION: Diffuse ground-glass densities may represent CHF or pneumonia. Perinephric fat stranding. No hydronephrosis or nephrolithiasis. Correlation with urinalysis is recommended. Reading Location: [facility] Chest X-Ray 03/01/25 05:20 IMPRESSION: There is cardiomegaly with mild central vascular congestion. There is elevation of the right hemidiaphragm, which can indicate paralysis, similar to the prior. Reading Location[facility] Physical Exam Narrative General: Alert, Oriented x0, Cooperative, No apparent distress, morbidly obese HEENT: Atraumatic, PERRLA, EOMI, Normocephalic Oral: Moist Mucosa Neck: Supple, No JVD Lungs: Diminished, Normal air movement, rhonchi, No wheeze, No rales Cardiovascular: Regular rate, Regular Rhythm, Normal S1, Normal S2, No murmurs Abdomen: Soft, Non Tender, Non-Distended, No Hepato-splenomegaly Extremities: No edema, Capillary Refill Less than 3 Seconds Skin: No rashes, No breakdown Musculoskeletal: No Tenderness to Palpation of Joints or Extremities Neurological: No focal neurological deficits, moves all extremities but does not really comply with exam Psych/Mental Status: Flat Assessment & Plan Assessment/Plan (1) Altered mental status: PLAN: Plan 1. Acute metabolic encephalopathy with acute hypoxic respiratory insufficiency/seizure disorder/possible aspiration event ? Unclear as to the etiology at the moment as she does not have obvious signs of bacterial infection ? There is some concern for volume overload though proBNP is decidedly normal even in the face of her morbid obesity ? She is on Airvo ? Will check respiratory panel ? She does have a seizure disorder so we will obtain an EEG and a phenobarbital level as well, there was not concern by the advertising sales associate of having a nonconvulsive seizure therefore she was given a dose of Ativan, neurology is pending for evaluation ? Will trial her on meropenem given the rise in her white count 2. Essential HTN/chronic diastolic CHF/AC ? Echocardiogram from 08/14/2024 with an EF of 60% stage I diastolic dysfunction with an RVSP of 50 mmHg ? proBNP is normal and she has no lower extremity edema, it is difficult to hear posterior breath sounds given body habitus and altered mental status ? Will trial her on IV dose of Lasix but I do not believe that she has CHF exacerbation at this time ? Can resume her home blood pressure medications ? Will monitor and make adjustments as necessary ? Will hold off of all Lasix as she does not have a heart failure exacerbation and now her creatinine has risen to 1.56 consistent with an AC based on her baseline creatinine of 0.9 3. Hypothyroidism ? Stable ? Continue with Synthroid 4. Schizophrenia ? Stable ? Resume her home medications 5. Glaucoma ? Stable ? Continue with her home eyedrops DVT: Lovenox Charges/Coding Visit Charges Inpatient E&M: 25889 Subs Hosp L2
--- NOTE | 2025-03-01 11:55 | CASEMGMT ---
Addendum entered by Christina Pastrana 03/01/25 12:09: If precert is needed, pt can return while it is pending. Christina Pastrana DC Planning Original Note: Discharge Planning Updates sent to [facility]. Asked if precert is needed and if pt can return while precert is pending. Awaiting response. Christina Pastrana DC Planning Asst.
--- NOTE | 2025-03-01 11:59 | CASEMGMT ---
Tertiary Insurance review for hospitals In-network with [facility] insurance if transfer is recommended is as follows: [facility], [facility], [place], [facility], [facility], , [place], [facility]. Christina Pastrana, Discharge Planning Asst.
--- NOTE | 2025-03-01 12:10 | CON.PCM.NE_ITS ---
Assessment and Plan: Neuro Assessment/Plan SIERRA MORRISON is a 74 F with a past medical history of Stroke, schizophrenia, MARY, seizure on Phenobarbital, who is presenting form assisted with encephalopathy. Her toxic metabolic workup has been negatie for the most part. On exam she has eyes opened and tracking but not communicating and not moving extremities. She has history of seizures reportedly described as staring spells, for which she is on Phenobarb. Her spot EEG now is negative for seizures or epileptic activity Unsure of etiology at this time. She has had prior similar presentations in the past from which she improves spontaneously, which raises concern for non-organic nature of these presentations. However she has reported history of seizures, and non convulsive status is on the differential. Her spot EEG here is negative which argues against that, but again she could be doing in and out of seizures. I discussed transfer to [facility] for LTM-EEG with sisters at bedside, and they wanted to wait and monitor and see how she does prior to initiating transfer, which I don't think is unreasonable given her history of prior similar presentation with spontaneous resolution. Would recommend continued medical workup. MRI brain to rule out stroke Will conintue to follow I personally attended this patient and spent a total time of minutes evaluating this patient including clinical assessment, review of chart, medical history imaging, and determining appropriate treatment and workup. HPI Consult Data Date of Consult: 03/01/25 HPI Narrative HPI Narrative: The patient is a 74-year-old female, with a history as outlined below, who presented to the emergency department on February 28 from her residential facility with altered mental status. The patient has a known history of prior CVA, schizophrenia, obstructive sleep apnea, asthma and underlying epilepsy. She is apparently maintained on phenobarbital on an outpatient basis. History pertinent to her hospitalization was obtained primarily via chart review and from sisters at bedside, as the patient is too encephalopathic to provide any additional details. Per sisters at bedside, they report she had a seizure on Saturday, she recovered from that. Then on Saturday, sister went to see her and she was unresponsive. Her seizures are usually staring off, so she was brought to the ER. She has been unresponsive eyes open, tracking, not following commands. At baseline, she communicated, she feeds herself. She is at a assisted because she can not physically takes care of herself, she needs help with activity of daily living bathing, dressing, get up with the walker etc. On presentation to the emergency department, the patient was noted to have a temperature of 96.4 ?F. She was otherwise hemodynamically stable on room air. WBC normal Lactate was normal at 1.7. TSH was within normal limits. Ammonia level was normal. Urine analysis was unremarkable. Toxicology screen was positive for barbiturates and benzodiazepines. Alcohol level was negative. CT head revealed no acute intracranial abnormalities. CT chest/abdomen/pelvis was only remarkable for bilateral ground glass opacities which was concerning for PNA Vs fluid overload. The patient was ultimately admitted to the progressive care unit with altered mental status of unclear etiology. Attempt was made to place the patient on BiPAP, which led to an episode of emesis and concern for aspiration. Due to her increasing nursing requirements, the patient was transferred to the medical intensive care unit. Exam is limited due to altered mental status. On exam today, eyes open tracking, she is non-verbal, not following commands, no response to nox stim [facility] Medical History (Updated 02/28/25 @ 16:[address] Luis Hernández MD) Wears hearing aid in both ears Hearing loss, left Hearing loss, right Chronic pain CPAP (continuous positive airway pressure) dependence DVT (deep venous thrombosis) Seizures History of ESBL E. coli infection Epilepsy Hammer toes of both feet Cerebrovascular disease Age related cataract Wears glasses Wears hearing aid Rash Walker as ambulation aid Easy bruising History of diverticulitis Gastric reflux Non-smoker Shortness of breath on exertion Vericose veins History of CVA (cerebrovascular accident) Seizure disorder Thyroid disorder Rheumatoid arthritis Diverticulitis Sleep apnea COPD (chronic obstructive pulmonary disease) Diabetes mellitus type 2 in obese Benign essential hypertension Convulsion Osteoarthritis Hypothyroid TIA (transient ischemic attack) Hypercholesterolemia Anemia in chronic illness Allergic rhinitis Glaucoma Morbid obesity Peripheral venous insufficiency GERD (gastroesophageal reflux disease) Asthma Schizophrenia Depression Anxiety disorder Hyperlipidemia Hypertension Home Medications ?Medication ?Instructions ?Recorded ?Last Taken ?Type metoprolol succinate 100 mg 100 mg PO QHS 03/28/1305/30 History tablet,extended release 24 hr paliperidone 6 mg tablet,extended 6 mg PO QHS 01/31/17 03/10/24 History release 24 hr fluticasone propionate 220 2 inh inhalation BID 03/10/24 History mcg/actuation HFA aerosol inhaler latanoprost 0.005 % eye drops 1 drp ophthalmic (eye) Q HS 11/27/23 03/10/24 History losartan 50 mg tablet 50 mg PO DAILY blood pressur e 11/27/23 03/10/24 History phenobarbital 60 mg tablet 60 mg PO Q12H seizures 11/08 03/03 Unknown History polyethylene glycol 3350 17 17 g PO DAILY PRN CONSTIPA TION 11/27/23 03/10/24 History gram/dose oral powder (Miralax) propylene glycol 1 %-glycerin 0.3 2 drp ophthalmic (ey e) Q4H PRN dry 11/27/23 Unknown History % eye drops (Artificial Tears eye(s) (glycerin-peg)) acetaminophen 500 mg tablet 500 mg PO Q6H PRN pain 08/0303/10/24 History cholecalciferol (vitamin D3) 25 50 mcg PO DAILY supple ment 03/11/24 Unknown History mcg (1,000 unit) tablet levothyroxine 200 mcg tablet 200 mcg PO QHS 03/11/24 1 History escitalopram oxalate 10 mg tablet 10 mg PO DAILY #0 ta bs 03/16/24 Unknown Rx albuterol sulfate 90 mcg/actuation 2 puff inhalation Q 4H PRN 08/13/24 Unknown History aerosol inhaler shortness of breath or wheez ing pantoprazole 40 mg tablet,delayed 40 mg PO BID 5 Unknown History release (Protonix) quetiapine 100 mg tablet 50 mg PO QHS 08/13/24 Unknow n History triamcinolone acetonide 0.1 % 1 applic topical Q8 PRN itching 08/13/24 Unknown History topical cream furosemide 40 mg tablet (Lasix) 40 mg PO DAILY #90 tab s 08/17/24 Unknown Rx hydrochlorothiazide 25 mg tablet 25 mg PO QDAY 5 Unknown History CPAP - Continuous Positive Airway 02/28/25 Unknown Hi story Pressure([facility] INFORMATIONAL USE ONLY) albuterol sulfate 90 mcg/actuation 2 inh inhalation Q4 H PRN wheezing 02/28/25 Unknown History aerosol inhaler bisacodyl 10 mg rectal suppository 10 mg WI DAILY PRN constipation 02/28/25 Unknown History quetiapine 50 mg tablet 50 mg PO QHS schizo 02/28/25 Unknown History Allergy/AdvReac Type Severity Reaction Status Date / Time amoxicillin Allergy NEEDS Verified 02/28/25 10:33 FOLLOW-UP codeine Allergy Shortness Verified 02/28/25 10:33 of breath cyclobenzaprine (From Allergy NEEDS Verified 02/28/25 10:33 Flexeril) FOLLOW-UP dextromethorphan HBr (From Allergy Shortness Verified 02/28/25 10:33 Tylenol Cold Multi-Symptom) of breath diazepam (From Valium) Allergy Shortness Verified 02/28/25 10:33 of breath fluticasone (From Advair Allergy NEEDS Verified 02/28/25 10:33 Diskus) FOLLOW-UP Food Allergies: Uncoded Allergy Shortness Verified 02/28/25 10:33 of breath guaifenesin (From Tylenol Allergy Shortness Verified 02/28/25 10:33 Cold Multi-Symptom) of breath hydrocodone bitartrate (From Allergy Shortness Verified 02/28/25 10:33 Vicodin) of breath iodine Allergy Anaphylaxis Verified 02/28/25 10:33 Latex, Natural Rubber Allergy Shortness Verified 02/28/25 10:33 of breath morphine Allergy Shortness Verified 02/28/25 10:33 of breath NSAIDS (Non-Steroidal Allergy Shortness Verified 02/28/25 10:33 Anti-Inflamma of breath oxaprozin (From Daypro) Allergy NEEDS Verified 02/28/25 10:33 FOLLOW-UP oxycodone Allergy NEEDS Verified 02/28/25 10:33 FOLLOW-UP phenylephrine HCl (From Allergy Shortness Verified 02/28/25 10:33 Tylenol Cold Multi-Symptom) of breath phenytoin (From Dilantin) Allergy NEEDS Verified 02/28/25 10:33 FOLLOW-UP phenytoin sodium (From Allergy Shortness Verified 02/28/25 10:33 Dilantin) of breath phenytoin sodium extended Allergy Shortness Verified 02/28/25 10:33 (From Dilantin) of breath povidone-iodine (From Allergy BLISTERS Verified 02/28/25 10:33 Betadine) pseudoephedrine HCl (From Allergy Shortness Verified 02/28/25 10:33 Tylenol Cold Multi-Symptom) of breath salmeterol (From Advair Allergy NEEDS Verified 02/28/25 10:33 Diskus) FOLLOW-UP shellfish derived Allergy NEEDS Verified 02/28/25 10:33 FOLLOW-UP soap (From Betadine) Allergy BLISTERS Verified 02/28/25 10:33 tetracycline Allergy NEEDS Verified 02/28/25 10:33 FOLLOW-UP tositumomab iodine-131 Allergy NEEDS Verified 02/28/25 10:33 FOLLOW-UP muscle relaxers Allergy Shortness Uncoded 12/16/24 13:26 of breath Family History Mother CVA (cerebral vascular accident) Cancer Depression Diabetes Emphysema lung Hypertension Arthritis Father CVA (cerebral vascular accident) Cancer Depression Diabetes Emphysema lung Hypertension Arthritis Surgical History History of cholecystectomy History of tonsillectomy History of total hysterectomy History of total knee replacement History of bilateral tympanoplasty History of tubal ligation History of D&C Social History household members: none housing: assisted Smoking Status: Never smoker second hand exposure: Yes alcohol intake: never substance use type: does not use what type of physical activity do you participate in: walking do you feel safe at home: Yes Vital Signs Vital Signs Vital Signs: 02/28/25 13:03 02/28/25 13:18 02/28/25 14:00 Temperature 95.8 F L 96 F L 96.4 F L Temperature Source Core Core Pulse Rate 86 83 81 Pulse Strength Respiratory Rate 13 17 19 H Respiratory Effort Respiratory Depth Respiratory Pattern Blood Pressure 111/60 100/56 L 99/55 L Blood Pressure Mean 77 70 69 Blood Pressure Source Blood Pressure Position Blood Pressure Location Pulse Ox 92 93 91 Oxygen Delivery Method Room Air Oxygen Flow Rate (L/min) Fraction of Inspired Oxygen (FIO2) 02/28/25 14:00 02/28/25 14:34 02/28/25 14:38 Temperature 96.8 F L 97.5 F L Temperature Source Core Oral Pulse Rate 79 88 Pulse Strength Respiratory Rate 20 H 18 Respiratory Effort Normal Respiratory Depth Normal Respiratory Pattern Normal Blood Pressure 99/55 L 120/60 Blood Pressure Mean 67 80 Blood Pressure Source Monitor Blood Pressure Position Semi-Fowlers Blood Pressure Location Right Forearm Pulse Ox 90 92 92 Oxygen Delivery Method High Flow High Flow Oxygen Flow Rate (L/min) 8 8 Fraction of Inspired Oxygen (FIO2) 02/28/25 15:00 02/28/25 15:45 02/28/25 15:45 Temperature Temperature Source Pulse Rate 81 Pulse Strength Respiratory Rate 16 Respiratory Effort Respiratory Depth Respiratory Pattern Blood Pressure Blood Pressure Mean Blood Pressure Source Blood Pressure Position Blood Pressure Location Pulse Ox 86 92 93 Oxygen Delivery Method High Flow Bi-pap Oxygen Flow Rate (L/min) 8 Fraction of Inspired Oxygen (FIO2) 45 45 02/28/25 16:33 02/28/25 17:48 02/28/25 20:00 Temperature Temperature Source Pulse Rate 78 86 Pulse Strength Respiratory Rate 22 H 26 H Respiratory Effort Respiratory Depth Respiratory Pattern Blood Pressure Blood Pressure Mean Blood Pressure Source Blood Pressure Position Blood Pressure Location Pulse Ox 93 98 Oxygen Delivery Method Oxygen Flow Rate (L/min) Fraction of Inspired Oxygen (FIO2) 45 55 55 02/28/25 20:36 02/28/25 20:36 02/28/25 21:40 Temperature 97 F L 96.8 F L Temperature Source Temporal Temporal Pulse Rate 88 92 Pulse Strength Respiratory Rate 26 H 25 H Respiratory Effort Labored Respiratory Depth Shallow Respiratory Pattern Tachypnea Blood Pressure 106/60 105/72 Blood Pressure Mean 75 83 Blood Pressure Source Monitor Monitor Blood Pressure Position Semi-Fowlers Semi-Fowlers Blood Pressure Location Right Forearm Right Forearm Pulse Ox 97 96 Oxygen Delivery Method Bi-pap Bi-pap Bi-pap Oxygen Flow Rate (L/min) Fraction of Inspired Oxygen (FIO2) 55 55 55 02/28/25 22:00 02/28/25 22:22 02/28/25 22:29 Temperature 97.6 F L Temperature Source Temporal Pulse Rate 87 88 Pulse Strength Weak (1+) Respiratory Rate 20 H 21 H Respiratory Effort Respiratory Depth Respiratory Pattern Blood Pressure 125/68 H 125/68 H Blood Pressure Mean 87 87 Blood Pressure Source Monitor Monitor Blood Pressure Position Blood Pressure Location Pulse Ox 100 100 Oxygen Delivery Method Bi-pap Bi-pap Oxygen Flow Rate (L/min) Fraction of Inspired Oxygen (FIO2) 80 02/28/25 22:42 02/28/25 23:00 03/01/25 00:00 Temperature 97.8 F Temperature Source Temporal Pulse Rate 89 83 83 Pulse Strength Respiratory Rate 21 H 20 H 19 H Respiratory Effort Respiratory Depth Respiratory Pattern Blood Pressure 97/58 L 108/60 Blood Pressure Mean 71 76 Blood Pressure Source Monitor Monitor Blood Pressure Position Blood Pressure Location Pulse Ox 95 95 96 Oxygen Delivery Method Airvo Airvo Oxygen Flow Rate (L/min) Fraction of Inspired Oxygen (FIO2) 45 03/01/25 00:00 03/01/25 01:00 03/01/25 01:37 Temperature Temperature Source Pulse Rate 88 90 Pulse Strength Respiratory Rate 19 H 20 H Respiratory Effort Labored Respiratory Depth Shallow Respiratory Pattern Tachypnea Blood Pressure 121/75 H Blood Pressure Mean 90 Blood Pressure Source Blood Pressure Position Blood Pressure Location Pulse Ox 96 95 Oxygen Delivery Method Bi-pap Airvo Oxygen Flow Rate (L/min) Fraction of Inspired Oxygen (FIO2) 55 41 40 03/01/25 02:00 03/01/25 03:00 03/01/25 04:00 Temperature Temperature Source Pulse Rate 85 86 Pulse Strength Respiratory Rate 19 H 18 Respiratory Effort Labored Respiratory Depth Shallow Respiratory Pattern Tachypnea Blood Pressure 101/62 113/62 Blood Pressure Mean 75 79 Blood Pressure Source Monitor Monitor Blood Pressure Position Blood Pressure Location Pulse Ox 94 90 Oxygen Delivery Method Airvo Airvo Airvo Oxygen Flow Rate (L/min) Fraction of Inspired Oxygen (FIO2) 41 41 41 03/01/25 04:00 03/01/25 04:00 03/01/25 05:00 Temperature 98.4 F Temperature Source Temporal Pulse Rate 96 95 88 Pulse Strength Respiratory Rate 20 H 19 H Respiratory Effort Respiratory Depth Respiratory Pattern Blood Pressure 122/64 H 91/55 L Blood Pressure Mean 83 67 Blood Pressure Source Monitor Monitor Blood Pressure Position Blood Pressure Location Pulse Ox 90 91 Oxygen Delivery Method Airvo Airvo Oxygen Flow Rate (L/min) Fraction of Inspired Oxygen (FIO2) 41 70 03/01/25 05:43 03/01/25 06:00 03/01/25 06:48 Temperature 98.0 F Temperature Source Temporal Pulse Rate 88 90 91 Pulse Strength Respiratory Rate 18 16 20 H Respiratory Effort Respiratory Depth Respiratory Pattern Tachypnea Blood Pressure 107/71 Blood Pressure Mean 83 Blood Pressure Source Monitor Blood Pressure Position Blood Pressure Location Pulse Ox 92 91 92 Oxygen Delivery Method Airvo Oxygen Flow Rate (L/min) 70 Fraction of Inspired Oxygen (FIO2) 61 62 03/01/25 06:48 03/01/25 07:00 03/01/25 08:00 Temperature Temperature Source Pulse Rate 91 92 Pulse Strength Respiratory Rate 20 H Respiratory Effort Respiratory Depth Respiratory Pattern Blood Pressure 101/55 L Blood Pressure Mean 70 Blood Pressure Source Monitor Blood Pressure Position Semi-Fowlers Blood Pressure Location Right Forearm Pulse Ox 92 90 Oxygen Delivery Method Airvo Airvo Oxygen Flow Rate (L/min) Fraction of Inspired Oxygen (FIO2) 62 70 03/01/25 08:00 03/01/25 08:00 03/01/25 09:00 Temperature Temperature Source Pulse Rate 92 92 Pulse Strength Respiratory Rate 19 H 21 H Respiratory Effort Normal Respiratory Depth Normal Respiratory Pattern Normal Blood Pressure 84/53 L 102/56 L Blood Pressure Mean 63 71 Blood Pressure Source Monitor Monitor Blood Pressure Position Semi-Fowlers Semi-Fowlers Blood Pressure Location Right Forearm Right Forearm Pulse Ox 92 97 Oxygen Delivery Method Airvo Airvo Airvo Oxygen Flow Rate (L/min) 20 20 Fraction of Inspired Oxygen (FIO2) 70 03/01/25 10:00 03/01/25 10:00 03/01/25 11:00 Temperature 98.7 F Temperature Source Core Pulse Rate 88 85 Pulse Strength Weak (1+) Respiratory Rate 19 H 17 Respiratory Effort Respiratory Depth Respiratory Pattern Blood Pressure 84/52 L 87/53 L Blood Pressure Mean 62 64 Blood Pressure Source Monitor Monitor Blood Pressure Position Semi-Fowlers Semi-Fowlers Blood Pressure Location Right Forearm Right Forearm Pulse Ox 96 97 Oxygen Delivery Method Airvo Airvo Oxygen Flow Rate (L/min) 20 45 Fraction of Inspired Oxygen (FIO2) Weight Weight: 143.1 kg Body Mass Index (BMI) 57.6 EEG Results Procedure Details EEG Procedure Details: SIERRA MORRISON is a 74 year old F with a past medical history of , who presents for evaluation of Electroencephalogram on DATE at TIME Lab / Micro Data 03/01/25 05:46 03/01/25 05:46 Labs: Laboratory Results - last 24 hr 02/28/25 09:57: NT pro BNP II 75 02/28/25 12:40: Troponin T Hi Sens 2 Hr 22 H 02/28/25 14:57: Troponin T Hi Sens 4Hr 22 H 02/28/25 19:45: Ammonia 13.2, Procalcitonin 0.07 03/01/25 05:46: WBC 14.1 H, RBC 3.05 L, Hgb 9.9 L, Hct 29.4 L, MCV 96.4, MCH 32.5 H, MCHC 33.7, RDW Std Deviation 55.5 H, RDW Coeff of [place] 15.7 H, Plt Count 132 L, MPV 11.0, Immature Gran % (Auto) 0.600, Neut % (Auto) 86.5 H, Lymph % (Auto) 7.0 L, Spencer % (Auto) 5.7, Eos % (Auto) 0.1, Baso % (Auto) 0.1, Absolute Neuts (auto) 12.2 H, Absolute Lymphs (auto) 0.99, Nucleated RBC % 0, Sodium 140, Potassium 4.5, Chloride 102, Carbon Dioxide 24.6, Anion Gap 14, BUN 42 H, C reatinine 1.56 H, Estim Creat Clear Calc 42.94 L, Est GFR (MDRD) Non-Af 34 L, B UN/Creatinine Ratio 26.8 H, Glucose 118 H, Calcium 9.3 03/01/25 08:15: Ammonia 27.5 Micro: Microbiology 02/28/25 15:00 Mucosa - Nasopharyngeal Respiratory Panel (PCR) - Final 02/28/25 10:57 Mucosa - Nose SARS-CoV-2, Influenza & RSV (PCR) - Final ABG Data ABG results: ABG 02/28/25 03/01/25 15:32 08:09 Specimen Type ART ART Sample Site L Radial L Radial pH 7.46 H 7.54 H Bicarbonate Actual 36.6 H 31.9 H Total CO2 38 33 Base Excess 13 H 9 H O2 Saturation 93 L 95 O2 % 8.0 60.0 ABG pCO2 51.0 H 37.5 ABG pO2 65 L 68 L [place] Test Positive Positive O2 Delivery Device Cannula airvo Vent Mode Not entered Not entered Clinical Comments 45L Imaging Radiology Impression Chest X-Ray 03/01/25 05:20 IMPRESSION: There is cardiomegaly with mild central vascular congestion. There is elevation of the right hemidiaphragm, which can indicate paralysis, similar to the prior. Reading Location: [facility] Active Medications Active Medications Active Medications: Current Medications Generic Name Dose Route Start Last Admin Trade Name Freq PRN Reason Stop Dose Admin Albuterol Sulfate 2.5 mg 02/28/25 14:42 Albuterol 2.5 Mg/3 Ml Vial.Neb. INHALATION Q4H PRN shortness of breath or wheezing Amlodipine Besylate 10 mg 03/01/25 10:00 03/01/25 10:30 Amlodipine 10 Mg Tablet PO Not Given DAILY [facility] Protocol Clonazepam 0.5 mg 02/28/25 22:00 03/01/25 10:30 Clonazepam 0.5 Mg Tablet PO Not Given BID [facility] Clopidogrel Bisulfate 75 mg 03/01/25 10:00 03/01/25 10:31 Clopidogrel Bisulfate 75 Mg Tablet PO Not Given DAILY [facility] Docusate Sodium 100 mg 03/01/25 10:00 03/01/25 10:28 Docusate Sodium 100 Mg Capsule PO Not Given DAILY [facility] Enoxaparin Sodium 40 mg 03/01/25 10:00 03/01/25 11:33 Enoxaparin 40 Mg/0.4 Ml Syringe SC 40 mg DAILY [facility] Administration Escitalopram Oxalate 10 mg 03/01/25 10:00 03/01/25 10:30 Escitalopram Oxalate 10 Mg Tablet PO Not Given DAILY [facility] Hydrochlorothiazide 25 mg 03/01/25 10:00 03/01/25 10:29 Hydrochlorothiazide 25 Mg Tablet PO Not Given DAILY [facility] Protocol Sodium Chloride 250 mls @ 15 mls/hr 02/28/25 14:35 03/01/25 08:50 IV 15 mls/hr .[id number] PRN Administration Saline Flush Sodium Chloride 250 mls @ 15 mls/hr 02/28/25 14:35 IV .[id number] PRN Additional IVPB Infusion Meropenem 1 gm/ Sodium 100 mls @ 33 mls/hr 03/01/25 08:05 03/01/25 11:52 Chloride IV Infused Q12 JEFFREY Infusion Latanoprost 1 drp 02/28/25 22:00 02/28/25 22:29 Latanoprost 0.005% 1 Bottle OPHTHALMIC Not Given QHS [facility] Levothyroxine Sodium 200 mcg 02/28/25 22:00 02/28/25 22:28 Levothyroxine 100 Mcg Tablet PO Not Given QHS [facility] Losartan Potassium 50 mg 03/01/25 10:00 03/01/25 10:28 Losartan Potassium 50 Mg Tablet PO Not Given DAILY [facility] Protocol Metoprolol Succinate 100 mg 02/28/25 22:00 02/28/25 22:28 Metoprolol(Xl)Succ 100 Mg Tablet PO Not Given QHS [facility] Protocol Nystatin 1 applic 02/28/25 22:00 03/01/25 05:23 Nystatin Powder 15gm Bottle TOPICAL Not Given TID [facility] Protocol Paliperidone 6 mg 02/28/25 22:00 02/28/25 22:28 Paliperidone 3 Mg Tab.Er.24 PO Not Given QHS [facility] Pantoprazole Sodium 40 mg 02/28/25 22:00 03/01/25 10:31 Pantoprazole Sodium 40 Mg Tablet PO Not Given BID [facility] Quetiapine Fumarate 50 mg 02/28/25 22:00 02/28/25 23:06 Quetiapine 25 Mg Tablet PO Not Given QHS [facility] Protocol Sodium Chloride 10 - 40 ml 02/28/25 14:35 03/01/25 08:01 0.9% Saline Lock 10 Ml Syringe IV 10 ml UD PRN Administration SALINE FLUSH
--- NOTE | 2025-03-01 12:51 | MRI_ITS ---
PROCEDURE: BRAIN W/WO CONTRAST 03/01/2025 REASON FOR EXAM: CVA EVALUATION TECHNIQUE: Procedure Code: [id number] Modality: MR Procedure: BRAIN W/WO CONTRAST Multiplanar and multisequence images were obtained. CONTRAST: Clariscan VOLUME: 28 mL COMPARISON: None. FINDINGS: Brain: Severe cerebral atrophy and chronic periventricular white matter disease. No restricted diffusion. No hemorrhage. No mass-effect or midline shift. The orbits are unremarkable without acute findings. No ventriculomegaly. Diffusion: No restricted diffusion. Ventricles: No ventriculomegaly. Major Intracranial Vessels: Patent. Sinuses: Paranasal sinuses mucosal thickening. Mastoids: Fluid retention in the inferior right mastoid cells. MRI/Brain W/WO Contrast IMPRESSION: No acute brain abnormalities. Chronic findings are as detailed. Reading Location: [facility]
[2025-03-01] MEDS: Latanoprost 0.005% 1 Bottle 1 DRP OPHTHALMIC (21:46)
[2025-03-02] VITALS (13 sets, daily range): BP systolic 94–139; BP diastolic 51–99; PULSE 76–102; RESP 13–18; TEMP 36.2–36.9; O2SAT 90–98; BMI 57.2
[2025-03-02] MEDS: 0.9% Saline Lock 10 ML Syringe IV (02:00)
[2025-03-02 05:27] LABS: Hematocrit 29.8 % (37-47); Hemoglobin 10.0 g/dL (12.0-15.0); Immature Granulocytes Count 0.050 X10^3/uL (0.0-0.0); Mean Corp Hgb Conc 33.6 g/dL (32-36); Mean Corpuscular Volume 97.4 fL (81-99); Mean Platelet Vol. 10.3 fl (6.2-12.0); NRBC Flagged by Analyzer 0.2 % (0-5); Platelet Count 115 K/mm3 (150-450); RBC Distribution Width CV 15.9 % (11.6-14.6); RBC Distribution Width SD 55.8 fl (35.1-43.9); Red Blood Count 3.06 M/mm3 (4.2-5.4); White Blood Count 9.2 K/mm3 (4.4-11.0)
[2025-03-02 05:52] LABS: Anion Gap 14 (5-15); BUN 46 mg/dL (4-19); BUN/Creat Ratio 35.5 RATIO (10-20); Calcium,Total 9.8 mg/dL (7.6-11.0); Carbon Dioxide 26.2 mmol/L (21.0-32.0); Chloride 105 mmol/L (98-108); Estimated Creatinine Clearance 51.30 ml/min (50-250); Glucose 98 mg/dL (70-99); Potassium 4.0 mmol/L (3.3-5.1)
--- NOTE | 2025-03-02 08:49 | PCM.PN.INT ---
Assessment & Plan Assessment/Plan (1) Acute hypoxic respiratory failure: (2) Altered mental status: PLAN: Plan RECOMMENDATIONS: 1. Resume PAP therapy with naps and nightly. 2. Empiric antimicrobials. 3. PT/OT. 4. Encourage incentive spirometer use and mobilize patient as tolerated. 5. The patient is stable for transfer out of the ICU. Will sign off at this time. IMPRESSIONS: 1. Acute hypoxemic respiratory failure Resolved. On presentation, the patient was noted to have bilateral ground glass opacities, concerning for possible pulmonary edema versus infectious etiology. While the patient did receive IV Lasix, her creatinine subsequently increased. In light of her questionable history of aspiration, plan to continue empiric antimicrobials. The patient's CODE STATUS was confirmed to be DNR CCA without intubation. The patient is currently maintaining appropriate oxygen saturations on room air. 2. Encephalopathy Unclear etiology. An extensive neurological workup was unrevealing. No significant metabolic derangements have been noted on lab workup. Arterial blood gas did not reveal a significant etiology. EEG demonstrated no epileptiform discharges or lateralizing signs. MRI brain was unremarkable. 3. History of obstructive sleep apnea/asthma Continue as needed bronchodilator therapy. Okay to resume nocturnal PAP therapy given history of MARY. 4. History of schizophrenia/hypothyroidism/hypertension/heart failure with preserved ejection fraction/super morbid obesity Complicates care, management, recovery and prognosis. Continue supportive measures as noted above. Okay to advance diet as tolerated. This note was generated with [employer] dictation software. It may contain incorrect words, spelling, and punctuation that were not noted in checking the note before signing. Subjective Subjective The patient was seen and examined at the bedside this morning. Events from the last 24 hours have been reviewed. The patient is currently afebrile, hemodynamically stable and maintaining appropriate oxygen saturations on room air. The patient, this morning, is completely alert and appropriately interactive. Her complete neurological workup has been unremarkable. White blood cell count is normal. Hemoglobin and platelet count are stable. Creatinine is stable at 1.3. No overnight issues were identified by the nursing staff. Objective Data Objective Data The patient's most recent lab work, culture data and imaging studies have all been personally reviewed. Infectious workup has been unrevealing to date. Vital Signs: Vital Signs Temp Pulse Resp BP Pulse Ox O2 Del Method O2 Flow Rate 96.8 F L 102 H 18 139/84 H 96 Nasal Cannula 2 03/02/25 07:00 03/02/25 08:00 03/02/25 08:00 03/02/25 08:00 03/02/25 08:01 03/02/25 08:01 03/02/25 08:01 FiO2 70 03/01/25 08:00 Oxygen Flow Rate (L/min) 2 Oxygen Delivery Method Nasal Cannula Weight: 313 lb 4.43 oz Body Mass Index (BMI) 57.2 Intake & Output: Intake and Output for Last 24 Hours 02/28/25 03/01/25 03/02/25 23:59 23:59 23:59 Intake Total 300 / 300 100 / 100 350 / 350 Output Total 1550 / 1595 865 / 935 390 / 390 Balance -1250 / -1295 -765 / -835 -40 / -40 Lab / Micro Data Attestation: I reviewed the patient's lab results. 03/02/25 05:15 03/02/25 05:15 Labs: Laboratory Results - last 24 hr 02/28/25 10:45: Phenobarbital 22 03/01/25 08:15: Ammonia 27.5 03/02/25 05:15: WBC 9.2, RBC 3.06 L, Hgb 10.0 L, Hct 29.8 L, MCV 97.4, MCH 32.7 H, MCHC 33.6, RDW Std Deviation 55.8 H, RDW Coeff of Piedad 15.9 H, Plt Count 115 L, MPV 10.3, Immature Gran % (Auto) 0.500, Neut % (Auto) 72.7 H, Lymph % (Auto) 16.8 L, [place] % (Auto) 8.4, Eos % (Auto) 1.5, Baso % (Auto) 0.1, Absolute Neuts (auto) 6.7, Absolute Lymphs (auto) 1.55, Nucleated RBC % 0.2, Sodium 145, Potassium 4.0, Chloride 105, Carbon Dioxide 26.2, Anion Gap 14, BUN 46 H, Creatinine 1.30 H, Estim Creat Clear Calc 51.30, Est GFR (MDRD) Non-Af 43 L, BUN/Creatinine Ratio 35.5 H, Glucose 98, Calcium 9.8 Micro: Microbiology 02/28/25 10:45 Urine, Catheterized Urine Culture - Final Culture exhibits no growth. 02/28/25 15:00 Mucosa - Nasopharyngeal Respiratory Panel (PCR) - Final 02/28/25 10:57 Mucosa - Nose SARS-CoV-2, Influenza & RSV (PCR) - Final Radiography Diagnostic Testing: Radiology Impression Brain MRI 03/01/25 12:51 IMPRESSION: No acute brain abnormalities. Chronic findings are as detailed. Reading Location: [facility] Physical Exam Const alert and no apparent distress General Appearance: cooperative HEENT normocephalic and head/scalp atraumatic General Ear: hearing grossly impaired Eyes conjunctivae normal and no scleral icterus Neck supple General: trachea midline Chest inspection of chest normal Resp normal respiratory effort and no use of accessory muscles Auscultation: diminished lung sounds; Negative for rales, rhonchi or wheezes Cardio regular rate and regular rhythm GI normal to inspection, nondistended, normoactive bowel sounds Extremity no clubbing, cyanosis or edema Skin no rashes or lesions noted Neuro CN's II-XII intact bilaterally and no focal motor deficits Psych cooperative and affect normal Charges/Coding Visit Charges Inpatient E&M: 18378 Subs Hosp L2
[2025-03-02] MEDS: Meropenem 1 GM in 0.9% Normal Saline (100mL MB+) 100 ML IV (09:14)
--- NOTE | 2025-03-02 09:53 | CASEMGMT ---
Discharge Planning Updates sent to [facility] with note that pt may return today. Christina Pastrana DC Planning Asst.
--- NOTE | 2025-03-02 11:43 | TREXTCAR_ITS ---
Diet Diet Order/Speech Therapy: INPATIENT Hospital Diet / Speech Therapy Order(s) 03/02/25 09:27 Diet: Carbohydrate Controlled Routine Orders/Code Status Routine Lab Work: CBC and BMP Code Status: DNRCC-A DC O2, CPAP, BIPAP needs Home O2 Discharge instructions: No Therapies Physical Therapy: Eval and Treat Occupational Therapy: Eval and Treat Problem/Diagnosis (1) Acute hypoxic respiratory failure: Status: Acute Code(s): J96.01 - Acute respiratory failure with hypoxia (2) Altered mental status: Status: Acute Code(s): R41.82 - Altered mental status, unspecified Plan 1. Acute metabolic encephalopathy with acute hypoxic respiratory insufficiency/seizure disorder/possible aspiration event ? Unclear as to the etiology at the moment as she does not have obvious signs of bacterial infection ? There is some concern for volume overload though proBNP is decidedly normal even in the face of her morbid obesity ? She is on Airvo ? Will check respiratory panel ? She does have a seizure disorder so we will obtain an EEG and a phenobarbital level as well, there was not concern by the insurance salesperson of having a nonconvulsive seizure therefore she was given a dose of Ativan, neurology is pending for evaluation ? Will trial her on meropenem given the rise in her white count 2. Essential HTN/chronic diastolic CHF/AC ? Echocardiogram from 08/14/2024 with an EF of 60% stage I diastolic dysfunction with an RVSP of 50 mmHg ? proBNP is normal and she has no lower extremity edema, it is difficult to hear posterior breath sounds given body habitus and altered mental status ? Will trial her on IV dose of Lasix but I do not believe that she has CHF exacerbation at this time ? Can resume her home blood pressure medications ? Will monitor and make adjustments as necessary ? Will hold off of all Lasix as she does not have a heart failure exacerbation and now her creatinine has risen to 1.56 consistent with an AC based on her baseline creatinine of 0.9 3. Hypothyroidism ? Stable ? Continue with Synthroid 4. Schizophrenia ? Stable ? Resume her home medications 5. Glaucoma ? Stable ? Continue with her home eyedrops DVT: Lovenox Allergies/Procedures Done in Hospital Allergies amoxicillin Allergy (Verified 02/28/25 10:33) NEEDS FOLLOW-UP codeine Allergy (Verified 02/28/25 10:33) Shortness of breath cyclobenzaprine (From Flexeril) Allergy (Verified 02/28/25 10:33) NEEDS FOLLOW-UP dextromethorphan HBr (From Tylenol Cold Multi-Symptom) Allergy (Verified 02/28/25 10:33) Shortness of breath diazepam (From Valium) Allergy (Verified 02/28/25 10:33) Shortness of breath fluticasone (From Advair Diskus) Allergy (Verified 02/28/25 10:33) NEEDS FOLLOW-UP Food Allergies: Uncoded Allergy (Verified 02/28/25 10:33) Shortness of breath banana peels, passion fruit guaifenesin (From Tylenol Cold Multi-Symptom) Allergy (Verified 02/28/25 10:33) Shortness of breath hydrocodone bitartrate (From Vicodin) Allergy (Verified 02/28/25 10:33) Shortness of breath iodine Allergy (Verified 02/28/25 10:33) Anaphylaxis Latex, Natural Rubber Allergy (Verified 02/28/25 10:33) Shortness of breath morphine Allergy (Verified 02/28/25 10:33) Shortness of breath NSAIDS (Non-Steroidal Anti-Inflamma Allergy (Verified 02/28/25 10:33) Shortness of breath oxaprozin (From Daypro) Allergy (Verified 02/28/25 10:33) NEEDS FOLLOW-UP oxycodone Allergy (Verified 02/28/25 10:33) NEEDS FOLLOW-UP phenylephrine HCl (From Tylenol Cold Multi-Symptom) Allergy (Verified 02/28/25 10:33) Shortness of breath phenytoin (From Dilantin) Allergy (Verified 02/28/25 10:33) NEEDS FOLLOW-UP phenytoin sodium (From Dilantin) Allergy (Verified 02/28/25 10:33) Shortness of breath phenytoin sodium extended (From Dilantin) Allergy (Verified 02/28/25 10:33) Shortness of breath povidone-iodine (From Betadine) Allergy (Verified 02/28/25 10:33) BLISTERS pseudoephedrine HCl (From Tylenol Cold Multi-Symptom) Allergy (Verified 02/28/25 10:33) Shortness of breath salmeterol (From Advair Diskus) Allergy (Verified 02/28/25 10:33) NEEDS FOLLOW-UP shellfish derived Allergy (Verified 02/28/25 10:33) NEEDS FOLLOW-UP soap (From Betadine) Allergy (Verified 02/28/25 10:33) BLISTERS tetracycline Allergy (Verified 02/28/25 10:33) NEEDS FOLLOW-UP tositumomab iodine-131 Allergy (Verified 02/28/25 10:33) NEEDS FOLLOW-UP muscle relaxers Allergy (Uncoded 12/16/24 13:26) Shortness of breath Type of Care/Length of Stay Estimated LOS: Convalescent Care Less Than 30 days Type of Care Needed: Skilled Rehab Potential: Fair Prognosis: Fair Additional Orders/Day of Discharge Day of Discharge: 03/02/25 Dietary and Speech Recommendations Dietitian Recommendations/Changes: Will change diet to 1800 edilma Consistent CHO/Cardiac diet Will continue to follow and monitor for changes in pt nutritional status and make additional rec as indicated. Discharge Plan Admission Admit Date/Time: 02/28/25 13:11 Attending Provider: Luis Hernández Primary Care Provider: Panda Mota Consulting Providers: Colt Nascimento; Hoa Jacobson; Kaden Lee; Trish Agustin; Autumn Astorga; Nilda Palma; Hansel Spears; Dom Morley; REANNA SIDHU; Jaciel Browne; Macrina Tay; Kike Kline; Myra Rose; Kristen Jack; Pedro Stiles; Bharati Ordonez; Boo Renae; Eliezer Ling; Tangela Juarez; Jitendra Santizo; Bob Chu; Nasim Reyes; Hammad Bland; Deja Avery; Doyle Gaxiola; Rose Issa; Franky Huitron Discharge Orders/Prescriptions Prescriptions: New amlodipine 10 mg Tablet 10 mg PO DAILY Qty: 0 0RF amoxicillin-pot clavulanate 875-125 mg tablet 1 tab PO BID 7 Days Qty: 14 0RF Continued Artificial Tears(glycerin-peg) 1-0.3 % drops 2 drp ophthalmic (eye) Q4H PRN (Reason: dry eye(s)) fluticasone propionate 220 mcg/actuation HFA aerosol inhaler 2 inh inhalation BID losartan 50 mg tablet 50 mg PO DAILY Rx Instructions: hold if BP less than 100 polyethylene glycol 3350 [Miralax] 17 gram/dose powder 17 g PO DAILY PRN (Reason: CONSTIPATION ) latanoprost 0.005 % drops 1 drp ophthalmic (eye) QHS hydrochlorothiazide 25 mg tablet 25 mg PO QDAY metoprolol succinate 100 MG tablet 100 mg PO QHS phenobarbital 60 mg tablet 60 mg PO Q12H paliperidone 6 MG tablet 6 mg PO QHS acetaminophen 500 mg tablet 500 mg PO Q6H PRN (Reason: pain) levothyroxine 200 mcg tablet 200 mcg PO QHS cholecalciferol (vitamin D3) 25 mcg (1,000 unit) tablet 50 mcg PO DAILY escitalopram oxalate 10 mg Tablet 10 mg PO DAILY Qty: 0 0RF quetiapine 100 mg tablet 50 mg PO QHS triamcinolone acetonide 0.1 % cream 1 applic topical Q8 PRN (Reason: itching) pantoprazole [Protonix] 40 mg tablet,delayed release (DR/EC) 40 mg PO BID albuterol sulfate 90 mcg/actuation HFA aerosol inhaler 2 puff inhalation Q4H PRN (Reason: shortness of breath or wheezing) furosemide [Lasix] 40 mg tablet 40 mg PO DAILY Qty: 90 0RF bisacodyl 10 mg suppository 10 mg GA DAILY PRN (Reason: constipation) (DME) CPAP - Continuous Positive Airway Pressure([facility] INFORMATIONAL USE ONLY) 0 .ROUTE .MEDSUPPLY Patient Comments: [id number] quetiapine 50 mg tablet 50 mg PO QHS albuterol sulfate 90 mcg/actuation HFA aerosol inhaler 2 inh inhalation Q4H PRN (Reason: wheezing) Referrals / Follow Up: Panda Mota MD [Primary Care Provider, Family Practice] Disposition Disposition (needs filled in before D/C Order can be placed): Shelter Facility
--- NOTE | 2025-03-02 12:13 | NEURO.PNOTE ---
Assessment and Plan: Neuro Assessment/Plan SIERRA MORRISON is a 74 F with a past medical history of Stroke, schizophrenia, MARY, seizure on Phenobarbital, who is presenting form half-way with encephalopathy. Her toxic metabolic workup has been negatie for the most part. On exam she has eyes opened and tracking but not communicating and not moving extremities. She has history of seizures reportedly described as staring spells, for which she is on Phenobarb. Her spot EEG now is negative for seizures or epileptic activity She has had prior similar presentations in the past from which she improves spontaneously, which raises concern for non-organic nature of these presentations. EEG with no epileptic activity MRI brain with no acute finidngs Today, she is doing much better, had improved spontaneously back to baseline We will sign off. Please call with questions. I personally attended this patient and spent a total time of 35 minutes evaluating this patient including clinical assessment, review of chart, medical history imaging, and determining appropriate treatment and workup. Subject: Neurology Subjective she is doing much better today On exam she is awake, alert following commands, both arms anti gravity EEG Results Procedure Details EEG Procedure Details: SIERRA MORRISON is a 74 year old F with a past medical history of , who presents for evaluation of Electroencephalogram on DATE at TIME Objective Data Objective Data Vital Signs: Vital Signs Temp Pulse Resp BP Pulse Ox O2 Del Method O2 Flow Rate 98.5 F 96 16 126/99 H 92 Room Air 2 03/02/25 11:00 03/02/25 11:00 03/02/25 11:00 03/02/25 11:00 03/02/25 11:00 03/02/25 11:00 03/02/25 08:01 FiO2 70 03/01/25 08:00 Oxygen Flow Rate (L/min) 2 Oxygen Delivery Method Room Air Weight: 142.1 kg Body Mass Index (BMI) 57.2 Intake & Output: Intake and Output for Last 24 Hours 02/28/25 03/01/25 03/02/25 23:59 23:59 23:59 Intake Total 300 / 300 100 / 100 350 / 350 Output Total 1550 / 1595 865 / 935 390 / 390 Balance -1250 / -1295 -765 / -835 -40 / -40 Lab / Micro Data 03/02/25 05:15 03/02/25 05:15 Labs: Laboratory Results - last 24 hr 02/28/25 10:45: Phenobarbital 22 03/02/25 05:15: WBC 9.2, RBC 3.06 L, Hgb 10.0 L, Hct 29.8 L, MCV 97.4, MCH 32.7 H, MCHC 33.6, RDW Std Deviation 55.8 H, RDW Coeff of Piedad 15.9 H, Plt Count 115 L, MPV 10.3, Immature Gran % (Auto) 0.500, Neut % (Auto) 72.7 H, Lymph % (Auto) 16.8 L, [place] % (Auto) 8.4, Eos % (Auto) 1.5, Baso % (Auto) 0.1, Absolute Neuts (auto) 6.7, Absolute Lymphs (auto) 1.55, Nucleated RBC % 0.2, Sodium 145, Potassium 4.0, Chloride 105, Carbon Dioxide 26.2, Anion Gap 14, BUN 46 H, Creatinine 1.30 H, Estim Creat Clear Calc 51.30, Est GFR (MDRD) Non-Af 43 L, BUN/Creatinine Ratio 35.5 H, Glucose 98, Calcium 9.8 Micro: Microbiology 02/28/25 10:45 Urine, Catheterized Urine Culture - Final Culture exhibits no growth. 02/28/25 15:00 Mucosa - Nasopharyngeal Respiratory Panel (PCR) - Final 02/28/25 10:57 Mucosa - Nose SARS-CoV-2, Influenza & RSV (PCR) - Final Radiography Diagnostic Testing: Radiology Impression Brain MRI 03/01/25 12:51 IMPRESSION: No acute brain abnormalities. Chronic findings are as detailed. Reading Location: [facility]
--- NOTE | 2025-03-02 12:57 | CASEMGMT ---
Discharge Planning Discharge orders, signed med list, and transport time sent to [facility]. Physicians will transport pt by cot at 2p. Nursing, SW, and pt updated. VM left for pts sister/HC POA (Colleen). Christina Pastrana DC Planning Asst.
--- NOTE | 2025-03-02 16:07 | DS.PCM_ITS ---
Providers Date of Admission: 02/28/25 Primary Care Physician: Dr. 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 Routine Consulting Provider: Int[facility]ivists/Pulmonary Med Reason for Consult: Resp failure EMERGENT Consult: No Notified: Yes Date Notified: 02/28/25 Time Notified: 06:45 Method of Notification: Text Reason For Visit: AMS Diagnosis Discharge Diagnosis (1) Acute hypoxic respiratory failure: Status: Acute Code(s): J96.01 - Acute respiratory failure with hypoxia (2) Altered mental status: Status: Acute Code(s): R41.82 - Altered mental status, unspecified Medications at Discharge Home Medications metoprolol succinate 100 mg tablet,extended release 24 hr 100 mg PO QHS 03/28/13 paliperidone 6 mg tablet,extended release 24 hr 6 mg PO QHS 01/31/17 fluticasone propionate 220 mcg/actuation HFA aerosol inhaler 2 inh inhalation BID 11/27/23 latanoprost 0.005 % eye drops 1 drp ophthalmic (eye) QHS 11/27/23 losartan 50 mg tablet 50 mg PO DAILY blood pressure 11/27/23 phenobarbital 60 mg tablet 60 mg PO Q12H seizures 11/27/23 polyethylene glycol 3350 17 gram/dose oral powder (Miralax) 17 g PO DAILY PRN CONSTIPATION 11/27/23 propylene glycol 1 %-glycerin 0.3 % eye drops (Artificial Tears (glycerin-peg)) 2 drp ophthalmic (eye) Q4H PRN dry eye(s) 11/27/23 acetaminophen 500 mg tablet 500 mg PO Q6H PRN pain 03/11/24 cholecalciferol (vitamin D3) 25 mcg (1,000 unit) tablet 50 mcg PO DAILY supplement 03/11/24 levothyroxine 200 mcg tablet 200 mcg PO QHS 03/11/24 escitalopram oxalate 10 mg tablet 10 mg PO DAILY #0 tabs 03/16/24 albuterol sulfate 90 mcg/actuation aerosol inhaler 2 puff inhalation Q4H PRN shortness of breath or wheezing 08/13/24 pantoprazole 40 mg tablet,delayed release (Protonix) 40 mg PO BID 08/13/24 quetiapine 100 mg tablet 50 mg PO QHS 08/13/24 triamcinolone acetonide 0.1 % topical cream 1 applic topical Q8 PRN itching 08/13/24 furosemide 40 mg tablet (Lasix) 40 mg PO DAILY #90 tabs 08/17/24 hydrochlorothiazide 25 mg tablet 25 mg PO QDAY 12/16/24 CPAP - Continuous Positive Airway Pressure([facility] INFORMATIONAL USE ONLY) 02/28/25 albuterol sulfate 90 mcg/actuation aerosol inhaler 2 inh inhalation Q4H PRN wheezing 02/28/25 bisacodyl 10 mg rectal suppository 10 mg [place] DAILY PRN constipation 02/28/25 quetiapine 50 mg tablet 50 mg PO QHS schizo 02/28/25 amlodipine 10 mg tablet 10 mg PO DAILY #0 tabs 03/02/25 amoxicillin 875 mg-potassium clavulanate 125 mg tablet 1 tab PO BID 7 days #14 tabs 03/02/25 Hospital Course Operations None Procedures Electroencephalogram Summary of Care Provided Minutes Spent on Discharge: 33 Hospital Course: Per HPI: SIERRA MORRISON, is a 74 F who presents to the hospital from the assisted with altered mental status. She is unable to provide any history and there is sisters at bedside who provide a limited history with the fact that she is ANO x 3 at baseline and was fine on Saturday except she had an episode of staring that the assisted thought could be a seizure and then overnight Saturday into Saturday she became more confused. Today she is nonverbal but will track and respond to voice. In the emergency room workup was essentially negative she was afebrile without a leukocytosis, UA was negative for urinary tract infection and CT of the chest abdomen pelvis showed some ground glass opacities however her proBNP was normal and indicate that she is not in a significant heart failure exacerbation, though she is morbidly obese which will falsely lower her proBNP. A viral panel was not checked in the ER which we will do on admission. Of note in the emergency room she was on room air however when she arrived to the floor she all of a sudden needed 8 L nasal cannula unclear as to where this oxygen requirement is coming from at the moment and will be worked up though she does not appear to be significantly short of breath. Hospital Course: 1. Acute metabolic encephalopathy with acute hypoxic respiratory insufficiency/seizure disorder/possible aspiration event/AC?74-year-old female with a history of schizophrenia presented to the hospital with acute metabolic encephalopathy. There is no obvious signs of cause and all of workup was negative. She never even had any respiratory distress to be able to call her respiratory failure but she did require 8 L nasal cannula and then eventual BiPAP intervention. She did have an MRI which was unremarkable as well as an EEG which did not show any epileptiform discharges. There was some concern that this could be due to an overdose on her phenobarbital so level was obtained which was normal at 22 restarted on discharge. She did have an aspiration event while on the BiPAP so she was started on meropenem and transition to Augmentin on discharge. She did have spontaneous improvement and there is concern for a neuropsychiatric component to this episode. I did discuss with family the plan for discharge and they expressed understanding of the risk and benefits of going back to the assisted and would like to go today. I also did discuss with the physician at the assisted who was happy to accept her back is on she can take p.o. which she was able to do today. Of note she did have an AC 1.56 peak and came back down to 1.3 on the day of discharge with a baseline creatinine of 0.9. 2. Essential hypertension, chronic diastolic CHF, hypothyroidism, schizophrenia, glaucoma are all chronic medical conditions which complicate her care. Her home medications were continued where appropriate Physical Exam Narrative General: Alert, Oriented x2, Cooperative, No apparent distress, morbidly obese HEENT: Atraumatic, PERRLA, EOMI, Normocephalic Oral: Moist Mucosa Neck: Supple, No JVD Lungs: Diminished, Normal air movement, rhonchi, No wheeze, No rales Cardiovascular: Regular rate, Regular Rhythm, Normal S1, Normal S2, No murmurs Abdomen: Soft, Non Tender, Non-Distended, No Hepato-splenomegaly Extremities: No edema, Capillary Refill Less than 3 Seconds Skin: No rashes, No breakdown Musculoskeletal: No Tenderness to Palpation of Joints or Extremities Neurological: No focal neurological deficits, moves all extremities but does not really comply with exam Psych/Mental Status: Normal affect, appropriate Weight / BMI Weight Weight: 313 lb 4.43 oz Body Mass Index (BMI) 57.2 ABG / Lab / Microbiology Data 03/02/25 05:15 03/02/25 05:15 Laboratory: Laboratory Results - last 24 hr 02/28/25 10:45: Phenobarbital 22 03/02/25 05:15: WBC 9.2, RBC 3.06 L, Hgb 10.0 L, Hct 29.8 L, MCV 97.4, MCH 32.7 H, MCHC 33.6, RDW Std Deviation 55.8 H, RDW Coeff of P[place] 15.9 H, Plt Count 115 L , MPV 10.3, Immature Gran % (Auto) 0.500, Neut % (Auto) 72.7 H, Lymph % (Auto) 16.8 L, [place] % (Auto) 8.4, Eos % (Auto) 1.5, Baso % (Auto) 0.1, Absolute Neuts (auto) 6.7, Absolute Lymphs (auto) 1.55, Nucleated RBC % 0.2, Sodium 145, Potassium 4.0, Chloride 105, Carbon Dioxide 26.2, Anion Gap 14, BUN 46 H, C reatinine 1.30 H, Estim Creat Clear Calc 51.30, Est GFR (MDRD) Non-Af 43 L, B UN/Creatinine Ratio 35.5 H, Glucose 98, Calcium 9.8 Microbiology: Microbiology 02/28/25 10:45 Urine, Catheterized Urine Culture - Final Culture exhibits no growth. 02/28/25 15:00 Mucosa - Nasopharyngeal Respiratory Panel (PCR) - Final 02/28/25 10:57 Mucosa - Nose SARS-CoV-2, Influenza & RSV (PCR) - Final D/C Instructions DC O2, CPAP, BIPAP Needs Home O2 Discharge instructions: No Meaningful Use Info Meaningful Use Meaningful Use Diagnoses (Choose all that apply): None applicable Discharge Plan Admission Admit Date/Time: 02/28/25 13:11 Attending Provider: Luis Hernández Primary Care Provider: Panda Mota Consulting Providers: Colt Nascimento; Hoa Jacobson; Kaden Lee; Trish Agustin; Autumn Astorga; Nilda Palma; Hansel Spears; Dom Morley; REANNA SIDHU; Jaciel Browne; Macrina Tay; Kike Kline; Myra Rose; Kristen Jack; Pedro Stiles; Bharati Ordonez; Boo Renae; Eliezer Ling; Tangela Juarez; Jitendra Santizo; Bob Chu; Nasim Reyes; Hammad Bland; Deja Avery; Doyle Gaxiola; Rose Issa; Franky Huitron Discharge Orders/Prescriptions Prescriptions: New amlodipine 10 mg Tablet 10 mg PO DAILY Qty: 0 0RF amoxicillin-pot clavulanate 875-125 mg tablet 1 tab PO BID 7 Days Qty: 14 0RF Continued Artificial Tears(glycerin-peg) 1-0.3 % drops 2 drp ophthalmic (eye) Q4H PRN (Reason: dry eye(s)) fluticasone propionate 220 mcg/actuation HFA aerosol inhaler 2 inh inhalation BID losartan 50 mg tablet 50 mg PO DAILY Rx Instructions: hold if BP less than 100 polyethylene glycol 3350 [Miralax] 17 gram/dose powder 17 g PO DAILY PRN (Reason: CONSTIPATION ) latanoprost 0.005 % drops 1 drp ophthalmic (eye) QHS hydrochlorothiazide 25 mg tablet 25 mg PO QDAY metoprolol succinate 100 MG tablet 100 mg PO QHS phenobarbital 60 mg tablet 60 mg PO Q12H paliperidone 6 MG tablet 6 mg PO QHS acetaminophen 500 mg tablet 500 mg PO Q6H PRN (Reason: pain) levothyroxine 200 mcg tablet 200 mcg PO QHS cholecalciferol (vitamin D3) 25 mcg (1,000 unit) tablet 50 mcg PO DAILY escitalopram oxalate 10 mg Tablet 10 mg PO DAILY Qty: 0 0RF quetiapine 100 mg tablet 50 mg PO QHS triamcinolone acetonide 0.1 % cream 1 applic topical Q8 PRN (Reason: itching) pantoprazole [Protonix] 40 mg tablet,delayed release (DR/EC) 40 mg PO BID albuterol sulfate 90 mcg/actuation HFA aerosol inhaler 2 puff inhalation Q4H PRN (Reason: shortness of breath or wheezing) furosemide [Lasix] 40 mg tablet 40 mg PO DAILY Qty: 90 0RF bisacodyl 10 mg suppository 10 mg [place] DAILY PRN (Reason: constipation) (DME) CPAP - Continuous Positive Airway Pressure([facility] INFORMATIONAL USE ONLY) 0 .ROUTE .MEDSUPPLY Patient Comments: [id number] quetiapine 50 mg tablet 50 mg PO QHS albuterol sulfate 90 mcg/actuation HFA aerosol inhaler 2 inh inhalation Q4H PRN (Reason: wheezing) Referrals / Follow Up: Panda Mota MD [Primary Care Provider, [facility]] Disposition Disposition (needs filled in before D/C Order can be placed): Half-Way Facility Charges/Coding Visit Charges Inpatient E&M: 06554 Disch Hosp >30min
== END 2025-03-02 14:21 | disposition skilled nursing facility (03) | DRG 71 ==
LOC: ED 12:44 → MS3 13:27 → ICU 23:22
PROVIDERS: Family Medicine; Internal Medicine Critical Care Medicine; Admitting Provider Family Medicine; Emergency Provider Student in an Organized Health Care Education/Training Program; PCP Family Medicine; Visit Provider Family Medicine
DX: G93.41 Metabolic encephalopathy (principal); I50.32 Chronic diastolic (congestive) heart failure; N17.9 Acute kidney failure, unspecified; Z68.43 Body mass index [BMI] 50.0-59.9, adult; Z66 Do not resuscitate; I11.0 Hypertensive heart disease with heart failure; F20.9 Schizophrenia, unspecified; G40.909 Epilepsy, unspecified, not intractable, without status epilepticus; E11.9 Type 2 diabetes mellitus without complications; E03.9 Hypothyroidism, unspecified; E66.01 Morbid (severe) obesity due to excess calories; F41.9 Anxiety disorder, unspecified; K21.9 Gastro-esophageal reflux disease without esophagitis; G47.33 Obstructive sleep apnea (adult) (pediatric); H40.9 Unspecified glaucoma; Z86.73 Personal history of transient ischemic attack (TIA), and cerebral infarction without residual deficits; Z79.51 Long term (current) use of inhaled steroids; Z79.899 Other long term (current) drug therapy; Z86.718 Personal history of other venous thrombosis and embolism
CPT/HCPCS: 36415; 36600; 51702; 70450; 70553; 71045; 71250; 74176; 80048; 80053; 80184; 80307; 81001; 82077; 82140; 82803; 83605; 83880; 84145; 84439; 84443; 84481; 84484; 85025; 87086; 87631; 87633; 93005; 94002; 94660; 94762; 95819; 99285; A9575; J2185; A4216; J1938

== ENCOUNTER → 2025-04-22 04:00 | Outpatient (REF) | payer MEDICARE, MEDICAID, SELFPAY ==
[2025-04-22 09:07] LABS: Hematocrit 25.0 % (37-47); Hemoglobin 8.1 g/dL (12.0-15.0); Immature Granulocytes Count 0.030 X10^3/uL (0.0-0.0); Mean Corp Hgb Conc 32.4 g/dL (32-36); Mean Corpuscular Volume 102.9 fL (81-99); Mean Platelet Vol. 9.8 fl (6.2-12.0); NRBC Flagged by Analyzer 1.0 % (0-5); POSITIVE DIFFERENTIAL YES; POSITIVE MORPHOLOGY YES; Platelet Count 152 K/mm3 (150-450); RBC Distribution Width CV 19.1 % (11.6-14.6); RBC Distribution Width SD 70.9 fl (35.1-43.9); Red Blood Count 2.43 M/mm3 (4.2-5.4); White Blood Count 2.9 K/mm3 (4.4-11.0)
[2025-04-22 09:56] LABS: Differential Indicated SCAN CRITERIA MET
[2025-04-22 09:59] LABS: Anisocytosis 1+
== END ==
LOC: OLS.WCC 04:00
PROVIDERS: PCP Family Medicine; Referring Provider Family Medicine; Visit Provider Family Medicine
DX: I50.9 Heart failure, unspecified (principal); J44.9 Chronic obstructive pulmonary disease, unspecified; Z79.899 Other long term (current) drug therapy
CPT/HCPCS: 36415; 85025

== ENCOUNTER → 2025-04-23 05:00 | Outpatient (REF) | payer MEDICARE, MEDICAID, SELFPAY ==
[2025-04-23 07:42] LABS: Hematocrit 25.6 % (37-47); Hemoglobin 8.4 g/dL (12.0-15.0); Immature Granulocytes Count 0.030 X10^3/uL (0.0-0.0); Mean Corp Hgb Conc 32.8 g/dL (32-36); Mean Corpuscular Volume 102.8 fL (81-99); Mean Platelet Vol. 9.8 fl (6.2-12.0); NRBC Flagged by Analyzer 2.0 % (0-5); POSITIVE MORPHOLOGY YES; Platelet Count 167 K/mm3 (150-450); RBC Distribution Width CV 19.9 % (11.6-14.6); RBC Distribution Width SD 74.5 fl (35.1-43.9); Red Blood Count 2.49 M/mm3 (4.2-5.4); White Blood Count 5.5 K/mm3 (4.4-11.0)
[2025-04-23 07:47] LABS: Differential Indicated SCAN CRITERIA MET
[2025-04-23 08:02] LABS: Anion Gap 11 (5-15); BUN 32 mg/dL (4-19); BUN/Creat Ratio 24.0 RATIO (10-20); Calcium,Total 9.3 mg/dL (7.6-11.0); Carbon Dioxide 30.6 mmol/L (21.0-32.0); Chloride 99 mmol/L (98-108); Glucose 95 mg/dL (70-99); Potassium 4.4 mmol/L (3.3-5.1); Pro- Brain NATRIURETIC PEPTIDE 266 pg/mL (<=1800)
[2025-04-23 08:09] LABS: Anisocytosis 1+; Basophilic Stippling 1+
== END ==
LOC: OLS.WCC 05:00
PROVIDERS: PCP Family Medicine; Visit Provider Family Medicine
DX: I10 Essential (primary) hypertension (principal); I67.9 Cerebrovascular disease, unspecified
CPT/HCPCS: 36415; 80048; 83880; 85025